=== PATIENT | male | born 1970 | race Caucasian/White ===

== ENCOUNTER → 2018-01-05 08:31 | Outpatient (POV) | payer MEDICARE, MEDICAID, SELFPAY | PROVIDERS: Visit Provider Nurse Practitioner Acute Care | DX: Z00.00 Encounter for general adult medical examination without abnormal findings (principal) ==

== ENCOUNTER → 2018-07-10 17:23 | Outpatient (CLI) | payer MEDICARE, MEDICAID, SELFPAY ==
[2018-07-10 17:46] LABS: Basophils # 0.1 K/mm3 (0-0.2); Basophils % 0.8 % (0.1-2.0); Eosinophils # 0.1 K/mm3 (0.0-0.4); Eosinophils % 1.6 % (0.1-12.0); Hematocrit 47.6 % (42.0-52.0); Hemoglobin 16.2 g/dL (14.1-18.0); Lymphocytes # 1.3 K/mm3 (0.7-4.5); Lymphocytes % 19.2 % (10-50); Mean Corpuscular Hemoglobin 32.5 pg (27.0-31.2); Mean Corpuscular Volume 95.8 fl (80-94); Mean Platelet Volume 8.1 fl (7.4-10.4); Monocytes # 0.4 K/mm3 (0.1-1.0); Monocytes % 5.1 % (1.7-9.3); Neutrophils # 4.9 K/mm3 (1.8-7.8); Neutrophils % 73.3 % (37.0-80.0); Platelet Count 224 K/mm3 (142-424); Red Blood Count 4.97 M/mm3 (4.60-6.20); Red Cell Distribution Width 12.7 % (11.5-17.5); White Blood Count 6.7 K/mm3 (4.8-10.8)
[2018-07-10 17:56] LABS: Alanine Aminotransferase 89 U/L (12-78); Albumin Level 4.7 gm/dL (3.4-5.0); Albumin/Globulin Ratio 1.2 (1.1-1.8); Alkaline Phosphatase 97 U/L (46-116); Anion Gap 12.8 mEq/L (5-15); Aspartate Amino Transferase 79 U/L (15-37); Bilirubin,Total 0.5 mg/dL (0.2-1.0); Blood Urea Nitrogen 24 mg/dL (7-18); Calcium 9.6 mg/dL (8.5-10.1); Carbon Dioxide 35 mmol/L (21.0-32.0); Chloride 95 mmol/L (98-107); Creatinine,Serum 1.38 mg/dL (0.70-1.30); Estimated Glomerular Filt Rate 55 ml/min (>60); GFR (African American) 67 ML/MIN (>60); Globulin 3.8 gm/dl (1.3-3.2); Glucose 112 mg/dL (74-106); Lipase 67 u/L (73-393); Potassium 3.8 mmoL/L (3.5-5.1); Sodium 139 mmol/L (136-145); Total Protein,Serum 8.5 gm/dL (6.4-8.2)
== END ==
PROVIDERS: Visit Provider Emergency Medicine
DX: B17.9 Acute viral hepatitis, unspecified (principal); K21.9 Gastro-esophageal reflux disease without esophagitis; M19.90 Unspecified osteoarthritis, unspecified site
CPT/HCPCS: 80053; 83690; 85025

== ENCOUNTER → 2018-07-21 08:24 | Outpatient (CLI) | payer MEDICARE, MEDICAID, SELFPAY ==
--- NOTE | 2018-07-21 08:27 | US_ITS ---
US gallbladder HISTORY: Vomiting and abdominal pain ITS.REASON: nausea ORDERING PHYSICIAN: Koffi Daniels MD PATIENT AGE: 48 years Comparison: None FINDINGS: There is moderate distention of the stomach. PANCREAS: Unremarkable. No obvious mass or abnormal fluid collection. No ductal dilatation LIVER: No focal liver lesions demonstrated. Homogeneous echogenicity. No intrahepatic biliary ductal dilatation evident RIGHT KIDNEY: Unremarkable. Normal size and echogenicity. No hydronephrosis GALLBLADDER: The gallbladder is small with mild thickening of the gallbladder wall at 3 mm. No obvious stones. There is questionable pericholecystic fluid. Common bile duct is normal at 3 mm. IMPRESSION: 1. Gastric distention 2. Contracted gallbladder with mildly thickened wall.
== END ==
PROVIDERS: PCP Emergency Medicine; Visit Provider Emergency Medicine
DX: R11.2 Nausea with vomiting, unspecified (principal)
CPT/HCPCS: 76705

== ENCOUNTER 2018-09-27 09:40 | Inpatient (IN) ==
--- NOTE | 2018-09-27 10:05 | Emergency Department Note ---
ED Disposition Clinical Impression: Jaundice, Hepatitis C, Acute hepatitis Disposition: Admitted as Observation Condition on Discharge: Fair Instructions: Hepatitis C Additional Instructions: See Dr. Evelio wiley in his office to discuss new findings related to your hepatitis c Prescriptions: Ondansetron HCl [Zofran 8mg Tab] 8 mg PO TID 3 Days #10 tab Referrals: Provider,Referral, [Referring] - Time of Disposition: 13:22 - Critical Care Critical Care Time: No Attestation: On 09/27/18, the high probability of a clinically significant, sudden or life threatening deterioration of the following system(s) required my full and direct attention, intervention and personal management. The time I documented below is in addition to time spent performing reported procedures but includes the following listed in this critical care notation. Medical Decision Making - Medical Records Medical records reviewed: Yes: I reviewed the patient's medical records. - Krishna Inquiry Pt receiving controlled substance: No Krishna was queried for this patient: No Vital Signs: 09/27/18 09:41 09/27/18 11:41 09/27/18 13:18 Temperature 97.8 F Temperature Source Oral Pulse Rate [Left Radial] 49 L 46 L 43 L Respiratory Rate 16 Blood Pressure [Right Arm] 119/67 139/72 117/67 Blood Pressure Mean [Right Arm] 84 94 83 Blood Pressure Source [Right Arm] Automatic Cuff Blood Pressure Position [Right Arm] Sitting 02 Sat by Pulse Oximetry 99 99 98 Oxygen Delivery Method Room Air - Lab Data Lab results reviewed: Yes: I reviewed the patient's lab results. Lab Results 09/27/18 10:02: WBC 8.3, RBC 4.19 L, Hgb 13.1 L, Hct 41.2 L, MCV 98.3 H, MCH 31.1, MCHC 31.7 L, RDW 16.7, Plt Count 305, MPV 7.9, Neut % (Auto) 55.6, Lymph % (Auto) 28.3, [place] % (Auto) 11.4 H, Eos % (Auto) 3.7, Baso % (Auto) 1.0, Neut # (Auto) 4.6, Lymph # (Auto) 2.4, [place] # (Auto) 1.0, Eos # (Auto) 0.3, Baso # (Auto) 0.1 09/27/18 10:02: Sodium 139, Potassium 4.7, Chloride 108 H, Carbon Dioxide 20 L, Anion Gap 15.7 H, BUN 19 H, Creatinine 1.00, Estimated Creat Clear 82, Estimated GFR 80, Est GFR ( Amer) 97, Glucose 103, Calcium 8.2 L, Total Bilirubin 15.5 H*, AST 1366 H*, ALT 2188 H*, Alkaline Phosphatase 109, Total Protein 6.8, Albumin 2.9 L, Globulin 3.9 H, Albumin/Globulin Ratio 0.7 L, Amylase 65, Lipase 247 Result diagrams: 09/27/18 10:02 09/27/18 10:02 Orders (Tests/Meds): ED MEDICATIONS Discontinued Medications Generic Name Dose Route Start Last Admin Trade Name Freq PRN Reason Stop Dose Admin Sodium Chloride 1,000 mls @ 2,000 mls/hr 09/27/18 10:00 09/27/18 10:24 Sod Chlor 0.9% 1000ml Bag IV 09/27/18 10:29 2,000 mls/hr .Q30M AUGUST Administration Ioversol 75 ml 09/27/18 12:37 09/27/18 12:38 Rad-Optiray 350 100ml Vial IV 09/27/18 12:38 75 ml ONCE ONE Administration Protocol Methylprednisolone Sodium Succinate 125 mg 09/27/18 13:21 09/27/18 13:26 Solu-Medrol 125mg/2ml Vial IV 09/27/18 13:22 125 mg ONCE ONE Administration Ondansetron HCl 4 mg 09/27/18 10:00 09/27/18 10:24 Zofran 4mg/2ml Vial IV 09/27/18 10:01 4 mg ONCE ONE Administration Sodium Chloride 10 ml 09/27/18 12:37 09/27/18 12:38 Rad-Saline Flush 10ml Syringe IV 09/27/18 12:38 10 ml ONCE ONE Administration ORDERS Category Date Time Status Hep A Ab, Total Stat Lab 09/27/18 10:02 Received - Physician Consults Physician Consulted: evelio Time: 13:38 Reason -: Admission - Reevaluation(s) Time: 13:25 Reevaluation #1: no nausea nor pain. "ready to go home". lfts and bilirubin are elevated, no obstructive changes seen on CT General Adult HPI - General Chief complaint: Nausea/Vomiting/Diarrhea Stated complaint: n/v Time Seen by Provider: 09/27/18 10:02 Mode of Arrival: EMS Source of Information: Patient Limitations: No Limitations Description of Symptoms (Recalled from ER Triage Doc. by RN): c/o nausea and vomiting last night. States he was suppose to f/u with Evelio for his gallbladder to be taken out. States he went to senior care and was unable to get this done. - History of Present Illness HPI narrative: n/v all night he states. History of hepatitis C, ? no specialist care yet. - Related Data Home Medications Medication Instructions Recorded Confirmed Atorvastatin Calcium [Atorvastatin 40 mg PO HS 12/11/17 08/18/18 40mg Tab] Escitalopram Oxalate [Lexapro] 10 mg PO DAILY 12/11/17 08/18/18 Fluticasone Propionate [Flovent 50 mcg IH DAILY 12/11/17 08/18/18 Diskus] Fluticasone/Vilanterol [Breo 1 each IH DAILY 12/11/17 08/18/18 Ellipta 100-25 Mcg INH] Phenytoin Sodium Extended 200 mg PO BID 12/11/17 08/18/18 [Phenytek] Ropinirole HCl 1 mg PO HS 12/11/17 08/18/18 buprenorphine 8 mg-naloxone 2 mg 1 tab SUBLINGUAL BID tab 07/10/18 08/18/18 sublingual tablet fluticasone furoate 200 1 inh INHALATION DAILY 08/15/18 08/18/18 mcg-vilanterol 25 mcg/dose inhalation powder Diclofenac Sodium [Voltaren 100gm 2 g TOPICAL QID 08/18/18 08/18/18 Topical Gel] Dicyclomine HCl [Bentyl 10mg 10 mg PO BID 08/18/18 08/18/18 capsule] Previous Rx's Medication Instructions Recorded Ondansetron [Zofran 4mg ODT] 4 mg PO Q8HP PRN #20 tab.rapdis 06/23/18 buspirone 30 mg tablet 30 mg PO BID #180 tab 07/21/18 esomeprazole magnesium 40 mg 40 mg PO DAILY #30 cap 08/19/18 capsule,delayed release mometasone 50 mcg/actuation nasal 2 spray INTRANASAL DAILY #17 g 08/19/18 spray quetiapine ER 50 mg 50 mg PO HS #30 tab 08/19/18 tablet,extended release 24 hr Ondansetron HCl [Zofran 8mg Tab] 8 mg PO TID 3 Days #10 tab 09/27/18 Allergies Allergy/AdvReac Type Severity Reaction Status Date / Time fluoxetine [From Prozac] Allergy Verified 08/15/18 09:11 [facility] History - Hepatitis A Screen Drug use history?: No High risk sexual behaviors?: No History of sexually transmitted infection?: No Currently employed?: No Childcare worker?: No Do you have indoor plumbing?: Yes Do you have electricity?: Yes Attestation statement:: This patient has been screened for Hepatitis A risk factors. I have reviewed the patient's past medical history: Yes 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: Reports:: Anxiety, Chronic Obstructive Pulmonary Disease (COPD), Depression, Seizures Denies:: Cancer, Diabetes Mellitus Type 1, Diabetes Mellitus Type 2, Hypertension, MRSA Other 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: Reports: Arthritis Laterality Cases: Right: Arthroscopy Knee, Bilateral: Arthroscopy Shoulder Other Surgeries: Yes: Other Amputation: No Fractures: Yes - 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 Smoking Status: Current every day smoker Tobacco Type: cigarettes # Packs/Day (cigarettes): 1 Alcohol Intake: never Substance Use Type: marijuana, former substance user, methamphetamine Occupational Status: disabled Housing: house - Psychiatric History Expresses thoughts of harming self/others: None Suicide Plan Description: No Plan Pschychiatric History:: Reports:: Anxiety, Depression Family Hx:: Cancer ROS Obtained: Yes All systems reviewed & no additional complaints - Constitutional Constitutional: Reports chills, Reports fever(s) - Cardiovascular Cardiovascular: Denies chest pain, Denies chest pain at rest, Denies diaphoresis, Denies dyspnea - Respiratory Respiratory: No chest congestion, No cough, No dyspnea on exertion - Gastrointestinal Gastrointestingal: Reports: abdominal pain, nausea, vomiting. Denies: diarrhea - Genitourinary Male Genitourinary: Denies flank pain, Denies hematuria - Musculoskeletal Musculoskeletal: Denies joint pain, Denies joint stiffness, Denies joint swelling - Integumentary/Breasts Skin/Breast: Denies rash, Denies skin pain - Neurologic Neurologic: Denies abnormal speech, Denies confusion - Hematologic/Lymphatic Henatologic/Lymphatic: Denies easy bleeding, Denies easy bruising Physical Exam - General General appearance: alert, in no apparent distress - Head Head exam: atraumatic, normocephalic, normal inspection - Eye Eye exam: Present: jaundice - ENT ENT exam: Present: normal exam, normal oropharynx, mucous membranes moist, TM's normal bilaterally, normal external ear exam - Neck Neck exam: Present: normal inspection, full ROM, trachea midline. Absent: meningismus, lymphadenopathy - Chest Chest inspection: Present: normal inspection, symmetric chest wall rise. Absent: tenderness - Respiratory Respiratory exam: Present: normal lung sounds bilaterally. Absent: respiratory distress - Cardiovascular Cardiovascular exam: Present: regular rate, normal rhythm. Absent: JVD - Abdominal Exam Abdominal exam: Present: soft, tenderness. Absent: distention, hernia Abdominal tenderness: Present: diffuse, mild - Extremities Exam Extremities exam: Present: normal inspection, full ROM, normal capillary refill. Absent: calf tenderness - Back Exam Back exam: Present: normal inspection. Absent: tenderness - Neurological Exam Neurological exam: Present: alert, oriented X3 - Psychiatric Psychiatric exam: Present: normal affect, normal mood - Skin Skin exam: Present: other (skin without lesions, sclera are icteric)
[2018-09-27 10:11] LABS: Basophils # 0.1 K/mm3 (0-0.2); Eosinophils # 0.3 K/mm3 (0.0-0.4); Eosinophils % 3.7 % (0.1-12.0); Hematocrit 41.2 % (42.0-52.0); Hemoglobin 13.1 g/dL (14.1-18.0); Lymphocytes # 2.4 K/mm3 (0.7-4.5); Lymphocytes % 28.3 % (10-50); Mean Corpuscular HGB Conc 31.7 g/dL (31.8-35.4); Mean Corpuscular Hemoglobin 31.1 pg (27.0-31.2); Mean Corpuscular Volume 98.3 fl (80-94); Mean Platelet Volume 7.9 fl (7.4-10.4); Monocytes % 11.4 % (1.7-9.3); Neutrophils # 4.6 K/mm3 (1.8-7.8); Neutrophils % 55.6 % (37.0-80.0); Platelet Count 305 K/mm3 (142-424); Red Blood Count 4.19 M/mm3 (4.60-6.20); Red Cell Distribution Width 16.7 % (11.5-17.5); White Blood Count 8.3 K/mm3 (4.8-10.8)
[2018-09-27 10:26] LABS: Albumin Level 2.9 gm/dL (3.4-5.0); Albumin/Globulin Ratio 0.7 (1.1-1.8); Anion Gap 15.7 mEq/L (5-15); Bilirubin,Total 15.5 mg/dL (0.2-1.0); Calcium 8.2 mg/dL (8.5-10.1); Globulin 3.9 gm/dl (1.3-3.2); Total Protein,Serum 6.8 gm/dL (6.4-8.2)
[2018-09-27 10:37] LABS: Potassium 4.7 mmoL/L (3.5-5.1)
--- NOTE | 2018-09-27 14:49 | Pharmacy Consult Notes ---
[facility] VTE Monitoring - Patient Demographics Admission date: 09/27/18 Report Date: 09/27/18 Time: 14:48 Allergies/Adverse Reactions: Patient Allergies fluoxetine [From Prozac] Allergy (Verified 08/15/18 09:11) Height: 1.68 m Weight: 61.774 kg Patient Problems: Current Active Problems (Updated 09/27/18 @ 13:37 by Koffi Gordillo MD) Acute hepatitis (Acute) Jaundice (Acute) Hepatitis C (Acute) - VTE Risk Labs: VTE Related Lab Results Hgb 13.1 g/dL (14.1-18.0) L 09/27/18 10:02 Hct 41.2 % (42.0-52.0) L 09/27/18 10:02 Plt Count 305 K/mm3 (142-424) 09/27/18 10:02 BUN 19 mg/dL (7-18) H 09/27/18 10:02 Creatinine 1.00 mg/dL (0.70-1.30) 09/27/18 10:02 Estimated Creat Clear 82 mL/min (50-200) 09/27/18 10:02 Was VTE Risk Assessment Performed: No VTE Score: 1 VTE Risk Level: Very Low Risk - Prophylaxis VTE Prophylaxis Ordered?: Yes Types of VTE Prophylaxis: TEDS Knee High Location of Applied Device: Bilateral Lower Extremeties
--- NOTE | 2018-09-27 20:20 | History & Physical Report ---
*Admission Date: 09/27/18 *Chief complaint: vomiting *History of present illness: this pt presented to the ed with hx of n/v with hx of hep a in past - pt also with hx of gb disease- o nausea and vomiting last night. States he was suppose to f/u with Jeremiah for his gallbladder to be taken out. States he went to snf and was unable to get this done.pt was found to have marked elevated lft and abn ct [facility] History I have reviewed the patient's past medical history: Yes 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: Reports:: Anxiety, Chronic Obstructive Pulmonary Disease (COPD), Depression, Seizures Denies:: Cancer, Diabetes Mellitus Type 1, Diabetes Mellitus Type 2, Hypertension, MRSA *Have you ever received a pneumonia vaccine?: No *Have you received a flu vaccine this season?: No Other 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: Reports: Arthritis Laterality Cases: Right: Arthroscopy Knee, Bilateral: Arthroscopy Shoulder Other Surgeries: Yes: Other Amputation: No Fractures: Yes (nose) - *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 Educational Level: Completed High School Smoking Status: Current every day smoker Tobacco Type: cigarettes # Packs/Day (cigarettes): 1 Alcohol Intake: never Substance Use Type: marijuana, former substance user, methamphetamine *Occupational Status:: disabled Housing: apartment Household Members: none *Travel in the last 8 weeks: None - Psychiatric History Expresses thoughts of harming self/others: None Suicide Plan Description: No Plan Pschychiatric History:: Reports:: Anxiety, Depression Family Hx:: Cancer Review of Systems - Review of Systems Review of systems:: pertinent systems reviewed and negative unless documented below - Constitutional Denies fever(s) - Eyes Denies change in vision - ENT Denies sore throat - *Cardiovascular Denies chest pain at rest - *Respiratory Denies cough - *Gastrointestinal Reports abdominal pain, Reports nausea, Reports vomiting - *Genitourinary Denies blood in urine - *Musculoskeletal Denies joint pain - Integumentary/Breasts Denies rash - *Neurologic Denies abnormal speech, Denies confusion Meds Home Medications Medication Instructions Recorded Confirmed Type Atorvastatin Calcium [Atorvastatin 40 mg PO HS 12/11/17 09/27/18 History 40mg Tab] Escitalopram Oxalate [Lexapro] 10 mg PO DAILY 12/11/17 09/27/18 History Fluticasone Propionate [Flovent 50 mcg IH DAILY 12/11/17 09/27/18 History Diskus] Phenytoin Sodium Extended 200 mg PO BID 12/11/17 09/27/18 History [Phenytek] Ropinirole HCl 1 mg PO HS 12/11/17 09/27/18 History Ondansetron [Zofran 4mg ODT] 4 mg PO Q8HP PRN #20 tab.rapdis 06/23/18 09/27/18 Rx buspirone 30 mg tablet 30 mg PO BID #180 tab 07/21/18 09/27/18 Rx fluticasone furoate 200 1 inh INHALATION DAILY 08/15/18 09/27/18 History mcg-vilanterol 25 mcg/dose inhalation powder Diclofenac Sodium [Voltaren 100gm 2 g TOPICAL QID 08/18/18 09/27/18 History Topical Gel] Dicyclomine HCl [Bentyl 10mg 10 mg PO BID 08/18/18 09/27/18 History capsule] esomeprazole magnesium 40 mg 40 mg PO DAILY #30 cap 08/19/18 09/27/18 Rx capsule,delayed release quetiapine ER 50 mg 50 mg PO HS #30 tab 08/19/18 09/27/18 Rx tablet,extended release 24 hr Mometasone Furoate [Nasonex] 2 spray INTRANASAL DAILY 09/27/18 09/27/18 History Allergies Allergy/AdvReac Type Severity Reaction Status Date / Time fluoxetine [From [facility]] Allergy Verified 08/15/18 09:11 Exam Vital signs and Labs for Last 24 Hours: Temp Pulse Resp BP Pulse Ox 97.9 F 41 L 18 114/56 L 97 09/27/18 19:44 09/27/18 19:44 09/27/18 19:44 09/27/18 19:44 09/27/18 19:44 Laboratory Results - last 24 hr 09/27/18 10:02: WBC 8.3, RBC 4.19 L, Hgb 13.1 L, Hct 41.2 L, MCV 98.3 H, MCH 31.1, MCHC 31.7 L, RDW 16.7, Plt Count 305, MPV 7.9, Neut % (Auto) 55.6, Lymph % (Auto) 28.3, [place] % (Auto) 11.4 H, Eos % (Auto) 3.7, Baso % (Auto) 1.0, Neut # (Auto) 4.6, Lymph # (Auto) 2.4, [place] # (Auto) 1.0, Eos # (Auto) 0.3, Baso # (Auto) 0.1 09/27/18 10:02: Sodium 139, Potassium 4.7, Chloride 108 H, Carbon Dioxide 20 L, Anion Gap 15.7 H, BUN 19 H, Creatinine 1.00, Estimated Creat Clear 82, Estimated GFR 80, Est GFR ( Amer) 97, Glucose 103, Calcium 8.2 L, Total Bilirubin 15.5 H*, AST 1366 H*, ALT 2188 H*, Alkaline Phosphatase 109, Total Protein 6.8, Albumin 2.9 L, Globulin 3.9 H, Albumin/Globulin Ratio 0.7 L, Amylase 65, Lipase 247 I & O for Last 24 hours: Intake & Output 09/25/18 09/26/18 09/27/18 09/28/18 11:59 11:59 11:59 11:59 Intake Total 1244 / 1244 Balance 1244 / 1244 Weight 138 lb 136 lb 3 oz - Constitutional no acute distress - *Routine HEENT Exam Head: Present: normocephalic Eye: Present: EOMI, PERRL, conjunctival icterus ENT: Present: mucous membranes dry - *Routine Neck Exam Absent: JVD - *Routine Respiratory Exam Present: CTA bilaterally - *Routine Cardiovascular Exam Present: RRR. Absent: murmur - *Routine Abdominal Exam Present: soft, tenderness. Absent: organomegaly - *Routine Extremities Exam Present: full ROM - *Routine Skin Exam Present: intact - *Routine Neurological Exam Present: alert, oriented X3, CN II-XII intact, moving all extremities. Absent: sensory deficit, motor deficit, asterixis - Routine Psychiatric Exam Present: normal affect Assessment and Plan (1) Acute hepatitis Current visit: Yes Status: Acute Category: Medical Code(s): B17.9 - Acute viral hepatitis, unspecified (2) Tobacco use Current visit: Yes Status: Acute Category: Medical Code(s): Z72.0 - Tobacco use
[2018-09-28 06:28] LABS: Basophils % 0.2 % (0.1-2.0); Eosinophils % 0.2 % (0.1-12.0); Hematocrit 41.5 % (42.0-52.0); Hemoglobin 12.9 g/dL (14.1-18.0); Lymphocytes # 0.8 K/mm3 (0.7-4.5); Lymphocytes % 10.4 % (10-50); Mean Corpuscular Hemoglobin 30.9 pg (27.0-31.2); Mean Corpuscular Volume 99.6 fl (80-94); Mean Platelet Volume 8.1 fl (7.4-10.4); Monocytes # 0.3 K/mm3 (0.1-1.0); Monocytes % 3.9 % (1.7-9.3); Neutrophils # 6.9 K/mm3 (1.8-7.8); Neutrophils % 85.4 % (37.0-80.0); Platelet Count 271 K/mm3 (142-424); Red Blood Count 4.17 M/mm3 (4.60-6.20)
[2018-09-28 07:06] LABS: Albumin Level 2.4 gm/dL (3.4-5.0); Bilirubin,Direct 9.6 mg/dL (0.0-0.2); Bilirubin,Indirect 2.5 mg/dL (0.0-0.9); Bilirubin,Total 12.1 mg/dL (0.2-1.0); Total Protein,Serum 6.1 gm/dL (6.4-8.2)
[2018-09-28 09:13] LABS: Anisocytosis 1+; Lymphocytes % 7 % (10-50); Macrocytosis 2+; Monocytes % 3 % (2-9); Neutrophils % 88 % (42-76); Total Cells Counted 100
--- NOTE | 2018-09-28 15:20 | Progress Note ---
Internal Medicine - PN: Subj *Date: 09/28/18 *Time: 20:35 Interval history: doing better - u/s og gb today - uncertain as to etiology - Exam Vital signs and Labs for Last 24 Hours: Temp Pulse Resp BP Pulse Ox 97.9 F 40 L 16 107/45 L 98 09/28/18 08:00 09/28/18 08:00 09/28/18 08:00 09/28/18 08:00 09/28/18 08:00 Laboratory Results - last 24 hr 09/28/18 06:00: WBC 8.0, RBC 4.17 L, Hgb 12.9 L, Hct 41.5 L, MCV 99.6 H, MCH 30.9, MCHC 31.0 L, RDW 17.0, Plt Count 271, MPV 8.1, Neut % (Auto) 85.4 H, Lymph % (Auto) 10.4, [place] % (Auto) 3.9, Eos % (Auto) 0.2, Baso % (Auto) 0.2, Neut # (Auto) 6.9, Lymph # (Auto) 0.8, [place] # (Auto) 0.3, Eos # (Auto) 0.0, Baso # (Auto) 0.0, Total Counted 100, Neutrophils % (Manual) 88 H, Band Neutrophils % 2.0, Lymphocytes % (Manual) 7 L, Monocytes % (Manual) 3, Platelet Estimate Clumped, Anisocytosis 1+, Macrocytosis 2+ 09/28/18 06:00: Sodium 141, Potassium 4.0, Chloride 111 H, Carbon Dioxide 17 L, Anion Gap 17.0 H, BUN 14 D, Creatinine 1.01, Estimated Creat Clear 82, Estimated GFR 80, Est GFR ( Amer) 96, Glucose 176 H D, Calcium 8.0 L, Total Bilirubin 12.1 H*, Direct Bilirubin 9.6 H, Indirect Bilirubin 2.5 H, AST 693 H* D, ALT 1553 H*, Alkaline Phosphatase 80, Total Protein 6.1 L, Albumin 2.4 L D I & O for Last 24 hours: Intake & Output 09/26/18 09/27/18 09/28/18 09/29/18 11:59 11:59 11:59 11:59 Intake Total 3784 / 3784 720 / 720 Output Total 500 / 500 Balance 3284 / 3284 720 / 720 Weight 138 lb 140 lb 1 oz - Constitutional no acute distress, thin - *Routine HEENT Exam Head: Present: normocephalic Eye: Present: EOMI, PERRL, conjunctival icterus ENT: Present: mucous membranes dry - *Routine Neck Exam Absent: JVD - *Routine Respiratory Exam Absent: respiratory distress - *Routine Cardiovascular Exam Present: RRR - *Routine Abdominal Exam Present: soft - *Routine Extremities Exam Present: full ROM - *Routine Skin Exam Present: intact - *Routine Neurological Exam Present: alert, oriented X3, CN II-XII intact - Routine Psychiatric Exam Present: normal affect Assessment and Plan (1) Acute hepatitis Current visit: Yes Status: Acute Category: Medical Code(s): B17.9 - Acute viral hepatitis, unspecified (2) Tobacco use Current visit: Yes Status: Acute Category: Medical Code(s): Z72.0 - Tobacco use
--- NOTE | 2018-09-28 15:41 | Procedure Note ---
[facility] Procedure Note Procedure Note:: Gastroenterology Consultation Date of Service-September 28, 2018 History of Present Illness: Mr. Clifton is a 48-year-old gentleman with the onset of jaundice over the last couple of months. He reports icteric sclera, darkened urine and acholic stools. The patient also reports more recent nausea, low-grade fever and fatigue. The patient reports no recent IV drug use. He formerly used methamphetamines. He reports no alcohol use in years. He eats at home and reports no family history of recent viral illness or hepatitis A. The patient does report some weight loss and headaches. He has lost some weight. He was admitted due to jaundice and hepatitis. His ALT level was 2188 with AST 1366. These did decline since yesterday. He does take Advil. His total bilirubin was 15.5. He reports no recent overuse of Tylenol. The patient did have some abdominal discomfort but none presently. The patient did have a CT scan of the abdomen and pelvis that showed mild periportal edema with mild fluid in the gallbladder fossa and nondistended fluid-filled loops of small bowel. Past 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: 1. Anxiety/depression 2. Seizure disorder 3. GERD 4. Hyperlipidemia 5. Tobacco abuse with early COPD Past 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: 1. Knee arthroscopy 2. Shoulder arthroscopy Medications: 1. Atorvastatin 2. Lexapro 3. Phenytoin 4. Buspirone 5. Ropinirole 6. Fluticasone 7. Diclofenac 8. Bentyl 9. Esomeprazole ALLERGIES: Fluoxetine 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: The patient lives in [place]. He is single. He reports no alcohol but smokes 1 pack of cigarettes daily Family History: Noncontributory Review of Systems: See chart Physical Exam: Physical Examination: Gen.: The patient is a well-developed well-nourished individual in no acute distress HEENT: Moderately icteric sclera, normocephalic/atraumatic extraocular movements are intact Neck: Supple no lymphadenopathy Chest: Clear to auscultation Cardiovascular: Regular rate and rhythm Abdomen: Normoactive bowel sounds soft, liver firm and palpable but not enlarged, mild right upper quadrant tenderness with no masses Extremities: No edema Labs: AST 1366, ALT 2188, total bilirubin 15.5, albumin 2.9, amylase 65, lipase 247 Radiology: See CAT scan report above Impression/Plan: 1. Acute hepatitis/acute hepatocellular injury with jaundice. I do suspect acute viral hepatitis and it will be important to check viral serologies. This is suspicious for hepatitis A. At the onset of jaundice, the patient is no longer infectious. It is important to make sure that the total bilirubin declines and is not progressed towards liver failure. There can be slow resolution of her 6 to 8 weeks and there can also be reactivation at 5 to 6 months. After this, the injury will resolve. It is important to avoid NSAIDs and only use very low-dose Tylenol. He is already avoiding alcohol. I would like to make sure that he does not over ingest Tylenol. If the hepatocellular injury fails to resolve, he will need biopsy. I will have him follow-up in the office in the next couple of weeks.
[2018-09-29 07:23] LABS: Basophils % 0.1 % (0.1-2.0); Eosinophils % 0.4 % (0.1-12.0); Hematocrit 35.8 % (42.0-52.0); Hemoglobin 11.1 g/dL (14.1-18.0); Lymphocytes # 1.9 K/mm3 (0.7-4.5); Lymphocytes % 21.4 % (10-50); Mean Corpuscular Hemoglobin 30.9 pg (27.0-31.2); Mean Corpuscular Volume 99.8 fl (80-94); Mean Platelet Volume 8.3 fl (7.4-10.4); Monocytes # 0.6 K/mm3 (0.1-1.0); Monocytes % 7.2 % (1.7-9.3); Neutrophils # 6.3 K/mm3 (1.8-7.8); Platelet Count 284 K/mm3 (142-424); Red Blood Count 3.59 M/mm3 (4.60-6.20); Red Cell Distribution Width 17.5 % (11.5-17.5); White Blood Count 8.9 K/mm3 (4.8-10.8)
[2018-09-29 08:00] LABS: Albumin Level 2.2 gm/dL (3.4-5.0); Anion Gap 12.3 mEq/L (5-15); Bilirubin,Direct 7.1 mg/dL (0.0-0.2); Bilirubin,Indirect 1.5 mg/dL (0.0-0.9); Bilirubin,Total 8.6 mg/dL (0.2-1.0); Calcium 7.3 mg/dL (8.5-10.1); Potassium 4.3 mmoL/L (3.5-5.1); Total Protein,Serum 5.4 gm/dL (6.4-8.2)
[2018-09-29 08:23] LABS: Hepatitis B Core Antibody IgM Positive (Negative)
--- NOTE | 2018-09-29 08:53 | Discharge Summary ---
General - General Admission date:: 09/27/18 Discharge date: 09/29/18 HPI HPI: this pt presented to the ed with hx of n/v with hx of hep a in past - pt also with hx of gb disease- o nausea and vomiting last night. States he was suppose to f/u with [facility] for his gallbladder to be taken out. States he went to skilled nursing and was unable to get this done.pt was found to have marked elevated lft and abn ct Hospital Course Hospital Course: Patient admitted for elevated liver enzymes. 09/27/18- 09/28/18 09/29/18 Total bili 15.5 12.1 8.6 alt- 2188 1533 1184 ast- 1366 693 374 Was seen by Gi-Impression/Plan: 1. Acute hepatitis/acute hepatocellular injury with jaundice. I do suspect acute viral hepatitis and it will be important to check viral serologies. This is suspicious for hepatitis A. At the onset of jaundice, the patient is no longer infectious. It is important to make sure that the total bilirubin declines and is not progressed towards liver failure. There can be slow resolution of her 6 to 8 weeks and there can also be reactivation at 5 to 6 months. After this, the injury will resolve. It is important to avoid NSAIDs and only use very low-dose Tylenol. He is already avoiding alcohol. I would like to make sure that he does not over ingest Tylenol. If the hepatocellular injury fails to resolve, he will need biopsy. I will have him follow-up in the office in the next couple of weeks. US gallbladder-IMPRESSION: Mild prominence of the portal vein with a mild amount of perihepatic fluid. Otherwise negative right upper quadrant ultrasound Ct abd/pelvis w contrast-IMPRESSION: 1. Mild periportal edema with a mild amount of fluid in the gallbladder fossa and right paracolic gutter and minimal amount fluid in the pelvis nonspecific. 2. Nondistended fluid-filled loops of small bowel which may be seen with enteritis. Patient received IV fluids, GI consult, monitoring of liver enzymes, hepatitis panel and rest, patient is currently being worked up for hepatitis C through the [facility] echo clinic. Patient's liver enzymes continue to decline. Patient continues to be jaundice. Discussion with patient to avoid NSAIDs and only low doses of Tylenol. Abstain from any alcohol Or any other medications that affect the liver. Patient is to follow-up in the office next week and contact with the echo clinic regarding when to start medication treatment for his hep C after current confirmation of hepatitis. Hepatitis panel was sent out. Today patient states he feels better. Will discharge home. Objective Vital signs: Temp Pulse Resp BP Pulse Ox 98.4 F 44 L 16 91/39 L 98 09/29/18 08:00 09/29/18 08:00 09/29/18 08:00 09/29/18 08:00 09/29/18 08:00 no acute distress - *Routine HEENT Exam Head: Present: normocephalic Eye: Present: conjunctival icterus ENT: Present: mucous membranes moist - *Routine Neck Exam Present: supple, full ROM - *Routine Respiratory Exam Present: CTA bilaterally - *Routine Cardiovascular Exam Present: RRR - *Routine Abdominal Exam Present: soft, normoactive bowel sounds. Absent: tenderness - *Routine Extremities Exam Present: full ROM - *Routine Skin Exam Present: intact, jaundice - *Routine Neurological Exam Present: alert, oriented X3 - Routine Psychiatric Exam Present: normal affect Results Labs on day of discharge: Labs from last 24 hours 09/29/18 09/29/18 09/28/18 07:04 07:04 06:00 WBC 8.9 RBC 3.59 L Hgb 11.1 L Hct 35.8 L MCV 99.8 H MCH 30.9 MCHC 31.0 L RDW 17.5 Plt Count 284 MPV 8.3 Neut % (Auto) 71.0 Lymph % (Auto) 21.4 [place] % (Auto) 7.2 Eos % (Auto) 0.4 Baso % (Auto) 0.1 Neut # (Auto) 6.3 Lymph # (Auto) 1.9 [place] # (Auto) 0.6 Eos # (Auto) 0.0 Baso # (Auto) 0.0 Total Counted 100 Neutrophils % (Manual) 88 H Band Neutrophils % 2.0 Lymphocytes % (Manual) 7 L Monocytes % (Manual) 3 Platelet Estimate Clumped Anisocytosis 1+ Macrocytosis 2+ Sodium 143 Potassium 4.3 Chloride 113 H Carbon Dioxide 22 D Anion Gap 12.3 BUN 15 Creatinine 1.01 Estimated Creat Clear 83 Estimated GFR 80 Est GFR ( Amer) 96 Glucose 139 H Calcium 7.3 L Total Bilirubin 8.6 H Direct Bilirubin 7.1 H Indirect Bilirubin 1.5 H AST 374 H* D ALT 1184 H* Alkaline Phosphatase 86 Total Protein 5.4 L Albumin 2.2 L - Additional Comments Rounded with Dr. Daniels all orders per Jeremiah DS: Diagnosis - Discharge Diagnosis (1) Acute hepatitis Status: Acute (2) Tobacco use Status: Chronic (3) Hepatitis C Status: Chronic (4) Jaundice Status: Acute (5) Elevated liver function tests Status: Acute Discharge Plan - Patient Discharge Instructions ACTIVITY: Continue current activity DIET: continue same diet Patient Instructions: Hepatitis A, DI for Hepatitis C, How to Quit Smoking - Follow up Plan Follow up with: Koffi Daniels MD [Primary Care Provider] - Disposition: Home, Self-Prison Medications: Home Medications Medication Instructions Recorded Confirmed Type Atorvastatin Calcium [Atorvastatin 40 mg PO HS 12/11/17 09/27/18 History 40mg Tab] Escitalopram Oxalate [Lexapro] 10 mg PO DAILY 12/11/17 09/27/18 History Fluticasone Propionate [Flovent 50 mcg IH DAILY 12/11/17 09/27/18 History Diskus] Phenytoin Sodium Extended 200 mg PO BID 12/11/17 09/27/18 History [Phenytek] Ropinirole HCl 1 mg PO HS 12/11/17 09/27/18 History Ondansetron [Zofran 4mg ODT] 4 mg PO Q8HP PRN #20 tab.rapdis 06/23/18 09/27/18 Rx buspirone 30 mg tablet 30 mg PO BID #180 tab 07/21/18 09/27/18 Rx fluticasone furoate 200 1 inh INHALATION DAILY 08/15/18 09/27/18 History mcg-vilanterol 25 mcg/dose inhalation powder Diclofenac Sodium [Voltaren 100gm 2 g TOPICAL QID 08/18/18 09/27/18 History Topical Gel] Dicyclomine HCl [Bentyl 10mg 10 mg PO BID 08/18/18 09/27/18 History capsule] esomeprazole magnesium 40 mg 40 mg PO DAILY #30 cap 08/19/18 09/27/18 Rx capsule,delayed release quetiapine ER 50 mg 50 mg PO HS #30 tab 08/19/18 09/27/18 Rx tablet,extended release 24 hr Mometasone Furoate [Nasonex] 2 spray INTRANASAL DAILY 09/27/18 09/27/18 History Prescriptions/Medication Reconciliation: Continued fluticasone furoate 200 mcg-vilanterol 25 mcg/dose inhalation powder 1 inh INHALATION DAILY quetiapine ER 50 mg tablet,extended release 24 hr 50 mg PO HS #30 tab esomeprazole magnesium 40 mg capsule,delayed release 40 mg PO DAILY #30 cap buspirone 30 mg tablet 30 mg PO BID #180 tab Phenytoin Sodium Extended [Phenytek] 200 mg PO BID Fluticasone Propionate [Flovent Diskus] 50 mcg IH DAILY Diclofenac Sodium [Voltaren 100gm Topical Gel] 2 g TOPICAL QID Ropinirole HCl 1 mg PO HS Escitalopram Oxalate [Lexapro] 10 mg PO DAILY Discontinued Atorvastatin Calcium [Atorvastatin 40mg Tab] 40 mg PO HS Ondansetron [Zofran 4mg ODT] 4 mg PO Q8HP PRN #20 tab.rapdis PRN Reason: Nausea Dicyclomine HCl [Bentyl 10mg capsule] 10 mg PO BID Mometasone Furoate [Nasonex] 2 spray INTRANASAL DAILY
[2018-09-29 09:56] LABS: INR 1.21 (0.9-1.1); Prothrombin Time 12.5 seconds (9.4-11.8)
[2018-09-30 06:25] LABS: Hepatitis B Surface Antigen Positive (Negative); Hepatitis C Antibody >11.0 s/co ratio (0.0-0.9)
== END 2018-09-29 09:45 | disposition home or self-care (01) | DRG 442 ==
LOC: ER 09:40 → 2ND 09:40 → OBSVTOIN 13:40 → 2ND 14:35
PROVIDERS: ADMIT Emergency Medicine; ATTEND Emergency Medicine
CPT/HCPCS: 36415; 74177; 76705; 80048; 80053; 80074; 80076; 80185; 82150; 83690; 85007; 85025; 85610; 86708; 94640; 96365; 96366; 96375; 99284; J2405; Q9967

== ENCOUNTER → 2018-10-07 13:43 | Outpatient (CLI) | payer MEDICARE, MEDICAID, SELFPAY ==
[2018-10-09 11:34] LABS: HIV Screen 4th Generation wRfx Non Reactive (Non Reactive)
[2018-10-09 22:07] LABS: HCV Genotype Charge YES
[2018-10-16 16:09] LABS: HBV Geno CHG YES; HBV IU/mL 3490 IU/mL (.)
[2018-10-16 17:17] LABS: log10 HBV as IU/mL 3.543 (.)
== END ==
PROVIDERS: Internal Medicine Gastroenterology; Visit Provider Emergency Medicine
DX: B18.1 Chronic viral hepatitis B without delta-agent; B19.20 Unspecified viral hepatitis C without hepatic coma; Z11.4 Encounter for screening for human immunodeficiency virus [HIV]
CPT/HCPCS: 36415; 86703; 87517; 87522; 87902; 87912; G0432

== ENCOUNTER → 2018-10-19 09:01 | Outpatient (POV) | payer MEDICARE, MEDICAID, SELFPAY ==
[2018-10-19 11:07] LABS: Basophils # 0.1 K/mm3 (0-0.2); Basophils % 0.8 % (0.1-2.0); Eosinophils # 0.4 K/mm3 (0.0-0.4); Eosinophils % 3.9 % (0.1-12.0); Hemoglobin 14.6 g/dL (14.1-18.0); Lymphocytes # 3.3 K/mm3 (0.7-4.5); Lymphocytes % 31.8 % (10-50); Mean Corpuscular HGB Conc 31.8 g/dL (31.8-35.4); Mean Corpuscular Hemoglobin 33.6 pg (27.0-31.2); Mean Corpuscular Volume 105.7 fl (80-94); Mean Platelet Volume 7.8 fl (7.4-10.4); Monocytes # 0.7 K/mm3 (0.1-1.0); Monocytes % 6.5 % (1.7-9.3); Neutrophils # 5.9 K/mm3 (1.8-7.8); Neutrophils % 57.1 % (37.0-80.0); Platelet Count 205 K/mm3 (142-424); Red Blood Count 4.35 M/mm3 (4.60-6.20); Red Cell Distribution Width 16.1 % (11.5-17.5); White Blood Count 10.3 K/mm3 (4.8-10.8)
[2018-10-19 12:14] LABS: Alanine Aminotransferase 200 U/L (12-78); Albumin Level 4.2 gm/dL (3.4-5.0); Albumin/Globulin Ratio 1.1 (1.1-1.8); Alkaline Phosphatase 115 U/L (46-116); Anion Gap 16.3 mEq/L (5-15); Aspartate Amino Transferase 73 U/L (15-37); Bilirubin,Total 2.6 mg/dL (0.2-1.0); Blood Urea Nitrogen 13 mg/dL (7-18); Calcium 9.3 mg/dL (8.5-10.1); Carbon Dioxide 26 mmol/L (21.0-32.0); Chloride 103 mmol/L (98-107); Creatinine,Serum 1.14 mg/dL (0.70-1.30); Estimated Glomerular Filt Rate 69 ml/min (>60); GFR (African American) 84 ML/MIN (>60); Globulin 3.9 gm/dl (1.3-3.2); Glucose 95 mg/dL (74-106); Potassium 4.3 mmoL/L (3.5-5.1); Sodium 141 mmol/L (136-145); Total Protein,Serum 8.1 gm/dL (6.4-8.2)
== END ==
PROVIDERS: Visit Provider Nurse Practitioner Family
DX: R76.8 Other specified abnormal immunological findings in serum (principal); B18.1 Chronic viral hepatitis B without delta-agent; Z20.5 Contact with and (suspected) exposure to viral hepatitis
CPT/HCPCS: 36415; 80053; 85025

== ENCOUNTER → 2018-10-28 07:52 | Outpatient (CLI) | payer MEDICARE, MEDICAID, SELFPAY ==
--- NOTE | 2018-10-28 08:07 | US_ITS ---
US abdomen limited History:Hepatitis C, hepatitis B Ordering Physician:Lula Hein APRN Patient Age: 48 years Comparison:None Findings: Pancreas:Unremarkable. No obvious mass or abnormal fluid collection. No ductal dilatation Liver:Unremarkable. No obvious mass or abnormal fluid collection. No ductal dilatation. There is appropriate direction of blood flow within a nondilated portal pain Right Kidney:Unremarkable. Normal size and echogenicity. No hydronephrosis Gallbladder:No gallstones, pericholecystic fluid, or biliary dilatation. There is mild thickening of the gallbladder wall at 3 to 4 mm. No pericholecystic fluid evident. Impression: 1. Unremarkable appearing liver. 2. Mild nonspecific gallbladder wall thickening
== END ==
PROVIDERS: PCP Emergency Medicine; Visit Provider Nurse Practitioner Family
DX: B18.1 Chronic viral hepatitis B without delta-agent (principal); R76.8 Other specified abnormal immunological findings in serum; Z20.5 Contact with and (suspected) exposure to viral hepatitis; R13.10 Dysphagia, unspecified
CPT/HCPCS: 76705

== ENCOUNTER → 2018-11-30 09:59 | Outpatient (POV) | payer MEDICARE, MEDICAID, SELFPAY ==
[2018-11-30 10:38] LABS: Basophils # 0.1 K/mm3 (0-0.2); Basophils % 1.4 % (0.1-2.0); Eosinophils # 0.7 K/mm3 (0.0-0.4); Eosinophils % 9.7 % (0.1-12.0); Hematocrit 49.3 % (42.0-52.0); Hemoglobin 16.2 g/dL (14.1-18.0); Lymphocytes # 2.6 K/mm3 (0.7-4.5); Lymphocytes % 34.1 % (10-50); Mean Corpuscular HGB Conc 32.8 g/dL (31.8-35.4); Mean Corpuscular Hemoglobin 33.9 pg (27.0-31.2); Mean Corpuscular Volume 103.3 fl (80-94); Monocytes # 0.5 K/mm3 (0.1-1.0); Monocytes % 6.5 % (1.7-9.3); Neutrophils # 3.6 K/mm3 (1.8-7.8); Neutrophils % 48.3 % (37.0-80.0); Platelet Count 204 K/mm3 (142-424); Red Blood Count 4.77 M/mm3 (4.60-6.20); Red Cell Distribution Width 13.4 % (11.5-17.5); White Blood Count 7.5 K/mm3 (4.8-10.8)
[2018-11-30 14:12] LABS: Alanine Aminotransferase 111 U/L (12-78); Albumin Level 3.8 gm/dL (3.4-5.0); Alkaline Phosphatase 113 U/L (46-116); Anion Gap 14.8 mEq/L (5-15); Bilirubin,Total 0.6 mg/dL (0.2-1.0); Blood Urea Nitrogen 13 mg/dL (7-18); Carbon Dioxide 25 mmol/L (21.0-32.0); Chloride 107 mmol/L (98-107); Creatinine,Serum 1.05 mg/dL (0.70-1.30); Estimated Glomerular Filt Rate 76 ml/min (>60); GFR (African American) 92 ML/MIN (>60); Globulin 3.7 gm/dl (1.3-3.2); Glucose 88 mg/dL (74-106); Sodium 141 mmol/L (136-145); Total Protein,Serum 7.5 gm/dL (6.4-8.2)
[2018-11-30 14:16] LABS: Potassium 5.8 mmoL/L (3.5-5.1)
[2018-11-30 14:17] LABS: Aspartate Amino Transferase 77 U/L (15-37)
== END ==
PROVIDERS: PCP Family Medicine; Visit Provider Nurse Practitioner Family
DX: Z20.5 Contact with and (suspected) exposure to viral hepatitis (principal); R94.5 Abnormal results of liver function studies; K64.4 Residual hemorrhoidal skin tags
CPT/HCPCS: 36415; 80053; 85025

== ENCOUNTER → 2019-02-24 12:26 | Outpatient (CLI) | payer MEDICARE, MEDICAID, SELFPAY ==
[2019-02-24 12:58] LABS: Basophils # 0.1 K/mm3 (0-0.2); Basophils % 1.3 % (0.1-2.0); Eosinophils # 0.9 K/mm3 (0.0-0.4); Eosinophils % 11.3 % (0.1-12.0); Hematocrit 48.2 % (42.0-52.0); Hemoglobin 15.3 g/dL (14.1-18.0); Lymphocytes # 3.1 K/mm3 (0.7-4.5); Lymphocytes % 39.3 % (10-50); Mean Corpuscular HGB Conc 31.7 g/dL (31.8-35.4); Mean Corpuscular Hemoglobin 32.4 pg (27.0-31.2); Mean Corpuscular Volume 102.2 fl (80-94); Mean Platelet Volume 7.6 fl (7.4-10.4); Monocytes # 0.4 K/mm3 (0.1-1.0); Monocytes % 5.7 % (1.7-9.3); Neutrophils # 3.3 K/mm3 (1.8-7.8); Neutrophils % 42.5 % (37.0-80.0); Platelet Count 269 K/mm3 (142-424); Red Blood Count 4.71 M/mm3 (4.60-6.20); Red Cell Distribution Width 14.2 % (11.5-17.5); White Blood Count 7.8 K/mm3 (4.8-10.8)
[2019-02-24 13:56] LABS: Alanine Aminotransferase 45 U/L (12-78); Albumin/Globulin Ratio 1.1 (1.1-1.8); Alkaline Phosphatase 135 U/L (46-116); Anion Gap 11.4 mEq/L (5-15); Aspartate Amino Transferase 25 U/L (15-37); Bilirubin,Total 0.2 mg/dL (0.2-1.0); Blood Urea Nitrogen 9 mg/dL (7-18); Calcium 8.6 mg/dL (8.5-10.1); Carbon Dioxide 33 mmol/L (21.0-32.0); Chloride 106 mmol/L (98-107); Chol/HDL Ratio 6.4 (1-3.5); Cholesterol 174 mg/dL (140-200); Estimated Glomerular Filt Rate 80 ml/min (>60); Free T4 (Free Thyroxine) 0.71 ng/dl (0.76-1.46); GFR (African American) 97 ML/MIN (>60); Globulin 3.6 gm/dl (1.3-3.2); HDL Cholesterol 27 mg/dL (27-67); LDL Cholesterol 69 mg/dL (0-130); Potassium 4.4 mmoL/L (3.5-5.1); Sodium 146 mmol/L (136-145); Thyroid Stimulating Hormone 3.66 uIU/ml (0.358-3.740); Total Protein,Serum 7.6 gm/dL (6.4-8.2); Triglycerides 392 mg/dL (30-200); VLDL Cholesterol 78 mg/dL (0-40)
[2019-02-24 14:49] LABS: Glucose 65 mg/dL (74-106)
[2019-02-25 08:13] LABS: Vitamin D 25 Hydroxy 33.2 ng/mL (30.0-100.0)
== END ==
PROVIDERS: Visit Provider Emergency Medicine
DX: R11.2 Nausea with vomiting, unspecified (principal); E78.5 Hyperlipidemia, unspecified; R41.3 Other amnesia
CPT/HCPCS: 36415; 80053; 80061; 82652; 84439; 84443; 85025

== ENCOUNTER → 2019-04-26 13:48 | Outpatient (POV) | payer MEDICARE, MEDICAID, SELFPAY ==
[2019-04-26 17:47] LABS: Alanine Aminotransferase 177 U/L (12-78); Albumin Level 3.9 gm/dL (3.4-5.0); Albumin/Globulin Ratio 1.2 (1.1-1.8); Alkaline Phosphatase 115 U/L (46-116); Anion Gap 13.1 mEq/L (5-15); Aspartate Amino Transferase 67 U/L (15-37); Bilirubin,Total 0.2 mg/dL (0.2-1.0); Blood Urea Nitrogen 11 mg/dL (7-18); Calcium 8.6 mg/dL (8.5-10.1); Carbon Dioxide 28 mmol/L (21.0-32.0); Chloride 104 mmol/L (98-107); Creatinine,Serum 0.97 mg/dL (0.70-1.30); Estimated Glomerular Filt Rate 83 ml/min (>60); GFR (African American) 101 ML/MIN (>60); Globulin 3.2 gm/dl (1.3-3.2); Glucose 87 mg/dL (74-106); Potassium 4.1 mmoL/L (3.5-5.1); Sodium 141 mmol/L (136-145); Total Protein,Serum 7.1 gm/dL (6.4-8.2)
[2019-04-30 05:27] LABS: ALT (SGPT) P5P 171 IU/L (0-55); Alpha 2-Macroglobulins, Qn 229 mg/dL (110-276); Apolipoprotein A-1 111 mg/dL (101-178); Bilirubin, Total 0.2 mg/dL (0.0-1.2); Fibrosis Score 0.25 (0.00-0.21); Fibrosis Stage F0-F1 (.); GGT 47 IU/L (0-65); Necroinflammat Activity Grade A3-Severe activity (.); Necroinflammat Activity Score 0.75 (0.00-0.17)
[2019-04-30 09:21] LABS: Haptoglobin 116 mg/dL (23-355)
[2019-04-30 09:46] LABS: Hep B Core Ab, Total P; Hep Be Ag N; Hepatitis B Core Antibody IgM N; Hepatitis B Surface Antigen N
[2019-04-30 09:49] LABS: Hep B Surface Ab, Qual R
[2019-04-30 09:50] LABS: HBV IU/mL 478.3; Hepatitis B Surf Ab Quant 478.3; Hepatitis Be Antibody P
== END ==
PROVIDERS: PCP Emergency Medicine; Visit Provider Nurse Practitioner Family
DX: B16.9 Acute hepatitis B without delta-agent and without hepatic coma (principal); R94.5 Abnormal results of liver function studies; R19.4 Change in bowel habit; R11.0 Nausea; K21.9 Gastro-esophageal reflux disease without esophagitis
CPT/HCPCS: 36415; 80053; 81596; 86704; 86706; 86707; 87340; 87350; 87517

== ENCOUNTER 2019-09-13 20:41 | Emergency (ER) | payer MEDICARE, MEDICAID, SELFPAY ==
[2019-09-13 20:55] VITALS: BP 142/91; PULSE 68; RESP 16; TEMP 36.5; O2SAT 96; BMI 27.3
--- NOTE | 2019-09-13 21:05 | CT_ITS ---
PROCEDURE: CT ABDOMEN PELVIS W CON CLINICAL INDICATION: abdominal pain Abdominal pain, left flank pain the COMPARISON: ABDPELW CT abdomen pelvis w con from 03/19/[address] abdomen pelvis w con from 09/27/2018 TECHNIQUE: IV Contrast: 75ML OPTIRAY 350 Oral Contrast none Axial images obtained with sagittal and coronal reformats. All CT scans at the facility use one or more dose reduction, viz: automated exposure control, ma/kV adjustment per patient size (including targeted exams where dose is matched to indication, i.e. head), or iterative reconstruction technique. FINDINGS: LOWER THORAX: No acute finding ABDOMEN & PELVIS: The liver has an unremarkable appearance. There is a 15 mm hypodensity involving the spleen anteriorly which is nonspecific and may be due to a in homogeneous perfusion defect. Ultrasound may provide further evaluation. The adrenal glands, pancreas, and kidneys have an unremarkable appearance. There are few scattered small retroperitoneal and periportal lymph nodes with a periportal node measuring up to 1.4 cm the. The gallbladder is contracted. No intestinal obstruction or free air. Unremarkable appendix. There is some mild thickening of the jejunal bowel loops. No pelvic mass or abnormal fluid collection No acute bony anomalies. IMPRESSION: 1. Possible enteritis. 2. 15 mm hypodensity of the spleen nonspecific. Ultrasound may provide further evaluation. May only represent a a heterogeneous perfusion phenomenon. 3. Nonspecific nodes in the celiac region and periportal area the the Dictated by: Mikael Godoy MD 09/14/2019 06:08 Electronically signed by Mikael Godoy MD in [place] 09/14/2019 06:08
[2019-09-13 21:16] LABS: Microscopic, Urine URINE MICROSCOPIC (MICROSCOPIC)
[2019-09-13 21:18] LABS: Appearance,Urine CLEAR (Clear); Bilirubin,Urine Negative (Negative); Blood, Urine Negative (Negative); Color,Urine YELLOW (Yellow); Glucose,Urine (UA) Negative (Negative); Ketones,Urine Negative (Negative); Leukocyte Esterase,Urine Negative (Negative); Nitrate,Urine Negative (Negative); PH,Urine 5.5 (5.0-8.5); Protein,Urine Negative (Negative); Specific Gravity, Urine 1.025 (1.005-1.030); Urobilinogen,Urine 0.2 EU/dl (0.2)
[2019-09-13 21:22] LABS: Bacteria,Urine Trace /lpf; Squamous Epithelial Cell,Urine Occasional #/hpf (0-5); WBC,Urine Occasional #/hpf (0-3)
[2019-09-13 21:28] LABS: Basophils # 0.4 K/mm3 (0-0.2); Basophils % 3.7 % (0.1-2.0); Eosinophils # 0.5 K/mm3 (0.0-0.4); Eosinophils % 4.8 % (0.1-12.0); Hematocrit 48.2 % (42.0-52.0); Lymphocytes # 3.3 K/mm3 (0.7-4.5); Mean Corpuscular HGB Conc 33.3 g/dL (31.8-35.4); Mean Corpuscular Hemoglobin 32.6 pg (27.0-31.2); Mean Corpuscular Volume 97.8 fl (80-94); Mean Platelet Volume 7.3 fl (7.4-10.4); Monocytes # 0.8 K/mm3 (0.1-1.0); Neutrophils # 5.3 K/mm3 (1.8-7.8); Neutrophils % 51.5 % (37.0-80.0); Platelet Count 230 K/mm3 (142-424); Red Blood Count 4.93 M/mm3 (4.60-6.20); Red Cell Distribution Width 13.5 % (11.5-17.5); White Blood Count 10.2 K/mm3 (4.8-10.8)
[2019-09-13 21:31] LABS: Chloride 103 mmol/L (98-107); Potassium 4.1 mmoL/L (3.5-5.1); Sodium 136 mmol/L (136-145)
[2019-09-13 21:34] LABS: Alanine Aminotransferase 53 U/L (12-78); Alkaline Phosphatase 112 U/L (38-126); Amylase 96 U/L (30-110); Anion Gap 11.1 mEq/L (5-15); Aspartate Amino Transferase 45 U/L (17-59); Bilirubin,Total 0.4 mg/dl (0.2-1.3); Blood Urea Nitrogen 26 mg/dl (9-20); Calcium 8.8 mg/dl (8.4-10.2); Carbon Dioxide 26 mmol/L (22.0-30.0); Creatinine Clearance Estimated 105 mL/min (50-200); Estimated Glomerular Filt Rate 80 ml/min (>60); GFR (African American) 97 ML/MIN (>60); Glucose 101 mg/dl (74-100); Lipase 120 U/L (23-300)
[2019-09-13 21:35] LABS: Albumin Level 4.3 g/dl (3.5-5.0); Albumin/Globulin Ratio 1.3 (1.1-1.8); Globulin 3.4 g/dL (1.3-3.2); Total Protein,Serum 7.7 g/dl (6.3-8.2)
--- NOTE | 2019-09-13 21:40 | HMH.EDNVD ---
ED Disposition Clinical Impression: Acute flank pain Disposition: Home, Self-Care Condition on Discharge: Good Instructions: DI for Acute Abdomen Additional Instructions: fluids and see pcp for follow up Referrals: Koffi Daniels MD [Primary Care Provider] - - Critical Care Critical Care Time: No Attestation: On 09/13/19, the high probability of a clinically significant, sudden or life threatening deterioration of the following system(s) required my full and direct attention, intervention and personal management. The time I documented below is in addition to time spent performing reported procedures but includes the following listed in this critical care notation. Medical Decision Making - Medical Records Medical records reviewed: Yes: I reviewed the patient's medical records. - Krishna Inquiry Pt receiving controlled substance: No Vital Signs: 09/13/19 20:55 09/13/19 21:51 09/13/19 22:28 Temperature 97.7 F Temperature Source Oral Pulse Rate [Right Brachial] 68 58 L 63 Respiratory Rate 16 16 15 Blood Pressure [Right Arm] 142/91 H 126/71 135/86 Blood Pressure Mean [Right Arm] 108 89 102 Blood Pressure Source [Right Arm] Automatic Cuff Automatic Cuff Automatic Cuff Blood Pressure Position [Right Arm] Sitting Sitting Sitting 02 Sat by Pulse Oximetry 96 97 97 Oxygen Delivery Method Room Air Room Air Room Air - Lab Data Lab results reviewed: Yes: I reviewed the patient's lab results. Lab Results 09/13/19 21:13: Urine Color Yellow, Urine Appearance Clear, Urine pH 5.5, Ur Specific [place] 1.025, Urine Protein Negative, Urine Glucose (UA) Negative, Urine Ketones Negative, Urine Blood Negative, Urine Nitrate Negative, Urine Bilirubin Negative, Urine Urobilinogen 0.2, Ur Leukocyte Esterase Negative, Urine WBC Occasional, Ur Squamous Epith Cells Occasional, Urine Bacteria Trace 09/13/19 21:13: WBC 10.2, RBC 4.93, Hgb 16.0, Hct 48.2, MCV 97.8 H, MCH 32.6 H, MCHC 33.3, RDW 13.5, Plt Count 230, MPV 7.3 L, Neut % (Auto) 51.5, Lymph % (Auto) 32.0, [place] % (Auto) 8.0, Eos % (Auto) 4.8, Baso % (Auto) 3.7 H, Neut # (Auto) 5.3, Lymph # (Auto) 3.3, [place] # (Auto) 0.8, Eos # (Auto) 0.5 H, Baso # (Auto) 0.4 H 09/13/19 21:13: Sodium 136, Potassium 4.1, Chloride 103, Carbon Dioxide 26, Anion Gap 11.1, BUN 26 H, Creatinine 1.00, Estimated Creat Clear 105, Estimated GFR 80, Est GFR ( Amer) 97, Glucose 101 H, Calcium 8.8, Total Bilirubin 0.4, AST 45, ALT 53, Alkaline Phosphatase 112, Total Protein 7.7, Albumin 4.3, Globulin 3.4 H, Albumin/Globulin Ratio 1.3, Amylase 96, Lipase 120 09/13/19 21:13: SARS-CoV-2 IgG Ab (Rapid) Negative, SARS-CoV-2 IgM Ab (Rapid) Negative Result diagrams: 09/13/19 21:13 09/13/19 21:13 Orders (Tests/Meds): ED MEDICATIONS Generic Name Dose Route Start Last Admin Trade Name Freq PRN Reason Stop Dose Admin Sodium Chloride 1,000 mls @ 999 mls/hr 09/13/19 21:15 09/13/19 21:24 Sod Chlor 0.9% 1000ml Bag IV 09/13/19 22:15 999 mls/hr .Q1H1M AUGUST Administration Discontinued Medications Generic Name Dose Route Start Last Admin Trade Name Freq PRN Reason Stop Dose Admin Ioversol 75 ml 09/13/19 21:42 09/13/19 21:43 Rad-Optiray 350 100ml Vial IV 09/13/19 21:43 75 ml ONCE ONE Administration Protocol Sodium Chloride 10 ml 09/13/19 21:42 09/13/19 21:42 Rad-Saline Flush 10ml Syringe IV 09/13/19 21:43 10 ml ONCE ONE Administration ORDERS Category Date Time Status CT abdomen pelvis w con Stat Cat Scan 09/13/19 21:05 Taken - CT Data CT Scan: Abdomen, Pelvis Time Received: 22:[address] Reviewed: Yes: I have viewed the radiologist's interpretation Preliminary Findings: Abnormal (nonspecific ) Nausea/Vomiting/Diarrhea HPI - General Chief complaint: Abdominal Pain Stated complaint: weakness pain in liver hep b Time Seen by Provider: 09/13/19 21:15 Mode of Arrival: Ambulatory Source of Information: Patient, Medical Record Limitations: No Limit
[2019-09-13 21:51] VITALS: BP 126/71; PULSE 58; RESP 16; O2SAT 97
[2019-09-13 22:28] VITALS: BP 135/86; PULSE 63; RESP 15; O2SAT 97
[2019-09-13 22:48] LABS: Coronavirus 19 IgG Antibody Negative (Negative); Coronavirus 19 IgM Antibody Negative (Negative)
[2019-09-13 22:57] VITALS: BP 136/87; PULSE 61; RESP 16; TEMP 36.7; O2SAT 97
== END 2019-09-13 23:01 | disposition home or self-care (01) ==
PROVIDERS: Emergency Provider Emergency Medicine; PCP Emergency Medicine
DX: R10.12 Left upper quadrant pain (principal); R11.0 Nausea; B18.1 Chronic viral hepatitis B without delta-agent; F41.8 Other specified anxiety disorders; F17.210 Nicotine dependence, cigarettes, uncomplicated
CPT/HCPCS: 74177; 80053; 81001; 82150; 83690; 85025; 86328; 96365; 99284; Q9967

== ENCOUNTER 2019-10-06 13:41 | Emergency (ER) | payer MEDICARE, MEDICAID, SELFPAY ==
[2019-10-06 13:42] VITALS: BP 138/77; PULSE 78; RESP 20; TEMP 36.8; O2SAT 98; BMI 24.1
--- NOTE | 2019-10-06 14:13 | HMH.EDUTC ---
[facility] [place] Clinical Impression: Left elbow pain Left shoulder pain Qualifiers: Chronicity: chronic Qualified Code(s): M25.512 - Pain in left shoulder Disposition: Home, Self-Care Condition on Discharge: Good Instructions: DI for Elbow Pain Additional Instructions: Rest the extremity, Elevate the extremity as tolerated while you are resting. Take ibuprofen for pain. I sent in a prescription to your pharmacy. Follow up with Dr. Sotomayor (orthopedics). I put in a referral but you need to call his office and schedule an appointment. Follow up with your regular doctor. GO TO THE ER FOR ANY WORSENING SYMPTOMS Referrals: Koffi Daniels MD [Primary Care Provider] - Nixon Sotomayor MD [Staff Physician] - Time of Disposition: 14:34 Medical Decision Making - Medical Records Medical records reviewed: No: I reviewed the patient's medical records. - Krishna Inquiry Pt receiving controlled substance: No Vital Signs: 10/06/19 13:42 10/06/19 14:52 Temperature 98.2 F 98.2 F Temperature Source Oral Pulse Rate 78 Pulse Rate [Right Radial] 78 Respiratory Rate 20 20 Blood Pressure 138/77 Blood Pressure [Right Arm] 138/77 Blood Pressure Mean [Right Arm] 97 Blood Pressure Source [Right Arm] Automatic Cuff Blood Pressure Position [Right Arm] Sitting 02 Sat by Pulse Oximetry 98 Oxygen Delivery Method Room Air Orders (Tests/Meds): ED MEDICATIONS Discontinued Medications Generic Name Dose Route Start Last Admin Trade Name Freq PRN Reason Stop Dose Admin Ketorolac Tromethamine 60 mg 10/06/19 14:21 10/06/19 14:30 Toradol 60mg/2ml Vial IM 10/06/19 14:22 60 mg ONCE ONE Administration Methylprednisolone Sodium Succinate 125 mg 10/06/19 14:21 10/06/19 14:30 Solu-Medrol 125mg/2ml Vial IM 10/06/19 14:22 125 mg ONCE ONE Administration [facility] [place] - General Stated complaint: no accident left arm pain Time Seen by Provider: 10/06/19 14:15 Mode of Arrival: Ambulatory Source of Information: Patient Limitations: No Limitations Description of Symptoms (Recalled from Triage Doc. by RN): PT C/O LT ARM PAIN. NO KNOWN INJURY HEENT Symptoms (Recalled from RN notes): No Resp Symptoms (Recalled from RN notes): No Skin Symptoms (Recalled from RN notes): No MS Symptoms (Recalled from RN notes): Yes (LT ARM PAIN) Functional Status (Recalled from RN notes): N/A - History of Present Illness Provider Complaint: He has a history of chronic left shoulder and left elbow pain. He has had multiple surgeries on the shoulder. He denies any recent injury. But, he states that when he woke up yesterday, he started having worse left shoulder pain and left elbow pain. He denies any chest pain or radiation of the pain or shortness of breath. - Related Data Previous Rx's Medication Instructions Recorded Triamcinolone Acetonide 1 applicatio TP TIDP PRN 7 Days #1 12/13/18 tube epinephrine 0.3 mg/0.3 mL 0.3 mg IJ ONCE #1 auto.injct 12/15/18 injection, auto-injector atorvastatin 40 mg tablet 40 mg PO DAILY #90 tab 02/23/19 buspirone 30 mg tablet 30 mg PO BID #180 tab 02/23/19 diclofenac sodium 1 % topical gel 2 g TOPICAL QID #100 g 02/23/19 esomeprazole magnesium 40 mg 40 mg PO DAILY #30 cap 02/23/19 capsule,delayed release fluticasone furoate 200 1 inh INHALATION DAILY #60 each 02/23/19 mcg-vilanterol 25 mcg/dose inhalation powder phenytoin sodium extended 200 mg 200 mg PO BID #180 cap 02/23/19 capsule quetiapine 50 mg tablet,extended 50 mg PO HS #30 tab 02/23/19 release 24 hr ropinirole 1 mg tablet 1 mg PO HS #90 tab 02/23/19 Ibuprofen [Ibuprofen 600mg 600 mg PO Q6HP PRN #30 tab 02/24/19 Tablet] mupirocin 2 % topical ointment 1 applic TOPICAL BID #22 g 03/16/19 Minocycline HCl [Minocycline HCl 100 mg PO BID #20 tab 05/30/19 100mg Tab*] escitalopram oxalate 10 mg tablet See Rx Instructions .ROUTE 08/09/19 .COMPLEX #90 tab Allergies Allergy/AdvReac Ty
[2019-10-06 14:52] VITALS: BP 138/77; PULSE 78; RESP 20; TEMP 36.8; O2SAT 98
== END 2019-10-06 14:53 | disposition home or self-care (01) ==
PROVIDERS: Emergency Provider Nurse Practitioner Family; PCP Emergency Medicine
DX: M25.522 Pain in left elbow (principal); M25.512 Pain in left shoulder; G89.29 Other chronic pain; J44.9 Chronic obstructive pulmonary disease, unspecified; F41.8 Other specified anxiety disorders; R56.9 Unspecified convulsions; F17.210 Nicotine dependence, cigarettes, uncomplicated; Z79.899 Other long term (current) drug therapy
CPT/HCPCS: 96372; 99201

== ENCOUNTER → 2019-10-18 10:59 | Outpatient (POV) | payer MEDICARE, MEDICAID, SELFPAY ==
[2019-10-18 14:36] LABS: Alanine Aminotransferase 123 U/L (12-78); Albumin Level 4.7 g/dl (3.5-5.0); Albumin/Globulin Ratio 1.5 (1.1-1.8); Alkaline Phosphatase 109 U/L (38-126); Anion Gap 13.7 mEq/L (5-15); Aspartate Amino Transferase 84 U/L (17-59); Bilirubin,Total 0.8 mg/dl (0.2-1.3); Blood Urea Nitrogen 13 mg/dl (9-20); Calcium 9.3 mg/dl (8.4-10.2); Carbon Dioxide 24 mmol/L (22.0-30.0); Chloride 103 mmol/L (98-107); Estimated Glomerular Filt Rate 72 ml/min (>60); GFR (African American) 87 ML/MIN (>60); Globulin 3.1 g/dL (1.3-3.2); Glucose 91 mg/dl (74-100); Potassium 4.7 mmoL/L (3.5-5.1); Sodium 136 mmol/L (136-145); Total Protein,Serum 7.8 g/dl (6.3-8.2)
[2019-10-19 15:52] LABS: Hep A Ab, Total Positive (Negative); Hep Be Ag Negative (Negative)
[2019-10-19 16:29] LABS: Hepatitis B Core Antibody IgM Negative (Negative); Hepatitis B Surf Ab Quant 430.5 mIU/mL (Immunity>9.9)
[2019-10-21 03:27] LABS: ALT (SGPT) P5P 130 IU/L (0-55); Alpha 2-Macroglobulins, Qn 270 mg/dL (110-276); Apolipoprotein A-1 106 mg/dL (101-178); Bilirubin, Total 0.5 mg/dL (0.0-1.2); Fibrosis Score 0.43 (0.00-0.21); Fibrosis Stage F1-F2 (.); GGT 20 IU/L (0-65); Haptoglobin 101 mg/dL (23-355); Necroinflammat Activity Grade A3-Severe activity (.); Necroinflammat Activity Score 0.71 (0.00-0.17)
[2019-10-21 11:15] LABS: Hepatitis Be Antibody Positive (Negative)
== END ==
PROVIDERS: Visit Provider Nurse Practitioner Family
DX: R94.5 Abnormal results of liver function studies (principal); B16.9 Acute hepatitis B without delta-agent and without hepatic coma; R76.8 Other specified abnormal immunological findings in serum; F19.21 Other psychoactive substance dependence, in remission
CPT/HCPCS: 36415; 80053; 81596; 86704; 86706; 86707; 86708; 87350

== ENCOUNTER 2019-10-22 10:15 | Emergency (ER) | payer MEDICARE, MEDICAID, SELFPAY ==
[2019-10-22 10:18] VITALS: BP 108/82; PULSE 54; RESP 17; TEMP 36.7; O2SAT 97; BMI 24.3
--- NOTE | 2019-10-22 11:22 | HMH.EDGENADL ---
ED Disposition Clinical Impression: URI (upper respiratory infection) Disposition: Home, Self-Care Condition on Discharge: Good Instructions: DI for Viral Pharyngitis, Isolation Precautions Additional Instructions: Call in 36-48 hours for COVID-19 results Referrals: Koffi Daniels MD [Primary Care Provider] - - Critical Care Critical Care Time: No Attestation: On 10/22/19, the high probability of a clinically significant, sudden or life threatening deterioration of the following system(s) required my full and direct attention, intervention and personal management. The time I documented below is in addition to time spent performing reported procedures but includes the following listed in this critical care notation. Medical Decision Making - Medical Records Medical records reviewed: Yes: I reviewed the patient's medical records. - Krishna Inquiry Pt receiving controlled substance: No Vital Signs: 10/22/19 10:18 Temperature 98.0 F Temperature Source Oral Pulse Rate [Right] 54 L Respiratory Rate 17 Blood Pressure [Right Arm] 108/82 L Blood Pressure Mean [Right Arm] 90 02 Sat by Pulse Oximetry 97 Orders (Tests/Meds): ED MEDICATIONS Discontinued Medications Generic Name Dose Route Start Last Admin Trade Name Freq PRN Reason Stop Dose Admin Ibuprofen 800 mg 10/22/19 11:01 10/22/19 11:19 Motrin 400mg Tablet PO 10/22/19 11:02 800 mg ONCE ONE Administration Lidocaine HCl 15 ml 10/22/19 11:01 10/22/19 11:19 Lidocaine 2% Viscous Solution 15ml Udc PO 10/22/19 11:02 15 ml ONCE ONE Administration ORDERS Category Date Time Status SARS-CoV-2, JAEL Stat Lab 10/22/19 10:40 Ordered Medical Decision Narrative: This is a 49-year-old male presenting to the emergency department with URI type symptoms. Patient remains afebrile. Physical exam is consistent with acute URI. Patient is concerned about coronavirus, however he is not displaying any of the symptoms. However given his multiple contacts, outpatient testing will be obtained. Patient needs follow-up with PCP in 48 hours. Given strict return precautions. Verbalized understanding. General Adult HPI - General Chief complaint: Recheck/Abnormal Lab/Rx Stated complaint: sore throat Time Seen by Provider: 10/22/19 10:20 Mode of Arrival: Ambulatory Limitations: No Limitations Description of Symptoms (Recalled from ER Triage Doc. by RN): Pt states he has had a sore throat x2 months and is requesting a COVID19 test, denies cough, fever, soa, body aches, chills or any exposure to COVID. - History of Present Illness HPI narrative: This is a 49-year-old male presenting to the emergency department with URI type symptoms. Patient states that he has had some nasal congestion, sore throat for the last 4 days. He is concerned he had coronavirus. He denies any known contacts, however has been around a lot of people. He states that he feels some postnasal drip. Nasal congestion has been clear in nature. No facial pain. He denies any fevers or chills. He is not having any cough or difficulty breathing. Denies any associated chest pain or ear pain. No abdominal pain, vomiting or diarrhea. - Related Data Previous Rx's Medication Instructions Recorded Triamcinolone Acetonide 1 applicatio TP TIDP PRN 7 Days #1 12/13/18 tube epinephrine 0.3 mg/0.3 mL 0.3 mg IJ ONCE #1 auto.injct 12/15/18 injection, auto-injector atorvastatin 40 mg tablet 40 mg PO DAILY #90 tab 02/23/19 buspirone 30 mg tablet 30 mg PO BID #180 tab 02/23/19 diclofenac sodium 1 % topical gel 2 g TOPICAL QID #100 g 02/23/19 esomeprazole magnesium 40 mg 40 mg PO DAILY #30 cap 02/23/19 capsule,delayed release fluticasone furoate 200 1 inh INHALATION DAILY #60 each 02/23/19 mcg-vilanterol 25 mcg/dose inhalation powder phenytoin sodium extended 200 mg 200 mg PO BID #180 cap 02/23/19 capsule quetiapine 50 mg tablet,extended 50 mg PO HS #30 tab 02/12
[2019-10-22 11:27] VITALS: BP 123/85; PULSE 80; RESP 17; TEMP 36.8; O2SAT 98
[2019-10-23 14:18] LABS: Covid-19 Nasal PCR Sendout Lex Not Detected
== END 2019-10-22 11:28 | disposition home or self-care (01) ==
PROVIDERS: Emergency Provider Emergency Medicine; PCP Emergency Medicine
DX: Z03.818 Encounter for observation for suspected exposure to other biological agents ruled out (principal); J06.9 Acute upper respiratory infection, unspecified; F41.8 Other specified anxiety disorders; J44.9 Chronic obstructive pulmonary disease, unspecified; Z79.899 Other long term (current) drug therapy; F17.210 Nicotine dependence, cigarettes, uncomplicated
CPT/HCPCS: 99282; U0004

== ENCOUNTER 2019-10-28 12:46 | Emergency (ER) | payer MEDICARE, MEDICAID, SELFPAY ==
[2019-10-28 12:48] VITALS: BP 135/91; PULSE 59; RESP 16; TEMP 36.6; O2SAT 100; BMI 24.3
--- NOTE | 2019-10-28 12:58 | XR_ITS ---
PROCEDURE: XR ELBOW RT MIN 3V CLINICAL INDICATION: INJURY Pain COMPARISON: Elbow L from 11/08/2018 FINDINGS: No fracture or dislocation. No lytic or blastic change. There is normal mineralization. Bony hypertrophic changes are present at the coracoid process distal humerus and radial neck. Other findings:None. IMPRESSION: Degenerative change, no acute finding Dictated by: Mikael Godoy MD 10/28/2019 14:05 Electronically signed by Mikael Godoy MD in [place] 10/28/2019 14:05
--- NOTE | 2019-10-28 12:58 | XR_ITS ---
PROCEDURE: XR WRIST LT MIN 3V CLINICAL INDICATION: INJURY Pain following injury COMPARISON: No exams were available for comparison FINDINGS: No fracture or dislocation. No lytic or blastic change. There is normal mineralization. There is minimal prominence of the scapholunate space. This is nonspecific and could be seen with ligamentous injury. Please correlate with clinical findings. Other findings:None. IMPRESSION: Mild prominence of the scapholunate space otherwise negative Dictated by: Mikael Godoy MD 10/28/2019 14:24 Electronically signed by Mikael Godoy MD in [place] 10/28/2019 14:24
--- NOTE | 2019-10-28 12:58 | HMH.EDGENADL ---
ED Disposition Clinical Impression: Left wrist sprain Qualifiers: Encounter type: initial encounter Qualified Code(s): S63.502A - Unspecified sprain of left wrist, initial encounter Contusion of right elbow Qualifiers: Encounter type: initial encounter Qualified Code(s): S50.01XA - Contusion of right elbow, initial encounter Disposition: Home, Self-Care Condition on Discharge: Good Instructions: How to Use a Sling, How to Apply an Elastic Wrap on Elbow, DI for Wrist Sprain, DI for Contusion, How To Perform RICE (Rest, Ice, Compress, Elevate) Additional Instructions: Tylenol or ibuprofen for pain. Ice and elevation right elbow for swelling. Jonathan wrap and sling for 3 days. Follow-up with your primary care provider if not improved in 4-5 days. Referrals: Koffi Daniels MD [Primary Care Provider] - - Critical Care Critical Care Time: No Attestation: On , the high probability of a clinically significant, sudden or life threatening deterioration of the following system(s) required my full and direct attention, intervention and personal management. The time I documented below is in addition to time spent performing reported procedures but includes the following listed in this critical care notation. Medical Decision Making - Krishna Inquiry Pt receiving controlled substance: No Vital Signs: 10/28/19 12:48 Temperature 98 F Temperature Source Temporal Artery Scan Pulse Rate [Right] 59 L Respiratory Rate 16 Blood Pressure [Right Arm] 135/91 H Blood Pressure Mean [Right Arm] 105 02 Sat by Pulse Oximetry 100 Orders (Tests/Meds): ORDERS Category Date Time Status Wrist XR left minimum 3 views [XR wrist LT min 3V] Stat Exams 10/28/19 12:58 Ordered XR elbow RT min 3V Stat Exams 10/28/19 12:58 Ordered - Radiology Data #1 Image(s): Elbow, Wrist Image Reviewed: Yes I reviewed the patient's radiology image Preliminary Findings: Normal/NAD Medical Decision Narrative: Declines brace for left wrist, says he has 1 at home. He does want a sling and Jonathan wrap for his right elbow. General Adult HPI - General Stated complaint: right elbow left wrist fell 10/27 1:00 ao Time Seen by Provider: 10/28/19 12:58 - History of Present Illness HPI narrative: States he fell last night injured his right elbow over the olecranon and his left wrist. Left wrist hurts diffusely with movement. - Related Data Previous Rx's Medication Instructions Recorded Triamcinolone Acetonide 1 applicatio TP TIDP PRN 7 Days #1 12/13/18 tube epinephrine 0.3 mg/0.3 mL 0.3 mg IJ ONCE #1 auto.injct 12/15/18 injection, auto-injector atorvastatin 40 mg tablet 40 mg PO DAILY #90 tab 02/23/19 buspirone 30 mg tablet 30 mg PO BID #180 tab 02/23/19 diclofenac sodium 1 % topical gel 2 g TOPICAL QID #100 g 02/23/19 esomeprazole magnesium 40 mg 40 mg PO DAILY #30 cap 02/23/19 capsule,delayed release fluticasone furoate 200 1 inh INHALATION DAILY #60 each 02/23/19 mcg-vilanterol 25 mcg/dose inhalation powder phenytoin sodium extended 200 mg 200 mg PO BID #180 cap 02/23/19 capsule quetiapine 50 mg tablet,extended 50 mg PO HS #30 tab 02/23/19 release 24 hr ropinirole 1 mg tablet 1 mg PO HS #90 tab 02/23/19 Ibuprofen [Ibuprofen 600mg 600 mg PO Q6HP PRN #30 tab 02/24/19 Tablet] mupirocin 2 % topical ointment 1 applic TOPICAL BID #22 g 03/16/19 Minocycline HCl [Minocycline HCl 100 mg PO BID #20 tab 05/30/19 100mg Tab*] escitalopram oxalate 10 mg tablet See Rx Instructions .ROUTE 08/09/19 .COMPLEX #90 tab Allergies Allergy/AdvReac Type Severity Reaction Status Date / Time fluoxetine [From Prozac] Allergy Verified 09/13/19 21:39 [facility] History - Hepatitis A Screen Attestation statement:: This patient has been screened for Hepatitis A risk factors. I have reviewed the patient's past medical history: Yes 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: Reports:: Anxiety, Chronic Obstructive Pulmonary Disease (COPD), Depression, He
[2019-10-28 13:40] VITALS: BP 135/91; PULSE 59; RESP 16; TEMP 36.6; O2SAT 100
== END 2019-10-28 13:41 | disposition home or self-care (01) ==
PROVIDERS: Emergency Provider Emergency Medicine; PCP Emergency Medicine
DX: S63.502A Unspecified sprain of left wrist, initial encounter (principal); S50.01XA Contusion of right elbow, initial encounter; W01.0XXA Fall on same level from slipping, tripping and stumbling without subsequent striking against object, initial encounter; Y92.019 Unspecified place in single-family (private) house as the place of occurrence of the external cause; Z79.899 Other long term (current) drug therapy; J44.9 Chronic obstructive pulmonary disease, unspecified; F41.8 Other specified anxiety disorders; F12.10 Cannabis abuse, uncomplicated; F17.210 Nicotine dependence, cigarettes, uncomplicated
CPT/HCPCS: 73080; 73110; 99282

== ENCOUNTER 2019-12-08 11:37 | Emergency (ER) | payer MEDICARE, MEDICAID, SELFPAY ==
[2019-12-08 11:38] VITALS: BP 135/56; PULSE 63; RESP 20; TEMP 36.8; O2SAT 99; BMI 25.8
--- NOTE | 2019-12-08 11:54 | XR_ITS ---
PROCEDURE: XR ELBOW RT MIN 3V CLINICAL INDICATION: fall Posterior elbow pain following injury COMPARISON: CR Elbow L from 11/08/2018 CR XR ELBOW RT MIN 3V from 10/28/2019 FINDINGS: No fracture or dislocation. No lytic or blastic change. There is normal mineralization. There are mild osteoarthritic changes of the elbow joint. No displaced fat pad. Other findings:None. IMPRESSION: No acute findings. Dictated by: Mikael Godoy MD 12/08/2019 13:17 Mikael Godoy MD in [place] 12/08/2019 13:17
--- NOTE | 2019-12-08 11:59 | CT_ITS ---
PROCEDURE: CT HEAD/BRAIN WO CON CLINICAL INDICATION: fall Head injury with headache/pain, contusion, abrasion or hematoma COMPARISON: No exams were available for comparison TECHNIQUE: Axial images obtained. All CT scans at the facility use one or more dose reduction, viz: automated exposure control, ma/kV adjustment per patient size (including targeted exams where dose is matched to indication, i.e. head), or iterative reconstruction technique. FINDINGS: No midline shift, mass effect, intracranial hemorrhage, hydrocephalus, or extra-axial fluid collection is evident. There is cerebellar atrophy. The calvarium has an unremarkable appearance. No mastoid effusion. No sinus air-fluid level. IMPRESSION: 1. No acute intracranial findings. 2. Cerebellar atrophy Dictated by: Mikael Godoy MD 12/08/2019 12:57 Mikael Godoy MD in [place] 12/08/2019 12:57
--- NOTE | 2019-12-08 11:59 | CT_ITS ---
PROCEDURE: CT FACIAL BONES WO CON CLINICAL HISTORY: fall Blunt trauma with injury and pain, contusion/abrasion or hematoma following injury to the right side of the head COMPARISON: No exams were available for comparison TECHNIQUE: Axial images obtained with sagittal and coronal reformats. All CT scans at the facility use one or more dose reduction, viz: automated exposure control, ma/kV adjustment per patient size (including targeted exams where dose is matched to indication, i.e. head), or iterative reconstruction technique. FINDINGS: There is a comminuted nasal bone fracture which is nondisplaced. This could even be old as there is no significant soft tissue swelling at this area. Please correlate as the patient's area of pain and tenderness. No sinus air-fluid level. No displaced fracture. The TMJs have an unremarkable appearance. There is minimal mucosal thickening of the inferior aspect of the left maxillary sinus. A defect is present in the medial wall the left maxillary sinus consistent with prior surgery. IMPRESSION: Comminuted nondisplaced nasal bone fracture. Possibly old. Please correlate as the patient's area of pain and tenderness. Postsurgical changes left maxillary sinus Dictated by: Mikael Godoy MD 12/08/2019 13:03 Mikael Godoy MD in [place] 12/08/2019 13:03
--- NOTE | 2019-12-08 12:17 | XR_ITS ---
PROCEDURE: XR FACIAL BONES 2V CLINICAL INDICATION: fall Posttraumatic pain COMPARISON: CT CT FACIAL BONES WO CON from 12/08/2019 FINDINGS: No fracture or dislocation. No lytic or blastic change. There is normal mineralization. The joint spaces are well-preserved. No significant degenerative/arthritic changes. No erosive changes evident. Other findings:There is a comminuted nasal bone fracture which below limits of resolution on radiograph noted on the CT scan of the same day. IMPRESSION: Nasal bone fracture is noted on the CT scan is below limits of resolution on the plain film. Otherwise negative Dictated by: Mikael Godoy MD 12/08/2019 13:19 Mikael Godoy MD in [place] 12/08/2019 13:19
--- NOTE | 2019-12-08 12:35 | HMH.EDGENADL ---
ED Disposition Clinical Impression: Nasal bone fracture Qualifiers: Encounter type: initial encounter Fracture type: closed Qualified Code(s): S02.2XXA - Fracture of nasal bones, initial encounter for closed fracture Disposition: Home, Self-Care Condition on Discharge: Good Instructions: How to Prevent Falls Referrals: Koffi Daniels MD [Primary Care Provider] - 10 days (follow up with ent) Laron Ibarra MD [Staff Physician] - 10 days (for nasal bone fracture) - Critical Care Critical Care Time: No Attestation: On 12/08/19, the high probability of a clinically significant, sudden or life threatening deterioration of the following system(s) required my full and direct attention, intervention and personal management. The time I documented below is in addition to time spent performing reported procedures but includes the following listed in this critical care notation. Medical Decision Making - Medical Records Medical records reviewed: Yes: I reviewed the patient's medical records. - Krishna Inquiry Pt receiving controlled substance: No Vital Signs: 12/08/19 11:38 12/08/19 13:44 Temperature 98.2 F 98.2 F Temperature Source Oral Pulse Rate 80 Pulse Rate [Left Radial] 63 Respiratory Rate 20 18 Blood Pressure 123/65 Blood Pressure [Right Arm] 135/56 L Blood Pressure Mean [Right Arm] 82 Blood Pressure Source [Right Arm] Automatic Cuff Blood Pressure Position [Right Arm] Sitting 02 Sat by Pulse Oximetry 99 Oxygen Delivery Method Room Air Medical Decision Narrative: Patient presents after a seizure earlier this morning. Patient has had seizures previously has a history of epilepsy on medications he does not recall. Patient has been compliant with medication. Patient presents several hours after initial injury to concern for nasal bone fracture. Patient has had prior nasal surgery at another hospital. Patient denies any photophobia, headache, eye pain, diplopia. Low concern for entrapment syndrome at this time. Given tenderness to palpation on face CT of the face and head were ordered, these returned for nasal bone fracture. Nondisplaced. Patient to follow-up with ENT surgery here for further work-up. CT head no intracranial hemorrhage. Discharged home. General Adult HPI - General Chief complaint: Fall Stated complaint: ao fell 12/07 Time Seen by Provider: 12/08/19 12:36 Mode of Arrival: Ambulatory Limitations: No Limitations Description of Symptoms (Recalled from ER Triage Doc. by RN): Pt states that he had a seizure about 1 hour ago and hit his nose which continues to bleed out the side and believes he took a chip out of his elbow when he fell. States that he has blackout seizures - History of Present Illness HPI narrative: Patient presents after fall. Patient had a seizure with loss of consciousness earlier this morning, patient has been stable since then. Patient has a history of epilepsy, on medications that he does not recall. Patient has been following up with his primary care doctor for this work-up. Patient states that he did at his face, has nasal bone pain, is concerned for the nasal bone fractures, he has previously been operated on in the past. Patient has not had any fevers, chills, otherwise feels okay, patient was initially complaining of nosebleed but this is now resolved on arrival here. - Related Data Previous Rx's Medication Instructions Recorded Triamcinolone Acetonide 1 applicatio TP TIDP PRN 7 Days #1 12/13/18 tube epinephrine 0.3 mg/0.3 mL 0.3 mg IJ ONCE #1 auto.injct 12/15/18 injection, auto-injector atorvastatin 40 mg tablet 40 mg PO DAILY #90 tab 02/23/19 buspirone 30 mg tablet 30 mg PO BID #180 tab 02/23/19 diclofenac sodium 1 % topical gel 2 g TOPICAL QID #100 g 02/23/19 esomeprazole magnesium 40 mg 40 mg PO DAILY #30 cap 02/23/19 capsule,delayed release fluticasone furoate 200 1 inh INHALATION DAILY #60 each 02/23/19 mcg-vilanterol 25 mcg/dose
[2019-12-08 13:44] VITALS: BP 123/65; PULSE 80; RESP 18; TEMP 36.8; O2SAT 100
== END 2019-12-08 13:44 | disposition home or self-care (01) ==
PROVIDERS: Emergency Provider Emergency Medicine; PCP Emergency Medicine
DX: G40.909 Epilepsy, unspecified, not intractable, without status epilepticus (principal); S02.2XXA Fracture of nasal bones, initial encounter for closed fracture; S50.01XA Contusion of right elbow, initial encounter; W18.39XA Other fall on same level, initial encounter; Y92.019 Unspecified place in single-family (private) house as the place of occurrence of the external cause; F41.8 Other specified anxiety disorders; J44.9 Chronic obstructive pulmonary disease, unspecified; E78.5 Hyperlipidemia, unspecified; F17.210 Nicotine dependence, cigarettes, uncomplicated; Z79.899 Other long term (current) drug therapy
CPT/HCPCS: 70140; 70450; 70486; 73080; 99282

== ENCOUNTER → 2019-12-22 13:57 | Outpatient (CLI) | payer MEDICARE, MEDICAID, SELFPAY ==
[2019-12-24 04:09] LABS: Hepatitis B Surface Antigen Negative (Negative)
[2019-12-24 10:08] LABS: Hep B Core Ab, Total Positive (Negative)
[2019-12-26 16:45] LABS: HBV Geno CHG YES; HBV IU/mL <10 IU/mL (.)
== END ==
PROVIDERS: PCP Emergency Medicine; Visit Provider Nurse Practitioner Family
DX: R94.5 Abnormal results of liver function studies (principal); R76.8 Other specified abnormal immunological findings in serum; R19.4 Change in bowel habit; R11.0 Nausea; B16.9 Acute hepatitis B without delta-agent and without hepatic coma; F19.21 Other psychoactive substance dependence, in remission
CPT/HCPCS: 36415; 86704; 87340; 87517; 87912

== ENCOUNTER 2019-12-28 12:45 | Emergency (ER) | payer MEDICARE, MEDICAID, SELFPAY ==
[2019-12-28 13:29] VITALS: BP 148/79; PULSE 72; RESP 20; TEMP 36.8; O2SAT 97; BMI 24.3
--- NOTE | 2019-12-28 13:39 | HMH.EDUTC ---
[facility] [place] Impression: Sinusitis Qualifiers: Sinusitis location: unspecified location Chronicity: acute Recurrence: non-recurrent Qualified Code(s): J01.90 - Acute sinusitis, unspecified Disposition: Home, Self-Care Condition on Discharge: Good Instructions: Sinusitis, DI for Sinusitis Additional Instructions: Drink plenty of fluids. Take tylenol or ibuprofen for pain or fever. Take the medications as directed. Follow up with your regular doctor. GO TO THE ER FOR ANY WORSENING SYMPTOMS FOLLOW THE DIRECTIONS ON THE COVID-19 HAND OUT THAT WE GAVE YOU REGARDING SELF-ISOLATION UNTIL YOU KNOW YOUR COVID-19 RESULTS Prescriptions: Azithromycin [Z-Cezar 250mg Tab*] 250 mg PO UD DOSE PK #6 tab Transmission Status: Received by [facility] Referrals: Koffi Daniels MD [Primary Care Provider] - Time of Disposition: 14:07 Medical Decision Making - Medical Records Medical records reviewed: No: I reviewed the patient's medical records. - Krishna Inquiry Pt receiving controlled substance: No Vital Signs: 12/28/19 13:29 12/28/19 14:13 Temperature 98.3 F 98.3 F Temperature Source Oral Pulse Rate 72 Pulse Rate [Right Brachial] 72 Respiratory Rate 20 20 Blood Pressure 148/79 H Blood Pressure [Right Arm] 148/79 H Blood Pressure Mean [Right Arm] 102 Blood Pressure Source [Right Arm] Automatic Cuff Blood Pressure Position [Right Arm] Sitting 02 Sat by Pulse Oximetry 97 Oxygen Delivery Method Room Air Orders (Tests/Meds): ORDERS Category Date Time Status Covid-19 Nasal PCR Sendout [facility] Stat Lab 12/28/19 13:48 [place] [facility] [place] - General Stated complaint: congested headache Time Seen by Provider: 12/28/19 13:40 Mode of Arrival: Ambulatory Source of Information: Patient Limitations: No Limitations Description of Symptoms (Recalled from Triage Doc. by RN): PATIENT C/O COUGH WITH CLEAR SPUTUM AND HEADACHE. REQUESTING COVID TEST HEENT Symptoms (Recalled from RN notes): Yes Resp Symptoms (Recalled from RN notes): Yes Skin Symptoms (Recalled from RN notes): No MS Symptoms (Recalled from RN notes): No Functional Status (Recalled from RN notes): WNL - History of Present Illness Provider Complaint: He c/o sinus congestion for the past 3 days. He thinks that he was exposed to COVID-19 before his symptoms began. - Related Data Previous Rx's Medication Instructions Recorded Triamcinolone Acetonide 1 applicatio TP TIDP PRN 7 Days #1 12/13/18 tube epinephrine 0.3 mg/0.3 mL 0.3 mg IJ ONCE #1 auto.injct 12/15/18 injection, auto-injector esomeprazole magnesium 40 mg 40 mg PO DAILY #30 cap 02/23/19 capsule,delayed release fluticasone furoate 200 1 inh INHALATION DAILY #60 each 02/23/19 mcg-vilanterol 25 mcg/dose inhalation powder Ibuprofen [Ibuprofen 600mg 600 mg PO Q6HP PRN #30 tab 02/24/19 Tablet] mupirocin 2 % topical ointment 1 applic TOPICAL BID #22 g 03/16/19 Minocycline HCl [Minocycline HCl 100 mg PO BID #20 tab 05/30/19 100mg Tab*] fluticasone propionate 50 2 spray INTRANASAL DAILY #9.9 ml 12/14/19 mcg/actuation nasal spray,suspension permethrin 1 % topical liquid 60 ml TOPICAL Q7D 0 Days #118 ml 12/14/19 prednisone 20 mg tablet 20 mg PO BID 5 Days #10 tab 12/14/19 atorvastatin 40 mg tablet 40 mg PO DAILY #90 tab 12/15/19 buspirone 30 mg tablet 30 mg PO BID #180 tab 12/15/19 diclofenac sodium 1 % topical gel 2 g TOPICAL QID #100 g 12/15/19 escitalopram oxalate 10 mg tablet See Rx Instructions .ROUTE 12/15/19 .COMPLEX #90 tab quetiapine 50 mg tablet,extended 50 mg PO HS #30 tab 12/15/19 release 24 hr ropinirole 1 mg tablet 1 mg PO HS #90 tab 12/15/19 phenytoin sodium extended 200 mg 200 mg PO BID #180 cap 12/23/19 capsule Azithromycin [Z-Cezar 250mg Tab*] 250 mg PO UD DOSE PK #6 tab 12/28/19 Allergies Allergy/AdvReac Type Severity Reaction Status Date / Time [facility] Allergy Verified 12/16/19 14:59
[2019-12-28 14:13] VITALS: BP 148/79; PULSE 72; RESP 20; TEMP 36.8; O2SAT 97
[2019-12-29 15:25] LABS: Covid-19 Nasal PCR Sendout Lex Not Detected
== END 2019-12-28 14:15 | disposition home or self-care (01) ==
PROVIDERS: Emergency Provider Nurse Practitioner Family; PCP Emergency Medicine
DX: J01.90 Acute sinusitis, unspecified (principal); Z20.828 Contact with and (suspected) exposure to other viral communicable diseases; F41.8 Other specified anxiety disorders; J44.9 Chronic obstructive pulmonary disease, unspecified; K21.9 Gastro-esophageal reflux disease without esophagitis; F17.210 Nicotine dependence, cigarettes, uncomplicated; Z79.899 Other long term (current) drug therapy
CPT/HCPCS: 99201; U0004

== ENCOUNTER 2020-04-17 11:34 | Emergency (ER) | payer MEDICARE, MEDICAID, SELFPAY ==
[2020-04-17 11:41] VITALS: PULSE 84; RESP 16; TEMP 36.6; O2SAT 98; BMI 28.2
[2020-04-17 12:20] VITALS: BP 142/86; PULSE 84; RESP 16; TEMP 36.9; O2SAT 98; BMI 27.3
--- NOTE | 2020-04-17 12:24 | XR_ITS ---
PROCEDURE: XR ANKLE RT MIN 3V CLINICAL INDICATION: pain COMPARISON: No exams were available for comparison FINDINGS: No fracture or dislocation. No lytic or blastic change. There is normal mineralization. The joint spaces are well-preserved. No significant degenerative/arthritic changes. No erosive changes evident. Other findings:None. IMPRESSION: No acute findings. Dictated by: Mikael Godoy MD 04/18/2020 12:32 Mikael Godoy MD in [place] 04/18/2020 12:33
--- NOTE | 2020-04-17 12:40 | HMH.EDUTC ---
[facility] [place] Dis[place] Clinical Impression: Ankle pain Qualifiers: Chronicity: chronic Laterality: right Qualified Code(s): M25.571 - Pain in right ankle and joints of right foot Disposition: Home, Self-Care Condition on Discharge: Good Instructions: How to Apply an Jonathan Wrap, DI for Ankle Pain Additional Instructions: *weight bearing as tolerated *RICE, Rest the extremity, Ice 15-20 minutes 3-4 times daily, Compress- wear the jonathan wrap as discussed as much as possible to help reduce swelling and pain, Elevate the extremity when at rest *Jonathan wrap is for support and help control swelling, use it except in the shower. Be sure that is not to tight but not to loose either *Elevate when resting *Ibuprofen very 6-8 hours as needed for pain an inflammation. If need something more can take Tylenol in between doses of Ibuprofen to help Immediately follow up with your family doctor for new or worsening of symptoms, or no noticeable improvement over the next 3-[address] Follow up [address] Dr Spann or your Family Doctor if you continue to have pain and swelling in ankle Return if needed Straight to ER if any life threatening symptoms Referrals: Brenna Perez PA [Primary Care Provider] - As needed Kayla Spann DPM [Staff Physician] - As needed Time of Disposition: 13:05 Medical Decision Making - Krishna Inquiry Pt receiving controlled substance: No Krishna was queried for this patient: No Vital Signs: 04/17/20 11:41 04/17/20 12:20 04/17/20 13:20 Temperature 98 F 98.4 F 98.4 F Temperature Source Oral Oral Pulse Rate 84 Pulse Rate [Right] 84 84 Respiratory Rate 16 16 16 Blood Pressure 142/86 H Blood Pressure [Right Arm] 142/86 H Blood Pressure Mean [Right Arm] 104 Blood Pressure Source [Right Arm] Automatic Cuff Blood Pressure Position [Right Arm] Sitting 02 Sat by Pulse Oximetry 98 98 Oxygen Delivery Method Room Air Room Air Orders (Tests/Meds): ORDERS Category Date Time Status XR ankle RT min 3V Stat Exams 04/17/20 12:24 Taken Covid-19 Nasal PCR ([facility]) Routine Lab 04/17/20 12:50 Received - Radiology Data #1 Image(s): Ankle Image Reviewed: Yes I reviewed the patient's radiology image Preliminary Findings: No Fracture Seen [facility] [place] HPI - General Stated complaint: right ankle pain Time Seen by Provider: 04/17/20 12:40 Mode of Arrival: Ambulatory Source of Information: Patient Limitations: No Limitations Description of Symptoms (Recalled from Triage Doc. by RN): PATIENT C/O RIGHT ANKLE PAIN AND SWELLING X 3 WEEKS HEENT Symptoms (Recalled from RN notes): No Resp Symptoms (Recalled from RN notes): No Skin Symptoms (Recalled from RN notes): No MS Symptoms (Recalled from RN notes): No Functional Status (Recalled from RN notes): WNL - History of Present Illness Provider Complaint: Patient states that he broke his right ankle about 3 years ago and for last couple of weeks he has been having swelling off and on along with pain in ankle area when he walks Denies new injury - Related Data Previous Rx's Medication Instructions Recorded fluticasone propionate 50 2 spray INTRANASAL DAILY #9.9 ml 12/14/19 mcg/actuation nasal spray,suspension diclofenac sodium 1 % topical gel 2 g TOPICAL QID #100 g 12/15/19 ropinirole 1 mg tablet 1 mg PO HS #90 tab 12/15/19 albuterol sulfate 90 mcg/actuation 2 puff INHALATION Q4-6H PRN 90 01/10/20 aerosol inhaler Days #3 units phenytoin sodium extended 200 mg 200 mg PO BID #180 cap 01/10/20 capsule loratadine 10 mg tablet See Rx Instructions .ROUTE 02/03/20 .COMPLEX #30 tab fluticasone furoate 200 1 inh INHALATION Q24H #90 each 02/19/20 mcg-vilanterol 25 mcg/dose inhalation powder atorvastatin 40 mg tablet 40 mg PO DAILY #90 tab 02/29/20 buspirone 30 mg tablet 30 mg PO BID #180 tab 03/20/20 esomeprazole magnesium 40 mg 40 mg PO DAILY #30 cap 03/20/20 capsule,delayed release risperidone 1 mg tablet 1 mg PO BID #60 tab 03/20/20 escitalopram oxalate 10 m
[2020-04-17 13:20] VITALS: BP 142/86; PULSE 84; RESP 16; TEMP 36.9; O2SAT 98
== END 2020-04-17 13:22 | disposition home or self-care (01) ==
PROVIDERS: Emergency Provider Emergency Medicine; PCP Physician Assistant
DX: M25.571 Pain in right ankle and joints of right foot (principal); F41.8 Other specified anxiety disorders; J44.9 Chronic obstructive pulmonary disease, unspecified; K21.9 Gastro-esophageal reflux disease without esophagitis; F17.210 Nicotine dependence, cigarettes, uncomplicated; Z20.822 Contact with and (suspected) exposure to COVID-19
CPT/HCPCS: G0463; 73610; 99202; U0003

== ENCOUNTER 2020-04-30 12:01 | Emergency (ER) | payer MEDICARE, MEDICAID, SELFPAY ==
[2020-04-30 12:02] VITALS: BP 162/108; PULSE 95; RESP 16; TEMP 37.3; O2SAT 98; BMI 27.3
--- NOTE | 2020-04-30 12:16 | HMH.EDGENADL ---
ED Disposition Clinical Impression: Hemorrhoids Qualifiers: Hemorrhoid type: first degree Qualified Code(s): K64.0 - First degree hemorrhoids Disposition: Home, Self-Care Condition on Discharge: Good Instructions: DI for Hemorrhoids Prescriptions: Hydrocortisone Acetate [Anusol HC 30mg Supp] 30 mg RC DAILY #10 supp.rect Transmission Status: Pending to [facility] #[id number] Referrals: Brenna Perez PA [Primary Care Provider] - Evgeny Mcfadden MD [Staff Physician] - - Critical Care Critical Care Time: No Attestation: On , the high probability of a clinically significant, sudden or life threatening deterioration of the following system(s) required my full and direct attention, intervention and personal management. The time I documented below is in addition to time spent performing reported procedures but includes the following listed in this critical care notation. Medical Decision Making - Medical Records Medical records reviewed: Yes: I reviewed the patient's medical records. - Krishna Inquiry Pt receiving controlled substance: No Vital Signs: 04/30/20 12:02 Temperature 99.1 F Temperature Source Oral Pulse Rate [Radial] 95 H Respiratory Rate 16 Blood Pressure [Right Arm] 162/108 H Blood Pressure Mean [Right Arm] 126 Blood Pressure Position [Right Arm] Sitting 02 Sat by Pulse Oximetry 98 Oxygen Delivery Method Room Air Medical Decision Narrative: This is a 50-year-old male presented to the emergency department with rectal bleeding. Physical examination is consistent with an internal and external hemorrhoid. There is no evidence of infection or thrombosis. Patient be discharged with Anusol cream at this time. He was instructed on how to use the medication. Abdominal exam did not show any tenderness. Patient is to follow-up with general surgery. Patient was given strict return precautions for any worsening symptoms. Verbalized understanding. General Adult HPI - General Chief complaint: GI Bleed Stated complaint: bleeding from rectum Time Seen by Provider: 04/30/20 12:10 Mode of Arrival: Ambulatory Limitations: No Limitations Description of Symptoms (Recalled from ER Triage Doc. by RN): TO ED PER [facility] CAR WITH C/O BRIGHT RED BLOOD PER RECTUM X A FEW DAYS WORSE TODAY. INCONTINENT OF STOOL TODAY. PT DENIES ABD PAIN, NAUSEA, VOMITING. - History of Present Illness HPI narrative: This is a 50-year-old male presented to the emergency department with some bleeding from his rectum. Patient states that he has had it for the last 2 days. Patient states that he noticed that his stools were covered and bright red blood. He had one episode of this last night and has persisted into today. He is not have any associated pain or discharge. The patient is having normal bowel movements and passing gas without difficulty. No abdominal pain or vomiting. Patient does complain of some itching in that area as well. Not having any fevers or chills. No chest pain or shortness of breath. No headache or change in vision. No focal weakness. Denies any trauma to the area. - Related Data Previous Rx's Medication Instructions Recorded fluticasone propionate 50 2 spray INTRANASAL DAILY #9.9 ml 12/14/19 mcg/actuation nasal spray,suspension diclofenac sodium 1 % topical gel 2 g TOPICAL QID #100 g 12/15/19 ropinirole 1 mg tablet 1 mg PO HS #90 tab 12/15/19 albuterol sulfate 90 mcg/actuation 2 puff INHALATION Q4-6H PRN 90 01/10/20 aerosol inhaler Days #3 units phenytoin sodium extended 200 mg 200 mg PO BID #180 cap 01/10/20 capsule loratadine 10 mg tablet See Rx Instructions .ROUTE 02/03/20 .COMPLEX #30 tab fluticasone furoate 200 1 inh INHALATION Q24H #90 each 02/19/20 mcg-vilanterol 25 mcg/dose inhalation powder atorvastatin 40 mg tablet 40 mg PO DAILY #90 tab 02/29/20 buspirone 30 mg tablet 30 mg PO BID #180 tab 03/20/20 esomeprazole magnesium 40 mg 40 mg PO DAILY #30 cap 03/20/20
[2020-04-30 12:28] VITALS: BP 160/98; PULSE 78; RESP 16; TEMP 36.6; O2SAT 99
== END 2020-04-30 12:31 | disposition home or self-care (01) ==
LOC: ER 12:27
PROVIDERS: Emergency Provider Emergency Medicine; PCP Physician Assistant
DX: K64.0 First degree hemorrhoids (principal); K64.8 Other hemorrhoids; K21.9 Gastro-esophageal reflux disease without esophagitis; G40.909 Epilepsy, unspecified, not intractable, without status epilepticus; F41.8 Other specified anxiety disorders; J44.9 Chronic obstructive pulmonary disease, unspecified; F17.210 Nicotine dependence, cigarettes, uncomplicated; Z79.899 Other long term (current) drug therapy
CPT/HCPCS: 99281

== ENCOUNTER 2020-05-08 12:05 | Emergency (ER) | payer MEDICARE, MEDICAID, SELFPAY ==
[2020-05-08 12:05] VITALS: BP 153/84; PULSE 70; RESP 15; TEMP 36.7; O2SAT 97; BMI 27.3
--- NOTE | 2020-05-08 12:09 | XR_ITS ---
PROCEDURE: XR CHEST PORTABLE CLINICAL HISTORY: chest pain COMPARISON: No exams were available for comparison FINDINGS: The cardiomediastinal silhouette and pulmonary vascularity are within normal limits. The lungs are clear without infiltrates, suspicious nodules, or pleural effusions. There is an old fracture of the right 2nd 3rd and 5th ribs. Degenerative changes are present in the right shoulder with some subchondral cystic changes of the right humeral head with some cortical regularity. IMPRESSION: No acute findings. Dictated by: Mikael Godoy MD 05/08/2020 13:09 Mikael Godoy MD in [facility] 05/08/2020 13:09
--- NOTE | 2020-05-08 12:09 | ECG_ITS ---
APPROVED REPORT Exam: Resting ECG HR:67 bpm ECG Measurements Heart Rate 67 AXES MD 158 P 73 QRSd 114 QRS 62 QT 388 T 45 QTc 409 Conclusion Normal sinus rhythm Septal infarct, age undetermined Abnormal ECG Electronically signed by : Augustine Garcias, 05/09/2020 07:08:28
--- NOTE | 2020-05-08 12:19 | HMH.EDCP ---
ED Disposition Clinical Impression: Chronic chest pain Disposition: Home, Self-Care Condition on Discharge: Good Instructions: DI for Atypical Chest Pain Referrals: Brenna Perez PA [Primary Care Provider] - - Critical Care Critical Care Time: No Attestation: On 05/08/20, the high probability of a clinically significant, sudden or life threatening deterioration of the following system(s) required my full and direct attention, intervention and personal management. The time I documented below is in addition to time spent performing reported procedures but includes the following listed in this critical care notation. Medical Decision Making - Medical Records Medical records reviewed: Yes: I reviewed the patient's medical records. - Krishna Inquiry Pt receiving controlled substance: Yes Krishna was queried for this patient: No Reason not queried -: Krishna login issues Risks and benefits of using a controlled substance: were discussed with pt by me Vital Signs: 05/08/20 12:05 Temperature 98.0 F Temperature Source Oral Pulse Rate [Right Brachial] 70 Respiratory Rate 15 Blood Pressure [Right Arm] 153/84 H Blood Pressure Mean [Right Arm] 107 Blood Pressure Source [Right Arm] Automatic Cuff Blood Pressure Position [Right Arm] Supine 02 Sat by Pulse Oximetry 97 Oxygen Delivery Method Room Air - Lab Data Lab Results 05/08/20 12:43: WBC 8.2, RBC 4.77, Hgb 16.5, Hct 48.5, MCV 101.7 H, MCH 34.5 H, MCHC 33.9, RDW 14.7, Plt Count 192, MPV 8.0, Neut % (Auto) 56.1, Lymph % (Auto) 30.3, Butler % (Auto) 6.9, Eos % (Auto) 5.6, Baso % (Auto) 1.0, Neut # (Auto) 4.6, Lymph # (Auto) 2.5, Butler # (Auto) 0.6, Eos # (Auto) 0.5 H, Baso # (Auto) 0.1 05/08/20 12:43: Sodium 137, Potassium 4.1, Chloride 102, Carbon Dioxide 27, Anion Gap 12.1, BUN 18, Creatinine 1.10, Estimated Creat Clear 95, Estimated GFR 71, Est GFR ( Amer) 86, Glucose 115 H, Calcium 9.1, Troponin I < 0.01 Result diagrams: 05/08/20 12:43 05/08/20 12:43 Orders (Tests/Meds): ED MEDICATIONS Discontinued Medications Generic Name Dose Route Start Last Admin Trade Name Micheline PRN Reason Stop Dose Admin Aspirin 324 mg 05/08/20 12:09 05/08/20 12:42 Aspirin 81mg Chewable Tablet PO 05/08/20 12:10 324 mg ONCE ONE Administration Morphine Sulfate 4 mg 05/08/20 12:13 05/08/20 12:42 Morphine 4mg/Ml Syringe IV 05/08/20 12:14 4 mg ONCE ONE Administration Ondansetron HCl 4 mg 05/08/20 12:13 05/08/20 12:42 Ondansetron 4mg/2ml Vial IV 05/08/20 12:14 4 mg ONCE ONE Administration ORDERS Category Date Time Status Covid-19 IgG/IgM (H) Stat Lab 05/08/20 13:12 Ordered Troponin I Q3H Lab 05/08/20 15:15 Ordered Troponin I Q3H Lab 05/08/20 18:15 Ordered ECG Request by /Bibi Stat Y 05/08/20 12:09 Ordered - ECG Data Tracing #1 Normal ventricular rate of 67 bpm, SC interval of 150 ms, normal QTC. Sinus rhythm with nonspecific changes. ECG initial impression date: 05/08/20 ECG initial impression time: 12:11 - Reevaluation(s) Time: 14:02 Reevaluation #1: On reevaluation, the patient's chest pain is improved. Negative troponin. Given the consistent subacute nature of this, I believe is low risk for acute coronary syndrome. Patient needs a follow-up with PCP. Strict return precautions. Verbalized understanding. Medical Decision Narrative: 50-year-old male presented to the emergency department with chest discomfort. Chronic in nature. Patient low risk for acute coronary syndrome based on heart score. Work-up initiated. Chest Pain HPI - General Chief Complaint: Chest Pain Stated Complaint: chest pain Time Seen by Provider: 05/08/20 12:10 Mode of Arrival: Ambulatory Limitations: No Limitations Description of Symptoms (Recalled from ER Triage Doc. by RN): Pt presents with Chest Pain for about a week. States it got worse today. Denies shortness of air, reports he has a cough with phlegm but no oth
[2020-05-08 12:35] VITALS: BP 147/76; PULSE 60; O2SAT 96
[2020-05-08 13:05] VITALS: BP 147/76; PULSE 71; O2SAT 96
[2020-05-08 13:11] LABS: Anion Gap 12.1 mEq/L (5-15); Blood Urea Nitrogen 18 mg/dl (9-20); Calcium 9.1 mg/dl (8.4-10.2); Carbon Dioxide 27 mmol/L (22.0-30.0); Chloride 102 mmol/L (98-107); Creatinine Clearance Estimated 95 mL/min (50-200); Estimated Glomerular Filt Rate 71 ml/min (>60); GFR (African American) 86 ML/MIN (>60); Glucose 115 mg/dl (74-100); Potassium 4.1 mmoL/L (3.5-5.1); Sodium 137 mmol/L (136-145)
[2020-05-08 13:14] LABS: Basophils # 0.1 K/mm3 (0-0.2); Eosinophils # 0.5 K/mm3 (0.0-0.4); Eosinophils % 5.6 % (0.1-12.0); Hematocrit 48.5 % (42.0-52.0); Hemoglobin 16.5 g/dL (14.1-18.0); Lymphocytes # 2.5 K/mm3 (0.7-4.5); Lymphocytes % 30.3 % (10-50); Mean Corpuscular HGB Conc 33.9 g/dL (31.8-35.4); Mean Corpuscular Hemoglobin 34.5 pg (27.0-31.2); Mean Corpuscular Volume 101.7 fl (80-94); Monocytes # 0.6 K/mm3 (0.1-1.0); Monocytes % 6.9 % (1.7-9.3); Neutrophils # 4.6 K/mm3 (1.8-7.8); Neutrophils % 56.1 % (37.0-80.0); Platelet Count 192 K/mm3 (142-424); Red Blood Count 4.77 M/mm3 (4.60-6.20); Red Cell Distribution Width 14.7 % (11.5-17.5); White Blood Count 8.2 K/mm3 (4.8-10.8)
[2020-05-08 13:23] LABS: Troponin I < 0.01 ng/ml (0.00-0.034)
[2020-05-08 13:35] VITALS: BP 136/82; PULSE 63; O2SAT 98
[2020-05-08 14:05] VITALS: BP 138/61; PULSE 62; O2SAT 98
[2020-05-08 14:34] VITALS: BP 131/75; PULSE 66; RESP 16; TEMP 36.8; O2SAT 95
[2020-05-08 14:51] LABS: Coronavirus 19 IgG Antibody Negative (Negative); Coronavirus 19 IgM Antibody Negative (Negative)
== END 2020-05-08 14:44 | disposition home or self-care (01) ==
PROVIDERS: Emergency Provider Emergency Medicine; PCP Physician Assistant
DX: R07.9 Chest pain, unspecified (principal); F41.8 Other specified anxiety disorders; E78.5 Hyperlipidemia, unspecified; K21.9 Gastro-esophageal reflux disease without esophagitis; F17.210 Nicotine dependence, cigarettes, uncomplicated; Z01.84 Encounter for antibody response examination
CPT/HCPCS: 71045; 80048; 84484; 85025; 86328; 93005; 96367; 96374; 99283; J2405

== ENCOUNTER → 2020-06-05 19:53 | Outpatient (CLI) | payer MEDICARE, MEDICAID, SELFPAY ==
[2020-06-05 21:11] LABS: Amphetamine/Metha Screen,Urine Negative ng/ml (<1000)
[2020-06-05 21:15] LABS: Barbiturates Screen,Urine Negative ng/ml (<200)
[2020-06-05 21:16] LABS: Benzodiazepines Screen,Urine Negative ng/ml (<200); Cannabinoid Screen,Urine Negative ng/ml (<50)
[2020-06-05 21:17] LABS: Cocaine Screen,Urine Negative ng/ml (<300); Methadone Screen,Urine Negative ng/ml (<300)
[2020-06-05 21:18] LABS: Opiate Screen,Urine Negative ng/ml (<300)
[2020-06-05 21:19] LABS: Phencyclidine Screen,Urine Negative ng/ml (<25)
[2020-06-05 21:29] LABS: Basophils # 0.1 K/mm3 (0-0.2); Basophils % 1.2 % (0.1-2.0); Eosinophils # 0.4 K/mm3 (0.0-0.4); Eosinophils % 4.9 % (0.1-12.0); Hematocrit 47.7 % (42.0-52.0); Lymphocytes # 2.9 K/mm3 (0.7-4.5); Lymphocytes % 39.9 % (10-50); Mean Corpuscular HGB Conc 33.6 g/dL (31.8-35.4); Mean Corpuscular Hemoglobin 34.4 pg (27.0-31.2); Mean Corpuscular Volume 102.6 fl (80-94); Mean Platelet Volume 9.9 fl (7.4-10.4); Monocytes # 0.6 K/mm3 (0.1-1.0); Monocytes % 7.8 % (1.7-9.3); Neutrophils # 3.4 K/mm3 (1.8-7.8); Neutrophils % 46.3 % (37.0-80.0); Platelet Count 175 K/mm3 (142-424); Red Blood Count 4.65 M/mm3 (4.60-6.20); Red Cell Distribution Width 14.1 % (11.5-17.5); White Blood Count 7.4 K/mm3 (4.8-10.8)
[2020-06-05 21:34] LABS: Chloride 110 mmol/L (98-107); Potassium 4.2 mmoL/L (3.5-5.1); Sodium 140 mmol/L (136-145)
[2020-06-05 21:36] LABS: Alanine Aminotransferase 58 U/L (12-78); Aspartate Amino Transferase 45 U/L (17-59); Blood Urea Nitrogen 18 mg/dl (9-20); Estimated Glomerular Filt Rate 80 ml/min (>60); GFR (African American) 97 ML/MIN (>60)
[2020-06-05 21:37] LABS: Albumin Level 4.3 g/dl (3.5-5.0); Albumin/Globulin Ratio 1.4 (1.1-1.8); Alkaline Phosphatase 106 U/L (38-126); Anion Gap 11.2 mEq/L (5-15); Bilirubin,Total 0.4 mg/dl (0.2-1.3); Calcium 8.8 mg/dl (8.4-10.2); Carbon Dioxide 23 mmol/L (22.0-30.0); Chol/HDL Ratio 5.8 (1-3.5); Cholesterol 202 mg/dl (140-200); Globulin 3.1 g/dL (1.3-3.2); Glucose 132 mg/dl (74-100); HDL Cholesterol 35 mg/dl (40-60); Total Protein,Serum 7.4 g/dl (6.3-8.2)
[2020-06-05 21:54] LABS: Free T4 (Free Thyroxine) 0.67 ng/dl (0.78-2.19)
[2020-06-05 22:03] LABS: Triglycerides 874 mg/dl (30-150)
[2020-06-05 22:08] LABS: Thyroid Stimulating Hormone 2.26 uIU/mL (0.465-4.68)
[2020-06-06 11:53] LABS: Hemoglobin A1C 5.4 % (4.0-6.0)
[2020-06-06 20:19] LABS: Vitamin B12 > 1000 pg/mL (239-931)
[2020-06-06 20:44] LABS: Folate > 20.00 ng/mL
== END ==
PROVIDERS: Visit Provider Physician Assistant
DX: B19.20 Unspecified viral hepatitis C without hepatic coma (principal); G40.909 Epilepsy, unspecified, not intractable, without status epilepticus; G89.29 Other chronic pain; M54.2 Cervicalgia; M54.9 Dorsalgia, unspecified; R07.9 Chest pain, unspecified; R10.9 Unspecified abdominal pain; R53.83 Other fatigue; R41.3 Other amnesia; M25.512 Pain in left shoulder; R73.09 Other abnormal glucose
CPT/HCPCS: 80053; 80061; 80305; 82607; 82746; 83036; 84439; 84443; 85025

== ENCOUNTER → 2020-06-07 13:08 | Outpatient (CLI) | payer MEDICARE, MEDICAID, SELFPAY ==
--- NOTE | 2020-06-07 13:14 | XR_ITS ---
PROCEDURE: XR MULTIPLE SPINE 6+V CLINICAL INDICATION: neck and back pain COMPARISON: No exams were available for comparison FINDINGS: C-spine: Normal alignment. Degenerative disc disease C5-C6 and C6-C7. Right-sided carotid artery calcifications incidentally noted. Mild foraminal narrowing is present on the left at C6-C7. Artifact is present from the patient's earring on the left which he refused to remove according to the technologist note. L-spine: Unremarkable. No fracture or dislocation. No lytic or blastic change or significant degenerative change IMPRESSION: Mild degenerative disc disease C5-C6 and C6-C7 with mild left-sided foraminal narrowing at C6-C7. Negative lumbar spine Dictated by: Mikael Godoy MD 06/07/2020 16:40 Mikael Godoy MD in [facility] 06/07/2020 16:40
== END ==
PROVIDERS: PCP Physician Assistant; Visit Provider Physician Assistant
DX: M54.2 Cervicalgia (principal); M54.5 Low back pain
CPT/HCPCS: 72084

== ENCOUNTER 2020-06-13 15:42 | Outpatient (RCR) | payer MEDICARE, MEDICAID, SELFPAY ==
--- NOTE | 2020-06-13 16:57 | HMH.PTOPEV ---
PT Outpatient Evaluation Rehab PT Outpatient Evaluation Start: 06/13/20 15:47 Freq: Status: Active Protocol: Document 06/13/20 15:53 YESICAMIGUEL (Rec: 06/13/20 16:57 ROOSEVELT [id number]) Electronically Signed By Rubio Valdez, [place] 06/13/20 15:53 Outpatient Therapy Subjective History Subjective History This is the initial Physical Therapy evaluation for Nuno Clifton. Pt is a 50 y/o male referred to PT for c/o neck and low back pain. Pt reports insidious onset of neck pain and low back pain. Pt reports pain in low back began first and then neck pain began to neck pain. Pt reports long history of pain but states this bout started about 2 years ago. Pt reports no c/o pain into BUE or LE. Pt reports he was told he had degenerative disc disease and scoliosis and he feels that is what is causing his pain. Chief Complaint Pain,Stiff Symptom Type Ache,Throb,Sharp Symptoms Relieved By Nothing Symptoms Aggravated By Prone,Supine,Sitting,Standing, Physical Activity,Walking, Lifting Current Functional Limitations Lifting,Sleeping,Standing, Sitting,Recreation Activity, Bending/Stooping Symptom Description Constant but Variable Level of pain today (0-10) 8 Pain scale - at its best (0-10) 1 Pain scale - at its worst (0-10) 9 Cervical Eval Palpation Cervical/Thoracic Palpation Findings Tenderness AROM Cervical Spine Extension Active Range of 30 Motion (degrees) Cervical Spine Flexion Active Range of 40 Motion (degrees) Cervical Spine Right Lateral Flexion 25 Active Range of Motion (degrees) Cervical Spine Left Lateral Flexion 25 Active Range of Motion (degrees) Cervical Spine Right Rotation Active 50 Range of Motion (degrees) Cervical Spine Left Rotation Active 70 Range of Motion (degrees) MMT Bilateral Deltoid (C5) 5 Normal Biceps Brachii Strength Grade 5 Normal Triceps Brachii Strength Grade 5 Normal Special Test C-Spine Foraminal Distraction Test Positive C-Spine Compression Test Positive Left,Positive Right Lumbopelvic Eval Posture Lumbar Spine Posture Standing Position Neutral
== END 2020-06-13 15:45 | disposition home or self-care (01) ==
LOC: PT 15:42
PROVIDERS: PCP Physician Assistant; Visit Provider Physician Assistant
DX: M54.2 Cervicalgia (principal); M54.9 Dorsalgia, unspecified
CPT/HCPCS: 97014; 97110; 97163; G0283

== ENCOUNTER → 2020-06-14 14:58 | Outpatient (CLI) | payer MEDICARE, MEDICAID, SELFPAY ==
--- NOTE | 2020-06-14 14:59 | CT_ITS ---
PROCEDURE: CT HEAD/BRAIN WO CON CLINICAL INDICATION: memory loss, head trauma COMPARISON: CT CT HEAD/BRAIN WO CON from 12/08/2019 TECHNIQUE: Axial images obtained. All CT scans at the facility use one or more dose reduction, viz: automated exposure control, ma/kV adjustment per patient size (including targeted exams where dose is matched to indication, i.e. head), or iterative reconstruction technique. FINDINGS: No midline shift, mass effect, intracranial hemorrhage, hydrocephalus, or extra-axial fluid collection is evident. There is cerebellar atrophy not significantly changed. Mild mucosal thickening involves the ethmoid sinuses. The calvarium has an unremarkable appearance. No mastoid effusion. No sinus air-fluid level. IMPRESSION: Overall no change with no acute finding. Cerebellar atrophy Dictated by: Mikael Godoy MD 06/14/2020 17:21 Mikael Godoy MD in [facility] 06/14/2020 17:21
== END ==
PROVIDERS: PCP Physician Assistant; Visit Provider Physician Assistant
DX: R41.3 Other amnesia (principal)
CPT/HCPCS: 70450

== ENCOUNTER 2020-06-29 16:31 | Emergency (ER) | payer MEDICARE, MEDICAID, SELFPAY ==
[2020-06-29] VITALS (21 sets, daily range): BP systolic 126–149; BP diastolic 65–88; PULSE 63–91; RESP 14–25; TEMP 36.6–36.8; O2SAT 92–98; BMI 27.6
--- NOTE | 2020-06-29 16:22 | ECG_ITS ---
APPROVED REPORT Exam: Resting ECG HR:67 bpm ECG Measurements Heart Rate 67 AXES NM 154 P 79 QRSd 100 QRS 77 QT 382 T 61 QTc 403 Conclusion Normal sinus rhythm Old septal changes Abnormal ECG Electronically signed by : Augustine Garcias, 06/30/2020 11:41:03
--- NOTE | 2020-06-29 16:34 | HMH.EDGENADL ---
ED Disposition Clinical Impression: Atypical chest pain Disposition: Home, Self-Care Condition on Discharge: Good Instructions: DI for Atypical Chest Pain Additional Instructions: Additional instructions for CHEST PAIN: See your physician as soon as possible for further evaluation. Return immediately if worsening chest pain, vomiting, shortness of breath, fever, coughing of blood. Referrals: Brenna Perez PA [Primary Care Provider] - - Critical Care Critical Care Time: No Attestation: On , the high probability of a clinically significant, sudden or life threatening deterioration of the following system(s) required my full and direct attention, intervention and personal management. The time I documented below is in addition to time spent performing reported procedures but includes the following listed in this critical care notation. Medical Decision Making - Medical Records Medical records reviewed: Yes: I reviewed the patient's medical records. Comment: Seen in this emergency department on 05/08/2020 for chest pain. Cardiac work-up negative. Patient states he has not followed up with anybody since then. - Krishna Inquiry Pt receiving controlled substance: No Vital Signs: 06/29/20 16:32 06/29/20 16:37 06/29/20 16:40 Temperature 98 F 98.1 F Temperature Source Oral Oral Pulse Rate 72 76 Pulse Rate [Radial] 70 Respiratory Rate 20 14 22 Blood Pressure 133/75 Blood Pressure [Right Arm] 142/75 H Blood Pressure Mean Blood Pressure Mean [Right Arm] 97 Blood Pressure Position [Right Arm] Sitting 02 Sat by Pulse Oximetry 98 97 94 L Oxygen Delivery Method Room Air Room Air 06/29/20 16:49 06/29/20 16:57 06/29/20 17:00 Temperature Temperature Source Pulse Rate 82 66 73 Pulse Rate [Radial] Respiratory Rate 24 25 H Blood Pressure 149/74 H 131/78 Blood Pressure [Right Arm] Blood Pressure Mean 87 89 Blood Pressure Mean [Right Arm] Blood Pressure Position [Right Arm] 02 Sat by Pulse Oximetry 95 94 L 94 L Oxygen Delivery Method 06/29/20 17:15 06/29/20 17:30 06/29/20 17:45 Temperature Temperature Source Pulse Rate 70 71 78 Pulse Rate [Radial] Respiratory Rate 21 18 19 Blood Pressure 133/75 Blood Pressure [Right Arm] Blood Pressure Mean 86 Blood Pressure Mean [Right Arm] Blood Pressure Position [Right Arm] 02 Sat by Pulse Oximetry 94 L 93 L 94 L Oxygen Delivery Method 06/29/20 18:04 06/29/20 18:15 06/29/20 18:30 Temperature Temperature Source Pulse Rate 91 H 68 67 Pulse Rate [Radial] Respiratory Rate 17 15 17 Blood Pressure 134/66 Blood Pressure [Right Arm] Blood Pressure Mean 96 Blood Pressure Mean [Right Arm] Blood Pressure Position [Right Arm] 02 Sat by Pulse Oximetry 94 L 93 L 93 L Oxygen Delivery Method 06/29/20 18:45 06/29/20 19:00 06/29/20 19:15 Temperature Temperature Source Pulse Rate 65 66 69 Pulse Rate [Radial] Respiratory Rate 16 19 17 Blood Pressure 126/65 Blood Pressure [Right Arm] Blood Pressure Mean 95 Blood Pressure Mean [Right Arm] Blood Pressure Position [Right Arm] 02 Sat by Pulse Oximetry 93 L 92 L 93 L Oxygen Delivery Method 06/29/20 19:30 06/29/20 19:31 06/29/20 19:45 Temperature Temperature Source Pulse Rate 67 75 Pulse Rate [Radial] Respiratory Rate 21 17 22 Blood Pressure 144/88 H Blood Pressure [Right Arm] Blood Pressure Mean 99 Blood Pressure Mean [Right Arm] Blood Pressure Position [Right Arm] 02 Sat by Pulse Oximetry 96 96 Oxygen Delivery Method - Lab Data Lab Results 06/29/20 16:30: WBC 9.7, RBC 4.74, Hgb 16.3, Hct 48.8, MCV 102.8 H, MCH 34.3 H, MCHC 33.4, RDW 14.5, Plt Count 231, MPV 7.5, Neut % (Auto) 55.9, Lymph % (Auto) 29.6, Porter % (Auto) 6.5, Eos % (Auto) 6.7, Baso % (Auto) 1.2, Neut # (Auto) 5.4, Lymph # (Auto) 2.9, Porter # (Auto) 0.6, Eos # (Auto) 0.7 H, Baso # (Auto) 0.1
--- NOTE | 2020-06-29 16:37 | XR_ITS ---
PROCEDURE: XR CHEST 2V CLINICAL HISTORY: cough COMPARISON: CR XR CHEST PORTABLE from 05/08/2020 FINDINGS: The cardiomediastinal silhouette and pulmonary vascularity are within normal limits. The lungs are clear without infiltrates, suspicious nodules, or pleural effusions. There is an old right 5th rib fracture. IMPRESSION: No acute findings. Dictated by: Mikael Godoy MD 06/29/2020 16:59 Mikael Godoy MD in [facility] 06/29/2020 16:59
[2020-06-29 16:44] LABS: Basophils # 0.1 K/mm3 (0-0.2); Basophils % 1.2 % (0.1-2.0); Eosinophils # 0.7 K/mm3 (0.0-0.4); Eosinophils % 6.7 % (0.1-12.0); Hematocrit 48.8 % (42.0-52.0); Hemoglobin 16.3 g/dL (14.1-18.0); Lymphocytes # 2.9 K/mm3 (0.7-4.5); Lymphocytes % 29.6 % (10-50); Mean Corpuscular HGB Conc 33.4 g/dL (31.8-35.4); Mean Corpuscular Hemoglobin 34.3 pg (27.0-31.2); Mean Corpuscular Volume 102.8 fl (80-94); Mean Platelet Volume 7.5 fl (7.4-10.4); Monocytes # 0.6 K/mm3 (0.1-1.0); Monocytes % 6.5 % (1.7-9.3); Neutrophils # 5.4 K/mm3 (1.8-7.8); Neutrophils % 55.9 % (37.0-80.0); Platelet Count 231 K/mm3 (142-424); Red Blood Count 4.74 M/mm3 (4.60-6.20); Red Cell Distribution Width 14.5 % (11.5-17.5); White Blood Count 9.7 K/mm3 (4.8-10.8)
[2020-06-29 16:46] LABS: Chloride 108 mmol/L (98-107); Sodium 140 mmol/L (136-145)
[2020-06-29 16:49] LABS: Blood Urea Nitrogen 15 mg/dl (9-20); Creatinine Clearance Estimated 117 mL/min (50-200); Estimated Glomerular Filt Rate 90 ml/min (>60); GFR (African American) 109 ML/MIN (>60)
[2020-06-29 16:50] LABS: Calcium 9.1 mg/dl (8.4-10.2); Carbon Dioxide 26 mmol/L (22.0-30.0); Glucose 136 mg/dl (74-100)
[2020-06-29 17:02] LABS: Troponin I < 0.01 ng/ml (0.00-0.034)
[2020-06-29 17:14] LABS: Phenytoin (Dilantin) < 3.0 ug/ml (10-20)
[2020-06-29 18:09] LABS: Microscopic, Urine URINE MICROSCOPIC (MICROSCOPIC)
[2020-06-29 18:12] LABS: Appearance,Urine CLEAR (Clear); Bilirubin,Urine Negative (Negative); Blood, Urine Negative (Negative); Color,Urine YELLOW (Yellow); Glucose,Urine (UA) Negative (Negative); Ketones,Urine Negative (Negative); Leukocyte Esterase,Urine Negative (Negative); Nitrate,Urine Negative (Negative); Protein,Urine Negative (Negative); Specific Gravity, Urine >= 1.030 (1.005-1.030); Urobilinogen,Urine 0.2 EU/dl (0.2)
[2020-06-29 20:16] LABS: Troponin I < 0.01 ng/ml (0.00-0.034)
== END 2020-06-29 20:36 | disposition home or self-care (01) ==
PROVIDERS: Emergency Provider Emergency Medicine; PCP Physician Assistant
DX: R07.89 Other chest pain (principal); F41.8 Other specified anxiety disorders; J44.9 Chronic obstructive pulmonary disease, unspecified; K21.9 Gastro-esophageal reflux disease without esophagitis; F17.210 Nicotine dependence, cigarettes, uncomplicated; Z79.899 Other long term (current) drug therapy
CPT/HCPCS: 71046; 80048; 80185; 81001; 84484; 85025; 93005; 99283

== ENCOUNTER → 2020-07-11 12:00 | Outpatient (CLI) | payer MEDICARE, MEDICAID, SELFPAY ==
[2020-07-11 12:55] LABS: Phenytoin (Dilantin) 4.7 ug/ml (10-20)
[2020-07-11 13:35] LABS: Hemoglobin A1C 5.6 % (4.0-6.0)
[2020-07-11 13:59] LABS: Vitamin B12 889 pg/mL (239-931)
== END ==
PROVIDERS: Visit Provider Specialist
DX: R94.5 Abnormal results of liver function studies (principal); E11.9 Type 2 diabetes mellitus without complications
CPT/HCPCS: 36415; 80185; 80186; 82607; 82746; 83036

== ENCOUNTER → 2020-07-28 12:03 | Outpatient (CLI) | payer MEDICARE, MEDICAID, SELFPAY ==
--- NOTE | 2020-07-28 12:03 | MR_ITS ---
PROCEDURE: MR HEAD/BRAIN WO/W CON CLINICAL INDICATION: seizures Pt has hx of seizures. Memory loss xyrs. Migraine headache and dizziness. COMPARISON: CT CT HEAD/BRAIN WO CON from 06/14/2020 TECHNIQUE: Routine multiplanar multi echo sequences are performed without gadolinium enhancement. FINDINGS: No midline shift, mass effect, intracranial hemorrhage, hydrocephalus, or acute infarction is evident. There is bilateral cerebellar in vermian atrophy. No focal cerebellar lesion is evident. Incidental note is made of a developmental venous anomaly in the left frontal area with a draining vein from the anterior horn of the left lateral ventricle to the frontal cortex.. The cerebellopontine angle, midbrain, and brainstem have an unremarkable appearance. There are few scattered small white matter hyperintensities which are nonspecific. No enhancing lesions are evident aside from the developmental venous anomaly. No evidence of intracranial hemorrhage the the pituitary, optic chiasm, corpus callosum have an unremarkable appearance. No mastoid effusion or sinus air-fluid level. There is mild mucosal thickening of the ethmoid sinus on the right. IMPRESSION: 1. No acute finding. 2. Developmental venous anomaly noted in the left frontal lobe. 3. Scant T2 white matter hyperintensities nonspecific. Microangiopathic changes or migraine headache would be a consideration. Demyelinating process not totally excluded but would be an atypical appearance. Dictated by: Mikael Godoy MD 07/31/2020 12:37 Mikael Godoy MD in [facility] 07/31/2020 12:37
== END ==
PROVIDERS: PCP Physician Assistant; Visit Provider Specialist
DX: G40.909 Epilepsy, unspecified, not intractable, without status epilepticus (principal)
CPT/HCPCS: 70553; A9576

== ENCOUNTER → 2020-08-28 15:42 | Outpatient (CLI) | payer MEDICARE, MEDICAID, SELFPAY | PROVIDERS: Visit Provider Family Medicine | DX: L29.3 Anogenital pruritus, unspecified; N48.89 Other specified disorders of penis; S30.815A Abrasion of unspecified external genital organs, male, initial encounter | CPT/HCPCS: 86695; 86696; 86790 ==

== ENCOUNTER → 2020-10-26 09:41 | Outpatient (CLI) | payer MEDICARE, MEDICAID, SELFPAY ==
[2020-10-26 11:07] LABS: Basophils # 0.1 K/mm3 (0-0.2); Basophils % 1.7 % (0.1-2.0); Eosinophils # 0.4 K/mm3 (0.0-0.4); Eosinophils % 6.1 % (0.1-12.0); Hemoglobin 17.4 g/dL (14.1-18.0); Lymphocytes # 2.2 K/mm3 (0.7-4.5); Lymphocytes % 37.2 % (10-50); Mean Corpuscular HGB Conc 34.1 g/dL (31.8-35.4); Mean Corpuscular Hemoglobin 32.8 pg (27.0-31.2); Mean Corpuscular Volume 96.2 fl (80-94); Mean Platelet Volume 8.3 fl (7.4-10.4); Monocytes # 0.4 K/mm3 (0.1-1.0); Monocytes % 6.6 % (1.7-9.3); Neutrophils # 2.9 K/mm3 (1.8-7.8); Neutrophils % 48.4 % (37.0-80.0); Platelet Count 223 K/mm3 (142-424); Red Cell Distribution Width 13.6 % (11.5-17.5)
[2020-10-26 11:27] LABS: Prothrombin Time 10.9 seconds (10.1-12.5)
[2020-10-26 11:31] LABS: INR 0.92 (0.9-1.1)
[2020-10-26 14:01] LABS: Chloride 105 mmol/L (98-107); Potassium 4.6 mmoL/L (3.5-5.1); Sodium 140 mmol/L (136-145)
[2020-10-26 14:03] LABS: Blood Urea Nitrogen 11 mg/dl (9-20); Estimated Glomerular Filt Rate 71 ml/min (>60); GFR (African American) 86 ML/MIN (>60)
[2020-10-26 14:04] LABS: Alanine Aminotransferase 39 U/L (12-78); Albumin Level 4.8 g/dl (3.5-5.0); Albumin/Globulin Ratio 1.5 (1.1-1.8); Alkaline Phosphatase 99 U/L (38-126); Anion Gap 11.6 mEq/L (5-15); Aspartate Amino Transferase 45 U/L (17-59); Bilirubin,Total 1.9 mg/dl (0.2-1.3); Calcium 9.3 mg/dl (8.4-10.2); Carbon Dioxide 28 mmol/L (22.0-30.0); Globulin 3.2 g/dL (1.3-3.2); Glucose 89 mg/dl (74-100)
[2020-10-27 07:23] LABS: HIV Screen 4th Generation wRfx Non Reactive (Non Reactive)
[2020-10-28 07:28] LABS: Hep A Ab, IgM Negative (Negative); Hep A Ab, Total Positive (Negative); Hep B Core Ab, Total Positive (Negative); Hep B Surface Ab, Qual Reactive (.); Hepatitis B Surface Antigen Negative (Negative); Hepatitis C Antibody >11.0 s/co ratio (0.0-0.9)
[2020-10-30 18:49] LABS: HCV Genotype Charge YES; Hepatitis C Genotype 1a (.)
[2020-10-31 00:08] LABS: ALT (SGPT) P5P 38 IU/L (0-55); Alpha 2-Macroglobulins, Qn 261 mg/dL (110-276); Apolipoprotein A-1 115 mg/dL (101-178); Bilirubin, Total 1.1 mg/dL (0.0-1.2); Fibrosis Score 0.46 (0.00-0.21); Fibrosis Stage F1-F2 (.); GGT 17 IU/L (0-65); Haptoglobin 152 mg/dL (23-355); Necroinflammat Activity Grade A0-A1 (.); Necroinflammat Activity Score 0.25 (0.00-0.17)
== END ==
PROVIDERS: Visit Provider Nurse Practitioner Family
DX: B18.2 Chronic viral hepatitis C (principal); B19.20 Unspecified viral hepatitis C without hepatic coma; Z11.59 Encounter for screening for other viral diseases; Z91.89 Other specified personal risk factors, not elsewhere classified; M53.86 Other specified dorsopathies, lumbar region; B17.9 Acute viral hepatitis, unspecified; Z11.4 Encounter for screening for human immunodeficiency virus [HIV]
CPT/HCPCS: 36415; 80053; 81596; 85025; 85610; 86703; 86704; 86706; 86708; 87340; 87380; 87522; 87902; G0432

== ENCOUNTER → 2020-11-14 11:40 | Outpatient (CLI) | payer MEDICARE, MEDICAID, SELFPAY ==
[2020-11-14 13:23] LABS: Chloride 105 mmol/L (98-107); Potassium 4.7 mmoL/L (3.5-5.1); Sodium 139 mmol/L (136-145)
[2020-11-14 13:26] LABS: Alanine Aminotransferase 25 U/L (12-78); Albumin Level 4.3 g/dl (3.5-5.0); Albumin/Globulin Ratio 1.4 (1.1-1.8); Alkaline Phosphatase 140 U/L (38-126); Anion Gap 14.7 mEq/L (5-15); Aspartate Amino Transferase 29 U/L (17-59); Bilirubin,Total 0.4 mg/dl (0.2-1.3); Blood Urea Nitrogen 12 mg/dl (9-20); Carbon Dioxide 24 mmol/L (22.0-30.0); Estimated Glomerular Filt Rate 80 ml/min (>60); GFR (African American) 97 ML/MIN (>60); Glucose 87 mg/dl (74-100); Total Protein,Serum 7.3 g/dl (6.3-8.2)
[2020-11-14 14:06] LABS: Phenytoin (Dilantin) 6.5 ug/ml (10-20)
== END ==
PROVIDERS: Visit Provider Specialist
DX: G40.909 Epilepsy, unspecified, not intractable, without status epilepticus (principal); Z51.81 Encounter for therapeutic drug level monitoring
CPT/HCPCS: 36415; 80053; 80185

== ENCOUNTER 2020-12-13 10:25 | Emergency (ER) | payer MEDICARE, MEDICAID, SELFPAY ==
[2020-12-13 10:27] VITALS: BP 135/89; PULSE 67; RESP 20; TEMP 36.7; O2SAT 96; BMI 26.6
--- NOTE | 2020-12-13 10:54 | XR_ITS ---
PROCEDURE: XR KUB CLINICAL INDICATION: lower abdo pain COMPARISON: CT CT ABDOMEN PELVIS W CON from 09/13/2019 FINDINGS: Nonspecific bowel gas pattern with a few gas-filled loops of small bowel which are nondistended. No definite evidence of obstruction. No abnormal calcifications or acute bony anomalies. IMPRESSION: No acute findings. Dictated by: Mikael Godoy MD 12/13/2020 11:38 Mikael Godoy MD in [facility] 12/13/2020 11:38
[2020-12-13 11:00] VITALS: BP 129/90; PULSE 63; O2SAT 93
[2020-12-13 11:50] LABS: Microscopic, Urine URINE MICROSCOPIC (MICROSCOPIC)
[2020-12-13 11:54] LABS: Appearance,Urine CLEAR (Clear); Basophils # 0.1 K/mm3 (0-0.2); Basophils % 1.5 % (0.1-2.0); Blood, Urine Negative (Negative); Chloride 108 mmol/L (98-107); Color,Urine YELLOW (Yellow); Eosinophils # 0.3 K/mm3 (0.0-0.4); Eosinophils % 4.4 % (0.1-12.0); Glucose,Urine (UA) Negative (Negative); Hematocrit 52.5 % (42.0-52.0); Hemoglobin 17.4 g/dL (14.1-18.0); Ketones,Urine TRACE (Negative); Leukocyte Esterase,Urine Negative (Negative); Lymphocytes % 31.2 % (10-50); Mean Corpuscular HGB Conc 33.2 g/dL (31.8-35.4); Mean Corpuscular Hemoglobin 32.6 pg (27.0-31.2); Mean Corpuscular Volume 98.2 fl (80-94); Mean Platelet Volume 8.2 fl (7.4-10.4); Monocytes # 0.4 K/mm3 (0.1-1.0); Monocytes % 6.7 % (1.7-9.3); Neutrophils # 3.5 K/mm3 (1.8-7.8); Neutrophils % 56.2 % (37.0-80.0); Nitrate,Urine Negative (Negative); PH,Urine 5.5 (5.0-8.5); Platelet Count 244 K/mm3 (142-424); Potassium 4.1 mmoL/L (3.5-5.1); Protein,Urine TRACE (Negative); Red Blood Count 5.35 M/mm3 (4.60-6.20); Sodium 141 mmol/L (136-145); Specific Gravity, Urine >= 1.030 (1.005-1.030); White Blood Count 6.3 K/mm3 (4.8-10.8)
[2020-12-13 11:57] LABS: Alanine Aminotransferase 34 U/L (12-78); Albumin Level 4.2 g/dl (3.5-5.0); Albumin/Globulin Ratio 1.4 (1.1-1.8); Alkaline Phosphatase 91 U/L (38-126); Anion Gap 12.1 mEq/L (5-15); Aspartate Amino Transferase 42 U/L (17-59); Bilirubin,Total 0.5 mg/dl (0.2-1.3); Blood Urea Nitrogen 6 mg/dl (9-20); Carbon Dioxide 25 mmol/L (22.0-30.0); Creatinine Clearance Estimated 101 mL/min (50-200); Estimated Glomerular Filt Rate 80 ml/min (>60); GFR (African American) 97 ML/MIN (>60); Glucose 105 mg/dl (74-100); Total Protein,Serum 7.2 g/dl (6.3-8.2)
[2020-12-13 12:13] LABS: Bilirubin,Urine Negative (Negative)
--- NOTE | 2020-12-13 12:14 | HMH.EDGENADL ---
ED Disposition Clinical Impression: Nausea Epileptic seizure Qualifiers: Epilepsy type: unspecified Intractability: not intractable Status epilepticus: without status epilepticus Qualified Code(s): G40.909 - Epilepsy, unspecified, not intractable, without status epilepticus Hepatitis C Qualifiers: Viral hepatitis chronicity: chronic Hepatic coma status: without hepatic coma Qualified Code(s): B18.2 - Chronic viral hepatitis C Disposition: Home, Self-Care Condition on Discharge: Good Instructions: DI for Seizure Disorder -- Adult, DI for Seizure (Not Epilepsy/Seizure Disorder), DI for Seizure Disorder -- Child Prescriptions: Cenobamate [Xcopri] 12.5 tab PO DAILY #12 tab Transmission Status: Received by [facility] Ondansetron [Zofran 4mg ODT] 4 mg PO BIDP PRN #10 tab PRN Reason: Nausea Transmission Status: Received by [facility] Referrals: Erik Mart MD [Primary Care Provider] - - Critical Care Critical Care Time: No Attestation: On 12/13/20, the high probability of a clinically significant, sudden or life threatening deterioration of the following system(s) required my full and direct attention, intervention and personal management. The time I documented below is in addition to time spent performing reported procedures but includes the following listed in this critical care notation. Medical Decision Making - Krishna Inquiry Pt receiving controlled substance: Yes Krishna was queried for this patient: Yes Risks and benefits of using a controlled substance: were not discussed with pt by me Comment: Seizure med is controlled, no opiates Vital Signs: 12/13/20 10:27 12/13/20 11:00 12/13/20 14:27 Temperature 98.1 F 97.8 F Temperature Source Oral Pulse Rate 63 66 Pulse Rate [Left Radial] 67 Respiratory Rate 20 20 Blood Pressure 129/90 127/86 Blood Pressure [Right Arm] 135/89 Blood Pressure Mean [Right Arm] 104 Blood Pressure Source [Right Arm] Automatic Cuff Blood Pressure Position [Right Arm] Sitting 02 Sat by Pulse Oximetry 96 93 L Oxygen Delivery Method Room Air Room Air - Lab Data Lab Results 12/13/20 11:37: Urine Color Yellow, Urine Appearance Clear, Urine pH 5.5, Ur Specific [place] >= 1.030, Urine Protein Trace, Urine Glucose (UA) Negative, Urine Ketones Trace, Urine Blood Negative, Urine Nitrate Negative, Urine Bilirubin Negative, Urine Urobilinogen 1.0, Ur Leukocyte Esterase Negative, Urine RBC None, Urine WBC 3-5, Ur Squamous Epith Cells Occasional, Urine Bacteria Trace, Urine Mucus 2+ 12/13/20 11:37: WBC 6.3, RBC 5.35, Hgb 17.4, Hct 52.5 H, MCV 98.2 H, MCH 32.6 H, MCHC 33.2, RDW 14.0, Plt Count 244, MPV 8.2, Neut % (Auto) 56.2, Lymph % (Auto) 31.2, Coffey % (Auto) 6.7, Eos % (Auto) 4.4, Baso % (Auto) 1.5, Neut # (Auto) 3.5, Lymph # (Auto) 2.0, Coffey # (Auto) 0.4, Eos # (Auto) 0.3, Baso # (Auto) 0.1 12/13/20 11:37: Sodium 141, Potassium 4.1, Chloride 108 H, Carbon Dioxide 25, Anion Gap 12.1, BUN 6 L, Creatinine 1.00, Estimated Creat Clear 101, Estimated GFR 80, Est GFR ( Amer) 97, Glucose 105 H, Calcium 9.0, Total Bilirubin 0.5, AST 42, ALT 34, Alkaline Phosphatase 91, Total Protein 7.2, Albumin 4.2, Globulin 3.0, Albumin/Globulin Ratio 1.4 Result diagrams: 12/13/20 11:37 12/13/20 11:37 Medical Decision Narrative: Patient is a 50-year-old male presents the ED today for further evaluation of having seizures daily at home. Patient has a known epileptic, but he has not been taking his seizure medications. Differential diagnosis includes medication noncompliance, breakthrough seizure, drug use, electrolyte abnormalities, hypoglycemia. Patient is well-appearing on initial evaluation in no acute distress with stable vital signs. Patient also wishes to have his liver enzymes checked, and as we are obtaining blood work will check a CMP. On further history and review patient has been noncompliant with his seizure medications in the past, but on review of doc
[2020-12-13 12:17] LABS: Bacteria,Urine Trace /lpf; Mucus,Urine 2+ /lpf; Squamous Epithelial Cell,Urine Occasional #/hpf (0-5)
--- NOTE | 2020-12-13 12:21 | PC.NURSE ---
contacted Dr. Gutierrez office per ER request, spoke with Ellis, waiting sleeping car conductor back from her at this time r/t getting pt a sooner appt with their office.
--- NOTE | 2020-12-13 12:27 | PC.NURSE ---
spoke with harshal again at this time, states unable to move pts appt up any sooner than Dec 21. States they have had issues with medication compliance with pt. Relayed this information to PEARL SUMMERS
[2020-12-13 14:27] VITALS: BP 127/86; PULSE 66; RESP 20; TEMP 36.6; O2SAT 96
== END 2020-12-13 14:27 | disposition home or self-care (01) ==
PROVIDERS: Emergency Provider Student in an Organized Health Care Education/Training Program; PCP Family Medicine
DX: R11.0 Nausea (principal); G40.909 Epilepsy, unspecified, not intractable, without status epilepticus; B18.2 Chronic viral hepatitis C; Z88.8 Allergy status to other drugs, medicaments and biological substances; J44.9 Chronic obstructive pulmonary disease, unspecified; F41.9 Anxiety disorder, unspecified; F32.9 Major depressive disorder, single episode, unspecified; K21.9 Gastro-esophageal reflux disease without esophagitis; E78.5 Hyperlipidemia, unspecified; G43.909 Migraine, unspecified, not intractable, without status migrainosus; Z72.0 Tobacco use
CPT/HCPCS: 36415; 74018; 80053; 81001; 85025; 99282

== ENCOUNTER → 2021-01-08 11:34 | Outpatient (POV) | payer MEDICARE, MEDICAID, SELFPAY ==
[2021-01-10 11:20] LABS: Hep B Core Ab, Total Positive (Negative); Hepatitis B Core Antibody IgM Negative (Negative); Hepatitis B Surface Antigen Negative (Negative)
[2021-01-11 22:42] LABS: HBV IU/mL HBV DNA not detected IU/mL (.)
== END ==
PROVIDERS: Visit Provider Nurse Practitioner Family
DX: B18.8 Other chronic viral hepatitis (principal)
CPT/HCPCS: 36415; 86704; 87340; 87517; 87522

== ENCOUNTER → 2021-01-12 13:54 | Outpatient (CLI) | payer MEDICARE, MEDICAID, SELFPAY ==
[2021-01-12 14:17] LABS: Alanine Aminotransferase 19 U/L (12-78); Albumin/Globulin Ratio 1.3 (1.1-1.8); Alkaline Phosphatase 102 U/L (38-126); Anion Gap 9.3 mEq/L (5-15); Aspartate Amino Transferase 35 U/L (17-59); Bilirubin,Total 0.6 mg/dl (0.2-1.3); Blood Urea Nitrogen 9 mg/dl (9-20); Calcium 9.2 mg/dl (8.4-10.2); Carbon Dioxide 27 mmol/L (22.0-30.0); Chloride 107 mmol/L (98-107); Estimated Glomerular Filt Rate 90 ml/min (>60); GFR (African American) 109 ML/MIN (>60); Globulin 3.2 g/dL (1.3-3.2); Glucose 86 mg/dl (74-100); Potassium 4.3 mmoL/L (3.5-5.1); Sodium 139 mmol/L (136-145); Total Protein,Serum 7.2 g/dl (6.3-8.2)
== END ==
PROVIDERS: Visit Provider Family Medicine
DX: J44.9 Chronic obstructive pulmonary disease, unspecified (principal)
CPT/HCPCS: 80053

== ENCOUNTER 2021-02-03 11:03 | Emergency (ER) | payer MEDICARE, MEDICAID, SELFPAY ==
--- NOTE | 2021-02-03 11:10 | HMH.EDGENADL ---
ED Disposition Clinical Impression: Fatigue Qualifiers: Fatigue type: unspecified Qualified Code(s): R53.83 - Other fatigue Disposition: Home, Self-Care Condition on Discharge: Good Additional Instructions: If your tiredness continues, call your primary care provider on Friday for follow-up. Referrals: Erik Mart MD [Primary Care Provider] - - Critical Care Critical Care Time: No Attestation: On , the high probability of a clinically significant, sudden or life threatening deterioration of the following system(s) required my full and direct attention, intervention and personal management. The time I documented below is in addition to time spent performing reported procedures but includes the following listed in this critical care notation. Medical Decision Making - Krishna Inquiry Pt receiving controlled substance: No Vital Signs: 02/03/21 11:13 Temperature 98.2 F Temperature Source Oral Pulse Rate [Radial] 75 Respiratory Rate 16 Blood Pressure [Right Arm] 161/91 H Blood Pressure Mean [Right Arm] 114 Blood Pressure Position [Right Arm] Sitting 02 Sat by Pulse Oximetry 98 Oxygen Delivery Method Room Air - Lab Data Lab Results 02/03/21 11:35: Troponin I < 0.01 02/03/21 11:35: Sodium 138, Potassium 4.7, Chloride 103, Carbon Dioxide 29, Anion Gap 10.7, BUN 10, Creatinine 0.90, Estimated Creat Clear 113, Estimated GFR 90, Est GFR ( Amer) 109, Glucose 90, Calcium 8.7, Total Bilirubin 0.3, AST 37, ALT 21, Alkaline Phosphatase 82, Total Protein 6.8, Albumin 3.9, Globulin 2.9, Albumin/Globulin Ratio 1.3, Phenytoin < 3.0 L 02/03/21 11:35: SARS-CoV-2 (PCR) Not detected, Influenza A Untype (PCR) Not detected, Influenza Type B (PCR) Not detected 02/03/21 11:35: WBC 7.1, RBC 4.71, Hgb 15.7, Hct 48.3, MCV 102.7 H, MCH 33.4 H, MCHC 32.6, RDW 14.3, Plt Count 220, MPV 7.9, Neut % (Auto) 46.7, Lymph % (Auto) 38.8, [place] % (Auto) 6.9, Eos % (Auto) 6.0, Baso % (Auto) 1.5, Neut # (Auto) 3.3, Lymph # (Auto) 2.8, [place] # (Auto) 0.5, Eos # (Auto) 0.4, Baso # (Auto) 0.1 02/03/21 12:23: Urine Color Yellow, Urine Appearance Clear, Urine pH 6.0, Ur Specific [place] 1.025, Urine Protein Negative, Urine Glucose (UA) Negative, Urine Ketones Negative, Urine Blood Negative, Urine Nitrate Negative, Urine Bilirubin Negative, Urine Urobilinogen 0.2, Ur Leukocyte Esterase Negative, Urine RBC None, Urine WBC None, Ur Squamous Epith Cells None, Urine Bacteria None Result diagrams: 02/03/21 11:35 02/03/21 11:35 Orders (Tests/Meds): ORDERS Category Date Time Status Troponin I Q3H Lab 02/03/21 14:30 Ordered Troponin I Q3H Lab 02/03/21 17:30 Ordered - Radiology Data #1 Image(s): Chest Image Reviewed: Yes I reviewed the patient's radiology image, Yes I have reviewed radiologist's interpretation PROCEDURE INFORMATION: Exam: XR Chest Exam date and time: 02/03/2021 11:18 AM Age: 50 years old Clinical indication: Cough; Additional info: Weak, cough- covid test pending TECHNIQUE: Imaging protocol: XR of the chest. Views: 2 views. COMPARISON: CR XR CHEST 2V 06/29/2020 4:38 PM FINDINGS: Lungs: No focal airspace disease. Pleural spaces: Unremarkable. No pleural effusion. No pneumothorax. Heart/Mediastinum: Cardiomediastinal silhouette is within normal limits. Bones/joints: Remote bilateral rib fractures. IMPRESSION: No acute cardiopulmonary abnormality. - ECG Data Tracing #1 EKG interpreted by Jaime Sherwood MD: Rhythm: sinus bradycardia Rate: 56 [place]: normal Ectopy: none Conduction: normal ST Segment Changes: none T Wave Changes: none Q Waves: none No evidence of acute ischemia or injury General Adult HPI - General Stated complaint: weak, back pain Time Seen by Provider: 02/03/21 11:13 - History of Present Illness HPI narrative: Woke up this morning feeling generally weak. Denies any other acute sym
[2021-02-03 11:13] VITALS: BP 161/91; PULSE 75; RESP 16; TEMP 36.8; O2SAT 98; BMI 26.6
--- NOTE | 2021-02-03 11:18 | XR_ITS ---
PROCEDURE INFORMATION: Exam: XR Chest Exam date and time: 02/03/2021 11:18 AM Age: 50 years old Clinical indication: Cough; Additional info: Weak, cough- covid test pending TECHNIQUE: Imaging protocol: XR of the chest. Views: 2 views. COMPARISON: CR XR CHEST 2V 06/29/2020 4:38 PM FINDINGS: Lungs: No focal airspace disease. Pleural spaces: Unremarkable. No pleural effusion. No pneumothorax. Heart/Mediastinum: Cardiomediastinal silhouette is within normal limits. Bones/joints: Remote bilateral rib fractures. IMPRESSION: No acute cardiopulmonary abnormality.
--- NOTE | 2021-02-03 11:49 | ECG_ITS ---
APPROVED REPORT Exam: Resting ECG HR:56 bpm ECG Measurements Heart Rate 56 AXES MD 162 P 60 QRSd 98 QRS 41 QT 396 T 43 QTc 382 Conclusion Sinus bradycardia Otherwise normal ECG Electronically signed by : Augustine Garcias MD 02/04/2021 08:47:11
[2021-02-03 11:51] LABS: Coronavirus 19, PCR Not Detected (NotDetected); Influenza A, PCR Not Detected (NotDetected); Influenza B, PCR Not Detected (NotDetected)
[2021-02-03 11:54] LABS: Basophils # 0.1 K/mm3 (0-0.2); Basophils % 1.5 % (0.1-2.0); Eosinophils # 0.4 K/mm3 (0.0-0.4); Hematocrit 48.3 % (42.0-52.0); Hemoglobin 15.7 g/dL (14.1-18.0); Lymphocytes # 2.8 K/mm3 (0.7-4.5); Lymphocytes % 38.8 % (10-50); Mean Corpuscular HGB Conc 32.6 g/dL (31.8-35.4); Mean Corpuscular Hemoglobin 33.4 pg (27.0-31.2); Mean Corpuscular Volume 102.7 fl (80-94); Mean Platelet Volume 7.9 fl (7.4-10.4); Monocytes # 0.5 K/mm3 (0.1-1.0); Monocytes % 6.9 % (1.7-9.3); Neutrophils # 3.3 K/mm3 (1.8-7.8); Neutrophils % 46.7 % (37.0-80.0); Platelet Count 220 K/mm3 (142-424); Red Blood Count 4.71 M/mm3 (4.60-6.20); Red Cell Distribution Width 14.3 % (11.5-17.5); White Blood Count 7.1 K/mm3 (4.8-10.8)
[2021-02-03 12:07] LABS: Alanine Aminotransferase 21 U/L (12-78); Albumin Level 3.9 g/dl (3.5-5.0); Albumin/Globulin Ratio 1.3 (1.1-1.8); Alkaline Phosphatase 82 U/L (38-126); Anion Gap 10.7 mEq/L (5-15); Aspartate Amino Transferase 37 U/L (17-59); Bilirubin,Total 0.3 mg/dl (0.2-1.3); Blood Urea Nitrogen 10 mg/dl (9-20); Calcium 8.7 mg/dl (8.4-10.2); Carbon Dioxide 29 mmol/L (22.0-30.0); Chloride 103 mmol/L (98-107); Creatinine Clearance Estimated 113 mL/min (50-200); Estimated Glomerular Filt Rate 90 ml/min (>60); GFR (African American) 109 ML/MIN (>60); Globulin 2.9 g/dL (1.3-3.2); Glucose 90 mg/dl (74-100); Potassium 4.7 mmoL/L (3.5-5.1); Sodium 138 mmol/L (136-145); Total Protein,Serum 6.8 g/dl (6.3-8.2)
[2021-02-03 12:09] LABS: Phenytoin (Dilantin) < 3.0 ug/ml (10-20)
[2021-02-03 12:18] LABS: Troponin I < 0.01 ng/ml (0.00-0.034)
[2021-02-03 12:29] LABS: Microscopic, Urine URINE MICROSCOPIC (MICROSCOPIC)
[2021-02-03 12:32] LABS: Appearance,Urine CLEAR (Clear); Bilirubin,Urine Negative (Negative); Blood, Urine Negative (Negative); Color,Urine YELLOW (Yellow); Glucose,Urine (UA) Negative (Negative); Ketones,Urine Negative (Negative); Leukocyte Esterase,Urine Negative (Negative); Nitrate,Urine Negative (Negative); Protein,Urine Negative (Negative); Specific Gravity, Urine 1.025 (1.005-1.030); Urobilinogen,Urine 0.2 EU/dl (0.2)
[2021-02-03 13:03] VITALS: BP 150/91; PULSE 57; RESP 16; TEMP 36.9; O2SAT 96
== END 2021-02-03 13:04 | disposition home or self-care (01) ==
PROVIDERS: Emergency Provider Emergency Medicine; PCP Family Medicine
DX: R53.83 Other fatigue (principal); Z20.822 Contact with and (suspected) exposure to COVID-19; B18.2 Chronic viral hepatitis C; F41.8 Other specified anxiety disorders; K21.9 Gastro-esophageal reflux disease without esophagitis; I10 Essential (primary) hypertension; E78.5 Hyperlipidemia, unspecified; F19.11 Other psychoactive substance abuse, in remission; F17.210 Nicotine dependence, cigarettes, uncomplicated
CPT/HCPCS: 71046; 80053; 80185; 81001; 84484; 85025; 93005; 99283; C9803; U0003; U0005

== ENCOUNTER 2021-03-03 16:06 | Emergency (ER) | payer MEDICARE, MEDICAID, SELFPAY ==
[2021-03-03 16:15] VITALS: BP 156/102; PULSE 81; RESP 18; TEMP 36.7; O2SAT 96; BMI 25.1
--- NOTE | 2021-03-03 16:26 | US_ITS ---
PROCEDURE INFORMATION: Exam: US Scrotum Exam date and time: 03/03/2021 4:26 PM Age: 50 years old Clinical indication: Scrotum pain; Prior surgery; Surgery date: 6+ months; Surgery type: Vasectomy; Additional info: R/O torsion pain RT testicle no known recent trauma TECHNIQUE: Imaging protocol: Real-time ultrasound of the scrotum and contents with color Doppler and image documentation. COMPARISON: CT ABDOMEN PELVIS W CON 09/13/2019 9:27 PM FINDINGS: Right testicle: Microlithiasis. No mass. No torsion. Normal vascular flow. Left testicle: Microlithiasis. No mass. No torsion. Normal vascular flow. Epididymides: Normal. Scrotum: Normal. IMPRESSION: 1. No evidence of torsion or acute disease 2. Testicular microlithiasis incidentally noted
[2021-03-03 17:54] LABS: Microscopic, Urine URINE MICROSCOPIC (MICROSCOPIC)
[2021-03-03 17:57] LABS: Appearance,Urine CLEAR (Clear); Bilirubin,Urine Negative (Negative); Blood, Urine Negative (Negative); Color,Urine YELLOW (Yellow); Glucose,Urine (UA) Negative (Negative); Ketones,Urine Negative (Negative); Leukocyte Esterase,Urine Negative (Negative); Nitrate,Urine Negative (Negative); Protein,Urine Negative (Negative); Specific Gravity, Urine >= 1.030 (1.005-1.030); Urobilinogen,Urine 0.2 EU/dl (0.2)
--- NOTE | 2021-03-03 17:58 | HMH.EDGENADL ---
ED Disposition Clinical Impression: Testicular pain, right Disposition: Home, Self-Care Condition on Discharge: Good Referrals: Erik Matr MD [Primary Care Provider] - - Critical Care Critical Care Time: No Attestation: On 03/03/21, the high probability of a clinically significant, sudden or life threatening deterioration of the following system(s) required my full and direct attention, intervention and personal management. The time I documented below is in addition to time spent performing reported procedures but includes the following listed in this critical care notation. Medical Decision Making - Medical Records Medical records reviewed: Yes: I reviewed the patient's medical records. - Krishna Inquiry Pt receiving controlled substance: Yes Krishna was queried for this patient: No Risks and benefits of using a controlled substance: were discussed with pt by me Vital Signs: 03/03/21 16:15 Temperature 98.1 F Temperature Source Oral Pulse Rate [Left Radial] 81 Respiratory Rate 18 Blood Pressure [Right Arm] 156/102 H Blood Pressure Mean [Right Arm] 120 02 Sat by Pulse Oximetry 96 Oxygen Delivery Method Room Air Orders (Tests/Meds): ORDERS Category Date Time Status UA [Urinalysis and Microscopic] Stat Lab 03/03/21 17:50 Received Medical Decision Narrative: Patient is a 50-year-old male presents the ED today for further evaluation of right testicular pain which is now resolved. Patient is well-appearing on initial evaluation in no acute distress stable vital signs. On examination patient does not have any evidence of testicular torsion, there is no pain, swelling, testicular lie is normal with intact cremasteric reflex. We will order a ultrasound to evaluate for testicular torsion and obtain a urinalysis. Ultrasound obtained with no evidence of testicular torsion with blood flow to the bilateral testicles on ultrasound examination. This is encouraging given exam findings, patient is reporting initially that he is having numbness of the testicle, however states that after the ultrasound was obtained he is not having this anymore. UA obtained as well with no evidence of urinary tract infection, patient offered STD testing and is declining at this time. and return precautions to return to the ED with any new or worsening symptoms and is verbalized understanding with this plan. General Adult HPI - General Chief complaint: PAIN Stated complaint: pain lower stomach Time Seen by Provider: 03/03/21 16:15 Mode of Arrival: Ambulatory Limitations: No Limitations Description of Symptoms (Recalled from ER Triage Doc. by RN): pt to ed per pvt car. pt states he woke up this morning feeling mild right testicular pain that raidates into his lower abd. pt states he has been lifting heavy weights and thinks he pulled something. pt also reports lower back pain. - History of Present Illness HPI narrative: Patient is a 50-year-old male who presents the ED today with right-sided testicular pain. Patient states that this pain has been present on and off for the last couple of days, states that had stopped shortly after arrival to the emergency department today. Patient is describing the feeling of numbness not over the testicular skin but on the testicle itself on the right side, states that he cannot feel it when he touches it and can feel the one on the left side. Patient states that his pain has been off and on, moderate to severe at times, states that he believes he may have slept funny on it which caused it to be worse this morning. Patient states he has been otherwise healthy recently with no fevers, no lower abdominal pain, no nausea or vomiting, states that he has had some difficulty urinating lately, but states that this has been more of a chronic problem. - Related Data Previous Rx's Medication Instructions Recorded albuterol sulfate 90 mcg/actuation 2 puff INHALATION Q4-6H PRN 90 06/02/20 aero
[2021-03-03 18:08] LABS: Bacteria,Urine Trace /lpf; Squamous Epithelial Cell,Urine Occasional #/hpf (0-5); WBC,Urine Occasional #/hpf (0-3)
[2021-03-03 18:26] VITALS: BP 132/74; PULSE 78; RESP 18; TEMP 36.8; O2SAT 98
== END 2021-03-03 18:28 | disposition home or self-care (01) ==
PROVIDERS: Emergency Provider Student in an Organized Health Care Education/Training Program; PCP Family Medicine
DX: N50.811 Right testicular pain (principal); F41.8 Other specified anxiety disorders; E78.5 Hyperlipidemia, unspecified; I10 Essential (primary) hypertension; J44.9 Chronic obstructive pulmonary disease, unspecified; K21.9 Gastro-esophageal reflux disease without esophagitis; F17.210 Nicotine dependence, cigarettes, uncomplicated
CPT/HCPCS: 76870; 81001; 99282

== ENCOUNTER → 2021-03-06 13:08 | Outpatient (POV) | payer MEDICARE, MEDICAID, SELFPAY ==
[2021-03-06 13:27] VITALS: BP 128/85; PULSE 83; RESP 20; TEMP 36.2; O2SAT 96; BMI 25.9
--- NOTE | 2021-03-06 14:43 | HMH.PMCON ---
Assessment and Plan (1) Degenerative joint disease of cervical spine Status: Chronic Category: Medical Code(s): M47.812 - Spondylosis without myelopathy or radiculopathy, cervical region (2) Mid back pain Status: Chronic Category: Medical Code(s): M54.9 - Dorsalgia, unspecified (3) Low back pain Status: Chronic Category: Medical Code(s): M54.50 - Low back pain, unspecified (4) Lumbar radiculopathy Status: Chronic Category: Medical Code(s): M54.16 - Radiculopathy, lumbar region - Assessment and plan all Dx Assessment and Plan for all problems:: Patient's x-ray was reviewed of cervical and lumbar spine. Lumbar spine is unremarkable. The patient's cervical spine does note the patient to have degenerative disc disease C5-C7. He also has foraminal narrowing noted. He and I did discuss starting physical therapy. He is in agreement. We will schedule him for physical therapy. He has been advised we are not able to offer him any oral medications today. He does report he will contact his primary care provider for oral medications. We will order an MRI of the patient cervical spine, as he has not had any further imaging outside of x-rays of cervical spine. He will start physical therapy and continue with home stretching. We will see him back after his MRI discuss further plan of care. Patient has been instructed to contact the clinic with any concerns before the next appointment. Dr. Bloom has reviewed this note and agrees with this plan of care. This note was dictated using voice recognition software and make contain errors or omissions. HPI - Data of Consult Patient: new to practice Consult date: 03/06/21 Requesting Physician: Marcela Guallpa APRN - Consult Narrative Reason for consult: Neck pain, mid back pain, low back pain History of present illness: Mr. Clifton is a 50 year old male who presents today for consultation for worsening neck, mid back, and low back pain. Patient says that he has had chronic pain for many years which is progressively worsened over the last 6 to 8 months. 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 He does not report to have had any trauma or surgery/fractures to his spine in the past. He says his pain is worse at the low back area with radiation into his coccyx and into the posterior aspect bilateral thighs. He also has severe pain in his neck with heaviness in his neck and radiation into bilateral shoulders. He reports he has tried taking anti-inflammatories in the past and has got minimal relief. Patient has an x-ray of his cervical and lumbar spine. He has not had any further imaging. He has not had physical therapy. He says [id number] anti-inflammatories have not worked. He does take oral medications in the past prescribed by Dr. Mart. Patient reports that he got [place] in the past from Dr. Mart which gave him significant relief. He rates his pain a 7 out of 10 today. He has tried ice and heat therapies with minimal relief. He denies any saddle anesthesia or changes in bowel or bladder habit. He denies any paresthesia. CC: Marcela Guallpa APRN [facility] History I have reviewed the patient's past medical history: Yes 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: Reports:: Anxiety, Asthma, Chronic Obstructive Pulmonary Disease (COPD), Depression, Gastroesophageal Reflux Disease(GERD), Hepatitis, Hyperlipidemia, Hypertension, Migraine, Seizures Denies:: Cancer, Diabetes Mellitus Type 1, Diabetes Mellitus Type 2, MRSA *Have you ever received a pneumonia vaccine?: No *Have you received a flu vaccine this season?: No Other 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: Reports: Arthritis, Liver Disease Laterality Cases: Right: Arthroscopy Knee, Bilateral: Arthroscopy Shoulder, Tonsillectomy, Other Other Surgeries: Yes: Sinus Surgery, Other (nose, oral) Amputation: No Fractures: Yes (nose, right ankle) - *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 Last grade of school completed: High school graduate Smoking Status: [place]
== END ==
PROVIDERS: Visit Provider Clinical Nurse Specialist Family Health
DX: M47.812 Spondylosis without myelopathy or radiculopathy, cervical region (principal); M54.16 Radiculopathy, lumbar region; M54.50 Low back pain, unspecified
CPT/HCPCS: 99202; G0463

== ENCOUNTER → 2021-03-13 16:31 | Outpatient (CLI) | payer MEDICARE, MEDICAID, SELFPAY ==
--- NOTE | 2021-03-13 16:37 | MR_ITS ---
PROCEDURE INFORMATION: Exam: MR Cervical Spine Without Contrast Exam date and time: 03/13/2021 4:37 PM Age: 50 years old Clinical indication: Neck pain TECHNIQUE: Imaging protocol: Multiplanar magnetic resonance images of the cervical spine without contrast. COMPARISON: CR XR MULTIPLE SPINE 6+V 06/07/2020 1:42 PM FINDINGS: Vertebrae: Unremarkable. Spinal cord: Normal signal. No cord compression. C2-C3: No significant disc disease. No significant spinal stenosis. C3-C4: No significant disc disease. No significant spinal stenosis. C4-C5: No significant disc disease. No significant spinal stenosis. C5-C6: There is degenerative disc disease including disc space narrowing and dessication. There is a moderate disc/osteophyte complex that flattens the ventral thecal sac. There is a small central disc protrusion. There is moderate bilateral uncovertebral joint arthropathy. There is mild spinal canal stenosis. C6-C7: There is disc space narrowing and desiccation. There are moderate degenerative end plate changes at this level. There is a moderate disc/osteophyte complex that flattens the ventral thecal sac. There is a small central disc protrusion. There is moderate bilateral uncovertebral joint arthropathy. There is moderate bilateral neural foraminal narrowing. There is mild spinal canal stenosis. C7-T1: No significant disc disease. No significant spinal stenosis. Soft tissues: Unremarkable. IMPRESSION: Multilevel degenerative changes causing varying degrees of spinal canal and neuroforaminal narrowing. Please see details above.
== END ==
PROVIDERS: PCP Family Medicine; Visit Provider Clinical Nurse Specialist Family Health
DX: M54.2 Cervicalgia (principal); M54.50 Low back pain, unspecified
CPT/HCPCS: 72141; 76376

== ENCOUNTER → 2021-03-20 11:02 | Outpatient (POV) | payer MEDICARE, MEDICAID, SELFPAY ==
[2021-03-20 11:13] VITALS: BP 145/80; PULSE 67; RESP 18; O2SAT 96; BMI 24.6
--- NOTE | 2021-03-20 11:23 | HMH.PAINSOAP ---
[facility] Pain Management SOAP Note Subjective:: Patient is a pleasant 50 year old male who is here today for a follow-up after an MRI. Patient is currently being seen for worsening neck, mid back, and low back pain. The last time we saw this patient, we ordered an MRI of his cervical spine which showed unremarkable results at the level of C2-C5 however he has degenerative disc changes in the C5-C6 and C6-7 levels. Patient is complaining of localized pain in this area but denies any numbness and tingling on bilateral arms. Patient denies any weakness on bilateral upper extremities. Patient states that he took his last [place] 5 mg / 325 mg last night that was prescribed by Dr. Mart. Patient says that this medication has helped his discomfort a lot and rates his pain as 2 out of 10 today. I have discussed with the patient that we typically do not prescribe opiates for our patients. Patient says that he has tried tramadol 50 mg which did not help him at all. His Krishna number is [phone] with an active morphine equivalent of 0. Review of Systems General: No recent weight changes, no fever, no sleep disturbances Respiratory: No cough, no shortness of air, no recurring pulmonary infections Cardiovascular/peripheral vascular: No chest pain, no palpitations, no edema, no shortness of breath Gastrointestinal: No new onset incontinence, normal bowel movements reported Genitourinary: No new onset incontinence Musculoskeletal: neck pain, midback pain, low back pain Psychiatric: [Normal mood/affect] Neurological: [Denies weakness in extremities], [denies balance issues] Objective:: Physical exam General: Alert and oriented x3, no acute distress, pleasant and cooperative Lungs: Respirations even and unlabored, symmetrical chest expansion Eyes: PERRL Musculoskeletal: Flexion and extension of cervical, lumbar [spine] somewhat guarded secondary to pain, [antalgic gait noted] Neurological: Speech clear, no gross sensory deficit Assessment:: Degenerative disc diseases of the cervical spine Plan:: Ordering Physician: Marcela Guallpa APRN Date of Service: 03/13/21 Procedure(s): MR cervical spine wo con Accession Number(s): [id number] cc: Gómez Ray MD; Erik Mart MD~ PROCEDURE INFORMATION: Exam: MR Cervical Spine Without Contrast Exam date and time: 03/13/2021 4:37 PM Age: 50 years old Clinical indication: Neck pain TECHNIQUE: Imaging protocol: Multiplanar magnetic resonance images of the cervical spine without contrast. COMPARISON: CR XR MULTIPLE SPINE 6+V 06/07/2020 1:42 PM FINDINGS: Vertebrae: Unremarkable. Spinal cord: Normal signal. No cord compression. C2-C3: No significant disc disease. No significant spinal stenosis. C3-C4: No significant disc disease. No significant spinal stenosis. C4-C5: No significant disc disease. No significant spinal stenosis. C5-C6: There is degenerative disc disease including disc space narrowing and dessication. There is a moderate disc/osteophyte complex that flattens the ventral thecal sac. There is a small central disc protrusion. There is moderate bilateral uncovertebral joint arthropathy. There is mild spinal canal stenosis. C6-C7: There is disc space narrowing and desiccation. There are moderate degenerative end plate changes at this level. There is a moderate disc/osteophyte complex that flattens the ventral thecal sac. There is a small central disc protrusion. There is moderate bilateral uncovertebral joint arthropathy. There is moderate bilateral neural foraminal narrowing. There is mild spinal canal stenosis. C7-T1: No significant disc disease. No significant spinal stenosis. Soft tissues: Unremarkable. IMPRESSION: Multilevel degenerative changes causing varying degrees of spinal canal and neuroforaminal narrowing. Please see details above. I talked to
== END ==
PROVIDERS: Visit Provider Clinical Nurse Specialist Family Health
DX: M50.30 Other cervical disc degeneration, unspecified cervical region (principal)
CPT/HCPCS: 99212; G0463

== ENCOUNTER 2021-03-30 13:57 | Day surgery (SDC) | payer MEDICARE, MEDICAID, SELFPAY ==
[2021-03-30 14:25] VITALS: BP 134/80; PULSE 70; RESP 18; TEMP 36.3; O2SAT 96; BMI 52.0
--- NOTE | 2021-03-30 14:34 | P.PCN_ITS ---
- Procedure Date: 03/30/21 Time: 14:34 Anesthesiologist:: Kathe Michel MD Complications:: None Pre-procedure Diagnosis:: degenerative disc disease of the cervical spine with cervical radiculopathy Post-procedure Diagnosis:: Same Indications for Procedure:: Patient is a very pleasant 50-year-old white male with chronic neck pain radiating to his arms related to the above diagnosis. He has tried and failed conservative treatment continue with pain medications and home stretching program for greater than 6 weeks. He previously has trialed [place] 5/325 mg that has been prescribed by Dr. Mart and he states that this medication has helped with his pain. The plan for today was to the patient to undergo a cervical epidural steroid injection under fluoroscopy at C7-T1 #1. Procedure Details:: Cervical epidural steroid injection under fluoroscopy Informed consent was obtained and the risks and benefits of the procedure was explained to the patient. The patient was taken to the procedure room placed prone on the procedure table. The neck was prepped using ChloraPrep. The skin and subcutaneous tissues were anesthetized using lidocaine. I placed a 18-gauge epidural needle into the C7-T1 interspace and advanced using [id number] to air and fluoroscopic guidance. After confirmation of needle placement in the epidural space with dye, I injected 3 mL's lidocaine 1.0% and Depo-Medrol 80 mg. The patient tolerated the procedure well with no complications. Plan and Disposition:: We will follow-up with this patient in 2 weeks. Will reevaluate pain symptoms at that time.
[2021-03-30 14:56] VITALS: BP 129/72; PULSE 54; RESP 18; O2SAT 96
[2021-03-30 14:57] VITALS: PULSE 52; RESP 18; O2SAT 96
[2021-03-30 15:10] VITALS: BP 140/83; PULSE 70; RESP 20; O2SAT 99
== END 2021-03-30 15:10 | disposition home or self-care (01) ==
LOC: SC.PAINP 13:58
PROVIDERS: PCP Family Medicine; Visit Provider Anesthesiology Pain Medicine
DX: M50.13 Cervical disc disorder with radiculopathy, cervicothoracic region (principal); G43.909 Migraine, unspecified, not intractable, without status migrainosus; E78.5 Hyperlipidemia, unspecified; I10 Essential (primary) hypertension; J44.9 Chronic obstructive pulmonary disease, unspecified; R56.9 Unspecified convulsions; K21.9 Gastro-esophageal reflux disease without esophagitis; M19.90 Unspecified osteoarthritis, unspecified site; F32.A Depression, unspecified; Z72.0 Tobacco use; F41.9 Anxiety disorder, unspecified; Z86.19 Personal history of other infectious and parasitic diseases; Z79.899 Other long term (current) drug therapy
CPT/HCPCS: 62321; J1040; Q9966

== ENCOUNTER → 2021-04-12 12:52 | Outpatient (POV) | payer MEDICARE, MEDICAID, SELFPAY ==
[2021-04-12 13:05] VITALS: BP 151/80; PULSE 97; RESP 18; O2SAT 96; BMI 24.3
--- NOTE | 2021-04-12 13:40 | HMH.PAINSOAP ---
[facility] Pain Management SOAP Note Subjective:: Patient is a 50-year-old white male who presents today for follow-up. The patient recently underwent a cervical epidural steroid injection for which he says he got very little relief following the injection. He does say since the injection he is now having mid to low back pain with radiation into bilateral lower extremities. He is complaining of numbness and tingling bilateral legs and feet as well as changes in bowel habit. He reports to be having bowel incontinence intermittently. This is new onset for the patient. He says that this coincides with worsening pain in the low back area. Patient has not had any recent imaging of his lumbar or thoracic spine. He says that the pain is progressively worsening limiting his ability to stand or walk for prolonged periods. Sitting does not relieve the pain. He has tried physical therapy for more than 6 weeks in the past along with home stretching. He does take oral medications per his primary care provider. Today, he does rate his pain a 6 out of 10. Review of Systems General: No recent weight changes, no fever, no sleep disturbances Respiratory: No cough, no shortness of air, no recurring pulmonary infections Cardiovascular/peripheral vascular: No chest pain, no palpitations, no edema, no shortness of breath Gastrointestinal: New onset changes in bowel habit?intermittent incontinence associated with pain low back Genitourinary: No new onset incontinence Musculoskeletal: Mid to low back pain with radiation into bilateral lower extremities Psychiatric: [Normal mood/affect] Neurological: [Denies weakness in extremities], [denies balance issues] Objective:: Physical exam General: Alert and oriented x3, no acute distress, pleasant and cooperative Lungs: Respirations even and unlabored, symmetrical chest expansion Eyes: PERRL Musculoskeletal: Flexion and extension of thoracic and lumbar [spine] somewhat guarded secondary to pain, [slightly antalgic gait noted Neurological: Speech clear, no gross sensory deficit Assessment:: Degenerative disc disease cervical spine with cervical radiculopathy symptoms, mid back pain, low back pain, lumbar radiculopathy symptoms Plan:: Patient has not had any recent imaging of mid and low back. He does report to be having changes in bowel habit with intermittent incontinence associated with low back pain. We will schedule him for a thoracic and lumbar MRI and plan to see him back afterwards for further evaluation. He is not interested in further injective therapy in the clinic. Patient has been instructed to contact the clinic with any concerns before the next appointment. Dr. Bloom has reviewed this note and agrees with this plan of care. This note was dictated using voice recognition software and make contain errors or omissions. [facility] History I have reviewed the patient's past medical history: Yes 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: Reports:: Anxiety, Asthma, Chronic Obstructive Pulmonary Disease (COPD), Depression, Gastroesophageal Reflux Disease(GERD), Hepatitis, Hyperlipidemia, Hypertension, Migraine, Seizures Denies:: Cancer, Diabetes Mellitus Type 1, Diabetes Mellitus Type 2, MRSA *Have you ever received a pneumonia vaccine?: No *Have you received a flu vaccine this season?: Yes Other 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: Reports: Arthritis, Liver Disease Laterality Cases: Right: Arthroscopy Knee, Bilateral: Arthroscopy Shoulder, Tonsillectomy, Other Other Surgeries: Yes: Sinus Surgery, Other Amputation: No Fractures: Yes (nose, right ankle) - *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 Smoking Status: Current every day smoker Tobacco Type: cigarettes # Packs/Day (cigarettes): 1 Alcohol Intake: current Alcohol Intake Frequency:: a few times a month Substance Use Type: marijuana *Occupational Status:: unemployed Housing: house Household Members: none *Travel in the last 8 weeks: None - Psychiatric History Pschychiatric History:: Reports:: Anxiety, De
--- NOTE | 2021-04-16 09:31 | PC.NURSE ---
patient contacted for insurance plan, as insurance plan has termed. patient unable to proved information. patient notified appointment will be canceled until information is provided.
== END ==
PROVIDERS: Visit Provider Clinical Nurse Specialist Family Health
DX: M50.10 Cervical disc disorder with radiculopathy, unspecified cervical region (principal); M54.6 Pain in thoracic spine; M54.50 Low back pain, unspecified; M54.16 Radiculopathy, lumbar region
CPT/HCPCS: 99212; G0463

== ENCOUNTER 2021-04-15 20:14 | Emergency (ER) | payer MEDICARE, MEDICAID, SELFPAY ==
[2021-04-15 19:59] VITALS: BP 133/81; PULSE 71; RESP 16; TEMP 36.5; O2SAT 100; BMI 24.3
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
[2021-04-15 20:30] VITALS: BP 130/85; PULSE 63; O2SAT 98
[2021-04-15 20:53] LABS: Basophils # 0.2 K/mm3 (0-0.2); Basophils % 2.2 % (0.1-2.0); Eosinophils # 0.4 K/mm3 (0.0-0.4); Eosinophils % 4.6 % (0.1-12.0); Hematocrit 48.6 % (42.0-52.0); Hemoglobin 15.8 g/dL (14.1-18.0); Lymphocytes # 2.6 K/mm3 (0.7-4.5); Mean Corpuscular HGB Conc 32.6 g/dL (31.8-35.4); Mean Corpuscular Hemoglobin 33.7 pg (27.0-31.2); Mean Corpuscular Volume 103.3 fl (80-94); Mean Platelet Volume 7.8 fl (7.4-10.4); Monocytes # 0.5 K/mm3 (0.1-1.0); Monocytes % 6.3 % (1.7-9.3); Neutrophils # 4.6 K/mm3 (1.8-7.8); Neutrophils % 55.9 % (37.0-80.0); Platelet Count 225 K/mm3 (142-424); Red Blood Count 4.71 M/mm3 (4.60-6.20); Red Cell Distribution Width 13.5 % (11.5-17.5); White Blood Count 8.2 K/mm3 (4.8-10.8)
[2021-04-15 21:00] VITALS: BP 136/80; PULSE 61; O2SAT 97
[2021-04-15 21:05] LABS: Chloride 105 mmol/L (98-107); Sodium 138 mmol/L (136-145)
[2021-04-15 21:06] LABS: Potassium 4.2 mmoL/L (3.5-5.1)
[2021-04-15 21:08] LABS: Alanine Aminotransferase 15 U/L (12-78); Albumin Level 4.2 g/dl (3.5-5.0); Albumin/Globulin Ratio 1.6 (1.1-1.8); Alkaline Phosphatase 86 U/L (38-126); Anion Gap 11.2 mEq/L (5-15); Aspartate Amino Transferase 31 U/L (17-59); Bilirubin,Total 0.3 mg/dl (0.2-1.3); Blood Urea Nitrogen 7 mg/dl (9-20); Carbon Dioxide 26 mmol/L (22.0-30.0); Creatinine Clearance Estimated 103 mL/min (50-200); Estimated Glomerular Filt Rate 90 ml/min (>60); GFR (African American) 109 ML/MIN (>60); Globulin 2.7 g/dL (1.3-3.2); Total Protein,Serum 6.9 g/dl (6.3-8.2)
[2021-04-15 21:09] LABS: Calcium 8.6 mg/dl (8.4-10.2); Glucose 97 mg/dl (74-100); Lactic Acid 0.9 mmol/L (0.7-2.1)
--- NOTE | 2021-04-15 22:01 | HMH.EDGENADL ---
ED Disposition Clinical Impression: Seizure-like activity, Chronic groin pain, Abdominal pain Disposition: Home, Self-Care Condition on Discharge: Good Instructions: DI for Seizure Disorder -- Adult, DI for Seizure (Not Epilepsy/Seizure Disorder), DI for Seizure Disorder -- Child Prescriptions: Dicyclomine HCl [Bentyl 10mg capsule] 10 mg PO BID PRN 5 Days #10 cap PRN Reason: abdominal spasms Transmission Status: Pending to [facility] Melatonin 3 mg PO DIRECTED 5 Days #5 tab Transmission Status: P[facility] to [facility] Referrals: Erik Mart MD [Primary Care Provider] - - Critical Care Critical Care Time: No Attestation: On 04/15/21, the high probability of a clinically significant, sudden or life threatening deterioration of the following system(s) required my full and direct attention, intervention and personal management. The time I documented below is in addition to time spent performing reported procedures but includes the following listed in this critical care notation. Medical Decision Making - Krishna Inquiry Pt receiving controlled substance: No Vital Signs: 04/15/21 19:59 Temperature 97.7 F Temperature Source Oral Pulse Rate [Right Brachial] 71 Respiratory Rate 16 Blood Pressure [Right Arm] 133/81 Blood Pressure Mean [Right Arm] 98 Blood Pressure Source [Right Arm] Automatic Cuff Blood Pressure Position [Right Arm] Sitting 02 Sat by Pulse Oximetry 100 Oxygen Delivery Method Room Air - Lab Data Lab Results 04/15/21 20:30: Phenytoin 10.0 04/15/21 20:41: WBC 8.2, RBC 4.71, Hgb 15.8, Hct 48.6, MCV 103.3 H, MCH 33.7 H, MCHC 32.6, RDW 13.5, Plt Count 225, MPV 7.8, Neut % (Auto) 55.9, Lymph % (Auto) 31.0, [place] % (Auto) 6.3, Eos % (Auto) 4.6, Baso % (Auto) 2.2 H, Neut # (Auto) 4.6, Lymph # (Auto) 2.6, [place] # (Auto) 0.5, Eos # (Auto) 0.4, Baso # (Auto) 0.2 04/15/21 20:41: Sodium 138, Potassium 4.2, Chloride 105, Carbon Dioxide 26, Anion Gap 11.2, BUN 7 L, Creatinine 0.90, Estimated Creat Clear 103, Estimated GFR 90, Est GFR ( Amer) 109, Glucose 97, Calcium 8.6, Total Bilirubin 0.3, AST 31, ALT 15, Alkaline Phosphatase 86, Total Protein 6.9, Albumin 4.2, Globulin 2.7, Albumin/Globulin Ratio 1.6 04/15/21 20:41: Lactate 0.9 Result diagrams: 04/15/21 20:41 04/15/21 20:41 Orders (Tests/Meds): ED MEDICATIONS Discontinued Medications Generic Name Dose Route Start Last Admin Trade Name Freq PRN Reason Stop Dose Admin Levetiracetam 1,500 mg/ Sodium 115 mls @ 230 mls/hr 04/15/21 21:17 04/15/21 21:32 Chloride IV 04/15/21 21:18 Not Given ONCE ONE ORDERS Category Date Time Status EKG Request [ECG Request by /Bibi] Stat Y 04/15/21 22:11 Ordered Medical Decision Narrative: Differential diagnosis includes but is not limited to medication noncompliance, breakthrough seizure, ICH, intracranial mass. Abd exam with generalized non peritonitic ttp without significant guarding or rebound. exam without significant evidence of infection, mass, torsion (b/l cremasteric reflex present makes it low likelihood). It is chronic pain. He is at mental status baseline with normal conversation, nonfocal exam, GCS 15. He needs to follow up with his physician who manages his seizure meds for possible dose increase or trial of other AED but these episodes today may be due to sleep deprivation provoked seizure as well. He agrees to plan to follow up with his physician regarding his chronic abd/gu pain and seizure med management. Labs here in ED not acutely actionable. ekg sinus bradycardia rate 51 without acute ischemic symptoms and patient without chest pain and stable bp, gcs 15 awake alert conversational. CTH and CT c spine without acute actionable findings. He remains HDS, well appearing. Will rx melatonin to assist with sleep and bentyl for abd spasms. Given ED return precautions. General Adult HPI - General Chief complaint: Seizure Stated complaint: acute on chronic
--- NOTE | 2021-04-15 22:15 | ECG_ITS ---
APPROVED REPORT Exam: Resting ECG HR:51 bpm ECG Measurements Heart Rate 51 AXES HI 166 P 73 QRSd 102 QRS 72 QT 402 T 64 QTc 370 Conclusion Sinus bradycardia Otherwise normal ECG Electronically signed by : Augustine Garcias MD 04/16/2021 21:38:48
[2021-04-15 23:41] VITALS: BP 127/95; PULSE 69; RESP 18; TEMP 36.7; O2SAT 97
== END 2021-04-15 23:46 | disposition home or self-care (01) ==
PROVIDERS: Emergency Provider Student in an Organized Health Care Education/Training Program; PCP Family Medicine
DX: R56.9 Unspecified convulsions (principal); J44.9 Chronic obstructive pulmonary disease, unspecified; B19.20 Unspecified viral hepatitis C without hepatic coma; F41.8 Other specified anxiety disorders; E78.5 Hyperlipidemia, unspecified; I10 Essential (primary) hypertension; F20.9 Schizophrenia, unspecified; F17.210 Nicotine dependence, cigarettes, uncomplicated
CPT/HCPCS: 36415; 70450; 72125; 80053; 80185; 83605; 85025; 93005; 99283

== ENCOUNTER → 2021-04-19 13:46 | Outpatient (CLI) | payer MEDICARE, MEDICAID, SELFPAY ==
--- NOTE | 2021-04-19 13:48 | MR_ITS ---
FINAL REPORT CLINICAL HISTORY: WORSENING PAIN WITH CHANGES IN BOWEL ICONTINENCE FINDINGS: Multiplanar imaging of the thoracic spine was obtained, without administration of intravenous contrast. On the sagittal images, mild decrease signal is identified throughout the thoracic discs. Vertebrae are of normal height. No malalignment is seen. Thoracic cord demonstrates normal signal and configuration. On the axial images, there is no evidence of significant disc bulge or protrusion. IMPRESSION: 1. No evidence of significant spinal or neural foraminal compromise. 2. No evidence of acute osseous abnormality. Authenticated by Vlad Duran MD on 04/19/2021 03:10:27 PM [facility]
--- NOTE | 2021-04-19 14:05 | MR_ITS ---
FINAL REPORT CLINICAL HISTORY: WORSENING BACK PAIN WITH BOWEL INCONTINENCE FINDINGS: On the sagittal images, abnormal decrease signal is identified within the L3-4 and L4-5 discs. Vertebrae are of normal height. No malalignment is seen. L1?to: No disc bulge or protrusion. L2-3: No disc bulge or protrusion. L3-4: Mild diffuse disc bulge is present. There is mild right and moderate left neural foraminal narrowing. L4-5: Mild diffuse disc bulge is present. There is a mild right posterolateral disc protrusion with annular tear. There is moderate right and mild left neural foraminal narrowing. L5-S1: No disc bulge or protrusion. IMPRESSION: 1. Degenerative disc signal changes most evident at L3-4 and L4-5 with neural foraminal compromise most evident on the left at L3-4 and on the right at L4-5. Please correlate with any specific radicular symptoms. Authenticated by Vlad Duran MD on 04/19/2021 03:27:31 PM [facility]
== END ==
PROVIDERS: PCP Family Medicine; Visit Provider Clinical Nurse Specialist Family Health
DX: M54.6 Pain in thoracic spine (principal); M54.50 Low back pain, unspecified
CPT/HCPCS: 72146; 72148; 76376

== ENCOUNTER → 2021-05-07 14:34 | Outpatient (POV) | payer MEDICARE, MEDICAID, SELFPAY ==
[2021-05-07 14:46] VITALS: BP 133/90; PULSE 77; RESP 18; O2SAT 97; BMI 24.3
--- NOTE | 2021-05-07 15:07 | HMH.PAINSOAP ---
[facility] Pain Management SOAP Note Subjective:: Patient is a pleasant 51-year-old male who comes in here today for follow-up. Patient is currently being treated for degenerative disease of the cervical spine with cervical radiculopathy symptoms, mid back pain, degenerative disease of the lumbar spine with lumbar radiculopathy symptoms. Patient says that he has been having this pain for several years now but has noticed it getting worse in the last few months. Patient had a cervical epidural steroid injection last month that provided temporary relief. Last time we saw this patient, patient was having intermittent incontinence. We scheduled the patient for an MRI which showed multilevel degenerative disc change in the lumbar spine, unremarkable in the thoracic spine. Today, patient is still having significant pain throughout his back but worse on his low back. Patient says his incontinence has resolved. Patient denies any recent traumas or falls. He rates his pain today as 7 out of 10. His Krishna number is [phone] with an active morphine equivalent of 0. ORT score is low risk. Review of Systems General: No recent weight changes, no fever, no sleep disturbances Respiratory: No cough, no shortness of air, no recurring pulmonary infections Cardiovascular/peripheral vascular: No chest pain, no palpitations, no edema, no shortness of breath Gastrointestinal: No new onset incontinence, normal bowel movements reported Genitourinary: No new onset incontinence Musculoskeletal: Neck pain, thoracic back pain, low back pain Psychiatric: [Normal mood/affect] Neurological: [Denies weakness in extremities], [denies balance issues] Objective:: Physical exam General: Alert and oriented x3, no acute distress, pleasant and cooperative Lungs: Respirations even and unlabored, symmetrical chest expansion Eyes: PERRL Musculoskeletal: Flexion and extension of cervical and lumbar [spine] somewhat guarded secondary to pain Neurological: Speech clear, no gross sensory deficit Assessment:: Degenerative disease of the cervical lumbar spine with cervical and lumbar radiculopathy symptoms. Plan:: Imaging Ordering Physician: Marcela Guallpa APRN Date of Service: 04/19/21 Procedure(s): MR thoracic spine wo con Accession Number(s): [id number] cc: Vlad Duran MD; Erik Mart MD~ FINAL REPORT CLINICAL HISTORY: WORSENING PAIN WITH CHANGES IN BOWEL ICONTINENCE FINDINGS: Multiplanar imaging of the thoracic spine was obtained, without administration of intravenous contrast. On the sagittal images, mild decrease signal is identified throughout the thoracic discs. Vertebrae are of normal height. No malalignment is seen. Thoracic cord demonstrates normal signal and configuration. On the axial images, there is no evidence of significant disc bulge or protrusion. IMPRESSION: 1. No evidence of significant spinal or neural foraminal compromise. 2. No evidence of acute osseous abnormality. Authenticated by Vlad Duran MD on 04/19/2021 03:10:27 PM [facility] Ordering Physician: Marcela Guallpa APRN Date of Service: 04/19/21 Procedure(s): MR lumbar spine wo con Accession Number(s): [id number] cc: Vlad Duran MD; Erik Mart MD~ FINAL REPORT CLINICAL HISTORY: WORSENING BACK PAIN WITH BOWEL INCONTINENCE FINDINGS: On the sagittal images, abnormal decrease signal is identified within the L3-4 and L4-5 discs. Vertebrae are of normal height. No malalignment is seen. L1?to: No disc bulge or protrusion. L2-3: No disc bulge or protrusion. L3-4: Mild diffuse disc bulge is present. There is mild right and moderate left neural foraminal narrowing. L4-5: Mild diffuse disc bulge is present. There is a mild right posterolateral disc protrusion with annular tear. There is moderate right and mild left neural foraminal narrowing. L5-S1: No disc bulge or protrusion. IMPRESSION: 1. Degenerative disc signal changes
== END ==
PROVIDERS: Visit Provider Clinical Nurse Specialist Family Health
DX: M50.10 Cervical disc disorder with radiculopathy, unspecified cervical region (principal); M54.16 Radiculopathy, lumbar region
CPT/HCPCS: 99212; G0463

== ENCOUNTER 2021-06-01 11:11 | Day surgery (SDC) | payer MEDICARE, MEDICAID, SELFPAY ==
[2021-06-01 11:17] VITALS: BP 132/75; PULSE 61; RESP 20; O2SAT 97
[2021-06-01 11:25] VITALS: BP 123/74; PULSE 78; RESP 20; TEMP 36.6; O2SAT 97; BMI 24.3
[2021-06-01 11:30] VITALS: BP 130/70; PULSE 65; RESP 18; O2SAT 97
--- NOTE | 2021-06-01 11:37 | HMH.PMPROC ---
- Procedure Date: 06/01/21 Time: 11:37 Anesthesiologist:: David Bloom MD Complications:: None Pre-procedure Diagnosis:: Degenerative disc disease of lumbar spine with lumbar radiculopathy symptoms Post-procedure Diagnosis:: Same Indications for Procedure:: This patient is a pleasant 51-year-old white male who we are treating for low back pain with lumbar radiculopathy symptoms. He previously had a cervical epidural steroid injection which helped somewhat however he still has some increasing pain now especially in his low back and left buttock. Will do lumbar epidural steroid injection today to see if this helps with his pain symptoms. Procedure Details:: Informed consent was obtained and the risk and benefits of the procedure was explained to the patient. The patient was taken to the procedure room. The patient was placed prone on the procedure table. The patient was prepped and draped in sterile fashion. C-arm fluoroscopy was used to view the lumbar spine. Skin and subcutaneous tissues were anesthetized using lidocaine. I placed an 18-gauge epidural needle and advanced into the L4-L5 interspace using fluoroscopic guidance and [id number] to air. After confirmation of needle placement in the epidural space with dye I injected 2 mL of lidocaine 1.5% with Depo-Medrol 80 mg. Patient tolerated the procedure well with no complications. Plan and Disposition:: We will follow-up with him in 2 weeks. Will reevaluate symptoms at that time.
[2021-06-01 11:38] VITALS: BP 136/82; PULSE 79; RESP 20; O2SAT 96
== END 2021-06-01 11:40 | disposition home or self-care (01) ==
LOC: SC.PAINP 11:14
PROVIDERS: PCP Family Medicine; Visit Provider Anesthesiology
DX: M51.16 Intervertebral disc disorders with radiculopathy, lumbar region (principal); G43.909 Migraine, unspecified, not intractable, without status migrainosus; E78.5 Hyperlipidemia, unspecified; I10 Essential (primary) hypertension; J44.9 Chronic obstructive pulmonary disease, unspecified; J45.909 Unspecified asthma, uncomplicated; K21.9 Gastro-esophageal reflux disease without esophagitis; Z88.8 Allergy status to other drugs, medicaments and biological substances
CPT/HCPCS: 62323; J1040; Q9966

== ENCOUNTER 2021-06-18 12:26 | Emergency (ER) | payer MEDICARE, MEDICAID, SELFPAY ==
--- NOTE | 2021-06-18 12:21 | ECG_ITS ---
APPROVED REPORT Exam: Resting ECG HR:75 bpm ECG Measurements Heart Rate 75 AXES OH 160 P 70 QRSd 96 QRS 75 QT 337 T 65 QTc 367 Conclusion SINUS RHYTHM INDETERMINATE AXIS INCOMPLETE RIGHT BUNDLE BRANCH BLOCK Old anteroseptal changes ABNORMAL ECG UNCONFIRMED REPORT Electronically signed by : Augustine Garcias MD 06/18/2021 19:47:12
[2021-06-18 12:27] VITALS: BP 162/93; PULSE 72; RESP 20; TEMP 36.9; O2SAT 98; BMI 25.5
[2021-06-18 12:31] VITALS: BP 138/88; PULSE 75; RESP 18; O2SAT 96
--- NOTE | 2021-06-18 12:32 | XR_ITS ---
FINAL REPORT CLINICAL HISTORY: chest pain COMPARISON: February 03, 2021 FINDINGS: A single portable view of the chest was obtained. The heart size and pulmonary vascularity are within normal limits. The mediastinum is within normal limits. No acute pulmonary abnormality is identified. There is a chronic right 5th posterior rib fracture. IMPRESSION: No active cardiopulmonary disease. Reviewed, Interpreted and Dictated by Evgeny Rosales III, MD Transcribed by Fady Mckeon Authenticated by Evgeny Rosales III, MD on 06/18/2021 01:11:20 PM [facility]
--- NOTE | 2021-06-18 12:39 | PC.NURSE ---
XRAY HERE FOR PORT CHEST
[2021-06-18 12:55] LABS: Basophils # 0.1 K/mm3 (0-0.2); Basophils % 1.8 % (0.1-2.0); Eosinophils # 0.4 K/mm3 (0.0-0.4); Eosinophils % 5.4 % (0.1-12.0); Hematocrit 52.3 % (42.0-52.0); Hemoglobin 16.8 g/dL (14.1-18.0); Lymphocytes # 2.2 K/mm3 (0.7-4.5); Lymphocytes % 32.1 % (10-50); Mean Corpuscular HGB Conc 32.2 g/dL (31.8-35.4); Mean Corpuscular Hemoglobin 33.2 pg (27.0-31.2); Mean Corpuscular Volume 103.1 fl (80-94); Mean Platelet Volume 8.1 fl (7.4-10.4); Monocytes # 0.5 K/mm3 (0.1-1.0); Monocytes % 7.5 % (1.7-9.3); Neutrophils # 3.7 K/mm3 (1.8-7.8); Neutrophils % 53.2 % (37.0-80.0); Platelet Count 224 K/mm3 (142-424); Red Blood Count 5.07 M/mm3 (4.60-6.20); Red Cell Distribution Width 13.9 % (11.5-17.5); White Blood Count 6.9 K/mm3 (4.8-10.8)
[2021-06-18 13:01] LABS: Anion Gap 13.4 mEq/L (5-15); Blood Urea Nitrogen 18 mg/dl (9-20); Calcium 8.8 mg/dl (8.4-10.2); Carbon Dioxide 23 mmol/L (22.0-30.0); Chloride 106 mmol/L (98-107); Creatinine Clearance Estimated 107 mL/min (50-200); Estimated Glomerular Filt Rate 90 ml/min (>60); GFR (African American) 109 ML/MIN (>60); Glucose 110 mg/dl (74-100); Potassium 4.4 mmoL/L (3.5-5.1); Sodium 138 mmol/L (136-145)
[2021-06-18 13:18] LABS: Troponin I < 0.01 ng/ml (0.00-0.034)
--- NOTE | 2021-06-18 13:34 | HMH.EDCP ---
ED Disposition Clinical Impression: Chest pain Disposition: Home, Self-Care Condition on Discharge: Good Instructions: DI for Atypical Chest Pain Additional Instructions: Please follow up with your primary care physician, keep your appointment on . Please also keep the referral to cardiology. Please return if your chest pain returns, difficulty breathing, heart palpitations or any other concerning symptoms. Referrals: Erik Mart MD [Primary Care Provider] - - Critical Care Critical Care Time: No Attestation: On 06/18/21, the high probability of a clinically significant, sudden or life threatening deterioration of the following system(s) required my full and direct attention, intervention and personal management. The time I documented below is in addition to time spent performing reported procedures but includes the following listed in this critical care notation. Medical Decision Making - Medical Records Medical records reviewed: Yes: I reviewed the patient's medical records. - Krishna Inquiry Pt receiving controlled substance: No Vital Signs: 06/18/21 12:27 06/18/21 12:31 06/18/21 14:15 Temperature 98.4 F 98 F Temperature Source Oral Oral Pulse Rate 75 88 Pulse Rate [Radial] 72 Respiratory Rate 20 18 16 Blood Pressure 138/88 129/78 Blood Pressure [Right Arm] 162/93 H Blood Pressure Mean 96 Blood Pressure Mean [Right Arm] 116 Blood Pressure Position Sitting Blood Pressure Position [Right Arm] Sitting 02 Sat by Pulse Oximetry 98 96 Oxygen Delivery Method Room Air Room Air - Lab Data Lab results reviewed: Yes: I reviewed the patient's lab results. Lab Results 06/18/21 12:30: WBC 6.9, RBC 5.07, Hgb 16.8, Hct 52.3 H, MCV 103.1 H, MCH 33.2 H, MCHC 32.2, RDW 13.9, Plt Count 224, MPV 8.1, Neut % (Auto) 53.2, Lymph % (Auto) 32.1, [place] % (Auto) 7.5, Eos % (Auto) 5.4, Baso % (Auto) 1.8, Neut # (Auto) 3.7, Lymph # (Auto) 2.2, [place] # (Auto) 0.5, Eos # (Auto) 0.4, Baso # (Auto) 0.1 06/18/21 12:30: Sodium 138, Potassium 4.4, Chloride 106, Carbon Dioxide 23, Anion Gap 13.4, BUN 18, Creatinine 0.90, Estimated Creat Clear 107, Estimated GFR 90, Est GFR ( Amer) 109, Glucose 110 H, Calcium 8.8, Troponin I < 0.01, Phenobarbital < 5.0 L Result diagrams: 06/18/21 12:30 06/18/21 12:30 Orders (Tests/Meds): ED MEDICATIONS Discontinued Medications Generic Name Dose Route Start Last Admin Trade Name Micheline PRN Reason Stop Dose Admin Aspirin 324 mg 06/18/21 12:36 06/18/21 12:38 Aspirin 81mg Chewable Tablet PO 06/18/21 12:37 324 mg ONCE ONE Administration Sodium Chloride 10 ml 06/18/21 12:36 Sodium Chloride 0.9% 10ml Flush Syringe IV 07/18/21 12:35 NEEDED PRN Maintain IV Site Medical Decision Narrative: Mr. Clifton is a 51 yo male presenting with chest pain in the setting of cough. Patinet is afebrile and hemodynamically stable on arrival, non toxic appearing. Physcial exam patient is breathing comfortably with no wheezing, rhales or rhonchi. No murmur, rubs or gallops. Otherwise benign exam. Differentials to consider but not limited to include: ND/CAD, pneumonia, viral mediated illness/bronchitis. Low suspicion for PE, perc negative. Basic labs, Trop are non actionable. Bedside ECG shows no acute ischemic changes. Patient is discharged in stable condition and informed to fu w/ pcp in 2-3 days for further management. Patient also has appointment with his staff respiratory therapist this week, instructed to keep that appointment. Patient is discharged in stable condition and informed to return to the ED for any concerning symptoms or reoccurence of chest pain. Chest Pain HPI - General Chief Complaint: Chest Pain Stated Complaint: chest pain Time Seen by Provider: 06/18/21 12:30 Mode of Arrival: Ambulatory Source of Information: Patient Limitations: No Limitations Description of Symptoms (Recalled from ER Triage Doc. by RN): to ed per pvt car with c/o rt side
[2021-06-18 14:15] VITALS: BP 129/78; PULSE 88; RESP 16; TEMP 36.6; O2SAT 98
== END 2021-06-18 14:16 | disposition home or self-care (01) ==
PROVIDERS: Emergency Provider Student in an Organized Health Care Education/Training Program; PCP Family Medicine
DX: R07.89 Other chest pain (principal); I10 Essential (primary) hypertension; E78.5 Hyperlipidemia, unspecified; K21.9 Gastro-esophageal reflux disease without esophagitis; G43.909 Migraine, unspecified, not intractable, without status migrainosus; K75.9 Inflammatory liver disease, unspecified; J44.9 Chronic obstructive pulmonary disease, unspecified; F32.A Depression, unspecified; F41.9 Anxiety disorder, unspecified; F17.210 Nicotine dependence, cigarettes, uncomplicated; Z79.51 Long term (current) use of inhaled steroids; Z79.899 Other long term (current) drug therapy; Z88.8 Allergy status to other drugs, medicaments and biological substances
CPT/HCPCS: 71045; 80048; 80184; 84484; 85025; 93005; 99284

== ENCOUNTER 2021-06-24 11:20 | Emergency (ER) | payer MEDICARE, MEDICAID, SELFPAY ==
[2021-06-24 11:29] VITALS: BP 141/99; PULSE 76; RESP 18; TEMP 36.7; O2SAT 97; BMI 24.3
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
[2021-06-24 11:50] VITALS: BP 136/81; PULSE 59; O2SAT 97
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
--- NOTE | 2021-06-24 11:58 | PC.NURSE ---
pt to radiology.
--- NOTE | 2021-06-24 12:03 | PC.NURSE ---
pt returned from radiology. hooked back up to vital signs.
[2021-06-24 12:09] VITALS: BP 129/86; PULSE 54; O2SAT 99
[2021-06-24 13:04] VITALS: BP 121/75; PULSE 47; RESP 18; TEMP 36.7; O2SAT 98
== END 2021-06-24 13:06 | disposition home or self-care (01) ==
PROVIDERS: Emergency Provider Student in an Organized Health Care Education/Training Program; PCP Family Medicine
DX: S20.211A Contusion of right front wall of thorax, initial encounter (principal); Y04.2XXA Assault by strike against or bumped into by another person, initial encounter; Y92.89 Other specified places as the place of occurrence of the external cause; K21.9 Gastro-esophageal reflux disease without esophagitis; E78.5 Hyperlipidemia, unspecified; I10 Essential (primary) hypertension; F41.8 Other specified anxiety disorders; J44.9 Chronic obstructive pulmonary disease, unspecified; Z79.899 Other long term (current) drug therapy; F17.210 Nicotine dependence, cigarettes, uncomplicated
CPT/HCPCS: 71101; 96372; 99283

== ENCOUNTER → 2021-06-25 16:29 | Outpatient (CLI) | payer MEDICARE, MEDICAID, SELFPAY ==
[2021-06-25 18:31] LABS: Phenytoin (Dilantin) 7.6 ug/ml (10-20)
[2021-06-25 19:18] LABS: Barbiturates Screen,Urine Negative ng/ml (<200)
[2021-06-25 19:19] LABS: Benzodiazepines Screen,Urine Negative ng/ml (<200)
[2021-06-25 19:20] LABS: Cocaine Screen,Urine Negative ng/ml (<300)
[2021-06-25 19:22] LABS: Opiate Screen,Urine Negative ng/ml (<300); Phencyclidine Screen,Urine Negative ng/ml (<25)
[2021-06-25 20:37] LABS: Amphetamine/Metha Screen,Urine Negative ng/ml (<1000)
[2021-06-25 20:38] LABS: Cannabinoid Screen,Urine Negative ng/ml (<50); Methadone Screen,Urine Negative ng/ml (<300)
== END ==
PROVIDERS: Visit Provider Family Medicine
DX: M47.812 Spondylosis without myelopathy or radiculopathy, cervical region (principal); R41.3 Other amnesia
CPT/HCPCS: 80185; 80305

== ENCOUNTER 2021-07-11 13:49 | Outpatient (RCR) | payer MEDICARE, MEDICAID, SELFPAY | END 2021-07-11 13:55 | disposition home or self-care (01) | LOC: PT 13:49 | PROVIDERS: PCP Family Medicine | DX: M47.812 Spondylosis without myelopathy or radiculopathy, cervical region (principal); M47.817 Spondylosis without myelopathy or radiculopathy, lumbosacral region | CPT/HCPCS: 97010; 97014; 97035; 97110; 97163; G0283 ==

== ENCOUNTER → 2021-07-25 13:32 | Outpatient (CLI) | payer MEDICARE, MEDICAID, SELFPAY ==
[2021-07-25 14:38] LABS: Phenytoin (Dilantin) 4.7 ug/ml (10-20)
== END ==
PROVIDERS: Visit Provider Family Medicine
DX: G40.909 Epilepsy, unspecified, not intractable, without status epilepticus (principal)
CPT/HCPCS: 36415; 80185

== ENCOUNTER 2021-07-29 13:14 | Emergency (ER) | payer MEDICARE, MEDICAID, SELFPAY ==
--- NOTE | 2021-07-29 13:33 | XR_ITS ---
PROCEDURE INFORMATION: Exam: XR Chest Exam date and time: 07/29/2021 1:50 PM Age: 51 years old Clinical indication: Smoker's cough; Patient HX: Heavy smoker, cough, HX of copd per patient. ; Additional info: Chest pain, cough x 3 days TECHNIQUE: Imaging protocol: XR of the chest. Views: 1 view. COMPARISON: CR XR RIBS RT MIN 3V W CXR1V 06/24/2021 11:50 AM FINDINGS: Airway: Airways are patent. Lungs: Lungs are clear. Pleural spaces: Pleural spaces are clear. Heart/Mediastinum: Normal cardiomediastinal silhouette. Bones/joints: No acute skeletal abnormality or aggressive osseous lesion. Old/healed fracture to the lateral segment of the right 5th rib. IMPRESSION: 1. No acute thoracic pathology. 2. No definitive evidence for COPD or significant emphysematous changes in this examination.
--- NOTE | 2021-07-29 13:35 | HMH.EDGENADL ---
ED Disposition Clinical Impression: Chest pain, Pneumonia, Acute exacerbation of chronic obstructive airways disease Disposition: Home, Self-Care Condition on Discharge: Fair Prescriptions: Amoxicillin/Potassium Clav [Augmentin 500mg tab] 1 tab PO TID 5 Days #15 tab Transmission Status: [facility] to [facility] Azithromycin [Z-Cezar 250mg Tab] 250 mg PO DIRECTED #6 tab Transmission Status: Pending to [facility] Referrals: Erik Mart MD [Primary Care Provider] - - Critical Care Critical Care Time: No Attestation: On 07/29/21, the high probability of a clinically significant, sudden or life threatening deterioration of the following system(s) required my full and direct attention, intervention and personal management. The time I documented below is in addition to time spent performing reported procedures but includes the following listed in this critical care notation. Medical Decision Making - Krishna Inquiry Pt receiving controlled substance: No Vital Signs: 07/29/21 13:53 07/29/21 14:00 07/29/21 14:30 Temperature 98.3 F Temperature Source Oral Pulse Rate 74 84 Pulse Rate [Left Radial] 93 H Respiratory Rate 17 24 24 Blood Pressure 121/80 121/79 Blood Pressure [Right Arm] 136/88 Blood Pressure Mean 93 98 Blood Pressure Mean [Right Arm] 104 02 Sat by Pulse Oximetry 97 89 L 84 L Oxygen Delivery Method Room Air Room Air - Lab Data Lab Results 07/29/21 13:19: WBC 12.1 H, RBC 5.08, Hgb 17.1, Hct 51.2, MCV 100.7 H, MCH 33.6 H, MCHC 33.4, RDW 13.6, Plt Count 202, MPV 8.4, Neut % (Auto) 73.6, Lymph % (Auto) 17.0, [place] % (Auto) 6.8, Eos % (Auto) 1.4, Baso % (Auto) 1.2, Neut # (Auto) 8.9 H, Lymph # (Auto) 2.1, [place] # (Auto) 0.8, Eos # (Auto) 0.2, Baso # (Auto) 0.2 07/29/21 13:19: D-Dimer 0.53 H 07/29/21 13:19: Sodium 140, Potassium 3.7, Chloride 110 H, Carbon Dioxide 22, Anion Gap 11.7, BUN 10, Creatinine 1.10, Estimated Creat Clear 79, Estimated GFR 71, Est GFR ( Amer) 86, Glucose 120 H, Calcium 8.6, Total Bilirubin 1.0, AST 25, ALT 21, Alkaline Phosphatase 110, Troponin I < 0.01, Total Protein 7.5, Albumin 4.3, Globulin 3.2, Albumin/Globulin Ratio 1.3 07/29/21 13:19: SARS-CoV-2 (PCR) Not detected, Influenza A Untype (PCR) Not detected, Influenza Type B (PCR) Not detected Result diagrams: 07/29/21 13:19 07/29/21 13:19 Orders (Tests/Meds): ED MEDICATIONS Generic Name Dose Route Start Last Admin Trade Name Freq PRN Reason Stop Dose Admin Albuterol Sulfate 4 puffs 07/29/21 14:00 07/29/21 14:01 Albuterol-Hfa 90mcg/Puff Inhaler 8gm IH 08/28/21 13:59 4 puffs QIDRT AUGUST Administration Discontinued Medications Generic Name Dose Route Start Last Admin Trade Name Freq PRN Reason Stop Dose Admin Acetaminophen 1,000 mg 07/29/21 13:33 07/29/21 14:09 Acetaminophen 500mg Tab PO 07/29/21 13:34 1,000 mg ONCE ONE Administration Albuterol/Ipratropium 3 ml 07/29/21 13:58 07/29/21 14:18 Ipratropium/Albuterol 3 Ml Neb IH 07/29/21 13:59 3 ml ONCE ONE Administration Dexamethasone Sodium Phosphate 10 mg 07/29/21 13:58 07/29/21 14:10 Dexamethasone 4mg/Ml 1ml Vial IV 07/29/21 13:59 10 mg ONCE ONE Administration Lactated Ringer's 1,000 mls @ 999 mls/hr 07/29/21 13:45 07/29/21 13:42 Lactated Ringer's 1000 Ml Bag IV 07/29/21 14:45 999 mls/hr .Q1H1M AUGUST Administration Iopamidol 70 ml 07/29/21 15:48 07/29/21 15:49 Iopamidol-370 (76%);100ml Bottle IV 07/29/21 15:49 70 ml ONCE ONE Administration Ketorolac Tromethamine 15 mg 07/29/21 13:33 07/29/21 13:41 Ketorolac 30mg/Ml Vial IV 07/29/21 13:34 15 mg ONCE ONE Administration Miscellaneous 1 unit 07/29/21 13:42 07/29/21 14:18 Aerochamber/Optihaler MC 07/29/21 13:43 1 unit ONCE ONE Administration Sodium Chloride 50 ml 07/29/21 15:48 07/29/21 15:49 0.9 % Sodium Chloride 50 Ml Vial IV 07/29/21 15:49 50 ml ONCE ONE Administration So
[2021-07-29 13:37] VITALS: BMI 23.1
[2021-07-29 13:53] VITALS: BP 136/88; PULSE 93; RESP 17; TEMP 36.8; O2SAT 97; BMI 23.1
[2021-07-29 13:56] LABS: Coronavirus 19, PCR Not Detected (NotDetected); Influenza A, PCR Not Detected (NotDetected); Influenza B, PCR Not Detected (NotDetected)
[2021-07-29 13:58] LABS: Alanine Aminotransferase 21 U/L (12-78); Albumin Level 4.3 g/dl (3.5-5.0); Albumin/Globulin Ratio 1.3 (1.1-1.8); Alkaline Phosphatase 110 U/L (38-126); Anion Gap 11.7 mEq/L (5-15); Aspartate Amino Transferase 25 U/L (17-59); Blood Urea Nitrogen 10 mg/dl (9-20); Calcium 8.6 mg/dl (8.4-10.2); Carbon Dioxide 22 mmol/L (22.0-30.0); Chloride 110 mmol/L (98-107); Creatinine Clearance Estimated 79 mL/min (50-200); Estimated Glomerular Filt Rate 71 ml/min (>60); GFR (African American) 86 ML/MIN (>60); Globulin 3.2 g/dL (1.3-3.2); Glucose 120 mg/dl (74-100); Potassium 3.7 mmoL/L (3.5-5.1); Sodium 140 mmol/L (136-145); Total Protein,Serum 7.5 g/dl (6.3-8.2)
[2021-07-29 14:00] VITALS: BP 121/80; PULSE 74; RESP 24; O2SAT 89
[2021-07-29 14:03] LABS: Basophils # 0.2 K/mm3 (0-0.2); Basophils % 1.2 % (0.1-2.0); Eosinophils # 0.2 K/mm3 (0.0-0.4); Eosinophils % 1.4 % (0.1-12.0); Hematocrit 51.2 % (42.0-52.0); Hemoglobin 17.1 g/dL (14.1-18.0); Lymphocytes # 2.1 K/mm3 (0.7-4.5); Mean Corpuscular HGB Conc 33.4 g/dL (31.8-35.4); Mean Corpuscular Hemoglobin 33.6 pg (27.0-31.2); Mean Corpuscular Volume 100.7 fl (80-94); Mean Platelet Volume 8.4 fl (7.4-10.4); Monocytes # 0.8 K/mm3 (0.1-1.0); Monocytes % 6.8 % (1.7-9.3); Neutrophils # 8.9 K/mm3 (1.8-7.8); Neutrophils % 73.6 % (37.0-80.0); Platelet Count 202 K/mm3 (142-424); Red Blood Count 5.08 M/mm3 (4.60-6.20); Red Cell Distribution Width 13.6 % (11.5-17.5); White Blood Count 12.1 K/mm3 (4.8-10.8)
[2021-07-29 14:04] LABS: D-Dimer 0.53 ug/mL (0.0-0.5)
[2021-07-29 14:12] LABS: Troponin I < 0.01 ng/ml (0.00-0.034)
--- NOTE | 2021-07-29 14:23 | PC.NURSE ---
RT at BS for CARL
[2021-07-29 14:30] VITALS: BP 121/79; PULSE 84; RESP 24; O2SAT 84
--- NOTE | 2021-07-29 14:43 | PC.NURSE ---
PT RESTING O2 SAT 83% O2 APPLIED AT 2 LPM
--- NOTE | 2021-07-29 14:50 | PC.NURSE ---
ED MD at for update on POC
--- NOTE | 2021-07-29 15:19 | CT_ITS ---
PROCEDURE INFORMATION: Exam: CTA Chest With Contrast Exam date and time: 07/29/2021 3:34 PM Age: 51 years old Clinical indication: Shortness of breath; Additional info: Hypoxia, elevated d dimer TECHNIQUE: Imaging protocol: Computed tomographic angiography of the chest with contrast. 3D rendering (Not supervised by radiologist): MIP and/or 3D reconstructed images were created by the technologist. Radiation optimization: All CT scans at this facility use at least one of these dose optimization techniques: automated exposure control; mA and/or kV adjustment per patient size (includes targeted exams where dose is matched to clinical indication); or iterative reconstruction. Contrast material: ISOVUE; Contrast volume: 75 ml; Contrast route: INTRAVENOUS (IV); COMPARISON: CR XR CHEST PORTABLE 07/29/2021 1:50 PM FINDINGS: Pulmonary arteries: No visualized pulmonary embolus. The subsegmental pulmonary arteries are subobtimally demonstrated, and cannot be completely cleared. Aorta: Unremarkable. No aortic aneurysm. No aortic dissection. Lungs: Moderate centrilobular emphysema. Focal consolidation right upper lobe consistent with a nonspecific pneumonia. Minimal patchy areas of consolidation elsewhere. Pleural spaces: Unremarkable. No pneumothorax. No pleural effusion. Heart: Unremarkable. No cardiomegaly. No pericardial effusion. Lymph nodes: Unremarkable. No enlarged lymph nodes. Bones/joints: Old rib fractures. Soft tissues: Unremarkable. Other findings: No dissection or aneurysm. IMPRESSION: 1. No visualized pulmonary embolus. The subsegmental pulmonary arteries are subobtimally demonstrated, and cannot be completely cleared. 2. Moderate centrilobular emphysema. 3. Focal consolidation right upper lobe consistent with a nonspecific pneumonia. Minimal patchy areas of consolidation elsewhere.
--- NOTE | 2021-07-29 15:43 | PC.NURSE ---
patient back from Radiology
[2021-07-29 17:00] VITALS: BP 119/80; PULSE 71; RESP 18; TEMP 36.8; O2SAT 94
== END 2021-07-29 17:00 | disposition home or self-care (01) ==
PROVIDERS: Emergency Provider Student in an Organized Health Care Education/Training Program; PCP Family Medicine
DX: J44.1 Chronic obstructive pulmonary disease with (acute) exacerbation (principal); J18.9 Pneumonia, unspecified organism; R07.9 Chest pain, unspecified; R51.9 Headache, unspecified; Z20.822 Contact with and (suspected) exposure to COVID-19; I10 Essential (primary) hypertension; E78.5 Hyperlipidemia, unspecified; K21.9 Gastro-esophageal reflux disease without esophagitis; K75.9 Inflammatory liver disease, unspecified; M79.10 Myalgia, unspecified site; M19.90 Unspecified osteoarthritis, unspecified site; G40.909 Epilepsy, unspecified, not intractable, without status epilepticus; F32.A Depression, unspecified; F41.9 Anxiety disorder, unspecified; F17.210 Nicotine dependence, cigarettes, uncomplicated; Z79.51 Long term (current) use of inhaled steroids; Z79.899 Other long term (current) drug therapy; Z88.8 Allergy status to other drugs, medicaments and biological substances; Z80.9 Family history of malignant neoplasm, unspecified
CPT/HCPCS: 71045; 71275; 80053; 84484; 85025; 85378; 96361; 96365; 96374; 96375; 99285; C9803; Q9967; U0003; U0005

== ENCOUNTER 2021-07-30 08:21 | Observation (INO) | payer MEDICARE, MEDICAID, SELFPAY ==
--- NOTE | 2021-07-29 13:14 | ECG_ITS ---
APPROVED REPORT Exam: Resting ECG HR:91 bpm ECG Measurements Heart Rate 91 AXES [place] 159 P 73 QRSd 101 QRS 82 QT 323 T 54 QTc 372 Conclusion SINUS RHYTHM WITH SINUS ARRHYTHMIA INDETERMINATE AXIS NORMAL ECG UNCONFIRMED REPORT Electronically signed by : Augustine Garcias MD 08/01/2021 10:15:06
[2021-07-30] VITALS (12 sets, daily range): BP systolic 119–157; BP diastolic 69–116; PULSE 58–114; RESP 16–20; TEMP 36.7–37.5; O2SAT 92–98; BMI 23.1; BMI 23.5; BMI 23.3
--- NOTE | 2021-07-30 08:30 | XR_ITS ---
FINAL REPORT CLINICAL HISTORY: Acute cough COMPARISON: July 29, 2021 FINDINGS: The heart size is normal. The mediastinum is within normal limits. There is worsening right mid lung opacity consistent with pneumonia or atelectasis. There is no pleural effusion. There is no pneumothorax. There is a chronic right 5th posterior rib fracture. IMPRESSION: Worsening right mid lung pneumonia or atelectasis. Reviewed, Interpreted and Dictated by Evgeny Rosales III, MD Transcribed by Fady Mckeon Authenticated by Evgeny Rosales III, MD on 07/30/2021 08:54:[address] [facility]
--- NOTE | 2021-07-30 08:42 | HMH.EDGENADL ---
ED Disposition Clinical Impression: Acute exacerbation of chronic obstructive airways disease, Acute and chronic respiratory failure with hypoxia Pneumonia Qualifiers: Pneumonia type: due to unspecified organism Laterality: right Lung location: upper lobe of lung Qualified Code(s): J18.9 - Pneumonia, unspecified organism Disposition: Home, Self-Care Condition on Discharge: Good Instructions: Pneumonia-Adult Referrals: Provider,Referral, [Referring] - - Critical Care Critical Care Time: No Attestation: On 07/30/21, the high probability of a clinically significant, sudden or life threatening deterioration of the following system(s) required my full and direct attention, intervention and personal management. The time I documented below is in addition to time spent performing reported procedures but includes the following listed in this critical care notation. Medical Decision Making - Medical Records Medical records reviewed: Yes: I reviewed the patient's medical records. - Krishna Inquiry Pt receiving controlled substance: No Vital Signs: 07/30/21 08:22 07/30/21 09:30 07/30/21 10:00 Temperature 99.4 F Temperature Source Oral Pulse Rate 82 96 H Pulse Rate [Left Radial] 114 H Respiratory Rate 19 Blood Pressure 139/97 H 131/79 Blood Pressure [Right Arm] 156/90 H Blood Pressure Mean 107 96 Blood Pressure Mean [Right Arm] 112 Blood Pressure Source [Right Arm] Automatic Cuff Blood Pressure Position [Right Arm] Sitting 02 Sat by Pulse Oximetry 92 L 93 L Oxygen Delivery Method Room Air - Lab Data Lab Results 07/30/21 08:20: WBC 11.5 H, RBC 4.70, Hgb 15.9, Hct 47.6, MCV 101.1 H, MCH 33.8 H, MCHC 33.4, RDW 13.8, Plt Count 198, MPV 8.6, Neut % (Auto) 72.1, Lymph % (Auto) 17.4, [place] % (Auto) 6.3, Eos % (Auto) 1.8, Baso % (Auto) 2.4 H, Neut # (Auto) 8.3 H, Lymph # (Auto) 2.0, [place] # (Auto) 0.7, Eos # (Auto) 0.2, Baso # (Auto) 0.3 H 07/30/21 08:20: Sodium 139, Potassium 3.7, Chloride 111 H, Carbon Dioxide 24, Anion Gap 7.7, BUN 12, Creatinine 0.90, Estimated Creat Clear 97, Estimated GFR 90, Est GFR ( Amer) 109 D, Glucose 108 H, Calcium 7.8 L, Total Bilirubin 0.5, AST 26, ALT 23, Alkaline Phosphatase 99, Total Protein 6.7, Albumin 3.8 D, Globulin 2.9, Albumin/Globulin Ratio 1.3 Result diagrams: 07/30/21 08:20 07/30/21 08:20 Orders (Tests/Meds): ED MEDICATIONS Generic Name Dose Route Start Last Admin Trade Name Freq PRN Reason Stop Dose Admin Doxycycline Hyclate 100 mg 07/30/21 10:15 07/30/21 10:26 Doxycycline Hycl 100 Mg Tablet PO 08/13/21 10:14 100 mg Q12H AUGUST Administration Ceftriaxone Sodium 1 gm/ 50 mls @ 100 mls/hr 07/30/21 10:15 07/30/21 10:26 Sodium Chloride IV 08/13/21 10:14 100 mls/hr Q24H AUGUST Administration Discontinued Medications Generic Name Dose Route Start Last Admin Trade Name Freq PRN Reason Stop Dose Admin Guaifenesin 10 ml 07/30/21 10:03 07/30/21 10:26 Guaifenesin/Dextromethorphan 200mg/20mg 10ml Udc PO 07/30/21 10:04 10 ml ONCE ONE Administration Lactated Ringer's 1,000 mls @ 999 mls/hr 07/30/21 08:30 07/30/21 08:37 Lactated Ringer's 1000 Ml Bag IV 07/30/21 09:30 999 mls/hr .Q1H1M AUGUST Administration Promethazine HCl 25 mg 07/30/21 08:30 07/30/21 08:37 Promethazine Hcl 25mg/Ml 1ml Vial IV 07/30/21 08:31 25 mg ONCE ONE Administration Sodium Chloride 25 ml 07/30/21 08:30 07/30/21 08:37 Sodium Chloride 0.9% 25ml Bag IV 07/30/21 08:31 25 ml ONCE ONE Administration ORDERS Category Date Time Status Rapid PCR Covid and Flu A/B Routine Lab 07/30/21 10:25 Received - Radiology Data #1 Image(s): Chest Image Reviewed: Yes I reviewed the patient's radiology results, Yes I reviewed the patient's radiology image, Yes I have reviewed radiologist's interpretation IMPRESSION: Worsening right mid lung pneumonia or atelectasis. - Reevaluation(s) Time: 11:14 Reevaluation
[2021-07-30 08:43] LABS: Chloride 111 mmol/L (98-107); Potassium 3.7 mmoL/L (3.5-5.1); Sodium 139 mmol/L (136-145)
[2021-07-30 08:46] LABS: Alanine Aminotransferase 23 U/L (12-78); Albumin Level 3.8 g/dl (3.5-5.0); Albumin/Globulin Ratio 1.3 (1.1-1.8); Alkaline Phosphatase 99 U/L (38-126); Anion Gap 7.7 mEq/L (5-15); Aspartate Amino Transferase 26 U/L (17-59); Bilirubin,Total 0.5 mg/dl (0.2-1.3); Blood Urea Nitrogen 12 mg/dl (9-20); Calcium 7.8 mg/dl (8.4-10.2); Carbon Dioxide 24 mmol/L (22.0-30.0); Creatinine Clearance Estimated 97 mL/min (50-200); Estimated Glomerular Filt Rate 90 ml/min (>60); GFR (African American) 109 ML/MIN (>60); Globulin 2.9 g/dL (1.3-3.2); Glucose 108 mg/dl (74-100); Total Protein,Serum 6.7 g/dl (6.3-8.2)
[2021-07-30 08:49] LABS: Basophils # 0.3 K/mm3 (0-0.2); Basophils % 2.4 % (0.1-2.0); Eosinophils # 0.2 K/mm3 (0.0-0.4); Eosinophils % 1.8 % (0.1-12.0); Hematocrit 47.6 % (42.0-52.0); Hemoglobin 15.9 g/dL (14.1-18.0); Lymphocytes % 17.4 % (10-50); Mean Corpuscular HGB Conc 33.4 g/dL (31.8-35.4); Mean Corpuscular Hemoglobin 33.8 pg (27.0-31.2); Mean Corpuscular Volume 101.1 fl (80-94); Mean Platelet Volume 8.6 fl (7.4-10.4); Monocytes # 0.7 K/mm3 (0.1-1.0); Monocytes % 6.3 % (1.7-9.3); Neutrophils # 8.3 K/mm3 (1.8-7.8); Neutrophils % 72.1 % (37.0-80.0); Platelet Count 198 K/mm3 (142-424); Red Cell Distribution Width 13.8 % (11.5-17.5); White Blood Count 11.5 K/mm3 (4.8-10.8)
--- NOTE | 2021-07-30 10:19 | PC.NURSE ---
Dr Barron jarrett
--- NOTE | 2021-07-30 10:38 | PC.NURSE ---
Dr Mart paged again
[2021-07-30 10:46] LABS: Coronavirus 19, PCR Not Detected (NotDetected); Influenza A, PCR Not Detected (NotDetected); Influenza B, PCR Not Detected (NotDetected)
--- NOTE | 2021-07-30 11:15 | PC.NURSE ---
Spoke with Aishwarya in Care Management and advised of admission
--- NOTE | 2021-07-30 12:01 | PC.NURSE ---
Report given to Margie Jay RN
--- NOTE | 2021-07-30 12:48 | P.CONPHA_ITS ---
[facility] Pharmacy VTE Monitoring - Patient Demographics Admission date: 07/29/21 Report Date: 07/30/21 Time: 12:48 Allergies/Adverse Reactions: Patient Allergies fluoxetine [From Prozac] Allergy (Verified 07/25/21 13:45) Height: 1.73 m Weight: 70.108 kg Patient Problems: Current Active Problems Pneumonia (Acute) Acute exacerbation of chronic obstructive airways disease (Acute) Acute and chronic respiratory failure with hypoxia (Acute) - VTE Risk Labs: VTE Related Lab Results Hgb 15.9 g/dL (14.1-18.0) 07/30/21 08:20 Hct 47.6 % (42.0-52.0) 07/30/21 08:20 Plt Count 198 K/mm3 (142-424) 07/30/21 08:20 BUN 12 mg/dl (9-20) 07/30/21 08:20 Creatinine 0.90 mg/dl (0.66-1.25) 07/30/21 08:20 Estimated Creat Clear 97 mL/min (50-200) 07/30/21 08:20 - Prophylaxis VTE Prophylaxis Ordered?: Yes Types of VTE Prophylaxis: TEDS Knee High, Pharmacological Location of Applied Device: Bilateral Lower Extremeties Pharmacologic Type: Enoxaparin
--- NOTE | 2021-07-30 13:05 | HMH.PHAINT ---
Home medication list was verified using med-rec from office visit a few days ago with one of our providers.
--- NOTE | 2021-07-30 17:38 | HMH.HP ---
*Admission Date: 07/29/21 *Chief complaint: dyspnea, pneumonia *History of present illness: 51 yo male, was seen in ER yesterday with pneumonia. Treated and released, but did not fill his abx rx. Pt experienced marked dyspnea starting at 0500. Cough w/sputum prompted his calling 911. CXR in ER suggested process right lung, pneumonia vs atelectasis, worsening. Review of film shows air-trapping/ copd to a subjectively greater degree than infiltrative process. Suspect airway constriction/inflammation is present and contributing factor to cough and secretions. [facility] History 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: Reports:: Anxiety, Asthma, Chronic Obstructive Pulmonary Disease (COPD), Depression, Gastroesophageal Reflux Disease(GERD), Hepatitis, Hyperlipidemia, Hypertension, Migraine Denies:: Cancer, Diabetes Mellitus Type 1, Diabetes Mellitus Type 2, MRSA, Seizures *Have you ever received a pneumonia vaccine?: No *Have you received a flu vaccine this season?: No Other 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: Reports: Arthritis, Liver Disease Laterality Cases: Right: Arthroscopy Knee, Bilateral: Arthroscopy Shoulder, Tonsillectomy, Other Other Surgeries: Yes: Sinus Surgery, Other Amputation: No Fractures: Yes (nose, right ankle) - *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 Last grade of school completed: High school graduate Smoking Status: Current every day smoker Tobacco Type: cigarettes # Packs/Day (cigarettes): 1 Alcohol Intake: current Alcohol Intake Frequency:: holidays/special occasions only Substance Use Type: marijuana, former substance user, methamphetamine *Occupational Status:: disabled Housing: house Household Members: other *Travel in the last 8 weeks: None - Psychiatric History Pschychiatric History:: Reports:: Anxiety, Depression Family Hx:: Cancer Review of Systems - Constitutional Reports fatigue - Eyes Denies change in vision - ENT Denies abnormal hearing - *Cardiovascular Reports shortness of breath with activity, Denies chest pain, Denies rapid, pounding, or irregular heartbeat - *Respiratory Reports change in phlegm color, Reports chest congestion, Reports cough, Reports shortness of breath, Reports shortness of breath with activity, Reports excessive phlegm production, Reports pain with cough, Reports wheezing, Denies coughing up blood - *Gastrointestinal Denies abdominal pain - *Genitourinary Denies difficulty urinating - *Musculoskeletal Reports muscle weakness, Denies abnormal walking - Integumentary/Breasts Denies yellowing of the skin - *Neurologic Denies headache(s), Denies lack of coordination - Psychiatric Reports anxiety - Endocrine Denies cold intolerance, Denies excessive sweating - Hematologic/Lymphatic Denies easy bleeding, Denies easy bruising - Allergic/Immunologic Reports wheezing, Denies hives Meds Home Medications Medication Instructions Recorded Confirmed Type Ondansetron [Zofran 4mg ODT] 4 mg PO BIDP PRN #10 tab 12/13/20 07/30/21 Rx metaxalone 800 mg tablet 800 mg PO TID PRN #45 tab 02/01/21 07/30/21 Rx Cenobamate [Xcopri] 12.5 mg PO DAILY 03/06/21 07/30/21 History Thiamine HCl [Vitamin B-1] 200 mg PO DAILY 03/06/21 07/30/21 History atorvastatin 40 mg tablet 40 mg PO DAILY #90 tab 03/15/21 07/30/21 Rx hydrocodone 5 mg-acetaminophen 325 1 tab PO DAILY PRN #15 tab 03/15/21 07/30/21 Rx mg tablet olanzapine 5 mg tablet 5 mg PO QHS #90 tab 03/15/21 07/30/21 Rx ropinirole 1 mg tablet 1 mg PO HS #90 tab 03/15/21 07/30/21 Rx Dicyclomine HCl [Bentyl 10mg 10 mg PO BID PRN 5 Days #10 cap 04/15/21 07/30/21 Rx capsule] Melatonin 3 mg PO HS 06/01/21 07/30/21 History buspirone 15 mg tablet 15 mg PO TID PRN #90 tab 06/05/21 07/30/21 Rx fluticasone propionate 50 2 spray INTRANASAL DAILY #16 g 06/05/21 07/30/21 Rx mcg/actuation nasal spray,suspension Lidocaine [Lidocaine 5% patch] 1 patch TP Q12H PRN #3 patch 06/24/21 07/30/21 Rx hydroxyzine HCl 50 mg tablet 50 mg PO BID PRN #60 tab 06/25/21 07/30/21 Rx phenytoin sodium
[2021-07-31 01:18] VITALS: PULSE 58; PULSE 59
[2021-07-31 04:32] VITALS: BP 139/79; PULSE 74; RESP 20; TEMP 36.6; O2SAT 93
--- NOTE | 2021-07-31 04:54 | PC.NURSE ---
No acute changes. Tolerating RA well with sats >90%. Pt has had an intermittent wet cough t/o night. Pt c/o CHO due to coughing so much at beginning of shift. Tylenol administered per JUN, pt states favorable results. No other complaints voiced to staff. Call light within reach.
--- NOTE | 2021-07-31 06:00 | XR_ITS ---
PROCEDURE INFORMATION: Exam: XR Chest Exam date and time: 07/31/2021 5:17 AM Age: 51 years old Clinical indication: Condition or disease; Lung condition and disease; Pneumonia; Additional info: Pna TECHNIQUE: Imaging protocol: XR of the chest. Views: 1 view. COMPARISON: CR XR CHEST PORTABLE 07/30/2021 8:33 AM FINDINGS: Lungs: Similar hazy opacity in the mid right lung. Pleural spaces: Unremarkable. No pleural effusion. No pneumothorax. Heart/Mediastinum: Unremarkable. No cardiomegaly. Bones/joints: Remote right rib fracture. IMPRESSION: Similar appearance of pneumonia in the mid right lung.
[2021-07-31 06:15] VITALS: PULSE 85
[2021-07-31 06:56] LABS: Basophils % 0.5 % (0.1-2.0); Eosinophils % 0.1 % (0.1-12.0); Hematocrit 47.3 % (42.0-52.0); Hemoglobin 15.4 g/dL (14.1-18.0); Lymphocytes % 13.6 % (10-50); Mean Corpuscular HGB Conc 32.7 g/dL (31.8-35.4); Mean Corpuscular Hemoglobin 33.4 pg (27.0-31.2); Mean Corpuscular Volume 102.2 fl (80-94); Mean Platelet Volume 7.8 fl (7.4-10.4); Monocytes # 0.2 K/mm3 (0.1-1.0); Monocytes % 2.1 % (1.7-9.3); Neutrophils # 6.3 K/mm3 (1.8-7.8); Neutrophils % 83.8 % (37.0-80.0); Platelet Count 190 K/mm3 (142-424); Red Blood Count 4.63 M/mm3 (4.60-6.20); Red Cell Distribution Width 13.7 % (11.5-17.5); White Blood Count 7.5 K/mm3 (4.8-10.8)
[2021-07-31 06:59] LABS: Chloride 108 mmol/L (98-107)
[2021-07-31 07:00] LABS: Potassium 3.8 mmoL/L (3.5-5.1); Sodium 137 mmol/L (136-145)
[2021-07-31 07:03] LABS: Anion Gap 9.8 mEq/L (5-15); Blood Urea Nitrogen 11 mg/dl (9-20); Carbon Dioxide 23 mmol/L (22.0-30.0); Creatinine Clearance Estimated 110 mL/min (50-200); Estimated Glomerular Filt Rate 103 ml/min (>60); GFR (African American) 124 ML/MIN (>60); Glucose 139 mg/dl (74-100)
[2021-07-31 08:00] VITALS: BP 142/74; PULSE 72; RESP 19; TEMP 36.7; O2SAT 96
[2021-07-31 09:20] VITALS: PULSE 84
--- NOTE | 2021-07-31 09:25 | HMH.DCSUM ---
General - General Admission date:: 07/30/21 Discharge date: 07/31/21 HPI HPI: 51 yo male, was seen in ER yesterday with pneumonia. Treated and released, but did not fill his abx rx. Pt experienced marked dyspnea starting at 0500. Cough w/sputum prompted his calling 911. CXR in ER suggested process right lung, pneumonia vs atelectasis, worsening. Review of film shows air-trapping/ copd to a subjectively greater degree than infiltrative process. Suspect airway constriction/inflammation is present and contributing factor to cough and secretions. Hospital Course Hospital Course: 51-year-old male presented to the [facility] emergency department with reports of worsening productive cough, dyspnea, and fatigue. He was seen in the emergency department 1 day prior, diagnosed with pneumonia and prescribed antibiotics. He reports not picking up his antibiotics due to cost and incorrectly assumed he would get better. Chest x-ray today shows similar appearance of right mid lung pneumonia. He has received ceftriaxone IV and doxycycline p.o. He has been afebrile and current oxygenation is 96% on room air (1) Acute exacerbation of chronic obstructive airways disease Received methylprednisone IV and duo nebs. Reports having Breo inhaler at home and will stop by office if he needs replacement (2) Pneumonia Received methylprednisone, ceftriaxone, doxycycline IV, and duo nebs while inpatient Will be discharged on cefdinir and azithromycin (3) Nausea & vomiting Received Zofran IV for reports of nausea and vomiting Denies any nausea or vomiting this morning, has Zofran at house and will call if needs more (5) Degenerative joint disease of cervical spine Is following in clinic with chronic pain (7) Tobacco use Does not desire to discuss tobacco cessation today but will address at next clinic appointment Discussed importance of taking all medications per instruction and medications will be delivered to room. He verbalizes understanding and reports he will take all medications and will follow-up with PCP next week he denies any further questions/comments/complaints and is calling his friend to pick him up after lunch. Smoking cessation discussed and will be discussed again at follow-up appointment. PLAN: 1. We will discharge home today 2. Cefdinir and azithromycin prescriptions brought to room 3. Follow-up with PCP in 1 week Objective Vital signs: Temp Pulse Resp BP Pulse Ox 98.1 F 84 19 142/74 H 96 07/31/21 08:00 07/31/21 09:20 07/31/21 08:00 07/31/21 08:00 07/31/21 08:00 no acute distress - *Routine HEENT Exam Head: Present: normocephalic Eye: Present: EOMI ENT: Present: mucous membranes moist - *Routine Neck Exam Present: trachea midline. Absent: tracheal deviation - *Routine Respiratory Exam Present: decreased breath sounds, wheezes. Absent: accessory muscle use - *Routine Cardiovascular Exam Present: RRR - *Routine Abdominal Exam Present: soft, normoactive bowel sounds. Absent: tenderness, firm - *Routine Extremities Exam Present: full ROM, pulses intact. Absent: cyanosis, clubbing, edema - *Routine Skin Exam Present: intact, dry. Absent: cyanosis, erythema - *Routine Neurological Exam Present: alert, oriented X3. Absent: motor deficit - Routine Psychiatric Exam Present: normal affect, normal thought process. Absent: auditory hallucinations Results Labs on day of discharge: Labs from last 24 hours 07/31/21 07/31/21 07/30/21 06:21 06:21 10:25 WBC 7.5 D RBC 4.63 Hgb 15.4 Hct 47.3 MCV 102.2 H MCH 33.4 H MCHC 32.7 RDW 13.7 Plt Count 190 MPV 7.8 Neut % (Auto) 83.8 H Lymph % (Auto) 13.6 [place] % (Auto) 2.1 Eos % (Auto) 0.1 Baso % (Auto) 0.5 Neut # (Auto) 6.3 Lymph # (Auto) 1.0 [place] # (Auto) 0.2 Eos # (Auto) 0.0 Baso # (Auto) 0.0 Sodium 137 [place]
--- NOTE | 2021-08-01 15:17 | CARE MANAGER ---
Spoke with patient for post discharge follow-up and patient states that he is fine and doing well. He has his follow-up appointment and his medication.
== END 2021-07-31 12:30 | disposition home or self-care (01) ==
LOC: ER 11:15 → 2ND 11:28
PROVIDERS: Admitting Provider Family Medicine; Emergency Provider Emergency Medicine; PCP Family Medicine; Visit Provider Family Medicine
DX: J18.9 Pneumonia, unspecified organism; J44.1 Chronic obstructive pulmonary disease with (acute) exacerbation; Z20.822 Contact with and (suspected) exposure to COVID-19; Z79.899 Other long term (current) drug therapy; K21.9 Gastro-esophageal reflux disease without esophagitis; F17.210 Nicotine dependence, cigarettes, uncomplicated; I10 Essential (primary) hypertension; M54.50 Low back pain, unspecified; G43.909 Migraine, unspecified, not intractable, without status migrainosus; G89.29 Other chronic pain; M47.812 Spondylosis without myelopathy or radiculopathy, cervical region
CPT/HCPCS: G0378; 36415; 71045; 80048; 80053; 85025; 87070; 87205; 93005; 94640; 96365; 96375; 99285; C9803; J0696; U0003; U0005

== ENCOUNTER → 2021-09-19 06:26 | Outpatient (CLI) | payer MEDICARE, MEDICAID, SELFPAY ==
[2021-09-18 18:44] LABS: Basophils # 0.1 K/mm3 (0-0.2); Basophils % 2.1 % (0.1-2.0); Eosinophils # 0.5 K/mm3 (0.0-0.4); Eosinophils % 7.5 % (0.1-12.0); Hematocrit 47.4 % (42.0-52.0); Hemoglobin 15.8 g/dL (14.1-18.0); Lymphocytes # 2.8 K/mm3 (0.7-4.5); Lymphocytes % 41.2 % (10-50); Mean Corpuscular HGB Conc 33.3 g/dL (31.8-35.4); Mean Corpuscular Hemoglobin 33.5 pg (27.0-31.2); Mean Corpuscular Volume 100.4 fl (80-94); Mean Platelet Volume 9.1 fl (7.4-10.4); Monocytes # 0.5 K/mm3 (0.1-1.0); Monocytes % 7.3 % (1.7-9.3); Neutrophils # 2.8 K/mm3 (1.8-7.8); Neutrophils % 41.9 % (37.0-80.0); Platelet Count 248 K/mm3 (142-424); Red Blood Count 4.72 M/mm3 (4.60-6.20); Red Cell Distribution Width 13.3 % (11.5-17.5); White Blood Count 6.7 K/mm3 (4.8-10.8)
[2021-09-18 19:20] LABS: Alanine Aminotransferase 18 U/L (12-78); Albumin Level 4.1 g/dl (3.5-5.0); Albumin/Globulin Ratio 1.4 (1.1-1.8); Alkaline Phosphatase 91 U/L (38-126); Anion Gap 14.1 mEq/L (5-15); Aspartate Amino Transferase 30 U/L (17-59); Blood Urea Nitrogen 12 mg/dl (9-20); Calcium 8.9 mg/dl (8.4-10.2); Carbon Dioxide 23 mmol/L (22.0-30.0); Chloride 106 mmol/L (98-107); Estimated Glomerular Filt Rate 90 ml/min (>60); GFR (African American) 109 ML/MIN (>60); Globulin 2.9 g/dL (1.3-3.2); Glucose 90 mg/dl (74-100); Potassium 4.1 mmoL/L (3.5-5.1); Sodium 139 mmol/L (136-145)
[2021-09-18 19:25] LABS: Bilirubin,Total < 0.1 mg/dl (0.2-1.3); Phenytoin (Dilantin) < 3.0 ug/ml (10-20)
[2021-09-20 08:22] LABS: Hepatitis C Antibody >11.0 s/co ratio (0.0-0.9)
== END ==
PROVIDERS: PCP Family Medicine; Visit Provider Family Medicine
DX: B19.20 Unspecified viral hepatitis C without hepatic coma (principal); R53.83 Other fatigue
CPT/HCPCS: 80053; 80185; 85025; 87380; 87522

== ENCOUNTER 2021-09-28 09:10 | Emergency (ER) | payer MEDICARE, MEDICAID, SELFPAY ==
[2021-09-28 09:15] VITALS: BP 128/81; PULSE 88; RESP 18; TEMP 36.7; O2SAT 95; BMI 24.6
--- NOTE | 2021-09-28 09:22 | PC.NURSE ---
Staff heard a noise from pts room. Multiple staff members respond to pts room, pt laying on the floor in room on his back. Pt awake, alert and responsive to staff. Pt gets himself up on floor minimal assistance from staff. Pt reports he doesn't know what happened. Pt reports hx of black out seizures . Pt reports take dilantin for seizures. Pt has an abrasion noted on his head, in pts hairline. Small amount of bleeding noted. Unsure of what pt hit his head on. Pt able to move all extremities. Pt denies any pain. Notified ER MD.
--- NOTE | 2021-09-28 09:26 | HMH.EDGENADL ---
ED Disposition Clinical Impression: Seizure disorder, Subtherapeutic serum dilantin level Sinusitis Qualifiers: Sinusitis location: unspecified location Chronicity: acute Recurrence: not specified as recurrent Qualified Code(s): J01.90 - Acute sinusitis, unspecified Scalp abrasion Qualifiers: Encounter type: initial encounter Qualified Code(s): S00.01XA - Abrasion of scalp, initial encounter Vomiting Qualifiers: Vomiting type: unspecified Nausea presence: with nausea Qualified Code(s): R11.2 - Nausea with vomiting, unspecified Disposition: Home, Self-Care Condition on Discharge: Good Instructions: DI for Sinusitis, DI for Seizure Disorder -- Adult Additional Instructions: Take Dilantin 4 pills tonight. Resume your usual Dilantin dosage, 2 in the morning and 3 at night, starting tomorrow. Z-Cezar as prescribed. Zofran as needed for nausea and vomiting. Follow-up with your primary care provider next week. Prescriptions: Azithromycin [Zithromax 250mg tab] 250 mg PO DIRECTED #6 tab Transmission Status: Pending to [facility] Ondansetron [Zofran 4mg ODT] 4 mg PO TIDP PRN #10 tab PRN Reason: Nausea And Vomiting Transmission Status: P[facility] to [facility] Referrals: Erik Mart MD [Primary Care Provider] - - Critical Care Critical Care Time: No Attestation: On 09/28/21, the high probability of a clinically significant, sudden or life threatening deterioration of the following system(s) required my full and direct attention, intervention and personal management. The time I documented below is in addition to time spent performing reported procedures but includes the following listed in this critical care notation. Medical Decision Making - Krishna Inquiry Pt receiving controlled substance: No Vital Signs: 09/28/21 09:15 09/28/21 10:00 Temperature 98.0 F Temperature Source Oral Pulse Rate 62 Pulse Rate [Brachial] 88 Respiratory Rate 18 20 Blood Pressure 113/94 H Blood Pressure [Right Arm] 128/81 Blood Pressure Mean 99 Blood Pressure Mean [Right Arm] 96 Blood Pressure Source [Right Arm] Automatic Cuff Blood Pressure Position [Right Arm] Sitting 02 Sat by Pulse Oximetry 95 94 L Oxygen Delivery Method Room Air - Lab Data Lab Results 09/28/21 09:17: SARS-CoV-2 (PCR) Not detected, Influenza A Untype (PCR) Not detected, Influenza Type B (PCR) Not detected 09/28/21 09:40: WBC 10.2, RBC 4.91, Hgb 16.9, Hct 48.6, MCV 98.9 H, MCH 34.5 H, MCHC 34.8, RDW 13.4, Plt Count 260, MPV 8.0, Neut % (Auto) 64.4, Lymph % (Auto) 19.9, [place] % (Auto) 7.2, Eos % (Auto) 5.4, Baso % (Auto) 3.1 H, Neut # (Auto) 6.6, Lymph # (Auto) 2.0, [place] # (Auto) 0.7, Eos # (Auto) 0.6 H, Baso # (Auto) 0.3 H 09/28/21 09:40: Sodium 139, Potassium 4.0, Chloride 107, Carbon Dioxide 25, Anion Gap 11.0, BUN 16, Creatinine 1.10, Estimated Creat Clear 84, Estimated GFR 71, Est GFR ( Amer) 86, Glucose 107 H, Calcium 8.8, Total Bilirubin 0.6, AST 30, ALT 21, Alkaline Phosphatase 106, Total Protein 7.0, Albumin 4.2, Globulin 2.8, Albumin/Globulin Ratio 1.5, Phenytoin < 3.0 L 09/28/21 09:48: Group A Strep Rapid Negative Result diagrams: 09/28/21 09:40 09/28/21 09:40 Orders (Tests/Meds): ED MEDICATIONS Discontinued Medications Generic Name Dose Route Start Last Admin Trade Name Micheline PRN Reason Stop Dose Admin Ondansetron HCl 4 mg 09/28/21 09:33 09/28/21 09:39 Ondansetron 4mg/2ml Vial IV 09/28/21 09:34 4 mg ONCE ONE Administration Phenytoin Sodium 400 mg 09/28/21 10:16 09/28/21 10:24 Phenytoin 100mg Capsule PO 09/28/21 10:17 400 mg ONCE ONE Administration Sodium Chloride 1,000 ml 09/28/21 09:33 09/28/21 09:39 Sodium Chloride 0.9% 1000ml Bag IV 09/28/21 09:34 1,000 ml BOLUS ONE Administration ORDERS Category Date Time Status Strep Screen Confirmation Stat Micro 09/28/21 09:48 Received - Radiology Data #1 Image(s): Chest Image Revie
--- NOTE | 2021-09-28 09:30 | PC.NURSE ---
PEARL SUMMERS at
--- NOTE | 2021-09-28 09:33 | XR_ITS ---
FINAL REPORT CLINICAL HISTORY: cough, smoker, asthma, COPD. Pt states that he came to the ER because of his congestion and cough over the last few weeks and states that he is epileptic and experienced a seizure this morning. COMPARISON: July 31, 2021 FINDINGS: Two views of the chest were obtained. The heart size and pulmonary vascularity are within normal limits. The mediastinum is normal. No acute pulmonary abnormality is identified. There is no pneumothorax. There is a chronic right 5th posterior rib fracture. IMPRESSION: No active cardiopulmonary disease. Reviewed, Interpreted and Dictated by Evgeny Rosales III, MD Transcribed by Fady Mckeon Authenticated and [facility]
[2021-09-28 09:41] LABS: Coronavirus 19, PCR Not Detected (NotDetected); Influenza A, PCR Not Detected (NotDetected)
[2021-09-28 09:42] LABS: Influenza B, PCR Not Detected (NotDetected)
--- NOTE | 2021-09-28 09:50 | PC.NURSE ---
PT TO RADIOLOGY AT THIS TIME
[2021-09-28 09:57] LABS: Basophils # 0.3 K/mm3 (0-0.2); Basophils % 3.1 % (0.1-2.0); Eosinophils # 0.6 K/mm3 (0.0-0.4); Eosinophils % 5.4 % (0.1-12.0); Hematocrit 48.6 % (42.0-52.0); Hemoglobin 16.9 g/dL (14.1-18.0); Lymphocytes % 19.9 % (10-50); Mean Corpuscular HGB Conc 34.8 g/dL (31.8-35.4); Mean Corpuscular Hemoglobin 34.5 pg (27.0-31.2); Mean Corpuscular Volume 98.9 fl (80-94); Monocytes # 0.7 K/mm3 (0.1-1.0); Monocytes % 7.2 % (1.7-9.3); Neutrophils # 6.6 K/mm3 (1.8-7.8); Neutrophils % 64.4 % (37.0-80.0); Platelet Count 260 K/mm3 (142-424); Red Blood Count 4.91 M/mm3 (4.60-6.20); Red Cell Distribution Width 13.4 % (11.5-17.5); White Blood Count 10.2 K/mm3 (4.8-10.8)
[2021-09-28 10:00] VITALS: BP 113/94; PULSE 62; RESP 20; O2SAT 94
[2021-09-28 10:02] LABS: Strep Scrn Group A (Rapid) Negative (Negative)
[2021-09-28 10:09] LABS: Alanine Aminotransferase 21 U/L (12-78); Albumin Level 4.2 g/dl (3.5-5.0); Albumin/Globulin Ratio 1.5 (1.1-1.8); Alkaline Phosphatase 106 U/L (38-126); Aspartate Amino Transferase 30 U/L (17-59); Bilirubin,Total 0.6 mg/dl (0.2-1.3); Blood Urea Nitrogen 16 mg/dl (9-20); Calcium 8.8 mg/dl (8.4-10.2); Carbon Dioxide 25 mmol/L (22.0-30.0); Chloride 107 mmol/L (98-107); Creatinine Clearance Estimated 84 mL/min (50-200); Estimated Glomerular Filt Rate 71 ml/min (>60); GFR (African American) 86 ML/MIN (>60); Globulin 2.8 g/dL (1.3-3.2); Glucose 107 mg/dl (74-100); Phenytoin (Dilantin) < 3.0 ug/ml (10-20); Sodium 139 mmol/L (136-145)
[2021-09-28 10:30] VITALS: BP 110/56; PULSE 61; RESP 20; O2SAT 96
[2021-09-28 11:15] VITALS: BP 118/64; PULSE 67; RESP 18; TEMP 36.7; O2SAT 99
== END 2021-09-28 11:15 | disposition home or self-care (01) ==
PROVIDERS: Emergency Provider Emergency Medicine; PCP Family Medicine
DX: J01.90 Acute sinusitis, unspecified (principal); J02.9 Acute pharyngitis, unspecified; S00.01XA Abrasion of scalp, initial encounter; R11.2 Nausea with vomiting, unspecified; Z20.822 Contact with and (suspected) exposure to COVID-19; K21.9 Gastro-esophageal reflux disease without esophagitis; E78.5 Hyperlipidemia, unspecified; M19.90 Unspecified osteoarthritis, unspecified site; K75.9 Inflammatory liver disease, unspecified; K76.9 Liver disease, unspecified; G43.909 Migraine, unspecified, not intractable, without status migrainosus; G40.909 Epilepsy, unspecified, not intractable, without status epilepticus; J44.9 Chronic obstructive pulmonary disease, unspecified; F20.9 Schizophrenia, unspecified; F32.A Depression, unspecified; F41.9 Anxiety disorder, unspecified; F17.210 Nicotine dependence, cigarettes, uncomplicated; Z79.51 Long term (current) use of inhaled steroids; Z79.52 Long term (current) use of systemic steroids; Z79.899 Other long term (current) drug therapy; Z88.8 Allergy status to other drugs, medicaments and biological substances; Z80.9 Family history of malignant neoplasm, unspecified
CPT/HCPCS: 71046; 80053; 80185; 85025; 87430; 99285; C9803; J2405; U0003; U0005

== ENCOUNTER 2021-09-29 19:52 | Emergency (ER) | payer MEDICARE, MEDICAID, SELFPAY ==
[2021-09-29 19:53] VITALS: BP 137/82; PULSE 68; RESP 16; TEMP 37.5; O2SAT 97; BMI 24.6
[2021-09-29 20:12] LABS: Coronavirus 19, PCR Not Detected (NotDetected); Influenza A, PCR Not Detected (NotDetected); Influenza B, PCR Not Detected (NotDetected)
[2021-09-29 20:23] LABS: Strep Scrn Group A (Rapid) Negative (Negative)
[2021-09-29 20:57] LABS: Basophils # 0.2 K/mm3 (0-0.2); Basophils % 2.9 % (0.1-2.0); Eosinophils # 0.6 K/mm3 (0.0-0.4); Eosinophils % 7.4 % (0.1-12.0); Hematocrit 45.6 % (42.0-52.0); Hemoglobin 15.3 g/dL (14.1-18.0); Lymphocytes # 2.3 K/mm3 (0.7-4.5); Lymphocytes % 29.3 % (10-50); Mean Corpuscular HGB Conc 33.5 g/dL (31.8-35.4); Mean Corpuscular Hemoglobin 33.3 pg (27.0-31.2); Mean Corpuscular Volume 99.4 fl (80-94); Mean Platelet Volume 7.8 fl (7.4-10.4); Monocytes # 0.6 K/mm3 (0.1-1.0); Monocytes % 7.3 % (1.7-9.3); Neutrophils # 4.2 K/mm3 (1.8-7.8); Neutrophils % 53.2 % (37.0-80.0); Platelet Count 218 K/mm3 (142-424); Red Blood Count 4.59 M/mm3 (4.60-6.20); Red Cell Distribution Width 13.4 % (11.5-17.5)
[2021-09-29 21:04] LABS: Alanine Aminotransferase 19 U/L (12-78); Albumin Level 3.9 g/dl (3.5-5.0); Albumin/Globulin Ratio 1.4 (1.1-1.8); Alkaline Phosphatase 98 U/L (38-126); Anion Gap 10.1 mEq/L (5-15); Aspartate Amino Transferase 28 U/L (17-59); Blood Urea Nitrogen 11 mg/dl (9-20); Calcium 8.6 mg/dl (8.4-10.2); Carbon Dioxide 27 mmol/L (22.0-30.0); Chloride 107 mmol/L (98-107); Creatinine Clearance Estimated 93 mL/min (50-200); Estimated Glomerular Filt Rate 79 ml/min (>60); GFR (African American) 96 ML/MIN (>60); Globulin 2.7 g/dL (1.3-3.2); Glucose 113 mg/dl (74-100); Potassium 4.1 mmoL/L (3.5-5.1); Sodium 140 mmol/L (136-145); Total Protein,Serum 6.6 g/dl (6.3-8.2)
[2021-09-29 21:05] LABS: Bilirubin,Total < 0.1 mg/dl (0.2-1.3)
[2021-09-29 21:39] LABS: Adenovirus F 40/41, stool Not Detected (NotDetected); Astrovirus Not Detected (NotDetected); Clostridium Difficile A/B, PCR Not Detected (NotDetected); Cryptosporidium Not Detected (NotDetected); Cyclospora Cayetanesis Not Detected (NotDetected); Entamoeba histolytica Not Detected (NotDetected); Enteroaggregative E coli Not Detected (NotDetected); Enterotoxigenic E coli Not Detected (NotDetected); Giardia lamblia Not Detected (NotDetected); Norovirus Not Detected (NotDetected); Plesimonas Shigalloides, PCR Not Detected (NotDetected); Rotavirus A Not Detected (NotDetected); Salmonella, PCR Not Detected (NotDetected); Sapovirus Not Detected (NotDetected); Shiga-like toxin E coli Not Detected (NotDetected); Shigella Enterovasive E coli Not Detected (NotDetected); Vibrio Cholerae Not Detected (NotDetected); Vibrio, PCR Not Detected (NotDetected); Yersinia Entercolitica, PCR Not Detected (NotDetected)
--- NOTE | 2021-09-29 21:57 | HMH.EDURI ---
ED Disposition Clinical Impression: Pharyngitis Qualifiers: Pharyngitis/tonsillitis etiology: unspecified etiology Qualified Code(s): J02.9 - Acute pharyngitis, unspecified Disposition: Home, Self-Care Condition on Discharge: Good Instructions: DI for Pharyngitis/Tonsillopharyngitis -- Adult Additional Instructions: see pcp and finish meds Prescriptions: predniSONE [Prednisone 20mg Tab] 20 mg PO BID #10 tab Transmission Status: Pending to [id number] Referrals: Erik Mart MD [Primary Care Provider] - - Critical Care Critical Care Time: No Attestation: On 09/29/21, the high probability of a clinically significant, sudden or life threatening deterioration of the following system(s) required my full and direct attention, intervention and personal management. The time I documented below is in addition to time spent performing reported procedures but includes the following listed in this critical care notation. Medical Decision Making - Medical Records Medical records reviewed: Yes: I reviewed the patient's medical records. - Krishna Inquiry Pt receiving controlled substance: No Vital Signs: 09/29/21 19:53 Temperature 99.5 F Temperature Source Oral Pulse Rate [Left Radial] 68 Respiratory Rate 16 Blood Pressure [Right Arm] 137/82 Blood Pressure Mean [Right Arm] 100 Blood Pressure Source [Right Arm] Automatic Cuff Blood Pressure Position [Right Arm] Sitting 02 Sat by Pulse Oximetry 97 Oxygen Delivery Method Room Air - Lab Data Lab results reviewed: Yes: I reviewed the patient's lab results. Lab Results 09/29/21 20:05: Group A Strep Rapid Negative 09/29/21 20:05: SARS-CoV-2 (PCR) Not detected, Influenza A Untype (PCR) Not detected, Influenza Type B (PCR) Not detected 09/29/21 20:50: WBC 8.0, RBC 4.59 L, Hgb 15.3, Hct 45.6, MCV 99.4 H, MCH 33.3 H, MCHC 33.5, RDW 13.4, Plt Count 218, MPV 7.8, Neut % (Auto) 53.2, Lymph % (Auto) 29.3, [place] % (Auto) 7.3, Eos % (Auto) 7.4, Baso % (Auto) 2.9 H, Neut # (Auto) 4.2, Lymph # (Auto) 2.3, [place] # (Auto) 0.6, Eos # (Auto) 0.6 H, Baso # (Auto) 0.2 09/29/21 20:50: Sodium 140, Potassium 4.1, Chloride 107, Carbon Dioxide 27, Anion Gap 10.1, BUN 11 D, Creatinine 1.00, Estimated Creat Clear 93, Estimated GFR 79, Est GFR ( Amer) 96, Glucose 113 H, Calcium 8.6, Total Bilirubin < 0.1 L, AST 28, ALT 19, Alkaline Phosphatase 98, Total Protein 6.6, Albumin 3.9, Globulin 2.7, Albumin/Globulin Ratio 1.4 Result diagrams: 09/29/21 20:50 09/29/21 20:50 Orders (Tests/Meds): ED MEDICATIONS Generic Name Dose Route Start Last Admin Trade Name Freq PRN Reason Stop Dose Admin Sodium Chloride 1,000 mls @ 999 mls/hr 09/29/21 20:45 09/29/21 20:44 Sod Chlor 0.9% 1000ml Bag IV 09/29/21 21:45 999 mls/hr .Q1H1M AUGUST Administration ORDERS Category Date Time Status Diarrhea 23 Panel, PCR Stat Lab 09/29/21 21:30 Received Strep Screen Confirmation Stat Micro 09/29/21 20:05 Received Medical Decision Narrative: stable exam and labs URI/Sore Throat HPI - General Chief Complaint: Upper Respiratory Infection Stated Complaint: sore throat,Diarrhea Time Seen by Provider: 09/29/21 21:58 Mode of Arrival: Ambulatory Source of Information: Patient, Medical Record Limitations: No Limitations Description of Symptoms (Recalled from ER Triage Doc. by RN): PT SEEN IN UTC AND DX WITH SORE THROAT AND GIVEN ABX. PT REPORTS HE NOW HAS A SORE TOUNGUE. PT HAS BEEN TAKING MEDICATION X 2 DAYS - TODAY HE HAD 3 EPISODES OF DIARRHEA TODAY AND DENIES ALL ABDOMINAL PAIN AT THIS TIME. PT AWARE THAT WE WILL NEED STOOL SAMPLE. - History of Present Illness HPI Narrative: pt with sore throat and painful swallowing - was seen in the ed yesterday and started on abx MD Complaint: sore throat Onset (ago): day(s) Severity: moderate Exacerbating factors: swallowing Able to tolerate fluids by mouth: Yes Associated symptoms: denies other symptoms Treatments prior
[2021-09-29 22:30] VITALS: BP 136/74; PULSE 89; RESP 16; TEMP 36.6; O2SAT 97
[2021-09-29 23:32] LABS: Campylobacter Detected (NotDetected); Enteropathogenic E coli Detected (NotDetected)
== END 2021-09-29 22:31 | disposition home or self-care (01) ==
PROVIDERS: Emergency Provider Emergency Medicine; PCP Family Medicine
DX: J02.9 Acute pharyngitis, unspecified (principal); J06.9 Acute upper respiratory infection, unspecified; R10.9 Unspecified abdominal pain; R19.7 Diarrhea, unspecified; Z20.822 Contact with and (suspected) exposure to COVID-19; I10 Essential (primary) hypertension; K21.9 Gastro-esophageal reflux disease without esophagitis; E78.5 Hyperlipidemia, unspecified; M19.90 Unspecified osteoarthritis, unspecified site; J98.4 Other disorders of lung; J45.909 Unspecified asthma, uncomplicated; G40.909 Epilepsy, unspecified, not intractable, without status epilepticus; G43.909 Migraine, unspecified, not intractable, without status migrainosus; F32.A Depression, unspecified; F17.210 Nicotine dependence, cigarettes, uncomplicated; Z79.51 Long term (current) use of inhaled steroids; Z79.52 Long term (current) use of systemic steroids; Z88.8 Allergy status to other drugs, medicaments and biological substances; Z86.19 Personal history of other infectious and parasitic diseases; Z80.9 Family history of malignant neoplasm, unspecified
CPT/HCPCS: 80053; 85025; 87430; 87507; 96374; 99284; C9803; U0003; U0005

== ENCOUNTER 2021-12-21 09:18 | Emergency (ER) | payer MEDICARE, MEDICAID, SELFPAY ==
[2021-12-21 09:25] VITALS: BP 156/67; PULSE 79; RESP 18; O2SAT 97; BMI 24.3
--- NOTE | 2021-12-21 09:35 | XR_ITS ---
FINAL REPORT CLINICAL HISTORY: injury FINDINGS: Three views of the left elbow were obtained. There is no acute fracture or dislocation. There is a chronic calcification adjacent to the medial malleolus. Mild degenerative changes are noted. There is not soft tissue abnormality. IMPRESSION: No acute bony abnormality. Reviewed, Interpreted and Dictated by Evgeny Rosales III, MD Transcribed by Enid Mccord Authenticated and [facility]
[2021-12-21 09:55] VITALS: BP 156/67; PULSE 79; RESP 18; TEMP 36.8; O2SAT 97; BMI 24.4
--- NOTE | 2021-12-21 10:11 | EXP.UTC ---
Discharge Plan Disposition Patient Disposition: Home, Self-Care Condition: Good Prescriptions Prescriptions: New methylprednisolone [Medrol (Cezar)] 4 mg tablets,dose pack 4 mg PO DIRECTED Qty: 21 0RF No Action esomeprazole magnesium 40 mg capsule,delayed release(DR/EC) See Rx Instructions .ROUTE .COMPLEX Qty: 90 0RF Dose Instruction: TAKE ONE CAPSULE BY MOUTH EVERY DAY FOR gerd Rx Instructions: TAKE ONE CAPSULE BY MOUTH EVERY DAY FOR gerd albuterol sulfate 90 mcg/actuation HFA aerosol inhaler 2 inh IH Q4-6H PRN (Reason: Shortness Of Breath Or Wheezing) Qty: 8.5 10RF fluticasone furoate-vilanterol 200-25 mcg/dose blister with device 1 inh INHALATION DAILY Qty: 28 10RF phenytoin sodium extended 100 mg capsule See Rx Instructions .ROUTE .COMPLEX Qty: 150 10RF Rx Instructions: two pills in the morning, three pills in the evening ropinirole 1 mg tablet 1 mg PO HS Qty: 90 3RF Rx Instructions: TAKE ONE TABLET BY MOUTH EVERY DAY AT BEDTIME hydrocodone-acetaminophen 5-325 mg tablet 1 tab PO DAILY PRN (Reason: pain) Qty: 15 0RF olanzapine [Zyprexa] 5 mg tablet 5 mg PO QHS Qty: 90 3RF hydroxyzine HCl 50 mg tablet 50 mg PO BID PRN (Reason: anxiety) Qty: 60 3RF fluticasone propionate 50 mcg/actuation spray,suspension 2 spray INTRANASAL DAILY Qty: 16 2RF Rx Instructions: administer into each nostril escitalopram oxalate [Lexapro] 20 mg tablet 20 mg PO DAILY Qty: 90 3RF ipratropium-albuterol 0.5 mg-3 mg(2.5 mg base)/3 mL solution for nebulization 3 ml IH Q8H PRN (Reason: shortness of breath or wheezing) Qty: 180 10RF buspirone 15 mg tablet 15 mg PO TID PRN (Reason: anxiety) Qty: 90 2RF nicotine 21 mg/24 hr patch 24 hour 1 patch TD DAILY Qty: 28 5RF atorvastatin 40 mg tablet 40 mg PO DAILY Qty: 90 3RF Rx Instructions: TAKE ONE TABLET BY MOUTH EVERY DAY thiamine HCl (vitamin B1) 100 MG tablet 200 mg PO DAILY cenobamate 1 EACH tablet 12.5 mg PO DAILY melatonin 3 MG tablet 3 mg PO HS Rx Instructions: Take 1 tab at bedtime as needed for sleep. lidocaine 0.05 MG/MG adhesive patch,medicated 1 patch TP Q12H PRN (Reason: pain) Qty: 3 0RF Rx Instructions: Apply to right chest wall along rib cage at location of maximal pain. Apply only one patch at a time. dicyclomine 10 MG capsule 10 mg PO BID PRN (Reason: abdominal spasms) 5 Days Qty: 10 0RF ondansetron 4 MG tablet,disintegrating 4 mg PO TIDP PRN (Reason: Nausea And Vomiting) Qty: 10 0RF Referrals Follow up/Referrals: Erik Mart MD [Primary Care Provider] - See instructions Activity Restrictions/Add. Instructions Additional Instructions/Restrictions: Sling to left arm Take meds as directed Alternate ice/heat You have been tested for COVID19. Those results should be available later today. Clinical Impressions Clinical Impression: Bursitis of left elbow, Upper respiratory infection Instructions Patient Instructions: DI for Elbow Bursitis Discharge ED Provider: Brenna Perez [facility] HPI General Stated complaint: [id number] left elbow pain Mode of Arrival: Ambulatory Source of Information: Patient Limitations: No Limitations Time Seen by Provider: 12/21/21 10:11 Description of Symptoms (Recalled from Triage Doc. by RN): pt comes in with c/o left elbow pain. pt was working on his car and he fell onto his elbow on the concrete. incident occured yesterday. pt also here for covid test. symptoms include runny nose, cough, sore throat. pt has felt sick for 3-4 days HEENT Symptoms (Recalled from RN notes): Yes Resp Symptoms (Recalled from RN notes): No Skin Symptoms (Recalled from RN notes): No MS Symptoms (Recalled from RN notes): Yes Functional Status (Recalled from RN notes): n/a History of Present Illness Provider Complaint: Patient was working on car last night. Clif slipped, he struck his lef
[2021-12-21 11:20] VITALS: BP 156/67; PULSE 79; RESP 18; TEMP 36.8
== END 2021-12-21 11:25 | disposition home or self-care (01) ==
PROVIDERS: Emergency Provider Physician Assistant; PCP Family Medicine
DX: M70.32 Other bursitis of elbow, left elbow (principal); J06.9 Acute upper respiratory infection, unspecified; J02.9 Acute pharyngitis, unspecified; R11.2 Nausea with vomiting, unspecified; R25.2 Cramp and spasm; Z20.822 Contact with and (suspected) exposure to COVID-19; G40.909 Epilepsy, unspecified, not intractable, without status epilepticus; B19.10 Unspecified viral hepatitis B without hepatic coma; J44.9 Chronic obstructive pulmonary disease, unspecified; F20.9 Schizophrenia, unspecified; F41.9 Anxiety disorder, unspecified; F17.210 Nicotine dependence, cigarettes, uncomplicated; Z79.51 Long term (current) use of inhaled steroids; Z79.899 Other long term (current) drug therapy; Z88.0 Allergy status to penicillin
CPT/HCPCS: 73080; 99213; C9803; G0463; U0003; U0005

== ENCOUNTER 2022-02-25 18:11 | Emergency (ER) | payer MEDICARE, MEDICAID, SELFPAY ==
[2022-02-25 19:49] VITALS: BP 141/78; PULSE 88; RESP 18; TEMP 36.6; O2SAT 97; BMI 24.3
--- NOTE | 2022-02-25 21:32 | HMH.EDWNDL ---
Discharge Plan Disposition Patient Disposition: Home, Self-Care Prescriptions Prescriptions: New cephalexin [cephalexin] 500 mg capsule 500 mg PO TID Qty: 30 0RF No Action esomeprazole magnesium 40 mg capsule,delayed release(DR/EC) See Rx Instructions .ROUTE .COMPLEX Qty: 90 0RF Dose Instruction: TAKE ONE CAPSULE BY MOUTH EVERY DAY FOR gerd Rx Instructions: TAKE ONE CAPSULE BY MOUTH EVERY DAY FOR gerd albuterol sulfate 90 mcg/actuation HFA aerosol inhaler 2 inh IH Q4-6H PRN (Reason: Shortness Of Breath Or Wheezing) Qty: 8.5 10RF fluticasone furoate-vilanterol 200-25 mcg/dose blister with device 1 inh INHALATION DAILY Qty: 28 10RF phenytoin sodium extended 100 mg capsule See Rx Instructions .ROUTE .COMPLEX Qty: 150 10RF Rx Instructions: two pills in the morning, three pills in the evening ropinirole 1 mg tablet 1 mg PO HS Qty: 90 3RF Rx Instructions: TAKE ONE TABLET BY MOUTH EVERY DAY AT BEDTIME fluticasone propionate [Flonase Allergy Relief] 50 mcg/actuation spray,suspension 1 spray intranasal Q12H Qty: 16 10RF Rx Instructions: administer into each nostril methylprednisolone [Medrol (Cezar)] 4 mg tablets,dose pack See Rx Instructions PO PER PKG DIR Qty: 21 0RF Rx Instructions: PO PER PKG DIR cefdinir 300 mg capsule 300 mg PO BID 10 Days Qty: 20 0RF lorazepam 0.5 mg tablet 0.5 mg PO DAILY PRN (Reason: anxiety) Qty: 10 1RF fluticasone propionate 50 mcg/actuation spray,suspension 2 spray INTRANASAL DAILY Qty: 16 2RF Rx Instructions: administer into each nostril escitalopram oxalate [Lexapro] 20 mg tablet 20 mg PO DAILY Qty: 90 3RF hydroxyzine HCl 50 mg tablet 50 mg PO BID PRN (Reason: anxiety) Qty: 60 12RF ipratropium-albuterol 0.5 mg-3 mg(2.5 mg base)/3 mL solution for nebulization 3 ml IH Q8H PRN (Reason: shortness of breath or wheezing) Qty: 180 10RF buspirone 15 mg tablet 15 mg PO TID PRN (Reason: anxiety) Qty: 90 2RF nicotine 21 mg/24 hr patch 24 hour 1 patch TD DAILY Qty: 28 5RF atorvastatin 40 mg tablet 40 mg PO DAILY Qty: 90 3RF Rx Instructions: TAKE ONE TABLET BY MOUTH EVERY DAY cenobamate 1 EACH tablet 12.5 mg PO DAILY melatonin 3 MG tablet 3 mg PO HS Rx Instructions: Take 1 tab at bedtime as needed for sleep. Referrals Follow up/Referrals: Erik Mart MD [Primary Care Provider] - See instructions Clinical Impressions Clinical Impression: Laceration of ear lobe Instructions Patient Instructions: DI for Laceration Repair Discharge ED Provider: Koffi Daniels Wound/Laceration HPI General Chief Complaint: Wound/Laceration Stated Complaint: ao 02/25, left ear lobe laceration Time Seen by Provider: 02/25/22 21:32 Mode of Arrival: Ambulatory Source of Information: Patient and Medical Record Limitations: No Limitations Description of Symptoms (Recalled from ER Triage Doc. by RN): Pt states an hour prior to arrival he was playing with a friends dog when his earring got caught on the collar and ripped the earring out. Pt has laceration to left ear lobe. Bleeding is controlled. History of Present Illness HPI narrative: lt ear lobe lac as ear ring was pulled out Onset (ago): hour(s) Location: other (ear ) Place: home Patient tetanus UTD: No Context: accidental Associated symptoms: none Related Data Home Medications Medication Instructions Recorded Confirmed cenobamate 250 mg/day (200 mg x 1 12.5 mg PO DAILY Seizures 03/06/21 02/07/22 and 50 mg x 1) tablets melatonin 3 mg tablet 3 mg PO HS sleep aid 06/01/21 02/07/22 Previous Rx's Medication Instructions Recorded fluticasone propionate 50 2 spray intranasal DAILY allergies 09/18/21 mcg/actuation nasal #16 grams spray,suspension albuterol sulfate 90 mcg/actuation 2 inh inhalation Q4-6H PRN 10/01/21 aerosol inhaler Shortness Of Breath Or Wheezing #8.5 grams esomep
--- NOTE | 2022-02-25 21:34 | PC.NURSE ---
keflex 500 PO and tetanus ordered by dr fraser verbal, verified
[2022-02-25 21:44] VITALS: BP 138/68; PULSE 78; RESP 18; TEMP 36.6; O2SAT 99
== END 2022-02-25 21:55 | disposition home or self-care (01) ==
PROVIDERS: Emergency Provider Emergency Medicine; PCP Family Medicine
DX: S01.312A Laceration without foreign body of left ear, initial encounter (principal); R06.02 Shortness of breath; I10 Essential (primary) hypertension; K21.9 Gastro-esophageal reflux disease without esophagitis; E78.5 Hyperlipidemia, unspecified; B19.10 Unspecified viral hepatitis B without hepatic coma; G40.909 Epilepsy, unspecified, not intractable, without status epilepticus; G43.909 Migraine, unspecified, not intractable, without status migrainosus; J44.9 Chronic obstructive pulmonary disease, unspecified; F20.9 Schizophrenia, unspecified; F32.A Depression, unspecified; F41.9 Anxiety disorder, unspecified; F17.210 Nicotine dependence, cigarettes, uncomplicated; Z79.51 Long term (current) use of inhaled steroids; Z79.52 Long term (current) use of systemic steroids; Z79.899 Other long term (current) drug therapy; Z88.8 Allergy status to other drugs, medicaments and biological substances; W23.1XXA Caught, crushed, jammed, or pinched between stationary objects, initial encounter
CPT/HCPCS: 12011; G0168; 90471; 90714; 99284

== ENCOUNTER → 2022-03-12 15:00 | Outpatient (CLI) | payer MEDICARE, MEDICAID, SELFPAY ==
[2022-03-12 18:47] LABS: Alanine Aminotransferase 23 U/L (12-78); Albumin Level 4.7 g/dl (3.5-5.0); Albumin/Globulin Ratio 1.7 (1.1-1.8); Alkaline Phosphatase 98 U/L (38-126); Anion Gap 21.3 mEq/L (5-15); Aspartate Amino Transferase 33 U/L (17-59); Bilirubin,Total 0.4 mg/dl (0.2-1.3); Blood Urea Nitrogen 16 mg/dl (9-20); Calcium 9.8 mg/dl (8.4-10.2); Carbon Dioxide 23 mmol/L (22.0-30.0); Chloride 100 mmol/L (98-107); Chol/HDL Ratio 3.7 (1-3.5); Cholesterol 146 mg/dl (140-200); Estimated Glomerular Filt Rate 71 ml/min (>60); GFR (African American) 86 ML/MIN (>60); Globulin 2.8 g/dL (1.3-3.2); Glucose 110 mg/dl (74-100); HDL Cholesterol 39 mg/dl (40-60); Potassium 4.3 mmoL/L (3.5-5.1); Sodium 140 mmol/L (136-145); Total Protein,Serum 7.5 g/dl (6.3-8.2); Triglycerides 280 mg/dl (30-150); VLDL Cholesterol 56 mg/dL (0-40)
[2022-03-12 18:49] LABS: Basophils # 0.2 K/mm3 (0-0.2); Basophils % 1.9 % (0.1-2.0); Eosinophils # 0.6 K/mm3 (0.0-0.4); Eosinophils % 7.3 % (0.1-12.0); Hematocrit 53.9 % (42.0-52.0); Hemoglobin 17.3 g/dL (14.1-18.0); Lymphocytes # 2.6 K/mm3 (0.7-4.5); Lymphocytes % 33.5 % (10-50); Mean Corpuscular HGB Conc 32.2 g/dL (31.8-35.4); Mean Corpuscular Volume 102.7 fl (80-94); Mean Platelet Volume 9.6 fl (7.4-10.4); Monocytes # 0.5 K/mm3 (0.1-1.0); Monocytes % 6.7 % (1.7-9.3); Neutrophils % 50.6 % (37.0-80.0); Platelet Count 247 K/mm3 (142-424); Red Blood Count 5.25 M/mm3 (4.60-6.20); Red Cell Distribution Width 13.2 % (11.5-17.5); White Blood Count 7.8 K/mm3 (4.8-10.8)
[2022-03-12 18:58] LABS: Direct LDL Cholesterol 64.29 mg/dL (100-129)
[2022-03-12 19:03] LABS: Free T4 (Free Thyroxine) 0.86 ng/dl (0.78-2.19)
[2022-03-12 19:04] LABS: 25-OH Vitamin D, Total 52.5 ng/mL (30-100)
[2022-03-12 19:18] LABS: Thyroid Stimulating Hormone 1.68 uIU/mL (0.465-4.68)
== END ==
PROVIDERS: PCP Emergency Medicine; Visit Provider Emergency Medicine
DX: R11.10 Vomiting, unspecified (principal); R45.0 Nervousness; G89.29 Other chronic pain; R07.9 Chest pain, unspecified; E55.9 Vitamin D deficiency, unspecified
CPT/HCPCS: 80053; 80061; 82306; 84439; 84443; 85025

== ENCOUNTER 2022-03-28 08:39 | Emergency (ER) | payer MEDICARE, MEDICAID, SELFPAY ==
[2022-03-28 08:45] VITALS: BP 156/86; PULSE 94; RESP 18; TEMP 37; O2SAT 96; BMI 24.3
[2022-03-28 08:49] VITALS: BMI 24.3
--- NOTE | 2022-03-28 08:55 | PC.NURSE ---
Swab sent to lab.
[2022-03-28 09:01] VITALS: BP 160/101; PULSE 68; RESP 20; O2SAT 95
--- NOTE | 2022-03-28 09:11 | HMH.EDGENADL ---
Discharge Plan Disposition Patient Disposition: Home, Self-Care Condition: Good Prescriptions Prescriptions: New oseltamivir [Tamiflu] 75 mg capsule 75 mg PO BID Qty: 10 0RF No Action albuterol sulfate 90 mcg/actuation HFA aerosol inhaler 2 inh IH Q4-6H PRN (Reason: Shortness Of Breath Or Wheezing) Qty: 8.5 10RF fluticasone furoate-vilanterol 200-25 mcg/dose blister with device 1 inh INHALATION DAILY Qty: 28 10RF phenytoin sodium extended 100 mg capsule See Rx Instructions .ROUTE .COMPLEX Qty: 150 10RF Rx Instructions: two pills in the morning, three pills in the evening fluticasone propionate [Flonase Allergy Relief] 50 mcg/actuation spray,suspension 1 spray intranasal Q12H Qty: 16 10RF Rx Instructions: administer into each nostril fluticasone propionate 50 mcg/actuation spray,suspension 2 spray INTRANASAL DAILY Qty: 16 2RF Rx Instructions: administer into each nostril ipratropium-albuterol 0.5 mg-3 mg(2.5 mg base)/3 mL solution for nebulization 3 ml IH Q8H PRN (Reason: shortness of breath or wheezing) Qty: 180 10RF atorvastatin 40 mg tablet 40 mg PO DAILY Qty: 90 3RF Rx Instructions: TAKE ONE TABLET BY MOUTH EVERY DAY esomeprazole magnesium 40 mg capsule,delayed release(DR/EC) See Rx Instructions .ROUTE .COMPLEX Qty: 90 4RF Dose Instruction: TAKE ONE CAPSULE BY MOUTH EVERY DAY FOR gerd Rx Instructions: TAKE ONE CAPSULE BY MOUTH EVERY DAY FOR gerd buspirone 15 mg tablet 15 mg PO QID PRN (Reason: anxiety) Qty: 120 2RF melatonin 3 MG tablet 3 mg PO HS Rx Instructions: Take 1 tab at bedtime as needed for sleep. cephalexin [cephalexin] 500 mg capsule 500 mg PO TID Qty: 30 0RF Referrals Follow up/Referrals: Erik Mart MD [Primary Care Provider] - See instructions Activity Restrictions/Add. Instructions Additional Instructions/Restrictions: Tamiflu as prescribed. ADDITIONAL INSTRUCTIONS FOR INFLUENZA (FLU): Rest, drink plenty of fluids. Tylenol or Ibuprofen for fever and/or aches and pains. Monitor your symptoms. IF YOU HAVE AN EMERGENCY WARNING SIGN (INCLUDING TROUBLE BREATHING), SEEK EMERGENCY MEDICAL CARE IMMEDIATELY. Influenza Isolation: People with influenza should isolate for 5 days starting at the onset of symptoms. Then if they are asymptomatic (no symptoms) or their symptoms are resolving (without fever for 24 hours), you may end isolation. What to do: Stay in a separate room from other household members, if possible. Use a separate bathroom, if possible. Avoid contact with other members of the household and pets. Don?t share personal household items, like cups, towels, and utensils. Wear a mask when around other people if able. Clinical Impressions Clinical Impression: Influenza A Instructions Patient Instructions: DI for Influenza -- Adult Discharge ED Provider: Jaime Sherwood General Adult HPI General Chief complaint: Upper Respiratory Infection Stated complaint: weakness Time Seen by Provider: 03/28/22 09:01 Mode of Arrival: EMS Source of Information: Patient Limitations: No Limitations Description of Symptoms (Recalled from ER Triage Doc. by RN): Patient brought in by EMS with complaints of weakness, body aches, cough x3 days. History of Present Illness HPI narrative: Patient is brought in by ambulance. He states he has been sick for 3 days. He has a cough producing clear to white sputum. Generalized weakness and fatigue. Hurts all over his whole body. Rhinorrhea. Sore throat. Feels feverish, but has not taken his temperature. No vomiting or diarrhea. No definite known exposures. Related Data Home Medications Medication Instructions Recorded Confirmed melatonin 3 mg tablet 3 mg PO HS sleep aid 06/01/21 03/12/22 Previous Rx's Medication Instructions Recorded fluticasone propionate 50 2 spray intranasal DAILY allergies 09/18/21 mcg/actuati
[2022-03-28 09:12] LABS: Coronavirus 19, PCR Not Detected (NotDetected); Influenza B, PCR Not Detected (NotDetected)
[2022-03-28 09:30] VITALS: BP 134/86; PULSE 86; RESP 18; O2SAT 96
[2022-03-28 10:18] LABS: Influenza A, PCR Detected (NotDetected)
[2022-03-28 10:38] VITALS: BP 134/86; PULSE 80; RESP 18; TEMP 37; O2SAT 96
== END 2022-03-28 10:42 | disposition home or self-care (01) ==
PROVIDERS: Emergency Provider Emergency Medicine; PCP Family Medicine
DX: J10.1 Influenza due to other identified influenza virus with other respiratory manifestations (principal)
CPT/HCPCS: 99283; C9803; U0003; U0005

== ENCOUNTER 2022-06-13 12:01 | Emergency (ER) | payer MEDICARE, MEDICAID, SELFPAY ==
[2022-06-13] VITALS (8 sets, daily range): BP systolic 116–131; BP diastolic 69–93; PULSE 63–91; RESP 17–18; TEMP 36.7–36.9; O2SAT 97–99; BMI 25.0
--- NOTE | 2022-06-13 12:26 | PC.NURSE ---
PEARL SUMMERS at
--- NOTE | 2022-06-13 12:28 | XR_ITS ---
FINAL REPORT CLINICAL HISTORY: pain FINDINGS: Two views were obtained. The epiglottis is normal. The precervical soft tissues are normal. No foreign body is identified. There is right carotid calcification. There is multilevel degenerative disease of the spine. IMPRESSION: No acute findings. Reviewed, Interpreted and Dictated by Yumiko Galloway MD Transcribed by Mishel Lutz Authenticated and [facility]
--- NOTE | 2022-06-13 12:29 | HMH.EDGENADL ---
Discharge Plan Disposition Patient Disposition: Home, Self-Care Condition: Good Chief Complaint: Neck Pain/Injury Prescriptions Prescriptions: No Action albuterol sulfate 90 mcg/actuation HFA aerosol inhaler 2 inh IH Q4-6H PRN (Reason: Shortness Of Breath Or Wheezing) Qty: 8.5 10RF fluticasone furoate-vilanterol 200-25 mcg/dose blister with device 1 inh INHALATION DAILY Qty: 28 10RF phenytoin sodium extended 100 mg capsule See Rx Instructions .ROUTE .COMPLEX Qty: 150 10RF Rx Instructions: two pills in the morning, three pills in the evening fluticasone propionate [Flonase Allergy Relief] 50 mcg/actuation spray,suspension 1 spray intranasal Q12H Qty: 16 10RF Rx Instructions: administer into each nostril fluticasone propionate 50 mcg/actuation spray,suspension 2 spray INTRANASAL DAILY Qty: 16 2RF Rx Instructions: administer into each nostril ipratropium-albuterol 0.5 mg-3 mg(2.5 mg base)/3 mL solution for nebulization 3 ml IH Q8H PRN (Reason: shortness of breath or wheezing) Qty: 180 10RF atorvastatin 40 mg tablet 40 mg PO DAILY Qty: 90 3RF Rx Instructions: TAKE ONE TABLET BY MOUTH EVERY DAY esomeprazole magnesium 40 mg capsule,delayed release(DR/EC) See Rx Instructions .ROUTE .COMPLEX Qty: 90 4RF Dose Instruction: TAKE ONE CAPSULE BY MOUTH EVERY DAY FOR gerd Rx Instructions: TAKE ONE CAPSULE BY MOUTH EVERY DAY FOR gerd buspirone 15 mg tablet 15 mg PO QID PRN (Reason: anxiety) Qty: 120 2RF benzonatate 200 mg capsule 200 mg PO BID PRN (Reason: cough) Qty: 30 0RF melatonin 3 MG tablet 3 mg PO HS Rx Instructions: Take 1 tab at bedtime as needed for sleep. Referrals Follow up/Referrals: Erik Mart MD [Primary Care Provider] - See instructions Activity Restrictions/Add. Instructions Additional Instructions/Restrictions: You have been evaluated for neck pain, sore throat. Please continue taking antibiotics as prescribed by your primary care doctor. You received a dose of steroids today, they should be effective for 24 to 48 hours. Monitor your symptoms closely. You may need to see an electronics research engineer, if you do not feel better in 2 to 3 days return to the emergency department at once for any new or worsening symptoms, difficulty swallowing or other concerns. Clinical Impressions Clinical Impression: Pharyngitis Instructions Patient Instructions: DI for Pharyngitis/Tonsillopharyngitis -- Adult Discharge ED Provider: Delphine Cole Adult HPI General Chief complaint: Neck Pain/Injury Stated complaint: Neck soreness Time Seen by Provider: 06/13/22 12:24 Mode of Arrival: Ambulatory Source of Information: Patient Limitations: No Limitations Description of Symptoms (Recalled from ER Triage Doc. by RN): 52 M presents after waking up this morning with bilateral, L/R neck pain. He reports his veins are hurting in his neck. Denies injury, chest pain, or SOA. History of Present Illness HPI narrative: 52-year-old male presenting to the emergency department with sore throat, neck pain. Symptoms started this morning. When he woke up, had a sore feeling on the front of his neck, throat, right side. Described as aching. He has pain with swallowing. Located on both sides of the throat. He was treated for conjunctivitis yesterday by his eye doctor. Started on eyedrops and oral antibiotics. No other medications prior to arrival. No numbness, weakness, tingling in his arms or legs. He does not have teeth. Denies any lesions or abnormality inside of his mouth. No pain in the back of his neck. Related Data Home Medications Medication Instructions Recorded Confirmed melatonin 3 mg tablet 3 mg PO HS sleep aid 06/01/21 05/07/22 Previous Rx's Medication Instructions Recorded fluticasone propionate 50 2 spray intranasal DAILY allergies 09/18/21 mcg/actuation nasal #16 grams spray,suspension
--- NOTE | 2022-06-13 12:55 | PC.NURSE ---
SWABS SENT TO LAB
[2022-06-13 12:58] LABS: Basophils # 0.1 K/mm3 (0-0.2); Basophils % 1.5 % (0.1-2.0); Eosinophils # 0.6 K/mm3 (0.0-0.4); Eosinophils % 9.6 % (0.1-12.0); Hematocrit 46.3 % (42.0-52.0); Hemoglobin 15.8 g/dL (14.1-18.0); Lymphocytes # 1.9 K/mm3 (0.7-4.5); Lymphocytes % 31.8 % (10-50); Mean Corpuscular Hemoglobin 33.3 pg (27.0-31.2); Mean Corpuscular Volume 97.7 fl (80-94); Mean Platelet Volume 8.1 fl (7.4-10.4); Monocytes # 0.4 K/mm3 (0.1-1.0); Monocytes % 6.4 % (1.7-9.3); Neutrophils # 3.1 K/mm3 (1.8-7.8); Neutrophils % 50.7 % (37.0-80.0); Platelet Count 223 K/mm3 (142-424); Red Blood Count 4.74 M/mm3 (4.60-6.20); Red Cell Distribution Width 13.1 % (11.5-17.5); White Blood Count 6.1 K/mm3 (4.8-10.8)
[2022-06-13 13:17] LABS: Strep Scrn Group A (Rapid) Negative (Negative)
[2022-06-13 13:20] LABS: Chloride 107 mmol/L (98-107); Potassium 3.8 mmoL/L (3.5-5.1); Sodium 138 mmol/L (136-145)
[2022-06-13 13:23] LABS: Alanine Aminotransferase 23 U/L (12-78); Albumin Level 4.3 g/dl (3.5-5.0); Albumin/Globulin Ratio 1.5 (1.1-1.8); Alkaline Phosphatase 70 U/L (38-126); Anion Gap 10.8 mEq/L (5-15); Aspartate Amino Transferase 30 U/L (17-59); Bilirubin,Total 0.5 mg/dl (0.2-1.3); Blood Urea Nitrogen 18 mg/dl (9-20); Carbon Dioxide 24 mmol/L (22.0-30.0); Creatinine Clearance Estimated 94 mL/min (50-200); Estimated Glomerular Filt Rate 79 ml/min (>60); GFR (African American) 96 ML/MIN (>60); Globulin 2.8 g/dL (1.3-3.2); Total Protein,Serum 7.1 g/dl (6.3-8.2)
[2022-06-13 13:24] LABS: Calcium 8.4 mg/dl (8.4-10.2); Glucose 142 mg/dl (74-100)
--- NOTE | 2022-06-13 14:06 | PC.NURSE ---
rounded on pt he just asked if i had any ideal how much longer he might be so i told NATI jhaveri his question and she said she will start working on trying to get him out of here as soon as xray results come back. dr feliciano is at bedside updating pt about we are waiting on his xray results then we can go from there
--- NOTE | 2022-06-13 14:57 | PC.NURSE ---
contacted [facility] to check on status of pt xray results, sylvia states staff is checking into it and will call us back
--- NOTE | 2022-06-13 15:32 | PC.NURSE ---
contacted rad to check on status of xray results, spoke with denice who states scan is in a locked status
--- NOTE | 2022-06-13 15:34 | PC.NURSE ---
keely naik stated she checked with [facility] and they state they are reading pt xray now updated pt and ER pt states no needs at this time
== END 2022-06-13 16:01 | disposition home or self-care (01) ==
PROVIDERS: Emergency Provider Emergency Medicine; PCP Family Medicine
DX: J02.9 Acute pharyngitis, unspecified (principal); M54.2 Cervicalgia; F41.8 Other specified anxiety disorders; J45.909 Unspecified asthma, uncomplicated; J44.9 Chronic obstructive pulmonary disease, unspecified; K21.9 Gastro-esophageal reflux disease without esophagitis; E78.5 Hyperlipidemia, unspecified; I10 Essential (primary) hypertension; B18.1 Chronic viral hepatitis B without delta-agent; G43.909 Migraine, unspecified, not intractable, without status migrainosus; G40.909 Epilepsy, unspecified, not intractable, without status epilepticus; J33.0 Polyp of nasal cavity; F20.9 Schizophrenia, unspecified; F17.210 Nicotine dependence, cigarettes, uncomplicated; Z98.52 Vasectomy status; Z90.49 Acquired absence of other specified parts of digestive tract; Z80.9 Family history of malignant neoplasm, unspecified; Z20.822 Contact with and (suspected) exposure to COVID-19
CPT/HCPCS: 70360; 80053; 85025; 87430; 99285; C9803; U0003; U0005

== ENCOUNTER → 2022-06-17 09:24 | Outpatient (POV) | payer MEDICARE, MEDICAID, SELFPAY | PROVIDERS: Visit Provider Specialist/Technologist | DX: Z00.00 Encounter for general adult medical examination without abnormal findings (principal) ==

== ENCOUNTER → 2022-07-19 10:43 | Outpatient (CLI) | payer MEDICARE, MEDICAID, SELFPAY ==
[2022-07-19 18:46] LABS: Basophils # 0.1 K/mm3 (0-0.2); Basophils % 1.1 % (0.1-2.0); Eosinophils # 0.7 K/mm3 (0.0-0.4); Eosinophils % 9.4 % (0.1-12.0); Hematocrit 48.4 % (42.0-52.0); Hemoglobin 16.1 g/dL (14.1-18.0); Lymphocytes # 3.1 K/mm3 (0.7-4.5); Lymphocytes % 44.1 % (10-50); Mean Corpuscular HGB Conc 33.2 g/dL (31.8-35.4); Mean Corpuscular Volume 99.5 fl (80-94); Monocytes # 0.6 K/mm3 (0.1-1.0); Monocytes % 8.2 % (1.7-9.3); Neutrophils # 2.6 K/mm3 (1.8-7.8); Neutrophils % 37.2 % (37.0-80.0); Platelet Count 229 K/mm3 (142-424); Red Blood Count 4.87 M/mm3 (4.60-6.20); Red Cell Distribution Width 13.4 % (11.5-17.5)
[2022-07-19 19:03] LABS: Alanine Aminotransferase 19 U/L (12-78); Albumin Level 4.4 g/dl (3.5-5.0); Albumin/Globulin Ratio 1.8 (1.1-1.8); Alkaline Phosphatase 70 U/L (38-126); Anion Gap 9.8 mEq/L (5-15); Aspartate Amino Transferase 26 U/L (17-59); Bilirubin,Total 0.6 mg/dl (0.2-1.3); Blood Urea Nitrogen 10 mg/dl (9-20); Calcium 8.7 mg/dl (8.4-10.2); Carbon Dioxide 24 mmol/L (22.0-30.0); Chloride 104 mmol/L (98-107); Chol/HDL Ratio 2.4 (1-3.5); Cholesterol 94 mg/dl (140-200); Estimated Glomerular Filt Rate 79 ml/min (>60); GFR (African American) 96 ML/MIN (>60); Globulin 2.4 g/dL (1.3-3.2); Glucose 87 mg/dl (74-100); HDL Cholesterol 39 mg/dl (40-60); Potassium 3.8 mmoL/L (3.5-5.1); Sodium 134 mmol/L (136-145); Total Protein,Serum 6.8 g/dl (6.3-8.2); Triglycerides 165 mg/dl (30-150); VLDL Cholesterol 33 mg/dL (0-40)
[2022-07-19 19:11] LABS: Direct LDL Cholesterol 37.96 mg/dL (100-129)
[2022-07-19 19:30] LABS: Prostate Specific Ag Screen 0.8 ng/ml (0.0-4.0)
[2022-07-19 20:28] LABS: Phenytoin (Dilantin) < 3.0 ug/ml (10-20)
== END ==
PROVIDERS: PCP Family Medicine; Visit Provider Family Medicine
DX: E78.5 Hyperlipidemia, unspecified (principal); G89.29 Other chronic pain; R07.9 Chest pain, unspecified; K21.9 Gastro-esophageal reflux disease without esophagitis; Z12.5 Encounter for screening for malignant neoplasm of prostate
CPT/HCPCS: 80053; 80061; 80185; 85025; G0103

== ENCOUNTER → 2022-07-31 13:02 | Outpatient (POV) | payer MEDICARE, MEDICAID, SELFPAY | PROVIDERS: Visit Provider Specialist/Technologist | DX: Z00.00 Encounter for general adult medical examination without abnormal findings (principal) ==

== ENCOUNTER 2022-08-07 15:42 | Emergency (ER) | payer MEDICARE, MEDICAID, SELFPAY ==
[2022-08-07] VITALS (8 sets, daily range): BP systolic 115–152; BP diastolic 59–99; PULSE 45–89; RESP 17–20; TEMP 36.9–37; O2SAT 97–98; BMI 25.2
--- NOTE | 2022-08-07 16:14 | XR_ITS ---
PROCEDURE INFORMATION: Exam: XR Right Knee Exam date and time: 08/07/2022 5:12 PM Age: 52 years old Clinical indication: Pain; Patient HX: Bumped his right knee on a bed rail 3 days ago. Ambulatory with no difficulty. ; Additional info: Trauma TECHNIQUE: Imaging protocol: Radiologic exam of the right knee. Views: 1 or 2 views. COMPARISON: CR XR ANKLE RT MIN 3V 04/17/2020 12:49 PM FINDINGS: Bones/joints: Limited exam shows no definite fracture or dislocation. Lateral view is slightly rotated. Mild chronic appearing cortical-periosteal thickening of the proximal-lateral tibial diametaphysis is probably chronic stress reaction along the interosseous ligament, or could be old healed trauma.There are no lytic skeletal lesions seen. Knee joint space is well preserved. No significant arthritic deformities. No significant knee joint effusion, as visualized. Soft tissues: No radiopaque foreign bodies. No pathologic soft tissue calcification. IMPRESSION: No acute fracture or dislocation.
--- NOTE | 2022-08-07 16:14 | CT_ITS ---
PROCEDURE INFORMATION: Exam: CT Abdomen And Pelvis Without Contrast Exam date and time: 08/07/2022 4:46 PM Age: 52 years old Clinical indication: Abdominal pain; Localized; Right lower quadrant (rlq); Additional info: Right lower quadrant pain TECHNIQUE: Imaging protocol: Computed tomography of the abdomen and pelvis without contrast. Radiation optimization: All CT scans at this facility use at least one of these dose optimization techniques: automated exposure control; mA and/or kV adjustment per patient size (includes targeted exams where dose is matched to clinical indication); or iterative reconstruction. REPORTING DATA: Count of CT and Cardiac NM exams in prior 12 months: This patient has received 0 known CTs and 0 known cardiac nuclear medicine studies in the 12 months prior to the current study. COMPARISON: CT ABDOMEN PELVIS W CON 09/13/2019 9:27 PM FINDINGS: Lungs: No acute findings in the visualized lower lungs. No consolidation. Heart: The heart is not enlarged. Liver: The liver is normal. Gallbladder and bile ducts: Partially contracted gallbladder. No acute findings. No calcified stones. No biliary dilatation. Pancreas: The pancreas is normal. Spleen: No splenomegaly. Multiple calcified granulomas. Adrenal glands: The adrenal glands are normal. Kidneys and ureters: Possible 8 mm right posterolateral renal cortical cystic lesion of HU density 11, too small to accurately characterize coronal series 1001, image 45 and axial series 3, image 52. Slightly hyperdense renal papillae more prominent on the left, e.g. see left upper pole coronal series 1001, image 45, but no discrete calcified stones are seen. No hydronephrosis, hydroureter, or obstructing calcified ureteral stones. Stomach and bowel: The stomach is mildly distended with fluid and food. No acute gastric findings.There is no evidence of intestinal perforation or obstruction. No dilated loops or mucosal thickening. Appendix: There is dense material in the appendix (and seen in the distal colon), but no well-defined, discrete appendicolith. No findings of appendicitis. Intraperitoneal space: There is no free intraperitoneal air. There is no significant free intraperitoneal fluid. Vasculature: There is no aortic aneurysm. Minimal scattered calcified atherosclerotic plaques in the abdomen and pelvis. Lymph nodes: No significantly enlarged intra-abdominal or intra-pelvic lymph nodes by short axis criteria. A few mildly prominent bilateral inguinal nodes are a common finding, with benign-appearing fatty shabnam, likely reactive. No necrotic or suppurative appearing inguinal adenopathy. Urinary bladder: The bladder is normal. Reproductive: The prostate and seminal vesicles are normal. Vasectomy clips noted bilaterally. Bones/joints: There are spinal degenerative changes, with multilevel disc narrrowing and spondylosis. There is no evidence of acute fracture. Soft tissues: There are no soft tissue masses or fluid collections. IMPRESSION: 1. No acute findings. 2. No findings of appendicitis. 3. Partially contracted gallbladder; no calcified stones. 4. No hydronephrosis, hydroureter, or obstructing calcified ureteral stones. 5. Additional nonemergency and chronic findings as above. COMMENTS: Consistent with the [employer]'s Incidental Findings Committee white paper (J Am Vickie Radiol 2018): Any incidental renal lesion less than 1 cm or classified as too small to characterize, or any incidental cystic renal lesion characterized as simple-appearing, is likely benign. No follow-up imaging is recommended for these lesions per consensus recommendations
--- NOTE | 2022-08-07 16:15 | HMH.EDGENADL ---
Discharge Plan Disposition Patient Disposition: Home, Self-Care Chief Complaint: Extremity Injury, Lower Prescriptions Prescriptions: No Action albuterol sulfate 90 mcg/actuation HFA aerosol inhaler 2 inh IH Q4-6H PRN (Reason: Shortness Of Breath Or Wheezing) Qty: 8.5 10RF fluticasone furoate-vilanterol 200-25 mcg/dose blister with device 1 inh INHALATION DAILY Qty: 28 10RF phenytoin sodium extended 100 mg capsule See Rx Instructions .ROUTE .COMPLEX Qty: 150 10RF Rx Instructions: two pills in the morning, three pills in the evening fluticasone propionate [Flonase Allergy Relief] 50 mcg/actuation spray,suspension 1 spray intranasal Q12H Qty: 16 10RF Rx Instructions: administer into each nostril oxycodone-acetaminophen 10-325 mg tablet 1 tab PO TID ciprofloxacin HCl [Cipro] 500 mg tablet 500 mg PO BID Qty: 14 0RF naproxen [Naprosyn] 500 mg tablet 500 mg PO BID Qty: 30 2RF fluticasone propionate 50 mcg/actuation spray,suspension 2 spray INTRANASAL DAILY Qty: 16 2RF Rx Instructions: administer into each nostril hydroxyzine HCl 50 mg tablet 50 mg PO BID PRN (Reason: anxiety) Qty: 60 5RF Rx Instructions: okay to take along with buspar if necessary buspirone 15 mg tablet 15 mg PO QID PRN (Reason: anxiety) Qty: 120 5RF ipratropium-albuterol 0.5 mg-3 mg(2.5 mg base)/3 mL solution for nebulization 3 ml IH Q8H PRN (Reason: shortness of breath or wheezing) Qty: 180 10RF atorvastatin 40 mg tablet 40 mg PO DAILY Qty: 90 3RF Rx Instructions: TAKE ONE TABLET BY MOUTH EVERY DAY esomeprazole magnesium 40 mg capsule,delayed release(DR/EC) See Rx Instructions .ROUTE .COMPLEX Qty: 90 4RF Dose Instruction: TAKE ONE CAPSULE BY MOUTH EVERY DAY FOR gerd Rx Instructions: TAKE ONE CAPSULE BY MOUTH EVERY DAY FOR gerd melatonin 3 MG tablet 3 mg PO HS Rx Instructions: Take 1 tab at bedtime as needed for sleep. Referrals Follow up/Referrals: Erik Mart MD [Primary Care Provider] - See instructions Clinical Impressions Clinical Impression: Abdominal pain Discharge ED Provider: Robbie Hathaway General Adult HPI General Chief complaint: Extremity Injury, Lower Stated complaint: Weakness, body aches Time Seen by Provider: 08/07/22 16:06 Mode of Arrival: Ambulatory Source of Information: Patient Limitations: No Limitations Description of Symptoms (Recalled from ER Triage Doc. by RN): pt to ED with multiple complaints today. pt originally reports pain to his right knee after hitting it on a box spring. pt then reports he was at the laundry mat and felt suddenly drowsy and weaker. pt reports being prescribed two new nerve pills this week that he took today before leaving the house. pt denies any dizziness or SOB History of Present Illness HPI narrative: 52-year-old white male presents with basically 2 complaints #1 he hit his knee on a bed rail and thinks he is chipped his patella. #2 he has had right lower quadrant pain for about 4 days and this morning is developed some nausea and vomiting cannot keep anything down he Complains of weakness and dizziness and drowsiness he lists Xanax and Prozac as medical allergies Related Data Home Medications Medication Instructions Recorded Confirmed melatonin 3 mg tablet 3 mg PO HS sleep aid 06/01/21 08/01/22 oxycodone-acetaminophen 10 mg-325 1 tab PO TID 08/01/22 08/01/22 mg tablet Previous Rx's Medication Instructions Recorded fluticasone propionate 50 2 spray intranasal DAILY allergies 09/18/21 mcg/actuation nasal #16 grams spray,suspension albuterol sulfate 90 mcg/actuation 2 inh inhalation Q4-6H PRN 10/01/21 aerosol inhaler Shortness Of Breath Or Wheezing #8.5 grams fluticasone furoate 200 1 inh inhalation DAILY Asthma #28 10/01/21 mcg-vilanterol 25 mcg/dose ea inhalation powder phenytoin sodium extended 100 mg See Rx Instructions .Route 10/01/21
[2022-08-07 17:13] LABS: MANUAL DIFFERENTIAL MANUAL DIFFERENTIAL (MANUAL DIFF)
[2022-08-07 17:32] LABS: Chloride 103 mmol/L (98-107); Sodium 139 mmol/L (136-145)
[2022-08-07 17:35] LABS: Alanine Aminotransferase 21 U/L (12-78); Albumin Level 4.2 g/dl (3.5-5.0); Albumin/Globulin Ratio 1.6 (1.1-1.8); Alkaline Phosphatase 65 U/L (38-126); Aspartate Amino Transferase 27 U/L (17-59); Bilirubin,Total 0.3 mg/dl (0.2-1.3); Blood Urea Nitrogen 13 mg/dl (9-20); Calcium 8.7 mg/dl (8.4-10.2); Carbon Dioxide 30 mmol/L (22.0-30.0); Creatinine Clearance Estimated 86 mL/min (50-200); Estimated Glomerular Filt Rate 71 ml/min (>60); GFR (African American) 86 ML/MIN (>60); Globulin 2.6 g/dL (1.3-3.2); Glucose 84 mg/dl (74-100); Total Protein,Serum 6.8 g/dl (6.3-8.2)
[2022-08-07 18:31] LABS: Basophils # 0.1 K/mm3 (0-0.2); Basophils % 1.6 % (0.1-2.0); Eosinophils # 0.7 K/mm3 (0.0-0.4); Eosinophils % 10.5 % (0.1-12.0); Hematocrit 49.9 % (42.0-52.0); Hemoglobin 16.2 g/dL (14.1-18.0); Lymphocytes # 2.4 K/mm3 (0.7-4.5); Lymphocytes % 34.6 % (10-50); Mean Corpuscular HGB Conc 32.5 g/dL (31.8-35.4); Mean Corpuscular Hemoglobin 32.5 pg (27.0-31.2); Mean Corpuscular Volume 99.9 fl (80-94); Mean Platelet Volume 7.8 fl (7.4-10.4); Monocytes # 0.5 K/mm3 (0.1-1.0); Monocytes % 7.6 % (1.7-9.3); Neutrophils # 3.2 K/mm3 (1.8-7.8); Neutrophils % 45.7 % (37.0-80.0); Platelet Count 195 K/mm3 (142-424); Red Cell Distribution Width 13.5 % (11.5-17.5)
[2022-08-07 18:46] LABS: Anisocytosis 1+; Lymphocytes % 22 % (10-50); Microcytosis 1+; Monocytes % 12 % (2-9); Neutrophils % 66 % (42-76); Platelet Estimate Normal; Total Cells Counted 100
== END 2022-08-07 18:57 | disposition home or self-care (01) ==
PROVIDERS: Emergency Provider Emergency Medicine; PCP Family Medicine
DX: R53.1 Weakness (principal); R10.31 Right lower quadrant pain; M25.561 Pain in right knee; W22.09XA Striking against other stationary object, initial encounter
CPT/HCPCS: 73560; 74176; 80053; 85007; 85014; 85018; 85048; 85049; 99284; 99285

== ENCOUNTER → 2022-08-14 11:52 | Outpatient (POV) | payer MEDICARE, MEDICAID, SELFPAY | PROVIDERS: Visit Provider Specialist/Technologist | DX: Z00.00 Encounter for general adult medical examination without abnormal findings (principal) ==

== ENCOUNTER 2022-09-06 16:02 | Emergency (ER) | payer MEDICARE, MEDICAID, SELFPAY ==
[2022-09-06 16:06] VITALS: BP 156/94; PULSE 90; RESP 18; TEMP 36.6; O2SAT 98; BMI 25.2
--- NOTE | 2022-09-06 16:26 | HMH.EDGENADL ---
Discharge Plan Disposition Patient Disposition: Home, Self-Care Prescriptions Prescriptions: New prednisone 20 mg tablet 60 mg PO DAILY 7 Days Qty: 21 0RF amoxicillin-pot clavulanate 875-125 mg tablet 1 tab PO BID 10 Days Qty: 20 0RF pseudoephedrine HCl 120 mg tablet extended release 120 mg PO BID PRN (Reason: nasal congestion) 14 Days Qty: 28 0RF No Action albuterol sulfate 90 mcg/actuation HFA aerosol inhaler 2 inh IH Q4-6H PRN (Reason: Shortness Of Breath Or Wheezing) Qty: 8.5 10RF fluticasone furoate-vilanterol 200-25 mcg/dose blister with device 1 inh INHALATION DAILY Qty: 28 10RF phenytoin sodium extended 100 mg capsule See Rx Instructions .ROUTE .COMPLEX Qty: 150 10RF Rx Instructions: two pills in the morning, three pills in the evening fluticasone propionate [Flonase Allergy Relief] 50 mcg/actuation spray,suspension 1 spray intranasal Q12H Qty: 16 10RF Rx Instructions: administer into each nostril oxycodone-acetaminophen 10-325 mg tablet 1 tab PO TID ciprofloxacin HCl [Cipro] 500 mg tablet 500 mg PO BID Qty: 14 0RF naproxen [Naprosyn] 500 mg tablet 500 mg PO BID Qty: 30 2RF fluticasone propionate 50 mcg/actuation spray,suspension 2 spray INTRANASAL DAILY Qty: 16 2RF Rx Instructions: administer into each nostril hydroxyzine HCl 50 mg tablet 50 mg PO BID PRN (Reason: anxiety) Qty: 60 5RF Rx Instructions: okay to take along with buspar if necessary buspirone 15 mg tablet 15 mg PO QID PRN (Reason: anxiety) Qty: 120 5RF ipratropium-albuterol 0.5 mg-3 mg(2.5 mg base)/3 mL solution for nebulization 3 ml IH Q8H PRN (Reason: shortness of breath or wheezing) Qty: 180 10RF atorvastatin 40 mg tablet 40 mg PO DAILY Qty: 90 3RF Rx Instructions: TAKE ONE TABLET BY MOUTH EVERY DAY esomeprazole magnesium 40 mg capsule,delayed release(DR/EC) See Rx Instructions .ROUTE .COMPLEX Qty: 90 4RF Dose Instruction: TAKE ONE CAPSULE BY MOUTH EVERY DAY FOR gerd Rx Instructions: TAKE ONE CAPSULE BY MOUTH EVERY DAY FOR gerd melatonin 3 MG tablet 3 mg PO HS Rx Instructions: Take 1 tab at bedtime as needed for sleep. Referrals Follow up/Referrals: Jeremy Louis MD [Physician] - See instructions Erik Mart MD [Primary Care Provider] - See instructions Activity Restrictions/Add. Instructions Additional Instructions/Restrictions: Please follow-up with the ENT doctor as needed in 1 to 2 weeks. Clinical Impressions Clinical Impression: Acute bacterial sinusitis Discharge ED Provider: Kyalin Chen General Adult HPI General Chief complaint: Upper Respiratory Infection Stated complaint: cAN'T BREATH ON R SIDE OF NOSE,CHO Time Seen by Provider: 09/06/22 16:26 Mode of Arrival: Ambulatory Source of Information: Patient Limitations: No Limitations Description of Symptoms (Recalled from ER Triage Doc. by RN): Presents to ED with complaints of right sided nasal congestion and frontal head pressure. Hx of nasal surgery approx. 5-6 years ago. Nasal congestion started 3 months ago. OTC Tylenol w/o relief History of Present Illness HPI narrative: Patient is a 52-year-old male presenting with several months of increased and worsening nasal discharge and congestion mainly on the right side of his nose also with some frontal sinus pressure as well as right maxillary pressure. No fevers or chills no severe headaches no neurologic symptoms associated with this has not taken any medicine [id number] for this. States that he did have nasal reconstructive surgery in the past because of a nasal fracture that he had and he would like to be followed up by an ENT doctor after today's visit. Related Data Home Medications Medication Instructions Recorded Confirmed melatonin 3 mg tablet 3 mg PO HS sleep aid 06/01/21 08/01/22 oxycodone-acetaminophen 10 mg-325 1 tab PO TID 08/01/22 08/01/22 mg tablet
--- NOTE | 2022-09-06 16:29 | PC.NURSE ---
ER AT BEDSIDE
[2022-09-06 16:52] VITALS: BP 156/94; PULSE 90; RESP 18; TEMP 36.6; O2SAT 98
== END 2022-09-06 16:44 | disposition home or self-care (01) ==
LOC: ER 16:55
PROVIDERS: Emergency Provider Student in an Organized Health Care Education/Training Program; PCP Family Medicine
DX: J06.9 Acute upper respiratory infection, unspecified (principal); J01.90 Acute sinusitis, unspecified; J44.9 Chronic obstructive pulmonary disease, unspecified; F17.210 Nicotine dependence, cigarettes, uncomplicated
CPT/HCPCS: 99283; 99284

== ENCOUNTER → 2022-09-27 11:59 | Outpatient (CLI) | payer MEDICARE, MEDICAID, SELFPAY ==
[2022-09-27 13:09] LABS: Basophils # 0.1 K/mm3 (0-0.2); Basophils % 1.5 % (0.1-2.0); Eosinophils # 0.4 K/mm3 (0.0-0.4); Eosinophils % 6.2 % (0.1-12.0); Hematocrit 54.2 % (42.0-52.0); Hemoglobin 17.3 g/dL (14.1-18.0); Lymphocytes # 2.6 K/mm3 (0.7-4.5); Lymphocytes % 39.2 % (10-50); Mean Corpuscular Hemoglobin 32.4 pg (27.0-31.2); Mean Platelet Volume 7.9 fl (7.4-10.4); Monocytes # 0.6 K/mm3 (0.1-1.0); Monocytes % 9.3 % (1.7-9.3); Neutrophils # 2.9 K/mm3 (1.8-7.8); Neutrophils % 43.8 % (37.0-80.0); Platelet Count 201 K/mm3 (142-424); Red Blood Count 5.36 M/mm3 (4.60-6.20); Red Cell Distribution Width 13.8 % (11.5-17.5); White Blood Count 6.6 K/mm3 (4.8-10.8)
[2022-09-27 13:30] LABS: Chloride 100 mmol/L (98-107); Sodium 138 mmol/L (136-145)
[2022-09-27 13:31] LABS: Potassium 4.6 mmoL/L (3.5-5.1)
[2022-09-27 13:33] LABS: Alanine Aminotransferase 31 U/L (12-78); Alkaline Phosphatase 74 U/L (38-126); Anion Gap 14.6 mEq/L (5-15); Aspartate Amino Transferase 33 U/L (17-59); Bilirubin,Total 0.5 mg/dl (0.2-1.3); Blood Urea Nitrogen 18 mg/dl (9-20); Carbon Dioxide 28 mmol/L (22.0-30.0); Cholesterol 139 mg/dl (140-200); Estimated Glomerular Filt Rate 71 ml/min (>60); GFR (African American) 86 ML/MIN (>60); Triglycerides 392 mg/dl (30-150); VLDL Cholesterol 78 mg/dL (0-40)
[2022-09-27 13:34] LABS: Albumin Level 4.4 g/dl (3.5-5.0); Albumin/Globulin Ratio 1.6 (1.1-1.8); Calcium 8.9 mg/dl (8.4-10.2); Chol/HDL Ratio 3.3 (1-3.5); Globulin 2.7 g/dL (1.3-3.2); Glucose 126 mg/dl (74-100); HDL Cholesterol 42 mg/dl (40-60); Total Protein,Serum 7.1 g/dl (6.3-8.2)
[2022-09-27 13:45] LABS: Direct LDL Cholesterol 48.23 mg/dL (100-129)
[2022-09-27 13:51] LABS: Free T4 (Free Thyroxine) 0.74 ng/dl (0.78-2.19)
[2022-09-27 14:05] LABS: Thyroid Stimulating Hormone 0.82 uIU/mL (0.465-4.68)
== END ==
PROVIDERS: PCP Family Medicine; Visit Provider Family Medicine
DX: R53.83 Other fatigue (principal); K59.00 Constipation, unspecified; E03.9 Hypothyroidism, unspecified; E55.9 Vitamin D deficiency, unspecified
CPT/HCPCS: 36415; 80053; 80061; 84439; 84443; 85025

== ENCOUNTER → 2022-10-11 09:08 | Outpatient (CLI) | payer MEDICARE, MEDICAID, SELFPAY ==
[2022-10-11 20:28] LABS: Vitamin B12 940 pg/mL (239-931)
[2022-10-18 14:28] LABS: Free Testosterone (Direct) 4.5 pg/mL (7.2-24.0); Testosterone, Total, LC/MS 349.7 ng/dL (264.0-916.0)
== END ==
PROVIDERS: PCP Family Medicine; Visit Provider Family Medicine
DX: R10.9 Unspecified abdominal pain (principal); R53.83 Other fatigue
CPT/HCPCS: 82607; 87086

== ENCOUNTER → 2022-11-20 13:19 | Outpatient (CLI) | payer MEDICARE, MEDICAID, SELFPAY ==
--- NOTE | 2022-11-20 13:22 | XR_ITS ---
FINAL REPORT CLINICAL HISTORY: CERVICAL SPONDYLOSIS FINDINGS: CERVICAL SPINE Six views demonstrate no acute fracture. There are mild and moderate degenerative changes. There are disc osteophyte complexes at C5-6 and C6-7. Mild bilateral neural foraminal narrowing is seen at C6-7. There is no abnormal movement with flexion and extension maneuvers. IMPRESSION: Degenerative changes as detailed above. Reviewed, Interpreted and Dictated by Evgeny Rosales III, MD Transcribed by Mishel Lutz Authenticated and [facility]
== END ==
PROVIDERS: PCP Family Medicine; Visit Provider Physical Medicine & Rehabilitation
DX: M47.812 Spondylosis without myelopathy or radiculopathy, cervical region (principal)
CPT/HCPCS: 72052

== ENCOUNTER → 2022-12-04 14:35 | Outpatient (CLI) | payer MEDICARE, MEDICAID, SELFPAY ==
--- NOTE | 2022-12-04 14:38 | XR_ITS ---
FINAL REPORT CLINICAL HISTORY: 1st knuckle pain FINDINGS: Right hand Three views were obtained. There is no acute fracture or dislocation. There is mild narrowing of the 1st metacarpophalangeal joint consistent with mild osteoarthritis. There is an ossific fragment at the lateral margin of the 5th metacarpophalangeal joint measuring 4 mm, probably due to sequela of old trauma. No soft tissue abnormality is identified. IMPRESSION: Degenerative and chronic appearing findings. Reviewed, Interpreted and Dictated by Vlad Duran MD Transcribed by Mishel Lutz Authenticated and . [facility]
--- NOTE | 2022-12-04 14:38 | XR_ITS ---
FINAL REPORT CLINICAL HISTORY: r knee popping COMPARISON: 08/07/2022 FINDINGS: Right knee Three views were obtained. There is no acute fracture or dislocation. The joint spaces appear normal. No soft tissue abnormality is identified. IMPRESSION: No acute process. Reviewed, Interpreted and Dictated by Vlad Duran MD Transcribed by Mishel Lutz Authenticated and [facility]
[2022-12-04 19:20] LABS: Uric Acid 4.7 mg/dl (3.5-8.5)
[2022-12-04 19:22] LABS: Erythrocyte Sedimentation Rate 1 mm/hr (0-15)
[2022-12-04 19:26] LABS: C-Reactive Protein 1.8 mg/L (0-4)
== END ==
PROVIDERS: PCP Nurse Practitioner Family; Visit Provider Nurse Practitioner Family
DX: R29.898 Other symptoms and signs involving the musculoskeletal system (principal); M79.641 Pain in right hand; M25.561 Pain in right knee; B00.9 Herpesviral infection, unspecified
CPT/HCPCS: 73130; 73564; 84550; 85651; 86140; 86695; 86790

== ENCOUNTER → 2022-12-04 23:41 | Outpatient (CLI) | payer MEDICARE, MEDICAID, SELFPAY | PROVIDERS: PCP Nurse Practitioner Family; Visit Provider Nurse Practitioner Family | DX: M25.562 Pain in left knee (principal) ==

== ENCOUNTER → 2023-02-10 11:34 | Outpatient (CLI) | payer MEDICARE, MEDICAID, SELFPAY ==
[2023-02-10 13:13] LABS: Phenytoin (Dilantin) 3.2 ug/ml (10-20)
== END ==
PROVIDERS: PCP Internal Medicine; Visit Provider Internal Medicine
DX: R56.9 Unspecified convulsions (principal)
CPT/HCPCS: 36415; 80185

== ENCOUNTER 2023-02-24 14:31 | Emergency (ER) | payer MEDICARE, MEDICAID, SELFPAY ==
[2023-02-24 14:32] VITALS: BP 139/94; PULSE 73; RESP 18; TEMP 36.7; O2SAT 96; BMI 27.3
[2023-02-24 15:00] VITALS: BP 141/78; PULSE 74; RESP 18; O2SAT 96
[2023-02-24 15:01] LABS: Basophils # 0.1 K/mm3 (0-0.2); Basophils % 1.4 % (0.1-2.0); Eosinophils # 0.9 K/mm3 (0.0-0.4); Eosinophils % 12.9 % (0.1-12.0); Hemoglobin 15.1 g/dL (14.1-18.0); Lymphocytes # 2.4 K/mm3 (0.7-4.5); Lymphocytes % 36.2 % (10-50); Mean Corpuscular Hemoglobin 34.6 pg (27.0-31.2); Mean Corpuscular Volume 98.8 fl (80-94); Mean Platelet Volume 7.5 fl (7.4-10.4); Monocytes # 0.4 K/mm3 (0.1-1.0); Monocytes % 6.4 % (1.7-9.3); Neutrophils # 2.9 K/mm3 (1.8-7.8); Neutrophils % 43.1 % (37.0-80.0); Platelet Count 172 K/mm3 (142-424); Red Blood Count 4.35 M/mm3 (4.60-6.20); Red Cell Distribution Width 13.5 % (11.5-17.5); White Blood Count 6.7 K/mm3 (4.8-10.8)
[2023-02-24 15:02] LABS: Chloride 109 mmol/L (98-107); Sodium 138 mmol/L (136-145)
[2023-02-24 15:03] LABS: Potassium 3.6 mmoL/L (3.5-5.1)
[2023-02-24 15:05] LABS: Alanine Aminotransferase 30 U/L (12-78); Albumin Level 4.2 g/dl (3.5-5.0); Albumin/Globulin Ratio 1.6 (1.1-1.8); Alkaline Phosphatase 88 U/L (38-126); Anion Gap 7.6 mEq/L (5-15); Aspartate Amino Transferase 37 U/L (17-59); Bilirubin,Total 0.1 mg/dl (0.2-1.3); Blood Urea Nitrogen 12 mg/dl (9-20); Calcium 8.4 mg/dl (8.4-10.2); Carbon Dioxide 25 mmol/L (22.0-30.0); Creatinine Clearance Estimated 102 mL/min (50-200); Estimated Glomerular Filt Rate 79 ml/min (>60); GFR (African American) 96 ML/MIN (>60); Globulin 2.6 g/dL (1.3-3.2); Glucose 140 mg/dl (74-100); Total Protein,Serum 6.8 g/dl (6.3-8.2)
--- NOTE | 2023-02-24 15:07 | HMH.EDGENADL ---
Discharge Plan Disposition Patient Disposition: Home, Self-Care Chief Complaint: Seizure Prescriptions Prescriptions: No Action albuterol sulfate 90 mcg/actuation HFA aerosol inhaler 2 inh IH Q4-6H PRN (Reason: Shortness Of Breath Or Wheezing) Qty: 8.5 10RF fluticasone furoate-vilanterol 200-25 mcg/dose blister with device 1 inh INHALATION DAILY Qty: 28 10RF hydroxyzine HCl 50 mg tablet 50 mg PO BID PRN (Reason: anxiety) Qty: 60 5RF Rx Instructions: okay to take along with buspar if necessary buspirone 15 mg tablet 15 mg PO QID fluticasone propionate 50 mcg/actuation spray,suspension 2 spray INTRANASAL DAILY Qty: 16 2RF Rx Instructions: administer into each nostril duloxetine [Cymbalta] 60 mg capsule,delayed release(DR/EC) 60 mg PO DAILY Qty: 90 3RF esomeprazole magnesium 40 mg capsule,delayed release(DR/EC) See Rx Instructions .ROUTE .COMPLEX Qty: 90 4RF Dose Instruction: TAKE ONE CAPSULE BY MOUTH EVERY DAY FOR gerd Rx Instructions: TAKE ONE CAPSULE BY MOUTH EVERY DAY FOR gerd phenytoin sodium extended 100 mg capsule See Rx Instructions .ROUTE .COMPLEX Qty: 150 10RF Dose Instruction: TAKE TWO CAPSULES BY MOUTH IN THE MORNING AND TAKE THREE CAPSULES IN THE EVENING Rx Instructions: TAKE TWO CAPSULES BY MOUTH IN THE MORNING AND TAKE THREE CAPSULES IN THE EVENING escitalopram oxalate [Lexapro] 20 mg tablet 20 mg PO DAILY Qty: 90 3RF celecoxib 200 mg capsule See Rx Instructions .ROUTE .COMPLEX Qty: 30 1RF Dose Instruction: TAKE ONE CAPSULE BY MOUTH EVERY DAY --TAKE WITH FOOD-- Rx Instructions: TAKE ONE CAPSULE BY MOUTH EVERY DAY --TAKE WITH FOOD-- naproxen 500 mg tablet See Rx Instructions .ROUTE .COMPLEX Qty: 30 2RF Dose Instruction: TAKE ONE TABLET BY MOUTH TWICE DAILY --TAKE WITH FOOD-- Rx Instructions: TAKE ONE TABLET BY MOUTH TWICE DAILY --TAKE WITH FOOD-- ipratropium-albuterol 0.5 mg-3 mg(2.5 mg base)/3 mL solution for nebulization See Rx Instructions .ROUTE .COMPLEX Qty: 180 10RF Dose Instruction: INHALE THE CONTENTS OF 1 VIAL VIA NEBULIZER EVERY 8 HOURS NEEDED FOR SHORTNESS OF BREATH OR wheezing Rx Instructions: INHALE THE CONTENTS OF 1 VIAL VIA NEBULIZER EVERY 8 HOURS NEEDED FOR SHORTNESS OF BREATH OR wheezing atorvastatin 40 mg tablet See Rx Instructions .ROUTE .COMPLEX Qty: 90 3RF Dose Instruction: TAKE ONE TABLET BY MOUTH EVERY DAY Rx Instructions: TAKE ONE TABLET BY MOUTH EVERY DAY cariprazine 1.5 mg capsule 1.5 mg PO DAILY Qty: 30 2RF melatonin 3 MG tablet 3 mg PO HS Rx Instructions: Take 1 tab at bedtime as needed for sleep. Activity Restrictions/Add. Instructions Additional Instructions/Restrictions: Take phenytoin 200 mg in the morning, 600 mg at night. Follow-up with Dr. Gutierrez. Call your family doctor to establish care for this visit to the emergency department and schedule follow-up within 48 hours to ensure improvement. If you have any worsening of your condition or any other concerning signs or symptoms, return to the emergency department or your primary care doctor for further evaluation. Clinical Impressions Clinical Impression: Encounter for medical assessment Instructions Patient Instructions: DI for Seizure Disorder -- Adult, DI for Seizure (Not Epilepsy/Seizure Disorder), DI for Seizure Disorder -- Child Discharge ED Provider: Les Cintron General Adult [facility] General Chief complaint: Seizure Stated complaint: feels like hes gonna have a seizure Time Seen by Provider: 02/24/23 14:43 Mode of Arrival: Ambulatory Source of Information: Patient and EMS Limitations: No Limitations Description of Symptoms (Recalled from ER Triage Doc. by RN): pt states that he was going to have a seizure, soa, he is breathing through his mouth instead of his nose and that is not normal for him, States that his head started spinni
[2023-02-24 15:32] VITALS: BP 141/93; PULSE 77; O2SAT 97
[2023-02-24 16:04] VITALS: BP 141/78; PULSE 67; RESP 20; TEMP 36.7; O2SAT 97
== END 2023-02-24 16:05 | disposition home or self-care (01) ==
PROVIDERS: Emergency Provider Emergency Medicine
DX: G40.909 Epilepsy, unspecified, not intractable, without status epilepticus (principal); F17.210 Nicotine dependence, cigarettes, uncomplicated; J44.9 Chronic obstructive pulmonary disease, unspecified; K21.9 Gastro-esophageal reflux disease without esophagitis; I10 Essential (primary) hypertension; E78.5 Hyperlipidemia, unspecified
CPT/HCPCS: 80053; 85025; 96365; 99284; J1953

== ENCOUNTER → 2023-02-27 16:23 | Outpatient (CLI) | payer MEDICARE, MEDICAID, SELFPAY ==
[2023-02-27 18:00] LABS: Phenytoin (Dilantin) 5.8 ug/ml (10-20)
== END ==
PROVIDERS: PCP Internal Medicine; Visit Provider Internal Medicine
DX: G40.909 Epilepsy, unspecified, not intractable, without status epilepticus (principal)
CPT/HCPCS: 80185

== ENCOUNTER 2023-03-20 09:04 | Day surgery (SDC) | payer MEDICARE, MEDICAID, SELFPAY ==
[2023-03-10 15:05] VITALS: BMI 28.1
[2023-03-20 09:50] VITALS: BP 130/84; PULSE 73; RESP 20; TEMP 36.5; O2SAT 98
[2023-03-20 09:58] LABS: POC Glucose,Bedside 96 (70-110)
--- NOTE | 2023-03-20 10:16 | P.PNANES_ITS ---
[facility] Disclaimer: The information contained in this section may have been updated after the patient was seen, as this information can be updated by other users. 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 Acute bacterial sinusitis Anxiety Asthma Chronic obstructive pulmonary disease Depression GERD (gastroesophageal reflux disease) Hepatitis B HLD (hyperlipidemia) HTN (hypertension), benign Influenza A Migraine Nasal polyp Pharyngitis Pneumonia Schizophrenia Seizure disorder Nuno is complaining of memory problems. I am wondering if this is not related to his seizures. He states his seizures are blackout and this seems to suggest absence seizure's or something similar. He has seen Dr. Deng in the past we will send him to her as a referral. Additionally we will get a phenytoin level today. Upper respiratory infection 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 H/O arthroscopy of right knee H/O vasectomy History of arthroscopy of left shoulder History of arthroscopy of right shoulder Hx of tonsillectomy Family History Other Cancer 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 Smoking Status: Current every day smoker tobacco type: cigarettes packs per day: 1 second hand exposure: No alcohol intake: never substance use type: former substance user, marijuana and methamphetamine current occupational status: other Travel in the last 8 weeks: None household members: other housing: house number of children: 2 current occupational exposures/hazards: No caffeine: Yes [facility] Anesthesia Checklist Patient Identification Patient Identification: Verbal (Name & ) Structural Data Admitted From: Home Planned Operative Procedure/s: egd,colonoscopy Consent for Planned Operative Procedure(s) Verified: Yes NPO Status Verified Time NPO: 00:00 Additional verifications Anesthesia Reactions: No Airway Assessment Mallampati Score:: Class III C-Spine Mobility Assessed: Yes TMJ Mobility Assessed: Yes Dentition: Edentulous Neurological Assessment Level of Consciousness: Awake, Alert and Appropriate Anesthesia Plan Anesthesia Risk discussed: Yes Anesthesia Plan: Verified ASA Class: III Anesthesia Type: MAC
--- NOTE | 2023-03-20 10:40 | HMH.SCOPE ---
Procedure: Date: 03/20/23 Patient Date of :: 1970 Procedure Performed:: EGD and dilation Indications:: Dysphagia Performing Provider:: Vince Manrique MD Referring Provider:: Carissa Manrique APRN Sedation:: Propofol Procedure:: The gastroscope was gently passed through the incisoral orifice into the oral cavity and under direct visualization the esophagus was intubated. The endoscope was passed down the esophagus, through the stomach, and into the duodenum. Color, texture, mucosa, and anatomy of the esophagus, stomach, and duodenum were carefully examined with the scope. Findings:: Oropharynx: normal Esophagus: normal, empiric treatment performed with 58F bougie dilator EG Junction: intact at 40 cm Cardia: normal Fundus: normal Body: normal Antrum: normal Duodenal bulb: normal Duodenum (second and third portion): normal Impression: Symptomatic dysphagia treated with bougie dilation Recommendations:: Repeat dilation in about Three years or so as clinically indicated. Complications:: None Estimated blood obtained (mL): 0 Colonoscopy Component Colonoscopy Component Was a colonoscopy performed during today's procedure?: No
--- NOTE | 2023-03-20 10:43 | HMH.SCOPE ---
Procedure: Date: 03/20/23 Patient Date of :: 1970 Procedure Performed:: Screening colonoscopy Indications:: Colon cancer screening Performing Provider:: Vince Manrique MD Referring Provider:: Carissa Manrique APRN Sedation:: Propofol Procedure:: After placing the patient in the left lateral decubitus position, the colonoscopy was gently inserted into the rectum and under direct visualization advanced to the cecum which was identified by transillumination in the right lower quadrant, identification of the ileocecal valve, appendiceal orifice, and cecal strap. Color, texture, mucosa, and anatomy of the colon were carefully examined with the scope. Findings:: Anal canal: normal Rectum: normal Sigmoid colon: normal without polyps or inflammatory changes Descending colon: normal without polyps or inflammatory changes Splenic flexure: normal Transverse colon: normal without polyps or inflammatory changes Hepatic flexure: normal Ascending colon: residual stools noted, normal without polyps or inflammatory changes Cecum: normal Terminal ileum: not visualized Impression: Normal colonoscopy Recommendations:: Follow up examination in about TEN years or so, sooner if clinically indicated. Complications:: None Estimated blood obtained (mL): 0 Colonoscopy Component Colonoscopy Component Was a colonoscopy performed during today's procedure?: Yes Recommended follow up colonoscopy of at least 10 years?: Yes
[2023-03-20 10:45] VITALS: BP 129/93; PULSE 17; RESP 17; O2SAT 94
[2023-03-20 10:55] VITALS: BP 144/88; PULSE 92; RESP 18; O2SAT 94
[2023-03-20 11:05] VITALS: BP 119/67; PULSE 91; RESP 17; O2SAT 95
[2023-03-20 11:15] VITALS: BP 118/89; PULSE 93; RESP 18; O2SAT 95
[2023-03-20 12:05] VITALS: BP 132/84; PULSE 90; RESP 17; O2SAT 97
== END 2023-03-20 11:45 | disposition home or self-care (01) ==
PROVIDERS: PCP Internal Medicine; Visit Provider Internal Medicine Gastroenterology
PROC: 0DJ08ZZ Inspection of Upper Intestinal Tract, Via Natural or Artificial Opening Endoscopic (ICD-10-PCS; CPT 43235; principal; 2023-03-20 09:30)
DX: R13.10 Dysphagia, unspecified (principal); Z12.11 Encounter for screening for malignant neoplasm of colon
CPT/HCPCS: 43248; G0121; 82962

== ENCOUNTER 2023-04-13 15:18 | Emergency (ER) | payer MEDICARE, MEDICAID, SELFPAY ==
[2023-04-13 15:19] VITALS: BP 123/86; PULSE 79; RESP 18; TEMP 36.6; O2SAT 98; BMI 27.3
--- NOTE | 2023-04-13 15:30 | XR_ITS ---
PROCEDURE INFORMATION: Exam: XR Chest Exam date and time: 04/13/2023 4:26 PM Age: 52 years old Clinical indication: Cough; Additional info: Cough, copd TECHNIQUE: Imaging protocol: Radiologic exam of the chest. Views: 2 views. COMPARISON: CR XR CHEST 2V 09/28/2021 9:45 AM FINDINGS: Lungs: Normal. Pleural spaces: Normal No pleural effusion. No pneumothorax. Heart/Mediastinum: Normal. No cardiomegaly. Bones/joints: Old right posterior 5th rib fracture. IMPRESSION: No acute findings.
--- NOTE | 2023-04-13 15:32 | ECG_ITS ---
APPROVED REPORT Exam: Resting ECG HR:67 bpm ECG Measurements Heart Rate 67 AXES MN 168 P 73 QRSd 116 QRS 86 QT 364 T 35 QTc 380 Conclusion SINUS RHYTHM MODERATE INTRAVENTRICULAR CONDUCTION DELAY [110+ ms QRS DURATION] BORDERLINE ECG UNCONFIRMED REPORT Electronically signed by : Augustine Garcias MD 04/14/2023 08:24:35
--- NOTE | 2023-04-13 15:32 | ED_ITS ---
Discharge Plan Disposition Patient Disposition: Home, Self-Care Prescriptions Prescriptions: New prednisone 50 mg tablet 50 mg PO DAILY 4 Days Qty: 4 0RF azithromycin 250 mg tablet 250 mg PO DAILY 4 Days Qty: 4 0RF Rx Instructions: start on day 2 of therapy No Action ropinirole 1 mg tablet 1 mg PO HS Rx Instructions: administer 1-3 hours before bedtime duloxetine 60 mg capsule,delayed release(DR/EC) 60 mg PO DAILY beclomethasone dipropionate 40 mcg/actuation HFA aerosol breath activated 1 inh inhalation BID Qty: 10.6 2RF cariprazine 1.5 mg capsule 3 mg PO DAILY 30 Days Qty: 60 2RF esomeprazole magnesium 40 mg capsule,delayed release(DR/EC) See Rx Instructions .ROUTE .COMPLEX Qty: 90 4RF Dose Instruction: TAKE ONE CAPSULE BY MOUTH EVERY DAY FOR gerd Rx Instructions: TAKE ONE CAPSULE BY MOUTH EVERY DAY FOR gerd phenytoin sodium extended 100 mg capsule See Rx Instructions .ROUTE .COMPLEX Qty: 150 10RF Dose Instruction: TAKE TWO CAPSULES BY MOUTH IN THE MORNING AND TAKE THREE CAPSULES IN THE EVENING Rx Instructions: TAKE TWO CAPSULES BY MOUTH IN THE MORNING AND TAKE THREE CAPSULES IN THE EVENING ipratropium-albuterol 0.5 mg-3 mg(2.5 mg base)/3 mL solution for nebulization See Rx Instructions .ROUTE .COMPLEX Qty: 180 10RF Dose Instruction: INHALE THE CONTENTS OF 1 VIAL VIA NEBULIZER EVERY 8 HOURS NEEDED FOR SHORTNESS OF BREATH OR wheezing Rx Instructions: INHALE THE CONTENTS OF 1 VIAL VIA NEBULIZER EVERY 8 HOURS NEEDED FOR SHORTNESS OF BREATH OR wheezing atorvastatin 40 mg tablet See Rx Instructions .ROUTE .COMPLEX Qty: 90 3RF Dose Instruction: TAKE ONE TABLET BY MOUTH EVERY DAY Rx Instructions: TAKE ONE TABLET BY MOUTH EVERY DAY semaglutide 3 mg tablet 3 mg PO DAILY 30 Days Qty: 30 0RF Referrals Follow up/Referrals: Robbie Peterson DO [Primary Care Provider] - See instructions Activity Restrictions/Add. Instructions Additional Instructions/Restrictions: At this time it was felt you are safe to be discharged home. If new or worsening symptoms please do not hesitate to return the emergency department. If symptoms persist please follow-up with your family doctor as you are able. Please take your medications as prescribed. Clinical Impressions Clinical Impression: COPD exacerbation Discharge ED Provider: Fairchild,Tomer G HPI General Chief Complaint: Shortness of Breath/Dyspnea Stated Complaint: SOA Time Seen by Provider: 04/13/23 15:25 History of Present Illness HPI narrative: Patient is a 52-year-old past medical history of COPD not on home oxygen who presents emergency department for evaluation of cough and shortness of breath. Onset was acute, approximately 9 to 10 days ago, intermittent productive cough. Patient had substernal chest pain many days ago that did not radiate that has resolved spontaneously without intervention. Due to persistent symptoms he presents here for continued evaluation. Related Data Home Medications Medication Instructions Recorded Confirmed duloxetine 60 mg capsule,delayed 60 mg PO DAILY 03/24/23 03/28/23 release ropinirole 1 mg tablet 1 mg PO HS 03/24/23 03/28/23 Previous Rx's Medication Instructions Recorded esomeprazole magnesium 40 mg See Rx Instructions .Route 03/13/22 capsule,delayed release .COMPLEX #90 caps phenytoin sodium extended 100 mg See Rx Instructions .Route 11/04/22 capsule .COMPLEX #150 caps ipratropium 0.5 mg-albuterol 3 mg See Rx Instructions .Route 01/29/23 (2.5 mg base)/3 mL nebulization .COMPLEX #180 mL soln atorvastatin 40 mg tablet See Rx Instructions .Route 02/03/23 .COMPLEX #90 tabs beclomethasone dipropionate 40 1 inh inhalation BID #10.6 grams 03/24/23 mcg/actuation HFA breath activated aerosol cariprazine 1.5 mg capsule 3 mg PO DAILY 30 days #60 caps 03/28/23 semaglutide 3 mg tablet 3 mg PO DAILY 30 days #30 tabs 03/31/23 azithromycin 250 mg tablet 250 mg PO DAILY 4 days #4 tabs 04/13/23 prednisone 50 mg tablet 50 mg PO DAILY 4 days #4 tabs 04/13/23 Allergies Allergy/AdvReac Type Severity Reaction Status Date / Time alprazolam [From Xanax] Allergy Verified 03/28/23 09:00 fluoxetine [From Prozac] Allergy Verified 03/28/23 09:00 [facility] Disclaimer: The information contained in this section may have been updated after the patient was seen, as this information can be updated by other users. 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 Acute bacterial sinusitis Anxiety Asthma Chronic obstructive pulmonary disease We will follow this for now. He does have albuterol MDIs. Depression GERD (gastroesophageal reflux disease) Hepatitis B We will re-check this and send him to Dr. Casas. HLD (hyperlipidemia) HTN (hypertension), benign Influenza A Migraine Nasal polyp Pharyngitis Pneumonia Schizophrenia Seizure disorder As mentioned we will refer to Dr. Deng as soon as possible. Aramis is doing much better on his phenytoin at 2 tablets in the morning 3 tablets in the evening. He was only taking 2 tablets a day. His phenytoin levels were extremely low. We will repeat those today but he states he is back on the twice daily dosing as originally prescribed. Upper respiratory infection 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 H/O arthroscopy of right knee H/O vasectomy History of arthroscopy of left shoulder History of arthroscopy of right shoulder Hx of tonsillectomy Family History Other Cancer 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 Smoking Status: Current every day smoker tobacco type: cigarettes packs per day: 1 second hand exposure: No alcohol intake: never substance use type: former substance user, marijuana and methamphetamine current occupational status: other Travel in the last 8 weeks: None household members: other housing: house number of children: 2 current occupational exposures/hazards: No caffeine: Yes ROS Obtained: Yes Systems reviewed as appropriate & no additional complaints except as documented Physical Exam General General appearance: alert and in no apparent distress Head Head exam: atraumatic and normocephalic Eye Eye exam: Present PERRL and EOMI ENT ENT exam: Present mucous membranes moist Neck Neck exam: Present normal inspection Chest Chest inspection: Present normal inspection and symmetric chest wall rise Respiratory Respiratory exam: Absent normal lung sounds bilaterally (Expiratory phase wheezing, decreased air movement in all lung nobles.) or respiratory distress Cardiovascular Cardiovascular exam: Present regular rate and normal rhythm Abdominal Exam Abdominal exam: Present soft Extremities Exam Extremities exam: Present normal inspection Neurological Exam Neurological exam: Present alert Psychiatric Psychiatric exam: Present normal affect Skin Skin exam: Present warm and dry HEART Score HEART Score HEART Score assessment performed?: Yes History (anamnesis): Slightly suspicious ECG: Normal Age: 45-65 years Risk factors: 1-2 risk factors Troponin: </= normal limit HEART Score: 2 Critical Care Critical Care Time Critical Care Time: No Medical Decision Making Krishna Inquiry Pt receiving controlled substance: No Vital Signs Vital Signs: 04/13/23 15:19 04/13/23 16:00 04/13/23 16:31 Temperature 97.9 F Temperature Source Oral Pulse Rate 76 83 Pulse Rate [Radial] 79 Respiratory Rate 18 Blood Pressure 128/81 108/78 L Blood Pressure [Right Arm] 123/86 Blood Pressure Mean 92 84 Blood Pressure Mean [Right Arm] 98 Blood Pressure Source [Right Arm] Automatic Cuff Blood Pressure Position [Right Arm] Sitting 02 Sat by Pulse Oximetry 98 98 100 Oxygen Delivery Method Room Air Room Air Room Air Lab Data Labs: Lab Results 04/13/23 15:36: SARS-CoV-2 (PCR) Not detected, Influenza A Untype (PCR) Not detected, Influenza Type B (PCR) Not detected 04/13/23 15:41: WBC 6.0, RBC 4.94, Hgb 16.8, Hct 48.3, MCV 97.9 H, MCH 34.1 H, MCHC 34.8, RDW 13.7, Plt Count 220, MPV 7.8, Neut % (Auto) 44.0, Lymph % (Auto) 38.0, [place] % (Auto) 7.6, Eos % (Auto) 8.8, Baso % (Auto) 1.6, Neut # (Auto) 2.6, Lymph # (Auto) 2.3, [place] # (Auto) 0.5, Eos # (Auto) 0.5 H, Baso # (Auto) 0.1, Sodium 140, Potassium 4.1, Chloride 106, Carbon Dioxide 25, Anion Gap 13.1, BUN 17, Creatinine 1.10, Estimated Creat Clear 93, Estimated GFR 71, Est GFR ( Amer) 86, Glucose 99, Calcium 8.6, Total Bilirubin 0.4, AST 39, ALT 24, Alkaline Phosphatase 96, Troponin I < 0.01, Total Protein 7.2, Albumin 4.2, Globulin 3.0, Albumin/Globulin Ratio 1.4 04/13/23 15:41 04/13/23 15:41 Response Orders (Tests/Meds): ED MEDICATIONS Discontinued Medications Generic Name Dose Route Start Last Admin Trade Name Freq PRN Reason Stop Dose Admin Albuterol/Ipratropium 3 ml 04/13/23 15:30 04/13/23 15:44 Ipratropium/Albuterol 3 Ml [facility] 04/13/23 15:31 3 ml ONCE ONE Administration Albuterol/Ipratropium 6 ml 04/13/23 16:05 04/13/23 16:11 Ipratropium/Albuterol 3 Ml [facility] hospital 04/13/23 16:06 6 ml ONCE ONE Administration Azithromycin 500 mg/ Sodium 250 mls @ 250 mls/hr 04/13/23 15:31 04/13/23 15:43 Chloride IV 04/13/23 15:32 250 mls/hr ONCE ONE Administration Methylprednisolone Sodium Succinate 125 mg 04/13/23 15:30 04/13/23 15:43 Methylprednisolone Sod Succ 125mg Vial IV 04/13/23 15:31 125 mg ONCE ONE Administration ORDERS Category Date Time Status CXR 2 view (NOT portable) [XR chest 2V] Stat Exams 04/13/23 15:30 Taken CBC w/Auto Diff [Complete Blood Count Auto Diff] Stat Lab 04/13/23 15:41 Completed CMP [Comprehensive Metabolic Panel] Stat Lab 04/13/23 15:41 Completed Rapid PCR Covid and Flu A/B Stat Lab 04/13/23 15:36 Completed Trop I [Troponin I] Stat Lab 04/13/23 15:41 Completed Troponin I Q3H Lab 04/13/23 18:30 Ordered Troponin I Q3H Lab 04/13/23 21:30 Ordered ECG Data Tracing #1: ECG Narrative: Independently interpreted by me, rate is 67, rhythm is regular, no ST elevation in anatomical contiguous leads, QTc 380. [facility] Narrative Medical Decision Narrative: In summary patient is a 52-year-old male with past medical history described above who presents emergency department for evaluation of shortness of breath and cough in the setting of COPD. Patient is hemodynamically stable nontoxic- appearing upon arrival, afebrile. Differential includes COPD exacerbation secondary to virus, pneumonia, influenza, among others. Patient had previous chest pain for which he is currently asymptomatic, single troponin will be obtained. Workup will be conducted with hematologic labs, chest x-ray, EKG. Initial inventions include DuoNeb's x 3, methylprednisolone, azithromycin. Workup reviewed by me, hematologic labs are nonactionable. Chest x-ray informally interpreted by me, no acute lobar opacities or large pneumothorax. Initial troponin blood test: Patient does not have chest pain on my evaluation therefore second troponin was considered but is not necessary and will be deferred at this time. COVID and influenza negative. Upon repeat evaluation patient had significant improvement in air movement in all lung nobles, no respiratory distress saturating well on room air. Given this patient is appropriate for discharge at this time will be discharged with a course of azithromycin and steroids and was given return precautions.
--- NOTE | 2023-04-13 15:36 | PC.NURSE ---
swab sent to lab
[2023-04-13 15:42] LABS: Coronavirus 19, PCR Not Detected (NotDetected); Influenza A, PCR Not Detected (NotDetected); Influenza B, PCR Not Detected (NotDetected)
[2023-04-13] MEDS: METHYLPREDNISOLONE SOD SUCC 125MG VIAL 125 MG IV (15:43)
[2023-04-13] MEDS: AZITHROMYCIN 500 MG in 0.9 % SODIUM CHLORIDE 250 ML 250 MG IV (15:43)
[2023-04-13] MEDS: IPRATROPIUM/ALBUTEROL 3 ML NEB IH (15:44)
[2023-04-13 15:49] LABS: Basophils # 0.1 K/mm3 (0-0.2); Basophils % 1.6 % (0.1-2.0); Eosinophils # 0.5 K/mm3 (0.0-0.4); Eosinophils % 8.8 % (0.1-12.0); Hematocrit 48.3 % (42.0-52.0); Hemoglobin 16.8 g/dL (14.1-18.0); Lymphocytes # 2.3 K/mm3 (0.7-4.5); Mean Corpuscular HGB Conc 34.8 g/dL (31.8-35.4); Mean Corpuscular Hemoglobin 34.1 pg (27.0-31.2); Mean Corpuscular Volume 97.9 fl (80-94); Mean Platelet Volume 7.8 fl (7.4-10.4); Monocytes # 0.5 K/mm3 (0.1-1.0); Monocytes % 7.6 % (1.7-9.3); Neutrophils # 2.6 K/mm3 (1.8-7.8); Platelet Count 220 K/mm3 (142-424); Red Blood Count 4.94 M/mm3 (4.60-6.20); Red Cell Distribution Width 13.7 % (11.5-17.5)
[2023-04-13 15:59] LABS: Chloride 106 mmol/L (98-107)
[2023-04-13 16:00] VITALS: BP 128/81; PULSE 76; O2SAT 98
[2023-04-13 16:00] LABS: Potassium 4.1 mmoL/L (3.5-5.1); Sodium 140 mmol/L (136-145)
[2023-04-13 16:02] LABS: Alanine Aminotransferase 24 U/L (12-78); Alkaline Phosphatase 96 U/L (38-126); Aspartate Amino Transferase 39 U/L (17-59); Bilirubin,Total 0.4 mg/dl (0.2-1.3); Blood Urea Nitrogen 17 mg/dl (9-20); Creatinine Clearance Estimated 93 mL/min (50-200); Estimated Glomerular Filt Rate 71 ml/min (>60); GFR (African American) 86 ML/MIN (>60)
[2023-04-13 16:03] LABS: Albumin Level 4.2 g/dl (3.5-5.0); Albumin/Globulin Ratio 1.4 (1.1-1.8); Anion Gap 13.1 mEq/L (5-15); Calcium 8.6 mg/dl (8.4-10.2); Carbon Dioxide 25 mmol/L (22.0-30.0); Glucose 99 mg/dl (74-100); Total Protein,Serum 7.2 g/dl (6.3-8.2)
[2023-04-13] MEDS: IPRATROPIUM/ALBUTEROL 3 ML NEB 6 ML IH (16:11)
[2023-04-13 16:16] LABS: Troponin I < 0.01 ng/ml (0.00-0.034)
[2023-04-13 16:31] VITALS: BP 108/78; PULSE 83; O2SAT 100
[2023-04-13 17:13] VITALS: BP 108/78; PULSE 83; RESP 18; TEMP 36.6; O2SAT 100
== END 2023-04-13 17:14 | disposition home or self-care (01) ==
PROVIDERS: Emergency Provider Emergency Medicine; PCP Internal Medicine
DX: J44.1 Chronic obstructive pulmonary disease with (acute) exacerbation (principal); R05.9 Cough, unspecified; I10 Essential (primary) hypertension; E78.5 Hyperlipidemia, unspecified; G40.909 Epilepsy, unspecified, not intractable, without status epilepticus; F20.9 Schizophrenia, unspecified; F17.210 Nicotine dependence, cigarettes, uncomplicated; R06.02 Shortness of breath
CPT/HCPCS: 71046; 80053; 84484; 85025; 87636; 93005; 96374; 96375; 99285; J0456

== ENCOUNTER → 2023-05-12 14:47 | Outpatient (POV) | payer MEDICARE, SELFPAY ==
--- NOTE | 2023-05-12 15:05 | A.OFFVIS_ITS ---
HPI Data of Consult Patient: new to practice Consult date: 05/12/23 Requesting Physician: Wendy Owens APRN Primary Care Provider: Robbie Peterson DO Consult Narrative History of present illness: Mr. Clifton is a 53 year old male who presents today as a new patient. He is a referral from Dr. Thomas's office. Today he rates his pain an 8 out of 10. Patient states his pain is all at his neck that does produce headaches and low back. Patient describes this as a aching, throbbing sensation that is worse with increased activity or range of motion. Patient states that the low back pain does bother him more than his neck issues. He states this is fairly constant and does interfere with his ability perform activities of daily living such as cooking and cleaning. He states that certain movements such as bending, twisting or lifting do seem to aggravate his symptoms. Patient states that he has had injections in the past that did provide some improvement however only temporary. Patient has tried Tylenol and ibuprofen along with heat and ice and topicals with minimal relief. Patient was previously at a pain doctor in [facility] until he retired. Patient was prescribed oxycodone 10 mg 4 times a day from Dr. Gill's office. His Krishna has been reviewed. CC: Wendy Owens APRN [facility] Disclaimer: The information contained in this section may have been updated after the patient was seen, as this information can be updated by other users. 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 Acute bacterial sinusitis Anxiety Asthma Chronic obstructive pulmonary disease We will follow this for now. He does have albuterol MDIs. Depression GERD (gastroesophageal reflux disease) Hepatitis B We will re-check this and send him to Dr. Casas. HLD (hyperlipidemia) HTN (hypertension), benign Influenza A Migraine Nasal polyp Pharyngitis Pneumonia Schizophrenia Seizure disorder As mentioned we will refer to Dr. Deng as soon as possible. Aramis is doing much better on his phenytoin at 2 tablets in the morning 3 tablets in the evening. He was only taking 2 tablets a day. His phenytoin levels were extremely low. We will repeat those today but he states he is back on the twice daily dosing as originally prescribed. Upper respiratory infection 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 H/O arthroscopy of right knee H/O vasectomy History of arthroscopy of left shoulder History of arthroscopy of right shoulder Hx of tonsillectomy Family History Other Cancer 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 Smoking Status: Current every day smoker tobacco type: cigarettes packs per day: 1 second hand exposure: No alcohol intake: never substance use type: former substance user, marijuana and methamphetamine current occupational status: unemployed Travel in the last 8 weeks: None household members: other housing: house number of children: 2 current occupational exposures/hazards: No caffeine: Yes Review of Systems Review of Systems Review of systems:: pertinent systems reviewed and negative unless documented below Review of systems (narrative): Review of Systems: General: No recent weight changes, no fever, no sleep disturbances Respiratory: No cough, no shortness of air, no recurring pulmonary infections Cardiovascular/peripheral vascular: No chest pain, no palpitations, no edema, no shortness of breath Gastrointestinal: No new onset incontinence, normal bowel movements reported Genitourinary: No new onset incontinence Musculoskeletal: Low back pain, neck pain Psychiatric: [Normal mood/affect] Neurological: [Denies weakness in extremities], [denies balance issues] Meds Home Medications and Allergies Home Medications Medication Instructions Recorded Confirmed Type phenytoin sodium extended 100 mg See Rx Instructions .Route 11/04/22 05/12/23 Rx capsule .COMPLEX #150 caps ipratropium 0.5 mg-albuterol 3 mg See Rx Instructions .Route 01/29/23 05/12/23 Rx (2.5 mg base)/3 mL nebulization .COMPLEX #180 mL soln atorvastatin 40 mg tablet See Rx Instructions .Route 02/03/23 05/12/23 Rx .COMPLEX #90 tabs beclomethasone dipropionate 40 1 inh inhalation BID #10.6 grams 03/24/23 05/12/23 Rx mcg/actuation HFA breath activated aerosol duloxetine 60 mg capsule,delayed 60 mg PO DAILY 03/24/23 05/12/23 History release ropinirole 1 mg tablet 1 mg PO HS 03/24/23 05/12/23 History cariprazine 1.5 mg capsule 3 mg PO DAILY 30 days #60 caps 03/28/23 05/12/23 Rx semaglutide 3 mg tablet 3 mg PO DAILY 30 days #30 tabs 03/31/23 05/12/23 Rx esomeprazole magnesium 40 mg See Rx Instructions .Route 05/05/23 05/12/23 Rx capsule,delayed release .COMPLEX #90 caps New Prescriptions to Start Prescriptions: Allergies Allergy/AdvReac Type Severity Reaction Status Date / Time alprazolam [From Xanax] Allergy Verified 04/23/23 13:19 fluoxetine [From Prozac] Allergy Verified 04/23/23 13:19 Objective Narrative: Physical Exam: General: Alert and oriented x3, no acute distress, pleasant and cooperative Lungs: Respirations even and unlabored, symmetrical chest expansion Eyes: PERRL Musculoskeletal: Flexion and extension of lumbar [spine] somewhat guarded secondary to pain, [antalgic gait noted] positive Kemps test Neurological: Speech clear, no gross sensory deficit Additional findings Additional findings: FINDINGS: On the sagittal images, abnormal decrease signal is identified within the L3-4 and L4-5 discs. Vertebrae are of normal height. No malalignment is seen. L1?to: No disc bulge or protrusion. L2-3: No disc bulge or protrusion. L3-4: Mild diffuse disc bulge is present. There is mild right and moderate left neural foraminal narrowing. L4-5: Mild diffuse disc bulge is present. There is a mild right posterolateral disc protrusion with annular tear. There is moderate right and mild left neural foraminal narrowing. L5-S1: No disc bulge or protrusion. IMPRESSION: 1. Degenerative disc signal changes most evident at L3-4 and L4-5 with neural foraminal compromise most evident on the left at L3-4 and on the right at L4-5. Please correlate with any specific radicular symptoms. Authenticated by Vlad Duran MD on 04/19/2021 03:27:31 PM [facility] FINDINGS: Multiplanar imaging of the thoracic spine was obtained, without administration of intravenous contrast. On the sagittal images, mild decrease signal is identified throughout the thoracic discs. Vertebrae are of normal height. No malalignment is seen. Thoracic cord demonstrates normal signal and configuration. On the axial images, there is no evidence of significant disc bulge or protrusion. IMPRESSION: 1. No evidence of significant spinal or neural foraminal compromise. 2. No evidence of acute osseous abnormality. Authenticated by Vlad Duran MD on 04/19/2021 03:10:27 PM [place] Assessment and Plan *Assessment and plan (1) Neck pain: Status: Acute Category: Medical Code(s): M54.2 - Cervicalgia (2) Low back pain: Problem Comment: His MRI from 05/05 revealed DDD changes at L3-4, L4-5, most sever neural foraminal compromise on the left. Not sure we need a repeat of this imaging. Nuno also has MSK pain triggers as well. We had meant to send this patient to Dr. Bloom and somehow that did not get done. Will make sure to refer him. Status: Chronic Qualifiers: Chronicity: chronic Back pain laterality: midline Sciatica presence: with sciatica Sciatica laterality: sciatica laterality unspecified Qualified Code(s): M54.40 - Lumbago with sciatica, unspecified side; G89.29 - Other chronic pain Category: Medical Code(s): M54.50 - Low back pain, unspecified (3) Lumbar facet arthropathy: Status: Acute Category: Medical Code(s): M47.816 - Spondylosis without myelopathy or radiculopathy, lumbar region Plan Patient is experiencing significant pain in his low back with limited range of motion and a positive Kemps test during today's exam. Patient has been counseled that he may benefit from a lumbar medial branch block. Risk and benefits were discussed with the patient and he would like to proceed forward with this plan of care. Patient has not had any recent imaging and I have discussed with the patient that we may proceed forward with this following his injections. I have counseled the patient if he does have a successful block we will plan on repeating it to be followed by a lumbar RFA if he does have significant relief and improved function. Patient is not on any blood thinners. Patient will be scheduled for a lumbar medial branch block L3-L4 and L4-L5 under fluoroscopy patient has been instructed to contact the clinic with any concerns before the next appointment. Dr. Bloom has reviewed this note and agrees with this plan of care. This note was dictated using voice recognition software and make contain errors or omissions.
[2023-05-12 15:18] VITALS: BP 126/81; PULSE 87; RESP 18; O2SAT 94; BMI 30.4
== END ==
LOC: SC.PAIN 14:48
PROVIDERS: PCP Internal Medicine; Visit Provider Nurse Practitioner Family
DX: M54.2 Cervicalgia (principal); M54.40 Lumbago with sciatica, unspecified side; G89.29 Other chronic pain; M47.816 Spondylosis without myelopathy or radiculopathy, lumbar region
CPT/HCPCS: 99202; G0463

== ENCOUNTER 2023-05-27 17:35 | Emergency (ER) | payer MEDICARE, SELFPAY ==
[2023-05-27 17:35] VITALS: BP 137/89; PULSE 111; RESP 18; TEMP 36.6; O2SAT 94; BMI 27.3
--- NOTE | 2023-05-27 17:36 | ECG_ITS ---
APPROVED REPORT Exam: Resting ECG HR:99 bpm ECG Measurements Heart Rate 99 AXES MD 165 P 67 QRSd 98 QRS 72 QT 324 T 61 QTc 380 Conclusion SINUS RHYTHM NORMAL ECG UNCONFIRMED REPORT Electronically signed by : Augustine Garcias MD 05/27/2023 21:53:00
[2023-05-27 18:00] VITALS: BP 126/89; PULSE 90; O2SAT 96
--- NOTE | 2023-05-27 18:25 | PC.NURSE ---
PT RESTING IN BED GIVEN A WATER,CALL LIGHT AT BS
--- NOTE | 2023-05-27 18:51 | XR_ITS ---
PROCEDURE INFORMATION: Exam: XR Chest Exam date and time: 05/27/2023 6:57 PM Age: 53 years old Clinical indication: Dyspnea TECHNIQUE: Imaging protocol: Radiologic exam of the chest. Views: 1 view. COMPARISON: CR XR CHEST 2V 04/13/2023 4:26 PM FINDINGS: Lungs: Unremarkable. No consolidation. Pleural spaces: Unremarkable. No pleural effusion. No pneumothorax. Heart/Mediastinum: Unremarkable. No cardiomegaly. Bones/joints: Unremarkable. Old right-sided rib fractures. No acute fracture identified. IMPRESSION: No acute findings.
--- NOTE | 2023-05-27 18:53 | [facility].EDCP ---
Discharge Plan Disposition Patient Disposition: Home, Self-Care Prescriptions Prescriptions: New benzonatate 100 mg capsule 100 mg PO TID PRN (Reason: cough) 5 Days Qty: 20 0RF albuterol sulfate 90 mcg/actuation HFA aerosol inhaler 4 inh inhalation Q4H PRN (Reason: shortness of breath or wheezing) Qty: 8.5 0RF Rx Instructions: 4 puffs every 4 hours for 48 hours then as needed for shortness of breath or wheezing following amoxicillin-pot clavulanate 875-125 mg tablet 1 tab PO BID 5 Days Qty: 10 0RF No Action ropinirole 1 mg tablet 1 mg PO HS Rx Instructions: administer 1-3 hours before bedtime duloxetine 60 mg capsule,delayed release(DR/EC) 60 mg PO DAILY beclomethasone dipropionate 40 mcg/actuation HFA aerosol breath activated 1 inh inhalation BID Qty: 10.6 2RF cariprazine 1.5 mg capsule 3 mg PO DAILY 30 Days Qty: 60 2RF phenytoin sodium extended 100 mg capsule See Rx Instructions .ROUTE .COMPLEX Qty: 150 10RF Dose Instruction: TAKE TWO CAPSULES BY MOUTH IN THE MORNING AND TAKE THREE CAPSULES IN THE EVENING Rx Instructions: TAKE TWO CAPSULES BY MOUTH IN THE MORNING AND TAKE THREE CAPSULES IN THE EVENING ipratropium-albuterol 0.5 mg-3 mg(2.5 mg base)/3 mL solution for nebulization See Rx Instructions .ROUTE .COMPLEX Qty: 180 10RF Dose Instruction: INHALE THE CONTENTS OF 1 VIAL VIA NEBULIZER EVERY 8 HOURS NEEDED FOR SHORTNESS OF BREATH OR wheezing Rx Instructions: INHALE THE CONTENTS OF 1 VIAL VIA NEBULIZER EVERY 8 HOURS NEEDED FOR SHORTNESS OF BREATH OR wheezing atorvastatin 40 mg tablet See Rx Instructions .ROUTE .COMPLEX Qty: 90 3RF Dose Instruction: TAKE ONE TABLET BY MOUTH EVERY DAY Rx Instructions: TAKE ONE TABLET BY MOUTH EVERY DAY semaglutide 3 mg tablet 3 mg PO DAILY 30 Days Qty: 30 0RF esomeprazole magnesium 40 mg capsule,delayed release(DR/EC) See Rx Instructions .ROUTE .COMPLEX Qty: 90 2RF Dose Instruction: TAKE ONE CAPSULE BY MOUTH EVERY DAY FOR gerd Rx Instructions: TAKE ONE CAPSULE BY MOUTH EVERY DAY FOR gerd olanzapine 5 mg tablet 5 mg PO HS Qty: 30 0RF Referrals Follow up/Referrals: Provider,Referral, MD [Primary Care Provider] - See instructions Clinical Impressions Clinical Impression: Chest pain, Acute exacerbation of chronic obstructive pulmonary disease Discharge ED Provider: Kaylin Chen General Chief Complaint: Chest Pain Stated Complaint: chest pain Time Seen by Provider: 05/27/23 18:47 Mode of Arrival: Ambulatory Source of Information: Patient Limitations: No Limitations Description of Symptoms (Recalled from ER Triage Doc. by RN): Patient states he began having sharp pain under his left breast. History of Present Illness HPI narrative: Patient is a 53-year-old male with a history of COPD presents today with pain under his left breast. States it started suddenly about 3 to 4 hours ago. Has had an increased cough wheezing sputum production of last several days. States that this is worse with inspiration and cough. No fevers or chills. Denies any exertional component to this denies any radiation denies any diaphoresis. No history of coronary disease that he is aware of. Related Data Home Medications Medication Instructions Recorded Confirmed duloxetine 60 mg capsule,delayed 60 mg PO DAILY 03/24/23 05/12/23 release ropinirole 1 mg tablet 1 mg PO HS 03/24/23 05/12/23 Previous Rx's Medication Instructions Recorded phenytoin sodium extended 100 mg See Rx Instructions .Route 11/04/22 capsule .COMPLEX #150 caps ipratropium 0.5 mg-albuterol 3 mg See Rx Instructions .Route 01/29/23 (2.5 mg base)/3 mL nebulization .COMPLEX #180 mL soln atorvastatin 40 mg tablet See Rx Instructions .Route 02/03/23 .COMPLEX #90 tabs beclomethasone dipropionate 40 1 inh inhalation BID #10.6 grams 03/24/23 mcg/actuation HFA breath activated aerosol cariprazine 1.5 mg capsule 3 mg PO DAILY 30 days #60 caps 03/28/23 semaglutide 3 mg tablet 3 mg PO DAILY 30 days #30 tabs 03/31/23 esomeprazole magnesium 40 mg See Rx Instructions .Route 05/05/23 capsule,delayed release .COMPLEX #90 caps olanzapine 5 mg tablet 5 mg PO HS #30 tabs 05/19/23 albuterol sulfate 90 mcg/actuation 4 inh inhalation Q4H PRN shortness 05/27/23 aerosol inhaler of breath or wheezing #8.5 grams amoxicillin 875 mg-potassium 1 tab PO BID 5 days #10 tabs 05/27/23 clavulanate 125 mg tablet benzonatate 100 mg capsule 100 mg PO TID PRN cough 5 days #20 05/27/23 caps Allergies Allergy/AdvReac Type Severity Reaction Status Date / Time alprazolam [From Xanax] Allergy Verified 05/26/23 09:59 fluoxetine [From Prozac] Allergy Verified 05/26/23 09:59 [facility] Disclaimer: The information contained in this section may have been updated after the patient was seen, as this information can be updated by other users. 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 Acute bacterial sinusitis Anxiety Asthma Chronic obstructive pulmonary disease We will follow this for now. He does have albuterol MDIs. Depression GERD (gastroesophageal reflux disease) Hepatitis B We will re-check this and send him to Dr. Casas. As mentioned above patient was supposed sees Dr. Casas for his hepatitis B. Will send him. HLD (hyperlipidemia) HTN (hypertension), benign Influenza A Migraine Nasal polyp Pharyngitis Pneumonia Schizophrenia Seizure disorder As mentioned we will refer to Dr. Deng as soon as possible. Aramis is doing much better on his phenytoin at 2 tablets in the morning 3 tablets in the evening. He was only taking 2 tablets a day. His phenytoin levels were extremely low. We will repeat those today but he states he is back on the twice daily dosing as originally prescribed. Upper respiratory infection 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 H/O arthroscopy of right knee H/O vasectomy History of arthroscopy of left shoulder History of arthroscopy of right shoulder Hx of tonsillectomy Family History Other Cancer 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 Smoking Status: Current every day smoker tobacco type: cigarettes packs per day: 1 second hand exposure: No alcohol intake: never substance use type: former substance user, marijuana and methamphetamine current occupational status: unemployed Travel in the last 8 weeks: None household members: other housing: house number of children: 2 current occupational exposures/hazards: No caffeine: Yes ROS Obtained: Yes All systems reviewed & no additional complaints except as documented Physical Exam General General appearance: alert Chest Chest inspection: Present normal inspection and symmetric chest wall rise Respiratory Respiratory exam: Present normal lung sounds bilaterally and respiratory distress Cardiovascular Cardiovascular exam: Present regular rate and normal rhythm Neurological Exam Neurological exam: Present alert HEART Score HEART Score HEART Score assessment performed?: Yes History (anamnesis): Slightly suspicious ECG: Normal Age: 45-65 years Risk factors: 1-2 risk factors Troponin: </= normal limit HEART Score: 2 Critical Care Critical Care Time Critical Care Time: No Medical Decision Making Krishna Inquiry Pt receiving controlled substance: No Vital Signs Vital Signs: 05/27/23 17:35 05/27/23 18:00 Temperature 97.9 F Temperature Source Oral Pulse Rate 90 Pulse Rate [Radial] 111 H Respiratory Rate 18 Blood Pressure 126/89 Blood Pressure [Right Arm] 137/89 Blood Pressure Mean [Right Arm] 105 Blood Pressure Source [Right Arm] Automatic Cuff Blood Pressure Position [Right Arm] Sitting 02 Sat by Pulse Oximetry 94 L 96 Oxygen Delivery Method Room Air Room Air Lab Data Lab results reviewed: Yes I reviewed the patient's lab results. Labs: Lab Results 05/27/23 17:40: WBC 6.8, RBC 4.58 L, Hgb 15.9, Hct 45.1, MCV 98.5 H, MCH 34.7 H, MCHC 35.3, RDW 14.1, Plt Count 174, MPV 9.3, Neut % (Auto) 41.3, Lymph % (Auto) 41.9, Wheeler % (Auto) 8.2, Eos % (Auto) 7.3, Baso % (Auto) 1.3, Neut # (Auto) 2.8, Lymph # (Auto) 2.9, Wheeler # (Auto) 0.6, Eos # (Auto) 0.5 H, Baso # (Auto) 0.1, D-Dimer 0.40, Sodium 143, Potassium 3.9, Chloride 106, Carbon Dioxide 30, Anion Gap 10.9, BUN 14, Creatinine 1.30 H, Estimated Creat Clear 78, Estimated GFR 58 L, Est GFR ( Amer) 70, Glucose 111 H, Calcium 8.9, Total Bilirubin 0.3, AST 37, ALT 36, Alkaline Phosphatase 86, Troponin I < 0.01, Total Protein 6.9, Albumin 4.1, Globulin 2.8, Albumin/Globulin Ratio 1.5 05/27/23 17:40 05/27/23 17:40 Response Orders (Tests/Meds): ED MEDICATIONS Generic Name Dose Route Start Last Admin Trade Name Freq PRN Reason Stop Dose Admin Sodium Chloride 10 ml 05/27/23 17:43 Sodium Chloride 0.9% 10ml Flush Syringe IV 06/26/23 17:42 NEEDED PRN Maintain IV Site Discontinued Medications Generic Name Dose Route Start Last Admin Trade Name Freq PRN Reason Stop Dose Admin Albuterol/Ipratropium 3 ml 05/27/23 18:51 05/27/23 19:24 Ipratropium/Albuterol 3 Ml Neb IH 05/27/23 18:52 3 ml ONCE ONE Administration Dexamethasone Sodium Phosphate 10 mg 05/27/23 18:51 05/27/23 19:24 Dexamethasone 4mg/Ml 1ml Vial IV 05/27/23 18:52 10 mg ONCE ONE Administration Ketorolac Tromethamine 15 mg 05/27/23 18:51 05/27/23 19:24 Ketorolac 30mg/Ml Vial IV 05/27/23 18:52 15 mg ONCE ONE Administration ORDERS Category Date Time Status CXR --portable [XR chest portable] Stat Exams 05/27/23 18:51 Completed CBC w/Auto Diff [Complete Blood Count Auto Diff] Stat Lab 05/27/23 17:40 Completed CMP [Comprehensive Metabolic Panel] Stat Lab 05/27/23 17:40 Completed D-Dimer Stat Lab 05/27/23 17:40 Completed Rapid PCR Covid and Flu A/B Stat Lab 05/27/23 19:42 Received Trop I [Troponin I] Stat Lab 05/27/23 17:40 Completed Troponin I Q3H Lab 05/27/23 22:00 Ordered Troponin I Q3H Lab 05/28/23 01:00 Ordered ECG Data Tracing #1: Attestation: I reviewed this ECG and interpreted as documented below: ECG Narrative: Sinus rhythm of 99 no acute ischemic changes noted no significant conduction abnormalities there is normal axis MDM Narrative Medical Decision Narrative: Is a well-appearing 53-year-old male presenting today with chest pain but also with cough wheezing sputum production consistent with a COPD exacerbation. Pain is most likely musculoskeletal in nature EKG is nonischemic we will get a single troponin treat him for COPD exacerbation with steroids and nebs will obtain an x-ray to rule out any type of consolidation or pneumonia. Additionally given Toradol for what appears to be musculoskeletal chest pain likely associated with coughing. I will reassess after this initial workup is complete. Chest x-ray performed which I first interpreted shows no acute cardiopulmonary emergency. Abs unremarkable including troponin and D-dimer. Reassessment at 8:10 PM patient feeling much better specifically after the breathing treatment. At this point I suspect this is a COPD exacerbation with musculoskeletal chest wall pain. He has been prescribed an inhaler as well as benzonatate and Augmentin to further treat his symptoms and has been advised about the primary care doctor return with any worsening symptoms.
[2023-05-27 19:04] LABS: Basophils # 0.1 K/mm3 (0-0.2); Basophils % 1.3 % (0.1-2.0); Eosinophils # 0.5 K/mm3 (0.0-0.4); Eosinophils % 7.3 % (0.1-12.0); Hematocrit 45.1 % (42.0-52.0); Hemoglobin 15.9 g/dL (14.1-18.0); Lymphocytes # 2.9 K/mm3 (0.7-4.5); Lymphocytes % 41.9 % (10-50); Mean Corpuscular HGB Conc 35.3 g/dL (31.8-35.4); Mean Corpuscular Hemoglobin 34.7 pg (27.0-31.2); Mean Corpuscular Volume 98.5 fl (80-94); Mean Platelet Volume 9.3 fl (7.4-10.4); Monocytes # 0.6 K/mm3 (0.1-1.0); Monocytes % 8.2 % (1.7-9.3); Neutrophils # 2.8 K/mm3 (1.8-7.8); Neutrophils % 41.3 % (37.0-80.0); Platelet Count 174 K/mm3 (142-424); Red Blood Count 4.58 M/mm3 (4.60-6.20); Red Cell Distribution Width 14.1 % (11.5-17.5); White Blood Count 6.8 K/mm3 (4.8-10.8)
[2023-05-27 19:10] LABS: Alanine Aminotransferase 36 U/L (12-78); Albumin Level 4.1 g/dl (3.5-5.0); Albumin/Globulin Ratio 1.5 (1.1-1.8); Alkaline Phosphatase 86 U/L (38-126); Anion Gap 10.9 mEq/L (5-15); Aspartate Amino Transferase 37 U/L (17-59); Bilirubin,Total 0.3 mg/dl (0.2-1.3); Blood Urea Nitrogen 14 mg/dl (9-20); Calcium 8.9 mg/dl (8.4-10.2); Carbon Dioxide 30 mmol/L (22.0-30.0); Chloride 106 mmol/L (98-107); Creatinine Clearance Estimated 78 mL/min (50-200); Estimated Glomerular Filt Rate 58 ml/min (>60); GFR (African American) 70 ML/MIN (>60); Globulin 2.8 g/dL (1.3-3.2); Glucose 111 mg/dl (74-100); Potassium 3.9 mmoL/L (3.5-5.1); Sodium 143 mmol/L (136-145); Total Protein,Serum 6.9 g/dl (6.3-8.2)
--- NOTE | 2023-05-27 19:12 | PC.NURSE ---
Rounded on patient, patient provided with a bottle of water at this time.
[2023-05-27 19:23] LABS: Troponin I < 0.01 ng/ml (0.00-0.034)
[2023-05-27] MEDS: DEXAMETHASONE 4MG/ML 1ML VIAL 10 MG IV (19:24)
[2023-05-27] MEDS: KETOROLAC 30MG/ML VIAL 15 MG IV (19:24)
[2023-05-27] MEDS: IPRATROPIUM/ALBUTEROL 3 ML NEB IH (19:24)
[2023-05-27 20:04] LABS: Coronavirus 19, PCR Not Detected (NotDetected); Influenza A, PCR Not Detected (NotDetected); Influenza B, PCR Not Detected (NotDetected)
[2023-05-27 20:18] VITALS: BP 145/99; PULSE 86; RESP 20; TEMP 36.7; O2SAT 94
== END 2023-05-27 20:19 | disposition home or self-care (01) ==
PROVIDERS: Emergency Provider Student in an Organized Health Care Education/Training Program
DX: R07.9 Chest pain, unspecified (principal); J44.1 Chronic obstructive pulmonary disease with (acute) exacerbation; R05.9 Cough, unspecified; R06.2 Wheezing; K21.9 Gastro-esophageal reflux disease without esophagitis; E78.5 Hyperlipidemia, unspecified; I10 Essential (primary) hypertension; G40.909 Epilepsy, unspecified, not intractable, without status epilepticus; F20.9 Schizophrenia, unspecified; F17.210 Nicotine dependence, cigarettes, uncomplicated
CPT/HCPCS: 71045; 80053; 84484; 85025; 85378; 87636; 93005; 96374; 96375; 99285

== ENCOUNTER 2023-06-01 15:20 | Emergency (ER) | payer MEDICARE, SELFPAY ==
[2023-06-01 15:21] VITALS: BP 131/94; PULSE 90; RESP 15; TEMP 36.8; O2SAT 98; BMI 27.3
--- NOTE | 2023-06-01 15:27 | ECG_ITS ---
APPROVED REPORT Exam: Resting ECG HR:86 bpm ECG Measurements Heart Rate 86 AXES MO 160 P 72 QRSd 102 QRS 72 QT 332 T 50 QTc 375 Conclusion SINUS RHYTHM NORMAL ECG UNCONFIRMED REPORT Electronically signed by : Augustine Garcias MD 06/03/2023 20:14:31
--- NOTE | 2023-06-01 15:33 | ED_ITS ---
I was consulted by the AGUILAR, and we discussed the complexity of the problems being addressed. I approved the treatment and management plan for this patient's care in the emergency department, thus performing a substantive portion of the medical decision making. Kaylin Chen MD, [place], [facility] Discharge Plan Disposition Patient Disposition: Home, Self-Care Condition: Good Chief Complaint: Chest Pain Prescriptions Prescriptions: No Action ropinirole 1 mg tablet 1 mg PO HS Rx Instructions: administer 1-3 hours before bedtime duloxetine 60 mg capsule,delayed release(DR/EC) 60 mg PO DAILY beclomethasone dipropionate 40 mcg/actuation HFA aerosol breath activated 1 inh inhalation BID Qty: 10.6 2RF cariprazine 1.5 mg capsule 3 mg PO DAILY 30 Days Qty: 60 2RF phenytoin sodium extended 100 mg capsule See Rx Instructions .ROUTE .COMPLEX Qty: 150 10RF Dose Instruction: TAKE TWO CAPSULES BY MOUTH IN THE MORNING AND TAKE THREE CAPSULES IN THE EVENING Rx Instructions: TAKE TWO CAPSULES BY MOUTH IN THE MORNING AND TAKE THREE CAPSULES IN THE EVENING ipratropium-albuterol 0.5 mg-3 mg(2.5 mg base)/3 mL solution for nebulization See Rx Instructions .ROUTE .COMPLEX Qty: 180 10RF Dose Instruction: INHALE THE CONTENTS OF 1 VIAL VIA NEBULIZER EVERY 8 HOURS NEEDED FOR SHORTNESS OF BREATH OR wheezing Rx Instructions: INHALE THE CONTENTS OF 1 VIAL VIA NEBULIZER EVERY 8 HOURS NEEDED FOR SHORTNESS OF BREATH OR wheezing atorvastatin 40 mg tablet See Rx Instructions .ROUTE .COMPLEX Qty: 90 3RF Dose Instruction: TAKE ONE TABLET BY MOUTH EVERY DAY Rx Instructions: TAKE ONE TABLET BY MOUTH EVERY DAY semaglutide 3 mg tablet 3 mg PO DAILY 30 Days Qty: 30 0RF esomeprazole magnesium 40 mg capsule,delayed release(DR/EC) See Rx Instructions .ROUTE .COMPLEX Qty: 90 2RF Dose Instruction: TAKE ONE CAPSULE BY MOUTH EVERY DAY FOR gerd Rx Instructions: TAKE ONE CAPSULE BY MOUTH EVERY DAY FOR gerd olanzapine 5 mg tablet 5 mg PO HS Qty: 30 0RF benzonatate 100 mg capsule 100 mg PO TID PRN (Reason: cough) 5 Days Qty: 20 0RF albuterol sulfate 90 mcg/actuation HFA aerosol inhaler 4 inh inhalation Q4H PRN (Reason: shortness of breath or wheezing) Qty: 8.5 0RF Rx Instructions: 4 puffs every 4 hours for 48 hours then as needed for shortness of breath or wheezing following amoxicillin-pot clavulanate 875-125 mg tablet 1 tab PO BID 5 Days Qty: 10 0RF Referrals Follow up/Referrals: Provider,Referral, [Primary Care Provider] - See instructions Activity Restrictions/Add. Instructions Additional Instructions/Restrictions: Please utilize your nebulizers especially your DuoNeb as prescribed. Please call tomorrow and make an appointment with your PCP for follow-up this week. If you are having difficulty understanding how to utilize your DuoNeb and and nebulizer machine please take them with you to your appointment to discuss with your primary care doctor Clinical Impressions Clinical Impression: Acute exacerbation of chronic obstructive pulmonary disease Chest pain Qualifiers: Chest pain type: chest pain on breathing Qualified Code(s): R07.1 - Chest pain on breathing Discharge ED Provider: Kaylin Chen HPI <NANETTE Arnold - Last Filed: 06/01/23 18:08> General Chief Complaint: Chest Pain Stated Complaint: PAIN Time Seen by Provider: 06/01/23 15:33 Mode of Arrival: EMS Source of Information: Patient Limitations: No Limitations Description of Symptoms (Recalled from ER Triage Doc. by RN): pt presents to ED with c/o chest pain. pt reports ongoing pain located under the left breast for 1 month. History of Present Illness HPI narrative: Patient is a 53-year-old male presents the emergency department for evaluation of chest pain. Patient states that he has had chest pain intermittently but never completely absent for approximately 1 month. Patient was seen here on 05/27/2023 for similar complaints and was diagnosed with a COPD exacerbation and discharged with antibiotics and Tessalon Perles. Patient states today that he was sitting on the porch with a friend when he started having worsening of chest pain that is located under the left breast. Pain does not radiate. Patient has no diaphoresis nausea vomiting headache visual changes shortness of breath fever chills hemoptysis hematochezia melena hematemesis. Related Data Home Medications Medication Instructions Recorded Confirmed duloxetine 60 mg capsule,delayed 60 mg PO DAILY 03/24/23 05/12/23 release ropinirole 1 mg tablet 1 mg PO HS 03/24/23 05/12/23 Previous Rx's Medication Instructions Recorded phenytoin sodium extended 100 mg See Rx Instructions .Route 07/24/23 capsule .COMPLEX #150 caps ipratropium 0.5 mg-albuterol 3 mg See Rx Instructions .Route 01/29/23 (2.5 mg base)/3 mL nebulization .COMPLEX #180 mL soln atorvastatin 40 mg tablet See Rx Instructions .Route 02/03/23 .COMPLEX #90 tabs beclomethasone dipropionate 40 1 inh inhalation BID #10.6 grams 03/24/23 mcg/actuation HFA breath activated aerosol cariprazine 1.5 mg capsule 3 mg PO DAILY 30 days #60 caps 03/28/23 semaglutide 3 mg tablet 3 mg PO DAILY 30 days #30 tabs 03/31/23 esomeprazole magnesium 40 mg See Rx Instructions .Route 05/05/23 capsule,delayed release .COMPLEX #90 caps olanzapine 5 mg tablet 5 mg PO HS #30 tabs 05/19/23 albuterol sulfate 90 mcg/actuation 4 inh inhalation Q4H PRN shortness 05/27/23 aerosol inhaler of breath or wheezing #8.5 grams amoxicillin 875 mg-potassium 1 tab PO BID 5 days #10 tabs 05/27/23 clavulanate 125 mg tablet benzonatate 100 mg capsule 100 mg PO TID PRN cough 5 days #20 05/27/23 caps Allergies Allergy/AdvReac Type Severity Reaction Status Date / Time alprazolam [From Xanax] Allergy Verified 05/26/23 09:59 fluoxetine [From Prozac] Allergy Verified 05/26/23 09:59 [facility] <NANETTE Arnold - Last Filed: 06/01/23 18:08> [facility] Disclaimer: The information contained in this section may have been updated after the patient was seen, as this information can be updated by other users. 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 Acute bacterial sinusitis Anxiety Asthma Chronic obstructive pulmonary disease We will follow this for now. He does have albuterol MDIs. Depression GERD (gastroesophageal reflux disease) Hepatitis B We will re-check this and send him to Dr. Casas. As mentioned above patient was supposed sees Dr. Casas for his hepatitis B. Will send him. HLD (hyperlipidemia) HTN (hypertension), benign Influenza A Migraine Nasal polyp Pharyngitis Pneumonia Schizophrenia Seizure disorder As mentioned we will refer to Dr. Deng as soon as possible. Aramis is doing much better on his phenytoin at 2 tablets in the morning 3 tablets in the evening. He was only taking 2 tablets a day. His phenytoin levels were extremely low. We will repeat those today but he states he is back on the twice daily dosing as originally prescribed. Upper respiratory infection 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 H/O arthroscopy of right knee H/O vasectomy History of arthroscopy of left shoulder History of arthroscopy of right shoulder Hx of tonsillectomy Family History Other Cancer 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 Smoking Status: Current every day smoker tobacco type: cigarettes packs per day: 1 second hand exposure: No alcohol intake: never substance use type: former substance user, marijuana and methamphetamine current occupational status: unemployed Travel in the last 8 weeks: None household members: other housing: house number of children: 2 current occupational exposures/hazards: No caffeine: Yes <NANETTE Arnold - Last Filed: 06/01/23 18:08> ROS Obtained: Yes Systems reviewed as appropriate & no additional complaints except as documented Physical Exam <NANETTE Arnold - Last Filed: 06/01/23 18:08> Narrative Physical exam: Patient is a well-nourished well-developed 53-year-old gentleman who is currently in no acute distress General General appearance: alert and in no apparent distress Head Head exam: atraumatic and normal inspection Eye Eye exam: Present normal appearance, PERRL and EOMI ENT ENT exam: Present normal exam, normal oropharynx and mucous membranes moist Neck Neck exam: Present normal inspection, full ROM and trachea midline; Absent lymphadenopathy Chest Chest inspection: Present normal inspection, symmetric chest wall rise and tenderness (To palpation in the left anterior chest and anterior axillary line at the nipple level) Respiratory Respiratory exam: Present normal lung sounds bilaterally; Absent accessory muscle use Cardiovascular Cardiovascular exam: Present regular rate, normal rhythm, normal heart sounds, +S1 and +S2 Abdominal Exam Abdominal exam: Present soft and normal bowel sounds; Absent tenderness, guarding or rebound Extremities Exam Extremities exam: Present normal inspection and full ROM Neurological Exam Neurological exam: Present alert, oriented X3 and CN II-XII intact Psychiatric Psychiatric exam: Present normal affect and normal mood Skin Skin exam: Present warm, dry and normal color Lymphatic Lymphatic Findings: no adenopathy HEART Score <NANETTE Arnold - Last Filed: 06/01/23 18:08> HEART Score HEART Score assessment performed?: Yes History (anamnesis): Slightly suspicious ECG: Normal Age: 45-65 years Risk factors: 1-2 risk factors Troponin: </= normal limit HEART Score: 2 Critical Care <NANETTE Arnold - Last Filed: 06/01/23 18:08> Critical Care Time Critical Care Time: No Medical Decision Making <NANETTE Arnold - Last Filed: 06/01/23 18:08> Medical Records Medical records reviewed: Yes I reviewed the patient's medical records. Krishna Inquiry Pt receiving controlled substance: No Vital Signs Vital Signs: 06/01/23 15:21 06/01/23 16:00 Temperature 98.2 F Temperature Source Oral Pulse Rate 86 Pulse Rate [Left Radial] 90 Respiratory Rate 15 Blood Pressure 129/82 Blood Pressure [Right Arm] 131/94 H Blood Pressure Mean [Right Arm] 106 02 Sat by Pulse Oximetry 98 93 L Oxygen Delivery Method Room Air Room Air Lab Data Lab results reviewed: Yes I reviewed the patient's lab results. Labs: Lab Results 06/01/23 15:25: WBC 10.0, RBC 4.77, Hgb 16.3, Hct 47.5, MCV 99.4 H, MCH 34.2 H, MCHC 34.4, RDW 14.0, Plt Count 192, MPV 8.7, Neut % (Auto) 40.2, Lymph % (Auto) 41.1, Winston % (Auto) 8.8, Eos % (Auto) 8.7, Baso % (Auto) 1.3, Neut # (Auto) 4.0, Lymph # (Auto) 4.1, Winston # (Auto) 0.9, Eos # (Auto) 0.9 H, Baso # (Auto) 0.1, D- Dimer 0.34, Sodium 135 L, Potassium 4.3, Chloride 104, Carbon Dioxide 28, Anion Gap 7.3, BUN 18, Creatinine 1.10, Estimated Creat Clear 92, Estimated GFR 71, Est GFR ( Amer) 85, Glucose 99, Calcium 8.7, Troponin I < 0.01 06/01/23 15:25 06/01/23 15:25 Response Orders (Tests/Meds): ED MEDICATIONS Discontinued Medications Generic Name Dose Route Start Last Admin Trade Name Sixtoq PRN Reason Stop Dose Admin Albuterol/Ipratropium 3 ml 06/01/23 16:51 Ipratropium/Albuterol 3 Ml Neb IH 06/01/23 16:52 ONCE ONE ORDERS Category Date Time Status BMP [Basic Metabolic Panel] Stat Lab 06/01/23 15:25 Completed CBC w/Auto Diff [Complete Blood Count Auto Diff] Stat Lab 06/01/23 15:25 Completed D-Dimer Stat Lab 06/01/23 15:25 Completed Trop I [Troponin I] Stat Lab 06/01/23 15:25 Completed Troponin I Q3H Lab 06/01/23 19:45 Ordered Troponin I Q3H Lab 06/01/23 22:45 Ordered MDM Narrative Medical Decision Narrative: In summary patient is a 53-year-old male who presents to the emergency department for evaluation of chest pain. Patient is hemodynamically stable upon arrival, and afebrile. Physical exam shows chest pain in the left anterior chest that has some reproducible component to palpation. Patient also reports cough and states that chest discomfort is more pronounced with cough. Breath sounds are clear to auscultation bilaterally with no adventitious sounds.. Differential diagnosis includes ACS versus atypical chest pain versus noncardiac chest pain versus possible COPD versus possible. Initial workup will be conducted with hematologic labs twelve-lead EKG, chest x-ray. Initial interventions include DuoNeb. Initial workup reviewed by me showed a undetectable troponin and the remainder of his laboratory investigations were nonactionable. Upon repeat evaluation at improvement of not only his cough but chest pain with cough. Given this appropriate for discharge at this time instructions to utilize his inhalers and DuoNeb as prescribed. Patient to follow-up with PCP this week or return to ER for worsening symptoms <Kaylin Chen MD - Last Filed: 06/01/23 15:38> Vital Signs Vital Signs: 06/01/23 15:21 06/01/23 16:00 Temperature 98.2 F Temperature Source Oral Pulse Rate 86 Pulse Rate [Left Radial] 90 Respiratory Rate 15 Blood Pressure 129/82 Blood Pressure [Right Arm] 131/94 H Blood Pressure Mean [Right Arm] 106 02 Sat by Pulse Oximetry 98 93 L Oxygen Delivery Method Room Air Room Air Lab Data Labs: Lab Results 06/01/23 15:25: WBC 10.0, RBC 4.77, Hgb 16.3, Hct 47.5, MCV 99.4 H, MCH 34.2 H, MCHC 34.4, RDW 14.0, Plt Count 192, MPV 8.7, Neut % (Auto) 40.2, Lymph % (Auto) 41.1, Winston % (Auto) 8.8, Eos % (Auto) 8.7, Baso % (Auto) 1.3, Neut # (Auto) 4.0, Lymph # (Auto) 4.1, Winston # (Auto) 0.9, Eos # (Auto) 0.9 H, Baso # (Auto) 0.1, D-Dimer 0.34, Sodium 135 L, Potassium 4.3, Chloride 104, Carbon Dioxide 28, Anion Gap 7.3, BUN 18, Creatinine 1.10, Estimated Creat Clear 92, Estimated GFR 71, Est GFR ( Amer) 85, Glucose 99, Calcium 8.7, Troponin I < 0.01 Response Orders (Tests/Meds): ED MEDICATIONS Discontinued Medications Generic Name Dose Route Start Last Admin Trade Name Freq PRN Reason Stop Dose Admin Albuterol/Ipratropium 3 ml 06/01/23 16:51 Ipratropium/Albuterol 3 Ml Neb 06/01/23 16:52 ONCE ONE ORDERS Category Date Time Status BMP [Basic Metabolic Panel] Stat Lab 06/01/23 15:25 Completed CBC w/Auto Diff [Complete Blood Count Auto Diff] Stat Lab 06/01/23 15:25 Completed D-Dimer Stat Lab 06/01/23 15:25 Completed Trop I [Troponin I] Stat Lab 06/01/23 15:25 Completed Troponin I Q3H Lab 06/01/23 19:45 Ordered Troponin I Q3H Lab 06/01/23 22:45 Ordered ECG Data Tracing #1: Attestation: I reviewed this ECG and interpreted as documented below: ECG Narrative: Personally interpreted this showed a ventricular rate of 86 normal axis no acute ischemic changes noted no significant conduction abnormalities
[2023-06-01 16:00] VITALS: BP 129/82; PULSE 86; O2SAT 93
[2023-06-01 16:03] LABS: D-Dimer 0.34 ug/mL (0.0-0.5)
[2023-06-01 16:54] LABS: Chloride 104 mmol/L (98-107)
[2023-06-01 16:55] LABS: Potassium 4.3 mmoL/L (3.5-5.1); Sodium 135 mmol/L (136-145)
[2023-06-01 16:58] LABS: Anion Gap 7.3 mEq/L (5-15); Basophils # 0.1 K/mm3 (0-0.2); Basophils % 1.3 % (0.1-2.0); Blood Urea Nitrogen 18 mg/dl (9-20); Calcium 8.7 mg/dl (8.4-10.2); Carbon Dioxide 28 mmol/L (22.0-30.0); Creatinine Clearance Estimated 92 mL/min (50-200); Eosinophils # 0.9 K/mm3 (0.0-0.4); Eosinophils % 8.7 % (0.1-12.0); Estimated Glomerular Filt Rate 71 ml/min (>60); GFR (African American) 85 ML/MIN (>60); Glucose 99 mg/dl (74-100); Hematocrit 47.5 % (42.0-52.0); Hemoglobin 16.3 g/dL (14.1-18.0); Lymphocytes # 4.1 K/mm3 (0.7-4.5); Lymphocytes % 41.1 % (10-50); Mean Corpuscular HGB Conc 34.4 g/dL (31.8-35.4); Mean Corpuscular Hemoglobin 34.2 pg (27.0-31.2); Mean Corpuscular Volume 99.4 fl (80-94); Mean Platelet Volume 8.7 fl (7.4-10.4); Monocytes # 0.9 K/mm3 (0.1-1.0); Monocytes % 8.8 % (1.7-9.3); Neutrophils % 40.2 % (37.0-80.0); Platelet Count 192 K/mm3 (142-424); Red Blood Count 4.77 M/mm3 (4.60-6.20)
[2023-06-01] MEDS: IPRATROPIUM/ALBUTEROL 3 ML NEB IH (17:00)
[2023-06-01 17:10] LABS: Troponin I < 0.01 ng/ml (0.00-0.034)
[2023-06-01 18:20] VITALS: BP 133/79; PULSE 81; PULSE 84; RESP 16; TEMP 36.7
== END 2023-06-01 18:21 | disposition home or self-care (01) ==
PROVIDERS: Physician Assistant; Emergency Provider Student in an Organized Health Care Education/Training Program
DX: J44.1 Chronic obstructive pulmonary disease with (acute) exacerbation (principal); R07.9 Chest pain, unspecified; K21.9 Gastro-esophageal reflux disease without esophagitis; B16.9 Acute hepatitis B without delta-agent and without hepatic coma; E78.5 Hyperlipidemia, unspecified; I10 Essential (primary) hypertension; G40.909 Epilepsy, unspecified, not intractable, without status epilepticus; F20.9 Schizophrenia, unspecified; F17.210 Nicotine dependence, cigarettes, uncomplicated
CPT/HCPCS: 80048; 84484; 85025; 85378; 93005; 99285

== ENCOUNTER 2023-06-24 13:04 | Day surgery (SDC) | payer MEDICARE, BC, SELFPAY ==
[2023-06-24 13:15] VITALS: BP 145/79; PULSE 66; RESP 18; O2SAT 98; BMI 28.1
[2023-06-24 13:27] VITALS: BP 137/85; PULSE 58; PULSE 65; RESP 18; O2SAT 97
[2023-06-24] MEDS: BUPIVACAINE 0.25% 10ML INJ 25 MG IJ (13:28)
[2023-06-24] MEDS: LIDOCAINE 1% 5ML PF VIAL 5 ML (13:28)
[2023-06-24] MEDS: methylPREDNISolone ACETATE 80MG/ML VIAL 80 MG (13:28)
[2023-06-24 13:35] VITALS: BP 158/98; PULSE 76; RESP 18; O2SAT 98
--- NOTE | 2023-06-24 13:42 | XR_ITS ---
FINAL REPORT CLINICAL HISTORY: left knee pain FINDINGS: Left knee Three views were obtained. There is no acute fracture or dislocation. The joint spaces appear normal. There is a loose body posteriorly. Mild vascular calcification is identified. IMPRESSION: Posterior loose body. Reviewed, Interpreted and Dictated by Evgeny Rosales III, MD Transcribed by Mishel Lutz Authenticated and [facility]
--- NOTE | 2023-06-24 13:58 | P.PCN_ITS ---
Procedure Date: 06/24/23 Time: 13:00 Anesthesiologist:: Rasta Joseph CRNA Complications:: None Pre-procedure Diagnosis:: Degenerative disc lumbar spine multilevels. Lumbar radiculopathy. Lumbar spondylosis. Multilevel lumbar facet arthropathy. Post-procedure Diagnosis:: Same. Indications for Procedure:: Patient is a pleasant 53-year-old male comes our clinic today for bilateral lumbar medial branch block/facet injection L3-4, L4-5. Patient reports difficulty sitting or standing for any length of time. Patient has difficulty with lumbar flexion extension, right and left rotation. He rates his pain 7/10. Procedure Details:: Informed consent was obtained and the risk and benefits of the procedure was explained to the patient. Patient was taken to the procedure room where noninvasive monitors were placed, including noninvasive blood pressure cuff as well as pulse oximeter. The area over the lumbar spine was cleansed using chlorhexidine as a cleansing solution. I anesthetized the skin and subcutaneous tissues with 1% Lidocaine. I placed 22-gauge spinal needles into the facet joint/ medial branches of [L3-L4, L4-L5 bilaterally. Needle placement was confirmed with fluoroscopy. After confirmation of needle placement, each site was injected with 1 mL of 1% lidocaine and 0.25 % Marcaine and 10 mg of Depo- Medrol. A total of 80 mg of depo medrol was used for bilateral medial branch blocks of [L3-L4, L4-L5 bilaterally. Patient tolerated the procedure without difficulty. There were no complications. Plan and Disposition:: Patient was discharged without incident.
== END 2023-06-24 13:35 | disposition home or self-care (01) ==
LOC: SC.PAINP 13:05
PROVIDERS: PCP Internal Medicine; Visit Provider Nurse Anesthetist, Certified Registered
DX: M47.816 Spondylosis without myelopathy or radiculopathy, lumbar region (principal)
CPT/HCPCS: 64493; 64494; 73562; J1010

== ENCOUNTER 2023-07-03 18:55 | Outpatient (CLI) | payer MEDICARE, SELFPAY ==
[2023-07-03 20:09] LABS: Prostate Specific Ag, Diagnost 0.752 ng/ml (0.0-4.0)
== END 2023-07-03 23:59 ==
LOC: LAB.DROPOF 18:55
PROVIDERS: Visit Provider Family Medicine
DX: N40.0 Benign prostatic hyperplasia without lower urinary tract symptoms (principal); Z12.5 Encounter for screening for malignant neoplasm of prostate
CPT/HCPCS: 84153

== ENCOUNTER 2023-07-09 14:23 | Outpatient (POV) | payer MEDICARE, SELFPAY ==
[2023-07-09 14:30] VITALS: BP 175/97; PULSE 97; RESP 18; O2SAT 95; BMI 28.1
--- NOTE | 2023-07-09 14:55 | EXP.PAIN.SOA ---
[facility] Pain Management SOAP Note Subjective:: Patient is a pleasant 53-year-old male who presents today for follow-up of lumbar medial branch block bilaterally L3-L4 and L4-L5 on 06/24/2023. Today he rates his pain a 0 out of 10. He does state that he would say certain times his pain does go to 2 or 3 out of 10. Patient denies any new trauma or injury. He does state that he had 100% relief following this injection for a good 24 hours. He does state that it is going back towards his baseline. Patient states that some days are worse than others. He states that the pain is not constant and the severity may or may not have decreased overall since this injection. He does state that he has a MRI coming up on the fifth of his left knee. His Krishna has been reviewed and is appropriate. Review of Systems: General: No recent weight changes, no fever, no sleep disturbances Respiratory: No cough, no shortness of air, no recurring pulmonary infections Cardiovascular/peripheral vascular: No chest pain, no palpitations, no edema, no shortness of breath Gastrointestinal: No new onset incontinence, normal bowel movements reported Genitourinary: No new onset incontinence Musculoskeletal: Low back pain Psychiatric: [Normal mood/affect] Neurological: [Denies weakness in extremities], [denies balance issues] Objective:: Physical Exam: General: Alert and oriented x3, no acute distress, pleasant and cooperative Lungs: Respirations even and unlabored, symmetrical chest expansion Eyes: PERRL Musculoskeletal: Flexion and extension of lumbar [spine] somewhat guarded secondary to pain, [antalgic gait noted] Neurological: Speech clear, no gross sensory deficit Assessment:: 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 Patient will return to clinic in 1 month for reevaluation of symptoms and plan of care. Patient has been instructed to contact the clinic with any concerns before the next appointment. Dr. Bloom has reviewed this note and agrees with this plan of care. This note was dictated using voice recognition software and make contain errors or omissions. [facility] Disclaimer: The information contained in this section may have been updated after the patient was seen, as this information can be updated by other users. 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 Acute bacterial sinusitis Pharyngitis Nasal polyp Influenza A Migraine HTN (hypertension), benign HLD (hyperlipidemia) Depression Asthma Anxiety Upper respiratory infection Pneumonia Schizophrenia Hepatitis B We will re-check this and send him to Dr. Casas. As mentioned above patient was supposed sees Dr. Casas for his hepatitis B. Will send him. Seizure disorder As mentioned we will refer to Dr. Deng as soon as possible. Aramis is doing much better on his phenytoin at 2 tablets in the morning 3 tablets in the evening. He was only taking 2 tablets a day. His phenytoin levels were extremely low. We will repeat those today but he states he is back on the twice daily dosing as originally prescribed. Chronic obstructive pulmonary disease We will follow this for now. He does have albuterol MDIs. GERD (gastroesophageal reflux disease) 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 H/O vasectomy Hx of tonsillectomy History of arthroscopy of right shoulder History of arthroscopy of left shoulder H/O arthroscopy of right knee Family History Other Cancer 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 Smoking Status: Current every day smoker tobacco type: cigarettes packs per day: 1 second hand exposure: No alcohol intake: never substance use type: former substance user, marijuana and methamphetamine current occupational status: unemployed Travel in the last 8 weeks: None household members: other housing: house number of children: 2 current occupational exposures/hazards: No caffeine: Yes
== END 2023-07-09 23:59 ==
LOC: SC.PAIN 14:23
PROVIDERS: PCP Internal Medicine; Visit Provider Nurse Practitioner Family
DX: M47.896 Other spondylosis, lumbar region (principal); M51.36 Other intervertebral disc degeneration, lumbar region
CPT/HCPCS: 99212; G0463

== ENCOUNTER 2023-07-10 13:39 | Outpatient (CLI) | payer MEDICARE, SELFPAY ==
--- NOTE | 2023-07-10 13:39 | US_ITS ---
FINAL REPORT TECHNIQUE: Ultrasound images of the testicles were obtained bilaterally. Color Doppler images were obtained. CLINICAL HISTORY: .rt test swelling FINDINGS: The testicles are normal in size and echotexture bilaterally. The right testicle measures 4.3 x 2 x 2.7 cm in size, the left testicle measures 4.2 x 2 x 2.9 cm in size. The epididymidi are unremarkable bilaterally. Numerous microcalcifications are noted in the testicles bilaterally. Arterial flow is identified bilaterally. No intratesticular masses are identified. IMPRESSION: No evidence of testicular mass or torsion. Numerous microcalcifications are present in the testicles bilaterally. Reviewed, Interpreted and Dictated by Vlad Duran MD Transcribed by Carline Madison Authenticated and [facility]
== END 2023-07-10 23:59 ==
LOC: RAD 13:39
PROVIDERS: PCP Internal Medicine; Visit Provider Family Medicine
DX: N50.819 Testicular pain, unspecified (principal)
CPT/HCPCS: 76870

== ENCOUNTER 2023-07-18 16:26 | Outpatient (CLI) | payer MEDICARE, BC, SELFPAY ==
--- NOTE | 2023-07-18 16:27 | MR_ITS ---
PROCEDURE INFORMATION: Exam: MR Left Lower Extremity Joint Without and With Contrast, Knee Exam date and time: 07/18/2023 4:28 PM Age: 53 years old Clinical indication: Patient HX: Pain in left knee , prior xrays; Additional info: 'loose body in left knee' TECHNIQUE: Imaging protocol: Magnetic resonance imaging of the left lower extremity joint without and with contrast. Exam focused on the knee. Contrast material: ISOVUE; Contrast volume: 18 ml; Contrast route: IV; COMPARISON: CR XR KNEE LT 3V 06/24/2023 1:50 PM FINDINGS: Bones/joints: A small patellofemoral joint effusion is visualized. No visualized acute marrow edema. No dislocation of the knee. No enhancing mass is identified involving the knee. Bursae: No significant Vieira cyst is visualized. Medial meniscus: A focus of increased T1 and T2 signal intensity is identified in the region of the posterior root of the medial meniscus measuring 1.0 x 0.5 x 0.4 cm. When correlated with prior radiographs, this is suggestive of meniscal calcification or meniscal ossicle. An intra-articular loose body is considered less likely. Mild myxoid degeneration of the medial meniscus. There is a tiny focus of increased PD signal intensity adjacent to the increased T1 signal intensity within the posterior root of the medial meniscus, and meniscal tear is suggested. Lateral meniscus: Minimal myxoid degeneration is identified of the lateral meniscus. A small tear is identified involving the anterior root of the lateral meniscus extending to the inferior articulating surface. Anterior cruciate ligament: Minimal increased PD signal intensity is identified between the proximal ACL and lateral femoral condyle, and partial tear cannot be excluded. Posterior cruciate ligament: No visualized tear. Medial capsule and supporting structures: Unremarkable. No tear. Lateral capsule and supporting structures: Unremarkable. No tear. Extensor mechanism of knee: Unremarkable. No tear. Soft tissues: Minimal soft tissue edema is seen anteriorly. Minimal edema is seen within Hoffa's fat. IMPRESSION: 1. A small patellofemoral joint effusion is visualized. 2. A focus of abnormal signal intensity is identified in the region of the posterior root of the medial meniscus. When correlated with prior radiographs, this is suggestive of meniscal calcification or meniscal ossicle. An intra-articular loose body is considered less likely. 3. Meniscal tear(s) visualized. 4. Additional findings described above.
[2023-07-18] MEDS: GADOTERIDOL INJ 17ML SYRINGE 18 ML IV (17:47)
[2023-07-18] MEDS: SODIUM CHLORIDE 0.9% 10ML SYR (RAD ONLY) 10 ML IV (17:47)
== END 2023-07-18 23:59 | disposition home or self-care (01) ==
LOC: RAD 16:27
PROVIDERS: PCP Internal Medicine; Visit Provider Internal Medicine
DX: R93.6 Abnormal findings on diagnostic imaging of limbs (principal)
CPT/HCPCS: 73723; A9576

== ENCOUNTER 2023-07-31 09:34 | Emergency (ER) | payer MEDICARE, SELFPAY ==
[2023-07-31 09:35] VITALS: BP 145/92; PULSE 68; RESP 13; TEMP 36.6; O2SAT 95; BMI 28.1
--- NOTE | 2023-07-31 09:35 | XR_ITS ---
FINAL REPORT TECHNIQUE: Chest PA & Lateral CLINICAL HISTORY: cough, SOA COMPARISON: 05/27/2023 FINDINGS: 2 views of the chest were performed. The heart size is normal. The mediastinum is within normal limits. There is no acute cardiopulmonary process. There are no pleural effusions. There is no pneumothorax. There is a remote right fifth rib fracture identified. This was present on the prior exam. IMPRESSION: No acute cardiopulmonary process. Reviewed, Interpreted and Dictated by Vlad Duran MD Transcribed by Carline Madison Authenticated and [facility]
--- NOTE | 2023-07-31 09:37 | ED_ITS ---
Discharge Plan Disposition Patient Disposition: Home, Self-Care Condition: Good Prescriptions Prescriptions: New doxycycline hyclate 100 mg tablet 100 mg PO BID 7 Days Qty: 14 0RF prednisone 50 mg tablet 50 mg PO DAILY 5 Days Qty: 5 0RF No Action ropinirole 1 mg tablet 1 mg PO HS Rx Instructions: administer 1-3 hours before bedtime duloxetine 60 mg capsule,delayed release(DR/EC) 60 mg PO DAILY beclomethasone dipropionate 40 mcg/actuation HFA aerosol breath activated 1 inh inhalation BID Qty: 10.6 2RF escitalopram oxalate 20 mg tablet 20 mg PO DIRECTED Patient Comments: TAKE ONE TABLET BY MOUTH EVERY DAY Vraylar 3 mg capsule 3 mg PO DAILY Qty: 90 2RF esomeprazole magnesium 40 mg capsule,delayed release(DR/EC) See Rx Instructions .ROUTE .COMPLEX Qty: 90 2RF Dose Instruction: TAKE ONE CAPSULE BY MOUTH EVERY DAY FOR gerd Rx Instructions: TAKE ONE CAPSULE BY MOUTH EVERY DAY FOR gerd olanzapine 5 mg tablet 5 mg PO HS Qty: 30 4RF semaglutide 3 mg tablet 3 mg PO DAILY 30 Days Qty: 30 4RF ciprofloxacin HCl 500 mg tablet 500 mg PO BID 10 Days Qty: 20 0RF phenytoin sodium extended 100 mg capsule See Rx Instructions .ROUTE .COMPLEX Qty: 150 10RF Dose Instruction: TAKE TWO CAPSULES BY MOUTH IN THE MORNING AND TAKE THREE CAPSULES IN THE EVENING Rx Instructions: TAKE TWO CAPSULES BY MOUTH IN THE MORNING AND TAKE THREE CAPSULES IN THE EVENING ipratropium-albuterol 0.5 mg-3 mg(2.5 mg base)/3 mL solution for nebulization See Rx Instructions .ROUTE .COMPLEX Qty: 180 10RF Dose Instruction: INHALE THE CONTENTS OF 1 VIAL VIA NEBULIZER EVERY 8 HOURS NEEDED FOR SHORTNESS OF BREATH OR wheezing Rx Instructions: INHALE THE CONTENTS OF 1 VIAL VIA NEBULIZER EVERY 8 HOURS NEEDED FOR SHORTNESS OF BREATH OR wheezing atorvastatin 40 mg tablet See Rx Instructions .ROUTE .COMPLEX Qty: 90 3RF Dose Instruction: TAKE ONE TABLET BY MOUTH EVERY DAY Rx Instructions: TAKE ONE TABLET BY MOUTH EVERY DAY fluticasone propionate [Flonase Allergy Relief] 50 mcg/actuation spray,suspension 1 spray intranasal Q12H Qty: 16 2RF Rx Instructions: 1 spray in each nostril albuterol sulfate 90 mcg/actuation HFA aerosol inhaler 4 inh inhalation Q4H PRN (Reason: shortness of breath or wheezing) Qty: 8.5 0RF Rx Instructions: 4 puffs every 4 hours for 48 hours then as needed for shortness of breath or wheezing following Referrals Follow up/Referrals: Provider,Referral, MD [Referring] - See instructions Activity Restrictions/Add. Instructions Additional Instructions/Restrictions: You were evaluated in the emergency department today. Please picker tender your prescriptions. Follow-up with your primary care provider over the next 3 days. Clinical Impressions Clinical Impression: Acute exacerbation of chronic obstructive pulmonary disease, General weakness Instructions Patient Instructions: DI for Chronic Obstructive Pulmonary Disease Discharge ED Provider: Wendy Egan General Adult HPI General Chief complaint: Shortness of Breath/Dyspnea Stated complaint: SOA Time Seen by Provider: 07/31/23 09:35 History of Present Illness HPI narrative: This patient is a 53-year-old male with history of asthma, COPD, seizure disorder, hepatitis B, hepatitis C, and tobacco use disorder presenting to the emergency department for evaluation with concern for general weakness, sinus pain/pressure, congestion, and cough. Patient reports that he thinks he either has a sinus infection, asthma, or whooping cough. He notes that he has been feeling unwell for about a week now. He states that has gotten progressively worse to the point where he slept all day yesterday and did not get out of bed. He notes he has not been eating or drinking very much because he does not have much of an appetite. He does note that he has been coughing up a lot of phlegm and has been wheezing. He states he is hurting all over, especially in his belly and back. No significant chest pain. He denies any fevers, chills, vomiting, changes in bowel movements, urinary symptoms, rashes, or swelling. He arrives by EMS who noted that he was hemodynamically stable en route. No interventions given prior to arrival. Related Data Home Medications Medication Instructions Recorded Confirmed duloxetine 60 mg capsule,delayed 60 mg PO DAILY 03/24/23 07/31/23 release ropinirole 1 mg tablet 1 mg PO HS 03/24/23 07/31/23 escitalopram oxalate 20 mg tablet 20 mg PO DIRECTED MOOD 06/20/23 07/31/23 Previous Rx's Medication Instructions Recorded phenytoin sodium extended 100 mg See Rx Instructions .Route 11/04/22 capsule .COMPLEX #150 caps ipratropium 0.5 mg-albuterol 3 mg See Rx Instructions .Route 01/29/23 (2.5 mg base)/3 mL nebulization .COMPLEX #180 mL soln atorvastatin 40 mg tablet See Rx Instructions .Route 02/03/23 .COMPLEX #90 tabs beclomethasone dipropionate 40 1 inh inhalation BID #10.6 grams 03/24/23 mcg/actuation HFA breath activated aerosol albuterol sulfate 90 mcg/actuation 4 inh inhalation Q4H PRN shortness 05/27/23 aerosol inhaler of breath or wheezing #8.5 grams cariprazine 3 mg capsule (Vraylar) 3 mg PO DAILY #90 caps 06/20/23 esomeprazole magnesium 40 mg See Rx Instructions .Route 06/20/23 capsule,delayed release .COMPLEX #90 caps olanzapine 5 mg tablet 5 mg PO HS #30 tabs 06/20/23 semaglutide 3 mg tablet 3 mg PO DAILY 30 days #30 tabs 06/20/23 ciprofloxacin HCl 500 mg tablet 500 mg PO BID 10 days #20 tabs 07/03/23 fluticasone propionate 50 1 spray intranasal Q12H #16 grams 07/23/23 mcg/actuation nasal spray,suspension (Flonase Allergy Relief) doxycycline hyclate 100 mg tablet 100 mg PO BID 7 days #14 tabs 07/31/23 prednisone 50 mg tablet 50 mg PO DAILY 5 days #5 tabs 07/31/23 Allergies Allergy/AdvReac Type Severity Reaction Status Date / Time alprazolam [From Xanax] Allergy Verified 07/03/23 13:44 fluoxetine [From Prozac] Allergy Verified 07/03/23 13:44 [facility] Disclaimer: The information contained in this section may have been updated after the patient was seen, as this information can be updated by other users. 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 Acute bacterial sinusitis Pharyngitis Nasal polyp Influenza A Migraine HTN (hypertension), benign HLD (hyperlipidemia) Depression Asthma Anxiety Upper respiratory infection Pneumonia Schizophrenia Hepatitis B Seizure disorder Chronic obstructive pulmonary disease GERD (gastroesophageal reflux disease) 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 H/O vasectomy Hx of tonsillectomy History of arthroscopy of right shoulder History of arthroscopy of left shoulder H/O arthroscopy of right knee Family History Other Cancer 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 Smoking Status: Former smoker tobacco type: cigarettes packs per day: 1 second hand exposure: No alcohol intake: never substance use type: former substance user, marijuana and methamphetamine current occupational status: unemployed Travel in the last 8 weeks: None household members: other housing: house number of children: 2 current occupational exposures/hazards: No caffeine: Yes ROS Obtained: Yes All systems reviewed & no additional complaints except as documented Physical Exam General General appearance: alert and in no apparent distress Head Head exam: atraumatic and normocephalic Eye Eye exam: Present normal appearance, PERRL and EOMI ENT ENT exam: Present normal exam, normal oropharynx, mucous membranes moist and normal external ear exam Neck Neck exam: Present normal inspection, full ROM and trachea midline; Absent tenderness Chest Chest inspection: Present normal inspection and symmetric chest wall rise; Absent tenderness Respiratory Respiratory exam: Present wheezes (Bilateral coarse wheezing); Absent respiratory distress, stridor, accessory muscle use or prolonged expiratory phase Cardiovascular Cardiovascular exam: Present regular rate and normal rhythm Abdominal Exam Abdominal exam: Present soft; Absent distention, tenderness or guarding Extremities Exam Extremities exam: Present normal inspection, full ROM and normal capillary refill; Absent tenderness or edema Back Exam Back exam: Present normal inspection and full ROM; Absent tenderness Neurological Exam Neurological exam: Present alert, oriented X3, CN II-XII intact and normal gait; Absent motor sensory deficit Psychiatric Psychiatric exam: Present normal affect and normal mood Skin Skin exam: Present warm and dry Medical Decision Making Medical Records Medical records reviewed: Yes I reviewed the patient's medical records. Krishna Inquiry Pt receiving controlled substance: No Vital Signs: 07/31/23 09:35 07/31/23 10:00 07/31/23 11:05 Temperature 97.9 F Temperature Source Oral Pulse Rate 65 91 H Pulse Rate [Left Radial] 68 Respiratory Rate 13 Blood Pressure 137/89 123/81 Blood Pressure [Right Arm] 145/92 H Blood Pressure Mean 111 Blood Pressure Mean [Right Arm] 109 02 Sat by Pulse Oximetry 95 97 93 L Oxygen Delivery Method Room Air Room Air Room Air 07/31/23 11:55 Temperature 97.9 F Temperature Source Pulse Rate 71 Pulse Rate [Left Radial] Respiratory Rate 14 Blood Pressure 125/77 Blood Pressure [Right Arm] Blood Pressure Mean Blood Pressure Mean [Right Arm] 02 Sat by Pulse Oximetry Oxygen Delivery Method Room Air Lab Data Lab results reviewed: Yes I reviewed the patient's lab results. Lab Results 07/31/23 09:36: WBC 5.3, RBC 5.16, Hgb 17.5, Hct 53.8 H, MCV 104.2 H, MCH 33.8 H , MCHC 32.5, RDW 14.3, Plt Count 220, MPV 8.5, Neut % (Auto) 34.1 L, Lymph % (Auto) 42.8, [place] % (Auto) 8.3, Eos % (Auto) 11.1, Baso % (Auto) 3.6 H, Neut # (Auto) 1.8, Lymph # (Auto) 2.3, [place] # (Auto) 0.5, Eos # (Auto) 0.6 H, Baso # (Auto) 0.2, Sodium 142, Potassium 4.1, Chloride 106, Carbon Dioxide 29, Anion Gap 11.1, BUN 17, Creatinine 1.10, Estimated Creat Clear 94, Estimated GFR 71, Est GFR ( Amer) 85, Glucose 149 H, Calcium 8.9, Total Bilirubin 0.7, AST 37, ALT 27, Alkaline Phosphatase 103, Total Protein 7.4, Albumin 4.3, Globulin 3.1, Albumin/Globulin Ratio 1.4 07/31/23 09:49: SARS-CoV-2 (PCR) Not detected, Influenza A Untype (PCR) Not detected, Influenza Type B (PCR) Not detected 07/31/23 09:36 07/31/23 09:36 Orders (Tests/Meds): ED MEDICATIONS Discontinued Medications Generic Name Dose Route Start Last Admin Trade Name Freq PRN Reason Stop Dose Admin Albuterol/Ipratropium 9 ml 07/31/23 09:35 07/31/23 09:40 Ipratropium/Albuterol 3 Ml Neb IH 07/31/23 09:36 9 ml ONCE ONE Administration Lactated Ringer's 1,000 mls @ 999 mls/hr 07/31/23 09:35 07/31/23 09:39 Lactated Ringer's 1000 Ml Bag IV 07/31/23 10:35 999 mls/hr .Q1H1M ONE Administration Methylprednisolone Sodium Succinate 125 mg 07/31/23 09:35 07/31/23 09:40 Methylprednisolone Sod Succ 125mg Vial IV 07/31/23 09:36 125 mg ONCE ONE Administration ORDERS Category Date Time Status XR chest 2V Stat Exams 07/31/23 09:35 Completed Complete Blood Count Auto Diff Stat Lab 07/31/23 09:36 Completed Comprehensive Metabolic Panel Stat Lab 07/31/23 09:36 Completed Rapid PCR Covid and Flu A/B Stat Lab 07/31/23 09:49 Completed ECG Data Tracing #1: I reviewed this ECG and interpreted as documented below: Normal sinus rhythm with sinus arrhythmia with a ventricular rate of [address] changes concerning for ischemia. Normal intervals. ECG initial impression date: 07/31/23 ECG initial impression time: 09:39 Medical Decision Narrative: In summary, this patient is a 53-year-old male presenting to the Emergency Department for evaluation of general weakness, cough, wheezing, and bodyaches for the last week. Differential diagnoses considered include but are not limited to viral syndrome, pneumonia, sinusitis, COPD exacerbation, respiratory failure. Ruling out the most morbid conditions drove assessment. On exam, the patient is nontoxic-appearing. He is able to ambulate from stretcher to bed. He has reassuring vital signs on cardiac telemetry with no significantly increased work of breathing, though he does have coarse bilateral wheezing. Workup included CBC, CMP, chest x-ray, EKG, and viral swab. He was given DuoNebs x 3 as well as IV methylprednisolone. I independently interpreted x-ray prior to the radiologist read and noted no acute focal consolidation concerning for pneumonia and no pulmonary edema. Please see their read for final interpretation. Labs were obtained that demonstrated no significantly concerning abnormalities at this time. On reassessment, patient had great improvement after administration of as above. He is feeling much better. He has improved aeration with normal lung sounds on cardiopulmonary exam. I feel symptoms are likely related to COPD exacerbation, likely triggered by a viral upper respiratory infection. At this time, he is resting comfortably on room air with no increased work of breathing, so I feel that he is appropriate for discharge home with prescriptions for prednisone and doxycycline to treat. He was given instructions for close patient follow-up, strict return precautions, and he was discharged after all questions were answered. Critical Care Critical Care Time Critical Care Time: No
--- NOTE | 2023-07-31 09:38 | ECG_ITS ---
APPROVED REPORT Exam: Resting ECG HR:61 bpm ECG Measurements Heart Rate 61 AXES CO 162 P 77 QRSd 109 QRS 74 QT 409 T 68 QTc 412 Conclusion SINUS RHYTHM WITH SINUS ARRHYTHMIA INDETERMINATE AXIS NORMAL ECG Electronically signed by : TINA TRENT, 07/31/2023 13:47:15
[2023-07-31] MEDS: LACTATED RINGERS 1000ML 1,000 ML 999 ML IV (09:39)
[2023-07-31] MEDS: IPRATROPIUM/ALBUTEROL 3 ML NEB 9 ML IH (09:40)
[2023-07-31] MEDS: METHYLPREDNISOLONE SOD SUCC 125MG VIAL 125 MG IV (09:40)
[2023-07-31 09:44] LABS: Basophils # 0.2 K/mm3 (0-0.2); Basophils % 3.6 % (0.1-2.0); Eosinophils # 0.6 K/mm3 (0.0-0.4); Eosinophils % 11.1 % (0.1-12.0); Hematocrit 53.8 % (42.0-52.0); Hemoglobin 17.5 g/dL (14.1-18.0); Lymphocytes # 2.3 K/mm3 (0.7-4.5); Lymphocytes % 42.8 % (10-50); Mean Corpuscular HGB Conc 32.5 g/dL (31.8-35.4); Mean Corpuscular Hemoglobin 33.8 pg (27.0-31.2); Mean Corpuscular Volume 104.2 fl (80-94); Mean Platelet Volume 8.5 fl (7.4-10.4); Monocytes # 0.5 K/mm3 (0.1-1.0); Monocytes % 8.3 % (1.7-9.3); Neutrophils # 1.8 K/mm3 (1.8-7.8); Neutrophils % 34.1 % (37.0-80.0); Platelet Count 220 K/mm3 (142-424); Red Blood Count 5.16 M/mm3 (4.60-6.20); Red Cell Distribution Width 14.3 % (11.5-17.5); White Blood Count 5.3 K/mm3 (4.8-10.8)
[2023-07-31 09:49] LABS: Chloride 106 mmol/L (98-107); Potassium 4.1 mmoL/L (3.5-5.1); Sodium 142 mmol/L (136-145)
[2023-07-31 09:52] LABS: Alanine Aminotransferase 27 U/L (12-78); Albumin Level 4.3 g/dl (3.5-5.0); Albumin/Globulin Ratio 1.4 (1.1-1.8); Alkaline Phosphatase 103 U/L (38-126); Anion Gap 11.1 mEq/L (5-15); Aspartate Amino Transferase 37 U/L (17-59); Bilirubin,Total 0.7 mg/dl (0.2-1.3); Blood Urea Nitrogen 17 mg/dl (9-20); Calcium 8.9 mg/dl (8.4-10.2); Carbon Dioxide 29 mmol/L (22.0-30.0); Creatinine Clearance Estimated 94 mL/min (50-200); Estimated Glomerular Filt Rate 71 ml/min (>60); GFR (African American) 85 ML/MIN (>60); Globulin 3.1 g/dL (1.3-3.2); Glucose 149 mg/dl (74-100); Total Protein,Serum 7.4 g/dl (6.3-8.2)
[2023-07-31 09:54] LABS: Coronavirus 19, PCR Not Detected (NotDetected); Influenza A, PCR Not Detected (NotDetected); Influenza B, PCR Not Detected (NotDetected)
[2023-07-31 10:00] VITALS: BP 137/89; PULSE 65; O2SAT 97
[2023-07-31 11:05] VITALS: BP 123/81; PULSE 91; O2SAT 93
[2023-07-31 11:55] VITALS: BP 125/77; PULSE 71; RESP 14; TEMP 36.6; O2SAT 97
== END 2023-07-31 11:56 | disposition home or self-care (01) ==
PROVIDERS: Emergency Provider Emergency Medicine; PCP Internal Medicine
DX: J44.1 Chronic obstructive pulmonary disease with (acute) exacerbation (principal); R06.02 Shortness of breath; I49.9 Cardiac arrhythmia, unspecified; R53.1 Weakness; R05.9 Cough, unspecified; R09.81 Nasal congestion; M79.18 Myalgia, other site; I10 Essential (primary) hypertension; E78.5 Hyperlipidemia, unspecified; K21.9 Gastro-esophageal reflux disease without esophagitis; G40.909 Epilepsy, unspecified, not intractable, without status epilepticus; Z87.891 Personal history of nicotine dependence
CPT/HCPCS: 71046; 80053; 85025; 87636; 93005; 96361; 96374; 99284

== ENCOUNTER 2023-08-06 14:29 | Outpatient (POV) | payer MEDICARE, SELFPAY ==
[2023-08-06 14:36] VITALS: BP 154/85; PULSE 100; RESP 18; O2SAT 95; BMI 28.1
--- NOTE | 2023-08-06 15:00 | A.OFFVIS_ITS ---
[facility] Pain Management SOAP Note Subjective:: Patient is a pleasant 53-year-old male who presents today for 1 month follow-up. He does state his pain is about a 1-2 out of 10. He denies any new trauma or injury. He does state that he has been mowing more and that he has started to have a little bit increased pain. Patient also states that he has been experiencing some muscle spasms. Patient did previously have a lumbar medial branch block bilaterally L3-L4 and L4-L5 back in the middle of June that did provide 100% relief. Patient does state that some days are better than others. His Krishna has been reviewed and is appropriate. Review of Systems: General: No recent weight changes, no fever, no sleep disturbances Respiratory: No cough, no shortness of air, no recurring pulmonary infections Cardiovascular/peripheral vascular: No chest pain, no palpitations, no edema, no shortness of breath Gastrointestinal: No new onset incontinence, normal bowel movements reported Genitourinary: No new onset incontinence Musculoskeletal: Low back pain Psychiatric: [Normal mood/affect] Neurological: [Denies weakness in extremities], [denies balance issues] Objective:: Physical Exam: General: Alert and oriented x3, no acute distress, pleasant and cooperative Lungs: Respirations even and unlabored, symmetrical chest expansion Eyes: PERRL Musculoskeletal: Flexion and extension of lumbar [spine] somewhat guarded secondary to pain, [antalgic gait noted] Neurological: Speech clear, no gross sensory deficit Assessment:: 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 I will send in a 2-week supply of baclofen 10 mg twice daily. Patient will return to clinic in 1 month for reevaluation of symptoms and plan of care. Currently the pain is still manageable and I have discussed with the patient in future he may benefit from a repeat lumbar medial branch block and we will follow-up with this at future visits. Patient has been instructed to contact the clinic with any concerns before the next appointment. Dr. Bloom has reviewed this note and agrees with this plan of care. This note was dictated using voice recognition software and make contain errors or omissions. [facility] Disclaimer: The information contained in this section may have been updated after the patient was seen, as this information can be updated by other users. 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 Acute bacterial sinusitis Pharyngitis Nasal polyp Influenza A Migraine HTN (hypertension), benign HLD (hyperlipidemia) Depression Asthma Anxiety Upper respiratory infection Pneumonia Schizophrenia Hepatitis B Seizure disorder Chronic obstructive pulmonary disease GERD (gastroesophageal reflux disease) 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 H/O vasectomy Hx of tonsillectomy History of arthroscopy of right shoulder History of arthroscopy of left shoulder H/O arthroscopy of right knee Family History Other Cancer 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 Smoking Status: Former smoker tobacco type: cigarettes packs per day: 1 second hand exposure: No alcohol intake: never substance use type: former substance user, marijuana and methamphetamine current occupational status: unemployed Travel in the last 8 weeks: None household members: other housing: house number of children: 2 current occupational exposures/hazards: No caffeine: Yes
== END 2023-08-06 23:59 | disposition home or self-care (01) ==
PROVIDERS: PCP Internal Medicine; Visit Provider Nurse Practitioner Family
DX: M51.36 Other intervertebral disc degeneration, lumbar region (principal); M47.816 Spondylosis without myelopathy or radiculopathy, lumbar region
CPT/HCPCS: 99212; G0463

== ENCOUNTER 2023-09-08 10:57 | Emergency (ER) | payer MEDICARE, SELFPAY ==
[2023-09-08] VITALS (9 sets, daily range): BP systolic 118–136; BP diastolic 71–88; PULSE 65–86; RESP 16–25; TEMP 36.6–36.7; O2SAT 93–98; BMI 30.4
--- NOTE | 2023-09-08 11:10 | ECG_ITS ---
APPROVED REPORT Exam: Resting ECG HR:68 bpm ECG Measurements Heart Rate 68 AXES DE 165 P 58 QRSd 116 QRS 66 QT 376 T 14 QTc 394 Conclusion SINUS RHYTHM MODERATE INTRAVENTRICULAR CONDUCTION DELAY [110+ ms QRS DURATION] BORDERLINE ECG UNCONFIRMED REPORT Electronically signed by : Wang Chen, 09/08/2023 23:14:12
--- NOTE | 2023-09-08 11:22 | PC.NURSE ---
ED MD AT BEDSIDE
--- NOTE | 2023-09-08 11:26 | XR_ITS ---
PROCEDURE INFORMATION: Exam: XR Chest Exam date and time: 09/08/2023 11:37 AM Age: 53 years old Clinical indication: Pain; Chest pressure; Additional info: Cp, SOA TECHNIQUE: Imaging protocol: Radiologic exam of the chest. Views: 1 view. COMPARISON: CR XR CHEST 2V 07/31/2023 9:33 AM FINDINGS: Lungs: Unremarkable. No consolidation. Pleural spaces: Unremarkable. No pleural effusion. No pneumothorax. Heart/Mediastinum: Unremarkable. No cardiomegaly. Bones/joints: Unremarkable. IMPRESSION: No acute findings.
--- NOTE | 2023-09-08 11:29 | HMH.EDGENADL ---
Discharge Plan Disposition Patient Disposition: Home, Self-Care Condition: Good Prescriptions Prescriptions: No Action ropinirole 1 mg tablet 1 mg PO HS Rx Instructions: administer 1-3 hours before bedtime beclomethasone dipropionate 40 mcg/actuation HFA aerosol breath activated 1 inh inhalation BID Qty: 10.6 2RF Vraylar 3 mg capsule 3 mg PO DAILY Qty: 90 2RF esomeprazole magnesium 40 mg capsule,delayed release(DR/EC) See Rx Instructions .ROUTE .COMPLEX Qty: 90 2RF Dose Instruction: TAKE ONE CAPSULE BY MOUTH EVERY DAY FOR gerd Rx Instructions: TAKE ONE CAPSULE BY MOUTH EVERY DAY FOR gerd olanzapine 5 mg tablet 5 mg PO HS Qty: 30 4RF phenytoin sodium extended 100 mg capsule See Rx Instructions .ROUTE .COMPLEX Qty: 150 10RF Dose Instruction: TAKE TWO CAPSULES BY MOUTH IN THE MORNING AND TAKE THREE CAPSULES IN THE EVENING Rx Instructions: TAKE TWO CAPSULES BY MOUTH IN THE MORNING AND TAKE THREE CAPSULES IN THE EVENING ipratropium-albuterol 0.5 mg-3 mg(2.5 mg base)/3 mL solution for nebulization See Rx Instructions .ROUTE .COMPLEX Qty: 180 10RF Dose Instruction: INHALE THE CONTENTS OF 1 VIAL VIA NEBULIZER EVERY 8 HOURS NEEDED FOR SHORTNESS OF BREATH OR wheezing Rx Instructions: INHALE THE CONTENTS OF 1 VIAL VIA NEBULIZER EVERY 8 HOURS NEEDED FOR SHORTNESS OF BREATH OR wheezing atorvastatin 40 mg tablet See Rx Instructions .ROUTE .COMPLEX Qty: 90 3RF Dose Instruction: TAKE ONE TABLET BY MOUTH EVERY DAY Rx Instructions: TAKE ONE TABLET BY MOUTH EVERY DAY fluticasone propionate [Flonase Allergy Relief] 50 mcg/actuation spray,suspension 1 spray intranasal Q12H Qty: 16 2RF Rx Instructions: 1 spray in each nostril baclofen 10 mg tablet 10 mg PO BID Qty: 28 0RF doxycycline hyclate 100 mg tablet 100 mg PO BID 7 Days Qty: 14 0RF albuterol sulfate 90 mcg/actuation HFA aerosol inhaler 4 inh inhalation Q4H PRN (Reason: shortness of breath or wheezing) Qty: 8.5 0RF Rx Instructions: 4 puffs every 4 hours for 48 hours then as needed for shortness of breath or wheezing following Referrals Follow up/Referrals: Robbie Peterson, [Primary Care Provider] - See instructions Activity Restrictions/Add. Instructions Additional Instructions/Restrictions: You were seen in the ED today due to shortness of breath. Labs, x-ray, EKG were reassuring. Please follow-up with your primary care provider as scheduled. Return to the ED if symptoms worsen or if new concerning symptoms arise. Thank you. Clinical Impressions Clinical Impression: Shortness of breath Instructions Patient Instructions: DI for Chronic Obstructive Pulmonary Disease, DI for Shortness of Breath Discharge ED Provider: Obie Oliveira General Adult HPI General Chief complaint: Shortness of Breath/Dyspnea Stated complaint: pain while breathing, cough, hist asthma, copd, Time Seen by Provider: 09/08/23 11:33 Mode of Arrival: Ambulatory Source of Information: Patient Limitations: No Limitations Description of Symptoms (Recalled from ER Triage Doc. by RN): Patient reports shortness of breath, cough, and chest tightness for one month. Patient states he feels like he might have pneumonia. History of Present Illness HPI narrative: Patient is a 53-year-old male with history of HTN, HLD, COPD, GERD, seizure disorder who presents due to shortness of breath. Patient states his symptoms have been ongoing for the past 6 months. States he has been experiencing shortness of breath, difficulty breathing, cough productive of phlegm. States he has also had intermittent chest pain. Symptoms are worse with exertion. States he has been using his home inhalers/nebulizer with little benefit. Reports he does have an appointment to be seen on 09/09 however this morning he was feeling particularly short of breath. Denies any fevers. States he has experienced posttussive emesis but denies any vomiting otherwise. Denies any blood thinner use. Related Data Home Medications Medication Instructions Recorded Confirmed ropinirole 1 mg tablet 1 mg PO HS 03/24/23 08/11/23 Previous Rx's Medication Instructions Recorded phenytoin sodium extended 100 mg See Rx Instructions .Route 11/04/22 capsule .COMPLEX #150 caps ipratropium 0.5 mg-albuterol 3 mg See Rx Instructions .Route 01/29/23 (2.5 mg base)/3 mL nebulization .COMPLEX #180 mL soln atorvastatin 40 mg tablet See Rx Instructions .Route 02/03/23 .COMPLEX #90 tabs beclomethasone dipropionate 40 1 inh inhalation BID #10.6 grams 03/24/23 mcg/actuation HFA breath activated aerosol albuterol sulfate 90 mcg/actuation 4 inh inhalation Q4H PRN shortness 05/27/23 aerosol inhaler of breath or wheezing #8.5 grams cariprazine 3 mg capsule (Vraylar) 3 mg PO DAILY #90 caps 06/20/23 esomeprazole magnesium 40 mg See Rx Instructions .Route 06/20/23 capsule,delayed release .COMPLEX #90 caps olanzapine 5 mg tablet 5 mg PO HS #30 tabs 06/20/23 fluticasone propionate 50 1 spray intranasal Q12H #16 grams 07/23/23 mcg/actuation nasal spray,suspension (Flonase Allergy Relief) doxycycline hyclate 100 mg tablet 100 mg PO BID 7 days #14 tabs 07/31/23 baclofen 10 mg tablet 10 mg PO BID #28 tabs 08/06/23 Allergies Allergy/AdvReac Type Severity Reaction Status Date / Time alprazolam [From Xanax] Allergy Verified 08/11/23 10:22 fluoxetine [From Prozac] Allergy Verified 08/11/23 10:22 [facility] Disclaimer: The information contained in this section may have been updated after the patient was seen, as this information can be updated by other users. 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 Acute bacterial sinusitis Pharyngitis Nasal polyp Influenza A Migraine HTN (hypertension), benign HLD (hyperlipidemia) Depression Asthma Anxiety Upper respiratory infection Pneumonia Schizophrenia Hepatitis B We will re-check this and send him to Dr. Casas. As mentioned above patient was supposed sees Dr. Casas for his hepatitis B. Will send him. Seizure disorder As mentioned we will refer to Dr. Deng as soon as possible. Aramis is doing much better on his phenytoin at 2 tablets in the morning 3 tablets in the evening. He was only taking 2 tablets a day. His phenytoin levels were extremely low. We will repeat those today but he states he is back on the twice daily dosing as originally prescribed. Chronic obstructive pulmonary disease We will follow this for now. He does have albuterol MDIs. GERD (gastroesophageal reflux disease) 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 H/O vasectomy Hx of tonsillectomy History of arthroscopy of right shoulder History of arthroscopy of left shoulder H/O arthroscopy of right knee Family History Other Cancer 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 Smoking Status: Current every day smoker tobacco type: cigarettes packs per day: 1 second hand exposure: No alcohol intake: never substance use type: former substance user, marijuana and methamphetamine current occupational status: unemployed Travel in the last 8 weeks: None household members: other housing: house number of children: 2 current occupational exposures/hazards: No caffeine: Yes ROS Obtained: Yes All systems reviewed & no additional complaints except as documented Physical Exam General General appearance: alert and in no apparent distress Head Head exam: atraumatic, normocephalic and normal inspection Eye Eye exam: Present normal appearance, PERRL and EOMI ENT ENT exam: Present normal exam, normal oropharynx, mucous membranes moist, TM's normal bilaterally and normal external ear exam Neck Neck exam: Present normal inspection, full ROM and trachea midline; Absent meningismus or lymphadenopathy Chest Chest inspection: Present normal inspection and symmetric chest wall rise; Absent tenderness Respiratory Respiratory exam: Present normal lung sounds bilaterally and wheezes (Bilateral expiratory wheezes diffusely.); Absent respiratory distress Cardiovascular Cardiovascular exam: Present regular rate and normal rhythm; Absent JVD Abdominal Exam Abdominal exam: Present soft and normal bowel sounds; Absent distention, tenderness or guarding Extremities Exam Extremities exam: Present normal inspection, full ROM and normal capillary refill; Absent calf tenderness Back Exam Back exam: Present normal inspection; Absent tenderness Neurological Exam Neurological exam: Present alert and oriented X3 Psychiatric Psychiatric exam: Present normal affect and normal mood Skin Skin exam: Present warm, dry, intact and normal color Lymphatic Lymphatic Findings: no adenopathy Medical Decision Making Medical Records Medical records reviewed: Yes I reviewed the patient's medical records. Krishna Inquiry Pt receiving controlled substance: No Vital Signs: 09/08/23 10:58 09/08/23 11:02 09/08/23 11:30 Temperature 98.1 F Temperature Source Oral Pulse Rate 82 70 Pulse Rate [Radial] 81 Respiratory Rate 18 19 19 Blood Pressure 135/88 120/71 Blood Pressure [Right Arm] 135/88 Blood Pressure Mean Blood Pressure Mean [Right Arm] 103 Blood Pressure Source Blood Pressure Source [Right Arm] Automatic Cuff Blood Pressure Position Blood Pressure Position [Right Arm] Sitting 02 Sat by Pulse Oximetry 95 96 94 L Oxygen Delivery Method Room Air Room Air 09/08/23 12:00 09/08/23 13:00 09/08/23 13:30 Temperature Temperature Source Pulse Rate 74 78 75 Pulse Rate [Radial] Respiratory Rate 19 20 20 Blood Pressure 118/74 136/77 135/74 Blood Pressure [Right Arm] Blood Pressure Mean Blood Pressure Mean [Right Arm] Blood Pressure Source Blood Pressure Source [Right Arm] Blood Pressure Position Blood Pressure Position [Right Arm] 02 Sat by Pulse Oximetry 95 93 L 96 Oxygen Delivery Method Room Air Room Air Room Air 09/08/23 13:37 09/08/23 14:00 09/08/23 14:38 Temperature 97.9 F Temperature Source Oral Pulse Rate 69 65 86 Pulse Rate [Radial] Respiratory Rate 20 25 H 16 Blood Pressure 135/74 136/88 Blood Pressure [Right Arm] Blood Pressure Mean 106 Blood Pressure Mean [Right Arm] Blood Pressure Source Automatic Cuff Blood Pressure Source [Right Arm] Blood Pressure Position Sitting Blood Pressure Position [Right Arm] 02 Sat by Pulse Oximetry 93 L 98 Oxygen Delivery Method Room Air Lab Data Lab Results 09/08/23 11:15: WBC 5.7, RBC 4.62, Hgb 15.9, Hct 47.4, MCV 102.5 H, MCH 34.5 H, MCHC 33.7, RDW 14.0, Plt Count 204, MPV 8.0, Neut % (Auto) 45.8, Lymph % (Auto) 39.9, Atlantic % (Auto) 8.1, Eos % (Auto) 4.3, Baso % (Auto) 1.9, Neut # (Auto) 2.6, Lymph # (Auto) 2.3, [place] # (Auto) 0.5, Eos # (Auto) 0.2, Baso # (Auto) 0.1, D-Dimer 0.34, Sodium 137, Potassium 4.2, Chloride 105, Carbon Dioxide 23, Anion Gap 13.2, BUN 19, Creatinine 1.20, Estimated Creat Clear 93, Estimated GFR 64, Est GFR ( Amer) 77, Glucose 93, Calcium 8.9, Magnesium 1.7, Total Bilirubin 0.4, AST 38, ALT 30, Alkaline Phosphatase 85, Troponin I < 0.01, NT-Pro-B Natriuret Pep < 20.0, Total Protein 6.9, Albumin 4.2, Globulin 2.7, Albumin/Globulin Ratio 1.6 09/08/23 11:26: VBG pH 7.35, VBG pCO2 40.2, VBG pO2 62.8 H, VBG HCO3 21.8 L, VBG Total CO2 23.0, VBG O2 Saturation 91.2 H, VBG Base Excess -3.8 L, VBG Lactic Acid 2.5 H 09/08/23 11:15 09/08/23 11:15 Orders (Tests/Meds): ED MEDICATIONS Discontinued Medications Generic Name Dose Route Start Last Admin Trade Name Freq PRN Reason Stop Dose Admin Albuterol/Ipratropium 9 ml 09/08/23 11:26 09/08/23 11:34 Ipratropium/Albuterol 3 Ml Neb IH 09/08/23 11:27 9 ml ONCE ONE Administration Lactated Ringer's 500 mls @ 999 mls/hr 09/08/23 12:10 09/08/23 12:24 Lactated Ringer's 500ml IV 09/08/23 12:40 999 mls/hr .Q31M ONE Administration ORDERS Category Date Time Status Chest XR -- portable [XR chest portable] Stat Exams 09/08/23 11:26 Completed BNP [NT Pro Brain Natriuretic Pep.] Stat Lab 09/08/23 11:15 Completed CBC w/Auto Diff [Complete Blood Count Auto Diff] Stat Lab 09/08/23 11:15 Completed CMP [Comprehensive Metabolic Panel] Stat Lab 09/08/23 11:15 Completed D-Dimer Stat Lab 09/08/23 11:15 Completed Magnesium Stat Lab 09/08/23 11:15 Completed Troponin I Stat Lab 09/08/23 11:15 Completed VBG [Venous Blood Gas] Stat RT 09/08/23 11:26 Completed ECG Data Tracing #1: EKG obtained and interpreted by me demonstrating sinus rhythm with intraventricular conduction delay, no signs of acute ischemia. Medical Decision Narrative: In summary, patient is 53-year-old male with history of COPD, evaluated in the emergency department today due to shortness of breath for the past 6 months. On arrival, patient is hemodynamically stable with normal vital signs. On examination, patient has bilateral expiratory wheezes. Differential diagnosis includes but is not limited to COPD exacerbation, pneumonia, viral infection, ACS, PE, heart failure. Patient given DuoNeb treatment x3. Workup initiated including CBC, CMP, troponin, D-dimer, VBG, magnesium, chest x-ray. Labs independently interpreted by me and significant for lactate 2.5, otherwise unremarkable. Patient given 500 mL LR bolus. Imaging independently interpreted by me and significant for CXR interpreted by me demonstrating no acute pneumonia, otherwise no acute findings. On reevaluation, patient reports improvement in symptoms. Wheezing has improved. Given reassuring workup, patient is appropriate for discharge with outpatient follow-up. States he has follow-up in 2 days. Patient counseled on home care, given strict return precautions and agreeable to plan. Critical Care Critical Care Time Critical Care Time: No
[2023-09-08] MEDS: IPRATROPIUM/ALBUTEROL 3 ML NEB 9 ML IH (11:34)
--- NOTE | 2023-09-08 11:35 | PC.NURSE ---
Notified RT of VBG in lab
[2023-09-08 11:40] LABS: VBG Base Excess -3.8 mmol/L (-2.4-2.3); VBG HCO3 21.8 mmol/L (23-30); VBG Oxygen Saturation 91.2 % (50-70); VBG PCO2 40.2 mmol/L (35-51); VBG PH 7.35 mmol/L (7.31-7.41); VBG PO2 62.8 mmol/L (28-40)
[2023-09-08 11:42] LABS: Lactate Venous 2.5 mmol/L (0.4-2.0)
--- NOTE | 2023-09-08 11:42 | PC.NURSE ---
XR AT BEDSIDE
[2023-09-08 11:43] LABS: Alanine Aminotransferase 30 U/L (12-78); Albumin Level 4.2 g/dl (3.5-5.0); Albumin/Globulin Ratio 1.6 (1.1-1.8); Alkaline Phosphatase 85 U/L (38-126); Anion Gap 13.2 mEq/L (5-15); Aspartate Amino Transferase 38 U/L (17-59); Bilirubin,Total 0.4 mg/dl (0.2-1.3); Blood Urea Nitrogen 19 mg/dl (9-20); Calcium 8.9 mg/dl (8.4-10.2); Carbon Dioxide 23 mmol/L (22.0-30.0); Chloride 105 mmol/L (98-107); Creatinine Clearance Estimated 93 mL/min (50-200); Estimated Glomerular Filt Rate 64 ml/min (>60); GFR (African American) 77 ML/MIN (>60); Globulin 2.7 g/dL (1.3-3.2); Glucose 93 mg/dl (74-100); Magnesium 1.7 mg/dl (1.6-2.3); Potassium 4.2 mmoL/L (3.5-5.1); Sodium 137 mmol/L (136-145); Total Protein,Serum 6.9 g/dl (6.3-8.2)
[2023-09-08 11:48] LABS: D-Dimer 0.34 ug/mL (0.0-0.5)
[2023-09-08 11:54] LABS: NT Pro Brain Natriuretic Pep. < 20.0 pg/mL (0-125)
[2023-09-08 11:57] LABS: Basophils # 0.1 K/mm3 (0-0.2); Basophils % 1.9 % (0.1-2.0); Eosinophils # 0.2 K/mm3 (0.0-0.4); Eosinophils % 4.3 % (0.1-12.0); Hematocrit 47.4 % (42.0-52.0); Hemoglobin 15.9 g/dL (14.1-18.0); Lymphocytes # 2.3 K/mm3 (0.7-4.5); Lymphocytes % 39.9 % (10-50); Mean Corpuscular HGB Conc 33.7 g/dL (31.8-35.4); Mean Corpuscular Hemoglobin 34.5 pg (27.0-31.2); Mean Corpuscular Volume 102.5 fl (80-94); Monocytes # 0.5 K/mm3 (0.1-1.0); Monocytes % 8.1 % (1.7-9.3); Neutrophils # 2.6 K/mm3 (1.8-7.8); Neutrophils % 45.8 % (37.0-80.0); Platelet Count 204 K/mm3 (142-424); Red Blood Count 4.62 M/mm3 (4.60-6.20); White Blood Count 5.7 K/mm3 (4.8-10.8)
[2023-09-08 11:59] LABS: Troponin I < 0.01 ng/ml (0.00-0.034)
[2023-09-08] MEDS: RINGERS SOLUTION,LACTATED 500 ML 999 ML IV (12:24)
--- NOTE | 2023-09-08 14:12 | PC.NURSE ---
rounded on pt. pt asked about dc and follow up w
== END 2023-09-08 14:38 | disposition home or self-care (01) ==
PROVIDERS: Emergency Provider Student in an Organized Health Care Education/Training Program; PCP Internal Medicine
DX: R06.02 Shortness of breath (principal); R07.1 Chest pain on breathing; R05.9 Cough, unspecified; R06.2 Wheezing; J44.9 Chronic obstructive pulmonary disease, unspecified; K21.9 Gastro-esophageal reflux disease without esophagitis; I10 Essential (primary) hypertension; E78.5 Hyperlipidemia, unspecified; F17.210 Nicotine dependence, cigarettes, uncomplicated
CPT/HCPCS: 71045; 80053; 82803; 83735; 83880; 84484; 85025; 85378; 93005; 99284

== ENCOUNTER 2023-09-11 18:02 | Emergency (ER) | payer MEDICARE, SELFPAY ==
[2023-09-11 18:03] VITALS: BP 127/85; PULSE 91; RESP 18; TEMP 36.6; O2SAT 98; BMI 30.4
--- NOTE | 2023-09-11 18:23 | HMH.EDGENADL ---
Discharge Plan Disposition Patient Disposition: Home, Self-Care Chief Complaint: Skin/Abscess/Foreign Body Prescriptions Prescriptions: No Action ropinirole 1 mg tablet 1 mg PO HS Rx Instructions: administer 1-3 hours before bedtime beclomethasone dipropionate 40 mcg/actuation HFA aerosol breath activated 1 inh inhalation BID Qty: 10.6 2RF Vraylar 3 mg capsule 3 mg PO DAILY Qty: 90 2RF esomeprazole magnesium 40 mg capsule,delayed release(DR/EC) See Rx Instructions .ROUTE .COMPLEX Qty: 90 2RF Dose Instruction: TAKE ONE CAPSULE BY MOUTH EVERY DAY FOR gerd Rx Instructions: TAKE ONE CAPSULE BY MOUTH EVERY DAY FOR gerd olanzapine 5 mg tablet 5 mg PO HS Qty: 30 4RF phenytoin sodium extended 100 mg capsule See Rx Instructions .ROUTE .COMPLEX Qty: 150 10RF Dose Instruction: TAKE TWO CAPSULES BY MOUTH IN THE MORNING AND TAKE THREE CAPSULES IN THE EVENING Rx Instructions: TAKE TWO CAPSULES BY MOUTH IN THE MORNING AND TAKE THREE CAPSULES IN THE EVENING ipratropium-albuterol 0.5 mg-3 mg(2.5 mg base)/3 mL solution for nebulization See Rx Instructions .ROUTE .COMPLEX Qty: 180 10RF Dose Instruction: INHALE THE CONTENTS OF 1 VIAL VIA NEBULIZER EVERY 8 HOURS NEEDED FOR SHORTNESS OF BREATH OR wheezing Rx Instructions: INHALE THE CONTENTS OF 1 VIAL VIA NEBULIZER EVERY 8 HOURS NEEDED FOR SHORTNESS OF BREATH OR wheezing atorvastatin 40 mg tablet See Rx Instructions .ROUTE .COMPLEX Qty: 90 3RF Dose Instruction: TAKE ONE TABLET BY MOUTH EVERY DAY Rx Instructions: TAKE ONE TABLET BY MOUTH EVERY DAY fluticasone propionate [Flonase Allergy Relief] 50 mcg/actuation spray,suspension 1 spray intranasal Q12H Qty: 16 2RF Rx Instructions: 1 spray in each nostril baclofen 10 mg tablet 10 mg PO BID Qty: 28 0RF doxycycline hyclate 100 mg tablet 100 mg PO BID 7 Days Qty: 14 0RF albuterol sulfate 90 mcg/actuation HFA aerosol inhaler 4 inh inhalation Q4H PRN (Reason: shortness of breath or wheezing) Qty: 8.5 0RF Rx Instructions: 4 puffs every 4 hours for 48 hours then as needed for shortness of breath or wheezing following Referrals Follow up/Referrals: Robbie Peterson DO [Primary Care Provider] - See instructions Activity Restrictions/Add. Instructions Additional Instructions/Restrictions: Talk to family doctor about this visit to the emergency department. Ask him to follow the size of the taste buds and residual lingual tonsils. You have no signs or symptoms of cancer today or on physical exam. Call your family doctor to establish care for this visit to the emergency department and schedule follow-up within 48 hours to ensure improvement. If you have any worsening of your condition or any other concerning signs or symptoms, return to the emergency department or your primary care doctor for further evaluation. Clinical Impressions Clinical Impression: Encounter for medical assessment Instructions Patient Instructions: DI for Skin Abscess Discharge ED Provider: Les Cintron General Adult HPI General Chief complaint: Skin/Abscess/Foreign Body Stated complaint: bumps on tongue Time Seen by Provider: 09/11/23 18:07 Mode of Arrival: Ambulatory Source of Information: Patient Limitations: No Limitations Description of Symptoms (Recalled from ER Triage Doc. by RN): bumps on tongue have been there for 2 months History of Present Illness HPI narrative: Please note that above description of symptoms, in this electronic medical record under categorization of recalled from ER triage doctor by RN are reflective of an initial nursing assessment, however, is not reflective of my full history and physical exam that was personally taken and clarified. Consequentially, this preceding description of symptoms, which may include the patient's categorized chief complaint in the EMR, do not reflect my personal clinical impression, and the ultimate description of history of present illness and patient stated complaints should be deferred to this section of the note. Unless stated otherwise or congruent with this section of the note, additional signs, symptoms, or incongruence should be interpreted as inaccurate with my clinical impression. Related Data Home Medications Medication Instructions Recorded Confirmed ropinirole 1 mg tablet 1 mg PO HS 03/24/23 08/11/23 Previous Rx's Medication Instructions Recorded phenytoin sodium extended 100 mg See Rx Instructions .Route 11/04/22 capsule .COMPLEX #150 caps ipratropium 0.5 mg-albuterol 3 mg See Rx Instructions .Route 01/29/23 (2.5 mg base)/3 mL nebulization .COMPLEX #180 mL soln atorvastatin 40 mg tablet See Rx Instructions .Route 02/03/23 .COMPLEX #90 tabs beclomethasone dipropionate 40 1 inh inhalation BID #10.6 grams 03/24/23 mcg/actuation HFA breath activated aerosol albuterol sulfate 90 mcg/actuation 4 inh inhalation Q4H PRN shortness 05/27/23 aerosol inhaler of breath or wheezing #8.5 grams cariprazine 3 mg capsule (Vraylar) 3 mg PO DAILY #90 caps 06/20/23 esomeprazole magnesium 40 mg See Rx Instructions .Route 06/20/23 capsule,delayed release .COMPLEX #90 caps olanzapine 5 mg tablet 5 mg PO HS #30 tabs 06/20/23 fluticasone propionate 50 1 spray intranasal Q12H #16 grams 07/23/23 mcg/actuation nasal spray,suspension (Flonase Allergy Relief) doxycycline hyclate 100 mg tablet 100 mg PO BID 7 days #14 tabs 07/31/23 baclofen 10 mg tablet 10 mg PO BID #28 tabs 08/06/23 Allergies Allergy/AdvReac Type Severity Reaction Status Date / Time alprazolam [From Xanax] Allergy Verified 08/11/23 10:22 fluoxetine [From Prozac] Allergy Verified 08/11/23 10:22 [facility] Disclaimer: The information contained in this section may have been updated after the patient was seen, as this information can be updated by other users. 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 Acute bacterial sinusitis Pharyngitis Nasal polyp Influenza A Migraine HTN (hypertension), benign HLD (hyperlipidemia) Depression Asthma Anxiety Upper respiratory infection Pneumonia Schizophrenia Hepatitis B We will re-check this and send him to Dr. Casas. As mentioned above patient was supposed sees Dr. Casas for his hepatitis B. Will send him. Seizure disorder As mentioned we will refer to Dr. Deng as soon as possible. Aramis is doing much better on his phenytoin at 2 tablets in the morning 3 tablets in the evening. He was only taking 2 tablets a day. His phenytoin levels were extremely low. We will repeat those today but he states he is back on the twice daily dosing as originally prescribed. Chronic obstructive pulmonary disease We will follow this for now. He does have albuterol MDIs. GERD (gastroesophageal reflux disease) 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 H/O vasectomy Hx of tonsillectomy History of arthroscopy of right shoulder History of arthroscopy of left shoulder H/O arthroscopy of right knee Family History Other Cancer 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 Smoking Status: Current every day smoker tobacco type: cigarettes packs per day: 1 second hand exposure: No alcohol intake: never substance use type: former substance user, marijuana and methamphetamine current occupational status: unemployed Travel in the last 8 weeks: None household members: other housing: house number of children: 2 current occupational exposures/hazards: No caffeine: Yes ROS Obtained: Yes All systems reviewed & no additional complaints except as documented Physical Exam General General appearance: alert and in no apparent distress Head Head exam: atraumatic and normocephalic Eye Eye exam: Present normal appearance, PERRL and EOMI ENT ENT exam: Present mucous membranes moist and other (Lingual tonsils, nontender) Neck Neck exam: Present normal inspection, full ROM and trachea midline; Absent lymphadenopathy Respiratory Respiratory exam: Absent respiratory distress, wheezes, stridor, accessory muscle use or prolonged expiratory phase Cardiovascular Cardiovascular exam: Present normal rhythm Abdominal Exam Abdominal exam: Present soft; Absent distention, tenderness, guarding, rebound or rigidity Extremities Exam Extremities exam: Absent edema Neurological Exam Neurological exam: Present alert, oriented X3, CN II-XII intact and normal gait; Absent motor sensory deficit Skin Skin exam: Present warm and dry; Absent diaphoresis or erythema Medical Decision Making Medical Records Medical records reviewed: Yes I reviewed the patient's medical records. Krishna Inquiry Pt receiving controlled substance: No Krishna was queried for this patient: No Vital Signs: 09/11/23 18:03 Temperature 97.9 F Temperature Source Oral Pulse Rate [Left] 91 H Respiratory Rate 18 Blood Pressure [Left Arm] 127/85 Blood Pressure Mean [Left Arm] 99 02 Sat by Pulse Oximetry 98 Oxygen Delivery Method Room Air Medical Decision Narrative: Is a 53-year-old male with smoking history, hypertension, hyperlipidemia, seizure disorder, COPD presenting with concern for tongue nodules. States he has never had a tonsillectomy and his tonsils are still present. Patient states that he just noticed them about 2 weeks prior. They are nontender, do not bother him, do not interfere with swallowing, do not cause difficulty breathing, entirely asymptomatic. No fevers chills or night sweats. History obtained with patient. On physical exam patient appears to have remnant lingual tonsils versus enlarged taste buds at the base of his tongue. No lymphadenopathy, no abnormal head or neck findings otherwise. Taste buds are symmetric, pink, nontender, not associated with ulcerations, masses, friability or bleeding, or any other abnormalities. Given this, no further workup deemed necessary at this time. Patient was instructed to follow-up with his family doctor for any further concerns. Because patient at baseline without signs or symptoms of clinical decompensation, deemed appropriate for discharge. Results were relayed to patient who voiced understanding and were agreeable to outpatient management and follow up. I discussed my clinical impression with patient and answered all questions. At this time, the evidence for any other entities in the differential is insufficient to warrant any further testing or ED observation. This was explained as well. Advisory was given that persistent or worsening symptoms require further evaluation. I confirmed the understanding of this discussion. [employer] Worker disclaimer Much of this encounter note is an electronic network operations technician spoken language to printed text. Electronic network operations technician of the spoken language may permit errors. Although I have reviewed the note, some errors may still exist. Critical Care Critical Care Time Critical Care Time: No
[2023-09-11 18:50] VITALS: BP 121/74; PULSE 88; RESP 20; TEMP 36.6; O2SAT 99
== END 2023-09-11 18:54 | disposition home or self-care (01) ==
PROVIDERS: Emergency Provider Emergency Medicine; PCP Internal Medicine
DX: L98.9 Disorder of the skin and subcutaneous tissue, unspecified (principal)
CPT/HCPCS: 99282

== ENCOUNTER 2023-10-01 13:24 | Outpatient (POV) | payer MEDICARE, SELFPAY ==
[2023-10-01 13:37] VITALS: BP 124/86; PULSE 86; RESP 18; O2SAT 95; BMI 30.4
--- NOTE | 2023-10-01 14:24 | A.OFFVIS_ITS ---
[facility] Pain Management SOAP Note Subjective:: Patient is a pleasant 53-year-old male who presents today for follow-up. Today he rates his pain a 9 out of 10. Patient states that overall he still has some back pain but it is still manageable following his lumbar medial branch blocks that was done in June. Patient did have 100% relief at that point and is still getting some improvement. Today he however he states he is experiencing more pain in his right knee with popping and cracking. He states the pain does interfere with his ability to perform activities of daily living such as cooking and cleaning. Patient denies any prior imaging of his right knee. Patient states that nothing right off and comes to mind of a specific injury or trauma. He states that he has hide mild things in the past where he has hit his knee with a hammer by accident. He does state that this pain has been going on for approximately 12 years. Patient is interested in possible options for his knee pain. His Krishna has been reviewed and is appropriate. Review of Systems: General: No recent weight changes, no fever, no sleep disturbances Respiratory: No cough, no shortness of air, no recurring pulmonary infections Cardiovascular/peripheral vascular: No chest pain, no palpitations, no edema, no shortness of breath Gastrointestinal: No new onset incontinence, normal bowel movements reported Genitourinary: No new onset incontinence Musculoskeletal: Right knee pain Psychiatric: [Normal mood/affect] Neurological: [Denies weakness in extremities], [denies balance issues] Objective:: physical Exam: General: Alert and oriented x3, no acute distress, pleasant and cooperative Lungs: Respirations even and unlabored, symmetrical chest expansion Eyes: PERRL Musculoskeletal: Flexion and extension of right knee somewhat guarded secondary to pain, [antalgic gait noted] Neurological: Speech clear, no gross sensory deficit Assessment:: degenerative disc diseaseOf lumbar spine with lumbar facet arthropathy, bilateral knee pain Plan:: Patient is experiencing worsening pain in his right knee with limited range of motion. I will order x-ray imaging and MRI without contrast of his right knee. I have discussed with patient in future he may benefit from right knee intra- articular injection. We will follow-up with this at future visits. Patient will return to clinic in 1 month following his imaging for reevaluation of symptoms and plan of care. Patient has been instructed to contact the clinic with any concerns before the next appointment. Dr. Bloom has reviewed this note and agrees with this plan of care. This note was dictated using voice recognition software and make contain errors or omissions. [facility] Disclaimer: The information contained in this section may have been updated after the patient was seen, as this information can be updated by other users. 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 Acute bacterial sinusitis Pharyngitis Nasal polyp Influenza A Migraine HTN (hypertension), benign HLD (hyperlipidemia) Depression Asthma Anxiety Upper respiratory infection Pneumonia Schizophrenia Hepatitis B We will re-check this and send him to Dr. Casas. As mentioned above patient was supposed sees Dr. Casas for his hepatitis B. Will send him. Seizure disorder As mentioned we will refer to Dr. Deng as soon as possible. Aramis is doing much better on his phenytoin at 2 tablets in the morning 3 tablets in the evening. He was only taking 2 tablets a day. His phenytoin levels were extremely low. We will repeat those today but he states he is back on the twice daily dosing as originally prescribed. Chronic obstructive pulmonary disease We will follow this for now. He does have albuterol MDIs. GERD (gastroesophageal reflux disease) 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 H/O vasectomy Hx of tonsillectomy History of arthroscopy of right shoulder History of arthroscopy of left shoulder H/O arthroscopy of right knee Family History Other Cancer 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 Smoking Status: Current every day smoker tobacco type: cigarettes packs per day: 1 second hand exposure: No alcohol intake: never substance use type: former substance user, marijuana and methamphetamine current occupational status: unemployed Travel in the last 8 weeks: None household members: other housing: house number of children: 2 current occupational exposures/hazards: No caffeine: Yes
== END 2023-10-01 23:59 | disposition home or self-care (01) ==
LOC: SC.PAIN 13:26
PROVIDERS: PCP Internal Medicine; Visit Provider Nurse Practitioner Family
DX: M54.50 Low back pain, unspecified (principal); M51.36 Other intervertebral disc degeneration, lumbar region; M47.816 Spondylosis without myelopathy or radiculopathy, lumbar region; M25.561 Pain in right knee; M25.562 Pain in left knee
CPT/HCPCS: 99212; G0463

== ENCOUNTER 2023-10-01 13:59 | Outpatient (CLI) | payer MEDICARE, SELFPAY ==
--- NOTE | 2023-10-01 14:05 | XR_ITS ---
FINAL REPORT CLINICAL HISTORY: RT KNEE PAIN; states popping in right knee COMPARISON: None FINDINGS: RIGHT KNEE: There is no acute fracture or dislocation. The joint spaces are intact. There is no soft tissue abnormality. IMPRESSION: No acute fracture Reviewed, Interpreted and Dictated by Jose Farley MD Transcribed by Carline Madison Authenticated and [facility]
== END 2023-10-01 23:59 | disposition home or self-care (01) ==
LOC: RAD 14:00
PROVIDERS: PCP Internal Medicine; Visit Provider Anesthesiology
DX: M51.36 Other intervertebral disc degeneration, lumbar region (principal); M47.816 Spondylosis without myelopathy or radiculopathy, lumbar region; M25.561 Pain in right knee; M25.562 Pain in left knee
CPT/HCPCS: 73562; 99212; G0463

== ENCOUNTER 2023-10-13 15:31 | Outpatient (CLI) | payer MEDICARE, SELFPAY ==
--- NOTE | 2023-10-13 15:34 | XR_ITS ---
FINAL REPORT CLINICAL HISTORY: Left wrist pain COMPARISON: None FINDINGS: LEFT WRIST Three views demonstrate no acute fracture or dislocation. The visualized joint spaces are normally aligned. The soft tissues are unremarkable. IMPRESSION: No acute bony abnormality. Reviewed, Interpreted and Dictated by Evgeny Rosales III, MD Transcribed by Kathy Goncalves Authenticated and [facility]
== END 2023-10-13 23:59 | disposition home or self-care (01) ==
LOC: RAD 15:32
PROVIDERS: PCP Internal Medicine; Visit Provider Family Medicine
DX: M25.532 Pain in left wrist (principal)
CPT/HCPCS: 73110

== ENCOUNTER 2023-11-12 20:58 | Outpatient (CLI) | payer MEDICARE, BC, SELFPAY ==
[2023-11-12 23:00] LABS: Chol/HDL Ratio 5.3 (1-3.5); Cholesterol 197 mg/dl (140-200); HDL Cholesterol 37 mg/dl (40-60)
[2023-11-12 23:09] LABS: Triglycerides 511 mg/dl (30-150)
[2023-11-12 23:11] LABS: Direct LDL Cholesterol 53.11 mg/dL (100-129)
[2023-11-12 23:32] LABS: Thyroid Stimulating Hormone 3.26 uIU/mL (0.465-4.68)
[2023-11-14 08:30] LABS: Testosterone,Total 310 ng/dL (264-916)
[2023-11-16 14:47] LABS: Testosterone,Free 4.2 pg/mL (7.2-24.0)
== END 2023-11-12 23:59 | disposition home or self-care (01) ==
LOC: LAB.DROPOF 21:00
PROVIDERS: PCP Internal Medicine; Visit Provider Internal Medicine
DX: R53.1 Weakness (principal); E66.3 Overweight; Z68.27 Body mass index [BMI] 27.0-27.9, adult; Z79.899 Other long term (current) drug therapy
CPT/HCPCS: 80061; 84402; 84403; 84443

== ENCOUNTER 2023-12-19 14:17 | Outpatient (CLI) | payer MEDICARE, BC, SELFPAY ==
--- NOTE | 2023-12-19 14:31 | XR_ITS ---
FINAL REPORT CLINICAL HISTORY: wrist pain FINDINGS: LEFT WRIST Three views demonstrate no acute fracture or dislocation. The visualized joint spaces are normally aligned. The soft tissues are unremarkable. IMPRESSION: No acute bony abnormality. Reviewed, Interpreted and Dictated by Evgeny Rosales III, MD Transcribed by Enid Mccord Authenticated and [facility]
--- NOTE | 2023-12-19 14:31 | XR_ITS ---
FINAL REPORT CLINICAL HISTORY: pain FINDINGS: RIGHT ANKLE 3 views of the right ankle were obtained. There is no acute fracture or dislocation. The mortise is intact. Visualized joint spaces are normally aligned. Soft tissues are unremarkable. IMPRESSION: No acute bony abnormality. Reviewed, Interpreted and Dictated by Evgeny Rosales III, MD Transcribed by Enid Mccord Authenticated and . [facility]
== END 2023-12-19 23:59 | disposition home or self-care (01) ==
PROVIDERS: PCP Family Medicine; Visit Provider Family Medicine
DX: M25.571 Pain in right ankle and joints of right foot (principal); G89.29 Other chronic pain; M25.532 Pain in left wrist
CPT/HCPCS: 73110; 73610

== ENCOUNTER 2023-12-28 11:28 | Emergency (ER) | payer MEDICARE, BC, SELFPAY ==
[2023-12-28 11:50] VITALS: BP 130/74; PULSE 81; RESP 21; TEMP 36.8; O2SAT 95; BMI 26.1
[2023-12-28 12:05] LABS: POC Glucose,Bedside 117 (70-110)
--- NOTE | 2023-12-28 12:17 | EXP.UTC ---
Discharge Plan Disposition Patient Disposition: Home, Self-Care Condition: Good Prescriptions Prescriptions: New amoxicillin 500 mg capsule 500 mg PO TID 7 Days Qty: 21 0RF meclizine 25 mg tablet 25 mg PO TID PRN (Reason: dizziness) Qty: 12 0RF No Action esomeprazole magnesium 40 mg capsule,delayed release(DR/EC) See Rx Instructions .ROUTE .COMPLEX Qty: 90 2RF Dose Instruction: TAKE ONE CAPSULE BY MOUTH EVERY DAY FOR gerd Rx Instructions: TAKE ONE CAPSULE BY MOUTH EVERY DAY FOR gerd varenicline [Chantix Starting Month Box] 0.5 mg (11)- 1 mg (42) tablets,dose pack See Rx Instructions PO PER PKG DIR Qty: 53 0RF Rx Instructions: PO PER PKG DIR fluticasone propionate [Allergy Relief (fluticasone)] 50 mcg/actuation spray,suspension 1 spray intranasal DAILY Qty: 16 8RF Rx Instructions: administer into each nostril Vraylar 4.5 mg capsule 4.5 mg PO DAILY Patient Comments: TAKE ONE CAPSULE BY MOUTH AT BEDTIME DIRECTED azelastine 137 mcg (0.1 %) aerosol,spray 137 mcg intranasal BID Qty: 30 2RF Rx Instructions: administer into each nostril cetirizine [All Day Allergy (cetirizine)] 10 mg tablet 10 mg PO DAILY Qty: 30 2RF buspirone 7.5 mg tablet 7.5 mg PO Patient Comments: TAKE ONE TABLET BY MOUTH TWICE DAILY DIRECTED meloxicam 15 mg tablet 15 mg PO DAILY Qty: 30 2RF Trelegy Ellipta 100-62.5-25 mcg blister with device 1 inh inhalation DAILY Qty: 60 2RF ipratropium-albuterol 0.5 mg-3 mg(2.5 mg base)/3 mL solution for nebulization See Rx Instructions .ROUTE .COMPLEX Qty: 180 10RF Dose Instruction: INHALE THE CONTENTS OF 1 VIAL VIA NEBULIZER EVERY 8 HOURS NEEDED FOR SHORTNESS OF BREATH OR wheezing Rx Instructions: INHALE THE CONTENTS OF 1 VIAL VIA NEBULIZER EVERY 8 HOURS NEEDED FOR SHORTNESS OF BREATH OR wheezing albuterol sulfate 90 mcg/actuation HFA aerosol inhaler 4 inh inhalation Q4H PRN (Reason: shortness of breath or wheezing) Qty: 8.5 2RF Rx Instructions: 4 puffs every 4 hours for 48 hours then as needed for shortness of breath or wheezing following phenytoin sodium extended 100 mg capsule See Rx Instructions .ROUTE .COMPLEX Qty: 150 10RF Dose Instruction: TAKE TWO CAPSULES BY MOUTH IN THE MORNING AND TAKE THREE CAPSULES IN THE EVENING Rx Instructions: TAKE TWO CAPSULES BY MOUTH IN THE MORNING AND TAKE THREE CAPSULES IN THE EVENING olanzapine 5 mg tablet See Rx Instructions .ROUTE .COMPLEX Qty: 30 4RF Dose Instruction: TAKE ONE TABLET BY MOUTH EVERY DAY AT BEDTIME NIGHTLY Rx Instructions: TAKE ONE TABLET BY MOUTH EVERY DAY AT BEDTIME NIGHTLY ropinirole 1 mg tablet See Rx Instructions .ROUTE .COMPLEX Qty: 90 3RF Dose Instruction: TAKE ONE TABLET BY MOUTH EVERY DAY AT BEDTIME Rx Instructions: TAKE ONE TABLET BY MOUTH EVERY DAY AT BEDTIME Breztri Aerosphere 160-9-4.8 mcg/actuation HFA aerosol inhaler 2 inh inhalation BID Qty: 10.7 2RF fenofibrate 50 mg capsule 50 mg PO DAILY Qty: 30 2RF atorvastatin 40 mg tablet See Rx Instructions .ROUTE .COMPLEX Qty: 90 3RF Dose Instruction: TAKE ONE TABLET BY MOUTH EVERY DAY Rx Instructions: TAKE ONE TABLET BY MOUTH EVERY DAY baclofen 10 mg tablet 10 mg PO BID Qty: 28 0RF Referrals Follow up/Referrals: Robbie Peterson DO [Primary Care Provider] - See instructions Activity Restrictions/Add. Instructions Additional Instructions/Restrictions: Take medication as prescribed Follow up with your Family Doctor if no improvement or any worsening of symptoms Return if needed Straight to ER if any life threatening symptoms Clinical Impressions Clinical Impression: Otitis media Instructions Patient Instructions: Middle Ear Infection, Meclizine, DI for Vertigo Print Language Print Language: Israeli Discharge ED Provider: Radha Wilder [facility] General Stated complaint: dizzy Mode of Arrival: Ambulatory Source of Information: Patient Limitations: No Limitations Time Seen by Provider: 12/28/23 12:17 Description of Symptoms (Recalled from Triage Doc. by RN): PATIENT C/O INTERMITTEN DIZZINESS X 1 WEEK THAT SEEMS TO COINCIDE WITH HYPO/HYPERGLYCEMIA. PATIENT REPORTS HE IS A NEWLY DIAGNOSED DIABETIC AND STATES HE DOESN'T KNOW MUCH ABOUT THE DISEASE. HE STATES IS NOT CURRENTLY ON MEDCATION FOR DIABETES. PATIENT STATES HE HAS A FOLLOW UP WITH HIS PCP IN JANUARY HEENT Symptoms (Recalled from RN notes): Yes Resp Symptoms (Recalled from RN notes): No Skin Symptoms (Recalled from RN notes): No MS Symptoms (Recalled from RN notes): No Functional Status (Recalled from RN notes): WNL History of Present Illness Provider Complaint: Patient states that he has been having dizzy spells on and off for about a week and feels like the room is spinning around him when it happens He was recently dx with diabetes but he doesnt know much about the disease States he wasnt given any medication or anything for it and is suppose to Follow up next month but he has still been having dizzy spells and worried he may have an inner ear infection or something Related Data Home Medications ?Medication ?Instructions ?Recorded ?Confirmed cariprazine 4.5 mg capsule 4.5 mg PO DAILY 10/13/23 12/19/23 (Vraylar) buspirone 7.5 mg tablet 7.5 mg PO 12/19/23 12/19/23 Previous Rx's ?Medication ?Instructions ?Recorded ipratropium 0.5 mg-albuterol 3 mg See Rx Instructions .Route 01/29/23 (2.5 mg base)/3 mL nebulization .COMPLEX #180 mL soln esomeprazole magnesium 40 mg See Rx Instructions .Route 06/20/23 capsule,delayed release .COMPLEX #90 caps baclofen 10 mg tablet 10 mg PO BID #28 tabs 08/06/23 azelastine 137 mcg (0.1 %) nasal 137 mcg (0.137 mL) intranasal BID 10/13/23 spray #30 mL cetirizine 10 mg tablet (All Day 10 mg PO DAILY #30 tabs 10/13/23 Allergy (cetirizine)) albuterol sulfate 90 mcg/actuation 4 inh inhalation Q4H PRN shortness 11/04/23 aerosol inhaler of breath or wheezing #8.5 grams olanzapine 5 mg tablet See Rx Instructions .Route 11/06/23 .COMPLEX #30 tabs phenytoin sodium extended 100 mg See Rx Instructions .Route 11/06/23 capsule .COMPLEX #150 caps ropinirole 1 mg tablet See Rx Instructions .Route 11/08/23 .COMPLEX #90 tabs budesonide 160 mcg-glycopyr 9 2 inh inhalation BID #10.7 grams 11/12/23 mcg-formot 4.8 mcg/actuation HFA inhaler ([employer] Aerosphere) fluticasone propionate 50 1 spray intranasal DAILY #16 grams 11/12/23 mcg/actuation nasal spray,suspension (Allergy Relief (fluticasone)) varenicline 0.5 mg (11)-1 mg (42) See Rx Instructions PO PER PKG DIR 11/12/23 tablets in a dose pack (Chantix #53 tabs Starting Month Box) fenofibrate 50 mg capsule 50 mg PO DAILY #30 caps 11/17/23 atorvastatin 40 mg tablet See Rx Instructions .Route 11/19/23 .COMPLEX #90 tabs fluticasone fur. 100 mcg-umeclid 1 inh inhalation DAILY COPD #60 ea 12/19/23 62.5 mcg-vilant 25 mcg inhalat.powder (Trelegy Ellipta) meloxicam 15 mg tablet 15 mg PO DAILY #30 tabs 12/19/23 amoxicillin 500 mg capsule 500 mg PO TID 7 days #21 caps 12/28/23 meclizine 25 mg tablet 25 mg PO TID PRN dizziness #12 tabs 12/28/23 Allergies Allergy/AdvReac Type Severity Reaction Status Date / Time alprazolam [From Xanax] Allergy Verified 12/19/23 13:26 fluoxetine [From Prozac] Allergy Verified 12/19/23 13:26 Worker's Comp Is this a Worker's Comp case?: No [facility] Disclaimer: The information contained in this section may have been updated after the patient was seen, as this information can be updated by other users. 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 Shortness of breath Encounter for medical assessment Acute bacterial sinusitis Pharyngitis Nasal polyp Influenza A Migraine HTN (hypertension), benign HLD (hyperlipidemia) Depression Asthma Anxiety Upper respiratory infection Pneumonia Schizophrenia Hepatitis B We will re-check this and send him to Dr. Casas. As mentioned above patient was supposed sees Dr. Casas for his hepatitis B. Will send him. Seizure disorder As mentioned we will refer to Dr. Deng as soon as possible. Aramis is doing much better on his phenytoin at 2 tablets in the morning 3 tablets in the evening. He was only taking 2 tablets a day. His phenytoin levels were extremely low. We will repeat those today but he states he is back on the twice daily dosing as originally prescribed. Chronic obstructive pulmonary disease We will follow this for now. He does have albuterol MDIs. GERD (gastroesophageal reflux disease) 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 H/O vasectomy Hx of tonsillectomy History of arthroscopy of right shoulder History of arthroscopy of left shoulder H/O arthroscopy of right knee Family History Other Cancer 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 Smoking Status: Current every day smoker tobacco type: cigarettes packs per day: 1 second hand exposure: No alcohol intake: never substance use type: former substance user, marijuana and methamphetamine current occupational status: unemployed Travel in the last 8 weeks: None household members: other housing: house number of children: 2 current occupational exposures/hazards: No caffeine: Yes ROS Obtained: Yes All systems reviewed & no additional complaints except as documented and Yes Systems reviewed as appropriate & no additional complaints except as documented Constitutional Constitutional: Reports system reviewed and no additional complaints, except as documented and Reports as per HPI ENT Ears, Nose, Mouth, and Throat: Reports system reviewed and no additional complaints, except as documented, Reports as per HPI, Reports dizziness and Reports otalgia (fullness) Cardiovascular Cardiovascular: Reports system reviewed and no additional complaints, except as documented and Reports as per HPI Respiratory Respiratory: Reports system reviewed and no additional complaints, except as documented and Reports as per HPI Neurologic Neurologic: Reports dizziness Physical Exam General General appearance: alert and in no apparent distress ENT ENT exam: Present mucous membranes moist Expanded ENT Exam TM/Canal exam: Left TM: erythema and bulging Nose exam: Absent sinus tenderness Throat exam: Present normal inspection Respiratory Respiratory exam: Present normal lung sounds bilaterally; Absent respiratory distress or wheezes Cardiovascular Cardiovascular exam: Present regular rate, normal rhythm and normal heart sounds Abdominal Exam Abdominal exam: Present soft and normal bowel sounds; Absent distention or tenderness Neurological Exam Neurological exam: Present alert, oriented X3 and normal gait Medical Decision Making Krishna Inquiry Pt receiving controlled substance: No Krishna was queried for this patient: No Vital Signs: 12/28/23 11:50 Temperature 98.2 F Temperature Source Oral Pulse Rate [Left Brachial] 81 Respiratory Rate 21 Blood Pressure [Left Arm] 130/74 Blood Pressure Mean [Left Arm] 92 Blood Pressure Source [Left Arm] Automatic Cuff Blood Pressure Position [Left Arm] Sitting 02 Sat by Pulse Oximetry 95 Oxygen Delivery Method Room Air Lab Data Lab results reviewed: Yes I reviewed the patient's lab results. Lab Results 12/28/23 11:57: POC Glucose 117 H Orders (Tests/Meds): ORDERS Category Date Time Status POC Glucose,Bedside Routine Lab 12/28/23 11:57 Completed
[2023-12-28 12:31] VITALS: BP 130/74; PULSE 81; RESP 21; TEMP 36.8; O2SAT 95
== END 2023-12-28 12:36 | disposition home or self-care (01) ==
PROVIDERS: Emergency Provider Nurse Practitioner; PCP Internal Medicine
DX: H66.92 Otitis media, unspecified, left ear (principal); R42 Dizziness and giddiness; E11.9 Type 2 diabetes mellitus without complications
CPT/HCPCS: 82962; 99212; 99214; G0463

== ENCOUNTER 2023-12-29 14:21 | Outpatient (CLI) | payer MEDICARE, BC, SELFPAY ==
[2023-12-29 15:35] VITALS: PULSE 67; PULSE 69
[2023-12-29] MEDS: ALBUTEROL 0.083% 2.5 MG/3 ML NEB IH (15:35)
== END 2023-12-29 23:59 | disposition home or self-care (01) ==
LOC: RT 14:24
PROVIDERS: PCP Internal Medicine; Visit Provider Family Medicine
DX: J44.1 Chronic obstructive pulmonary disease with (acute) exacerbation (principal)
CPT/HCPCS: 94060; 94618; 94640; 94726; 94729; J7613

== ENCOUNTER 2024-02-19 13:57 | Outpatient (CLI) | payer MEDICARE, BC, SELFPAY ==
[2024-02-19 20:42] LABS: HIV (1&2) Antibody Rapid NONREACTIVE (NONREACTIVE)
[2024-02-23 14:10] LABS: HCV Ab Reactive (Non Reactive)
== END 2024-02-19 23:59 | disposition home or self-care (01) ==
LOC: LAB.DROPOF 02-20 08:51
PROVIDERS: PCP Family Medicine; Visit Provider Family Medicine
DX: G40.919 Epilepsy, unspecified, intractable, without status epilepticus (principal); Z11.59 Encounter for screening for other viral diseases
CPT/HCPCS: 80185; 86803; 87389

== ENCOUNTER 2024-03-08 12:30 | Outpatient (CLI) | payer MEDICARE, BC, SELFPAY ==
--- NOTE | 2024-03-08 | ECG_ITS ---
APPROVED REPORT Exam: Resting ECG HR:56 bpm ECG Measurements Heart Rate 56 AXES MD 167 P 76 QRSd 117 QRS 67 QT 383 T 55 QTc 375 Conclusion SINUS BRADYCARDIA MODERATE INTRAVENTRICULAR CONDUCTION DELAY [110+ ms QRS DURATION] BORDERLINE ECG UNCONFIRMED REPORT Electronically signed by : Augustine Garcias MD 03/09/2024 20:56:51
[2024-03-09 12:13] LABS: Hepatitis B Core Antibody, IgM Negative (Negative); Hepatitis Be Antibody Reactive (Negative)
[2024-03-10 21:08] LABS: HBV IU/mL HBV DNA not detected IU/mL (.)
[2024-03-11 05:10] LABS: ALT (SGPT) P5P 23 IU/L (0-55); Alpha 2-Macroglobulins, Qn 296 mg/dL (110-276); Apolipoprotein A-1 129 mg/dL (101-178); Bilirubin, Total <0.1 mg/dL (0.0-1.2); Fibrosis Score 0.24 (0.00-0.21); Fibrosis Stage F0-F1 (.); GGT 64 IU/L (0-65); Haptoglobin 133 mg/dL (29-370); Necroinflammat Activity Grade A0-No activity (.); Necroinflammat Activity Score 0.09 (0.00-0.17)
[2024-03-15 13:30] LABS: Hepatitis C Quant. HCV Not Detected IU/mL (.)
[2024-03-17 08:23] LABS: Hepatitis B Surface Antigen NEGATIVE
== END 2024-03-08 23:59 | disposition home or self-care (01) ==
PROVIDERS: PCP Internal Medicine; Visit Provider Nurse Practitioner Family
DX: B18.2 Chronic viral hepatitis C (principal); B18.1 Chronic viral hepatitis B without delta-agent; R76.8 Other specified abnormal immunological findings in serum
CPT/HCPCS: 36415; 81517; 86705; 86706; 86707; 87340; 87517; 87522; 93005

== ENCOUNTER 2024-03-25 11:03 | Emergency (ER) | payer MEDICARE, BC, SELFPAY ==
--- NOTE | 2024-03-25 11:04 | XR_ITS ---
FINAL REPORT CLINICAL HISTORY: PAIN x 1 month, no known trauma FINDINGS: Left wrist Three views were obtained. There is no fracture or dislocation. The joint spaces appear normal. No soft tissue abnormality is identified. IMPRESSION: No acute process. Reviewed, Interpreted and Dictated by Evgeny Rosales III, MD Transcribed by Mishel Lutz Authenticated and [facility]
[2024-03-25 11:40] VITALS: BP 127/85; PULSE 90; RESP 20; TEMP 36.8; O2SAT 95; BMI 26.9
--- NOTE | 2024-03-25 11:42 | EXP.UTC ---
Discharge Plan Disposition Patient Disposition: Home, Self-Care Condition: Good Prescriptions Prescriptions: No Action atorvastatin 40 mg tablet 40 mg PO DAILY Patient Comments: TAKE ONE TABLET BY MOUTH EVERY DAY cetirizine 10 mg tablet 10 mg PO DAILY Patient Comments: TAKE ONE TABLET BY MOUTH EVERY DAY meloxicam 15 mg tablet 15 mg PO DAILY Patient Comments: TAKE ONE TABLET BY MOUTH EVERY DAY --TAKE WITH FOOD-- olanzapine 5 mg tablet 5 mg PO BID Patient Comments: TAKE ONE TABLET BY MOUTH TWICE DAILY phenytoin sodium extended 100 mg capsule 100 mg PO DAILY Patient Comments: TAKE TWO CAPSULES BY MOUTH EVERY MORNING AND ONE CAPSULE EVERY EVENING esomeprazole magnesium 40 mg capsule,delayed release(DR/EC) 40 mg PO DAILY Patient Comments: TAKE ONE CAPSULE BY MOUTH EVERY DAY FOR GERD buspirone 10 mg tablet 10 mg PO TID Patient Comments: TAKE ONE TABLET BY MOUTH THREE TIMES DAILY FOR ANXIETY azelastine 137 mcg (0.1 %) spray,non-aerosol 1 spray INTRANASAL BID Patient Comments: USE 1 SPRAY in each nostril twice daily as directed albuterol sulfate 90 mcg/actuation HFA aerosol inhaler 4 puff INHALATION Q4HP PRN (Reason: SOA) Patient Comments: inhale 4 puffs by MOUTH EVERY 4 HOURS NEEDED FOR SHORTNESS OF BREATH OR wheezing FOR 48 hours THEN inhale NEEDED FOR SHORTNESS OF BREATH OR wheezing fluticasone propionate 50 mcg/actuation spray,suspension 1 spray INTRANASAL DAILY Patient Comments: instill 1 SPRAY IN EACH NOSTRIL EVERY DAY duloxetine 60 mg capsule,delayed release(DR/EC) 60 mg PO DAILY Patient Comments: TAKE ONE CAPSULE BY MOUTH EVERY DAY FOR DEPRESSION Trelegy Ellipta 100-62.5-25 mcg blister with device 1 ea INHALATION DAILY Patient Comments: INHALE 1 PUFF BY MOUTH EVERY DAY FOR copd Referrals Follow up/Referrals: Robbie Peterson, [Primary Care Provider] - See instructions Activity Restrictions/Add. Instructions Additional Instructions/Restrictions: *RICE, Rest the extremity, Ice 15-20 minutes 3-4 times daily, Compress- wear the elena wrap as discussed as much as possible to help reduce swelling and pain, Elevate the extremity when at rest *Velcro wrist splint is for support and help control swelling, use it except in the shower. Be sure that is not to tight but not to loose either *Elevate when resting? *Ibuprofen 600-800mg every 6-8 hours as needed for pain an inflammation. If need something more can take Tylenol in between doses of Ibuprofen to help Immediately follow up with your family doctor for new or worsening of symptoms, or no noticeable improvement over the next 3-5 days Call back to [facility] later this evening for the official reading of your xray Clinical Impressions Clinical Impression: Pain, wrist Qualifiers: Laterality: left Qualified Code(s): M25.532 - Pain in left wrist Instructions Patient Instructions: DI for Wrist Pain, Ibuprofen Print Language Print Language: Romanian Discharge ED Provider: Radha Wilder [facility] [place] HPI General Stated complaint: left wrist pain Time Seen by Provider: 03/25/24 11:43 History of Present Illness Provider Complaint: Patient states that he has been having pain in his left wrist on and off for about a year Denies known injury States that he can move it up and down but hurts at times States today it was aggravating him so he came in to get it checked Denies swelling denies new injury Related Data Home Medications ?Medication ?Instructions ?Recorded ?Confirmed albuterol sulfate 90 mcg/actuation 4 puff inhalation Q4HP PRN SOA 03/25/24 03/25/24 aerosol inhaler atorvastatin 40 mg tablet 40 mg PO DAILY 03/25/24 03/25/24 azelastine 137 mcg (0.1 %) nasal 1 spray intranasal BID 03/25/24 03/25/24 spray buspirone 10 mg tablet 10 mg PO TID 03/25/24 03/25/24 cetirizine 10 mg tablet 10 mg PO DAILY 03/25/24 03/25/24 duloxetine 60 mg capsule,delayed 60 mg PO DAILY 03/25/24 03/25/24 release esomeprazole magnesium 40 mg 40 mg PO DAILY 03/25/24 03/25/24 capsule,delayed release fluticasone fur. 100 mcg-umeclid 1 ea inhalation DAILY 03/25/24 03/25/24 62.5 mcg-vilant 25 mcg inhalat.powder (Trelegy Ellipta) fluticasone propionate 50 1 spray intranasal DAILY 03/25/24 03/25/24 mcg/actuation nasal spray,suspension meloxicam 15 mg tablet 15 mg PO DAILY 03/25/24 03/25/24 olanzapine 5 mg tablet 5 mg PO BID 03/25/24 03/25/24 phenytoin sodium extended 100 mg 100 mg PO DAILY 03/25/24 03/25/24 capsule Allergies Allergy/AdvReac Type Severity Reaction Status Date / Time alprazolam (From Xanax) Allergy Verified 03/08/24 11:07 fluoxetine (From Prozac) Allergy Verified 03/08/24 11:07 [facility] Disclaimer: The information contained in this section may have been updated after the patient was seen, as this information can be updated by other users. 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 Tear of lateral meniscus of left knee Pes anserinus bursitis of left knee Chest pain Pain in wrist Epididymitis Acute exacerbation of chronic obstructive pulmonary disease Acute exacerbation of chronic obstructive pulmonary disease General weakness Abnormal x-ray of knee Left knee pain COPD exacerbation Encounter for medical assessment Trigger finger of right hand Popping of right knee joint Family history of cancer Encounter for screening colonoscopy Lesion of penis Right hand pain Orchalgia Laceration of ear lobe Elevated liver function tests Medial epicondylitis of left elbow Finger fracture, right UTI (urinary tract infection) Nausea & vomiting Throat pain in adult Trichomonas contact Abdominal pain Nausea Contusion of right elbow Nasal bone fracture Sinusitis Jaundice Bilateral shoulder pain Shoulder pain, left Hand fracture, right Hand pain, right Contusion Elbow contusion Sting, insect Chronic chest pain Superficial skin lesion Hemorrhoids Left wrist sprain Acute flank pain URI (upper respiratory infection) Left elbow pain Ankle pain Atypical chest pain Bursitis of left elbow Vomiting Rib pain on right side Seizure-like activity Acute exacerbation of chronic obstructive airways disease Acute and chronic respiratory failure with hypoxia Scalp abrasion Subtherapeutic serum dilantin level Pharyngitis Testicular pain, right Mid back pain I would follow this for now. Chest pain Chronic groin pain Otitis media Shortness of breath Encounter for medical assessment Acute bacterial sinusitis Pharyngitis Nasal polyp Influenza A Migraine HTN (hypertension), benign HLD (hyperlipidemia) Depression Asthma Anxiety Upper respiratory infection Pneumonia Schizophrenia Hepatitis B We will re-check this and send him to Dr. Casas. As mentioned above patient was supposed sees Dr. Casas for his hepatitis B. Will send him. Seizure disorder Chronic obstructive pulmonary disease We will follow this for now. He does have albuterol MDIs. GERD (gastroesophageal reflux disease) 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 H/O vasectomy Hx of tonsillectomy History of arthroscopy of right shoulder History of arthroscopy of left shoulder H/O arthroscopy of right knee Family History Other Cancer 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 (Updated 03/08/24 @ 16:38 by Lula Hein APRN) Smoking Status: Current every day smoker tobacco type: cigarettes packs per day: 1 second hand exposure: No alcohol intake: never substance use type: former substance user, marijuana and methamphetamine current occupational status: unemployed Travel in the last 8 weeks: None household members: other housing: house number of children: 2 current occupational exposures/hazards: No caffeine: Yes ROS Obtained: Yes All systems reviewed & no additional complaints except as documented and Yes Systems reviewed as appropriate & no additional complaints except as documented Constitutional Constitutional: Reports system reviewed and no additional complaints, except as documented and Reports as per HPI Eyes Eyes: Reports system reviewed and no additional complaints, except as documented and Reports as per HPI ENT Ears, Nose, Mouth, and Throat: Reports system reviewed and no additional complaints, except as documented and Reports as per HPI Cardiovascular Cardiovascular: Reports system reviewed and no additional complaints, except as documented and Reports as per HPI Respiratory Respiratory: Reports system reviewed and no additional complaints, except as documented and Reports as per HPI Musculoskeletal Musculoskeletal: Reports system reviewed and no additional complaints, except as documented and Reports as per HPI Comments: Pain in left wrist for 1 yr denies known injury Physical Exam General General appearance: alert and in no apparent distress ENT ENT exam: Present mucous membranes moist Respiratory Respiratory exam: Present normal lung sounds bilaterally; Absent respiratory distress or wheezes Cardiovascular Cardiovascular exam: Present regular rate, normal rhythm and normal heart sounds Abdominal Exam Abdominal exam: Present soft and normal bowel sounds; Absent distention or tenderness Expanded Upper Extremity Exam Left: Forearm/Wrist exam: Present tenderness; Absent swelling, abrasion, laceration, ecchymosis, deformity or erythema Hand exam: Present normal inspection and full ROM Neurological Exam Neurological exam: Present alert, oriented X3 and normal gait Medical Decision Making Medical Records Screening: Per USPSTF and CDC recommendations, given the prevalence of disease in our region, it is our hospital?s policy to screen for HIV and viral Hepatitis for all patients aged 18 and over and those with ongoing risk factors. Krishna Inquiry Pt receiving controlled substance: No Krishna was queried for this patient: No Orders (Tests/Meds): ORDERS Category Date Time Status XR wrist LT min 3V Stat Exams 03/25/24 11:04 Taken Radiology Data #1: Image(s): Wrist Image Reviewed: Yes I reviewed the patient's radiology image No acute finding Procedures Orthopedic Splinting/Casting Injury #1: Side: left Upper Extremity Injury Location: wrist Upper Extremity Immobilizer: wrist splint and applied by nurse/dr sanchez Post Cast/Splinting Neuro Status: intact and no change Post Cast/Splinting Vasc Status: intact and no change
[2024-03-25 11:58] VITALS: BP 127/85; PULSE 90; RESP 20; TEMP 36.8; O2SAT 95
== END 2024-03-25 12:07 | disposition home or self-care (01) ==
PROVIDERS: Emergency Provider Nurse Practitioner; PCP Internal Medicine
DX: M25.532 Pain in left wrist (principal)
CPT/HCPCS: 73110; 99212; G0381

== ENCOUNTER 2024-04-22 11:20 | Outpatient (CLI) | payer MEDICARE, SELFPAY ==
--- NOTE | 2024-04-22 11:26 | CT_ITS ---
FINAL REPORT TECHNIQUE: Axial images were obtained from the lung apex to the mid abdomen by computed tomography. This study was performed with techniques to keep radiation doses as low as reasonably achievable (ALARA). Individualized dose reduction techniques using automated exposure control or adjustment of mA and/or kV according to the patient's size were employed. CLINICAL HISTORY: lung cancer screening CURRENT SMOKER 1 PPD, 30 YEARS COPD, ASTHMA FINDINGS: CHEST CT LOW DOSE CTDI vol (mGy): 2.90 DLP (mGy-cm): 111.25 There is no axillary adenopathy. There is no hilar or mediastinal adenopathy. The heart is normal in size. There is no pericardial or pleural effusion. Lung window images demonstrate no suspicious infiltrate or nodule. There are moderate changes of centrilobular emphysema. Limited images of the upper abdomen are unremarkable. IMPRESSION: Lung RADS category 1. Recommend 12 month follow-up low-dose chest CT. Reviewed, Interpreted and Dictated by Vlad Duran MD Transcribed by Mishel Lutz Authenticated and [facility]
== END 2024-04-22 23:59 | disposition home or self-care (01) ==
PROVIDERS: PCP Internal Medicine; Visit Provider Internal Medicine
DX: F17.210 Nicotine dependence, cigarettes, uncomplicated (principal)
CPT/HCPCS: 71271

== ENCOUNTER 2024-05-04 12:41 | Outpatient (CLI) | payer MEDICARE, SELFPAY ==
[2024-05-18 16:25] LABS: Alpha-1-Antitrypsin 136 mg/dL (101-187)
== END 2024-05-04 23:59 | disposition home or self-care (01) ==
LOC: LAB 12:42
PROVIDERS: PCP Internal Medicine; Visit Provider Internal Medicine Pulmonary Disease
DX: J43.9 Emphysema, unspecified (principal)
CPT/HCPCS: 36415; 82103; 82104

== ENCOUNTER 2024-05-21 21:48 | Outpatient (CLI) | payer MEDICARE, SELFPAY ==
[2024-05-21 22:13] LABS: Hemoglobin A1C 5.5 % (4.0-6.0)
[2024-05-21 22:29] LABS: Phenytoin (Dilantin) 5.7 ug/ml (10-20)
== END 2024-05-21 23:59 | disposition home or self-care (01) ==
LOC: LAB 21:49
PROVIDERS: PCP Family Medicine; Visit Provider Family Medicine
DX: G40.919 Epilepsy, unspecified, intractable, without status epilepticus (principal); Z87.898 Personal history of other specified conditions; F41.9 Anxiety disorder, unspecified; J43.9 Emphysema, unspecified; Z71.6 Tobacco abuse counseling; F17.210 Nicotine dependence, cigarettes, uncomplicated; J44.9 Chronic obstructive pulmonary disease, unspecified; R93.2 Abnormal findings on diagnostic imaging of liver and biliary tract; F33.2 Major depressive disorder, recurrent severe without psychotic features; F07.81 Postconcussional syndrome; Z79.899 Other long term (current) drug therapy; G40.319 Generalized idiopathic epilepsy and epileptic syndromes, intractable, without status epilepticus; B18.1 Chronic viral hepatitis B without delta-agent; B18.2 Chronic viral hepatitis C
CPT/HCPCS: 80185; 83036

== ENCOUNTER 2024-06-20 15:01 | Emergency (ER) | payer MEDICARE, MEDICAID, SELFPAY ==
[2024-06-20 15:06] VITALS: BP 204/114; PULSE 115; RESP 18; TEMP 36.1; O2SAT 96
--- NOTE | 2024-06-20 15:51 | XR_ITS ---
PROCEDURE INFORMATION: Exam: XR Right Hand Exam date and time: 06/20/2024 3:59 PM Age: 54 years old Clinical indication: Mass or lump; Fingers; Right; Additional info: 4th digit dip bony growth. Was broken 2 yrs ago TECHNIQUE: Imaging protocol: Radiologic exam of the right hand. Views: 3 or more views. COMPARISON: CR XR HAND RT MIN 3V 12/04/2022 2:40 PM FINDINGS: Bones/joints: Degenerative changes in the thumb metacarpal phalangeal joint. There is no evidence of acute fracture.There is no evidence of malalignment or dislocation. Soft tissues: Stable Osteophyte formation of the dorsal lip of the distal phalanx of the ring finger within the D IP joint.. IMPRESSION: 1. Stable Osteophyte formation of the dorsal lip of the distal phalanx of the ring finger within the D IP joint.. 2. There is no evidence of acute fracture.There is no evidence of malalignment or dislocation.
--- NOTE | 2024-06-20 15:51 | HMH.EDGENADL ---
Discharge Plan Disposition Patient Disposition: Home, Self-Care Condition: Good Prescriptions Prescriptions: No Action Trelegy Ellipta 100-62.5-25 mcg blister with device 1 inh inhalation DAILY 90 Days Qty: 60 2RF albuterol sulfate 90 mcg/actuation HFA aerosol inhaler 2 inh inhalation QID PRN (Reason: shortness of breath or wheezing) Qty: 8.5 2RF duloxetine 60 mg capsule,delayed release(DR/EC) 60 mg PO DAILY Qty: 90 3RF meloxicam 15 mg tablet See Rx Instructions .ROUTE .COMPLEX Qty: 30 2RF Dose Instruction: TAKE ONE TABLET BY MOUTH EVERY DAY --TAKE WITH FOOD-- Rx Instructions: TAKE ONE TABLET BY MOUTH EVERY DAY --TAKE WITH FOOD-- esomeprazole magnesium 40 mg capsule,delayed release(DR/EC) See Rx Instructions .ROUTE .COMPLEX Qty: 90 2RF Dose Instruction: TAKE ONE CAPSULE BY MOUTH EVERY DAY FOR GERD Rx Instructions: TAKE ONE CAPSULE BY MOUTH EVERY DAY FOR GERD cetirizine 10 mg tablet 10 mg PO DAILY Qty: 90 0RF phenytoin sodium extended 100 mg capsule 100 mg PO DAILY Qty: 120 3RF buspirone 10 mg tablet See Rx Instructions .ROUTE .COMPLEX Qty: 90 0RF Dose Instruction: TAKE ONE TABLET BY MOUTH THREE TIMES DAILY FOR ANXIETY Rx Instructions: TAKE ONE TABLET BY MOUTH THREE TIMES DAILY FOR ANXIETY atorvastatin 40 mg tablet 40 mg PO DAILY Patient Comments: TAKE ONE TABLET BY MOUTH EVERY DAY olanzapine 5 mg tablet 5 mg PO BID Patient Comments: TAKE ONE TABLET BY MOUTH TWICE DAILY azelastine 137 mcg (0.1 %) spray,non-aerosol 1 spray INTRANASAL BID Patient Comments: USE 1 SPRAY in each nostril twice daily as directed albuterol sulfate 90 mcg/actuation HFA aerosol inhaler 4 puff INHALATION Q4HP PRN (Reason: SOA) Patient Comments: inhale 4 puffs by MOUTH EVERY 4 HOURS NEEDED FOR SHORTNESS OF BREATH OR wheezing FOR 48 hours THEN inhale NEEDED FOR SHORTNESS OF BREATH OR wheezing fluticasone propionate 50 mcg/actuation spray,suspension 1 spray INTRANASAL DAILY Patient Comments: instill 1 SPRAY IN EACH NOSTRIL EVERY DAY Trelegy Ellipta 100-62.5-25 mcg blister with device 1 ea INHALATION DAILY Patient Comments: INHALE 1 PUFF BY MOUTH EVERY DAY FOR copd Referrals Follow up/Referrals: Kiel Owens DO [Staff Physician] - See instructions Robbie Peterson DO [Primary Care Provider] - See instructions Activity Restrictions/Add. Instructions Additional Instructions/Restrictions: You were seen for finger pain and have an osteophyte on Xray. Please follow up with orthopedics. Clinical Impressions Clinical Impression: Osteophyte Instructions Patient Instructions: DI for Hand Pain Print Language Print Language: [place] Discharge ED Provider: Naif Oleary General Adult HPI <NANETTE Mclean - Last Filed: 06/20/24 22:27> General Chief complaint: Extremity Injury, Upper Stated complaint: right hand pain on ring finger Time Seen by Provider: 06/20/24 15:39 Mode of Arrival: Ambulatory Source of Information: Patient Description of Symptoms (Recalled from ER Triage Doc. by RN): Patient presents ambulatory to triage. Patient appears anxious and restless. States his ring finger on his right hand is hurting. States he broke that hand 2 years ago. Points to his first knuckle and states, There's a knot right here. I think that's a piece of the bone about to come through the skin. Denies any medication prior to arrival. History of Present Illness HPI narrative: Patient presents with right 4th digit pain. He had a fracture 2 years ago and noted pain today. He denies recent injury. He has FROM. No F/C/N/V. complaint: finger pain Onset (ago): day(s) (1) Location: right and upper extremity Radiation: non-radiation Severity: mild Quality: other (tender) Consistency: constant Relieving factors: none Exacerbating factors: none Associated symptoms: denies other symptoms Related Data Home Medications ?Medication ?Instructions ?Recorded ?Confirmed albuterol sulfate 90 mcg/actuation 4 puff inhalation Q4HP PRN SOA 03/25/24 06/20/24 aerosol inhaler atorvastatin 40 mg tablet 40 mg PO DAILY 03/25/24 06/20/24 azelastine 137 mcg (0.1 %) nasal 1 spray intranasal BID 03/25/24 06/20/24 spray fluticasone fur. 100 mcg-umeclid 1 ea inhalation DAILY 03/25/24 06/20/24 62.5 mcg-vilant 25 mcg inhalat.powder (Trelegy Ellipta) fluticasone propionate 50 1 spray intranasal DAILY 03/25/24 06/20/24 mcg/actuation nasal spray,suspension olanzapine 5 mg tablet 5 mg PO BID 03/25/24 06/20/24 Previous Rx's ?Medication ?Instructions ?Recorded duloxetine 60 mg capsule,delayed 60 mg PO DAILY #90 caps 04/20/24 release meloxicam 15 mg tablet See Rx Instructions .Route 04/21/24 .COMPLEX #30 tabs albuterol sulfate 90 mcg/actuation 2 inh inhalation QID PRN shortness 05/04/24 aerosol inhaler of breath or wheezing #8.5 grams fluticasone fur. 100 mcg-umeclid 1 inh inhalation DAILY COPD 90 05/04/24 62.5 mcg-vilant 25 mcg days #60 ea inhalat.powder (Trelegy Ellipta) esomeprazole magnesium 40 mg See Rx Instructions .Route 05/20/24 capsule,delayed release .COMPLEX #90 caps cetirizine 10 mg tablet 10 mg PO DAILY #90 tabs 05/21/24 phenytoin sodium extended 100 mg 100 mg PO DAILY #120 caps 05/24/24 capsule buspirone 10 mg tablet See Rx Instructions .Route 06/19/24 .COMPLEX #90 tabs Allergies Allergy/AdvReac Type Severity Reaction Status Date / Time alprazolam (From Xanax) Allergy Unknown Verified 06/20/24 15:12 allergy reaction fluoxetine (From Prozac) Allergy Unknown Verified 06/20/24 15:12 allergy reaction PFS <NANETTE Mclean - Last Filed: 06/20/24 22:27> [facility] Disclaimer: The information contained in this section may have been updated after the patient was seen, as this information can be updated by other users. 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 Pulmonary emphysema Tobacco abuse counseling Tobacco abuse Smoking greater than 30 pack years COPD mixed type Tear of lateral meniscus of left knee Pes anserinus bursitis of left knee Chest pain Pain in wrist Epididymitis Acute exacerbation of chronic obstructive pulmonary disease Acute exacerbation of chronic obstructive pulmonary disease General weakness Abnormal x-ray of knee Left knee pain COPD exacerbation Encounter for medical assessment Trigger finger of right hand Popping of right knee joint Family history of cancer Encounter for screening colonoscopy Lesion of penis Right hand pain Orchalgia Laceration of ear lobe Elevated liver function tests Medial epicondylitis of left elbow Finger fracture, right UTI (urinary tract infection) Nausea & vomiting Throat pain in adult Trichomonas contact Abdominal pain Nausea Contusion of right elbow Nasal bone fracture Sinusitis Jaundice Bilateral shoulder pain Shoulder pain, left Hand fracture, right Hand pain, right Contusion Elbow contusion Sting, insect Chronic chest pain Superficial skin lesion Hemorrhoids Left wrist sprain Acute flank pain URI (upper respiratory infection) Left elbow pain Ankle pain Atypical chest pain Bursitis of left elbow Vomiting Rib pain on right side Seizure-like activity Acute exacerbation of chronic obstructive airways disease Acute and chronic respiratory failure with hypoxia Scalp abrasion Subtherapeutic serum dilantin level Pharyngitis Testicular pain, right Mid back pain I would follow this for now. Chest pain Chronic groin pain Otitis media Shortness of breath Encounter for medical assessment Acute bacterial sinusitis Pharyngitis Nasal polyp Influenza A Migraine HTN (hypertension), benign HLD (hyperlipidemia) Depression Asthma Anxiety Upper respiratory infection Pneumonia Schizophrenia Hepatitis B Seizure disorder Chronic obstructive pulmonary disease We will follow this for now. He does have albuterol MDIs. GERD (gastroesophageal reflux disease) 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 H/O vasectomy Hx of tonsillectomy History of arthroscopy of right shoulder History of arthroscopy of left shoulder H/O arthroscopy of right knee Family History Other Cancer 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 Smoking Status: Current every day smoker tobacco type: cigarettes packs per day: 1 second hand exposure: No alcohol intake: never substance use type: former substance user, marijuana and methamphetamine current occupational status: unemployed Travel in the last 8 weeks: None household members: other housing: house number of children: 2 current occupational exposures/hazards: No caffeine: Yes Have you lived/traveled outside [place] in past 30 days?: No Contact w/someone who lives/traveled outside [place] past 30 days?: No Exposure to someone with infectious disease in past 14 days?: No Do you have a fever (greater than 100.4 F or 38 C)?: No Have you tested positive for COVID-19: No Exposed to someone with COVID-19 in past 14 days?: No Do you have a sore throat?: No Do you have a cough?: No Do you have any weakness?: No Do you have any diarrhea?: No Are you experiencing any unusual bleeding?: No Do you have any muscle aches/pain?: No Do you have any abdominal pain?: No Are you experiencing loss of taste or smell?: No Other 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 Have you received the Flu Vaccine for this season: No Have you received the Pneumonia Vaccine: Yes <NANETTE Mclean - Last Filed: 06/20/24 22:27> ROS Obtained: Yes Systems reviewed as appropriate & no additional complaints except as documented Physical Exam <NANETTE Mclean - Last Filed: 06/20/24 22:27> General General appearance: alert and in no apparent distress Head Head exam: atraumatic and normocephalic Eye Eye exam: Present normal appearance and EOMI Chest Chest inspection: Present symmetric chest wall rise Respiratory Respiratory exam: Present normal lung sounds bilaterally; Absent wheezes or stridor Cardiovascular Cardiovascular exam: Present regular rate and normal rhythm; Absent systolic murmur Extremities Exam Extremities exam: Present full ROM Expanded Upper Extremity Exam Right: Hand exam: Present full ROM, tenderness and other (Right 4th digit slight bony prominence of the DIP, N/V intact, FROM ); Absent swelling Neurological Exam Neurological exam: Present alert and oriented X3 Psychiatric Psychiatric exam: Present normal affect and normal mood Skin Skin exam: Present warm, dry and intact Medical Decision Making <NANETTE Mclean - Last Filed: 06/20/24 22:27> Medical Records Screening: Per USPSTF and CDC recommendations, given the prevalence of disease in our region, it is our hospital?s policy to screen for HIV and viral Hepatitis for all patients aged 18 and over and those with ongoing risk factors. Krishna Inquiry Pt receiving controlled substance: No Vital Signs: 06/20/24 15:06 06/20/24 17:29 Temperature 97.0 F L 98.9 F Temperature Source Temporal Artery Scan Pulse Rate 101 H Pulse Rate [Radial] 115 H Respiratory Rate 18 20 Blood Pressure 148/94 H Blood Pressure [R Arm] 204/114 H Blood Pressure Mean [R Arm] 144 Blood Pressure Source [R Arm] Automatic Cuff 02 Sat by Pulse Oximetry 96 Oxygen Delivery Method Room Air Orders (Tests/Meds): ORDERS Category Date Time Status Hand XR right minimum 3 views [XR hand RT min 3V] Stat Exams 06/20/24 15:51 Completed Medical Decision Narrative: In summary patient is a 54-year-old male who presents the emergency department for evaluation of finger. Patient is hypertensive, tachycardic upon arrival, afebrile. Mild tenderness and bony prominence of the right fourth finger. Differential diagnosis includes arthritis, fracture, gouty tophi, bony growth. Initial workup will be conducted with x-ray. Initial workup reviewed by me reveals osteophyte in DIP joint fourth digit. U Given this patient is appropriate for discharge home with follow-up with orthopedics. . <Naif Oleary MD - Last Filed: 06/20/24 23:10> Vital Signs: 06/20/24 15:06 06/20/24 17:29 Temperature 97.0 F L 98.9 F Temperature Source Temporal Artery Scan Pulse Rate 101 H Pulse Rate [Radial] 115 H Respiratory Rate 18 20 Blood Pressure 148/94 H Blood Pressure [R Arm] 204/114 H Blood Pressure Mean [R Arm] 144 Blood Pressure Source [R Arm] Automatic Cuff 02 Sat by Pulse Oximetry 96 Oxygen Delivery Method Room Air Orders (Tests/Meds): ORDERS Category Date Time Status Hand XR right minimum 3 views [XR hand RT min 3V] Stat Exams 06/20/24 15:51 Completed Medical Decision Narrative: In summary patient is a 54-year-old male who presents the emergency department for evaluation of finger. Patient is hypertensive, tachycardic upon arrival, afebrile. Mild tenderness and bony prominence of the right fourth finger. Differential diagnosis includes arthritis, fracture, gouty tophi, bony growth. Initial workup will be conducted with x-ray. Initial workup reviewed by me reveals osteophyte in DIP joint fourth digit. U Given this patient is appropriate for discharge home with follow-up with orthopedics. I was consulted by the AGUILAR, and we discussed the complexity of the problems being addressed.I approved the treatment and management plan for this patient?s care in the Emergency Department, thus performing a substantive portion of the medical decision making.Signed, Naif Oleary MD [place] . Critical Care <NANETTE Mclean - Last Filed: 06/20/24 22:27> Critical Care Time Critical Care Time: No
[2024-06-20 17:29] VITALS: BP 148/94; PULSE 101; RESP 20; TEMP 37.2; O2SAT 97
== END 2024-06-20 17:30 | disposition home or self-care (01) ==
PROVIDERS: Emergency Provider Emergency Medicine; PCP Internal Medicine
DX: M25.70 Osteophyte, unspecified joint (principal); M79.644 Pain in right finger(s); F17.210 Nicotine dependence, cigarettes, uncomplicated
CPT/HCPCS: 73130; 99283

== ENCOUNTER 2024-06-21 13:15 | Outpatient (CLI) | payer MEDICARE, MEDICAID, SELFPAY ==
[2024-06-21 20:46] LABS: Phenytoin (Dilantin) 7.7 ug/ml (10-20)
== END 2024-06-21 23:59 | disposition home or self-care (01) ==
LOC: LAB.DROPOF 06-22 11:54
PROVIDERS: PCP Family Medicine; Visit Provider Family Medicine
DX: Z51.81 Encounter for therapeutic drug level monitoring (principal); M25.70 Osteophyte, unspecified joint
CPT/HCPCS: 80185

== ENCOUNTER 2024-07-03 10:12 | Emergency (ER) | payer MEDICARE, MEDICAID, SELFPAY ==
[2024-07-03 10:13] VITALS: BP 133/103; PULSE 97; RESP 22; TEMP 36.8; O2SAT 97; BMI 28.5
[2024-07-03 10:14] VITALS: BMI 28.5
--- NOTE | 2024-07-03 10:15 | PC.NURSE ---
rt aware of vbg
[2024-07-03 10:19] LABS: Coronavirus 19, PCR Not Detected (NotDetected); Influenza A, PCR Not Detected (NotDetected); Influenza B, PCR Not Detected (NotDetected)
[2024-07-03 10:21] LABS: Basophils # 0.1 K/mm3 (0-0.2); Basophils % 1.4 % (0.1-2.0); Eosinophils # 0.9 K/mm3 (0.0-0.4); Hematocrit 46.1 % (42.0-52.0); Lymphocytes # 2.3 K/mm3 (0.7-4.5); Mean Corpuscular HGB Conc 34.7 g/dL (31.8-35.4); Mean Corpuscular Hemoglobin 33.8 pg (27.0-31.2); Mean Corpuscular Volume 97.5 fl (80-94); Mean Platelet Volume 10.3 fl (7.4-10.4); Monocytes # 1.5 K/mm3 (0.1-1.0); Monocytes % 18.4 % (1.7-9.3); Neutrophils # 3.2 K/mm3 (1.8-7.8); Platelet Count 189 K/mm3 (142-424); Red Blood Count 4.73 M/mm3 (4.60-6.20); Red Cell Distribution Width 12.8 % (11.5-17.5)
--- NOTE | 2024-07-03 10:21 | ECG_ITS ---
APPROVED REPORT Exam: Resting ECG HR:82 bpm ECG Measurements Heart Rate 82 AXES MD 163 P 54 QRSd 108 QRS 9 QT 359 T 36 QTc 397 Conclusion SINUS RHYTHM WITH OCCASIONAL VENTRICULAR PREMATURE COMPLEXES BORDERLINE ECG UNCONFIRMED REPORT Electronically signed by : Wang Chen, 07/03/2024 13:44:40
[2024-07-03 10:24] LABS: Lactate Venous 1.4 mmol/L (0.4-2.0); VBG Base Excess -3.3 mmol/L (-2.4-2.3); VBG HCO3 21.9 mmol/L (23-30); VBG Oxygen Saturation 99.2 % (50-70); VBG PCO2 37.9 mmol/L (35-51); VBG PH 7.38 mmol/L (7.31-7.41); VBG PO2 173.1 mmol/L (28-40)
[2024-07-03 10:30] VITALS: BP 127/82; PULSE 92; RESP 18; O2SAT 94
[2024-07-03 10:35] LABS: Sodium 138 mmol/L (136-145)
[2024-07-03 10:36] LABS: Alanine Aminotransferase 34 U/L (12-78); Albumin Level 4.9 g/dl (3.5-5.0); Albumin/Globulin Ratio 1.8 (1.1-1.8); Alkaline Phosphatase 65 U/L (38-126); Anion Gap 11.3 mEq/L (5-15); Aspartate Amino Transferase 41 U/L (17-59); Bilirubin,Total 0.7 mg/dl (0.2-1.3); Blood Urea Nitrogen 14 mg/dl (9-20); Calcium 8.9 mg/dl (8.4-10.2); Carbon Dioxide 25 mmol/L (22.0-30.0); Chloride 106 mmol/L (98-107); Creatinine Clearance Estimated 95 mL/min (50-200); Estimated Glomerular Filt Rate 70 ml/min (>60); GFR (African American) 85 ML/MIN (>60); Globulin 2.7 g/dL (1.3-3.2); Glucose 95 mg/dl (74-100); Potassium 4.3 mmoL/L (3.5-5.1); Total Protein,Serum 7.6 g/dl (6.3-8.2)
--- NOTE | 2024-07-03 10:44 | XR_ITS ---
PROCEDURE INFORMATION: Exam: XR Chest Exam date and time: 07/03/2024 10:40 AM Age: 54 years old Clinical indication: Shortness of breath; Additional info: SOA TECHNIQUE: Imaging protocol: Radiologic exam of the chest. Views: 2 views. COMPARISON: CT LUNG SCREENING 04/22/2024 11:27 AM FINDINGS: Lungs: No evidence of pneumonia or interstitial edema. Pleural spaces: Unremarkable. No pleural effusion. No pneumothorax. Heart/Mediastinum: Unremarkable. No cardiomegaly. Bones/joints: Unremarkable. IMPRESSION: No evidence of pneumonia or interstitial edema.
--- NOTE | 2024-07-03 10:46 | HMH.EDGENADL ---
Discharge Plan Disposition Patient Disposition: Home, Self-Care Prescriptions Prescriptions: New albuterol sulfate 90 mcg/actuation HFA aerosol inhaler 4 inh inhalation Q4H PRN (Reason: shortness of breath or wheezing) Qty: 8.5 0RF Rx Instructions: 4 puffs every 4 hours for 48 hours then as needed for shortness of breath or wheezing following aopeibltacnwfnd-lqwucaleb-DD 2-30-10 mg/5 mL syrup 5 ml PO Q6H PRN (Reason: cold symptoms) 7 Days Qty: 118 0RF amoxicillin-pot clavulanate 875-125 mg tablet 1 tab PO BID 5 Days Qty: 10 0RF No Action Trelegy Ellipta 100-62.5-25 mcg blister with device 1 inh inhalation DAILY 90 Days Qty: 60 2RF albuterol sulfate 90 mcg/actuation HFA aerosol inhaler 2 inh inhalation QID PRN (Reason: shortness of breath or wheezing) Qty: 8.5 2RF duloxetine 60 mg capsule,delayed release(DR/EC) 60 mg PO DAILY Qty: 90 3RF meloxicam 15 mg tablet See Rx Instructions .ROUTE .COMPLEX Qty: 30 2RF Dose Instruction: TAKE ONE TABLET BY MOUTH EVERY DAY --TAKE WITH FOOD-- Rx Instructions: TAKE ONE TABLET BY MOUTH EVERY DAY --TAKE WITH FOOD-- esomeprazole magnesium 40 mg capsule,delayed release(DR/EC) See Rx Instructions .ROUTE .COMPLEX Qty: 90 2RF Dose Instruction: TAKE ONE CAPSULE BY MOUTH EVERY DAY FOR GERD Rx Instructions: TAKE ONE CAPSULE BY MOUTH EVERY DAY FOR GERD cetirizine 10 mg tablet 10 mg PO DAILY Qty: 90 0RF buspirone 10 mg tablet See Rx Instructions .ROUTE .COMPLEX Qty: 90 0RF Dose Instruction: TAKE ONE TABLET BY MOUTH THREE TIMES DAILY FOR ANXIETY Rx Instructions: TAKE ONE TABLET BY MOUTH THREE TIMES DAILY FOR ANXIETY phenytoin sodium extended 200 mg capsule 200 mg PO BID Qty: 60 2RF phenytoin sodium extended 100 mg capsule 100 mg PO ONCE Qty: 30 3RF Rx Instructions: 1 tab at lunchtime atorvastatin 40 mg tablet 40 mg PO DAILY Patient Comments: TAKE ONE TABLET BY MOUTH EVERY DAY olanzapine 5 mg tablet 5 mg PO BID Patient Comments: TAKE ONE TABLET BY MOUTH TWICE DAILY azelastine 137 mcg (0.1 %) spray,non-aerosol 1 spray INTRANASAL BID Patient Comments: USE 1 SPRAY in each nostril twice daily as directed albuterol sulfate 90 mcg/actuation HFA aerosol inhaler 4 puff INHALATION Q4HP PRN (Reason: SOA) Patient Comments: inhale 4 puffs by MOUTH EVERY 4 HOURS NEEDED FOR SHORTNESS OF BREATH OR wheezing FOR 48 hours THEN inhale NEEDED FOR SHORTNESS OF BREATH OR wheezing fluticasone propionate 50 mcg/actuation spray,suspension 1 spray INTRANASAL DAILY Patient Comments: instill 1 SPRAY IN EACH NOSTRIL EVERY DAY Momo Ellipta 100-62.5-25 mcg blister with device 1 ea INHALATION DAILY Patient Comments: INHALE 1 PUFF BY MOUTH EVERY DAY FOR copd Referrals Follow up/Referrals: Robbie Peterson DO [Primary Care Provider] - See instructions Activity Restrictions/Add. Instructions Additional Instructions/Restrictions: Your symptoms are consistent with an acute COPD exacerbation. Please take your breathing treatments and antibiotics as prescribed. You are given long-acting steroids therefore not prescribed more. Cough medicine was prescribed for symptomatic control. Return to the emergency department with any significant worsening of your symptoms. Clinical Impressions Clinical Impression: Acute exacerbation of chronic obstructive pulmonary disease, Encounter for smoking cessation counseling Print Language Print Language: Bengali Discharge ED Provider: Kaylin Chen General Adult HPI General Chief complaint: Shortness of Breath/Dyspnea Stated complaint: SOA Time Seen by Provider: 07/03/24 10:41 Mode of Arrival: EMS Source of Information: Patient and EMS Description of Symptoms (Recalled from ER Triage Doc. by RN): pt reports increasing shortness of breath. has been doing his home treatments but feels it is not working. got worse last night. History of Present Illness HPI narrative: 54-year-old male with a known history of COPD presents today with 3 days of increased cough shortness of breath and wheezing production. Nebulizing machine has been working at home up until yesterday. No fevers or chills. No chest pain does have some exertional dyspnea does not carry a diagnosis of coronary disease or heart failure. Related Data Home Medications ?Medication ?Instructions ?Recorded ?Confirmed albuterol sulfate 90 mcg/actuation 4 puff inhalation Q4HP PRN SOA 03/25/24 06/21/24 aerosol inhaler atorvastatin 40 mg tablet 40 mg PO DAILY 03/25/24 06/21/24 azelastine 137 mcg (0.1 %) nasal 1 spray intranasal BID 03/25/24 06/21/24 spray fluticasone fur. 100 mcg-umeclid 1 ea inhalation DAILY 03/25/24 06/21/24 62.5 mcg-vilant 25 mcg inhalat.powder (Trelegy Ellipta) fluticasone propionate 50 1 spray intranasal DAILY 03/25/24 06/21/24 mcg/actuation nasal spray,suspension olanzapine 5 mg tablet 5 mg PO BID 03/25/24 06/21/24 Previous Rx's ?Medication ?Instructions ?Recorded duloxetine 60 mg capsule,delayed 60 mg PO DAILY #90 caps 04/20/24 release meloxicam 15 mg tablet See Rx Instructions .Route 04/21/24 .COMPLEX #30 tabs albuterol sulfate 90 mcg/actuation 2 inh inhalation QID PRN shortness 05/04/24 aerosol inhaler of breath or wheezing #8.5 grams fluticasone fur. 100 mcg-umeclid 1 inh inhalation DAILY COPD 90 05/04/24 62.5 mcg-vilant 25 mcg days #60 ea inhalat.powder (Trelegy Ellipta) esomeprazole magnesium 40 mg See Rx Instructions .Route 05/20/24 capsule,delayed release .COMPLEX #90 caps cetirizine 10 mg tablet 10 mg PO DAILY #90 tabs 05/21/24 buspirone 10 mg tablet See Rx Instructions .Route 06/19/24 .COMPLEX #90 tabs phenytoin sodium extended 100 mg 100 mg PO ONCE #30 caps 06/28/24 capsule phenytoin sodium extended 200 mg 200 mg PO BID #60 caps 06/28/24 capsule albuterol sulfate 90 mcg/actuation 4 inh inhalation Q4H PRN shortness 07/03/24 aerosol inhaler of breath or wheezing #8.5 grams amoxicillin 875 mg-potassium 1 tab PO BID 5 days #10 tabs 07/03/24 clavulanate 125 mg tablet wngpwxakoquywqa-cfxiwctyahqvbsh-UD 5 ml PO Q6H PRN cold symptoms 7 07/03/24 2 mg-30 mg-10 mg/5 mL oral syrup days #118 mL Allergies Allergy/AdvReac Type Severity Reaction Status Date / Time alprazolam (From Xanax) Allergy Unknown Verified 06/21/24 13:09 allergy reaction fluoxetine (From Prozac) Allergy Unknown Verified 06/21/24 13:09 allergy reaction PFSH [facility] Disclaimer: The information contained in this section may have been updated after the patient was seen, as this information can be updated by other users. 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 Pulmonary emphysema Tobacco abuse counseling Tobacco abuse Smoking greater than 30 pack years COPD mixed type Tear of lateral meniscus of left knee Pes anserinus bursitis of left knee Chest pain Pain in wrist Epididymitis Acute exacerbation of chronic obstructive pulmonary disease Acute exacerbation of chronic obstructive pulmonary disease General weakness Abnormal x-ray of knee Left knee pain COPD exacerbation Encounter for medical assessment Trigger finger of right hand Popping of right knee joint Family history of cancer Encounter for screening colonoscopy Lesion of penis Right hand pain Orchalgia Laceration of ear lobe Elevated liver function tests Medial epicondylitis of left elbow Finger fracture, right UTI (urinary tract infection) Nausea & vomiting Throat pain in adult Trichomonas contact Abdominal pain Nausea Contusion of right elbow Nasal bone fracture Sinusitis Jaundice Bilateral shoulder pain Shoulder pain, left Hand fracture, right Hand pain, right Contusion Elbow contusion Sting, insect Chronic chest pain Superficial skin lesion Hemorrhoids Left wrist sprain Acute flank pain URI (upper respiratory infection) Left elbow pain Ankle pain Atypical chest pain Bursitis of left elbow Vomiting Rib pain on right side Seizure-like activity Acute exacerbation of chronic obstructive airways disease Acute and chronic respiratory failure with hypoxia Scalp abrasion Subtherapeutic serum dilantin level Pharyngitis Testicular pain, right Mid back pain I would follow this for now. Chest pain Chronic groin pain Otitis media Shortness of breath Encounter for medical assessment Acute bacterial sinusitis Pharyngitis Nasal polyp Influenza A Migraine HTN (hypertension), benign HLD (hyperlipidemia) Depression Asthma Anxiety Upper respiratory infection Pneumonia Schizophrenia Hepatitis B Seizure disorder Chronic obstructive pulmonary disease We will follow this for now. He does have albuterol MDIs. GERD (gastroesophageal reflux disease) 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 H/O vasectomy Hx of tonsillectomy History of arthroscopy of right shoulder History of arthroscopy of left shoulder H/O arthroscopy of right knee Family History Other Cancer 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 Smoking Status: Current every day smoker tobacco type: cigarettes packs per day: 1 second hand exposure: No alcohol intake: never substance use type: former substance user, marijuana and methamphetamine current occupational status: unemployed Travel in the last 8 weeks: None household members: other housing: house number of children: 2 current occupational exposures/hazards: No caffeine: Yes Have you lived/traveled outside [place] in past 30 days?: No Contact w/someone who lives/traveled outside [place] past 30 days?: No Exposure to someone with infectious disease in past 14 days?: No Do you have a fever (greater than 100.4 F or 38 C)?: No Have you tested positive for COVID-19: No Exposed to someone with COVID-19 in past 14 days?: No Do you have a sore throat?: No Do you have a cough?: No Do you have any weakness?: No Do you have any diarrhea?: No Are you experiencing any unusual bleeding?: No Do you have any muscle aches/pain?: No Do you have any abdominal pain?: No Are you experiencing loss of taste or smell?: No Other 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 Have you received the Flu Vaccine for this season: No Have you received the Pneumonia Vaccine: Yes ROS Obtained: Yes All systems reviewed & no additional complaints except as documented Physical Exam General General appearance: alert and in no apparent distress Respiratory Respiratory exam: Present other (Patient is diffusely tight and wheezing nonfocal no respiratory distress oxygen saturation is normal patient speaking to me in full sentences) Cardiovascular Cardiovascular exam: Present regular rate; Absent normal rhythm Neurological Exam Neurological exam: Present alert and oriented X3 Medical Decision Making Medical Records Screening: Per USPSTF and CDC recommendations, given the prevalence of disease in our region, it is our hospital?s policy to screen for HIV and viral Hepatitis for all patients aged 18 and over and those with ongoing risk factors. Krishna Inquiry Pt receiving controlled substance: No Vital Signs: 07/03/24 10:13 07/03/24 10:30 07/03/24 11:00 Temperature 98.3 F Temperature Source Oral Pulse Rate 92 H 73 Pulse Rate [Left] 97 H Respiratory Rate 22 18 Blood Pressure 127/82 130/82 Blood Pressure [Left Arm] 133/103 H Blood Pressure Mean 97 Blood Pressure Mean [Left Arm] 113 02 Sat by Pulse Oximetry 97 94 L 95 Oxygen Delivery Method Room Air Room Air Lab Data Lab results reviewed: Yes I reviewed the patient's lab results. Lab Results 07/03/24 10:12: WBC 8.0, RBC 4.73, Hgb 16.0, Hct 46.1, MCV 97.5 H, MCH 33.8 H, MCHC 34.7, RDW 12.8, Plt Count 189, MPV 10.3, Neut % (Auto) 40.0, Lymph % (Auto) 29.0, [place] % (Auto) 18.4 H, Eos % (Auto) 11.0, Baso % (Auto) 1.4, Neut # (Auto) 3.2, Lymph # (Auto) 2.3, [place] # (Auto) 1.5 H, Eos # (Auto) 0.9 H, Baso # (Auto) 0.1, Sodium 138, Potassium 4.3, Chloride 106, Carbon Dioxide 25, Anion Gap 11.3, BUN 14, Creatinine 1.10, Estimated Creat Clear 95, Estimated GFR 70, Est GFR ( Amer) 85, Glucose 95, Calcium 8.9, Total Bilirubin 0.7, AST 41, ALT 34, Alkaline Phosphatase 65, Troponin I 0.02, NT-Pro-B Natriuret Pep < 20.0, Total Protein 7.6, Albumin 4.9, Globulin 2.7, Albumin/Globulin Ratio 1.8, SARS-CoV-2 (PCR) Not detected, Influenza A Untype (PCR) Not detected, Influenza Type B (PCR) Not detected 07/03/24 10:14: VBG pH 7.38, VBG pCO2 37.9, VBG pO2 173.1 H, VBG HCO3 21.9 L, VBG Total CO2 23.0, VBG O2 Saturation 99.2 H, VBG Base Excess -3.3 L, VBG Lactic Acid 1.4 07/03/24 10:12 07/03/24 10:12 Orders (Tests/Meds): ED MEDICATIONS Discontinued Medications Generic Name Dose Route Start Last Admin Trade Name Freq PRN Reason Stop Dose Admin Albuterol/Ipratropium 3 ml 07/03/24 10:44 07/03/24 11:14 Ipratropium/Albuterol 3 Ml Neb IH 07/03/24 10:45 3 ml ONCE ONE Administration Dexamethasone Sodium Phosphate 10 mg 07/03/24 10:44 07/03/24 11:13 Dexamethasone 4mg/Ml 1ml Vial IV 07/03/24 10:45 10 mg ONCE ONE Administration Lactated Ringer's 1,000 mls @ 999 mls/hr 07/03/24 10:45 07/03/24 11:14 Lactated Ringer's 1000 Ml Bag IV 07/03/24 11:45 999 mls/hr .Q1H1M AUGUST Administration Magnesium Sulfate 2 gm in 50 mls @ 50 mls/hr 07/03/24 10:44 07/03/24 11:14 Magnesium Sulfate 2gm/50ml Premix IV 07/03/24 11:43 50 mls/hr ONCE ONE Administration ORDERS Category Date Time Status Chest XR 2 view (NOT portable) [XR chest 2V] Stat Exams 07/03/24 10:44 Completed BNP [NT Pro Brain Natriuretic Pep.] Stat Lab 07/03/24 10:12 Completed Complete Blood Count Auto Diff Stat Lab 07/03/24 10:12 Completed Comprehensive Metabolic Panel Stat Lab 07/03/24 10:12 Completed Rapid PCR Covid and Flu A/B Stat Lab 07/03/24 10:12 Completed Troponin I Q3H Lab 07/03/24 13:15 Ordered Troponin I Q3H Lab 07/03/24 16:15 Ordered Troponin I Stat Lab 07/03/24 10:12 Completed Venous Blood Gas Stat RT 07/03/24 10:14 Completed Medical Decision Narrative: 54-year-old clinically with evidence of a COPD exacerbation with increased cough sputum production wheezing and shortness of breath. Will give him a DuoNeb steroids and magnesium. I will anticipate discharging the patient on antibiotics given the severity of his symptoms. I also anticipate that I will be able to get him feeling good enough to go home. Labs and x-ray and COVID and flu testing are pending. I do not suspect that this is cardiac in nature but is a possibility. Will reassess after this initial workup and evaluation intervention have been completed Chest x-ray performed which I personally interpreted which shows no evidence of an acute cardiopulmonary abnormality Reassessment 12:06 PM patient feeling much better serial respiratory exams are improved patient does still have some coughing. With an extensive discussion regarding smoking cessation. Additionally patient was given a prescription of albuterol Bromfed and Augmentin to treat a COPD exacerbation. Return precautions emphasized patient was discharged in stable and improved condition. Critical Care Critical Care Time Critical Care Time: Yes Attestation: On 07/03/24, the high probability of a clinically significant, sudden or life threatening deterioration of the following system(s) required my full and direct attention, intervention and personal management. The time I documented below is in addition to time spent performing reported procedures but includes the following listed in this critical care notation. Total Time Total Critical Care Time: 35
[2024-07-03 10:47] LABS: Troponin I 0.02 ng/ml (0.00-0.034)
[2024-07-03 11:00] VITALS: BP 130/82; PULSE 73; O2SAT 95
[2024-07-03] MEDS: DEXAMETHASONE 4MG/ML 1ML VIAL 10 MG IV (11:13)
[2024-07-03] MEDS: MAGNESIUM SULFATE IN WATER 2 GM/50 ML PIGGYBACK IV (11:14)
[2024-07-03] MEDS: LACTATED RINGERS 1000ML 1,000 ML 999 ML IV (11:14)
[2024-07-03] MEDS: IPRATROPIUM/ALBUTEROL 3 ML NEB IH (11:14)
[2024-07-03 11:17] LABS: NT Pro Brain Natriuretic Pep. < 20.0 pg/mL (0-125)
[2024-07-03 12:14] VITALS: BP 133/84; PULSE 74; RESP 18; TEMP 36.9; O2SAT 96
== END 2024-07-03 12:15 | disposition home or self-care (01) ==
PROVIDERS: Emergency Provider Student in an Organized Health Care Education/Training Program; PCP Internal Medicine
DX: J44.1 Chronic obstructive pulmonary disease with (acute) exacerbation (principal); R06.02 Shortness of breath; R05.9 Cough, unspecified; R06.2 Wheezing; Z72.0 Tobacco use; Z71.6 Tobacco abuse counseling
CPT/HCPCS: 71046; 80053; 82803; 83880; 84484; 85025; 87636; 93005; 96365; 96367; 96374; 99291; J1100; J3475; J7120; J7620

== ENCOUNTER 2024-07-06 07:53 | Emergency (ER) | payer MEDICARE, MEDICAID, SELFPAY ==
[2024-07-06] VITALS (7 sets, daily range): BP systolic 118–158; BP diastolic 72–94; PULSE 71–124; RESP 19–38; TEMP 36.7–36.9; O2SAT 89–98; BMI 28.5
--- NOTE | 2024-07-06 07:45 | XR_ITS ---
FINAL REPORT TECHNIQUE: Single view chest CLINICAL HISTORY: soa COMPARISON: 07/03/2024 FINDINGS: A single view of the chest was obtained. The heart and mediastinum are within normal limits. The lungs are clear. There is no pneumothorax. IMPRESSION: No acute cardiopulmonary process. Reviewed, Interpreted and Dictated by Yumiko Galloway MD Transcribed by Enid Mccord Authenticated and [facility]
--- NOTE | 2024-07-06 07:45 | ECG_ITS ---
APPROVED REPORT Exam: Resting ECG HR:111 bpm ECG Measurements Heart Rate 111 AXES SD 148 P 68 QRSd 113 QRS -23 QT 327 T 48 QTc 392 Conclusion Sinus tachycardia Indeterminate axis Electronically signed by : GRAEME DOMINIQUE, 07/07/2024 07:24:46
--- NOTE | 2024-07-06 07:56 | PC.NURSE ---
respiratory aware of vbg
[2024-07-06 07:59] LABS: Lactate Venous 1.4 mmol/L (0.4-2.0); VBG Base Excess -4.7 mmol/L (-2.4-2.3); VBG HCO3 19.9 mmol/L (23-30); VBG Oxygen Saturation 97.9 % (50-70); VBG PCO2 32.2 mmol/L (35-51); VBG PH 7.41 mmol/L (7.31-7.41); VBG PO2 97.6 mmol/L (28-40); VBG Total CO2 20.9 mmol/L (23-27)
[2024-07-06 07:59] LABS: Basophils # 0.1 K/mm3 (0-0.2); Basophils % 0.8 % (0.1-2.0); Eosinophils # 0.2 K/mm3 (0.0-0.4); Eosinophils % 2.7 % (0.1-12.0); Hematocrit 45.5 % (42.0-52.0); Hemoglobin 15.7 g/dL (14.1-18.0); Lymphocytes # 2.8 K/mm3 (0.7-4.5); Lymphocytes % 37.6 % (10-50); Mean Corpuscular HGB Conc 34.5 g/dL (31.8-35.4); Mean Corpuscular Hemoglobin 34.1 pg (27.0-31.2); Mean Corpuscular Volume 98.7 fl (80-94); Monocytes # 1.1 K/mm3 (0.1-1.0); Monocytes % 15.4 % (1.7-9.3); Neutrophils # 3.2 K/mm3 (1.8-7.8); Neutrophils % 43.4 % (37.0-80.0); Platelet Count 160 K/mm3 (142-424); Red Blood Count 4.61 M/mm3 (4.60-6.20); Red Cell Distribution Width 13.4 % (11.5-17.5); White Blood Count 7.4 K/mm3 (4.8-10.8)
--- NOTE | 2024-07-06 08:04 | [facility].EDCP ---
Discharge Plan Disposition Patient Disposition: Home, Self-Care Prescriptions Prescriptions: New doxycycline hyclate 100 mg capsule 100 mg PO BID 5 Days Qty: 10 0RF prednisone 20 mg tablet 40 mg PO DAILY 5 Days Qty: 10 0RF No Action Trelegy Ellipta 100-62.5-25 mcg blister with device 1 inh inhalation DAILY 90 Days Qty: 60 2RF albuterol sulfate 90 mcg/actuation HFA aerosol inhaler 2 inh inhalation QID PRN (Reason: shortness of breath or wheezing) Qty: 8.5 2RF duloxetine 60 mg capsule,delayed release(DR/EC) 60 mg PO DAILY Qty: 90 3RF meloxicam 15 mg tablet See Rx Instructions .ROUTE .COMPLEX Qty: 30 2RF Dose Instruction: TAKE ONE TABLET BY MOUTH EVERY DAY --TAKE WITH FOOD-- Rx Instructions: TAKE ONE TABLET BY MOUTH EVERY DAY --TAKE WITH FOOD-- esomeprazole magnesium 40 mg capsule,delayed release(DR/EC) See Rx Instructions .ROUTE .COMPLEX Qty: 90 2RF Dose Instruction: TAKE ONE CAPSULE BY MOUTH EVERY DAY FOR GERD Rx Instructions: TAKE ONE CAPSULE BY MOUTH EVERY DAY FOR GERD cetirizine 10 mg tablet 10 mg PO DAILY Qty: 90 0RF buspirone 10 mg tablet See Rx Instructions .ROUTE .COMPLEX Qty: 90 0RF Dose Instruction: TAKE ONE TABLET BY MOUTH THREE TIMES DAILY FOR ANXIETY Rx Instructions: TAKE ONE TABLET BY MOUTH THREE TIMES DAILY FOR ANXIETY phenytoin sodium extended 200 mg capsule 200 mg PO BID Qty: 60 2RF atorvastatin 40 mg tablet 40 mg PO DAILY Patient Comments: TAKE ONE TABLET BY MOUTH EVERY DAY olanzapine 5 mg tablet 5 mg PO BID Patient Comments: TAKE ONE TABLET BY MOUTH TWICE DAILY azelastine 137 mcg (0.1 %) spray,non-aerosol 1 spray INTRANASAL BID Patient Comments: USE 1 SPRAY in each nostril twice daily as directed albuterol sulfate 90 mcg/actuation HFA aerosol inhaler 4 puff INHALATION Q4HP PRN (Reason: SOA) Patient Comments: inhale 4 puffs by MOUTH EVERY 4 HOURS NEEDED FOR SHORTNESS OF BREATH OR wheezing FOR 48 hours THEN inhale NEEDED FOR SHORTNESS OF BREATH OR wheezing fluticasone propionate 50 mcg/actuation spray,suspension 1 spray INTRANASAL DAILY Patient Comments: instill 1 SPRAY IN EACH NOSTRIL EVERY DAY Trelegy Ellipta 100-62.5-25 mcg blister with device 1 ea INHALATION DAILY Patient Comments: INHALE 1 PUFF BY MOUTH EVERY DAY FOR copd albuterol sulfate 90 mcg/actuation HFA aerosol inhaler 4 inh inhalation Q4H PRN (Reason: shortness of breath or wheezing) Qty: 8.5 0RF Rx Instructions: 4 puffs every 4 hours for 48 hours then as needed for shortness of breath or wheezing following [id number] 2-30-10 mg/5 mL syrup 5 ml PO Q6H PRN (Reason: cold symptoms) 7 Days Qty: 118 0RF amoxicillin-pot clavulanate 875-125 mg tablet 1 tab PO BID 5 Days Qty: 10 0RF Referrals Follow up/Referrals: Robbie Peterson DO [Primary Care Provider] - See instructions Activity Restrictions/Add. Instructions Additional Instructions/Restrictions: Stop taking Augmentin. Doxycycline twice daily for the next 5 days. Prednisone each morning for 5 days after waking up with plenty of food and water to prevent GI upset. Call your family doctor to establish care for this visit to the emergency department and schedule follow-up within 48 hours to ensure improvement. If you have any worsening of your condition or any other concerning signs or symptoms, return to the emergency department or your primary care doctor for further evaluation. Clinical Impressions Clinical Impression: Acute exacerbation of chronic obstructive pulmonary disease Print Language Print Language: Greenlandic Discharge ED Provider: Les Cintron HPI General Chief Complaint: Shortness of Breath/Dyspnea Stated Complaint: soa Time Seen by Provider: 07/06/24 08:01 Mode of Arrival: EMS Source of Information: Patient and EMS Description of Symptoms (Recalled from ER Triage Doc. by RN): pt presents to ED with c/o shortness of air. pt was recently discharged from hospital for same symptoms. pt reports symptoms began yesterday and got worse this morning. History of Present Illness HPI narrative: Please note that above description of symptoms, in this electronic medical record under categorization of recalled from ER triage doctor by RN are reflective of an initial nursing assessment, however, is not reflective of my full history and physical exam that was personally taken and clarified. Consequentially, this preceding description of symptoms, which may include the patient's categorized chief complaint in the EMR, do not reflect my personal clinical impression, and the ultimate description of history of present illness and patient stated complaints should be deferred to this section of the note. Unless stated otherwise or congruent with this section of the note, additional signs, symptoms, or incongruence should be interpreted as inaccurate with my clinical impression. Related Data Home Medications ?Medication ?Instructions ?Recorded ?Confirmed albuterol sulfate 90 mcg/actuation 4 puff inhalation Q4HP PRN SOA 03/25/24 06/21/24 aerosol inhaler atorvastatin 40 mg tablet 40 mg PO DAILY 03/25/24 06/21/24 azelastine 137 mcg (0.1 %) nasal 1 spray intranasal BID 03/25/24 06/21/24 spray fluticasone fur. 100 mcg-umeclid 1 ea inhalation DAILY 03/25/24 06/21/24 62.5 mcg-vilant 25 mcg inhalat.powder (Trelegy Ellipta) fluticasone propionate 50 1 spray intranasal DAILY 03/25/24 06/21/24 mcg/actuation nasal spray,suspension olanzapine 5 mg tablet 5 mg PO BID 03/25/24 06/21/24 Previous Rx's ?Medication ?Instructions ?Recorded duloxetine 60 mg capsule,delayed 60 mg PO DAILY #90 caps 04/20/24 release meloxicam 15 mg tablet See Rx Instructions .Route 04/21/24 .COMPLEX #30 tabs albuterol sulfate 90 mcg/actuation 2 inh inhalation QID PRN shortness 05/04/24 aerosol inhaler of breath or wheezing #8.5 grams fluticasone fur. 100 mcg-umeclid 1 inh inhalation DAILY COPD 90 05/04/24 62.5 mcg-vilant 25 mcg days #60 ea inhalat.powder (Trelegy Ellipta) esomeprazole magnesium 40 mg See Rx Instructions .Route 05/20/24 capsule,delayed release .COMPLEX #90 caps cetirizine 10 mg tablet 10 mg PO DAILY #90 tabs 05/21/24 buspirone 10 mg tablet See Rx Instructions .Route 06/19/24 .COMPLEX #90 tabs phenytoin sodium extended 200 mg 200 mg PO BID #60 caps 06/28/24 capsule albuterol sulfate 90 mcg/actuation 4 inh inhalation Q4H PRN shortness 07/03/24 aerosol inhaler of breath or wheezing #8.5 grams amoxicillin 875 mg-potassium 1 tab PO BID 5 days #10 tabs 07/03/24 clavulanate 125 mg tablet lprtfldgaqfusoi-ueqtgsknhodoutu-HN 5 ml PO Q6H PRN cold symptoms 7 07/03/24 2 mg-30 mg-10 mg/5 mL oral syrup days #118 mL doxycycline hyclate 100 mg capsule 100 mg PO BID 5 days #10 caps 07/06/24 prednisone 20 mg tablet 40 mg (2 x 20 mg) PO DAILY 5 days 07/06/24 #10 tabs Allergies Allergy/AdvReac Type Severity Reaction Status Date / Time alprazolam (From Xanax) Allergy Unknown Verified 06/21/24 13:09 allergy reaction fluoxetine (From Prozac) Allergy Unknown Verified 06/21/24 13:09 allergy reaction PFSH PFS Disclaimer: The information contained in this section may have been updated after the patient was seen, as this information can be updated by other users. 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 Pulmonary emphysema Tobacco abuse counseling Tobacco abuse Smoking greater than 30 pack years COPD mixed type Tear of lateral meniscus of left knee Pes anserinus bursitis of left knee Chest pain Pain in wrist Epididymitis Acute exacerbation of chronic obstructive pulmonary disease Acute exacerbation of chronic obstructive pulmonary disease General weakness Abnormal x-ray of knee Left knee pain COPD exacerbation Encounter for medical assessment Trigger finger of right hand Popping of right knee joint Family history of cancer Encounter for screening colonoscopy Lesion of penis Right hand pain Orchalgia Laceration of ear lobe Elevated liver function tests Medial epicondylitis of left elbow Finger fracture, right UTI (urinary tract infection) Nausea & vomiting Throat pain in adult Trichomonas contact Abdominal pain Nausea Contusion of right elbow Nasal bone fracture Sinusitis Jaundice Bilateral shoulder pain Shoulder pain, left Hand fracture, right Hand pain, right Contusion Elbow contusion Sting, insect Chronic chest pain Superficial skin lesion Hemorrhoids Left wrist sprain Acute flank pain URI (upper respiratory infection) Left elbow pain Ankle pain Atypical chest pain Bursitis of left elbow Vomiting Rib pain on right side Seizure-like activity Acute exacerbation of chronic obstructive airways disease Acute and chronic respiratory failure with hypoxia Scalp abrasion Subtherapeutic serum dilantin level Pharyngitis Testicular pain, right Mid back pain I would follow this for now. Chest pain Chronic groin pain Otitis media Shortness of breath Encounter for medical assessment Acute bacterial sinusitis Pharyngitis Nasal polyp Influenza A Migraine HTN (hypertension), benign HLD (hyperlipidemia) Depression Asthma Anxiety Upper respiratory infection Pneumonia Schizophrenia Hepatitis B Seizure disorder Chronic obstructive pulmonary disease We will follow this for now. He does have albuterol MDIs. GERD (gastroesophageal reflux disease) 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 H/O vasectomy Hx of tonsillectomy History of arthroscopy of right shoulder History of arthroscopy of left shoulder H/O arthroscopy of right knee Family History Other Cancer 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 Smoking Status: Former smoker tobacco type: cigarettes packs per day: 1 second hand exposure: No alcohol intake: never substance use type: former substance user, marijuana and methamphetamine current occupational status: unemployed Travel in the last 8 weeks: None household members: other housing: house number of children: 2 current occupational exposures/hazards: No caffeine: Yes Have you lived/traveled outside [place] in past 30 days?: No Contact w/someone who lives/traveled outside US past 30 days?: No Exposure to someone with infectious disease in past 14 days?: No Do you have a fever (greater than 100.4 F or 38 C)?: No Have you tested positive for COVID-19: No Exposed to someone with COVID-19 in past 14 days?: No Do you have a sore throat?: No Do you have a cough?: No Do you have any weakness?: No Do you have any diarrhea?: No Are you experiencing any unusual bleeding?: No Do you have any muscle aches/pain?: No Do you have any abdominal pain?: No Are you experiencing loss of taste or smell?: No Other 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 Have you received the Flu Vaccine for this season: No Have you received the Pneumonia Vaccine: Yes ROS Obtained: Yes All systems reviewed & no additional complaints except as documented Physical Exam General General appearance: alert and in no apparent distress Neck Neck exam: Present trachea midline Chest Chest inspection: Present normal inspection and symmetric chest wall rise Respiratory Respiratory exam: Present wheezes (Minimal end expiratory wheezes, quiet lung sounds throughout), prolonged expiratory phase and other (Speaking in full sentences); Absent respiratory distress, stridor or accessory muscle use Cardiovascular Cardiovascular exam: Present normal rhythm, tachycardia and other (Pulses equal and symmetric in upper and lower extremities) Extremities Exam Extremities exam: Absent edema Neurological Exam Neurological exam: Present alert, oriented X3 and CN II-XII intact Skin Skin exam: Present warm and dry; Absent cyanosis, diaphoresis or pallor HEART Score HEART Score HEART Score assessment performed?: Yes History (anamnesis): Slightly suspicious ECG: Normal Age: 45-65 years Risk factors: 1-2 risk factors Troponin: </= normal limit HEART Score: 2 Critical Care Critical Care Time Critical Care Time: No Medical Decision Making Medical Records Medical records reviewed: Yes I reviewed the patient's medical records. Krishna Inquiry Pt receiving controlled substance: No Krishna was queried for this patient: No Vital Signs Vital Signs: 07/06/24 07:56 07/06/24 08:01 07/06/24 08:30 Temperature 98.4 F Temperature Source Oral Pulse Rate 124 H 108 H Pulse Rate [Left Radial] 109 H Respiratory Rate 28 H 38 H 26 H Blood Pressure 128/90 143/94 H Blood Pressure [Right Arm] 158/87 H Blood Pressure Mean [Right Arm] 110 02 Sat by Pulse Oximetry 98 97 95 Oxygen Delivery Method Room Air Aerosol Mask 07/06/24 09:00 07/06/24 09:31 07/06/24 10:00 Temperature Temperature Source Pulse Rate 99 H 90 71 Pulse Rate [Left Radial] Respiratory Rate 30 H 19 21 Blood Pressure 144/87 H 118/72 137/87 Blood Pressure [Right Arm] Blood Pressure Mean [Right Arm] 02 Sat by Pulse Oximetry 90 L 90 L 89 L Oxygen Delivery Method Lab Data Labs: Lab Results 07/06/24 07:40: VBG pH 7.41, VBG pCO2 32.2 L, VBG pO2 97.6 H, VBG HCO3 19.9 L, VBG Total CO2 20.9 L, VBG O2 Saturation 97.9 H, VBG Base Excess -4.7 L, VBG Lactic Acid 1.4 07/06/24 07:49: WBC 7.4, RBC 4.61, Hgb 15.7, Hct 45.5, MCV 98.7 H, MCH 34.1 H, MCHC 34.5, RDW 13.4, Plt Count 160, MPV 10.0, Neut % (Auto) 43.4, Lymph % (Auto) 37.6, [place] % (Auto) 15.4 H, Eos % (Auto) 2.7, Baso % (Auto) 0.8, Neut # (Auto) 3.2, Lymph # (Auto) 2.8, [place] # (Auto) 1.1 H, Eos # (Auto) 0.2, Baso # (Auto) 0.1, PT 10.6, INR 0.94, APTT 27.9, D-Dimer 0.50, Sodium 139, Potassium 3.7, Chloride 109 H, Carbon Dioxide 21 L, Anion Gap 12.7, BUN 11, Creatinine 1.20, Estimated Creat Clear 87, Estimated GFR 64, Est GFR ( Amer) 77, Glucose 104 H, Calcium 9.3, Total Bilirubin 0.6, AST 46, ALT 31, Alkaline Phosphatase 70, Troponin I < 0.01, NT-Pro-B Natriuret Pep < 20.0, Total Protein 7.6, Albumin 4.8, Globulin 2.8, Albumin/Globulin Ratio 1.7 07/06/24 07:49 07/06/24 07:49 Response Orders (Tests/Meds): ED MEDICATIONS Discontinued Medications Generic Name Dose Route Start Last Admin Trade Name Freq PRN Reason Stop Dose Admin Albuterol/Ipratropium 6 ml 07/06/24 08:07 07/06/24 08:08 Ipratropium/Albuterol 3 Ml Neb IH 07/06/24 08:08 6 ml ONCE ONE Administration Dexamethasone Sodium Phosphate 10 mg 07/06/24 08:09 07/06/24 08:27 Dexamethasone 4mg/Ml 1ml Vial IV 07/06/24 08:10 10 mg ONCE ONE Administration Doxycycline Hyclate 100 mg 07/06/24 08:33 07/06/24 08:54 Doxycycline Hycl 100 Mg Tablet PO 07/06/24 08:34 100 mg ONCE ONE Administration ORDERS Category Date Time Status XR chest portable Stat Exams 07/06/24 07:45 Completed Complete Blood Count Auto Diff Stat Lab 07/06/24 07:49 Completed Comprehensive Metabolic Panel Stat Lab 07/06/24 07:49 Completed D-Dimer Stat Lab 07/06/24 07:49 Completed NT Pro Brain Natriuretic Pep. Stat Lab 07/06/24 07:49 Completed PT INR [Prothrombin Time INR] Stat Lab 07/06/24 07:49 Completed PTT [Activated Partial Thrombo Time] Stat Lab 07/06/24 07:49 Completed Troponin I Q3H Lab 07/06/24 11:00 Ordered Troponin I Q3H Lab 07/06/24 14:00 Ordered Troponin I Stat Lab 07/06/24 07:49 Completed Venous Blood Gas Stat RT 07/06/24 07:40 Completed MDM Narrative Medical Decision Narrative: 54-year-old male COPD still smoking 1 pack/day, hypertension, hyperlipidemia, hepatitis C presenting with shortness of breath and cough. Patient states that he was seen a couple days prior to this in the emergency department. Sent home with antibiotics, states that he thinks he has been taking them. Unsure. Cough is productive of yellow/white sputum which is normal for him and has not changed since a couple days prior to this. States that he feels like he cannot breathe. Shortness of breath is not exertional, nonpositional. No objective fevers were measured, states that he has felt hot once over the past couple of days. No vomiting, chest pain, diarrhea, syncope, or any other associated symptoms. History was obtained via conversation with patient and EMS. On arrival, patient hemodynamically stable, alert, oriented x4, appropriate, GCS 15, moving all extremities spontaneously, pupils equal and reactive to light. Full physical exam performed and significant for very clinically well-appearing male no acute distress. Mildly tachycardic, but just received DuoNebs with EMS. Speaking in full sentences, mildly tachypneic with prolonged expiratory phase. Lungs are quiet diffusely, decreased breath sounds throughout, but end expiratory wheezes. Cardiac exam normal otherwise. Differential includes COPD exacerbation, bronchitis, pneumonia, medication noncompliance, PE, pneumothorax, among others. Patient was given DuoNebs, Decadron, for symptomatic management and correction of underlying abnormalities. Patient placed on continuous cardiac monitoring and continuous pulse ox with initial blood pressure 158/87, heart rate 109, saturation 97% on room air breathing about 25 times per minute. Independent interpretation of EKG shows sinus tachycardia with rightward axis. MO interval 148 QRS 113, QTc 392. Ventricular rate 111. No acute ischemic changes.. Workup independently interpreted and significant for nonactionable hematologic labs. VBG with mild compensated metabolic acidosis with normal pH, bicarb low at 21, CO2 low at 32.2 with normal lactate. Troponin and BNP negative. Chest x-ray without acute focal pulmonary disease. Heart score 2 On reevaluation, patient resting comfortably. Working less hard to breathe, nontachypneic and nontachycardic. Given patient presentation, workup, history, this most likely represents COPD exacerbation. Sent home with doxycycline to replace Augmentin. Because patient at baseline without signs or symptoms of clinical decompensation, deemed appropriate for discharge. Results were relayed to patient who voiced understanding and were agreeable to outpatient management and follow up. I discussed my clinical impression with patient and answered all questions. At this time, the evidence for any other entities in the differential is insufficient to warrant any further testing or ED observation. This was explained as well. Advisory was given that persistent or worsening symptoms require further evaluation. I confirmed the understanding of this discussion. Molding Process Technician disclaimer Much of this encounter note is an electronic coordinator of online programs spoken language to printed text. Electronic coordinator of online programs of the spoken language may permit errors. Although I have reviewed the note, some errors may still exist.
[2024-07-06] MEDS: IPRATROPIUM/ALBUTEROL 3 ML NEB 6 ML IH (08:08)
--- NOTE | 2024-07-06 08:08 | PC.NURSE ---
rad at bedside
[2024-07-06 08:09] LABS: INR 0.94 (0.9-1.1); Prothrombin Time 10.6 seconds (10.1-12.5)
[2024-07-06 08:14] LABS: Activated Partial Thrombo Time 27.9 seconds (22.8-30.6); Alanine Aminotransferase 31 U/L (12-78); Albumin Level 4.8 g/dl (3.5-5.0); Albumin/Globulin Ratio 1.7 (1.1-1.8); Alkaline Phosphatase 70 U/L (38-126); Anion Gap 12.7 mEq/L (5-15); Aspartate Amino Transferase 46 U/L (17-59); Bilirubin,Total 0.6 mg/dl (0.2-1.3); Blood Urea Nitrogen 11 mg/dl (9-20); Calcium 9.3 mg/dl (8.4-10.2); Carbon Dioxide 21 mmol/L (22.0-30.0); Chloride 109 mmol/L (98-107); Creatinine Clearance Estimated 87 mL/min (50-200); Estimated Glomerular Filt Rate 64 ml/min (>60); GFR (African American) 77 ML/MIN (>60); Globulin 2.8 g/dL (1.3-3.2); Glucose 104 mg/dl (74-100); Potassium 3.7 mmoL/L (3.5-5.1); Sodium 139 mmol/L (136-145); Total Protein,Serum 7.6 g/dl (6.3-8.2)
[2024-07-06 08:23] LABS: NT Pro Brain Natriuretic Pep. < 20.0 pg/mL (0-125)
[2024-07-06] MEDS: DEXAMETHASONE 4MG/ML 1ML VIAL 10 MG IV (08:27)
[2024-07-06 08:28] LABS: Troponin I < 0.01 ng/ml (0.00-0.034)
[2024-07-06] MEDS: DOXYCYCLINE HYCL 100 MG TABLET PO (08:54)
== END 2024-07-06 10:32 | disposition home or self-care (01) ==
PROVIDERS: Emergency Provider Emergency Medicine; PCP Internal Medicine
DX: J44.1 Chronic obstructive pulmonary disease with (acute) exacerbation (principal)
CPT/HCPCS: 71045; 80053; 82803; 83880; 84484; 85025; 85378; 85610; 85730; 93005; 99284; J1100; J7620

== ENCOUNTER 2024-07-15 13:37 | Outpatient (CLI) | payer MEDICARE, MEDICAID, SELFPAY ==
[2024-07-15 18:17] LABS: Phenytoin (Dilantin) 7.3 ug/ml (10-20)
[2024-07-15 18:41] LABS: Prostate Specific Ag Screen 0.7 ng/ml (0.0-4.0)
--- OUTSIDE RECORDS SUMMARY | 2024-07-22 19:37 | XMS_ITS | Data Portability ---
Author Organization [facility] ILA Arnold [place] [facility] Address [address] [place] [address] Assessment No assessment recorded. Plan of Treatment Reminders Order Date Submit Date Provider Last Modified By Organization Details Last Modified Time Details Appointments None record ed. Lab None record ed. Referral None record ed. Procedures None record ed. Surgeries None record ed. Imaging None record ed. Medication Orders None record ed. Patient TargetsNo targets recorded. Patient InstructionsNo instructions recorded. Reason for Referral None Reported. Results Created Date Observation Date Name Description Value Unit Range Abnormal Flag Note LastModifiedBy Organization Detail LastModifiedTime 12/21/19 22 12/20/2021 audio gram No observ ation record ed. BARCODE Not Available 2021 10:50:56 Result Notes None recorded. Procedures 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 Date Name Laterality Status Provider Name and Address Organization Details Recorded Time 2 Tympanogram completed ALEJANDRA FELTON [address] [place], [address], [facility] 12/20/2021 10:44:05 2 Audiogram completed ALEJANDRA FELTON [address] [place], [address], [facility] 12/20/2021 10:44:03 Imaging Results Imaging Date Name Status LastModified by Organiz ation Details LastModified Time 12/20/2021 audiogram completed BARCODE Information no t available 12/20/2021 10:50:56 Procedure Notes None recorded. Medical Equipment None Reported. Vitals None Recorded 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 None recorded. Functional Status None recorded. Mental Status None recorded. Family History Nothing Reported. 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 No medical history recorded. Past Encounters Encounter ID Performer Location Encounter Start Date Encounter Closed Date Diagnosis/Indication Diagnosis SNOMED-CT Code Diagnosis ICD10 Code Diagnosis Note [id number] ALEJANDRA F[facility]TON [facility] [address] [place] [address] 12/20/2021 10:08:29 12/20/2021 10:45:18 Sensorineural hearing loss of bilateral ears 610576153 H90.3 L>[facility] Health Concerns Section Related Observation LastModified by Organization Detai ls LastModified Time None Recorded Concern Status LastModified by Organization Details LastModified Time None Recorded Advance Directives Directive None Recorded Payers Encounter Date Sequence Insurance Name Policy Number Policy Singleton Covered Member ID Singleton Member ID Guarantor Name 12/20/2021 1 [place]MEDICARE [facility]) [id number] Nuno Clifton [id number] Nuno Clifton 12/20/2021 2 [employer] [place] Zac Clifton [id number] Nuno Clifton
== END 2024-07-15 23:59 | disposition home or self-care (01) ==
LOC: LAB.DROPOF 07-16 13:00
PROVIDERS: PCP Family Medicine; Visit Provider Family Medicine
DX: G40.919 Epilepsy, unspecified, intractable, without status epilepticus (principal); Z12.5 Encounter for screening for malignant neoplasm of prostate
CPT/HCPCS: 80185; G0103

== ENCOUNTER 2024-07-16 10:28 | Outpatient (CLI) | payer MEDICARE, MEDICAID, SELFPAY | END 2024-07-16 23:59 | disposition home or self-care (01) | LOC: PREOP 10:29 | PROVIDERS: PCP Family Medicine; Visit Provider Surgery | DX: R69 Illness, unspecified (principal) ==

== ENCOUNTER 2024-07-22 07:37 | Day surgery (SDC) | payer MEDICARE, MEDICAID, SELFPAY ==
[2024-07-19 08:13] VITALS: BMI 27.6
[2024-07-22] VITALS (10 sets, daily range): BP systolic 117–162; BP diastolic 84–99; PULSE 59–73; RESP 16–18; TEMP 36.1–43; O2SAT 94–97
--- NOTE | 2024-07-22 08:02 | P.PNANES_ITS ---
[facility] Disclaimer: The information contained in this section may have been updated after the patient was seen, as this information can be updated by other users. 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 Pulmonary emphysema Tobacco abuse counseling Tobacco abuse Smoking greater than 30 pack years COPD mixed type Tear of lateral meniscus of left knee Pes anserinus bursitis of left knee Chest pain Pain in wrist Epididymitis Acute exacerbation of chronic obstructive pulmonary disease Acute exacerbation of chronic obstructive pulmonary disease General weakness Abnormal x-ray of knee Left knee pain COPD exacerbation Encounter for medical assessment Trigger finger of right hand Popping of right knee joint Family history of cancer Encounter for screening colonoscopy Lesion of penis Right hand pain Orchalgia Laceration of ear lobe Elevated liver function tests Medial epicondylitis of left elbow Finger fracture, right UTI (urinary tract infection) Nausea & vomiting Throat pain in adult Trichomonas contact Abdominal pain Nausea Contusion of right elbow Nasal bone fracture Sinusitis Jaundice Bilateral shoulder pain Shoulder pain, left Hand fracture, right Hand pain, right Contusion Elbow contusion Sting, insect Chronic chest pain Superficial skin lesion Hemorrhoids Left wrist sprain Acute flank pain URI (upper respiratory infection) Left elbow pain Ankle pain Atypical chest pain Bursitis of left elbow Vomiting Rib pain on right side Seizure-like activity Acute exacerbation of chronic obstructive airways disease Acute and chronic respiratory failure with hypoxia Scalp abrasion Subtherapeutic serum dilantin level Pharyngitis Testicular pain, right Mid back pain Chest pain Chronic groin pain Otitis media Shortness of breath Encounter for medical assessment Acute bacterial sinusitis Pharyngitis Nasal polyp Influenza A Migraine HTN (hypertension), benign HLD (hyperlipidemia) Depression Asthma Anxiety Upper respiratory infection Pneumonia Schizophrenia Hepatitis B Seizure disorder Chronic obstructive pulmonary disease GERD (gastroesophageal reflux disease) 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 (Updated 07/16/24 @ 10:40 by Robbie Luciano RN) History of nasal surgery H/O vasectomy History of arthroscopy of right shoulder History of arthroscopy of left shoulder H/O arthroscopy of right knee Family History (Updated 07/16/24 @ 10:40 by Robbie Luciano RN) Other Cancer Family history of seizures 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 (Updated 07/16/24 @ 10:41 by Robbie Luciano RN) Smoking Status: Current every day smoker tobacco type: cigarettes packs per day: 1 second hand exposure: No alcohol intake: never substance use type: former substance user, marijuana and methamphetamine current occupational status: disabled Travel in the last 8 weeks: None household members: other housing: house number of children: 2 current occupational exposures/hazards: No caffeine: Yes Have you lived/traveled outside [place] in past 30 days?: No Contact w/someone who lives/traveled outside [place] past 30 days?: No Exposure to someone with infectious disease in past 14 days?: No Do you have a fever (greater than 100.4 F or 38 C)?: No Have you tested positive for COVID-19: No Exposed to someone with COVID-19 in past 14 days?: No Do you have a sore throat?: No Do you have a cough?: No Do you have any weakness?: No Do you have any diarrhea?: No Are you experiencing any unusual bleeding?: No Do you have any muscle aches/pain?: No Do you have any abdominal pain?: No Are you experiencing loss of taste or smell?: No [facility] Anesthesia Checklist Patient Identification Patient Identification: Arm Band Structural Data Admitted From: Long-term Nursing Facility Planned Operative Procedure/s: Laparoscopic Cholecystectomy Consent for Planned Operative Procedure(s) Verified: Yes Verified Documents: Surgical Consent and History and Physical NPO Status Verified Time NPO: 00:00 Additional verifications Anesthesia Reactions: No Airway Assessment Mallampati Score:: Class II C-Spine Mobility Assessed: Yes TMJ Mobility Assessed: Yes Dentition: Edentulous Neurological Assessment Level of Consciousness: Awake, Alert and Appropriate Anesthesia Plan Anesthesia Risk discussed: Yes Anesthesia Plan: Verified ASA Class: III Anesthesia Type: General
[2024-07-22] MEDS: CEFAZOLIN SODIUM 2 GM in 0.9 % SODIUM CHLORIDE 100 ML IV (09:15)
[2024-07-22] MEDS: LIDOCAINE 1% 20ML MDV 20 ML (09:36)
--- NOTE | 2024-07-22 10:03 | EXP.OP.NOTE ---
Date of procedure: 07/22/24 Pre-op Diagnosis:: Right upper quadrant pain Contracted gallbladder ultrasound Post-op Diagnosis:: Chronic cholecystitis Procedure performed:: Laparoscopic cholecystectomy Surgeon:: Los Wallis MD SURFACER OPERATOR:: Arron Lechuga Anesthesia: GETA Estimated blood loss (mL): 15 Operative findings:: Fairly severe pericholecystic fat stranding Significant infundibular thickening Operative note:: After informed consent was obtained, the patient was taken to the operating room and placed in the supine position. General anesthesia was induced and the abdomen was prepped and draped in a sterile fashion. After infiltration with local anesthetic an infraumbilical incision was made. A Veress needle was placed in position. The abdomen was insufflated. A 5 mm optical trocar was placed in position. Under direct visualization, a 12 mm trocar was placed in the subxiphoid position and 2 additional 5 mm trocars were placed in the right upper quadrant. The gallbladder was elevated up and over the liver margin. The tissue around the cystic duct was carefully dissected. 3 clips were placed proximally and the duct was transected with harmonic gwen. Harmonic gwen were then utilized to dissect the gallbladder away from the liver margin with careful attention to the control of the cystic artery. The gallbladder was placed in a retrieval bag and removed through the subxiphoid trocar site. The right upper quadrant was thoroughly irrigated. No active bleeding or bile leak was noted. Fascia at the subxiphoid trocar site was reapproximated utilizing the NeoClose device. The remaining trocars were removed. All wounds were irrigated and skin was closed with 4-0 Monocryl in a subcuticular fashion. Steri-Strips were applied. The patient's anesthetic agents were reversed and extubation was completed prior to transfer to recovery in stable condition. Condition: stable Disposition: PACU Specimens:: Gallbladder and contents Complications:: No immediate
--- NOTE | 2024-07-22 10:11 | EXP.ANES.I ---
[facility] Anesthesia Record Part I Anesthesia Record I Intake, IV Amount: 1,200 Hydration: Adequate Estimated blood loss (mL): 10 Urine output (mL): 0 Blood Products used (#): none Blood Pressure: 151/93 SaO2: 95 Pulse Rate: 73 Airway Patency: Patent Respiratory Rate: 16 Temperature: 97.9 F Patient is:: Drowsy and Stable Stable to PACU at:: 10:05
[2024-07-23 08:04] VITALS: BP 140/91; PULSE 61; RESP 16; TEMP 36.6; O2SAT 96
--- NOTE | 2024-07-23 08:04 | EXP.ANES.II ---
[facility] Anesthesia Record Part II Anesthesia Record Part II Discharge Time: 10:35 Destination: Surgical Day Care (OP Surgery) PACU nurse assessment reviewed?: Yes Patient Condition:: Good Anesthesia Complications:: None Swallowing reflex intact?: Yes Airway Patency: Patent Cyanosis?: No Blood Pressure: 140/91 SaO2: 96 Respiratory Rate: 16 Pulse Rate: 61 Temperature: 97.9 F Mental Status: Alert & Oriented Pain level:: 0 Nausea and/or vomitting:: None Intake, IV Amount: 0 Hydration: Adequate
== END 2024-07-22 11:17 | disposition home or self-care (01) ==
PROVIDERS: PCP Family Medicine; Visit Provider Surgery
PROC: 0FT44ZZ Resection of Gallbladder, Percutaneous Endoscopic Approach (ICD-10-PCS; CPT 47562; principal; 2024-07-22 09:30)
DX: K81.1 Chronic cholecystitis (principal); R10.11 Right upper quadrant pain
CPT/HCPCS: 47562; 96374; J3490; J0690; J1100; J1885; J2405; J3010

== ENCOUNTER 2024-08-12 09:41 | Outpatient (CLI) | payer MEDICARE, MEDICAID, SELFPAY ==
--- NOTE | 2024-08-12 09:43 | XR_ITS ---
FINAL REPORT CLINICAL HISTORY: Right hand pain COMPARISON: 06/20/2024 FINDINGS: RIGHT HAND Three views demonstrate no acute fracture or dislocation. The visualized joint spaces are normally aligned. There is a well-corticated ossific density at the lateral base of the fifth proximal phalange measuring 5 mm, which is stable. An intra-articular loose body is identified. IMPRESSION: Stable exam with no significant change. Reviewed, Interpreted and Dictated by Vlad Duran MD Transcribed by Devora Townsend Authenticated and [facility]
--- OUTSIDE RECORDS SUMMARY | 2024-08-12 09:43 | XMS_ITS | Data Portability ---
Author Organization [facility] ILA Arnold [place] [facility] Address [address] [place] [address] Assessment No assessment recorded. Plan of Treatment [...] Time 2 Tympanogram completed ALEJANDRA FELTON [address] [place], [address], [facility] 12/20/2021 10:44:05 2 Audiogram completed ALEJANDRA FELTON [address] [place], [address], [facility] 12/20/2021 10:44:03 Imaging Results Imaging [...] SNOMED-CT Code Diagnosis ICD10 Code Diagnosis Note [id number] A[facility]JANDRA [facility] [place] [facility] [address] [place] [address] 12/20/2021 10:08:29 12/20/2021 10:45:18 Sensorineural hearing loss of bilateral ears 895935949 H90.3 L>R Health Concerns Section Related Observation LastModified by Organization Detai ls LastModified Time None Recorded Concern Status LastModified by Organization Details LastModified Time None Recorded Advance Directives Directive None Recorded Payers Encounter Date Sequence Insurance Name Policy Number Policy Singleton Covered Member ID Singleton Member ID Guarantor Name 12/20/2021 1 [place]MEDICARE [facility]) [id number] Nuno Clifton [id number] Nuno Clifton 12/20/2021 2 [employer] [place] ([place] Zac Clifton [id number] Nuno Clifton
== END 2024-08-12 23:59 | disposition home or self-care (01) ==
LOC: RAD 09:41
PROVIDERS: PCP Family Medicine; Visit Provider Physician Assistant
DX: M79.641 Pain in right hand (principal)
CPT/HCPCS: 73130

== ENCOUNTER 2024-08-18 12:25 | Emergency (ER) | payer MEDICARE, MEDICAID, SELFPAY ==
[2024-08-18 12:34] VITALS: BP 141/96; PULSE 98; RESP 15; TEMP 36.9; O2SAT 98; BMI 27.7
--- OUTSIDE RECORDS SUMMARY | 2024-08-18 12:37 | XMS_ITS | Data Portability ---
Author Organization [facility] ILA Arnold [place] [facility] Address [address] [place] [address] Assessment No assessment recorded. Plan of Treatment [...] Time 2 Tympanogram completed ALEJANDRA FELTON [address] [place], [address], [facility] 12/20/2021 10:44:05 2 Audiogram completed ALEJANDRA FELTON [address] [place], [address], [facility] 12/20/2021 10:44:03 Imaging Results Imaging Date Name [...] SNOMED-CT Code Diagnosis ICD10 Code Diagnosis Note [id number] ALEJANDRA F[facility] [address] [place] [address] 12/20/2021 10:08:29 12/20/2021 10:45:18 Sensorineural hearing loss of bilateral ears 912780470 H90.3 L>R Health Concerns Section Related Observation LastModified by Organization Detai ls LastModified Time None Recorded Concern Status LastModified by Organization Details LastModified Time None Recorded Advance Directives Directive None Recorded Payers Insurance Date Sequence Insurance Name Policy Number Policy Singleton Covered Member ID Singleton Member ID Guarantor Name 03/12/2022 2 [employer] [place] Zac Clifton [id number] Nuno Clifton 03/12/2022 1 [place]MEDICARE [facility] P[facility]) [id number] Nuno Clifton [id number] Nuno Clifton
[2024-08-18 12:46] LABS: Microscopic, Urine URINE MICROSCOPIC (MICROSCOPIC)
[2024-08-18 12:55] LABS: Appearance,Urine CLEAR (Clear); Bilirubin,Urine Negative (Negative); Blood, Urine Negative (Negative); Color,Urine YELLOW (Yellow); Glucose,Urine (UA) Negative (Negative); Ketones,Urine Negative (Negative); Leukocyte Esterase,Urine Negative (Negative); Nitrate,Urine Negative (Negative); Protein,Urine Negative (Negative); Specific Gravity, Urine >= 1.030 (1.005-1.030); Urobilinogen,Urine 0.2 EU/dl (0.2)
--- NOTE | 2024-08-18 12:59 | CT_ITS ---
FINAL REPORT TECHNIQUE: Thin section axial images were obtained through the abdomen after intravenous contrast. Reconstruction images were obtained from the axial data. Exam was performed using dose reduction techniques. CLINICAL HISTORY: R inguinal pain/bulge COMPARISON: 08/07/2022 FINDINGS: The lung bases are clear. The liver is homogeneous. The gallbladder is absent. The spleen, adrenal glands, and pancreas are unremarkable. There is a small hypodense lesion in the right kidney which may be a cyst.. Abdominal GI tract is without acute abnormality. There is no abdominal lymphadenopathy or ascites. The abdominal wall is intact. No visualized hernia is identified. The pelvic solid organs are unremarkable. The pelvic portions of the GI tract, including the appendix, are without acute abnormality. There is no pelvic lymphadenopathy or ascites. No acute osseous abnormalities identified. IMPRESSION: No CT evidence of acute intra-abdominal or intrapelvic abnormality. No findings to suggest etiology for right inguinal pain. Reviewed, Interpreted and Dictated by Yumiko Galloway MD Transcribed by Mishel Lutz Authenticated and [facility]
--- NOTE | 2024-08-18 13:03 | HMH.EDGENADL ---
Discharge Plan Disposition Patient Disposition: Home, Self-Care Condition: Good Prescriptions Prescriptions: No Action diclofenac sodium [Voltaren Arthritis Pain] 1 % gel 2 g topical QID Qty: 100 2RF Rx Instructions: apply to single elbow, wrist or hand; for hand includes palm/fingers/back of hand duloxetine 60 mg capsule,delayed release(DR/EC) 60 mg PO DAILY Qty: 90 3RF esomeprazole magnesium 40 mg capsule,delayed release(DR/EC) See Rx Instructions .ROUTE .COMPLEX Qty: 90 2RF Dose Instruction: TAKE ONE CAPSULE BY MOUTH EVERY DAY FOR GERD Rx Instructions: TAKE ONE CAPSULE BY MOUTH EVERY DAY FOR GERD phenytoin sodium extended 200 mg capsule 200 mg PO BID Qty: 60 2RF meloxicam 15 mg tablet See Rx Instructions .ROUTE .COMPLEX Qty: 90 2RF Dose Instruction: TAKE ONE TABLET BY MOUTH EVERY DAY --TAKE WITH FOOD-- Rx Instructions: TAKE ONE TABLET BY MOUTH EVERY DAY --TAKE WITH FOOD-- buspirone 10 mg tablet See Rx Instructions .ROUTE .COMPLEX Qty: 90 2RF Dose Instruction: TAKE ONE TABLET BY MOUTH THREE TIMES DAILY FOR ANXIETY Rx Instructions: TAKE ONE TABLET BY MOUTH THREE TIMES DAILY FOR ANXIETY albuterol sulfate 90 mcg/actuation HFA aerosol inhaler See Rx Instructions .ROUTE .COMPLEX Qty: 8.5 6RF Dose Instruction: INHALE 4 puffs BY MOUTH EVERY 4 HOURS FOR 48 hours NEEDED SHORTNESS OF BREATH OR wheezing, THEN USE NEEDED Rx Instructions: INHALE 4 puffs BY MOUTH EVERY 4 HOURS FOR 48 hours NEEDED SHORTNESS OF BREATH OR wheezing, THEN USE NEEDED omega-3 fatty acids 1,000 mg capsule 2,000 mg PO DAILY Qty: 60 6RF Trelegy Ellipta 100-62.5-25 mcg blister with device See Rx Instructions .ROUTE .COMPLEX Qty: 60 2RF Dose Instruction: INHALE 1 PUFF BY MOUTH EVERY DAY FOR copd Rx Instructions: INHALE 1 PUFF BY MOUTH EVERY DAY FOR copd cetirizine 10 mg tablet See Rx Instructions .ROUTE .COMPLEX Qty: 90 2RF Dose Instruction: TAKE ONE TABLET BY MOUTH EVERY DAY Rx Instructions: TAKE ONE TABLET BY MOUTH EVERY DAY azelastine 137 mcg (0.1 %) spray,non-aerosol See Rx Instructions .ROUTE .COMPLEX Qty: 30 5RF Dose Instruction: USE 1 SPRAY in each nostril twice daily as directed Rx Instructions: USE 1 SPRAY in each nostril twice daily as directed atorvastatin 40 mg tablet 40 mg PO DAILY Patient Comments: TAKE ONE TABLET BY MOUTH EVERY DAY olanzapine 5 mg tablet 5 mg PO BID Patient Comments: TAKE ONE TABLET BY MOUTH TWICE DAILY fluticasone propionate 50 mcg/actuation spray,suspension 1 spray INTRANASAL DAILY Patient Comments: instill 1 SPRAY IN EACH NOSTRIL EVERY DAY Referrals Follow up/Referrals: Christine Gonzalez APRN [Primary Care Provider] - See instructions Los Wallis MD [Staff Physician] - See instructions Activity Restrictions/Add. Instructions Additional Instructions/Restrictions: You were evaluated in the emergency department today. CT scan is reassuring at this time. Your labs are also reassuring. We feel that you likely have an inguinal hernia that is causing your symptoms. Please follow-up closely with general surgery. Call Dr. Wallis to schedule an appointment. Return to the emergency department for new or worsening symptoms, such as inability to tolerate oral intake, significant worsening of pain, inability to pass gas or have a bowel movement, or significant worsening of testicular pain. Take Tylenol and ibuprofen as needed for pain. Clinical Impressions Clinical Impression: Right inguinal pain Stand Alone Forms Stand Alone Forms: Work/School Release Instructions Patient Instructions: DI for Groin Hernia Print Language Print Language: Croatian Discharge ED Provider: Wendy Egan General Adult HPI General Chief complaint: Urogenital-Male Stated complaint: Abd pain post op 1mnth Time Seen by Provider: 08/18/24 12:27 Mode of Arrival: Ambulatory Source of Information: Patient Description of Symptoms (Recalled from ER Triage Doc. by RN): patient states he noticed a knot in his groin area this am. painful to touch History of Present Illness HPI narrative: This patient is a 54-year-old male with a history of pulmonary emphysema, tobacco abuse, hypertension, hyperlipidemia, recent cholecystectomy presenting to the emergency department for evaluation concern for a bulge in his right groin area. He states that he first noticed it this morning, and it comes and goes. It is painful to the touch and he states he is having some lower abdominal pain as well. No fevers, nausea, vomiting. He is still having normal bowel movements and passing gas as usual. No urinary symptoms noted. Related Data Home Medications ?Medication ?Instructions ?Recorded ?Confirmed atorvastatin 40 mg tablet 40 mg PO DAILY 03/25/24 08/12/24 fluticasone propionate 50 1 spray intranasal DAILY 03/25/24 08/12/24 mcg/actuation nasal spray,suspension olanzapine 5 mg tablet 5 mg PO BID 03/25/24 08/12/24 Previous Rx's ?Medication ?Instructions ?Recorded duloxetine 60 mg capsule,delayed 60 mg PO DAILY #90 caps 04/20/24 release esomeprazole magnesium 40 mg See Rx Instructions .Route 05/20/24 capsule,delayed release .COMPLEX #90 caps phenytoin sodium extended 200 mg 200 mg PO BID #60 caps 06/28/24 capsule albuterol sulfate 90 mcg/actuation See Rx Instructions .Route 07/14/24 aerosol inhaler .COMPLEX #8.5 grams buspirone 10 mg tablet See Rx Instructions .Route 07/14/24 .COMPLEX #90 tabs meloxicam 15 mg tablet See Rx Instructions .Route 07/14/24 .COMPLEX #90 tabs omega-3 fatty acids 1,000 mg 2,000 mg (2 x 1,000 mg) PO DAILY 07/21/24 capsule #60 caps fluticasone fur. 100 mcg-umeclid See Rx Instructions .Route 08/10/24 62.5 mcg-vilant 25 mcg .COMPLEX #60 blisters inhalat.powder (Trelegy Ellipta) diclofenac sodium 1 % topical gel 2 g topical QID #100 grams 08/12/24 (Voltaren Arthritis Pain) azelastine 137 mcg (0.1 %) nasal See Rx Instructions .Route 08/16/24 spray .COMPLEX #30 mL cetirizine 10 mg tablet See Rx Instructions .Route 08/16/24 .COMPLEX #90 tabs Allergies Allergy/AdvReac Type Severity Reaction Status Date / Time alprazolam (From Xanax) Allergy Unknown Verified 08/12/24 10:14 allergy reaction fluoxetine (From Prozac) Allergy Unknown Verified 08/12/24 10:14 allergy reaction PFSH [facility] Disclaimer: The information contained in this section may have been updated after the patient was seen, as this information can be updated by other users. 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 Pulmonary emphysema Tobacco abuse counseling Tobacco abuse Smoking greater than 30 pack years COPD mixed type Tear of lateral meniscus of left knee Pes anserinus bursitis of left knee Chest pain Pain in wrist Epididymitis Acute exacerbation of chronic obstructive pulmonary disease Acute exacerbation of chronic obstructive pulmonary disease General weakness Abnormal x-ray of knee Left knee pain COPD exacerbation Encounter for medical assessment Trigger finger of right hand Popping of right knee joint Family history of cancer Encounter for screening colonoscopy Lesion of penis Right hand pain Orchalgia Laceration of ear lobe Elevated liver function tests Medial epicondylitis of left elbow Finger fracture, right UTI (urinary tract infection) Nausea & vomiting Throat pain in adult Trichomonas contact Abdominal pain Nausea Contusion of right elbow Nasal bone fracture Sinusitis Jaundice Bilateral shoulder pain Shoulder pain, left Hand fracture, right Hand pain, right Contusion Elbow contusion Sting, insect Chronic chest pain Superficial skin lesion Hemorrhoids Left wrist sprain Acute flank pain URI (upper respiratory infection) Left elbow pain Ankle pain Atypical chest pain Bursitis of left elbow Vomiting Rib pain on right side Seizure-like activity Acute exacerbation of chronic obstructive airways disease Acute and chronic respiratory failure with hypoxia Scalp abrasion Subtherapeutic serum dilantin level Pharyngitis Testicular pain, right Mid back pain Chest pain Chronic groin pain Otitis media Shortness of breath Encounter for medical assessment Acute bacterial sinusitis Pharyngitis Nasal polyp Influenza A Migraine HTN (hypertension), benign HLD (hyperlipidemia) Depression Asthma Anxiety Upper respiratory infection Pneumonia Schizophrenia Hepatitis B Seizure disorder Chronic obstructive pulmonary disease GERD (gastroesophageal reflux disease) 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 History of laparoscopic cholecystectomy History of nasal surgery H/O vasectomy History of arthroscopy of right shoulder History of arthroscopy of left shoulder H/O arthroscopy of right knee Family History Other Cancer Family history of seizures 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 Smoking Status: Current every day smoker tobacco type: cigarettes packs per day: 1 second hand exposure: No alcohol intake: never substance use type: former substance user, marijuana and methamphetamine current occupational status: disabled Travel in the last 8 weeks?: None household members: other housing: house number of children: 2 current occupational exposures/hazards: No caffeine: Yes Have you lived/traveled outside [place] in past 30 days?: No Contact w/someone who lives/traveled outside [place] past 30 days?: No Exposure to someone with infectious disease in past 14 days?: No Do you have a fever (greater than 100.4 F or 38 C)?: No Have you tested positive for COVID-19?: No Exposed to someone with COVID-19 in past 14 days?: No Do you have a sore throat?: No Do you have a cough?: No Do you have any weakness?: No Do you have any diarrhea?: No Are you experiencing any unusual bleeding?: No Do you have any muscle aches/pain?: No Do you have any abdominal pain?: Yes Are you experiencing loss of taste or smell?: No Other 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 Have you received the Flu Vaccine for this season: No Have you received the Pneumonia Vaccine: No ROS Obtained: Yes All systems reviewed & no additional complaints except as documented Physical Exam General General appearance: alert and in no apparent distress Head Head exam: atraumatic and normocephalic Eye Eye exam: Present normal appearance, PERRL and EOMI ENT ENT exam: Present normal exam, normal oropharynx, mucous membranes moist and normal external ear exam Neck Neck exam: Present normal inspection, full ROM and trachea midline; Absent tenderness Chest Chest inspection: Present normal inspection and symmetric chest wall rise; Absent tenderness Respiratory Respiratory exam: Present normal lung sounds bilaterally; Absent respiratory distress, wheezes, stridor or accessory muscle use Cardiovascular Cardiovascular exam: Present regular rate and normal rhythm Abdominal Exam Abdominal exam: Present soft and tenderness (Lower abdomen); Absent distention, guarding, rebound or rigidity Comment: Right inguinal hernia that is reducible, soft, no skin color changes Extremities Exam Extremities exam: Present normal inspection, full ROM and normal capillary refill; Absent tenderness or edema Back Exam Back exam: Present normal inspection and full ROM; Absent tenderness Neurological Exam Neurological exam: Present alert, oriented X3, CN II-XII intact and normal gait; Absent motor sensory deficit Psychiatric Psychiatric exam: Present normal affect and normal mood Skin Skin exam: Present warm and dry Medical Decision Making Medical Records Medical records reviewed: Yes I reviewed the patient's medical records. Screening: Per USPSTF and CDC recommendations, given the prevalence of disease in our region, it is our hospital?s policy to screen for HIV and viral Hepatitis for all patients aged 18 and over and those with ongoing risk factors. Krishna Inquiry Pt receiving controlled substance: No Vital Signs: 08/18/24 12:34 08/18/24 13:16 08/18/24 13:30 Temperature 98.4 F Temperature Source Oral Pulse Rate 78 62 Pulse Rate [Right Radial] 98 H Respiratory Rate 15 Blood Pressure 133/81 125/82 Blood Pressure [Right Arm] 141/96 H Blood Pressure Mean Blood Pressure Mean [Right Arm] 111 Blood Pressure Source [Right Arm] Automatic Cuff Blood Pressure Position [Right Arm] Sitting 02 Sat by Pulse Oximetry 98 96 95 Oxygen Delivery Method Room Air Room Air Room Air 08/18/24 14:00 08/18/24 14:30 Temperature Temperature Source Pulse Rate 70 63 Pulse Rate [Right Radial] Respiratory Rate Blood Pressure 122/81 129/80 Blood Pressure [Right Arm] Blood Pressure Mean 92 Blood Pressure Mean [Right Arm] Blood Pressure Source [Right Arm] Blood Pressure Position [Right Arm] 02 Sat by Pulse Oximetry 95 94 L Oxygen Delivery Method Room Air Lab Data Lab results reviewed: Yes I reviewed the patient's lab results. Lab Results 08/18/24 12:38: Urine Color Yellow, Urine Appearance Clear, Urine pH 6.0, Ur Specific [place] >= 1.030, Urine Protein Negative, Urine Glucose (UA) Negative, Urine Ketones Negative, Urine Blood Negative, Urine Nitrate Negative, Urine Bilirubin Negative, Urine Urobilinogen 0.2, Ur Leukocyte Esterase Negative, Urine RBC None, Urine WBC 3-5, Ur Squamous Epith Cells Occasional, Urine Bacteria Trace 08/18/24 13:16: WBC 6.5, RBC 4.41 L, Hgb 15.2, Hct 42.8, MCV 97.1 H, MCH 34.5 H, MCHC 35.5 H, RDW 13.1, Plt Count 202, MPV 10.0, Neut % (Auto) 39.5, Lymph % (Auto) 36.2, [place] % (Auto) 8.6, Eos % (Auto) 14.3 H, Baso % (Auto) 1.2, Neut # (Auto) 2.6, Lymph # (Auto) 2.4, [place] # (Auto) 0.6, Eos # (Auto) 0.9 H, Baso # (Auto) 0.1, Sodium 138, Potassium 4.3, Chloride 109 H, Carbon Dioxide 25, Anion Gap 8.3, BUN 16, Creatinine 1.20, Estimated Creat Clear 87, Estimated GFR 64, Est GFR ( Amer) 77, Glucose 115 H, Calcium 8.4, Total Bilirubin 0.3, AST 29, ALT 22, Alkaline Phosphatase 89, Total Protein 6.8, Albumin 4.2, Globulin 2.6, Albumin/Globulin Ratio 1.6 08/18/24 13:16 08/18/24 13:16 Orders (Tests/Meds): ED MEDICATIONS Generic Name Dose Route Start Last Admin Trade Name Freq PRN Reason Stop Dose Admin Sodium Chloride 10 ml 08/18/24 13:46 08/18/24 13:48 Sodium Chloride 0.9% 10ml Syr (Rad Only) IV 09/17/24 13:45 10 ml NEEDED PRN Administration Maintain IV Site Discontinued Medications Generic Name Dose Route Start Last Admin Trade Name Freq PRN Reason Stop Dose Admin Iopamidol 75 ml 08/18/24 13:46 08/18/24 13:48 Iopamidol-370 (76%);100ml Bottle IV 08/18/24 13:47 75 ml ONCE ONE Administration ORDERS Category Date Time Status CT abdomen pelvis w con Stat Cat Scan 08/18/24 12:59 Taken CBC w/Auto Diff [Complete Blood Count Auto Diff] Stat Lab 08/18/24 13:16 Completed CMP [Comprehensive Metabolic Panel] Stat Lab 08/18/24 13:16 Completed UA [Urinalysis and Microscopic] Stat Lab 08/18/24 12:38 Completed UA [Urinalysis and Microscopic] Stat Lab 08/18/24 13:53 Ordered Medical Decision Narrative: In summary, this patient is a 54-year-old presenting to the Emergency Department for evaluation of a bulge in his right groin and lower abdominal discomfort that started this morning. Differential diagnoses considered include but are not limited to inguinal hernia, strangulated hernia, incarcerated hernia, appendicitis, bowel obstruction, testicular lesion, testicular torsion. Ruling out the most morbid conditions drove assessment. It should be noted patient's history includes tobacco dependence, hypertension, hyperlipidemia, hepatitis C which may or may not be at goal therapy. This complicates all aspects of care by increasing patient's risk for morbidity. I reviewed patient's past medical records and noted recent cholecystectomy/. On exam, the patient is upright in no acute distress. He has a right inguinal hernia that is soft, reducible. This is what is tender. He has no testicular swelling, tenderness, or abnormal lie. He has some lower abdominal tenderness but he is having normal bowel function with no nausea or vomiting, no rebound or guarding. He denies sexual activity or concern for sexually transmitted infection. Workup included CBC, CMP, urinalysis, CT abdomen pelvis with IV contrast. I independently interpreted CT scan prior to the radiologist read and noted no obstructive process, no obvious large hernia. Please see their read for final interpretation. Labs were obtained that demonstrated reassuring CBC with no significant leukocytosis, reassuring chemistry with normal kidney function and liver enzymes. On reassessment, patient is resting comfortably and is asymptomatic at this time. He states that the pain comes and goes whenever the bulging area feels like it is protruding, but is not currently protruding and is reduced. I feel he likely has a reducible inguinal hernia as a cause of his symptoms based on presentation and initial exam. No evidence of obstruction, strangulation, incarceration. Testicular exam remains normal. Given this, I feel that he is appropriate for discharge home with close follow-up with general surgery and primary care provider. Strict return precautions were given Critical Care Critical Care Time Critical Care Time: No
[2024-08-18 13:16] VITALS: BP 133/81; PULSE 78; O2SAT 96
[2024-08-18 13:22] LABS: Basophils # 0.1 K/mm3 (0-0.2); Basophils % 1.2 % (0.1-2.0); Eosinophils # 0.9 Kmm3 (0.0-0.4); Eosinophils % 14.3 % (0.1-12.0); Hematocrit 42.8 % (42.0-52.0); Hemoglobin 15.2 g/dL (14.1-18.0); Immature Granulocytes # 0.01 10^3uL; Immature Granulocytes % 0.2 %; Lymphocytes # 2.4 K/mm3 (0.7-4.5); Lymphocytes % 36.2 % (10-50); Mean Corpuscular HGB Conc 35.5 g/dL (31.8-35.4); Mean Corpuscular Hemoglobin 34.5 pg (27.0-31.2); Mean Corpuscular Volume 97.1 fl (80-94); Monocytes # 0.6 K/mm3 (0.1-1.0); Monocytes % 8.6 % (1.7-9.3); Neutrophils # 2.6 K/mm3 (1.8-7.8); Neutrophils % 39.5 % (37.0-80.0); Nucleated Red Blood Cells # 0 10^3/uL; Nucleated Red Blood Cells % 0 %; Platelet Count 202 K/mm3 (142-424); Red Blood Count 4.41 M/mm3 (4.60-6.20); Red Cell Distribution Width 13.1 % (11.5-17.5); Red Cell Distribution Width-SD 46.7 fL; White Blood Count 6.5 K/mm3 (4.8-10.8)
[2024-08-18 13:30] VITALS: BP 125/82; PULSE 62; O2SAT 95
[2024-08-18 13:33] LABS: Albumin Level 4.2 g/dl (3.5-5.0); Chloride 109 mmol/L (98-107); Potassium 4.3 mmoL/L (3.5-5.1); Sodium 138 mmol/L (136-145)
[2024-08-18 13:35] LABS: Blood Urea Nitrogen 16 mg/dl (9-20); Creatinine Clearance Estimated 87 mL/min (50-200); Estimated Glomerular Filt Rate 64 ml/min (>60); GFR (African American) 77 ML/MIN (>60)
[2024-08-18 13:36] LABS: Alanine Aminotransferase 22 U/L (12-78); Albumin/Globulin Ratio 1.6 (1.1-1.8); Alkaline Phosphatase 89 U/L (38-126); Anion Gap 8.3 mEq/L (5-15); Aspartate Amino Transferase 29 U/L (17-59); Bilirubin,Total 0.3 mg/dl (0.2-1.3); Calcium 8.4 mg/dl (8.4-10.2); Carbon Dioxide 25 mmol/L (22.0-30.0); Globulin 2.6 g/dL (1.3-3.2); Glucose 115 mg/dl (74-100); Total Protein,Serum 6.8 g/dl (6.3-8.2)
[2024-08-18 13:40] LABS: Bacteria,Urine Trace /lpf; Squamous Epithelial Cell,Urine Occasional #/hpf (0-5)
[2024-08-18] MEDS: IOPAMIDOL-370 (76%);100ML BOTTLE 75 ML IV (13:48)
[2024-08-18] MEDS: SODIUM CHLORIDE 0.9% 10ML SYR (RAD ONLY) 10 ML IV (13:48)
[2024-08-18 14:00] VITALS: BP 122/81; PULSE 70; O2SAT 95
[2024-08-18 14:30] VITALS: BP 129/80; PULSE 63; O2SAT 94
[2024-08-18 15:01] VITALS: BP 122/90; PULSE 68; RESP 18; TEMP 36.8; O2SAT 98
== END 2024-08-18 15:06 | disposition home or self-care (01) ==
PROVIDERS: Emergency Provider Emergency Medicine; PCP Family Medicine
DX: R10.31 Right lower quadrant pain (principal); K40.90 Unilateral inguinal hernia, without obstruction or gangrene, not specified as recurrent
CPT/HCPCS: 74177; 80053; 81001; 85025; 99284; Q9967

== ENCOUNTER 2024-09-20 13:44 | Outpatient (CLI) | payer MEDICARE, MEDICAID, SELFPAY ==
[2024-09-20 21:54] LABS: Phenytoin (Dilantin) 5.4 ug/ml (10-20)
--- OUTSIDE RECORDS SUMMARY | 2024-09-21 14:18 | XMS_ITS | Continuity of Care Document ---
Author Organization [facility] Address [address] [place] [address] Phone Care Team Providers Care Security Operations Engineer Name Role Phone Robbie Putnam MD Primary Care Provider [phone] Encounters Date Type Department Care Team Description 07/21/2018 Refill [facility] [address] [place] [address] Germán Bradley MD Medication Refill 06/30/2018 Telephone [facility] [address] [place] [address] Dustin Mcintyre MD Other 06/02/2018 Orders Only [facility] [address] [place] [address] Radha Urbina CCMA Hepatitis A antibody positive (Primary Dx) 06/02/2018 Orders Only [facility] [address] [place] [address] Oralia Cruz RMA Elevated liver function tests (Primary Dx) 06/01/2018 9:30 AM EST Office Visit [facility] [address] [place] [address] Dustin Mcintyre MD Left inguinal pain (Primary Dx); COPD, mild (HCC); Recurrent major depressive disorder, in full remission; Other epilepsy without status epilepticus, not intractable (HCC); Cigarette nicotine dependence without complication; Gastroesophageal reflux disease without esophagitis; Medicare annual wellness visit, subsequent; Hyperlipidemia with target LDL less than 100; Contusion of neck, subsequent encounter; Impulse control disorder; JB (generalized anxiety disorder); Chronic seasonal allergic rhinitis due to pollen; COPD, mild (HCC); Restless leg syndrome; Nonintractable headache, unspecified chronicity pattern, unspecified headache type; Other epilepsy without status epilepticus, not intractable (HCC); Concentration deficit; Malaise and fatigue; Balance disorder; Elevated liver function tests 04/13/2018 Refill [facility] [address] [place] [address] Germán Bradley MD Medication Refill 12/22/2017 Telephone [facility] [address] [place] [address] Dustin Mcintyre MD Other 12/05/2017 8:00 AM EDT Office Visit [facility] [address] [facility] [place] [address] Germán Bradley MD Other epilepsy without status epilepticus, not intractable (HCC) (Primary Dx); Impulse control disorder; JB (generalized anxiety disorder); COPD, mild (HCC); Recurrent major depressive disorder, in full remission; Gastroesophageal reflux disease without esophagitis; Esophageal dysphagia; Restless leg syndrome; Chronic seasonal allergic rhinitis due to pollen; Generalized osteoarthritis of multiple sites; Hyperlipidemia with target LDL less than 100 07/22/2017 1:00 PM EDT Office Visit [facility] [address] [facility] [place] [address] Germán Bradley MD Other epilepsy without status epilepticus, not intractable (HCC) (Primary Dx); Impulse control disorder; COPD, mild (HCC); Recurrent major depressive disorder, in full remission; Chest wall pain; Rotator cuff syndrome of left shoulder; JB (generalized anxiety disorder); Closed nondisplaced fracture of distal phalanx of finger, unspecified finger, initial encounter 07/08/2017 Patient Outreach [facility] [address] [place] [address] Jennifer Mccain LPN Care Transition; Care Management - Chart Review; ED Follow-Up Call 07/07/2017 9:44 PM EDT - 07/07/2017 10:25 PM EDT Emergency [facility] [address] [place] [address] Robbie Queen MD Rotator cuff strain, left, initial encounter (Primary Dx) Discharge Disposition: Home or Self Care 05/26/2017 9:28 PM EST - 05/26/2017 10:28 PM EST Emergency [facility] [address] [place] [address] Radha Lopez MD Closed nondisplaced fracture of distal phalanx of right ring finger, initial encounter (Primary Dx); Multiple abrasions Discharge Disposition: Group Home 05/06/2017 2:00 PM EST Office Visit [facility] [address] [place] [address] Dustin Mcintyre MD Well adult exam (Primary Dx); Other epilepsy without status epilepticus, not intractable (HCC); COPD, mild (HCC); Gastroesophageal reflux disease without esophagitis; Restless leg syndrome; Hyperlipidemia with target LDL less than 100; Cigarette nicotine dependence without complication; Impulse control disorder; Recurrent major depressive disorder, in full remission; Generalized anxiety disorder 04/08/2017 Refill [facility] [address] [place] [address] Dustin Mcintyre MD Medication Refill 04/08/2017 Refill [facility] [address] [place] [address] Germán Bradley MD Medication Refill 04/08/2017 Telephone [facility] [address] [place] [address] Dustin Mcintyre MD Other 02/27/2017 3:00 PM EST Office Visit [facility] [address] [place] [address] Germán Bradley MD Epidermal inclusion cyst (Primary Dx); Acute bacterial sinusitis; Chronic seasonal allergic rhinitis due to pollen; Lumbar sprain, initial encounter; Generalized osteoarthritis of multiple sites 01/16/2017 Telephone [facility] [address] [place] [address] Norma Greenfield MA Advice Only 01/07/2017 3:21 PM EDT - 01/07/2017 11:59 PM EDT Hospital Encounter [facility] PROC[facility] [place] [address] Other epilepsy without status epilepticus, not intractable (HCC); Hyperlipidemia with target LDL less than 100 Discharge Disposition: Home or Self Care 01/07/2017 Telephone [facility] [address] [facility] [place] [address] Nelda Fritz, ACCOUNTS PAYABLE PROCESSOR Orders 01/07/2017 9:00 AM EDT Office Visit [facility] [address] [place] [address] Dustin Mcintyre MD Gastroesophageal reflux disease without esophagitis (Primary Dx); COPD, mild (HCC); Hyperlipidemia with target LDL less than 100; Generalized anxiety disorder; Acute pain of right knee; Right knee injury, initial encounter; Other epilepsy without status epilepticus, not intractable (HCC); Major depressive disorder, recurrent episode, mild; Chronic seasonal allergic rhinitis due to pollen 11/10/2016 Refill [facility] [address] [place] [address] Germán Bradley MD Medication Refill 10/21/2016 Refill [facility] [address] [place] [address] Nelda Fritz, ACCOUNTS PAYABLE PROCESSOR Medication Refill 10/05/2016 Refill [facility] [address] [place] [address] Germán Bradley MD Medication Refill 08/18/2016 Refill [facility] [address] [place] [address] Germán Bradley MD Medication Refill 08/07/2016 1:30 PM EDT - 08/07/2016 11:59 PM EDT Hospital Encounter [facility] [address] [place] [address] Acute pain of right knee; Right knee injury, initial encounter Discharge Disposition: Home or Self Care 08/07/2016 1:15 PM EDT Office Visit [facility] [address] [place] [address] Dustin Mcintyre MD Acute pain of right knee (Primary Dx); Right knee injury, initial encounter 07/24/2016 Telephone [facility] [address] [place] [address] Dustin Mcintyre MD Other 06/21/2016 Telephone [facility] [address] [place] [address] Nelda Fritz CMA Prior Authorization (nexium needs a PA) 06/12/2016 Telephone [facility] [address] [place] [address] Dustin Mcintyre MD Other 06/11/2016 7:45 AM EST - 06/11/2016 8:00 AM EST Surgery [facility] [address] [place] [address] Wang Vieira MD CARPAL TUNNEL RELEASE BILATERAL 06/11/2016 6:41 AM EST - 06/11/2016 8:24 AM EST Hospital Encounter [facility] [address] [place] [address] Wang Vieira MD Discharge Disposition: Home or Self Care 05/16/2016 1:15 PM EST Office Visit [facility] [address] [place] [address] Germán Bradley MD COPD, mild (HCC) (Primary Dx); Generalized anxiety disorder; Cigarette nicotine dependence without complication; Bilateral carpal tunnel syndrome 05/09/2016 Patient Outreach [facility] [address] [place] [address] Margie Mo LPN Care Management - Chart Review (Chart Review) 05/08/2016 1:42 PM EST - 05/08/2016 11:59 PM EST Hospital Encounter [facility] [address] [place] [address] Emg, Kiko Edg Bilateral carpal tunnel syndrome (Primary Dx) Discharge Disposition: Home or Self Care 05/06/2016 10:05 AM EST - 05/06/2016 11:59 PM EST Hospital Encounter [facility] [address] [place] [address] COPD, mild (HCC) Discharge Disposition: Home or Self Care 04/29/2016 2:30 PM EST Office Visit [facility] [address] [place] [address] Germán Bradley MD Well adult exam (Primary Dx); COPD, mild (HCC); Need for pneumococcal vaccination 04/01/2016 7:27 PM EST - 04/01/2016 11:59 PM EST Hospital Encounter [facility] PROCESSING [facility] [place] [address] Memory loss; Hyperlipidemia with target LDL less than 100 Discharge Disposition: Home or Self Care 04/01/2016 Orders Only [facility] [address] [place] [address] Kinjal Bustillo RMA Gastroesophageal reflux disease without esophagitis (Primary Dx) 04/01/2016 2:30 PM EST Office Visit [facility] [address] [place] [address] Germán Bradley MD Need for influenza vaccination (Primary Dx); Generalized anxiety disorder; Hyperlipidemia with target LDL less than 100; Seasonal allergic rhinitis, unspecified allergic rhinitis trigger; Other epilepsy without status epilepticus, not intractable ([facility]); Restless leg syndrome; Major depressive disorder, recurrent episode, mild; Gastroesophageal reflux disease without esophagitis; COPD, mild ([facility]); Memory loss 02/20/2016 Refill [facility] [address] [facility] [place] [address] Germán Bradley MD Medication Refill 12/28/2015 Refill [facility] [address] [facility] [place] [address] Nelda Fritz CMA Medication Refill 11/30/2015 Patient Outreach [address] [address] Елена Alvares RMA ED Follow-up 11/28/2015 Patient Outreach [address] [address] Margie Mo LPN Care Management - Chart Review (Chart Review-Patient discharged from ED 11/27/2015) 11/27/2015 5:23 PM EDT - 11/27/2015 6:28 PM EDT [facility] [address] [place] [address] Michelle Shirley MD Right-sided low back pain without sciatica (Primary Dx) Discharge Disposition: Home or Self Care 11/21/2015 Patient Outreach [address] [address] Margie Mo LPN Care Management - Chart Review (Chart Review-Patient discharged from ED 11/20/2015) 11/20/2015 Refill [facility] [address] [address] Germán Bradley MD Medication Refill 11/20/2015 3:28 PM EDT - 11/20/2015 4:01 PM EDT Emergency [facility] [address] [place] [address] Devora Lindsey MD Fall, initial encounter (Primary Dx); Cervical strain, initial encounter; Abrasions of multiple sites; Right shoulder strain, initial encounter Discharge Disposition: Home or Self Care 11/16/2015 8:07 PM EDT - 11/16/2015 11:59 PM EDT Hospital Encounter [facility] PROCESSING [facility] [place] [address] Other epilepsy without status epilepticus, not intractable (HCC); Hyperlipidemia with target LDL less than 100 Discharge Disposition: Home or Self Care 11/16/2015 Telephone [facility] [address] [place] [address] Nelda Fritz CMA Prior Authorization ([email or web address] needs a PA) 11/16/2015 3:00 PM EDT Office Visit [address] [place] [address] Germán Bradley MD Chronic obstructive pulmonary disease with acute exacerbation (HCC) (Primary Dx); Hyperlipidemia with target LDL less than 100; Generalized anxiety disorder; Restless leg syndrome; Major depressive disorder, recurrent episode, mild; Other epilepsy without status epilepticus, not intractable (HCC); Gastroesophageal reflux disease without esophagitis; Seasonal allergies; Acute bacterial sinusitis 10/21/2015 Refill [facility] [address] [place] [address] Germán Bradley MD Medication Refill 10/21/2015 Refill [facility] [address] [facility] [place] [address] Dustin Mcintyre MD Medication Refill 09/21/2015 Refill [facility] [address] [place] [address] Dustin Mcintyre MD Medication Refill 09/15/2015 Telephone [facility] [address] [place] [address] Germán Bradley MD Other 09/04/2015 Telephone [facility] [address] [place] [address] Nelda Fritz CMA Referral 08/23/2015 Refill [facility] [address] [place] [address] Germán Bradley MD Medication Refill 08/22/2015 Telephone [facility] [address] [place] [address] Germán Bradley MD Other 08/17/2015 Telephone [facility] [address] [place] [address] Germán Bradley MD Letter for School/Work 08/08/[address] [place] [address] Nelda Fritz [facility] Prior Authorization (atarax needs a PA) 08/07/2015 Refill [facility] [address] [place] [address] Germán Bradley MD Medication Refill 07/20/2015 Refill [facility] [address] [place] [address] Germán Bradley MD Medication Refill 07/05/2015 Refill [facility] [address] [place] [address] Dustin Mcintyre MD Medication Refill 06/26/2015 Refill [facility] [address] [place] [address] Gemrán Bradley MD Medication Refill 06/26/2015 Patient Outreach [facility] [address] [place] [address] Елена Alvares RMA ED Follow-up 06/26/2015 Patient Outreach [facility] [address] [place] [address] Margie Mo LPN Care Management - Chart Review (Discharged from ED 06/23/2015 Chart Reviewed) 06/23/2015 4:34 PM EST - 06/23/2015 6:22 PM EST Emergency [facility] [address] [place] [address] Elina Hall MD Pain of left lower extremity (Primary Dx) Discharge Disposition: Home or Self Care 06/20/2015 8:30 AM EST - 06/20/2015 9:30 AM EST Surgery [facility] [place] [address] Crow Love MD SHOULDER ARTHROSCOPY SUBACROMIAL DECOMPRESSION /FULL MILLY 06/20/2015 7:52 AM EST Anesthesia Event [facility] [place] [address] Jerson Can DO Mucenski, Cathleen M, MD 06/20/2015 6:32 AM EST - 06/20/2015 10:47 AM EST Hospital Encounter [facility] [place] [address] Crow Love MD Discharge Disposition: Home or Self Care 05/10/2015 Refill [facility] [address] [place] [address] Dustin Mcintyre MD Medication Refill 2015 10:00 AM EST Office Visit [facility] [address] [place] [address] Germán Bradley MD Well adult (Primary Dx); Cigarette nicotine dependence without complication 04/20/2015 3:26 PM EST - 04/20/2015 11:59 PM EST Hospital Encounter [facility] PROCESSING [facility] [place] [address] Other epilepsy without status epilepticus, not intractable (HCC); Hyperlipidemia with target LDL less than 100 Discharge Disposition: Home or Self Care 04/20/2015 Telephone [facility] [address] [place] [address] MaynorarturoЕлена MARYANNESabine Anxiety 04/20/2015 9:30 AM EST Office Visit [facility] [address] [place] [address] Germán Bradley MD Chronic obstructive pulmonary disease with acute exacerbation (HCC) (Primary Dx); Generalized anxiety disorder; Gastroesophageal reflux disease without esophagitis; Restless leg syndrome; Hyperlipidemia with target LDL less than 100; Major depressive disorder, recurrent episode, mild; Other epilepsy without status epilepticus, not intractable (HCC); Impingement syndrome, shoulder, right 04/12/2015 Refill [facility] [address] [place] [address] Dustin Mcintyre MD Medication Refill 04/11/2015 Refill [facility] [address] [place] [address] Dustin Mcintyre MD Medication Refill 04/11/2015 Refill [facility] [address] [place] [address] Dustin Mcintyre MD Medication Refill 03/30/2015 11:00 AM EST Office Visit [facility] [address] [place] [address] Germán Bradley MD Shoulder tendonitis, right (Primary Dx); Primary osteoarthritis of right shoulder 03/23/2015 Orders Only [facility] Neu[facility] [address] [place] [address] Tu Rivera MD Seizure disorder (HCC) (Primary Dx) 03/22/2015 11:10 AM EST - 03/22/2015 11:59 PM [facility] Hospital Encounter [facility] [address] [place] [address] Dustin Mcintyre MD Right shoulder pain Discharge Disposition: Home or Self Care 03/21/2015 Orders Only [facility] [address] [place] [address] Елена Alvares RMA Chronic obstructive pulmonary disease with acute exacerbation (HCC) (Primary Dx); Generalized anxiety disorder 03/20/2015 Refill [facility] [address] [place] [address] Dustin Mcintyre MD Medication Refill 03/17/2015 10:15 AM EST Office Visit [facility] [address] [place] [address] Dustin Mcintyre MD Right shoulder pain (Primary Dx) 02/24/2015 11:00 AM EST Office Visit [facility] [address] [place] [address] Dustin Mcintyre MD Generalized anxiety disorder (Primary Dx); Trapezius strain, unspecified laterality, initial encounter; Medial epicondylitis of elbow, right 01/24/2015 Refill [facility] [address] [place] [address] Dustin Mcintyre MD Medication Refill 01/24/2015 Refill [facility] [address] [place] [address] Nelda Fritz, ACCOUNTS PAYABLE PROCESSOR Medication Refill 01/23/2015 Refill [facility] [address] [place] [address] Nelda Fritz Veronica, ACCOUNTS PAYABLE PROCESSOR Medication Refill 12/21/2014 Refill [facility] [address] [place] [address] Dustin Mcintyre MD Medication Refill 11/04/2014 3:00 PM EDT - 11/04/2014 11:59 PM EDT Hospital Encounter [facility] LAB [facility] PROCESSING [facility] [place] [address] Other epilepsy without status epilepticus, not intractable ([facility]); Hyperlipidemia LDL goal < 100 Discharge Disposition: Home or Self Care 11/04/2014 9:15 AM EDT Office Visit [address] [place] [address] Dustin Mcintyre MD Generalized anxiety disorder (Primary Dx); Asthma, unspecified asthma severity, uncomplicated; COPD (chronic obstructive pulmonary disease) ([facility]); Restless leg syndrome; Gastroesophageal reflux disease without esophagitis; Other epilepsy without status epilepticus, not intractable ([facility]); Hyperlipidemia LDL goal < 100 11/01/[address] [place] [address] Dustin Mcintyre MD Medication Refill 11/01/[address] [place] [address] Dustin Mcintyre MD Medication Refill 10/31/[address] [place] [address] Dustin Mcintyre MD Medication Refill 10/14/2014 Refill [facility] [address] [place] [address] Dustin Mcintyre MD Medication Refill 08/29/[address] [place] [address] Nelda Fritz CMA Medication Management (atrarax needs a pa) 08/10/[address] [place] [address] Nelda Fritz CMA Medication Management (hyrdoxyzine needs a PA) 07/13/[address] [place] [address] Nelda Fritz CMA Medication Problem 07/08/2014 9:28 AM EDT - 07/08/2014 11:59 PM EDT Hospital Encounter [facility] Physical Therapy [address] [place] [address] Shanice Ybarra, PT Discharge Disposition: Home or Self Care 07/01/2014 10:04 AM EDT - 07/01/2014 11:59 PM EDT Hospital Encounter [facility] Physical Therapy [address] [place] [address] Shanice Ybarra, PT Discharge Disposition: Home or Self Care 06/28/2014 9:27 AM EDT - 06/28/2014 11:59 PM EDT Hospital Encounter [facility] Physical Therapy [address] [place] [address] Margarita Doran, PT Discharge Disposition: Home or Self Care 06/21/2014 8:15 AM EDT - 06/21/2014 8:45 AM EDT Surgery [facility] [place] [address] [address] Crow Love MD KNEE ARTHROSCOPY MENISCECTOMY/REPAIR (ALSO COVERS ARTHROSCOPIC INCISION AND DRAINAGE/DEBRIDEMENT) 06/21/2014 7:50 AM EDT Anesthesia Event [facility] [place] [address] [address] Artem Naqvi MD Brannon, Daniel Todd, DO 06/21/2014 6:35 AM EDT - 06/21/2014 10:32 AM EDT Hospital Encounter [facility] [place] [address] [address] Crow Love MD Discharge Disposition: Home or Self Care 06/08/2014 10:30 AM EST Office Visit [facility] [address] [place] [address] Dustin Mcintyre MD Pre-op exam (Primary Dx); Arthritis of knee; Folliculitis; Epilepsy (HCC); Restless leg syndrome; JB (generalized anxiety disorder); Hearing loss in left ear; GERD (gastroesophageal reflux disease) 05/25/2014 Telephone [facility] [address] [place] [address] Dustin Mcintyre MD Results 05/21/2014 Refill [facility] [address] [place] [address] Dustin Mcintyre MD Medication Refill 05/20/2014 7:41 PM EST - 05/20/2014 11:59 PM EST Hospital Encounter [facility] PROCESSING [facility] [place] [address] Hypernatremia; Pre-op testing Discharge Disposition: Home or Self Care 05/20/2014 Orders Only [facility] [address] [place] [address] Lay Minor MD Hypernatremia (Primary Dx); Pre-op testing 05/20/2014 11:00 AM EST Office Visit [facility] [address] [facility] [place] [address] Dustin Mcintyre MD Bronchitis (Primary Dx); COPD exacerbation (HCC); Asthma exacerbation, moderate persistent; Chest wall pain; Vomiting; Hypernatremia 05/19/2014 Patient Outreach [facility] [address] [facility] [place] [address] Nasrin Perry, airplane mechanic (ED f/u call ) 05/18/2014 11:12 AM EST - 05/18/2014 12:37 PM EST Emergency [facility] [address] [facility] [place] [address] Mariaelena Rossi MD Acute bronchitis (Primary Dx); Acute sinusitis; COPD (chronic obstructive pulmonary disease) (HCC) Discharge Disposition: Home or Self Care 2014 7:57 PM EST - 2014 11:59 PM EST Hospital Encounter [facility]ELV[facility] PROCESSING [facility] [place] [address] Healthcare maintenance; Epilepsy (HCC) Discharge Disposition: Home or Self Care 2014 10:00 AM EST Office Visit [facility] [address] [facility] [place] [address] Dustin Mcintyre MD Epilepsy ([facility]) (Primary Dx); Generalized anxiety disorder; Hyperlipidemia LDL goal < 100; Restless leg syndrome; GERD (gastroesophageal reflux disease); Healthcare maintenance; COPD (chronic obstructive pulmonary disease) ([facility]) 04/01/2014 Telephone [facility] [address] [place] [address] Dustin Mcintyre MD Results 03/23/2014 11:00 AM EST Office Visit [facility] [address] [place] [address] Wheezing; SOB (shortness of breath) Discharge Disposition: Home or Self Care 03/18/2014 10:45 AM EST Office Visit [facility] [address] [place] [address] Dustin Mcintyre MD Wheezing (Primary Dx); SOB (shortness of breath) 03/17/2014 Telephone [facility] [address] [place] [address] Nelda Fritz CMA Medication Management (protonix bid needs a PA) 03/14/2014 Telephone [facility] [address] [place] [address] Dustin Mcintyre MD Medication Refill 03/08/2014 Telephone [facility] [address] [place] [address] Dustin Mcintyre MD Other 03/08/2014 11:20 AM EST - 03/08/2014 11:59 PM EST Hospital Encounter [facility] [address] [place] [address] Allergic rhinitis, cause unspecified (Primary Dx); Epilepsy ([facility]); Hearing loss in left ear; GERD (gastroesophageal reflux disease); JB (generalized anxiety disorder); FHx: prostate cancer; FHx: lung cancer; Nicotine dependence; Restless leg syndrome Discharge Disposition: Home or Self Care 03/08/2014 10:45 AM EST Office Visit [facility] [address] [place] [address] Dustin Mcintyre MD Hyperlipidemia LDL goal < 100 (Primary Dx); GERD (gastroesophageal reflux disease); Asthma, unspecified asthma severity, uncomplicated; Epilepsy (HCC); Generalized anxiety disorder; Restless leg syndrome 02/12/2014 Refill [facility] [address] [place] [address] Dustin Mcintyre MD Medication Refill 02/04/2014 8:00 AM EDT - 02/04/2014 9:52 AM EDT Surgery [facility] [address] [place] [address] Los Gordon MD FUNCTIONAL ENDOSCOPIC SINUS SURGERY/SINOSCOPY 02/04/2014 6:27 AM EDT - 02/04/2014 11:53 AM EDT Hospital Encounter [facility] SAME DAY SURGERY [address] [place] [address] Los Gordon MD Discharge Disposition: Home or Self Care 02/02/2014 11:00 AM EDT - 02/02/2014 11:59 PM EDT Hospital Encounter [facility] PRE-ADMIT TESTING [address] [place] [address] Pat, Clarice Discharge Disposition: Home or Self Care 01/24/2014 11:29 AM EDT - 01/24/2014 11:59 PM EDT Hospital Encounter [facility] [address] [place] [address] Esophageal reflux (Primary Dx); Dyspepsia and other specified disorders of function of stomach; Dysphagia, unspecified(787.20) Discharge Disposition: Home or Self Care 11/19/2013 10:30 AM EDT Office Visit [facility] [address] [place] [address] Dustin Mcintyre MD Laceration of wrist, left, subsequent encounter (Primary Dx) 11/13/2013 Refill [facility] [address] [place] [address] Marcela Ding MD Medication Refill 11/12/2013 6:42 PM EDT - 11/12/2013 7:45 PM EDT Emergency [facility] [address] [facility] [place] [address] Jerson Go MD Wrist laceration, left, initial encounter (Primary Dx) Discharge Disposition: Home or Self Care 11/03/[address] [place] [address] Chyna Mcgraw MA Referral (ORTHO) 11/01/2013 Orders Only [address] [place] [address] Marcela Ding MD Knee pain, right (Primary Dx) 11/01/2013 8:55 AM EDT - 11/01/2013 11:59 PM EDT Hospital Encounter [facility] [address] [place] [address] Dustin Mcintyre MD Right knee pain; Recurrent right knee instability Discharge Disposition: Home or Self Care 10/29/[address] [place] [address] Dustin Mcintyre MD Other 10/28/[address] [address] Dustin Mcintyre MD Referral 10/25/2013 4:43 PM EDT - 10/25/2013 11:59 PM EDT Hospital Encounter [facility] [place] [address] Hyperlipidemia LDL goal < 100 (Primary Dx); Epilepsy (HCC); Screening PSA (prostate specific antigen); Family history of prostate cancer; FHx: prostate cancer; Other nonspecific abnormal serum enzyme levels Discharge Disposition: Home or Self Care 10/25/[address] [place] [address] Nelda Fritz CMA Medication Management (Nexium bid dosing needs a PA) 10/25/2013 10:30 AM EDT Office Visit [facility] [address] [place] [address] Dustin Mcintyre MD Epilepsy ([facility]) (Primary Dx); Asthma, unspecified asthma severity, uncomplicated; Generalized anxiety disorder; JB (generalized anxiety disorder); GERD (gastroesophageal reflux disease); Family history of prostate cancer; Hyperlipidemia LDL goal < 100; FHx: prostate cancer; Hearing loss in left ear; Restless leg syndrome; Right knee pain; Recurrent right knee instability; Screening PSA (prostate specific antigen) 10/18/2013 Refill [facility] [address] [place] [address] Germán Bradley MD Medication Refill 10/13/2013 10:00 AM EDT Office Visit [facility] Neurology [facility] [address] [place] [address] Tu Rivera MD Epilepsy ([facility]) (Primary Dx); Hearing loss in left ear; Nicotine dependence; Restless leg syndrome 09/10/2013 Refill [facility] [address] [place] [address] Germán Bradley MD Medication Refill 08/30/2013 Refill [facility] [address] [place] [address] Nelda Fritz, ACCOUNTS PAYABLE PROCESSOR Medication Refill 08/26/2013 Telephone [facility] [address] [place] [address] Nelda Fritz, ACCOUNTS PAYABLE PROCESSOR Referral 08/26/2013 Refill [facility] [address] [place] [address] Germán Bradley MD Medication Refill 08/26/2013 11:20 AM EDT - 08/26/2013 11:59 PM EDT Hospital Encounter [facility] Physical [facility] [address] [place] [address] Yvrose Palma, PT Discharge Disposition: Home or Self Care 08/17/2013 1:17 PM EDT - 08/17/2013 11:59 PM EDT Hospital Encounter [facility] Physical [facility] [address] [place] [address] Yvrose Palma, PT Discharge Disposition: Home or Self Care 08/16/2013 Refill [facility] [address] [place] [address] Germán Bradley MD Medication Refill 08/16/2013 Refill [facility] [address] [place] [address] Dustin Mcintyre MD Medication Refill 08/12/2013 Refill [facility] [address] [place] [address] Marcela Ding MD Medication Refill 08/12/2013 Refill [facility] [address] [place] [address] Germán Bradley MD Medication Refill 08/12/2013 Refill [facility] [address] [place] [address] Dsutin Mcintyre MD Medication Refill 07/27/2013 Telephone [facility] [address] [place] [address] Nelda Fritz CMA Medication Refill 07/23/2013 8:30 AM EDT - 07/23/2013 11:59 PM EDT Hospital Encounter [facility] [address] [place] [address] Los Gordon MD Sensorineural hearing loss, asymmetrical; Abnormal auditory perception, unspecified Discharge Disposition: Home or Self Care 07/07/2013 Refill [facility] [address] [place] [address] Nelda Fritz CMA Medication Refill 06/29/2013 2:00 PM EDT - 06/29/2013 11:59 PM EDT Hospital Encounter [facility] [address] [place] [address] Mag Becerra CCC-REHABILITATION SERVICES DIRECTOR Discharge Disposition: Home or Self Care 06/25/2013 Refill [facility] [address] [place] [address] Dustin Mcintyre MD Medication Refill 06/01/2013 Telephone [facility] [address] [place] [address] Germán Bradley MD Labs Only 05/31/2013 4:54 PM EST - 05/31/2013 11:59 PM EST Hospital Encounter [facility] [place] [address] Well adult exam; Epilepsy (HCC) Discharge Disposition: Home or Self Care 05/31/2013 10:00 AM EST - 05/31/2013 4:53 PM EST Hospital Encounter [facility] [address] [place] [address] COPD (chronic obstructive pulmonary disease) (HCC); FHx: lung cancer; Cough Discharge Disposition: Home or Self Care 05/31/2013 9:15 AM EST Office Visit [facility] [address] [place] [address] Germán Bradley MD Well adult exam (Primary Dx); COPD (chronic obstructive pulmonary disease) (HCC); Epilepsy (HCC); GERD (gastroesophageal reflux disease); JB (generalized anxiety disorder); Atypical moles; FHx: prostate cancer; FHx: lung cancer; Cough; Tobacco abuse 05/26/2013 Telephone [facility] [address] [place] [address] Dustin Mcintyre MD Epistaxis 05/24/2013 Refill [facility] [address] [place] [address] Germán Bradley MD Medication Refill 05/21/2013 Refill [facility] [address] [place] [address] Dustin Mcintyre MD Medication Refill 05/21/2013 Refill [facility] [address] [place] [address] Germán Bradley MD Medication Refill 05/03/[address] [place] [address] Catrina Nelda Veronica [facility] Medication Refill 04/29/2013 10:15 AM EST Office Visit [facility] [address] [place] [address] Germán Bradley MD JB (generalized anxiety disorder) (Primary Dx); Back strain 04/15/[address] [place] [address] Marcela Ding MD Medication Refill 04/15/[address] [place] [address] Germán Bradley MD Medication Refill 03/24/[address] [place] [address] Veronica Freed MA Anxiety 03/16/[address] [place] [address] Chyna Mcgraw MA Referral (ORTHO) 03/15/2013 1:00 PM EST Office Visit [facility] [address] [place] [address] Dustin Mcintyre MD Arthralgia of shoulder region, right (Primary Dx); Arthritis of elbow, right; GERD (gastroesophageal reflux disease); RLS (restless legs syndrome); Epilepsy (HCC); Bipolar affective disorder (HCC); Generalized anxiety disorder; Asthma 03/14/2013 Refill [facility] [address] [place] [address] Germán Bradley MD Medication Refill 03/05/2013 Telephone [facility] [address] [place] [address] Dustin Mcintyre MD Medication Change 03/02/2013 2:15 PM EST Office Visit [facility] [address] [place] [address] Dustin Mcintyre MD Shoulder pain (Primary Dx) 03/02/2013 1:27 PM EST - 03/02/2013 11:59 PM [facility] Hospital Encounter [facility] [address] [place] [address] Kathy Wasserman, PT Discharge Disposition: Home or Self Care 03/01/2013 Refill [facility] [place] [address] [place] [address] Germán Bradley MD Medication Refill 03/01/2013 Refill [facility] [place] [address] [place] [address] Dustin Mcintyre MD Medication Refill 03/01/2013 Refill [facility] [place] [address] [place] [address] Marcela Ding MD Medication Refill 02/27/2013 Telephone [facility] [address] [place] [address] Germán Bradley MD Other 02/26/2013 10:07 AM EST - 02/26/2013 11:59 PM EST Hospital Encounter [facility] [address] [place] [address] Kathy Wasserman, PT Discharge Disposition: Home or Self Care 02/18/2013 12:51 PM EST - 02/18/2013 11:59 PM EST Hospital Encounter [facility] [address] [place] [address] Kathy Wasserman, PT Discharge Disposition: Home or Self Care 02/12/2013 Refill [facility] [place] [facility] [address] [place] [address] Dustin Mcintyre MD Medication Refill 02/10/2013 9:06 AM EDT - 02/10/2013 11:59 PM EDT Hospital Encounter [address] [place] [address] Kathy Wasserman, PT Discharge Disposition: Home or Self Care 02/05/2013 12:26 PM EDT - 02/05/2013 11:59 PM EDT Hospital Encounter [address] [place] [address] Kathy Wasserman, PT Discharge Disposition: Home or Self Care 02/01/2013 Refill [facility] [address] [place] [address] Marcela Ding MD Medication Refill 01/29/2013 Telephone [facility] [address] [place] [address] Germán Bradley MD Medication Refill 01/18/2013 8:30 AM EDT - 01/18/2013 9:30 AM EDT Surgery [facility] [address] [place] [address] Crow Love MD SHOULDER ARTHROSCOPY LABRAL/BANKART/ BICEP TENODESIS (COVERS SUPERIOR LABRAL ANTERIOR POSTERIOR REPAIR/SLAP) 01/18/2013 5:21 AM EDT - 01/18/2013 12:50 PM EDT Hospital Encounter [facility] SAME DAY SURGERY [address] [place] [address] Crow Love MD Discharge Disposition: Home or Self Care 01/14/2013 Telephone [facility] [address] [address] Germán Bradley MD Medication Reaction 01/08/2013 2:00 PM EDT Office Visit [facility] [address] [place] [address] Germán Bradley MD Infected inclusion cyst (Primary Dx); RLS (restless legs syndrome) 12/25/2012 12:38 PM EDT - 12/25/2012 11:59 PM EDT Hospital Encounter [facility] [address] [place] [address] Germán Bradley MD Rotator cuff syndrome of left shoulder Discharge Disposition: Home or Self Care 12/20/2012 9:52 AM EDT - 12/20/2012 11:16 AM EDT Emergency [facility] [place] [address] Pino Maxwell MD Foot sprain (Primary Dx) Discharge Disposition: Home or Self Care 12/16/2012 1:45 PM EDT Office Visit [facility] [address] [place] [address] Germán Bradley MD Rotator cuff syndrome of left shoulder (Primary Dx); Need for influenza vaccination 12/15/2012 Telephone [facility] [address] [place] [address] Germán Bradley MD Referral 12/11/[address] [place] [address] Marcela Ding MD Medication Refill 12/11/2012 Refill [facility] [address] [place] [address] Germán Bradely MD Medication Refill 12/02/2012 11:17 AM EDT - 12/02/2012 11:59 PM EDT Hospital Encounter [facility] Physical Therapy [facility] [address] [place] [address] Chyna Mathis, [place] Discharge Disposition: Home or Self Care 12/02/2012 10:00 AM EDT Office Visit [facility] [address] [place] [address] Germán Bradley MD Seborrhea (Primary Dx); Cervical lymphadenitis 11/19/2012 Refill [facility] [address] [place] [address] Germán Bradley MD Medication Refill 11/18/2012 10:41 AM EDT - 11/18/2012 11:59 PM EDT Hospital Encounter [facility] Physical Therapy [facility] [address] [place] [id number] Shanice Ybarra PT Rotator cuff syndrome (Primary Dx) Discharge Disposition: Home or Self Care 11/09/2012 12:11 PM EDT - 11/09/2012 11:59 PM EDT Hospital Encounter [facility] [address] [place] [address] Scoliosis; Back pain Discharge Disposition: Home or Self Care 11/09/2012 11:30 AM EDT Office Visit [facility] [address] [place] [address] Germán Bradley MD Rotator cuff syndrome Bilateral (Primary Dx) 11/05/2012 [address]phone [address] [place] [address] Germán Bradley MD Back Pain 11/03/2012 Telephone [address] [place] [address] Nelda Fritz CMA Back Pain 11/02/2012 5:12 PM EDT - 11/02/2012 11:59 PM EDT Hospital Encounter [facility] [place] [address] Epilepsy (HCC) Discharge Disposition: Home or Self Care 11/02/2012 9:00 AM EDT Office Visit [facility] [address] [place] [address] Germán Bradley MD LBP (low back pain) (Primary Dx); Neck pain; Shoulder pain; JB (generalized anxiety disorder); Epilepsy (HCC) 10/31/2012 Refill [facility] [address] [place] [address] Nelda Fritz CMA Medication Refill 10/26/2012 Refill [facility] [place] [address] [place] [address] Germán Bradley MD Medication Refill 10/20/2012 Telephone [facility] [address] [place] [address] Dustin Mcintyre MD Other 10/14/2012 Telephone [facility] [place] [address] [place] [address] Dustin Mcintyre MD Medication Refill; Medication Change 10/09/2012 5:34 PM EDT - 10/09/2012 11:59 PM EDT Hospital Encounter [facility] [address] Epilepsy ([facility]); Generalized anxiety disorder Discharge Disposition: Home or Self Care 10/09/2012 Telephone [place] [address] [place] [address] Norma Greenfield MA Medication Change 10/09/2012 8:30 AM EDT Office Visit [place] [address] [place] [address] Dustin Mcintyre MD Epilepsy (HCC) (Primary Dx); GERD (gastroesophageal reflux disease); Asthma; Bipolar affective disorder (HCC); Generalized anxiety disorder; ED (erectile dysfunction) 06/20/2012 Refill [facility] [place] [address] [place] [address] Marcela Ding MD Medication Refill 05/01/2012 1:57 PM EST - 05/01/2012 11:59 PM EST Hospital Encounter [facility] Physical Therapy [facility] [address] [place] [phone] Kathy Wasserman, PT Discharge Disposition: Home or Self Care 04/24/2012 1:47 PM EST - 04/24/2012 11:59 PM EST Hospital Encounter [facility] [address] [place] [address] Kathy Wasserman, PT Discharge Disposition: Home or Self Care 04/17/2012 1:01 PM EST - 04/17/2012 11:59 PM EST Hospital Encounter [facility] [address] [place] [address] Kathy Wasserman, PT Discharge Disposition: Home or Self Care 04/16/2012 Refill [facility] [address] [place] [address] Marcela Ding MD Medication Refill 04/05/2012 5:08 PM EST - 04/05/2012 6:19 PM EST Emergency [facility] [address] [place] [address] Roshan Sanchez MD Chronic knee pain (Primary Dx) Discharge Disposition: Home or Self Care 03/09/2012 Refill [facility] [address] [place] [address] Marcela Ding MD Medication Refill 03/03/2012 Refill [facility] [address] [address] Marcela Ding MD Medication Refill 02/28/2012 8:15 PM EST - 02/28/2012 11:59 PM EST Hospital Encounter [facility] [place] [address] Epilepsy (HCC); Bipolar affective disorder (HCC); Abdominal pain Discharge Disposition: Home or Self Care 02/28/2012 10:20 AM EST Office Visit [facility] [address] [place] [address] Germán Bradley MD Epilepsy (HCC); Abdominal pain; Bipolar affective disorder (HCC); Asthma; Knee pain, left 01/17/2012 Telephone [facility] [address] [place] [address] Marcela Ding MD Medication Refill 12/21/2011 Refill [facility] [address] [place] [address] Germán Bradley MD Medication Refill 12/02/2011 7:06 PM EDT - 12/02/2011 11:59 PM EDT Hospital Encounter [facility] [place] [address] Bipolar affective disorder (HCC); Encounter for long-term (current) use of medications Discharge Disposition: Home or Self Care 12/02/2011 10:20 AM EDT Office Visit [facility] [address] [place] [address] Dustin Mcintyre MD Knee pain, left (Primary Dx); Epilepsy (HCC); Bipolar affective disorder (HCC); Asthma; COPD (chronic obstructive pulmonary disease) (HCC); Anxiety; Encounter for long-term (current) use of medications 10/31/2011 Refill [place] [address] [place] [address] Germán Bradley MD Medication Refill 10/17/2011 [address] [place] [address] Marcela Ding MD Other 10/01/2011 3:24 PM EDT - 10/01/2011 4:31 PM EDT Emergency [facility] [address] [place] [address] Mariaelena Rossi MD Contusion of third finger, right; Left elbow contusion; Fall Discharge Disposition: Home or Self Care 09/14/2011 Refill [facility] [address] [place] [address] Germán Bradley MD Medication Refill 08/23/2011 9:20 AM EDT Office Visit [facility] [address] [place] [address] Germán Bradley MD Osteoarthritis (Primary Dx); Asthma; Epilepsy (HCC); Arthritis shoulder and knee; GERD (gastroesophageal reflux disease); Bipolar affective disorder (HCC); CTS (carpal tunnel syndrome) 08/07/2011 12:58 PM EDT - 08/07/2011 2:03 PM EDT Emergency [facility] [address] [place] [address] Alfei Perez MD Carpal tunnel syndrome of right wrist; Rotator cuff injury Discharge Disposition: Home or Self Care 07/10/2011 Telephone [facility] [address] [facility] [place] [address] Germán Bradley MD Other 07/02/2011 Telephone [address] [place] [address] Nelda Fritz, NIESHA Other (PA for celexa) 06/28/2011 9:51 AM EDT - 06/28/2011 11:59 PM EDT Hospital Encounter [facility] [address] [place] [address] Germán Bradley MD TMJ (dislocation of temporomandibular joint); Jaw pain; Dental decay Discharge Disposition: Home or Self Care 06/28/2011 9:20 AM EDT Office Visit [address] [place] [address] Germán Bradley MD Bipolar affective disorder (HCC); Anxiety; TMJ (dislocation of temporomandibular joint); Jaw pain; Dental decay 06/11/2011 Telephone [facility] [address] [facility] [place] [address] Marcela Ding MD Medication Refill 06/03/2011 8:09 PM EST - 06/03/2011 11:59 PM EST Hospital Encounter [facility] [place] [address] Bipolar affective disorder (HCC); Epilepsy (HCC) Discharge Disposition: Home or Self Care 06/03/2011 1:00 PM EST Office Visit [facility] [address] [place] [address] Germán Bradley MD Bipolar affective disorder (HCC); Asthma; Epilepsy (HCC) 05/18/2011 Refill [facility] [address] [place] [address] Germán Bradley MD Medication Refill 05/03/2011 Telephone [facility] [address] [place] [address] Nelda Fritz CMA Other 05/03/2011 10:50 AM EST Office Visit [place] [address] [place] [address] Germán Bradley MD Asthma (Primary Dx); Side pain; Abdominal wall pain; Bipolar affective disorder (HCC); Epilepsy (HCC) 04/17/2011 Refill [facility] [address] [place] [address] Germán Bradley MD Medication Refill 03/18/2011 Telephone [facility] [address] [place] [address] Cleopatra Duran 02/18/2011 2:20 PM EST - 02/18/2011 11:59 PM EST Hospital Encounter [facility] Physical [address] [place] [place] [address] Chyna Mathis, PT Discharge Disposition: Home or Self Care 02/11/2011 2:30 PM EDT - 02/11/2011 11:59 PM EDT Hospital Encounter [facility] Physical [address] [place] [place] [address] Chyna Mathis, PT Discharge Disposition: Home or Self Care 02/04/2011 2:24 PM EDT - 02/04/2011 11:59 PM EDT Hospital Encounter [facility] Physical Therapy [facility] [address] [place] [address] Chyna Mathis, [place] Discharge Disposition: Home or Self Care 01/11/2011 Telephone [facility] [place] [address] [place] [address] Marcela Ding MD Other 12/28/2010 Telephone [facility] [place] [address] [place] [address] Ipregan Lucy K Rectal Bleeding 12/19/2010 2:51 PM EDT - 12/19/2010 11:59 PM EDT Hospital Encounter [facility] PROCESSING [facility] [place] [address] Elevated glucose Discharge Disposition: Home or Self Care 12/19/2010 10:30 AM EDT Office Visit [place] [address] [place] [address] Germán Bradley MD Bipolar affective disorder (HCC); Epilepsy (HCC); Asthma; AR (allergic rhinitis); GERD (gastroesophageal reflux disease); Arthritis shoulder and knee; Elevated glucose 12/14/2010 Telephone [place] [address] [place] [address] Ipregan Lucy K Medication Refill 12/14/2010 Refill [place] [address] [place] [address] Germán Bradley MD Medication Refill 12/12/2010 1:22 PM EDT - 12/12/2010 2:55 PM EDT Emergency [facility] [address] [place] [address] Ty Griffiths DO Fibula fracture Discharge Disposition: Home or Self Care 12/08/2010 Telephone [place] [address] [place] [address] Inge Quinn, RMA Results 11/21/2010 8:29 PM EDT - 11/21/2010 11:59 PM EDT Hospital Encounter EDG LAB KELVIN PROCESSING [facility] [place] [address] Lipid screening; Epilepsy (HCC); Encounter for long-term (current) use of medications Discharge Disposition: Home or Self Care 11/21/2010 10:30 AM EDT Clinical Support [facility] [place] [address] [address] Oralia Cruz Sabine Bipolar affective disorder (HCC); Epilepsy (HCC); Lipid screening; Encounter for long-term (current) use of medications 11/09/2010 [address] [place] [address] Germán Bradley MD Medication Refill 07/31/2010 2:00 PM EDT Office Visit [facility] [place] [address] Germán Bradley MD Asthma; Bronchitis; Rotator cuff syndrome 07/30/2010 Telephone [facility] [address] [place] [address] Lucy Redman 05/02/2010 11:30 AM EST Office Visit [facility] [place] [address] Germán Bradley MD Epilepsy (HCC); Bipolar affective disorder (HCC); Asthma; COPD (chronic obstructive pulmonary disease) (HCC); GERD (gastroesophageal reflux disease); Osteoarthritis 04/30/2010 10:08 AM EST - 04/30/2010 11:59 PM EST Hospital Encounter EDG LAB KELVIN PROCESSING [facility] [place] [address] Marcela Ding MD Encounter for long-term (current) use of other medications; Epilep NOS w/o intr epil; Bipolar disorder NOS Discharge Disposition: Home or Self Care 04/30/2010 9:50 AM EST Clinical Support [facility] [place] [address] FrancoiseArabellaNellymarlon Reardon, RMA Epilepsy ([facility]); Bipolar affective disorder ([facility]) 2010 Telephone [facility] [address] [place] [address] Oralia Cruz Sabine, RMA Letter for School/Work ([place] [employer] form) 04/13/2010 Refill [facility] [address] [place] [address] Germán Bradley MD Medication Refill 03/17/2010 Refill [facility] [address] [place] [address] Germán Bradley MD Medication Refill 02/12/2010 Refill [facility] [address] [place] [address] Germán Bradley MD Medication Refill 01/16/2010 11:10 AM EDT Office Visit [facility] [address] [place] [address] Germán Bradley MD COPD (chronic obstructive pulmonary disease) ([facility]); Osteoarthritis of knee 12/21/2009 Refill [facility] [address] [place] [address] Marcela Ding MD Medication Refill 12/07/2009 Refill [facility] [address] [place] [address] Dustin Mcintyre MD Medication Refill 11/07/2009 7:59 PM EDT - 11/07/2009 11:59 PM EDT Hospital Encounter HST SUWT EDG Germán Bradley MD 11/07/2009 3:20 PM EDT Office Visit [facility] [address] [place] [address] Germán Bradley MD PUD (peptic ulcer disease) (Primary Dx); Bipolar affective disorder (HCC); Asthma; AR (allergic rhinitis) 11/04/2009 10:43 PM EDT - 11/05/2009 12:41 AM EDT Emergency HST GES MICHELLET Ty Griffiths, DO 10/12/2009 12:01 AM EDT - 10/26/2009 1:28 PM EDT Hospital Encounter HST PT Germán Odom MD 10/25/2009 9:30 AM EDT Office Visit [facility] [address] [place] [address] Germán Bradley MD AR (allergic rhinitis); GERD (gastroesophageal reflux disease); Rotator cuff syndrome; Bipolar affective disorder (HCC); Asthma; Epilepsy (HCC) 09/12/2009 12:01 AM EDT - 10/11/2009 11:59 PM EDT Hospital Encounter HST PT Marcela Villanueva MD Burke, Brennan C, MD 09/28/2009 Telephone [facility] [address] [place] [address] Francoise, Nelly Reardon, RMA Medication Problem 09/27/2009 Telephone [facility] [address] [facility] [place] [address] Veronica Freed MA Other 09/27/2009 1:20 PM EDT Office Visit [facility] [address] [place] [address] Germán Bradley MD Rotator cuff syndrome; AR (allergic rhinitis); GERD (gastroesophageal reflux disease) 09/14/2009 2:06 AM EDT - 09/14/2009 11:59 PM EDT Emergency HST GES GRTy Rodriguez, DO 08/24/2009 2:55 PM EDT - 09/11/2009 11:59 PM EDT Hospital Encounter HST PT Marcela Villanueva MD 09/05/2009 Telephone [facility] [address] [place] [address] Germán Bradley MD Results 09/05/2009 Telephone [facility] [address] [place] [address] Dustin Mcintyre MD Results 09/01/2009 12:01 AM EDT - 09/01/2009 11:59 PM EDT Hospital Encounter HST RADIOLOGY GRT Marcela Ding MD 08/26/2009 Telephone [facility] [address] [place] [address] Germán Bradley MD Results 08/24/2009 3:04 PM EDT - 08/24/2009 11:59 PM EDT Hospital Encounter HST RADIOLOGY GRT Marcela Ding MD 08/24/2009 2:30 PM EDT Office Visit [facility] [address] [place] [address] Marcela Ding MD Shoulder pain (Primary Dx) 08/15/2009 Refill [facility] [address] [place] [address] Nelda Fritz ACCOUNTS PAYABLE PROCESSOR Medication Refill 07/25/2009 5:37 PM EDT - 07/25/2009 11:59 PM EDT Hospital Encounter HST SUWT EDG Dustin Mcintyre MD 07/25/2009 3:00 PM EDT Office Visit [facility] [address] [place] [address] Germán Bradley MD Rotator cuff syndrome; Epilepsy (HCC); Encounter for long-term (current) use of other medications 06/26/2009 8:46 AM EDT - 06/26/2009 11:59 PM EDT Hospital Encounter HST RADIOLOGY GRT Wang Ospina 06/15/2009 Telephone [facility] [address] [place] [address] Germán Bradley MD Other 06/15/2009 2:00 PM EST Office Visit [facility] [address] [place] [address] Germán Bradley MD Shoulder pain; Bipolar affective disorder (HCC) 06/06/2009 Telephone [facility] [address] [place] [address] Nelda Fritz, ACCOUNTS PAYABLE PROCESSOR Seizures 05/30/2009 5:31 PM EST - 05/30/2009 11:59 PM EST Hospital Encounter HST EPIC CON UNK EDG Dustin Mcintyre MD 04/20/2009 Abstract [facility] [address] [facility] [place] [address] Amb, Test Milk Inspector Epilepsy ([facility]); Bipolar affective disorder ([facility]); Depression, major ([facility]); Asthma; COPD (chronic obstructive pulmonary disease) ([facility]); Hearing loss in left ear; GERD (gastroesophageal reflux disease) 02/14/2009 4:29 PM EST - 02/14/2009 11:59 PM EST Hospital Encounter HST EPIC CON UNK EDG Dustin Mcintyre MD 01/24/2009 7:06 PM EDT - 01/24/2009 7:58 PM EDT Emergency HST EPIC CON UNK GRT Roni Shaffer MD 11/11/2008 12:41 PM EDT - 11/11/2008 11:59 PM EDT Hospital Encounter HST LAB EDG Germán Bradley MD 09/19/2008 12:01 AM EDT - 09/19/2008 11:59 PM EDT Hospital Encounter HST RADIOLOGY GRT Germán Bradley MD 09/09/2008 1:51 PM EDT - 09/09/2008 11:59 PM EDT Hospital Encounter HST RADIOLOGY GRT Germán Bradley MD 08/08/2008 9:02 PM EDT - 08/08/2008 10:59 PM EDT Emergency HST EPIC CON UNK GRT Radha Lopez MD 08/04/2008 7:36 PM EDT - 08/04/2008 9:44 PM EDT Emergency HST EPIC CON UNK GRT Roni Shaffer MD 06/14/2008 4:29 PM EST - 06/14/2008 11:59 PM EST Hospital Encounter HST LAB EDG Dustin Mcintyre MD 02/27/2008 1:18 AM EST - 02/27/2008 1:35 AM EST Emergency HST EPIC CON UNK GRT Ty Griffiths, DO 02/22/2008 9:36 PM EST - 02/22/2008 10:16 PM EST Emergency HST EPIC CON UNK GRT Kalyn Trinh III, MD 02/11/2008 1:19 PM EDT - 02/11/2008 3:23 PM EDT Emergency HST EPIC CON UNK GRT Ty Griffiths, DO 01/26/2008 7:15 PM EDT - 01/26/2008 11:59 PM EDT Hospital Encounter HST LAB EDG Dustin Mcintyre MD 11/20/2007 8:14 AM EDT - 01/06/2008 11:59 PM EDT Hospital Encounter HST EPIC CON UNK GRT Finesse Moore MD 01/01/2008 9:17 PM EDT - 01/01/2008 11:59 PM EDT Hospital Encounter HST LAB EDG Dustin Mcintyre MD 11/16/2007 1:54 PM EDT - 11/16/2007 3:31 PM EDT Emergency HST EPIC CON UNK GRT Karmen Ivy MD 11/09/2007 3:34 PM EDT - 11/11/2007 3:00 PM EDT Hospital Encounter HST [facility] Generic, Historical Provider 11/08/2007 4:05 AM EDT - 11/09/2007 3:30 PM EDT Hospital Encounter HST [facility] Generic, Historical Provider 10/05/2007 8:31 PM EDT - 10/05/2007 11:59 PM EDT Hospital Encounter HST LAB WONGG Germán Bradley MD 08/19/2007 8:11 PM EDT - 08/19/2007 11:59 PM EDT Hospital Encounter HST LAB EDG Dustin Mcintyre MD 07/26/2007 8:20 PM EDT - 07/26/2007 8:42 PM EDT Emergency HST EPIC CON UNK GRT Pino Maxwell MD 07/20/2007 4:27 PM EDT - 07/20/2007 11:59 PM EDT Hospital Encounter HST LAB EDG Dustin Mcintyre MD 04/20/2007 7:09 PM EST - 04/20/2007 11:59 PM EST Hospital Encounter HST LAB EDG Dustin Mcintyre MD 04/02/2007 3:09 PM EST - 04/02/2007 4:32 PM EST Emergency HST EPIC CON UNK GRT David Palma MD 03/14/2007 3:03 PM EST - 03/14/2007 3:27 PM EST Emergency HST EPIC CON UNK GRT Roshan Sanchez MD 01/03/2007 9:04 PM EDT - 01/03/2007 9:40 PM EDT Emergency HST EPIC CON UNK GRT Roshan Sanchez MD 12/01/2006 7:55 PM EDT - 12/01/2006 11:59 PM EDT Hospital Encounter HST LAB EDG Dustin Mcintyre MD 06/23/2006 7:42 PM EDT - 06/23/2006 11:59 PM EDT Hospital Encounter HST LAB EDG Dustin Mcintyre MD 12/31/2005 6:31 PM EDT - 12/31/2005 8:58 PM EDT Emergency HST EPIC CON UNK GRT Robbie Eldridge MD 11/08/2005 6:44 PM EDT - 11/08/2005 7:46 PM EDT Emergency HST EPIC CON UNK GRT Elina Hall MD 01/11/2005 3:18 PM EDT - 01/11/2005 11:59 PM EDT Hospital Encounter HST LAB GRT Generic, Historical Provider 08/09/2004 4:18 PM EDT - 08/09/2004 11:59 PM EDT Hospital Encounter HST LAB EDG Mehrdad Paiz DO 07/03/2004 12:57 AM EST - 07/10/2004 1:00 PM EST Hospital Encounter [facility]ST [facility] Generic, Historical Provider 06/13/2004 9:46 PM EST - 06/13/2004 10:40 PM EST Emergency HST EPIC CON UNK GRT Jerson Go MD 05/02/2004 1:51 PM EST - 05/02/2004 11:59 PM EST Hospital Encounter HST RADIOLOGY GRT Dustin Mcintyre MD 02/14/2004 3:12 PM EST - 02/14/2004 11:59 PM EST Hospital Encounter HST LAB EDG Dustin Mcintyre MD 09/26/2003 11:53 AM EDT - 09/26/2003 11:59 PM EDT Hospital Encounter HST LAB GRT Dustin Mcintyre MD 09/17/2003 3:15 PM EDT - 09/17/2003 4:00 PM EDT Emergency HST EPIC CON UNK GRT Oswald Licea MD 09/16/2003 4:04 PM EDT - 09/16/2003 11:59 PM EDT Hospital Encounter HST LAB GRT Tomy Alfie, DO 09/13/2003 12:04 PM EDT - 09/13/2003 11:59 PM EDT Hospital Encounter HST LAB GRT TomyAlfie, DO 06/10/2003 11:51 PM EST - 06/11/2003 12:05 AM EST Emergency HST EPIC CON UNK GRT Rasta Oneal MD 06/10/2003 2:59 PM EST - 06/10/2003 3:55 PM EST Emergency HST EPIC CON UNK GRT Augustine Baldwin MD 04/23/2003 12:43 PM EST - 04/23/2003 2:00 PM EST Emergency HST EPIC CON UNK GRT Donavan Ramirez MD 04/21/2003 1:56 PM EST - 04/21/2003 2:45 PM EST Emergency HST EPIC CON UNK GRT Charlie Knapp MD 02/25/2003 4:51 PM EST - 02/25/2003 11:59 PM EST Hospital Encounter HST RADIOLOGY GRT Dustin Mcintyre MD 01/24/2003 4:04 PM EDT - 01/24/2003 11:59 PM EDT Hospital Encounter HST LAB EDG Dustin Mcintyre MD 01/13/2003 10:32 AM EDT - 01/13/2003 11:59 PM EDT Hospital Encounter HST RADIOLOGY GRT Dustin Mcintyre MD 10/14/2002 3:23 PM EDT - 10/14/2002 4:58 PM EDT Emergency HST EPIC CON UNK GRT Oswald Licea MD 10/11/2002 3:55 PM EDT - 10/11/2002 5:25 PM EDT Emergency HST EPIC CON UNK GRT Wang Jerome MD 09/19/2002 9:32 PM EDT - 09/19/2002 9:45 PM EDT Emergency HST MAJOR ER GRT Rasta Oneal MD 08/17/2002 6:26 PM EDT - 08/17/2002 7:20 PM EDT Emergency HST EPIC CON UNK GRT Rasta Oneal MD 07/03/2002 2:03 PM EST - 07/03/2002 2:15 PM EST Emergency HST EPIC CON UNK GRT Donavan Miller MD 06/03/2002 1:31 PM EST - 06/03/2002 11:59 PM EST Hospital Encounter HST LAB EDG Dustin Mcintyre MD 06/01/2002 7:46 PM EST - 06/01/2002 8:00 PM EST Emergency HST EPIC CON UNK GRT Oswald Licea MD 05/14/2002 9:17 AM EST - 05/14/2002 11:59 PM EST Hospital Encounter HST RADIOLOGY GRT Koffi Cunningham 05/11/2002 8:08 PM EST - 05/11/2002 9:45 PM EST Emergency HST EPIC CON UNK GRT David Palma MD 05/10/2002 1:48 PM EST - 05/10/2002 11:59 PM EST Hospital Encounter HST RADIOLOGY GRT Koffi Cunningham 05/08/2002 8:23 PM EST - 05/08/2002 9:55 PM EST Emergency HST EPIC CON UNK GRT Ty Griffiths DO 05/07/2002 7:12 PM EST - 05/07/2002 11:59 PM EST Hospital Encounter HST LAB EDG Dustin Mcintyre MD 04/12/2002 9:48 PM EST - 04/12/2002 10:10 PM EST Emergency HST EPIC CON UNK GRT Charlie Knapp MD 03/25/2002 2:04 PM EST - 03/25/2002 2:50 PM EST Emergency HST EPIC CON UNK GRT Donavan Miller MD 03/22/2002 4:46 PM EST - 03/22/2002 5:15 PM EST Emergency HST EPIC CON UNK GRT Oswald Licea MD 03/15/2002 5:03 PM EST - 03/15/2002 11:59 PM EST Hospital Encounter HST LAB EDG VarinderAnjuyDO 02/07/2002 1:28 PM EST - 02/07/2002 2:12 PM EST Emergency HST EPIC CON UNK GRT Jerson Go MD 01/27/2002 6:03 PM EDT - 01/27/2002 7:10 PM EDT Emergency HST EPIC CON UNK GRT Wang Jerome MD 01/08/2002 1:11 PM EDT - 01/08/2002 1:12 PM EDT Emergency HST EPIC CON UNK GRT Wang Jerome MD 12/09/2001 11:25 AM EDT - 12/09/2001 12:25 PM EDT Emergency HST EPIC CON UNK GRT Wang Jerome MD 11/27/2001 3:49 PM EDT - 11/27/2001 11:59 PM EDT Hospital Encounter HST LAB EDG Koffi Cunningham 10/27/2001 5:23 PM EDT - 10/27/2001 11:59 PM EDT Hospital Encounter HST LAB EDG Dustin Mcintyre MD 09/24/2001 7:43 PM EDT - 09/24/2001 8:10 PM EDT Emergency HST EPIC CON UNK GRT Jerson Go MD 08/25/2001 9:05 AM EDT - 08/25/2001 11:59 PM EDT Hospital Encounter HST LAB EDG Dustin Mcintyre MD 07/20/2001 3:19 PM EDT - 07/20/2001 11:59 PM EDT Hospital Encounter HST LAB EDG Dustin Mcintyre MD 07/20/2001 2:33 PM EDT - 07/20/2001 11:59 PM EDT Hospital Encounter HST RADIOLOGY GRT Dustin Mcintyre MD 03/17/2001 3:34 PM EST - 03/17/2001 11:59 PM EST Hospital Encounter HST LAB EDG Dustin Mcintyre MD 02/04/2001 12:11 AM EDT - 02/09/2001 11:28 AM EST Hospital Encounter HST BH2 Washington Mathews MD 01/14/2001 8:55 PM EDT - 01/14/2001 10:10 PM EDT Emergency HST EPIC CON UNK GRT Ty Blake, 01/05/2001 4:27 PM EDT - 01/05/2001 11:59 PM EDT Hospital Encounter HST LAB EDG Dustin Mcintyre MD 12/26/2000 3:25 PM EDT - 12/26/2000 4:10 PM EDT Emergency HST EPIC CON UNK GRT David Palma MD 12/17/2000 4:52 PM EDT - 12/17/2000 11:59 PM EDT Hospital Encounter HST LAB EDG Dustin Mcintyre MD 11/25/2000 6:18 PM EDT - 11/25/2000 8:00 PM EDT Emergency HST EPIC CON UNK GRT Oswald Licea MD 11/11/2000 4:35 PM EDT - 11/11/2000 11:59 PM EDT Hospital Encounter HST LAB EDG Dustin Mcintyre MD 10/08/2000 8:47 PM EDT - 10/08/2000 9:50 PM EDT Emergency HST EPIC CON UNK GRT Karmen Ivy MD 09/26/2000 8:31 AM EDT - 09/26/2000 11:59 PM EDT Hospital Encounter HST RADIOLOGY GRT Kasi Lam MD 09/17/2000 9:23 PM EDT - 09/17/2000 9:52 PM EDT Emergency HST EPIC CON UNK GRT Ty Blake, 08/22/2000 10:36 PM EDT - 08/22/2000 11:30 PM EDT Emergency HST EPIC CON UNK GRT Ty Blake DO 08/07/2000 11:39 AM EDT - 08/07/2000 11:59 PM EDT Hospital Encounter HST LAB EDG Dustin Mcintyre MD 08/04/2000 7:32 PM EDT - 08/04/2000 8:15 PM EDT Emergency HST EPIC CON UNK GRT Kasi Plummer MD 07/01/2000 10:16 AM EST - 07/01/2000 11:59 PM EST Hospital Encounter HST LAB EDG Dustin Mcintyre MD 06/16/2000 1:40 PM EST - 06/16/2000 11:59 PM EST Hospital Encounter HST LAB EDG Koffi Cunningham 04/20/2000 6:14 PM EST - 04/20/2000 7:00 PM EST Emergency HST EPIC CON UNK GRT Ty Griffiths DO 03/24/2000 3:08 PM EST - 03/24/2000 4:15 PM EST Emergency HST EPIC CON UNK GRT David Palma MD 12/01/1999 4:22 PM EDT - 12/01/1999 5:40 PM EDT Emergency HST EPIC CON UNK GRT Oswald Licea MD 02/02/1999 8:09 AM EDT - 02/02/1999 11:59 PM EDT Hospital Encounter HST RADIOLOGY GRT Kasi Lam MD 01/31/1999 10:54 AM EDT - 01/31/1999 11:59 PM EDT [facility] 01/25/1999 5:20 PM EDT - 01/25/1999 11:59 PM EDT Hospital Encounter HST LAB EDG Dustin Mcintyre MD 12/26/1998 3:57 PM EDT - 12/26/1998 11:59 PM EDT Hospital Encounter HST LAB EDG Koffi Cunningham 11/20/1998 8:41 AM EDT - 11/20/1998 11:59 PM EDT Hospital Encounter HST GC SPEC [facility] Hi Andrade MD 05/12/1998 2:11 PM EST - 05/12/1998 3:45 PM EST Emergency HST MAJOR ER EDG Adam Hernandez 02/15/1998 6:47 PM EST - 02/15/1998 7:50 PM EST Emergency HST EPIC CON UNK GRT Augustine Baldwin MD 01/18/1998 5:57 PM EDT - 01/18/1998 11:59 PM EDT Hospital Encounter HST LAB EDG Koffi Cunningham 11/02/1997 10:51 AM EDT - 11/02/1997 11:59 PM EDT Hospital Encounter HST EPIC CON UNK EDG [facility] 05/26/1997 6:49 PM EST - 05/26/1997 11:59 PM EST Emergency HST MAJOR ER EDG Ty Griffiths DO 12/26/1996 7:54 PM EDT - 12/26/1996 11:59 PM EDT Hospital En[facility] 10/18/1996 5:34 PM EDT - 10/18/1996 11:59 PM EDT Emergency HST EPIC CON UNK EDG Augustine Baldwin MD 10/11/1996 10:10 AM EDT - 10/11/1996 12:10 PM EDT Hospital Encounter HST Jaime Perez MD 03/13/1996 6:17 PM EST - 03/13/1996 11:59 PM EST Hospital Encounter [facility] 01/21/1996 7:05 PM EDT - 01/21/1996 11:59 PM EDT Hospital Encounter HST EPIC CON UNK COV [facility] 01/01/1996 8:11 PM EDT - 01/06/1996 2:05 PM EDT Hospital Encounter HST BH2 Rosa Clark MD 12/26/1995 8:21 AM EDT - 12/26/1995 11:59 PM EDT Hospital Encounter [facility]ST [facility]K [facility] 10/26/1995 9:59 PM EDT - 10/30/1995 1:44 PM EDT Hospital Encounter HST BH2 Wang Rosales MD [place], [place] 10/12/1995 7:54 PM EDT - 10/12/1995 11:59 PM EDT Hospital Encounter HST EPIC CON UNK [facility] 10/04/1995 9:50 PM EDT - 10/07/1995 12:05 PM EDT Hospital Encounter HST BH2 Wang Rosales MD [place], [place] L 07/07/1995 7:14 PM EST - 07/07/1995 11:59 PM EST Hospital Encounter HST EPIC CON UNK [facility] Allergies Active Allergy Reactions Criticality Noted Date Comments Fluoxetine Other (See Comments) 04/20/2009 I do stuff I don't want to do Hymenoptera Allergenic Extract Swelling High 04/05/2012 Thorazine Other (See Comments) 04/05/2012 I do stuff I don't want to do Sulfamethoxazole-Trimet hoprim 01/15/2013 felt like I was in outer space Ammonium Lactate Rash 06/17/2014 Medications meloxicam (MOBIC) 15 mg Oral TabletIndications: Generalized osteoarthritis of multiple sites Take 1 Tab by mouth daily as needed (arthritis pain). 90 Tab 1 8 Active atorvastatin (LIPITOR) 40 mg Oral TabletIndications: Hyperlipidemia with target LDL less than 100 Take 1 Tab by mouth daily. For cholesterol, heart 90 Tab 1 9 Active escitalopram oxalate (LEXAPRO) 10 mg Oral TabletIndications: Impulse control disorder,JB (generalized anxiety disorder) TAKE 1 TABLET BY MOUTH ONCE DAILY FOR MOODS 30 Tab 5 9 Active esomeprazole (NEXIUM) 20 mg Oral Capsule, Delayed Release(E.C.)Indic ations:Gastroesoph ageal reflux disease without esophagitis Take 1 Cap by mouth daily. For acid reflux 90 Cap 1 9 Active fluticasone (FLONASE) 50 mcg/actuation Nasl Lott, SuspensionIndicati ons:Chronic seasonal allergic rhinitis due to pollen 2 Sprays by Nasal route daily. For allergies 3 Bottle 1 9 Active fluticasone-vilant armando (BREO ELLIPTA) 100-25 mcg/dose Inhl Disk with DeviceIndications: COPD, mild (HCC) Inhale 1 Puff into the lungs daily. For breathing 180 Each 1 9 Active QUEtiapine (SEROQUEL) 50 mg Oral TabletIndications: Impulse control disorder,JB (generalized anxiety disorder) TAKE 1 TABLET BY MOUTH NIGHTLY FOR SLEEP AND MOODS 30 Tab 5 9 Active rOPINIRole (REQUIP) 1 mg Oral TabletIndications: Restless leg syndrome TAKE 1 TABLET BY MOUTH ONCE DAILY IN THE EVENING FOR RESTLESS LEGS 30 Tab 5 9 Active ibuprofen (ADVIL;MOTRIN) 800 mg Oral TabletIndications: Nonintractable headache, unspecified chronicity pattern, unspecified headache type Take 1 Tab by mouth 3 times daily. 30 Tab 1 9 Active phenytoin (DILANTIN) 200 mg Oral CapsuleIndications :Other epilepsy without status epilepticus, not intractable (HCC) Take 1 Cap by mouth 2 times daily for 60 days. 180 Cap 1 9 Active busPIRone (BUSPAR) 30 mg Oral TabletIndications: Impulse control disorder,JB (generalized anxiety disorder) TAKE 1 TABLET BY MOUTH TWICE DAILY NEEDED FOR ANXIETY 180 Tab 9 Active Active Problems Patient Care Coordination No te Formatting of this note migh t be different from the original. Pt needs Ming per [facility] Problem Noted Date Diagnosed Date Recurrent major depressive disorder, in full rem ission 05/06/2017 Assessment & Plan (06/01/2018 10:01 AM EST): Doing well. Generalized osteoarthritis of multiple sites Bilateral carpal tunnel syndrome 05/16/2016 COPD, mild 04/01/2016 Assessment & Plan (06/01/2018 7:41 AM EST): Doing well. By hx without significant sx. Assessment & Plan (05/06/2017 2:49 PM EST): Stable doing well Epilepsy without status epilepticus 11/16/2015 Assessment & Plan (06/01/2018 10:00 AM EST): Stable and doing well with no additional sz No sz for the past 4 years by hx. Assessment & Plan (05/06/2017 2:49 PM EST): Stable and doing well with no sz for 3 year Chronic seasonal allergic rhinitis due to pollen 11/16/2015 Cigarette nicotine dependence without complicati on 2015 Assessment & Plan (06/01/2018 7:40 AM EST): Counseled on the need to be smoke free Generalized anxiety disorder 04/20/2015 Hyperlipidemia with target LDL less than 100 10/2015 Assessment & Plan (06/01/2018 10:00 AM EST): Doing well on diet +/- Taking Lipitor. Impingement syndrome, shoulder 04/20/2015 Restless leg syndrome 10/25/2013 Assessment & Plan (05/06/2017 2:49 PM EST): Not on any meds but did well with requip in the past. FHx: prostate cancer 05/31/2013 FHx: lung cancer 05/31/2013 GERD (gastroesophageal reflux disease) Assessment & Plan (06/01/2018 7:43 AM EST): Doing well on meds. Assessment & Plan (05/06/2017 2:49 PM EST): Controlled on meds Impulse control disorder Resolved Problems Problem Noted Date Diagnosed Date Resolved Date Nicotine dependence 10/13/2013 04/29/19 17 JB (generalized anxiety disorder) 11/02/2012 04/20/2015 Anxiety 06/28/2011 10/09/2012 Depression, major 04/20/2009 11/07/2009 Asthma 05/31/2013 COPD (chronic obstructive pulmonary disease) 04/29/2013 Hearing loss in left ear Immunizations Immunization Administration Dates Next Due Influenza Intradermal 12/16/2012 Influenza Vaccine Quadrivalent 01/07/2017,2015,02/24/2015 Influenza Vaccine, Unspecified Formulation 01/12 Pneumococcal Polysaccharide 23 Valent 04/29/2016 Td (adult), preservative free 05/26/2017 Family History 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 Relation Name Comments Hearing Loss Brother Prostate Cancer Father Seizures Father Cancer Mother lung, liver, br ain Anesth Problems Neg Hx Relation Name Status Comments Brother Father Alive Mother 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 Smoking Status as of 09/21/2024 Tobacco Use Types Packs/Day Years Used Date Smoking Tobacco: Never Assessed PHQ-2 Answer Date Recorded PHQ-2 Score 0 09/04/2018 Sex and Gender Information Value Date Recorded Sex Assigned at Not on file Legal Sex Male 2:28 AM EDT Gender Identity Not on file Sexual Orientation Not on file Last Filed Vital Signs Vital Sign Reading Time Taken Comments Blood Pressure 130/76 06/01/2018 9:27 AM EST Pulse 75 06/01/2018 9:27 AM EST Temperature 35.8 C (96.5 F) 06/01/2018 9:27 AM EST Respiratory Rate 16 07/07/2017 8:59 PM EDT Oxygen Saturation 96% 06/01/2018 9:27 AM EST Inhaled Oxygen Concentration - - Weight 69.1 kg (152 lb 6.4 oz) 06/01/2018 9:27 A M EST Height 167.6 cm (5' 6 ) 06/01/2018 9:27 AM EST Body Mass Index 24.6 06/01/2018 9:27 AM EST Plan of Treatment Not on file Medical Devices Implanted Type Area Recreation Therapy Aide Device Identifier Shelf Expiration Date Model / Serial / Lot Roberts Lupine Br W/Dual Suture Orthocord - [id number] Implanted:Qty : 1 on 01/18/2013 by Crow Love MD at [facility] Left: Shoulder J&J:ETHICON:MITE K PRDT [id number] 06/12/2015 [id number] / / [id number] Roberts Lupine Br W/Dual Suture Orthocord - [id number] Implanted:Qty : 1 on 01/18/2013 by Crow Love MD at [facility] Left: Shoulder J&J:ETHICON:MITE K PRDT [id number] 06/11/2014 [id number] / / [id number] Roberts Advance Healix 5.5 Br - [id number] Implanted:Qty : 1 on 06/20/2015 by [facility] at [facility] Right: Shoulder J&J:ETHICON:MITE K PRDT 05/14/2017 [id number] / / [id number] Procedures Procedure Name Priority Date/Time Associated Diagnosis Comments ACUTE HEPATITIS PANEL Routine 06/01/2018 10:14 AM EST Elevated liver function tests VITAMIN B12/ FOLIC ACID Routine 06/01/2018 10:14 AM EST Concentration deficit TSH REFLEX TO FT4 Routine 06/01/2018 10:14 AM EST Concentration deficit Malaise and fatigue CBC WITH DIFF Routine 06/01/2018 10:14 AM EST Concentration deficit COMPREHENSIVE METABOLIC PANEL Routine 06/01/2018 10:14 AM EST Concentration deficit PHENYTOIN LEVEL TOTAL Routine 06/01/2018 10:14 AM EST Other epilepsy without status epilepticus, not intractable (HCC) POCT URINALYSIS DIPSTICK Routine 06/01/2018 9:40 AM EST Left inguinal pain SCANNED LABS 03/30/2018 3:05 PM EST SCANNED RADIOLOGY REPORT 03/27/2018 3:12 PM EST SCANNED LABS 03/27/2018 3:11 PM EST SCANNED LABS 03/27/2018 3:06 PM EST LIPID PANEL REFLEX Routine 12/05/2017 9:03 AM EDT Hyperlipidemia with target LDL less than 100 COMPREHENSIVE METABOLIC PANEL Routine 12/05/2017 9:03 AM EDT Restless leg syndrome Chronic seasonal allergic rhinitis due to pollen Hyperlipidemia with target LDL less than 100 CBC WITH DIFF Routine 12/05/2017 9:03 AM EDT Restless leg syndrome Chronic seasonal allergic rhinitis due to pollen Hyperlipidemia with target LDL less than 100 PHENYTOIN LEVEL TOTAL Routine 12/05/2017 9:03 AM EDT Other epilepsy without status epilepticus, not intractable (HCC) IP CONSULT TO SOCIAL WORK Routine 07/01/2017 6:20 AM EDT DRUGS OF ABUSE, SCREEN ONLY, URINE STAT 06/30/2017 10:59 PM EDT SALICYLATE LEVEL Add-On 06/30/2017 10:18 PM EDT ACETAMINOPHEN LEVEL Add-On 06/30/2017 10:18 PM EDT BASIC METABOLIC PANEL Add-On 06/30/2017 10:18 PM EDT CBC WITH DIFF Add-On 06/30/2017 10:18 PM EDT EXTRA GOLD SST Routine 06/30/2017 10:18 PM EDT EXTRA LAVENDER Routine 06/30/2017 10:18 PM EDT EXTRA LIGHT BLUE Routine 06/30/2017 10:18 PM EDT EXTRA TUBES PANEL Routine 06/30/2017 10:18 PM EDT ALCOHOL MEDICAL STAT 06/30/2017 10:18 PM EDT XR WRIST RIGHT PA LATERAL AND OBLIQUE MELINDA 05/26/2017 9:46 PM EST XR HAND RIGHT PA LATERAL AND OBLIQUE MELINDA 05/26/2017 9:45 PM EST PHENYTOIN LEVEL TOTAL Routine 05/06/2017 2:57 PM EST Other epilepsy without status epilepticus, not intractable (HCC) LIPID PANEL REFLEX Routine 05/06/2017 2:57 PM EST Well adult exam COMPREHENSIVE METABOLIC PANEL Routine 05/06/2017 2:57 PM EST Well adult exam CBC WITH DIFF Routine 05/06/2017 2:57 PM EST Well adult exam EXTRA LIGHT BLUE Routine 04/16/2017 1:27 AM EST EXTRA TUBES PANEL Routine 04/16/2017 1:27 AM EST ALCOHOL MEDICAL STAT 04/16/2017 1:27 AM EST SALICYLATE LEVEL STAT 04/16/2017 1:27 AM EST ACETAMINOPHEN LEVEL STAT 04/16/2017 1:27 AM EST COMPREHENSIVE METABOLIC PANEL STAT 04/16/2017 1:27 AM EST CBC WITH DIFF STAT 04/16/2017 1:27 AM EST DRUGS OF ABUSE, SCREEN ONLY, URINE Routine 04/16/2017 1:05 AM EST URINALYSIS STAT 04/16/2017 1:05 AM EST EXTRA DORADO URINE CX STAT 04/16/2017 1:05 AM EST LDL, CALCULATED Routine 01/07/2017 10:30 AM EDT DIFFERENTIAL Routine 01/07/2017 10:30 AM EDT PHENYTOIN LEVEL TOTAL Routine 01/07/2017 10:30 AM EDT Other epilepsy without status epilepticus, not intractable (HCC) LIPID PANEL REFLEX Routine 01/07/2017 10:30 AM EDT Hyperlipidemia with target LDL less than 100 COMPREHENSIVE METABOLIC PANEL Routine 01/07/2017 10:30 AM EDT Hyperlipidemia with target LDL less than 100 CBC WITH DIFF Routine 01/07/2017 10:30 AM EDT Other epilepsy without status epilepticus, not intractable (HCC) XR KNEE RIGHT AP LAT INT EXT OBLIQUES AND SUNRISE Routine 08/07/2016 1:54 PM EDT Acute pain of right knee Right knee injury, initial encounter CARPAL TUNNEL RELEASE BILATERAL 06/11/2016 7:43 AM EST Left carpal tunnel syndrome Right carpal tunnel syndrome Special Needs FAX [id number]; CHG SITE FROM LEFT PER SEPIDEH 06/10 PULMONARY FUNCTION TEST Routine 05/06/2016 8:51 AM EST COPD, mild (HCC) POCT URINALYSIS DIPSTICK Routine 04/29/2016 3:09 PM EST Well adult exam POCT EKG Routine 04/29/2016 2:23 PM EST Well adult exam LDL, CALCULATED Routine 04/01/2016 4:37 PM EST PHENYTOIN LEVEL TOTAL Routine 04/01/2016 4:37 PM EST Memory loss LIPID PANEL REFLEX Routine 04/01/2016 4:37 PM EST Hyperlipidemia with target LDL less than 100 COMPREHENSIVE METABOLIC PANEL Routine 04/01/2016 4:37 PM EST Hyperlipidemia with target LDL less than 100 SYPHILIS SCREEN WITH REFLEX RPR QUANT Routine 04/01/2016 4:37 PM EST Memory loss VITAMIN B12/ FOLIC ACID Routine 04/01/2016 4:37 PM EST Memory loss URINALYSIS STAT 11/27/2015 5:55 PM EDT XR LUMBAR SPINE AP AND LATERAL MELINDA 11/27/2015 5:54 PM EDT URINALYSIS STAT 11/20/2015 1:58 PM EDT LDL, CALCULATED Routine 11/16/2015 3:29 PM EDT DIFFERENTIAL Routine 11/16/2015 3:29 PM EDT LIPID PANEL REFLEX Routine 11/16/2015 3:29 PM EDT Hyperlipidemia with target LDL less than 100 COMPREHENSIVE METABOLIC PANEL Routine 11/16/2015 3:29 PM EDT Hyperlipidemia with target LDL less than 100 CBC WITH DIFF Routine 11/16/2015 3:29 PM EDT Hyperlipidemia with target LDL less than 100 PHENYTOIN LEVEL TOTAL Routine 11/16/2015 3:29 PM EDT Other epilepsy without status epilepticus, not intractable (HCC) VA US LOWER EXTREMITY VENOUS LEFT STAT 06/23/2015 6:16 PM EST SCANNED RHYTHM STRIPS 06/22/2015 11:55 PM EST SHOULDER ARTHROSCOPY SUBACROMIAL DECOMPRESSION /FULL MILLY 06/20/2015 7:56 AM EST Impingement syndrome of right shoulder Special Needs FAX PERIPHERAL BLOCK Routine 06/20/2015 7:47 AM EST POCT EKG Routine 2015 10:09 AM EST Well adult LDL DIRECT Routine 04/20/2015 9:44 AM EST DIFFERENTIAL Routine 04/20/2015 9:44 AM EST CBC WITH DIFF Routine 04/20/2015 9:44 AM EST Hyperlipidemia with target LDL less than 100 LIPID PANEL REFLEX Routine 04/20/2015 9:44 AM EST Hyperlipidemia with target LDL less than 100 COMPREHENSIVE METABOLIC PANEL Routine 04/20/2015 9:44 AM EST Hyperlipidemia with target LDL less than 100 PHENYTOIN LEVEL TOTAL Routine 04/20/2015 9:44 AM EST Other epilepsy without status epilepticus, not intractable (HCC) MRI SHOULDER RIGHT WO CONTRAST Routine 03/22/2015 11:56 AM EST Right shoulder pain LDL DIRECT Routine 11/04/2014 10:36 AM EDT CBC Routine 11/04/2014 10:36 AM EDT Other epilepsy without status epilepticus, not intractable (HCC) PHENYTOIN LEVEL TOTAL Routine 11/04/2014 10:36 AM EDT Other epilepsy without status epilepticus, not intractable (HCC) LIPID PANEL REFLEX Routine 11/04/2014 10:36 AM EDT Hyperlipidemia LDL goal < 100 COMPREHENSIVE METABOLIC PANEL Routine 11/04/2014 10:36 AM EDT Other epilepsy without status epilepticus, not intractable (HCC) SCANNED PATHOLOGY REPORT 09/20/2014 5:07 PM EDT SCANNED PATHOLOGY REPORT 06/24/2014 9:32 AM EDT SCANNED RHYTHM STRIPS 06/23/2014 2:56 PM EDT KNEE ARTHROSCOPY MENISCECTOMY/REPAIR (ALSO COVERS ARTHROSCOPIC INCISION AND DRAINAGE/DEBRIDEMENT) 06/21/2014 7:53 AM EDT Tear of medial cartilage or meniscus of knee, current Special Needs FAX CPT;42545 [id number] POCT EKG Routine 06/08/2014 10:16 AM EST Pre-op exam BASIC METABOLIC PANEL Routine 05/20/2014 11:44 AM EST Hypernatremia Pre-op testing XR CHEST PA AND LATERAL MELINDA 05/18/2014 11:55 AM EST LDL DIRECT Routine 2014 11:40 AM EST PHENYTOIN LEVEL TOTAL Routine 2014 11:40 AM EST Epilepsy (HCC) LIPID PANEL REFLEX Routine 2014 11:40 AM EST Healthcare maintenance COMPREHENSIVE METABOLIC PANEL Routine 2014 11:40 AM EST Healthcare maintenance CBC Routine 2014 11:40 AM EST Healthcare maintenance POCT OCCULT BLOOD STOOL Routine 2014 11:02 AM EST Healthcare maintenance SCANNED LABS 03/16/2014 3:38 PM EST MISCELLANEOUS LAB Callback 03/08/2014 11:28 AM EST Allergic rhinitis, cause unspecified Epilepsy (HCC) Hearing loss in left ear GERD (gastroesophageal reflux disease) JB (generalized anxiety disorder) FHx: prostate cancer FHx: lung cancer Nicotine dependence Restless leg syndrome SCANNED PRE/POST PROCEDURES 02/08/2014 1:26 AM EDT SCANNED ANESTHESIA FORMS 02/08/2014 1:26 AM EDT SCANNED RHYTHM STRIPS 02/08/2014 1:26 AM EDT PATHOLOGY TISSUE REPORT Routine 02/04/2014 8:20 AM EDT ANAEROBIC CULTURE (NO STAIN) Routine 02/04/2014 8:00 AM EDT FUNGUS CULTURE-OTHER Routine 02/04/2014 8:00 AM EDT WOUND CULTURE (STAIN INCLUDED) Routine 02/04/2014 8:00 AM EDT FUNCTIONAL ENDOSCOPIC SINUS SURGERY/SINOSCOPY 02/04/2014 7:48 AM EDT Chronic maxillary sinusitis Special Needs NICOL CPT; 17625/39132 HEPATIC FUNCTION PANEL Routine 4 11:31 AM EDT Esophageal reflux Dyspepsia and other specified disorders of function of stomach Dysphagia, unspecified(787.20) XR WRIST LEFT PA LATERAL AND OBLIQUE MELINDA 11/12/2013 7:02 PM EDT MRI KNEE RIGHT WO CONTRAST Routine 11/01/2013 10:33 AM EDT Right knee pain Recurrent right knee instability ACUTE HEPATITIS PANEL Routine 10/25/2013 10:12 AM EDT Hyperlipidemia LDL goal < 100 Epilepsy (HCC) Screening PSA (prostate specific antigen) Family history of prostate cancer FHx: prostate cancer LDL DIRECT Routine 10/25/2013 10:12 AM EDT PROSTATE SPECIFIC ANTIGEN (SCREENING) Routine 10/25/2013 10:12 AM EDT Screening PSA (prostate specific antigen) Family history of prostate cancer FHx: prostate cancer PHENYTOIN LEVEL TOTAL Routine 10/25/2013 10:12 AM EDT Epilepsy (HCC) LIPID PANEL REFLEX Routine 10/25/2013 10:12 AM EDT Hyperlipidemia LDL goal < 100 COMPREHENSIVE METABOLIC PANEL Routine 10/25/2013 10:12 AM EDT Hyperlipidemia LDL goal < 100 MRI BRAIN W WO CONTRAST Routine 07/23/2013 9:50 AM EDT Sensorineural hearing loss, asymmetrical Abnormal auditory perception, unspecified XR CHEST PA AND LATERAL Routine 05/31/2013 10:07 AM EST COPD (chronic obstructive pulmonary disease) (HCC) FHx: lung cancer Cough LDL DIRECT Routine 05/31/2013 9:38 AM EST DIFFERENTIAL Routine 05/31/2013 9:38 AM EST PHENYTOIN LEVEL TOTAL Routine 05/31/2013 9:38 AM EST Well adult exam Epilepsy (HCC) LIPID PANEL REFLEX Routine 05/31/2013 9:38 AM EST Well adult exam COMPREHENSIVE METABOLIC PANEL Routine 05/31/2013 9:38 AM EST Well adult exam CBC WITH DIFF Routine 05/31/2013 9:38 AM EST Well adult exam POCT EKG Routine 05/31/2013 9:26 AM EST Well adult exam SCANNED PRE/POST PROCEDURES 01/20/2013 12:49 AM EDT SCANNED ANESTHESIA FORMS 01/20/2013 12:48 AM EDT SHOULDER ARTHROSCOPY LABRAL/BANKART/ BICEP TENODESIS (COVERS SUPERIOR LABRAL ANTERIOR POSTERIOR REPAIR/SLAP) 01/18/2013 8:53 AM EDT Rotator cuff (capsule) sprain Special Needs CPT;92261 [id number] MRI SHOULDER LEFT WO CONTRAST Routine 12/25/2012 1:27 PM EDT Rotator cuff syndrome of left shoulder XR FOOT RIGHT AP LATERAL AND OBLIQUE MELINDA 12/20/2012 10:41 AM EDT XR SPINE SCOLIOSIS STANDING Routine 11/09/2012 12:22 PM EDT Scoliosis Back pain PHENYTOIN LEVEL TOTAL Routine 11/02/2012 10:44 AM EDT Epilepsy (HCC) DIFFERENTIAL Routine 10/09/2012 9:24 AM EDT PHENYTOIN LEVEL TOTAL Routine 10/09/2012 9:24 AM EDT Epilepsy (HCC) Generalized anxiety disorder COMPREHENSIVE METABOLIC PANEL Routine 10/09/2012 9:24 AM EDT Epilepsy (HCC) CBC WITH DIFF Routine 10/09/2012 9:24 AM EDT Epilepsy (HCC) XR KNEE RIGHT AP LAT INT EXT OBLIQUES AND SUNRISE MELINDA 04/05/2012 5:50 PM EST DIFFERENTIAL Routine 02/28/2012 11:35 AM EST PHENYTOIN LEVEL TOTAL Routine 02/28/2012 11:35 AM EST Epilepsy (HCC) Abdominal pain Bipolar affective disorder (HCC) COMPREHENSIVE METABOLIC PANEL Routine 02/28/2012 11:35 AM EST Epilepsy (HCC) Bipolar affective disorder (HCC) CBC WITH DIFF Routine 02/28/2012 11:35 AM EST Epilepsy (HCC) Bipolar affective disorder (HCC) POCT URINALYSIS DIPSTICK Routine 02/28/2012 10:36 AM EST Abdominal pain PHENYTOIN LEVEL TOTAL Routine 12/02/2011 11:25 AM EDT Bipolar affective disorder (HCC) Encounter for long-term (current) use of medications COMPREHENSIVE METABOLIC PANEL Routine 12/02/2011 11:25 AM EDT Bipolar affective disorder (HCC) Encounter for long-term (current) use of medications CBC Routine 12/02/2011 11:25 AM EDT Bipolar affective disorder (HCC) Encounter for long-term (current) use of medications XR ELBOW LEFT AP LATERAL AND OBLIQUES MELINDA 10/01/2011 4:10 PM EDT XR TEMPOROMANDIBULAR JOINTS BILATERAL Routine 06/28/2011 12:38 PM EDT TMJ (dislocation of temporomandibular joint) Jaw pain Dental decay DIFFERENTIAL Routine 06/03/2011 1:29 PM EST PHENYTOIN LEVEL TOTAL Routine 06/03/2011 1:29 PM EST Bipolar affective disorder (HCC) Epilepsy (HCC) COMPREHENSIVE METABOLIC PANEL Routine 06/03/2011 1:29 PM EST Bipolar affective disorder (HCC) Epilepsy (HCC) CBC WITH DIFF Routine 06/03/2011 1:29 PM EST Bipolar affective disorder (HCC) Epilepsy (HCC) POCT URINALYSIS DIPSTICK Routine 05/03/2011 10:52 AM EST Side pain HEMOGLOBIN A1C Routine 12/19/2010 11:00 AM EDT Elevated glucose XR ANKLE RIGHT AP LATERAL AND OBLIQUE MELINDA 12/12/2010 1:54 PM EDT LDL, CALCULATED Routine 11/21/2010 11:14 AM EDT PHENYTOIN LEVEL TOTAL Routine 11/21/2010 11:14 AM EDT Epilepsy (HCC) CBC Routine 11/21/2010 11:14 AM EDT Epilepsy (HCC) COMPREHENSIVE METABOLIC PANEL Routine 11/21/2010 11:14 AM EDT Epilepsy (HCC) Encounter for long-term (current) use of medications LIPID PANEL REFLEX Routine 11/21/2010 11:14 AM EDT Lipid screening DIFFERENTIAL Routine 04/30/2010 10:08 AM EST PHENYTOIN LEVEL TOTAL Routine 04/30/2010 10:08 AM EST Encounter for long-term (current) use of other medications Epilep NOS w/o intr epil Bipolar disorder NOS CBC WITH DIFF Routine 04/30/2010 10:08 AM EST Encounter for long-term (current) use of other medications Epilep NOS w/o intr epil Bipolar disorder NOS COMPREHENSIVE METABOLIC PANEL Routine 04/30/2010 10:08 AM EST Encounter for long-term (current) use of other medications Epilep NOS w/o intr epil Bipolar disorder NOS SCANNED LABS 02/13/2010 12:00 AM EDT SCANNED RADIOLOGY REPORT 02/05/2010 12:00 AM EDT SCANNED RADIOLOGY REPORT 02/04/2010 12:00 AM EDT SCANNED LABS 02/01/2010 12:00 AM EDT SCANNED LABS 11/09/2009 12:00 AM EDT HELICOBACTER PYLORI ANTIBODY IGG Routine 11/07/2009 4:13 PM EDT SCANNED EKG 11/06/2009 12:00 AM EDT SCANNED LABS 11/06/2009 12:00 AM EDT SCANNED RADIOLOGY REPORT 11/06/2009 12:00 AM EDT TROPONIN-I STAT 11/05/2009 12:01 AM EDT SCANNED LABS 11/05/2009 12:00 AM EDT SCANNED RADIOLOGY REPORT 11/05/2009 12:00 AM EDT GC XX CHEST PORTABLE Routine 11/04/2009 11:28 PM EDT PHENOBARBITAL LEVEL STAT 11/04/2009 11:27 PM EDT BASIC METABOLIC PANEL STAT 11/04/2009 11:27 PM EDT DIFFERENTIAL STAT 11/04/2009 11:27 PM EDT CBC WITH DIFF STAT 11/04/2009 11:27 PM EDT GC EK EKG REG Routine 11/04/2009 11:02 PM EDT BASIC METABOLIC PANEL STAT 09/14/2009 2:43 AM EDT DIFFERENTIAL STAT 09/14/2009 2:43 AM EDT CBC WITH DIFF STAT 09/14/2009 2:43 AM EDT GC MR UP EXT ANY JNT W/O CONT Routine 09/01/2009 8:50 AM EDT GC XX BILAT SHOULDER Routine 08/24/2009 3:09 PM EDT SCANNED ECG 08/03/2009 12:00 AM EDT SCANNED ECG 08/03/2009 12:00 AM EDT PHENYTOIN LEVEL TOTAL Routine 07/25/2009 3:42 PM EDT GC MR ORBIT,FACE & NECK W & W/O Routine 06/26/2009 8:52 AM EDT PHENYTOIN LEVEL TOTAL Routine 05/30/2009 8:28 PM EST BASIC METABOLIC PANEL Routine 05/30/2009 8:28 PM EST HEPATIC FUNCTION PANEL Routine 0 8:28 PM EST DIFFERENTIAL Routine 05/30/2009 8:28 PM EST CBC WITH DIFF Routine 05/30/2009 8:28 PM EST GC MR LOW EXT ANY JNT W/O CONT Routine 09/19/2008 1:40 PM EDT GC XX KNEE Routine 09/09/2008 1:55 PM EDT GC XX LOWER LEG TIBIA/FIBULA Routine 09/09/2008 1:55 PM EDT GC HM HOLTER MONITOR PANEL Routine 11/20/2007 9:00 AM EDT GC EK EKG REG Routine 11/20/2007 8:32 AM EDT GC XX CHEST PORTABLE Routine 11/16/2007 2:18 PM EDT GC EK EKG REG Routine 11/16/2007 1:52 PM EDT XX KNEE Routine 04/02/2007 4:00 PM EST XX FOOT & TOES Routine 12/31/2005 6:45 PM EDT XX ANKLE Routine 12/31/2005 6:45 PM EDT XX SCAPULA Routine 05/02/2004 2:06 PM EST XX NOSE Routine 05/02/2004 2:06 PM EST Results * (ABNORMAL) VITAMIN B12/ FOLIC ACID (06/01/2018 10:14 AM EST) Only the most recent of2 resultswithin the time period is included. Vitamin B12 >1,600(H) 211 - 946 pg/mL 06/01/2018 4:11 PM EST [facility] Folate >16.00(H) 4.50 - 16.00 ng/mL 06/01/2018 4:11 PM EST [facility] Blood VENOUS BLOOD / Unknown Venipuncture / Unknown 06/01/2018 10:14 AM EST 06/01/2018 10:14 AM EST Narrative PREFERRED [facility] - 06/01/2018 4:11 PM EST Ingestion of roxanna doses of biotin (>5 mg/day) taken within 8 hours of drawing blood sample can interfere with this immunoassay test. us Dustin Mcintyre MD CHEMISTRY ORDERABLES F inal Result [facility]REFERRED [facility] [address] [facility] , [place] [address] * TSH REFLEX (06/01/2018 10:14 AM EST) TSH Reflex 1.640 0.270 - 4.200 mcIU/mL 06/01/2018 3:53 PM EST PREFERRED [facility], [facility] Blood VENOUS BLOOD / Unknown Venipuncture / Unknown 06/01/2018 10:14 AM EST 06/01/2018 10:14 AM EST Narrative [facility]REFERRED [facility], [facility] - 06/01/2018 3:53 PM EST Ingestion of roxanna doses of biotin (>5 mg/day) taken within 8 hours of drawing blood sample can interfere with this immunoassay test. Dustin Mcintyre MD CHEMISTRY ORDERABLES F inal Result Performing Organization Address City/[facility]/ZIP Co de Phone Number [facility] [address] , [place] [address] * (ABNORMAL) ACUTE HEPATITIS PANEL (06/01/2018 10:14 AM EST) Only the most recent of2 resultswithin the time period is included. Pathologist [facility] Hep Bs Ag Non-Reacti ve Non-Reacti ve 06/02/2018 11:57 AM EST PREFERRED LAB [facility], [facility] Hep B Core IgM Non-Reacti ve Non-Reacti ve 06/02/2018 11:57 AM EST [facility], [facility] Hep A IgM Non-Reacti ve Non-Reacti ve 06/02/2018 11:57 AM EST [facility], [facility] Hep C Ab Reactive(A ) Non-Reacti ve 06/02/2018 11:57 AM EST [facility], [facility] Comment:Reactive. Antibodies to HCV detected. >97% of specimens with high signal cutoff confirm as reactive. HCV QUANT W/RFLX TO GENOTYPE -REF LAB Blood VENOUS BLOOD / Unknown Venipuncture / Unknown 06/01/2018 10:14 AM EST 06/01/2018 10:14 AM EST Dustin Mcintyre MD CHEMISTRY ORDERABLES F inal Result Performing Organization Address City/[facility]/ZIP Co de Phone Number [facility], [address] , [place] [address] * (ABNORMAL) CBC WITH DIFF (06/01/2018 10:14 AM EST) Only the most recent of16 resultswithin the time period is included. WBC 6.6 3.7 - 10.3 x10(3)/mcL 06/01/2018 3:19 PM EST [facility] RBC 5.01 4.60 - 6.10 x10(6)/mcL 06/01/2018 3:19 PM EST [facility] Hgb 16.3 13.7 - 17.5 g/dL 06/01/2018 3:19 PM EST [facility] Hct 49.6 40.0 - 51.0 % 06/01/2018 3:19 PM EST [facility] MCV 99.0(H) 79.0 - 98.0 fL 06/01/2018 3:19 PM EST [facility] MCH 32.5(H) 26.0 - 32.0 pg 06/01/2018 3:19 PM EST [facility] MCHC 32.9 30.7 - 35.5 g/dL 06/01/2018 3:19 PM EST [facility] RDW 13.5 <=14.9 % 06/01/2018 3:19 PM EST [facility] Platelet 218 155 - 369 x10(3)/mcL 06/01/2018 3:19 PM EST [facility] MPV 10.6 8.8 - 12.5 fL 06/01/2018 3:19 PM EST [facility] Neut Percent 52.2 % 06/01/2018 3:19 PM EST [facility] Comment:Neutrophils equals s egs plus bands Imm Gran% 0.2 % 06/01/2018 3:19 PM EST [facility] Comment:Automated count of m etamyelocytes, myelocytes and promyelocytes. Lymph Percent 31.8 % 06/01/2018 3:19 PM EST [facility] [place] Percent 11.4 % 06/01/2018 3:19 PM EST [facility] Eos Percent 3.8 % 06/01/2018 3:19 PM EST [facility] Baso Percent 0.6 % 06/01/2018 3:19 PM EST [facility] Neut # 3.4 1.6 - 6.1 x10(3)/mcL 06/01/2018 3:19 PM EST [facility]REFERRED [facility], [facility] Comment:Neutrophils equals s egs plus bands IMMGRAN# 0.0 0.0 - 0.1 x10(3)/[facility] 06/01/2018 3:19 PM EST [facility], [facility] Comment:Automated count of m etamyelocytes, myelocytes and promyelocytes. An absolute IG <0.1 is reported as 0.0. Lymph # 2.1 1.2 - 3.9 x10(3)/[facility] 06/01/2018 3:19 PM EST [facility]REFERRED [facility], [facility] [place] # 0.8 0.3 - 0.9 x10(3)/[facility] 06/01/2018 3:19 PM EST [facility] Eos# 0.3 0.0 - 0.5 x10(3)/[facility] 06/01/2018 3:19 PM EST [facility]REF[facility]ED [facility], [facility] Baso # 0.0 0.0 - 0.1 x10(3)/[facility] 06/01/2018 3:19 PM EST [facility], [facility] Blood VENOUS BLOOD / Unknown Venipuncture / Unknown 06/01/2018 10:14 AM EST 06/01/2018 10:14 AM EST Dustin Mcintyre MD HEMATOLOGY ORDERABLES Final Result Performing Organization Address [facility] Co de Phone Number [facility] [address] , [place] [address] * (ABNORMAL) PHENYTOIN LEVEL TOTAL (06/01/2018 10:14 AM EST) Only the most recent of20 resultswithin the time period is included. Dilantin 9.0(L) 10.0 - 20.0 mcg/mL 06/01/2018 3:51 PM EST [facility], [facility] Blood VENOUS BLOOD / Unknown Venipuncture / Unknown 06/01/2018 10:14 AM EST 06/01/2018 10:14 AM EST Dustin Mcintyre MD CHEMISTRY ORDERABLES F inal Result Performing Organization Address [facility] Co de Phone Number [facility] [address] [facility] , [place] [address] * (ABNORMAL) COMPREHENSIVE METABOLIC PANEL (06/01/2018 10:14 AM EST) Only the most recent of18 resultswithin the time period is included. Sodium 138 136 - 145 mmol/L 06/01/2018 3:53 PM EST [facility] Potassium 4.1 3.5 - 5.0 mmol/L 06/01/2018 3:53 PM EST [facility] Chloride 100 98 - 107 mmol/L 06/01/2018 3:53 PM EST [facility] Total CO2 26 22 - 29 mmol/L 06/01/2018 3:53 PM EST [facility] Anion Gap 12 7 - 16 mmol/L 06/01/2018 3:53 PM EST [facility] Calcium 9.2 8.6 - 10.2 mg/dL 06/01/2018 3:53 PM EST [facility] Glucose Lvl 97 74 - 100 mg/dL 06/01/2018 3:53 PM EST [facility] BUN 8 6 - 20 mg/dL 06/01/2018 3:53 PM EST [facility] Creatinine 0.95 0.67 - 1.30 mg/dL 06/01/2018 3:53 PM EST [facility] Albumin 4.4 3.5 - 5.2 gm/dL 06/01/2018 3:53 PM EST [facility] Total Protein 7.7 6.4 - 8.3 gm/dL 06/01/2018 3:53 PM EST [facility] Bili Total 0.8 0.1 - 1.4 mg/dL 06/01/2018 3:53 PM EST [facility] ALT 412(H) <=41 IU/L 06/01/2018 3:53 PM EST [facility] AST 260(H) <=40 IU/L 06/01/2018 3:53 PM EST [facility] Alk Phos 145(H) 40 - 129 IU/L 06/01/2018 3:53 PM EST [facility] GFR Afr Am 111 >=60 mL/min/1.7 3 m2 06/01/2018 3:53 PM EST [facility] GFR Non Afr Am 96 >=60 mL/min/1.7 3 m2 06/01/2018 3:53 PM EST [facility] Comment: This estimated GFR was calculated using CKD-EPI equation which is modified based on ethnicity for Non Americans and Americans. Both results are reported since it is not always possible to determine the patient's ethnicity. This equation should only be used for individuals 18 and older. It has not been validated for use with the elderly (>70 years), women, or in some racial or ethnic subgroups, such as Hispanics. The equation will be less accurate in people with differences in nutritional status or muscle mass. Blood VENOUS BLOOD / Unknown Venipuncture / Unknown 06/01/2018 10:14 AM EST 06/01/2018 10:14 AM EST us Dustin Mcintyre MD CHEMISTRY ORDERABLES F inal Result [facility] [address] [facility] [place] [place] [address] [facility] [address] [place] [address] * POCT URINALYSIS DIPSTICK (06/01/2018 9:40 AM EST) Only the most recent of4 resultswithin the time period is included. 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 03/30/2018 3:05 PM EST us Unknown Unknown HEMATOLOGY ORDERABLES Final Resu lt * SCANNED RADIOLOGY REPORT (03/27/2018 3:12 PM EST) Only the most recent of5 resultswithin the time period is included. Anatomical Region Laterality Modality Other 03/27/2018 3:12 PM EST us Unknown Unknown IMG DIAGNOSTIC IMAGING ORDERABLE S Final Result * (ABNORMAL) LIPID PANEL REFLEX (12/05/2017 9:03 AM EDT) Only the most recent of11 resultswithin the time period is included. Cholesterol 207(H) <=200 mg/dL 12/05/2017 3:59 PM EDT [facility] Comment: < 200 Desirable 200 - 239 Borderline High >= 240 High Triglyceride 316(H) <=150 mg/dL 12/05/2017 3:59 PM EDT [facility] Comment: < 150 Normal 150 - 199 Borderline High 200 - 499 High >= 500 Very High HDL 33(L) >=40 mg/dL 12/05/2017 3:59 PM EDT [facility] Comment: > 60 Optimal 40 - 60 Acceptable < 40 Low LDL Calculated 111(H) <=100 mg/dL 12/05/2017 3:59 PM EDT [facility] Non-HDL-C Calculated 174(H) <=129 mg/dL 12/05/2017 3:59 PM EDT [facility] Comment: <130 Desirable 130-159 Above Desirable 160-189 Borderline High 190-219 High >= 220 Very High Blood VENOUS BLOOD / Unknown Venipuncture / Unknown 12/05/2017 9:03 AM EDT 12/05/2017 9:03 AM EDT us Germán Bradley MD CHEMISTRY ORDERABLES Final Re sult [facility] [address] [facility] , [address] [place] [address] * DRUGS OF ABUSE, SCREEN ONLY, URINE (06/30/2017 10:59 PM EDT) Only the most recent of2 resultswithin the time period is included. 6 AM (Heroin) Absent Absent 06/30/2017 11:29 PM EDT [facility] Amphetamines Absent Absent 06/30/2017 11:29 PM EDT [facility] Barbiturates Absent Absent 06/30/2017 11:29 PM EDT [facility] Benzodiazepines Absent Absent 8 11:29 PM EDT [facility] Buprenorphine Absent Absent 06/30/2017 11:29 PM EDT [facility] Cannabinoid Metabolite Absent Absent 06/30/2017 11:29 PM EDT [facility] Cocaine Metabolite Absent Absent 2017 11:29 PM EDT [facility] Methadone and Metabolite Absent Absent 06/30/2017 11:29 PM EDT [facility] Opiate Absent Absent 06/30/2017 11:29 PM EDT [facility] Oxycodone Lvl Absent Absent 06/30/2017 11:29 PM EDT [facility] Phencyclidine Absent Absent 06/30/2017 11:29 PM EDT [facility] Creatinine Ur >25.0 mg/dL 06/30/2017 11:29 PM EDT [facility] Comment: Greater than 20: Consistent with valid sample Greater than 2 but less than 20: Possible dilution Less than 2: Questionable valid sample Urine STRUCTURE OF URINARY TRACT PROPER / Unknown 06/30/2017 10:59 PM EDT 06/30/2017 11:03 PM EDT Narrative [facility] - 06/30/2017 11:29 PM EDT These drug classes have been qualitatively screened by immunoassay and are for medical purposes only. Results reported as presumptive positive have not been confirmed. If results don t reflect the clinical picture, the prescribed medication, or the discussion with the patient, confirmation testing is recommended on the ORIGINAL urine. All urine specimens for drug testing are held for 7 days. If confirmation testing is desired, call the Lab [facility]. Due to possible factors, such as, dilute/adulterated urine, concentration of drug/metabolite being below the cut-off, or antibody specificity of test reagent, a negative result does not rule out drug use. These results are only valid for urine specimens. Any contamination with vaginal pool/amniotic fluid could cause erroneous results. us Holly Brannon APRN URINE ORDERABLES Final Resul t Performing Organization Address [facility] de Phone Number [facility] [address] [place] [address] * EXTRA GOLD SST (06/30/2017 10:18 PM EDT) Blood VENOUS BLOOD / Unknown Venipuncture / Unknown 06/30/2017 10:18 PM EDT 06/30/2017 10:27 PM EDT us Robbie Queen MD CHEMISTRY ORDERABLES Final Resul t Performing Organization Address [facility] de Phone Number [facility] [address] [place] [address] * EXTRA LAVENDER (06/30/2017 10:18 PM EDT) Blood VENOUS BLOOD / Unknown Venipuncture / Unknown 06/30/2017 10:18 PM EDT 06/30/2017 10:27 PM EDT us Robbie Queen MD HEMATOLOGY ORDERABLES Final Resu lt Performing Organization Address [facility] de Phone Number [facility] [address] [place] [address] * EXTRA LIGHT BLUE (06/30/2017 10:18 PM EDT) Only the most recent of2 resultswithin the time period is included. Blood VENOUS BLOOD / Unknown Venipuncture / Unknown 06/30/2017 10:18 PM EDT 06/30/2017 10:27 PM EDT us Robbie Queen MD HEMATOLOGY ORDERABLES Final Resu lt Performing Organization Address [facility] Co de Phone Number [facility] [address] [place] [address] * (ABNORMAL) ALCOHOL MEDICAL (06/30/2017 10:18 PM EDT) Only the most recent of2 resultswithin the time period is included. Alcohol Medical 36(H) <=10 mg/dL 06/30/2017 10:39 PM EDT [facility] Blood VENOUS BLOOD / Unknown Venipuncture / Unknown 06/30/2017 10:18 PM EDT 06/30/2017 10:26 PM EDT us Robbie Queen MD CHEMISTRY ORDERABLES Final Resul t Performing Organization Address [facility] de Phone Number [facility] [address] [place] [address] * ACETAMINOPHEN LEVEL (06/30/2017 10:18 PM EDT) Only the most recent of2 resultswithin the time period is included. Acetaminophen Lvl <15.0 mcg/mL 018 11:16 PM EDT [facility] Blood VENOUS BLOOD / Unknown Venipuncture / Unknown 06/30/2017 10:18 PM EDT 06/30/2017 10:27 PM EDT Narrative [facility] - 06/30/2017 11:16 PM EDT Therapeutic: 10-30 mcg/ml Supratherapeutic: > 35 mcg/ml Toxic: > 150 mcg/ml (4h post ingestion) > 75 mcg/ml (8h post ingestion) > 40 mcg/ml (12h post ingestion) us Holly Brannon APRN CHEMISTRY ORDERABLES Final R esult Performing Organization Address [facility] Co de Phone Number [facility] [address] [place] [address] * SALICYLATE LEVEL (06/30/2017 10:18 PM EDT) Only the most recent of2 resultswithin the time period is included. Salicylate <0.3 <=0.3 mg/dL 06/30/2017 11:16 PM EDT [facility] Blood VENOUS BLOOD / Unknown Venipuncture / Unknown 06/30/2017 10:18 PM EDT 06/30/2017 10:27 PM EDT us Holly Brannon [employer] CHEMISTRY ORDERABLES Final R esult [facility] [address] [place] [address] * (ABNORMAL) BASIC METABOLIC PANEL (06/30/2017 10:18 PM EDT) Only the most recent of5 resultswithin the time period is included. Pathologist [facility] Sodium 142 136 - 145 mmol/L 06/30/2017 11:16 PM EDT [facility] Potassium 4.1 3.5 - 5.0 mmol/L 06/30/2017 11:16 PM EDT [facility] Chloride 101 98 - 107 mmol/L 06/30/2017 11:16 PM EDT [facility] Total CO2 26 22 - 29 mmol/L 06/30/2017 11:16 PM EDT [facility] Anion Gap 15 7 - 16 mmol/L 06/30/2017 11:16 PM EDT [facility] Calcium 9.4 8.6 - 10.2 mg/dL 06/30/2017 11:16 PM EDT [facility] Glucose Lvl 115(H) 74 - 100 mg/dL 06/30/2017 11:16 PM EDT [facility] BUN 12 6 - 20 mg/dL 06/30/2017 11:16 PM EDT [facility] Creatinine 0.96 0.67 - 1.30 mg/dL 06/30/2017 11:16 PM EDT [facility] GFR Afr Am 110 mL/min/1.7 3 m2 06/30/2017 11:16 PM EDT [facility] GFR Non Afr Am 95 mL/min/1.7 3 m2 06/30/2017 11:16 PM EDT [facility] Comment: GFR Afr Am and GFR Non Afr Am calculated using CKD-EPI equation. GFR Category GFR(mL/min/1.73 m ) Kidney Function G1 >=90 Normal or high G2 60-89 Mildly decreased G3a 45-59 Mildly to moderately decreased G3b 30-44 Moderately to severely decreased G4 15-29 Severely decreased G5 <15 Kidney Failure Blood VENOUS BLOOD / Unknown Venipuncture / Unknown 06/30/2017 10:18 PM EDT 06/30/2017 10:26 PM EDT us Holly Brannon [employer] CHEMISTRY ORDERABLES Final R esult [facility] [address] [place] [id number] * XR WRIST RIGHT PA LATERAL AND OBLIQUE (05/26/2017 9:46 PM EST) Anatomical Region Laterality Modality Wrist Radiographic Thao ging 05/26/2017 9:46 PM EST Impressions 05/26/2017 10:07 PM EST Negative exam. Narrative 05/26/2017 10:07 PM EST XR WRIST RIGHT PA LATERAL AND OBLIQUE, 05/26/2017 9:46 PM CLINICAL HISTORY: -MEDICAL CLEARANCE FOR DETENTION COMPARISON: None. PROCEDURE COMMENTS: 4 routine views of the right wrist. FINDINGS: No fracture, dislocation or radio-opaque foreign body. Navicular fractures can be occult on initial radiographs. If there is snuff-box tenderness consider follow-up radiographs in 10 to 14 days. Procedure Note Mauro Rosas MD - 05/26/2017 XR WRIST RIGHT PA LATERAL AND OBLIQUE, 05/26/2017 9:46 PM CLINICAL HISTORY: -MEDICAL CLEARANCE FOR DETENTION COMPARISON: None. PROCEDURE COMMENTS: 4 routine views of the right wrist. FINDINGS: No fracture, dislocation or radio-opaque foreign body.Navicular fractures can be occult on initial radiographs. If there is snuff-boxtenderness consider follow-up radiographs in 10 to 14 days. IMPRESSION: Negative exam. Gómez Reis APRN IMG DIAGNOSTIC IMAGING OR DERABLES Final Result * XR HAND RIGHT PA LATERAL AND OBLIQUE (05/26/2017 9:45 PM EST) Anatomical Region Laterality Modality Hand Radiographic Thao ging 05/26/2017 9:45 PM EST Impressions 05/26/2017 10:06 PM EST Tiny fracture fragment adjacent to the dorsal base of the distal phalanx of fourth finger as described. Narrative 05/26/2017 10:06 PM EST XR HAND RIGHT PA LATERAL AND OBLIQUE, 05/26/2017 9:45 PM CLINICAL HISTORY: -MEDICAL CLEARANCE FOR DETENTION COMPARISON: None. PROCEDURE COMMENTS: 3 routine radiographs of the right hand. FINDINGS: There is a tiny fracture fragment adjacent to the dorsal base of the distal phalanx of the fourth finger with overlying soft tissue swelling. This may be acute tiny chip or avulsion fracture. Clinical correlation suggested. No other evidence of fracture. No dislocation. No radiopaque foreign body. Procedure Note Mauro Rosas MD - 05/26/2017 XR HAND RIGHT PA LATERAL AND OBLIQUE, 05/26/2017 9:45 PM CLINICAL HISTORY: -MEDICAL CLEARANCE FOR DETENTION COMPARISON: None. PROCEDURE COMMENTS: 3 routine radiographs of the right hand. FINDINGS: There is a tiny fracture fragment adjacent to the dorsal base ofthe distal phalanx of the fourth finger with overlying soft tissue swelling.This may be acute tiny chip or avulsion fracture. Clinical correlationsuggested. No other evidence of fracture. No dislocation. No radiopaque foreign body. IMPRESSION: Tiny fracture fragment adjacent to the dorsal base of the distal phalanx of fourth finger as described. Gómez Reis APRN IMG DIAGNOSTIC IMAGING OR DERABLES Final Result * EXTRA DORADO URINE CX (04/16/2017 1:05 AM EST) Urine URINE SPECIMEN COLLECTION, CLEAN CATCH / Unknown 04/16/2017 1:05 AM EST 04/16/2017 1:17 AM EST Jose Carlos Rasheed MD MICROBIOLOGY - GENERAL ORDERAB LES Final Result Performing Organization Address [facility] Co de Phone Number [facility] [address] [place] [address] * URINALYSIS (04/16/2017 1:05 AM EST) Only the most recent of3 resultswithin the time period is included. UA Color Yellow 04/16/2017 1:20 AM EST [facility] UA Appear Clear Clear 04/16/2017 1:20 AM EST [facility] UA Glucose Negative Negative mg/dL 04/16/2017 1:20 AM EST [facility] UA Ketones Negative Negative mg/dL 04/16/2017 1:20 AM EST [facility] UA Blood Negative Negative 04/16/2017 1:20 AM EST [facility] UA pH 6.0 5.0 - 8.0 pH 04/16/2017 1:20 AM EST [facility] UA Protein Negative Negative mg/dL 04/16/2017 1:20 AM EST [facility] UA Urobilinogen 0.2 <=1 E.U./dL 04/16/19 18 1:20 AM EST [facility] UA Nitrite Negative Negative 04/16/2017 1:20 AM EST [facility] UA Leuk Est Negative Negative 04/16/2017 1:20 AM EST [facility] UA Spec Grav 1.025 1.001 - 1.035 no units 04/16/2017 1:20 AM EST [facility] Comment: Reference range valid for random specimens only. Urine URINE SPECIMEN COLLECTION, CLEAN CATCH / Unknown 04/16/2017 1:05 AM EST 04/16/2017 1:17 AM EST us Jose Carlos Rasheed MD URINE ORDERABLES Final Result Performing Organization Address [facility] Co de Phone Number [facility] [address] [place] [address] * LDL, CALCULATED (01/07/2017 10:30 AM EDT) Only the most recent of4 resultswithin the time period is included. LDL Calculated 51 <=100 mg/dL [facility] Comment: < 100 Optimal 100 - 129 Near or above optimal 130 - 159 Borderline High 160 - 189 High >= 190 Very High Blood specimen (specimen) 01/07/2017 10:30 AM EDT 01/07/2017 3:48 PM EDT Dustin Mcintyre MD CHEMISTRY ORDERABLES F inal Result Performing Organization Address [facility] de Phone Number [address] [address] * (ABNORMAL) DIFFERENTIAL (01/07/2017 10:30 AM EDT) Only the most recent of11 resultswithin the time period is included. Neut Percent 48.5 % [facility] Lymph Percent 34.1 % [facility] [place] Percent 9.2 % [facility] Eos Percent 6.9 % [facility] Baso Percent 1.3 % [facility] Neut# 3.9 1.8 - 7.7 x10(3)/mcL [facility] Lymph# 2.7 0.6 - 4.8 x10(3)/[facility] [place]# 0.7 0.0 - 1.3 x10(3)/[facility] Eos# 0.6(H) 0.0 - 0.5 x10(3)/[facility] Baso# 0.1 0.0 - 0.2 x10(3)/[facility] Blood specimen (specimen) 01/07/2017 10:30 AM EDT 01/07/2017 3:48 PM EDT us Dustin Mcintyre MD HEMATOLOGY ORDERABLES Final Result Performing Organization Address [facility] Co de Phone Number [address] [address] * XR KNEE RIGHT AP LAT INT EXT OBLIQUES AND SUNRISE (08/07/2016 1:54 PM EDT) Only the most recent of2 resultswithin the time period is included. Anatomical Region Laterality Modality Knee Radiographic Thao ging 08/07/2016 1:54 PM EDT Impressions 08/07/2016 2:01 PM EDT Impression: Negative right knee films. Narrative 08/07/2016 2:01 PM EDT Procedure: 5 view right knee, 08/07/2016. Indication: Pain. Findings: 5 view right knee. Comparison 04/05/2012. No fracture or malalignment. No worrisome bony lesion or radiopaque foreign body. No effusion. Procedure Note Uriel Amanda MD - 08/07/2016 Procedure: 5 view right knee, 08/07/2016. Indication: Pain. Findings: 5 view right knee. Comparison 04/05/2012. No fracture ormalalignment. No worrisome bony lesion or radiopaque foreign body. No effusion. IMPRESSION: Impression: Negative right knee films. us Dustin Mcintyre MD IMG DIAGNOSTIC IMAGING ORDERABLES Final Result * PULMONARY FUNCTION TEST (05/06/2016 8:51 AM EST) 05/06/2016 8:51 AM EST Impressions [facility] - 05/06/2016 8:51 AM EST Good patient effort and understanding. Acceptable results and reproducibility. Bronchodilator used = Albuterol 180mcg Normal FVC. MODERATE OBSTRUCTIVE VENTILATORY DEFECT. The elevated RV reflects AIR TRAPPING. The increased TLC indicates an OVER DISTENDED LUNG. DIFFUSING CAPACITY IS NORMAL, corrected for hemoglobin. THIS PATTERN SUGGEST ASTHMA or CHRONIC BRONCHITIS. AFTER INHALED BRONCHODILATOR, FEV1 is decreased indicating the possibility of suboptimal patient effort or an adverse reaction to the drug. Note: Expiratory limb is Flat and may suggest Intrathoracic Airway Obstruction, clincial correlation advised Clinical Correlation is Required. This data was interpreted based upon the 2005 ATS/ERS Task Force Position Statement: Interpretative Strategies for Lung Function Tests. This section is an excerpt of the full report. us Germán Bradley MD PFT ORDERABLES Final Result [facility] [address] [place] [address] * POCT EKG (04/29/2016 2:23 PM EST) Only the most recent of4 resultswithin the time period is included. 04/29/2016 2:23 PM EST Impressions [facility] - 04/29/2016 2:23 PM EST nsr No ischemia Normal ekg Germán Bradley MD POINT OF CARE CARDIOLOGY Zayra l Result Performing Organization Address City/[facility]/ZIP Co de Phone Number SEP OFFICE * SYPHILIS SCREEN WITH REFLEX RPR QUANT (04/01/2016 4:37 PM EST) TREP(SYPHILIS) AB INDEX <0.10 <=1.09 Index Value [facility] Comment: <0.90 - Negative 0.90 to 1.00 - Equivocal Patients with equivocal results should be retested in 7-14 days. >=1.10 - Positive NOTE: All equivocal and positive results will be reflexed to Quantitative Non-Treponemal(RPR)test. Blood specimen (specimen) UPPER LIMB STRUCTURE / Unknown 04/01/2016 4:37 PM EST 04/01/2016 8:41 PM EST Germán Bradley MD CHEMISTRY ORDERABLES Final Re sult Performing Organization Address [facility] [place] [address] * XR LUMBAR SPINE AP AND LATERAL (11/27/2015 5:54 PM EDT) Anatomical Region Laterality Modality L-spine Radiographic Thao ging 11/27/2015 5:54 PM EDT Impressions 11/27/2015 6:04 PM EDT Impression: No acute osseous abnormality identified in the lumbar spine. Narrative 11/27/2015 6:04 PM EDT Lumbar spine 3 views dated 11/27/2015 Comparison: None available History: Back pain Findings: There are 5 lumbar vertebral bodies. There is a defect in the L3 left transverse process which has smooth margins and is likely chronic, possibly related to a nonunited remote fracture or anatomic variation. Lumbar vertebral bodies are normal in height and alignment. Small hypertrophic endplate spurs are noted at several levels, greatest anteriorly at L4-5. Procedure Note Alexsander Rubio MD - 11/27/2015 Lumbar spine 3 views dated 11/27/2015 Comparison: None available History: Back pain Findings: There are 5 lumbar vertebral bodies. There is a defect in the L3 lefttransverse process which has smooth margins and is likely chronic, possibly relatedto a nonunited remote fracture or anatomic variation. Lumbar vertebral bodiesare normal in height and alignment. Small hypertrophic endplate spurs arenoted at several levels, greatest anteriorly at L4-5. IMPRESSION Impression: No acute osseous abnormality identified in the lumbar spine. Michelle Shirley MD IMG DIAGNOSTIC IMAGING ORDERABLE S Final Result * DC US LOWER EXTREMITY VENOUS LEFT (06/23/2015 6:16 PM EST) Anatomical Region Laterality Modality Vascular, Thigh, Leg Electrocard iography 06/23/2015 5:44 PM EST Impressions 06/24/2015 8:15 AM EST CONCLUSIONS No evidence of deep vein thrombosis identified in the left lower extremity. No evidence of superficial vein thrombosis identified in the left lower extremity. No evidence of thrombosis is noted in the contralateral right common femoral vein. Wang Harmon MD Narrative Procedure Note Wang Harmon Jr., MD - 06/24/2015 IMPRESSION CONCLUSIONS No evidence of deep vein thrombosis identified in the left lowerextremity. No evidence of superficial vein thrombosis identified in the left lowerextremity. No evidence of thrombosis is noted in the contralateral right commonfemoral vein. Wang Harmon MD Elina Hall MD IMG VASCULAR ORDERABLES Fin al Result * SCANNED RHYTHM STRIPS (06/22/2015 11:55 PM EST) Only the most recent of3 resultswithin the time period is included. Anatomical Region Laterality Modality Other 06/22/2015 11:5 5 PM EST Unknown Unknown IMG ECG ORDERABLES Final Result * PERIPHERAL BLOCK (06/20/2015 7:47 AM EST) Narrative [facility] - 06/20/2015 7:47 AM EST Jerson Can DO 06/20/2015 7:47 AM Peripheral Block by Anesthesia Patient location during procedure: pre-op Procedure Date/Time: 06/20/2015 7:46 AM Reason for block: at surgeon's request Staffing Anesthesiologist: JERSON CAN Other anesthesia staff: RAFFI FLORENTINO Performed by: anesthesiologist Preanesthetic Checklist Completed: patient identified, site marked, surgical consent, pre-op evaluation, timeout performed, IV checked, risks and benefits discussed, monitors and equipment checked and at surgeon's request Peripheral Block Immediate pre anesthetic assessment completed: Yes Patient position: supine Prep: ChloraPrep Patient monitoring: continuous pulse ox Block type: interscalene Laterality: right Injection technique: single-shot Medication: bupivacaine 0.5% w/epinephrine Dose: 30 Needle Needle type: Stimuplex Needle gauge: 22 G Needle length: 2 in Needle localization: anatomical landmarks, nerve stimulator and ultrasound guidance Assessment Injection assessment: no paresthesia on injection, negative aspiration for heme and incremental injection Paresthesia pain: none Heart rate change: no us Jerson Can DO ANESTHESIA ORDERABLES Valerio bill Result - Final Performing Organization Address [facility] de Phone Number [facility] [address] [place] [address] * LDL DIRECT (04/20/2015 9:44 AM EST) Only the most recent of5 resultswithin the time period is included. LDL Direct 65 <=100 mg/dL [facility] Comment: < 100 Optimal 100 - 129 Near or above optimal 130 - 159 Borderline High 160 - 189 High >= 190 Very High Blood specimen (specimen) 04/20/2015 9:44 AM EST 04/20/2015 3:48 PM EST us Germán Bradley MD CHEMISTRY ORDERABLES Final Re sult Performing Organization Address [facility] Co de Phone Number [facility] [address] [place] [address] * MRI SHOULDER RIGHT WO CONTRAST (03/22/2015 11:56 AM EST) Anatomical Region Laterality Modality Shoulder Magnetic Resonan ce 03/22/2015 11:5 6 AM EST Impressions 03/22/2015 12:56 PM EST IMPRESSION: 1. Negative for full-thickness or high-grade partial thickness rotator cuff tendon tear. There is moderate to severe rotator cuff tendinosis most severely involving the supraspinatus tendon. 2. Moderate to advanced glenohumeral degenerative joint changes with osteophyte formation, articular cartilage irregularity, and degenerative labral tearing. 3. Intra-articular biceps tendinosis. 4. Moderate to advanced acromioclavicular degenerative joint changes without undersurface spur. Narrative 03/22/2015 12:56 PM EST EXAMINATION: MRI SHOULDER RIGHT WO CONTRAST DATE: 03/22/2015 11:56 AM HISTORY: Chronic right shoulder pain. There is a reported baseball injury years ago per the questionnaire. COMPARISON: None. TECHNIQUE: Multiplanar, multisequence MR images of the right shoulder were obtained without the use of intra-articular or intravenous contrast. FINDINGS: Rotator cuff and associated structures: The rotator cuff tendons are diffusely enlarged and increased in signal consistent with moderate to severe tendinosis. There is likely intrasubstance tearing within the anterior supraspinatus tendon. The subscapularis tendon is intact with increased signal also suggesting tendinosis. The teres minor muscle and tendon are intact. The long head of the biceps tendon is intact and located within the bicipital groove. The intra-articular portion is enlarged and increased in signal. Osseous structures and articulations: There is no glenohumeral fracture or dislocation. There are moderate to advanced glenohumeral degenerative joint changes with formation of osteophytes. There is irregularity of the humeral and glenoid articular cartilage surfaces with fibrillation and fissuring. There are fluid intensity foci within the humeral head remaining somewhat intermediate on T1 sequences suggesting degenerative subchondral cystic change. There is no adjacent bone marrow edema. There is degenerative superior labral tearing involving the biceps anchor. There is a 5 mm low signal focus in the subcoracoid or subscapularis bursa suggesting intra-articular body. There are moderate to advanced acromioclavicular degenerative joint changes with fibrous and capsular hypertrophy. There is no significant undersurface spur formation. No os acromiale is identified. There is no significant fluid in the subacromial and subdeltoid bursa. Procedure Note Dar Plaza MD - 03/22/2015 EXAMINATION: MRI SHOULDER RIGHT WO CONTRAST DATE: 03/22/2015 11:56 AM HISTORY: Chronic right shoulder pain. There is a reported baseball injuryyears ago per the questionnaire. COMPARISON: None. TECHNIQUE: Multiplanar, multisequence MR images of the right shoulderwere obtained without the use of intra-articular or intravenous contrast. FINDINGS: Rotator cuff and associated structures: The rotator cuff tendons arediffusely enlarged and increased in signal consistent with moderate to severetendinosis. There is likely intrasubstance tearing within the anterior supraspinatustendon. The subscapularis tendon is intact with increased signal also suggesting tendinosis. The teres minor muscle and tendon are intact. The long head of the biceps tendon is intact and located within thebicipital groove. The intra-articular portion is enlarged and increased in signal. Osseous structures and articulations: There is no glenohumeral fractureor dislocation. There are moderate to advanced glenohumeral degenerativejoint changes with formation of osteophytes. There is irregularity of thehumeral and glenoid articular cartilage surfaces with fibrillation and fissuring.There are fluid intensity foci within the humeral head remaining somewhatintermediate on T1 sequences suggesting degenerative subchondral cystic change. There isno adjacent bone marrow edema. There is degenerative superior labraltearing involving the biceps anchor. There is a 5 mm low signal focus in thesubcoracoid or subscapularis bursa suggesting intra-articular body. There are moderate to advanced acromioclavicular degenerative jointchanges with fibrous and capsular hypertrophy. There is no significant undersurfacespur formation. No os acromiale is identified. There is no significant fluid in the subacromial and subdeltoid bursa. IMPRESSION: 1. Negative for full-thickness or high-grade partial thickness rotatorcuff tendon tear. There is moderate to severe rotator cuff tendinosis mostseverely involving the supraspinatus tendon. 2. Moderate to advanced glenohumeral degenerative joint changes withosteophyte formation, articular cartilage irregularity, and degenerative labraltearing. 3. Intra-articular biceps tendinosis. 4. Moderate to advanced acromioclavicular degenerative joint changeswithout undersurface spur. Dustin Mcintyre MD IMG MRI ORDERABLES Fin al Result * CBC (11/04/2014 10:36 AM EDT) Only the most recent of4 resultswithin the time period is included. WBC 7.2 4.0 - 11.0 x10(3)/mcL [facility] RBC 4.86 4.30 - 5.81 x10(6)/mcL [facility] Hgb 16.1 13.5 - 17.1 gm/dL [facility] Hct 47.6 38.9 - 51.6 % [facility] MCV 97.9 82.5 - 99.8 fL [facility] MCH 33.1 27.0 - 34.3 pg [facility] MCHC 33.8 32.1 - 35.3 gm/dL [facility] RDW 13.6 11.5 - 15.0 % [facility] Platelet 211 144 - 423 x10(3)/mcL [facility] MPV 9.2 6.8 - 10.8 fL [facility] Blood specimen (specimen) UPPER LIMB STRUCTURE / Unknown 11/04/2014 10:36 AM EDT 11/04/2014 4:05 PM EDT Dustin Mcintyre MD HEMATOLOGY ORDERABLES Final Result Performing Organization Address City/State/[facility] Co de Phone Number [facility] [address] [place] [address] * SCANNED PATHOLOGY REPORT (09/20/2014 5:07 PM EDT) Only the most recent of2 resultswithin the time period is included. 09/20/2014 5:07 PM EDT Unknown Unknown PATHOLOGY ORDERABLES Final Resul t * XR CHEST PA AND LATERAL (05/18/2014 11:55 AM EST) Only the most recent of2 resultswithin the time period is included. Anatomical Region Laterality Modality Chest Radiographic Thao ging 05/18/2014 11:3 8 AM EST Impressions 05/18/2014 12:02 PM EST IMPRESSION: No acute findings on this PA and lateral chest. Narrative 05/18/2014 12:02 PM EST PROCEDURE: PA and lateral chest or 05/18/2014. INDICATION: Cough. Short of breath for 3 days. FINDINGS: PA and lateral chest. Comparison examination 05/31/2013. Heart size and pulmonary vascularity are normal. Lungs are clear. No pneumothorax or effusion. Procedure Note Uriel Amanda MD - 05/18/2014 PROCEDURE: PA and lateral chest or 05/18/2014. INDICATION: Cough. Short of breath for 3 days. FINDINGS: PA and lateral chest. Comparison examination 05/31/2013. Heartsize and pulmonary vascularity are normal. Lungs are clear. No pneumothorax or effusion. IMPRESSION: No acute findings on this PA and lateral chest. us Mariaelena Rossi MD IMG DIAGNOSTIC IMAGING ORDER MK Final Result * POCT OCCULT BLOOD STOOL (2014 11:02 AM EST) Fec Heme neg Pos/Neg SEP OFFICE 2014 11:0 2 AM EST us Dustin Mcintyre MD POINT OF CARE TEST ORD ERABLES Final Result SEP OFFICE * MISCELLANEOUS LAB (03/08/2014 11:28 AM EST) Blood specimen (specimen) 03/08/2014 11:28 AM EST 03/08/2014 3:39 PM EST Narrative [facility] - 03/16/2014 8:03 AM EST [employer]-See attached Fax to [phone] us Los Gordon MD HEMATOLOGY ORDERABLES Edited Result - Final [facility] [address] [place] [address] * SCANNED PRE/POST PROCEDURES (02/08/2014 1:26 AM EDT) Narrative Procedure Note Unknown, Unknown - 02/08/2014 1:26 AM EDT us Unknown Unknown PROCEDURE/MINOR SURGICAL ORDERAB LES Final Result * SCANNED ANESTHESIA FORMS (02/08/2014 1:26 AM EDT) Narrative Procedure Note Unknown, Unknown - 02/08/2014 1:26 AM EDT us Unknown Unknown PROCEDURE/MINOR SURGICAL ORDERAB LES Final Result * PATHOLOGY TISSUE REPORT (02/04/2014 8:20 AM EDT) Surgical Pathology Report PATIENT NAME:NUNO DAO Surgical Pathology Report Accession Number Collected Date/Time Received Date/Time SP-02/04/14 08:20 EDT 02/04/14 12:54 EDT Diagnosis 1) Right maxillary ethmoid sinus contents: - Acute and chronic sinusitis. - Negative for malignancy. 2) Left maxillary sinus biopsy: - Acute and chronic sinusitis. - Negative for malignancy. Lisset Saldana (Electronicall y signed by) Verified: 02/07/2014 [facility] Clinical Information Chronic maxillary sinusitis. Gross Description Part 1) Received in formalin labeled with the patient's name and right maxillary ethmoid sinus contents is a 2.0 x 2.0 x 0.3 cm aggregate of [place]- [place] soft tissue fragments and rare bone. The soft tissue is entirely submitted in one cassette. /BC Part 2) Received in formalin labeled with the patient's name and left maxillary sinus biopsy is a 1.5 x 1.0 x 0.3 cm aggregate of [place] soft tissue fragments and rare bone. The soft tissue is entirely submitted in one cassette. /BC MR /BR Microscopic Description Microscopic examination is performed and the findings corroborate the diagnosis. [facility] 02/04/2014 8:20 AM EDT us Los Gordon MD PATHOLOGY ORDERABLES Final R esult [facility] [address] [place] [address] * FUNGUS CULTURE-OTHER (02/04/2014 8:00 AM EDT) Final No growth of fungus at 4 weeks [facility] Specimen from nose (specimen) NASAL STRUCTURE / Unknown 02/04/2014 8:00 AM EDT 02/04/2014 10:08 AM EDT Comment:LEFT MAX SINUS SWAB Narrative [facility] - 03/04/2014 4:01 PM EST Aerobic, anaerobic, fungus culture from left maxillary sinus Los Gordon MD MICROBIOLOGY - GENERAL ORDER MK Final Result [facility] [address] [place] [address] * WOUND CULTURE (02/04/2014 8:00 AM EDT) GS No slide sent/smear made after culture inoculated Rare WBC's Rare RBC's Rare Gram positive cocci [facility] Final Moderate growth of Staphylococcus aureus Sparse growth of Coagulase negative staphylococci No further workup Moderate growth of beta hemolytic Streptococci suspect Streptococcus anginosus group No further workup [facility] Organism Staphylococcus aureus [facility] Specimen from nose (specimen) NASAL STRUCTURE / Unknown 02/04/2014 8:00 AM EDT 02/04/2014 10:08 AM EDT Comment:LEFT MAX SINUS SWAB Narrative [facility] - 02/07/2014 9:08 AM EDT Aerobic, anaerobic, fungus culture from left maxillary sinus Organism Antibiotic Method Susceptibility Staphylococcus aureus Benzylpenicillin V UDAY >=0.5: Resistant Staphylococcus aureus Ciprofloxacin V UDAY <=0.5: Susceptible Staphylococcus aureus Clindamycin V UDAY <=0.25: Resistant Comment: This organism is presumed to be clindamycin resistant based on the detection of inducible resistance to this drug. Staphylococcus aureus Erythromycin V UDAY 1.0: Resistant Staphylococcus aureus Gentamicin V UDAY <=0.5: Susceptible Comment: Rifampin and Gentamicin should not be used alone for antimicrobial therapy. For methicillin resistant staphylococci, ciprofloxacin should also not be used alone. Staphylococcus aureus Levofloxacin V UDAY 0.25: Susceptible Staphylococcus aureus Moxifloxacin V UDAY <=0.25: Susceptible Staphylococcus aureus Oxacillin V UDAY 0.5: Susceptible Staphylococcus aureus Tetracycline V UDAY <=1: Susceptible Staphylococcus aureus Trimethoprim/Sulfamethoxazole V UDAY <=10: Susceptible Staphylococcus aureus Vancomycin V UDAY 1.0: Susceptible Los Gordon MD MICROBIOLOGY - GENERAL ORDER MK Final Result Performing Organization Address [facility] de Phone Number [facility] [address] [place] [address] * ANAEROBIC CULTURE (02/04/2014 8:00 AM EDT) Final No anaerobic growth at 5 days [facility] Specimen from nose (specimen) NASAL STRUCTURE / Unknown 02/04/2014 8:00 AM EDT 02/04/2014 10:08 AM EDT Comment:LEFT MAX SINUS SWAB Narrative [facility] - 02/10/2014 5:01 PM EDT Aerobic, anaerobic, fungus culture from left maxillary sinus Los Gordon MD MICROBIOLOGY - GENERAL ORDER MK Final Result Performing Organization Address [facility] de Phone Number [facility] [address] [place] [address] * HEPATIC FUNCTION PANEL (01/24/2014 11:31 AM EDT) Only the most recent of2 resultswithin the time period is included. Total Protein 6.8 6.4 - 8.3 gm/dL [facility] Albumin 4.2 3.5 - 5.2 gm/dL [facility] Bili Direct <0.2 0.0 - 0.3 mg/dL [facility] Bili Total 0.1 0.1 - 1.4 mg/dL [facility] AST 40 <=40 IU/L [facility] ALT 38 <=41 IU/L [facility] Alk Phos 106 40 - 129 IU/L [facility] Blood specimen (specimen) UPPER LIMB STRUCTURE / Unknown 01/24/2014 11:31 AM EDT 01/24/2014 2:38 PM EDT Koffi Jay MD CHEMISTRY ORDERABLES Edited R esult - Final Performing Organization Address [facility] Co de Phone Number [facility] [address] [place] [address] * XR WRIST LEFT PA LATERAL AND OBLIQUE (11/12/2013 7:02 PM EDT) Anatomical Region Laterality Modality Wrist Radiographic Thao ging 11/12/2013 6:49 PM EDT Impressions 11/12/2013 7:13 PM EDT IMPRESSION: No fracture. No dislocation. Narrative 11/12/2013 7:13 PM EDT Left wrist 4 views INDICATION: Laceration. Procedure Note Waqar Wilson MD - 11/12/2013 Left wrist 4 views INDICATION: Laceration. IMPRESSION: No fracture. No dislocation. Jerson Go MD IMG DIAGNOSTIC IMAGING ORDER MK Final Result * MRI KNEE RIGHT WO CONTRAST (11/01/2013 10:33 AM EDT) Anatomical Region Laterality Modality Knee Magnetic Resonan ce 11/01/2013 8:55 AM EDT Impressions 11/01/2013 1:29 PM EDT IMPRESSION: 1. 7 x 11 mm area of chondral damage of the medial femoral condyle. 2. Intact menisci. Narrative 11/01/2013 1:29 PM EDT MRI KNEE RIGHT WO CONTRAST Nov 01, 2013 10:33:04 AM HISTORY: Knee pain, medial more than lateral. MRI of the right knee shows chondral damage of the medial femoral condyle in the central weight-bearing area with near full-thickness damage measuring 7 mm x 11 mm. The medial meniscus remains intact. The lateral meniscus is normal. The lateral femorotibial compartment is intact. ACL and PCL are normal. MCL and lateral collateral stabilizers are normal. Patellofemoral compartment shows mild chondromalacia of the medial face. The retinacula and extensor tendons are normal. Procedure Note Albert Craig MD - 11/01/2013 MRI KNEE RIGHT WO CONTRAST Nov 01, 2013 10:33:04 AM HISTORY: Knee pain, medial more than lateral. MRI of the right knee shows chondral damage of the medial femoral condylein the central weight-bearing area with near full-thickness damage measuring 7 mm x 11mm. The medial meniscus remains intact. The lateral meniscus is normal. Thelateral femorotibial compartment is intact. ACL and PCL are normal. MCL and lateral collateral stabilizers arenormal. Patellofemoral compartment shows mild chondromalacia of the medial face.The retinacula and extensor tendons are normal. IMPRESSION: 1. 7 x 11 mm area of chondral damage of the medial femoral condyle. 2. Intact menisci. Dustin Mcintyre MD IMG MRI ORDERABLES Fin al Result * PROSTATE SPECIFIC ANTIGEN (SCREENING) (10/25/2013 10:12 AM EDT) Total PSA 0.66 ng/mL [facility] Comment: 2008 AUA Best Practice Statement Guidelines-Age Adjusted Reference Intervals: Age Range Whites Americans Americans 40-49 years 0-2.5 ng/mL 0-2.0 ng/mL 0-2.0 ng/mL 50-59 years 0-3.5 ng/mL 0-4.0 ng/mL 0-3.0 ng/mL 60-69 years 0-4.5 ng/mL 0-4.5 ng/mL 0-4.0 ng/mL 70-79 years 0-6.5 ng/mL 0-5.5 ng/mL 0-5.0 ng/mL [facility] uses the [employer] Total PSA assay, which is approved as an aid in detecting prostate cancer when used in conjunction with digital rectal exam in men 50 years or older and also as an adjunctive test to aid in the management of prostate cancer patients. Prostatic biopsy is required for the diagnosis of cancer. Values obtained with different assay methods should not be used interchangeably. Consider the above as guidelines only. The risk of prostate cancer is a continuum across a range of PSA levels, with increasing risk as the PSA increases. Blood specimen (specimen) UPPER LIMB STRUCTURE / Unknown 10/25/2013 10:12 AM EDT 10/25/2013 4:53 PM EDT Dustin Mcintyre MD CHEMISTRY ORDERABLES F inal Result [facility] [address] [place] [address] * MRI BRAIN W WO CONTRAST (07/23/2013 9:50 AM EDT) Anatomical Region Laterality Modality Head Magnetic Resonan ce 07/23/2013 8:37 AM EDT Impressions 07/23/2013 11:44 AM EDT IMPRESSION: No evidence of acoustic neuroma or cerebellopontine angle mass. Cerebellar atrophy for age. Left maxillary sinus disease. Narrative 07/23/2013 11:44 AM EDT MRI of the brain with and without contrast with attention to the IACs and posterior fossa 07/23/2013 CLINICAL HISTORY: asymmetric central neural hearing loss. Forgetfulness. FINDINGS: The study is performed with 7 mL MultiHance There is diffuse cerebellar atrophy for age. The ventricles are midline in position. There are no extra-axial collections. There are no focal areas of abnormal signal intensity VII/VIII complexes appear normal. There is no cerebellopontine angle mass The mastoid air cells and middle ear cavities are well-aerated. There is moderate opacification of the left maxillary sinus Procedure Note Wang Rodrigez MD - 07/23/2013 MRI of the brain with and without contrast with attention to the IACs andposterior fossa 07/23/2013 CLINICAL HISTORY: asymmetric central neural hearing loss. Forgetfulness. FINDINGS: The study is performed with 7 mL MultiHance There is diffuse cerebellar atrophy for age. The ventricles are midline inposition. There are no extra-axial collections. There are no focal areas of abnormal signalintensity VII/VIII complexes appear normal. There is no cerebellopontine anglemass The mastoid air cells and middle ear cavities are well-aerated. There ismoderate opacification of the left maxillary sinus IMPRESSION: No evidence of acoustic neuroma or cerebellopontine angle mass. Cerebellar atrophy for age. Left maxillary sinus disease. us Los Gordon MD IMG MRI ORDERABLES Final Res ult * SCANNED PRE/POST PROCEDURES (01/20/2013 12:49 AM EDT) 01/20/2013 12:4 9 AM EDT Narrative Procedure Note Unknown, Unknown - 01/20/2013 12:48 AM EDT us Unknown Unknown PROCEDURE/MINOR SURGICAL ORDERAB LES Final Result * SCANNED ANESTHESIA FORMS (01/20/2013 12:48 AM EDT) 01/20/2013 12:4 8 AM EDT Narrative Procedure Note Unknown, Unknown - 01/20/2013 12:48 AM EDT us Unknown Unknown PROCEDURE/MINOR SURGICAL ORDERAB LES Final Result * MRI SHOULDER LEFT WO CONTRAST (12/25/2012 1:27 PM EDT) Anatomical Region Laterality Modality Shoulder Magnetic Resonan ce 12/25/2012 Impressions 12/25/2012 3:06 PM EDT IMPRESSION: 1. Undersurface tear of the leading edge of the subscapularis. 2. Chronic labral tearing posteroinferiorly from at least 4 o'clock to 5 o'clock. 3. Degenerative changes of the AC joint including active inflammation. 4. Tendinopathy of the supraspinous tendon, but no evidence of discrete tear. Narrative 12/25/2012 3:06 PM EDT MRI OF THE LEFT SHOULDER: INDICATIONS: Pain and concern for bursal abnormality. TECHNIQUE: Long and short imaging parameters were obtained in the sagittal, coronal and axial orientation. FINDINGS: The examination demonstrates diffuse thickening and abnormal signal of the supraspinous tendon, consistent with global tendinopathy. There is no evidence of a discrete, full-thickness tear, however, of the supraspinatus. The infraspinatus and teres minor are intact. There is an undersurface tear of the subscapularis. Indeed, axial images demonstrate subluxation of the long head of the biceps about its mid and proximal course through the bicipital groove. The long head of the biceps, per se, is intact, as is its insertional footprint on the superior labral anchor. The short head is intact. There is para labral cyst formation centered posteroinferiorly about the 4 o'clock to 5 o'clock position; findings are indicative of chronic labral tearing. There is degenerative disease of the AC joint. Joint space narrowing, osteophyte formation and sclerosis are noted. There is also active inflammation. Does this patient perform repetitive motion at work or recreationally? Procedure Note Memo Tong MD - 12/25/2012 MRI OF THE LEFT SHOULDER: INDICATIONS: Pain and concern for bursal abnormality. TECHNIQUE: Long and short imaging parameters were obtained in thesagittal, coronal and axial orientation. FINDINGS: The examination demonstrates diffuse thickening and abnormalsignal of the supraspinous tendon, consistent with global tendinopathy. There is noevidence of a discrete, full-thickness tear, however, of the supraspinatus. The infraspinatus andteres minor are intact. There is an undersurface tear of the subscapularis. Indeed, axialimages demonstrate subluxation of the long head of the biceps about its mid and proximalcourse through the bicipital groove. The long head of the biceps, per se, is intact, as isits insertional footprint on the superior labral anchor. The short head is intact. Thereis para labral cyst formation centered posteroinferiorly about the 4 o'clock to 5 o'clockposition; findings are indicative of chronic labral tearing. There is degenerative disease of theAC joint. Joint space narrowing, osteophyte formation and sclerosis are noted. There isalso active inflammation. Does this patient perform repetitive motion at work orrecreationally? IMPRESSION: 1. Undersurface tear of the leading edge of the subscapularis. 2. Chronic labral tearing posteroinferiorly from at least 4 o'clock to 5o'clock. 3. Degenerative changes of the AC joint including active inflammation. 4. Tendinopathy of the supraspinous tendon, but no evidence of discretetear. us Germán Bradley MD IMG MRI ORDERABLES Final Resu lt * XR FOOT RIGHT AP LATERAL AND OBLIQUE (12/20/2012 10:41 AM EDT) Anatomical Region Laterality Modality Foot Radiographic Thao ging 12/20/2012 10:1 4 AM EDT Impressions 12/20/2012 12:59 PM EDT IMPRESSION: No evidence of fracture. Narrative 12/20/2012 12:59 PM EDT 12/20/2012 THREE-VIEW RIGHT FOOT: CLINICAL HISTORY: Recurrent lateral pain. Comparison with 12/31/2005 exam. No focal displaced or healing fracture identified. No significant soft tissue injury or degenerative change. If the patient has progressive pain, followup MR imaging advised. Procedure Note Augustine Nguyen DO - 12/20/2012 12/20/2012 THREE-VIEW RIGHT FOOT: CLINICAL HISTORY: Recurrent lateral pain. Comparison with 12/31/2005exam. No focal displaced or healing fracture identified. No significant softtissue injury or degenerative change. If the patient has progressive pain, followup MRimaging advised. IMPRESSION: No evidence of fracture. us Pino Maxwell MD IMG DIAGNOSTIC IMAGING ORDER MK Final Result * XR SPINE SCOLIOSIS STANDING (11/09/2012 12:22 PM EDT) Anatomical Region Laterality Modality Spine Radiographic Thao ging 11/09/2012 Narrative 11/09/2012 1:27 PM EDT Scoliosis series, 4 views, 12:16 p.m., October 24 Assess scoliosis, no priors There are 12 thoracic and 5 lumbar vertebrae. In the lateral view these are normal in shape and alignment. There is no anomaly. There is no pelvic tilt or cervical shift. There is a curvature the spine apex right. This measures 10 degrees apex right between T3 and T7. Impression, No vertebral body anomaly. There is a mild thoracic scoliosis, apex right, in the midthoracic spine. The patient asked that these results be called to his cell phone at [phone]. This call was not made by radiology. Maurice Procedure Note Sotero Richards MD - 11/09/2012 Scoliosis series, 4 views, 12:16 p.m., October 24 Assess scoliosis, no priors There are 12 thoracic and 5 lumbar vertebrae. In the lateral view theseare normal in shape and alignment. There is no anomaly. There is no pelvic tilt or cervicalshift. There is a curvature the spine apex right. This measures 10 degrees apex rightbetween T3 and T7. Impression, No vertebral body anomaly. There is a mild thoracic scoliosis, apex right, in the midthoracicspine. The patient asked that these results be called to his cell phone [phone]. This call was not made by radiology. Richards us Germán Bradley MD [facility] [place] DIAGNOSTIC IMAGING ORDERA BLES Final Result * XR ELBOW LEFT AP LATERAL AND OBLIQUES (10/01/2011 4:10 PM EDT) Anatomical Region Laterality Modality Elbow Radiographic Thao ging 10/01/2011 3:59 PM EDT Impressions 10/01/2011 4:33 PM EDT IMPRESSION: Negative exam. Narrative 10/01/2011 4:33 PM EDT XR ELBOW LEFT AP LATERAL AND OBLIQUES 10/01/2011 HISTORY: Pain No significant osseous, soft tissue, or joint space abnormality is seen. Small well-corticated density seen adjacent to the medial condyle of the humerus, likely related to previous trauma. Procedure Note Tacho Holley MD - 10/01/2011 XR ELBOW LEFT AP LATERAL AND OBLIQUES 10/01/2011 HISTORY: Pain No significant osseous, soft tissue, or joint space abnormality is seen.Small well-corticated density seen adjacent to the medial condyle of the humerus, likely relatedto previous trauma. IMPRESSION: Negative exam. Mariaelena Rossi MD [facility] Final Result * XR TEMPOROMANDIBULAR JOINTS BILATERAL (06/28/2011 12:38 PM EDT) Anatomical Region Laterality Modality Head Radiographic Thao ging 06/28/2011 Impressions 06/28/2011 1:15 PM EDT IMPRESSION: No fractures. No dislocations. No significant degenerative change. If further workup is desired, dynamic MRI may be helpful to evaluate or TMJ disc problems. Narrative 06/28/2011 1:15 PM EDT TMJ 9 views HISTORY: Pain. Procedure Note Waqar Wilson MD - 06/28/2011 TMJ 9 views HISTORY: Pain. IMPRESSION: No fractures. No dislocations. No significant degenerative change. If further workup is desired, dynamic MRI may be helpful to evaluate orTMJ disc problems. Germán Bradley MD IMG DIAGNOSTIC IMAGING ORDERA BLES Final Result * HEMOGLOBIN A1C (12/19/2010 11:00 AM EDT) Hgb A1c 5.3 <=7.0 % [facility] Comment: Initial Diagnostic Criteria < 5.7 % Normal 5.7 - 6.4 % At risk for diabetes mellitus >= 6.5 % Consistent with diabetes mellitus Diabetes monitoring Target Value (ADA recommended): < 7 % Blood specimen (specimen) UPPER LIMB STRUCTURE / Unknown 12/19/2010 11:00 AM EDT 12/19/2010 4:04 PM EDT Germán Bradley MD CHEMISTRY ORDERABLES Final Re sult [facility] [address] [place] [address] * XR ANKLE RIGHT AP LATERAL AND OBLIQUE (12/12/2010 1:54 PM EDT) Anatomical Region Laterality Modality Ankle Radiographic Thao ging 12/12/2010 1:42 PM EDT Impressions 12/12/2010 2:00 PM EDT IMPRESSION: Oblique mildly displaced distal fibula fracture. Narrative 12/12/2010 2:00 PM EDT Right ankle 3 views dated 12/12/2010 COMPARISON: 12/31/2005 HISTORY: Twisting injury FINDINGS: There is an oblique fracture of the distal fibula metaphysis, which extends to the level of the tibiotalar joint, compatible with a Cai type B fracture. This demonstrates mild lateral and posterior displacement of the distal fracture fragment measuring approximately one cortical width. No additional fractures are seen. Ankle mortise is anatomic in alignment. There is lateral soft tissue swelling and a suspected ankle joint effusion. Procedure Note Alexsander Rubio MD - 12/12/2010 Right ankle 3 views dated 12/12/2010 COMPARISON: 12/31/2005 HISTORY: Twisting injury FINDINGS: There is an oblique fracture of the distal fibula metaphysis, whichextends to the level of the tibiotalar joint, compatible with a Cai type B fracture. Thisdemonstrates mild lateral and posterior displacement of the distal fracture fragment measuringapproximately one cortical width. No additional fractures are seen. Ankle mortise is anatomic inalignment. There is lateral soft tissue swelling and a suspected ankle joint effusion. IMPRESSION: Oblique mildly displaced distal fibula fracture. Ty Griffiths DO IMG DIAGNOSTIC IMAGING ORDERA BLES Final Result * HELICOBACTER PYLORI ANTIBODY IGG (11/07/2009 4:13 PM EDT) Pathologist [facility] H pylori IgG 0.44 Index Value [facility] Comment: I.V. = Index Value I.V. < 0.90 No detectable IgG antibodies to H. Pylori I.V. 0.90 - 1.09 Equivocal for IgG antibodies to H. Pylori. Re-testing a new specimen is recommended. I.V. >= 1.10 H. Pylori IgG antibody detected. Blood specimen (specimen) 11/07/2009 4:13 PM EDT 11/07/2009 8:55 PM EDT us Germán Braldey MD IMMUNOLOGY ORDERABLES Final R esult [facility] [address] [place] [address] * SCANNED EKG (11/06/2009 12:00 AM EDT) Anatomical Region Laterality Modality Other Narrative 11/06/2009 9:16 AM EDT Ordered by an unspecified provider. Transcriptions Unknown, Unknown - 11/06/2009 5:12 AM EDT us Unknown Unknown IMG ECG ORDERABLES Final Result * TROPONIN-I (11/05/2009 12:01 AM EDT) Troponin-I 0.01 ng/mL [facility] Comment: Note: New reference ranges for high sensitivity Troponin I. Troponin Level Significance < 0.01 ng/mL Negative 0.01 - 0.06 ng/mL Detectable troponin of unknown significance >= 0.07 Possible myocardial injury Note: A variety of mechanisms may cause myocardial injury. The diagnosis of myocardial infarction depends both on elevated levels of troponin and on clinical data that support ischemia as a cause. It is not possible to reliably discriminate ischemic from nonischemic causes by a single cutoff level. However, a rising or falling pattern of troponin values is helpful in discriminating acute injury from chronic causes. Blood specimen (specimen) 11/05/2009 12:01 AM EDT 11/05/2009 12:01 AM EDT us Ty Griffiths DO CHEMISTRY ORDERABLES Final Re sult [facility] [address] [place] [address] * XR CHEST PORTABLE GC (11/04/2009 11:28 PM EDT) Only the most recent of2 resultswithin the time period is included. Anatomical Region Laterality Modality Other 11/04/2009 11:2 8 PM EDT Narrative 11/04/2009 11:51 PM EDT Single view of the chest- 11/04/2009, 2335 History- Chest pain. Comparison- 11-16-07. FINDINGS- The heart is normal in size. The lungs are clear of infiltrate. The costophrenic angles are within normal limits. There is no pleural effusion. No pneumothorax. The cardiac silhouette is within normal limits. IMPRESSION- Normal portable chest . College Hire- ALBERT CRAIG MD Reading Physician- ALBERT CRAIG MD Released Date Time- 11/04/09 2352 Procedure Note Albert Craig - 11/04/2009 Single view of the chest- 11/04/2009, 2335 History- Chest pain. Comparison- 11-16-07. FINDINGS- The heart is normal in size. The lungs are clear of infiltrate. The costophrenic angles are within normal limits. There is no pleural effusion. No pneumothorax. The cardiac silhouette is within normal limits. IMPRESSION- Normal portable chest . College Hire- ALBERT CRAIG MD Reading Physician- ALBERT CRAIG MD Released Date Time- 11/04/09 2352 us Ty Griffiths DO IMG [facility] RAD HISTORICAL F inal Result * (ABNORMAL) PHENOBARBITAL LEVEL (11/04/2009 11:27 PM EDT) Phenobarbital Lvl <3.0(L) 15.0 - 40.0 mcg/mL [facility] Blood specimen (specimen) 11/04/2009 11:27 PM EDT 11/05/2009 6:47 PM EDT Ty Griffiths DO CHEMISTRY ORDERABLES Final Re sult [facility] [address] [place] [address] * EK EKG REG GC (11/04/2009 11:02 PM EDT) Only the most recent of3 resultswithin the time period is included. Anatomical Region Laterality Modality Other 11/04/2009 11:0 2 PM EDT Narrative 11/06/2009 2:48 PM EDT Sinus bradycardia Normal ECG except for rate College Hire- TY Healy PhysicianJenni FOY Released Date Time- 11/06/09 1448 Procedure Note Ty Foy S - 11/06/2009 Sinus bradycardia Normal ECG except for rate College Hire- TY Healy Physician- TY FOY Released Date Time- 11/06/09 1448 Ty Griffiths DO [facility] STAR CARD HISTORICAL Final Result * MR UP EXT ANY JNT W/O CONT GC (09/01/2009 8:50 AM EDT) Anatomical Region Laterality Modality Other 09/01/2009 8:50 AM EDT Narrative 09/01/2009 11:23 AM EDT MRI of the right shoulder- Indications/History- Right shoulder pain. Technique- Long and short imaging parameters were obtained in the sagittal, coronal and axial orientation. Examination is limited by patient motion. Grossly there appears to be global tendinopathy of the supraspinatus tendon but no evidence of discrete, full-thickness tear. The tendon is thickened with abnormal signal. The remainder of the rotator cuff is grossly intact. Axial images demonstrate the biceps tendon to be in its normal groove and covered by the transverse ligament. The attachment sites on the coracoid process and superior labrum are visualized and are intact. The labrum is grossly within normal limits on this nonarthrographic exam. There are early degenerative changes of the AC joint. Joint space narrowing and osteophyte formation are noted. There is fluid in the subacromial- subdeltoid bursa. This is more than expected physiologically and consistent with a joan bursitis. Impression- 1. Tendinopathy of the supraspinatous tendon but no evidence of discrete tear. 2. Subacromial-subdeltoid bursitis. 3. Degenerative changes of the AC joint. College Hire- LISSETTE Healy Physician- MEMO TONG M.D. Released Date Time- 09/01/09 1124 Procedure Note Memo Tong MD - 09/01/2009 MRI of the right shoulder- Indications/History- Right shoulder pain. Technique- Long and short imaging parameters were obtained in the sagittal, coronal and axial orientation. Examination is limited by patient motion. Grossly there appears to be global tendinopathy of the supraspinatus tendon but no evidence of discrete, full-thickness tear. The tendon is thickened with abnormal signal. The remainder of the rotator cuff is grossly intact. Axial images demonstrate the biceps tendon to be in its normal groove and covered by the transverse ligament. The attachment sites on the coracoid process and superior labrum are visualized and are intact. The labrum is grossly within normal limits on this nonarthrographic exam. There are early degenerative changes of the AC joint. Joint space narrowing and osteophyte formation are noted. There is fluid in the subacromial- subdeltoid bursa. This is more than expected physiologically and consistent with a joan bursitis. Impression- 1. Tendinopathy of the supraspinatous tendon but no evidence of discrete tear. 2. Subacromial-subdeltoid bursitis. 3. Degenerative changes of the AC joint. College Hire- LISSETTE Healy Physician- MEMO TONG M.D. Released Date Time- 09/01/09 1124 Marcela Ding MD [facility] GARRICK Thomas Final Result * XR BILAT SHOULDER GC (08/24/2009 3:09 PM EDT) Anatomical Region Laterality Modality Other 08/24/2009 3:09 PM EDT Narrative 08/24/2009 7:13 PM EDT Shoulders. Indication- Bilateral shoulder pain. History- Same. Three views of both shoulders are presented for evaluation. On the right there is glenohumeral disease. Osteophyte formation and sclerosis are noted. There is also hypertrophy on the right about the insertion site of the supraspinatus concerning for rotator cuff disease. This can be further evaluated if clinically indicated with MRI. By contrast, the left shoulder has less prominent sclerosis at the supraspinatus insertion site. Impression- 1. Glenohumeral disease on the right. 2. Findings consistent with supraspinatus disease, more prominent radiographically on the right than the left. College Hiredamaso Healy Physician- MEMO TONG M.D. Released Date Time- 08/24/091914 Procedure Note Memo Tong MD - 08/24/2009 Shoulders. Indication- Bilateral shoulder pain. History- Same. Three views of both shoulders are presented for evaluation. On the right there is glenohumeral disease. Osteophyte formation and sclerosis are noted. There is also hypertrophy on the right about the insertion site of the supraspinatus concerning for rotator cuff disease. This can be further evaluated if clinically indicated with MRI. By contrast, the left shoulder has less prominent sclerosis at the supraspinatus insertion site. Impression- 1. Glenohumeral disease on the right. 2. Findings consistent with supraspinatus disease, more prominent radiographically on the right than the left. Uli Gandara- MEMO TONG M.D. Released Date Time- 08/24/091914 Marcela Ding MD IMG [facility] GARRICK RAD CHARANICA L Final Result * SCANNED ECG (08/03/2009 12:00 AM EDT) Only the most recent of2 resultswithin the time period is included. Anatomical Region Laterality Modality Other Narrative 08/03/2009 6:51 PM EDT Ordered by an unspecified provider. Transcriptions Unknown, Unknown - 08/03/2009 2:51 PM EDT us Unknown Unknown [facility] Final Result * MR ORBIT,FACE & NECK W & W/O GC (06/26/2009 8:52 AM EDT) Anatomical Region Laterality Modality Other 06/26/2009 8:52 AM EDT Narrative 06/26/2009 12:48 PM EDT MRI of the temporal bones with contrast. History- Unilateral hearing loss. Technical factors- 15 mL of OptiMARK was administered. Imaging was performed through the brain with special attention to the internal auditory canals including high-resolution images. Findings- The 7th and 8th cranial nerves are normal in appearance. Specifically, there are no masses. There are no areas of abnormal enhancement after contrast administration suspect for acoustic neuroma. There is some diffuse atrophy of the cerebellum which is nonspecific. Impression- No evidence of acoustic neuroma. Diffuse cerebellar hemisphere atrophy of uncertain etiology. College Hire- RADHA Healy Physician- CEASAR MARROQUIN MD Released Date Time- 06/26/09 1604 Procedure Note Ceasar Marroquin III - 07/04/2009 MRI of the temporal bones with contrast. History- Unilateral hearing loss. Technical factors- 15 mL of OptiMARK was administered. Imaging was performed through the brain with special attention to the internal auditory canals including high-resolution images. Findings- The 7th and 8th cranial nerves are normal in appearance. Specifically, there are no masses. There are no areas of abnormal enhancement after contrast administration suspect for acoustic neuroma. There is some diffuse atrophy of the cerebellum which is nonspecific. Impression- No evidence of acoustic neuroma. Diffuse cerebellar hemisphere atrophy of uncertain etiology. College Hire- RADHA CEE Reading Physician- CEASAR MARROQUIN MD Released Date Time- 06/26/09 1604 Wang Ospina [facility] RAD HISTORICAL Fin al Result * MR LOW EXT ANY JNT W/O CONT GC (09/19/2008 1:40 PM EDT) Anatomical Region Laterality Modality Other 09/19/2008 1:40 PM EDT Narrative 09/19/2008 7:42 PM EDT MRI left knee. History- Pain. Routine imaging was done. No evidence of meniscal tear. In the lateral aspect of the posterior horn of the medial meniscus, there is a triangular area that tracks marrow fat on all pulse sequences and represents a meniscal ossicle. These can be developmental or acquired. They may or may not be symptomatic. The cartilage of the medial and lateral compartments is maintained. Minimal blistering and ulceration in the patellar articular cartilage is present. There is a physiologic amount of joint fluid. The cruciate and collateral ligament complexes are normal. Marrow signal is normal. Patellar and quadriceps tendons are intact. Impression- Negative study except for minimal chondromalacia patella and incidentally noted ossicle in the lateral aspect of the posterior horn of the medial meniscus, also apparent on plain films. College Hire- PETTY LEVIN Reading Physician- LEONARDO PUCKETT MD Released Date Time- 09/19/082050 Procedure Note Leonardo Puckett - 06/22/2009 MRI left knee. History- Pain. Routine imaging was done. No evidence of meniscal tear. In the lateral aspect of the posterior horn of the medial meniscus, there is a triangular area that tracks marrow fat on all pulse sequences and represents a meniscal ossicle. These can be developmental or acquired. They may or may not be symptomatic. The cartilage of the medial and lateral compartments is maintained. Minimal blistering and ulceration in the patellar articular cartilage is present. There is a physiologic amount of joint fluid. The cruciate and collateral ligament complexes are normal. Marrow signal is normal. Patellar and quadriceps tendons are intact. Impression- Negative study except for minimal chondromalacia patella and incidentally noted ossicle in the lateral aspect of the posterior horn of the medial meniscus, also apparent on plain films. College Hire- PETTY Healy Physician- LEONARDO PUCKETT MD Released Date Time- 09/19/082050 Germán Bradley MD [facility] RAD HISTORICAL F inal Result * XR LOWER LEG TIBIA/FIBULA GC (09/09/2008 1:55 PM EDT) Anatomical Region Laterality Modality Other 09/09/2008 1:55 PM EDT Narrative 09/09/2008 6:39 PM EDT Examinations of the left tibia and fibula Indications- Pain. History- Pain. Two views of the left tibia and fibula demonstrate no fractures. There are no malalignments. The cortical margins are intact. Impression- No fractures. College Hire- PETTY LIVINGSTON Reading Physician- MEMO TONG M.D. Released Date Time- 09/09/081949 Procedure Note Memo Tong - 06/22/2009 Examinations of the left tibia and fibula Indications- Pain. History- Pain. Two views of the left tibia and fibula demonstrate no fractures. There are no malalignments. The cortical margins are intact. Impression- No fractures. Uli Gandara- MEMO TONG M.D. Released Date Time- 09/09/081949 Germán Bradley MD [facility] RAD HISTORICAL F inal Result * XR KNEE GC (09/09/2008 1:55 PM EDT) Anatomical Region Laterality Modality Other 09/09/2008 1:55 PM EDT Narrative 09/09/2008 6:40 PM EDT Examinations of the left knee Indications- Left knee pain. History- Left knee pain. Four views of the left knee demonstrate no fractures. There are no malalignments. The joint spaces are grossly intact. Impression- No fractures visualized. Note is made of an effusion. Is there concern for internal derangement? If so, MRI evaluation may be warranted. Uli TONG M.D. Released Date Time- 09/09/081949 Procedure Note Memo Tong - 06/22/2009 Examinations of the left knee Indications- Left knee pain. History- Left knee pain. Four views of the left knee demonstrate no fractures. There are no malalignments. The joint spaces are grossly intact. Impression- No fractures visualized. Note is made of an effusion. Is there concern for internal derangement? If so, MRI evaluation may be warranted. College Hire- PETTY Haely Physician- MEMO TONG M.D. Released Date Time- 09/09/081949 Germán Bradley MD [facility] HISTORICAL F inal Result * HOLTER MONITOR PANEL (11/20/2007 9:00 AM EDT) Anatomical Region Laterality Modality Other 11/20/2007 9:00 AM EDT Narrative 12/04/2007 9:06 AM EDT INDICATIONS- bradycardia LENGTH OF TAPE 23 HRS 44 MINS MEDICATION- SLOWEST RATE 38 FASTEST RATE 110 AVERAGE RATE 59 TOTAL PVC'S 3 TOTAL PAC'S 4 VENTRICULAR TACHYCARDIA SUPRAVENTRICULAR TACHYCARDIA Number of episodes 0 Number of episodes 0 Longest run beats Longest run beats Fastest rate Fastest rate OTHER ARRHYTHMIAS- See below. ST T WAVE CHANGES- See below. SYMPTOMS- See below. IMPRESSION- The underlying rhythm is sinus at an average of 59 beats per minute ranging from 38 to 110 beats per minute. There were 4 isolated PAC's there were 3 isolated PVC's. The diary was blank. Carolina Campbell [id number] College Hire- RICK Healy Physician- ISAC BALLARD MD Released Date Time- 12/04/07 1013 Procedure Note Isac Ballard - 06/22/2009 INDICATIONS- bradycardia LENGTH OF TAPE 23 HRS 44 MINS MEDICATION- SLOWEST RATE 38 FASTEST RATE 110 AVERAGE RATE 59 TOTAL PVC'S 3 TOTAL PAC'S 4 VENTRICULAR TACHYCARDIA SUPRAVENTRICULAR TACHYCARDIA Number of episodes 0 Number of episodes 0 Longest run beats Longest run beats Fastest rate Fastest rate OTHER ARRHYTHMIAS- See below. ST T WAVE CHANGES- See below. SYMPTOMS- See below. IMPRESSION- The underlying rhythm is sinus at an average of 59 beats per minute ranging from 38 to 110 beats per minute. There were 4 isolated PAC's there were 3 isolated PVC's. The diary was blank. Carolina Campbell. 12-04-07 College Hire- RICK Healy Physician- ISAC BALLARD MD Released Date Time- 12/04/07 1013 Finesse Moore MD [facility] STAR CARD HISTORIC AL Final Result * XR KNEE (04/02/2007 4:00 PM EST) Anatomical Region Laterality Modality Other 04/02/2007 4:00 PM EST Narrative 04/02/2007 4:26 PM EST PER /JESÚS RM7 Left knee 4 views, 04/02/2007 History- Pain following a twisting injury. Findings- There is no acute fracture or subluxation. Joint spaces and articular margins are intact. No definite joint effusion. Impression- Normal. College Hire- JANA SARKAR Reading Radiologist- PINO ALBARADO Released Date Time- 04/02/07 1633 Procedure Note Pino Albarado - 06/21/2009 PER /JESÚS RM7 Left knee 4 views, 04/02/2007 History- Pain following a twisting injury. Findings- There is no acute fracture or subluxation. Joint spaces and articular margins are intact. No definite joint effusion. Impression- Normal. College Hire- JANA Healy Radiologist- PINO ALBARADO Released Date Time- 04/02/07 1633 David Palma MD [facility] RAD HISTORICAL F inal Result * XR ANKLE (12/31/2005 6:45 PM EDT) Anatomical Region Laterality Modality Other 12/31/2005 6:45 PM EDT Narrative 01/01/2006 1:38 AM EDT Three-view right ankle- 12/31/2005 Indication- 35-year-old male with unspecified right ankle injury and pain. Findings- There is mild soft tissue thickness over both medial and lateral malleoli. No cortical disruptions or fracture planes seen. Mortise joint is intact. Impression- No fracture or dislocation, ankle joint. College Hire- DALE VELÁSQUEZ Reading Radiologist- RADHA PORTER MD. Released Date Time- 01/01/06 0914 Procedure Note Rashaun Radha Khan - 06/21/2009 Three-view right ankle- 12/31/2005 Indication- 35-year-old male with unspecified right ankle injury and pain. Findings- There is mild soft tissue thickness over both medial and lateral malleoli. No cortical disruptions or fracture planes seen. Mortise joint is intact. Impression- No fracture or dislocation, ankle joint. College Hire- DALE Healy Radiologist- RADHA PORTER MD. Released Date Time- 01/01/06913 Robbie Eldridge MD [facility] HISTORICAL Fi nal Result * XR FOOT & TOES (12/31/2005 6:45 PM EDT) Anatomical Region Laterality Modality Other 12/31/2005 6:45 PM EDT Narrative 01/01/2006 1:37 AM EDT Three view right foot, 12/31/2005. Comparison- Report from 11/25/2000 reviewed. Original films are off site at the time of dictation and not available. Indication- 35-year-old male with unspecified ankle injury. Findings- No discrete cortical or osseous abnormality present. Medial first metatarsal sesamoid bone is bipartite. Articular joint spaces and alignment are normal. No localized soft tissue swelling. Impression- 1. Negative exam. College Hire- ANGELA SMITH Reading Radiologist- RADHA PORTER MD. Released Date Time- 01/01/06913 Procedure Note Radha Porter - 06/21/2009 Three view right foot, 12/31/2005. Comparison- Report from 11/25/2000 reviewed. Original films are off site at the time of dictation and not available. Indication- 35-year-old male with unspecified ankle injury. Findings- No discrete cortical or osseous abnormality present. Medial first metatarsal sesamoid bone is bipartite. Articular joint spaces and alignment are normal. No localized soft tissue swelling. Impression- 1. Negative exam. College Hire- ANGELA SMITH Reading Radiologist- RADHA PORTER MD. Released Date Time- 01/01/06913 Robbie Eldridge MD [facility] [employer] HISTORICAL Fi nal Result * XR SCAPULA (05/02/2004 2:06 PM EST) Anatomical Region Laterality Modality Other 05/02/2004 2:06 PM EST Narrative 05/04/2004 8:44 AM EST Right scapula, 05/02/04 History- Injury. Two views obtained of the scapula are unremarkable. No definite fracture is identified. Procedure Note Tacho Holley - 06/20/2009 Right scapula, 05/02/04 History- Injury. Two views obtained of the scapula are unremarkable. No definite fracture is identified. Dustin Mcintyre MD [facility] [employer] HISTO RICAL Final Result * XR NOSE (05/02/2004 2:06 PM EST) Anatomical Region Laterality Modality Other 05/02/2004 2:06 PM EST Narrative 05/04/2004 8:45 AM EST Nasal bones, 05/02/04 History- Injury. No definite nasal bone fracture is seen. The septum is midline. Procedure Note Tacho Holley - 06/20/2009 Nasal bones, 05/02/04 History- Injury. No definite nasal bone fracture is seen. The septum is midline. Dustin Mcintyre MD [facility] Final Result Visit Diagnoses Diagnosis Start Date Epilepsy (HCC) Unspecified epilepsy without mention of intractable epilepsy 04/20/2009 Bipolar affective disorder (HCC) Bipolar disorder, unspecified 04/20/2009 Depression, major Major depressive disorder, single episode, unspecified 04/20/2009 Asthma Unspecified asthma 04/20/2009 COPD (chronic obstructive pulmonary disease) (HCC) Chronic airway obstruction, not elsewhere classified 04/20/2009 Hearing loss in left ear Unspecified hearing loss 04/20/2009 GERD (gastroesophageal reflux disease) Esophageal reflux 04/20/2009 Shoulder pain Pain in joint, shoulder region 06/15/2009 Bipolar affective disorder (HCC) Bipolar disorder, unspecified 06/15/2009 Rotator cuff syndrome Disorders of bursae and tendons in shoulder region, unspecified 07/25/2009 Epilepsy (HCC) Unspecified epilepsy without mention of intractable epilepsy 07/25/2009 Encounter for long-term (current) use of other medications 07/25/2009 Shoulder pain Pain in joint, shoulder region 08/24/2009 Rotator cuff syndrome Disorders of bursae and tendons in shoulder region, unspecified 09/27/2009 AR (allergic rhinitis) Allergic rhinitis, cause unspecified 09/27/2009 GERD (gastroesophageal reflux disease) Esophageal reflux 09/27/2009 AR (allergic rhinitis) Allergic rhinitis, cause unspecified 10/25/2009 GERD (gastroesophageal reflux disease) Esophageal reflux 10/25/2009 Rotator cuff syndrome Disorders of bursae and tendons in shoulder region, unspecified 10/25/2009 Bipolar affective disorder (HCC) Bipolar disorder, unspecified 10/25/2009 Asthma Unspecified asthma 10/25/2009 Epilepsy (HCC) Unspecified epilepsy without mention of intractable epilepsy 10/25/2009 PUD (peptic ulcer disease) Peptic ulcer, unspecified site, unspecified as acute or chronic, without mention of hemorrhage, perforation, or obstruction 11/07/2009 Bipolar affective disorder (HCC) Bipolar disorder, unspecified 11/07/2009 Asthma Unspecified asthma 11/07/2009 AR (allergic rhinitis) Allergic rhinitis, cause unspecified 11/07/2009 Rotator cuff syndrome Disorders of bursae and tendons in shoulder region, unspecified 12/07/2009 Asthma Unspecified asthma 12/21/2009 COPD (chronic obstructive pulmonary disease) (HCC) Chronic airway obstruction, not elsewhere classified 01/16/2010 Osteoarthritis of knee Osteoarthrosis, unspecified whether generalized or localized, lower leg 01/16/2010 Encounter for long-term (current) use of other medications 04/30/2010 Epilep NOS w/o intr epil Unspecified epilepsy without mention of intractable epilepsy 04/30/2010 Bipolar disorder NOS Bipolar disorder, unspecified 04/30/2010 Epilepsy (HCC) Unspecified epilepsy without mention of intractable epilepsy 04/30/2010 Bipolar affective disorder (HCC) Bipolar disorder, unspecified 04/30/2010 Epilepsy (HCC) Unspecified epilepsy without mention of intractable epilepsy 05/02/2010 Bipolar affective disorder (HCC) Bipolar disorder, unspecified 05/02/2010 Asthma Unspecified asthma 05/02/2010 COPD (chronic obstructive pulmonary disease) (HCC) Chronic airway obstruction, not elsewhere classified 05/02/2010 GERD (gastroesophageal reflux disease) Esophageal reflux 05/02/2010 Osteoarthritis Osteoarthrosis, unspecified whether generalized or localized, unspecified site 05/02/2010 Asthma Unspecified asthma 07/31/2010 Bronchitis Bronchitis, not specified as acute or chronic 07/31/2010 Rotator cuff syndrome Disorders of bursae and tendons in shoulder region, unspecified 07/31/2010 Lipid screening Screening for lipoid disorders 11/21/2010 Epilepsy (HCC) Unspecified epilepsy without mention of intractable epilepsy 11/21/2010 Encounter for long-term (current) use of medications Encounter for long-term (current) use of other medications 11/21/2010 Bipolar affective disorder (HCC) Bipolar disorder, unspecified 11/21/2010 Epilepsy (HCC) Unspecified epilepsy without mention of intractable epilepsy 11/21/2010 Lipid screening Screening for lipoid disorders 11/21/2010 Encounter for long-term (current) use of medications Encounter for long-term (current) use of other medications 11/21/2010 Fibula fracture Closed fracture of unspecified part of fibula 12/12/2010 Bipolar affective disorder (HCC) Bipolar disorder, unspecified 12/14/2010 Epilepsy (HCC) Unspecified epilepsy without mention of intractable epilepsy 12/14/2010 Elevated glucose Other abnormal glucose 12/19/2010 Bipolar affective disorder (HCC) Bipolar disorder, unspecified 12/19/2010 Epilepsy (HCC) Unspecified epilepsy without mention of intractable epilepsy 12/19/2010 Asthma Unspecified asthma 12/19/2010 AR (allergic rhinitis) Allergic rhinitis, cause unspecified 12/19/2010 GERD (gastroesophageal reflux disease) Esophageal reflux 12/19/2010 Arthritis shoulder and knee Arthropathy, unspecified, site unspecified 12/19/2010 Elevated glucose Other abnormal glucose 12/19/2010 AR (allergic rhinitis) Allergic rhinitis, cause unspecified 01/11/2011 AR (allergic rhinitis) Allergic rhinitis, cause unspecified 03/18/2011 Bipolar affective disorder (HCC) Bipolar disorder, unspecified 03/18/2011 Epilepsy (HCC) Unspecified epilepsy without mention of intractable epilepsy 03/18/2011 Arthritis shoulder and knee Arthropathy, unspecified, site unspecified 03/18/2011 GERD (gastroesophageal reflux disease) Esophageal reflux 03/18/2011 Asthma Unspecified asthma 03/18/2011 Osteoarthritis Osteoarthrosis, unspecified whether generalized or localized, unspecified site 04/17/2011 Asthma Unspecified asthma 05/03/2011 Side pain Abdominal pain, unspecified site 05/03/2011 Abdominal wall pain Abdominal pain, unspecified site 05/03/2011 Bipolar affective disorder (HCC) Bipolar disorder, unspecified 05/03/2011 Epilepsy (HCC) Unspecified epilepsy without mention of intractable epilepsy 05/03/2011 Bipolar affective disorder (HCC) Bipolar disorder, unspecified 06/03/2011 Epilepsy (HCC) Unspecified epilepsy without mention of intractable epilepsy 06/03/2011 Bipolar affective disorder (HCC) Bipolar disorder, unspecified 06/03/2011 Asthma Unspecified asthma 06/03/2011 Epilepsy (HCC) Unspecified epilepsy without mention of intractable epilepsy 06/03/2011 Osteoarthritis Osteoarthrosis, unspecified whether generalized or localized, unspecified site 06/11/2011 Asthma Unspecified asthma 06/11/2011 AR (allergic rhinitis) Allergic rhinitis, cause unspecified 06/11/2011 Epilepsy (HCC) Unspecified epilepsy without mention of intractable epilepsy 06/11/2011 Arthritis shoulder and knee Arthropathy, unspecified, site unspecified 06/11/2011 GERD (gastroesophageal reflux disease) Esophageal reflux 06/11/2011 TMJ (dislocation of temporomandibular joint) Closed dislocation of jaw 06/28/2011 Jaw pain Unspecified disease of the jaws 06/28/2011 Dental decay Unspecified dental caries 06/28/2011 Bipolar affective disorder (HCC) Bipolar disorder, unspecified 06/28/2011 Anxiety Anxiety state, unspecified 06/28/2011 TMJ (dislocation of temporomandibular joint) Closed dislocation of jaw 06/28/2011 Jaw pain Unspecified disease of the jaws 06/28/2011 Dental decay Unspecified dental caries 06/28/2011 Carpal tunnel syndrome of right wrist Carpal tunnel syndrome 08/07/2011 Rotator cuff injury Injury, other and unspecified, shoulder and upper arm 08/07/2011 Osteoarthritis Osteoarthrosis, unspecified whether generalized or localized, unspecified site 08/23/2011 Asthma Unspecified asthma 08/23/2011 Epilepsy (HCC) Unspecified epilepsy without mention of intractable epilepsy 08/23/2011 Arthritis shoulder and knee Arthropathy, unspecified, site unspecified 08/23/2011 GERD (gastroesophageal reflux disease) Esophageal reflux 08/23/2011 Bipolar affective disorder (HCC) Bipolar disorder, unspecified 08/23/2011 CTS (carpal tunnel syndrome) Carpal tunnel syndrome 08/23/2011 Contusion of third finger, right Contusion of finger 10/01/2011 Left elbow contusion Contusion of elbow 10/01/2011 Fall Unspecified fall 10/01/2011 GERD (gastroesophageal reflux disease) Esophageal reflux 10/17/2011 Bipolar affective disorder (HCC) Bipolar disorder, unspecified 12/02/2011 Encounter for long-term (current) use of medications Encounter for long-term (current) use of other medications 12/02/2011 Knee pain, left Pain in joint, lower leg 12/02/2011 Epilepsy (HCC) Unspecified epilepsy without mention of intractable epilepsy 12/02/2011 Bipolar affective disorder (HCC) Bipolar disorder, unspecified 12/02/2011 Asthma Unspecified asthma 12/02/2011 COPD (chronic obstructive pulmonary disease) (HCC) Chronic airway obstruction, not elsewhere classified 12/02/2011 Anxiety Anxiety state, unspecified 12/02/2011 Encounter for long-term (current) use of medications Encounter for long-term (current) use of other medications 12/02/2011 Epilepsy (HCC) Unspecified epilepsy without mention of intractable epilepsy 01/17/2012 Arthritis shoulder and knee Arthropathy, unspecified, site unspecified 01/17/2012 Epilepsy (HCC) Unspecified epilepsy without mention of intractable epilepsy 02/28/2012 Bipolar affective disorder (HCC) Bipolar disorder, unspecified 02/28/2012 Abdominal pain Abdominal pain, unspecified site 02/28/2012 Epilepsy (HCC) Unspecified epilepsy without mention of intractable epilepsy 02/28/2012 Abdominal pain Abdominal pain, unspecified site 02/28/2012 Bipolar affective disorder (HCC) Bipolar disorder, unspecified 02/28/2012 Asthma Unspecified asthma 02/28/2012 Knee pain, left Pain in joint, lower leg 02/28/2012 Chronic knee pain Pain in joint, lower leg 04/05/2012 Epilepsy (HCC) Unspecified epilepsy without mention of intractable epilepsy 10/09/2012 Generalized anxiety disorder 10/09/2012 Epilepsy (HCC) Unspecified epilepsy without mention of intractable epilepsy 10/09/2012 GERD (gastroesophageal reflux disease) Esophageal reflux 10/09/2012 Asthma Unspecified asthma 10/09/2012 Bipolar affective disorder (HCC) Bipolar disorder, unspecified 10/09/2012 Generalized anxiety disorder 10/09/2012 ED (erectile dysfunction) Impotence of organic origin 10/09/2012 GERD (gastroesophageal reflux disease) Esophageal reflux 10/26/2012 Knee pain, left Pain in joint, lower leg 10/31/2012 Epilepsy (HCC) Unspecified epilepsy without mention of intractable epilepsy 11/02/2012 LBP (low back pain) Lumbago 11/02/2012 Neck pain Cervicalgia 11/02/2012 Shoulder pain Pain in joint, shoulder region 11/02/2012 JB (generalized anxiety disorder) Generalized anxiety disorder 11/02/2012 Epilepsy (HCC) Unspecified epilepsy without mention of intractable epilepsy 11/02/2012 Scoliosis Scoliosis (and kyphoscoliosis), idiopathic 11/05/2012 Back pain Backache, unspecified 11/05/2012 Scoliosis Scoliosis (and kyphoscoliosis), idiopathic 11/09/2012 Back pain Backache, unspecified 11/09/2012 Rotator cuff syndrome Bilateral Disorders of bursae and tendons in shoulder region, unspecified 11/09/2012 Rotator cuff syndrome Disorders of bursae and tendons in shoulder region, unspecified 11/18/2012 Seborrhea 12/02/2012 Cervical lymphadenitis Lymphadenitis, unspecified, except mesenteric 12/02/2012 Rotator cuff syndrome of left shoulder Disorders of bursae and tendons in shoulder region, unspecified 12/16/2012 Need for influenza vaccination Need for prophylactic vaccination and inoculation against influenza 12/16/2012 Foot sprain Sprain of foot, unspecified site 12/20/2012 Sprain of foot, unspecified site 12/20/2012 Rotator cuff syndrome of left shoulder Disorders of bursae and tendons in shoulder region, unspecified 12/25/2012 Infected inclusion cyst 01/08/2013 RLS (restless legs syndrome) Restless legs syndrome (RLS) 01/08/2013 Rotator cuff (capsule) sprain 01/18/2013 GERD (gastroesophageal reflux disease) Esophageal reflux 02/27/2013 Shoulder pain Pain in joint, shoulder region 03/02/2013 Bipolar affective disorder (HCC) Bipolar disorder, unspecified 03/05/2013 GERD (gastroesophageal reflux disease) Esophageal reflux 03/05/2013 JB (generalized anxiety disorder) Generalized anxiety disorder 03/05/2013 Arthralgia of shoulder region, right Pain in joint, shoulder region 03/15/2013 Arthritis of elbow, right Unspecified arthropathy, upper arm 03/15/2013 GERD (gastroesophageal reflux disease) Esophageal reflux 03/15/2013 RLS (restless legs syndrome) Restless legs syndrome (RLS) 03/15/2013 Epilepsy (HCC) Unspecified epilepsy without mention of intractable epilepsy 03/15/2013 Bipolar affective disorder (HCC) Bipolar disorder, unspecified 03/15/2013 Generalized anxiety disorder 03/15/2013 Asthma Unspecified asthma 03/15/2013 JB (generalized anxiety disorder) Generalized anxiety disorder 04/29/2013 Back strain Sprain of unspecified site of back 04/29/2013 Well adult exam Routine general medical examination at a health care facility 05/31/2013 Epilepsy (HCC) Unspecified epilepsy without mention of intractable epilepsy 05/31/2013 COPD (chronic obstructive pulmonary disease) (HCC) Chronic airway obstruction, not elsewhere classified 05/31/2013 FHx: lung cancer Family history of malignant neoplasm of trachea, bronchus, and lung 05/31/2013 Cough 05/31/2013 Well adult exam Routine general medical examination at a health care facility 05/31/2013 COPD (chronic obstructive pulmonary disease) (HCC) Chronic airway obstruction, not elsewhere classified 05/31/2013 Epilepsy (HCC) Unspecified epilepsy without mention of intractable epilepsy 05/31/2013 GERD (gastroesophageal reflux disease) Esophageal reflux 05/31/2013 JB (generalized anxiety disorder) Generalized anxiety disorder 05/31/2013 Atypical moles Benign neoplasm of skin, site unspecified 05/31/2013 FHx: prostate cancer Family history of malignant neoplasm of prostate 05/31/2013 FHx: lung cancer Family history of malignant neoplasm of trachea, bronchus, and lung 05/31/2013 Cough 05/31/2013 Tobacco abuse Tobacco use disorder 05/31/2013 Asthma Unspecified asthma 07/07/2013 Generalized anxiety disorder 07/07/2013 Sensorineural hearing loss, asymmetrical 07/23/2013 Abnormal auditory perception, unspecified 07/23/2013 Back pain Backache, unspecified 08/26/2013 Generalized anxiety disorder 08/30/2013 Epilepsy (HCC) Unspecified epilepsy without mention of intractable epilepsy 10/13/2013 Hearing loss in left ear Unspecified hearing loss 10/13/2013 Nicotine dependence Tobacco use disorder 10/13/2013 Restless leg syndrome Restless legs syndrome (RLS) 10/13/2013 Hyperlipidemia LDL goal < 100 Other and unspecified hyperlipidemia 10/25/2013 Epilepsy (HCC) Unspecified epilepsy without mention of intractable epilepsy 10/25/2013 Screening PSA (prostate specific antigen) Special screening for malignant neoplasm of prostate 10/25/2013 Family history of prostate cancer Family history of malignant neoplasm of prostate 10/25/2013 FHx: prostate cancer Family history of malignant neoplasm of prostate 10/25/2013 Other nonspecific abnormal serum enzyme levels 10/25/2013 Epilepsy (HCC) Unspecified epilepsy without mention of intractable epilepsy 10/25/2013 Asthma, unspecified asthma severity, uncomplicated 10/25/2013 Generalized anxiety disorder 10/25/2013 JB (generalized anxiety disorder) Generalized anxiety disorder 10/25/2013 GERD (gastroesophageal reflux disease) Esophageal reflux 10/25/2013 Family history of prostate cancer Family history of malignant neoplasm of prostate 10/25/2013 Hyperlipidemia LDL goal < 100 Other and unspecified hyperlipidemia 10/25/2013 FHx: prostate cancer Family history of malignant neoplasm of prostate 10/25/2013 Hearing loss in left ear Unspecified hearing loss 10/25/2013 Restless leg syndrome Restless legs syndrome (RLS) 10/25/2013 Right knee pain Pain in joint, lower leg 10/25/2013 Recurrent right knee instability Other joint derangement, not elsewhere classified, lower leg 10/25/2013 Screening PSA (prostate specific antigen) Special screening for malignant neoplasm of prostate 10/25/2013 GERD (gastroesophageal reflux disease) Esophageal reflux 10/29/2013 Knee pain, right Pain in joint, lower leg 11/01/2013 Right knee pain Pain in joint, lower leg 11/01/2013 Recurrent right knee instability Other joint derangement, not elsewhere classified, lower leg 11/01/2013 Wrist laceration, left, initial encounter 11/12/2013 Open wound of wrist, without mention of complication 11/12/2013 Laceration of wrist, left, subsequent encounter 11/19/2013 Esophageal reflux 01/24/2014 Dyspepsia and other specified disorders of function of stomach 01/24/2014 Dysphagia, unspecified(787.20) Dysphagia, unspecified 01/24/2014 Chronic maxillary sinusitis 02/04/2014 Allergic rhinitis, cause unspecified 03/08/2014 Epilepsy (HCC) Unspecified epilepsy without mention of intractable epilepsy 03/08/2014 Hearing loss in left ear Unspecified hearing loss 03/08/2014 GERD (gastroesophageal reflux disease) Esophageal reflux 03/08/2014 JB (generalized anxiety disorder) Generalized anxiety disorder 03/08/2014 FHx: prostate cancer Family history of malignant neoplasm of prostate 03/08/2014 FHx: lung cancer Family history of malignant neoplasm of trachea, bronchus, and lung 03/08/2014 Nicotine dependence Tobacco use disorder 03/08/2014 Restless leg syndrome Restless legs syndrome (RLS) 03/08/2014 Hyperlipidemia LDL goal < 100 Other and unspecified hyperlipidemia 03/08/2014 GERD (gastroesophageal reflux disease) Esophageal reflux 03/08/2014 Asthma, unspecified asthma severity, uncomplicated 03/08/2014 Epilepsy (HCC) Unspecified epilepsy without mention of intractable epilepsy 03/08/2014 Generalized anxiety disorder 03/08/2014 Restless leg syndrome Restless legs syndrome (RLS) 03/08/2014 Wheezing 03/18/2014 SOB (shortness of breath) Shortness of breath 03/18/2014 Wheezing 03/23/2014 SOB (shortness of breath) Shortness of breath 03/23/2014 Healthcare maintenance Routine general medical examination at a health care facility 2014 Epilepsy (HCC) Unspecified epilepsy without mention of intractable epilepsy 2014 Epilepsy (HCC) Unspecified epilepsy without mention of intractable epilepsy 2014 Generalized anxiety disorder 2014 Hyperlipidemia LDL goal < 100 Other and unspecified hyperlipidemia 2014 Restless leg syndrome Restless legs syndrome (RLS) 2014 GERD (gastroesophageal reflux disease) Esophageal reflux 2014 Healthcare maintenance Routine general medical examination at a health care facility 2014 COPD (chronic obstructive pulmonary disease) ([facility]) Chronic airway obstruction, not elsewhere classified 2014 Acute bronchitis 05/18/2014 Acute sinusitis Acute sinusitis, unspecified 05/18/2014 COPD (chronic obstructive pulmonary disease) ([facility]) Chronic airway obstruction, not elsewhere classified 05/18/2014 Hypernatremia Hyperosmolality and/or hypernatremia 05/20/2014 Pre-op testing Preoperative examination, unspecified 05/20/2014 Hypernatremia Hyperosmolality and/or hypernatremia 05/20/2014 Pre-op testing Preoperative examination, unspecified 05/20/2014 Bronchitis Bronchitis, not specified as acute or chronic 05/20/2014 COPD exacerbation ([facility]) Obstructive chronic bronchitis with exacerbation 05/20/2014 Asthma exacerbation, moderate persistent 05/20/2014 Chest wall pain Painful respiration 05/20/2014 Vomiting Vomiting alone 05/20/2014 Hypernatremia Hyperosmolality and/or hypernatremia 05/20/2014 Asthma, unspecified asthma severity, uncomplicated 05/21/2014 COPD (chronic obstructive pulmonary disease) ([facility]) Chronic airway obstruction, not elsewhere classified 05/21/2014 Pre-op exam Preoperative examination, unspecified 06/08/2014 Arthritis of knee Unspecified arthropathy, lower leg 06/08/2014 Folliculitis Other specified disease of hair and hair follicles 06/08/2014 Epilepsy ([facility]) Unspecified epilepsy without mention of intractable epilepsy 06/08/2014 Restless leg syndrome Restless legs syndrome (RLS) 06/08/2014 JB (generalized anxiety disorder) Generalized anxiety disorder 06/08/2014 Hearing loss in left ear Unspecified hearing loss 06/08/2014 GERD (gastroesophageal reflux disease) Esophageal reflux 06/08/2014 Tear of medial cartilage or meniscus of knee, current 06/21/2014 Generalized anxiety disorder 07/13/2014 Other epilepsy without status epilepticus, not intractable (HCC) 11/04/2014 Hyperlipidemia LDL goal < 100 Other and unspecified hyperlipidemia 11/04/2014 Generalized anxiety disorder 11/04/2014 Asthma, unspecified asthma severity, uncomplicated 11/04/2014 COPD (chronic obstructive pulmonary disease) ([facility]) Chronic airway obstruction, not elsewhere classified 11/04/2014 Restless leg syndrome Restless legs syndrome (RLS) 11/04/2014 Gastroesophageal reflux disease without esophagitis Esophageal reflux 11/04/2014 Other epilepsy without status epilepticus, not intractable (HCC) 11/04/2014 Hyperlipidemia LDL goal < 100 Other and unspecified hyperlipidemia 11/04/2014 Generalized anxiety disorder 02/24/2015 Trapezius strain, unspecified laterality, initial encounter 02/24/2015 Medial epicondylitis of elbow, right 02/24/2015 Right shoulder pain Pain in joint, shoulder region 03/17/2015 Generalized anxiety disorder 03/20/2015 Chronic obstructive pulmonary disease with acute exacerbation (HCC) Obstructive chronic bronchitis with exacerbation 03/20/2015 Restless leg syndrome Restless legs syndrome (RLS) 03/20/2015 Gastroesophageal reflux disease without esophagitis Esophageal reflux 03/20/2015 Chronic obstructive pulmonary disease with acute exacerbation (HCC) Obstructive chronic bronchitis with exacerbation 03/21/2015 Generalized anxiety disorder 03/21/2015 Right shoulder pain Pain in joint, shoulder region 03/22/2015 Seizure disorder (HCC) Unspecified epilepsy without mention of intractable epilepsy 03/23/2015 Shoulder tendonitis, right 03/30/2015 Primary osteoarthritis of right shoulder Primary localized osteoarthrosis, shoulder region 03/30/2015 Other epilepsy without status epilepticus, not intractable (HCC) 04/20/2015 Hyperlipidemia with target LDL less than 100 Other and unspecified hyperlipidemia 04/20/2015 Chronic obstructive pulmonary disease with acute exacerbation (HCC) Obstructive chronic bronchitis with exacerbation 04/20/2015 Generalized anxiety disorder 04/20/2015 Gastroesophageal reflux disease without esophagitis Esophageal reflux 04/20/2015 Restless leg syndrome Restless legs syndrome (RLS) 04/20/2015 Hyperlipidemia with target LDL less than 100 Other and unspecified hyperlipidemia 04/20/2015 Major depressive disorder, recurrent episode, mild 04/20/2015 Other epilepsy without status epilepticus, not intractable (HCC) 04/20/2015 Impingement syndrome, shoulder, right 04/20/2015 Well adult 2015 Cigarette nicotine dependence without complication Tobacco use disorder 2015 Impingement syndrome of right shoulder Other affections of shoulder region, not elsewhere classified 06/20/2015 Pain of left lower extremity 06/23/2015 Other epilepsy without status epilepticus, not intractable (HCC) 11/16/2015 Hyperlipidemia with target LDL less than 100 Other and unspecified hyperlipidemia 11/16/2015 Chronic obstructive pulmonary disease with acute exacerbation (HCC) Obstructive chronic bronchitis with exacerbation 11/16/2015 Hyperlipidemia with target LDL less than 100 Other and unspecified hyperlipidemia 11/16/2015 Generalized anxiety disorder 11/16/2015 Restless leg syndrome Restless legs syndrome (RLS) 11/16/2015 Major depressive disorder, recurrent episode, mild 11/16/2015 Other epilepsy without status epilepticus, not intractable (HCC) 11/16/2015 Gastroesophageal reflux disease without esophagitis Esophageal reflux 11/16/2015 Seasonal allergies Allergic rhinitis, cause unspecified 11/16/2015 Acute bacterial sinusitis Acute sinusitis, unspecified 11/16/2015 Fall, initial encounter 11/20/2015 Cervical strain, initial encounter 11/20/2015 Abrasions of multiple sites Abrasion or friction burn of other, multiple, and unspecified sites, without mention of infection 11/20/2015 Right shoulder strain, initial encounter 11/20/2015 Right-sided low back pain without sciatica 11/27/2015 Memory loss 04/01/2016 Hyperlipidemia with target LDL less than 100 Other and unspecified hyperlipidemia 04/01/2016 Gastroesophageal reflux disease without esophagitis Esophageal reflux 04/01/2016 Generalized anxiety disorder 04/01/2016 Hyperlipidemia with target LDL less than 100 Other and unspecified hyperlipidemia 04/01/2016 Seasonal allergic rhinitis, unspecified allergic rhinitis trigger 04/01/2016 Other epilepsy without status epilepticus, not intractable (HCC) 04/01/2016 Restless leg syndrome Restless legs syndrome (RLS) 04/01/2016 Major depressive disorder, recurrent episode, mild 04/01/2016 Need for influenza vaccination Need for prophylactic vaccination and inoculation against influenza 04/01/2016 Gastroesophageal reflux disease without esophagitis Esophageal reflux 04/01/2016 COPD, mild (HCC) Chronic airway obstruction, not elsewhere classified 04/01/2016 Memory loss 04/01/2016 Well adult exam Routine general medical examination at a health care facility 04/29/2016 COPD, mild (HCC) Chronic airway obstruction, not elsewhere classified 04/29/2016 Need for pneumococcal vaccination Need for prophylactic vaccination against streptococcus pneumoniae (pneumococcus) 04/29/2016 COPD, mild (HCC) Chronic airway obstruction, not elsewhere classified 05/06/2016 Bilateral carpal tunnel syndrome Carpal tunnel syndrome 05/08/2016 Generalized anxiety disorder 05/16/2016 COPD, mild (HCC) Chronic airway obstruction, not elsewhere classified 05/16/2016 Cigarette nicotine dependence without complication Tobacco use disorder 05/16/2016 Bilateral carpal tunnel syndrome Carpal tunnel syndrome 05/16/2016 Left carpal tunnel syndrome Carpal tunnel syndrome 06/11/2016 Right carpal tunnel syndrome Carpal tunnel syndrome 06/11/2016 Generalized anxiety disorder 06/12/2016 Acute pain of right knee 08/07/2016 Right knee injury, initial encounter 08/07/2016 Acute pain of right knee 08/07/2016 Right knee injury, initial encounter 08/07/2016 Generalized anxiety disorder 08/18/2016 Generalized anxiety disorder 10/05/2016 Generalized anxiety disorder 10/21/2016 Generalized anxiety disorder 11/10/2016 Major depressive disorder, recurrent episode, mild 11/10/2016 Other epilepsy without status epilepticus, not intractable (HCC) 11/10/2016 Restless leg syndrome Restless legs syndrome (RLS) 11/10/2016 Hyperlipidemia with target LDL less than 100 Other and unspecified hyperlipidemia 11/10/2016 Other epilepsy without status epilepticus, not intractable (HCC) 01/07/2017 Hyperlipidemia with target LDL less than 100 Other and unspecified hyperlipidemia 01/07/2017 Bee sting allergy Toxic effect of venom 01/07/2017 COPD, mild (HCC) Chronic airway obstruction, not elsewhere classified 01/07/2017 Hyperlipidemia with target LDL less than 100 Other and unspecified hyperlipidemia 01/07/2017 Generalized anxiety disorder 01/07/2017 Acute pain of right knee 01/07/2017 Right knee injury, initial encounter 01/07/2017 Other epilepsy without status epilepticus, not intractable (HCC) 01/07/2017 Major depressive disorder, recurrent episode, mild 01/07/2017 Gastroesophageal reflux disease without esophagitis Esophageal reflux 01/07/2017 Chronic seasonal allergic rhinitis due to pollen 01/07/2017 Epidermal inclusion cyst Sebaceous cyst 02/27/2017 Acute bacterial sinusitis Acute sinusitis, unspecified 02/27/2017 Chronic seasonal allergic rhinitis due to pollen 02/27/2017 Lumbar sprain, initial encounter 02/27/2017 Generalized osteoarthritis of multiple sites Generalized osteoarthrosis, involving multiple sites 02/27/2017 Other epilepsy without status epilepticus, not intractable (HCC) 04/08/2017 Seasonal allergic rhinitis Allergic rhinitis, cause unspecified 04/08/2017 Generalized anxiety disorder 04/08/2017 Restless leg syndrome Restless legs syndrome (RLS) 04/08/2017 Well adult exam Routine general medical examination at a health care facility 05/06/2017 Other epilepsy without status epilepticus, not intractable (HCC) 05/06/2017 COPD, mild (HCC) Chronic airway obstruction, not elsewhere classified 05/06/2017 Gastroesophageal reflux disease without esophagitis Esophageal reflux 05/06/2017 Restless leg syndrome Restless legs syndrome (RLS) 05/06/2017 Hyperlipidemia with target LDL less than 100 Other and unspecified hyperlipidemia 05/06/2017 Cigarette nicotine dependence without complication Tobacco use disorder 05/06/2017 Impulse control disorder Impulse control disorder, unspecified 05/06/2017 Recurrent major depressive disorder, in full remission 05/06/2017 Generalized anxiety disorder 05/06/2017 Closed nondisplaced fracture of distal phalanx of right ring finger, initial encounter 05/26/2017 Multiple abrasions Abrasion or friction burn of other, multiple, and unspecified sites, without mention of infection 05/26/2017 Rotator cuff strain, left, initial encounter 07/07/2017 Other epilepsy without status epilepticus, not intractable (HCC) 07/22/2017 Impulse control disorder Impulse control disorder, unspecified 07/22/2017 COPD, mild (HCC) Chronic airway obstruction, not elsewhere classified 07/22/2017 Recurrent major depressive disorder, in full remission 07/22/2017 Chest wall pain Painful respiration 07/22/2017 Rotator cuff syndrome of left shoulder Disorders of bursae and tendons in shoulder region, unspecified 07/22/2017 JB (generalized anxiety disorder) Generalized anxiety disorder 07/22/2017 Closed nondisplaced fracture of distal phalanx of finger, unspecified finger, initial encounter 07/22/2017 Impulse control disorder Impulse control disorder, unspecified 12/05/2017 JB (generalized anxiety disorder) Generalized anxiety disorder 12/05/2017 Other epilepsy without status epilepticus, not intractable (HCC) 12/05/2017 COPD, mild (HCC) Chronic airway obstruction, not elsewhere classified 12/05/2017 Recurrent major depressive disorder, in full remission 12/05/2017 Gastroesophageal reflux disease without esophagitis Esophageal reflux 12/05/2017 Esophageal dysphagia Dysphagia, pharyngoesophageal phase 12/05/2017 Restless leg syndrome Restless legs syndrome (RLS) 12/05/2017 Chronic seasonal allergic rhinitis due to pollen 12/05/2017 Generalized osteoarthritis of multiple sites Generalized osteoarthrosis, involving multiple sites 12/05/2017 Hyperlipidemia with target LDL less than 100 Other and unspecified hyperlipidemia 12/05/2017 Nonintractable headache, unspecified chronicity pattern, unspecified headache type 12/22/2017 Impulse control disorder Impulse control disorder, unspecified 04/13/2018 JB (generalized anxiety disorder) Generalized anxiety disorder 04/13/2018 Restless leg syndrome Restless legs syndrome (RLS) 04/13/2018 COPD, mild (HCC) Chronic airway obstruction, not elsewhere classified 06/01/2018 Recurrent major depressive disorder, in full remission 06/01/2018 Other epilepsy without status epilepticus, not intractable (HCC) 06/01/2018 Cigarette nicotine dependence without complication Tobacco use disorder 06/01/2018 Gastroesophageal reflux disease without esophagitis Esophageal reflux 06/01/2018 Left inguinal pain Abdominal pain, left lower quadrant 06/01/2018 Medicare annual wellness visit, subsequent Routine general medical examination at a health care facility 06/01/2018 Hyperlipidemia with target LDL less than 100 Other and unspecified hyperlipidemia 06/01/2018 Contusion of neck, subsequent encounter 06/01/2018 Impulse control disorder Impulse control disorder, unspecified 06/01/2018 JB (generalized anxiety disorder) Generalized anxiety disorder 06/01/2018 Chronic seasonal allergic rhinitis due to pollen 06/01/2018 Restless leg syndrome Restless legs syndrome (RLS) 06/01/2018 Nonintractable headache, unspecified chronicity pattern, unspecified headache type 06/01/2018 Concentration deficit Attention or concentration deficit 06/01/2018 Malaise and fatigue Other malaise and fatigue 06/01/2018 Balance disorder Other symptoms involving nervous and musculoskeletal systems 06/01/2018 Elevated liver function tests Other abnormal blood chemistry 06/01/2018 Hepatitis A antibody positive Other and unspecified nonspecific immunological findings 06/02/2018 Elevated liver function tests Other abnormal blood chemistry 06/02/2018 Impulse control disorder Impulse control disorder, unspecified 07/21/2018 JB (generalized anxiety disorder) Generalized anxiety disorder 07/21/2018 Goals Goal Patient Goal Type Associated Problems Recent Progress Patient-Stated? 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
--- OUTSIDE RECORDS SUMMARY | 2024-09-21 14:19 | XMS_ITS | Data Portability ---
Author Organization [facility] ILA [facility] [place] CLOSED Address [address] [place] [address] Assessment No assessment recorded. Plan of Treatment [...] Time 2 Tympanogram completed ALEJANDRA FELTON [address] [place], [address], [facility] 12/20/2021 10:44:05 2 Audiogram completed ALEJANDRA FELTON [address] [place], [address], [facility] 12/20/2021 10:44:03 Imaging Results None recorded. Procedure Notes None recorded. Medical Equipment None Reported. Vitals None Recorded 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 None recorded. Functional Status None recorded. Mental Status None recorded. Family History Nothing Reported. 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 No medical history recorded. Past Encounters Encounter ID Performer Location Encounter Start Date Encounter Closed Date Diagnosis/Indication Diagnosis SNOMED-CT Code Diagnosis ICD10 Code Diagnosis Note [id number] ALEJANDRA FELTON [facility] [address] [place] [address] 12/20/2021 10:08:29 12/20/2021 10:45:18 Sensorineural hearing loss of bilateral ears 218697383 H90.3 L>[facility] Health Concerns Section Related Observation LastModified by Organization Detai ls LastModified Time None Recorded Concern Status LastModified by Organization Details LastModified Time None Recorded Advance Directives Directive None Recorded Payers Insurance Date Sequence Insurance Name Policy Number Policy Singleton Covered Member ID Singleton Member ID Guarantor Name 03/12/2022 2 [employer] [place] (MEDICAID HMO[place] Zac Clifton [id number] Nuno Clifton 03/12/2022 1 [place] (MEDICARE [facility]) [id number] Nuno Clifton [id number] Nuno Clifton
== END 2024-09-20 23:59 ==
LOC: LAB.DROPOF 09-21 14:15
PROVIDERS: PCP Family Medicine; Visit Provider Family Medicine
DX: F41.9 Anxiety disorder, unspecified (principal)
CPT/HCPCS: 80185

== ENCOUNTER 2024-11-03 11:19 | Emergency (ER) | payer MEDICARE, MEDICAID, SELFPAY ==
--- NOTE | 2024-11-03 11:21 | ED_ITS ---
<Statement entered by Dustin Grant MD - 11/03/24 16:48> I physical exam in this person and they have what is consistent with a less than 1 cm abscess versus hidradenitis. Will treat with oral antibiotics, outpatient follow-up. Strict precautions are discussed I was consulted by the AGUILAR, and we discussed the complexity of problems being addressed. I approved the treatment and management plan for this patient's care in the emergency department, thus performing a substantial portion of the medical decision making. Dustin Grant MD Discharge Plan Disposition Patient Disposition: Home, Self-Care Condition: Good Prescriptions Prescriptions: New sulfamethoxazole-trimethoprim [Bactrim DS] 800-160 mg tablet 1 tab PO Q12H Qty: 20 0RF No Action diclofenac sodium [Voltaren Arthritis Pain] 1 % gel 2 g topical QID Qty: 100 2RF Rx Instructions: apply to single elbow, wrist or hand; for hand includes palm/fingers/back of hand duloxetine 60 mg capsule,delayed release(DR/EC) 60 mg PO DAILY Qty: 90 3RF esomeprazole magnesium 40 mg capsule,delayed release(DR/EC) See Rx Instructions .ROUTE .COMPLEX Qty: 90 2RF Dose Instruction: TAKE ONE CAPSULE BY MOUTH EVERY DAY FOR GERD Rx Instructions: TAKE ONE CAPSULE BY MOUTH EVERY DAY FOR GERD phenytoin sodium extended 200 mg capsule 200 mg PO BID Qty: 60 2RF meloxicam 15 mg tablet See Rx Instructions .ROUTE .COMPLEX Qty: 90 2RF Dose Instruction: TAKE ONE TABLET BY MOUTH EVERY DAY --TAKE WITH FOOD-- Rx Instructions: TAKE ONE TABLET BY MOUTH EVERY DAY --TAKE WITH FOOD-- buspirone 10 mg tablet See Rx Instructions .ROUTE .COMPLEX Qty: 90 2RF Dose Instruction: TAKE ONE TABLET BY MOUTH THREE TIMES DAILY FOR ANXIETY Rx Instructions: TAKE ONE TABLET BY MOUTH THREE TIMES DAILY FOR ANXIETY albuterol sulfate 90 mcg/actuation HFA aerosol inhaler See Rx Instructions .ROUTE .COMPLEX Qty: 8.5 6RF Dose Instruction: INHALE 4 puffs BY MOUTH EVERY 4 HOURS FOR 48 hours NEEDED SHORTNESS OF BREATH OR wheezing, THEN USE NEEDED Rx Instructions: INHALE 4 puffs BY MOUTH EVERY 4 HOURS FOR 48 hours NEEDED SHORTNESS OF BREATH OR wheezing, THEN USE NEEDED omega-3 fatty acids 1,000 mg capsule 2,000 mg PO DAILY Qty: 60 6RF cetirizine 10 mg tablet See Rx Instructions .ROUTE .COMPLEX Qty: 90 2RF Dose Instruction: TAKE ONE TABLET BY MOUTH EVERY DAY Rx Instructions: TAKE ONE TABLET BY MOUTH EVERY DAY azelastine 137 mcg (0.1 %) spray,non-aerosol See Rx Instructions .ROUTE .COMPLEX Qty: 30 5RF Dose Instruction: USE 1 SPRAY in each nostril twice daily as directed Rx Instructions: USE 1 SPRAY in each nostril twice daily as directed nicotine (polacrilex) 4 mg gum 4 mg buccal Q8H PRN (Reason: smoking cessation) Qty: 40 4RF Trelegy Ellipta 100-62.5-25 mcg blister with device See Rx Instructions .ROUTE .COMPLEX Qty: 60 2RF Dose Instruction: INHALE 1 PUFF BY MOUTH EVERY DAY FOR copd Rx Instructions: INHALE 1 PUFF BY MOUTH EVERY DAY FOR copd atorvastatin 40 mg tablet 40 mg PO DAILY Patient Comments: TAKE ONE TABLET BY MOUTH EVERY DAY olanzapine 5 mg tablet 5 mg PO BID Patient Comments: TAKE ONE TABLET BY MOUTH TWICE DAILY fluticasone propionate 50 mcg/actuation spray,suspension 1 spray INTRANASAL DAILY Patient Comments: instill 1 SPRAY IN EACH NOSTRIL EVERY DAY Referrals Follow up/Referrals: Christine Gonzalez APRN [Primary Care Provider, Family Practice] - See instructions Activity Restrictions/Add. Instructions Additional Instructions/Restrictions: Antibiotics as ordered If symptoms worsen or do not improve return Follow-up with PCP Clinical Impressions Clinical Impression: Abscess Instructions Patient Instructions: DI for Skin Abscess Print Language Print Language: Panamanian Discharge ED Provider: Dustin Grant General Adult HPI <Dustin Grant MD - Last Filed: 11/03/24 11:31> General Chief complaint: Skin/Abscess/Foreign Body Stated complaint: infection/abscess in R underarm Time Seen by Provider: 11/03/24 11:21 Related Data Home Medications ?Medication ?Instructions ?Recorded ?Confirmed atorvastatin 40 mg tablet 40 mg PO DAILY 03/25/2401/06 fluticasone propionate 50 1 spray intranasal DAILY 04/0609/20/24 mcg/actuation nasal spray,suspension olanzapine 5 mg tablet 5 mg PO BID 03/25/24 5 Previous Rx's ?Medication ?Instructions ?Recorded duloxetine 60 mg capsule,delayed 60 mg PO DAILY #90 ca ps 01/07/25 release esomeprazole magnesium 40 mg See Rx Instructions .Rout e 05/20/24 capsule,delayed release .COMPLEX #90 caps phenytoin sodium extended 200 mg 200 mg PO BID #60 cap s 06/28/24 capsule albuterol sulfate 90 mcg/actuation See Rx Instructions .Route 07/14/24 aerosol inhaler .COMPLEX #8.5 grams buspirone 10 mg tablet See Rx Instructions .Route 0 07/14/24 .COMPLEX #90 tabs meloxicam 15 mg tablet See Rx Instructions .Route 0 07/14/24 .COMPLEX #90 tabs omega-3 fatty acids 1,000 mg 2,000 mg (2 x 1,000 mg) P O DAILY 07/21/24 capsule #60 caps diclofenac sodium 1 % topical gel 2 g topical QID #100 grams 08/12/24 (Voltaren Arthritis Pain) azelastine 137 mcg (0.1 %) nasal See Rx Instructions . Route 08/16/24 spray .COMPLEX #30 mL cetirizine 10 mg tablet See Rx Instructions .Route 0 08/16/24 .COMPLEX #90 tabs nicotine (polacrilex) 4 mg gum 4 mg buccal Q8H PRN smo laila 08/26/24 cessation #40 ea fluticasone fur. 100 mcg-umeclid See Rx Instructions . Route 09/20/24 62.5 mcg-vilant 25 mcg .COMPLEX #60 blisters inhalat.powder (Trelegy Ellipta) sulfamethoxazole 800 1 tab PO Q12H #20 tabs 11/03 mg-trimethoprim 160 mg tablet (Bactrim DS) Allergies Allergy/AdvReac Type Severity Reaction Status Date / Time nickel Allergy Mild Rash Verified 09/20/24 13:14 alprazolam (From Xanax) Allergy Unknown Verified 09/20/24 13:13 allergy reaction fluoxetine (From Prozac) Allergy Unknown Verified 09/20/24 13:13 allergy reaction <Maryanne Gutiérrez ([facility] [employer] KEEPER [employer] - Last Filed: 11/03/24 11:42> General Mode of Arrival: Ambulatory Source of Information: Patient Limitations: No Limitations History of Present Illness HPI narrative: 54-year-old male presents for a red area in right axillary. Patient states he did not know when it started he just noticed it today after shaving his armpits PFSH <Dustin Grant MD - Last Filed: 11/03/24 11:31> [facility] Disclaimer: The information contained in this section may have been updated after the patient was seen, as this information can be updated by other users. 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 (Reviewed 11/03/24 @ 11:35 by Maryanne Gutiérrez ([facility]), [employer]PER [employer]) Trigger point Suicidal ideation Preoperative evaluation to rule out surgical contraindication Pain, wrist Acute exacerbation of chronic obstructive pulmonary disease Pulmonary emphysema Tobacco abuse counseling Tobacco abuse Smoking greater than 30 pack years COPD mixed type Tear of lateral meniscus of left knee Pes anserinus bursitis of left knee Chest pain Pain in wrist Epididymitis Acute exacerbation of chronic obstructive pulmonary disease Acute exacerbation of chronic obstructive pulmonary disease General weakness Abnormal x-ray of knee Left knee pain COPD exacerbation Encounter for medical assessment Trigger finger of right hand Popping of right knee joint Family history of cancer Encounter for screening colonoscopy Lesion of penis Right hand pain Orchalgia Laceration of ear lobe Elevated liver function tests Medial epicondylitis of left elbow Finger fracture, right UTI (urinary tract infection) Nausea & vomiting Throat pain in adult Trichomonas contact Abdominal pain Nausea Contusion of right elbow Nasal bone fracture Sinusitis Jaundice Bilateral shoulder pain Shoulder pain, left Hand fracture, right Hand pain, right Contusion Elbow contusion Sting, insect Chronic chest pain Superficial skin lesion Hemorrhoids Left wrist sprain Acute flank pain URI (upper respiratory infection) Left elbow pain Ankle pain Atypical chest pain Bursitis of left elbow Vomiting Rib pain on right side Seizure-like activity Acute exacerbation of chronic obstructive airways disease Acute and chronic respiratory failure with hypoxia Scalp abrasion Subtherapeutic serum dilantin level Pharyngitis Testicular pain, right Mid back pain Chest pain Chronic groin pain Otitis media Shortness of breath Encounter for medical assessment Acute bacterial sinusitis Pharyngitis Nasal polyp Influenza A Migraine HTN (hypertension), benign HLD (hyperlipidemia) Depression Asthma Anxiety Upper respiratory infection Pneumonia Schizophrenia Hepatitis B Seizure disorder Chronic obstructive pulmonary disease GERD (gastroesophageal reflux disease) 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 (Reviewed 11/03/24 @ 11:35 by Maryanne Gutiérrez ([facility]), ANIM[employer] K[employer]) History of laparoscopic cholecystectomy History of nasal surgery H/O vasectomy History of arthroscopy of right shoulder History of arthroscopy of left shoulder H/O arthroscopy of right knee Family History (Reviewed 11/03/24 @ 11:35 by Maryanne Gutiérrez ([facility]), ANIMAL KEEPER HEAD) Family history of seizures Cancer 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 (Reviewed 11/03/24 @ 11:35 by [facility]anne Vivas[facility] YANELIS) Smoking Status: Current every day smoker tobacco type: cigarettes packs per day: 1 second hand exposure: No alcohol intake: never substance use type: former substance user, marijuana and methamphetamine current occupational status: disabled Travel in the last 8 weeks?: None household members: other housing: house number of children: 2 current occupational exposures/hazards: No caffeine: Yes Other 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 Have you received the Flu Vaccine for this season: No Have you received the Pneumonia Vaccine: No <Maryanne Gutiérrez ([facility]), [employer] - Last Filed: 11/03/24 11:42> ROS Obtained: Yes All systems reviewed & no additional complaints except as documented Constitutional Constitutional: Reports system reviewed and no additional complaints, except as documented, Reports as per HPI, Denies fatigue and Denies fever(s) Integumentary/Breasts Skin/Breast: Reports system reviewed and no additional complaints, except as documented, Reports as per HPI and Reports other (Pea-sized red raised area) Endocrine Endocrine: Reports system reviewed and no additional complaints, except as documented and Denies fatigue Physical Exam <Dustin Grant MD - Last Filed: 11/03/24 11:31> Expanded Skin Exam Body image: 2 1. pea size red raised area- no drainage <[facility] [employer] - Last Filed: 11/03/24 11:42> General General appearance: alert and in no apparent distress ENT ENT exam: Present normal exam Respiratory Respiratory exam: Present normal lung sounds bilaterally Cardiovascular Cardiovascular exam: Present regular rate and normal rhythm Neurological Exam Neurological exam: Present alert and oriented X3 Skin Skin exam: Present warm Expanded Skin Exam Body image: 2 1. pea size red raised area- no drainage Medical Decision Making <Dustin Grant MD - Last Filed: 11/03/24 11:31> Medical Records Screening: Per USPSTF and CDC recommendations, given the prevalence of disease in our region, it is our hospital?s policy to screen for HIV and viral Hepatitis for all patients aged 18 and over and those with ongoing risk factors. <[facility] [employer] - Last Filed: 11/03/24 11:42> Medical Records Medical records reviewed: Yes I reviewed the patient's medical records. Krishna Inquiry Pt receiving controlled substance: No Medical Decision Narrative: In summary patient is a 54-year-old male who presents to the emergency department for evaluation of abscess to right axillary. Patient is hemodynamically stable upon arrival, afebrile. Small pea-sized red raised area is tender to palpate to right axillary. Differential diagnosis includes abscess, folliculitis. Upon repeat evaluation patient sitting in the chair comfortably. Given this patient will be discharged home with a prescription for Bactrim Critical Care <Maryanne Gutiérrez ([facility]), [employer] - Last Filed: 11/03/24 11:42> Critical Care Time Critical Care Time: No
[2024-11-03 11:28] VITALS: BP 129/79; PULSE 78; RESP 16; TEMP 36.6; O2SAT 97; BMI 27.7
--- OUTSIDE RECORDS SUMMARY | 2024-11-03 11:44 | XMS_ITS | Data Portability ---
Author Organization [facility] ILA [facility] [place] [facility] Address [address] [place] [address] Assessment No assessment recorded. Plan of Treatment [...] Time 2 Tympanogram completed ALEJANDRA FELTON [address] [place], [address], [facility] 12/20/2021 10:44:05 2 Audiogram completed ALEJANDRA FELTON [address] [place], [address], [facility] 12/20/2021 10:44:03 Imaging Results None recorded. Procedure Notes None recorded. Medical Equipment None Reported. Vitals None Recorded 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 None recorded. Functional Status None recorded. Mental Status None recorded. Family History Nothing Reported. 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 No medical history recorded. Past Encounters Encounter ID Performer Location Encounter Start Date Encounter Closed Date Diagnosis/Indication Diagnosis SNOMED-CT Code Diagnosis ICD10 Code Diagnosis Note [id number] [facility]ANDRA [facility] [address] [place] [address] 12/20/2021 10:08:29 12/20/2021 10:45:18 Sensorineural hearing loss of bilateral ears 733632520 H90.3 L>R Health Concerns Section Related Observation LastModified by Organization Detai ls LastModified Time None Recorded Concern Status LastModified by Organization Details LastModified Time None Recorded Advance Directives Directive None Recorded Payers Insurance Date Sequence Insurance Name Policy Number Policy Singleton Covered Member ID Singleton Member ID Guarantor Name 03/12/2022 2 [employer] [place] (MED[place] Zac Clifton [id number] Nuno Clifton 03/12/2022 1 [place] [facility]) [id number] Nuno Clifton [id number] Nuno Clifton
--- OUTSIDE RECORDS SUMMARY | 2024-11-03 11:45 | XMS_ITS | Continuity of Care Document ---
Author Organization 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 [address] Germán Bradley MD Medication Refill 06/30/2018 Telephone [facility] [address] [place] [address] Dustin Mcintyre MD Other 06/02/2018 Orders Only [facility] [address] [place] [address] Radha Urbina CCMA Hepatitis A antibody positive (Primary Dx) 06/02/2018 Orders Only [facility] [address] [place] [address] Oralia Cruz RMA Elevated liver function tests (Primary Dx) 06/01/2018 9:30 AM EST Office Visit [facility] [address] [place] [address] Dustin Mcintyre MD Left inguinal [...] Elevated liver function tests 04/13/2018 Refill [facility] [address] [place] [address] Germán Bradley MD Medication Refill 12/22/2017 Telephone [facility] [address] [place] [address] Dustin Mcintyre MD Other 12/05/2017 8:00 AM EDT Office Visit [facility] [address] [facility] [place] [address] Germán Bradley MD Other epilepsy [...] 100 07/22/2017 1:00 PM EDT Office Visit [facility] [address] [facility] [place] [address] Germán Bradley MD Other epilepsy without status epilepticus, not intractable (HCC) (Primary Dx); Impulse control disorder; COPD, mild (HCC); Recurrent major depressive disorder, in full remission; Chest wall pain; Rotator cuff syndrome of left shoulder; JB (generalized anxiety disorder); Closed nondisplaced fracture of distal phalanx of finger, unspecified finger, initial encounter 07/08/2017 Patient Outreach [facility] [address] [place] [address] Jennifer Mccain LPN Care Transition; Care Management - Chart Review; ED Follow-Up Call 07/07/2017 9:44 PM EDT - 07/07/2017 10:25 PM EDT Emergency [facility] [address] [place] [address] Robbie Queen MD Rotator cuff strain, left, initial encounter (Primary Dx) Discharge Disposition: Home or Self Care 05/26/2017 9:28 PM EST - 05/26/2017 10:28 PM EST Emergency [facility] [address] [place] [address] Radha Lopez MD Closed nondisplaced fracture of distal phalanx of right ring finger, initial encounter (Primary Dx); Multiple abrasions Discharge Disposition: [facility] 05/06/2017 2:00 PM EST Office Visit [facility] [address] [place] [address] Dustin Mcintyre MD Well adult exam (Primary Dx); Other epilepsy without status epilepticus, not intractable (HCC); COPD, mild (HCC); Gastroesophageal reflux disease without esophagitis; Restless leg syndrome; Hyperlipidemia with target LDL less than 100; Cigarette nicotine dependence without complication; Impulse control disorder; Recurrent major depressive disorder, in full remission; Generalized anxiety disorder 04/08/2017 Refill [facility] [address] [place] [address] Dustin Mcintyre MD Medication Refill 04/08/2017 Refill [facility] [address] [place] [address] Germán Bradley MD Medication Refill 04/08/2017 Telephone [facility] [address] [place] [address] Dustin Mcintyre MD Other 02/27/2017 3:00 PM EST Office Visit [facility] [address] [place] [address] Germán Bradley MD Epidermal inclusion cyst (Primary Dx); Acute bacterial sinusitis; Chronic seasonal allergic rhinitis due to pollen; Lumbar sprain, initial encounter; Generalized osteoarthritis of multiple sites 01/16/2017 Telephone [facility] [address] [place] [address] Norma Greenfield MA Advice Only 01/07/2017 3:21 PM EDT - 01/07/2017 11:59 PM EDT Hospital Encounter [facility] [place] [address] Other epilepsy without status epilepticus, not intractable (HCC); Hyperlipidemia with target LDL less than 100 Discharge Disposition: Home or Self Care 01/07/2017 Telephone [facility] [address] [facility] [place] [address] Nelda Fritz, AGRICULTURAL ENGINEER Orders 01/07/2017 9:00 AM EDT Office Visit [facility] [address] [place] [address] Dustin Mcintyre MD Gastroesophageal reflux disease without esophagitis (Primary Dx); COPD, mild (HCC); Hyperlipidemia with target LDL less than 100; Generalized anxiety disorder; Acute pain of right knee; Right knee injury, initial encounter; Other epilepsy without status epilepticus, not intractable (HCC); Major depressive disorder, recurrent episode, mild; Chronic seasonal allergic rhinitis due to pollen 11/10/2016 Refill [facility] [address] [place] [address] Germán Bradley MD Medication Refill 10/21/2016 Refill [facility] [address] [place] [address] Nelda Fritz, AGRICULTURAL ENGINEER Medication Refill 10/05/2016 Refill [facility] [address] [place] [address] Germán Bradley MD Medication Refill 08/18/2016 Refill [facility] [address] [place] [address] Germán Bradley MD Medication Refill 08/07/2016 1:30 PM EDT - 08/07/2016 11:59 PM EDT Hospital Encounter [facility] [address] [place] [address] Acute pain of right knee; Right knee injury, initial encounter Discharge Disposition: Home or Self Care 08/07/2016 1:15 PM EDT Office Visit [facility] [address] [place] [address] Dustin Mcintyre MD Acute pain of right knee (Primary Dx); Right knee injury, initial encounter 07/24/2016 Telephone [facility] [address] [place] [address] Dustin Mcintyre MD Other 06/21/2016 Telephone [facility] [address] [place] [address] Nelda Fritz CMA Prior Authorization (nexium needs a PA) 06/12/2016 Telephone [facility] [address] [place] [address] Dustin Mcintyre MD Other 06/11/2016 7:45 AM EST - 06/11/2016 8:00 AM EST Surgery [facility] [address] [place] [address] aWng Vieira MD CARPAL TUNNEL RELEASE BILATERAL 06/11/2016 6:41 AM EST - 06/11/2016 8:24 AM EST Hospital Encounter [facility] [address] [place] [address] Wang Vieira MD Discharge Disposition: Home or Self Care 05/16/2016 1:15 PM EST Office Visit [facility] [address] [place] [address] Germán Bradley MD COPD, mild (HCC) (Primary Dx); Generalized anxiety disorder; Cigarette nicotine dependence without complication; Bilateral carpal tunnel syndrome 05/09/2016 Patient Outreach [facility] [address] [place] [address] Margie Mo LPN Care Management - Chart Review (Chart Review) 05/08/2016 1:42 PM EST - 05/08/2016 11:59 PM EST Hospital Encounter [facility] [address] [place] [address] Emg, Kiko Edg Bilateral carpal tunnel syndrome (Primary Dx) Discharge Disposition: Home or Self Care 05/06/2016 10:05 AM EST - 05/06/2016 11:59 PM EST Hospital Encounter [facility] [address] [place] [address] COPD, mild (HCC) Discharge Disposition: Home or Self Care 04/29/2016 2:30 PM EST Office Visit [facility] [address] [place] [address] Germán Bradley MD Well adult exam (Primary Dx); COPD, mild (HCC); Need for pneumococcal vaccination 04/01/2016 7:27 PM EST - 04/01/2016 11:59 PM EST Hospital Encounter [facility] [place] [address] Memory loss; Hyperlipidemia with target LDL less than 100 Discharge Disposition: Home or Self Care 04/01/2016 Orders Only [facility] [address] [place] [address] Kinjal Bustillo RMA Gastroesophageal reflux disease without esophagitis (Primary Dx) 04/01/2016 2:30 PM EST Office Visit [facility] [address] [place] [address] Germán Bradley MD Need for influenza vaccination (Primary Dx); Generalized anxiety disorder; Hyperlipidemia with target LDL less than 100; Seasonal allergic rhinitis, unspecified allergic rhinitis trigger; Other epilepsy without status epilepticus, not intractable ([facility]); Restless leg syndrome; Major depressive disorder, recurrent episode, mild; Gastroesophageal reflux disease without esophagitis; COPD, mild ([facility]); Memory loss 02/20/2016 Refill [facility] [address] [facility] [place] [address] Germán Bradley MD Medication Refill 12/28/2015 Refill [facility] [address] [facility] [place] [address] Nelda Fritz CMA Medication Refill 11/30/2015 Patient Outreach [address] [address] Елена Alvares RMA ED Follow-up 11/28/2015 Patient Outreach [address] [address] Margie Mo LPN Care Management - Chart Review (Chart Review-Patient discharged from ED 11/27/2015) 11/27/2015 5:23 PM EDT - 11/27/2015 6:28 PM EDT [facility] [address] [place] [address] Michelle Shirley MD Right-sided low back pain without sciatica (Primary Dx) Discharge Disposition: Home or Self Care 11/21/2015 Patient Outreach [address] [address] Margie Mo LPN Care Management - Chart Review (Chart Review-Patient discharged from ED 11/20/2015) 11/20/2015 Refill [facility]P [address] [address] Germán Bradley MD Medication Refill 11/20/2015 3:28 PM EDT - 11/20/2015 4:01 PM EDT Emergency [facility] [address] [place] [address] Devora Lindsey MD Fall, initial encounter (Primary Dx); Cervical strain, initial encounter; Abrasions of multiple sites; Right shoulder strain, initial encounter Discharge Disposition: Home or Self Care 11/16/2015 8:07 PM EDT - 11/16/2015 11:59 PM EDT Hospital Encounter [facility] [place] [address] Other epilepsy without status epilepticus, not intractable (HCC); Hyperlipidemia with target LDL less than 100 Discharge Disposition: Home or Self Care 11/16/2015 Telephone [facility] [address] [place] [address] Nelda Fritz CMA Prior Authorization ([email or web address] needs a PA) 11/16/2015 3:00 PM EDT Office Visit [address] [place] [place] [address] Germán Bradley MD Chronic obstructive pulmonary disease with acute exacerbation (HCC) (Primary Dx); Hyperlipidemia with target LDL less than 100; Generalized anxiety disorder; Restless leg syndrome; Major depressive disorder, recurrent episode, mild; Other epilepsy without status epilepticus, not intractable (HCC); Gastroesophageal reflux disease without esophagitis; Seasonal allergies; Acute bacterial sinusitis 10/21/2015 Refill [facility] [address] [place] [address] Germán Bradley MD Medication Refill 10/21/2015 Refill [facility] [address] [facility] [place] [address] Dustin Mcintyre MD Medication Refill 09/21/2015 Refill [facility] [address] [place] [address] Dustin Mcintyre MD Medication Refill 09/15/2015 Telephone [facility] [address] [place] [address] Germán Bradley MD Other 09/04/2015 Telephone [facility] [address] [place] [address] Nelda Fritz CMA Referral 08/23/2015 Refill [facility] [address] [place] [address] Germán Bradley MD Medication Refill 08/22/2015 Telephone [facility] [address] [place] [address] Germán Bradley MD Other 08/17/2015 Telephone [facility] [address] [place] [address] Germán rBadley MD Letter for School/Work 08/08/[address] [place] [address] Nelda Fritz [facility] Prior Authorization (atarax needs a PA) 08/07/2015 Refill [facility] [address] [place] [address] Germán Bradley MD Medication Refill 07/20/2015 Refill [facility] [address] [place] [address] Germán Bradley MD Medication Refill 07/05/2015 Refill [facility] [address] [place] [address] Dustin Mcintyre MD Medication Refill 06/26/2015 Refill [facility] [address] [place] [address] Germán Bradley MD Medication Refill 06/26/2015 Patient Outreach [facility] [address] [place] [address] Елена Alvares RMA ED Follow-up 06/26/2015 Patient Outreach [facility] [address] [place] [address] Margie Mo LPN Care Management - Chart Review (Discharged from ED 06/23/2015 Chart Reviewed) 06/23/2015 4:34 PM EST - 06/23/2015 6:22 PM EST Emergency [facility] [address] [place] [address] Elina Hall MD Pain of left lower extremity (Primary Dx) Discharge Disposition: Home or Self Care 06/20/2015 8:30 AM EST - 06/20/2015 9:30 AM EST Surgery [facility] [address] [place] [address] Crow Love MD SHOULDER ARTHROSCOPY SUBACROMIAL DECOMPRESSION /FULL MILLY 06/20/2015 7:52 AM EST Anesthesia Event [facility] [address] [place] [address] Jerson Can DO Mucenski, Cathleen M, MD 06/20/2015 6:32 AM EST - 06/20/2015 10:47 AM EST Hospital Encounter [facility] [address] [place] [address] Crow Love MD Discharge Disposition: Home or Self Care 05/10/2015 Refill [facility] [address] [place] [address] Dustin Mcintyre MD Medication Refill 2015 10:00 AM EST Office Visit [facility] [address] [place] [address] Germán Bradley MD Well adult (Primary Dx); Cigarette nicotine dependence without complication 04/20/2015 3:26 PM EST - 04/20/2015 11:59 PM EST Hospital Encounter [facility] [address] Other epilepsy without status epilepticus, not intractable (HCC); Hyperlipidemia with target LDL less than 100 Discharge Disposition: Home or Self Care 04/20/2015 Telephone [facility] [address] [place] [address] MaynorarturoЕлена MARYANNESabine Anxiety 04/20/2015 9:30 AM EST Office Visit [facility] [address] [place] [address] Germán Bradley MD Chronic obstructive pulmonary disease with acute exacerbation (HCC) (Primary Dx); Generalized anxiety disorder; Gastroesophageal reflux disease without esophagitis; Restless leg syndrome; Hyperlipidemia with target LDL less than 100; Major depressive disorder, recurrent episode, mild; Other epilepsy without status epilepticus, not intractable (HCC); Impingement syndrome, shoulder, right 04/12/2015 Refill [facility] [address] [place] [address] Dustin Mcintyre MD Medication Refill 04/11/2015 Refill [facility] [address] [place] [address] Dustin Mcintyre MD Medication Refill 04/11/2015 Refill [facility] [address] [place] [address] Dustin Mcintyre MD Medication Refill 03/30/2015 11:00 AM EST Office Visit [facility] [address] [place] [address] Germán Bradley MD Shoulder tendonitis, right (Primary Dx); Primary osteoarthritis of right shoulder 03/23/2015 Orders Only [facility] Neurology [facility] [address] [place] [address] Tu Rivera MD Seizure disorder (HCC) (Primary Dx) 03/22/2015 11:10 AM EST - 03/22/2015 11:59 PM [facility] Hospital Encounter [facility] [address] [place] [address] Dustin Mcintyre MD Right shoulder pain Discharge Disposition: Home or Self Care 03/21/2015 Orders Only [facility] [address] [place] [address] Елена Alvares RMA Chronic obstructive pulmonary disease with acute exacerbation (HCC) (Primary Dx); Generalized anxiety disorder 03/20/2015 Refill [facility] [address] [place] [address] Dustin Mcintyre MD Medication Refill 03/17/2015 10:15 AM EST Office Visit [facility] [address] [place] [address] Dustin Mcintyre MD Right shoulder pain (Primary Dx) 02/24/2015 11:00 AM EST Office Visit [facility] [address] [place] [address] Dustin Mcintyre MD Generalized anxiety disorder (Primary Dx); Trapezius strain, unspecified laterality, initial encounter; Medial epicondylitis of elbow, right 01/24/2015 Refill [facility] [address] [place] [address] Dustin Mcintyre MD Medication Refill 01/24/2015 Refill [facility] [address] [place] [address] Nelda Fritz, AGRICULTURAL ENGINEER Medication Refill 01/23/2015 Refill [facility] [address] [place] [address] Nelda Fritz Veronica, AGRICULTURAL ENGINEER Medication Refill 12/21/2014 Refill [facility] [address] [place] [address] Dustin Mcintyre MD Medication Refill 11/04/2014 3:00 PM EDT - 11/04/2014 11:59 PM EDT Hospital Encounter [facility] [place] [address] Other epilepsy without status epilepticus, not intractable ([facility]); Hyperlipidemia LDL goal < 100 Discharge Disposition: Home or Self Care 11/04/2014 9:15 AM EDT Office Visit [address] [place] [address] Dustin Mcintyre MD Generalized anxiety disorder (Primary Dx); Asthma, unspecified asthma severity, uncomplicated; COPD (chronic obstructive pulmonary disease) ([facility]); Restless leg syndrome; Gastroesophageal reflux disease without esophagitis; Other epilepsy without status epilepticus, not intractable ([facility]); Hyperlipidemia LDL goal < 100 11/01/[address] [place] [address] Dustin Mcintyre MD Medication Refill 11/01/[address] [place] [address] Dustin Mcintyre MD Medication Refill 10/31/[address] [place] [address] Dustin Mcintyre MD Medication Refill 10/14/2014 Refill [facility] [address] [place] [address] Dustin Mcintyre MD Medication Refill 08/29/[address] [place] [address] Nelda Fritz CMA Medication Management (atrarax needs a pa) 08/10/[address] [place] [address] Nelda Fritz CMA Medication Management (hyrdoxyzine needs a PA) 07/13/[address] [place] [address] Nelda Fritz CMA Medication Problem 07/08/2014 9:28 AM EDT - 07/08/2014 11:59 PM EDT Hospital Encounter [facility] Physical Therapy [address] [place] [address] Shanice Ybarra, PT Discharge Disposition: Home or Self Care 07/01/2014 10:04 AM EDT - 07/01/2014 11:59 PM EDT Hospital Encounter [facility] Physical Therapy [address] [place] [address] Shanice Ybarra, PT Discharge Disposition: Home or Self Care 06/28/2014 9:27 AM EDT - 06/28/2014 11:59 PM EDT Hospital Encounter [facility] Physical Therapy [address] [place] [address] Margarita Doran, PT Discharge Disposition: Home or Self Care 06/21/2014 8:15 AM EDT - 06/21/2014 8:45 AM EDT Surgery [facility] [address] [place] [address] Crow Love MD KNEE ARTHROSCOPY MENISCECTOMY/REPAIR (ALSO COVERS ARTHROSCOPIC INCISION AND DRAINAGE/DEBRIDEMENT) 06/21/2014 7:50 AM EDT Anesthesia Event [facility] [address] [place] [address] Artem Naqvi MD Brannon, Daniel Todd, DO 06/21/2014 6:35 AM EDT - 06/21/2014 10:32 AM EDT Hospital Encounter [facility] [address] [place] [address] Crow Love MD Discharge Disposition: Home or Self Care 06/08/2014 10:30 AM EST Office Visit [facility] [address] [place] [address] Dustin Mcintyre MD Pre-op exam (Primary Dx); Arthritis of knee; Folliculitis; Epilepsy (HCC); Restless leg syndrome; JB (generalized anxiety disorder); Hearing loss in left ear; GERD (gastroesophageal reflux disease) 05/25/2014 Telephone [facility] [address] [place] [address] Dustin Mcintyre MD Results 05/21/2014 Refill [facility] [address] [place] [address] Dustin Mcintyre MD Medication Refill 05/20/2014 7:41 PM EST - 05/20/2014 11:59 PM EST Hospital Encounter [facility] PROCESSING [facility] [place] [address] [address] Hypernatremia; Pre-op testing Discharge Disposition: Home or Self Care 05/20/2014 Orders Only [facility] [address] [place] [address] Lay Minor MD Hypernatremia (Primary Dx); Pre-op testing 05/20/2014 11:00 AM EST Office Visit [facility] [address] [facility] [place] [address] Dustin Mcintyre MD Bronchitis (Primary Dx); COPD exacerbation (HCC); Asthma exacerbation, moderate persistent; Chest wall pain; Vomiting; Hypernatremia 05/19/2014 Patient Outreach [facility] [address] [facility] [place] [address] Nasrin Perry, automotive service professional (ED f/u call ) 05/18/2014 11:12 AM EST - 05/18/2014 12:37 PM EST Emergency [facility] [address] [facility] [place] [address] Mariaelena Rossi MD Acute bronchitis (Primary Dx); Acute sinusitis; COPD (chronic obstructive pulmonary disease) (HCC) Discharge Disposition: Home or Self Care 2014 7:57 PM EST - 2014 11:59 PM EST Hospital Encounter [facility] PROCESSING [facility] [place] [address] Healthcare maintenance; Epilepsy (HCC) Discharge Disposition: Home or Self Care 2014 10:00 AM EST Office Visit [facility] [address] [facility] [place] [address] Dustin Mcintyre MD Epilepsy ([facility]) (Primary Dx); Generalized anxiety disorder; Hyperlipidemia LDL goal < 100; Restless leg syndrome; GERD (gastroesophageal reflux disease); Healthcare maintenance; COPD (chronic obstructive pulmonary disease) ([facility]) 04/01/2014 Telephone [facility] [address] [place] [address] Dustin Mcintyre MD Results 03/23/2014 11:00 AM EST Office Visit [facility] [address] [place] [address] Wheezing; SOB (shortness of breath) Discharge Disposition: Home or Self Care 03/18/2014 10:45 AM EST Office Visit [facility] [address] [place] [address] Dustin Mcintyre MD Wheezing (Primary Dx); SOB (shortness of breath) 03/17/2014 Telephone [facility] [address] [place] [address] Nelda Fritz CMA Medication Management (protonix bid needs a PA) 03/14/2014 Telephone [facility] [address] [place] [address] Dustin Mcintyre MD Medication Refill 03/08/2014 Telephone [facility] [address] [place] [address] Dustin Mcintyre MD Other 03/08/2014 11:20 AM EST - 03/08/2014 11:59 PM EST Hospital Encounter [facility] [address] [place] [address] Allergic rhinitis, cause unspecified (Primary Dx); Epilepsy ([facility]); Hearing loss in left ear; GERD (gastroesophageal reflux disease); JB (generalized anxiety disorder); FHx: prostate cancer; FHx: lung cancer; Nicotine dependence; Restless leg syndrome Discharge Disposition: Home or Self Care 03/08/2014 10:45 AM EST Office Visit [facility] [address] [place] [address] Dustin Mcintyre MD Hyperlipidemia LDL goal < 100 (Primary Dx); GERD (gastroesophageal reflux disease); Asthma, unspecified asthma severity, uncomplicated; Epilepsy (HCC); Generalized anxiety disorder; Restless leg syndrome 02/12/2014 Refill [facility] [address] [place] [address] Dustin Mcintyre MD Medication Refill 02/04/2014 8:00 AM EDT - 02/04/2014 9:52 AM EDT Surgery [facility] [address] [place] [address] Los Gordon MD FUNCTIONAL ENDOSCOPIC SINUS SURGERY/SINOSCOPY 02/04/2014 6:27 AM EDT - 02/04/2014 11:53 AM EDT Hospital Encounter [facility] SAME DAY SURGERY [address] [place] [address] Los Gordon MD Discharge Disposition: Home or Self Care 02/02/2014 11:00 AM EDT - 02/02/2014 11:59 PM EDT Hospital Encounter [facility] PRE-ADMIT TESTING [address] [place] [address] Pat, Clarice Discharge Disposition: Home or Self Care 01/24/2014 11:29 AM EDT - 01/24/2014 11:59 PM EDT Hospital Encounter [facility] [address] [place] [address] Esophageal reflux (Primary Dx); Dyspepsia and other specified disorders of function of stomach; Dysphagia, unspecified(787.20) Discharge Disposition: Home or Self Care 11/19/2013 10:30 AM EDT Office Visit [facility] [address] [place] [address] Dustin Mcintyre MD Laceration of wrist, left, subsequent encounter (Primary Dx) 11/13/2013 Refill [facility] [address] [place] [address] Marcela Ding MD Medication Refill 11/12/2013 6:42 PM EDT - 11/12/2013 7:45 PM EDT Emergency [facility] [address] [facility] [place] [address] Jerson Go MD Wrist laceration, left, initial encounter (Primary Dx) Discharge Disposition: Home or Self Care 11/03/[address] [place] [address] Chyna Mcgraw MA Referral (ORTHO) 11/01/2013 Orders Only [address] [place] [address] Marcela Ding MD Knee pain, right (Primary Dx) 11/01/2013 8:55 AM EDT - 11/01/2013 11:59 PM EDT Hospital Encounter [facility] [address] [place] [address] Dustin Mcintyre MD Right knee pain; Recurrent right knee instability Discharge Disposition: Home or Self Care 10/29/[address] [place] [address] Dustin Mcintyre MD Other 10/28/[address] [address] Dustin Mcintyre MD Referral 10/25/2013 4:43 PM EDT - 10/25/2013 11:59 PM EDT Hospital Encounter [facility] [place] [address] Hyperlipidemia LDL goal < 100 (Primary Dx); Epilepsy (HCC); Screening PSA (prostate specific antigen); Family history of prostate cancer; FHx: prostate cancer; Other nonspecific abnormal serum enzyme levels Discharge Disposition: Home or Self Care 10/25/[address] [place] [address] Nelda Fritz CMA Medication Management (Nexium bid dosing needs a PA) 10/25/2013 10:30 AM EDT Office Visit [facility] [address] [place] [address] Dustin Mcintyre MD Epilepsy ([facility]) (Primary Dx); Asthma, unspecified asthma severity, uncomplicated; Generalized anxiety disorder; JB (generalized anxiety disorder); GERD (gastroesophageal reflux disease); Family history of prostate cancer; Hyperlipidemia LDL goal < 100; FHx: prostate cancer; Hearing loss in left ear; Restless leg syndrome; Right knee pain; Recurrent right knee instability; Screening PSA (prostate specific antigen) 10/18/2013 Refill [facility] [address] [place] [address] Germán Bradley MD Medication Refill 10/13/2013 10:00 AM EDT Office Visit [facility] [address] [place] [address] Tu Rivera MD Epilepsy ([facility]) (Primary Dx); Hearing loss in left ear; Nicotine dependence; Restless leg syndrome 09/10/2013 Refill [facility] [address] [place] [address] Germán Bradley MD Medication Refill 08/30/2013 Refill [facility] [address] [place] [address] Nelda Fritz, AGRICULTURAL ENGINEER Medication Refill 08/26/2013 Telephone [facility] [address] [place] [address] Nelda Fritz, AGRICULTURAL ENGINEER Referral 08/26/2013 Refill [facility] [address] [place] [address] Germán Bradley MD Medication Refill 08/26/2013 11:20 AM EDT - 08/26/2013 11:59 PM EDT Hospital Encounter [facility] Physical [facility] [address] [place] [address] Yvrose Palma, PT Discharge Disposition: Home or Self Care 08/17/2013 1:17 PM EDT - 08/17/2013 11:59 PM EDT Hospital Encounter [facility] Physical [facility] [address] [place] [address] Yvrose Palma, PT Discharge Disposition: Home or Self Care 08/16/2013 Refill [facility] [address] [place] [address] Germán Bradley MD Medication Refill 08/16/2013 Refill [facility] [address] [place] [address] Dustin Mcintyre MD Medication Refill 08/12/2013 Refill [facility] [address] [place] [address] Marcela Ding MD Medication Refill 08/12/2013 Refill [facility] [address] [place] [address] Germán Bradley MD Medication Refill 08/12/2013 Refill [facility] [address] [place] [address] Dustin Mcintyre MD Medication Refill 07/27/2013 Telephone [facility] [address] [place] [address] Nelda Fritz CMA Medication Refill 07/23/2013 8:30 AM EDT - 07/23/2013 11:59 PM EDT Hospital Encounter [facility] [address] [place] [address] Los Gordon MD Sensorineural hearing loss, asymmetrical; Abnormal auditory perception, unspecified Discharge Disposition: Home or Self Care 07/07/2013 Refill [facility] [address] [place] [address] Nelda Fritz CMA Medication Refill 06/29/2013 2:00 PM EDT - 06/29/2013 11:59 PM EDT Hospital Encounter [facility] [address] [place] [address] Mag Becerra CCC-BUSINESS WRITER Discharge Disposition: Home or Self Care 06/25/2013 Refill [facility] [address] [place] [address] Dustin Mcintyre MD Medication Refill 06/01/2013 Telephone [facility] [address] [place] [address] Germán Bradley MD Labs Only 05/31/2013 4:54 PM EST - 05/31/2013 11:59 PM EST Hospital Encounter [facility] [place] [address] Well adult exam; Epilepsy (HCC) Discharge Disposition: Home or Self Care 05/31/2013 10:00 AM EST - 05/31/2013 4:53 PM EST Hospital Encounter [facility] [address] [place] [address] COPD (chronic obstructive pulmonary disease) (HCC); FHx: lung cancer; Cough Discharge Disposition: Home or Self Care 05/31/2013 9:15 AM EST Office Visit [facility] [address] [place] [address] Germán Bradley MD Well adult exam (Primary Dx); COPD (chronic obstructive pulmonary disease) (HCC); Epilepsy (HCC); GERD (gastroesophageal reflux disease); JB (generalized anxiety disorder); Atypical moles; FHx: prostate cancer; FHx: lung cancer; Cough; Tobacco abuse 05/26/2013 Telephone [facility] [address] [place] [address] Dustin Mcintyre MD Epistaxis 05/24/2013 Refill [facility] [address] [place] [address] Germán Bradley MD Medication Refill 05/21/2013 Refill [facility] [address] [place] [address] Dustin Mcintyre MD Medication Refill 05/21/2013 Refill [facility] [address] [place] [address] Germán Bradley MD Medication Refill 05/03/[address] [place] [address] Catrina Nelda Veronica [facility] Medication Refill 04/29/2013 10:15 AM EST Office Visit [facility] [address] [place] [address] Germán Bradley MD JB (generalized anxiety disorder) (Primary Dx); Back strain 04/15/[address] [place] [address] Marcela Ding MD Medication Refill 04/15/[address] [place] [address] Germán Bradley MD Medication Refill 03/24/[address] [place] [address] Veronica Freed MA Anxiety 03/16/[address] [place] [address] Chyna Mcgraw MA Referral (ORTHO) 03/15/2013 1:00 PM EST Office Visit [facility] [address] [place] [address] Dustin Mcintyre MD Arthralgia of shoulder region, right (Primary Dx); Arthritis of elbow, right; GERD (gastroesophageal reflux disease); RLS (restless legs syndrome); Epilepsy (HCC); Bipolar affective disorder (HCC); Generalized anxiety disorder; Asthma 03/14/2013 Refill [facility] [place] [address] [place] [address] Germán Bradley MD Medication Refill 03/05/2013 Telephone [place] [address] [place] [address] Dustin Mcintyre MD Medication Change 03/02/2013 2:15 PM EST Office Visit [place] [address] [place] [address] Dustin Mcintyre MD Shoulder pain (Primary Dx) 03/02/2013 1:27 PM EST - 03/02/2013 11:59 PM [facility] Hospital Encounter [place] [address] [place] [address] Kathy Wasserman, PT Discharge Disposition: Home or Self Care 03/01/2013 Refill [facility] [place] [address] [place] [address] Germán Bradley MD Medication Refill 03/01/2013 Refill [facility] [place] [address] [place] [address] Dustin Mcintyre MD Medication Refill 03/01/2013 Refill [facility] [place] [address] [place] [address] Marcela Ding MD Medication Refill 02/27/2013 Telephone [place] [address] [place] [address] Germán Bradley MD Other 02/26/2013 10:07 AM EST - 02/26/2013 11:59 PM EST Hospital Encounter [place] [address] [place] [address] Kathy Wasserman, PT Discharge Disposition: Home or Self Care 02/18/2013 12:51 PM EST - 02/18/2013 11:59 PM EST Hospital Encounter [place] [address] [place] [address] Kathy Wasserman, PT Discharge Disposition: Home or Self Care 02/12/2013 Refill [facility] [place] [address] [place] [address] Dustin Mcintyre MD Medication Refill 02/10/2013 9:06 AM EDT - 02/10/2013 11:59 PM EDT Hospital Encounter [address] [place] [address] Kathy Wasserman, PT Discharge Disposition: Home or Self Care 02/05/2013 12:26 PM EDT - 02/05/2013 11:59 PM EDT Hospital Encounter [address] [place] [address] Kathy Wasserman, PT Discharge Disposition: Home or Self Care 02/01/2013 Refill [facility] [address] [place] [address] Marcela Ding MD Medication Refill 01/29/2013 Telephone [facility] [address] [place] [address] Germán Bradley MD Medication Refill 01/18/2013 8:30 AM EDT - 01/18/2013 9:30 AM EDT Surgery [facility] [address] [place] [address] Crow Love MD SHOULDER ARTHROSCOPY LABRAL/BANKART/ BICEP TENODESIS (COVERS SUPERIOR LABRAL ANTERIOR POSTERIOR REPAIR/SLAP) 01/18/2013 5:21 AM EDT - 01/18/2013 12:50 PM EDT Hospital Encounter [facility] SAME DAY SURGERY [address] [place] [address] Crow Love MD Discharge Disposition: Home or Self Care 01/14/2013 Telephone SEP [address] [address] Germán Bradley MD Medication Reaction 01/08/2013 2:00 PM EDT Office Visit [facility] [address] [place] [address] Germán Bradley MD Infected inclusion cyst (Primary Dx); RLS (restless legs syndrome) 12/25/2012 12:38 PM EDT - 12/25/2012 11:59 PM EDT Hospital Encounter [facility] [address] [place] [address] Germán Bradley MD Rotator cuff syndrome of left shoulder Discharge Disposition: Home or Self Care 12/20/2012 9:52 AM EDT - 12/20/2012 11:16 AM EDT Emergency [facility] [place] [address] Pino Maxwell MD Foot sprain (Primary Dx) Discharge Disposition: Home or Self Care 12/16/2012 1:45 PM EDT Office Visit [facility] [address] [place] [address] Germán Bradley MD Rotator cuff syndrome of left shoulder (Primary Dx); Need for influenza vaccination 12/15/2012 Telephone [facility] [address] [place] [address] Germán Bradley MD Referral 12/11/[address] [place] [address] Marcela Ding MD Medication Refill 12/11/2012 Refill [facility] [address] [place] [address] Germán Bradley MD Medication Refill 12/02/2012 11:17 AM EDT - 12/02/2012 11:59 PM EDT Hospital Encounter [facility] Physical Therapy [facility] [address] [place] [address] Chyna Mathis, [place] Discharge Disposition: Home or Self Care 12/02/2012 10:00 AM EDT Office Visit [facility] [address] [place] [address] Germán Bradley MD Seborrhea (Primary Dx); Cervical lymphadenitis 11/19/2012 Refill [facility] [address] [place] [address] Germán Bradley MD Medication Refill 11/18/2012 10:41 AM EDT - 11/18/2012 11:59 PM EDT Hospital Encounter [facility] Physical Therapy [facility] [address] [place] [id number] Shanice Ybarra PT Rotator cuff syndrome (Primary Dx) Discharge Disposition: Home or Self Care 11/09/2012 12:11 PM EDT - 11/09/2012 11:59 PM EDT Hospital Encounter [facility] [address] [place] [address] Scoliosis; Back pain Discharge Disposition: Home or Self Care 11/09/2012 11:30 AM EDT Office Visit [facility] [address] [place] [address] Germán Bradley MD Rotator cuff syndrome Bilateral (Primary Dx) 11/05/2012 [address] [place] [place] [address] Germán Bradley MD Back Pain 11/03/2012 Telephone [address] [place] [address] Nelda Fritz CMA Back Pain 11/02/2012 5:12 PM EDT - 11/02/2012 11:59 PM EDT Hospital Encounter [facility] [address] Epilepsy (HCC) Discharge Disposition: Home or Self Care 11/02/2012 9:00 AM EDT Office Visit [facility] [address] [place] [address] Germán Bradley MD LBP (low back pain) (Primary Dx); Neck pain; Shoulder pain; JB (generalized anxiety disorder); Epilepsy (HCC) 10/31/2012 Refill [facility] [address] [place] [address] Nelda Fritz CMA Medication Refill 10/26/2012 Refill [facility] [place] [address] [place] [address] Germán Bradley MD Medication Refill 10/20/2012 Telephone [facility] [address] [place] [address] Dustin Mcintyre MD Other 10/14/2012 Telephone [facility] [place] [address] [place] [address] Dustin Mcintyre MD Medication Refill; Medication Change 10/09/2012 5:34 PM EDT - 10/09/2012 11:59 PM EDT Hospital Encounter [facility] LAB [facility] [place] [address] Epilepsy ([facility]); Generalized anxiety disorder Discharge Disposition: Home or Self Care 10/09/2012 Telephone [place] [address] [place] [address] Norma Greenfield MA Medication Change 10/09/2012 8:30 AM EDT Office Visit [place] [address] [place] [address] Dustin Mcintyre MD Epilepsy (HCC) (Primary Dx); GERD (gastroesophageal reflux disease); Asthma; Bipolar affective disorder (HCC); Generalized anxiety disorder; ED (erectile dysfunction) 06/20/2012 Refill [facility] [place] [address] [place] [address] Marcela Ding MD Medication Refill 05/01/2012 1:57 PM EST - 05/01/2012 11:59 PM EST Hospital Encounter [facility] Physical Therapy [facility] [address] [place] [phone] Kathy Wasserman, PT Discharge Disposition: Home or Self Care 04/24/2012 1:47 PM EST - 04/24/2012 11:59 PM EST Hospital Encounter [facility] [address] [place] [address] Kathy Wasserman, PT Discharge Disposition: Home or Self Care 04/17/2012 1:01 PM EST - 04/17/2012 11:59 PM EST Hospital Encounter [facility] [address] [place] [address] Kathy Wasserman, PT Discharge Disposition: Home or Self Care 04/16/2012 Refill [facility] [address] [place] [address] Marcela Ding MD Medication Refill 04/05/2012 5:08 PM EST - 04/05/2012 6:19 PM EST Emergency [facility] [address] [place] [address] Roshan Sanchez MD Chronic knee pain (Primary Dx) Discharge Disposition: Home or Self Care 03/09/2012 Refill [facility] [address] [place] [address] Marcela Ding MD Medication Refill 03/03/2012 Refill [facility] [address] [address] Marcela Ding MD Medication Refill 02/28/2012 8:15 PM EST - 02/28/2012 11:59 PM EST Hospital Encounter [facility] [place] [address] Epilepsy (HCC); Bipolar affective disorder (HCC); Abdominal pain Discharge Disposition: Home or Self Care 02/28/2012 10:20 AM EST Office Visit [facility] [address] [place] [address] Germán Bradley MD Epilepsy (HCC); Abdominal pain; Bipolar affective disorder (HCC); Asthma; Knee pain, left 01/17/2012 Telephone [facility] [address] [place] [address] Marcela Ding MD Medication Refill 12/21/2011 Refill [facility] [address] [place] [address] Germán Bradley MD Medication Refill 12/02/2011 7:06 PM EDT - 12/02/2011 11:59 PM EDT Hospital Encounter [facility] [address] Bipolar affective disorder (HCC); Encounter for long-term (current) use of medications Discharge Disposition: Home or Self Care 12/02/2011 10:20 AM EDT Office Visit [facility] [address] [place] [address] Dustin Mcintyre MD Knee pain, left (Primary Dx); Epilepsy (HCC); Bipolar affective disorder (HCC); Asthma; COPD (chronic obstructive pulmonary disease) (HCC); Anxiety; Encounter for long-term (current) use of medications 10/31/2011 Refill [place] [address] [place] [address] Germán Bradley MD Medication Refill 10/17/2011 [address] [place] [place] [address] Marcela Ding MD Other 10/01/2011 3:24 PM EDT - 10/01/2011 4:31 PM EDT Emergency [facility] [address] [place] [address] Mariaelena Rossi MD Contusion of third finger, right; Left elbow contusion; Fall Discharge Disposition: Home or Self Care 09/14/2011 Refill [facility] [address] [place] [address] Germán Bradley MD Medication Refill 08/23/2011 9:20 AM EDT Office Visit [facility] [address] [place] [address] Germán Bradley MD Osteoarthritis (Primary Dx); Asthma; Epilepsy (HCC); Arthritis shoulder and knee; GERD (gastroesophageal reflux disease); Bipolar affective disorder (HCC); CTS (carpal tunnel syndrome) 08/07/2011 12:58 PM EDT - 08/07/2011 2:03 PM EDT Emergency [facility] [address] [place] [address] Alfie Perez MD Carpal tunnel syndrome of right wrist; Rotator cuff injury Discharge Disposition: Home or Self Care 07/10/2011 Telephone [facility] [address] [facility] [place] [address] Germán Bradley MD Other 07/02/2011 [address]phone [address] [place] [address] Nelda Fritz, NIESHA Other (PA for celexa) 06/28/2011 9:51 AM EDT - 06/28/2011 11:59 PM EDT Hospital Encounter [facility] [address] [place] [address] Germán Bradley MD TMJ (dislocation of temporomandibular joint); Jaw pain; Dental decay Discharge Disposition: Home or Self Care 06/28/2011 9:20 AM EDT Office Visit [address] [place] [address] Germán Bradley MD Bipolar affective disorder (HCC); Anxiety; TMJ (dislocation of temporomandibular joint); Jaw pain; Dental decay 06/11/2011 Telephone [facility] [address] [facility] [place] [address] Marcela Ding MD Medication Refill 06/03/2011 8:09 PM EST - 06/03/2011 11:59 PM EST Hospital Encounter [facility] [place] [address] Bipolar affective disorder (HCC); Epilepsy (HCC) Discharge Disposition: Home or Self Care 06/03/2011 1:00 PM EST Office Visit [facility] [address] [place] [address] Germán Bradley MD Bipolar affective disorder (HCC); Asthma; Epilepsy (HCC) 05/18/2011 Refill [facility] [address] [place] [address] Germán Bradley MD Medication Refill 05/03/2011 Telephone [facility] [address] [place] [address] Nelda Fritz CMA Other 05/03/2011 10:50 AM EST Office Visit [place] [address] [place] [address] Germán Bradley MD Asthma (Primary Dx); Side pain; Abdominal wall pain; Bipolar affective disorder (HCC); Epilepsy (HCC) 04/17/2011 Refill [facility] [address] [place] [address] Germán Bradley MD Medication Refill 03/18/2011 Telephone [facility] [address] [place] [address] Cleopatra Duran 02/18/2011 2:20 PM EST - 02/18/2011 11:59 PM EST Hospital Encounter [facility] Physical [address] [place] [address] Chyna Mathis, PT Discharge Disposition: Home or Self Care 02/11/2011 2:30 PM EDT - 02/11/2011 11:59 PM EDT Hospital Encounter [facility] Physical [address] [place] [address] Chyna Mathis, PT Discharge Disposition: Home or Self Care 02/04/2011 2:24 PM EDT - 02/04/2011 11:59 PM EDT Hospital Encounter [facility] Physical Therapy [facility] [address] [place] [address] Chyna Mathis, [place] Discharge Disposition: Home or Self Care 01/11/2011 Telephone [facility] [place] [address] [place] [address] Marcela Ding MD Other 12/28/2010 Telephone [facility] [place] [address] [place] [address] Ipregan Lucy K Rectal Bleeding 12/19/2010 2:51 PM EDT - 12/19/2010 11:59 PM EDT Hospital Encounter [facility] [place] [address] Elevated glucose Discharge Disposition: Home or Self Care 12/19/2010 10:30 AM EDT Office Visit [place] [address] [place] [address] Gemrán Bradley MD Bipolar affective disorder (HCC); Epilepsy (HCC); Asthma; AR (allergic rhinitis); GERD (gastroesophageal reflux disease); Arthritis shoulder and knee; Elevated glucose 12/14/2010 Telephone [place] [address] [place] [address] Ipregan Lucy K Medication Refill 12/14/2010 Refill [place] [address] [place] [address] Germán Bradley MD Medication Refill 12/12/2010 1:22 PM EDT - 12/12/2010 2:55 PM EDT Emergency [facility] [address] [place] [address] Ty Griffiths DO Fibula fracture Discharge Disposition: Home or Self Care 12/08/2010 Telephone [place] [address] [place] [address] Inge Quinn, RMA Results 11/21/2010 8:29 PM EDT - 11/21/2010 11:59 PM EDT Hospital Encounter [facility] [place] [address] Lipid screening; Epilepsy (HCC); Encounter for long-term (current) use of medications Discharge Disposition: Home or Self Care 11/21/2010 10:30 AM EDT [facility] [facility] [place] [address] [address] Oralia Cruz Sabine Bipolar affective disorder (HCC); Epilepsy (HCC); Lipid screening; Encounter for long-term (current) use of medications 11/09/2010 [address] [place] [address] Germán Bradley MD Medication Refill 07/31/2010 2:00 PM EDT Office Visit [facility] [place] [address] [place] [address] Germán Bradley MD Asthma; Bronchitis; Rotator cuff syndrome 07/30/2010 Telephone [facility] [address] [place] [address] Lucy Redman 05/02/2010 11:30 AM EST Office Visit [facility] [place] [address] [address] Germán Bradley MD Epilepsy (HCC); Bipolar affective disorder (HCC); Asthma; COPD (chronic obstructive pulmonary disease) (HCC); GERD (gastroesophageal reflux disease); Osteoarthritis 04/30/2010 10:08 AM EST - 04/30/2010 11:59 PM EST Hospital Encounter EDG LAB KELVIN PROC[place] [address] Marcela Ding MD Encounter for long-term (current) use of other medications; Epilep NOS w/o intr epil; Bipolar disorder NOS Discharge Disposition: Home or Self Care 04/30/2010 9:50 AM EST Clinical Support [facility] [place] [address] [address] FrancoiseArabellaNellymarlon Reardon, RMA Epilepsy ([facility]); Bipolar affective disorder ([facility]) 2010 Telephone [facility] [address] [place] [address] Oralia Cruz Sabine, RMA Letter for School/Work ([place] [employer] form) 04/13/2010 Refill [facility] [address] [place] [address] Germán Bradley MD Medication Refill 03/17/2010 Refill SEP [address] [place] [address] Germán Bradley MD Medication Refill 02/12/2010 Refill SEP [address] [place] [address] Germán Bradley MD Medication Refill 01/16/2010 11:10 AM EDT Office Visit [facility] [address] [place] [address] Germán Bradley MD COPD (chronic obstructive pulmonary disease) ([facility]); Osteoarthritis of knee 12/21/2009 Refill SEP [address] [place] [address] Marcela Ding MD Medication Refill 12/07/2009 Refill SEP [address] [place] [address] Dustin Mcintyre MD Medication Refill 11/07/2009 7:59 PM EDT - 11/07/2009 11:59 PM EDT Hospital Encounter HST SUWT EDG Germán Bradley MD 11/07/2009 3:20 PM EDT Office Visit [facility] [address] [place] [address] Germán Bradley MD PUD (peptic ulcer disease) (Primary Dx); Bipolar affective disorder (HCC); Asthma; AR (allergic rhinitis) 11/04/2009 10:43 PM EDT - 11/05/2009 12:41 AM EDT Emergency HST GES MICHELLET Ty Griffiths, DO 10/12/2009 12:01 AM EDT - 10/26/2009 1:28 PM EDT Hospital Encounter HST PT Germán Odom MD 10/25/2009 9:30 AM EDT Office Visit [facility] [address] [place] [address] Germán Bradley MD AR (allergic rhinitis); GERD (gastroesophageal reflux disease); Rotator cuff syndrome; Bipolar affective disorder (HCC); Asthma; Epilepsy (HCC) 09/12/2009 12:01 AM EDT - 10/11/2009 11:59 PM EDT Hospital Encounter HST PT Marcela Villanueva MD Burke, Brennan C, MD 09/28/2009 Telephone [facility] [address] [place] [address] Francoise, Nelly Reardon, RMA Medication Problem 09/27/2009 Telephone SEP [facility] [address] [facility] [place] [address] Veronica Freed MA Other 09/27/2009 1:20 PM EDT Office Visit [facility] [address] [place] [address] Germán Bradley MD Rotator cuff syndrome; AR (allergic rhinitis); GERD (gastroesophageal reflux disease) 09/14/2009 2:06 AM EDT - 09/14/2009 11:59 PM EDT Emergency HST GES GRTy Rodriguez, DO 08/24/2009 2:55 PM EDT - 09/11/2009 11:59 PM EDT Hospital Encounter HST PT Marcela Villanueva MD 09/05/2009 Telephone [facility] [address] [place] [address] Germán Bradley MD Results 09/05/2009 Telephone SEP [facility] [address] [place] [address] Dustin Mcintyre MD Results 09/01/2009 12:01 AM EDT - 09/01/2009 11:59 PM EDT Hospital Encounter HST RADIOLOGY GRT Marcela Ding MD 08/26/2009 Telephone SEP [facility] [address] [place] [address] Germán Bradley MD Results 08/24/2009 3:04 PM EDT - 08/24/2009 11:59 PM EDT Hospital Encounter HST RADIOLOGY GRT Marcela Ding MD 08/24/2009 2:30 PM EDT Office Visit [facility] [address] [place] [address] Marcela Ding MD Shoulder pain (Primary Dx) 08/15/2009 Refill SEP [facility] [address] [place] [address] Nelda Fritz AGRICULTURAL ENGINEER Medication Refill 07/25/2009 5:37 PM EDT - 07/25/2009 11:59 PM EDT Hospital Encounter HST SUWT EDG Dustin Mcintyre MD 07/25/2009 3:00 PM EDT Office Visit [facility] [address] [place] [address] Germán Bradley MD Rotator cuff syndrome; Epilepsy (HCC); Encounter for long-term (current) use of other medications 06/26/2009 8:46 AM EDT - 06/26/2009 11:59 PM EDT Hospital Encounter HST RADIOLOGY GRT Wang Ospina 06/15/2009 Telephone SEP [facility] [address] [place] [address] Germán Bradley MD Other 06/15/2009 2:00 PM EST Office Visit [facility] [address] [place] [address] Germán Bradley MD Shoulder pain; Bipolar affective disorder (HCC) 06/06/2009 Telephone SEP [facility] [address] [place] [address] Nelda Fritz, AGRICULTURAL ENGINEER Seizures 05/30/2009 5:31 PM EST - 05/30/2009 11:59 PM EST Hospital Encounter HST EPIC CON UNK EDG Dustin Mcintyre MD 04/20/2009 Abstract SEP [facility] [address] [facility] [place] [address] Amb, Test Office Clerk Assistant Epilepsy ([facility]); Bipolar affective disorder ([facility]); Depression, major ([facility]); Asthma; COPD (chronic obstructive pulmonary disease) ([facility]); Hearing loss in left ear; GERD (gastroesophageal [...] PM EDT Hospital Encounter HST LAB EDG Dustni Mcintyre MD 07/20/2001 3:19 PM EDT - [...] Emergency HST EPIC CON UNK GRT David Plama MD 12/17/2000 4:52 PM EDT - 12/17/2000 [...] PM EDT Hospital [facility] 01/25/1999 5:20 PM EDT - 01/25/1999 11:59 PM EDT Hospital Encounter HST LAB EDG Dustin Mcintyre MD 12/26/1998 3:57 PM EDT - 12/26/1998 11:59 PM EDT Hospital Encounter HST LAB EDG Koffi Cunningham 11/20/1998 8:41 AM EDT - 11/20/1998 11:59 PM EDT Hospital Encounter HST GC SPEC SV MICHELLET iH Andrade MD 05/12/1998 2:11 PM EST - [...] Hospital Encounter HST EPIC CON UNK EDG [facility] 05/26/1997 6:49 PM EST - 05/26/1997 11:59 PM EST Emergency HST MAJOR ER EDG Ty Griffiths DO 12/26/1996 7:54 PM EDT - 12/26/1996 11:59 PM EDT Hospital Encounter [facility] 10/18/1996 5:34 PM EDT - 10/18/1996 11:59 PM EDT Emergency HST EPIC CON UNK EDG Augustine Baldwin MD 10/11/1996 10:10 AM EDT - 10/11/1996 12:10 PM EDT Hospital Encounter HST Jaime Perez MD 03/13/1996 6:17 PM EST - 03/13/1996 11:59 PM EST Hospital Encounter HST EPIC CON UNK [facility]OV [facility] 01/21/1996 7:05 PM EDT - 01/21/1996 11:59 PM EDT Hospital Encounter HST EPIC CON UNK COV [facility] 01/01/1996 8:11 PM EDT - 01/06/1996 2:05 PM EDT Hospital Encounter HST BH2 Rosa Clark MD 12/26/1995 8:21 AM EDT - 12/26/1995 11:59 PM EDT Hospital Encounter HST EPIC CON UNK [facility]OV [facility] 10/26/1995 9:59 PM EDT - 10/30/1995 1:44 PM EDT Hospital Encounter HST BH2 Wang Rosales MD Cohen, Raymond L 10/12/1995 7:54 PM EDT - 10/12/1995 11:59 PM EDT Hospital Encounter HST EPIC CON UNK [facility]OV [facility] 10/04/1995 9:50 PM EDT - 10/07/1995 12:05 [...] 9 Active fluticasone (FLONASE) 50 mcg/actuation Nasl Aptos, SuspensionIndicati ons:Chronic seasonal allergic rhinitis due to [...] Mother 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 Smoking Status as of 11/03/2024 Tobacco Use Types Packs/Day Years Used Date [...] on file Medical Devices Implanted Type Area Television News Reporter Device Identifier Shelf Expiration Date Model / Serial / Lot Makanda Lupine Br W/Dual Suture Orthocord - [id number] Implanted:Qty : 1 on 01/18/2013 by Crow Love MD at [facility] Left: Shoulder J&J:ETHICON:MITE K PRDT [id number] 06/12/2015 [id number] / / [id number] Makanda Lupine Br W/Dual Suture Orthocord - [id number] Implanted:Qty : 1 on 01/18/2013 by Crow Love MD at [facility] Left: Shoulder J&J:ETHICON:MITE K PRDT [id number] 06/11/2014 [id number] / / [id number] Makanda Advance Healix 5.5 Br - [id number] Implanted:Qty : 1 on 06/20/2015 by Crow Love MD at [facility] Right: Shoulder J&J:ETHICON:MITE K PRDT 05/14/2017 [id number] / / [id number] Procedures Procedure Name Priority Date/Time Associated Diagnosis [...] meniscus of knee, current Special Needs FAX CPT;86060 [id number] POCT EKG Routine 06/08/2014 10:16 AM EST [...] Chronic maxillary sinusitis Special Needs NICOL CPT; 19955/26323 HEPATIC FUNCTION PANEL Routine 4 11:31 AM [...] EDT Rotator cuff (capsule) sprain Special Needs CPT;15739 44514 [id number] MRI SHOULDER LEFT WO CONTRAST Routine 12/25/2012 [...] - 946 pg/mL 06/01/2018 4:11 PM EST [employer] Folate >16.00(H) 4.50 - 16.00 ng/mL 06/01/2018 4:11 PM EST [employer] Blood VENOUS BLOOD / Unknown Venipuncture / Unknown 06/01/2018 10:14 AM EST 06/01/2018 10:14 AM EST Narrative PREFERRED [facility] - 06/01/2018 4:11 PM EST Ingestion of roxanna doses of biotin (>5 mg/day) taken within 8 hours of drawing blood sample can interfere with this immunoassay test. us Dustin Mcintyre MD CHEMISTRY ORDERABLES F inal Result PREFERRED [facility] [address] [facility] , [place] [address] * TSH REFLEX (06/01/2018 10:14 AM EST) TSH Reflex 1.640 0.270 - 4.200 mcIU/mL 06/01/2018 3:53 PM EST PREFERRED [facility], [facility] Blood VENOUS BLOOD / Unknown Venipuncture / Unknown 06/01/2018 10:14 AM EST 06/01/2018 10:14 AM EST Narrative [facility] - 06/01/2018 3:53 PM EST Ingestion of roxanna doses of biotin (>5 mg/day) taken within 8 hours of drawing blood sample can interfere with this immunoassay test. Dustin Mcintyre MD CHEMISTRY ORDERABLES F inal Result Performing Organization Address City/[facility]/ZIP Co de Phone Number [facility] [email or web address] [address] , [place] [address] * (ABNORMAL) ACUTE HEPATITIS PANEL (06/01/2018 10:14 AM EST) Only the most recent of2 resultswithin the time period is included. Pathologist [facility] Hep Bs Ag Non-Reacti ve Non-Reacti ve 06/02/2018 11:57 AM EST [facility] Hep B Core IgM Non-Reacti ve Non-Reacti ve 06/02/2018 11:57 AM EST [facility], [facility] Hep A IgM Non-Reacti ve Non-Reacti ve 06/02/2018 11:57 AM EST [facility] Hep C Ab Reactive(A ) Non-Reacti ve 06/02/2018 11:57 AM EST [facility] Comment:Reactive. Antibodies to HCV detected. >97% of specimens with high signal cutoff confirm as reactive. HCV QUANT W/RFLX TO GENOTYPE -REF LAB Blood VENOUS BLOOD / Unknown Venipuncture / Unknown 06/01/2018 10:14 AM EST 06/01/2018 10:14 AM EST Dustin Mcintyre MD CHEMISTRY ORDERABLES F inal Result Performing Organization Address City/[facility]/ZIP Co de Phone Number [facility], [address] , [place] [address] * (ABNORMAL) CBC WITH DIFF [...] 3:19 PM EST [facility] [place] Percent 11.4 % 06/01/2018 3:19 PM EST [facility] Eos Percent 3.8 % 06/01/2018 3:19 PM EST [facility] Baso Percent 0.6 % 06/01/2018 3:19 PM EST [facility] Neut # 3.4 1.6 - 6.1 x10(3)/mcL 06/01/2018 3:19 PM EST [facility] Comment:Neutrophils equals s egs plus bands IMMGRAN# 0.0 0.0 - 0.1 x10(3)/[facility] 06/01/2018 3:19 PM EST [facility], [facility] Comment:Automated count of m etamyelocytes, myelocytes and promyelocytes. An absolute IG <0.1 is reported as 0.0. Lymph # 2.1 1.2 - 3.9 x10(3)/[facility] 06/01/2018 3:19 PM EST [facility] [place] # 0.8 0.3 - 0.9 x10(3)/[facility] 06/01/2018 3:19 PM EST [facility] Eos# 0.3 0.0 - 0.5 x10(3)/[facility] 06/01/2018 3:19 PM EST [facility] Baso # 0.0 0.0 - 0.1 x10(3)/[facility] 06/01/2018 3:19 PM EST [facility], [facility] Blood VENOUS BLOOD / Unknown Venipuncture / Unknown 06/01/2018 10:14 AM EST 06/01/2018 10:14 AM EST Dustin Mcintyre MD HEMATOLOGY ORDERABLES Final Result Performing Organization Address [facility] Co de Phone Number [facility] [email or web address] [address] , [place] [address] * (ABNORMAL) PHENYTOIN LEVEL TOTAL (06/01/2018 10:14 AM EST) Only the most recent of20 resultswithin the time period is included. Dilantin 9.0(L) 10.0 - 20.0 mcg/mL 06/01/2018 3:51 PM EST [facility] Blood VENOUS BLOOD / Unknown Venipuncture / Unknown 06/01/2018 10:14 AM EST 06/01/2018 10:14 AM EST Dustin Mcintyre MD CHEMISTRY ORDERABLES F inal Result Performing Organization Address [facility] Co de Phone Number [facility] [address] [facility] , [place] [address] * (ABNORMAL) COMPREHENSIVE METABOLIC PANEL (06/01/2018 10:14 [...] mL/min/1.7 3 m2 06/01/2018 3:53 PM EST [facility] GFR Non Afr Am 96 >=60 mL/min/1.7 3 m2 06/01/2018 3:53 PM EST [facility] Comment: This estimated GFR was [...] ORDERABLES F inal Result [facility], [facility] [address] [facility], [place] [address] [facility] [address] [place] [address] * POCT URINALYSIS DIPSTICK (06/01/2018 9:40 AM EST) Only the most recent of4 resultswithin the time period is included. 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 SEP area operations manager Grav, UA 1.025 1.001 - 1.035 G/DL SEP OFFICE Blood, UA neg POS/NEG SEP OFFICE pH, UA 6.0 5.0 - 8 SEP OFFICE Protein, UA neg POS/NEG SEP OFFICE Urobilinogen, UA 1+ 0.2 - 1.0 MG/DL SEP OFFICE Leukocytes, UA neg POS/NEG SEP OFFICE Nitrite, UA neg POS/NEG SEP OFFICE UA Appear POC SEP OFFICE Lot Number [id number] SEP OFFICE Expiration Date 12/22/2019 SEP OFFICE [...] 207(H) <=200 mg/dL 12/05/2017 3:59 PM EDT [facility] Comment: < 200 Desirable 200 - 239 Borderline High >= 240 High Triglyceride 316(H) <=150 mg/dL 12/05/2017 3:59 PM EDT [email or web address] Comment: < 150 Normal 150 - 199 Borderline High 200 - 499 High >= 500 Very High HDL 33(L) >=40 mg/dL 12/05/2017 3:59 PM EDT [email or web address] Comment: > 60 Optimal 40 - 60 Acceptable < 40 Low LDL Calculated 111(H) <=100 mg/dL 12/05/2017 3:59 PM EDT [email or web address] Non-HDL-C Calculated 174(H) <=129 mg/dL 12/05/2017 3:59 PM EDT [email or web address] Comment: <130 Desirable 130-159 Above Desirable 160-189 Borderline High 190-219 High >= 220 Very High Blood VENOUS BLOOD / Unknown Venipuncture / Unknown 12/05/2017 9:03 AM EDT 12/05/2017 9:03 AM EDT us Germán rBadley MD CHEMISTRY ORDERABLES Final Re sult [facility] [address] [facility] [facility] , [place] [address] * DRUGS OF ABUSE, SCREEN ONLY, URINE (06/30/2017 10:59 PM EDT) Only the most recent of2 resultswithin the time period is included. 6 AM (Heroin) Absent Absent 06/30/2017 11:29 PM EDT [facility] Amphetamines Absent Absent 06/30/2017 11:29 PM EDT [facility] Barbiturates Absent Absent 06/30/2017 11:29 PM EDT [facility] Benzodiazepines Absent Absent 8 11:29 PM EDT [facility] Buprenorphine Absent Absent 06/30/2017 11:29 PM EDT [facility] Cannabinoid Metabolite Absent Absent 06/30/2017 11:29 PM EDT [facility] Cocaine Metabolite Absent Absent 2017 11:29 PM EDT [facility] Methadone and Metabolite Absent Absent 06/30/2017 11:29 PM EDT [facility] Opiate Absent Absent 06/30/2017 11:29 PM EDT [facility] Oxycodone Lvl Absent Absent 06/30/2017 11:29 PM EDT [facility] Phencyclidine Absent Absent 06/30/2017 11:29 PM EDT [facility] Creatinine Ur >25.0 mg/dL 06/30/2017 11:29 PM EDT [facility] Comment: Greater than 20: Consistent with valid sample Greater than 2 but less than 20: Possible dilution Less than 2: Questionable valid sample Urine STRUCTURE OF URINARY TRACT PROPER / Unknown 06/30/2017 10:59 PM EDT 06/30/2017 11:03 PM EDT Narrative [facility] - 06/30/2017 11:29 PM EDT These [...] ORDERABLES Final Resul t Performing Organization Address [facility] de Phone Number [facility] [address] [place] [address] * EXTRA GOLD SST (06/30/2017 10:18 PM EDT) Blood VENOUS BLOOD / Unknown Venipuncture / Unknown 06/30/2017 10:18 PM EDT 06/30/2017 10:27 PM EDT us Robbie Queen MD CHEMISTRY ORDERABLES Final Resul t Performing Organization Address [facility] de Phone Number [facility] [address] [place] [address] * EXTRA LAVENDER (06/30/2017 10:18 PM EDT) Blood VENOUS BLOOD / Unknown Venipuncture / Unknown 06/30/2017 10:18 PM EDT 06/30/2017 10:27 PM EDT us Robbie Queen MD HEMATOLOGY ORDERABLES Final Resu lt Performing Organization Address [facility] de Phone Number [facility] [address] [place] [address] * EXTRA LIGHT BLUE (06/30/2017 10:18 PM EDT) Only the most recent of2 resultswithin the time period is included. Blood VENOUS BLOOD / Unknown Venipuncture / Unknown 06/30/2017 10:18 PM EDT 06/30/2017 10:27 PM EDT us Robbie Queen MD HEMATOLOGY ORDERABLES Final Resu lt Performing Organization Address [facility] Co de Phone Number [facility] [address] [place] [address] * (ABNORMAL) ALCOHOL MEDICAL (06/30/2017 10:18 PM EDT) Only the most recent of2 resultswithin the time period is included. Alcohol Medical 36(H) <=10 mg/dL 06/30/2017 10:39 PM EDT [facility] Blood VENOUS BLOOD / Unknown Venipuncture / Unknown 06/30/2017 10:18 PM EDT 06/30/2017 10:26 PM EDT us Robbie Queen MD CHEMISTRY ORDERABLES Final Resul t Performing Organization Address [facility] de Phone Number [facility] [address] [place] [address] * ACETAMINOPHEN LEVEL (06/30/2017 10:18 PM EDT) Only the most recent of2 resultswithin the time period is included. Acetaminophen Lvl <15.0 mcg/mL 018 11:16 PM EDT [facility] Blood VENOUS BLOOD / Unknown Venipuncture / Unknown 06/30/2017 10:18 PM EDT 06/30/2017 10:27 PM EDT Narrative [facility] - 06/30/2017 11:16 PM EDT Therapeutic: 10-30 mcg/ml Supratherapeutic: > 35 mcg/ml Toxic: > 150 mcg/ml (4h post ingestion) > 75 mcg/ml (8h post ingestion) > 40 mcg/ml (12h post ingestion) us Holly Brannon APRN CHEMISTRY ORDERABLES Final R esult Performing Organization Address [facility] Co de Phone Number [facility] [address] [place] [address] * SALICYLATE LEVEL (06/30/2017 10:18 PM EDT) Only the most recent of2 resultswithin the time period is included. Salicylate <0.3 <=0.3 mg/dL 06/30/2017 11:16 PM EDT [facility] Blood VENOUS BLOOD / Unknown Venipuncture / Unknown 06/30/2017 10:18 PM EDT 06/30/2017 10:27 PM EDT us Holly Brannon HOT MILL WORKER CHEMISTRY ORDERABLES Final R esult [facility] [address] [place] [address] * (ABNORMAL) BASIC METABOLIC PANEL (06/30/2017 10:18 PM EDT) Only the most recent of5 resultswithin the time period is included. Pathologist [facility] Sodium 142 136 - 145 mmol/L 06/30/2017 11:16 PM EDT [facility] Potassium 4.1 3.5 - 5.0 mmol/L 06/30/2017 11:16 PM EDT [facility] Chloride 101 98 - 107 mmol/L 06/30/2017 11:16 PM EDT [facility] Total CO2 26 22 - 29 mmol/L 06/30/2017 11:16 PM EDT [facility] Anion Gap 15 7 - 16 mmol/L 06/30/2017 11:16 PM EDT [facility] Calcium 9.4 8.6 - 10.2 mg/dL 06/30/2017 11:16 PM EDT [facility] Glucose Lvl 115(H) 74 - 100 mg/dL 06/30/2017 11:16 PM EDT [facility] BUN 12 6 - 20 mg/dL 06/30/2017 11:16 PM EDT [facility] Creatinine 0.96 0.67 - 1.30 mg/dL 06/30/2017 11:16 PM EDT [facility] GFR Afr Am 110 mL/min/1.7 3 m2 06/30/2017 11:16 PM EDT [facility] GFR Non Afr Am 95 mL/min/1.7 3 m2 06/30/2017 11:16 PM EDT [facility] Comment: GFR Afr Am and GFR [...] 06/30/2017 10:26 PM EDT us Holly Brannon HOT MILL WORKER CHEMISTRY ORDERABLES Final R esult [facility] [address] [place] [id number] * XR WRIST RIGHT PA LATERAL AND OBLIQUE (05/26/2017 9:46 PM EST) Anatomical Region Laterality Modality Wrist Radiographic Thao ging 05/26/2017 9:46 PM EST Impressions 05/26/2017 10:07 PM EST Negative exam. Narrative 05/26/2017 10:07 PM EST XR WRIST RIGHT PA LATERAL AND OBLIQUE, 05/26/2017 9:46 PM CLINICAL HISTORY: -MEDICAL CLEARANCE FOR CUSTODIAL COMPARISON: None. PROCEDURE COMMENTS: 4 routine views of the right wrist. FINDINGS: No fracture, dislocation or radio-opaque foreign body. Navicular fractures can be occult on initial radiographs. If there is snuff-box tenderness consider follow-up radiographs in 10 to 14 days. Procedure Note Mauro Rosas MD - 05/26/2017 XR WRIST RIGHT PA LATERAL AND OBLIQUE, 05/26/2017 9:46 PM CLINICAL HISTORY: -MEDICAL CLEARANCE FOR CUSTODIAL COMPARISON: None. PROCEDURE COMMENTS: 4 routine views [...] 9:45 PM CLINICAL HISTORY: -MEDICAL CLEARANCE FOR CUSTODIAL COMPARISON: None. PROCEDURE COMMENTS: 3 routine radiographs [...] 9:45 PM CLINICAL HISTORY: -MEDICAL CLEARANCE FOR CUSTODIAL COMPARISON: None. PROCEDURE COMMENTS: 3 routine radiographs [...] ORDERAB LES Final Result Performing Organization Address City/[facility] Co de Phone Number [facility] [address] [place] [address] * URINALYSIS (04/16/2017 1:05 AM EST) Only the most recent of3 resultswithin the time period is included. UA Color Yellow 04/16/2017 1:[address] [facility] UA Appear Clear Clear 04/16/2017 1:[address] [facility] UA Glucose Negative Negative mg/dL 04/16/2017 1:[address] [facility] UA Ketones Negative Negative mg/dL 04/16/2017 1:[address] [facility] UA Blood Negative Negative 04/16/2017 1:[address] [facility] UA pH 6.0 5.0 - 8.0 pH 04/16/2017 1:[address] [facility] UA Protein Negative Negative mg/dL 04/16/2017 1:[address] [facility] UA Urobilinogen 0.2 <=1 E.U./dL 04/16/19 18 1:[address] [facility] UA Nitrite Negative Negative 04/16/2017 1:[address] [facility] UA Leuk Est Negative Negative 04/16/2017 1:[address] [facility] UA Spec Grav 1.025 1.001 - 1.035 no units 04/16/2017 1:[address] [facility] Comment: Reference range valid for random specimens only. Urine URINE SPECIMEN COLLECTION, CLEAN CATCH / Unknown 04/16/2017 1:05 AM EST 04/16/2017 1:17 AM EST us Jose Carlos Rasheed MD URINE ORDERABLES Final Result Performing Organization Address City/[facility] Co de Phone Number [facility] [address] [place] [address] * LDL, CALCULATED (01/07/2017 10:30 AM EDT) [...] ORDERABLES F inal Result Performing Organization Address [facility] de Phone Number [address] [address] * (ABNORMAL) DIFFERENTIAL (01/07/2017 10:30 AM EDT) Only the most recent of11 resultswithin the time period is included. Neut Percent 48.5 % [facility] Lymph Percent 34.1 % [facility] [place]co Percent 9.2 % [facility] Eos Percent 6.9 % [facility] Baso Percent 1.3 % [facility] Neut# 3.9 1.8 - 7.7 x10(3)/mcL [facility] Lymph# 2.7 0.6 - 4.8 x10(3)/[facility] Wasco# 0.7 0.0 - 1.3 x10(3)/[facility] Eos# 0.6(H) 0.0 - 0.5 x10(3)/[facility] Baso# 0.1 0.0 - 0.2 x10(3)/[facility] Blood specimen (specimen) 01/07/2017 10:30 AM EDT 01/07/2017 3:48 PM EDT us Dustin Mcintyre MD HEMATOLOGY ORDERABLES Final Result Performing Organization Address [facility] Co de Phone Number [address] [address] * XR KNEE RIGHT AP LAT INT [...] EST) 05/06/2016 8:51 AM EST Impressions [facility] - 05/06/2016 8:51 AM EST Good [...] Bradley MD PFT ORDERABLES Final Result [facility] [address] [place] [address] * POCT EKG (04/29/2016 2:23 PM EST) Only the most recent of4 resultswithin the time period is included. 04/29/2016 2:23 PM EST Impressions SEP OFFICE - 04/29/2016 2:23 PM EST nsr No ischemia Normal ekg Germán Bradley MD POINT OF CARE CARDIOLOGY Zayra l Result Performing Organization Address City/[facility]/ZIP Co de Phone Number SEP OFFICE * SYPHILIS SCREEN WITH REFLEX RPR QUANT (04/01/2016 4:37 PM EST) TREP(SYPHILIS) AB INDEX <0.10 <=1.09 Index Value [facility] Comment: <0.90 - Negative 0.90 to 1.00 - Equivocal Patients with equivocal results should be retested in 7-14 days. >=1.10 - Positive NOTE: All equivocal and positive results will be reflexed to Quantitative Non-Treponemal(RPR)test. Blood specimen (specimen) UPPER LIMB STRUCTURE / Unknown 04/01/2016 4:37 PM EST 04/01/2016 8:41 PM EST Germán Bradley MD CHEMISTRY ORDERABLES Final Re sult Performing Organization Address [facility] [place] [address] * XR LUMBAR SPINE AP AND LATERAL [...] DIAGNOSTIC IMAGING ORDERABLE S Final Result * UT US LOWER EXTREMITY VENOUS LEFT (06/23/2015 6:16 [...] BLOCK (06/20/2015 7:47 AM EST) Narrative [facility] - 06/20/2015 7:47 AM EST Jerson [...] bill Result - Final Performing Organization Address [facility] de Phone Number [facility] [address] [place] [address] * LDL DIRECT (04/20/2015 9:44 AM EST) Only the most recent of5 resultswithin the time period is included. LDL Direct 65 <=100 mg/dL [facility] Comment: < 100 Optimal 100 - 129 Near or above optimal 130 - 159 Borderline High 160 - 189 High >= 190 Very High Blood specimen (specimen) 04/20/2015 9:44 AM EST 04/20/2015 3:48 PM EST us Germán Bradley MD CHEMISTRY ORDERABLES Final Re sult Performing Organization Address [facility] Co de Phone Number [facility] [address] [place] [address] * MRI SHOULDER RIGHT WO CONTRAST (03/22/2015 [...] WBC 7.2 4.0 - 11.0 x10(3)/mcL [facility] RBC 4.86 4.30 - 5.81 x10(6)/mcL [facility] Hgb 16.1 13.5 - 17.1 gm/dL [facility] Hct 47.6 38.9 - 51.6 % [facility] MCV 97.9 82.5 - 99.8 fL [facility] MCH 33.1 27.0 - 34.3 pg [facility] MCHC 33.8 32.1 - 35.3 gm/dL [facility] RDW 13.6 11.5 - 15.0 % [facility] Platelet 211 144 - 423 x10(3)/mcL [facility] MPV 9.2 6.8 - 10.8 fL [facility] Blood specimen (specimen) UPPER LIMB STRUCTURE / Unknown 11/04/2014 10:36 AM EDT 11/04/2014 4:05 PM EDT Dustin Mcintyre MD HEMATOLOGY ORDERABLES Final Result Performing Organization Address City/State/[facility] Co de Phone Number [facility] [address] [place] [address] * SCANNED PATHOLOGY REPORT (09/20/2014 5:07 PM [...] EST 03/08/2014 3:39 PM EST Narrative [facility] - 03/16/2014 8:03 AM EST [employer]-See attached Fax to [phone] us Los Gordon MD HEMATOLOGY ORDERABLES Edited Result - Final [facility] [address] [place] [address] * SCANNED PRE/POST PROCEDURES (02/08/2014 1:26 AM [...] Saldana (Electronicall y signed by) Verified: 02/07/2014 [facility] Clinical Information Chronic maxillary sinusitis. Gross [...] and the findings corroborate the diagnosis. [facility] 02/04/2014 8:20 AM EDT us Los Gordon MD PATHOLOGY ORDERABLES Final R esult [facility] [address] [place] [address] * FUNGUS CULTURE-OTHER (02/04/2014 8:00 AM EDT) Final No growth of fungus at 4 weeks [facility] Specimen from nose (specimen) NASAL STRUCTURE / Unknown 02/04/2014 8:00 AM EDT 02/04/2014 10:08 AM EDT Comment:LEFT MAX SINUS SWAB Narrative [facility] - 03/04/2014 4:01 PM EST Aerobic, anaerobic, fungus culture from left maxillary sinus Los Gordon MD MICROBIOLOGY - GENERAL ORDER MK Final Result [facility] [address] [place] [address] * WOUND CULTURE (02/04/2014 8:00 AM EDT) GS No slide sent/smear made after culture inoculated Rare WBC's Rare RBC's Rare Gram positive cocci [facility] Final Moderate growth of Staphylococcus aureus Sparse growth of Coagulase negative staphylococci No further workup Moderate growth of beta hemolytic Streptococci suspect Streptococcus anginosus group No further workup [facility] Organism Staphylococcus aureus [facility] Specimen from nose (specimen) NASAL STRUCTURE / Unknown 02/04/2014 8:00 AM EDT 02/04/2014 10:08 AM EDT Comment:LEFT MAX SINUS SWAB Narrative [facility] - 02/07/2014 9:08 AM EDT Aerobic, [...] ORDER MK Final Result Performing Organization Address [facility] de Phone Number [facility] [address] [place] [address] * ANAEROBIC CULTURE (02/04/2014 8:00 AM EDT) Final No anaerobic growth at 5 days [facility] Specimen from nose (specimen) NASAL STRUCTURE / Unknown 02/04/2014 8:00 AM EDT 02/04/2014 10:08 AM EDT Comment:LEFT MAX SINUS SWAB Narrative [facility] - 02/10/2014 5:01 PM EDT Aerobic, anaerobic, fungus culture from left maxillary sinus Los Gordon MD MICROBIOLOGY - GENERAL ORDER MK Final Result Performing Organization Address [facility] de Phone Number [facility] [address] [place] [address] * HEPATIC FUNCTION PANEL (01/24/2014 11:31 AM EDT) Only the most recent of2 resultswithin the time period is included. Total Protein 6.8 6.4 - 8.3 gm/dL [facility] Albumin 4.2 3.5 - 5.2 gm/dL [facility] Bili Direct <0.2 0.0 - 0.3 mg/dL [facility] Bili Total 0.1 0.1 - 1.4 mg/dL [facility] AST 40 <=40 IU/L [facility] ALT 38 <=41 IU/L [facility] Alk Phos 106 40 - 129 IU/L [facility] Blood specimen (specimen) UPPER LIMB STRUCTURE / Unknown 01/24/2014 11:31 AM EDT 01/24/2014 2:38 PM EDT Koffi Jay MD CHEMISTRY ORDERABLES Edited R esult - Final Performing Organization Address [facility] Co de Phone Number [facility] [address] [place] [address] * XR WRIST LEFT PA LATERAL AND [...] AM EDT) Total PSA 0.66 ng/mL [facility] Comment: 2008 AUA Best Practice Statement Guidelines-Age Adjusted Reference Intervals: Age Range Whites Americans Americans 40-49 years 0-2.5 ng/mL 0-2.0 ng/mL 0-2.0 ng/mL 50-59 years 0-3.5 ng/mL 0-4.0 ng/mL 0-3.0 ng/mL 60-69 years 0-4.5 ng/mL 0-4.5 ng/mL 0-4.0 ng/mL 70-79 years 0-6.5 ng/mL 0-5.5 ng/mL 0-5.0 ng/mL [facility] uses the [employer] Total PSA assay, which is approved as [...] MD CHEMISTRY ORDERABLES F inal Result [facility] [address] [place] [address] * MRI BRAIN W WO CONTRAST (07/23/2013 [...] be called to his cell phone at [phone]. This call was not made by radiology. [...] results be called to his cell phone [phone]. This call was not made by radiology. Richards us Germán Bradley MD [facility] DIAGNOSTIC IMAGING ORDERA BLES Final Result * [...] trauma. IMPRESSION: Negative exam. Mariaelena Rossi MD [facility] DIAGNOSTIC IMAGING ORDER MK Final Result * [...] EDT) Hgb A1c 5.3 <=7.0 % [facility] Comment: Initial Diagnostic Criteria < 5.7 % Normal 5.7 - 6.4 % At risk for diabetes mellitus >= 6.5 % Consistent with diabetes mellitus Diabetes monitoring Target Value (ADA recommended): < 7 % Blood specimen (specimen) UPPER LIMB STRUCTURE / Unknown 12/19/2010 11:00 AM EDT 12/19/2010 4:04 PM EDT Germán Bradley MD CHEMISTRY ORDERABLES Final Re sult [facility] [address] [place] [address] * XR ANKLE RIGHT AP LATERAL AND [...] H pylori IgG 0.44 Index Value [facility] Comment: I.V. = Index Value I.V. < 0.90 No detectable IgG antibodies to H. Pylori I.V. 0.90 - 1.09 Equivocal for IgG antibodies to H. Pylori. Re-testing a new specimen is recommended. I.V. >= 1.10 H. Pylori IgG antibody detected. Blood specimen (specimen) 11/07/2009 4:13 PM EDT 11/07/2009 8:55 PM EDT us Germán Bradley MD IMMUNOLOGY ORDERABLES Final R esult [facility] [address] [place] [address] * SCANNED EKG (11/06/2009 12:00 AM EDT) Anatomical Region Laterality Modality Other Narrative 11/06/2009 9:16 AM EDT Ordered by an unspecified provider. Transcriptions Unknown, Unknown - 11/06/2009 5:12 AM EDT us Unknown Unknown IMG ECG ORDERABLES Final Result * TROPONIN-I (11/05/2009 12:01 AM EDT) Troponin-I 0.01 ng/mL [facility] Comment: Note: New reference ranges for [...] DO CHEMISTRY ORDERABLES Final Re sult [facility] [address] [place] [address] * XR CHEST PORTABLE GC (11/04/2009 11:28 [...] normal limits. IMPRESSION- Normal portable chest . Agricultural Equipment Design Engineer- ALBERT CRAIG MD Reading Physician- ALBERT CRAIG [...] normal limits. IMPRESSION- Normal portable chest . Agricultural Equipment Design Engineer- ALBERT CRAIG MD Reading Physician- ALBERT CRAIG MD Released Date Time- 11/04/09 2352 us Ty Griffiths DO [facility] HISTORICAL F inal Result * (ABNORMAL) PHENOBARBITAL LEVEL (11/04/2009 11:27 PM EDT) Phenobarbital Lvl <3.0(L) 15.0 - 40.0 mcg/mL [facility] Blood specimen (specimen) 11/04/2009 11:27 PM EDT 11/05/2009 6:47 PM EDT Ty Griffiths DO CHEMISTRY ORDERABLES Final Re sult [facility] [address] [place] [address] * EK EKG REG GC (11/04/2009 11:02 PM EDT) Only the most recent of3 resultswithin the time period is included. Anatomical Region Laterality Modality Other 11/04/2009 11:0 2 PM EDT Narrative 11/06/2009 2:48 PM EDT Sinus bradycardia Normal ECG except for rate Agricultural Equipment Design Engineer- TY Healy PhysicianJenni FOY Released Date Time- 11/06/09 1448 Procedure Note Ty Foy S - 11/06/2009 Sinus bradycardia Normal ECG except for rate Agricultural Equipment Design Engineer- TY Healy Physician- TY FOY Released Date Time- 11/06/09 1448 Ty Griffiths DO [facility] STAR CARD HISTORICAL Final Result * [...] 3. Degenerative changes of the AC joint. Agricultural Equipment Design Engineer- LISSETTE Healy Physician- MEMO TONG M.D. Released [...] 3. Degenerative changes of the AC joint. Agricultural Equipment Design Engineer- LISSETTE Healy Physician- MEMO TONG M.D. Released Date Time- 09/01/09 1124 Marcela Ding MD [facility] GARRICK Thomas Final Result * XR [...] radiographically on the right than the left. Agricultural Equipment Design Engineerdamaso Healy Physician- MEMO TONG M.D. Released Date [...] Time- 08/24/091914 Marcela Ding MD IMG [facility] GARRICK RAD CHARANICA L Final Result * SCANNED ECG (08/03/2009 12:00 AM EDT) Only the most recent of2 resultswithin the time period is included. Anatomical Region Laterality Modality Other Narrative 08/03/2009 6:51 PM EDT Ordered by an unspecified provider. Transcriptions Unknown, Unknown - 08/03/2009 2:51 PM EDT us Unknown Unknown [facility] ECG ORDERABLES Final Result * MR ORBIT,FACE [...] Diffuse cerebellar hemisphere atrophy of uncertain etiology. 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 Agricultural Equipment Design Engineer- RADHA CEE Reading Physician- CEASAR MARROQUIN MD Released Date Time- 06/26/09 1604 Wang Ospina [facility] RAD HISTORICAL Fin al Result * MR [...] medial meniscus, also apparent on plain films. Agricultural Equipment Design Engineer- PETTY LEVIN Reading Physician- LEONARDO PUCKETT MD [...] medial meniscus, also apparent on plain films. Agricultural Equipment Design Engineer- PETTY Healy Physician- LEONARDO PUCKETT MD Released Date Time- 09/19/082050 Germán Bradley MD [facility] RAD HISTORICAL F inal Result * XR LOWER LEG TIBIA/FIBULA GC (09/09/2008 1:55 PM EDT) Anatomical Region Laterality Modality Other 09/09/2008 1:55 PM EDT Narrative 09/09/2008 6:39 PM EDT Examinations of the left tibia and fibula Indications- Pain. History- Pain. Two views of the left tibia and fibula demonstrate no fractures. There are no malalignments. The cortical margins are intact. Impression- No fractures. Agricultural Equipment Design Engineer- PETTY LIVINGSTON Reading Physician- MEMO TONG M.D. Released Date Time- 09/09/081949 Procedure Note Memo Tong - 06/22/2009 Examinations of the left tibia and fibula Indications- Pain. History- Pain. Two views of the left tibia and fibula demonstrate no fractures. There are no malalignments. The cortical margins are intact. Impression- No fractures. Uli Gandara- MEMO TONG M.D. Released Date Time- 09/09/081949 Germán Bradley MD [facility] RAD HISTORICAL F inal Result * XR [...] If so, MRI evaluation may be warranted. Agricultural Equipment Design Engineer- PETTY Healy Physician- MEMO TONG M.D. Released Date Time- 09/09/081949 Germán Bradley MD [facility] HISTORICAL F inal Result * [...] The diary was blank. Carolina Campbell bm12-04-07 Agricultural Equipment Design Engineer- RICK Healy Physician- ISAC BALLARD MD Released [...] The diary was blank. Carolina Campbell. 12-04-07 Agricultural Equipment Design Engineer- RICK Healy Physician- ISAC BALLARD MD Released Date Time- 12/04/07 1013 Finesse Moore MD [facility] STAR CARD HISTORIC AL Final Result * XR KNEE (04/02/2007 4:00 PM EST) Anatomical Region Laterality Modality Other 04/02/2007 4:00 PM EST Narrative 04/02/2007 4:26 PM EST PER /JESÚS RM7 Left knee 4 views, 04/02/2007 History- Pain following a twisting injury. Findings- There is no acute fracture or subluxation. Joint spaces and articular margins are intact. No definite joint effusion. Impression- Normal. Agricultural Equipment Design Engineer- JANA SARKAR Reading Radiologist- PINO ALBARADO Released Date Time- 04/02/07 1633 Procedure Note Pino Albarado - 06/21/2009 PER /JESÚS RM7 Left knee 4 views, 04/02/2007 History- Pain following a twisting injury. Findings- There is no acute fracture or subluxation. Joint spaces and articular margins are intact. No definite joint effusion. Impression- Normal. Agricultural Equipment Design Engineer- JANA Healy Radiologist- PINO ALBARADO Released Date Time- 04/02/07 1633 David Palma MD [facility] HISTORICAL F inal Result * XR [...] Impression- No fracture or dislocation, ankle joint. Agricultural Equipment Design Engineer- DALE VELÁSQUEZ Reading Radiologist- RADHA PORTER MD. [...] Impression- No fracture or dislocation, ankle joint. Agricultural Equipment Design Engineer- DALE Healy Radiologist- RADHA PORTER MD. Released Date Time- 01/01/06913 Robbie Eldridge MD [facility] HISTORICAL Fi nal Result * [...] soft tissue swelling. Impression- 1. Negative exam. Agricultural Equipment Design Engineer- ANGELA SMITH Reading Radiologist- RADHA PORTER MD. [...] soft tissue swelling. Impression- 1. Negative exam. Agricultural Equipment Design Engineer- ANGELA SMITH Reading Radiologist- RADHA PORTER MD. Released Date Time- 01/01/06913 Robbie Eldridge MD [facility] [employer] HISTORICAL Fi nal Result * XR SCAPULA [...] definite fracture is identified. Dustin Mcintyre MD [facility] [employer] HISTO RICAL Final Result * XR NOSE [...] The septum is midline. Dustin Mcintyre MD [facility] STAR RAD HISTO RICAL Final Result [...] facility 2014 COPD (chronic obstructive pulmonary disease) ([facility]) Chronic airway obstruction, not elsewhere classified 2014 Acute bronchitis 05/18/2014 Acute sinusitis Acute sinusitis, unspecified 05/18/2014 COPD (chronic obstructive pulmonary disease) ([facility]) Chronic airway obstruction, not elsewhere classified 05/18/2014 Hypernatremia Hyperosmolality and/or hypernatremia 05/20/2014 Pre-op testing Preoperative examination, unspecified 05/20/2014 Hypernatremia Hyperosmolality and/or hypernatremia 05/20/2014 Pre-op testing Preoperative examination, unspecified 05/20/2014 Bronchitis Bronchitis, not specified as acute or chronic 05/20/2014 COPD exacerbation ([facility]) Obstructive chronic bronchitis with exacerbation 05/20/2014 Asthma exacerbation, moderate persistent 05/20/2014 Chest wall pain Painful respiration 05/20/2014 Vomiting Vomiting alone 05/20/2014 Hypernatremia Hyperosmolality and/or hypernatremia 05/20/2014 Asthma, unspecified asthma severity, uncomplicated 05/21/2014 COPD (chronic obstructive pulmonary disease) ([facility]) Chronic airway obstruction, not elsewhere classified 05/21/2014 Pre-op exam Preoperative examination, unspecified 06/08/2014 Arthritis of knee Unspecified arthropathy, lower leg 06/08/2014 Folliculitis Other specified disease of hair and hair follicles 06/08/2014 Epilepsy ([facility]) Unspecified epilepsy without mention of intractable epilepsy [...] uncomplicated 11/04/2014 COPD (chronic obstructive pulmonary disease) ([facility]) Chronic airway obstruction, not elsewhere classified 11/04/2014 [...] Lifestyle No Radha Urbina CCMA Care Teams 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
[2024-11-03 11:54] VITALS: BP 123/71; PULSE 75; RESP 18; TEMP 36.8; O2SAT 98
== END 2024-11-03 11:54 | disposition home or self-care (01) ==
LOC: ER 11:41
PROVIDERS: Emergency Provider Emergency Medicine; PCP Family Medicine
DX: L02.411 Cutaneous abscess of right axilla (principal); F17.210 Nicotine dependence, cigarettes, uncomplicated
CPT/HCPCS: 99283

== ENCOUNTER 2024-11-08 12:42 | Emergency (ER) | payer MEDICARE, MEDICAID, SELFPAY ==
--- OUTSIDE RECORDS SUMMARY | 2013-09-20 06:00 | XMS_ITS | Continuity of Care Document ---
Author Organization [facility] Address [address] [place] [address] Phone Care Team Providers Care Job Coaching Name Role Phone Rahat Dave MD Unavailable Unavailable Allergies, Adverse Reactions, Alerts Substance Reaction Status Criticality trimethoprim Active No Information sulfamethoxazole Active No Informat ion CHLORPROMAZINE HCL Active No Inform ation FLUOXETINE HCL Active No Informatio n venom-honey bee Active No Informati on Medications Medication Instructions Dosage Effective Dates (start - stop) Status Comments Vitamin C With Yuridia Hips 500 mg tablet - Active Nexium 40 mg capsule,delayed release - Active Refresh Tears 0.5 % eye drops - Active FISH OIL (unknown strength) Not Available - Active STOOL SOFTENER (unknown strength) Not Available - Active ropinirole 0.5 mg tablet - Active Symbicort 160 mcg-4.5 mcg/actuation HFA aerosol inhaler - Active albuterol sulfate HFA 90 mcg/actuation aerosol inhaler - Active Nasonex 50 mcg/actuation [place] - Active Vistaril 25 mg capsule - Active buspirone 5 mg tablet - Active Dilantin Extended 100 mg capsule - Active ibuprofen 800 mg tablet - Active sertraline 50 mg tablet - Active Procedures Procedure Date OFFICE/OUTPATIENT VISIT, EST OFFICE/OUTPATIENT VISIT, NEW Advance Directives Directive Yes / No Effective Date File Name No Information Encounters Encounter Description Practice Location Reason(s) For Visit Diagnoses Date Provider Providers Copied on Encounter OFFICE/OUTPATI ENT VISIT, EST [facility] , [address] [place], [address], tel:[phone] [facility] [address] ANOMAL SKULL/FACE BONESPTOSIS OF EYELID NOSSCAR & FIBROSIS OF SKIN Jolie Giang. [address] [place], [place], [id number], . tel:[phone] Referring Provider: Ramiro Wade, [address] [place], [address]. tel:[phone] OFFICE/OUTPATI ENT VISIT, NEW [facility] , [address] [place], [address], [place] tel:[phone] [facility] [address] ANOMAL SKULL/FACE BONESSCAR & FIBROSIS OF SKINPTOSIS OF EYELID NOS Jolie Giang. [address] [place], [place], [id number], [place]. tel:[phone] Referring Provider: Marcella Ortega, [address] [place], [address]. tel:[phone] Family History Family Member Type Diagnosis Age At Onset Problem (finding) No Family history of Di abetes mellitus Problem (finding) No Family history of Re tinal Disorders Problem (finding) No Family history of Ca taracts Problem (finding) No Family history of HB P Problem (finding) No Family history of Gl aucoma Multiple Problem (finding) Cancer Payers Payer name Insurance type Covered green party ID Authoriza zachery(s) [facility] [place] Medicaid MC [id number] 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 Type Description Quantity Date Captured Comments Sex Male Smoking Status No Information Chief Complaint And Reason For Visit No Information Reason For Referral Reason For Referral No Information History Of Present Illness Encounter Date Complaint History Of Prese nt Illness No Information Functional Status Date Functional Assessmen t No Information Instructions Date Instruction Additional Infor mation - ANOMAL SKULL/FACE BONES- PTOSIS OF EYELID NOS- SCAR & FIBROSIS OF SKINNon-specific intermittent brow pain with old scars and no acute trauma by history. MRI report significant only for L maxillary sinus disease - Would like Neurologist to evaluate. Has appt with Neurologist Dr. Rivera Related to See impression: general plan - Follow up PRN Related to See i mpression: general plan - Abnormality of the skull and/or face bones- Scar: L brow-PTOSIS: OS>OD.Longstanding history of traumas to head and face. Had MRI recently. Lesion L frontal bone for at least 3-4 months - Return to review MRI, may need CT. Will call patient with next step. Related to See impression: general plan - Return in 6 week(s) Related to See impression: general plan Assessments Type Assessment Date No Information Patient Care Teams Name Effective Dates (start - stop) Status Members No Information
[2024-11-08 13:45] VITALS: BP 110/81; PULSE 88; RESP 16; TEMP 36.7; O2SAT 99; BMI 27.7
--- OUTSIDE RECORDS SUMMARY | 2024-11-08 13:49 | XMS_ITS | Data Portability ---
Author Organization [facility] ILA Arnold [place] CLOSED Address [address] [place] [address] Assessment No assessment recorded. Plan of Treatment [...] Time 2 Tympanogram completed ALEJANDRA FELTON [address] [place], [address], [facility] 12/20/2021 10:44:05 2 Audiogram completed ALEJANDRA FELTON [address] [place], [address], [facility] 12/20/2021 10:44:03 Imaging Results None recorded. Procedure Notes None recorded. Medical Equipment None Reported. Vitals None Recorded 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 None recorded. Functional Status None recorded. Mental Status None recorded. Family History Nothing Reported. 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 No medical history recorded. Past Encounters Encounter ID Performer Location Encounter Start Date Encounter Closed Date Diagnosis/Indication Diagnosis SNOMED-CT Code Diagnosis ICD10 Code Diagnosis Note [id number] ALEJANDRA FELTON [facility] CL[facility] [address] [place] [address] 12/20/2021 10:08:29 12/20/2021 10:45:18 Sensorineural hearing loss of bilateral ears 311963529 H90.3 L>R Health Concerns Section Related Observation LastModified by Organization Detai ls LastModified Time None Recorded Concern Status LastModified by Organization Details LastModified Time None Recorded Advance Directives Directive None Recorded Payers Insurance Date Sequence Insurance Name Policy Number Policy Singleton Covered Member ID Singleton Member ID Guarantor Name 03/12/2022 2 [employer] [place] (MEDICA[place] HMO) Zac Clifton [id number] Nuno Clifton 03/12/2022 1 [place]MEDICARE [facility]) [id number] Nuno Clifton [id number] Nuno Clifton
--- OUTSIDE RECORDS SUMMARY | 2024-11-08 13:50 | XMS_ITS | Continuity of Care Document ---
Author Organization 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 [address] Germán Bradley MD Medication Refill 06/30/2018 Telephone [facility] [address] [place] [address] Dustin Mcintyre MD Other 06/02/2018 Orders Only [facility] [address] [place] [address] Radha Urbina CCMA Hepatitis A antibody positive (Primary Dx) 06/02/2018 Orders Only [facility] [address] [place] [address] Oralia Cruz RMA Elevated liver function tests (Primary Dx) 06/01/2018 9:30 AM EST Office Visit [facility] [address] [place] [address] Dustin Mcintyre MD Left inguinal [...] Elevated liver function tests 04/13/2018 Refill [facility] [address] [place] [address] Germán Bradley MD Medication Refill 12/22/2017 Telephone [facility] [address] [place] [address] Dustin Mcintyre MD Other 12/05/2017 8:00 AM EDT Office Visit [facility] [address] [facility] [place] [address] Germán Bradley MD Other epilepsy [...] 100 07/22/2017 1:00 PM EDT Office Visit [facility] [address] [facility] [place] [address] Germán Bradley MD Other epilepsy without status epilepticus, not intractable (HCC) (Primary Dx); Impulse control disorder; COPD, mild (HCC); Recurrent major depressive disorder, in full remission; Chest wall pain; Rotator cuff syndrome of left shoulder; JB (generalized anxiety disorder); Closed nondisplaced fracture of distal phalanx of finger, unspecified finger, initial encounter 07/08/2017 Patient Outreach [facility] [address] [place] [address] Jennifer Mccain LPN Care Transition; Care Management - Chart Review; ED Follow-Up Call 07/07/2017 9:44 PM EDT - 07/07/2017 10:25 PM EDT Emergency [facility] [address] [place] [address] Robbie Queen MD Rotator cuff strain, left, initial encounter (Primary Dx) Discharge Disposition: Home or Self Care 05/26/2017 9:28 PM EST - 05/26/2017 10:28 PM EST Emergency [facility] [address] [place] [address] Radha Lopez MD Closed nondisplaced fracture of distal phalanx of right ring finger, initial encounter (Primary Dx); Multiple abrasions Discharge Disposition: Mcfp 05/06/2017 2:00 PM EST Office Visit [facility] [address] [place] [address] Dustin Mcintyre MD Well adult exam (Primary Dx); Other epilepsy without status epilepticus, not intractable (HCC); COPD, mild (HCC); Gastroesophageal reflux disease without esophagitis; Restless leg syndrome; Hyperlipidemia with target LDL less than 100; Cigarette nicotine dependence without complication; Impulse control disorder; Recurrent major depressive disorder, in full remission; Generalized anxiety disorder 04/08/2017 Refill [facility] [address] [place] [address] Dustin Mcintyre MD Medication Refill 04/08/2017 Refill [facility] [address] [place] [address] Germán Bradley MD Medication Refill 04/08/2017 Telephone [facility] [address] [place] [address] Dustin Mcintyre MD Other 02/27/2017 3:00 PM EST Office Visit [facility] [address] [place] [address] Germán Bradley MD Epidermal inclusion cyst (Primary Dx); Acute bacterial sinusitis; Chronic seasonal allergic rhinitis due to pollen; Lumbar sprain, initial encounter; Generalized osteoarthritis of multiple sites 01/16/2017 Telephone [facility] [address] [place] [address] Norma Greenfield MA Advice Only 01/07/2017 3:21 PM EDT - 01/07/2017 11:59 PM EDT Hospital Encounter [facility] PROCESSING [place] [place] [address] Other epilepsy without status epilepticus, not intractable (HCC); Hyperlipidemia with target LDL less than 100 Discharge Disposition: Home or Self Care 01/07/2017 Telephone [facility] [address] [facility] [place] [address] Nelda Fritz, COPYMAN Orders 01/07/2017 9:00 AM EDT Office Visit [facility] [address] [place] [address] Dustin Mcintyre MD Gastroesophageal reflux disease without esophagitis (Primary Dx); COPD, mild (HCC); Hyperlipidemia with target LDL less than 100; Generalized anxiety disorder; Acute pain of right knee; Right knee injury, initial encounter; Other epilepsy without status epilepticus, not intractable (HCC); Major depressive disorder, recurrent episode, mild; Chronic seasonal allergic rhinitis due to pollen 11/10/2016 Refill [facility] [address] [place] [address] Germán Bradley MD Medication Refill 10/21/2016 Refill [facility] [address] [place] [address] Nelda Fritz, COPYMAN Medication Refill 10/05/2016 Refill [facility] [address] [place] [address] Germán Bradley MD Medication Refill 08/18/2016 Refill [facility] [address] [place] [address] Germán Bradley MD Medication Refill 08/07/2016 1:30 PM EDT - 08/07/2016 11:59 PM EDT Hospital Encounter [facility] [address] [place] [address] Acute pain of right knee; Right knee injury, initial encounter Discharge Disposition: Home or Self Care 08/07/2016 1:15 PM EDT Office Visit [facility] [address] [place] [address] Dustin Mcintyre MD Acute pain of right knee (Primary Dx); Right knee injury, initial encounter 07/24/2016 Telephone [facility] [address] [place] [address] Dustin Mcintyre MD Other 06/21/2016 Telephone [facility] [address] [place] [address] Nelda Fritz CMA Prior Authorization (nexium needs a PA) 06/12/2016 Telephone [facility] [address] [place] [address] Dustin Mcintyre MD Other 06/11/2016 7:45 AM EST - 06/11/2016 8:00 AM EST Surgery [facility] [address] [place] [address] Wang Vieira MD CARPAL TUNNEL RELEASE BILATERAL 06/11/2016 6:41 AM EST - 06/11/2016 8:24 AM EST Hospital Encounter [facility] [address] [place] [address] Wang Vieira MD Discharge Disposition: Home or Self Care 05/16/2016 1:15 PM EST Office Visit [facility] [address] [place] [address] Germán Bradley MD COPD, mild (HCC) (Primary Dx); Generalized anxiety disorder; Cigarette nicotine dependence without complication; Bilateral carpal tunnel syndrome 05/09/2016 Patient Outreach [facility] [address] [place] [address] Margie Mo LPN Care Management - Chart Review (Chart Review) 05/08/2016 1:42 PM EST - 05/08/2016 11:59 PM EST Hospital Encounter [facility] [address] [place] [address] Emg, Kiko Edg Bilateral carpal tunnel syndrome (Primary Dx) Discharge Disposition: Home or Self Care 05/06/2016 10:05 AM EST - 05/06/2016 11:59 PM EST Hospital Encounter [facility] [address] [place] [address] COPD, mild (HCC) Discharge Disposition: Home or Self Care 04/29/2016 2:30 PM EST Office Visit [facility] [address] [place] [address] Germán Bradley MD Well adult exam (Primary Dx); COPD, mild (HCC); Need for pneumococcal vaccination 04/01/2016 7:27 PM EST - 04/01/2016 11:59 PM EST Hospital Encounter [facility] LAB [facility]ELVIN PROCESSING [facility] [place] [address] Memory loss; Hyperlipidemia with target LDL less than 100 Discharge Disposition: Home or Self Care 04/01/2016 Orders Only [facility] [address] [place] [address] Kinjal Bustillo RMA Gastroesophageal reflux disease without esophagitis (Primary Dx) 04/01/2016 2:30 PM EST Office Visit [facility] [address] [place] [address] Germán Bradley MD Need for influenza vaccination (Primary Dx); Generalized anxiety disorder; Hyperlipidemia with target LDL less than 100; Seasonal allergic rhinitis, unspecified allergic rhinitis trigger; Other epilepsy without status epilepticus, not intractable ([facility]); Restless leg syndrome; Major depressive disorder, recurrent episode, mild; Gastroesophageal reflux disease without esophagitis; COPD, mild ([facility]); Memory loss 02/20/2016 Refill [facility] [address] [facility] [place] [address] Germán Bradley MD Medication Refill 12/28/2015 Refill [facility] [address] [facility] [place] [address] Nelda Fritz CMA Medication Refill 11/30/2015 Patient Outreach [address] [address] Елена Alvares RMA ED Follow-up 11/28/2015 Patient Outreach [address] [address] Margie Mo LPN Care Management - Chart Review (Chart Review-Patient discharged from ED 11/27/2015) 11/27/2015 5:23 PM EDT - 11/27/2015 6:28 PM EDT [facility] [address] [place] [address] Michelle Shirley MD Right-sided low back pain without sciatica (Primary Dx) Discharge Disposition: Home or Self Care 11/21/2015 Patient Outreach [address] [address] Margie Mo LPN Care Management - Chart Review (Chart Review-Patient discharged from ED 11/20/2015) 11/20/2015 Refill [facility] [address] [address] Germán Bradley MD Medication Refill 11/20/2015 3:28 PM EDT - 11/20/2015 4:01 PM EDT Emergency [facility] [address] [place] [address] Devora Lindsey MD Fall, initial encounter (Primary Dx); Cervical strain, initial encounter; Abrasions of multiple sites; Right shoulder strain, initial encounter Discharge Disposition: Home or Self Care 11/16/2015 8:07 PM EDT - 11/16/2015 11:59 PM EDT Hospital Encounter [facility] KELVIN PROCESSING [place] [place] [address] Other epilepsy without status epilepticus, not intractable (HCC); Hyperlipidemia with target LDL less than 100 Discharge Disposition: Home or Self Care 11/16/2015 Telephone [facility] [address] [place] [address] Nelda Fritz CMA Prior Authorization (andrewstariabraham needs a PA) 11/16/2015 3:00 PM EDT Office Visit [address] [place] [address] Germán Bradley MD Chronic obstructive pulmonary disease with acute exacerbation (HCC) (Primary Dx); Hyperlipidemia with target LDL less than 100; Generalized anxiety disorder; Restless leg syndrome; Major depressive disorder, recurrent episode, mild; Other epilepsy without status epilepticus, not intractable (HCC); Gastroesophageal reflux disease without esophagitis; Seasonal allergies; Acute bacterial sinusitis 10/21/2015 Refill [facility] [address] [place] [address] Germán Bradley MD Medication Refill 10/21/2015 Refill [facility] [address] [facility] [place] [address] Dustin Mcintyre MD Medication Refill 09/21/2015 Refill [facility] [address] [place] [address] Dustin Mcintyre MD Medication Refill 09/15/2015 Telephone [facility] [address] [place] [address] Germán Bradley MD Other 09/04/2015 Telephone [facility] [address] [place] [address] Nelda Fritz CMA Referral 08/23/2015 Refill [facility] [address] [place] [address] Germán Bradley MD Medication Refill 08/22/2015 Telephone [facility] [address] [place] [address] Germán Bradley MD Other 08/17/2015 Telephone [facility] [address] [place] [address] Germán Bradley MD Letter for School/Work 08/08/[address] [place] [address] Nelda Fritz [facility] Prior Authorization (atarax needs a PA) 08/07/2015 Refill [facility] [address] [place] [address] Germán Bradley MD Medication Refill 07/20/2015 Refill [facility] [address] [place] [address] Germán Bradley MD Medication Refill 07/05/2015 Refill [facility] [address] [place] [address] Dustin Mcintyre MD Medication Refill 06/26/2015 Refill [facility] [address] [place] [address] Germán Bradley MD Medication Refill 06/26/2015 Patient Outreach [facility] [address] [place] [address] Елена Alvares RMA ED Follow-up 06/26/2015 Patient Outreach [facility] [address] [place] [address] Margie Mo LPN Care Management - Chart Review (Discharged from ED 06/23/2015 Chart Reviewed) 06/23/2015 4:34 PM EST - 06/23/2015 6:22 PM EST Emergency [facility] [address] [place] [address] Elina Hall MD Pain of left lower extremity (Primary Dx) Discharge Disposition: Home or Self Care 06/20/2015 8:30 AM EST - 06/20/2015 9:30 AM EST Surgery [facility] [address] [place] [address] Crow Love MD SHOULDER ARTHROSCOPY SUBACROMIAL DECOMPRESSION /FULL MILLY 06/20/2015 7:52 AM EST Anesthesia Event [facility] [address] [place] [address] Jerson Can DO Mucenski, Cathleen M, MD 06/20/2015 6:32 AM EST - 06/20/2015 10:47 AM EST Hospital Encounter [facility] [place] [address] Crow Love MD Discharge Disposition: Home or Self Care 05/10/2015 Refill [facility] [address] [place] [address] Dustin Mcintyre MD Medication Refill 2015 10:00 AM EST Office Visit [facility] [address] [place] [address] Germán Bradley MD Well adult (Primary Dx); Cigarette nicotine dependence without complication 04/20/2015 3:26 PM EST - 04/20/2015 11:59 PM EST Hospital Encounter [facility]ELVIN PROCESSING [facility] [place] [address] Other epilepsy without status epilepticus, not intractable (HCC); Hyperlipidemia with target LDL less than 100 Discharge Disposition: Home or Self Care 04/20/2015 Telephone [facility] [address] [place] [address] MaynorarturoЕлена MARYANNESabine Anxiety 04/20/2015 9:30 AM EST Office Visit [facility] [address] [place] [address] Germán Bradley MD Chronic obstructive pulmonary disease with acute exacerbation (HCC) (Primary Dx); Generalized anxiety disorder; Gastroesophageal reflux disease without esophagitis; Restless leg syndrome; Hyperlipidemia with target LDL less than 100; Major depressive disorder, recurrent episode, mild; Other epilepsy without status epilepticus, not intractable (HCC); Impingement syndrome, shoulder, right 04/12/2015 Refill [facility] [address] [place] [address] Dustin Mcintyre MD Medication Refill 04/11/2015 Refill [facility] [address] [place] [address] Dustin Mcintyre MD Medication Refill 04/11/2015 Refill [facility] [address] [place] [address] Dustin Mcintyre MD Medication Refill 03/30/2015 11:00 AM EST Office Visit [facility] [address] [place] [address] Germán Bradley MD Shoulder tendonitis, right (Primary Dx); Primary osteoarthritis of right shoulder 03/23/2015 Orders Only [facility] [address] [place] [address] Tu Rivera MD Seizure disorder (HCC) (Primary Dx) 03/22/2015 11:10 AM EST - 03/22/2015 11:59 PM [facility] Hospital Encounter [facility] [address] [place] [address] Dustin Mcintyre MD Right shoulder pain Discharge Disposition: Home or Self Care 03/21/2015 Orders Only [facility] [address] [place] [address] Елена Alvares RMA Chronic obstructive pulmonary disease with acute exacerbation (HCC) (Primary Dx); Generalized anxiety disorder 03/20/2015 Refill [facility] [address] [place] [address] Dustin Mcintyre MD Medication Refill 03/17/2015 10:15 AM EST Office Visit [facility] [address] [place] [address] Dustin Mcintyre MD Right shoulder pain (Primary Dx) 02/24/2015 11:00 AM EST Office Visit [facility] [address] [place] [address] Dustin Mcintyre MD Generalized anxiety disorder (Primary Dx); Trapezius strain, unspecified laterality, initial encounter; Medial epicondylitis of elbow, right 01/24/2015 Refill [facility] [address] [place] [address] Dustin Mcintyre MD Medication Refill 01/24/2015 Refill [facility] [address] [place] [address] Nelda Fritz, COPYMAN Medication Refill 01/23/2015 Refill [facility] [address] [place] [address] Nelda Fritz Veronica, COPYMAN Medication Refill 12/21/2014 Refill [facility] [address] [place] [address] Dustin Mcintyre MD Medication Refill 11/04/2014 3:00 PM EDT - 11/04/2014 11:59 PM EDT Hospital Encounter [facility] LAB KELVIN PROCESSING [place] [place] [address] [address] Other epilepsy without status epilepticus, not intractable ([facility]); Hyperlipidemia LDL goal < 100 Discharge Disposition: Home or Self Care 11/04/2014 9:15 AM EDT Office Visit [address] [place] [address] Dustin Mcintyre MD Generalized anxiety disorder (Primary Dx); Asthma, unspecified asthma severity, uncomplicated; COPD (chronic obstructive pulmonary disease) ([facility]); Restless leg syndrome; Gastroesophageal reflux disease without esophagitis; Other epilepsy without status epilepticus, not intractable ([facility]); Hyperlipidemia LDL goal < 100 11/01/[address] [place] [address] Dustin Mcintyre MD Medication Refill 11/01/[address] [place] [address] Dustin Mcintyre MD Medication Refill 10/31/[address] [place] [address] Dustin Mcintyre MD Medication Refill 10/14/2014 Refill [facility] [address] [place] [address] Dustin Mcintyre MD Medication Refill 08/29/[address] [place] [address] Nelda Fritz CMA Medication Management (atrarax needs a pa) 08/10/[address] [place] [address] Nelda Fritz CMA Medication Management (hyrdoxyzine needs a PA) 07/13/[address] [place] [address] Nelda Fritz CMA Medication Problem 07/08/2014 9:28 AM EDT - 07/08/2014 11:59 PM EDT Hospital Encounter [facility] Physical Therapy [address] [place] [address] Shanice Ybarra, PT Discharge Disposition: Home or Self Care 07/01/2014 10:04 AM EDT - 07/01/2014 11:59 PM EDT Hospital Encounter [facility] Physical Therapy [address] [place] [address] Shanice Ybarra, PT Discharge Disposition: Home or Self Care 06/28/2014 9:27 AM EDT - 06/28/2014 11:59 PM EDT Hospital Encounter [facility] Physical Therapy [address] [place] [address] Margarita Doran, PT Discharge Disposition: Home or Self Care 06/21/2014 8:15 AM EDT - 06/21/2014 8:45 AM EDT Surgery [facility] [address] [place] [address] Crow Love MD KNEE ARTHROSCOPY MENISCECTOMY/REPAIR (ALSO COVERS ARTHROSCOPIC INCISION AND DRAINAGE/DEBRIDEMENT) 06/21/2014 7:50 AM EDT Anesthesia Event [facility] [place] [address] [place] [address] Artem Naqvi MD Brannon, Daniel Todd, DO 06/21/2014 6:35 AM EDT - 06/21/2014 10:32 AM EDT Hospital Encounter [facility] [place] [address] [address] Crow Love MD Discharge Disposition: Home or Self Care 06/08/2014 10:30 AM EST Office Visit [facility] [place] [address] [place] [address] Dustin Mcintyre MD Pre-op exam (Primary Dx); Arthritis of knee; Folliculitis; Epilepsy (HCC); Restless leg syndrome; JB (generalized anxiety disorder); Hearing loss in left ear; GERD (gastroesophageal reflux disease) 05/25/2014 Telephone [facility] [place] [address] [place] [address] Dustin Mcintyre MD Results 05/21/2014 Refill [facility] [address] [place] [place] [address] Dustin Mcintyre MD Medication Refill 05/20/2014 7:41 PM EST - 05/20/2014 11:59 PM EST Hospital Encounter [facility] KELVIN PROCESSING [facility] [place] [address] [address] Hypernatremia; Pre-op testing Discharge Disposition: Home or Self Care 05/20/2014 Orders Only [facility] [address] [place] [address] Lay Minor MD Hypernatremia (Primary Dx); Pre-op testing 05/20/2014 11:00 AM EST Office Visit [facility] [address] [facility] [place] [address] Dustin Mcintyre MD Bronchitis (Primary Dx); COPD exacerbation (HCC); Asthma exacerbation, moderate persistent; Chest wall pain; Vomiting; Hypernatremia 05/19/2014 Patient Outreach [facility] [address] [facility] [place] [address] Nasrin Perry, legend maker (ED f/u call ) 05/18/2014 11:12 AM EST - 05/18/2014 12:37 PM EST Emergency [facility] [address] [facility] [place] [address] Mariaelena Rossi MD Acute bronchitis (Primary Dx); Acute sinusitis; COPD (chronic obstructive pulmonary disease) (HCC) Discharge Disposition: Home or Self Care 2014 7:57 PM EST - 2014 11:59 PM EST Hospital Encounter [facility] KELVIN PROCESSING [facility] [place] [address] Healthcare maintenance; Epilepsy (HCC) Discharge Disposition: Home or Self Care 2014 10:00 AM EST Office Visit [facility] [address] [facility] [place] [address] Dustin Mcintyre MD Epilepsy ([facility]) (Primary Dx); Generalized anxiety disorder; Hyperlipidemia LDL goal < 100; Restless leg syndrome; GERD (gastroesophageal reflux disease); Healthcare maintenance; COPD (chronic obstructive pulmonary disease) ([facility]) 04/01/2014 Telephone [facility] [address] [place] [address] Dustin Mcintyre MD Results 03/23/2014 11:00 AM EST Office Visit [facility] [address] [place] [address] Wheezing; SOB (shortness of breath) Discharge Disposition: Home or Self Care 03/18/2014 10:45 AM EST Office Visit [facility] [address] [place] [address] Dustin Mcintyre MD Wheezing (Primary Dx); SOB (shortness of breath) 03/17/2014 Telephone [facility] [address] [place] [address] Nelda Fritz CMA Medication Management (protonix bid needs a PA) 03/14/2014 Telephone [facility] [address] [place] [address] Dustin Mcintyre MD Medication Refill 03/08/2014 Telephone [facility] [address] [place] [address] Dustin Mcintyre MD Other 03/08/2014 11:20 AM EST - 03/08/2014 11:59 PM EST Hospital Encounter [facility] [address] [place] [address] Allergic rhinitis, cause unspecified (Primary Dx); Epilepsy ([facility]); Hearing loss in left ear; GERD (gastroesophageal reflux disease); JB (generalized anxiety disorder); FHx: prostate cancer; FHx: lung cancer; Nicotine dependence; Restless leg syndrome Discharge Disposition: Home or Self Care 03/08/2014 10:45 AM EST Office Visit [facility] [address] [place] [address] Dustin Mcintyre MD Hyperlipidemia LDL goal < 100 (Primary Dx); GERD (gastroesophageal reflux disease); Asthma, unspecified asthma severity, uncomplicated; Epilepsy (HCC); Generalized anxiety disorder; Restless leg syndrome 02/12/2014 Refill [facility] [address] [place] [address] Dustin Mcintyre MD Medication Refill 02/04/2014 8:00 AM EDT - 02/04/2014 9:52 AM EDT Surgery [facility] [address] [place] [address] Los Gordon MD FUNCTIONAL ENDOSCOPIC SINUS SURGERY/SINOSCOPY 02/04/2014 6:27 AM EDT - 02/04/2014 11:53 AM EDT Hospital Encounter [facility] [address] [place] [address] Los Gordon MD Discharge Disposition: Home or Self Care 02/02/2014 11:00 AM EDT - 02/02/2014 11:59 PM EDT Hospital Encounter [facility] PRE-ADMIT TEST[facility] [address] [place] [address] Pat, Clarice Discharge Disposition: Home or Self Care 01/24/2014 11:29 AM EDT - 01/24/2014 11:59 PM EDT Hospital Encounter [facility] [address] [place] [address] Esophageal reflux (Primary Dx); Dyspepsia and other specified disorders of function of stomach; Dysphagia, unspecified(787.20) Discharge Disposition: Home or Self Care 11/19/2013 10:30 AM EDT Office Visit [facility] [address] [place] [address] Dustin Mcintyre MD Laceration of wrist, left, subsequent encounter (Primary Dx) 11/13/2013 Refill [facility] [address] [place] [address] Marcela Ding MD Medication Refill 11/12/2013 6:42 PM EDT - 11/12/2013 7:45 PM EDT Emergency [facility] [address] [facility] [place] [address] Jerson Go MD Wrist laceration, left, initial encounter (Primary Dx) Discharge Disposition: Home or Self Care 11/03/[address] [place] [address] Chyna Mcgraw MA Referral (ORTHO) 11/01/2013 Orders Only [address] [place] [address] Marcela Ding MD Knee pain, right (Primary Dx) 11/01/2013 8:55 AM EDT - 11/01/2013 11:59 PM EDT Hospital Encounter [facility] [address] [place] [address] Dustin Mcintyre MD Right knee pain; Recurrent right knee instability Discharge Disposition: Home or Self Care 10/29/[address] [place] [address] Dustin Mcintyre MD Other 10/28/[address] [address] Dustin Mcintyre MD Referral 10/25/2013 4:43 PM EDT - 10/25/2013 11:59 PM EDT Hospital Encounter [facility] [place] [address] Hyperlipidemia LDL goal < 100 (Primary Dx); Epilepsy (HCC); Screening PSA (prostate specific antigen); Family history of prostate cancer; FHx: prostate cancer; Other nonspecific abnormal serum enzyme levels Discharge Disposition: Home or Self Care 10/25/[address] [place] [address] Nelda Fritz CMA Medication Management (Nexium bid dosing needs a PA) 10/25/2013 10:30 AM EDT Office Visit [facility] [address] [place] [address] uDstin Mcintyre MD Epilepsy ([facility]) (Primary Dx); Asthma, unspecified asthma severity, uncomplicated; Generalized anxiety disorder; JB (generalized anxiety disorder); GERD (gastroesophageal reflux disease); Family history of prostate cancer; Hyperlipidemia LDL goal < 100; FHx: prostate cancer; Hearing loss in left ear; Restless leg syndrome; Right knee pain; Recurrent right knee instability; Screening PSA (prostate specific antigen) 10/18/2013 Refill [facility] [address] [place] [address] Germán Bradley MD Medication Refill 10/13/2013 10:00 AM EDT Office [place] [facility] [address] [place] [address] Tu Rivera MD Epilepsy ([facility]) (Primary Dx); Hearing loss in left ear; Nicotine dependence; Restless leg syndrome 09/10/2013 Refill [facility] [address] [place] [address] Germán Bradley MD Medication Refill 08/30/2013 Refill [facility] [address] [place] [address] Nelda Fritz, COPYMAN Medication Refill 08/26/2013 Telephone [facility] [address] [place] [address] Nelda Fritz, COPYMAN Referral 08/26/2013 Refill [facility] [address] [place] [address] Germán Bradley MD Medication Refill 08/26/2013 11:20 AM EDT - 08/26/2013 11:59 PM EDT Hospital Encounter [facility] Physical [facility] [address] [place] [address] Yvrose Palma, PT Discharge Disposition: Home or Self Care 08/17/2013 1:17 PM EDT - 08/17/2013 11:59 PM EDT Hospital Encounter [facility] Physical [facility] [address] [place] [address] Yvrose Palma, PT Discharge Disposition: Home or Self Care 08/16/2013 Refill [facility] [address] [place] [address] Germán Bradley MD Medication Refill 08/16/2013 Refill [facility] [address] [place] [address] Dustin Mcintyre MD Medication Refill 08/12/2013 Refill [facility] [address] [place] [address] Marcela Ding MD Medication Refill 08/12/2013 Refill [facility] [address] [place] [address] Germán Bradley MD Medication Refill 08/12/2013 Refill [facility] [address] [place] [address] Dustin Mcintyre MD Medication Refill 07/27/2013 Telephone [facility] [address] [place] [address] Nelda Fritz CMA Medication Refill 07/23/2013 8:30 AM EDT - 07/23/2013 11:59 PM EDT Hospital Encounter [facility] [address] [place] [address] Los Gordon MD Sensorineural hearing loss, asymmetrical; Abnormal auditory perception, unspecified Discharge Disposition: Home or Self Care 07/07/2013 Refill [facility] [address] [place] [address] Nedla Fritz CMA Medication Refill 06/29/2013 2:00 PM EDT - 06/29/2013 11:59 PM EDT Hospital Encounter [facility] [address] [place] [address] Mag Becerra CCC-[employer] Discharge Disposition: Home or Self Care 06/25/2013 Refill [facility] [address] [place] [address] Dustin Mcintyre MD Medication Refill 06/01/2013 Telephone [facility] [address] [place] [address] Germán Bradley MD Labs Only 05/31/2013 4:54 PM EST - 05/31/2013 11:59 PM EST Hospital Encounter [facility] [place] [address] Well adult exam; Epilepsy (HCC) Discharge Disposition: Home or Self Care 05/31/2013 10:00 AM EST - 05/31/2013 4:53 PM EST Hospital Encounter [facility] [address] [place] [address] COPD (chronic obstructive pulmonary disease) (HCC); FHx: lung cancer; Cough Discharge Disposition: Home or Self Care 05/31/2013 9:15 AM EST Office Visit [facility] [address] [place] [address] Germán Bradley MD Well adult exam (Primary Dx); COPD (chronic obstructive pulmonary disease) (HCC); Epilepsy (HCC); GERD (gastroesophageal reflux disease); JB (generalized anxiety disorder); Atypical moles; FHx: prostate cancer; FHx: lung cancer; Cough; Tobacco abuse 05/26/2013 Telephone [facility] [address] [place] [address] Dustin Mcintyre MD Epistaxis 05/24/2013 Refill [facility] [address] [place] [address] Germán Bradley MD Medication Refill 05/21/2013 Refill [facility] [address] [place] [address] Dustin Mcintyre MD Medication Refill 05/21/2013 Refill [facility] [address] [place] [address] Germán Bradley MD Medication Refill 05/03/[address] [place] [address] Catrina Nelda Veronica [facility] Medication Refill 04/29/2013 10:15 AM EST Office Visit [facility] [address] [place] [address] Germán Bradley MD JB (generalized anxiety disorder) (Primary Dx); Back strain 04/15/[address] [place] [address] Marcela Ding MD Medication Refill 04/15/[address] [place] [address] Germán Bradley MD Medication Refill 03/24/[address] [place] [address] Veronica Freed MA Anxiety 03/16/[address] [place] [address] Chyna Mcgraw MA Referral (ORTHO) 03/15/2013 1:00 PM EST Office Visit [facility] [address] [place] [address] Dustin Mcintyre MD Arthralgia of shoulder region, right (Primary Dx); Arthritis of elbow, right; GERD (gastroesophageal reflux disease); RLS (restless legs syndrome); Epilepsy (HCC); Bipolar affective disorder (HCC); Generalized anxiety disorder; Asthma 03/14/2013 Refill [facility] [address] [place] [address] Germán Bradley MD Medication Refill 03/05/2013 Telephone [facility] [address] [place] [address] Dustin Mcintyre MD Medication Change 03/02/2013 2:15 PM EST Office Visit [place] [facility] [address] [place] [address] Dustin Mcintyre MD Shoulder pain (Primary Dx) 03/02/2013 1:27 PM EST - 03/02/2013 11:59 PM [facility] Hospital Encounter [place] [address] [place] [address] Kathy Wasserman, PT Discharge Disposition: Home or Self Care 03/01/2013 Refill [facility] [place] [address] [place] [address] Germán Bradley MD Medication Refill 03/01/2013 Refill [facility] [place] [address] [place] [address] Dustin Mcintyre MD Medication Refill 03/01/2013 Refill [facility] [place] [address] [place] [address] Marcela Ding MD Medication Refill 02/27/2013 Telephone [place] [address] [place] [address] Germán Bradley MD Other 02/26/2013 10:07 AM EST - 02/26/2013 11:59 PM EST Hospital Encounter [place] [address] [place] [address] Kathy Wasserman, PT Discharge Disposition: Home or Self Care 02/18/2013 12:51 PM EST - 02/18/2013 11:59 PM EST Hospital Encounter [place] [address] [place] [address] Kathy Wasserman, PT Discharge Disposition: Home or Self Care 02/12/2013 Refill [facility] [place] [address] [place] [address] Dustin Mcintyre MD Medication Refill 02/10/2013 9:06 AM EDT - 02/10/2013 11:59 PM EDT Hospital Encounter [address] [place] [address] Kathy Wasserman, PT Discharge Disposition: Home or Self Care 02/05/2013 12:26 PM EDT - 02/05/2013 11:59 PM EDT Hospital Encounter [address] [place] [address] Kathy Wasserman, PT Discharge Disposition: Home or Self Care 02/01/2013 Refill [facility] [address] [place] [address] Marcela Ding MD Medication Refill 01/29/2013 Telephone [facility] [address] [place] [address] Germán Bradley MD Medication Refill 01/18/2013 8:30 AM EDT - 01/18/2013 9:30 AM EDT Surgery [facility] [address] [place] [address] Crow Love MD SHOULDER ARTHROSCOPY LABRAL/BANKART/ BICEP TENODESIS (COVERS SUPERIOR LABRAL ANTERIOR POSTERIOR REPAIR/SLAP) 01/18/2013 5:21 AM EDT - 01/18/2013 12:50 PM EDT Hospital Encounter [facility] SAME DAY SURGERY [address] [place] [address] Crow Love MD Discharge Disposition: Home or Self Care 01/14/2013 Telephone [facility] [address] [address] Germán Bradley MD Medication Reaction 01/08/2013 2:00 PM EDT Office Visit [facility] [address] [place] [address] Germán Bradley MD Infected inclusion cyst (Primary Dx); RLS (restless legs syndrome) 12/25/2012 12:38 PM EDT - 12/25/2012 11:59 PM EDT Hospital Encounter [facility] [address] [place] [address] Germán Bradley MD Rotator cuff syndrome of left shoulder Discharge Disposition: Home or Self Care 12/20/2012 9:52 AM EDT - 12/20/2012 11:16 AM EDT Emergency [facility] [place] [address] Pino Maxwell MD Foot sprain (Primary Dx) Discharge Disposition: Home or Self Care 12/16/2012 1:45 PM EDT Office Visit [facility] [address] [place] [address] Germán Bradley MD Rotator cuff syndrome of left shoulder (Primary Dx); Need for influenza vaccination 12/15/2012 Telephone [facility] [address] [place] [address] Germán Bradley MD Referral 12/11/[address] [place] [address] Marcela Ding MD Medication Refill 12/11/2012 Refill [facility] [address] [place] [address] Germán Bradley MD Medication Refill 12/02/2012 11:17 AM EDT - 12/02/2012 11:59 PM EDT Hospital Encounter [facility] Physical Therapy [facility] [address] [place] [address] Chyna Mathis, [place] Discharge Disposition: Home or Self Care 12/02/2012 10:00 AM EDT Office Visit [facility] [address] [place] [address] Germán Bradley MD Seborrhea (Primary Dx); Cervical lymphadenitis 11/19/2012 Refill [facility] [address] [place] [address] Germán Bradley MD Medication Refill 11/18/2012 10:41 AM EDT - 11/18/2012 11:59 PM EDT Hospital Encounter [facility] Physical Therapy [facility] [address] [place] [phone] Shanice Ybarra PT Rotator cuff syndrome (Primary Dx) Discharge Disposition: Home or Self Care 11/09/2012 12:11 PM EDT - 11/09/2012 11:59 PM EDT Hospital Encounter [facility] [address] [place] [address] Scoliosis; Back pain Discharge Disposition: Home or Self Care 11/09/2012 11:30 AM EDT Office Visit [facility] [address] [place] [address] Germán Bradley MD Rotator cuff syndrome Bilateral (Primary Dx) 11/05/[address] [place] [address] Germán Bradley MD Back Pain 11/03/2012 [address]phone [address] [place] [address] Nelda Fritz CMA Back Pain 11/02/2012 5:12 PM EDT - 11/02/2012 11:59 PM EDT Hospital Encounter [facility] [place] [address] Epilepsy (HCC) Discharge Disposition: Home or Self Care 11/02/2012 9:00 AM EDT Office Visit [facility] [address] [place] [address] Germán Bradley MD LBP (low back pain) (Primary Dx); Neck pain; Shoulder pain; JB (generalized anxiety disorder); Epilepsy (HCC) 10/31/2012 Refill [facility] [address] [place] [address] Nelda Fritz CMA Medication Refill 10/26/2012 Refill [facility] [place] [address] [place] [address] Germán Bradley MD Medication Refill 10/20/2012 Telephone [facility] [address] [place] [address] Dustin Mcintyre MD Other 10/14/2012 Telephone [facility] [place] [address] [place] [address] Dustin Mcintyre MD Medication Refill; Medication Change 10/09/2012 5:34 PM EDT - 10/09/2012 11:59 PM EDT Hospital Encounter [facility]G LAB [facility] [place] [address] Epilepsy ([facility]); Generalized anxiety disorder Discharge Disposition: Home or Self Care 10/09/2012 Telephone [place] [address] [place] [address] Norma Greenfield MA Medication Change 10/09/2012 8:30 AM EDT Office Visit [place] [address] [place] [address] Dustin Mcintyre MD Epilepsy (HCC) (Primary Dx); GERD (gastroesophageal reflux disease); Asthma; Bipolar affective disorder (HCC); Generalized anxiety disorder; ED (erectile dysfunction) 06/20/2012 Refill [facility] [place] [address] [place] [address] Marcela Ding MD Medication Refill 05/01/2012 1:57 PM EST - 05/01/2012 11:59 PM EST Hospital Encounter [facility] Physical Therapy [facility] [address] [place] [phone] Kathy Wasserman, PT Discharge Disposition: Home or Self Care 04/24/2012 1:47 PM EST - 04/24/2012 11:59 PM EST Hospital Encounter [facility] [address] [place] [address] Kathy Wasserman, PT Discharge Disposition: Home or Self Care 04/17/2012 1:01 PM EST - 04/17/2012 11:59 PM EST Hospital Encounter [facility] [address] [place] [address] Kathy Wasserman, PT Discharge Disposition: Home or Self Care 04/16/2012 Refill [facility] [address] [place] [address] Marcela Ding MD Medication Refill 04/05/2012 5:08 PM EST - 04/05/2012 6:19 PM EST Emergency [facility] [address] [place] [address] Roshan Sanchez MD Chronic knee pain (Primary Dx) Discharge Disposition: Home or Self Care 03/09/2012 Refill [facility] [address] [place] [address] Marcela Ding MD Medication Refill 03/03/2012 Refill [facility] [address] [address] Marcela Ding MD Medication Refill 02/28/2012 8:15 PM EST - 02/28/2012 11:59 PM EST Hospital Encounter [facility] PROCESSING [facility] [place] [address] Epilepsy (HCC); Bipolar affective disorder (HCC); Abdominal pain Discharge Disposition: Home or Self Care 02/28/2012 10:20 AM EST Office Visit [facility] [address] [place] [address] Germán Bradley MD Epilepsy (HCC); Abdominal pain; Bipolar affective disorder (HCC); Asthma; Knee pain, left 01/17/2012 Telephone [facility] [address] [place] [address] Marcela Ding MD Medication Refill 12/21/2011 Refill [facility] [address] [place] [address] Germán Bradley MD Medication Refill 12/02/2011 7:06 PM EDT - 12/02/2011 11:59 PM EDT Hospital Encounter [facility] PROCESSING [facility] [place] [address] Bipolar affective disorder (HCC); Encounter for long-term (current) use of medications Discharge Disposition: Home or Self Care 12/02/2011 10:20 AM EDT Office Visit [facility] [address] [place] [address] Dustin Mcintyre MD Knee pain, left (Primary Dx); Epilepsy (HCC); Bipolar affective disorder (HCC); Asthma; COPD (chronic obstructive pulmonary disease) (HCC); Anxiety; Encounter for long-term (current) use of medications 10/31/2011 Refill [place] [address] [place] [address] Germán Bradley MD Medication Refill 10/17/2011 [address] [place] [address] Marcela Ding MD Other 10/01/2011 3:24 PM EDT - 10/01/2011 4:31 PM EDT Emergency [facility] [address] [place] [address] Mariaelena Rossi MD Contusion of third finger, right; Left elbow contusion; Fall Discharge Disposition: Home or Self Care 09/14/2011 Refill [facility] [address] [place] [address] Germán Bradley MD Medication Refill 08/23/2011 9:20 AM EDT Office Visit [facility] [address] [place] [address] Germán Bradley MD Osteoarthritis (Primary Dx); Asthma; Epilepsy (HCC); Arthritis shoulder and knee; GERD (gastroesophageal reflux disease); Bipolar affective disorder (HCC); CTS (carpal tunnel syndrome) 08/07/2011 12:58 PM EDT - 08/07/2011 2:03 PM EDT Emergency [facility] [address] [place] [address] Alfie Perez MD Carpal tunnel syndrome of right wrist; Rotator cuff injury Discharge Disposition: Home or Self Care 07/10/2011 Telephone [facility] [address] [facility] [place] [address] Germán Bradley MD Other 07/02/2011 Telephone [address] [place] [address] Nelda Fritz, NIESHA Other (PA for celexa) 06/28/2011 9:51 AM EDT - 06/28/2011 11:59 PM EDT Hospital Encounter [facility] [address] [place] [address] Germán Bradley MD TMJ (dislocation of temporomandibular joint); Jaw pain; Dental decay Discharge Disposition: Home or Self Care 06/28/2011 9:20 AM EDT Office Visit [address] [place] [address] Germán Bradley MD Bipolar affective disorder (HCC); Anxiety; TMJ (dislocation of temporomandibular joint); Jaw pain; Dental decay 06/11/2011 Telephone [facility] [address] [facility] [place] [address] Marcela Ding MD Medication Refill 06/03/2011 8:09 PM EST - 06/03/2011 11:59 PM EST Hospital Encounter [facility] PROC[facility] [address] Bipolar affective disorder (HCC); Epilepsy (HCC) Discharge Disposition: Home or Self Care 06/03/2011 1:00 PM EST Office Visit [facility] [address] [place] [address] Germán Bradley MD Bipolar affective disorder (HCC); Asthma; Epilepsy (HCC) 05/18/2011 Refill [facility] [address] [place] [address] Germán Bradley MD Medication Refill 05/03/2011 Telephone [facility] [address] [place] [address] Nelda Fritz CMA Other 05/03/2011 10:50 AM EST Office Visit [place] [address] [place] [address] Germán Bradley MD Asthma (Primary Dx); Side pain; Abdominal wall pain; Bipolar affective disorder (HCC); Epilepsy (HCC) 04/17/2011 Refill [facility] [address] [place] [address] Germán Bradley MD Medication Refill 03/18/2011 Telephone [facility] [address] [place] [address] Cleopatra Duran 02/18/2011 2:20 PM EST - 02/18/2011 11:59 PM EST Hospital Encounter [facility] Physical [address] [place] [address] Chyna Mathis, PT Discharge Disposition: Home or Self Care 02/11/2011 2:30 PM EDT - 02/11/2011 11:59 PM EDT Hospital Encounter [facility] Physical [address] [place] [address] Chyna Mathis, PT Discharge Disposition: Home or Self Care 02/04/2011 2:24 PM EDT - 02/04/2011 11:59 PM EDT Hospital Encounter [facility] Physical Therapy [facility] [address] [place] [address] Chyna Mathis, [place] Discharge Disposition: Home or Self Care 01/11/2011 Telephone [facility] [place] [address] [place] [address] Marcela Ding MD Other 12/28/2010 Telephone [facility] [place] [address] [place] [address] Ipregan Lucy K Rectal Bleeding 12/19/2010 2:51 PM EDT - 12/19/2010 11:59 PM EDT Hospital Encounter [facility] PROCESSING [facility] [place] [address] Elevated glucose Discharge Disposition: Home or Self Care 12/19/2010 10:30 AM EDT Office Visit [place] [address] [place] [address] Germán Bradley MD Bipolar affective disorder (HCC); Epilepsy (HCC); Asthma; AR (allergic rhinitis); GERD (gastroesophageal reflux disease); Arthritis shoulder and knee; Elevated glucose 12/14/2010 Telephone [place] [address] [place] [address] Ipregan Lucy K Medication Refill 12/14/2010 Refill [place] [address] [place] [address] Germán Bradley MD Medication Refill 12/12/2010 1:22 PM EDT - 12/12/2010 2:55 PM EDT Emergency [facility] [address] [place] [address] Ty Griffiths DO Fibula fracture Discharge Disposition: Home or Self Care 12/08/2010 Telephone [place] [address] [place] [address] Inge Quinn, RMA Results 11/21/2010 8:29 PM EDT - 11/21/2010 11:59 PM EDT Hospital Encounter [facility] PROCESSING [facility] [place] [address] Lipid screening; Epilepsy (HCC); Encounter for long-term (current) use of medications Discharge Disposition: Home or Self Care 11/21/2010 10:30 AM EDT Clinical Support [facility] [place] [address] Oralia Cruz Sabine Bipolar affective disorder (HCC); Epilepsy (HCC); Lipid screening; Encounter for long-term (current) use of medications 11/09/2010 [address] [place] [address] Germán Bradley MD Medication Refill 07/31/2010 2:00 PM EDT Office Visit [facility] [place] [address] Germán Bradley MD Asthma; Bronchitis; Rotator cuff syndrome 07/30/2010 Telephone [facility] [address] [place] [address] Lucy Redman 05/02/2010 11:30 AM EST Office Visit [facility] [place] [address] Germán Bradley MD Epilepsy (HCC); Bipolar affective disorder (HCC); Asthma; COPD (chronic obstructive pulmonary disease) (HCC); GERD (gastroesophageal reflux disease); Osteoarthritis 04/30/2010 10:08 AM EST - 04/30/2010 11:59 PM EST Hospital Encounter [facility] PROCESSING [facility] [place] [address] Marcela Ding MD Encounter for long-term (current) use of other medications; Epilep NOS w/o intr epil; Bipolar disorder NOS Discharge Disposition: Home or Self Care 04/30/2010 9:50 AM EST Clinical Support [facility] [place] [address] FrancoiseArabellaNellymarlon Reardon, RMA Epilepsy ([facility]); Bipolar affective disorder ([facility]) 2010 Telephone [facility] [facility] [address] [place] [address] Oralia Cruz Sabine, RMA Letter for School/Work ([place] [employer] form) 04/13/2010 Refill SEP [facility] [address] [place] [address] Germán Bradley MD Medication Refill 03/17/2010 Refill SEP [address] [place] [address] Germán Bradley MD Medication Refill 02/12/2010 Refill SEP [address] [place] [address] Germán Bradley MD Medication Refill 01/16/2010 11:10 AM EDT Office Visit [facility] [address] [place] [address] Germán Bradley MD COPD (chronic obstructive pulmonary disease) ([facility]); Osteoarthritis of knee 12/21/2009 Refill SEP [address] [place] [address] Marcela Ding MD Medication Refill 12/07/2009 Refill SEP [address] [place] [address] Dustin Mcintyre MD Medication Refill 11/07/2009 7:59 PM EDT - 11/07/2009 11:59 PM EDT Hospital Encounter HST SUWT EDG Germán Bradley MD 11/07/2009 3:20 PM EDT Office Visit [facility] [address] [place] [address] Germán Bradley MD PUD (peptic ulcer disease) (Primary Dx); Bipolar affective disorder (HCC); Asthma; AR (allergic rhinitis) 11/04/2009 10:43 PM EDT - 11/05/2009 12:41 AM EDT Emergency HST GES MICHELLET Ty Griffiths, DO 10/12/2009 12:01 AM EDT - 10/26/2009 1:28 PM EDT Hospital Encounter HST PT Germán Odom MD 10/25/2009 9:30 AM EDT Office Visit SEP [facility] [address] [place] [address] Germán Bradley MD AR (allergic rhinitis); GERD (gastroesophageal reflux disease); Rotator cuff syndrome; Bipolar affective disorder (HCC); Asthma; Epilepsy (HCC) 09/12/2009 12:01 AM EDT - 10/11/2009 11:59 PM EDT Hospital Encounter HST PT Marcela Villanueva MD Burke, Brennan C, MD 09/28/2009 Telephone SEP [facility] [address] [place] [address] Francoise, Nelly Reardon, RMA Medication Problem 09/27/2009 Telephone SEP [facility] [address] [facility] [place] [address] Veronica Freed MA Other 09/27/2009 1:20 PM EDT Office Visit [facility] [address] [place] [address] Germán Bradley MD Rotator cuff syndrome; AR (allergic rhinitis); GERD (gastroesophageal reflux disease) 09/14/2009 2:06 AM EDT - 09/14/2009 11:59 PM EDT Emergency HST GES GRTy Rodriguez, DO 08/24/2009 2:55 PM EDT - 09/11/2009 11:59 PM EDT Hospital Encounter HST PT Marcela Villanueva MD 09/05/2009 Telephone SEP [facility] [address] [place] [address] Germán Bradley MD Results 09/05/2009 Telephone SEP [facility] [address] [place] [address] Dustin Mcintyre MD Results 09/01/2009 12:01 AM EDT - 09/01/2009 11:59 PM EDT Hospital Encounter HST RADIOLOGY GRT aMrcela Ding MD 08/26/2009 Telephone SEP [facility] [address] [place] [address] Germán Bradley MD Results 08/24/2009 3:04 PM EDT - 08/24/2009 11:59 PM EDT Hospital Encounter HST RADIOLOGY GRT Marcela Ding MD 08/24/2009 2:30 PM EDT Office Visit [facility] [address] [place] [address] Marcela Ding MD Shoulder pain (Primary Dx) 08/15/2009 Refill SEP [facility] [address] [place] [address] Nelda Fritz COPYMAN Medication Refill 07/25/2009 5:37 PM EDT - 07/25/2009 11:59 PM EDT Hospital Encounter HST SUWT EDG Dustin Mcintyre MD 07/25/2009 3:00 PM EDT Office Visit [facility] [address] [place] [address] Germán Bradley MD Rotator cuff syndrome; Epilepsy (HCC); Encounter for long-term (current) use of other medications 06/26/2009 8:46 AM EDT - 06/26/2009 11:59 PM EDT Hospital Encounter HST RADIOLOGY GRT Wang Ospina 06/15/2009 Telephone SEP [facility] [address] [place] [address] Germán Bradley MD Other 06/15/2009 2:00 PM EST Office Visit [facility] [address] [place] [address] Germán Bradley MD Shoulder pain; Bipolar affective disorder (HCC) 06/06/2009 Telephone SEP [facility] [address] [place] [address] Nelda Fritz, COPYMAN Seizures 05/30/2009 5:31 PM EST - 05/30/2009 11:59 PM EST Hospital Encounter HST EPIC CON UNK EDG Dustin Mcintyre MD 04/20/2009 Abstract SEP [facility] [address] [facility] 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); Bipolar affective disorder ([facility]); Depression, major ([facility]); Asthma; COPD (chronic obstructive pulmonary disease) ([facility]); Hearing loss in left ear; GERD [...] EDT Hospital Encounter HST LAB WONGG Germán Bradely MD 08/19/2007 8:11 PM EDT - 08/19/2007 [...] EDT Emergency HST EPIC CON UNK GRT Karemn Ivy MD 09/26/2000 8:31 AM EDT - [...] PM EDT Hospital Encounter [facility]ST [facility] 01/25/1999 5:20 PM EDT - [...] Hospital Encounter HST EPIC CON UNK EDG [facility] 05/26/1997 6:49 PM EST - 05/26/1997 11:59 PM EST Emergency HST MAJOR ER EDG Ty Griffiths DO 12/26/1996 7:54 PM EDT - 12/26/1996 11:59 PM EDT Hospital Encounter [facility] 10/18/1996 5:34 PM EDT - 10/18/1996 11:59 PM EDT Emergency HST EPIC CON UNK EDG Augustine Baldwin MD 10/11/1996 10:10 AM EDT - 10/11/1996 12:10 PM EDT Hospital Encounter HST Jaime Perez MD 03/13/1996 6:17 PM EST - 03/13/1996 11:59 PM EST Hospital Encounter [facility] 01/21/1996 7:05 PM EDT - 01/21/1996 11:59 PM EDT Hospital Encounter HST EPIC CON UNK COV [facility] 01/01/1996 8:11 PM EDT - 01/06/1996 2:05 PM EDT Hospital Encounter HST BH2 Rosa Clark MD 12/26/1995 8:21 AM EDT - 12/26/1995 11:59 PM EDT Hospital Encounter [facility]ST [facility] 10/26/1995 9:59 PM EDT - 10/30/1995 1:44 PM EDT Hospital Encounter HST BH2 Wang Rosales MD Cohen, Raymond L 10/12/1995 7:54 PM EDT - 10/12/1995 11:59 PM EDT Hospital Encounter HST [facility]IC [facility] 10/04/1995 9:50 PM EDT - 10/07/1995 12:05 [...] 9 Active fluticasone (FLONASE) 50 mcg/actuation Nasl Morning Sun, SuspensionIndicati ons:Chronic seasonal allergic rhinitis due to [...] Mother 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 Smoking Status as of 11/08/2024 Tobacco Use Types Packs/Day Years Used Date [...] on file Medical Devices Implanted Type Area Remote Sensing Surveyor Device Identifier Shelf Expiration Date Model / Serial / Lot Watkins Lupine Br W/Dual Suture Orthocord - [id number] Implanted:Qty : 1 on 01/18/2013 by Crow Love MD at [facility] Left: Shoulder J&J:ETHICON:MITE K PRDT [id number] 06/12/2015 [id number] / / [id number] Watkins Lupine Br W/Dual Suture Orthocord - [id number] Implanted:Qty : 1 on 01/18/2013 by Crow Love MD at [facility] Left: Shoulder J&J:ETHICON:MITE K PRDT [id number] 06/11/2014 [id number] / / [id number] Watkins Advance Healix 5.5 Br - [id number] Implanted:Qty : 1 on 06/20/2015 by Crow Love MD at [facility] Right: Shoulder J&J:ETHICON:MITE K PRDT 05/14/2017 [id number] / / [id number] Procedures Procedure Name Priority Date/Time Associated Diagnosis [...] meniscus of knee, current Special Needs FAX CPT;63343 [id number] POCT EKG Routine 06/08/2014 10:16 AM EST [...] Chronic maxillary sinusitis Special Needs NICOL CPT; 28868/79896 HEPATIC FUNCTION PANEL Routine 4 11:31 AM [...] EDT Rotator cuff (capsule) sprain Special Needs CPT;28863 [id number] MRI SHOULDER LEFT WO CONTRAST Routine 12/25/2012 [...] - 946 pg/mL 06/01/2018 4:11 PM EST [employer] Folate >16.00(H) 4.50 - 16.00 ng/mL 06/01/2018 4:11 PM EST [employer] Blood VENOUS BLOOD / Unknown Venipuncture / Unknown 06/01/2018 10:14 AM EST 06/01/2018 10:14 AM EST Narrative [facility] [employer] - 06/01/2018 4:11 PM EST Ingestion of roxanna doses of biotin (>5 mg/day) taken within 8 hours of drawing blood sample can interfere with this immunoassay test. us Dustin Mcintyre MD CHEMISTRY ORDERABLES F inal Result [facility] [employer] [address] [facility] , [place] [address] * TSH REFLEX (06/01/2018 10:14 AM EST) TSH Reflex 1.640 0.270 - 4.200 mcIU/mL 06/01/2018 3:53 PM EST [facility] [employer], [facility] Blood VENOUS BLOOD / Unknown Venipuncture / Unknown 06/01/2018 10:14 AM EST 06/01/2018 10:14 AM EST Narrative [facility] [employer], [facility] - 06/01/2018 3:53 PM EST Ingestion of roxanna doses of biotin (>5 mg/day) taken within 8 hours of drawing blood sample can interfere with this immunoassay test. Dustin Mcintyre MD CHEMISTRY ORDERABLES F inal Result Performing Organization Address City/[facility]/ZIP Co de Phone Number [facility] [place] [address] , [place] [address] * (ABNORMAL) ACUTE HEPATITIS PANEL (06/01/2018 10:14 AM EST) Only the most recent of2 resultswithin the time period is included. Pathologist [facility] Hep Bs Ag Non-Reacti ve Non-Reacti ve 06/02/2018 11:57 AM EST [facility]REFERRED [facility] [employer], [facility] Hep B Core IgM Non-Reacti ve Non-Reacti ve 06/02/2018 11:57 AM EST [facility] [employer], [facility] Hep A IgM Non-Reacti ve Non-Reacti ve 06/02/2018 11:57 AM EST [facility] [employer], [facility] Hep C Ab Reactive(A ) Non-Reacti ve 06/02/2018 11:57 AM EST [facility] [employer], [facility] Comment:Reactive. Antibodies to HCV detected. >97% of specimens with high signal cutoff confirm as reactive. HCV QUANT W/RFLX TO GENOTYPE -REF LAB Blood VENOUS BLOOD / Unknown Venipuncture / Unknown 06/01/2018 10:14 AM EST 06/01/2018 10:14 AM EST Dustin Mcintyre MD CHEMISTRY ORDERABLES F inal Result Performing Organization Address City/[facility]/ZIP Co de Phone Number [facility] [employer], [address] , [place] [address] * (ABNORMAL) CBC WITH DIFF [...] 3:19 PM EST [facility] [place] Percent 11.4 % 06/01/2018 3:19 PM EST [facility] Eos Percent 3.8 % 06/01/2018 3:19 PM EST [facility] Baso Percent 0.6 % 06/01/2018 3:19 PM EST [facility] Neut # 3.4 1.6 - 6.1 x10(3)/mcL 06/01/2018 3:19 PM EST [facility] [employer], [facility] Comment:Neutrophils equals s egs plus bands IMMGRAN# 0.0 0.0 - 0.1 x10(3)/[facility] 06/01/2018 3:19 PM EST [facility] LAB [employer], [facility] Comment:Automated count of m etamyelocytes, myelocytes and promyelocytes. An absolute IG <0.1 is reported as 0.0. Lymph # 2.1 1.2 - 3.9 x10(3)/[facility] 06/01/2018 3:19 PM EST [facility] [employer], [facility] [place] # 0.8 0.3 - 0.9 x10(3)/[facility] 06/01/2018 3:19 PM EST [facility], [facility] Eos# 0.3 0.0 - 0.5 x10(3)/[facility] 06/01/2018 3:19 PM EST [facility] [employer], [facility] Baso # 0.0 0.0 - 0.1 x10(3)/[facility] 06/01/2018 3:19 PM EST [facility] [employer], [facility] Blood VENOUS BLOOD / Unknown Venipuncture / Unknown 06/01/2018 10:14 AM EST 06/01/2018 10:14 AM EST Dustin Mcintyre MD HEMATOLOGY ORDERABLES Final Result Performing Organization Address [facility] Co de Phone Number [facility] Mar[place] [address] , [place] [address] * (ABNORMAL) PHENYTOIN LEVEL TOTAL (06/01/2018 10:14 AM EST) Only the most recent of20 resultswithin the time period is included. Dilantin 9.0(L) 10.0 - 20.0 mcg/mL 06/01/2018 3:51 PM EST [facility] [employer], [facility] Blood VENOUS BLOOD / Unknown Venipuncture / Unknown 06/01/2018 10:14 AM EST 06/01/2018 10:14 AM EST Dustin Mcintyre MD CHEMISTRY ORDERABLES F inal Result Performing Organization Address [facility] Co de Phone Number [facility] [address] [facility] , [place] [address] * (ABNORMAL) COMPREHENSIVE METABOLIC PANEL (06/01/2018 10:14 [...] mL/min/1.7 3 m2 06/01/2018 3:53 PM EST [facility] GFR Non Afr Am 96 >=60 mL/min/1.7 3 m2 06/01/2018 3:53 PM EST [facility] Comment: This estimated GFR was [...] ORDERABLES F inal Result [facility], [facility] [address] [facility], [place] [address] [facility] [address] [place] [address] * POCT URINALYSIS DIPSTICK (06/01/2018 9:40 AM EST) Only the most recent of4 resultswithin the time period is included. 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, UA 1.025 1.001 - 1.035 G/DL SEP OFFICE Blood, UA neg POS/NEG SEP OFFICE pH, UA 6.0 5.0 - 8 SEP OFFICE Protein, UA neg POS/NEG SEP OFFICE Urobilinogen, UA 1+ 0.2 - 1.0 MG/DL SEP OFFICE Leukocytes, UA neg POS/NEG SEP OFFICE Nitrite, UA neg POS/NEG SEP OFFICE UA Appear POC SEP OFFICE Lot Number [id number] SEP OFFICE Expiration Date 12/22/2019 SEP OFFICE [...] 207(H) <=200 mg/dL 12/05/2017 3:59 PM EDT [facility] [employer], [employer] Comment: < 200 Desirable 200 - 239 Borderline High >= 240 High Triglyceride 316(H) <=150 mg/dL 12/05/2017 3:59 PM EDT [employer] [employer] Comment: < 150 Normal 150 - 199 Borderline High 200 - 499 High >= 500 Very High HDL 33(L) >=40 mg/dL 12/05/2017 3:59 PM EDT [employer] [employer] Comment: > 60 Optimal 40 - 60 Acceptable < 40 Low LDL Calculated 111(H) <=100 mg/dL 12/05/2017 3:59 PM EDT [employer] [employer] Non-HDL-C Calculated 174(H) <=129 mg/dL 12/05/2017 3:59 PM EDT [employer] [employer] Comment: <130 Desirable 130-159 Above Desirable 160-189 Borderline High 190-219 High >= 220 Very High Blood VENOUS BLOOD / Unknown Venipuncture / Unknown 12/05/2017 9:03 AM EDT 12/05/2017 9:03 AM EDT us Germán Bradley MD CHEMISTRY ORDERABLES Final Re sult [facility] [employer] [employer] [address] [facility] , [place] [address] * DRUGS OF ABUSE, SCREEN ONLY, URINE (06/30/2017 10:59 PM EDT) Only the most recent of2 resultswithin the time period is included. 6 AM (Heroin) Absent Absent 06/30/2017 11:29 PM EDT [facility] Amphetamines Absent Absent 06/30/2017 11:29 PM EDT [facility] Barbiturates Absent Absent 06/30/2017 11:29 PM EDT [facility] Benzodiazepines Absent Absent 8 11:29 PM EDT [facility] Buprenorphine Absent Absent 06/30/2017 11:29 PM EDT [facility] Cannabinoid Metabolite Absent Absent 06/30/2017 11:29 PM EDT [facility] Cocaine Metabolite Absent Absent 2017 11:29 PM EDT [facility] Methadone and Metabolite Absent Absent 06/30/2017 11:29 PM EDT [facility] Opiate Absent Absent 06/30/2017 11:29 PM EDT [facility] Oxycodone Lvl Absent Absent 06/30/2017 11:29 PM EDT [facility] Phencyclidine Absent Absent 06/30/2017 11:29 PM EDT [facility] Creatinine Ur >25.0 mg/dL 06/30/2017 11:29 PM EDT [facility] Comment: Greater than 20: Consistent with valid sample Greater than 2 but less than 20: Possible dilution Less than 2: Questionable valid sample Urine STRUCTURE OF URINARY TRACT PROPER / Unknown 06/30/2017 10:59 PM EDT 06/30/2017 11:03 PM EDT Narrative [facility] - 06/30/2017 11:29 PM EDT These [...] ORDERABLES Final Resul t Performing Organization Address [facility] de Phone Number [facility] [address] [place] [address] * EXTRA GOLD SST (06/30/2017 10:18 PM EDT) Blood VENOUS BLOOD / Unknown Venipuncture / Unknown 06/30/2017 10:18 PM EDT 06/30/2017 10:27 PM EDT us Robbie Queen MD CHEMISTRY ORDERABLES Final Resul t Performing Organization Address [facility] de Phone Number [facility] [address] [place] [address] * EXTRA LAVENDER (06/30/2017 10:18 PM EDT) Blood VENOUS BLOOD / Unknown Venipuncture / Unknown 06/30/2017 10:18 PM EDT 06/30/2017 10:27 PM EDT us Robbie Queen MD HEMATOLOGY ORDERABLES Final Resu lt Performing Organization Address [facility] de Phone Number [facility] [address] [place] [address] * EXTRA LIGHT BLUE (06/30/2017 10:18 PM EDT) Only the most recent of2 resultswithin the time period is included. Blood VENOUS BLOOD / Unknown Venipuncture / Unknown 06/30/2017 10:18 PM EDT 06/30/2017 10:27 PM EDT us Robbie Queen MD HEMATOLOGY ORDERABLES Final Resu lt Performing Organization Address [facility] Co de Phone Number [facility] [address] [place] [address] * (ABNORMAL) ALCOHOL MEDICAL (06/30/2017 10:18 PM EDT) Only the most recent of2 resultswithin the time period is included. Alcohol Medical 36(H) <=10 mg/dL 06/30/2017 10:39 PM EDT [facility] Blood VENOUS BLOOD / Unknown Venipuncture / Unknown 06/30/2017 10:18 PM EDT 06/30/2017 10:26 PM EDT us Robbie Queen MD CHEMISTRY ORDERABLES Final Resul t Performing Organization Address [facility] de Phone Number [facility] [address] [place] [address] * ACETAMINOPHEN LEVEL (06/30/2017 10:18 PM EDT) Only the most recent of2 resultswithin the time period is included. Acetaminophen Lvl <15.0 mcg/mL 018 11:16 PM EDT [facility] Blood VENOUS BLOOD / Unknown Venipuncture / Unknown 06/30/2017 10:18 PM EDT 06/30/2017 10:27 PM EDT Narrative [facility] - 06/30/2017 11:16 PM EDT Therapeutic: 10-30 mcg/ml Supratherapeutic: > 35 mcg/ml Toxic: > 150 mcg/ml (4h post ingestion) > 75 mcg/ml (8h post ingestion) > 40 mcg/ml (12h post ingestion) us Holly Brannon APRN CHEMISTRY ORDERABLES Final R esult Performing Organization Address [facility] Co de Phone Number [facility] [address] [place] [address] * SALICYLATE LEVEL (06/30/2017 10:18 PM EDT) Only the most recent of2 resultswithin the time period is included. Salicylate <0.3 <=0.3 mg/dL 06/30/2017 11:16 PM EDT [facility] Blood VENOUS BLOOD / Unknown Venipuncture / Unknown 06/30/2017 10:18 PM EDT 06/30/2017 10:27 PM EDT us Holly Brannon ELEMENT SETTER CHEMISTRY ORDERABLES Final R esult [facility] [address] [place] [address] * (ABNORMAL) BASIC METABOLIC PANEL (06/30/2017 10:18 PM EDT) Only the most recent of5 resultswithin the time period is included. Pathologist [facility] Sodium 142 136 - 145 mmol/L 06/30/2017 11:16 PM EDT [facility] Potassium 4.1 3.5 - 5.0 mmol/L 06/30/2017 11:16 PM EDT [facility] Chloride 101 98 - 107 mmol/L 06/30/2017 11:16 PM EDT [facility] Total CO2 26 22 - 29 mmol/L 06/30/2017 11:16 PM EDT [facility] Anion Gap 15 7 - 16 mmol/L 06/30/2017 11:16 PM EDT [facility] Calcium 9.4 8.6 - 10.2 mg/dL 06/30/2017 11:16 PM EDT [facility] Glucose Lvl 115(H) 74 - 100 mg/dL 06/30/2017 11:16 PM EDT [facility] BUN 12 6 - 20 mg/dL 06/30/2017 11:16 PM EDT [facility] Creatinine 0.96 0.67 - 1.30 mg/dL 06/30/2017 11:16 PM EDT [facility] GFR Afr Am 110 mL/min/1.7 3 m2 06/30/2017 11:16 PM EDT [facility] GFR Non Afr Am 95 mL/min/1.7 3 m2 06/30/2017 11:16 PM EDT [facility] Comment: GFR Afr Am and GFR [...] 06/30/2017 10:26 PM EDT us Holly Brannon ELEMENT SETTER CHEMISTRY ORDERABLES Final R esult [facility] [address] [place] [id number] * XR WRIST RIGHT PA LATERAL AND [...] ORDERAB LES Final Result Performing Organization Address City/[facility] Co de Phone Number [facility] [address] [place] [address] * URINALYSIS (04/16/2017 1:05 AM EST) Only the most recent of3 resultswithin the time period is included. UA Color Yellow 04/16/2017 1:20 AM EST [facility] UA Appear Clear Clear 04/16/2017 1:20 AM EST [facility] UA Glucose Negative Negative mg/dL 04/16/2017 1:20 AM EST [facility] UA Ketones Negative Negative mg/dL 04/16/2017 1:20 AM EST [facility] UA Blood Negative Negative 04/16/2017 1:20 AM EST [facility] UA pH 6.0 5.0 - 8.0 pH 04/16/2017 1:20 AM EST [facility] UA Protein Negative Negative mg/dL 04/16/2017 1:20 AM EST [facility] UA Urobilinogen 0.2 <=1 E.U./dL 04/16/19 18 1:20 AM EST [facility] UA Nitrite Negative Negative 04/16/2017 1:20 AM EST [facility] UA Leuk Est Negative Negative 04/16/2017 1:20 AM EST [facility] UA Spec Grav 1.025 1.001 - 1.035 no units 04/16/2017 1:20 AM EST [facility] Comment: Reference range valid for random specimens only. Urine URINE SPECIMEN COLLECTION, CLEAN CATCH / Unknown 04/16/2017 1:05 AM EST 04/16/2017 1:17 AM EST us Jose Carlos Rasheed MD URINE ORDERABLES Final Result Performing Organization Address City/[facility] Co de Phone Number [facility] [address] [place] [address] * LDL, CALCULATED (01/07/2017 10:30 AM EDT) [...] ORDERABLES F inal Result Performing Organization Address [facility] de Phone Number [address] [address] * (ABNORMAL) DIFFERENTIAL (01/07/2017 10:30 AM EDT) Only the most recent of11 resultswithin the time period is included. Neut Percent 48.5 % [facility] Lymph Percent 34.1 % [facility] [place] Percent 9.2 % [facility] Eos Percent 6.9 % [facility] Baso Percent 1.3 % [facility] Neut# 3.9 1.8 - 7.7 x10(3)/mcL [facility] Lymph# 2.7 0.6 - 4.8 x10(3)/[facility] [place]# 0.7 0.0 - 1.3 x10(3)/[facility] Eos# 0.6(H) 0.0 - 0.5 x10(3)/[facility] Baso# 0.1 0.0 - 0.2 x10(3)/[facility] Blood specimen (specimen) 01/07/2017 10:30 AM EDT 01/07/2017 3:48 PM EDT us Dustin Mcintyre MD HEMATOLOGY ORDERABLES Final Result Performing Organization Address [facility] Co de Phone Number [address] [address] * XR KNEE RIGHT AP LAT INT [...] AM EST) 05/06/2016 8:51 AM EST Impressions [facility] - 05/06/2016 8:51 AM EST Good [...] Germán Bradley MD PFT ORDERABLES Final Result [facility] [address] [place] [address] * POCT EKG (04/29/2016 2:23 PM EST) Only the most recent of4 resultswithin the time period is included. 04/29/2016 2:23 PM EST Impressions SEP OFFICE - 04/29/2016 2:23 PM EST nsr No ischemia Normal ekg Germán Bradley MD POINT OF CARE CARDIOLOGY Zayra l Result Performing Organization Address City/[facility]/ZIP Co de Phone Number SEP OFFICE * SYPHILIS SCREEN WITH REFLEX RPR QUANT (04/01/2016 4:37 PM EST) TREP(SYPHILIS) AB INDEX <0.10 <=1.09 Index Value [facility] Comment: <0.90 - Negative 0.90 to 1.00 - Equivocal Patients with equivocal results should be retested in 7-14 days. >=1.10 - Positive NOTE: All equivocal and positive results will be reflexed to Quantitative Non-Treponemal(RPR)test. Blood specimen (specimen) UPPER LIMB STRUCTURE / Unknown 04/01/2016 4:37 PM EST 04/01/2016 8:41 PM EST Germán Bradley MD CHEMISTRY ORDERABLES Final Re sult Performing Organization Address [facility] [place] [address] * XR LUMBAR SPINE AP AND LATERAL [...] DIAGNOSTIC IMAGING ORDERABLE S Final Result * [place] LOWER EXTREMITY VENOUS LEFT (06/23/2015 6:16 [...] PERIPHERAL BLOCK (06/20/2015 7:47 AM EST) Narrative [facility] - 06/20/2015 7:47 AM EST Jerson [...] bill Result - Final Performing Organization Address [facility] de Phone Number [facility] [address] [place] [address] * LDL DIRECT (04/20/2015 9:44 AM EST) Only the most recent of5 resultswithin the time period is included. LDL Direct 65 <=100 mg/dL [facility] Comment: < 100 Optimal 100 - 129 Near or above optimal 130 - 159 Borderline High 160 - 189 High >= 190 Very High Blood specimen (specimen) 04/20/2015 9:44 AM EST 04/20/2015 3:48 PM EST us Germán Bradley MD CHEMISTRY ORDERABLES Final Re sult Performing Organization Address [facility] Co de Phone Number [facility] [address] [place] [id number] * MRI SHOULDER RIGHT WO CONTRAST (03/22/2015 [...] included. WBC 7.2 4.0 - 11.0 x10(3)/mcL [facility] RBC 4.86 4.30 - 5.81 x10(6)/mcL [facility] Hgb 16.1 13.5 - 17.1 gm/dL [facility] Hct 47.6 38.9 - 51.6 % [facility] MCV 97.9 82.5 - 99.8 fL [facility] MCH 33.1 27.0 - 34.3 pg [facility] MCHC 33.8 32.1 - 35.3 gm/dL [facility] RDW 13.6 11.5 - 15.0 % [facility] Platelet 211 144 - 423 x10(3)/mcL [facility] MPV 9.2 6.8 - 10.8 fL [facility] Blood specimen (specimen) UPPER LIMB STRUCTURE / Unknown 11/04/2014 10:36 AM EDT 11/04/2014 4:05 PM EDT Dustin Mcintyre MD HEMATOLOGY ORDERABLES Final Result Performing Organization Address City/State/[facility] Co de Phone Number [facility] [address] [place] [address] * SCANNED PATHOLOGY REPORT (09/20/2014 5:07 PM [...] AM EST 03/08/2014 3:39 PM EST Narrative [facility] - 03/16/2014 8:03 AM EST [employer]-See attached Fax to [phone] us Los Gordon MD HEMATOLOGY ORDERABLES Edited Result - Final [facility] [address] [place] [address] * SCANNED PRE/POST PROCEDURES (02/08/2014 1:26 AM [...] Saldana (Electronicall y signed by) Verified: 02/07/2014 [facility] Clinical Information Chronic maxillary sinusitis. Gross Description Part 1) Received in formalin labeled with the patient's name and right maxillary ethmoid sinus contents is a 2.0 x 2.0 x 0.3 cm aggregate of red- houstno soft tissue fragments and rare bone. The [...] performed and the findings corroborate the diagnosis. [facility] 02/04/2014 8:20 AM EDT us Los Gordon MD PATHOLOGY ORDERABLES Final R esult [facility] [address] [place] [address] * FUNGUS CULTURE-OTHER (02/04/2014 8:00 AM EDT) Final No growth of fungus at 4 weeks [facility] Specimen from nose (specimen) NASAL STRUCTURE / Unknown 02/04/2014 8:00 AM EDT 02/04/2014 10:08 AM EDT Comment:LEFT MAX SINUS SWAB Narrative [facility] - 03/04/2014 4:01 PM EST Aerobic, anaerobic, fungus culture from left maxillary sinus Los Gordon MD MICROBIOLOGY - GENERAL ORDER MK Final Result [facility] [address] [place] [address] * WOUND CULTURE (02/04/2014 8:00 AM EDT) GS No slide sent/smear made after culture inoculated Rare WBC's Rare RBC's Rare Gram positive cocci [facility] Final Moderate growth of Staphylococcus aureus Sparse growth of Coagulase negative staphylococci No further workup Moderate growth of beta hemolytic Streptococci suspect Streptococcus anginosus group No further workup [facility] Organism Staphylococcus aureus [facility] Specimen from nose (specimen) NASAL STRUCTURE / Unknown 02/04/2014 8:00 AM EDT 02/04/2014 10:08 AM EDT Comment:LEFT MAX SINUS SWAB Narrative [facility] - 02/07/2014 9:08 AM EDT Aerobic, [...] ORDER MK Final Result Performing Organization Address [facility] de Phone Number [facility] [address] [place] [address] * ANAEROBIC CULTURE (02/04/2014 8:00 AM EDT) Final No anaerobic growth at 5 days [facility] Specimen from nose (specimen) NASAL STRUCTURE / Unknown 02/04/2014 8:00 AM EDT 02/04/2014 10:08 AM EDT Comment:LEFT MAX SINUS SWAB Narrative [facility] - 02/10/2014 5:01 PM EDT Aerobic, anaerobic, fungus culture from left maxillary sinus Los Gordon MD MICROBIOLOGY - GENERAL ORDER MK Final Result Performing Organization Address [facility] de Phone Number [facility] [address] [place] [address] * HEPATIC FUNCTION PANEL (01/24/2014 11:31 AM EDT) Only the most recent of2 resultswithin the time period is included. Total Protein 6.8 6.4 - 8.3 gm/dL [facility] Albumin 4.2 3.5 - 5.2 gm/dL [facility] Bili Direct <0.2 0.0 - 0.3 mg/dL [facility] Bili Total 0.1 0.1 - 1.4 mg/dL [facility] AST 40 <=40 IU/L [facility] ALT 38 <=41 IU/L [facility] Alk Phos 106 40 - 129 IU/L [facility] Blood specimen (specimen) UPPER LIMB STRUCTURE / Unknown 01/24/2014 11:31 AM EDT 01/24/2014 2:38 PM EDT Koffi Jay MD CHEMISTRY ORDERABLES Edited R esult - Final Performing Organization Address [facility] Co de Phone Number [facility] [address] [place] [address] * XR WRIST LEFT PA LATERAL AND [...] 10:12 AM EDT) Total PSA 0.66 ng/mL [facility] Comment: 2008 AUA Best Practice Statement Guidelines-Age Adjusted Reference Intervals: Age Range Whites Americans Americans 40-49 years 0-2.5 ng/mL 0-2.0 ng/mL 0-2.0 ng/mL 50-59 years 0-3.5 ng/mL 0-4.0 ng/mL 0-3.0 ng/mL 60-69 years 0-4.5 ng/mL 0-4.5 ng/mL 0-4.0 ng/mL 70-79 years 0-6.5 ng/mL 0-5.5 ng/mL 0-5.0 ng/mL [facility] uses the [employer] Total PSA assay, which is approved as [...] Mcintyre MD CHEMISTRY ORDERABLES F inal Result [facility] [address] [place] [address] * MRI BRAIN W WO CONTRAST (07/23/2013 [...] be called to his cell phone at [phone]. This call was not made by radiology. [...] results be called to his cell phone [phone]. This call was not made by radiology. Richards us Germán Bradley MD [facility] DIAGNOSTIC IMAGING ORDERA BLES Final Result * [...] trauma. IMPRESSION: Negative exam. Mariaelena Rossi MD [facility] DIAGNOSTIC IMAGING ORDER MK Final Result * [...] AM EDT) Hgb A1c 5.3 <=7.0 % [facility] Comment: Initial Diagnostic Criteria < 5.7 % Normal 5.7 - 6.4 % At risk for diabetes mellitus >= 6.5 % Consistent with diabetes mellitus Diabetes monitoring Target Value (ADA recommended): < 7 % Blood specimen (specimen) UPPER LIMB STRUCTURE / Unknown 12/19/2010 11:00 AM EDT 12/19/2010 4:04 PM EDT Germán Bradley MD CHEMISTRY ORDERABLES Final Re sult [facility] [address] [place] [address] * XR ANKLE RIGHT AP LATERAL AND [...] ANTIBODY IGG (11/07/2009 4:13 PM EDT) Pathologist [facility] H pylori IgG 0.44 Index Value [facility] Comment: I.V. = Index Value I.V. < 0.90 No detectable IgG antibodies to H. Pylori I.V. 0.90 - 1.09 Equivocal for IgG antibodies to H. Pylori. Re-testing a new specimen is recommended. I.V. >= 1.10 H. Pylori IgG antibody detected. Blood specimen (specimen) 11/07/2009 4:13 PM EDT 11/07/2009 8:55 PM EDT us Germán Bradley MD IMMUNOLOGY ORDERABLES Final R esult [facility] [address] [place] [address] * SCANNED EKG (11/06/2009 12:00 AM EDT) Anatomical Region Laterality Modality Other Narrative 11/06/2009 9:16 AM EDT Ordered by an unspecified provider. Transcriptions Unknown, Unknown - 11/06/2009 5:12 AM EDT us Unknown Unknown IMG ECG ORDERABLES Final Result * TROPONIN-I (11/05/2009 12:01 AM EDT) Troponin-I 0.01 ng/mL [facility] Comment: Note: New reference ranges for [...] Griffiths DO CHEMISTRY ORDERABLES Final Re sult [facility] [address] [place] [address] * XR CHEST PORTABLE GC (11/04/2009 11:28 [...] normal limits. IMPRESSION- Normal portable chest . Location Man- ALBERT CRAIG MD Reading Physician- ALBERT CRAIG [...] normal limits. IMPRESSION- Normal portable chest . Location Man- ALBERT CRAIG MD Reading Physician- ALBERT CRAIG MD Released Date Time- 11/04/09 2352 us Ty Griffitsh DO IMG [facility] HISTORICAL F inal Result * (ABNORMAL) PHENOBARBITAL LEVEL (11/04/2009 11:27 PM EDT) Phenobarbital Lvl <3.0(L) 15.0 - 40.0 mcg/mL [facility] Blood specimen (specimen) 11/04/2009 11:27 PM EDT 11/05/2009 6:47 PM EDT Ty Griffiths DO CHEMISTRY ORDERABLES Final Re sult [facility] [address] [place] [address] * EK EKG REG GC (11/04/2009 11:02 PM EDT) Only the most recent of3 resultswithin the time period is included. Anatomical Region Laterality Modality Other 11/04/2009 11:0 2 PM EDT Narrative 11/06/2009 2:48 PM EDT Sinus bradycardia Normal ECG except for rate Location Man- TY Healy PhysicianJenni FOY Released Date Time- 11/06/09 1448 Procedure Note Ty Foy S - 11/06/2009 Sinus bradycardia Normal ECG except for rate Location Man- TY Healy Physician- TY FOY Released Date Time- 11/06/09 1448 Ty Griffiths DO [facility] STAR CARD HISTORICAL Final Result * MR [...] 3. Degenerative changes of the AC joint. Location Man- LISSETTE Healy Physician- MEMO TONG M.D. Released [...] 3. Degenerative changes of the AC joint. Location Man- LISSETTE Healy Physician- MEMO TONG M.D. Released Date Time- 09/01/09 1124 Marcela Ding MD [facility] GARRICK Thomas Final Result * XR BILAT [...] radiographically on the right than the left. Location Mand[place]o Healy Physician- MEMO TONG M.D. Released Date [...] Date Time- 08/24/091914 Marcela Ding MD IMG [facility] GARRICK RAD CHARANICA L Final Result * SCANNED ECG (08/03/2009 12:00 AM EDT) Only the most recent of2 resultswithin the time period is included. Anatomical Region Laterality Modality Other Narrative 08/03/2009 6:51 PM EDT Ordered by an unspecified provider. Transcriptions Unknown, Unknown - 08/03/2009 2:51 PM EDT us Unknown Unknown [facility] ECG ORDERABLES Final Result * MR ORBIT,FACE [...] Diffuse cerebellar hemisphere atrophy of uncertain etiology. Location Man- RADHA Healy Physician- CEASAR MARROQUIN MD Released [...] Diffuse cerebellar hemisphere atrophy of uncertain etiology. Location Man- RADHA CEE Reading Physician- CEASAR MARROQUIN MD Released Date Time- 06/26/09 1604 Wang Ospina [facility] RAD HISTORICAL Fin al Result * MR [...] medial meniscus, also apparent on plain films. Location Man- PETTY LEVIN Reading Physician- LEONARDO PUCKETT MD [...] medial meniscus, also apparent on plain films. Location Man- PETTY Healy Physician- LEONARDO PUCKETT MD Released Date Time- 09/19/082050 Germán Bradley MD [facility] RAD HISTORICAL F inal Result * XR LOWER LEG TIBIA/FIBULA GC (09/09/2008 1:55 PM EDT) Anatomical Region Laterality Modality Other 09/09/2008 1:55 PM EDT Narrative 09/09/2008 6:39 PM EDT Examinations of the left tibia and fibula Indications- Pain. History- Pain. Two views of the left tibia and fibula demonstrate no fractures. There are no malalignments. The cortical margins are intact. Impression- No fractures. Location Man- PETTY LIVINGSTON Reading Physician- MEMO TONG M.D. Released Date Time- 09/09/081949 Procedure Note Memo Tong - 06/22/2009 Examinations of the left tibia and fibula Indications- Pain. History- Pain. Two views of the left tibia and fibula demonstrate no fractures. There are no malalignments. The cortical margins are intact. Impression- No fractures. Uli Gandara- MEMO TONG M.D. Released Date Time- 09/09/081949 Germán Bradley MD [facility] RAD HISTORICAL F inal Result * XR [...] If so, MRI evaluation may be warranted. Location Man- PETTY Healy Physician- MEMO TONG M.D. Released Date Time- 09/09/081949 Germán Bradley MD [facility] HISTORICAL F inal Result * HOLTER MONITOR [...] The diary was blank. Carolina Campbell bm12-04-07 Location Man- RICK Healy Physician- ISAC BALLARD MD Released [...] The diary was blank. Carolina Campbell. 12-04-07 Location Man- RICK Healy Physician- ISAC BALLARD MD Released Date Time- 12/04/07 1013 Finesse Moore MD [facility] STAR CARD HISTORIC AL Final Result * XR KNEE (04/02/2007 4:00 PM EST) Anatomical Region Laterality Modality Other 04/02/2007 4:00 PM EST Narrative 04/02/2007 4:26 PM EST PER /JESÚS RM7 Left knee 4 views, 04/02/2007 History- Pain following a twisting injury. Findings- There is no acute fracture or subluxation. Joint spaces and articular margins are intact. No definite joint effusion. Impression- Normal. Location Man- JANA SARKAR Reading Radiologist- PINO ALBARADO Released Date Time- 04/02/07 1633 Procedure Note Pino Albarado - 06/21/2009 PER /JESÚS RM7 Left knee 4 views, 04/02/2007 History- Pain following a twisting injury. Findings- There is no acute fracture or subluxation. Joint spaces and articular margins are intact. No definite joint effusion. Impression- Normal. Location Man- JANA Healy Radiologist- PINO ALBARADO Released Date Time- 04/02/07 1633 David Palma MD [facility] RAD HISTORICAL F inal Result * XR [...] Impression- No fracture or dislocation, ankle joint. Location Man- DALE VELÁSQUEZ Reading Radiologist- RADHA PORTER MD. [...] Impression- No fracture or dislocation, ankle joint. Location Man- DALE Healy Radiologist- RADHA PORTER MD. Released Date Time- 01/01/06913 Robbie Eldridge MD [facility] HISTORICAL Fi nal Result * XR FOOT [...] soft tissue swelling. Impression- 1. Negative exam. Location Man- ANGELA SMITH Reading Radiologist- RADHA PORTER MD. [...] soft tissue swelling. Impression- 1. Negative exam. Location Man- ANGELA SMITH Reading Radiologist- RADHA PORTER MD. Released Date Time- 01/01/06913 Robbie Eldridge MD [facility] [employer] HISTORICAL Fi nal Result * XR SCAPULA [...] definite fracture is identified. Dustin Mcintyre MD [facility] [employer] HISTO RICAL Final Result * XR NOSE [...] The septum is midline. Dustin Mcintyre MD [facility] STAR RAD HISTO RICAL Final Result Visit [...] facility 2014 COPD (chronic obstructive pulmonary disease) ([facility]) Chronic airway obstruction, not elsewhere classified 2014 Acute bronchitis 05/18/2014 Acute sinusitis Acute sinusitis, unspecified 05/18/2014 COPD (chronic obstructive pulmonary disease) ([facility]) Chronic airway obstruction, not elsewhere classified 05/18/2014 Hypernatremia Hyperosmolality and/or hypernatremia 05/20/2014 Pre-op testing Preoperative examination, unspecified 05/20/2014 Hypernatremia Hyperosmolality and/or hypernatremia 05/20/2014 Pre-op testing Preoperative examination, unspecified 05/20/2014 Bronchitis Bronchitis, not specified as acute or chronic 05/20/2014 COPD exacerbation ([facility]) Obstructive chronic bronchitis with exacerbation 05/20/2014 Asthma exacerbation, moderate persistent 05/20/2014 Chest wall pain Painful respiration 05/20/2014 Vomiting Vomiting alone 05/20/2014 Hypernatremia Hyperosmolality and/or hypernatremia 05/20/2014 Asthma, unspecified asthma severity, uncomplicated 05/21/2014 COPD (chronic obstructive pulmonary disease) ([facility]) Chronic airway obstruction, not elsewhere classified 05/21/2014 Pre-op exam Preoperative examination, unspecified 06/08/2014 Arthritis of knee Unspecified arthropathy, lower leg 06/08/2014 Folliculitis Other specified disease of hair and hair follicles 06/08/2014 Epilepsy ([facility]) Unspecified epilepsy without mention of intractable [...] uncomplicated 11/04/2014 COPD (chronic obstructive pulmonary disease) (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
--- NOTE | 2024-11-08 13:54 | ED_ITS ---
<Statement entered by Wendy Egan DO - 11/08/24 14:19> I was consulted by the AGUILAR, and we discussed the complexity of the problems being addressed. I approved the treatment and management plan for this patient's care in the emergency department, thus performing a substantive portion of the medical decision making. Wendy Egan DO Discharge Plan Disposition Patient Disposition: Home, Self-Care Condition: Good Prescriptions Prescriptions: New sulfamethoxazole-trimethoprim [Bactrim DS] 800-160 mg tablet 1 tab PO BID 5 Days Qty: 10 0RF No Action diclofenac sodium [Voltaren Arthritis Pain] 1 % gel 2 g topical QID Qty: 100 2RF Rx Instructions: apply to single elbow, wrist or hand; for hand includes palm/fingers/back of hand duloxetine 60 mg capsule,delayed release(DR/EC) 60 mg PO DAILY Qty: 90 3RF esomeprazole magnesium 40 mg capsule,delayed release(DR/EC) See Rx Instructions .ROUTE .COMPLEX Qty: 90 2RF Dose Instruction: TAKE ONE CAPSULE BY MOUTH EVERY DAY FOR GERD Rx Instructions: TAKE ONE CAPSULE BY MOUTH EVERY DAY FOR GERD phenytoin sodium extended 200 mg capsule 200 mg PO BID Qty: 60 2RF meloxicam 15 mg tablet See Rx Instructions .ROUTE .COMPLEX Qty: 90 2RF Dose Instruction: TAKE ONE TABLET BY MOUTH EVERY DAY --TAKE WITH FOOD-- Rx Instructions: TAKE ONE TABLET BY MOUTH EVERY DAY --TAKE WITH FOOD-- buspirone 10 mg tablet See Rx Instructions .ROUTE .COMPLEX Qty: 90 2RF Dose Instruction: TAKE ONE TABLET BY MOUTH THREE TIMES DAILY FOR ANXIETY Rx Instructions: TAKE ONE TABLET BY MOUTH THREE TIMES DAILY FOR ANXIETY albuterol sulfate 90 mcg/actuation HFA aerosol inhaler See Rx Instructions .ROUTE .COMPLEX Qty: 8.5 6RF Dose Instruction: INHALE 4 puffs BY MOUTH EVERY 4 HOURS FOR 48 hours NEEDED SHORTNESS OF BREATH OR wheezing, THEN USE NEEDED Rx Instructions: INHALE 4 puffs BY MOUTH EVERY 4 HOURS FOR 48 hours NEEDED SHORTNESS OF BREATH OR wheezing, THEN USE NEEDED omega-3 fatty acids 1,000 mg capsule 2,000 mg PO DAILY Qty: 60 6RF cetirizine 10 mg tablet See Rx Instructions .ROUTE .COMPLEX Qty: 90 2RF Dose Instruction: TAKE ONE TABLET BY MOUTH EVERY DAY Rx Instructions: TAKE ONE TABLET BY MOUTH EVERY DAY azelastine 137 mcg (0.1 %) spray,non-aerosol See Rx Instructions .ROUTE .COMPLEX Qty: 30 5RF Dose Instruction: USE 1 SPRAY in each nostril twice daily as directed Rx Instructions: USE 1 SPRAY in each nostril twice daily as directed nicotine (polacrilex) 4 mg gum 4 mg buccal Q8H PRN (Reason: smoking cessation) Qty: 40 4RF Trelegy Ellipta 100-62.5-25 mcg blister with device See Rx Instructions .ROUTE .COMPLEX Qty: 60 2RF Dose Instruction: INHALE 1 PUFF BY MOUTH EVERY DAY FOR copd Rx Instructions: INHALE 1 PUFF BY MOUTH EVERY DAY FOR copd atorvastatin 40 mg tablet 40 mg PO DAILY Patient Comments: TAKE ONE TABLET BY MOUTH EVERY DAY olanzapine 5 mg tablet 5 mg PO BID Patient Comments: TAKE ONE TABLET BY MOUTH TWICE DAILY fluticasone propionate 50 mcg/actuation spray,suspension 1 spray INTRANASAL DAILY Patient Comments: instill 1 SPRAY IN EACH NOSTRIL EVERY DAY sulfamethoxazole-trimethoprim [Bactrim DS] 800-160 mg tablet 1 tab PO Q12H Qty: 20 0RF Referrals Follow up/Referrals: Christine Gonzalez APRN [Primary Care Provider, Family Practice] - See instructions Activity Restrictions/Add. Instructions Additional Instructions/Restrictions: Please follow-up with your PCP in the upcoming days, I recommend warm compresses to the area 2-3 times daily, to help with drainage of the area, take your antibiotic as prescribed with food for 5 days twice daily. Please return to the emergency department with any worsening pain swelling or growth of the area. Clinical Impressions Clinical Impression: Furuncle of axilla Instructions Patient Instructions: DI for Skin Abscess Print Language Print Language: Sami Discharge ED Provider: Wendy Egan General Adult HPI General Chief complaint: Skin/Abscess/Foreign Body Stated complaint: bump under right armpit, painful Time Seen by Provider: 11/08/24 13:42 Mode of Arrival: Ambulatory Source of Information: Patient Description of Symptoms (Recalled from ER Triage Doc. by RN): pt presents with a cyst to his R axilla. pt reports it has been there since last . No drainage noted. pt denies pain. pt states he wants someone to dionne it. History of Present Illness HPI narrative: 54-year-old male presents emergency department with a swollen right axilla for the last 4 days, states it is painful to put on deodorant , he denies shaving his axilla area chronically, but did state that he shaved , because of the pain, patient has not fever chills, denies any drainage, denies any redness or swelling around the area, chest pain shortness of breath, denies any real swelling to the area, denies any abdominal pain, no urinary type symptomatology, patient is currently a smoker, case utilized alcohol on the weekends , denies any lumps, masses, or any other lesions on his skin or breast area, patient states he has had similar lesion before. Denies any drug use, other past medical history consistent with hepatitis C, JB, MDD, BPH, COPD, RLS, GERD, seizure disorder on antico convulsant therapy. Initial triage vitals unremarkable. Please note that above description of symptoms, in this electronic medical record under categorization of recalled from ER triage doctor by RN are reflective of an initial nursing assessment, however, is not reflective of my f ull history and physical exam that was personally taken and clarified. Consequentially, this preceding description of symptoms, which may include the patient's categorized chief complaint in the EMR, do not reflect my personal clinical impression, and the ultimate description of history of present illness and patient stated complaints should be deferred to this section of the note. Unless stated otherwise or congruent with this section of the note, additional signs, symptoms, or incongruence should be interpreted as inaccurate with my clinical impression. Onset (ago): day(s) Related Data Home Medications ?Medication ?Instructions ?Recorded ?Confirmed atorvastatin 40 mg tablet 40 mg PO DAILY 03/25/2401/06 fluticasone propionate 50 1 spray intranasal DAILY 04/0609/20/24 mcg/actuation nasal spray,suspension olanzapine 5 mg tablet 5 mg PO BID 03/25/24 5 Previous Rx's ?Medication ?Instructions ?Recorded duloxetine 60 mg capsule,delayed 60 mg PO DAILY #90 ca ps 04/20/24 release esomeprazole magnesium 40 mg See Rx Instructions .Rout e 05/20/24 capsule,delayed release .COMPLEX #90 caps phenytoin sodium extended 200 mg 200 mg PO BID #60 cap s 06/28/24 capsule albuterol sulfate 90 mcg/actuation See Rx Instructions .Route 07/14/24 aerosol inhaler .COMPLEX #8.5 grams buspirone 10 mg tablet See Rx Instructions .Route 0 07/14/24 .COMPLEX #90 tabs meloxicam 15 mg tablet See Rx Instructions .Route 0 07/14/24 .COMPLEX #90 tabs omega-3 fatty acids 1,000 mg 2,000 mg (2 x 1,000 mg) P O DAILY 07/21/24 capsule #60 caps diclofenac sodium 1 % topical gel 2 g topical QID #100 grams 08/12/24 (Voltaren Arthritis Pain) azelastine 137 mcg (0.1 %) nasal See Rx Instructions . Route 08/16/24 spray .COMPLEX #30 mL cetirizine 10 mg tablet See Rx Instructions .Route 0 08/16/24 .COMPLEX #90 tabs nicotine (polacrilex) 4 mg gum 4 mg buccal Q8H PRN smo laila 08/26/24 cessation #40 ea fluticasone fur. 100 mcg-umeclid See Rx Instructions . Route 09/20/24 62.5 mcg-vilant 25 mcg .COMPLEX #60 blisters inhalat.powder (Trelegy Ellipta) sulfamethoxazole 800 1 tab PO Q12H #20 tabs 11/03 mg-trimethoprim 160 mg tablet (Bactrim DS) sulfamethoxazole 800 1 tab PO BID 5 days #10 tabs 11/08/24 mg-trimethoprim 160 mg tablet (Bactrim DS) Allergies Allergy/AdvReac Type Severity Reaction Status Date / Time nickel Allergy Mild Rash Verified 11/08/24 13:51 alprazolam (From Xanax) Allergy Agitated Verified 11/08/24 13:51 diazepam (From Valium) Allergy Agitated Verified 11/08/24 13:51 fluoxetine (From Prozac) Allergy Unknown Verified 11/08/24 13:51 allergy reaction [facility] Disclaimer: The information contained in this section may have been updated after the patient was seen, as this information can be updated by other users. 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) Trigger point Suicidal ideation Preoperative evaluation to rule out surgical contraindication Pain, wrist Acute exacerbation of chronic obstructive pulmonary disease Pulmonary emphysema Tobacco abuse counseling Tobacco abuse Smoking greater than 30 pack years COPD mixed type Tear of lateral meniscus of left knee Pes anserinus bursitis of left knee Chest pain Pain in wrist Epididymitis Acute exacerbation of chronic obstructive pulmonary disease Acute exacerbation of chronic obstructive pulmonary disease General weakness Abnormal x-ray of knee Left knee pain COPD exacerbation Encounter for medical assessment Trigger finger of right hand Popping of right knee joint Family history of cancer Encounter for screening colonoscopy Lesion of penis Right hand pain Orchalgia Laceration of ear lobe Elevated liver function tests Medial epicondylitis of left elbow Finger fracture, right UTI (urinary tract infection) Nausea & vomiting Throat pain in adult Trichomonas contact Abdominal pain Nausea Contusion of right elbow Nasal bone fracture Sinusitis Jaundice Bilateral shoulder pain Shoulder pain, left Hand fracture, right Hand pain, right Contusion Elbow contusion Sting, insect Chronic chest pain Superficial skin lesion Hemorrhoids Left wrist sprain Acute flank pain URI (upper respiratory infection) Left elbow pain Ankle pain Atypical chest pain Bursitis of left elbow Vomiting Rib pain on right side Seizure-like activity Acute exacerbation of chronic obstructive airways disease Acute and chronic respiratory failure with hypoxia Scalp abrasion Subtherapeutic serum dilantin level Pharyngitis Testicular pain, right Mid back pain Chest pain Chronic groin pain Otitis media Shortness of breath Encounter for medical assessment Acute bacterial sinusitis Pharyngitis Nasal polyp Influenza A Migraine HTN (hypertension), benign HLD (hyperlipidemia) Depression Asthma Anxiety Upper respiratory infection Pneumonia Schizophrenia Hepatitis B Seizure disorder Chronic obstructive pulmonary disease GERD (gastroesophageal reflux disease) 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 , 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) History of laparoscopic cholecystectomy History of nasal surgery H/O vasectomy History of arthroscopy of right shoulder History of arthroscopy of left shoulder H/O arthroscopy of right knee Family History , 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) Family history of seizures Cancer 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 , 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) Smoking Status: Current every day smoker tobacco type: cigarettes packs per day: 1 second hand exposure: No alcohol intake: never substance use type: former substance user, marijuana and methamphetamine current occupational status: disabled Travel in the last 8 weeks?: None household members: other housing: house number of children: 2 current occupational exposures/hazards: No caffeine: Yes Have you lived/traveled outside [place] in past 30 days?: No Contact w/someone who lives/traveled outside [place] past 30 days?: No Exposure to someone with infectious disease in past 14 days?: No Do you have a fever (greater than 100.4 F or 38 C)?: No Have you tested positive for COVID-19?: No Exposed to someone with COVID-19 in past 14 days?: No Do you have a sore throat?: No Do you have a cough?: No Do you have any weakness?: No Do you have any diarrhea?: No Are you experiencing any unusual bleeding?: No Do you have any muscle aches/pain?: No Do you have any abdominal pain?: No Are you experiencing loss of taste or smell?: No Other 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 Have you received the Flu Vaccine for this season: No Have you received the Pneumonia Vaccine: No ROS Obtained: Yes All systems reviewed & no additional complaints except as documented Physical Exam General General appearance: alert and in no apparent distress Head Head exam: atraumatic and normocephalic Eye Eye exam: Present PERRL and EOMI ENT ENT exam: Present mucous membranes moist Neck Neck exam: Present normal inspection Chest Chest inspection: Present normal inspection and symmetric chest wall rise Respiratory Respiratory exam: Present normal lung sounds bilaterally; Absent respiratory distress Cardiovascular Cardiovascular exam: Present regular rate and normal rhythm Abdominal Exam Abdominal exam: Present soft; Absent tenderness Extremities Exam Extremities exam: Present normal inspection Neurological Exam Neurological exam: Present alert and oriented X3 Psychiatric Psychiatric exam: Present normal affect Skin Skin exam: Present warm, dry and other (Erythematous area that is well- circumscribed, nonindurated, that appears to be a furuncle/active folliculitis to the patient's right axilla area, no evidence of any wound dehiscence, no active drainage,) Lymphatic Lymphatic Findings: R axilla node tender and other (I do believe that this right axilla node that is tender is a local lymphadenopathy from furuncle/foll iculitis) Medical Decision Making Medical Records Medical records reviewed: Yes I reviewed the patient's medical records. Screening: Per USPSTF and CDC recommendations, given the prevalence of disease in our region, it is our hospital?s policy to screen for HIV and viral Hepatitis for al l patients aged 18 and over and those with ongoing risk factors. Krishna Inquiry Pt receiving controlled substance: No Krishna was queried for this patient: No Vital Signs: 11/08/24 13:45 Temperature 98.1 F Temperature Source Oral Pulse Rate [Left] 88 Respiratory Rate 16 Blood Pressure [Right Arm] 110/81 Blood Pressure Mean [Right Arm] 90 Blood Pressure Source [Right Arm] Automatic Cuff Blood Pressure Position [Right Arm] Sitting 02 Sat by Pulse Oximetry 99 Oxygen Delivery Method Room Air Medical Decision Narrative: 54-year-old male presents to the emergency department with a swollen right axilla area for the last 4 days, differential diagnosis to include but not limited to, cellulitis, folliculitis, abscess, furuncle, carbuncle, epidermal inclusion cyst, lipoma among others. I discussed this patient's case with the attending physician Dr. Egan Patient's area is only 1 cm in size, does not have any active drainage, I do not think this area due to size and location would be amicable to incision and drainage at this time, patient appears to have some degree of folliculitis versus furuncle, no extending erythema, no true lymphadenopathy that is not localized to the area, no other lesions on the skin or body, patient has no systemic signs or symptoms, will prescribe the patient Bactrim DS twice daily for 5 days, patient to follow-up with PCP, recommend warm compresses, and watching for any extension of the lesion/redness. Patient voiced understanding and agreement with current treatment plan/discharge plan. Strict ED return precautions given. Critical Care Critical Care Time Critical Care Time: No
[2024-11-08 14:21] VITALS: BP 118/70; PULSE 84; RESP 20; TEMP 36.4; O2SAT 97
== END 2024-11-08 14:25 | disposition home or self-care (01) ==
PROVIDERS: Emergency Provider Emergency Medicine; PCP Family Medicine
DX: L02.429 Furuncle of limb, unspecified (principal)
CPT/HCPCS: 99283

== ENCOUNTER 2024-12-20 12:44 | Outpatient (CLI) | payer MEDICARE, MEDICAID, SELFPAY ==
[2024-12-20 17:08] LABS: Phenytoin (Dilantin) 8.2 ug/ml (10-20)
== END 2024-12-20 23:59 ==
LOC: LAB.DROPOF 12-21 09:42
PROVIDERS: PCP Family Medicine; Visit Provider Family Medicine
DX: Z51.81 Encounter for therapeutic drug level monitoring (principal)
CPT/HCPCS: 80185

== ENCOUNTER 2024-12-22 10:18 | Emergency (ER) | payer MEDICARE, MEDICAID, SELFPAY ==
[2024-12-22 10:25] VITALS: BP 125/88; PULSE 94; RESP 19; TEMP 36.6; O2SAT 98; BMI 27.7
--- NOTE | 2024-12-22 10:33 | ED_ITS ---
<Statement entered by Jacob Wu MD - 12/22/24 19:09> I was consulted by the AGUILAR, and we discussed the complexity of the problems being addressed. I approve the treatment and management plan for this patient's care in the emergency department, thus performing a substantive portion of the medical decision making. Jacob Wu MD Discharge Plan Disposition Patient Disposition: Home, Self-Care Condition: Good Prescriptions Prescriptions: No Action Wegovy 0.25 mg/0.5 mL pen injector 0.25 mg SQ Q7D Qty: 2 0RF duloxetine 60 mg capsule,delayed release(DR/EC) 60 mg PO DAILY Qty: 90 3RF esomeprazole magnesium 40 mg capsule,delayed release(DR/EC) See Rx Instructions .ROUTE .COMPLEX Qty: 90 2RF Dose Instruction: TAKE ONE CAPSULE BY MOUTH EVERY DAY FOR GERD Rx Instructions: TAKE ONE CAPSULE BY MOUTH EVERY DAY FOR GERD meloxicam 15 mg tablet See Rx Instructions .ROUTE .COMPLEX Qty: 90 2RF Dose Instruction: TAKE ONE TABLET BY MOUTH EVERY DAY --TAKE WITH FOOD-- Rx Instructions: TAKE ONE TABLET BY MOUTH EVERY DAY --TAKE WITH FOOD-- albuterol sulfate 90 mcg/actuation HFA aerosol inhaler See Rx Instructions .ROUTE .COMPLEX Qty: 8.5 6RF Dose Instruction: INHALE 4 puffs BY MOUTH EVERY 4 HOURS FOR 48 hours NEEDED SHORTNESS OF BREATH OR wheezing, THEN USE NEEDED Rx Instructions: INHALE 4 puffs BY MOUTH EVERY 4 HOURS FOR 48 hours NEEDED SHORTNESS OF BREATH OR wheezing, THEN USE NEEDED omega-3 fatty acids 1,000 mg capsule 2,000 mg PO DAILY Qty: 60 6RF cetirizine 10 mg tablet See Rx Instructions .ROUTE .COMPLEX Qty: 90 2RF Dose Instruction: TAKE ONE TABLET BY MOUTH EVERY DAY Rx Instructions: TAKE ONE TABLET BY MOUTH EVERY DAY azelastine 137 mcg (0.1 %) spray,non-aerosol See Rx Instructions .ROUTE .COMPLEX Qty: 30 5RF Dose Instruction: USE 1 SPRAY in each nostril twice daily as directed Rx Instructions: USE 1 SPRAY in each nostril twice daily as directed Trelegy Ellipta 100-62.5-25 mcg blister with device See Rx Instructions .ROUTE .COMPLEX Qty: 60 2RF Dose Instruction: INHALE 1 PUFF BY MOUTH EVERY DAY FOR copd Rx Instructions: INHALE 1 PUFF BY MOUTH EVERY DAY FOR copd phenytoin sodium extended 200 mg capsule 200 mg PO BID Qty: 60 2RF buspirone 10 mg tablet See Rx Instructions .ROUTE .COMPLEX Qty: 90 2RF Dose Instruction: TAKE ONE TABLET BY MOUTH THREE TIMES DAILY FOR ANXIETY Rx Instructions: TAKE ONE TABLET BY MOUTH THREE TIMES DAILY FOR ANXIETY fluticasone propionate 50 mcg/actuation spray,suspension See Rx Instructions .ROUTE .COMPLEX Qty: 48 3RF Dose Instruction: INSTILL ONE SPRAY IN EACH NOSTRIL EVERY DAY Rx Instructions: INSTILL ONE SPRAY IN EACH NOSTRIL EVERY DAY atorvastatin 40 mg tablet 40 mg PO HS Qty: 90 3RF olanzapine 5 mg tablet 5 mg PO BID Patient Comments: TAKE ONE TABLET BY MOUTH TWICE DAILY Referrals Follow up/Referrals: Christine Gonzalez APRN [Primary Care Provider, Family Practice] - See instructions Activity Restrictions/Add. Instructions Additional Instructions/Restrictions: Please return to the emergency department with any worsening signs or symptoms, I recommend [id number] cold and flu medications for symptomatic relief. Please follow-up with your PCP in the upcoming days, we will call you with results of your swabs if actionable. No news is good news. Clinical Impressions Clinical Impression: Sore throat (viral) Instructions Patient Instructions: DI for Viral Pharyngitis Print Language Print Language: Uzbek Discharge ED Provider: Jacob Wu Adult HPI General Chief complaint: Sore Throat Stated complaint: sore throat Time Seen by Provider: 12/22/24 10:33 Mode of Arrival: Ambulatory Source of Information: Patient Description of Symptoms (Recalled from ER Triage Doc. by RN): Patient presents to ED with c/o right sided sore throat that started this AM. Denies any additional symptoms. History of Present Illness HPI narrative: 54-year-old male presents to the emergency department with sore throat that is localized right sided, just darted this morning, he admits to cough that is productive and nonproductive at times, patient states is somewhat chronic for him, denies any fever chills, chest pain shortness of breath, no recent sick contacts, admits to some congestion/postnasal drip, denies any abdominal pain nausea vomiting constipation diarrhea no urinary type symptomatology, no hematuria melena hematochezia hematemesis, no true dysphagia, he is able to tolerate solids and liquids, does have some odynophagia with swallowing at times, patient denies any illicit drug use, does admit to current tobacco use and occasional alcohol use, other past medical history is consistent with COPD, GERD, schizophrenia, hyperlipidemia, 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 Please note that above description of symptoms, in this electronic medical record under categorization of recalled from ER triage doctor by RN are reflective of an initial nursing assessment, however, is not reflective of my full history and physical exam that was personally taken and clarified. Consequentially, this preceding description of symptoms, which may include the patient's categorized chief complaint in the EMR, do not reflect my personal clinical impression, and the ultimate description of history of present illness and patient stated complaints should be deferred to this section of the note. U nless stated otherwise or congruent with this section of the note, additional signs, symptoms, or incongruence should be interpreted as inaccurate with my clinical impression. Onset (ago): hour(s) Related Data Home Medications ?Medication ?Instructions ?Recorded ?Confirmed olanzapine 5 mg tablet 5 mg PO BID 03/25/24 5 Previous Rx's ?Medication ?Instructions ?Recorded duloxetine 60 mg capsule,delayed 60 mg PO DAILY #90 ca ps 04/20/24 release esomeprazole magnesium 40 mg See Rx Instructions .Rout e 05/20/24 capsule,delayed release .COMPLEX #90 caps albuterol sulfate 90 mcg/actuation See Rx Instructions .Route 07/14/24 aerosol inhaler .COMPLEX #8.5 grams meloxicam 15 mg tablet See Rx Instructions .Route 0 07/14/24 .COMPLEX #90 tabs omega-3 fatty acids 1,000 mg 2,000 mg (2 x 1,000 mg) P O DAILY 07/21/24 capsule #60 caps azelastine 137 mcg (0.1 %) nasal See Rx Instructions . Route 08/16/24 spray .COMPLEX #30 mL cetirizine 10 mg tablet See Rx Instructions .Route 0 08/16/24 .COMPLEX #90 tabs fluticasone fur. 100 mcg-umeclid See Rx Instructions . Route 09/20/24 62.5 mcg-vilant 25 mcg .COMPLEX #60 blisters inhalat.powder (Trelegy Ellipta) phenytoin sodium extended 200 mg 200 mg PO BID #60 cap s 11/15/24 capsule atorvastatin 40 mg tablet 40 mg PO HS #90 tabs 5 buspirone 10 mg tablet See Rx Instructions .Route 0 12/16/24 .COMPLEX #90 tabs fluticasone propionate 50 See Rx Instructions .Route 0 12/16/24 mcg/actuation nasal .COMPLEX #48 mL spray,suspension semaglutide (weight loss) 0.25 0.25 mg (0.5 mL) SQ Q7D #2 mL 12/20/24 mg/0.5 mL subcutaneous pen injector (Triductor) Allergies Allergy/AdvReac Type Severity Reaction Status Date / Time nickel Allergy Mild Rash Verified 12/20/24 11:48 alprazolam (From Xanax) Allergy Agitated Verified 12/20/24 11:48 diazepam (From Valium) Allergy Agitated Verified 12/20/24 11:48 fluoxetine (From Prozac) Allergy Unknown Verified 12/20/24 11:48 allergy reaction [facility] Disclaimer: The information contained in this section may have been updated after the patient was seen, as this information can be updated by other users. 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 Trigger point 2 discrete trigger points were noted in the paraspinal musculature at S1-S2. Th these did reproduce quite a bit of this patient's low back pain. Procedure note: Trigger point injection The area was cleansed using alcohol. Using semisterile technique a 5 cc syringe was filled with 0.5% preservative-free bupivacaine. Using a 27-gauge needle the needle was advanced into the trigger points. Upon beginning injection I asked the patient if this was the pain he was experiencing and he agreed. Both trigger points were injected left and right sides. The area was cleansed, good hemostasis was obtained, Band-Aids were placed and the patient was discharged to home. Suicidal ideation Preoperative evaluation to rule out surgical contraindication Pain, wrist Acute exacerbation of chronic obstructive pulmonary disease Pulmonary emphysema Tobacco abuse counseling Tobacco abuse Smoking greater than 30 pack years COPD mixed type Tear of lateral meniscus of left knee Pes anserinus bursitis of left knee Chest pain Pain in wrist Epididymitis Acute exacerbation of chronic obstructive pulmonary disease Acute exacerbation of chronic obstructive pulmonary disease General weakness Abnormal x-ray of knee Left knee pain COPD exacerbation Encounter for medical assessment Trigger finger of right hand Popping of right knee joint Family history of cancer Encounter for screening colonoscopy Lesion of penis Right hand pain Orchalgia Laceration of ear lobe Elevated liver function tests Medial epicondylitis of left elbow Finger fracture, right UTI (urinary tract infection) Nausea & vomiting Throat pain in adult Trichomonas contact Abdominal pain Nausea Contusion of right elbow Nasal bone fracture Sinusitis Jaundice Bilateral shoulder pain Shoulder pain, left Hand fracture, right Hand pain, right Contusion Elbow contusion Sting, insect Chronic chest pain Superficial skin lesion Hemorrhoids Left wrist sprain Acute flank pain URI (upper respiratory infection) Left elbow pain Ankle pain Atypical chest pain Bursitis of left elbow Vomiting Rib pain on right side Seizure-like activity Acute exacerbation of chronic obstructive airways disease Acute and chronic respiratory failure with hypoxia Scalp abrasion Subtherapeutic serum dilantin level Pharyngitis Testicular pain, right Mid back pain I would follow this for now. Chest pain Chronic groin pain Otitis media Shortness of breath Encounter for medical assessment Acute bacterial sinusitis Pharyngitis Nasal polyp Influenza A Migraine HTN (hypertension), benign HLD (hyperlipidemia) Depression Asthma Anxiety Upper respiratory infection Pneumonia Schizophrenia Hepatitis B Seizure disorder Chronic obstructive pulmonary disease We will follow this for now. He does have albuterol MDIs. GERD (gastroesophageal reflux disease) 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 History of laparoscopic cholecystectomy History of nasal surgery H/O vasectomy History of arthroscopy of right shoulder History of arthroscopy of left shoulder H/O arthroscopy of right knee Family History Other Cancer Family history of seizures 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 Smoking Status: Current every day smoker tobacco type: cigarettes packs per day: 1 second hand exposure: No alcohol intake: never substance use type: former substance user, marijuana and methamphetamine current occupational status: disabled Travel in the last 8 weeks?: None household members: other housing: house number of children: 2 current occupational exposures/hazards: No caffeine: Yes Have you lived/traveled outside [place] in past 30 days?: No Contact w/someone who lives/traveled outside [place] past 30 days?: No Exposure to someone with infectious disease in past 14 days?: No Do you have a fever (greater than 100.4 F or 38 C)?: No Have you tested positive for COVID-19?: No Exposed to someone with COVID-19 in past 14 days?: No Do you have a sore throat?: No Do you have a cough?: No Do you have any weakness?: No Do you have any diarrhea?: No Are you experiencing any unusual bleeding?: No Do you have any muscle aches/pain?: No Do you have any abdominal pain?: No Are you experiencing loss of taste or smell?: No Other 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 Have you received the Flu Vaccine for this season: No Have you received the Pneumonia Vaccine: No ROS Obtained: Yes All systems reviewed & no additional complaints except as documented Physical Exam General General appearance: alert and in no apparent distress Head Head exam: atraumatic and normocephalic Eye Eye exam: Present PERRL and EOMI ENT ENT exam: Present normal oropharynx, mucous membranes moist and other (There are some minimal posterior oropharyngeal erythema, no tonsillar exudates, uvula midline, no peritonsillar abscess formation, patient has 0 dentition) Neck Neck exam: Present normal inspection Chest Chest inspection: Present normal inspection and symmetric chest wall rise Respiratory Respiratory exam: Present normal lung sounds bilaterally; Absent respiratory distress Cardiovascular Cardiovascular exam: Present regular rate and normal rhythm Abdominal Exam Abdominal exam: Present soft; Absent tenderness Extremities Exam Extremities exam: Present normal inspection Neurological Exam Neurological exam: Present alert and oriented X3 Psychiatric Psychiatric exam: Present normal affect Skin Skin exam: Present warm and dry Lymphatic Lymphatic Findings: no adenopathy Medical Decision Making Medical Records Medical records reviewed: Yes I reviewed the patient's medical records. Screening: Per USPSTF and CDC recommendations, given the prevalence of disease in our region, it is our hospital?s policy to screen for HIV and viral Hepatitis for all patients aged 18 and over and those with ongoing risk factors. Krishna Inquiry Pt receiving controlled substance: No Krishna was queried for this patient: No Vital Signs: 12/22/24 10:25 12/22/24 11:09 Temperature 98 F Temperature Source Oral Pulse Rate 94 H Pulse Rate [Right] 94 H Respiratory Rate 19 Blood Pressure 127/85 Blood Pressure [Left Arm] 125/88 Blood Pressure Mean [Left Arm] 100 Blood Pressure Source Automatic Cuff Blood Pressure Source [Left Arm] Automatic Cuff Blood Pressure Position Sitting Blood Pressure Position [Left Arm] Sitting 02 Sat by Pulse Oximetry 98 99 Oxygen Delivery Method Room Air Room Air Lab Data Lab Results 12/22/24 11:00: Group A Strep Rapid Negative Orders (Tests/Meds): ORDERS Category Date Time Status Rapid PCR Covid and Flu A/B Stat Lab 12/22/24 11:00 Received Strep Scrn Group A (Rapid) Stat Lab 12/22/24 11:00 Completed Strep Screen Confirmation Stat Micro 12/22/24 11:00 Received Medical Decision Narrative: 54-year-old male presents the emergency department with a sore throat for less than 24 hours, differential diagnose include but not limited to, viral pharyngitis, acute sinusitis, streptococcal pharyngitis, URI, among others. I discussed this patient's case with attending physician Will obtain rapid PCR COVID and influenza, as well as streptococcal rapid antigen swab Group A rapid strep negative I discussed that result with the patient at the bedside, patient would not like to wait for his other rapid engine swabs, shared decision-making was utilized, I think this is appropriate, as would not change management lead if viral illness is present. Recommend [id number] cold and flu medications, patient had no anterior posterior cervical lymphadenopathy, no difficulty swallowing, no obvious neck mass, fever no chills, thought to be more viral illness, patient was given strict ED return precautions, will call patient with results if rapid engine swabs are actionable. Patient voiced understanding and agreement with the current treatment plan/discharge plan. Critical Care Critical Care Time Critical Care Time: No
--- OUTSIDE RECORDS SUMMARY | 2024-12-22 10:53 | XMS_ITS | Continuity of Care Document ---
Author Organization 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 [address] Germán Bradley MD Medication Refill 06/30/2018 Telephone [facility] [address] [place] [address] Dustin Mcintyre MD Other 06/02/2018 Orders Only [facility] [address] [place] [address] Radha Urbina CCMA Hepatitis A antibody positive (Primary Dx) 06/02/2018 Orders Only SEP [facility] [address] [place] [address] Oralia Cruz RMA Elevated liver function tests (Primary Dx) 06/01/2018 9:30 AM EST Office Visit [facility] [address] [place] [address] Dustin Mcintyre MD Left inguinal [...] Elevated liver function tests 04/13/2018 Refill [facility] [address] [place] [address] Germán Bradley MD Medication Refill 12/22/2017 Telephone [facility] [address] [place] [address] Dustin Mcintyre MD Other 12/05/2017 8:00 AM EDT Office Visit [facility] [address] [facility] [place] [address] Germán Bradley MD Other epilepsy [...] 100 07/22/2017 1:00 PM EDT Office Visit [facility] [address] [facility] [place] [address] Germán Bradley MD Other epilepsy without status epilepticus, not intractable (HCC) (Primary Dx); Impulse control disorder; COPD, mild (HCC); Recurrent major depressive disorder, in full remission; Chest wall pain; Rotator cuff syndrome of left shoulder; JB (generalized anxiety disorder); Closed nondisplaced fracture of distal phalanx of finger, unspecified finger, initial encounter 07/08/2017 Patient Outreach [facility] [address] [place] [address] Jennifer Mccain LPN Care Transition; Care Management - Chart Review; ED Follow-Up Call 07/07/2017 9:44 PM EDT - 07/07/2017 10:25 PM EDT Emergency [facility] [address] [place] [address] Robbie Queen MD Rotator cuff strain, left, initial encounter (Primary Dx) Discharge Disposition: Home or Self Care 05/26/2017 9:28 PM EST - 05/26/2017 10:28 PM EST Emergency [facility] [address] [place] [address] Radha Lopez MD Closed nondisplaced fracture of distal phalanx of right ring finger, initial encounter (Primary Dx); Multiple abrasions Discharge Disposition: Mcc 05/06/2017 2:00 PM EST Office Visit [facility] [address] [place] [address] Dustin Mcintyre MD Well adult exam (Primary Dx); Other epilepsy without status epilepticus, not intractable (HCC); COPD, mild (HCC); Gastroesophageal reflux disease without esophagitis; Restless leg syndrome; Hyperlipidemia with target LDL less than 100; Cigarette nicotine dependence without complication; Impulse control disorder; Recurrent major depressive disorder, in full remission; Generalized anxiety disorder 04/08/2017 Refill [facility] [address] [place] [address] Dustin Mcintyre MD Medication Refill 04/08/2017 Refill [facility] [address] [place] [address] Germán Bradley MD Medication Refill 04/08/2017 Telephone [facility] [address] [place] [address] Dustin Mcintyre MD Other 02/27/2017 3:00 PM EST Office Visit [facility] [address] [place] [address] Germán Bradley MD Epidermal inclusion cyst (Primary Dx); Acute bacterial sinusitis; Chronic seasonal allergic rhinitis due to pollen; Lumbar sprain, initial encounter; Generalized osteoarthritis of multiple sites 01/16/2017 Telephone [facility] [address] [place] [address] Norma Greenfield MA Advice Only 01/07/2017 3:21 PM EDT - 01/07/2017 11:59 PM EDT Hospital Encounter [facility] [place] [address] Other epilepsy without status epilepticus, not intractable (HCC); Hyperlipidemia with target LDL less than 100 Discharge Disposition: Home or Self Care 01/07/2017 Telephone [facility] [address] [facility] [place] [address] Nelda Fritz, INTEL RECRUITER Orders 01/07/2017 9:00 AM EDT Office Visit [facility] [address] [place] [address] Dustin Mcintyre MD Gastroesophageal reflux disease without esophagitis (Primary Dx); COPD, mild (HCC); Hyperlipidemia with target LDL less than 100; Generalized anxiety disorder; Acute pain of right knee; Right knee injury, initial encounter; Other epilepsy without status epilepticus, not intractable (HCC); Major depressive disorder, recurrent episode, mild; Chronic seasonal allergic rhinitis due to pollen 11/10/2016 Refill [facility] [address] [place] [address] Germán Bradley MD Medication Refill 10/21/2016 Refill [facility] [address] [place] [address] Nelda Fritz, INTEL RECRUITER Medication Refill 10/05/2016 Refill [facility] [address] [place] [address] Germán Bradley MD Medication Refill 08/18/2016 Refill [facility] [address] [place] [address] Germán Bradley MD Medication Refill 08/07/2016 1:30 PM EDT - 08/07/2016 11:59 PM EDT Hospital Encounter [facility] [address] [place] [address] Acute pain of right knee; Right knee injury, initial encounter Discharge Disposition: Home or Self Care 08/07/2016 1:15 PM EDT Office Visit [facility] [address] [place] [address] Dustin Mcintyre MD Acute pain of right knee (Primary Dx); Right knee injury, initial encounter 07/24/2016 Telephone [facility] [address] [place] [address] Dustin Mcintyre MD Other 06/21/2016 Telephone [facility] [address] [place] [address] Nelda Fritz CMA Prior Authorization (nexium needs a PA) 06/12/2016 Telephone [facility] [address] [place] [address] Dustin Mcintyre MD Other 06/11/2016 7:45 AM EST - 06/11/2016 8:00 AM EST Surgery [facility] [address] [place] [address] Wang Vieira MD CARPAL TUNNEL RELEASE BILATERAL 06/11/2016 6:41 AM EST - 06/11/2016 8:24 AM EST Hospital Encounter [facility] [address] [place] [address] Wang Vieira MD Discharge Disposition: Home or Self Care 05/16/2016 1:15 PM EST Office Visit [facility] [address] [address] Germán Bradley MD COPD, mild (HCC) (Primary Dx); Generalized anxiety disorder; Cigarette nicotine dependence without complication; Bilateral carpal tunnel syndrome 05/09/2016 Patient Outreach [facility] [address] [address] Margie Mo LPN Care Management - Chart Review (Chart Review) 05/08/2016 1:42 PM EST - 05/08/2016 11:59 PM EST Hospital Encounter [facility] [address] [place] [address] Emg, Kiko Edg Bilateral carpal tunnel syndrome (Primary Dx) Discharge Disposition: Home or Self Care 05/06/2016 10:05 AM EST - 05/06/2016 11:59 PM EST Hospital Encounter [facility] [address] [place] [address] COPD, mild (HCC) Discharge Disposition: Home or Self Care 04/29/2016 2:30 PM EST Office Visit [facility] [address] [place] [address] Germán Bradley MD Well adult exam (Primary Dx); COPD, mild (HCC); Need for pneumococcal vaccination 04/01/2016 7:27 PM EST - 04/01/2016 11:59 PM EST Hospital Encounter [facility] LAB [facility]ELV[facility] PROCESSING [facility] [place] [address] Memory loss; Hyperlipidemia with target LDL less than 100 Discharge Disposition: Home or Self Care 04/01/2016 Orders Only [facility] [address] [place] [address] Kinjal Bustillo RMA Gastroesophageal reflux disease without esophagitis (Primary Dx) 04/01/2016 2:30 PM EST Office Visit [facility] [address] [place] [address] Germán Bradley MD Need for influenza vaccination (Primary Dx); Generalized anxiety disorder; Hyperlipidemia with target LDL less than 100; Seasonal allergic rhinitis, unspecified allergic rhinitis trigger; Other epilepsy without status epilepticus, not intractable ([facility]); Restless leg syndrome; Major depressive disorder, recurrent episode, mild; Gastroesophageal reflux disease without esophagitis; COPD, mild ([facility]); Memory loss 02/20/2016 Refill [facility] [address] [facility] [place] [address] Germán Bradley MD Medication Refill 12/28/2015 Refill [facility] [address] [facility] [place] [address] Nelda Fritz CMA Medication Refill 11/30/2015 Patient Outreach [address] [address] Елена Alvares RMA ED Follow-up 11/28/2015 Patient Outreach [address] [address] Margie Mo LPN Care Management - Chart Review (Chart Review-Patient discharged from ED 11/27/2015) 11/27/2015 5:23 PM EDT - 11/27/2015 6:28 PM EDT [facility] [address] [place] [address] Michelle Shirley MD Right-sided low back pain without sciatica (Primary Dx) Discharge Disposition: Home or Self Care 11/21/2015 Patient Outreach [address] [address] Margie Mo LPN Care Management - Chart Review (Chart Review-Patient discharged from ED 11/20/2015) 11/20/2015 Refill SEP [address] [address] Germán Bradley MD Medication Refill 11/20/2015 3:28 PM EDT - 11/20/2015 4:01 PM EDT [facility] [address] [place] [address] Devora Lindsey MD Fall, initial encounter (Primary Dx); Cervical strain, initial encounter; Abrasions of multiple sites; Right shoulder strain, initial encounter Discharge Disposition: Home or Self Care 11/16/2015 8:07 PM EDT - 11/16/2015 11:59 PM EDT Hospital Encounter [facility] LAB [facility]ELVIN PROCESSING [facility] [place] [address] Other epilepsy without status epilepticus, not intractable (HCC); Hyperlipidemia with target LDL less than 100 Discharge Disposition: Home or Self Care 11/16/2015 Telephone [facility] [address] [place] [address] Nelda Fritz CMA Prior Authorization ([email or web address] needs a PA) 11/16/2015 3:00 PM EDT Office Visit [address] [place] [address] Germán Bradley MD Chronic obstructive pulmonary disease with acute exacerbation (HCC) (Primary Dx); Hyperlipidemia with target LDL less than 100; Generalized anxiety disorder; Restless leg syndrome; Major depressive disorder, recurrent episode, mild; Other epilepsy without status epilepticus, not intractable (HCC); Gastroesophageal reflux disease without esophagitis; Seasonal allergies; Acute bacterial sinusitis 10/21/2015 Refill [facility] [address] [place] [address] Germán Bradley MD Medication Refill 10/21/2015 Refill [facility] [address] [facility] [place] [address] Dustin Mcintyre MD Medication Refill 09/21/2015 Refill [facility] [address] [place] [address] Dustin Mcintyre MD Medication Refill 09/15/2015 Telephone [facility] [address] [place] [address] Germán Bradley MD Other 09/04/2015 Telephone [facility] [address] [place] [address] Nelda Fritz CMA Referral 08/23/2015 Refill [facility] [address] [place] [address] Germán Bradley MD Medication Refill 08/22/2015 Telephone [facility] [address] [place] [address] Germán Bradley MD Other 08/17/2015 Telephone [facility] [address] [place] [address] Germán Bradley MD Letter for School/Work 08/08/[address] [place] [address] Nelda Fritz [facility] Prior Authorization (atarax needs a PA) 08/07/2015 Refill [facility] [address] [place] [address] Germán Bradley MD Medication Refill 07/20/2015 Refill [facility] [address] [place] [address] Germán Bradley MD Medication Refill 07/05/2015 Refill [facility] [address] [place] [address] Dustin Mcintyre MD Medication Refill 06/26/2015 Refill [facility] [address] [place] [address] Germán Bradley MD Medication Refill 06/26/2015 Patient Outreach [facility] [address] [place] [address] Елена Alvares RMA ED Follow-up 06/26/2015 Patient Outreach [facility] [address] [place] [address] Margie Mo LPN Care Management - Chart Review (Discharged from ED 06/23/2015 Chart Reviewed) 06/23/2015 4:34 PM EST - 06/23/2015 6:22 PM EST Emergency [facility] [address] [place] [address] Elina Hall MD Pain of left lower extremity (Primary Dx) Discharge Disposition: Home or Self Care 06/20/2015 8:30 AM EST - 06/20/2015 9:30 AM EST Surgery [facility] [place] [place] [address] Crow Love MD SHOULDER ARTHROSCOPY SUBACROMIAL DECOMPRESSION /FULL MILLY 06/20/2015 7:52 AM EST Anesthesia Event [facility] [place] [place] [address] Jerson Can DO Mucenski, Cathleen M, MD 06/20/2015 6:32 AM EST - 06/20/2015 10:47 AM EST Hospital Encounter [facility] [place] [place] [address] Crow Love MD Discharge Disposition: Home or Self Care 05/10/2015 Refill [facility] [address] [place] [address] Dustin Mcintyre MD Medication Refill 2015 10:00 AM EST Office Visit [facility] [address] [place] [address] Germán Bradley MD Well adult (Primary Dx); Cigarette nicotine dependence without complication 04/20/2015 3:26 PM EST - 04/20/2015 11:59 PM EST Hospital Encounter [facility]ELVIN PROCESSING [facility] [place] [address] Other epilepsy without status epilepticus, not intractable (HCC); Hyperlipidemia with target LDL less than 100 Discharge Disposition: Home or Self Care 04/20/2015 Telephone [facility] [address] [place] [address] MaynorarturoЕлена MARYANNESabine Anxiety 04/20/2015 9:30 AM EST Office Visit [facility] [address] [place] [address] Germán Bradley MD Chronic obstructive pulmonary disease with acute exacerbation (HCC) (Primary Dx); Generalized anxiety disorder; Gastroesophageal reflux disease without esophagitis; Restless leg syndrome; Hyperlipidemia with target LDL less than 100; Major depressive disorder, recurrent episode, mild; Other epilepsy without status epilepticus, not intractable (HCC); Impingement syndrome, shoulder, right 04/12/2015 Refill [facility] [address] [place] [address] Dustin Mcintyre MD Medication Refill 04/11/2015 Refill [facility] [address] [place] [address] Dustin Mcintyre MD Medication Refill 04/11/2015 Refill [facility] [address] [place] [address] Dustin Mcintyre MD Medication Refill 03/30/2015 11:00 AM EST Office Visit [facility] [address] [place] [address] Germán Bradley MD Shoulder tendonitis, right (Primary Dx); Primary osteoarthritis of right shoulder 03/23/2015 Orders Only [facility] Neu[facility] [address] [place] [place] [address] Tu Rivera MD Seizure disorder (HCC) (Primary Dx) 03/22/2015 11:10 AM EST - 03/22/2015 11:59 PM [facility] Hospital Encounter [facility] [address] [place] [address] Dustin Mcintyre MD Right shoulder pain Discharge Disposition: Home or Self Care 03/21/2015 Orders Only [facility] [address] [place] [address] Елена Alvares RMA Chronic obstructive pulmonary disease with acute exacerbation (HCC) (Primary Dx); Generalized anxiety disorder 03/20/2015 Refill [facility] [address] [place] [address] Dustin Mcintyre MD Medication Refill 03/17/2015 10:15 AM EST Office Visit [facility] [address] [place] [address] Dustin Mcintyre MD Right shoulder pain (Primary Dx) 02/24/2015 11:00 AM EST Office Visit [facility] [address] [place] [address] Dustin Mcintyre MD Generalized anxiety disorder (Primary Dx); Trapezius strain, unspecified laterality, initial encounter; Medial epicondylitis of elbow, right 01/24/2015 Refill [facility] [address] [place] [address] Dustin Mcintyre MD Medication Refill 01/24/2015 Refill [facility] [address] [place] [address] Nelda Fritz, INTEL RECRUITER Medication Refill 01/23/2015 Refill [facility] [address] [place] [address] Nelda Fritz Veronica, INTEL RECRUITER Medication Refill 12/21/2014 Refill [facility] [address] [place] [address] Dustin Mcintyre MD Medication Refill 11/04/2014 3:00 PM EDT - 11/04/2014 11:59 PM EDT Hospital Encounter [facility] LAB KELVIN PROCESSING [facility] [place] [address] Other epilepsy without status epilepticus, not intractable ([facility]); Hyperlipidemia LDL goal < 100 Discharge Disposition: Home or Self Care 11/04/2014 9:15 AM EDT Office Visit [address] [place] [address] Dustin Mcintyre MD Generalized anxiety disorder (Primary Dx); Asthma, unspecified asthma severity, uncomplicated; COPD (chronic obstructive pulmonary disease) ([facility]); Restless leg syndrome; Gastroesophageal reflux disease without esophagitis; Other epilepsy without status epilepticus, not intractable ([facility]); Hyperlipidemia LDL goal < 100 11/01/[address] [place] [address] Dustin Mcintyre MD Medication Refill 11/01/[address] [place] [address] Dustin Mcintyre MD Medication Refill 10/31/[address] [place] [address] Dustin Mcintyre MD Medication Refill 10/14/2014 Refill [facility] [address] [place] [address] Dustin Mcintyre MD Medication Refill 08/29/[address] [place] [address] Nelda Fritz CMA Medication Management (atrarax needs a pa) 08/10/[address] [place] [address] Nelda Fritz CMA Medication Management (hyrdoxyzine needs a PA) 07/13/[address] [place] [address] Nelda Fritz CMA Medication Problem 07/08/2014 9:28 AM EDT - 07/08/2014 11:59 PM EDT Hospital Encounter [facility] Physical Therapy [address] [place] [address] Shanice Ybarra, PT Discharge Disposition: Home or Self Care 07/01/2014 10:04 AM EDT - 07/01/2014 11:59 PM EDT Hospital Encounter [facility] Physical Therapy [address] [place] [address] Shanice Ybarra, PT Discharge Disposition: Home or Self Care 06/28/2014 9:27 AM EDT - 06/28/2014 11:59 PM EDT Hospital Encounter [facility] Physical Therapy [address] [place] [address] Margarita Doran, PT Discharge Disposition: Home or Self Care 06/21/2014 8:15 AM EDT - 06/21/2014 8:45 AM EDT Surgery [facility] [place] [address] Crow Love MD KNEE ARTHROSCOPY MENISCECTOMY/REPAIR (ALSO COVERS ARTHROSCOPIC INCISION AND DRAINAGE/DEBRIDEMENT) 06/21/2014 7:50 AM EDT Anesthesia Event [facility] [place] [address] Artem Naqvi MD Brannon, Daniel Todd, DO 06/21/2014 6:35 AM EDT - 06/21/2014 10:32 AM EDT Hospital Encounter [facility] [place] [address] [address] [place] [address] Crow Love MD Discharge Disposition: Home or Self Care 06/08/2014 10:30 AM EST Office Visit [facility] [address] [place] [address] Dustin Mcintyre MD Pre-op exam (Primary Dx); Arthritis of knee; Folliculitis; Epilepsy (HCC); Restless leg syndrome; BJ (generalized anxiety disorder); Hearing loss in left ear; GERD (gastroesophageal reflux disease) 05/25/2014 Telephone [facility] [address] [place] [address] Dustin Mcintyre MD Results 05/21/2014 Refill [facility] [address] [place] [place] [address] Dustin Mcintyre MD Medication Refill 05/20/2014 7:41 PM EST - 05/20/2014 11:59 PM EST Hospital Encounter [facility] PROCESSING [facility] [place] [address] Hypernatremia; Pre-op testing Discharge Disposition: Home or Self Care 05/20/2014 Orders Only [facility] [address] [place] [address] Lay Minor MD Hypernatremia (Primary Dx); Pre-op testing 05/20/2014 11:00 AM EST Office Visit [facility] [address] [facility] [address] [place] [address] Dustin Mcintyre MD Bronchitis (Primary Dx); COPD exacerbation (HCC); Asthma exacerbation, moderate persistent; Chest wall pain; Vomiting; Hypernatremia 05/19/2014 Patient Outreach [facility] [address] [facility] [address] [facility] [place] [address] Nasrin Perry, cuff cutter (ED f/u call ) 05/18/2014 11:12 AM EST - 05/18/2014 12:37 PM EST [facility] [address] [facility] [place] [address] Mariaelena Rossi MD Acute bronchitis (Primary Dx); Acute sinusitis; COPD (chronic obstructive pulmonary disease) (HCC) Discharge Disposition: Home or Self Care 2014 7:57 PM EST - 2014 11:59 PM EST Hospital Encounter [facility] KELVIN PROCESSING [facility] [place] [address] Healthcare maintenance; Epilepsy (HCC) Discharge Disposition: Home or Self Care 2014 10:00 AM EST Office Visit [facility] [address] [address] [facility] [place] [address] Dustin Mcintyre MD Epilepsy ([facility]) (Primary Dx); Generalized anxiety disorder; Hyperlipidemia LDL goal < 100; Restless leg syndrome; GERD (gastroesophageal reflux disease); Healthcare maintenance; COPD (chronic obstructive pulmonary disease) ([facility]) 04/01/2014 Telephone [facility] [address] [place] [address] Dustin Mcintyre MD Results 03/23/2014 11:00 AM EST Office Visit [facility] [address] [place] [address] Wheezing; SOB (shortness of breath) Discharge Disposition: Home or Self Care 03/18/2014 10:45 AM EST Office Visit [facility] [address] [place] [address] Dustin Mcintyre MD Wheezing (Primary Dx); SOB (shortness of breath) 03/17/2014 Telephone [facility] [address] [place] [address] Nelda Fritz CMA Medication Management (protonix bid needs a PA) 03/14/2014 Telephone [facility] [address] [place] [address] Dustin Mcintyre MD Medication Refill 03/08/2014 Telephone [facility] [address] [place] [address] Dustin Mcintyre MD Other 03/08/2014 11:20 AM EST - 03/08/2014 11:59 PM EST Hospital Encounter [facility] [address] [place] [address] Allergic rhinitis, cause unspecified (Primary Dx); Epilepsy ([facility]); Hearing loss in left ear; GERD (gastroesophageal reflux disease); JB (generalized anxiety disorder); FHx: prostate cancer; FHx: lung cancer; Nicotine dependence; Restless leg syndrome Discharge Disposition: Home or Self Care 03/08/2014 10:45 AM EST Office Visit [facility] [address] [place] [address] Dustin Mcintyre MD Hyperlipidemia LDL goal < 100 (Primary Dx); GERD (gastroesophageal reflux disease); Asthma, unspecified asthma severity, uncomplicated; Epilepsy (HCC); Generalized anxiety disorder; Restless leg syndrome 02/12/2014 Refill [facility] [address] [place] [address] Dustin Mcintyre MD Medication Refill 02/04/2014 8:00 AM EDT - 02/04/2014 9:52 AM EDT Surgery [facility] [address] [place] [address] Los Gordon MD FUNCTIONAL ENDOSCOPIC SINUS SURGERY/SINOSCOPY 02/04/2014 6:27 AM EDT - 02/04/2014 11:53 AM EDT Hospital Encounter [facility] SAME DAY SURGERY [address] [place] [address] Los Gordon MD Discharge Disposition: Home or Self Care 02/02/2014 11:00 AM EDT - 02/02/2014 11:59 PM EDT Hospital Encounter [facility] PRE-ADMIT TESTING [address] [place] [address] Pat, Clarice Discharge Disposition: Home or Self Care 01/24/2014 11:29 AM EDT - 01/24/2014 11:59 PM EDT Hospital Encounter [facility] [address] [place] [address] Esophageal reflux (Primary Dx); Dyspepsia and other specified disorders of function of stomach; Dysphagia, unspecified(787.20) Discharge Disposition: Home or Self Care 11/19/2013 10:30 AM EDT Office Visit [facility] [address] [place] [address] Dustin Mcintyre MD Laceration of wrist, left, subsequent encounter (Primary Dx) 11/13/2013 Refill SEP [facility] [address] [place] [address] Marcela Ding MD Medication Refill 11/12/2013 6:42 PM EDT - 11/12/2013 7:45 PM EDT Emergency [facility] [address] [facility] [place] [address] Jerson Go MD Wrist laceration, left, initial encounter (Primary Dx) Discharge Disposition: Home or Self Care 11/03/[address] [place] [address] Chyna Mcgraw MA Referral (ORTHO) 11/01/2013 Orders Only [address] [place] [address] Marcela Ding MD Knee pain, right (Primary Dx) 11/01/2013 8:55 AM EDT - 11/01/2013 11:59 PM EDT Hospital Encounter [facility] [address] [place] [address] Dustin Mcintyre MD Right knee pain; Recurrent right knee instability Discharge Disposition: Home or Self Care 10/29/[address] [place] [address] Dustin Mcintyre MD Other 10/28/[address] [address] Dustin Mcintyre MD Referral 10/25/2013 4:43 PM EDT - 10/25/2013 11:59 PM EDT Hospital Encounter [facility] [place] [address] Hyperlipidemia LDL goal < 100 (Primary Dx); Epilepsy (HCC); Screening PSA (prostate specific antigen); Family history of prostate cancer; FHx: prostate cancer; Other nonspecific abnormal serum enzyme levels Discharge Disposition: Home or Self Care 10/25/[address] [place] [address] Nelda Fritz CMA Medication Management (Nexium bid dosing needs a PA) 10/25/2013 10:30 AM EDT Office Visit [facility] [address] [place] [address] Dustin Mcintyre MD Epilepsy ([facility]) (Primary Dx); Asthma, unspecified asthma severity, uncomplicated; Generalized anxiety disorder; JB (generalized anxiety disorder); GERD (gastroesophageal reflux disease); Family history of prostate cancer; Hyperlipidemia LDL goal < 100; FHx: prostate cancer; Hearing loss in left ear; Restless leg syndrome; Right knee pain; Recurrent right knee instability; Screening PSA (prostate specific antigen) 10/18/2013 Refill [facility] [address] [place] [address] Germán Bradley MD Medication Refill 10/13/2013 10:00 AM EDT Office Visit [facility] Neurology [facility] [address] [place] [place] [address] Tu Rivera MD Epilepsy ([facility]) (Primary Dx); Hearing loss in left ear; Nicotine dependence; Restless leg syndrome 09/10/2013 Refill [facility] [address] [place] [address] Germán Bradley MD Medication Refill 08/30/2013 Refill [facility] [address] [place] [address] Nelda Fritz, INTEL RECRUITER Medication Refill 08/26/2013 Telephone [facility] [address] [place] [address] Nelda Fritz, INTEL RECRUITER Referral 08/26/2013 Refill [facility] [address] [place] [address] Germán Bradley MD Medication Refill 08/26/2013 11:20 AM EDT - 08/26/2013 11:59 PM EDT Hospital Encounter [facility] Physical [facility] [address] [place] [address] Yvrose Palma, PT Discharge Disposition: Home or Self Care 08/17/2013 1:17 PM EDT - 08/17/2013 11:59 PM EDT Hospital Encounter [facility] Physical [facility] [address] [place] [address] Yvrose Palma, PT Discharge Disposition: Home or Self Care 08/16/2013 Refill [facility] [address] [place] [address] Germán Bradley MD Medication Refill 08/16/2013 Refill [facility] [address] [place] [address] Dustin Mcintyre MD Medication Refill 08/12/2013 Refill [facility] [address] [place] [address] Marcela Ding MD Medication Refill 08/12/2013 Refill [facility] [address] [place] [address] Germán Bradley MD Medication Refill 08/12/2013 Refill [facility] [address] [place] [address] Dustin Mcintyre MD Medication Refill 07/27/2013 Telephone [facility] [address] [place] [address] Nelda Fritz CMA Medication Refill 07/23/2013 8:30 AM EDT - 07/23/2013 11:59 PM EDT Hospital Encounter [facility] [address] [place] [address] Los Gordon MD Sensorineural hearing loss, asymmetrical; Abnormal auditory perception, unspecified Discharge Disposition: Home or Self Care 07/07/2013 Refill [facility] [address] [place] [address] Nelda Fritz CMA Medication Refill 06/29/2013 2:00 PM EDT - 06/29/2013 11:59 PM EDT Hospital Encounter [facility] [address] [place] [address] Mag Becerra [employer]-HOUSE FELLOW Discharge Disposition: Home or Self Care 06/25/2013 Refill [facility] [address] [place] [address] Dustin Mcintyre MD Medication Refill 06/01/2013 Telephone [facility] [address] [place] [address] Germán Bradley MD Labs Only 05/31/2013 4:54 PM EST - 05/31/2013 11:59 PM EST Hospital Encounter [facility] [place] [address] Well adult exam; Epilepsy (HCC) Discharge Disposition: Home or Self Care 05/31/2013 10:00 AM EST - 05/31/2013 4:53 PM EST Hospital Encounter [facility] [address] [place] [address] COPD (chronic obstructive pulmonary disease) (HCC); FHx: lung cancer; Cough Discharge Disposition: Home or Self Care 05/31/2013 9:15 AM EST Office Visit [facility] [address] [place] [address] Germán Bradley MD Well adult exam (Primary Dx); COPD (chronic obstructive pulmonary disease) (HCC); Epilepsy (HCC); GERD (gastroesophageal reflux disease); JB (generalized anxiety disorder); Atypical moles; FHx: prostate cancer; FHx: lung cancer; Cough; Tobacco abuse 05/26/2013 Telephone [facility] [address] [place] [address] Dustin Mcintyre MD Epistaxis 05/24/2013 Refill [facility] [address] [place] [address] Germán Bradley MD Medication Refill 05/21/2013 Refill [facility] [address] [place] [address] Dustin Mcintyre MD Medication Refill 05/21/2013 Refill [facility] [address] [place] [address] Germán Bradley MD Medication Refill 05/03/[address] [place] [address] Catrina Nelda Veronica [facility] Medication Refill 04/29/2013 10:15 AM EST Office Visit [facility] [address] [place] [address] Germán Bradley MD JB (generalized anxiety disorder) (Primary Dx); Back strain 04/15/[address] [place] [address] Marcela Ding MD Medication Refill 04/15/[address] [place] [address] Germán Bradley MD Medication Refill 03/24/[address] [place] [address] Veronica Freed MA Anxiety 03/16/[address] [place] [address] Chyna Mcgraw MA Referral (ORTHO) 03/15/2013 1:00 PM EST Office Visit [facility] [address] [place] [address] Dustin Mcintyre MD Arthralgia of shoulder region, right (Primary Dx); Arthritis of elbow, right; GERD (gastroesophageal reflux disease); RLS (restless legs syndrome); Epilepsy (HCC); Bipolar affective disorder (HCC); Generalized anxiety disorder; Asthma 03/14/2013 Refill [facility] [place] [address] [place] [address] Germán Bradley MD Medication Refill 03/05/2013 Telephone [place] [address] [place] [address] Dustin Mcintyre MD Medication Change 03/02/2013 2:15 PM EST Office Visit [place] [address] [place] [address] Dustin Mcintyre MD Shoulder pain (Primary Dx) 03/02/2013 1:27 PM EST - 03/02/2013 11:59 PM [facility] Hospital Encounter [place] [address] [place] [address] Kathy Wasserman, PT Discharge Disposition: Home or Self Care 03/01/2013 Refill [facility] [place] [address] [place] [address] Germán Bradley MD Medication Refill 03/01/2013 Refill [facility] [place] [address] [place] [address] Dustin Mcintyre MD Medication Refill 03/01/2013 Refill [facility] [place] [address] [place] [address] Marcela Ding MD Medication Refill 02/27/2013 Telephone [place] [address] [place] [address] Germán Bradley MD Other 02/26/2013 10:07 AM EST - 02/26/2013 11:59 PM EST Hospital Encounter [place] [address] [place] [address] Kathy Wasserman, PT Discharge Disposition: Home or Self Care 02/18/2013 12:51 PM EST - 02/18/2013 11:59 PM EST Hospital Encounter [place] [address] [place] [address] Kathy Wasserman, PT Discharge Disposition: Home or Self Care 02/12/2013 Refill [facility] [place] [address] [place] [address] Dustin Mcintyre MD Medication Refill 02/10/2013 9:06 AM EDT - 02/10/2013 11:59 PM EDT Hospital Encounter [address] [place] [address] Kathy Wasserman, PT Discharge Disposition: Home or Self Care 02/05/2013 12:26 PM EDT - 02/05/2013 11:59 PM EDT Hospital Encounter [address] [place] [address] Kathy Wasserman, PT Discharge Disposition: Home or Self Care 02/01/2013 Refill [facility] [address] [place] [address] Marcela Ding MD Medication Refill 01/29/2013 Telephone [facility] [address] [place] [address] Germán Bradley MD Medication Refill 01/18/2013 8:30 AM EDT - 01/18/2013 9:30 AM EDT Surgery [facility] [address] [place] [address] Crow Love MD SHOULDER ARTHROSCOPY LABRAL/BANKART/ BICEP TENODESIS (COVERS SUPERIOR LABRAL ANTERIOR POSTERIOR REPAIR/SLAP) 01/18/2013 5:21 AM EDT - 01/18/2013 12:50 PM EDT Hospital Encounter [facility] SAME DAY SURGERY [address] [place] [address] Crow Love MD Discharge Disposition: Home or Self Care 01/14/2013 Telephone [facility]P [address] [address] Germán Bradley MD Medication Reaction 01/08/2013 2:00 PM EDT Office Visit [facility] [address] [place] [address] Germán Bradley MD Infected inclusion cyst (Primary Dx); RLS (restless legs syndrome) 12/25/2012 12:38 PM EDT - 12/25/2012 11:59 PM EDT Hospital Encounter [facility] [address] [place] [address] Germán Bradley MD Rotator cuff syndrome of left shoulder Discharge Disposition: Home or Self Care 12/20/2012 9:52 AM EDT - 12/20/2012 11:16 AM EDT Emergency [facility] [place] [address] Pnio Maxwell MD Foot sprain (Primary Dx) Discharge Disposition: Home or Self Care 12/16/2012 1:45 PM EDT Office Visit [facility] [address] [place] [address] Germán Bradley MD Rotator cuff syndrome of left shoulder (Primary Dx); Need for influenza vaccination 12/15/2012 Telephone [facility] [address] [place] [address] Germán Bradley MD Referral 12/11/[address] [place] [address] Marcela Ding MD Medication Refill 12/11/2012 Refill [facility] [address] [place] [address] Germán Bradley MD Medication Refill 12/02/2012 11:17 AM EDT - 12/02/2012 11:59 PM EDT Hospital Encounter [facility] Physical Therapy [facility] [address] [place] [address] Chyna Mathis, [place] Discharge Disposition: Home or Self Care 12/02/2012 10:00 AM EDT Office Visit [facility] [address] [place] [address] Germán Bradley MD Seborrhea (Primary Dx); Cervical lymphadenitis 11/19/2012 Refill [facility] [address] [place] [address] Germán Bradley MD Medication Refill 11/18/2012 10:41 AM EDT - 11/18/2012 11:59 PM EDT Hospital Encounter [facility] Physical Therapy [facility] [address] [place] [id number] Shaince Ybarra PT Rotator cuff syndrome (Primary Dx) Discharge Disposition: Home or Self Care 11/09/2012 12:11 PM EDT - 11/09/2012 11:59 PM EDT Hospital Encounter [facility] [address] [place] [address] Scoliosis; Back pain Discharge Disposition: Home or Self Care 11/09/2012 11:30 AM EDT Office Visit [facility] [address] [place] [address] Germán Bradley MD Rotator cuff syndrome Bilateral (Primary Dx) 11/05/2012 [address] [place] [address] Germán Bradley MD Back Pain 11/03/2012 Telephone [address] [place] [address] Nelda Fritz CMA Back Pain 11/02/2012 5:12 PM EDT - 11/02/2012 11:59 PM EDT Hospital Encounter [facility] [place] [address] Epilepsy (HCC) Discharge Disposition: Home or Self Care 11/02/2012 9:00 AM EDT Office Visit [facility] [address] [place] [address] Germán Bradley MD LBP (low back pain) (Primary Dx); Neck pain; Shoulder pain; JB (generalized anxiety disorder); Epilepsy (HCC) 10/31/2012 Refill [facility] [address] [place] [address] Nelda Fritz CMA Medication Refill 10/26/2012 Refill [facility] [place] [address] [place] [address] Germán Bradley MD Medication Refill 10/20/2012 Telephone [facility] [address] [place] [address] Dustin Mcintyre MD Other 10/14/2012 Telephone [facility] [place] [address] [place] [address] Dustin Mcintyre MD Medication Refill; Medication Change 10/09/2012 5:34 PM EDT - 10/09/2012 11:59 PM EDT Hospital Encounter [facility] [address] Epilepsy ([facility]); Generalized anxiety disorder Discharge Disposition: Home or Self Care 10/09/2012 Telephone [place] [address] [address] Norma Greenfield MA Medication Change 10/09/2012 8:30 AM EDT Office Visit [place] [address] [place] [address] Dustin Mcintyre MD Epilepsy (HCC) (Primary Dx); GERD (gastroesophageal reflux disease); Asthma; Bipolar affective disorder (HCC); Generalized anxiety disorder; ED (erectile dysfunction) 06/20/2012 Refill [facility] [place] [address] [place] [address] Marcela Ding MD Medication Refill 05/01/2012 1:57 PM EST - 05/01/2012 11:59 PM EST Hospital Encounter [facility] Physical Therapy [facility] [address] [address] Kathy Wasserman, PT Discharge Disposition: Home or Self Care 04/24/2012 1:47 PM EST - 04/24/2012 11:59 PM EST Hospital Encounter [facility] [address] [place] [address] Kathy Wasserman, PT Discharge Disposition: Home or Self Care 04/17/2012 1:01 PM EST - 04/17/2012 11:59 PM EST Hospital Encounter [facility] [address] [place] [address] Kathy Wasserman, PT Discharge Disposition: Home or Self Care 04/16/2012 Refill [facility] [address] [place] [address] Marcela Ding MD Medication Refill 04/05/2012 5:08 PM EST - 04/05/2012 6:19 PM EST Emergency [facility] [address] [place] [address] Roshan Sanchez MD Chronic knee pain (Primary Dx) Discharge Disposition: Home or Self Care 03/09/2012 Refill [facility] [address] [place] [address] Marcela Ding MD Medication Refill 03/03/2012 Refill SEP [address] [address] Marcela Ding MD Medication Refill 02/28/2012 8:15 PM EST - 02/28/2012 11:59 PM EST Hospital Encounter [facility] [place] [address] Epilepsy (HCC); Bipolar affective disorder (HCC); Abdominal pain Discharge Disposition: Home or Self Care 02/28/2012 10:20 AM EST Office Visit [facility] [address] [place] [address] Germán Bradley MD Epilepsy (HCC); Abdominal pain; Bipolar affective disorder (HCC); Asthma; Knee pain, left 01/17/2012 Telephone [facility] [address] [place] [address] Marcela Ding MD Medication Refill 12/21/2011 Refill [facility] [address] [place] [address] Germán Bradley MD Medication Refill 12/02/2011 7:06 PM EDT - 12/02/2011 11:59 PM EDT Hospital Encounter [facility] [place] [address] Bipolar affective disorder (HCC); Encounter for long-term (current) use of medications Discharge Disposition: Home or Self Care 12/02/2011 10:20 AM EDT Office Visit [facility] [address] [place] [address] Dustin Mcintyre MD Knee pain, left (Primary Dx); Epilepsy (HCC); Bipolar affective disorder (HCC); Asthma; COPD (chronic obstructive pulmonary disease) (HCC); Anxiety; Encounter for long-term (current) use of medications 10/31/2011 Refill [place] [address] [place] [address] Germán Bradley MD Medication Refill 10/17/2011 [address] [place] [address] Marcela Ding MD Other 10/01/2011 3:24 PM EDT - 10/01/2011 4:31 PM EDT Emergency [facility] [address] [place] [address] Mariaelena Rossi MD Contusion of third finger, right; Left elbow contusion; Fall Discharge Disposition: Home or Self Care 09/14/2011 Refill [facility] [address] [place] [address] Germán Bradley MD Medication Refill 08/23/2011 9:20 AM EDT Office Visit [facility] [address] [place] [address] Germán Bradley MD Osteoarthritis (Primary Dx); Asthma; Epilepsy (HCC); Arthritis shoulder and knee; GERD (gastroesophageal reflux disease); Bipolar affective disorder (HCC); CTS (carpal tunnel syndrome) 08/07/2011 12:58 PM EDT - 08/07/2011 2:03 PM EDT Emergency [facility] [address] [place] [address] Alfie Perez MD Carpal tunnel syndrome of right wrist; Rotator cuff injury Discharge Disposition: Home or Self Care 07/10/2011 Telephone [facility] [address] [facility] [place] [address] Germán Bradley MD Other 07/02/2011 [address] [place] [address] Nelda Fritz, NIESHA Other (PA for celexa) 06/28/2011 9:51 AM EDT - 06/28/2011 11:59 PM EDT Hospital Encounter [facility] [address] [place] [address] Germán Bradley MD TMJ (dislocation of temporomandibular joint); Jaw pain; Dental decay Discharge Disposition: Home or Self Care 06/28/2011 9:20 AM EDT Office Visit [address] [place] [address] Germán Bradley MD Bipolar affective disorder (HCC); Anxiety; TMJ (dislocation of temporomandibular joint); Jaw pain; Dental decay 06/11/2011 Telephone [facility] [address] [facility] [address] [place] [address] Marcela Ding MD Medication Refill 06/03/2011 8:09 PM EST - 06/03/2011 11:59 PM EST Hospital Encounter [facility] [address] Bipolar affective disorder (HCC); Epilepsy (HCC) Discharge Disposition: Home or Self Care 06/03/2011 1:00 PM EST Office Visit [facility] [address] [place] [address] Germán Bradley MD Bipolar affective disorder (HCC); Asthma; Epilepsy (HCC) 05/18/2011 Refill [facility] [address] [place] [address] Germán Bradley MD Medication Refill 05/03/2011 Telephone [facility] [address] [place] [address] Nelda Fritz CMA Other 05/03/2011 10:50 AM EST Office Visit [place] [address] [place] [address] Germán Bradley MD Asthma (Primary Dx); Side pain; Abdominal wall pain; Bipolar affective disorder (HCC); Epilepsy (HCC) 04/17/2011 Refill [facility] [address] [place] [address] Germán Bradley MD Medication Refill 03/18/2011 Telephone [facility] [address] [place] [address] Cleopatra Duran 02/18/2011 2:20 PM EST - 02/18/2011 11:59 PM EST Hospital Encounter [facility] Physical [address] [place] [address] Chyna Mathis, PT Discharge Disposition: Home or Self Care 02/11/2011 2:30 PM EDT - 02/11/2011 11:59 PM EDT Hospital Encounter [facility] Physical [address] [place] [address] Chyna Mathis, PT Discharge Disposition: Home or Self Care 02/04/2011 2:24 PM EDT - 02/04/2011 11:59 PM EDT Hospital Encounter [facility] Physical Therapy [facility] [address] [place] [address] Chyna Mathis, [place] Discharge Disposition: Home or Self Care 01/11/2011 Telephone [facility] [place] [address] [place] [address] Marcela Ding MD Other 12/28/2010 Telephone [facility] [place] [address] [place] [address] Ipregan Lucy K Rectal Bleeding 12/19/2010 2:51 PM EDT - 12/19/2010 11:59 PM EDT Hospital Encounter [facility] PROC[facility]ING [facility] [place] [address] Elevated glucose Discharge Disposition: Home or Self Care 12/19/2010 10:30 AM EDT Office Visit [place] [address] [place] [address] Germán Bradley MD Bipolar affective disorder (HCC); Epilepsy (HCC); Asthma; AR (allergic rhinitis); GERD (gastroesophageal reflux disease); Arthritis shoulder and knee; Elevated glucose 12/14/2010 Telephone [address] [place] [address] Ipregan Lucy K Medication Refill 12/14/2010 Refill [address] [place] [address] Germán Bradley MD Medication Refill 12/12/2010 1:22 PM EDT - 12/12/2010 2:55 PM EDT Emergency [facility] [address] [place] [address] Ty Griffiths DO Fibula fracture Discharge Disposition: Home or Self Care 12/08/2010 Telephone [address] [place] [address] Inge Quinn, RMA Results 11/21/2010 8:29 PM EDT - 11/21/2010 11:59 PM EDT Hospital Encounter EDG LAB KELVIN PROCESSING [facility] [place] [address] Lipid screening; Epilepsy (HCC); Encounter for long-term (current) use of medications Discharge Disposition: Home or Self Care 11/21/2010 10:30 AM EDT Clinical Support [facility] [place] [address] Oralia Cruz Sabine Bipolar affective disorder (HCC); Epilepsy (HCC); Lipid screening; Encounter for long-term (current) use of medications 11/09/2010 [address] [place] [address] Germán Bradley MD Medication Refill 07/31/2010 2:00 PM EDT Office Visit [facility] [place] [address] Germán Bradley MD Asthma; Bronchitis; Rotator cuff syndrome 07/30/2010 Telephone [facility] [address] [place] [address] Lucy Redman 05/02/2010 11:30 AM EST Office Visit [facility] [place] [address] Germán Bradley MD Epilepsy (HCC); Bipolar affective disorder (HCC); Asthma; COPD (chronic obstructive pulmonary disease) (HCC); GERD (gastroesophageal reflux disease); Osteoarthritis 04/30/2010 10:08 AM EST - 04/30/2010 11:59 PM EST Hospital Encounter EDG LAB KELVIN PROCESSING [facility] [place] [address] Marcela Ding MD Encounter for long-term (current) use of other medications; Epilep NOS w/o intr epil; Bipolar disorder NOS Discharge Disposition: Home or Self Care 04/30/2010 9:50 AM EST Clinical Support [facility] [place] [address] FrancoiseArabellaNellymarlon Reardon, RMA Epilepsy ([facility]); Bipolar affective disorder ([facility]) 2010 Telephone SEP [facility] [address] [place] [address] Oralia Cruz Sabine, RMA Letter for School/Work ([place] [employer] form) 04/13/2010 Refill SEP [facility] [address] [place] [address] Germán Bradley MD Medication Refill 03/17/2010 Refill [facility] [address] [place] [address] Germán Bradley MD Medication Refill 02/12/2010 Refill [facility] [address] [place] [address] Germán Bradley MD Medication Refill 01/16/2010 11:10 AM EDT Office Visit [facility] [address] [place] [address] Germán Bradley MD COPD (chronic obstructive pulmonary disease) ([facility]); Osteoarthritis of knee 12/21/2009 Refill [facility] [address] [place] [address] Marcela Ding MD Medication Refill 12/07/2009 Refill [facility] [address] [place] [address] Dustin Mcintyre MD Medication Refill 11/07/2009 7:59 PM EDT - 11/07/2009 11:59 PM EDT Hospital Encounter HST SUWT EDG Germán Bradley MD 11/07/2009 3:20 PM EDT Office Visit [facility] [address] [place] [address] Germán Bradley MD PUD (peptic ulcer disease) (Primary Dx); Bipolar affective disorder (HCC); Asthma; AR (allergic rhinitis) 11/04/2009 10:43 PM EDT - 11/05/2009 12:41 AM EDT Emergency [facility] G[facility] MICHELLET Ty Griffiths, DO 10/12/2009 12:01 AM EDT - 10/26/2009 1:28 PM EDT Hospital Encounter HST PT Germán Odom MD 10/25/2009 9:30 AM EDT Office Visit SEP [facility] [address] [place] [address] Germán Bradley MD AR (allergic rhinitis); GERD (gastroesophageal reflux disease); Rotator cuff syndrome; Bipolar affective disorder (HCC); Asthma; Epilepsy (HCC) 09/12/2009 12:01 AM EDT - 10/11/2009 11:59 PM EDT Hospital Encounter HST PT Marcela Villanueva MD Burke, Brennan C, MD 09/28/2009 Telephone SEP [facility] [address] [place] [address] Francoise, Nelly Reardon, RMA Medication Problem 09/27/2009 Telephone SEP [facility] [address] [facility] [place] [address] Veronica Freed MA Other 09/27/2009 1:20 PM EDT Office Visit [facility] [address] [place] [address] Gemrán Bradley MD Rotator cuff syndrome; AR (allergic rhinitis); GERD (gastroesophageal reflux disease) 09/14/2009 2:06 AM EDT - 09/14/2009 11:59 PM EDT Emergency HST GES GRTy Rodriguez, DO 08/24/2009 2:55 PM EDT - 09/11/2009 11:59 PM EDT Hospital Encounter HST PT Marcela Villanueva MD 09/05/2009 Telephone SEP [facility] [address] [place] [address] Germán Bradley MD Results 09/05/2009 Telephone SEP [facility] [address] [place] [address] Dustin Mcintyre MD Results 09/01/2009 12:01 AM EDT - 09/01/2009 11:59 PM EDT Hospital Encounter HST RADIOLOGY GRT Marcela Ding MD 08/26/2009 Telephone SEP [facility] [address] [place] [address] Germán Bradley MD Results 08/24/2009 3:04 PM EDT - 08/24/2009 11:59 PM EDT Hospital Encounter HST RADIOLOGY GRT Marcela Ding MD 08/24/2009 2:30 PM EDT Office Visit [facility] [address] [place] [address] Marcela Ding MD Shoulder pain (Primary Dx) 08/15/2009 Refill SEP [facility] [address] [place] [address] Nelda Fritz INTEL RECRUITER Medication Refill 07/25/2009 5:37 PM EDT - 07/25/2009 11:59 PM EDT Hospital Encounter HST SUWT EDG Dustin Mcintyre MD 07/25/2009 3:00 PM EDT Office Visit [facility] [address] [place] [address] Germán Bradley MD Rotator cuff syndrome; Epilepsy (HCC); Encounter for long-term (current) use of other medications 06/26/2009 8:46 AM EDT - 06/26/2009 11:59 PM EDT Hospital Encounter HST RADIOLOGY GRT Wang Ospina 06/15/2009 Telephone SEP [facility] [address] [place] [address] Germán Bradley MD Other 06/15/2009 2:00 PM EST Office Visit [facility] [address] [place] [address] Germán Bradley MD Shoulder pain; Bipolar affective disorder (HCC) 06/06/2009 Telephone SEP [facility] [address] [place] [address] Nelda Fritz, INTEL RECRUITER Seizures 05/30/2009 5:31 PM EST - 05/30/2009 11:59 PM EST Hospital Encounter HST EPIC CON UNK EDG Dustin Mcintyre MD 04/20/2009 Abstract SEP [facility] [address] [facility] 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 Epilepsy ([facility]); Bipolar affective disorder ([facility]); Depression, major ([facility]); Asthma; COPD (chronic obstructive pulmonary disease) ([facility]); Hearing loss in left ear; GERD (gastroesophageal [...] PM EDT [facility] 01/25/1999 5:20 PM EDT [...] Hospital Encounter HST EPIC CON UNK EDG [facility] 05/26/1997 6:49 PM EST - 05/26/1997 11:59 PM EST Emergency HST MAJOR ER EDG Ty Griffiths DO 12/26/1996 7:54 PM EDT - 12/26/1996 11:59 PM EDT Hospital Encounter HST EPIC CON UNK COV [facility] 10/18/1996 5:34 PM EDT - 10/18/1996 11:59 PM EDT Emergency HST EPIC CON UNK EDG Augustine Baldwin MD 10/11/1996 10:10 AM EDT - 10/11/1996 12:10 PM EDT Hospital Encounter HST Jaime Perez MD 03/13/1996 6:17 PM EST - 03/13/1996 11:59 PM EST Hospital Encounter HST EPIC CON UNK COV [facility] 01/21/1996 7:05 PM EDT - 01/21/1996 11:59 PM EDT Hospital Encounter HST EPIC CON UNK COV [facility] 01/01/1996 8:11 PM EDT - 01/06/1996 2:05 PM EDT Hospital Encounter HST BH2 Rosa Clark MD 12/26/1995 8:21 AM EDT - 12/26/1995 11:59 PM EDT Hospital Encounter HST EPIC CON UNK COV [facility] 10/26/1995 9:59 PM EDT - 10/30/1995 1:44 PM EDT Hospital Encounter HST BH2 Wang Rosales MD Cohen, Raymond L 10/12/1995 7:54 PM EDT - 10/12/1995 11:59 PM EDT Hospital Encounter HST EPIC CON UNK COV [facility] 10/04/1995 9:50 PM EDT - 10/07/1995 [...] 9 Active fluticasone (FLONASE) 50 mcg/actuation Nasl Farley, SuspensionIndicati ons:Chronic seasonal allergic rhinitis due to [...] Mother 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 Smoking Status as of 12/22/2024 Tobacco Use Types Packs/Day Years Used Date [...] on file Medical Devices Implanted Type Area Drag Down Device Identifier Shelf Expiration Date Model / Serial / Lot [employer] Lupine Br W/Dual Suture Orthocord - [id number] Implanted:Qty : 1 on 01/18/2013 by Crow Love MD at [facility] Left: Shoulder J&J:ETHICON:MITE K PRDT [id number] 06/12/2015 [id number] / / [id number] [employer] Lupine Br W/Dual Suture Orthocord - [id number] Implanted:Qty : 1 on 01/18/2013 by Crow Love MD at [facility] Left: Shoulder J&J:ETHICON:MITE K PRDT [id number] 06/11/2014 [id number] / / [id number] [employer] Advance Healix 5.5 Br - [id number] Implanted:Qty : 1 on 06/20/2015 by Crow Love MD at [facility] Right: Shoulder J&J:ETHICON:MITE K PRDT 05/14/2017 [id number] / / [id number] Procedures Procedure Name Priority Date/Time Associated Diagnosis [...] meniscus of knee, current Special Needs FAX CPT;70448 30351 POCT EKG Routine 06/08/2014 10:16 AM EST [...] Chronic maxillary sinusitis Special Needs NICOL CPT; 96765/54738 HEPATIC FUNCTION PANEL Routine 4 11:31 AM [...] EDT Rotator cuff (capsule) sprain Special Needs CPT;13362 65843 [id number] MRI SHOULDER LEFT WO CONTRAST Routine 12/25/2012 [...] - 946 pg/mL 06/01/2018 4:11 PM EST [employer] Folate >16.00(H) 4.50 - 16.00 ng/mL 06/01/2018 4:11 PM EST [employer] Blood VENOUS BLOOD / Unknown Venipuncture / Unknown 06/01/2018 10:14 AM EST 06/01/2018 10:14 AM EST Narrative [facility]REFERRED [facility] [employer] - 06/01/2018 4:11 PM EST Ingestion of roxanna doses of biotin (>5 mg/day) taken within 8 hours of drawing blood sample can interfere with this immunoassay test. us Dustin Mcintyre MD CHEMISTRY ORDERABLES F inal Result [facility]REFERR[facility] [address] , [place] [address] * TSH REFLEX (06/01/2018 10:14 AM EST) TSH Reflex 1.640 0.270 - 4.200 mcIU/mL 06/01/2018 3:53 PM EST PREFERRED [facility], [facility] Blood VENOUS BLOOD / Unknown Venipuncture / Unknown 06/01/2018 10:14 AM EST 06/01/2018 10:14 AM EST Narrative [facility], [facility] - 06/01/2018 3:53 PM EST Ingestion of roxanna doses of biotin (>5 mg/day) taken within 8 hours of drawing blood sample can interfere with this immunoassay test. Dustin Mcintyre MD CHEMISTRY ORDERABLES F inal Result Performing Organization Address City/[facility]/ZIP Co de Phone Number [facility] [employer] [address] , [place] [address] * (ABNORMAL) ACUTE HEPATITIS PANEL (06/01/2018 10:14 AM EST) Only the most recent of2 resultswithin the time period is included. Pathologist [facility] Hep Bs Ag Non-Reacti ve Non-Reacti ve 06/02/2018 11:57 AM EST PREFERRED LAB [facility] Hep B Core IgM Non-Reacti ve Non-Reacti ve 06/02/2018 11:57 AM EST [facility], [facility] Hep A IgM Non-Reacti ve Non-Reacti ve 06/02/2018 11:57 AM EST [facility], [facility] Hep C Ab Reactive(A ) Non-Reacti ve 06/02/2018 11:57 AM EST [facility] Comment:Reactive. Antibodies to HCV detected. >97% of specimens with high signal cutoff confirm as reactive. HCV QUANT W/RFLX TO GENOTYPE -REF LAB Blood VENOUS BLOOD / Unknown Venipuncture / Unknown 06/01/2018 10:14 AM EST 06/01/2018 10:14 AM EST Dustin Mcintyre MD CHEMISTRY ORDERABLES F inal Result Performing Organization Address City/[facility]/ZIP Co de Phone Number [facility], [address] , [place] [address] * (ABNORMAL) CBC WITH DIFF [...] 3:19 PM EST [facility] Clarke Percent 11.4 % 06/01/2018 3:19 PM EST [facility] Eos Percent 3.8 % 06/01/2018 3:19 PM EST [facility] Baso Percent 0.6 % 06/01/2018 3:19 PM EST [facility] Neut # 3.4 1.6 - 6.1 x10(3)/mcL 06/01/2018 3:19 PM EST [facility] Comment:Neutrophils equals s egs plus bands IMMGRAN# 0.0 0.0 - 0.1 x10(3)/[facility] 06/01/2018 3:19 PM EST [facility] Comment:Automated count of m etamyelocytes, myelocytes and promyelocytes. An absolute IG <0.1 is reported as 0.0. Lymph # 2.1 1.2 - 3.9 x10(3)/[facility] 06/01/2018 3:19 PM EST [facility]REFERRED [facility] Clarke # 0.8 0.3 - 0.9 x10(3)/[facility] 06/01/2018 3:19 PM EST [facility] Eos# 0.3 0.0 - 0.5 x10(3)/[facility] 06/01/2018 3:19 PM EST [facility] Baso # 0.0 0.0 - 0.1 x10(3)/[facility] 06/01/2018 3:19 PM EST [facility], [facility] Blood VENOUS BLOOD / Unknown Venipuncture / Unknown 06/01/2018 10:14 AM EST 06/01/2018 10:14 AM EST Dustin Mcintyre MD HEMATOLOGY ORDERABLES Final Result Performing Organization Address [facility] Co de Phone Number [facility] [employer] [address] , [place] [address] * (ABNORMAL) PHENYTOIN LEVEL TOTAL (06/01/2018 10:14 AM EST) Only the most recent of20 resultswithin the time period is included. Dilantin 9.0(L) 10.0 - 20.0 mcg/mL 06/01/2018 3:51 PM EST [facility], [facility] Blood VENOUS BLOOD / Unknown Venipuncture / Unknown 06/01/2018 10:14 AM EST 06/01/2018 10:14 AM EST Dustin Mcintyre MD CHEMISTRY ORDERABLES F inal Result Performing Organization Address [facility] Co de Phone Number [facility] [address] , [place] [address] * (ABNORMAL) COMPREHENSIVE METABOLIC PANEL (06/01/2018 10:14 [...] mL/min/1.7 3 m2 06/01/2018 3:53 PM EST [facility] GFR Non Afr Am 96 >=60 mL/min/1.7 3 m2 06/01/2018 3:53 PM EST [facility] Comment: This estimated GFR was calculated [...] ORDERABLES F inal Result [facility] [address] [facility], [place] [address] [facility] [address] [place] [address] * POCT URINALYSIS DIPSTICK (06/01/2018 9:40 AM EST) Only the most recent of4 resultswithin the time period is included. 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 SEP health science instructor Grav, UA 1.025 1.001 - 1.035 G/DL SEP OFFICE Blood, UA neg POS/NEG SEP OFFICE pH, UA 6.0 5.0 - 8 SEP OFFICE Protein, UA neg POS/NEG SEP OFFICE Urobilinogen, UA 1+ 0.2 - 1.0 MG/DL SEP OFFICE Leukocytes, UA neg POS/NEG SEP OFFICE Nitrite, UA neg POS/NEG SEP OFFICE UA Appear POC SEP OFFICE Lot Number [id number] SEP OFFICE Expiration Date 12/22/2019 SEP OFFICE [...] 207(H) <=200 mg/dL 12/05/2017 3:59 PM EDT [facility] [employer] Comment: < 200 Desirable 200 - 239 Borderline High >= 240 High Triglyceride 316(H) <=150 mg/dL 12/05/2017 3:59 PM EDT [employer] [employer] Comment: < 150 Normal 150 - 199 Borderline High 200 - 499 High >= 500 Very High HDL 33(L) >=40 mg/dL 12/05/2017 3:59 PM EDT [facility] [employer] [employer] Comment: > 60 Optimal 40 - 60 Acceptable < 40 Low LDL Calculated 111(H) <=100 mg/dL 12/05/2017 3:59 PM EDT [facility] [employer] [employer] Non-HDL-C Calculated 174(H) <=129 mg/dL 12/05/2017 3:59 PM EDT [facility] [employer] Comment: <130 Desirable 130-159 Above Desirable 160-189 Borderline High 190-219 High >= 220 Very High Blood VENOUS BLOOD / Unknown Venipuncture / Unknown 12/05/2017 9:03 AM EDT 12/05/2017 9:03 AM EDT us Germán Bradley MD CHEMISTRY ORDERABLES Final Re sult [facility] [address] [facility] , [place] [address] * DRUGS OF ABUSE, SCREEN ONLY, URINE (06/30/2017 10:59 PM EDT) Only the most recent of2 resultswithin the time period is included. 6 AM (Heroin) Absent Absent 06/30/2017 11:29 PM EDT [facility] Amphetamines Absent Absent 06/30/2017 11:29 PM EDT [facility] Barbiturates Absent Absent 06/30/2017 11:29 PM EDT [facility] Benzodiazepines Absent Absent 8 11:29 PM EDT [facility] Buprenorphine Absent Absent 06/30/2017 11:29 PM EDT [facility] Cannabinoid Metabolite Absent Absent 06/30/2017 11:29 PM EDT [facility] Cocaine Metabolite Absent Absent 2017 11:29 PM EDT [facility] Methadone and Metabolite Absent Absent 06/30/2017 11:29 PM EDT [facility] Opiate Absent Absent 06/30/2017 11:29 PM EDT [facility] Oxycodone Lvl Absent Absent 06/30/2017 11:29 PM EDT [facility] Phencyclidine Absent Absent 06/30/2017 11:29 PM EDT [facility] Creatinine Ur >25.0 mg/dL 06/30/2017 11:29 PM EDT [facility] Comment: Greater than 20: Consistent with valid sample Greater than 2 but less than 20: Possible dilution Less than 2: Questionable valid sample Urine STRUCTURE OF URINARY TRACT PROPER / Unknown 06/30/2017 10:59 PM EDT 06/30/2017 11:03 PM EDT Narrative [facility] - 06/30/2017 11:29 PM EDT These [...] ORDERABLES Final Resul t Performing Organization Address [facility] de Phone Number [facility] [address] [place] [address] * EXTRA GOLD SST (06/30/2017 10:18 PM EDT) Blood VENOUS BLOOD / Unknown Venipuncture / Unknown 06/30/2017 10:18 PM EDT 06/30/2017 10:27 PM EDT us Robbie Queen MD CHEMISTRY ORDERABLES Final Resul t Performing Organization Address [facility] de Phone Number [facility] [address] [place] [address] * EXTRA LAVENDER (06/30/2017 10:18 PM EDT) Blood VENOUS BLOOD / Unknown Venipuncture / Unknown 06/30/2017 10:18 PM EDT 06/30/2017 10:27 PM EDT us Robbie Queen MD HEMATOLOGY ORDERABLES Final Resu lt Performing Organization Address [facility] de Phone Number [facility] [address] [place] [address] * EXTRA LIGHT BLUE (06/30/2017 10:18 PM EDT) Only the most recent of2 resultswithin the time period is included. Blood VENOUS BLOOD / Unknown Venipuncture / Unknown 06/30/2017 10:18 PM EDT 06/30/2017 10:27 PM EDT us Robbie Queen MD HEMATOLOGY ORDERABLES Final Resu lt Performing Organization Address [facility] Co de Phone Number [facility] [address] [place] [address] * (ABNORMAL) ALCOHOL MEDICAL (06/30/2017 10:18 PM EDT) Only the most recent of2 resultswithin the time period is included. Alcohol Medical 36(H) <=10 mg/dL 06/30/2017 10:39 PM EDT [facility] Blood VENOUS BLOOD / Unknown Venipuncture / Unknown 06/30/2017 10:18 PM EDT 06/30/2017 10:26 PM EDT us Robbie Queen MD CHEMISTRY ORDERABLES Final Resul t Performing Organization Address [facility] de Phone Number [facility] [address] [place] [address] * ACETAMINOPHEN LEVEL (06/30/2017 10:18 PM EDT) Only the most recent of2 resultswithin the time period is included. Acetaminophen Lvl <15.0 mcg/mL 018 11:16 PM EDT [facility] Blood VENOUS BLOOD / Unknown Venipuncture / Unknown 06/30/2017 10:18 PM EDT 06/30/2017 10:27 PM EDT Narrative [facility] - 06/30/2017 11:16 PM EDT Therapeutic: 10-30 mcg/ml Supratherapeutic: > 35 mcg/ml Toxic: > 150 mcg/ml (4h post ingestion) > 75 mcg/ml (8h post ingestion) > 40 mcg/ml (12h post ingestion) us Holly Brannon APRN CHEMISTRY ORDERABLES Final R esult Performing Organization Address [facility] Co de Phone Number [facility] [address] [place] [address] * SALICYLATE LEVEL (06/30/2017 10:18 PM EDT) Only the most recent of2 resultswithin the time period is included. Salicylate <0.3 <=0.3 mg/dL 06/30/2017 11:16 PM EDT [facility] Blood VENOUS BLOOD / Unknown Venipuncture / Unknown 06/30/2017 10:18 PM EDT 06/30/2017 10:27 PM EDT us Holly Brannon TAXONOMIST CHEMISTRY ORDERABLES Final R esult [facility] [address] [place] [address] * (ABNORMAL) BASIC METABOLIC PANEL (06/30/2017 10:18 PM EDT) Only the most recent of5 resultswithin the time period is included. Pathologist [facility] Sodium 142 136 - 145 mmol/L 06/30/2017 11:16 PM EDT [facility] Potassium 4.1 3.5 - 5.0 mmol/L 06/30/2017 11:16 PM EDT [facility] Chloride 101 98 - 107 mmol/L 06/30/2017 11:16 PM EDT [facility] Total CO2 26 22 - 29 mmol/L 06/30/2017 11:16 PM EDT [facility] Anion Gap 15 7 - 16 mmol/L 06/30/2017 11:16 PM EDT [facility] Calcium 9.4 8.6 - 10.2 mg/dL 06/30/2017 11:16 PM EDT [facility] Glucose Lvl 115(H) 74 - 100 mg/dL 06/30/2017 11:16 PM EDT [facility] BUN 12 6 - 20 mg/dL 06/30/2017 11:16 PM EDT [facility] Creatinine 0.96 0.67 - 1.30 mg/dL 06/30/2017 11:16 PM EDT [facility] GFR Afr Am 110 mL/min/1.7 3 m2 06/30/2017 11:16 PM EDT [facility] GFR Non Afr Am 95 mL/min/1.7 3 m2 06/30/2017 11:16 PM EDT [facility] Comment: GFR Afr Am and GFR [...] 06/30/2017 10:26 PM EDT us Holly Brannon TAXONOMIST CHEMISTRY ORDERABLES Final R esult [facility] [address] [id number] * XR WRIST RIGHT PA LATERAL AND OBLIQUE (05/26/2017 9:46 PM EST) Anatomical Region Laterality Modality Wrist Radiographic Thao ging 05/26/2017 9:46 PM EST Impressions 05/26/2017 10:07 PM EST Negative exam. Narrative 05/26/2017 10:07 PM EST XR WRIST RIGHT PA LATERAL AND OBLIQUE, 05/26/2017 9:46 PM CLINICAL HISTORY: -MEDICAL CLEARANCE FOR [facility] COMPARISON: None. PROCEDURE COMMENTS: 4 routine views of the right wrist. FINDINGS: No fracture, dislocation or radio-opaque foreign body. Navicular fractures can be occult on initial radiographs. If there is snuff-box tenderness consider follow-up radiographs in 10 to 14 days. Procedure Note Mauro Rosas MD - 05/26/2017 XR WRIST RIGHT PA LATERAL AND OBLIQUE, 05/26/2017 9:46 PM CLINICAL HISTORY: -MEDICAL CLEARANCE FOR [facility] COMPARISON: None. PROCEDURE COMMENTS: 4 routine views [...] 9:45 PM CLINICAL HISTORY: -MEDICAL CLEARANCE FOR [facility] COMPARISON: None. PROCEDURE COMMENTS: 3 routine radiographs [...] 9:45 PM CLINICAL HISTORY: -MEDICAL CLEARANCE FOR [facility] COMPARISON: None. PROCEDURE COMMENTS: 3 routine radiographs [...] ORDERAB LES Final Result Performing Organization Address City/[facility] Co de Phone Number [facility] [address] [place] [address] * URINALYSIS (04/16/2017 1:05 AM EST) Only the most recent of3 resultswithin the time period is included. UA Color Yellow 04/16/2017 1:20 AM EST [facility] UA Appear Clear Clear 04/16/2017 1:20 AM EST [facility] UA Glucose Negative Negative mg/dL 04/16/2017 1:20 AM EST [facility] UA Ketones Negative Negative mg/dL 04/16/2017 1:20 AM EST [facility] UA Blood Negative Negative 04/16/2017 1:20 AM EST [facility] UA pH 6.0 5.0 - 8.0 pH 04/16/2017 1:20 AM EST [facility] UA Protein Negative Negative mg/dL 04/16/2017 1:20 AM EST [facility] UA Urobilinogen 0.2 <=1 E.U./dL 04/16/19 18 1:20 AM EST [facility] UA Nitrite Negative Negative 04/16/2017 1:20 AM EST [facility] UA Leuk Est Negative Negative 04/16/2017 1:20 AM EST [facility] UA Spec Grav 1.025 1.001 - 1.035 no units 04/16/2017 1:20 AM EST [facility] Comment: Reference range valid for random specimens only. Urine URINE SPECIMEN COLLECTION, CLEAN CATCH / Unknown 04/16/2017 1:05 AM EST 04/16/2017 1:17 AM EST us Jose Carlos Rasheed MD URINE ORDERABLES Final Result Performing Organization Address City/[facility] Co de Phone Number [facility] [address] [place] [address] * LDL, CALCULATED (01/07/2017 10:30 AM EDT) [...] ORDERABLES F inal Result Performing Organization Address [facility] de Phone Number [address] [address] * (ABNORMAL) DIFFERENTIAL (01/07/2017 10:30 AM EDT) Only the most recent of11 resultswithin the time period is included. Neut Percent 48.5 % [facility] Lymph Percent 34.1 % [facility] Clarke Percent 9.2 % [facility] Eos Percent 6.9 % [facility] Baso Percent 1.3 % [facility] Neut# 3.9 1.8 - 7.7 x10(3)/mcL [facility] Lymph# 2.7 0.6 - 4.8 x10(3)/[facility] Clarke# 0.7 0.0 - 1.3 x10(3)/[facility] Eos# 0.6(H) 0.0 - 0.5 x10(3)/[facility] Baso# 0.1 0.0 - 0.2 x10(3)/[facility] Blood specimen (specimen) 01/07/2017 10:30 AM EDT 01/07/2017 3:48 PM EDT us Dustin Mcintyre MD HEMATOLOGY ORDERABLES Final Result Performing Organization Address [facility] Co de Phone Number [address] [address] * XR KNEE RIGHT AP LAT INT [...] AM EST) 05/06/2016 8:51 AM EST Impressions [facility] - 05/06/2016 8:51 AM EST [...] Germán Bradley MD PFT ORDERABLES Final Result [facility] [address] [place] [address] * POCT EKG (04/29/2016 2:23 PM EST) Only the most recent of4 resultswithin the time period is included. 04/29/2016 2:23 PM EST Impressions SEP OFFICE - 04/29/2016 2:23 PM EST nsr No ischemia Normal ekg Germán Bradley MD POINT OF CARE CARDIOLOGY Zayra l Result Performing Organization Address City/[facility]/ZIP Co de Phone Number SEP OFFICE * SYPHILIS SCREEN WITH REFLEX RPR QUANT (04/01/2016 4:37 PM EST) TREP(SYPHILIS) AB INDEX <0.10 <=1.09 Index Value [facility] Comment: <0.90 - Negative 0.90 to 1.00 - Equivocal Patients with equivocal results should be retested in 7-14 days. >=1.10 - Positive NOTE: All equivocal and positive results will be reflexed to Quantitative Non-Treponemal(RPR)test. Blood specimen (specimen) UPPER LIMB STRUCTURE / Unknown 04/01/2016 4:37 PM EST 04/01/2016 8:41 PM EST Germán Bradley MD CHEMISTRY ORDERABLES Final Re sult Performing Organization Address [facility] [place] [address] * XR LUMBAR SPINE AP AND LATERAL [...] PERIPHERAL BLOCK (06/20/2015 7:47 AM EST) Narrative [facility] - 06/20/2015 7:47 AM EST [...] bill Result - Final Performing Organization Address [facility] de Phone Number [facility] [address] [place] [address] * LDL DIRECT (04/20/2015 9:44 AM EST) Only the most recent of5 resultswithin the time period is included. LDL Direct 65 <=100 mg/dL [facility] Comment: < 100 Optimal 100 - 129 Near or above optimal 130 - 159 Borderline High 160 - 189 High >= 190 Very High Blood specimen (specimen) 04/20/2015 9:44 AM EST 04/20/2015 3:48 PM EST us Germán Bradley MD CHEMISTRY ORDERABLES Final Re sult Performing Organization Address [facility] Co de Phone Number [facility] [address] [place] [phone] * MRI SHOULDER RIGHT WO CONTRAST (03/22/2015 [...] included. WBC 7.2 4.0 - 11.0 x10(3)/mcL [facility] RBC 4.86 4.30 - 5.81 x10(6)/mcL [facility] Hgb 16.1 13.5 - 17.1 gm/dL [facility] Hct 47.6 38.9 - 51.6 % [facility] MCV 97.9 82.5 - 99.8 fL [facility] MCH 33.1 27.0 - 34.3 pg [facility] MCHC 33.8 32.1 - 35.3 gm/dL [facility] RDW 13.6 11.5 - 15.0 % [facility] Platelet 211 144 - 423 x10(3)/mcL [facility] MPV 9.2 6.8 - 10.8 fL [facility] Blood specimen (specimen) UPPER LIMB STRUCTURE / Unknown 11/04/2014 10:36 AM EDT 11/04/2014 4:05 PM EDT Dustin Mcintyre MD HEMATOLOGY ORDERABLES Final Result Performing Organization Address City/State/[facility] Co de Phone Number [facility] [address] [place] [address] * SCANNED PATHOLOGY REPORT (09/20/2014 5:07 PM [...] Mariaelena Rossi MD IMG DIAGNOSTIC IMAGING ORDER KM Final Result * POCT OCCULT BLOOD STOOL (2014 11:02 AM EST) Fec Heme neg Pos/Neg SEP OFFICE 2014 11:0 2 AM EST us Dustin Mcintyre MD POINT OF CARE TEST ORD ERABLES Final Result SEP OFFICE * MISCELLANEOUS LAB (03/08/2014 11:28 AM EST) Blood specimen (specimen) 03/08/2014 11:28 AM EST 03/08/2014 3:39 PM EST Narrative [facility] - 03/16/2014 8:03 AM EST [employer]-See attached Fax to [phone] us Los Gordon MD HEMATOLOGY ORDERABLES Edited Result - Final [facility] [address] [place] [address] * SCANNED PRE/POST PROCEDURES (02/08/2014 1:26 AM [...] Saldana (Electronicall y signed by) Verified: 02/07/2014 [facility] Clinical Information Chronic maxillary [...] performed and the findings corroborate the diagnosis. [facility] 02/04/2014 8:20 AM EDT us Los Gordon MD PATHOLOGY ORDERABLES Final R esult [facility] [address] [place] [address] * FUNGUS CULTURE-OTHER (02/04/2014 8:00 AM EDT) Final No growth of fungus at 4 weeks [facility] Specimen from nose (specimen) NASAL STRUCTURE / Unknown 02/04/2014 8:00 AM EDT 02/04/2014 10:08 AM EDT Comment:LEFT MAX SINUS SWAB Narrative [facility] - 03/04/2014 4:01 PM EST Aerobic, anaerobic, fungus culture from left maxillary sinus Los Gordon MD MICROBIOLOGY - GENERAL ORDER MK Final Result [facility] [address] [place] [address] * WOUND CULTURE (02/04/2014 8:00 AM EDT) GS No slide sent/smear made after culture inoculated Rare WBC's Rare RBC's Rare Gram positive cocci [facility] Final Moderate growth of Staphylococcus aureus Sparse growth of Coagulase negative staphylococci No further workup Moderate growth of beta hemolytic Streptococci suspect Streptococcus anginosus group No further workup [facility] Organism Staphylococcus aureus [facility] Specimen from nose (specimen) NASAL STRUCTURE / Unknown 02/04/2014 8:00 AM EDT 02/04/2014 10:08 AM EDT Comment:LEFT MAX SINUS SWAB Narrative [facility] - 02/07/2014 9:08 AM EDT [...] ORDER MK Final Result Performing Organization Address [facility] de Phone Number [facility] [address] [place] [address] * ANAEROBIC CULTURE (02/04/2014 8:00 AM EDT) Final No anaerobic growth at 5 days [facility] Specimen from nose (specimen) NASAL STRUCTURE / Unknown 02/04/2014 8:00 AM EDT 02/04/2014 10:08 AM EDT Comment:LEFT MAX SINUS SWAB Narrative [facility] - 02/10/2014 5:01 PM EDT Aerobic, anaerobic, fungus culture from left maxillary sinus Los Gordon MD MICROBIOLOGY - GENERAL ORDER MK Final Result Performing Organization Address [facility] de Phone Number [facility] [address] [place] [address] * HEPATIC FUNCTION PANEL (01/24/2014 11:31 AM EDT) Only the most recent of2 resultswithin the time period is included. Total Protein 6.8 6.4 - 8.3 gm/dL [facility] Albumin 4.2 3.5 - 5.2 gm/dL [facility] Bili Direct <0.2 0.0 - 0.3 mg/dL [facility] Bili Total 0.1 0.1 - 1.4 mg/dL [facility] AST 40 <=40 IU/L [facility] ALT 38 <=41 IU/L [facility] Alk Phos 106 40 - 129 IU/L [facility] Blood specimen (specimen) UPPER LIMB STRUCTURE / Unknown 01/24/2014 11:31 AM EDT 01/24/2014 2:38 PM EDT Koffi Jay MD CHEMISTRY ORDERABLES Edited R esult - Final Performing Organization Address [facility] Co de Phone Number [facility] [address] [place] [address] * XR WRIST LEFT PA LATERAL AND [...] 10:12 AM EDT) Total PSA 0.66 ng/mL [facility] Comment: 2008 AUA Best Practice Statement Guidelines-Age Adjusted Reference Intervals: Age Range Whites Americans Americans 40-49 years 0-2.5 ng/mL 0-2.0 ng/mL 0-2.0 ng/mL 50-59 years 0-3.5 ng/mL 0-4.0 ng/mL 0-3.0 ng/mL 60-69 years 0-4.5 ng/mL 0-4.5 ng/mL 0-4.0 ng/mL 70-79 years 0-6.5 ng/mL 0-5.5 ng/mL 0-5.0 ng/mL [facility] uses the [employer] Tugboat Pilot Total PSA assay, which is approved as [...] Mcintyre MD CHEMISTRY ORDERABLES F inal Result [facility] [address] [place] [address] * MRI BRAIN W WO CONTRAST (07/23/2013 [...] be called to his cell phone at [phone]. This call was not made by radiology. [...] results be called to his cell phone [phone]. This call was not made by radiology. Richards us Germán Bradley MD [facility] DIAGNOSTIC IMAGING ORDERA BLES Final Result * [...] trauma. IMPRESSION: Negative exam. Mariaelena Rossi MD [facility] DIAGNOSTIC IMAGING ORDER MK Final Result * [...] AM EDT) Hgb A1c 5.3 <=7.0 % [facility] Comment: Initial Diagnostic Criteria < 5.7 % Normal 5.7 - 6.4 % At risk for diabetes mellitus >= 6.5 % Consistent with diabetes mellitus Diabetes monitoring Target Value (ADA recommended): < 7 % Blood specimen (specimen) UPPER LIMB STRUCTURE / Unknown 12/19/2010 11:00 AM EDT 12/19/2010 4:04 PM EDT Germán Bradley MD CHEMISTRY ORDERABLES Final Re sult [facility] [address] [place] [address] * XR ANKLE RIGHT AP LATERAL AND [...] ANTIBODY IGG (11/07/2009 4:13 PM EDT) Pathologist [facility] H pylori IgG 0.44 Index Value [facility] Comment: I.V. = Index Value I.V. < 0.90 No detectable IgG antibodies to H. Pylori I.V. 0.90 - 1.09 Equivocal for IgG antibodies to H. Pylori. Re-testing a new specimen is recommended. I.V. >= 1.10 H. Pylori IgG antibody detected. Blood specimen (specimen) 11/07/2009 4:13 PM EDT 11/07/2009 8:55 PM EDT us Germán Bradley MD IMMUNOLOGY ORDERABLES Final R esult [facility] [address] [place] [address] * SCANNED EKG (11/06/2009 12:00 AM EDT) Anatomical Region Laterality Modality Other Narrative 11/06/2009 9:16 AM EDT Ordered by an unspecified provider. Transcriptions Unknown, Unknown - 11/06/2009 5:12 AM EDT us Unknown Unknown IMG ECG ORDERABLES Final Result * TROPONIN-I (11/05/2009 12:01 AM EDT) Troponin-I 0.01 ng/mL [facility] Comment: Note: New reference ranges [...] Griffiths DO CHEMISTRY ORDERABLES Final Re sult [facility] [address] [place] [address] * XR CHEST PORTABLE GC (11/04/2009 11:28 [...] normal limits. IMPRESSION- Normal portable chest . Hand Ii Thermal Cutter- ALBERT CRAIG MD Reading Physician- ALBERT CRAIG [...] normal limits. IMPRESSION- Normal portable chest . Hand Ii Thermal Cutter- ALBERT CRAIG MD Reading Physician- ALBERT CRAIG MD Released Date Time- 11/04/09 2352 us Ty Griffiths DO [facility] HISTORICAL F inal Result * (ABNORMAL) PHENOBARBITAL LEVEL (11/04/2009 11:27 PM EDT) Phenobarbital Lvl <3.0(L) 15.0 - 40.0 mcg/mL [facility] Blood specimen (specimen) 11/04/2009 11:27 PM EDT 11/05/2009 6:47 PM EDT Ty Griffiths DO CHEMISTRY ORDERABLES Final Re sult [facility] [address] [place] [address] * EK EKG REG GC (11/04/2009 11:02 PM EDT) Only the most recent of3 resultswithin the time period is included. Anatomical Region Laterality Modality Other 11/04/2009 11:0 2 PM EDT Narrative 11/06/2009 2:48 PM EDT Sinus bradycardia Normal ECG except for rate Hand Ii Thermal Cutter- TY Healy PhysicianJenni FOY Released Date Time- 11/06/09 1448 Procedure Note Ty Foy S - 11/06/2009 Sinus bradycardia Normal ECG except for rate Hand Ii Thermal Cutter- TY Healy Physician- TY FOY Released Date Time- 11/06/09 1448 Ty Griffiths DO [facility] HISTOR[facility] Final Result * MR [...] 3. Degenerative changes of the AC joint. Hand Ii Thermal Cutter- LISSETTE Healy Physician- MEMO TONG M.D. Released [...] 3. Degenerative changes of the AC joint. Hand Ii Thermal Cutter- LISSETTE Healy Physician- MEMO TONG M.D. Released Date Time- 09/01/09 1124 Marcela Ding MD [facility] Thomas Final Result * XR BILAT [...] radiographically on the right than the left. Hand Ii Thermal Cutterdamaso Healy Physician- MEMO TONG M.D. Released Date [...] Date Time- 08/24/091914 Marcela Ding MD IMG [facility] RAD CHARANICA L Final Result * SCANNED ECG (08/03/2009 12:00 AM EDT) Only the most recent of2 resultswithin the time period is included. Anatomical Region Laterality Modality Other Narrative 08/03/2009 6:51 PM EDT Ordered by an unspecified provider. Transcriptions Unknown, Unknown - 08/03/2009 2:51 PM EDT us Unknown Unknown [facility] ECG ORDERABLES Final Result * MR ORBIT,FACE [...] Diffuse cerebellar hemisphere atrophy of uncertain etiology. Hand Ii Thermal Cutter- RADHA Healy Physician- CEASAR MARROQUIN MD Released [...] Diffuse cerebellar hemisphere atrophy of uncertain etiology. Hand Ii Thermal Cutter- RADHA CEE Reading Physician- CEASAR MARROQUIN MD Released Date Time- 06/26/09 1604 Wang Ospina [facility] RAD HISTORICAL Fin al Result [...] medial meniscus, also apparent on plain films. Hand Ii Thermal Cutter- PETTY LEVIN Reading Physician- LEONARDO PUCKETT MD [...] medial meniscus, also apparent on plain films. Hand Ii Thermal Cutter- PETTY Healy Physician- LEONARDO PUCKETT MD Released Date Time- 09/19/082050 Germán Bradley MD [facility]ISTOR[facility] F inal Result [...] cortical margins are intact. Impression- No fractures. Hand Ii Thermal Cutter- PETTY LIVINGSTON Reading Physician- MEMO TONG M.D. Released Date Time- 09/09/081949 Procedure Note Memo Tong - 06/22/2009 Examinations of the left tibia and fibula Indications- Pain. History- Pain. Two views of the left tibia and fibula demonstrate no fractures. There are no malalignments. The cortical margins are intact. Impression- No fractures. Uli Gandara- MEMO TONG M.D. Released Date Time- 09/09/081949 Germán Bradley MD [facility] HISTORICAL F inal Result [...] If so, MRI evaluation may be warranted. Hand Ii Thermal Cutter- PETTY Healy Physician- MEMO TONG M.D. Released Date Time- 09/09/081949 Germán Bradley MD [facility] HISTORICAL F inal Result * [...] The diary was blank. Carolina Campbell [id number] Hand Ii Thermal Cutter- RICK Healy Physician- ISAC BALLARD MD Released [...] The diary was blank. Carolina Campbell. 12-04-07 Hand Ii Thermal Cutter- RICK Healy Physician- IASC BALLARD MD Released Date Time- 12/04/07 1013 Finesse Moore MD [facility] AL Final Result * XR KNEE (04/02/2007 4:00 PM EST) Anatomical Region Laterality Modality Other 04/02/2007 4:00 PM EST Narrative 04/02/2007 4:26 PM EST PER /JESÚS RM7 Left knee 4 views, 04/02/2007 History- Pain following a twisting injury. Findings- There is no acute fracture or subluxation. Joint spaces and articular margins are intact. No definite joint effusion. Impression- Normal. Hand Ii Thermal Cutter- JANA SARKAR Reading Radiologist- PINO ALBARADO Released Date Time- 04/02/07 1633 Procedure Note Pino Albarado - 06/21/2009 PER /JESÚS RM7 Left knee 4 views, 04/02/2007 History- Pain following a twisting injury. Findings- There is no acute fracture or subluxation. Joint spaces and articular margins are intact. No definite joint effusion. Impression- Normal. Hand Ii Thermal Cutter- JANA Healy Radiologist- PINO ALBARADO Released Date Time- 04/02/07 1633 David Palma MD [facility] HISTORICAL F inal Result [...] Impression- No fracture or dislocation, ankle joint. Hand Ii Thermal Cutter- DALE VELÁSQUEZ Reading Radiologist- RADHA PORTER MD. [...] Impression- No fracture or dislocation, ankle joint. Hand Ii Thermal Cutter- DALE Healy Radiologist- RADHA PORTER MD. Released Date Time- 01/01/06913 Robbie Eldridge MD [facility] HISTORICAL Fi nal Result * [...] soft tissue swelling. Impression- 1. Negative exam. Hand Ii Thermal Cutter- ANGELA SMITH Reading Radiologist- RADHA PORTER MD. [...] soft tissue swelling. Impression- 1. Negative exam. Hand Ii Thermal Cutter- ANGELA SMITH Reading Radiologist- RADHA PORTER MD. Released Date Time- 01/01/06913 Robbie Eldridge MD [facility] [employer] HISTORICAL Fi nal Result * XR SCAPULA [...] definite fracture is identified. Dustin Mcintyre MD [facility] [employer] HISTO RICAL Final Result * XR NOSE [...] The septum is midline. Dustin Mcintyre MD [facility] HISTO RICAL Final Result Visit [...] facility 2014 COPD (chronic obstructive pulmonary disease) ([facility]) Chronic airway obstruction, not elsewhere classified 2014 Acute bronchitis 05/18/2014 Acute sinusitis Acute sinusitis, unspecified 05/18/2014 COPD (chronic obstructive pulmonary disease) ([facility]) Chronic airway obstruction, not elsewhere classified 05/18/2014 Hypernatremia Hyperosmolality and/or hypernatremia 05/20/2014 Pre-op testing Preoperative examination, unspecified 05/20/2014 Hypernatremia Hyperosmolality and/or hypernatremia 05/20/2014 Pre-op testing Preoperative examination, unspecified 05/20/2014 Bronchitis Bronchitis, not specified as acute or chronic 05/20/2014 COPD exacerbation ([facility]) Obstructive chronic bronchitis with exacerbation 05/20/2014 Asthma exacerbation, moderate persistent 05/20/2014 Chest wall pain Painful respiration 05/20/2014 Vomiting Vomiting alone 05/20/2014 Hypernatremia Hyperosmolality and/or hypernatremia 05/20/2014 Asthma, unspecified asthma severity, uncomplicated 05/21/2014 COPD (chronic obstructive pulmonary disease) ([facility]) Chronic airway obstruction, not elsewhere classified 05/21/2014 Pre-op exam Preoperative examination, unspecified 06/08/2014 Arthritis of knee Unspecified arthropathy, lower leg 06/08/2014 Folliculitis Other specified disease of hair and hair follicles 06/08/2014 Epilepsy ([facility]) Unspecified epilepsy without mention of intractable epilepsy [...] uncomplicated 11/04/2014 COPD (chronic obstructive pulmonary disease) ([facility]) Chronic airway obstruction, not elsewhere classified 11/04/2014 [...] Lifestyle No Radha Urbina CCMA Care Teams 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
[2024-12-22 11:04] LABS: Coronavirus 19, PCR Not Detected (NotDetected); Influenza A, PCR Not Detected (NotDetected); Influenza B, PCR Not Detected (NotDetected)
[2024-12-22 11:09] VITALS: BP 127/85; PULSE 94; O2SAT 99
[2024-12-22 11:32] LABS: Strep Scrn Group A (Rapid) Negative (Negative)
[2024-12-22 12:12] VITALS: BP 128/79; PULSE 79; RESP 17; TEMP 37.1; O2SAT 98
== END 2024-12-22 12:13 | disposition home or self-care (01) ==
PROVIDERS: Physician Assistant; Emergency Provider Student in an Organized Health Care Education/Training Program; PCP Family Medicine
DX: R07.0 Pain in throat (principal); F17.210 Nicotine dependence, cigarettes, uncomplicated
CPT/HCPCS: 87430; 87636; 99283

== ENCOUNTER 2024-12-31 13:16 | Emergency (ER) | payer MEDICARE, MEDICAID, SELFPAY ==
--- OUTSIDE RECORDS SUMMARY | 2024-12-31 13:27 | XMS_ITS | Continuity of Care Document ---
Author Organization [facility] Address [address] [place] [address] Phone Care Team Providers Care House Painter Helper Name Role Phone Robbie Putnam MD Primary Care Provider [phone] Encounters Date Type Department Care Team Description 07/21/2018 Refill [facility] [address] [place] [address] Germán Bradley MD Medication Refill 06/30/2018 Telephone [facility] [address] [place] [address] Dustin Mcintyre MD Other 06/02/2018 Orders Only [facility] [address] [place] [address] Radha Urbina CCMA Hepatitis A antibody positive (Primary Dx) 06/02/2018 Orders Only [facility] [address] [place] [address] Oralia Cruz RMA Elevated liver function tests (Primary Dx) 06/01/2018 9:30 AM EST Office Visit [facility] [address] [place] [address] Dustin Mcintyre MD Left inguinal [...] Elevated liver function tests 04/13/2018 Refill [facility] [address] [place] [address] Germán Bradley MD Medication Refill 12/22/2017 Telephone [facility] [address] [place] [address] Dustin Mcintyre MD Other 12/05/2017 8:00 AM EDT Office Visit [facility] [address] [facility] [place] [address] Germán Bradley MD Other epilepsy [...] 100 07/22/2017 1:00 PM EDT Office Visit [facility] [address] [facility] [place] [address] Germán Bradley MD Other epilepsy without status epilepticus, not intractable (HCC) (Primary Dx); Impulse control disorder; COPD, mild (HCC); Recurrent major depressive disorder, in full remission; Chest wall pain; Rotator cuff syndrome of left shoulder; JB (generalized anxiety disorder); Closed nondisplaced fracture of distal phalanx of finger, unspecified finger, initial encounter 07/08/2017 Patient Outreach [facility] [address] [place] [address] Jennifer Mccain LPN Care Transition; Care Management - Chart Review; ED Follow-Up Call 07/07/2017 9:44 PM EDT - 07/07/2017 10:25 PM EDT Emergency [facility] [address] [place] [address] Robbie Queen MD Rotator cuff strain, left, initial encounter (Primary Dx) Discharge Disposition: Home or Self Care 05/26/2017 9:28 PM EST - 05/26/2017 10:28 PM EST Emergency [facility] [address] [place] [address] Radha Lopez MD Closed nondisplaced fracture of distal phalanx of right ring finger, initial encounter (Primary Dx); Multiple abrasions Discharge Disposition: Retirement 05/06/2017 2:00 PM EST Office Visit [facility] [address] [place] [address] Dustin Mcintyre MD Well adult exam (Primary Dx); Other epilepsy without status epilepticus, not intractable (HCC); COPD, mild (HCC); Gastroesophageal reflux disease without esophagitis; Restless leg syndrome; Hyperlipidemia with target LDL less than 100; Cigarette nicotine dependence without complication; Impulse control disorder; Recurrent major depressive disorder, in full remission; Generalized anxiety disorder 04/08/2017 Refill [facility] [address] [place] [address] Dustin Mcintyre MD Medication Refill 04/08/2017 Refill [facility] [address] [place] [address] Germán Bradley MD Medication Refill 04/08/2017 Telephone [facility] [address] [place] [address] Dustin Mcintyre MD Other 02/27/2017 3:00 PM EST Office Visit [facility] [address] [place] [address] Germán Bradley MD Epidermal inclusion cyst (Primary Dx); Acute bacterial sinusitis; Chronic seasonal allergic rhinitis due to pollen; Lumbar sprain, initial encounter; Generalized osteoarthritis of multiple sites 01/16/2017 Telephone [facility] [address] [place] [address] Norma Greenfield MA Advice Only 01/07/2017 3:21 PM EDT - 01/07/2017 11:59 PM EDT Hospital Encounter [facility] PROCESSING [facility] [place] [address] Other epilepsy without status epilepticus, not intractable (HCC); Hyperlipidemia with target LDL less than 100 Discharge Disposition: Home or Self Care 01/07/2017 Telephone [facility] [address] [facility] [place] [address] Nelda Fritz, PROTECTIVE SERVICES CASE WORKER Orders 01/07/2017 9:00 AM EDT Office Visit [facility] [address] [place] [address] Dustin Mcintyre MD Gastroesophageal reflux disease without esophagitis (Primary Dx); COPD, mild (HCC); Hyperlipidemia with target LDL less than 100; Generalized anxiety disorder; Acute pain of right knee; Right knee injury, initial encounter; Other epilepsy without status epilepticus, not intractable (HCC); Major depressive disorder, recurrent episode, mild; Chronic seasonal allergic rhinitis due to pollen 11/10/2016 Refill [facility] [address] [place] [address] Germán Bradley MD Medication Refill 10/21/2016 Refill [facility] [address] [place] [address] Nelda Fritz, PROTECTIVE SERVICES CASE WORKER Medication Refill 10/05/2016 Refill [facility] [address] [place] [address] Germán Bradley MD Medication Refill 08/18/2016 Refill [facility] [address] [place] [address] Germán Bradley MD Medication Refill 08/07/2016 1:30 PM EDT - 08/07/2016 11:59 PM EDT Hospital Encounter [facility] [address] [place] [address] Acute pain of right knee; Right knee injury, initial encounter Discharge Disposition: Home or Self Care 08/07/2016 1:15 PM EDT Office Visit [facility] [address] [place] [address] Dustin Mcintyre MD Acute pain of right knee (Primary Dx); Right knee injury, initial encounter 07/24/2016 Telephone [facility] [address] [place] [address] Dustin Mcintyre MD Other 06/21/2016 Telephone [facility] [address] [place] [address] Nelda Fritz CMA Prior Authorization (nexium needs a PA) 06/12/2016 Telephone [facility] [address] [place] [address] Dustin Mcintyre MD Other 06/11/2016 7:45 AM EST - 06/11/2016 8:00 AM EST Surgery [facility] [address] [place] [address] Wang Vieira MD CARPAL TUNNEL RELEASE BILATERAL 06/11/2016 6:41 AM EST - 06/11/2016 8:24 AM EST Hospital Encounter [facility] [address] [place] [address] Wang Vieira MD Discharge Disposition: Home or Self Care 05/16/2016 1:15 PM EST Office Visit [facility] [address] [place] [address] Germán Bradley MD COPD, mild (HCC) (Primary Dx); Generalized anxiety disorder; Cigarette nicotine dependence without complication; Bilateral carpal tunnel syndrome 05/09/2016 Patient Outreach [facility] [address] [place] [address] Margie Mo LPN Care Management - Chart Review (Chart Review) 05/08/2016 1:42 PM EST - 05/08/2016 11:59 PM EST Hospital Encounter [facility] [address] [place] [address] Emg, Kiko Edg Bilateral carpal tunnel syndrome (Primary Dx) Discharge Disposition: Home or Self Care 05/06/2016 10:05 AM EST - 05/06/2016 11:59 PM EST Hospital Encounter [facility] [address] [place] [address] COPD, mild (HCC) Discharge Disposition: Home or Self Care 04/29/2016 2:30 PM EST Office Visit [facility] [address] [place] [address] Germán Bradley MD Well adult exam (Primary Dx); COPD, mild (HCC); Need for pneumococcal vaccination 04/01/2016 7:27 PM EST - 04/01/2016 11:59 PM EST Hospital Encounter [facility] LAB [facility] PROCESSING [facility] [place] [address] Memory loss; Hyperlipidemia with target LDL less than 100 Discharge Disposition: Home or Self Care 04/01/2016 Orders Only [facility] [address] [place] [address] Kinjal Bustillo RMA Gastroesophageal reflux disease without esophagitis (Primary Dx) 04/01/2016 2:30 PM EST Office Visit [facility] [address] [place] [address] Germán Bradley MD Need for influenza vaccination (Primary Dx); Generalized anxiety disorder; Hyperlipidemia with target LDL less than 100; Seasonal allergic rhinitis, unspecified allergic rhinitis trigger; Other epilepsy without status epilepticus, not intractable ([facility]); Restless leg syndrome; Major depressive disorder, recurrent episode, mild; Gastroesophageal reflux disease without esophagitis; COPD, mild ([facility]); Memory loss 02/20/2016 Refill [facility] [address] [facility] [place] [address] Germán Bradley MD Medication Refill 12/28/2015 Refill [facility] [address] [facility] [place] [address] Nelda Fritz CMA Medication Refill 11/30/2015 Patient Outreach [address] [address] Елена Alvares RMA ED Follow-up 11/28/2015 Patient Outreach [address] [address] Margie Mo LPN Care Management - Chart Review (Chart Review-Patient discharged from ED 11/27/2015) 11/27/2015 5:23 PM EDT - 11/27/2015 6:28 PM EDT [facility] [address] [place] [address] Michelle Shirley MD Right-sided low back pain without sciatica (Primary Dx) Discharge Disposition: Home or Self Care 11/21/2015 Patient Outreach [address] [address] Margie Mo LPN Care Management - Chart Review (Chart Review-Patient discharged from ED 11/20/2015) 11/20/2015 Refill [facility] [address] [address] Germán Bradley MD Medication Refill 11/20/2015 3:28 PM EDT - 11/20/2015 4:01 PM EDT Emergency [facility] [address] [place] [address] Devora Lindsey MD Fall, initial encounter (Primary Dx); Cervical strain, initial encounter; Abrasions of multiple sites; Right shoulder strain, initial encounter Discharge Disposition: Home or Self Care 11/16/2015 8:07 PM EDT - 11/16/2015 11:59 PM EDT Hospital Encounter [facility] LAB [facility] PROCESSING [facility] [place] [address] Other epilepsy without status epilepticus, not intractable (HCC); Hyperlipidemia with target LDL less than 100 Discharge Disposition: Home or Self Care 11/16/2015 Telephone [facility] [address] [place] [address] Nelda Fritz CMA Prior Authorization ([email or web address] needs a PA) 11/16/2015 3:00 PM EDT Office Visit [address] [place] [address] Germán Bradley MD Chronic obstructive pulmonary disease with acute exacerbation (HCC) (Primary Dx); Hyperlipidemia with target LDL less than 100; Generalized anxiety disorder; Restless leg syndrome; Major depressive disorder, recurrent episode, mild; Other epilepsy without status epilepticus, not intractable (HCC); Gastroesophageal reflux disease without esophagitis; Seasonal allergies; Acute bacterial sinusitis 10/21/2015 Refill [facility] [address] [place] [address] Germán Bradley MD Medication Refill 10/21/2015 Refill [facility] [address] [facility] [place] [address] Dustin Mcintyre MD Medication Refill 09/21/2015 Refill [facility] [address] [place] [address] Dustin Mcintyre MD Medication Refill 09/15/2015 Telephone [facility] [address] [place] [address] Germán Bradlye MD Other 09/04/2015 Telephone [facility] [address] [place] [address] Nelda Fritz CMA Referral 08/23/2015 Refill [facility] [address] [place] [address] Germán Bradley MD Medication Refill 08/22/2015 Telephone [facility] [address] [place] [address] Germán Bradley MD Other 08/17/2015 Telephone [facility] [address] [place] [address] Germán Bradley MD Letter for School/Work 08/08/[address] [place] [address] Nelda Fritz [facility] Prior Authorization (atarax needs a PA) 08/07/2015 Refill [facility] [address] [place] [address] Germán Bradley MD Medication Refill 07/20/2015 Refill [facility] [address] [place] [address] Germán Bradley MD Medication Refill 07/05/2015 Refill [facility] [address] [place] [address] Dustin Mcintyre MD Medication Refill 06/26/2015 Refill [facility] [address] [place] [address] Germán Bradley MD Medication Refill 06/26/2015 Patient Outreach [facility] [address] [place] [address] Елена Alvares RMA ED Follow-up 06/26/2015 Patient Outreach [facility] [address] [place] [address] Margie Mo LPN Care Management - Chart Review (Discharged from ED 06/23/2015 Chart Reviewed) 06/23/2015 4:34 PM EST - 06/23/2015 6:22 PM EST Emergency [facility] [address] [place] [address] Elina Hall MD Pain of left lower extremity (Primary Dx) Discharge Disposition: Home or Self Care 06/20/2015 8:30 AM EST - 06/20/2015 9:30 AM EST Surgery [facility] [address] Crow Love MD SHOULDER ARTHROSCOPY SUBACROMIAL DECOMPRESSION /FULL MILLY 06/20/2015 7:52 AM EST Anesthesia Event ED[facility] [place] [address] Jerson Can DO Mucenski, Cathleen M, MD 06/20/2015 6:32 AM EST - 06/20/2015 10:47 AM EST Hospital Encounter EDG [facility] [place] [address] Crow Love MD Discharge Disposition: Home or Self Care 05/10/2015 Refill [facility] [address] [place] [address] Dustin Mcintyre MD Medication Refill 2015 10:00 AM EST Office Visit [facility] [address] [place] [address] Germán Bradley MD Well adult (Primary Dx); Cigarette nicotine dependence without complication 04/20/2015 3:26 PM EST - 04/20/2015 11:59 PM EST Hospital Encounter [facility] LAB [facility] PROCESSING [facility] [place] [address] Other epilepsy without status epilepticus, not intractable (HCC); Hyperlipidemia with target LDL less than 100 Discharge Disposition: Home or Self Care 04/20/2015 Telephone [facility] [address] [place] [address] MaynorarturoЕлена MARYANNESabine Anxiety 04/20/2015 9:30 AM EST Office Visit [facility] [address] [place] [address] Germán Bradley MD Chronic obstructive pulmonary disease with acute exacerbation (HCC) (Primary Dx); Generalized anxiety disorder; Gastroesophageal reflux disease without esophagitis; Restless leg syndrome; Hyperlipidemia with target LDL less than 100; Major depressive disorder, recurrent episode, mild; Other epilepsy without status epilepticus, not intractable (HCC); Impingement syndrome, shoulder, right 04/12/2015 Refill [facility] [address] [place] [address] Dustin Mcintyre MD Medication Refill 04/11/2015 Refill [facility] [address] [place] [address] Dustin Mcintyre MD Medication Refill 04/11/2015 Refill [facility] [address] [place] [address] Dustin Mcintyre MD Medication Refill 03/30/2015 11:00 AM EST Office Visit [facility] [address] [place] [address] Germán Bradley MD Shoulder tendonitis, right (Primary Dx); Primary osteoarthritis of right shoulder 03/23/2015 Orders Only [facility] [address] [place] [address] Tu Rivera MD Seizure disorder (HCC) (Primary Dx) 03/22/2015 11:10 AM EST - 03/22/2015 11:59 PM [facility] Hospital Encounter [facility] [address] [place] [address] Dustin Mcintyre MD Right shoulder pain Discharge Disposition: Home or Self Care 03/21/2015 Orders Only [facility] [address] [place] [address] Елена Alvares RMA Chronic obstructive pulmonary disease with acute exacerbation (HCC) (Primary Dx); Generalized anxiety disorder 03/20/2015 Refill [facility] [address] [place] [address] Dustin Mcintyre MD Medication Refill 03/17/2015 10:15 AM EST Office Visit [facility] [address] [place] [address] Dustin Mcintyre MD Right shoulder pain (Primary Dx) 02/24/2015 11:00 AM EST Office Visit [facility] [address] [place] [address] Dustin Mcintyre MD Generalized anxiety disorder (Primary Dx); Trapezius strain, unspecified laterality, initial encounter; Medial epicondylitis of elbow, right 01/24/2015 Refill [facility] [address] [place] [address] Dustin Mcintyre MD Medication Refill 01/24/2015 Refill [facility] [address] [place] [address] Nelda Fritz, PROTECTIVE SERVICES CASE WORKER Medication Refill 01/23/2015 Refill [facility] [address] [place] [address] Nelda Fritz Veronica, PROTECTIVE SERVICES CASE WORKER Medication Refill 12/21/2014 Refill [facility] [address] [place] [address] Dustin Mcintyre MD Medication Refill 11/04/2014 3:00 PM EDT - 11/04/2014 11:59 PM EDT Hospital Encounter [facility] LAB [facility] PROCESSING [facility] [place] [address] [address] Other epilepsy without status epilepticus, not intractable ([facility]); Hyperlipidemia LDL goal < 100 Discharge Disposition: Home or Self Care 11/04/2014 9:15 AM EDT Office Visit [address] [place] [address] Dustin Mcintyre MD Generalized anxiety disorder (Primary Dx); Asthma, unspecified asthma severity, uncomplicated; COPD (chronic obstructive pulmonary disease) ([facility]); Restless leg syndrome; Gastroesophageal reflux disease without esophagitis; Other epilepsy without status epilepticus, not intractable ([facility]); Hyperlipidemia LDL goal < 100 11/01/[address] [place] [address] Dustin Mcintyre MD Medication Refill 11/01/[address] [place] [address] Dustin Mcintyre MD Medication Refill 10/31/[address] [place] [address] Dustin Mcintyre MD Medication Refill 10/14/2014 Refill [facility] [address] [place] [address] Dustin Mcintyre MD Medication Refill 08/29/[address] [place] [address] Nelda Fritz CMA Medication Management (atrarax needs a pa) 08/10/[address] [place] [address] Nelda Fritz CMA Medication Management (hyrdoxyzine needs a PA) 07/13/[address] [place] [address] Nelda Fritz CMA Medication Problem 07/08/2014 9:28 AM EDT - 07/08/2014 11:59 PM EDT Hospital Encounter [facility] Physical Therapy [address] [place] [address] Shanice Ybarra, PT Discharge Disposition: Home or Self Care 07/01/2014 10:04 AM EDT - 07/01/2014 11:59 PM EDT Hospital Encounter [facility] Physical Therapy [address] [place] [address] Shanice Ybarra, PT Discharge Disposition: Home or Self Care 06/28/2014 9:27 AM EDT - 06/28/2014 11:59 PM EDT Hospital Encounter [facility] Physical Therapy [address] [place] [address] Margarita Doran, PT Discharge Disposition: Home or Self Care 06/21/2014 8:15 AM EDT - 06/21/2014 8:45 AM EDT Surgery [place] [place] [address] [address] Crow Love MD KNEE ARTHROSCOPY MENISCECTOMY/REPAIR (ALSO COVERS ARTHROSCOPIC INCISION AND DRAINAGE/DEBRIDEMENT) 06/21/2014 7:50 AM EDT Anesthesia Event [place] [place] [address] [address] Artem Naqvi MD Brannon, Daniel Todd, DO 06/21/2014 6:35 AM EDT - 06/21/2014 10:32 AM EDT Hospital Encounter [facility] [place] [address] [address] Crow Love MD Discharge Disposition: Home or Self Care 06/08/2014 10:30 AM EST Office Visit [facility] [address] [place] [address] Dustin Mcintyre MD Pre-op exam (Primary Dx); Arthritis of knee; Folliculitis; Epilepsy (HCC); Restless leg syndrome; JB (generalized anxiety disorder); Hearing loss in left ear; GERD (gastroesophageal reflux disease) 05/25/2014 Telephone [facility] [address] [place] [address] Dustin Mcintyre MD Results 05/21/2014 Refill [facility] [address] [place] [address] Dustin Mcintyre MD Medication Refill 05/20/2014 7:41 PM EST - 05/20/2014 11:59 PM EST Hospital Encounter [facility] LAB [facility]ELV[facility] PROCESSING [facility] [place] [address] Hypernatremia; Pre-op testing Discharge Disposition: Home or Self Care 05/20/2014 Orders Only [facility] [address] [place] [address] Lay Minor MD Hypernatremia (Primary Dx); Pre-op testing 05/20/2014 11:00 AM EST Office Visit [facility] [address] [facility] [place] [address] Dustin Mcintyre MD Bronchitis (Primary Dx); COPD exacerbation (HCC); Asthma exacerbation, moderate persistent; Chest wall pain; Vomiting; Hypernatremia 05/19/2014 Patient Outreach [facility] [address] [facility] [place] [address] Nasrin Perry, movie editor (ED f/u call ) 05/18/2014 11:12 AM EST - 05/18/2014 12:37 PM EST Emergency [facility] [address] [facility] [place] [address] Mariaelena Rossi MD Acute bronchitis (Primary Dx); Acute sinusitis; COPD (chronic obstructive pulmonary disease) (HCC) Discharge Disposition: Home or Self Care 2014 7:57 PM EST - 2014 11:59 PM EST Hospital Encounter [facility] KELVIN PROCESSING [facility] [place] [address] [address] Healthcare maintenance; Epilepsy (HCC) Discharge Disposition: Home or Self Care 2014 10:00 AM EST Office Visit [facility] [address] [facility] [place] [address] Dustin Mcintyre MD Epilepsy ([facility]) (Primary Dx); Generalized anxiety disorder; Hyperlipidemia LDL goal < 100; Restless leg syndrome; GERD (gastroesophageal reflux disease); Healthcare maintenance; COPD (chronic obstructive pulmonary disease) ([facility]) 04/01/2014 Telephone [facility] [address] [place] [address] Dustin Mcintyre MD Results 03/23/2014 11:00 AM EST Office Visit [facility] [address] [place] [address] Wheezing; SOB (shortness of breath) Discharge Disposition: Home or Self Care 03/18/2014 10:45 AM EST Office Visit [facility] [address] [place] [address] Dustin Mcintyre MD Wheezing (Primary Dx); SOB (shortness of breath) 03/17/2014 Telephone [facility] [address] [place] [address] Nelda Fritz CMA Medication Management (protonix bid needs a PA) 03/14/2014 Telephone [facility] [address] [place] [address] Dustin Mcintyre MD Medication Refill 03/08/2014 Telephone [facility] [address] [place] [address] Dustin Mcintyre MD Other 03/08/2014 11:20 AM EST - 03/08/2014 11:59 PM EST Hospital Encounter [facility] [address] [place] [address] Allergic rhinitis, cause unspecified (Primary Dx); Epilepsy ([facility]); Hearing loss in left ear; GERD (gastroesophageal reflux disease); JB (generalized anxiety disorder); FHx: prostate cancer; FHx: lung cancer; Nicotine dependence; Restless leg syndrome Discharge Disposition: Home or Self Care 03/08/2014 10:45 AM EST Office Visit [facility] [address] [place] [address] Dustin Mcintyre MD Hyperlipidemia LDL goal < 100 (Primary Dx); GERD (gastroesophageal reflux disease); Asthma, unspecified asthma severity, uncomplicated; Epilepsy (HCC); Generalized anxiety disorder; Restless leg syndrome 02/12/2014 Refill [facility] [address] [place] [address] Dustin Mcintyre MD Medication Refill 02/04/2014 8:00 AM EDT - 02/04/2014 9:52 AM EDT Surgery [facility] [address] [place] [address] Los Gordon MD FUNCTIONAL ENDOSCOPIC SINUS SURGERY/SINOSCOPY 02/04/2014 6:27 AM EDT - 02/04/2014 11:53 AM EDT Hospital Encounter [facility] SAME DAY SURGERY [address] [place] [address] Los Gordon MD Discharge Disposition: Home or Self Care 02/02/2014 11:00 AM EDT - 02/02/2014 11:59 PM EDT Hospital Encounter [facility] PRE-ADMIT TESTING [address] [place] [address] Pat, Clarice Discharge Disposition: Home or Self Care 01/24/2014 11:29 AM EDT - 01/24/2014 11:59 PM EDT Hospital Encounter [facility] [address] [place] [address] Esophageal reflux (Primary Dx); Dyspepsia and other specified disorders of function of stomach; Dysphagia, unspecified(787.20) Discharge Disposition: Home or Self Care 11/19/2013 10:30 AM EDT Office Visit [facility] [address] [place] [address] Dustin Mcintyre MD Laceration of wrist, left, subsequent encounter (Primary Dx) 11/13/2013 Refill [facility] [address] [place] [address] Marcela Ding MD Medication Refill 11/12/2013 6:42 PM EDT - 11/12/2013 7:45 PM EDT Emergency [facility] [address] [facility] [place] [address] Jerson Go MD Wrist laceration, left, initial encounter (Primary Dx) Discharge Disposition: Home or Self Care 11/03/[address] [place] [address] Chyna Mcgraw MA Referral (ORTHO) 11/01/2013 Orders Only [address] [place] [address] Marcela Ding MD Knee pain, right (Primary Dx) 11/01/2013 8:55 AM EDT - 11/01/2013 11:59 PM EDT Hospital Encounter [facility] [address] [place] [address] Dustin Mcintyre MD Right knee pain; Recurrent right knee instability Discharge Disposition: Home or Self Care 10/29/[address] [place] [address] Dustin Mcintyre MD Other 10/28/[address] [address] Dustin Mcintyre MD Referral 10/25/2013 4:43 PM EDT - 10/25/2013 11:59 PM EDT Hospital Encounter [facility] LAB [facility] [place] [address] Hyperlipidemia LDL goal < 100 (Primary Dx); Epilepsy (HCC); Screening PSA (prostate specific antigen); Family history of prostate cancer; FHx: prostate cancer; Other nonspecific abnormal serum enzyme levels Discharge Disposition: Home or Self Care 10/25/[address] [place] [address] Nelda Fritz CMA Medication Management (Nexium bid dosing needs a PA) 10/25/2013 10:30 AM EDT Office Visit [facility] [address] [place] [address] Dustin Mcintyre MD Epilepsy ([facility]) (Primary Dx); Asthma, unspecified asthma severity, uncomplicated; Generalized anxiety disorder; JB (generalized anxiety disorder); GERD (gastroesophageal reflux disease); Family history of prostate cancer; Hyperlipidemia LDL goal < 100; FHx: prostate cancer; Hearing loss in left ear; Restless leg syndrome; Right knee pain; Recurrent right knee instability; Screening PSA (prostate specific antigen) 10/18/2013 Refill [facility] [address] [place] [address] Germán Bradley MD Medication Refill 10/13/2013 10:00 AM EDT Office Visit [facility] [address] [place] [address] Tu Rivera MD Epilepsy ([facility]) (Primary Dx); Hearing loss in left ear; Nicotine dependence; Restless leg syndrome 09/10/2013 Refill [facility] [address] [place] [address] Germán Bradley MD Medication Refill 08/30/2013 Refill [facility] [address] [place] [address] Nelda Fritz, PROTECTIVE SERVICES CASE WORKER Medication Refill 08/26/2013 Telephone [facility] [address] [place] [address] Nelda Fritz, PROTECTIVE SERVICES CASE WORKER Referral 08/26/2013 Refill [facility] [address] [place] [address] Germán Bradley MD Medication Refill 08/26/2013 11:20 AM EDT - 08/26/2013 11:59 PM EDT Hospital Encounter [facility] [address] [place] [address] Yvrose Palma, PT Discharge Disposition: Home or Self Care 08/17/2013 1:17 PM EDT - 08/17/2013 11:59 PM EDT Hospital Encounter [facility] [address] [place] [address] Yvrose Palma, PT Discharge Disposition: Home or Self Care 08/16/2013 Refill [facility] [address] [place] [address] Germán Bradley MD Medication Refill 08/16/2013 Refill [facility] [address] [place] [address] Dustin Mcintyre MD Medication Refill 08/12/2013 Refill [facility] [address] [place] [address] Marcela Ding MD Medication Refill 08/12/2013 Refill [facility] [address] [place] [address] Germán Bradley MD Medication Refill 08/12/2013 Refill [facility] [address] [place] [address] Dustin Mcintyre MD Medication Refill 07/27/2013 Telephone [facility] [address] [place] [address] Nelda Fritz CMA Medication Refill 07/23/2013 8:30 AM EDT - 07/23/2013 11:59 PM EDT Hospital Encounter [facility] [address] [place] [address] Los Gordon MD Sensorineural hearing loss, asymmetrical; Abnormal auditory perception, unspecified Discharge Disposition: Home or Self Care 07/07/2013 Refill [facility] [address] [place] [address] Nelda Fritz CMA Medication Refill 06/29/2013 2:00 PM EDT - 06/29/2013 11:59 PM EDT Hospital Encounter [facility] [address] [place] [address] Mag Becerra [employer] ADMIN[employer]ATOR Discharge Disposition: Home or Self Care 06/25/2013 Refill [facility] [address] [place] [address] Dustin Mcitnyre MD Medication Refill 06/01/2013 Telephone [facility] [address] [place] [address] Germán Bradley MD Labs Only 05/31/2013 4:54 PM EST - 05/31/2013 11:59 PM EST Hospital Encounter [facility] [place] [address] Well adult exam; Epilepsy (HCC) Discharge Disposition: Home or Self Care 05/31/2013 10:00 AM EST - 05/31/2013 4:53 PM EST Hospital Encounter [facility] [address] [place] [address] COPD (chronic obstructive pulmonary disease) (HCC); FHx: lung cancer; Cough Discharge Disposition: Home or Self Care 05/31/2013 9:15 AM EST Office Visit [facility] [address] [place] [address] Germán Bradley MD Well adult exam (Primary Dx); COPD (chronic obstructive pulmonary disease) (HCC); Epilepsy (HCC); GERD (gastroesophageal reflux disease); JB (generalized anxiety disorder); Atypical moles; FHx: prostate cancer; FHx: lung cancer; Cough; Tobacco abuse 05/26/2013 Telephone [facility] [address] [place] [address] Dustin Mcintyre MD Epistaxis 05/24/2013 Refill [facility] [address] [place] [address] Germán Bradley MD Medication Refill 05/21/2013 Refill [facility] [address] [place] [address] Dustin Mcintyre MD Medication Refill 05/21/2013 Refill [facility] [address] [place] [address] Germán Bradley MD Medication Refill 05/03/[address] [place] [address] Catrina Nelda Veronica [facility] Medication Refill 04/29/2013 10:15 AM EST Office Visit [facility] [address] [place] [address] Germán Bradley MD JB (generalized anxiety disorder) (Primary Dx); Back strain 04/15/[address] [place] [address] Marcela Ding MD Medication Refill 04/15/[address] [place] [address] Germán Bradley MD Medication Refill 03/24/[address] [place] [address] Veronica Freed MA Anxiety 03/16/[address] [place] [address] Chyna Mcgraw MA Referral (ORTHO) 03/15/2013 1:00 PM EST Office Visit [facility] [address] [place] [address] Dustin Mcintyre MD Arthralgia of shoulder region, right (Primary Dx); Arthritis of elbow, right; GERD (gastroesophageal reflux disease); RLS (restless legs syndrome); Epilepsy (HCC); Bipolar affective disorder (HCC); Generalized anxiety disorder; Asthma 03/14/2013 Refill [facility] [address] [place] [address] Germán Bradley MD Medication Refill 03/05/2013 Telephone [facility] [address] [place] [address] Dustin Mcintyre MD Medication Change 03/02/2013 2:15 PM EST Office Visit [facility] [address] [place] [address] Dustin Mcintyre MD Shoulder pain (Primary Dx) 03/02/2013 1:27 PM EST - 03/02/2013 11:59 PM [facility] Hospital Encounter [facility] [address] [place] [address] Kathy Wasserman, PT Discharge Disposition: Home or Self Care 03/01/2013 Refill [facility] [address] [place] [address] Germán Bradley MD Medication Refill 03/01/2013 Refill [facility] [address] [place] [address] Dustin Mcintyre MD Medication Refill 03/01/2013 Refill [facility] [address] [place] [address] Marcela Ding MD Medication Refill 02/27/2013 Telephone [facility] [address] [place] [address] Germán Bradley MD Other 02/26/2013 10:07 AM EST - 02/26/2013 11:59 PM EST Hospital Encounter [facility] [address] [place] [address] Kathy Wasserman, PT Discharge Disposition: Home or Self Care 02/18/2013 12:51 PM EST - 02/18/2013 11:59 PM EST Hospital Encounter [facility] [address] [place] [address] Kathy Wasserman, PT Discharge Disposition: Home or Self Care 02/12/2013 Refill [facility] [address] [place] [address] Dustin Mcintyre MD Medication Refill 02/10/2013 9:06 AM EDT - 02/10/2013 11:59 PM EDT Hospital Encounter [address] [place] [address] Kathy Wasserman, PT Discharge Disposition: Home or Self Care 02/05/2013 12:26 PM EDT - 02/05/2013 11:59 PM EDT Hospital Encounter [address] [place] [address] Kathy Wasserman, PT Discharge Disposition: Home or Self Care 02/01/2013 Refill [facility] [address] [place] [address] Marcela Ding MD Medication Refill 01/29/2013 Telephone [facility] [address] [place] [address] Germán Bradley MD Medication Refill 01/18/2013 8:30 AM EDT - 01/18/2013 9:30 AM EDT Surgery [facility] [address] [place] [address] Crow Love MD SHOULDER ARTHROSCOPY LABRAL/BANKART/ BICEP TENODESIS (COVERS SUPERIOR LABRAL ANTERIOR POSTERIOR REPAIR/SLAP) 01/18/2013 5:21 AM EDT - 01/18/2013 12:50 PM EDT Hospital Encounter [facility] SAME DAY SURGERY [address] [place] [address] Crow Love MD Discharge Disposition: Home or Self Care 01/14/2013 Telephone [facility] [address] [address] Germán Bradley MD Medication Reaction 01/08/2013 2:00 PM EDT Office Visit [facility] [address] [place] [address] Germán Bradley MD Infected inclusion cyst (Primary Dx); RLS (restless legs syndrome) 12/25/2012 12:38 PM EDT - 12/25/2012 11:59 PM EDT Hospital Encounter [facility] [address] [place] [address] Germán Bradley MD Rotator cuff syndrome of left shoulder Discharge Disposition: Home or Self Care 12/20/2012 9:52 AM EDT - 12/20/2012 11:16 AM EDT Emergency [facility] [place] [address] Pino Maxwell MD Foot sprain (Primary Dx) Discharge Disposition: Home or Self Care 12/16/2012 1:45 PM EDT Office Visit [facility] [address] [place] [address] Germán Bradley MD Rotator cuff syndrome of left shoulder (Primary Dx); Need for influenza vaccination 12/15/2012 Telephone [facility] [address] [place] [address] Germán Bradley MD Referral 12/11/[address] [place] [address] Marcela Ding MD Medication Refill 12/11/2012 Refill [facility] [address] [place] [address] Germán Bradley MD Medication Refill 12/02/2012 11:17 AM EDT - 12/02/2012 11:59 PM EDT Hospital Encounter [facility] Physical Therapy [facility] [address] [place] [address] Chyna Mathis, [place] Discharge Disposition: Home or Self Care 12/02/2012 10:00 AM EDT Office Visit [facility] [address] [place] [address] Germán Bradley MD Seborrhea (Primary Dx); Cervical lymphadenitis 11/19/2012 Refill [facility] [address] [place] [address] Germán Bradley MD Medication Refill 11/18/2012 10:41 AM EDT - 11/18/2012 11:59 PM EDT Hospital Encounter [facility] Physical Therapy [facility] [address] [place] [id number] Shanice Ybarra PT Rotator cuff syndrome (Primary Dx) Discharge Disposition: Home or Self Care 11/09/2012 12:11 PM EDT - 11/09/2012 11:59 PM EDT Hospital Encounter [facility] [address] [place] [address] Scoliosis; Back pain Discharge Disposition: Home or Self Care 11/09/2012 11:30 AM EDT Office Visit [facility] [address] [place] [address] Germán Bradley MD Rotator cuff syndrome Bilateral (Primary Dx) 11/05/2012 [address] [place] [address] Germán Bradley MD Back Pain 11/03/2012 [address] [place] [address] Nelda Fritz CMA Back Pain 11/02/2012 5:12 PM EDT - 11/02/2012 11:59 PM EDT Hospital Encounter [facility] [place] [address] Epilepsy (HCC) Discharge Disposition: Home or Self Care 11/02/2012 9:00 AM EDT Office Visit [facility] [address] [place] [address] Germán Bradley MD LBP (low back pain) (Primary Dx); Neck pain; Shoulder pain; JB (generalized anxiety disorder); Epilepsy (HCC) 10/31/2012 Refill [facility] [address] [place] [address] Nelda Fritz CMA Medication Refill 10/26/2012 Refill [facility] [place] [address] [place] [address] Germán Bradley MD Medication Refill 10/20/2012 Telephone [facility] [address] [place] [address] Dustin Mcintyre MD Other 10/14/2012 Telephone [facility] [place] [address] [place] [address] Dustin Mcintyre MD Medication Refill; Medication Change 10/09/2012 5:34 PM EDT - 10/09/2012 11:59 PM EDT Hospital Encounter [facility] LAB [facility] [place] [address] Epilepsy ([facility]); Generalized anxiety disorder Discharge Disposition: Home or Self Care 10/09/2012 Telephone [facility] [place] [address] [place] [address] Norma Greenfield MA Medication Change 10/09/2012 8:30 AM EDT Office Visit [facility] [address] [place] [address] Dustin Mcintyre MD Epilepsy (HCC) (Primary Dx); GERD (gastroesophageal reflux disease); Asthma; Bipolar affective disorder (HCC); Generalized anxiety disorder; ED (erectile dysfunction) 06/20/2012 Refill [facility] [place] [address] [place] [address] Marcela Ding MD Medication Refill 05/01/2012 1:57 PM EST - 05/01/2012 11:59 PM EST Hospital Encounter [facility] Physical Therapy [facility] [address] [place] [phone] Kathy Wasserman, PT Discharge Disposition: Home or Self Care 04/24/2012 1:47 PM EST - 04/24/2012 11:59 PM EST Hospital Encounter [facility] [address] [place] [address] Kathy Wasserman, PT Discharge Disposition: Home or Self Care 04/17/2012 1:01 PM EST - 04/17/2012 11:59 PM EST Hospital Encounter [facility] [address] [place] [address] Kathy Wasserman, PT Discharge Disposition: Home or Self Care 04/16/2012 Refill [facility] [address] [place] [address] Marcela Ding MD Medication Refill 04/05/2012 5:08 PM EST - 04/05/2012 6:19 PM EST Emergency [facility] [address] [place] [address] Roshan Sanchez MD Chronic knee pain (Primary Dx) Discharge Disposition: Home or Self Care 03/09/2012 Refill [facility] [address] [place] [address] Marcela Ding MD Medication Refill 03/03/2012 Refill [facility] [address] [address] Marcela Ding MD Medication Refill 02/28/2012 8:15 PM EST - 02/28/2012 11:59 PM EST Hospital Encounter [facility] PROC[facility]ING [facility] [place] [address] Epilepsy (HCC); Bipolar affective disorder (HCC); Abdominal pain Discharge Disposition: Home or Self Care 02/28/2012 10:20 AM EST Office Visit [facility] [address] [place] [address] Germán Bradley MD Epilepsy (HCC); Abdominal pain; Bipolar affective disorder (HCC); Asthma; Knee pain, left 01/17/2012 Telephone [facility] [address] [place] [address] Marcela Ding MD Medication Refill 12/21/2011 Refill [facility] [address] [place] [address] Germán Bradley MD Medication Refill 12/02/2011 7:06 PM EDT - 12/02/2011 11:59 PM EDT Hospital Encounter [facility] PROCESSING [facility] [place] [address] Bipolar affective disorder (HCC); Encounter for long-term (current) use of medications Discharge Disposition: Home or Self Care 12/02/2011 10:20 AM EDT Office Visit [facility] [address] [place] [address] Dustin Mcintyre MD Knee pain, left (Primary Dx); Epilepsy (HCC); Bipolar affective disorder (HCC); Asthma; COPD (chronic obstructive pulmonary disease) (HCC); Anxiety; Encounter for long-term (current) use of medications 10/31/2011 Refill [facility] [address] [place] [address] Germán Bradley MD Medication Refill 10/17/2011 [address] [place] [address] Marcela Ding MD Other 10/01/2011 3:24 PM EDT - 10/01/2011 4:31 PM EDT Emergency [facility] [address] [place] [address] Mariaelena Rossi MD Contusion of third finger, right; Left elbow contusion; Fall Discharge Disposition: Home or Self Care 09/14/2011 Refill [facility] [address] [place] [address] Germán Bradley MD Medication Refill 08/23/2011 9:20 AM EDT Office Visit [facility] [address] [place] [address] Germán Bradley MD Osteoarthritis (Primary Dx); Asthma; Epilepsy (HCC); Arthritis shoulder and knee; GERD (gastroesophageal reflux disease); Bipolar affective disorder (HCC); CTS (carpal tunnel syndrome) 08/07/2011 12:58 PM EDT - 08/07/2011 2:03 PM EDT Emergency [facility] [address] [place] [address] Alfie Perez MD Carpal tunnel syndrome of right wrist; Rotator cuff injury Discharge Disposition: Home or Self Care 07/10/2011 Telephone [facility] [address] [facility] [place] [address] Germán Bradley MD Other 07/02/2011 [address]phone [address] [place] [address] Nelda Fritz, NIESHA Other (PA for celexa) 06/28/2011 9:51 AM EDT - 06/28/2011 11:59 PM EDT Hospital Encounter [facility] [address] [place] [address] Germán Bradley MD TMJ (dislocation of temporomandibular joint); Jaw pain; Dental decay Discharge Disposition: Home or Self Care 06/28/2011 9:20 AM EDT Office Visit [address] [place] [address] Germán Bradley MD Bipolar affective disorder (HCC); Anxiety; TMJ (dislocation of temporomandibular joint); Jaw pain; Dental decay 06/11/2011 Telephone [facility] [address] [facility] [place] [address] Marcela Ding MD Medication Refill 06/03/2011 8:09 PM EST - 06/03/2011 11:59 PM EST Hospital Encounter [facility] [place] [address] Bipolar affective disorder (HCC); Epilepsy (HCC) Discharge Disposition: Home or Self Care 06/03/2011 1:00 PM EST Office Visit [facility] [address] [place] [address] Germán Bradley MD Bipolar affective disorder (HCC); Asthma; Epilepsy (HCC) 05/18/2011 Refill [facility] [address] [place] [address] Germán Bradley MD Medication Refill 05/03/2011 Telephone [facility] [address] [place] [address] Nelda Fritz CMA Other 05/03/2011 10:50 AM EST Office Visit [facility] [address] [place] [address] Germán Bradley MD Asthma (Primary Dx); Side pain; Abdominal wall pain; Bipolar affective disorder (HCC); Epilepsy (HCC) 04/17/2011 Refill [facility] [address] [place] [address] Germán Bradley MD Medication Refill 03/18/2011 Telephone [facility] [address] [place] [address] Cleopatra Duran 02/18/2011 2:20 PM EST - 02/18/2011 11:59 PM EST Hospital Encounter [facility] Physical [address] [place] [address] Chyna Mathis, PT Discharge Disposition: Home or Self Care 02/11/2011 2:30 PM EDT - 02/11/2011 11:59 PM EDT Hospital Encounter [facility] Physical [address] [place] [address] Chyna Mathis, PT Discharge Disposition: Home or Self Care 02/04/2011 2:24 PM EDT - 02/04/2011 11:59 PM EDT Hospital Encounter [facility] Physical Therapy [facility] [address] [place] [address] Chyna Mathis, [place] Discharge Disposition: Home or Self Care 01/11/2011 Telephone [facility] [place] [address] [place] [address] Marcela Ding MD Other 12/28/2010 Telephone [facility] [place] [address] [place] [address] Ipregan Lucy K Rectal Bleeding 12/19/2010 2:51 PM EDT - 12/19/2010 11:59 PM EDT Hospital Encounter [facility] PROCESSING [facility] [place] [address] Elevated glucose Discharge Disposition: Home or Self Care 12/19/2010 10:30 AM EDT Office Visit [facility] [place] [address] [place] [address] Germán Bradley MD Bipolar affective disorder (HCC); Epilepsy (HCC); Asthma; AR (allergic rhinitis); GERD (gastroesophageal reflux disease); Arthritis shoulder and knee; Elevated glucose 12/14/2010 Telephone [facility] [address] [place] [address] Ipregan Lucy K Medication Refill 12/14/2010 Refill [place] [address] [place] [address] Germán Bradley MD Medication Refill 12/12/2010 1:22 PM EDT - 12/12/2010 2:55 PM EDT Emergency [facility] [address] [place] [address] Ty Griffiths DO Fibula fracture Discharge Disposition: Home or Self Care 12/08/2010 Telephone [facility] [address] [place] [address] Inge Quinn, RMA Results 11/21/2010 8:29 PM EDT - 11/21/2010 11:59 PM EDT Hospital Encounter EDG LAB KELVIN PROCESSING [facility] [place] [id number] Lipid screening; Epilepsy (HCC); Encounter for long-term (current) use of medications Discharge Disposition: Home or Self Care 11/21/2010 10:30 AM EDT Clinical Support [facility] [place] [address] Oralia Cruz Sabine Bipolar affective disorder (HCC); Epilepsy (HCC); Lipid screening; Encounter for long-term (current) use of medications 11/09/2010 [address] [place] [address] Germán Bradley MD Medication Refill 07/31/2010 2:00 PM EDT Office Visit [facility] [place] [address] Germán Bradley MD Asthma; Bronchitis; Rotator cuff syndrome 07/30/2010 Telephone [facility] [address] [place] [address] Lucy Redman 05/02/2010 11:30 AM EST Office Visit [facility] [place] [address] Germán Bradley MD Epilepsy (HCC); Bipolar affective disorder (HCC); Asthma; COPD (chronic obstructive pulmonary disease) (HCC); GERD (gastroesophageal reflux disease); Osteoarthritis 04/30/2010 10:08 AM EST - 04/30/2010 11:59 PM EST Hospital Encounter EDG LAB KELVIN PROCESSING [facility] [place] [id number] Marcela Ding MD Encounter for long-term (current) use of other medications; Epilep NOS w/o intr epil; Bipolar disorder NOS Discharge Disposition: Home or Self Care 04/30/2010 9:50 AM EST Clinical Support [facility] [place] [address] FrancoiseArabellaNellymarlon Reardon, RMA Epilepsy ([facility]); Bipolar affective disorder ([facility]) 2010 Telephone [facility] [address] [place] [address] Oralia Cruz Sabine, RMA Letter for School/Work ([place] [employer] form) 04/13/2010 Refill SEP [facility] [address] [place] [address] Germán Bradley MD Medication Refill 03/17/2010 Refill SEP [address] [place] [address] Germán Bradley MD Medication Refill 02/12/2010 Refill SEP [address] [place] [address] Germán Bradley MD Medication Refill 01/16/2010 11:10 AM EDT Office Visit [facility] [address] [place] [address] Germán Bradley MD COPD (chronic obstructive pulmonary disease) ([facility]); Osteoarthritis of knee 12/21/2009 Refill [facility] [address] [place] [address] Marcela Ding MD Medication Refill 12/07/2009 Refill [facility] [address] [place] [address] Dustin Mcintyre MD Medication Refill 11/07/2009 7:59 PM EDT - 11/07/2009 11:59 PM EDT Hospital Encounter HST SUWT EDG Germán Bradley MD 11/07/2009 3:20 PM EDT Office Visit [facility] [address] [place] [address] Germán Bradley MD PUD (peptic ulcer disease) (Primary Dx); Bipolar affective disorder (HCC); Asthma; AR (allergic rhinitis) 11/04/2009 10:43 PM EDT - 11/05/2009 12:41 AM EDT Emergency HST GES MICHELLET Ty Griffiths, DO 10/12/2009 12:01 AM EDT - 10/26/2009 1:28 PM EDT Hospital Encounter HST PT Germán Odom MD 10/25/2009 9:30 AM EDT Office Visit SEP [facility] [address] [place] [address] Germán Bradley MD AR (allergic rhinitis); GERD (gastroesophageal reflux disease); Rotator cuff syndrome; Bipolar affective disorder (HCC); Asthma; Epilepsy (HCC) 09/12/2009 12:01 AM EDT - 10/11/2009 11:59 PM EDT Hospital Encounter HST PT Marcela Villanueva MD Burke, Brennan C, MD 09/28/2009 Telephone SEP [facility] [address] [place] [address] Francoise, Nelly Reardon, RMA Medication Problem 09/27/2009 Telephone SEP [facility] [address] [facility] [place] [address] Veronica Freed MA Other 09/27/2009 1:20 PM EDT Office Visit [facility] [address] [place] [address] Germán Bradley MD Rotator cuff syndrome; AR (allergic rhinitis); GERD (gastroesophageal reflux disease) 09/14/2009 2:06 AM EDT - 09/14/2009 11:59 PM EDT Emergency HST GES GRTy Rodriguez, DO 08/24/2009 2:55 PM EDT - 09/11/2009 11:59 PM EDT Hospital Encounter HST PT Marcela Villanueva MD 09/05/2009 Telephone SEP [facility] [address] [place] [address] Germán Bradley MD Results 09/05/2009 Telephone SEP [facility] [address] [place] [address] Dustin Mcintyre MD Results 09/01/2009 12:01 AM EDT - 09/01/2009 11:59 PM EDT Hospital Encounter HST RADIOLOGY GRT Marcela Ding MD 08/26/2009 Telephone SEP [facility] [address] [place] [address] Germán Bradley MD Results 08/24/2009 3:04 PM EDT - 08/24/2009 11:59 PM EDT Hospital Encounter HST RADIOLOGY GRT Marcela Ding MD 08/24/2009 2:30 PM EDT Office Visit [facility] [address] [place] [address] Marcela Ding MD Shoulder pain (Primary Dx) 08/15/2009 Refill SEP [facility] [address] [place] [address] Nelda Fritz PROTECTIVE SERVICES CASE WORKER Medication Refill 07/25/2009 5:37 PM EDT - 07/25/2009 11:59 PM EDT Hospital Encounter HST SUWT EDG Dustin Mcintyre MD 07/25/2009 3:00 PM EDT Office Visit [facility] [address] [place] [address] Germán Bradley MD Rotator cuff syndrome; Epilepsy (HCC); Encounter for long-term (current) use of other medications 06/26/2009 8:46 AM EDT - 06/26/2009 11:59 PM EDT Hospital Encounter HST RADIOLOGY GRT Wang Ospina 06/15/2009 Telephone SEP [facility] [address] [place] [address] Germán Bradley MD Other 06/15/2009 2:00 PM EST Office Visit [facility] [address] [place] [address] Germán Bradley MD Shoulder pain; Bipolar affective disorder (HCC) 06/06/2009 Telephone SEP [facility] [address] [place] [address] Nelda Fritz, PROTECTIVE SERVICES CASE WORKER Seizures 05/30/2009 5:31 PM EST - 05/30/2009 11:59 PM EST Hospital Encounter HST EPIC CON UNK EDG Dustin Mcintyre MD 04/20/2009 Abstract SEP [facility] [address] [facility] 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 Epilepsy ([facility]); Bipolar affective disorder ([facility]); Depression, major ([facility]); Asthma; COPD (chronic obstructive pulmonary disease) ([facility]); Hearing loss in left ear; GERD (gastroesophageal [...] PM EDT Hospital Encounter HST LAB EDG Dusitn Mcintyre MD 11/20/2007 8:14 AM EDT - [...] PM EDT [facility] 01/25/1999 5:20 PM [...] EDT Hospital Encounter HST LAB EDG Koffi Cuninngham 11/02/1997 10:51 AM EDT - 11/02/1997 11:59 PM EDT Hospital Encounter HST EPIC CON UNK EDG [facility] 05/26/1997 6:49 PM EST - 05/26/1997 11:59 PM EST Emergency HST MAJOR ER EDG Ty Griffiths DO 12/26/1996 7:54 PM EDT - 12/26/1996 11:59 PM EDT Hospital Encounter HST EPIC CON UNK [facility]OV [facility] 10/18/1996 5:34 PM EDT - 10/18/1996 11:59 PM EDT Emergency HST EPIC CON UNK EDG Augustine Baldwin MD 10/11/1996 10:10 AM EDT - 10/11/1996 12:10 PM EDT Hospital Encounter HST Jaime Perez MD 03/13/1996 6:17 PM EST - 03/13/1996 11:59 PM EST Hospital Encounter HST EPIC CON UNK COV [facility] 01/21/1996 7:05 PM EDT - 01/21/1996 11:59 PM EDT Hospital Encounter HST EPIC CON UNK COV [facility] 01/01/1996 8:11 PM EDT - 01/06/1996 2:05 PM EDT Hospital Encounter HST BH2 Rosa Clark MD 12/26/1995 8:21 AM EDT - 12/26/1995 11:59 PM EDT Hospital Encounter HST EPIC CON UNK COV [facility] 10/26/1995 9:59 PM EDT - 10/30/1995 1:44 PM EDT Hospital Encounter HST BH2 Wang Rosales MD Cohen, Raymond L 10/12/1995 7:54 PM EDT - 10/12/1995 11:59 PM EDT Hospital Encounter HST EPIC CON UNK COV [facility] 10/04/1995 9:50 PM EDT - [...] 9 Active fluticasone (FLONASE) 50 mcg/actuation Nasl [place], SuspensionIndicati ons:Chronic seasonal allergic rhinitis due to [...] Mother 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 Smoking Status as of 12/31/2024 Tobacco Use Types Packs/Day Years Used Date [...] on file Medical Devices Implanted Type Area Junior Automation Engineer Device Identifier Shelf Expiration Date Model / Serial / Lot [place] Lupine Br W/Dual Suture Orthocord - [id number] Implanted:Qty : 1 on 01/18/2013 by Crow Love MD at [facility] Left: Shoulder J&J:ETHICON:MITE K PRDT [id number] 06/12/2015 [id number] / / [id number] [place] Lupine Br W/Dual Suture Orthocord - [id number] Implanted:Qty : 1 on 01/18/2013 by Crow Love MD at [facility] Left: Shoulder J&J:ETHICON:MITE K PRDT [id number] 06/11/2014 [id number] / / [id number] [place] Advance Healix 5.5 Br - [id number] Implanted:Qty : 1 on 06/20/2015 by Crow Love MD at [facility] Right: Shoulder J&J:ETHICON:MITE K PRDT 05/14/2017 [id number] / / [id number] Procedures Procedure Name Priority Date/Time Associated Diagnosis [...] meniscus of knee, current Special Needs FAX CPT;24679 [id number] POCT EKG Routine 06/08/2014 10:16 AM EST [...] Chronic maxillary sinusitis Special Needs NICOL CPT; 95154/51436 HEPATIC FUNCTION PANEL Routine 4 11:31 AM [...] EDT Rotator cuff (capsule) sprain Special Needs CPT;89602 [id number] MRI SHOULDER LEFT WO CONTRAST Routine 12/25/2012 [...] - 946 pg/mL 06/01/2018 4:11 PM EST [facility] Folate >16.00(H) 4.50 - 16.00 ng/mL 06/01/2018 4:11 PM EST [facility] Blood VENOUS BLOOD / Unknown Venipuncture / Unknown 06/01/2018 10:14 AM EST 06/01/2018 10:14 AM EST Narrative PREFERRED [facility] - 06/01/2018 4:11 PM EST Ingestion of roxanna doses of biotin (>5 mg/day) taken within 8 hours of drawing blood sample can interfere with this immunoassay test. us Dustin Mcintyre MD CHEMISTRY ORDERABLES F inal Result [facility]REFERRED [facility] 1 [facility] , [place] [address] * TSH REFLEX (06/01/2018 10:14 AM EST) TSH Reflex 1.640 0.270 - 4.200 mcIU/mL 06/01/2018 3:53 PM EST PREFERRED [facility], [facility] Blood VENOUS BLOOD / Unknown Venipuncture / Unknown 06/01/2018 10:14 AM EST 06/01/2018 10:14 AM EST Narrative [facility]REF[facility], [facility] - 06/01/2018 3:53 PM EST Ingestion of roxanna doses of biotin (>5 mg/day) taken within 8 hours of drawing blood sample can interfere with this immunoassay test. Dustin Mcintyre MD CHEMISTRY ORDERABLES F inal Result Performing Organization Address City/[facility]/ZIP Co de Phone Number [facility] [email or web address] [address] , [place] [address] * (ABNORMAL) ACUTE HEPATITIS PANEL (06/01/2018 10:14 AM EST) Only the most recent of2 resultswithin the time period is included. Pathologist [facility] Hep Bs Ag Non-Reacti ve Non-Reacti ve 06/02/2018 11:57 AM EST [facility], [facility] Hep B Core IgM Non-Reacti ve Non-Reacti ve 06/02/2018 11:57 AM EST [facility], [facility] Hep A IgM Non-Reacti ve Non-Reacti ve 06/02/2018 11:57 AM EST [facility], [facility] Hep C Ab Reactive(A ) Non-Reacti ve 06/02/2018 11:57 AM EST [facility], [facility] Comment:Reactive. Antibodies to HCV detected. >97% of specimens with high signal cutoff confirm as reactive. HCV QUANT W/RFLX TO GENOTYPE -REF LAB Blood VENOUS BLOOD / Unknown Venipuncture / Unknown 06/01/2018 10:14 AM EST 06/01/2018 10:14 AM EST Dustin Mcintyre MD CHEMISTRY ORDERABLES F inal Result Performing Organization Address City/[facility]/ZIP Co de Phone Number [facility], [address] , [place] [address] * (ABNORMAL) CBC WITH DIFF [...] 3:19 PM EST [facility] Finney Percent 11.4 % 06/01/2018 3:19 PM EST [facility] Eos Percent 3.8 % 06/01/2018 3:19 PM EST [facility] Baso Percent 0.6 % 06/01/2018 3:19 PM EST [facility] Neut # 3.4 1.6 - 6.1 x10(3)/mcL 06/01/2018 3:19 PM EST [facility] Comment:Neutrophils equals s egs plus bands IMMGRAN# 0.0 0.0 - 0.1 x10(3)/[facility] 06/01/2018 3:19 PM EST [facility] Comment:Automated count of m etamyelocytes, myelocytes and promyelocytes. An absolute IG <0.1 is reported as 0.0. Lymph # 2.1 1.2 - 3.9 x10(3)/[facility] 06/01/2018 3:19 PM EST [facility] Finney # 0.8 0.3 - 0.9 x10(3)/[facility] 06/01/2018 3:19 PM EST [facility] Eos# 0.3 0.0 - 0.5 x10(3)/[facility] 06/01/2018 3:19 PM EST [facility] Baso # 0.0 0.0 - 0.1 x10(3)/[facility] 06/01/2018 3:19 PM EST [facility], [facility] Blood VENOUS BLOOD / Unknown Venipuncture / Unknown 06/01/2018 10:14 AM EST 06/01/2018 10:14 AM EST Dustin Mcintyre MD HEMATOLOGY ORDERABLES Final Result Performing Organization Address [facility] Co de Phone Number [facility] [email or web address] [address] , [place] [address] * (ABNORMAL) PHENYTOIN LEVEL TOTAL (06/01/2018 10:14 AM EST) Only the most recent of20 resultswithin the time period is included. Dilantin 9.0(L) 10.0 - 20.0 mcg/mL 06/01/2018 3:51 PM EST [facility], [facility] Blood VENOUS BLOOD / Unknown Venipuncture / Unknown 06/01/2018 10:14 AM EST 06/01/2018 10:14 AM EST Dustin Mcintyre MD CHEMISTRY ORDERABLES F inal Result Performing Organization Address [facility] Co de Phone Number [facility] [address] [facility] , [place] [address] * (ABNORMAL) COMPREHENSIVE METABOLIC PANEL (06/01/2018 10:14 [...] mL/min/1.7 3 m2 06/01/2018 3:53 PM EST [facility] GFR Non Afr Am 96 >=60 mL/min/1.7 3 m2 06/01/2018 3:53 PM EST [facility] Comment: This estimated GFR [...] ORDERABLES F inal Result [facility] [address] [facility], [place] [address] [facility] [address] [place] [address] * POCT URINALYSIS DIPSTICK (06/01/2018 9:40 AM EST) Only the most recent of4 resultswithin the time period is included. 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 SEP catering coordinator Grav, UA 1.025 1.001 - 1.035 G/DL SEP OFFICE Blood, UA neg POS/NEG SEP OFFICE pH, UA 6.0 5.0 - 8 SEP OFFICE Protein, UA neg POS/NEG SEP OFFICE Urobilinogen, UA 1+ 0.2 - 1.0 MG/DL SEP OFFICE Leukocytes, UA neg POS/NEG SEP OFFICE Nitrite, UA neg POS/NEG SEP OFFICE UA Appear POC SEP OFFICE Lot Number [id number] SEP OFFICE Expiration Date 12/22/2019 SEP OFFICE [...] 207(H) <=200 mg/dL 12/05/2017 3:59 PM EDT [facility] Comment: < 200 Desirable 200 - 239 Borderline High >= 240 High Triglyceride 316(H) <=150 mg/dL 12/05/2017 3:59 PM EDT [facility] Comment: < 150 Normal 150 - 199 Borderline High 200 - 499 High >= 500 Very High HDL 33(L) >=40 mg/dL 12/05/2017 3:59 PM EDT [facility] Comment: > 60 Optimal 40 - 60 Acceptable < 40 Low LDL Calculated 111(H) <=100 mg/dL 12/05/2017 3:59 PM EDT [facility] Non-HDL-C Calculated 174(H) <=129 mg/dL 12/05/2017 3:59 PM EDT [facility] Comment: <130 Desirable 130-159 Above Desirable 160-189 Borderline High 190-219 High >= 220 Very High Blood VENOUS BLOOD / Unknown Venipuncture / Unknown 12/05/2017 9:03 AM EDT 12/05/2017 9:03 AM EDT us Germán Bradley MD CHEMISTRY ORDERABLES Final Re sult [facility] [address] [facility] , [place] [address] * DRUGS OF ABUSE, SCREEN ONLY, URINE (06/30/2017 10:59 PM EDT) Only the most recent of2 resultswithin the time period is included. 6 AM (Heroin) Absent Absent 06/30/2017 11:29 PM EDT [facility] Amphetamines Absent Absent 06/30/2017 11:29 PM EDT [facility] Barbiturates Absent Absent 06/30/2017 11:29 PM EDT [facility] Benzodiazepines Absent Absent 8 11:29 PM EDT [facility] Buprenorphine Absent Absent 06/30/2017 11:29 PM EDT [facility] Cannabinoid Metabolite Absent Absent 06/30/2017 11:29 PM EDT [facility] Cocaine Metabolite Absent Absent 2017 11:29 PM EDT [facility] Methadone and Metabolite Absent Absent 06/30/2017 11:29 PM EDT [facility] Opiate Absent Absent 06/30/2017 11:29 PM EDT [facility] Oxycodone Lvl Absent Absent 06/30/2017 11:29 PM EDT [facility] Phencyclidine Absent Absent 06/30/2017 11:29 PM EDT [facility] Creatinine Ur >25.0 mg/dL 06/30/2017 11:29 PM EDT [facility] Comment: Greater than 20: Consistent with valid sample Greater than 2 but less than 20: Possible dilution Less than 2: Questionable valid sample Urine STRUCTURE OF URINARY TRACT PROPER / Unknown 06/30/2017 10:59 PM EDT 06/30/2017 11:03 PM EDT Narrative [facility] - 06/30/2017 11:29 PM [...] ORDERABLES Final Resul t Performing Organization Address [facility] de Phone Number [facility] [address] [place] [address] * EXTRA GOLD SST (06/30/2017 10:18 PM EDT) Blood VENOUS BLOOD / Unknown Venipuncture / Unknown 06/30/2017 10:18 PM EDT 06/30/2017 10:27 PM EDT us Robbie Queen MD CHEMISTRY ORDERABLES Final Resul t Performing Organization Address [facility] de Phone Number [facility] [address] [place] [address] * EXTRA LAVENDER (06/30/2017 10:18 PM EDT) Blood VENOUS BLOOD / Unknown Venipuncture / Unknown 06/30/2017 10:18 PM EDT 06/30/2017 10:27 PM EDT us Robbie Queen MD HEMATOLOGY ORDERABLES Final Resu lt Performing Organization Address [facility] de Phone Number [facility] [address] [place] [address] * EXTRA LIGHT BLUE (06/30/2017 10:18 PM EDT) Only the most recent of2 resultswithin the time period is included. Blood VENOUS BLOOD / Unknown Venipuncture / Unknown 06/30/2017 10:18 PM EDT 06/30/2017 10:27 PM EDT us Robbie Queen MD HEMATOLOGY ORDERABLES Final Resu lt Performing Organization Address [facility] Co de Phone Number [facility] [address] [place] [address] * (ABNORMAL) ALCOHOL MEDICAL (06/30/2017 10:18 PM EDT) Only the most recent of2 resultswithin the time period is included. Alcohol Medical 36(H) <=10 mg/dL 06/30/2017 10:39 PM EDT [facility] Blood VENOUS BLOOD / Unknown Venipuncture / Unknown 06/30/2017 10:18 PM EDT 06/30/2017 10:26 PM EDT us Robbie Queen MD CHEMISTRY ORDERABLES Final Resul t Performing Organization Address [facility] de Phone Number [facility] [address] [place] [address] * ACETAMINOPHEN LEVEL (06/30/2017 10:18 PM EDT) Only the most recent of2 resultswithin the time period is included. Acetaminophen Lvl <15.0 mcg/mL 018 11:16 PM EDT [facility] Blood VENOUS BLOOD / Unknown Venipuncture / Unknown 06/30/2017 10:18 PM EDT 06/30/2017 10:27 PM EDT Narrative [facility] - 06/30/2017 11:16 PM EDT Therapeutic: 10-30 mcg/ml Supratherapeutic: > 35 mcg/ml Toxic: > 150 mcg/ml (4h post ingestion) > 75 mcg/ml (8h post ingestion) > 40 mcg/ml (12h post ingestion) us Holly Brannon APRN CHEMISTRY ORDERABLES Final R esult Performing Organization Address [facility] Co de Phone Number [facility] [address] [place] [address] * SALICYLATE LEVEL (06/30/2017 10:18 PM EDT) Only the most recent of2 resultswithin the time period is included. Salicylate <0.3 <=0.3 mg/dL 06/30/2017 11:16 PM EDT [facility] Blood VENOUS BLOOD / Unknown Venipuncture / Unknown 06/30/2017 10:18 PM EDT 06/30/2017 10:27 PM EDT us Holly Brannon SIDE SHOW ENTERTAINER CHEMISTRY ORDERABLES Final R esult [facility] [address] [place] [address] * (ABNORMAL) BASIC METABOLIC PANEL (06/30/2017 10:18 PM EDT) Only the most recent of5 resultswithin the time period is included. Pathologist [facility] Sodium 142 136 - 145 mmol/L 06/30/2017 11:16 PM EDT [facility] Potassium 4.1 3.5 - 5.0 mmol/L 06/30/2017 11:16 PM EDT [facility] Chloride 101 98 - 107 mmol/L 06/30/2017 11:16 PM EDT [facility] Total CO2 26 22 - 29 mmol/L 06/30/2017 11:16 PM EDT [facility] Anion Gap 15 7 - 16 mmol/L 06/30/2017 11:16 PM EDT [facility] Calcium 9.4 8.6 - 10.2 mg/dL 06/30/2017 11:16 PM EDT [facility] Glucose Lvl 115(H) 74 - 100 mg/dL 06/30/2017 11:16 PM EDT [facility] BUN 12 6 - 20 mg/dL 06/30/2017 11:16 PM EDT [facility] Creatinine 0.96 0.67 - 1.30 mg/dL 06/30/2017 11:16 PM EDT [facility] GFR Afr Am 110 mL/min/1.7 3 m2 06/30/2017 11:16 PM EDT [facility] GFR Non Afr Am 95 mL/min/1.7 3 m2 06/30/2017 11:16 PM EDT [facility] Comment: GFR Afr Am [...] 06/30/2017 10:26 PM EDT us Holly Brannon SIDE SHOW ENTERTAINER CHEMISTRY ORDERABLES Final R esult [facility] [address] [place] [id number] * XR WRIST RIGHT PA LATERAL AND OBLIQUE (05/26/2017 9:46 PM EST) Anatomical Region Laterality Modality Wrist Radiographic Thao ging 05/26/2017 9:46 PM EST Impressions 05/26/2017 10:07 PM EST Negative exam. Narrative 05/26/2017 10:07 PM EST XR WRIST RIGHT PA LATERAL AND OBLIQUE, 05/26/2017 9:46 PM CLINICAL HISTORY: -MEDICAL CLEARANCE FOR ALF COMPARISON: None. PROCEDURE COMMENTS: 4 routine views of the right wrist. FINDINGS: No fracture, dislocation or radio-opaque foreign body. Navicular fractures can be occult on initial radiographs. If there is snuff-box tenderness consider follow-up radiographs in 10 to 14 days. Procedure Note Mauro Rosas MD - 05/26/2017 XR WRIST RIGHT PA LATERAL AND OBLIQUE, 05/26/2017 9:46 PM CLINICAL HISTORY: -MEDICAL CLEARANCE FOR ALF COMPARISON: None. PROCEDURE COMMENTS: 4 routine views [...] 9:45 PM CLINICAL HISTORY: -MEDICAL CLEARANCE FOR ALF COMPARISON: None. PROCEDURE COMMENTS: 3 routine radiographs [...] 9:45 PM CLINICAL HISTORY: -MEDICAL CLEARANCE FOR ALF COMPARISON: None. PROCEDURE COMMENTS: 3 routine radiographs [...] ORDERAB LES Final Result Performing Organization Address City/[facility] Co de Phone Number [facility] LABORATORY [address] [place] [address] * URINALYSIS (04/16/2017 1:05 AM EST) Only the most recent of3 resultswithin the time period is included. UA Color Yellow 04/16/2017 1:20 AM EST [facility] UA Appear Clear Clear 04/16/2017 1:20 AM EST [facility] UA Glucose Negative Negative mg/dL 04/16/2017 1:20 AM EST [facility] UA Ketones Negative Negative mg/dL 04/16/2017 1:20 AM EST [facility] UA Blood Negative Negative 04/16/2017 1:20 AM EST [facility] UA pH 6.0 5.0 - 8.0 pH 04/16/2017 1:20 AM EST [facility] UA Protein Negative Negative mg/dL 04/16/2017 1:20 AM EST [facility] UA Urobilinogen 0.2 <=1 E.U./dL 04/16/19 18 1:20 AM EST [facility] UA Nitrite Negative Negative 04/16/2017 1:20 AM EST [facility] UA Leuk Est Negative Negative 04/16/2017 1:20 AM EST [facility] UA Spec Grav 1.025 1.001 - 1.035 no units 04/16/2017 1:20 AM EST [facility] Comment: Reference range valid for random specimens only. Urine URINE SPECIMEN COLLECTION, CLEAN CATCH / Unknown 04/16/2017 1:05 AM EST 04/16/2017 1:17 AM EST us Jose Carlos Rasheed MD URINE ORDERABLES Final Result Performing Organization Address City/[facility] Co de Phone Number [facility] [address] [place] [address] * LDL, CALCULATED (01/07/2017 10:30 AM EDT) [...] ORDERABLES F inal Result Performing Organization Address [facility] de Phone Number [address] [address] * (ABNORMAL) DIFFERENTIAL (01/07/2017 10:30 AM EDT) Only the most recent of11 resultswithin the time period is included. Neut Percent 48.5 % [facility] Lymph Percent 34.1 % [facility] Finney Percent 9.2 % [facility] Eos Percent 6.9 % [facility] Baso Percent 1.3 % [facility] Neut# 3.9 1.8 - 7.7 x10(3)/mcL [facility] Lymph# 2.7 0.6 - 4.8 x10(3)/[facility] LABORATORY Finney# 0.7 0.0 - 1.3 x10(3)/[facility] LABORATORY Eos# 0.6(H) 0.0 - 0.5 x10(3)/[facility] LABORATORY Baso# 0.1 0.0 - 0.2 x10(3)/[facility] LABORATORY Blood specimen (specimen) 01/07/2017 10:30 AM EDT 01/07/2017 3:48 PM EDT us Dustin Mcintyre MD HEMATOLOGY ORDERABLES Final Result Performing Organization Address [facility] Co de Phone Number [address] [address] * XR KNEE RIGHT AP LAT INT [...] AM EST) 05/06/2016 8:51 AM EST Impressions [facility] - 05/06/2016 8:51 AM EST Good [...] Germán Bradley MD PFT ORDERABLES Final Result [facility] [address] [place] [address] * POCT EKG (04/29/2016 2:23 PM EST) Only the most recent of4 resultswithin the time period is included. 04/29/2016 2:23 PM EST Impressions SEP OFFICE - 04/29/2016 2:23 PM EST nsr No ischemia Normal ekg Germán Bradley MD POINT OF CARE CARDIOLOGY Zayra l Result Performing Organization Address City/[facility]/ZIP Co de Phone Number SEP OFFICE * SYPHILIS SCREEN WITH REFLEX RPR QUANT (04/01/2016 4:37 PM EST) TREP(SYPHILIS) AB INDEX <0.10 <=1.09 Index Value [facility] Comment: <0.90 - Negative 0.90 to 1.00 - Equivocal Patients with equivocal results should be retested in 7-14 days. >=1.10 - Positive NOTE: All equivocal and positive results will be reflexed to Quantitative Non-Treponemal(RPR)test. Blood specimen (specimen) UPPER LIMB STRUCTURE / Unknown 04/01/2016 4:37 PM EST 04/01/2016 8:41 PM EST Germán Bradley MD CHEMISTRY ORDERABLES Final Re sult Performing Organization Address [facility] [place] [address] * XR LUMBAR SPINE AP AND LATERAL [...] DIAGNOSTIC IMAGING ORDERABLE S Final Result * GA US LOWER EXTREMITY VENOUS LEFT (06/23/2015 6:16 [...] PERIPHERAL BLOCK (06/20/2015 7:47 AM EST) Narrative [facility] - 06/20/2015 7:47 AM EST Jerson [...] bill Result - Final Performing Organization Address [facility] de Phone Number [facility] [address] [place] [address] * LDL DIRECT (04/20/2015 9:44 AM EST) Only the most recent of5 resultswithin the time period is included. LDL Direct 65 <=100 mg/dL [facility] Comment: < 100 Optimal 100 - 129 Near or above optimal 130 - 159 Borderline High 160 - 189 High >= 190 Very High Blood specimen (specimen) 04/20/2015 9:44 AM EST 04/20/2015 3:48 PM EST us Germán Bradley MD CHEMISTRY ORDERABLES Final Re sult Performing Organization Address [facility] Co de Phone Number [facility] [address] [place] [phone] * MRI SHOULDER RIGHT WO CONTRAST (03/22/2015 [...] included. WBC 7.2 4.0 - 11.0 x10(3)/mcL [facility] RBC 4.86 4.30 - 5.81 x10(6)/mcL [facility] Hgb 16.1 13.5 - 17.1 gm/dL [facility] Hct 47.6 38.9 - 51.6 % [facility] MCV 97.9 82.5 - 99.8 fL [facility] MCH 33.1 27.0 - 34.3 pg [facility] MCHC 33.8 32.1 - 35.3 gm/dL [facility] RDW 13.6 11.5 - 15.0 % [facility] Platelet 211 144 - 423 x10(3)/mcL [facility] MPV 9.2 6.8 - 10.8 fL [facility] Blood specimen (specimen) UPPER LIMB STRUCTURE / Unknown 11/04/2014 10:36 AM EDT 11/04/2014 4:05 PM EDT Dustin Mcintyre MD HEMATOLOGY ORDERABLES Final Result Performing Organization Address City/State/[facility] Co de Phone Number [facility] [address] [place] [address] * SCANNED PATHOLOGY REPORT (09/20/2014 5:07 PM [...] AM EST 03/08/2014 3:39 PM EST Narrative [facility] - 03/16/2014 8:03 AM EST [employer]-See attached Fax to [phone] us Los Gordon MD HEMATOLOGY ORDERABLES Edited Result - Final [facility] [address] [place] [address] * SCANNED PRE/POST PROCEDURES (02/08/2014 1:26 AM [...] Saldana (Electronicall y signed by) Verified: 02/07/2014 [facility] Laboratory Clinical Information Chronic maxillary sinusitis. [...] performed and the findings corroborate the diagnosis. [facility] 02/04/2014 8:20 AM EDT us Los Gordon MD PATHOLOGY ORDERABLES Final R esult [facility] [address] [place] [address] * FUNGUS CULTURE-OTHER (02/04/2014 8:00 AM EDT) Final No growth of fungus at 4 weeks [facility] Specimen from nose (specimen) NASAL STRUCTURE / Unknown 02/04/2014 8:00 AM EDT 02/04/2014 10:08 AM EDT Comment:LEFT MAX SINUS SWAB Narrative [facility] - 03/04/2014 4:01 PM EST Aerobic, anaerobic, fungus culture from left maxillary sinus Los Gordon MD MICROBIOLOGY - GENERAL ORDER MK Final Result [facility] [address] [place] [address] * WOUND CULTURE (02/04/2014 8:00 AM EDT) GS No slide sent/smear made after culture inoculated Rare WBC's Rare RBC's Rare Gram positive cocci [facility] Final Moderate growth of Staphylococcus aureus Sparse growth of Coagulase negative staphylococci No further workup Moderate growth of beta hemolytic Streptococci suspect Streptococcus anginosus group No further workup [facility] Organism Staphylococcus aureus [facility] Specimen from nose (specimen) NASAL STRUCTURE / Unknown 02/04/2014 8:00 AM EDT 02/04/2014 10:08 AM EDT Comment:LEFT MAX SINUS SWAB Narrative [facility] - 02/07/2014 9:08 AM EDT Aerobic, [...] ORDER MK Final Result Performing Organization Address [facility] de Phone Number [facility] [address] [place] [address] * ANAEROBIC CULTURE (02/04/2014 8:00 AM EDT) Final No anaerobic growth at 5 days [facility] Specimen from nose (specimen) NASAL STRUCTURE / Unknown 02/04/2014 8:00 AM EDT 02/04/2014 10:08 AM EDT Comment:LEFT MAX SINUS SWAB Narrative [facility] - 02/10/2014 5:01 PM EDT Aerobic, anaerobic, fungus culture from left maxillary sinus Los Gordon MD MICROBIOLOGY - GENERAL ORDER MK Final Result Performing Organization Address [facility] de Phone Number [facility] [address] [place] [address] * HEPATIC FUNCTION PANEL (01/24/2014 11:31 AM EDT) Only the most recent of2 resultswithin the time period is included. Total Protein 6.8 6.4 - 8.3 gm/dL [facility] Albumin 4.2 3.5 - 5.2 gm/dL [facility] Bili Direct <0.2 0.0 - 0.3 mg/dL [facility] Bili Total 0.1 0.1 - 1.4 mg/dL [facility] AST 40 <=40 IU/L [facility] ALT 38 <=41 IU/L [facility] Alk Phos 106 40 - 129 IU/L [facility] Blood specimen (specimen) UPPER LIMB STRUCTURE / Unknown 01/24/2014 11:31 AM EDT 01/24/2014 2:38 PM EDT Koffi Jay MD CHEMISTRY ORDERABLES Edited R esult - Final Performing Organization Address [facility] Co de Phone Number [facility] [address] [place] [address] * XR WRIST LEFT PA LATERAL AND [...] 10:12 AM EDT) Total PSA 0.66 ng/mL [facility] Comment: 2008 A[employer] Best Practice Statement Guidelines-Age Adjusted Reference Intervals: Age Range Whites Americans Americans 40-49 years 0-2.5 ng/mL 0-2.0 ng/mL 0-2.0 ng/mL 50-59 years 0-3.5 ng/mL 0-4.0 ng/mL 0-3.0 ng/mL 60-69 years 0-4.5 ng/mL 0-4.5 ng/mL 0-4.0 ng/mL 70-79 years 0-6.5 ng/mL 0-5.5 ng/mL 0-5.0 ng/mL [facility] uses the [employer] Total PSA assay, which is approved as [...] Mcintyre MD CHEMISTRY ORDERABLES F inal Result [facility] [address] [place] [address] * MRI BRAIN W WO CONTRAST (07/23/2013 [...] be called to his cell phone at [phone]. This call was not made by radiology. [...] results be called to his cell phone [phone]. This call was not made by radiology. Richards us Germán Bradley MD [facility] [place] DIAGNOSTIC IMAGING ORDERA BLES Final Result * [...] trauma. IMPRESSION: Negative exam. Mariaelena Rossi MD [facility] [place] DIAGNOSTIC IMAGING ORDER MK Final Result * [...] AM EDT) Hgb A1c 5.3 <=7.0 % [facility] Comment: Initial Diagnostic Criteria < 5.7 % Normal 5.7 - 6.4 % At risk for diabetes mellitus >= 6.5 % Consistent with diabetes mellitus Diabetes monitoring Target Value (ADA recommended): < 7 % Blood specimen (specimen) UPPER LIMB STRUCTURE / Unknown 12/19/2010 11:00 AM EDT 12/19/2010 4:04 PM EDT Germán Bradley MD CHEMISTRY ORDERABLES Final Re sult [facility] [address] [place] [address] * XR ANKLE RIGHT AP LATERAL AND [...] ANTIBODY IGG (11/07/2009 4:13 PM EDT) Pathologist [facility] H pylori IgG 0.44 Index Value [facility] Comment: I.V. = Index Value I.V. < 0.90 No detectable IgG antibodies to H. Pylori I.V. 0.90 - 1.09 Equivocal for IgG antibodies to H. Pylori. Re-testing a new specimen is recommended. I.V. >= 1.10 H. Pylori IgG antibody detected. Blood specimen (specimen) 11/07/2009 4:13 PM EDT 11/07/2009 8:55 PM EDT us Germán Bradley MD IMMUNOLOGY ORDERABLES Final R esult [facility] [address] [place] [address] * SCANNED EKG (11/06/2009 12:00 AM EDT) Anatomical Region Laterality Modality Other Narrative 11/06/2009 9:16 AM EDT Ordered by an unspecified provider. Transcriptions Unknown, Unknown - 11/06/2009 5:12 AM EDT us Unknown Unknown IMG ECG ORDERABLES Final Result * TROPONIN-I (11/05/2009 12:01 AM EDT) Troponin-I 0.01 ng/mL [facility] Comment: Note: New reference ranges for [...] Griffiths DO CHEMISTRY ORDERABLES Final Re sult [facility] [address] [place] [address] * XR CHEST PORTABLE GC (11/04/2009 11:28 [...] normal limits. IMPRESSION- Normal portable chest . Shipboard Intelligence Analyst- ALBERT CRAIG MD Reading Physician- ALBERT CRAIG [...] normal limits. IMPRESSION- Normal portable chest . Shipboard Intelligence Analyst- ALBERT CRAIG MD Reading Physician- ALBERT CRAIG MD Released Date Time- 11/04/09 2352 us Ty Griffiths DO [facility] HISTORICAL F inal Result * (ABNORMAL) PHENOBARBITAL LEVEL (11/04/2009 11:27 PM EDT) Phenobarbital Lvl <3.0(L) 15.0 - 40.0 mcg/mL [facility] Blood specimen (specimen) 11/04/2009 11:27 PM EDT 11/05/2009 6:47 PM EDT Ty Griffiths DO CHEMISTRY ORDERABLES Final Re sult [facility] [address] [place] [address] * EK EKG REG GC (11/04/2009 11:02 PM EDT) Only the most recent of3 resultswithin the time period is included. Anatomical Region Laterality Modality Other 11/04/2009 11:0 2 PM EDT Narrative 11/06/2009 2:48 PM EDT Sinus bradycardia Normal ECG except for rate Shipboard Intelligence Analyst- TY Healy PhysicianJenni FOY Released Date Time- 11/06/09 1448 Procedure Note Ty Foy S - 11/06/2009 Sinus bradycardia Normal ECG except for rate Shipboard Intelligence Analyst- TY Healy Physician- TY FOY Released Date Time- 11/06/09 1448 Ty Griffiths DO [facility] STAR CARD HISTORICAL Final Result * MR [...] 3. Degenerative changes of the AC joint. Shipboard Intelligence Analyst- LISSETTE Healy Physician- MEMO TONG M.D. Released [...] 3. Degenerative changes of the AC joint. Shipboard Intelligence Analyst- LISSETTE Healy Physician- MEMO TONG M.D. Released Date Time- 09/01/09 1124 Marcela Ding MD [facility] GARRICK Thomas Final Result * XR BILAT [...] radiographically on the right than the left. Shipboard Intelligence Analystdamaso Healy Physician- MEMO TONG M.D. Released Date [...] Date Time- 08/24/091914 Marcela Ding MD IMG [facility] GARRICK RAD CHARANICA L Final Result * SCANNED ECG (08/03/2009 12:00 AM EDT) Only the most recent of2 resultswithin the time period is included. Anatomical Region Laterality Modality Other Narrative 08/03/2009 6:51 PM EDT Ordered by an unspecified provider. Transcriptions Unknown, Unknown - 08/03/2009 2:51 PM EDT us Unknown Unknown [facility] [place] ECG ORDERABLES Final Result * MR ORBIT,FACE [...] Diffuse cerebellar hemisphere atrophy of uncertain etiology. Shipboard Intelligence Analyst- RADHA Healy Physician- CEASAR MARROQUIN MD Released [...] Diffuse cerebellar hemisphere atrophy of uncertain etiology. Shipboard Intelligence Analyst- RADHA CEE Reading Physician- CEASAR MARROQUIN MD Released Date Time- 06/26/09 1604 Wang Ospina [facility] RAD HISTORICAL Fin al Result * MR [...] medial meniscus, also apparent on plain films. Shipboard Intelligence Analyst- PETTY LEVIN Reading Physician- LEONARDO PUCKETT MD [...] medial meniscus, also apparent on plain films. Shipboard Intelligence Analyst- PETTY Healy Physician- LEONARDO PUCKETT MD Released Date Time- 09/19/082050 Germán Bradley MD [facility] RAD HISTORICAL F inal Result * XR LOWER LEG TIBIA/FIBULA GC (09/09/2008 1:55 PM EDT) Anatomical Region Laterality Modality Other 09/09/2008 1:55 PM EDT Narrative 09/09/2008 6:39 PM EDT Examinations of the left tibia and fibula Indications- Pain. History- Pain. Two views of the left tibia and fibula demonstrate no fractures. There are no malalignments. The cortical margins are intact. Impression- No fractures. Shipboard Intelligence Analyst- PETTY LIVINGSTON Reading Physician- MEMO TONG M.D. Released Date Time- 09/09/081949 Procedure Note Memo Tong - 06/22/2009 Examinations of the left tibia and fibula Indications- Pain. History- Pain. Two views of the left tibia and fibula demonstrate no fractures. There are no malalignments. The cortical margins are intact. Impression- No fractures. Uli Gandara- MEMO TONG M.D. Released Date Time- 09/09/081949 Germán Bradley MD [facility] RAD HISTORICAL F inal Result * XR [...] If so, MRI evaluation may be warranted. Shipboard Intelligence Analyst- PETTY Healy Physician- MEMO TONG M.D. Released Date Time- 09/09/081949 Germán Bradley MD [facility] HISTORICAL F inal Result * HOLTER MONITOR [...] The diary was blank. Carolina Campbell [id number] Shipboard Intelligence Analyst- RICK Healy Physician- ISAC BALLARD MD Released [...] The diary was blank. Carolina Campbell. 12-04-07 Shipboard Intelligence Analyst- RICK Healy Physician- ISAC BALLARD MD Released Date Time- 12/04/07 1013 Finesse Moore MD [facility] STAR CARD HISTORIC AL Final Result * XR KNEE (04/02/2007 4:00 PM EST) Anatomical Region Laterality Modality Other 04/02/2007 4:00 PM EST Narrative 04/02/2007 4:26 PM EST PER /JESÚS RM7 Left knee 4 views, 04/02/2007 History- Pain following a twisting injury. Findings- There is no acute fracture or subluxation. Joint spaces and articular margins are intact. No definite joint effusion. Impression- Normal. Shipboard Intelligence Analyst- JANA SARKAR Reading Radiologist- PINO ALBARADO Released Date Time- 04/02/07 1633 Procedure Note Pino Albarado - 06/21/2009 PER /JESÚS RM7 Left knee 4 views, 04/02/2007 History- Pain following a twisting injury. Findings- There is no acute fracture or subluxation. Joint spaces and articular margins are intact. No definite joint effusion. Impression- Normal. Shipboard Intelligence Analyst- JANA Healy Radiologist- PINO ALBARADO Released Date Time- 04/02/07 1633 David Palma MD [facility] RAD HISTORICAL F inal Result * XR [...] Impression- No fracture or dislocation, ankle joint. Shipboard Intelligence Analyst- DALE VELÁSQUEZ Reading Radiologist- RADHA PORTER MD. [...] Impression- No fracture or dislocation, ankle joint. Shipboard Intelligence Analyst- DALE Healy Radiologist- RADHA PORTER MD. Released Date Time- 01/01/06913 Robbie Eldridge MD [facility] HISTORICAL Fi nal Result * XR FOOT [...] soft tissue swelling. Impression- 1. Negative exam. Shipboard Intelligence Analyst- ANGELA SMITH Reading Radiologist- RADHA PORTER MD. [...] soft tissue swelling. Impression- 1. Negative exam. Shipboard Intelligence Analyst- ANGELA SMITH Reading Radiologist- RADHA PORTER MD. Released Date Time- 01/01/06913 Robbie Eldridge MD [facility] [place] [employer] HISTORICAL Fi nal Result * XR SCAPULA [...] definite fracture is identified. Dustin Mcintyre MD [facility] [place] [employer] HISTO RICAL Final Result * XR NOSE [...] The septum is midline. Dustin Mcintyre MD [facility] STAR RAD HISTO RICAL Final Result Visit [...] facility 2014 COPD (chronic obstructive pulmonary disease) ([facility]) Chronic airway obstruction, not elsewhere classified 2014 Acute bronchitis 05/18/2014 Acute sinusitis Acute sinusitis, unspecified 05/18/2014 COPD (chronic obstructive pulmonary disease) ([facility]) Chronic airway obstruction, not elsewhere classified 05/18/2014 Hypernatremia Hyperosmolality and/or hypernatremia 05/20/2014 Pre-op testing Preoperative examination, unspecified 05/20/2014 Hypernatremia Hyperosmolality and/or hypernatremia 05/20/2014 Pre-op testing Preoperative examination, unspecified 05/20/2014 Bronchitis Bronchitis, not specified as acute or chronic 05/20/2014 COPD exacerbation ([facility]) Obstructive chronic bronchitis with exacerbation 05/20/2014 Asthma exacerbation, moderate persistent 05/20/2014 Chest wall pain Painful respiration 05/20/2014 Vomiting Vomiting alone 05/20/2014 Hypernatremia Hyperosmolality and/or hypernatremia 05/20/2014 Asthma, unspecified asthma severity, uncomplicated 05/21/2014 COPD (chronic obstructive pulmonary disease) ([facility]) Chronic airway obstruction, not elsewhere classified 05/21/2014 Pre-op exam Preoperative examination, unspecified 06/08/2014 Arthritis of knee Unspecified arthropathy, lower leg 06/08/2014 Folliculitis Other specified disease of hair and hair follicles 06/08/2014 Epilepsy ([facility]) Unspecified epilepsy without mention of intractable epilepsy [...] uncomplicated 11/04/2014 COPD (chronic obstructive pulmonary disease) ([facility]) Chronic airway obstruction, not elsewhere classified 11/04/2014 [...] Lifestyle No Radha Urbina CCMA Care 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
[2024-12-31 13:31] VITALS: BP 149/92; PULSE 91; RESP 20; TEMP 36.7; O2SAT 98; BMI 27.7
--- NOTE | 2024-12-31 13:36 | PC.NURSE ---
external rectal exam performed by Gustavo SUMMERS. This RN present during that external exam.
--- NOTE | 2024-12-31 13:39 | HMH.EDGENADL ---
Discharge Plan Disposition Patient Disposition: Home, Self-Care Prescriptions Prescriptions: No Action Wegovy 0.25 mg/0.5 mL pen injector 0.25 mg SQ Q7D Qty: 2 0RF duloxetine 60 mg capsule,delayed release(DR/EC) 60 mg PO DAILY Qty: 90 3RF esomeprazole magnesium 40 mg capsule,delayed release(DR/EC) See Rx Instructions .ROUTE .COMPLEX Qty: 90 2RF Dose Instruction: TAKE ONE CAPSULE BY MOUTH EVERY DAY FOR GERD Rx Instructions: TAKE ONE CAPSULE BY MOUTH EVERY DAY FOR GERD meloxicam 15 mg tablet See Rx Instructions .ROUTE .COMPLEX Qty: 90 2RF Dose Instruction: TAKE ONE TABLET BY MOUTH EVERY DAY --TAKE WITH FOOD-- Rx Instructions: TAKE ONE TABLET BY MOUTH EVERY DAY --TAKE WITH FOOD-- albuterol sulfate 90 mcg/actuation HFA aerosol inhaler See Rx Instructions .ROUTE .COMPLEX Qty: 8.5 6RF Dose Instruction: INHALE 4 puffs BY MOUTH EVERY 4 HOURS FOR 48 hours NEEDED SHORTNESS OF BREATH OR wheezing, THEN USE NEEDED Rx Instructions: INHALE 4 puffs BY MOUTH EVERY 4 HOURS FOR 48 hours NEEDED SHORTNESS OF BREATH OR wheezing, THEN USE NEEDED omega-3 fatty acids 1,000 mg capsule 2,000 mg PO DAILY Qty: 60 6RF cetirizine 10 mg tablet See Rx Instructions .ROUTE .COMPLEX Qty: 90 2RF Dose Instruction: TAKE ONE TABLET BY MOUTH EVERY DAY Rx Instructions: TAKE ONE TABLET BY MOUTH EVERY DAY azelastine 137 mcg (0.1 %) spray,non-aerosol See Rx Instructions .ROUTE .COMPLEX Qty: 30 5RF Dose Instruction: USE 1 SPRAY in each nostril twice daily as directed Rx Instructions: USE 1 SPRAY in each nostril twice daily as directed Trelegy Ellipta 100-62.5-25 mcg blister with device See Rx Instructions .ROUTE .COMPLEX Qty: 60 2RF Dose Instruction: INHALE 1 PUFF BY MOUTH EVERY DAY FOR copd Rx Instructions: INHALE 1 PUFF BY MOUTH EVERY DAY FOR copd phenytoin sodium extended 200 mg capsule 200 mg PO BID Qty: 60 2RF buspirone 10 mg tablet See Rx Instructions .ROUTE .COMPLEX Qty: 90 2RF Dose Instruction: TAKE ONE TABLET BY MOUTH THREE TIMES DAILY FOR ANXIETY Rx Instructions: TAKE ONE TABLET BY MOUTH THREE TIMES DAILY FOR ANXIETY fluticasone propionate 50 mcg/actuation spray,suspension See Rx Instructions .ROUTE .COMPLEX Qty: 48 3RF Dose Instruction: INSTILL ONE SPRAY IN EACH NOSTRIL EVERY DAY Rx Instructions: INSTILL ONE SPRAY IN EACH NOSTRIL EVERY DAY atorvastatin 40 mg tablet 40 mg PO HS Qty: 90 3RF olanzapine 5 mg tablet 5 mg PO BID Patient Comments: TAKE ONE TABLET BY MOUTH TWICE DAILY Referrals Follow up/Referrals: Christine Gonzalez APRN [Primary Care Provider, Family Practice] - See instructions Rey Addison II, MD [Staff Physician, Gastroenterology] - See instructions Activity Restrictions/Add. Instructions Additional Instructions/Restrictions: Please follow-up with Dr. Addison as soon as possible to schedule an outpatient colonoscopy for further evaluation and management of your bright red blood per rectum as well as for further management of your hepatitis C. Our hepatitis C linkage to out of school hours care worker was also contacted and will follow-up with you as well. Clinical Impressions Clinical Impression: Hematochezia, Chronic hepatitis C Instructions Patient Instructions: DI for Gastrointestinal Bleeding Print Language Print Language: Urdu Discharge ED Provider: Kaylin Chen General Adult HPI General Chief complaint: GI Bleed Stated complaint: bleeding from rectum Time Seen by Provider: 12/31/24 13:31 History of Present Illness HPI narrative: Patient is a 54-year-old male presenting today with bright red blood per rectum. States this is not been going on very long and has been shortly after having normal bowel movements that are brown states that after that he has blood that is coming out of his rectum. No melena from historical standpoint. States that in the remote past he did have a history of an ulcer that was diagnosed in disc optically but states has not had any black stools or any significant abdominal pain. Patient denies being on any anticoagulation or antiplatelets. He denies any other significant past medical history aside from prediabetes and hyperlipidemia. Related Data Home Medications ?Medication ?Instructions ?Recorded ?Confirmed olanzapine 5 mg tablet 5 mg PO BID 03/25/24 12/20/24 Previous Rx's ?Medication ?Instructions ?Recorded duloxetine 60 mg capsule,delayed 60 mg PO DAILY #90 caps 04/20/24 release esomeprazole magnesium 40 mg See Rx Instructions .Route 05/20/24 capsule,delayed release .COMPLEX #90 caps albuterol sulfate 90 mcg/actuation See Rx Instructions .Route 07/14/24 aerosol inhaler .COMPLEX #8.5 grams meloxicam 15 mg tablet See Rx Instructions .Route 07/14/24 .COMPLEX #90 tabs omega-3 fatty acids 1,000 mg 2,000 mg (2 x 1,000 mg) PO DAILY 07/21/24 capsule #60 caps azelastine 137 mcg (0.1 %) nasal See Rx Instructions .Route 08/16/24 spray .COMPLEX #30 mL cetirizine 10 mg tablet See Rx Instructions .Route 08/16/24 .COMPLEX #90 tabs fluticasone fur. 100 mcg-umeclid See Rx Instructions .Route 09/20/24 62.5 mcg-vilant 25 mcg .COMPLEX #60 blisters inhalat.powder (Trelegy Ellipta) phenytoin sodium extended 200 mg 200 mg PO BID #60 caps 11/15/24 capsule atorvastatin 40 mg tablet 40 mg PO HS #90 tabs 12/16/24 buspirone 10 mg tablet See Rx Instructions .Route 12/16/24 .COMPLEX #90 tabs fluticasone propionate 50 See Rx Instructions .Route 12/16/24 mcg/actuation nasal .COMPLEX #48 mL spray,suspension semaglutide (weight loss) 0.25 0.25 mg (0.5 mL) SQ Q7D #2 mL 12/20/24 mg/0.5 mL subcutaneous pen injector (Mj) Allergies Allergy/AdvReac Type Severity Reaction Status Date / Time nickel Allergy Mild Rash Verified 12/20/24 11:48 alprazolam (From Xanax) Allergy Agitated Verified 12/20/24 11:48 diazepam (From Valium) Allergy Agitated Verified 12/20/24 11:48 fluoxetine (From Prozac) Allergy Unknown Verified 12/20/24 11:48 allergy reaction [facility] Disclaimer: The information contained in this section may have been updated after the patient was seen, as this information can be updated by other users. 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 Trigger point 2 discrete trigger points were noted in the paraspinal musculature at S1-S2. Th these did reproduce quite a bit of this patient's low back pain. Procedure note: Trigger point injection The area was cleansed using alcohol. Using semisterile technique a 5 cc syringe was filled with 0.5% preservative-free bupivacaine. Using a 27-gauge needle the needle was advanced into the trigger points. Upon beginning injection I asked the patient if this was the pain he was experiencing and he agreed. Both trigger points were injected left and right sides. The area was cleansed, good hemostasis was obtained, Band-Aids were placed and the patient was discharged to home. Suicidal ideation Preoperative evaluation to rule out surgical contraindication Pain, wrist Acute exacerbation of chronic obstructive pulmonary disease Pulmonary emphysema Tobacco abuse counseling Tobacco abuse Smoking greater than 30 pack years COPD mixed type Tear of lateral meniscus of left knee Pes anserinus bursitis of left knee Chest pain Pain in wrist Epididymitis Acute exacerbation of chronic obstructive pulmonary disease Acute exacerbation of chronic obstructive pulmonary disease General weakness Abnormal x-ray of knee Left knee pain COPD exacerbation Encounter for medical assessment Trigger finger of right hand Popping of right knee joint Family history of cancer Encounter for screening colonoscopy Lesion of penis Right hand pain Orchalgia Laceration of ear lobe Elevated liver function tests Medial epicondylitis of left elbow Finger fracture, right UTI (urinary tract infection) Nausea & vomiting Throat pain in adult Trichomonas contact Abdominal pain Nausea Contusion of right elbow Nasal bone fracture Sinusitis Jaundice Bilateral shoulder pain Shoulder pain, left Hand fracture, right Hand pain, right Contusion Elbow contusion Sting, insect Chronic chest pain Superficial skin lesion Hemorrhoids Left wrist sprain Acute flank pain URI (upper respiratory infection) Left elbow pain Ankle pain Atypical chest pain Bursitis of left elbow Vomiting Rib pain on right side Seizure-like activity Acute exacerbation of chronic obstructive airways disease Acute and chronic respiratory failure with hypoxia Scalp abrasion Subtherapeutic serum dilantin level Pharyngitis Testicular pain, right Mid back pain I would follow this for now. Chest pain Chronic groin pain Otitis media Shortness of breath Encounter for medical assessment Acute bacterial sinusitis Pharyngitis Nasal polyp Influenza A Migraine HTN (hypertension), benign HLD (hyperlipidemia) Depression Asthma Anxiety Upper respiratory infection Pneumonia Schizophrenia Hepatitis B Seizure disorder Chronic obstructive pulmonary disease We will follow this for now. He does have albuterol MDIs. GERD (gastroesophageal reflux disease) 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 History of laparoscopic cholecystectomy History of nasal surgery H/O vasectomy History of arthroscopy of right shoulder History of arthroscopy of left shoulder H/O arthroscopy of right knee Family History Other Cancer Family history of seizures 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 Smoking Status: Current every day smoker tobacco type: cigarettes packs per day: 1 second hand exposure: No alcohol intake: never substance use type: former substance user, marijuana and methamphetamine current occupational status: disabled Travel in the last 8 weeks?: None household members: other housing: house number of children: 2 current occupational exposures/hazards: No caffeine: Yes Have you lived/traveled outside [place] in past 30 days?: No Contact w/someone who lives/traveled outside [place] past 30 days?: No Exposure to someone with infectious disease in past 14 days?: No Do you have a fever (greater than 100.4 F or 38 C)?: No Have you tested positive for COVID-19?: No Exposed to someone with COVID-19 in past 14 days?: No Do you have a sore throat?: No Do you have a cough?: No Do you have any weakness?: No Do you have any diarrhea?: No Are you experiencing any unusual bleeding?: Yes Do you have any muscle aches/pain?: No Do you have any abdominal pain?: No Are you experiencing loss of taste or smell?: No Other 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 Have you received the Flu Vaccine for this season: No Have you received the Pneumonia Vaccine: No ROS Obtained: Yes All systems reviewed & no additional complaints except as documented Physical Exam General General appearance: alert and in no apparent distress Respiratory Respiratory exam: Present normal lung sounds bilaterally Cardiovascular Cardiovascular exam: Present regular rate Neurological Exam Neurological exam: Present alert and oriented X3 Medical Decision Making Medical Records Screening: Per USPSTF and CDC recommendations, given the prevalence of disease in our region, it is our hospital?s policy to screen for HIV and viral Hepatitis for all patients aged 18 and over and those with ongoing risk factors. Krishna Inquiry Pt receiving controlled substance: No Vital Signs: 12/31/24 13:31 12/31/24 13:42 Temperature 98.1 F Temperature Source Oral Pulse Rate [Left Radial] 91 H Respiratory Rate 20 Blood Pressure [Right Arm] 149/92 H Blood Pressure Mean [Right Arm] 111 02 Sat by Pulse Oximetry 98 98 Oxygen Delivery Method Room Air Room Air Lab Data Lab results reviewed: Yes I reviewed the patient's lab results. Lab Results 12/31/24 13:32: WBC 7.5, RBC 4.45 L, Hgb 14.8, Hct 42.9, MCV 96.4 H, MCH 33.3 H, MCHC 34.5, RDW 13.2, Plt Count 190, MPV 9.8, Neut % (Auto) 48.4, Lymph % (Auto) 34.0, [place] % (Auto) 9.3, Eos % (Auto) 6.9, Baso % (Auto) 1.1, Neut # (Auto) 3.6, Lymph # (Auto) 2.6, [place] # (Auto) 0.7, Eos # (Auto) 0.5 H, Baso # (Auto) 0.1, PT 11.0, INR 0.99, APTT 25.8, Sodium 138, Potassium 3.8, Chloride 105, Carbon Dioxide 21 L, Anion Gap 15.8 H, BUN 16, Creatinine 1.10, Estimated Creat Clear 95, Estimated GFR 70, Est GFR ( Amer) 85, Glucose 91, Calcium 8.9, Total Bilirubin 0.5, AST 34, ALT 22, Alkaline Phosphatase 79, Total Protein 7.7, Albumin 4.6, Globulin 3.1, Albumin/Globulin Ratio 1.5 12/31/24 13:32 12/31/24 13:32 Orders (Tests/Meds): ORDERS Category Date Time Status CBC w/Auto Diff [Complete Blood Count Auto Diff] Stat Lab 12/31/24 13:32 Completed CMP [Comprehensive Metabolic Panel] Stat Lab 12/31/24 13:32 Completed PT/PTT Stat Lab 12/31/24 13:32 Completed Medical Decision Narrative: 54-year-old with above history and physical. After reviewing the patient's chart patient actually has a history of acute hepatitis B and his serologies showed resolution also has a history of hepatitis C and had a positive viral load a year ago was not quantitatively high but was objectively positive but this was never followed up upon. Patient seems to be cognitively slowed and reviewing previous charts it seems as if he is a [place] state and states that he has an aide that is here with him at the moment. He states that he has a hard time remembering his appointments and has short-term memory loss. I have contacted the hepatitis C linked to out of school hours care worker about this case as well just to make sure they follow the patient. He will need to be followed up on but with Dr. Addison with regards to his bright red blood per rectum. I did not notice any obvious external abnormalities on his exam. He has a benign abdominal exam no indication for CT imaging. This can be worked up outpatient. Reassessment 236 patient remains very stable labs unremarkable. I did contact our linkage to out of school hours care worker with the hepatitis C team who will follow-up with this patient also the patient was given a referral to Dr. Addison for an outpatient colonoscopy. Both his chronic hepatitis C and bright red blood per rectum need to be managed. I do not suspect that the patient has cirrhosis clinically or based on his labs so his bleeding is likely unrelated. Nonetheless patient will follow-up outpatient with gastroenterology and no further emergency evaluation or treatment is necessary Critical Care Critical Care Time Critical Care Time: No
[2024-12-31 13:42] VITALS: O2SAT 98
[2024-12-31 13:47] LABS: Hematocrit 42.9 % (42.0-52.0); Hemoglobin 14.8 g/dL (14.1-18.0); Immature Granulocytes % 0.3 %; Mean Corpuscular HGB Conc 34.5 g/dL (31.8-35.4); Mean Corpuscular Hemoglobin 33.3 pg (27.0-31.2); Mean Corpuscular Volume 96.4 fl (80-94); Nucleated Red Blood Cells % 0 %; Platelet Count 190 K/mm3 (142-424); Red Blood Count 4.45 M/mm3 (4.60-6.20); Red Cell Distribution Width-SD 46.8 fL; White Blood Count 7.5 K/mm3 (4.8-10.8)
[2024-12-31 13:51] LABS: Albumin Level 4.6 g/dl (3.5-5.0); Chloride 105 mmol/L (98-107); Potassium 3.8 mmoL/L (3.5-5.1); Sodium 138 mmol/L (136-145)
[2024-12-31 13:54] LABS: Alanine Aminotransferase 22 U/L (12-78); Albumin/Globulin Ratio 1.5 (1.1-1.8); Alkaline Phosphatase 79 U/L (38-126); Anion Gap 15.8 mEq/L (5-15); Aspartate Amino Transferase 34 U/L (17-59); Bilirubin,Total 0.5 mg/dl (0.2-1.3); Blood Urea Nitrogen 16 mg/dl (9-20); Calcium 8.9 mg/dl (8.4-10.2); Carbon Dioxide 21 mmol/L (22.0-30.0); Creatinine Clearance Estimated 95 mL/min (50-200); Creatinine,Serum 1.10 mg/dl (0.66-1.25); Estimated Glomerular Filt Rate 70 ml/min (>60); GFR (African American) 85 ML/MIN (>60); Globulin 3.1 g/dL (1.3-3.2); Glucose 91 mg/dl (74-100); Total Protein,Serum 7.7 g/dl (6.3-8.2)
[2024-12-31 14:35] VITALS: BP 149/92; PULSE 84; RESP 20; TEMP 36.7; O2SAT 94
[2024-12-31 14:35] LABS: Activated Partial Thrombo Time 25.8 seconds (22.8-30.6); INR 0.99 (0.9-1.1); Prothrombin Time 11.0 seconds (10.1-12.5)
== END 2024-12-31 14:38 | disposition home or self-care (01) ==
PROVIDERS: Emergency Provider Student in an Organized Health Care Education/Training Program; PCP Family Medicine
DX: K92.1 Melena (principal); B18.2 Chronic viral hepatitis C; F17.210 Nicotine dependence, cigarettes, uncomplicated; J44.9 Chronic obstructive pulmonary disease, unspecified
CPT/HCPCS: 80053; 85025; 85610; 85730; 99283; 99284

== ENCOUNTER 2025-01-04 12:14 | Outpatient (CLI) | payer MEDICARE, MEDICAID, SELFPAY ==
[2025-01-04 16:52] LABS: Hepatitis C Ab Qual. W/ RFX REACTIVE (Negative)
[2025-01-05 08:27] LABS: Hep A Ab, Total Positive (Negative); Hep B Core Ab, Total Positive (Negative); Hep B Surface Ab, Qual Reactive (.); Hepatitis B Surface Antigen Negative (Negative)
== END 2025-01-04 23:59 ==
LOC: LAB.DROPOF 01-05 09:49
PROVIDERS: PCP Student in an Organized Health Care Education/Training Program; Visit Provider Student in an Organized Health Care Education/Training Program
DX: B18.2 Chronic viral hepatitis C (principal); B18.1 Chronic viral hepatitis B without delta-agent; Z11.59 Encounter for screening for other viral diseases; K59.00 Constipation, unspecified
CPT/HCPCS: 86706; 86803; 87522; 87902

== ENCOUNTER 2025-01-21 09:50 | Outpatient (CLI) | payer MEDICARE, MEDICAID, SELFPAY ==
[2025-01-21 15:23] LABS: Phenytoin (Dilantin) 11.9 ug/ml (10-20)
--- OUTSIDE RECORDS SUMMARY | 2025-01-24 09:58 | XMS_ITS | Continuity of Care Document ---
Author Organization [facility] Address [address] [place] [address] Phone Care Team Providers Care Sales Attendant Name Role Phone Robbie Putnam MD Primary Care Provider [phone] Encounters Date Type Department Care Team Description 07/21/2018 Refill [facility] [address] [place] [address] Germán Bradley MD Medication Refill 06/30/2018 Telephone [facility] [address] [place] [address] Dustin Mcintyre MD Other 06/02/2018 Orders Only [facility] [address] [place] [address] Radha Urbina CCMA Hepatitis A antibody positive (Primary Dx) 06/02/2018 Orders Only [facility] [address] [place] [address] Oralia Cruz RMA Elevated liver function tests (Primary Dx) 06/01/2018 9:30 AM EST Office Visit [facility] [address] [place] [address] Dustin Mcintyre MD Left inguinal [...] Elevated liver function tests 04/13/2018 Refill [facility] [address] [place] [address] Germán Bradley MD Medication Refill 12/22/2017 Telephone [facility] [address] [place] [address] Dustin Mcintyre MD Other 12/05/2017 8:00 AM EDT Office Visit [facility] [address] [facility] [place] [address] Germán Bradley MD Other epilepsy [...] 100 07/22/2017 1:00 PM EDT Office Visit [facility] [address] [facility] [place] [address] Germán Bradley MD Other epilepsy without status epilepticus, not intractable (HCC) (Primary Dx); Impulse control disorder; COPD, mild (HCC); Recurrent major depressive disorder, in full remission; Chest wall pain; Rotator cuff syndrome of left shoulder; JB (generalized anxiety disorder); Closed nondisplaced fracture of distal phalanx of finger, unspecified finger, initial encounter 07/08/2017 Patient Outreach [facility] [address] [place] [address] Jennifer Mccain LPN Care Transition; Care Management - Chart Review; ED Follow-Up Call 07/07/2017 9:44 PM EDT - 07/07/2017 10:25 PM EDT Emergency [facility] [address] [place] [address] Robbie Queen MD Rotator cuff strain, left, initial encounter (Primary Dx) Discharge Disposition: Home or Self Care 05/26/2017 9:28 PM EST - 05/26/2017 10:28 PM EST Emergency [facility] [address] [place] [address] Radha Lopez MD Closed nondisplaced fracture of distal phalanx of right ring finger, initial encounter (Primary Dx); Multiple abrasions Discharge Disposition: Longterm 05/06/2017 2:00 PM EST Office Visit [facility] [address] [place] [address] Dustin Mcintyre MD Well adult exam (Primary Dx); Other epilepsy without status epilepticus, not intractable (HCC); COPD, mild (HCC); Gastroesophageal reflux disease without esophagitis; Restless leg syndrome; Hyperlipidemia with target LDL less than 100; Cigarette nicotine dependence without complication; Impulse control disorder; Recurrent major depressive disorder, in full remission; Generalized anxiety disorder 04/08/2017 Refill [facility] [address] [place] [address] Dustin Mcintyre MD Medication Refill 04/08/2017 Refill [facility] [address] [place] [address] Germán Bradley MD Medication Refill 04/08/2017 Telephone [facility] [address] [place] [address] Dustin Mcintyre MD Other 02/27/2017 3:00 PM EST Office Visit [facility] [address] [place] [address] Germán Bradley MD Epidermal inclusion cyst (Primary Dx); Acute bacterial sinusitis; Chronic seasonal allergic rhinitis due to pollen; Lumbar sprain, initial encounter; Generalized osteoarthritis of multiple sites 01/16/2017 Telephone [facility] [address] [place] [address] Norma Greenfield MA Advice Only 01/07/2017 3:21 PM EDT - 01/07/2017 11:59 PM EDT Hospital Encounter [facility] [place] [address] Other epilepsy without status epilepticus, not intractable (HCC); Hyperlipidemia with target LDL less than 100 Discharge Disposition: Home or Self Care 01/07/2017 Telephone [facility] [address] [place] [address] Nelda Torres CMA Orders 01/07/2017 9:00 AM EDT Office Visit [facility] [address] [place] [address] Dustin Mcintyre MD Gastroesophageal reflux disease without esophagitis (Primary Dx); COPD, mild (HCC); Hyperlipidemia with target LDL less than 100; Generalized anxiety disorder; Acute pain of right knee; Right knee injury, initial encounter; Other epilepsy without status epilepticus, not intractable (HCC); Major depressive disorder, recurrent episode, mild; Chronic seasonal allergic rhinitis due to pollen 11/10/2016 Refill [facility] [address] [place] [address] Germán Bradley MD Medication Refill 10/21/2016 Refill [facility] [address] [place] [address] Nelda Torres, SIGN SHOP SUPERVISOR Medication Refill 10/05/2016 Refill [facility] [address] [place] [address] Germán Bradley MD Medication Refill 08/18/2016 Refill [facility] [address] [place] [address] Germán Bradley MD Medication Refill 08/07/2016 1:30 PM EDT - 08/07/2016 11:59 PM EDT Hospital Encounter [facility] [address] [place] [address] Acute pain of right knee; Right knee injury, initial encounter Discharge Disposition: Home or Self Care 08/07/2016 1:15 PM EDT Office Visit [facility] [address] [place] [address] Dustin Mcintyre MD Acute pain of right knee (Primary Dx); Right knee injury, initial encounter 07/24/2016 Telephone [facility] [address] [place] [address] Dustin Mcintyre MD Other 06/21/2016 Telephone [facility] [address] [place] [address] Nelda Torres CMA Prior Authorization (nexium needs a PA) 06/12/2016 Telephone [facility] [address] [place] [address] Dustin Mcintyre MD Other 06/11/2016 7:45 AM EST - 06/11/2016 8:00 AM EST Surgery [facility] [address] [place] [address] Wang Vieira MD CARPAL TUNNEL RELEASE BILATERAL 06/11/2016 6:41 AM EST - 06/11/2016 8:24 AM EST Hospital Encounter [facility] [address] [place] [address] Wang Vieira MD Discharge Disposition: Home or Self Care 05/16/2016 1:15 PM EST Office Visit [facility] [address] [place] [address] Germán Bradley MD COPD, mild (HCC) (Primary Dx); Generalized anxiety disorder; Cigarette nicotine dependence without complication; Bilateral carpal tunnel syndrome 05/09/2016 Patient Outreach [facility] [address] [place] [address] Margie Mo LPN Care Management - Chart Review (Chart Review) 05/08/2016 1:42 PM EST - 05/08/2016 11:59 PM EST Hospital Encounter [facility] [address] [place] [address] Emg, Kiko Edg Bilateral carpal tunnel syndrome (Primary Dx) Discharge Disposition: Home or Self Care 05/06/2016 10:05 AM EST - 05/06/2016 11:59 PM EST Hospital Encounter [facility] [address] [place] [address] COPD, mild (HCC) Discharge Disposition: Home or Self Care 04/29/2016 2:30 PM EST [address] [place] [address] Germán Bradley MD Well adult exam (Primary Dx); COPD, mild (HCC); Need for pneumococcal vaccination 04/01/2016 7:27 PM EST - 04/01/2016 11:59 PM EST Hospital Encounter [facility] [place] [address] Memory loss; Hyperlipidemia with target LDL less than 100 Discharge Disposition: Home or Self Care 04/01/2016 Orders Only [facility] [address] [place] [address] Kinjal Bustillo RMA Gastroesophageal reflux disease without esophagitis (Primary Dx) 04/01/2016 2:30 PM EST Office Visit [facility] [address] [place] [address] Germán Bradley MD Need for influenza vaccination (Primary Dx); Generalized anxiety disorder; Hyperlipidemia with target LDL less than 100; Seasonal allergic rhinitis, unspecified allergic rhinitis trigger; Other epilepsy without status epilepticus, not intractable ([facility]); Restless leg syndrome; Major depressive disorder, recurrent episode, mild; Gastroesophageal reflux disease without esophagitis; COPD, mild ([facility]); Memory loss 02/20/2016 Refill [facility] [address] [place] [address] Germán Bradley MD Medication Refill 12/28/2015 Refill [facility] [address] [facility] [place] [address] Nelda Torres CMA Medication Refill 11/30/2015 Patient Outreach [facility] [address] [place] [address] Елена Alvares RMA ED Follow-up 11/28/2015 Patient Outreach [address] [place] [address] Margie Mo LPN Care Management - Chart Review (Chart Review-Patient discharged from ED 11/27/2015) 11/27/2015 5:23 PM EDT - 11/27/2015 6:28 PM EDT [facility] [address] [place] [address] Michelle Shirley MD Right-sided low back pain without sciatica (Primary Dx) Discharge Disposition: Home or Self Care 11/21/2015 Patient Outreach [address] [place] [address] Margie Mo LPN Care Management - Chart Review (Chart Review-Patient discharged from ED 11/20/2015) 11/20/2015 Refill [facility] [address] [place] [address] Germán Bradley MD Medication Refill 11/20/2015 3:28 PM EDT - 11/20/2015 4:01 PM EDT [facility] [address] [facility] [place] [address] Devora Lindsey MD Fall, initial encounter (Primary Dx); Cervical strain, initial encounter; Abrasions of multiple sites; Right shoulder strain, initial encounter Discharge Disposition: Home or Self Care 11/16/2015 8:07 PM EDT - 11/16/2015 11:59 PM EDT Hospital Encounter [facility] PROCESSING [facility] [place] [address] Other epilepsy without status epilepticus, not intractable (HCC); Hyperlipidemia with target LDL less than 100 Discharge Disposition: Home or Self Care 11/16/2015 Telephone [facility] [address] [place] [address] Nelda Torres CMA Prior Authorization (michelle frank a PA) 11/16/2015 3:00 PM EDT Office Visit [address] [place] [address] Germán Bradley MD Chronic obstructive pulmonary disease with acute exacerbation (HCC) (Primary Dx); Hyperlipidemia with target LDL less than 100; Generalized anxiety disorder; Restless leg syndrome; Major depressive disorder, recurrent episode, mild; Other epilepsy without status epilepticus, not intractable (HCC); Gastroesophageal reflux disease without esophagitis; Seasonal allergies; Acute bacterial sinusitis 10/21/2015 Refill [facility] [address] [facility] [place] [address] Germán Bradley MD Medication Refill 10/21/2015 Refill [facility] [address] [facility] [place] [address] Dustin Mcintyre MD Medication Refill 09/21/2015 Refill [facility] [address] [facility] [place] [address] Dustin Mcintyre MD Medication Refill 09/15/2015 Telephone [facility] [address] [facility] [place] [address] Germán Bradley MD Other 09/04/2015 Telephone [facility] [address] [place] [address] Nelda Torres CMA Referral 08/23/2015 Refill [facility] [address] [place] [address] Germán Bradley MD Medication Refill 08/22/2015 Telephone [facility] [address] [place] [address] Germán Bradley MD Other 08/17/2015 Telephone [facility] [address] [place] [address] Germán Bradley MD Letter for School/Work 08/08/2015 Telephone [facility] [address] [place] [address] Nelda Torres [facility] Prior Authorization (atarax needs a PA) 08/07/2015 Refill [facility] [address] [place] [address] Germán Bradley MD Medication Refill 07/20/2015 Refill [facility] [address] [place] [address] Germán Bradley MD Medication Refill 07/05/2015 Refill [facility] [address] [place] [address] Dustin Mcintyre MD Medication Refill 06/26/2015 Refill [facility] [address] [place] [address] Germán Bradley MD Medication Refill 06/26/2015 Patient Outreach [facility] [address] [place] [address] Елена Alvares RMA ED Follow-up 06/26/2015 Patient Outreach [facility] [address] [place] [address] Margie Mo LPN Care Management - Chart Review (Discharged from ED 06/23/2015 Chart Reviewed) 06/23/2015 4:34 PM EST - 06/23/2015 6:22 PM EST Emergency [facility] [address] [place] [address] Elina Hall MD Pain of left lower extremity (Primary Dx) Discharge Disposition: Home or Self Care 06/20/2015 8:30 AM EST - 06/20/2015 9:30 AM EST Surgery [facility] [address] [place] [address] Crow Love MD SHOULDER ARTHROSCOPY SUBACROMIAL DECOMPRESSION /FULL MILLY 06/20/2015 7:52 AM EST Anesthesia Event [facility] [place] [place] [address] Jerson Can DO Mucenski, Cathleen M, MD 06/20/2015 6:32 AM EST - 06/20/2015 10:47 AM EST Hospital Encounter [facility] [place] [address] Crow Love MD Discharge Disposition: Home or Self Care 05/10/2015 Refill [facility] [address] [place] [address] Dustin Mcintyre MD Medication Refill 2015 10:00 AM EST Office Visit [facility] [address] [place] [address] Germán Bradley MD Well adult (Primary Dx); Cigarette nicotine dependence without complication 04/20/2015 3:26 PM EST - 04/20/2015 11:59 PM EST Hospital Encounter [facility] PROCESSING [facility] [place] [address] Other epilepsy without status epilepticus, not intractable (HCC); Hyperlipidemia with target LDL less than 100 Discharge Disposition: Home or Self Care 04/20/2015 Telephone [facility] [address] [place] [address] MaynorarturoЕлена, RMA Anxiety 04/20/2015 9:30 AM EST Office Visit [facility] [address] [place] [address] Germán Bradley MD Chronic obstructive pulmonary disease with acute exacerbation (HCC) (Primary Dx); Generalized anxiety disorder; Gastroesophageal reflux disease without esophagitis; Restless leg syndrome; Hyperlipidemia with target LDL less than 100; Major depressive disorder, recurrent episode, mild; Other epilepsy without status epilepticus, not intractable (HCC); Impingement syndrome, shoulder, right 04/12/2015 Refill [facility] [address] [place] [address] Dustin Mcintyre MD Medication Refill 04/11/2015 Refill [facility] [address] [place] [address] Dustin Mcintyre MD Medication Refill 04/11/2015 Refill [facility] [address] [place] [address] Dustin Mcintyre MD Medication Refill 03/30/2015 11:00 AM EST Office Visit [facility] [address] [place] [address] Germán Bradley MD Shoulder tendonitis, right (Primary Dx); Primary osteoarthritis of right shoulder 03/23/2015 Orders Only [facility] [address] [place] [address] Tu Rivera MD Seizure disorder (HCC) (Primary Dx) 03/22/2015 11:10 AM EST - 03/22/2015 11:59 PM [facility] Hospital Encounter [facility] [address] [place] [address] [phone] Dustin Mcintyre MD Right shoulder pain Discharge Disposition: Home or Self Care 03/21/2015 Orders Only [facility] [address] [place] [address] Елена Alvares, RMSabine Chronic obstructive pulmonary disease with acute exacerbation (HCC) (Primary Dx); Generalized anxiety disorder 03/20/2015 Refill [facility] [address] [place] [address] Dustin Mcintyre MD Medication Refill 03/17/2015 10:15 AM EST Office Visit [facility] [address] [place] [address] Dustin Mcintyre MD Right shoulder pain (Primary Dx) 02/24/2015 11:00 AM EST Office Visit [facility] [address] [place] [address] Dustin Mcintyre MD Generalized anxiety disorder (Primary Dx); Trapezius strain, unspecified laterality, initial encounter; Medial epicondylitis of elbow, right 01/24/2015 Refill [facility] [address] [place] [address] Dustin Mcintyre MD Medication Refill 01/24/2015 Refill [facility] [address] [place] [address] Nelda Torres, SIGN SHOP SUPERVISOR Medication Refill 01/23/2015 Refill [facility] [address] [place] [address] Nelda Torres, SIGN SHOP SUPERVISOR Medication Refill 12/21/2014 Refill [facility] [address] [place] [address] Dsutin Mcintyre MD Medication Refill 11/04/2014 3:00 PM EDT - 11/04/2014 11:59 PM EDT Hospital Encounter [facility] PROCESSING [facility] [place] [address] Other epilepsy without status epilepticus, not intractable (HCC); Hyperlipidemia LDL goal < 100 Discharge Disposition: Home or Self Care 11/04/2014 9:15 AM EDT Office Visit [facility] [address] [place] [address] Dustin Mcintyre MD Generalized anxiety disorder (Primary Dx); Asthma, unspecified asthma severity, uncomplicated; COPD (chronic obstructive pulmonary disease) ([facility]); Restless leg syndrome; Gastroesophageal reflux disease without esophagitis; Other epilepsy without status epilepticus, not intractable ([facility]); Hyperlipidemia LDL goal < 100 11/01/2014 Refill [facility] [address] [place] [address] Dustin Mcintyre MD Medication Refill 11/01/2014 Refill [facility] [address] [place] [address] Dustin Mcintyre MD Medication Refill 10/31/2014 Refill [facility] [address] [place] [address] Dustin Mcintyre MD Medication Refill 10/14/2014 Refill [facility] [address] [place] [address] Dustin Mcintyre MD Medication Refill 08/29/[address] [place] [address] Nelda Torres CMA Medication Management (atrarax needs a pa) 08/10/2014 Telephone [facility] [address] [place] [address] Nelda Torres CMA Medication Management (hyrdoxyzine needs a PA) 07/13/2014 Telephone [facility] [address] [place] [address] Nelda Torres CMA Medication Problem 07/08/2014 9:28 AM EDT - 07/08/2014 11:59 PM EDT Hospital Encounter [facility] Physical Therapy [place] [address] [place] [address] Shanice Ybarra, PT Discharge Disposition: Home or Self Care 07/01/2014 10:04 AM EDT - 07/01/2014 11:59 PM EDT Hospital Encounter [facility] Physical Therapy [place] [address] [place] [address] Shanice Ybarra, PT Discharge Disposition: Home or Self Care 06/28/2014 9:27 AM EDT - 06/28/2014 11:59 PM EDT Hospital Encounter [facility] Physical Therapy [place] [address] [place] [address] Margarita Doran, PT Discharge Disposition: Home or Self Care 06/21/2014 8:15 AM EDT - 06/21/2014 8:45 AM EDT Surgery [facility] [place] [address] Crow Love MD KNEE ARTHROSCOPY MENISCECTOMY/REPAIR (ALSO COVERS ARTHROSCOPIC INCISION AND DRAINAGE/DEBRIDEMENT) 06/21/2014 7:50 AM EDT Anesthesia Event [facility] [place] [address] Artem Naqvi MD Brannon, Daniel Todd, DO 06/21/2014 6:35 AM EDT - 06/21/2014 10:32 AM EDT Hospital Encounter [facility] [place] [address] Crow Love MD Discharge Disposition: Home or Self Care 06/08/2014 10:30 AM EST Office Visit [facility] [address] [place] [address] Dustin Mcintyre MD Pre-op exam (Primary Dx); Arthritis of knee; Folliculitis; Epilepsy (HCC); Restless leg syndrome; JB (generalized anxiety disorder); Hearing loss in left ear; GERD (gastroesophageal reflux disease) 05/25/2014 Telephone [facility] [address] [place] [address] Dustin Mcintyre MD Results 05/21/2014 Refill [facility] [address] [facility] [place] [address] Dustin Mcintyre MD Medication Refill 05/20/2014 7:41 PM EST - 05/20/2014 11:59 PM EST Hospital Encounter [facility] PROC[facility] [place] [address] Hypernatremia; Pre-op testing Discharge Disposition: Home or Self Care 05/20/2014 Orders Only [facility] [address] [place] [address] Lay Minor MD Hypernatremia (Primary Dx); Pre-op testing 05/20/2014 11:00 AM EST Office Visit [facility] [address] [facility] [place] [address] Dustin Mcintyre MD Bronchitis (Primary Dx); COPD exacerbation (HCC); Asthma exacerbation, moderate persistent; Chest wall pain; Vomiting; Hypernatremia 05/19/2014 Patient Outreach [address] [address] Nasrin Perry, mink rancher (ED f/u call ) 05/18/2014 11:12 AM EST - 05/18/2014 12:37 PM EST Emergency [facility] [address] [place] [address] Mariaelena Rossi MD Acute bronchitis (Primary Dx); Acute sinusitis; COPD (chronic obstructive pulmonary disease) (HCC) Discharge Disposition: Home or Self Care 2014 7:57 PM EST - 2014 11:59 PM EST Hospital Encounter [facility] PROCESSING [facility] [place] [address] Healthcare maintenance; Epilepsy (HCC) Discharge Disposition: Home or Self Care 2014 10:00 AM EST Office Visit [address] [place] [address] Dustin Mcintyre MD Epilepsy (HCC) (Primary Dx); Generalized anxiety disorder; Hyperlipidemia LDL goal < 100; Restless leg syndrome; GERD (gastroesophageal reflux disease); Healthcare maintenance; COPD (chronic obstructive pulmonary disease) ([facility]) 04/01/2014 Telephone [facility] [address] [place] [address] Dustin Mcintyre MD Results 03/23/2014 11:00 AM EST Office Visit [facility] [address] [place] [address] Wheezing; SOB (shortness of breath) Discharge Disposition: Home or Self Care 03/18/2014 10:45 AM EST Office Visit [facility] [address] [place] [address] Dustin Mcintyre MD Wheezing (Primary Dx); SOB (shortness of breath) 03/17/2014 Telephone [facility] [address] [place] [address] Nelda Torres CMA Medication Management (protonix bid needs a PA) 03/14/2014 Telephone [facility] [address] [place] [address] Dustin Mcintyre MD Medication Refill 03/08/2014 Telephone [facility] [address] [place] [address] Dustin Mcintyre MD Other 03/08/2014 11:20 AM EST - 03/08/2014 11:59 PM EST Hospital Encounter [facility] [address] [place] [address] Allergic rhinitis, cause unspecified (Primary Dx); Epilepsy ([facility]); Hearing loss in left ear; GERD (gastroesophageal reflux disease); JB (generalized anxiety disorder); FHx: prostate cancer; FHx: lung cancer; Nicotine dependence; Restless leg syndrome Discharge Disposition: Home or Self Care 03/08/2014 10:45 AM EST Office Visit [facility] [address] [place] [address] Dustin Mcintyre MD Hyperlipidemia LDL goal < 100 (Primary Dx); GERD (gastroesophageal reflux disease); Asthma, unspecified asthma severity, uncomplicated; Epilepsy (HCC); Generalized anxiety disorder; Restless leg syndrome 02/12/2014 Refill [facility] [address] [facility] [place] [address] Dustin Mcintyre MD Medication Refill 02/04/2014 8:00 AM EDT - 02/04/2014 9:52 AM EDT Surgery [facility] [address] [place] [address] Los Gordon MD FUNCTIONAL ENDOSCOPIC SINUS SURGERY/SINOSCOPY 02/04/2014 6:27 AM EDT - 02/04/2014 11:53 AM EDT Hospital Encounter [facility] SAME DAY SURGERY [address] [place] [address] Los Gordon MD Discharge Disposition: Home or Self Care 02/02/2014 11:00 AM EDT - 02/02/2014 11:59 PM EDT Hospital Encounter [facility] PRE-ADMIT TESTING [address] [place] [address] Pat, Clarice Discharge Disposition: Home or Self Care 01/24/2014 11:29 AM EDT - 01/24/2014 11:59 PM EDT Hospital Encounter [facility] [address] [place] [address] Esophageal reflux (Primary Dx); Dyspepsia and other specified disorders of function of stomach; Dysphagia, unspecified(787.20) Discharge Disposition: Home or Self Care 11/19/2013 10:30 AM EDT Office Visit [facility] [address] [facility] [place] [address] Dustin Mcintyre MD Laceration of wrist, left, subsequent encounter (Primary Dx) 11/13/2013 Refill [facility] [address] [facility] [place] [address] Marcela Ding MD Medication Refill 11/12/2013 6:42 PM EDT - 11/12/2013 7:45 PM EDT [facility] [address] [facility] [place] [address] Jerson Go MD Wrist laceration, left, initial encounter (Primary Dx) Discharge Disposition: Home or Self Care 11/03/[address] [place] [address] Chyna Mcgraw MA Referral (ORTHO) 11/01/2013 Orders Only [address] [place] [address] Marcela Ding MD Knee pain, right (Primary Dx) 11/01/2013 8:55 AM EDT - 11/01/2013 11:59 PM EDT Hospital Encounter [facility] [address] [place] [address] Dustin Mcintyre MD Right knee pain; Recurrent right knee instability Discharge Disposition: Home or Self Care 10/29/[address] [place] [address] Dustin Mcintyre MD Other 10/28/2013 Telephone [address] [address] Dustin Mcintyre MD Referral 10/25/2013 4:43 PM EDT - 10/25/2013 11:59 PM EDT Hospital Encounter [facility] [address] [place] [id number] Hyperlipidemia LDL goal < 100 (Primary Dx); Epilepsy (HCC); Screening PSA (prostate specific antigen); Family history of prostate cancer; FHx: prostate cancer; Other nonspecific abnormal serum enzyme levels Discharge Disposition: Home or Self Care 10/25/2013 Telephone [address] [place] [address] Nelda Torres CMA Medication Management (Nexium bid dosing needs a PA) 10/25/2013 10:30 AM EDT Office Visit [address] [place] [address] Dustin Mcintyre MD Epilepsy ([facility]) (Primary Dx); Asthma, unspecified asthma severity, uncomplicated; Generalized anxiety disorder; JB (generalized anxiety disorder); GERD (gastroesophageal reflux disease); Family history of prostate cancer; Hyperlipidemia LDL goal < 100; FHx: prostate cancer; Hearing loss in left ear; Restless leg syndrome; Right knee pain; Recurrent right knee instability; Screening PSA (prostate specific antigen) 10/18/2013 Refill [facility] [address] [place] [address] Germán Bradley MD Medication Refill 10/13/2013 10:00 AM EDT Office Visit [facility] Neurology [facility] [address] [place] [address] Tu Rivera MD Epilepsy ([facility]) (Primary Dx); Hearing loss in left ear; Nicotine dependence; Restless leg syndrome 09/10/2013 Refill [facility] [address] [place] [address] Germán Bradley MD Medication Refill 08/30/2013 Refill [facility] [address] [place] [address] Nelda Torres [facility] Medication Refill 08/26/2013 Telephone [facility] [address] [place] [address] Nelda Torres [facility] Referral 08/26/2013 Refill [facility] [address] [place] [address] Germán Bradley MD Medication Refill 08/26/2013 11:20 AM EDT - 08/26/2013 11:59 PM EDT Hospital Encounter [facility] Physical Therapy [facility] [address] [place] [address] Yvrose Palma, PT Discharge Disposition: Home or Self Care 08/17/2013 1:17 PM EDT - 08/17/2013 11:59 PM EDT Hospital Encounter [facility] Physical Therapy [facility] [address] [place] [address] Yvrose Palma, PT Discharge Disposition: Home or Self Care 08/16/2013 Refill [facility] [address] [place] [address] Germán Bradley MD Medication Refill 08/16/2013 Refill [facility] [address] [place] [address] Dustin Mcintyre MD Medication Refill 08/12/2013 Refill [facility] [address] [place] [address] Marcela Ding MD Medication Refill 08/12/2013 Refill [facility] [address] [place] [address] Germán Bradley MD Medication Refill 08/12/2013 Refill [facility] [address] [place] [address] Dustin Mcintyre MD Medication Refill 07/27/2013 Telephone [facility] [address] [place] [address] Nelda Torres, NIESHA Medication Refill 07/23/2013 8:30 AM EDT - 07/23/2013 11:59 PM EDT Hospital Encounter [place] [id number] [facility] [place] [address] Los Gordon MD Sensorineural hearing loss, asymmetrical; Abnormal auditory perception, unspecified Discharge Disposition: Home or Self Care 07/07/2013 Refill [facility] [address] [place] [address] Nelda Torres, SIGN SHOP SUPERVISOR Medication Refill 06/29/2013 2:00 PM EDT - 06/29/2013 11:59 PM EDT Hospital Encounter [facility] [address] [facility] [place] [address] Mag Becerra [facility] Discharge Disposition: Home or Self Care 06/25/2013 Refill [facility] [address] [place] [address] Dustin Mcintyre MD Medication Refill 06/01/2013 Telephone [facility] [address] [place] [address] Germán Bradley MD Labs Only 05/31/2013 4:54 PM EST - 05/31/2013 11:59 PM EST Hospital Encounter [facility] [place] [address] Well adult exam; Epilepsy (HCC) Discharge Disposition: Home or Self Care 05/31/2013 10:00 AM EST - 05/31/2013 4:53 PM EST Hospital Encounter [facility] [address] [place] [address] COPD (chronic obstructive pulmonary disease) (HCC); FHx: lung cancer; Cough Discharge Disposition: Home or Self Care 05/31/2013 9:15 AM EST Office Visit [facility] [place] [place] [address] Germán Bradley MD Well adult exam (Primary Dx); COPD (chronic obstructive pulmonary disease) (HCC); Epilepsy (HCC); GERD (gastroesophageal reflux disease); JB (generalized anxiety disorder); Atypical moles; FHx: prostate cancer; FHx: lung cancer; Cough; Tobacco abuse 05/26/2013 Telephone [facility] [address] [place] [address] Dustin Mcintyre MD Epistaxis 05/24/2013 Refill [facility] [address] [place] [address] Germán Bradley MD Medication Refill 05/21/2013 Refill [facility] [address] [place] [address] Dustin Mcintyre MD Medication Refill 05/21/2013 Refill [facility] [address] [place] [address] Germán Bradley MD Medication Refill 05/03/2013 Telephone [facility] [address] [place] [address] TorresNelda jackson [facility] Medication Refill 04/29/2013 10:15 AM EST Office Visit [facility] [address] [place] [address] Germán Bradley MD JB (generalized anxiety disorder) (Primary Dx); Back strain 04/15/2013 Refill [facility] [address] [place] [address] Marcela Ding MD Medication Refill 04/15/2013 Refill [facility] [address] [place] [address] Germán Bradley MD Medication Refill 03/24/[address] [place] [address] Veronica Freed MA Anxiety 03/16/[address] [place] [address] Chyna Mcgraw MA Referral (ORTHO) 03/15/2013 1:00 PM EST Office Visit [facility] [address] [place] [address] Dustin Mcintyre MD Arthralgia of shoulder region, right (Primary Dx); Arthritis of elbow, right; GERD (gastroesophageal reflux disease); RLS (restless legs syndrome); Epilepsy (HCC); Bipolar affective disorder (HCC); Generalized anxiety disorder; Asthma 03/14/2013 Refill [facility] [address] [place] [address] Germán Bradley MD Medication Refill 03/05/2013 Telephone [facility] [place] [address] [place] [address] Dustin Mcintyre MD Medication Change 03/02/2013 2:15 PM EST Office Visit [facility] [place] [address] [place] [address] Dustin Mcintyre MD Shoulder pain (Primary Dx) 03/02/2013 1:27 PM EST - 03/02/2013 11:59 PM EST Hospital Encounter [place] [address] [place] [address] Kathy Wasserman, PT Discharge Disposition: Home or Self Care 03/01/2013 Refill [facility] [address] [place] [address] Germán Bradley MD Medication Refill 03/01/2013 Refill [facility] [address] [place] [address] Dustin Mcintyre MD Medication Refill 03/01/2013 Refill [facility] [address] [place] [address] Marcela Ding MD Medication Refill 02/27/2013 Telephone [facility] [address] [place] [address] Germán Bradley MD Other 02/26/2013 10:07 AM EST - 02/26/2013 11:59 PM EST Hospital Encounter [address] [place] [address] Kathy Wasserman, PT Discharge Disposition: Home or Self Care 02/18/2013 12:51 PM EST - 02/18/2013 11:59 PM EST Hospital Encounter [address] [place] [address] Kathy Wasserman, PT Discharge Disposition: Home or Self Care 02/12/2013 Refill [facility] [address] [place] [address] Dustin Mcintyre MD Medication Refill 02/10/2013 9:06 AM EDT - 02/10/2013 11:59 PM EDT Hospital Encounter [facility] Physical [address] [place] [address] Kathy Wasserman, PT Discharge Disposition: Home or Self Care 02/05/2013 12:26 PM EDT - 02/05/2013 11:59 PM EDT Hospital Encounter [address] [place] [address] Kathy Wasserman, PT Discharge Disposition: Home or Self Care 02/01/2013 Refill [facility] [address] [address] Marcela Ding MD Medication Refill 01/29/2013 Telephone [facility] [address] [place] [address] Germán Bradley MD Medication Refill 01/18/2013 8:30 AM EDT - 01/18/2013 9:30 AM EDT Surgery [facility] [address] [place] [address] Crow Love MD SHOULDER ARTHROSCOPY LABRAL/BANKART/ BICEP TENODESIS (COVERS SUPERIOR LABRAL ANTERIOR POSTERIOR REPAIR/SLAP) 01/18/2013 5:21 AM EDT - 01/18/2013 12:50 PM EDT Hospital Encounter [facility] SAME DAY SURGERY [address] [place] [address] Crow Love MD Discharge Disposition: Home or Self Care 01/14/2013 Telephone [facility] [address] [place] [address] Germán Bradley MD Medication Reaction 01/08/2013 2:00 PM EDT Office Visit [facility] [address] [place] [address] Germán Bradley MD Infected inclusion cyst (Primary Dx); RLS (restless legs syndrome) 12/25/2012 12:38 PM EDT - 12/25/2012 11:59 PM EDT Hospital Encounter [facility] MRI [address] [place] [address] Germán Bradley MD Rotator cuff syndrome of left shoulder Discharge Disposition: Home or Self Care 12/20/2012 9:52 AM EDT - 12/20/2012 11:16 AM EDT Emergency [facility] [place] [address] Pino Maxwell MD Foot sprain (Primary Dx) Discharge Disposition: Home or Self Care 12/16/2012 1:45 PM EDT Office Visit [facility] [address] [facility] [place] [address] Germán Bradley MD Rotator cuff syndrome of left shoulder (Primary Dx); Need for influenza vaccination 12/15/2012 Telephone [facility] [address] [facility] [place] [address] Germán Bradley MD Referral 12/11/2012 Refill [facility] [address] [place] [address] Marcela Ding MD Medication Refill 12/11/2012 Refill [facility] [address] [facility] [place] [address] Germán Bradley MD Medication Refill 12/02/2012 11:17 AM EDT - 12/02/2012 11:59 PM EDT Hospital Encounter [facility] Physical Therapy [facility] [address] [place] [address] Chyna Mathis, PT Discharge Disposition: Home or Self Care 12/02/2012 10:00 AM EDT Office Visit [facility] [address] [place] [address] Germán Bradley MD Seborrhea (Primary Dx); Cervical lymphadenitis 11/19/2012 Refill [facility] [address] [place] [address] Germán Bradley MD Medication Refill 11/18/2012 10:41 AM EDT - 11/18/2012 11:59 PM EDT Hospital Encounter [facility] Physical Therapy [facility] [address] [place] [address] Shanice Ybarra PT Rotator cuff syndrome (Primary Dx) Discharge Disposition: Home or Self Care 11/09/2012 12:11 PM EDT - 11/09/2012 11:59 PM EDT Hospital Encounter [facility] [address] [place] [address] Scoliosis; Back pain Discharge Disposition: Home or Self Care 11/09/2012 11:30 AM EDT Office Visit [facility] [address] [place] [address] Germán Bradley MD Rotator cuff syndrome Bilateral (Primary Dx) 11/05/2012 Telephone [facility] [address] [place] [address] Germán Bradley MD Back Pain 11/03/2012 Telephone [facility] [address] [place] [address] Nelda Torres CMA Back Pain 11/02/2012 5:12 PM EDT - 11/02/2012 11:59 PM EDT Hospital Encounter [facility] PROCESSING [facility] [place] [address] Epilepsy (HCC) Discharge Disposition: Home or Self Care 11/02/2012 9:00 AM EDT Office Visit [facility] [address] [place] [address] Germán Bradley MD LBP (low back pain) (Primary Dx); Neck pain; Shoulder pain; JB (generalized anxiety disorder); Epilepsy (HCC) 10/31/2012 Refill [facility] [address] [place] [address] Nelda Torres CMA Medication Refill 10/26/2012 Refill [facility] [address] [place] [address] Germán Bradley MD Medication Refill 10/20/2012 Telephone [facility] [address] [place] [address] Dustin Mcintyre MD Other 10/14/2012 Telephone [facility] [address] [place] [address] Dustin Mcintyre MD Medication Refill; Medication Change 10/09/2012 5:34 PM EDT - 10/09/2012 11:59 PM EDT Hospital Encounter [facility] LAB [facility] [place] [address] Epilepsy (HCC); Generalized anxiety disorder Discharge Disposition: Home or Self Care 10/09/2012 Telephone [facility] [address] [place] [address] Norma Greenfield MA Medication Change 10/09/2012 8:30 AM EDT Office Visit [facility] [address] [place] [address] Dustin Mcintyre MD Epilepsy (HCC) (Primary Dx); GERD (gastroesophageal reflux disease); Asthma; Bipolar affective disorder (HCC); Generalized anxiety disorder; ED (erectile dysfunction) 06/20/2012 Refill [facility] [address] [place] [address] Marcela Ding MD Medication Refill 05/01/2012 1:57 PM EST - 05/01/2012 11:59 PM EST Hospital Encounter [facility] Physical [facility] [address] [place] [address] Kathy Wasserman, PT Discharge Disposition: Home or Self Care 04/24/2012 1:47 PM EST - 04/24/2012 11:59 PM EST Hospital Encounter [facility] [address] [place] [address] Kathy Wasserman, PT Discharge Disposition: Home or Self Care 04/17/2012 1:01 PM EST - 04/17/2012 11:59 PM EST Hospital Encounter [facility] [address] [place] [address] Kathy Wasserman, PT Discharge Disposition: Home or Self Care 04/16/2012 Refill [facility] [address] [place] [address] Marcela Ding MD Medication Refill 04/05/2012 5:08 PM EST - 04/05/2012 6:19 PM [facility] Emergency [facility] [address] [place] [address] Roshan Sanchez MD Chronic knee pain (Primary Dx) Discharge Disposition: Home or Self Care 03/09/2012 Refill [facility] [address] [place] [address] Marcela Ding MD Medication Refill 03/03/2012 Refill [facility] [address] [place] [address] Marcela Ding MD Medication Refill 02/28/2012 8:15 PM EST - 02/28/2012 11:59 PM EST Hospital Encounter [facility] [place] [address] Epilepsy (HCC); Bipolar affective disorder (HCC); Abdominal pain Discharge Disposition: Home or Self Care 02/28/2012 10:20 AM EST Office Visit [facility] [address] [place] [address] Germán Bradley MD Epilepsy (HCC); Abdominal pain; Bipolar affective disorder (HCC); Asthma; Knee pain, left 01/17/2012 Telephone [facility] [address] [place] [address] Marcela Ding MD Medication Refill 12/21/2011 Refill [facility] [address] [place] [address] Germán Bradley MD Medication Refill 12/02/2011 7:06 PM EDT - 12/02/2011 11:59 PM EDT Hospital Encounter [facility] [place] [address] Bipolar affective disorder (HCC); Encounter for long-term (current) use of medications Discharge Disposition: Home or Self Care 12/02/2011 10:20 AM EDT Office Visit [place] [address] [place] [address] Dustin Mcintyre MD Knee pain, left (Primary Dx); Epilepsy (HCC); Bipolar affective disorder (HCC); Asthma; COPD (chronic obstructive pulmonary disease) (HCC); Anxiety; Encounter for long-term (current) use of medications 10/31/2011 [address]ill [address] [place] [address] Germán Bradley MD Medication Refill 10/17/2011 Telephone [facility] [address] [place] [address] Marcela Ding MD Other 10/01/2011 3:24 PM EDT - 10/01/2011 4:31 PM EDT Emergency [facility] [address] [place] [address] Mariaelena Rossi MD Contusion of third finger, right; Left elbow contusion; Fall Discharge Disposition: Home or Self Care 09/14/2011 Refill [facility] [place] [address] [place] [address] Germán Bradley MD Medication Refill 08/23/2011 9:20 AM EDT Office Visit [place] [address] [place] [address] Germán Bradley MD Osteoarthritis (Primary Dx); Asthma; Epilepsy (HCC); Arthritis shoulder and knee; GERD (gastroesophageal reflux disease); Bipolar affective disorder (HCC); CTS (carpal tunnel syndrome) 08/07/2011 12:58 PM EDT - 08/07/2011 2:03 PM EDT [facility] [address] [place] [address] Alfie Perez MD Carpal tunnel syndrome of right wrist; Rotator cuff injury Discharge Disposition: Home or Self Care 07/10/2011 Telephone [facility] [address] [place] [address] Germán Bradley MD Other 07/02/2011 Telephone [facility] [address] [place] [address] Nelda Torres CMA Other (PA for celexa) 06/28/2011 9:51 AM EDT - 06/28/2011 11:59 PM EDT Hospital Encounter [facility] [address] [place] [address] Germán Bradley MD TMJ (dislocation of temporomandibular joint); Jaw pain; Dental decay Discharge Disposition: Home or Self Care 06/28/2011 9:20 AM EDT Office Visit [facility] [address] [place] [address] Germán Bradley MD Bipolar affective disorder (HCC); Anxiety; TMJ (dislocation of temporomandibular joint); Jaw pain; Dental decay 06/11/2011 Telephone [facility] [address] [place] [address] Marcela Ding MD Medication Refill 06/03/2011 8:09 PM EST - 06/03/2011 11:59 PM EST Hospital Encounter [facility] PROCESSING [facility] [place] [address] Bipolar affective disorder (HCC); Epilepsy (HCC) Discharge Disposition: Home or Self Care 06/03/2011 1:00 PM EST Office Visit [facility] [address] [place] [address] Germán Bradley MD Bipolar affective disorder (HCC); Asthma; Epilepsy (HCC) 05/18/2011 Refill [facility] [address] [place] [address] Germán Bradley MD Medication Refill 05/03/2011 Telephone [facility] [place] [address] [place] [address] Nelda Torres, NIESHA Other 05/03/2011 10:50 AM EST Office Visit [facility] [address] [place] [address] Germán Bradley MD Asthma (Primary Dx); Side pain; Abdominal wall pain; Bipolar affective disorder (HCC); Epilepsy (HCC) 04/17/2011 Refill [facility] [place] [address] [place] [address] Germán Bradley MD Medication Refill 03/18/2011 Telephone [place] [address] [place] [address] Cleopatra Duran Other 02/18/2011 2:20 PM EST - 02/18/2011 11:59 PM EST Hospital Encounter [facility] Physical [place] [address] [place] [address] Chyna Mathis, PT Discharge Disposition: Home or Self Care 02/11/2011 2:30 PM EDT - 02/11/2011 11:59 PM EDT Hospital Encounter [facility] Physical [place] [address] [place] [address] Chyna Mathis, PT Discharge Disposition: Home or Self Care 02/04/2011 2:24 PM EDT - 02/04/2011 11:59 PM EDT Hospital Encounter [facility] Physical Therapy [place] [address] [place] [address] Chyna Mathis, [place] Discharge Disposition: Home or Self Care 01/11/2011 Telephone [facility] [address] [address] Marcela Ding MD Other 12/28/[address] [address] Lucy Redman Rectal Bleeding 12/19/2010 2:51 PM EDT - 12/19/2010 11:59 PM EDT Hospital Encounter [facility] PROC[facility] [place] [address] Elevated glucose Discharge Disposition: Home or Self Care 12/19/2010 10:30 AM EDT Office Visit [address] [address] Germán Bradley MD Bipolar affective disorder (HCC); Epilepsy (HCC); Asthma; AR (allergic rhinitis); GERD (gastroesophageal reflux disease); Arthritis shoulder and knee; Elevated glucose 12/14/[address] [address] Lucy Redman Medication Refill 12/14/[address] [address] Germán Bradley MD Medication Refill 12/12/2010 1:22 PM EDT - 12/12/2010 2:55 PM EDT Emergency [facility] [address] [place] [address] Ty Griffiths, Fibula fracture Discharge Disposition: Home or Self Care 12/08/[address] [address] Inge Quinn, ARMOND Results 11/21/2010 8:29 PM EDT - 11/21/2010 11:59 PM EDT Hospital Encounter [facility] PROC[facility] [place] [address] Lipid screening; Epilepsy (HCC); Encounter for long-term (current) use of medications Discharge Disposition: Home or Self Care 11/21/2010 10:30 AM EDT Clinical Support [address] [place] [address] Oralia Cruz Sabine Bipolar affective disorder (HCC); Epilepsy (HCC); Lipid screening; Encounter for long-term (current) use of medications 11/09/[address] [place] [address] Germán Bradley MD Medication Refill 07/31/2010 2:00 PM EDT Office Visit [address] [place] [address] Germán Bradley MD Asthma; Bronchitis; Rotator cuff syndrome 07/30/[address] [place] [address] Lucy Redman Marquis Other 05/02/2010 11:30 AM EST Office Visit [address] [place] [address] Germán Bradley MD Epilepsy (HCC); Bipolar affective disorder (HCC); Asthma; COPD (chronic obstructive pulmonary disease) ([facility]); GERD (gastroesophageal reflux disease); Osteoarthritis 04/30/2010 10:08 AM EST - 04/30/2010 11:59 PM EST Hospital Encounter EDG LAB KELVIN PROCESSING [facility] [place] [address] Marcela Ding MD Encounter for long-term (current) use of other medications; Epilep NOS w/o intr epil; Bipolar disorder NOS Discharge Disposition: Home or Self Care 04/30/2010 9:50 AM EST Clinical Support [address] [place] [address] Nelly Owusu RMA Epilepsy (HCC); Bipolar affective disorder ([facility]) [address] [place] [address] AnthonyOralia A Letter for School/Work ([employer] form) 04/13/2010 Refill SEP [address] [place] [address] Germán Bradley MD Medication Refill 03/17/2010 Refill SEP [address] [place] [address] Germán Bradley MD Medication Refill 02/12/2010 Refill SEP [address] [place] [address] Germán Bradley MD Medication Refill 01/16/2010 11:10 AM EDT Office Visit [address] [place] [address] Germán Bradley MD COPD (chronic obstructive pulmonary disease) ([facility]); Osteoarthritis of knee 12/21/2009 Refill SEP [address] [place] [address] Marcela Ding MD Medication Refill 12/07/[address] [place] [address] Dustin Mcintyre MD Medication Refill 11/07/2009 7:59 PM EDT - 11/07/2009 11:59 PM EDT Hospital Encounter HST SUWT EDG Germán Bradley MD 11/07/2009 3:20 PM EDT Office Visit [address] [place] [address] Germán Bradley MD PUD (peptic ulcer disease) (Primary Dx); Bipolar affective disorder ([facility]); Asthma; AR (allergic rhinitis) 11/04/2009 10:43 PM EDT - 11/05/2009 12:41 AM EDT Emergency HST GES GRT Ty Griffiths, DO 10/12/2009 12:01 AM EDT - 10/26/2009 1:28 PM EDT Hospital Encounter HST PT Germán Odom MD 10/25/2009 9:30 AM EDT Office Visit SEP [facility] [address] [place] [address] Germán Bradley MD AR (allergic rhinitis); GERD (gastroesophageal reflux disease); Rotator cuff syndrome; Bipolar affective disorder (HCC); Asthma; Epilepsy (HCC) 09/12/2009 12:01 AM EDT - 10/11/2009 11:59 PM EDT Hospital Encounter HST PT Marcela Villanueva MD Burke, Brennan C, MD 09/28/2009 Telephone SEP [facility] [address] [place] [address] Nelly Owusu RMA Medication Problem 09/27/2009 Telephone SEP [facility] [address] [place] [address] Veronica Freed MA Other 09/27/2009 1:20 PM EDT Office Visit [facility] [address] [place] [address] Germán Bradley MD Rotator cuff syndrome; AR (allergic rhinitis); GERD (gastroesophageal reflux disease) 09/14/2009 2:06 AM EDT - 09/14/2009 11:59 PM EDT Emergency HST GES GRT Ty Blake, DO 08/24/2009 2:55 PM EDT - 09/11/2009 11:59 PM EDT Hospital Encounter HST PT Marcela Villanueva MD 09/05/2009 Telephone SEP [facility] [address] [place] [address] Germán Bradley MD Results 09/05/2009 Telephone SEP [facility] [address] [place] [address] Dustin Mcintyre MD Results 09/01/2009 12:01 AM EDT - 09/01/2009 11:59 PM EDT Hospital Encounter HST RADIOLOGY GRT Marcela Ding MD 08/26/2009 Telephone SEP [facility] [address] [place] [address] Germán Bradley MD Results 08/24/2009 3:04 PM EDT - 08/24/2009 11:59 PM EDT Hospital Encounter HST RADIOLOGY GRT Marcela Ding MD 08/24/2009 2:30 PM EDT Office Visit [facility] [address] [place] [address] Marcela Ding MD Shoulder pain (Primary Dx) 08/15/2009 Refill SEP [facility] [address] [place] [address] TorresNelda [facility] Medication Refill 07/25/2009 5:37 PM EDT - 07/25/2009 11:59 PM EDT Hospital Encounter HST SUWT EDG Dustin Mcintyre MD 07/25/2009 3:00 PM EDT Office Visit [facility] [address] [place] [address] Germán Bradley MD Rotator cuff syndrome; Epilepsy (HCC); Encounter for long-term (current) use of other medications 06/26/2009 8:46 AM EDT - 06/26/2009 11:59 PM EDT Hospital Encounter HST RADIOLOGY GRT Wang Ospina 06/15/2009 Telephone SEP [facility] [address] [place] [address] Germán Bradley MD Other 06/15/2009 2:00 PM EST Office Visit [facility] [address] [place] [address] Germán Bradley MD Shoulder pain; Bipolar affective disorder (HCC) 06/06/2009 Telephone SEP [facility] [address] [place] [address] Nelda Torres, SIGN SHOP SUPERVISOR Seizures 05/30/2009 5:31 PM EST - 05/30/2009 11:59 PM EST Hospital Encounter HST EPIC CON UNK EDG Dustin Mcintyre MD 04/20/2009 Abstract SEP [facility] [address] [place] [address] [facility], Test Manufacturer'S Service Representative Epilepsy (HCC); Bipolar affective disorder (HCC); Depression, major (HCC); Asthma; COPD (chronic obstructive pulmonary disease) ([facility]); Hearing loss in left ear; GERD (gastroesophageal reflux disease) 02/14/2009 4:29 PM EST - 02/14/2009 11:59 PM EST Hospital Encounter HST EPIC CON UNK EDuDstin Mauro MD 01/24/2009 7:06 PM EDT - 01/24/2009 7:58 PM EDT Emergency HST EPIC CON UNK GRT Roni Shaffer MD 11/11/2008 12:41 PM EDT - 11/11/2008 11:59 PM EDT Hospital Encounter HST LAB EDG Germán Bradley MD 09/19/2008 12:01 AM EDT - 09/19/2008 11:59 PM EDT Hospital Encounter HST RADIOLOGY MICHELLET Germán Bradley MD 09/09/2008 1:51 PM EDT - 09/09/2008 11:59 PM EDT Hospital Encounter HST RADIOLOGY MICHELLET Germán Bradley MD 08/08/2008 9:02 PM EDT [...] EDT Emergency HST EPIC CON UNK GRT Rohsan Sanchez MD 12/01/2006 7:55 PM EDT - [...] 1:00 PM EST Hospital Encounter HST [facility] Generic, Historical Provider 06/13/2004 9:46 PM EST - 06/13/2004 10:40 PM EST Emergency HST EPIC CON UNK GRT Jerson Go MD 05/02/2004 1:51 PM EST - 05/02/2004 11:59 PM EST Hospital Encounter HST RADIOLOGY GRT Threlkeld, Dustin Riley, MD 02/14/2004 3:12 PM EST - 02/14/2004 11:59 PM EST Hospital Encounter HST LAB EDG Dustin Mcintyre MD 09/26/2003 11:53 AM EDT - 09/26/2003 11:59 PM EDT Hospital Encounter HST LAB GRT Dustin Mcintyre MD 09/17/2003 3:15 PM EDT - 09/17/2003 4:00 PM EDT Emergency HST EPIC CON UNK GRT Oswald Lciea MD 09/16/2003 4:04 PM EDT - 09/16/2003 11:59 PM EDT Hospital Encounter HST LAB GRT Tomy Alfie, DO 09/13/2003 12:04 PM EDT - 09/13/2003 11:59 PM EDT Hospital Encounter HST LAB GRT Tomy Alfie, DO 06/10/2003 11:51 PM EST - 06/11/2003 12:05 AM EST Emergency HST EPIC CON UNK GRT Rasta Oneal MD 06/10/2003 2:59 PM EST - 06/10/2003 3:55 PM EST Emergency HST EPIC CON UNK GRT Augustine Baldwin MD 04/23/2003 12:43 PM EST - 04/23/2003 2:00 PM EST Emergency HST EPIC CON UNK GRT Kelsey Ramirez MD 04/21/2003 1:56 PM EST - [...] EST Emergency HST EPIC CON UNK GRT Kelsey Miller MD 06/03/2002 1:31 PM EST - 06/03/2002 11:59 PM EST Hospital Encounter HST LAB EDG Dustin Mcintyre MD 06/01/2002 7:46 PM EST - 06/01/2002 8:00 PM EST Emergency HST EPIC CON UNK GRT Oswald Licea MD 05/14/2002 9:17 AM EST - 05/14/2002 11:59 PM EST Hospital Encounter HST RADIOLOGY MICHELLET Koffi Cunningham 05/11/2002 8:08 PM EST - 05/11/2002 9:45 PM EST Emergency HST EPIC CON UNK GRT David Palma MD 05/10/2002 1:48 PM EST - 05/10/2002 11:59 PM EST Hospital Encounter HST RADIOLOGY MICHELLET Koffi Cunningham 05/08/2002 8:23 PM EST - [...] EST Emergency HST EPIC CON UNK GRT Kelsey Miller MD 03/22/2002 4:46 PM EST - 03/22/2002 5:15 PM EST Emergency HST EPIC CON UNK GRT Oswald Licea MD 03/15/2002 5:03 PM EST - 03/15/2002 11:59 PM EST Hospital Encounter HST LAB EDG Mehrdad Paiz DO 02/07/2002 1:28 PM EST - 02/07/2002 2:12 [...] EDT Hospital Encounter HST LAB EDG Koffi 10/27/2001 5:23 PM EDT - 10/27/2001 11:59 [...] HST EPIC CON UNK GRT Ty Blake, 08/07/2000 11:39 AM EDT - 08/07/2000 11:59 [...] PM EDT Hospital Encounter HST GC SPEC SVC GRKasi Marte MD 01/25/1999 5:20 PM EDT - 01/25/1999 11:59 PM EDT Hospital Encounter HST LAB EDG Dustin Mcintyre MD 12/26/1998 3:57 PM EDT - 12/26/1998 11:59 PM EDT Hospital Encounter HST LAB EDG Koffi Cunningham 11/20/1998 8:41 AM EDT - 11/20/1998 11:59 PM EDT Hospital Encounter HST GC SPEC SVC GRT Hi Andrade MD 05/12/1998 2:11 PM EST [...] Hospital Encounter HST EPIC CON UNK EDG [facility] 05/26/1997 6:49 PM EST - 05/26/1997 11:59 PM EST Emergency HST MAJOR ER EDG Tunde Ty Monroy, 12/26/1996 7:54 PM EDT - 12/26/1996 11:59 PM EDT Hospital Encounter HST EPIC CON UNK COV [facility] 10/18/1996 5:34 PM EDT - 10/18/1996 11:59 PM EDT Emergency HST EPIC CON UNK EDG Augustine Baldwin MD 10/11/1996 10:10 AM EDT - 10/11/1996 12:10 PM EDT Hospital Encounter HST SAS Jaime Grover MD 03/13/1996 6:17 PM EST - 03/13/1996 11:59 PM EST Hospital Encounter HST EPIC CON UNK COV [facility] 01/21/1996 7:05 PM EDT - 01/21/1996 11:59 PM EDT Hospital Encounter HST EPIC CON UNK COV [facility] 01/01/1996 8:11 PM EDT - 01/06/1996 2:05 PM EDT Hospital Encounter HST BH2 Rosa Clark MD 12/26/1995 8:21 AM EDT - 12/26/1995 11:59 PM EDT Hospital Encounter HST EPIC CON UNK COV [facility] 10/26/1995 9:59 PM EDT - 10/30/1995 1:44 PM EDT Hospital Encounter HST BH2 Wang Rosales MD Cohen, Raymond L 10/12/1995 7:54 PM EDT - 10/12/1995 11:59 PM EDT Hospital Encounter HST EPIC CON UNK COV [facility] 10/04/1995 9:50 PM EDT - 10/07/1995 12:05 [...] 9 Active fluticasone (FLONASE) 50 mcg/actuation Nasl Roscoe, SuspensionIndicati ons:Chronic seasonal allergic rhinitis due to [...] Mother 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 Smoking Status as of 01/24/2025 Tobacco Use Types Packs/Day Years Used Date [...] on file Medical Devices Implanted Type Area Oracle Sql Developer Device Identifier Shelf Expiration Date Model / Serial / Lot [place] Lupine Br W/Dual Suture Orthocord - [id number] Implanted:Qty : 1 on 01/18/2013 by Crow Love MD at [facility] Left: Shoulder J&J:ETHICON:MITE K PRDT [id number] 06/12/2015 [id number] / / [id number] [place] Lupine Br W/Dual Suture Orthocord - [id number] Implanted:Qty : 1 on 01/18/2013 by Crow Love MD at [facility] Left: Shoulder J&J:ETHICON:MITE K PRDT [id number] 06/11/2014 [id number] / / [id number] [place] Advance Healix 5.5 Br - [id number] Implanted:Qty : 1 on 06/20/2015 by Crow Love MD at [facility] Right: Shoulder J&J:ETHICON:MITE K PRDT 05/14/2017 [id number] / / [id number] Procedures Procedure Name Priority Date/Time Associated Diagnosis [...] 15REV; CHG SITE FROM LEFT PER SEPIDEH FAUSTIN 06/10 PULMONARY FUNCTION TEST Routine 05/06/2016 8:51 [...] meniscus of knee, current Special Needs FAX CPT;29018 [id number] POCT EKG Routine 06/08/2014 10:16 AM EST [...] AM EDT Chronic maxillary sinusitis Special Needs [place] CPT; 95611/49887 HEPATIC FUNCTION PANEL Routine 4 11:31 AM [...] EDT Rotator cuff (capsule) sprain Special Needs CPT;23517 [id number] MRI SHOULDER LEFT WO CONTRAST Routine 12/25/2012 [...] - 946 pg/mL 06/01/2018 4:11 PM EST [facility] Folate >16.00(H) 4.50 - 16.00 ng/mL 06/01/2018 4:11 PM EST [facility] Blood VENOUS BLOOD / Unknown Venipuncture / Unknown 06/01/2018 10:14 AM EST 06/01/2018 10:14 AM EST Narrative [facility] - 06/01/2018 4:11 PM EST Ingestion of roxanna doses of biotin (>5 mg/day) taken within 8 hours of drawing blood sample can interfere with this immunoassay test. us Dustin Mcintyre MD CHEMISTRY ORDERABLES F inal Result [facility] [address] [facility] , [place] [address] * TSH REFLEX (06/01/2018 10:14 AM EST) TSH Reflex 1.640 0.270 - 4.200 mcIU/mL 06/01/2018 3:53 PM EST [facility] Blood VENOUS BLOOD / Unknown Venipuncture / Unknown 06/01/2018 10:14 AM EST 06/01/2018 10:14 AM EST Narrative [facility] - 06/01/2018 3:53 PM EST Ingestion of roxanna doses of biotin (>5 mg/day) taken within 8 hours of drawing blood sample can interfere with this immunoassay test. Dustin Mcintyre MD CHEMISTRY ORDERABLES F inal Result Performing Organization Address [facility] Co de Phone Number [facility] [address] [place] [address] , [place] [address] * (ABNORMAL) ACUTE HEPATITIS PANEL (06/01/2018 10:14 AM EST) Only the most recent of2 resultswithin the time period is included. Pathologist [facility] [place] Hep Bs Ag Non-Reacti ve Non-Reacti ve 06/02/2018 11:57 AM EST [facility] Hep B Core IgM Non-Reacti ve Non-Reacti ve 06/02/2018 11:57 AM EST [facility] Hep A IgM Non-Reacti ve Non-Reacti ve 06/02/2018 11:57 AM EST [facility] Hep C Ab Reactive(A ) Non-Reacti ve 06/02/2018 11:57 AM EST [facility] Comment:Reactive. Antibodies to HCV detected. >97% of specimens with high signal cutoff confirm as reactive. HCV QUANT W/RFLX TO GENOTYPE -REF LAB Blood VENOUS BLOOD / Unknown Venipuncture / Unknown 06/01/2018 10:14 AM EST 06/01/2018 10:14 AM EST Dustin Mcintyre MD CHEMISTRY ORDERABLES F inal Result Performing Organization Address [facility] Co de Phone Number [facility] [address] , [place] [address] * (ABNORMAL) CBC WITH DIFF (06/01/2018 10:14 AM EST) Only the most recent of16 resultswithin the time period is included. Pathologist [facility] [place] WBC 6.6 3.7 - 10.3 x10(3)/mcL 06/01/2018 [...] 3:19 PM EST [facility] [place] Percent 11.4 % 06/01/2018 3:19 PM EST [facility] Eos Percent 3.8 % 06/01/2018 3:19 PM EST [facility] Baso Percent 0.6 % 06/01/2018 3:19 PM EST [facility] Neut # 3.4 1.6 - 6.1 x10(3)/mcL 06/01/2018 3:19 PM EST [facility] Comment:Neutrophils equals s egs plus bands IMMGRAN# 0.0 0.0 - 0.1 x10(3)/mcL 06/01/2018 3:19 PM EST [facility] Comment:Automated count of m etamyelocytes, myelocytes and promyelocytes. An absolute IG <0.1 is reported as 0.0. Lymph # 2.1 1.2 - 3.9 x10(3)/mcL 06/01/2018 3:19 PM EST [facility] [place] # 0.8 0.3 - 0.9 x10(3)/[facility] [place] 06/01/2018 3:19 PM EST [facility] Eos# 0.3 0.0 - 0.5 x10(3)/[facility] 06/01/2018 3:19 PM EST [facility] Baso # 0.0 0.0 - 0.1 x10(3)/[facility] 06/01/2018 3:19 PM EST [facility] Blood VENOUS BLOOD / Unknown Venipuncture / Unknown 06/01/2018 10:14 AM EST 06/01/2018 10:14 AM EST Dustin Mcintyre MD HEMATOLOGY ORDERABLES Final Result Performing Organization Address [facility] Co de Phone Number [facility] [address] , [place] [address] * (ABNORMAL) PHENYTOIN LEVEL TOTAL (06/01/2018 10:14 AM EST) Only the most recent of20 resultswithin the time period is included. Dilantin 9.0(L) 10.0 - 20.0 mcg/mL 06/01/2018 3:51 PM EST [facility] Blood VENOUS BLOOD / Unknown Venipuncture / Unknown 06/01/2018 10:14 AM EST 06/01/2018 10:14 AM EST Dustin Mcintyre MD CHEMISTRY ORDERABLES F inal Result Performing Organization Address [facility] Co de Phone Number [facility], [address] , [place] [address] * (ABNORMAL) COMPREHENSIVE METABOLIC PANEL (06/01/2018 10:14 [...] mL/min/1.7 3 m2 06/01/2018 3:53 PM EST [facility] GFR Non Afr Am 96 >=60 mL/min/1.7 3 m2 06/01/2018 3:53 PM EST [facility] Comment: This estimated GFR was [...] CHEMISTRY ORDERABLES F inal Result [facility] [address] [facility], [place] [address] [facility] [address] [place] [address] * POCT URINALYSIS DIPSTICK (06/01/2018 9:40 AM EST) Only the most recent of4 resultswithin the time period is included. 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 Grav, UA 1.025 1.001 - 1.035 G/DL SEP OFFICE Blood, UA neg POS/NEG SEP OFFICE pH, UA 6.0 5.0 - 8 SEP OFFICE Protein, UA neg POS/NEG SEP OFFICE Urobilinogen, UA 1+ 0.2 - 1.0 MG/DL SEP OFFICE Leukocytes, UA neg POS/NEG SEP OFFICE Nitrite, UA neg POS/NEG SEP OFFICE UA Appear POC SEP OFFICE Lot Number [id number] SEP OFFICE Expiration Date 12/22/2019 SEP OFFICE SeriAl # SEP OFFICE Urine 06/01/2018 9:40 AM EST Dustin Mcintyre MD POINT OF CARE TEST [...] 207(H) <=200 mg/dL 12/05/2017 3:59 PM EDT [facility] Comment: < 200 Desirable 200 - 239 Borderline High >= 240 High Triglyceride 316(H) <=150 mg/dL 12/05/2017 3:59 PM EDT [facility] Comment: < 150 Normal 150 - 199 Borderline High 200 - 499 High >= 500 Very High HDL 33(L) >=40 mg/dL 12/05/2017 3:59 PM EDT [facility] Comment: > 60 Optimal 40 - 60 Acceptable < 40 Low LDL Calculated 111(H) <=100 mg/dL 12/05/2017 3:59 PM EDT [facility] Non-HDL-C Calculated 174(H) <=129 mg/dL 12/05/2017 3:59 PM EDT [facility] Comment: <130 Desirable 130-159 Above Desirable 160-189 Borderline High 190-219 High >= 220 Very High Blood VENOUS BLOOD / Unknown Venipuncture / Unknown 12/05/2017 9:03 AM EDT 12/05/2017 9:03 AM EDT us Germán Bradley MD CHEMISTRY ORDERABLES Final Re sult [facility] [address] [facility] , [address] [place] [id number] * DRUGS OF ABUSE, SCREEN ONLY, URINE (06/30/2017 10:59 PM EDT) Only the most recent of2 resultswithin the time period is included. 6 AM (Heroin) Absent Absent 06/30/2017 11:29 PM EDT [facility] Amphetamines Absent Absent 06/30/2017 11:29 PM EDT [facility] Barbiturates Absent Absent 06/30/2017 11:29 PM EDT [facility] Benzodiazepines Absent Absent 8 11:29 PM EDT [facility] Buprenorphine Absent Absent 06/30/2017 11:29 PM EDT [facility] Cannabinoid Metabolite Absent Absent 06/30/2017 11:29 PM EDT [facility] Cocaine Metabolite Absent Absent 2017 11:29 PM EDT [facility] Methadone and Metabolite Absent Absent 06/30/2017 11:29 PM EDT [facility] Opiate Absent Absent 06/30/2017 11:29 PM EDT [facility] Oxycodone Lvl Absent Absent 06/30/2017 11:29 PM EDT [facility] Phencyclidine Absent Absent 06/30/2017 11:29 PM EDT [facility] Creatinine Ur >25.0 mg/dL 06/30/2017 11:29 PM EDT [facility] Comment: Greater than 20: Consistent with valid sample Greater than 2 but less than 20: Possible dilution Less than 2: Questionable valid sample Urine STRUCTURE OF URINARY TRACT PROPER / Unknown 06/30/2017 10:59 PM EDT 06/30/2017 11:03 PM EDT Narrative [facility] - 06/30/2017 11:29 PM EDT [...] ORDERABLES Final Resul t Performing Organization Address [facility] de Phone Number [facility] [address] [place] [address] * EXTRA GOLD SST (06/30/2017 10:18 PM EDT) Blood VENOUS BLOOD / Unknown Venipuncture / Unknown 06/30/2017 10:18 PM EDT 06/30/2017 10:27 PM EDT Robbie Queen MD CHEMISTRY ORDERABLES Final Resul t Performing Organization Address [facility] Phone Number [facility] [address] [place] [address] * EXTRA LAVENDER (06/30/2017 10:18 PM EDT) Blood VENOUS BLOOD / Unknown Venipuncture / Unknown 06/30/2017 10:18 PM EDT 06/30/2017 10:27 PM EDT Robbie Queen MD HEMATOLOGY ORDERABLES Final Resu lt Performing Organization Address [facility] de Phone Number [facility] [address] [place] [address] * EXTRA LIGHT BLUE (06/30/2017 10:18 PM EDT) Only the most recent of2 resultswithin the time period is included. Blood VENOUS BLOOD / Unknown Venipuncture / Unknown 06/30/2017 10:18 PM EDT 06/30/2017 10:27 PM EDT Robbie Queen MD HEMATOLOGY ORDERABLES Final Resu lt Performing Organization Address [facility] Phone Number [facility] [address] [place] [address] * (ABNORMAL) ALCOHOL MEDICAL (06/30/2017 10:18 PM EDT) Only the most recent of2 resultswithin the time period is included. Alcohol Medical 36(H) <=10 mg/dL 06/30/2017 10:39 PM EDT [facility] Blood VENOUS BLOOD / Unknown Venipuncture / Unknown 06/30/2017 10:18 PM EDT 06/30/2017 10:26 PM EDT us Robbie Queen MD CHEMISTRY ORDERABLES Final Resul t Performing Organization Address [facility] de Phone Number [facility] [address] [place] [address] * ACETAMINOPHEN LEVEL (06/30/2017 10:18 PM EDT) Only the most recent of2 resultswithin the time period is included. Acetaminophen Lvl <15.0 mcg/mL 018 11:16 PM EDT [facility] Blood VENOUS BLOOD / Unknown Venipuncture / Unknown 06/30/2017 10:18 PM EDT 06/30/2017 10:27 PM EDT Narrative [facility] - 06/30/2017 11:16 PM EDT Therapeutic: 10-30 mcg/ml Supratherapeutic: > 35 mcg/ml Toxic: > 150 mcg/ml (4h post ingestion) > 75 mcg/ml (8h post ingestion) > 40 mcg/ml (12h post ingestion) us Holly Brannon APRN CHEMISTRY ORDERABLES Final R esult Performing Organization Address [facility] de Phone Number [facility] [address] [place] [address] * SALICYLATE LEVEL (06/30/2017 10:18 PM EDT) Only the most recent of2 resultswithin the time period is included. Salicylate <0.3 <=0.3 mg/dL 06/30/2017 11:16 PM EDT [facility] Blood VENOUS BLOOD / Unknown Venipuncture / Unknown 06/30/2017 10:18 PM EDT 06/30/2017 10:27 PM EDT us Holly Brannon CLOUD ADMINISTRATOR CHEMISTRY ORDERABLES Final R esult [facility] [address] [place] [address] * (ABNORMAL) BASIC METABOLIC PANEL (06/30/2017 10:18 PM EDT) Only the most recent of5 resultswithin the time period is included. Sodium 142 136 - 145 mmol/L 06/30/2017 11:16 PM EDT [facility] Potassium 4.1 3.5 - 5.0 mmol/L 06/30/2017 11:16 PM EDT [facility] Chloride 101 98 - 107 mmol/L 06/30/2017 11:16 PM EDT [facility] Total CO2 26 22 - 29 mmol/L 06/30/2017 11:16 PM EDT [facility] Anion Gap 15 7 - 16 mmol/L 06/30/2017 11:16 PM EDT [facility] Calcium 9.4 8.6 - 10.2 mg/dL 06/30/2017 11:16 PM EDT [facility] Glucose Lvl 115(H) 74 - 100 mg/dL 06/30/2017 11:16 PM EDT [facility] BUN 12 6 - 20 mg/dL 06/30/2017 11:16 PM EDT [facility] Creatinine 0.96 0.67 - 1.30 mg/dL 06/30/2017 11:16 PM EDT [facility] GFR Afr Am 110 mL/min/1.7 3 m2 06/30/2017 11:16 PM EDT [facility] GFR Non Afr Am 95 mL/min/1.7 3 m2 06/30/2017 11:16 PM EDT [facility] Comment: GFR Afr Am and [...] 06/30/2017 10:26 PM EDT us Holly Brannon APRN CHEMISTRY ORDERABLES Final R esult [facility] [address] [id number] * XR WRIST RIGHT PA LATERAL AND OBLIQUE (05/26/2017 9:46 PM EST) Anatomical Region Laterality Modality Wrist Radiographic Thao ging 05/26/2017 9:46 PM EST Impressions 05/26/2017 10:07 PM EST Negative exam. Narrative 05/26/2017 10:07 PM EST XR WRIST RIGHT PA LATERAL AND OBLIQUE, 05/26/2017 9:46 PM CLINICAL HISTORY: -MEDICAL CLEARANCE FOR ASSISTED COMPARISON: None. PROCEDURE COMMENTS: 4 routine views of the right wrist. FINDINGS: No fracture, dislocation or radio-opaque foreign body. Navicular fractures can be occult on initial radiographs. If there is snuff-box tenderness consider follow-up radiographs in 10 to 14 days. Procedure Note Mauro Rosas MD - 05/26/2017 XR WRIST RIGHT PA LATERAL AND OBLIQUE, 05/26/2017 9:46 PM CLINICAL HISTORY: -MEDICAL CLEARANCE FOR ASSISTED COMPARISON: None. PROCEDURE COMMENTS: 4 routine views of the right wrist. FINDINGS: No fracture, dislocation or radio-opaque foreign body.Navicular fractures can be occult on initial radiographs. If there is snuff-boxtenderness consider follow-up radiographs in 10 to 14 days. IMPRESSION: Negative exam. us Gómez D Fountain CLOUD ADMINISTRATOR IMG DIAGNOSTIC IMAGING OR DERABLES Final Result [...] 9:45 PM CLINICAL HISTORY: -MEDICAL CLEARANCE FOR ASSISTED COMPARISON: None. PROCEDURE COMMENTS: 3 routine radiographs [...] 9:45 PM CLINICAL HISTORY: -MEDICAL CLEARANCE FOR ASSISTED COMPARISON: None. PROCEDURE COMMENTS: 3 routine radiographs [...] of fourth finger as described. Gómez Reis CLOUD ADMINISTRATOR IMG DIAGNOSTIC IMAGING OR DERABLES Final Result * EXTRA DORADO URINE CX (04/16/2017 1:05 AM EST) Urine URINE SPECIMEN COLLECTION, CLEAN CATCH / Unknown 04/16/2017 1:05 AM EST 04/16/2017 1:17 AM EST Jose Carlos Rasheed MD MICROBIOLOGY - GENERAL ORDERAB LES Final Result [facility] [address] [place] [address] * URINALYSIS (04/16/2017 1:05 AM EST) Only the most recent of3 resultswithin the time period is included. UA Color Yellow 04/16/2017 1:20 AM [facility] UA Appear Clear Clear 04/16/2017 1:20 AM EST [facility] UA Glucose Negative Negative mg/dL 04/16/2017 1:20 AM EST [facility] UA Ketones Negative Negative mg/dL 04/16/2017 1:20 AM EST [facility] UA Blood Negative Negative 04/16/2017 1:20 AM [facility] UA pH 6.0 5.0 - 8.0 pH 04/16/2017 1:20 AM [facility] UA Protein Negative Negative mg/dL 04/16/2017 1:20 AM [facility] UA Urobilinogen 0.2 <=1 E.U./dL 04/16/19 18 1:20 AM [facility] UA Nitrite Negative Negative 04/16/2017 1:20 AM [facility] UA Leuk Est Negative Negative 04/16/2017 1:20 AM [facility] UA Spec Grav 1.025 1.001 - 1.035 no units 04/16/2017 1:20 AM [facility] Comment: Reference range valid for random specimens only. Urine URINE SPECIMEN COLLECTION, CLEAN CATCH / Unknown 04/16/2017 1:05 AM EST 04/16/2017 1:17 AM EST Jose Carlos Rasheed MD URINE ORDERABLES Final Result [facility] [address] [place] [address] * LDL, CALCULATED (01/07/2017 10:30 AM EDT) Only the most recent of4 resultswithin the time period is included. Pathologist [facility] [place] LDL Calculated 51 <=100 mg/dL [facility] Comment: < 100 Optimal 100 - 129 Near or above optimal 130 - 159 Borderline High 160 - 189 High >= 190 Very High Blood specimen (specimen) 01/07/2017 10:30 AM EDT 01/07/2017 3:48 PM EDT Dustin Mcintyre MD CHEMISTRY ORDERABLES F inal Result Performing Organization Address [facility] Co de Phone Number [facility] [address] [place] [address] * (ABNORMAL) DIFFERENTIAL (01/07/2017 10:30 AM EDT) Only the most recent of11 resultswithin the time period is included. Neut Percent 48.5 % [facility] Lymph Percent 34.1 % [facility] [place] Percent 9.2 % [facility] Eos Percent 6.9 % [facility] Baso Percent 1.3 % [facility] Neut# 3.9 1.8 - 7.7 x10(3)/mcL [facility] Lymph# 2.7 0.6 - 4.8 x10(3)/mcL [facility] [place]# 0.7 0.0 - 1.3 x10(3)/[facility] Eos# 0.6(H) 0.0 - 0.5 x10(3)/[facility] Baso# 0.1 0.0 - 0.2 x10(3)/[facility] Blood specimen (specimen) 01/07/2017 10:30 AM EDT 01/07/2017 3:48 PM EDT Dustin Mcintyre MD HEMATOLOGY ORDERABLES Final Result Performing Organization Address [facility]/ZIP Co de Phone Number [facility] [address] [place] [address] * XR KNEE RIGHT AP LAT INT [...] AM EST) 05/06/2016 8:51 AM EST Impressions [facility] - 05/06/2016 8:51 AM EST [...] Germán Bradley MD PFT ORDERABLES Final Result [facility] [address] [place] [address] * POCT EKG (04/29/2016 2:23 PM EST) Only the most recent of4 resultswithin the time period is included. 04/29/2016 2:23 PM EST Impressions SEP OFFICE - 04/29/2016 2:23 PM EST nsr No ischemia Normal ekg Germán Bradley MD POINT OF CARE CARDIOLOGY Zayra l Result Performing Organization Address [facility]/ZIP Co de Phone Number SEP OFFICE * SYPHILIS SCREEN WITH REFLEX RPR QUANT (04/01/2016 4:37 PM EST) TREP(SYPHILIS) AB INDEX <0.10 <=1.09 Index Value [facility] Comment: <0.90 - Negative 0.90 to 1.00 - Equivocal Patients with equivocal results should be retested in 7-14 days. >=1.10 - Positive NOTE: All equivocal and positive results will be reflexed to Quantitative Non-Treponemal(RPR)test. Blood specimen (specimen) UPPER LIMB STRUCTURE / Unknown 04/01/2016 4:37 PM EST 04/01/2016 8:41 PM EST Germán Bradley MD CHEMISTRY ORDERABLES Final Re sult Performing Organization Address [facility]/[place] [address] * XR LUMBAR SPINE AP AND LATERAL [...] osseous abnormality identified in the lumbar spine. Result [facility] Michelle Shirley MD [facility] DIAGNOSTIC IMAGING ORDERABLE S Final Result * [facility] LOWER EXTREMITY VENOUS LEFT (06/23/2015 6:16 PM [...] contralateral right commonfemoral vein. Wang Harmon MD Result [facility] Elina Hall MD G VASCULAR ORDERABLES Fin al Result * SCANNED RHYTHM STRIPS (06/22/2015 11:55 PM EST) Only the most recent of3 resultswithin the time period is included. Anatomical Region Laterality Modality Other 06/22/2015 11:5 5 PM EST Result [facility] Unknown Unknown IM ECG ORDERABLES Final Result * PERIPHERAL BLOCK (06/20/2015 7:47 AM EST) Narrative [facility] - 06/20/2015 7:47 AM EST [...] bill Result - Final Performing Organization Address [facility] [place] [address] * LDL DIRECT (04/20/2015 9:44 AM EST) Only the most recent of5 resultswithin the time period is included. LDL Direct 65 <=100 mg/dL [facility] Comment: < 100 Optimal 100 - 129 Near or above optimal 130 - 159 Borderline High 160 - 189 High >= 190 Very High Blood specimen (specimen) 04/20/2015 9:44 AM EST 04/20/2015 3:48 PM EST us Germán Bradley MD CHEMISTRY ORDERABLES Final Re sult Performing Organization Address [facility] Co de Phone Number [facility] [address] [place] [address] * MRI SHOULDER RIGHT WO CONTRAST (03/22/2015 [...] joint changeswithout undersurface spur. Dustin Mcintyre MD [facility] MRI ORDERABLES Fin al Result * CBC (11/04/2014 10:36 AM EDT) Only the most recent of4 resultswithin the time period is included. WBC 7.2 4.0 - 11.0 x10(3)/mcL [facility] RBC 4.86 4.30 - 5.81 x10(6)/mcL [facility] Hgb 16.1 13.5 - 17.1 gm/dL [facility] Hct 47.6 38.9 - 51.6 % [facility] MCV 97.9 82.5 - 99.8 fL [facility] MCH 33.1 27.0 - 34.3 pg [facility] MCHC 33.8 32.1 - 35.3 gm/dL [facility] RDW 13.6 11.5 - 15.0 % [facility] Platelet 211 144 - 423 x10(3)/mcL [facility] MPV 9.2 6.8 - 10.8 fL [facility] Blood specimen (specimen) UPPER LIMB STRUCTURE / Unknown 11/04/2014 10:36 AM EDT 11/04/2014 4:05 PM EDT us Dustin Mcintyre MD HEMATOLOGY ORDERABLES Final Result Performing Organization Address City/State/[facility] Co de Phone Number [facility] [address] [place] [address] * SCANNED PATHOLOGY REPORT (09/20/2014 5:07 PM EDT) Only the most recent of2 resultswithin the time period is included. 09/20/2014 5:07 PM EDT us Unknown Unknown PATHOLOGY ORDERABLES Final Resul t [...] AM EST 03/08/2014 3:39 PM EST Narrative [facility] - 03/16/2014 8:03 AM EST [employer]-See attached Fax to [phone] us Los Gordon MD HEMATOLOGY ORDERABLES Edited Result - Final [facility] [address] [place] [address] * SCANNED PRE/POST PROCEDURES (02/08/2014 1:26 AM [...] Report Accession Number Collected Date/Time Received Date/Time [id number] 02/04/14 08:20 EDT 02/04/14 12:54 EDT Diagnosis 1) Right maxillary ethmoid sinus contents: - Acute and chronic sinusitis. - Negative for malignancy. 2) Left maxillary sinus biopsy: - Acute and chronic sinusitis. - Negative for malignancy. Lisset Saldana (Electronicall y signed by) Verified: 02/07/2014 [facility] Laboratory Clinical Information Chronic maxillary [...] performed and the findings corroborate the diagnosis. [facility] 02/04/2014 8:20 AM EDT us Los Gordon MD PATHOLOGY ORDERABLES Final R esult [facility] [address] [place] [address] * FUNGUS CULTURE-OTHER (02/04/2014 8:00 AM EDT) Final No growth of fungus at 4 weeks [facility] Specimen from nose (specimen) NASAL STRUCTURE / Unknown 02/04/2014 8:00 AM EDT 02/04/2014 10:08 AM EDT Comment:LEFT MAX SINUS SWAB Narrative [facility] - 03/04/2014 4:01 PM EST Aerobic, anaerobic, fungus culture from left maxillary sinus Los Gordon MD MICROBIOLOGY - GENERAL ORDER MK Final Result Performing Organization Address City/[facility]/ZIP Co de Phone Number [facility] [address] [place] [address] * WOUND CULTURE (02/04/2014 8:00 AM EDT) GS No slide sent/smear made after culture inoculated Rare WBC's Rare RBC's Rare Gram positive cocci [facility] Final Moderate growth of Staphylococcus aureus Sparse growth of Coagulase negative staphylococci No further workup Moderate growth of beta hemolytic Streptococci suspect Streptococcus anginosus group No further workup [facility] Organism Staphylococcus aureus [facility] Specimen from nose (specimen) NASAL STRUCTURE / Unknown 02/04/2014 8:00 AM EDT 02/04/2014 10:08 AM EDT Comment:LEFT MAX SINUS SWAB Narrative [facility] - 02/07/2014 9:08 AM EDT [...] MICROBIOLOGY - GENERAL ORDER MK Final Result [facility] [address] [place] [address] * ANAEROBIC CULTURE (02/04/2014 8:00 AM EDT) Final No anaerobic growth at 5 days [facility] Specimen from nose (specimen) NASAL STRUCTURE / Unknown 02/04/2014 8:00 AM EDT 02/04/2014 10:08 AM EDT Comment:LEFT MAX SINUS SWAB Narrative [facility] - 02/10/2014 5:01 PM EDT Aerobic, anaerobic, fungus culture from left maxillary sinus Los Gordon MD MICROBIOLOGY - GENERAL ORDER MK Final Result Performing Organization Address [facility] Co de Phone Number [facility] [address] [place] [address] * HEPATIC FUNCTION PANEL (01/24/2014 11:31 AM EDT) Only the most recent of2 resultswithin the time period is included. Total Protein 6.8 6.4 - 8.3 gm/dL [facility] Albumin 4.2 3.5 - 5.2 gm/dL [facility] Bili Direct <0.2 0.0 - 0.3 mg/dL [facility] Bili Total 0.1 0.1 - 1.4 mg/dL [facility] AST 40 <=40 IU/L [facility] ALT 38 <=41 IU/L [facility] Alk Phos 106 40 - 129 IU/L [facility] Blood specimen (specimen) UPPER LIMB STRUCTURE / Unknown 01/24/2014 11:31 AM EDT 01/24/2014 2:38 PM EDT us Koffi Jay MD CHEMISTRY ORDERABLES Edited R esult - Final Performing Organization Address City/[facility] Co de Phone Number [facility] [address] [place] [address] * XR WRIST LEFT PA LATERAL AND [...] 10:12 AM EDT) Total PSA 0.66 ng/mL [facility] Comment: 2008 [facility] Best Practice Statement Guidelines-Age Adjusted Reference Intervals: Age Range Whites Americans Americans 40-49 years 0-2.5 ng/mL 0-2.0 ng/mL 0-2.0 ng/mL 50-59 years 0-3.5 ng/mL 0-4.0 ng/mL 0-3.0 ng/mL 60-69 years 0-4.5 ng/mL 0-4.5 ng/mL 0-4.0 ng/mL 70-79 years 0-6.5 ng/mL 0-5.5 ng/mL 0-5.0 ng/mL [facility] uses the [employer] Total PSA assay, which is approved as [...] Mcintyre MD CHEMISTRY ORDERABLES F inal Result [facility] [address] [place] [address] * MRI BRAIN W WO CONTRAST (07/23/2013 [...] be called to his cell phone at [phone]. This call was not made by radiology. Richards Procedure Note Sotero Richards MD - 11/09/2012 [...] results be called to his cell phone [phone]. This call was not made by radiology. Richards Germán Bradley MD [facility] [...] evaluate orTMJ disc problems. Germán Bradley MD [facility] DIAGNO[facility]IC IMAGING ORDERA BLES Final Result * HEMOGLOBIN A1C (12/19/2010 11:00 AM EDT) Hgb A1c 5.3 <=7.0 % [facility] Comment: Initial Diagnostic Criteria < 5.7 % Normal 5.7 - 6.4 % At risk for diabetes mellitus >= 6.5 % Consistent with diabetes mellitus Diabetes monitoring Target Value (ADA recommended): < 7 % Blood specimen (specimen) UPPER LIMB STRUCTURE / Unknown 12/19/2010 11:00 AM EDT 12/19/2010 4:04 PM EDT us Germán Bradley MD CHEMISTRY ORDERABLES Final Re sult [facility] [address] [place] [address] * XR ANKLE RIGHT AP LATERAL AND [...] IMPRESSION: Oblique mildly displaced distal fibula fracture. us Ty Griffiths DO IMG DIAGNOSTIC IMAGING ORDERA BLES Final Result * HELICOBACTER PYLORI ANTIBODY IGG (11/07/2009 4:13 PM EDT) H pylori IgG 0.44 Index Value [facility] Comment: I.V. = Index Value I.V. < 0.90 No detectable IgG antibodies to H. Pylori I.V. 0.90 - 1.09 Equivocal for IgG antibodies to H. Pylori. Re-testing a new specimen is recommended. I.V. >= 1.10 H. Pylori IgG antibody detected. Blood specimen (specimen) 11/07/2009 4:13 PM EDT 11/07/2009 8:55 PM EDT Germán Bradley MD IMMUNOLOGY ORDERABLES Final R esult Performing Organization Address City/State/[facility] Co de Phone Number [facility] [address] [place] [address] * SCANNED EKG (11/06/2009 12:00 AM EDT) Anatomical Region Laterality Modality Other Narrative 11/06/2009 9:16 AM EDT Ordered by an unspecified provider. Transcriptions Unknown, Unknown - 11/06/2009 5:12 AM EDT Unknown Unknown IMG ECG ORDERABLES Final Result * TROPONIN-I (11/05/2009 12:01 AM EDT) Troponin-I 0.01 ng/mL [facility] Comment: Note: New reference ranges [...] Griffiths DO CHEMISTRY ORDERABLES Final Re sult [facility] [address] [place] [address] * XR CHEST PORTABLE GC (11/04/2009 11:28 [...] normal limits. IMPRESSION- Normal portable chest . Surface Supervisor- ALBERT CRAIG MD Reading Physician- ALBERT CRAIG [...] normal limits. IMPRESSION- Normal portable chest . Surface Supervisor- ALBERT CRAIG MD Reading Physician- ALBERT CRAIG MD Released Date Time- 11/04/09 2352 Ty Griffiths DO IMG [facility] RAD HISTORICAL F inal Result * (ABNORMAL) PHENOBARBITAL LEVEL (11/04/2009 11:27 PM EDT) Phenobarbital Lvl <3.0(L) 15.0 - 40.0 mcg/mL [facility] Blood specimen (specimen) 11/04/2009 11:27 PM EDT 11/05/2009 6:47 PM EDT Ty Griffiths DO CHEMISTRY ORDERABLES Final Re sult [facility] [address] [place] [address] * EK EKG REG GC (11/04/2009 11:02 PM EDT) Only the most recent of3 resultswithin the time period is included. Anatomical Region Laterality Modality Other 11/04/2009 11:0 2 PM EDT Narrative 11/06/2009 2:48 PM EDT Sinus bradycardia Normal ECG except for rate Uli FOY Released Date Time- 11/06/09 1448 Procedure Note Ty Foy - 11/06/2009 Sinus bradycardia Normal ECG except for rate Surface Supervisordamaso Healy Physician- TY FOY Released Date Time- 11/06/09 1448 Ty Griffiths DO [facility] ST[facility] CARD HISTORICAL Final Result * [...] 3. Degenerative changes of the AC joint. Laura- LISSETTE Gandara- MEMO TONG M.D. Released Date Time- 09/01/09 [...] 3. Degenerative changes of the AC joint. Surface Supervisor- LISSETTE Healy Physician- MEMO TONG M.D. Released Date Time- 09/01/09 1124 Marcela Ding MD [facility] GARRICK Thomas Final Result * XR [...] radiographically on the right than the left. Surface Supervisor- KELSEY Healy Physician- MEMO TONG M.D. Released Date [...] radiographically on the right than the left. Surface Supervisordamaso Healy Physician- MEMO TONG M.D. Released Date Time- 08/24/091914 us Marcela Ding MD IMG [facility] ST[facility] RAD CHARANICA L Final Result * SCANNED ECG (08/03/2009 12:00 AM EDT) Only the most recent of2 resultswithin the time period is included. Anatomical Region Laterality Modality Other Narrative 08/03/2009 6:51 PM EDT Ordered by an unspecified provider. Transcriptions Unknown, Unknown - 08/03/2009 2:51 PM EDT us Unknown Unknown IMG ECG ORDERABLES Final Result * MR ORBIT,FACE [...] Diffuse cerebellar hemisphere atrophy of uncertain etiology. Surface Supervisor- RADHA Healy Physician- CEASAR MARROQUIN MD Released [...] Diffuse cerebellar hemisphere atrophy of uncertain etiology. Surface Supervisor- RADHA CEE Reading Physician- CEASAR MARROQUIN MD Released Date Time- 06/26/09 1604 Wang Ospina [facility] HISTORICAL Fin al Result * MR [...] medial meniscus, also apparent on plain films. Surface Supervisor- PETTY LEVIN Reading Physician- LEONARDO PUCKETT MD [...] medial meniscus, also apparent on plain films. Surface Supervisor- PETTY LEVIN Reading Physician- LEONARDO PUCKETT MD Released Date Time- 09/19/082050 Germán Bradley MD [facility] HISTORICAL F inal Result * XR LOWER LEG TIBIA/FIBULA GC (09/09/2008 1:55 PM EDT) Anatomical Region Laterality Modality Other 09/09/2008 1:55 PM EDT Narrative 09/09/2008 6:39 PM EDT Examinations of the left tibia and fibula Indications- Pain. History- Pain. Two views of the left tibia and fibula demonstrate no fractures. There are no malalignments. The cortical margins are intact. Impression- No fractures. Surface Supervisor- PETTY LIVINGSTON Reading Physician- MEMO TONG M.D. Released Date Time- 09/09/081949 Procedure Note Memo Tong - 06/22/2009 Examinations of the left tibia and fibula Indications- Pain. History- Pain. Two views of the left tibia and fibula demonstrate no fractures. There are no malalignments. The cortical margins are intact. Impression- No fractures. Surface Supervisor- PETTY Healy Physician- MEMO TONG M.D. Released Date Time- 09/09/081949 us Germán Bradley MD [facility] HISTORICAL F inal Result * XR KNEE [...] If so, MRI evaluation may be warranted. Surface Supervisordamaso Gandara- MEMO TONG M.D. Released Date Time- 09/09/081949 Procedure Note Alycia Memo Mehreen - 06/22/2009 Examinations of the left knee Indications- Left knee pain. History- Left knee pain. Four views of the left knee demonstrate no fractures. There are no malalignments. The joint spaces are grossly intact. Impression- No fractures visualized. Note is made of an effusion. Is there concern for internal derangement? If so, MRI evaluation may be warranted. Surface Supervisor- PETTY Healy Physician- MEMO TONG M.D. Released Date Time- 09/09/08 1950 Germán Bradley MD [facility] ST[facility] RAD HISTORICAL F inal Result * HOLTER MONITOR [...] 3 isolated PVC's. The diary was blank. Craolina Campbell 12-04-07 Surface Supervisor- RICK Healy Physician- ISAC BALLARD MD Released [...] PVC's. The diary was blank. Carolina Campbell 12-04-07 Surface Supervisor- RICK Healy Physician- ISAC BALLARD MD Released Date Time- 12/04/07 1013 Finesse Moore MD [facility] CARD HISTORIC AL Final Result * XR KNEE (04/02/2007 4:00 PM EST) Anatomical Region Laterality Modality Other 04/02/2007 4:00 PM EST Narrative 04/02/2007 4:26 PM EST PER /JESÚS RM7 Left knee 4 views, 04/02/2007 History- Pain following a twisting injury. Findings- There is no acute fracture or subluxation. Joint spaces and articular margins are intact. No definite joint effusion. Impression- Normal. Surface Supervisor- JANA SARKAR Reading Radiologist- PINO ALBARADO Released Date Time- 04/02/07 0983 Procedure Note Pino Albarado - 06/21/2009 PER /JESÚS RM7 Left knee 4 views, 04/02/2007 History- Pain following a twisting injury. Findings- There is no acute fracture or subluxation. Joint spaces and articular margins are intact. No definite joint effusion. Impression- Normal. Surface Supervisor- JANA SARKAR Reading Radiologist- PINO ALBARADO Released Date Time- 04/02/07 163 us David Palma MD [facility] HISTORICAL F inal Result * XR ANKLE [...] Impression- No fracture or dislocation, ankle joint. Surface Supervisor- DALE VELÁSQUEZ Reading Radiologist- RADHA PORTER MD. Released Date Time- 01/01/06 0914 Procedure Note Radha Porter - 06/21/2009 Three-view right ankle- 12/31/2005 Indication- 35-year-old male with unspecified right ankle injury and pain. Findings- There is mild soft tissue thickness over both medial and lateral malleoli. No cortical disruptions or fracture planes seen. Mortise joint is intact. Impression- No fracture or dislocation, ankle joint. Surface Supervisor- DALE VELÁSQUEZ Reading Radiologist- RADHA PORTER MD. Released Date Time- 01/01/06913 Robbie Eldridge MD [facility] HISTORICAL Fi nal Result * XR [...] soft tissue swelling. Impression- 1. Negative exam. Surface Supervisor- ANGELA SMITH Reading Radiologist- RADHA PORTER MD. [...] soft tissue swelling. Impression- 1. Negative exam. Surface Supervisor- ANGELA SMITH Reading Radiologist- RADHA PORTER MD. Released Date Time- 01/01/06913 Robbie Eldridge MD [facility] HISTORICAL Fi nal Result * XR SCAPULA [...] Mcintyre MD [facility] HISTO RICAL Final Result * XR NOSE [...] The septum is midline. Dustin Mcintyre MD [facility] STAR RAD HISTO RICAL Final Result [...] facility 2014 COPD (chronic obstructive pulmonary disease) (HCC) Chronic airway obstruction, not elsewhere classified 2014 Acute bronchitis 05/18/2014 Acute sinusitis Acute sinusitis, unspecified 05/18/2014 COPD (chronic obstructive pulmonary disease) (HCC) Chronic airway obstruction, not elsewhere classified 05/18/2014 Hypernatremia Hyperosmolality and/or hypernatremia 05/20/2014 Pre-op testing Preoperative examination, unspecified 05/20/2014 Hypernatremia Hyperosmolality and/or hypernatremia 05/20/2014 Pre-op testing Preoperative examination, unspecified 05/20/2014 Bronchitis Bronchitis, not specified as acute or chronic 05/20/2014 COPD exacerbation (HCC) Obstructive chronic bronchitis with exacerbation 05/20/2014 Asthma exacerbation, moderate persistent 05/20/2014 Chest wall pain Painful respiration 05/20/2014 Vomiting Vomiting alone 05/20/2014 Hypernatremia Hyperosmolality and/or hypernatremia 05/20/2014 Asthma, unspecified asthma severity, uncomplicated 05/21/2014 COPD (chronic obstructive pulmonary disease) (HCC) Chronic airway obstruction, not elsewhere classified 05/21/2014 Pre-op exam Preoperative examination, unspecified 06/08/2014 Arthritis of knee Unspecified arthropathy, lower leg 06/08/2014 Folliculitis Other specified disease of hair and hair follicles 06/08/2014 Epilepsy (HCC) Unspecified epilepsy without mention of [...] uncomplicated 11/04/2014 COPD (chronic obstructive pulmonary disease) (HCC) Chronic airway obstruction, not elsewhere classified 11/04/2014 [...] Lifestyle No Radha Urbina CCMA Care Teams Sales Attendant Relationship Specialty Start Date End Date Robbie Putnam MD [address] [facility] [address] [place] [id number] PCP - General Family Medicine 02/07/20
== END 2025-01-21 23:59 ==
LOC: LAB.DROPOF 01-24 09:51
PROVIDERS: PCP Family Medicine; Visit Provider Family Medicine
DX: R20.0 Anesthesia of skin (principal); R20.2 Paresthesia of skin
CPT/HCPCS: 80185

== ENCOUNTER 2025-01-24 11:55 | Emergency (ER) | payer MEDICARE, MEDICAID, SELFPAY ==
[2025-01-24 12:04] VITALS: BP 139/83; PULSE 79; RESP 18; TEMP 36.6; O2SAT 97; BMI 27.3
--- NOTE | 2025-01-24 12:12 | HMH.EDGENADL ---
Discharge Plan Disposition Patient Disposition: Home, Self-Care Condition: Good Prescriptions Prescriptions: New acetaminophen 500 mg capsule 500 mg PO Q6H PRN (Reason: pain) Qty: 30 0RF ibuprofen 800 mg tablet 800 mg PO Q8H Qty: 30 0RF methocarbamol 750 mg tablet 750 mg PO Q8H Qty: 30 0RF No Action polyethylene glycol 3350 [Miralax] 17 gram powder in packet 17 g PO DAILY Qty: 30 0RF pregabalin [Lyrica] 50 mg capsule 50 mg PO DAILY Qty: 30 0RF duloxetine 60 mg capsule,delayed release(DR/EC) 60 mg PO DAILY Qty: 90 3RF esomeprazole magnesium 40 mg capsule,delayed release(DR/EC) See Rx Instructions .ROUTE .COMPLEX Qty: 90 2RF Dose Instruction: TAKE ONE CAPSULE BY MOUTH EVERY DAY FOR GERD Rx Instructions: TAKE ONE CAPSULE BY MOUTH EVERY DAY FOR GERD meloxicam 15 mg tablet See Rx Instructions .ROUTE .COMPLEX Qty: 90 2RF Dose Instruction: TAKE ONE TABLET BY MOUTH EVERY DAY --TAKE WITH FOOD-- Rx Instructions: TAKE ONE TABLET BY MOUTH EVERY DAY --TAKE WITH FOOD-- albuterol sulfate 90 mcg/actuation HFA aerosol inhaler See Rx Instructions .ROUTE .COMPLEX Qty: 8.5 6RF Dose Instruction: INHALE 4 puffs BY MOUTH EVERY 4 HOURS FOR 48 hours NEEDED SHORTNESS OF BREATH OR wheezing, THEN USE NEEDED Rx Instructions: INHALE 4 puffs BY MOUTH EVERY 4 HOURS FOR 48 hours NEEDED SHORTNESS OF BREATH OR wheezing, THEN USE NEEDED omega-3 fatty acids 1,000 mg capsule 2,000 mg PO DAILY Qty: 60 6RF cetirizine 10 mg tablet See Rx Instructions .ROUTE .COMPLEX Qty: 90 2RF Dose Instruction: TAKE ONE TABLET BY MOUTH EVERY DAY Rx Instructions: TAKE ONE TABLET BY MOUTH EVERY DAY azelastine 137 mcg (0.1 %) spray,non-aerosol See Rx Instructions .ROUTE .COMPLEX Qty: 30 5RF Dose Instruction: USE 1 SPRAY in each nostril twice daily as directed Rx Instructions: USE 1 SPRAY in each nostril twice daily as directed Trelegy Ellipta 100-62.5-25 mcg blister with device See Rx Instructions .ROUTE .COMPLEX Qty: 60 2RF Dose Instruction: INHALE 1 PUFF BY MOUTH EVERY DAY FOR copd Rx Instructions: INHALE 1 PUFF BY MOUTH EVERY DAY FOR copd buspirone 10 mg tablet See Rx Instructions .ROUTE .COMPLEX Qty: 90 2RF Dose Instruction: TAKE ONE TABLET BY MOUTH THREE TIMES DAILY FOR ANXIETY Rx Instructions: TAKE ONE TABLET BY MOUTH THREE TIMES DAILY FOR ANXIETY fluticasone propionate 50 mcg/actuation spray,suspension See Rx Instructions .ROUTE .COMPLEX Qty: 48 3RF Dose Instruction: INSTILL ONE SPRAY IN EACH NOSTRIL EVERY DAY Rx Instructions: INSTILL ONE SPRAY IN EACH NOSTRIL EVERY DAY atorvastatin 40 mg tablet 40 mg PO HS Qty: 90 3RF phenytoin sodium extended 100 mg capsule See Rx Instructions .ROUTE .COMPLEX Qty: 150 0RF Dose Instruction: TAKE TWO CAPSULES BY MOUTH TWICE DAILY AND TAKE ONE CAPSULE BY MOUTH AT LUNCHTIME Rx Instructions: TAKE TWO CAPSULES BY MOUTH TWICE DAILY AND TAKE ONE CAPSULE BY MOUTH AT LUNCHTIME olanzapine 5 mg tablet 5 mg PO BID Patient Comments: TAKE ONE TABLET BY MOUTH TWICE DAILY Referrals Follow up/Referrals: Christine Gonzalez APRN [Primary Care Provider, Family Practice] - See instructions Activity Restrictions/Add. Instructions Additional Instructions/Restrictions: Do not take both ibuprofen and meloxicam. Only take 1 or the other. Return to the emergency department if you develop fevers, numbness, weakness, tingling, or worsening pain despite medication and medications at home. Clinical Impressions Clinical Impression: Acute exacerbation of chronic low back pain Instructions Patient Instructions: DI for Low Back Pain Print Language Print Language: Setswana Discharge ED Provider: Dustin Grant Adult HPI General Chief complaint: Back Pain/Injury Stated complaint: lower back pain Time Seen by Provider: 01/24/25 12:12 Mode of Arrival: Ambulatory Source of Information: Patient Description of Symptoms (Recalled from ER Triage Doc. by RN): Pt states he has had on and off back pain for a while . Pt does not remember any trauma or falls to cause the pain. History of Present Illness HPI narrative: Patient is a 54-year-old male with history of anxiety, bipolar, depression, seizure disorder. Patient presents today for back pain. He reports he has had back pain for several months, but it has been getting worse steadily. It is lower in nature and radiating down to his tailbone. He also reports some numbness in his bilateral feet. He denies any urinary incontinence or saddle anesthesia. Denies any trauma to the area. Denies any history of spinal manipulation, IV drug use, back surgeries, or otherwise. He denies any fevers. He reports he is walking around fine. He has not tried any medicines at home for the pain. Denies any urinary changes. His primary doctor has scheduled him for an MRI next month. Related Data Home Medications ?Medication ?Instructions ?Recorded ?Confirmed olanzapine 5 mg tablet 5 mg PO BID 03/25/24 01/21/25 Previous Rx's ?Medication ?Instructions ?Recorded duloxetine 60 mg capsule,delayed 60 mg PO DAILY #90 caps 04/20/24 release esomeprazole magnesium 40 mg See Rx Instructions .Route 05/20/24 capsule,delayed release .COMPLEX #90 caps albuterol sulfate 90 mcg/actuation See Rx Instructions .Route 07/14/24 aerosol inhaler .COMPLEX #8.5 grams meloxicam 15 mg tablet See Rx Instructions .Route 07/14/24 .COMPLEX #90 tabs omega-3 fatty acids 1,000 mg 2,000 mg (2 x 1,000 mg) PO DAILY 07/21/24 capsule #60 caps azelastine 137 mcg (0.1 %) nasal See Rx Instructions .Route 08/16/24 spray .COMPLEX #30 mL cetirizine 10 mg tablet See Rx Instructions .Route 08/16/24 .COMPLEX #90 tabs fluticasone fur. 100 mcg-umeclid See Rx Instructions .Route 09/20/24 62.5 mcg-vilant 25 mcg .COMPLEX #60 blisters inhalat.powder (Trelegy Ellipta) atorvastatin 40 mg tablet 40 mg PO HS #90 tabs 12/16/24 buspirone 10 mg tablet See Rx Instructions .Route 12/16/24 .COMPLEX #90 tabs fluticasone propionate 50 See Rx Instructions .Route 12/16/24 mcg/actuation nasal .COMPLEX #48 mL spray,suspension polyethylene glycol 3350 17 gram 17 g PO DAILY #30 ea 01/04/25 oral powder packet (Miralax) phenytoin sodium extended 100 mg See Rx Instructions .Route 01/17/25 capsule .COMPLEX #150 caps pregabalin 50 mg capsule (Lyrica) 50 mg PO DAILY #30 caps 01/21/25 acetaminophen 500 mg capsule 500 mg PO Q6H PRN pain #30 caps 01/24/25 ibuprofen 800 mg tablet 800 mg PO Q8H #30 tabs 01/24/25 methocarbamol 750 mg tablet 750 mg PO Q8H #30 tabs 01/24/25 Allergies Allergy/AdvReac Type Severity Reaction Status Date / Time nickel Allergy Mild Rash Verified 01/21/25 09:51 alprazolam (From Xanax) Allergy Agitated Verified 01/21/25 09:51 diazepam (From Valium) Allergy Agitated Verified 01/21/25 09:51 fluoxetine (From Prozac) Allergy Unknown Verified 01/21/25 09:51 allergy reaction PFSH [facility] Disclaimer: The information contained in this section may have been updated after the patient was seen, as this information can be updated by other users. 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 (Updated 01/24/25 @ 12:34 by Dustin Grant MD) Injury of right ring finger Trigger point Suicidal ideation Preoperative evaluation to rule out surgical contraindication Pain, wrist Acute exacerbation of chronic obstructive pulmonary disease Pulmonary emphysema Tobacco abuse counseling Tobacco abuse Smoking greater than 30 pack years COPD mixed type Tear of lateral meniscus of left knee Pes anserinus bursitis of left knee Chest pain Pain in wrist Epididymitis Acute exacerbation of chronic obstructive pulmonary disease Acute exacerbation of chronic obstructive pulmonary disease General weakness Abnormal x-ray of knee Left knee pain COPD exacerbation Encounter for medical assessment Trigger finger of right hand Popping of right knee joint Family history of cancer Encounter for screening colonoscopy Lesion of penis Right hand pain Orchalgia Laceration of ear lobe Elevated liver function tests Medial epicondylitis of left elbow Finger fracture, right UTI (urinary tract infection) Nausea & vomiting Throat pain in adult Trichomonas contact Abdominal pain Nausea Contusion of right elbow Nasal bone fracture Sinusitis Jaundice Bilateral shoulder pain Shoulder pain, left Hand fracture, right Hand pain, right Contusion Elbow contusion Sting, insect Chronic chest pain Superficial skin lesion Hemorrhoids Left wrist sprain Acute flank pain URI (upper respiratory infection) Left elbow pain Ankle pain Atypical chest pain Bursitis of left elbow Vomiting Rib pain on right side Seizure-like activity Acute exacerbation of chronic obstructive airways disease Acute and chronic respiratory failure with hypoxia Scalp abrasion Subtherapeutic serum dilantin level Pharyngitis Testicular pain, right Mid back pain Chest pain Chronic groin pain Otitis media Shortness of breath Encounter for medical assessment Acute bacterial sinusitis Pharyngitis Nasal polyp Influenza A Migraine HTN (hypertension), benign HLD (hyperlipidemia) Depression Asthma Anxiety Upper respiratory infection Pneumonia Schizophrenia Hepatitis B Seizure disorder Chronic obstructive pulmonary disease GERD (gastroesophageal reflux disease) 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 History of laparoscopic cholecystectomy History of nasal surgery H/O vasectomy History of arthroscopy of right shoulder History of arthroscopy of left shoulder H/O arthroscopy of right knee Family History Other Cancer Family history of seizures 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 Smoking Status: Current every day smoker tobacco type: cigarettes packs per day: 1 second hand exposure: No alcohol intake: never substance use type: former substance user, marijuana and methamphetamine current occupational status: disabled Travel in the last 8 weeks?: None household members: other housing: house number of children: 2 current occupational exposures/hazards: No caffeine: Yes Other 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 Have you received the Flu Vaccine for this season: No Have you received the Pneumonia Vaccine: No ROS Obtained: Yes All systems reviewed & no additional complaints except as documented Physical Exam General General appearance: alert and in no apparent distress Head Head exam: atraumatic and normocephalic Eye Eye exam: Present PERRL and EOMI ENT ENT exam: Present normal oropharynx Neck Neck exam: Present full ROM and trachea midline Chest Chest inspection: Present symmetric chest wall rise Respiratory Respiratory exam: Present normal lung sounds bilaterally; Absent stridor Cardiovascular Cardiovascular exam: Present regular rate and normal rhythm Abdominal Exam Abdominal exam: Present soft; Absent distention or tenderness Extremities Exam Extremities exam: Present full ROM Back Exam Back exam: Present tenderness (Midline and paraspinal lumbar) Neurological Exam Neurological exam: Present alert, oriented X3, CN II-XII intact, normal gait and reflexes normal; Absent motor sensory deficit Psychiatric Psychiatric exam: Present normal mood Skin Skin exam: Present warm and dry Medical Decision Making Medical Records Screening: Per USPSTF and CDC recommendations, given the prevalence of disease in our region, it is our hospital?s policy to screen for HIV and viral Hepatitis for all patients aged 18 and over and those with ongoing risk factors. Krishna Inquiry Pt receiving controlled substance: No Vital Signs: 01/24/25 12:04 Temperature 97.8 F Temperature Source Oral Pulse Rate [Right] 79 Respiratory Rate 18 Blood Pressure [Right Arm] 139/83 Blood Pressure Mean [Right Arm] 101 Blood Pressure Source [Right Arm] Automatic Cuff Blood Pressure Position [Right Arm] Sitting 02 Sat by Pulse Oximetry 97 Oxygen Delivery Method Room Air Medical Decision Narrative: Patient is a 54-year-old male with back pain. Reports has been going on for months. He does work bending and lifting frequently. He denies any trauma to the area. On arrival, patient is afebrile hemodynamically stable no acute distress but on exam is warm well-perfused full pulses and brisk Apley refill. Full pulses and the DP and PT in the bilateral lower extremities. Normal reflexes, no sensation changes on my objective physical exam and good motor. Steady gait. No red flag symptoms for cauda equina or spinal epidural abscess given absence of risk factors. Suspect an acute exacerbation of chronic back pain. No recent trauma, so deferred CT, but was considered. No concern for aortic dissection given no hypertension and equal pulse exam and reproducible spinal tenderness. Will treat patient with Toradol and Tylenol. Will send with multimodal pain control outpatient. He already has an outpatient MRI scheduled which is reassuring. We discussed red flag symptoms and strict return precautions. All questions answered, amenable to plan and discharge. Critical Care Critical Care Time Critical Care Time: No
--- OUTSIDE RECORDS SUMMARY | 2025-01-24 12:31 | XMS_ITS ---
Laboratory report Created on: January 11, 2025 KRISSY DAO : 1970 Sex: Male Author Organization Unknown PROBLEMS Problems List Code Description RESULTS Laboratory Orders Date Order Code Test 2025-01-04 356359 HCV RT-PCR, PILY T (NON-GRAPH) 2025-01-04 [id number] HAV, HBV IMMUNIT Y 2025-01-04 [id number] HBSAG SCREEN Laboratory Results Date LOINC Test Value Unit Reference Range Interpre tation 2025-01-04 87184-8 HEPATITIS C QUANTITATION HCVTND IU/ML 2025-01-04 [id number] HEP A AB, TOTAL P NEGATIVE A 2025-01-04 [id number] HEP A AB, IGM N NEGATIVE 2025-01-04 52541-2 HEP B CORE AB, TOT P NEGATIVE A 2025-01-04 70725-3 HEP B SURFACE AB, QUAL REACT 2025-01-04 [id number] HBSAG SCREEN N NEGATIVE
[2025-01-24] MEDS: ACETAMINOPHEN 500MG TAB 1000 MG PO (12:32)
--- OUTSIDE RECORDS SUMMARY | 2025-01-24 12:32 | XMS_ITS | Continuity of Care Document ---
Author Organization [facility] Address [address] [place] [address] Phone Care Team Providers Care Machine Puller Over Name Role Phone Robbie Putnam MD Primary Care Provider [phone] Encounters Date Type Department Care Team Description 07/21/2018 Refill [facility] [address] [place] [address] Germán Bradley MD Medication Refill 06/30/2018 Telephone [facility] [address] [place] [address] Dustin Mcintyre MD Other 06/02/2018 Orders Only [facility] [address] [place] [address] Radha Urbina CCMA Hepatitis A antibody positive (Primary Dx) 06/02/2018 Orders Only [facility] [address] [place] [address] Oralia Cruz RMA Elevated liver function tests (Primary Dx) 06/01/2018 9:30 AM EST Office Visit [facility] [address] [place] [address] Dustin Mcintyre MD Left inguinal [...] Elevated liver function tests 04/13/2018 Refill [facility] [address] [place] [address] Germán Bradley MD Medication Refill 12/22/2017 Telephone [facility] [address] [place] [address] Dustin Mcintyre MD Other 12/05/2017 8:00 AM EDT Office Visit [facility] [address] [place] [address] Germán Bradley MD Other epilepsy [...] 100 07/22/2017 1:00 PM EDT Office Visit [facility] [address] [place] [address] Germán Bradley MD Other epilepsy without status epilepticus, not intractable (HCC) (Primary Dx); Impulse control disorder; COPD, mild (HCC); Recurrent major depressive disorder, in full remission; Chest wall pain; Rotator cuff syndrome of left shoulder; JB (generalized anxiety disorder); Closed nondisplaced fracture of distal phalanx of finger, unspecified finger, initial encounter 07/08/2017 Patient Outreach [facility] [address] [place] [address] Jennifer Mccain LPN Care Transition; Care Management - Chart Review; ED Follow-Up Call 07/07/2017 9:44 PM EDT - 07/07/2017 10:25 PM EDT [facility] [address] [place] [address] Robbie Queen MD Rotator cuff strain, left, initial encounter (Primary Dx) Discharge Disposition: Home or Self Care 05/26/2017 9:28 PM EST - 05/26/2017 10:28 PM EST [facility] [address] [place] [address] Radha Lopez MD Closed nondisplaced fracture of distal phalanx of right ring finger, initial encounter (Primary Dx); Multiple abrasions Discharge Disposition: Fpc 05/06/2017 2:00 PM EST Office Visit [facility] [address] [place] [address] Dustin Mcintyre MD Well adult exam (Primary Dx); Other epilepsy without status epilepticus, not intractable (HCC); COPD, mild (HCC); Gastroesophageal reflux disease without esophagitis; Restless leg syndrome; Hyperlipidemia with target LDL less than 100; Cigarette nicotine dependence without complication; Impulse control disorder; Recurrent major depressive disorder, in full remission; Generalized anxiety disorder 04/08/2017 Refill [facility] [address] [place] [address] Dustin Mcintyre MD Medication Refill 04/08/2017 Refill [facility] [address] [place] [address] Germán Bradley MD Medication Refill 04/08/2017 Telephone [facility] [address] [place] [address] Dustin Mcintyre MD Other 02/27/2017 3:00 PM EST Office Visit [facility] [address] [place] [address] Germán Bradley MD Epidermal inclusion cyst (Primary Dx); Acute bacterial sinusitis; Chronic seasonal allergic rhinitis due to pollen; Lumbar sprain, initial encounter; Generalized osteoarthritis of multiple sites 01/16/2017 Telephone [facility] [address] [place] [address] Norma Greenfield MA Advice Only 01/07/2017 3:21 PM EDT - 01/07/2017 11:59 PM EDT Hospital Encounter [facility] [place] [address] Other epilepsy without status epilepticus, not intractable (HCC); Hyperlipidemia with target LDL less than 100 Discharge Disposition: Home or Self Care 01/07/2017 Telephone [facility] [address] [place] [address] Nelda Torres CMA Orders 01/07/2017 9:00 AM EDT Office Visit [facility] [address] [place] [address] Dustin Mcintyre MD Gastroesophageal reflux disease without esophagitis (Primary Dx); COPD, mild (HCC); Hyperlipidemia with target LDL less than 100; Generalized anxiety disorder; Acute pain of right knee; Right knee injury, initial encounter; Other epilepsy without status epilepticus, not intractable (HCC); Major depressive disorder, recurrent episode, mild; Chronic seasonal allergic rhinitis due to pollen 11/10/2016 Refill [facility] [address] [place] [address] Germán Bradley MD Medication Refill 10/21/2016 Refill [facility] [address] [place] [address] Nelda Torres, MANUFACTURING ASSEMBLER Medication Refill 10/05/2016 Refill [facility] [address] [place] [address] Germán Bradley MD Medication Refill 08/18/2016 Refill [facility] [address] [place] [address] Germán Bradley MD Medication Refill 08/07/2016 1:30 PM EDT - 08/07/2016 11:59 PM EDT Hospital Encounter [facility] [address] [place] [address] Acute pain of right knee; Right knee injury, initial encounter Discharge Disposition: Home or Self Care 08/07/2016 1:15 PM EDT Office Visit [facility] [address] [place] [address] Dustin Mcintyre MD Acute pain of right knee (Primary Dx); Right knee injury, initial encounter 07/24/2016 Telephone [facility] [address] [place] [address] Dustin Mcintyre MD Other 06/21/2016 Telephone [facility] [address] [place] [address] Nelda Torres CMA Prior Authorization (nexium needs a PA) 06/12/2016 Telephone [facility] [address] [place] [address] Dustin Mcintyre MD Other 06/11/2016 7:45 AM EST - 06/11/2016 8:00 AM EST Surgery [facility] [address] [place] [address] Wang Vieira MD CARPAL TUNNEL RELEASE BILATERAL 06/11/2016 6:41 AM EST - 06/11/2016 8:24 AM EST Hospital Encounter [facility] [address] [place] [address] Wang Vieira MD Discharge Disposition: Home or Self Care 05/16/2016 1:15 PM EST Office Visit [facility] [address] [place] [address] Germán Bradley MD COPD, mild (HCC) (Primary Dx); Generalized anxiety disorder; Cigarette nicotine dependence without complication; Bilateral carpal tunnel syndrome 05/09/2016 Patient Outreach [facility] [address] [place] [address] Margie Mo LPN Care Management - Chart Review (Chart Review) 05/08/2016 1:42 PM EST - 05/08/2016 11:59 PM EST Hospital Encounter [facility] [address] [place] [address] Emg, Kiko Edg Bilateral carpal tunnel syndrome (Primary Dx) Discharge Disposition: Home or Self Care 05/06/2016 10:05 AM EST - 05/06/2016 11:59 PM EST Hospital Encounter [facility] [address] [place] [address] COPD, mild (HCC) Discharge Disposition: Home or Self Care 04/29/2016 2:30 PM EST Office [address] [place] [address] Germán Bradley MD Well adult exam (Primary Dx); COPD, mild (HCC); Need for pneumococcal vaccination 04/01/2016 7:27 PM EST - 04/01/2016 11:59 PM EST Hospital Encounter [facility] [place] [address] Memory loss; Hyperlipidemia with target LDL less than 100 Discharge Disposition: Home or Self Care 04/01/2016 Orders Only [facility] [address] [place] [address] Kinjal Bustillo RMA Gastroesophageal reflux disease without esophagitis (Primary Dx) 04/01/2016 2:30 PM EST Office Visit [facility] [address] [place] [address] Germán Bradley MD Need for influenza vaccination (Primary Dx); Generalized anxiety disorder; Hyperlipidemia with target LDL less than 100; Seasonal allergic rhinitis, unspecified allergic rhinitis trigger; Other epilepsy without status epilepticus, not intractable ([facility]); Restless leg syndrome; Major depressive disorder, recurrent episode, mild; Gastroesophageal reflux disease without esophagitis; COPD, mild ([facility]); Memory loss 02/20/2016 Refill [facility] [address] [place] [address] Germán Bradley MD Medication Refill 12/28/2015 Refill [facility] [address] [place] [address] Nelda Torres CMA Medication Refill 11/30/2015 Patient Outreach [facility] [address] [place] [address] Елена Alvares RMA ED Follow-up 11/28/2015 Patient Outreach [address] [place] [address] Margie Mo LPN Care Management - Chart Review (Chart Review-Patient discharged from ED 11/27/2015) 11/27/2015 5:23 PM EDT - 11/27/2015 6:28 PM EDT [facility] [address] [place] [address] Michelle Shirley MD Right-sided low back pain without sciatica (Primary Dx) Discharge Disposition: Home or Self Care 11/21/2015 Patient Outreach [address] [place] [address] Margie Mo LPN Care Management - Chart Review (Chart Review-Patient discharged from ED 11/20/2015) 11/20/2015 Refill [facility] [address] [place] [address] Germán Bradley MD Medication Refill 11/20/2015 3:28 PM EDT - 11/20/2015 4:01 PM EDT [facility] [address] [place] [address] Devora Lindsey MD Fall, initial encounter (Primary Dx); Cervical strain, initial encounter; Abrasions of multiple sites; Right shoulder strain, initial encounter Discharge Disposition: Home or Self Care 11/16/2015 8:07 PM EDT - 11/16/2015 11:59 PM EDT Hospital Encounter [facility] [place] [address] Other epilepsy without status epilepticus, not intractable (HCC); Hyperlipidemia with target LDL less than 100 Discharge Disposition: Home or Self Care 11/16/2015 Telephone [facility] [address] [place] [address] Nelda Torres CMA Prior Authorization (michelle frank a PA) 11/16/2015 3:00 PM EDT Office Visit [address] [place] [address] Germán Bradley MD Chronic obstructive pulmonary disease with acute exacerbation (HCC) (Primary Dx); Hyperlipidemia with target LDL less than 100; Generalized anxiety disorder; Restless leg syndrome; Major depressive disorder, recurrent episode, mild; Other epilepsy without status epilepticus, not intractable (HCC); Gastroesophageal reflux disease without esophagitis; Seasonal allergies; Acute bacterial sinusitis 10/21/2015 Refill [facility] [address] [place] [address] Germán Bradley MD Medication Refill 10/21/2015 Refill [facility] [address] [place] [address] Dustin Mcintyre MD Medication Refill 09/21/2015 Refill [facility] [address] [place] [address] Dustin Mcintyre MD Medication Refill 09/15/2015 Telephone [facility] [address] [place] [address] Germán Bradley MD Other 09/04/2015 Telephone [facility] [address] [place] [address] Nelda Torres CMA Referral 08/23/2015 Refill [facility] [address] [place] [address] Germán Bradley MD Medication Refill 08/22/2015 Telephone [facility] [address] [place] [address] Germán Bradley MD Other 08/17/2015 Telephone [facility] [address] [place] [address] Germán Bradley MD Letter for School/Work 08/08/2015 Telephone [facility] [address] [place] [address] Nelda Torres [facility] Prior Authorization (atarax needs a PA) 08/07/2015 Refill [facility] [address] [place] [address] Germán Bradley MD Medication Refill 07/20/2015 Refill [facility] [address] [place] [address] Germán Bradley MD Medication Refill 07/05/2015 Refill [facility] [address] [place] [address] Dustin Mcintyre MD Medication Refill 06/26/2015 Refill [facility] [address] [place] [address] Germán Bradley MD Medication Refill 06/26/2015 Patient Outreach [facility] [address] [place] [address] Елена Alvares RMA ED Follow-up 06/26/2015 Patient Outreach [facility] [address] [place] [address] Margie Mo LPN Care Management - Chart Review (Discharged from ED 06/23/2015 Chart Reviewed) 06/23/2015 4:34 PM EST - 06/23/2015 6:22 PM EST [facility] [address] [place] [address] Elina Hall MD Pain of left lower extremity (Primary Dx) Discharge Disposition: Home or Self Care 06/20/2015 8:30 AM EST - 06/20/2015 9:30 AM EST Surgery [facility] [place] [address] Crow Love MD SHOULDER ARTHROSCOPY SUBACROMIAL DECOMPRESSION /FULL MILLY 06/20/2015 7:52 AM EST Anesthesia Event [facility] [place] [address] Jerson Can DO Mucenski, Cathleen M, MD 06/20/2015 6:32 AM EST - 06/20/2015 10:47 AM EST Hospital Encounter [facility] [place] [address] Crow Love MD Discharge Disposition: Home or Self Care 05/10/2015 Refill [facility] [address] [place] [address] Dustin Mcintyre MD Medication Refill 2015 10:00 AM EST Office Visit [facility] [address] [place] [address] Germán Bradley MD Well adult (Primary Dx); Cigarette nicotine dependence without complication 04/20/2015 3:26 PM EST - 04/20/2015 11:59 PM EST Hospital Encounter [facility] [place] [address] Other epilepsy without status epilepticus, not intractable (HCC); Hyperlipidemia with target LDL less than 100 Discharge Disposition: Home or Self Care 04/20/2015 Telephone [facility] [address] [place] [address] MaynorarturoЕлена, RMA Anxiety 04/20/2015 9:30 AM EST Office Visit [facility] [address] [place] [address] Germán Bradley MD Chronic obstructive pulmonary disease with acute exacerbation (HCC) (Primary Dx); Generalized anxiety disorder; Gastroesophageal reflux disease without esophagitis; Restless leg syndrome; Hyperlipidemia with target LDL less than 100; Major depressive disorder, recurrent episode, mild; Other epilepsy without status epilepticus, not intractable (HCC); Impingement syndrome, shoulder, right 04/12/2015 Refill [facility] [address] [place] [address] Dustin Mcintyre MD Medication Refill 04/11/2015 Refill [facility] [address] [place] [address] Dustin Mcintyre MD Medication Refill 04/11/2015 Refill [facility] [address] [place] [address] Dustin Mcintyre MD Medication Refill 03/30/2015 11:00 AM EST Office Visit [facility] [address] [place] [address] Germán Bradley MD Shoulder tendonitis, right (Primary Dx); Primary osteoarthritis of right shoulder 03/23/2015 Orders Only [facility] [address] [place] [address] Tu Rivera MD Seizure disorder (HCC) (Primary Dx) 03/22/2015 11:10 AM EST - 03/22/2015 11:59 PM [facility] Hospital Encounter [facility] [address] [place] [address] [phone] Dustin Mcintyre MD Right shoulder pain Discharge Disposition: Home or Self Care 03/21/2015 Orders Only [facility] [address] [place] [address] Елена Alvares, RMSabine Chronic obstructive pulmonary disease with acute exacerbation (HCC) (Primary Dx); Generalized anxiety disorder 03/20/2015 Refill [facility] [address] [place] [address] Dustin Mcintyre MD Medication Refill 03/17/2015 10:15 AM EST Office Visit [facility] [address] [place] [address] Dustin Mcintyre MD Right shoulder pain (Primary Dx) 02/24/2015 11:00 AM EST Office Visit [facility] [address] [place] [address] Dustin Mcintyre MD Generalized anxiety disorder (Primary Dx); Trapezius strain, unspecified laterality, initial encounter; Medial epicondylitis of elbow, right 01/24/2015 Refill [facility] [address] [place] [address] Dustin Mcintyre MD Medication Refill 01/24/2015 Refill [facility] [address] [place] [address] Nelda Torres, MANUFACTURING ASSEMBLER Medication Refill 01/23/2015 Refill [facility] [address] [place] [address] Nelda Torres, MANUFACTURING ASSEMBLER Medication Refill 12/21/2014 Refill [facility] [address] [place] [address] Dustin Mcintyre MD Medication Refill 11/04/2014 3:00 PM EDT - 11/04/2014 11:59 PM EDT Hospital Encounter [facility] [place] [address] Other epilepsy without status epilepticus, not intractable (HCC); Hyperlipidemia LDL goal < 100 Discharge Disposition: Home or Self Care 11/04/2014 9:15 AM EDT Office Visit [facility] [address] [place] [address] Dustin Mcintyre MD Generalized anxiety disorder (Primary Dx); Asthma, unspecified asthma severity, uncomplicated; COPD (chronic obstructive pulmonary disease) ([facility]); Restless leg syndrome; Gastroesophageal reflux disease without esophagitis; Other epilepsy without status epilepticus, not intractable ([facility]); Hyperlipidemia LDL goal < 100 11/01/2014 Refill [facility] [address] [place] [address] Dustin Mcintyre MD Medication Refill 11/01/2014 Refill [facility] [address] [place] [address] Dustin Mcintyre MD Medication Refill 10/31/2014 Refill [facility] [address] [place] [address] Dustin Mcintyre MD Medication Refill 10/14/2014 Refill [facility] [address] [place] [address] Dustin Mcintyre MD Medication Refill 08/29/[address] [place] [address] Nelda Torres CMA Medication Management (atrarax needs a pa) 08/10/2014 Telephone [facility] [address] [place] [address] Nelda Torres CMA Medication Management (hyrdoxyzine needs a PA) 07/13/2014 Telephone [facility] [address] [place] [address] Nelda Torres CMA Medication Problem 07/08/2014 9:28 AM EDT - 07/08/2014 11:59 PM EDT Hospital Encounter [facility] Physical Therapy [address] [place] [address] Shanice Ybarra, PT Discharge Disposition: Home or Self Care 07/01/2014 10:04 AM EDT - 07/01/2014 11:59 PM EDT Hospital Encounter [facility] Physical Therapy [place] [address] [place] [address] Shanice Ybarra, PT Discharge Disposition: Home or Self Care 06/28/2014 9:27 AM EDT - 06/28/2014 11:59 PM EDT Hospital Encounter [facility] Physical Therapy [place] [address] [place] [address] Margarita Doran, PT Discharge Disposition: Home or Self Care 06/21/2014 8:15 AM EDT - 06/21/2014 8:45 AM EDT Surgery [facility] [place] [address] Crow Love MD KNEE ARTHROSCOPY MENISCECTOMY/REPAIR (ALSO COVERS ARTHROSCOPIC INCISION AND DRAINAGE/DEBRIDEMENT) 06/21/2014 7:50 AM EDT Anesthesia Event [facility] [place] [address] Artem Naqvi MD Brannon, Daniel Todd, DO 06/21/2014 6:35 AM EDT - 06/21/2014 10:32 AM EDT Hospital Encounter [facility] [place] [address] Crow Love MD Discharge Disposition: Home or Self Care 06/08/2014 10:30 AM EST Office Visit [facility] [address] [place] [address] Dustin Mcintyre MD Pre-op exam (Primary Dx); Arthritis of knee; Folliculitis; Epilepsy (HCC); Restless leg syndrome; JB (generalized anxiety disorder); Hearing loss in left ear; GERD (gastroesophageal reflux disease) 05/25/2014 Telephone [facility] [address] [place] [address] Dustin Mcintyre MD Results 05/21/2014 Refill [facility] [address] [place] [address] Dustin Mcintyre MD Medication Refill 05/20/2014 7:41 PM EST - 05/20/2014 11:59 PM EST Hospital Encounter [facility] [place] [address] Hypernatremia; Pre-op testing Discharge Disposition: Home or Self Care 05/20/2014 Orders Only [facility] [address] [place] [address] Lay Minor MD Hypernatremia (Primary Dx); Pre-op testing 05/20/2014 11:00 AM EST Office Visit [facility] [address] [place] [address] Dustin Mcintyre MD Bronchitis (Primary Dx); COPD exacerbation (HCC); Asthma exacerbation, moderate persistent; Chest wall pain; Vomiting; Hypernatremia 05/19/2014 Patient Outreach [address] [address] Nasrin Perry, ict trainer (ED f/u call ) 05/18/2014 11:12 AM EST - 05/18/2014 12:37 PM EST Emergency [facility] [address] [place] [address] Mariaelena Rossi MD Acute bronchitis (Primary Dx); Acute sinusitis; COPD (chronic obstructive pulmonary disease) (HCC) Discharge Disposition: Home or Self Care 2014 7:57 PM EST - 2014 11:59 PM EST Hospital Encounter [facility] [place] [address] Healthcare maintenance; Epilepsy (HCC) Discharge Disposition: Home or Self Care 2014 10:00 AM EST Office Visit [address] [place] [address] Dustin Mcintyre MD Epilepsy (HCC) (Primary Dx); Generalized anxiety disorder; Hyperlipidemia LDL goal < 100; Restless leg syndrome; GERD (gastroesophageal reflux disease); Healthcare maintenance; COPD (chronic obstructive pulmonary disease) ([facility]) 04/01/2014 Telephone [facility] [address] [place] [address] Dustin Mcintyre MD Results 03/23/2014 11:00 AM EST Office Visit [facility] [address] [place] [address] Wheezing; SOB (shortness of breath) Discharge Disposition: Home or Self Care 03/18/2014 10:45 AM EST Office Visit [facility] [address] [place] [address] Dustin Mcintyre MD Wheezing (Primary Dx); SOB (shortness of breath) 03/17/2014 Telephone [facility] [address] [place] [address] Nelda Torres CMA Medication Management (protonix bid needs a PA) 03/14/2014 Telephone [facility] [address] [place] [address] Dustin Mcintyre MD Medication Refill 03/08/2014 Telephone [facility] [address] [place] [address] Dustin Mcintyre MD Other 03/08/2014 11:20 AM EST - 03/08/2014 11:59 PM EST Hospital Encounter [facility] [address] [place] [address] Allergic rhinitis, cause unspecified (Primary Dx); Epilepsy ([facility]); Hearing loss in left ear; GERD (gastroesophageal reflux disease); JB (generalized anxiety disorder); FHx: prostate cancer; FHx: lung cancer; Nicotine dependence; Restless leg syndrome Discharge Disposition: Home or Self Care 03/08/2014 10:45 AM EST Office Visit [facility] [address] [place] [address] Dustin Mcintyre MD Hyperlipidemia LDL goal < 100 (Primary Dx); GERD (gastroesophageal reflux disease); Asthma, unspecified asthma severity, uncomplicated; Epilepsy (HCC); Generalized anxiety disorder; Restless leg syndrome 02/12/2014 Refill [facility] [address] [place] [address] Dustin Mcintyre MD Medication Refill 02/04/2014 8:00 AM EDT - 02/04/2014 9:52 AM EDT Surgery [facility] [address] [place] [address] Los Gordon MD FUNCTIONAL ENDOSCOPIC SINUS SURGERY/SINOSCOPY 02/04/2014 6:27 AM EDT - 02/04/2014 11:53 AM EDT Hospital Encounter [facility] SAME DAY SURGERY [address] [place] [address] Los Gordon MD Discharge Disposition: Home or Self Care 02/02/2014 11:00 AM EDT - 02/02/2014 11:59 PM EDT Hospital Encounter [facility] PRE-ADMIT TESTING [address] [place] [address] Pat, Clarice Discharge Disposition: Home or Self Care 01/24/2014 11:29 AM EDT - 01/24/2014 11:59 PM EDT Hospital Encounter [facility] [address] [place] [address] Esophageal reflux (Primary Dx); Dyspepsia and other specified disorders of function of stomach; Dysphagia, unspecified(787.20) Discharge Disposition: Home or Self Care 11/19/2013 10:30 AM EDT Office Visit [facility] [address] [place] [address] Dustin Mcintyre MD Laceration of wrist, left, subsequent encounter (Primary Dx) 11/13/2013 Refill [facility] [address] [place] [address] Marcela Ding MD Medication Refill 11/12/2013 6:42 PM EDT - 11/12/2013 7:45 PM EDT Emergency [facility] [address] [place] [address] Jerson Go MD Wrist laceration, left, initial encounter (Primary Dx) Discharge Disposition: Home or Self Care 11/03/[address] [place] [address] Chyna Mcgraw MA Referral (ORTHO) 11/01/2013 Orders Only [address] [place] [address] Marcela Ding MD Knee pain, right (Primary Dx) 11/01/2013 8:55 AM EDT - 11/01/2013 11:59 PM EDT Hospital Encounter [facility] [address] [place] [address] Dustin Mcintyre MD Right knee pain; Recurrent right knee instability Discharge Disposition: Home or Self Care 10/29/[address] [place] [address] Dustin Mcintyre MD Other 10/28/2013 Telephone [address] [place] [address] Dustin Mcintyre MD Referral 10/25/2013 4:43 PM EDT - 10/25/2013 11:59 PM EDT Hospital Encounter [facility] [address] [place] [id number] Hyperlipidemia LDL goal < 100 (Primary Dx); Epilepsy (HCC); Screening PSA (prostate specific antigen); Family history of prostate cancer; FHx: prostate cancer; Other nonspecific abnormal serum enzyme levels Discharge Disposition: Home or Self Care 10/25/2013 Telephone [address] [place] [address] Nelda Torres CMA Medication Management (Nexium bid dosing needs a PA) 10/25/2013 10:30 AM EDT Office Visit [address] [place] [address] Dustin Mcintyre MD Epilepsy ([facility]) (Primary Dx); Asthma, unspecified asthma severity, uncomplicated; Generalized anxiety disorder; JB (generalized anxiety disorder); GERD (gastroesophageal reflux disease); Family history of prostate cancer; Hyperlipidemia LDL goal < 100; FHx: prostate cancer; Hearing loss in left ear; Restless leg syndrome; Right knee pain; Recurrent right knee instability; Screening PSA (prostate specific antigen) 10/18/2013 Refill [facility] [address] [place] [address] Germán Bradley MD Medication Refill 10/13/2013 10:00 AM EDT Office Visit [facility] [address] [place] [address] Tu Rivera MD Epilepsy ([facility]) (Primary Dx); Hearing loss in left ear; Nicotine dependence; Restless leg syndrome 09/10/2013 Refill [facility] [address] [place] [address] Germán Bradley MD Medication Refill 08/30/2013 Refill [facility] [address] [place] [address] Nelda Torres [facility] Medication Refill 08/26/2013 Telephone [facility] [address] [place] [address] Nelda Torres [facility] Referral 08/26/2013 Refill [facility] [address] [place] [address] Germán Bradley MD Medication Refill 08/26/2013 11:20 AM EDT - 08/26/2013 11:59 PM EDT Hospital Encounter [facility] Physical Therapy [facility] [address] [place] [address] Yvrose Palma, PT Discharge Disposition: Home or Self Care 08/17/2013 1:17 PM EDT - 08/17/2013 11:59 PM EDT Hospital Encounter [facility] Physical Therapy [facility] [address] [place] [address] Yvrose Palma, PT Discharge Disposition: Home or Self Care 08/16/2013 Refill [facility] [address] [place] [address] Germán Bradley MD Medication Refill 08/16/2013 Refill [facility] [address] [place] [address] Dustin Mcintyre MD Medication Refill 08/12/2013 Refill [facility] [address] [place] [address] Marcela Ding MD Medication Refill 08/12/2013 Refill [facility] [address] [place] [address] Germán Bradley MD Medication Refill 08/12/2013 Refill [facility] [address] [place] [address] Dustin Mcintyre MD Medication Refill 07/27/2013 Telephone SE[facility] [address] [place] [address] Nelda Torres, NIESHA Medication Refill 07/23/2013 8:30 AM EDT - 07/23/2013 11:59 PM EDT Hospital Encounter [place] [id number] [place] [address] Los Gordon MD Sensorineural hearing loss, asymmetrical; Abnormal auditory perception, unspecified Discharge Disposition: Home or Self Care 07/07/2013 Refill [facility] [address] [place] [address] Nelda Torres, [employer]URING [employer]SEMBLER Medication Refill 06/29/2013 2:00 PM EDT - 06/29/2013 11:59 PM EDT Hospital Encounter [facility] [address] [place] [address] Mag Becerra [facility] Discharge Disposition: Home or Self Care 06/25/2013 Refill [facility] [address] [place] [address] Dustin Mcintyre MD Medication Refill 06/01/2013 Telephone [facility] [address] [place] [address] Germán Bradley MD Labs Only 05/31/2013 4:54 PM EST - 05/31/2013 11:59 PM EST Hospital Encounter [facility] [place] [address] Well adult exam; Epilepsy (HCC) Discharge Disposition: Home or Self Care 05/31/2013 10:00 AM EST - 05/31/2013 4:53 PM EST Hospital Encounter [facility] [address] [place] [address] COPD (chronic obstructive pulmonary disease) (HCC); FHx: lung cancer; Cough Discharge Disposition: Home or Self Care 05/31/2013 9:15 AM EST Office Visit [facility] [place] [address] Germán Bradley MD Well adult exam (Primary Dx); COPD (chronic obstructive pulmonary disease) (HCC); Epilepsy (HCC); GERD (gastroesophageal reflux disease); JB (generalized anxiety disorder); Atypical moles; FHx: prostate cancer; FHx: lung cancer; Cough; Tobacco abuse 05/26/2013 Telephone [facility] [address] [place] [address] Dustin Mcintyre MD Epistaxis 05/24/2013 Refill [facility] [address] [place] [address] Germán Bradley MD Medication Refill 05/21/2013 Refill [facility] [address] [place] [address] Dustin Mcintyre MD Medication Refill 05/21/2013 Refill [facility] [address] [place] [address] Germán Bradley MD Medication Refill 05/03/2013 Telephone [facility] [address] [place] [address] TorresNelda jackson [facility] Medication Refill 04/29/2013 10:15 AM EST Office Visit [facility] [address] [place] [address] Germán Bradley MD JB (generalized anxiety disorder) (Primary Dx); Back strain 04/15/2013 Refill [facility] [address] [place] [address] Marcela Ding MD Medication Refill 04/15/2013 Refill [facility] [address] [place] [address] Germán Bradley MD Medication Refill 03/24/[address] [place] [address] Veronica Freed MA Anxiety 03/16/[address] [place] [address] Chyna Mcgraw MA Referral (ORTHO) 03/15/2013 1:00 PM EST Office Visit [facility] [address] [place] [address] Dustin Mcintyre MD Arthralgia of shoulder region, right (Primary Dx); Arthritis of elbow, right; GERD (gastroesophageal reflux disease); RLS (restless legs syndrome); Epilepsy (HCC); Bipolar affective disorder (HCC); Generalized anxiety disorder; Asthma 03/14/2013 Refill [facility] [address] [place] [address] Germán Bradley MD Medication Refill 03/05/2013 Telephone [facility] [place] [address] [place] [address] Dustin Mcintyre MD Medication Change 03/02/2013 2:15 PM EST Office Visit [facility] [place] [address] [place] [address] Dustin Mcintyre MD Shoulder pain (Primary Dx) 03/02/2013 1:27 PM EST - 03/02/2013 11:59 PM EST Hospital Encounter [place] [address] [place] [address] Kathy Wasserman, PT Discharge Disposition: Home or Self Care 03/01/2013 Refill [facility] [address] [place] [address] Germán Bradley MD Medication Refill 03/01/2013 Refill [facility] [address] [place] [address] Dustin Mcintyre MD Medication Refill 03/01/2013 Refill [facility] [address] [place] [address] Marcela Ding MD Medication Refill 02/27/2013 Telephone [facility] [address] [place] [address] Germán Bradley MD Other 02/26/2013 10:07 AM EST - 02/26/2013 11:59 PM EST Hospital Encounter [address] [place] [address] Kathy Wasserman, PT Discharge Disposition: Home or Self Care 02/18/2013 12:51 PM EST - 02/18/2013 11:59 PM EST Hospital Encounter [address] [place] [address] Kathy Wasserman, PT Discharge Disposition: Home or Self Care 02/12/2013 Refill [facility] [address] [place] [address] Dustin Mcintyre MD Medication Refill 02/10/2013 9:06 AM EDT - 02/10/2013 11:59 PM EDT Hospital Encounter [facility] Physical [address] [place] [address] Kathy Wasserman, PT Discharge Disposition: Home or Self Care 02/05/2013 12:26 PM EDT - 02/05/2013 11:59 PM EDT Hospital Encounter [address] [place] [address] Kathy Wasserman, PT Discharge Disposition: Home or Self Care 02/01/2013 Refill [facility] [address] [address] Marcela Ding MD Medication Refill 01/29/2013 Telephone [facility] [address] [place] [address] Germán Bradley MD Medication Refill 01/18/2013 8:30 AM EDT - 01/18/2013 9:30 AM EDT Surgery [facility] [address] [place] [address] Crow Love MD SHOULDER ARTHROSCOPY LABRAL/BANKART/ BICEP TENODESIS (COVERS SUPERIOR LABRAL ANTERIOR POSTERIOR REPAIR/SLAP) 01/18/2013 5:21 AM EDT - 01/18/2013 12:50 PM EDT Hospital Encounter [facility] SAME DAY SURGERY [address] [place] [address] Crow Love MD Discharge Disposition: Home or Self Care 01/14/2013 Telephone [facility] [address] [place] [address] Germán Bradley MD Medication Reaction 01/08/2013 2:00 PM EDT Office Visit [facility] [address] [place] [address] Germán Bradley MD Infected inclusion cyst (Primary Dx); RLS (restless legs syndrome) 12/25/2012 12:38 PM EDT - 12/25/2012 11:59 PM EDT Hospital Encounter [facility] MRI [address] [place] [address] Germán Bradley MD Rotator cuff syndrome of left shoulder Discharge Disposition: Home or Self Care 12/20/2012 9:52 AM EDT - 12/20/2012 11:16 AM EDT Emergency [facility] [place] [address] Pino Maxwell MD Foot sprain (Primary Dx) Discharge Disposition: Home or Self Care 12/16/2012 1:45 PM EDT Office Visit [facility] [address] [place] [address] Germán Brdaley MD Rotator cuff syndrome of left shoulder (Primary Dx); Need for influenza vaccination 12/15/2012 Telephone [facility] [address] [place] [address] Germán Bradley MD Referral 12/11/2012 Refill [facility] [address] [place] [address] Marcela Ding MD Medication Refill 12/11/2012 Refill [facility] [address] [place] [address] Germán Bradley MD Medication Refill 12/02/2012 11:17 AM EDT - 12/02/2012 11:59 PM EDT Hospital Encounter [facility] Physical Therapy [facility] [address] [place] [address] Chyna Mathis, PT Discharge Disposition: Home or Self Care 12/02/2012 10:00 AM EDT Office Visit [facility] [address] [place] [address] Germán Bradley MD Seborrhea (Primary Dx); Cervical lymphadenitis 11/19/2012 Refill [facility] [address] [place] [address] Germán Bradley MD Medication Refill 11/18/2012 10:41 AM EDT - 11/18/2012 11:59 PM EDT Hospital Encounter [facility] Physical Therapy [facility] [address] [place] [address] Shanice Ybarra PT Rotator cuff syndrome (Primary Dx) Discharge Disposition: Home or Self Care 11/09/2012 12:11 PM EDT - 11/09/2012 11:59 PM EDT Hospital Encounter [facility] [address] [place] [address] Scoliosis; Back pain Discharge Disposition: Home or Self Care 11/09/2012 11:30 AM EDT Office Visit [facility] [address] [place] [address] Germán Bradley MD Rotator cuff syndrome Bilateral (Primary Dx) 11/05/2012 Telephone [facility] [address] [place] [address] Germán Bradley MD Back Pain 11/03/2012 Telephone [facility] [address] [place] [address] Nelda Torres CMA Back Pain 11/02/2012 5:12 PM EDT - 11/02/2012 11:59 PM EDT Hospital Encounter [facility] [place] [address] Epilepsy (HCC) Discharge Disposition: Home or Self Care 11/02/2012 9:00 AM EDT Office Visit [facility] [address] [place] [address] Germán Bradley MD LBP (low back pain) (Primary Dx); Neck pain; Shoulder pain; JB (generalized anxiety disorder); Epilepsy (HCC) 10/31/2012 Refill [facility] [address] [place] [address] Nelda Torres CMA Medication Refill 10/26/2012 Refill [facility] [address] [place] [address] Germán Bradley MD Medication Refill 10/20/2012 Telephone [facility] [address] [place] [address] Dustin Mcintyre MD Other 10/14/2012 Telephone [facility] [address] [place] [address] Dustin Mcintyre MD Medication Refill; Medication Change 10/09/2012 5:34 PM EDT - 10/09/2012 11:59 PM EDT Hospital Encounter [facility] [place] [address] Epilepsy (HCC); Generalized anxiety disorder Discharge Disposition: Home or Self Care 10/09/2012 Telephone [facility] [address] [place] [address] Norma Greenfield MA Medication Change 10/09/2012 8:30 AM EDT Office Visit [facility] [address] [place] [address] Dustin Mcintyre MD Epilepsy (HCC) (Primary Dx); GERD (gastroesophageal reflux disease); Asthma; Bipolar affective disorder (HCC); Generalized anxiety disorder; ED (erectile dysfunction) 06/20/2012 Refill [facility] [address] [place] [address] Marcela Ding MD Medication Refill 05/01/2012 1:57 PM EST - 05/01/2012 11:59 PM EST Hospital Encounter [facility] Physical [facility] [address] [place] [address] Kathy Wasserman, PT Discharge Disposition: Home or Self Care 04/24/2012 1:47 PM EST - 04/24/2012 11:59 PM EST Hospital Encounter [facility] [address] [place] [address] Kathy Wasserman, PT Discharge Disposition: Home or Self Care 04/17/2012 1:01 PM EST - 04/17/2012 11:59 PM EST Hospital Encounter [facility] [address] [place] [address] Kathy Wasserman, PT Discharge Disposition: Home or Self Care 04/16/2012 Refill [facility] [address] [place] [address] Marcela Ding MD Medication Refill 04/05/2012 5:08 PM EST - 04/05/2012 6:19 PM [facility] [address] [place] [address] Roshan Sanchez MD Chronic knee pain (Primary Dx) Discharge Disposition: Home or Self Care 03/09/2012 Refill [facility] [address] [place] [address] Marcela Ding MD Medication Refill 03/03/2012 Refill [facility] [address] [place] [address] Marcela Ding MD Medication Refill 02/28/2012 8:15 PM EST - 02/28/2012 11:59 PM EST Hospital Encounter [facility] [place] [address] Epilepsy (HCC); Bipolar affective disorder (HCC); Abdominal pain Discharge Disposition: Home or Self Care 02/28/2012 10:20 AM EST Office Visit [facility] [address] [place] [address] Germán Bradley MD Epilepsy (HCC); Abdominal pain; Bipolar affective disorder (HCC); Asthma; Knee pain, left 01/17/2012 Telephone [facility] [address] [place] [address] Marcela Ding MD Medication Refill 12/21/2011 Refill [facility] [address] [place] [address] Germán Bradley MD Medication Refill 12/02/2011 7:06 PM EDT - 12/02/2011 11:59 PM EDT Hospital Encounter [facility] [place] [address] Bipolar affective disorder (HCC); Encounter for long-term (current) use of medications Discharge Disposition: Home or Self Care 12/02/2011 10:20 AM EDT Office Visit [place] [address] [place] [address] Dustin Mcintyre MD Knee pain, left (Primary Dx); Epilepsy (HCC); Bipolar affective disorder (HCC); Asthma; COPD (chronic obstructive pulmonary disease) (HCC); Anxiety; Encounter for long-term (current) use of medications 10/31/2011 [address]ill [address] [place] [address] Germán Bradley MD Medication Refill 10/17/2011 Telephone [facility] [address] [place] [address] Marcela Ding MD Other 10/01/2011 3:24 PM EDT - 10/01/2011 4:31 PM EDT Emergency [facility] [address] [place] [address] Mariaelena Rossi MD Contusion of third finger, right; Left elbow contusion; Fall Discharge Disposition: Home or Self Care 09/14/2011 Refill [facility] [place] [address] [place] [address] Germán Bradley MD Medication Refill 08/23/2011 9:20 AM EDT Office Visit [place] [address] [place] [address] Germán Bradley MD Osteoarthritis (Primary Dx); Asthma; Epilepsy (HCC); Arthritis shoulder and knee; GERD (gastroesophageal reflux disease); Bipolar affective disorder (HCC); CTS (carpal tunnel syndrome) 08/07/2011 12:58 PM EDT - 08/07/2011 2:03 PM EDT Emergency [facility] [address] [place] [address] Alfie Perez MD Carpal tunnel syndrome of right wrist; Rotator cuff injury Discharge Disposition: Home or Self Care 07/10/2011 Telephone [facility] [address] [place] [address] Germán Bradley MD Other 07/02/2011 Telephone [facility] [address] [place] [address] Nelda Torres CMA Other (PA for celexa) 06/28/2011 9:51 AM EDT - 06/28/2011 11:59 PM EDT Hospital Encounter [facility] [address] [place] [address] Germán Bradley MD TMJ (dislocation of temporomandibular joint); Jaw pain; Dental decay Discharge Disposition: Home or Self Care 06/28/2011 9:20 AM EDT Office Visit [facility] [address] [place] [address] Germán Bradley MD Bipolar affective disorder (HCC); Anxiety; TMJ (dislocation of temporomandibular joint); Jaw pain; Dental decay 06/11/2011 Telephone [facility] [address] [place] [address] Marcela Ding MD Medication Refill 06/03/2011 8:09 PM EST - 06/03/2011 11:59 PM EST Hospital Encounter [facility] [place] [address] Bipolar affective disorder (HCC); Epilepsy (HCC) Discharge Disposition: Home or Self Care 06/03/2011 1:00 PM EST Office Visit [facility] [address] [place] [address] Germán Bradley MD Bipolar affective disorder (HCC); Asthma; Epilepsy (HCC) 05/18/2011 Refill [facility] [address] [place] [address] Germán Bradley MD Medication Refill 05/03/2011 Telephone [facility] [place] [address] [place] [address] Nelda Torres, NIESHA Other 05/03/2011 10:50 AM EST Office Visit [facility] [address] [place] [address] Germán Bradley MD Asthma (Primary Dx); Side pain; Abdominal wall pain; Bipolar affective disorder (HCC); Epilepsy (HCC) 04/17/2011 Refill [facility] [place] [address] [place] [address] Germán Bradley MD Medication Refill 03/18/2011 Telephone [place] [address] [place] [address] Cleopatra Duran Other 02/18/2011 2:20 PM EST - 02/18/2011 11:59 PM EST Hospital Encounter [facility] Physical [place] [address] [place] [address] Chyna Mathis, PT Discharge Disposition: Home or Self Care 02/11/2011 2:30 PM EDT - 02/11/2011 11:59 PM EDT Hospital Encounter [facility] Physical [place] [address] [place] [address] Chyna Mathis, PT Discharge Disposition: Home or Self Care 02/04/2011 2:24 PM EDT - 02/04/2011 11:59 PM EDT Hospital Encounter [facility] Physical Therapy [place] [address] [place] [address] Chyna Mathis, [place] Discharge Disposition: Home or Self Care 01/11/2011 Telephone [facility] [address] [address] Marcela Ding MD Other 12/28/[address] [address] Lucy Redman Rectal Bleeding 12/19/2010 2:51 PM EDT - 12/19/2010 11:59 PM EDT Hospital Encounter [facility] [place] [address] Elevated glucose Discharge Disposition: Home or Self Care 12/19/2010 10:30 AM EDT Office Visit [address] [address] Germán Bradley MD Bipolar affective disorder (HCC); Epilepsy (HCC); Asthma; AR (allergic rhinitis); GERD (gastroesophageal reflux disease); Arthritis shoulder and knee; Elevated glucose 12/14/[address] [address] Lucy Redman Medication Refill 12/14/[address] [address] Germán Bradley MD Medication Refill 12/12/2010 1:22 PM EDT - 12/12/2010 2:55 PM EDT Emergency [facility] [address] [place] [address] Ty Griffiths, Fibula fracture Discharge Disposition: Home or Self Care 12/08/[address] [address] Inge Quinn, ARMOND Results 11/21/2010 8:29 PM EDT - 11/21/2010 11:59 PM EDT Hospital Encounter [facility] [place] [address] Lipid screening; Epilepsy (HCC); Encounter for long-term (current) use of medications Discharge Disposition: Home or Self Care 11/21/2010 10:30 AM EDT Clinical Support [address] [place] [address] Oralia Cruz Sabine Bipolar affective disorder (HCC); Epilepsy (HCC); Lipid screening; Encounter for long-term (current) use of medications 11/09/[address] [place] [address] Germán Bradley MD Medication Refill 07/31/2010 2:00 PM EDT Office Visit [address] [place] [address] Germán Bradley MD Asthma; Bronchitis; Rotator cuff syndrome 07/30/[address] [place] [address] Lucy Redman Marquis Other 05/02/2010 11:30 AM EST Office Visit [address] [place] [address] Germán Bradley MD Epilepsy (HCC); Bipolar affective disorder (HCC); Asthma; COPD (chronic obstructive pulmonary disease) ([facility]); GERD (gastroesophageal reflux disease); Osteoarthritis 04/30/2010 10:08 AM EST - 04/30/2010 11:59 PM EST Hospital Encounter EDG LAB KELVIN PROCESSING [facility] [place] [address] Marcela Ding MD Encounter for long-term (current) use of other medications; Epilep NOS w/o intr epil; Bipolar disorder NOS Discharge Disposition: Home or Self Care 04/30/2010 9:50 AM EST Clinical Support [address] [place] [address] Nelly Owusu RMA Epilepsy (HCC); Bipolar affective disorder ([facility]) [address] [place] [address] AnthonyOralia A Letter for School/Work ([employer] [employer] form) 04/13/2010 Refill SEP [address] [place] [address] Germán Bradley MD Medication Refill 03/17/2010 Refill SEP [address] [place] [address] Germán Bradley MD Medication Refill 02/12/2010 Refill SEP [address] [place] [address] Germán Bradley MD Medication Refill 01/16/2010 11:10 AM EDT Office Visit [address] [place] [address] Germán Bradley MD COPD (chronic obstructive pulmonary disease) ([facility]); Osteoarthritis of knee 12/21/2009 Refill SEP [address] [place] [address] Marcela Ding MD Medication Refill 12/07/[address] [place] [address] Dustin Mcintyre MD Medication Refill 11/07/2009 7:59 PM EDT - 11/07/2009 11:59 PM EDT Hospital Encounter HST SUWT EDG Germán Bradley MD 11/07/2009 3:20 PM EDT Office Visit [address] [place] [address] Germán Bradley MD PUD (peptic ulcer disease) (Primary Dx); Bipolar affective disorder ([facility]); Asthma; AR (allergic rhinitis) 11/04/2009 10:43 PM EDT - 11/05/2009 12:41 AM EDT Emergency HST GES GRT Ty Griffiths, DO 10/12/2009 12:01 AM EDT - 10/26/2009 1:28 PM EDT Hospital Encounter HST PT Germán Odom MD 10/25/2009 9:30 AM EDT Office Visit SEP [facility] [address] [place] [address] Germán Bradley MD AR (allergic rhinitis); GERD (gastroesophageal reflux disease); Rotator cuff syndrome; Bipolar affective disorder (HCC); Asthma; Epilepsy (HCC) 09/12/2009 12:01 AM EDT - 10/11/2009 11:59 PM EDT Hospital Encounter HST PT Marcela Villanueva MD Burke, Brennan C, MD 09/28/2009 Telephone SEP [facility] [address] [place] [address] Nelly Owusu RMA Medication Problem 09/27/2009 Telephone SEP [facility] [address] [place] [address] Veronica Freed MA Other 09/27/2009 1:20 PM EDT Office Visit [facility] [address] [place] [address] Germán Bradley MD Rotator cuff syndrome; AR (allergic rhinitis); GERD (gastroesophageal reflux disease) 09/14/2009 2:06 AM EDT - 09/14/2009 11:59 PM EDT Emergency HST GES GRT Ty Blake, DO 08/24/2009 2:55 PM EDT - 09/11/2009 11:59 PM EDT Hospital Encounter HST PT Marcela Villanueva MD 09/05/2009 Telephone SEP [facility] [address] [place] [address] Germán Bradley MD Results 09/05/2009 Telephone SEP [facility] [address] [place] [address] Dustin Mcintyre MD Results 09/01/2009 12:01 AM EDT - 09/01/2009 11:59 PM EDT Hospital Encounter HST RADIOLOGY GRT Marcela Ding MD 08/26/2009 Telephone SEP [facility] [address] [place] [address] Germán Bradley MD Results 08/24/2009 3:04 PM EDT - 08/24/2009 11:59 PM EDT Hospital Encounter HST RADIOLOGY GRT Marcela Ding MD 08/24/2009 2:30 PM EDT Office Visit [facility] [address] [place] [address] Marcela Ding MD Shoulder pain (Primary Dx) 08/15/2009 Refill SEP [facility] [address] [place] [address] TorresNelda [facility] Medication Refill 07/25/2009 5:37 PM EDT - 07/25/2009 11:59 PM EDT Hospital Encounter HST SUWT EDG Dustin Mcintyre MD 07/25/2009 3:00 PM EDT Office Visit [facility] [address] [place] [address] Germán Bradley MD Rotator cuff syndrome; Epilepsy (HCC); Encounter for long-term (current) use of other medications 06/26/2009 8:46 AM EDT - 06/26/2009 11:59 PM EDT Hospital Encounter HST RADIOLOGY GRT Wang Ospina 06/15/2009 Telephone SEP [facility] [address] [place] [address] Germán Bradley MD Other 06/15/2009 2:00 PM EST Office Visit [facility] [address] [place] [address] Germán Bradley MD Shoulder pain; Bipolar affective disorder (HCC) 06/06/2009 Telephone SEP [facility] [address] [place] [address] Nelda Torres, MANUFACTURING ASSEMBLER Seizures 05/30/2009 5:31 PM EST - 05/30/2009 11:59 PM EST Hospital Encounter HST EPIC CON UNK EDG Dustin Mcintyre MD 04/20/2009 Abstract SEP [facility] [address] 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 Epilepsy (HCC); Bipolar affective disorder (HCC); Depression, major (HCC); Asthma; COPD (chronic obstructive pulmonary disease) ([facility]); Hearing loss in left ear; GERD (gastroesophageal reflux disease) 02/14/2009 4:29 PM EST - 02/14/2009 11:59 PM EST Hospital Encounter HST EPIC CON UNK EDDustin Mauro MD 01/24/2009 7:06 PM EDT - 01/24/2009 7:58 PM EDT Emergency HST EPIC CON UNK GRT Roni Shaffer MD 11/11/2008 12:41 PM EDT - 11/11/2008 11:59 PM EDT Hospital Encounter HST LAB EDG Germán Bardley MD 09/19/2008 12:01 AM EDT - 09/19/2008 [...] Emergency HST EPIC CON UNK GRT Kelsey Milelr MD 03/22/2002 4:46 PM EST - 03/22/2002 [...] Hospital Encounter HST EPIC CON UNK EDG [facility] 05/26/1997 6:49 PM EST - 05/26/1997 11:59 PM EST Emergency HST MAJOR ER EDG Tunde Ty Monroy, 12/26/1996 7:54 PM EDT - 12/26/1996 11:59 PM EDT Hospital Encounter HST EPIC CON UNK COV [facility] 10/18/1996 5:34 PM EDT - 10/18/1996 11:59 PM EDT Emergency HST EPIC CON UNK EDG Augustine Baldwin MD 10/11/1996 10:10 AM EDT - 10/11/1996 12:10 PM EDT Hospital Encounter HST SAS Jaime Grover MD 03/13/1996 6:17 PM EST - 03/13/1996 11:59 PM EST Hospital Encounter HST EPIC CON UNK COV [facility] 01/21/1996 7:05 PM EDT - 01/21/1996 11:59 PM EDT Hospital Encounter HST EPIC CON UNK COV [facility] 01/01/1996 8:11 PM EDT - 01/06/1996 2:05 PM EDT Hospital Encounter HST BH2 Rosa Clark MD 12/26/1995 8:21 AM EDT - 12/26/1995 11:59 PM EDT Hospital Encounter HST EPIC CON UNK COV [facility] 10/26/1995 9:59 PM EDT - 10/30/1995 1:44 PM EDT Hospital Encounter HST BH2 Wang Rosales MD Cohen, Raymond L 10/12/1995 7:54 PM EDT - 10/12/1995 11:59 PM EDT Hospital Encounter HST EPIC CON UNK COV [facility] 10/04/1995 9:50 PM EDT - 10/07/1995 12:05 PM EDT Hospital Encounter HST BH2 Wang Rosalse MD Cohen, Raymond L 07/07/1995 7:14 PM [...] 9 Active fluticasone (FLONASE) 50 mcg/actuation Nasl Otis, SuspensionIndicati ons:Chronic seasonal allergic rhinitis due to [...] on file Medical Devices Implanted Type Area Egg Gatherer Device Identifier Shelf Expiration Date Model / Serial / Lot [place] Lupine Br W/Dual Suture Orthocord - [id number] Implanted:Qty : 1 on 01/18/2013 by Crow Love MD at [facility] Left: Shoulder J&J:ETHICON:MITE K PRDT [id number] 06/12/2015 [id number] / / [id number] [employer] Lupine Br W/Dual Suture Orthocord - [id number] Implanted:Qty : 1 on 01/18/2013 by Crow Love MD at [facility] Left: Shoulder J&J:ETHICON:MITE K PRDT [id number] 06/11/2014 [id number] / / [id number] [employer] Advance Healix 5.5 Br - [id number] Implanted:Qty : 1 on 06/20/2015 by Crow Love MD at [facility] Right: Shoulder J&J:ETHICON:MITE K PRDT 05/14/2017 [id number] / / [id number] Procedures Procedure Name Priority Date/Time Associated Diagnosis [...] meniscus of knee, current Special Needs FAX CPT;92899 [id number] POCT EKG Routine 06/08/2014 10:16 AM EST [...] AM EDT Chronic maxillary sinusitis Special Needs [place] CPT; 03817/12401 HEPATIC FUNCTION PANEL Routine 4 11:31 AM [...] EDT Rotator cuff (capsule) sprain Special Needs CPT;10049 11119 [id number] MRI SHOULDER LEFT WO CONTRAST Routine 12/25/2012 [...] 946 pg/mL 06/01/2018 4:11 PM EST [facility] Folate >16.00(H) 4.50 - 16.00 ng/mL 06/01/2018 4:11 PM EST [facility] Blood VENOUS BLOOD / Unknown Venipuncture / Unknown 06/01/2018 10:14 AM EST 06/01/2018 10:14 AM EST Narrative [facility] - 06/01/2018 4:11 PM EST Ingestion of roxanna doses of biotin (>5 mg/day) taken within 8 hours of drawing blood sample can interfere with this immunoassay test. us Dustin Mcintyre MD CHEMISTRY ORDERABLES F inal Result [facility]REFERRED [facility] 1 [facility] , [place] [address] * TSH REFLEX (06/01/2018 10:14 AM EST) TSH Reflex 1.640 0.270 - 4.200 mcIU/mL 06/01/2018 3:53 PM EST [facility] Blood VENOUS BLOOD / Unknown Venipuncture / Unknown 06/01/2018 10:14 AM EST 06/01/2018 10:14 AM EST Narrative [facility] Need Fixed [facility] - 06/01/2018 3:53 PM EST Ingestion of roxanna doses of biotin (>5 mg/day) taken within 8 hours of drawing blood sample can interfere with this immunoassay test. Dustin Mcintyre MD CHEMISTRY ORDERABLES F inal Result Performing Organization Address [facility] Co de Phone Number [employer] [address] [place] [address] , [place] [address] * (ABNORMAL) ACUTE HEPATITIS PANEL (06/01/2018 10:14 AM EST) Only the most recent of2 resultswithin the time period is included. Pathologist [facility] Hep Bs Ag Non-Reacti ve Non-Reacti ve 06/02/2018 11:57 AM EST [employer] Hep B Core IgM Non-Reacti ve Non-Reacti ve 06/02/2018 11:57 AM EST [facility] Hep A IgM Non-Reacti ve Non-Reacti ve 06/02/2018 11:57 AM EST [facility] Hep C Ab Reactive(A ) Non-Reacti ve 06/02/2018 11:57 AM EST [employer] Comment:Reactive. Antibodies to HCV detected. >97% of specimens with high signal cutoff confirm as reactive. HCV QUANT W/RFLX TO GENOTYPE -REF LAB Blood VENOUS BLOOD / Unknown Venipuncture / Unknown 06/01/2018 10:14 AM EST 06/01/2018 10:14 AM EST Dustin Mcintyre MD CHEMISTRY ORDERABLES F inal Result Performing Organization Address [facility] Co de Phone Number [facility] Need Fixed [address] , [place] [address] * (ABNORMAL) CBC WITH DIFF (06/01/2018 10:14 AM EST) Only the most recent of16 resultswithin the time period is included. Pathologist [facility] WBC 6.6 3.7 - 10.3 x10(3)/mcL 06/01/2018 [...] 3:19 PM EST [facility] [place] Percent 11.4 % 06/01/2018 3:19 PM EST [...] x10(3)/mcL 06/01/2018 3:19 PM EST [facility] Comment:Automated count of m etamyelocytes, myelocytes and promyelocytes. An absolute IG <0.1 is reported as 0.0. Lymph # 2.1 1.2 - 3.9 x10(3)/mcL 06/01/2018 3:19 PM EST [facility] [place] # 0.8 0.3 - 0.9 x10(3)/[facility] 06/01/2018 3:19 PM EST [facility] Eos# 0.3 0.0 - 0.5 x10(3)/[facility] 06/01/2018 3:19 PM EST [facility] Baso # 0.0 0.0 - 0.1 x10(3)/[facility] 06/01/2018 3:19 PM EST [facility] [employer] [employer] Blood VENOUS BLOOD / Unknown Venipuncture / Unknown 06/01/2018 10:14 AM EST 06/01/2018 10:14 AM EST Dustin Mcintyre MD HEMATOLOGY ORDERABLES Final Result Performing Organization Address [facility] Co de Phone Number [facility] Need Fixed [address] , [place] [address] * (ABNORMAL) PHENYTOIN LEVEL TOTAL (06/01/2018 10:14 AM EST) Only the most recent of20 resultswithin the time period is included. Dilantin 9.0(L) 10.0 - 20.0 mcg/mL 06/01/2018 3:51 PM EST [facility] [employer] [employer] Blood VENOUS BLOOD / Unknown Venipuncture / Unknown 06/01/2018 10:14 AM EST 06/01/2018 10:14 AM EST Dustin Mcintyre MD CHEMISTRY ORDERABLES F inal Result Performing Organization Address [facility] Co de Phone Number [facility] [employer], [address] , [place] [address] * (ABNORMAL) COMPREHENSIVE METABOLIC PANEL [...] mL/min/1.7 3 m2 06/01/2018 3:53 PM EST [facility] GFR Non Afr Am 96 >=60 mL/min/1.7 3 m2 06/01/2018 3:53 PM EST [facility] Comment: This estimated GFR was [...] CHEMISTRY ORDERABLES F inal Result PREFERRED LAB [employer] [address] [facility], [place] [address] [facility] [address] [place] [address] * POCT URINALYSIS DIPSTICK (06/01/2018 9:40 AM EST) Only the most recent of4 resultswithin the time period is included. 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 SEP terminal worker Grav, UA 1.025 1.001 - 1.035 G/DL SEP OFFICE Blood, UA neg POS/NEG SEP OFFICE pH, UA 6.0 5.0 - 8 SEP OFFICE Protein, UA neg POS/NEG SEP OFFICE Urobilinogen, UA 1+ 0.2 - 1.0 MG/DL SEP OFFICE Leukocytes, UA neg POS/NEG SEP OFFICE Nitrite, UA neg POS/NEG SEP OFFICE UA Appear POC SEP OFFICE Lot Number [id number] SEP OFFICE Expiration Date 12/22/2019 SEP OFFICE [...] mg/dL 12/05/2017 3:59 PM EDT PREFERRED [facility] [employer] [employer] Comment: < 200 Desirable 200 - 239 Borderline High >= 240 High Triglyceride 316(H) <=150 mg/dL 12/05/2017 3:59 PM EDT [employer] [facility] [employer] Comment: < 150 Normal 150 - 199 Borderline High 200 - 499 High >= 500 Very High HDL 33(L) >=40 mg/dL 12/05/2017 3:59 PM EDT [employer] Comment: > 60 Optimal 40 - 60 Acceptable < 40 Low LDL Calculated 111(H) <=100 mg/dL 12/05/2017 3:59 PM EDT [employer] Non-HDL-C Calculated 174(H) <=129 mg/dL 12/05/2017 3:59 PM EDT [employer] Comment: <130 Desirable 130-159 Above Desirable 160-189 Borderline High 190-219 High >= 220 Very High Blood VENOUS BLOOD / Unknown Venipuncture / Unknown 12/05/2017 9:03 AM EDT 12/05/2017 9:03 AM EDT us Germán Bradley MD CHEMISTRY ORDERABLES Final Re sult PREFERRED [facility] [employer] [employer] [address] [facility] , [address] [place] [id number] * DRUGS OF ABUSE, SCREEN ONLY, URINE (06/30/2017 10:59 PM EDT) Only the most recent of2 resultswithin the time period is included. 6 AM (Heroin) Absent Absent 06/30/2017 11:29 PM EDT [facility] Amphetamines Absent Absent 06/30/2017 11:29 PM EDT [facility] Barbiturates Absent Absent 06/30/2017 11:29 PM EDT [facility] Benzodiazepines Absent Absent 8 11:29 PM EDT [facility] Buprenorphine Absent Absent 06/30/2017 11:29 PM EDT [facility] Cannabinoid Metabolite Absent Absent 06/30/2017 11:29 PM EDT [facility] Cocaine Metabolite Absent Absent 2017 11:29 PM EDT [facility] Methadone and Metabolite Absent Absent 06/30/2017 11:29 PM EDT [facility] Opiate Absent Absent 06/30/2017 11:29 PM EDT [facility] Oxycodone Lvl Absent Absent 06/30/2017 11:29 PM EDT [facility] Phencyclidine Absent Absent 06/30/2017 11:29 PM EDT [facility] Creatinine Ur >25.0 mg/dL 06/30/2017 11:29 PM EDT [facility] Comment: Greater than 20: Consistent with valid sample Greater than 2 but less than 20: Possible dilution Less than 2: Questionable valid sample Urine STRUCTURE OF URINARY TRACT PROPER / Unknown 06/30/2017 10:59 PM EDT 06/30/2017 11:03 PM EDT Narrative [facility] - 06/30/2017 11:29 PM EDT [...] ORDERABLES Final Resul t Performing Organization Address [facility] de Phone Number [facility] [address] [place] [address] * EXTRA GOLD SST (06/30/2017 10:18 PM EDT) Blood VENOUS BLOOD / Unknown Venipuncture / Unknown 06/30/2017 10:18 PM EDT 06/30/2017 10:27 PM EDT Robbie Queen MD CHEMISTRY ORDERABLES Final Resul t Performing Organization Address [facility] Phone Number [facility] [address] [place] [address] * EXTRA LAVENDER (06/30/2017 10:18 PM EDT) Blood VENOUS BLOOD / Unknown Venipuncture / Unknown 06/30/2017 10:18 PM EDT 06/30/2017 10:27 PM EDT Robbie Queen MD HEMATOLOGY ORDERABLES Final Resu lt Performing Organization Address [facility] de Phone Number [facility] [address] [place] [address] * EXTRA LIGHT BLUE (06/30/2017 10:18 PM EDT) Only the most recent of2 resultswithin the time period is included. Blood VENOUS BLOOD / Unknown Venipuncture / Unknown 06/30/2017 10:18 PM EDT 06/30/2017 10:27 PM EDT Robbie Queen MD HEMATOLOGY ORDERABLES Final Resu lt Performing Organization Address [facility] Phone Number [facility] [address] [place] [address] * (ABNORMAL) ALCOHOL MEDICAL (06/30/2017 10:18 PM EDT) Only the most recent of2 resultswithin the time period is included. Alcohol Medical 36(H) <=10 mg/dL 06/30/2017 10:39 PM EDT [facility] Blood VENOUS BLOOD / Unknown Venipuncture / Unknown 06/30/2017 10:18 PM EDT 06/30/2017 10:26 PM EDT us Robbie Queen MD CHEMISTRY ORDERABLES Final Resul t Performing Organization Address [facility] de Phone Number [facility] [address] [place] [address] * ACETAMINOPHEN LEVEL (06/30/2017 10:18 PM EDT) Only the most recent of2 resultswithin the time period is included. Acetaminophen Lvl <15.0 mcg/mL 018 11:16 PM EDT [facility] Blood VENOUS BLOOD / Unknown Venipuncture / Unknown 06/30/2017 10:18 PM EDT 06/30/2017 10:27 PM EDT Narrative [facility] - 06/30/2017 11:16 PM EDT Therapeutic: 10-30 mcg/ml Supratherapeutic: > 35 mcg/ml Toxic: > 150 mcg/ml (4h post ingestion) > 75 mcg/ml (8h post ingestion) > 40 mcg/ml (12h post ingestion) us Holly Brannon APRN CHEMISTRY ORDERABLES Final R esult Performing Organization Address [facility] de Phone Number [facility] [address] [place] [address] * SALICYLATE LEVEL (06/30/2017 10:18 PM EDT) Only the most recent of2 resultswithin the time period is included. Salicylate <0.3 <=0.3 mg/dL 06/30/2017 11:16 PM EDT [facility] Blood VENOUS BLOOD / Unknown Venipuncture / Unknown 06/30/2017 10:18 PM EDT 06/30/2017 10:27 PM EDT us Holly Brannon GLUE DRIER OPERATOR CHEMISTRY ORDERABLES Final R esult [facility] [address] [place] [address] * (ABNORMAL) BASIC METABOLIC PANEL (06/30/2017 10:18 PM EDT) Only the most recent of5 resultswithin the time period is included. Sodium 142 136 - 145 mmol/L 06/30/2017 11:16 PM EDT [facility] Potassium 4.1 3.5 - 5.0 mmol/L 06/30/2017 11:16 PM EDT [facility] Chloride 101 98 - 107 mmol/L 06/30/2017 11:16 PM EDT [facility] Total CO2 26 22 - 29 mmol/L 06/30/2017 11:16 PM EDT [facility] Anion Gap 15 7 - 16 mmol/L 06/30/2017 11:16 PM EDT [facility] Calcium 9.4 8.6 - 10.2 mg/dL 06/30/2017 11:16 PM EDT [facility] Glucose Lvl 115(H) 74 - 100 mg/dL 06/30/2017 11:16 PM EDT [facility] BUN 12 6 - 20 mg/dL 06/30/2017 11:16 PM EDT [facility] Creatinine 0.96 0.67 - 1.30 mg/dL 06/30/2017 11:16 PM EDT [facility] GFR Afr Am 110 mL/min/1.7 3 m2 06/30/2017 11:16 PM EDT [facility] GFR Non Afr Am 95 mL/min/1.7 3 m2 06/30/2017 11:16 PM EDT [facility] Comment: GFR Afr Am and [...] Brannon APRN CHEMISTRY ORDERABLES Final R esult [facility] [address] [place] [id number] * XR WRIST RIGHT PA LATERAL AND [...] days. IMPRESSION: Negative exam. us Gómez D Cosmos GLUE DRIER OPERATOR IMG DIAGNOSTIC IMAGING OR DERABLES Final Result [...] of fourth finger as described. Gómez Reis GLUE DRIER OPERATOR IMG DIAGNOSTIC IMAGING OR DERABLES Final Result * EXTRA DORADO URINE CX (04/16/2017 1:05 AM EST) Urine URINE SPECIMEN COLLECTION, CLEAN CATCH / Unknown 04/16/2017 1:05 AM EST 04/16/2017 1:17 AM EST Jose Carlos Rasheed MD MICROBIOLOGY - GENERAL ORDERAB LES Final Result [facility] [address] [place] [address] * URINALYSIS (04/16/2017 1:05 AM EST) Only the most recent of3 resultswithin the time period is included. UA Color Yellow 04/16/2017 1:20 AM [facility] UA Appear Clear Clear 04/16/2017 1:20 AM EST [facility] UA Glucose Negative Negative mg/dL 04/16/2017 1:20 AM EST [facility] UA Ketones Negative Negative mg/dL 04/16/2017 1:20 AM EST [facility] UA Blood Negative Negative 04/16/2017 1:20 AM [facility] UA pH 6.0 5.0 - 8.0 pH 04/16/2017 1:20 AM [facility] UA Protein Negative Negative mg/dL 04/16/2017 1:20 AM [facility] UA Urobilinogen 0.2 <=1 E.U./dL 04/16/19 18 1:20 AM [facility] UA Nitrite Negative Negative 04/16/2017 1:20 AM [facility] UA Leuk Est Negative Negative 04/16/2017 1:20 AM [facility] UA Spec Grav 1.025 1.001 - 1.035 no units 04/16/2017 1:20 AM [facility] Comment: Reference range valid for random specimens only. Urine URINE SPECIMEN COLLECTION, CLEAN CATCH / Unknown 04/16/2017 1:05 AM EST 04/16/2017 1:17 AM EST Jose Carlos Rasheed MD URINE ORDERABLES Final Result [facility] [address] [place] [place] [address] * LDL, CALCULATED (01/07/2017 10:30 AM EDT) Only the most recent of4 resultswithin the time period is included. Pathologist [facility] LDL Calculated 51 <=100 mg/dL [facility] Comment: < 100 Optimal 100 - 129 Near or above optimal 130 - 159 Borderline High 160 - 189 High >= 190 Very High Blood specimen (specimen) 01/07/2017 10:30 AM EDT 01/07/2017 3:48 PM EDT Dustin Mcintyre MD CHEMISTRY ORDERABLES F inal Result Performing Organization Address [facility] Co de Phone Number [facility] [address] [place] [address] * (ABNORMAL) DIFFERENTIAL (01/07/2017 10:30 AM EDT) Only the most recent of11 resultswithin the time period is included. Neut Percent 48.5 % [facility] Lymph Percent 34.1 % [facility] [place] Percent 9.2 % [facility] Eos Percent 6.9 % [facility] Baso Percent 1.3 % [facility] Neut# 3.9 1.8 - 7.7 x10(3)/mcL [facility] Lymph# 2.7 0.6 - 4.8 x10(3)/mcL [facility] [place]# 0.7 0.0 - 1.3 x10(3)/[facility] Eos# 0.6(H) 0.0 - 0.5 x10(3)/[facility] Baso# 0.1 0.0 - 0.2 x10(3)/[facility] Blood specimen (specimen) 01/07/2017 10:30 AM EDT 01/07/2017 3:48 PM EDT Dustin Mcintyre MD HEMATOLOGY ORDERABLES Final Result Performing Organization Address [facility]/ZIP Co de Phone Number [facility] [address] [place] [address] * XR KNEE RIGHT AP LAT INT [...] EST) 05/06/2016 8:51 AM EST Impressions [facility] - 05/06/2016 8:51 AM EST [...] Bradley MD PFT ORDERABLES Final Result [facility] [address] [place] [address] * POCT EKG (04/29/2016 2:23 PM EST) Only the most recent of4 resultswithin the time period is included. 04/29/2016 2:23 PM EST Impressions SEP OFFICE - 04/29/2016 2:23 PM EST nsr No ischemia Normal ekg Germán Bradley MD POINT OF CARE CARDIOLOGY Zayra l Result Performing Organization Address [facility]/ZIP Co de Phone Number SEP OFFICE * SYPHILIS SCREEN WITH REFLEX RPR QUANT (04/01/2016 4:37 PM EST) TREP(SYPHILIS) AB INDEX <0.10 <=1.09 Index Value [facility] Comment: <0.90 - Negative 0.90 to 1.00 - Equivocal Patients with equivocal results should be retested in 7-14 days. >=1.10 - Positive NOTE: All equivocal and positive results will be reflexed to Quantitative Non-Treponemal(RPR)test. Blood specimen (specimen) UPPER LIMB STRUCTURE / Unknown 04/01/2016 4:37 PM EST 04/01/2016 8:41 PM EST Germán Bradley MD CHEMISTRY ORDERABLES Final Re sult Performing Organization Address [facility]/[place] [address] * XR LUMBAR SPINE AP AND LATERAL [...] abnormality identified in the lumbar spine. Result [facility] Michelle Shirley MD [facility] DIAGNOSTIC IMAGING ORDERABLE S Final Result * [facility] LOWER EXTREMITY VENOUS LEFT (06/23/2015 6:16 [...] right commonfemoral vein. Wang Harmon MD Result [facility] Elina Hall MD G VASCULAR ORDERABLES Fin al Result * SCANNED RHYTHM STRIPS (06/22/2015 11:55 PM EST) Only the most recent of3 resultswithin the time period is included. Anatomical Region Laterality Modality Other 06/22/2015 11:5 5 PM EST Result [facility] Unknown Unknown IM ECG ORDERABLES Final Result * PERIPHERAL BLOCK (06/20/2015 7:47 AM EST) Narrative [facility] - 06/20/2015 7:47 AM EST [...] bill Result - Final Performing Organization Address [facility] [place] [address] * LDL DIRECT (04/20/2015 9:44 AM EST) Only the most recent of5 resultswithin the time period is included. LDL Direct 65 <=100 mg/dL [facility] Comment: < 100 Optimal 100 - 129 Near or above optimal 130 - 159 Borderline High 160 - 189 High >= 190 Very High Blood specimen (specimen) 04/20/2015 9:44 AM EST 04/20/2015 3:48 PM EST us Germán Bradley MD CHEMISTRY ORDERABLES Final Re sult Performing Organization Address [facility] Co de Phone Number [facility] [address] [place] [address] * MRI SHOULDER RIGHT WO CONTRAST (03/22/2015 [...] joint changeswithout undersurface spur. Dustin Mcintyre MD [facility] MRI ORDERABLES Fin al Result * CBC (11/04/2014 10:36 AM EDT) Only the most recent of4 resultswithin the time period is included. WBC 7.2 4.0 - 11.0 x10(3)/mcL [facility] RBC 4.86 4.30 - 5.81 x10(6)/mcL [facility] Hgb 16.1 13.5 - 17.1 gm/dL [facility] Hct 47.6 38.9 - 51.6 % [facility] MCV 97.9 82.5 - 99.8 fL [facility] MCH 33.1 27.0 - 34.3 pg [facility] MCHC 33.8 32.1 - 35.3 gm/dL [facility] RDW 13.6 11.5 - 15.0 % [facility] Platelet 211 144 - 423 x10(3)/mcL [facility] MPV 9.2 6.8 - 10.8 fL [facility] Blood specimen (specimen) UPPER LIMB STRUCTURE / Unknown 11/04/2014 10:36 AM EDT 11/04/2014 4:05 PM EDT us Dustin Mcintyre MD HEMATOLOGY ORDERABLES Final Result Performing Organization Address City/State/[facility] Co de Phone Number [facility] [address] [place] [address] * SCANNED PATHOLOGY REPORT (09/20/2014 5:07 PM [...] EST 03/08/2014 3:39 PM EST Narrative [facility] - 03/16/2014 8:03 AM EST [employer]-See attached Fax to [phone] us Los Gordon MD HEMATOLOGY ORDERABLES Edited Result - Final [facility] [address] [place] [address] * SCANNED PRE/POST PROCEDURES (02/08/2014 1:26 AM [...] Report Accession Number Collected Date/Time Received Date/Time [id number] 02/04/14 08:20 EDT 02/04/14 12:54 EDT Diagnosis 1) Right maxillary ethmoid sinus contents: - Acute and chronic sinusitis. - Negative for malignancy. 2) Left maxillary sinus biopsy: - Acute and chronic sinusitis. - Negative for malignancy. Lisset Saldana (Electronicall y signed by) Verified: 02/07/2014 [facility] Laboratory Clinical Information Chronic maxillary [...] and the findings corroborate the diagnosis. [facility] 02/04/2014 8:20 AM EDT us Los Gordon MD PATHOLOGY ORDERABLES Final R esult [facility] [address] [place] [address] * FUNGUS CULTURE-OTHER (02/04/2014 8:00 AM EDT) Final No growth of fungus at 4 weeks [facility] Specimen from nose (specimen) NASAL STRUCTURE / Unknown 02/04/2014 8:00 AM EDT 02/04/2014 10:08 AM EDT Comment:LEFT MAX SINUS SWAB Narrative [facility] - 03/04/2014 4:01 PM EST Aerobic, anaerobic, fungus culture from left maxillary sinus Los Gordon MD MICROBIOLOGY - GENERAL ORDER MK Final Result Performing Organization Address City/[facility]/ZIP Co de Phone Number [facility] [address] [place] [address] * WOUND CULTURE (02/04/2014 8:00 AM EDT) GS No slide sent/smear made after culture inoculated Rare WBC's Rare RBC's Rare Gram positive cocci [facility] Final Moderate growth of Staphylococcus aureus Sparse growth of Coagulase negative staphylococci No further workup Moderate growth of beta hemolytic Streptococci suspect Streptococcus anginosus group No further workup [facility] Organism Staphylococcus aureus [facility] Specimen from nose (specimen) NASAL STRUCTURE / Unknown 02/04/2014 8:00 AM EDT 02/04/2014 10:08 AM EDT Comment:LEFT MAX SINUS SWAB Narrative [facility] - 02/07/2014 9:08 AM EDT [...] - GENERAL ORDER MK Final Result [facility] [address] [place] [address] * ANAEROBIC CULTURE (02/04/2014 8:00 AM EDT) Final No anaerobic growth at 5 days [facility] Specimen from nose (specimen) NASAL STRUCTURE / Unknown 02/04/2014 8:00 AM EDT 02/04/2014 10:08 AM EDT Comment:LEFT MAX SINUS SWAB Narrative [facility] - 02/10/2014 5:01 PM EDT Aerobic, anaerobic, fungus culture from left maxillary sinus Los Gordon MD MICROBIOLOGY - GENERAL ORDER MK Final Result Performing Organization Address [facility] Co de Phone Number [facility] [address] [place] [address] * HEPATIC FUNCTION PANEL (01/24/2014 11:31 AM EDT) Only the most recent of2 resultswithin the time period is included. Total Protein 6.8 6.4 - 8.3 gm/dL [facility] Albumin 4.2 3.5 - 5.2 gm/dL [facility] Bili Direct <0.2 0.0 - 0.3 mg/dL [facility] Bili Total 0.1 0.1 - 1.4 mg/dL [facility] AST 40 <=40 IU/L [facility] ALT 38 <=41 IU/L [facility] Alk Phos 106 40 - 129 IU/L [facility] Blood specimen (specimen) UPPER LIMB STRUCTURE / Unknown 01/24/2014 11:31 AM EDT 01/24/2014 2:38 PM EDT us Koffi Jay MD CHEMISTRY ORDERABLES Edited R esult - Final Performing Organization Address City/[facility] Co de Phone Number [facility] [address] [place] [address] * XR WRIST LEFT PA LATERAL AND [...] AM EDT) Total PSA 0.66 ng/mL [facility] Comment: 2008 [facility] Best Practice Statement Guidelines-Age Adjusted Reference Intervals: Age Range Whites Americans Americans 40-49 years 0-2.5 ng/mL 0-2.0 ng/mL 0-2.0 ng/mL 50-59 years 0-3.5 ng/mL 0-4.0 ng/mL 0-3.0 ng/mL 60-69 years 0-4.5 ng/mL 0-4.5 ng/mL 0-4.0 ng/mL 70-79 years 0-6.5 ng/mL 0-5.5 ng/mL 0-5.0 ng/mL [facility] uses the [employer] Total PSA assay, which is approved as [...] MD CHEMISTRY ORDERABLES F inal Result [facility] [address] [place] [address] * MRI BRAIN W WO CONTRAST (07/23/2013 [...] be called to his cell phone at [phone]. This call was not made by radiology. [...] results be called to his cell phone [phone]. This call was not made by radiology. Richards Germán Bradley MD [facility] DIAGNOSTIC IMAGING ORDERA BLES Final Result * [...] trauma. IMPRESSION: Negative exam. Mariaelena Rossi MD [facility] DIAGNOSTIC IMAGING ORDER MK Final Result * [...] evaluate orTMJ disc problems. Germán Bradley MD [facility] DIAGNOSTIC IMAGING ORDERA BLES Final Result * HEMOGLOBIN A1C (12/19/2010 11:00 AM EDT) Hgb A1c 5.3 <=7.0 % [facility] Comment: Initial Diagnostic Criteria < 5.7 % Normal 5.7 - 6.4 % At risk for diabetes mellitus >= 6.5 % Consistent with diabetes mellitus Diabetes monitoring Target Value (ADA recommended): < 7 % Blood specimen (specimen) UPPER LIMB STRUCTURE / Unknown 12/19/2010 11:00 AM EDT 12/19/2010 4:04 PM EDT us Germán Bradley MD CHEMISTRY ORDERABLES Final Re sult [facility] [address] [place] [address] * XR ANKLE RIGHT AP LATERAL AND [...] EDT) H pylori IgG 0.44 Index Value [facility] Comment: I.V. = Index Value [...] ORDERABLES Final R esult Performing Organization Address City/State/[facility] Co de Phone Number [facility] [address] [place] [address] * SCANNED EKG (11/06/2009 12:00 AM EDT) Anatomical Region Laterality Modality Other Narrative 11/06/2009 9:16 AM EDT Ordered by an unspecified provider. Transcriptions Unknown, Unknown - 11/06/2009 5:12 AM EDT Unknown Unknown IMG ECG ORDERABLES Final Result * TROPONIN-I (11/05/2009 12:01 AM EDT) Troponin-I 0.01 ng/mL [facility] Comment: Note: New reference ranges [...] DO CHEMISTRY ORDERABLES Final Re sult [facility] [address] [place] [address] * XR CHEST PORTABLE GC (11/04/2009 11:28 [...] normal limits. IMPRESSION- Normal portable chest . Mortarman- ALBERT CRAIG MD Reading Physician- ALBERT CRAIG [...] normal limits. IMPRESSION- Normal portable chest . Mortarman- ALBERT CRAIG MD Reading Physician- ALBERT CRAIG MD Released Date Time- 11/04/09 2352 Ty Griffiths DO IMG [facility] STAR RAD HISTORICAL F inal Result * (ABNORMAL) PHENOBARBITAL LEVEL (11/04/2009 11:27 PM EDT) Phenobarbital Lvl <3.0(L) 15.0 - 40.0 mcg/mL [facility] Blood specimen (specimen) 11/04/2009 11:27 PM EDT 11/05/2009 6:47 PM EDT Ty Griffiths DO CHEMISTRY ORDERABLES Final Re sult [facility] [address] [place] [address] * EK EKG REG GC (11/04/2009 11:02 PM EDT) Only the most recent of3 resultswithin the time period is included. Anatomical Region Laterality Modality Other 11/04/2009 11:0 2 PM EDT Narrative 11/06/2009 2:48 PM EDT Sinus bradycardia Normal ECG except for rate Uli FOY Released Date Time- 11/06/09 1448 Procedure Note Ty Foy - 11/06/2009 Sinus bradycardia Normal ECG except for rate Mortarmandamaso Healy Physician- TY FOY Released Date Time- 11/06/09 1448 Ty Griffiths DO [facility] STAR CARD HISTORICAL Final Result * [...] 3. Degenerative changes of the AC joint. Mortarman- LISSETTE Healy Physician- MEMO TONG M.D. Released Date Time- 09/01/09 1124 Marcela Ding MD [facility] GARRICK Thomas Final Result * XR [...] radiographically on the right than the left. Mortarman- KELSEY Healy Physician- MEMO TONG M.D. Released [...] radiographically on the right than the left. Mortarmandamaso Healy Physician- MEMO TONG M.D. Released Date Time- 08/24/091914 us Marcela Ding MD IMG [facility] STAR RAD CHARANICA L Final Result [...] Diffuse cerebellar hemisphere atrophy of uncertain etiology. Mortarman- RADHA Healy Physician- CEASAR MARROQUIN MD Released [...] Diffuse cerebellar hemisphere atrophy of uncertain etiology. Mortarman- RADHA CEE Reading Physician- CEASAR MARROQUIN MD Released Date Time- 06/26/09 1604 Wang Ospina [facility] STAR RAD HISTORICAL Fin al Result [...] medial meniscus, also apparent on plain films. Mortarman- PETTY LEVIN Reading Physician- LEONARDO PUCKETT MD [...] medial meniscus, also apparent on plain films. Mortarman- PETTY LEVIN Reading Physician- LEONARDO PUCKETT MD Released Date Time- 09/19/082050 Germán Bradley MD [facility] HISTORICAL F inal Result * XR LOWER LEG TIBIA/FIBULA GC (09/09/2008 1:55 PM EDT) Anatomical Region Laterality Modality Other 09/09/2008 1:55 PM EDT Narrative 09/09/2008 6:39 PM EDT Examinations of the left tibia and fibula Indications- Pain. History- Pain. Two views of the left tibia and fibula demonstrate no fractures. There are no malalignments. The cortical margins are intact. Impression- No fractures. Mortarman- PETTY LIVINGSTON Reading Physician- MEMO TONG M.D. Released Date Time- 09/09/081949 Procedure Note Memo Tong - 06/22/2009 Examinations of the left tibia and fibula Indications- Pain. History- Pain. Two views of the left tibia and fibula demonstrate no fractures. There are no malalignments. The cortical margins are intact. Impression- No fractures. Mortarman- PETTY Healy Physician- MEMO TONG M.D. Released Date Time- 09/09/081949 us Germán Bradley MD [facility] HISTORICAL F inal Result * XR KNEE [...] If so, MRI evaluation may be warranted. Mortarmandamaso Gandara- MEMO TONG M.D. Released Date Time- [...] If so, MRI evaluation may be warranted. Mortarman- PETTY Healy Physician- MEMO TONG M.D. Released Date Time- 09/09/08 1950 Germán Bradley MD [facility] STAR RAD HISTORICAL F inal Result [...] The diary was blank. Carolina Campbell 12-04-07 Mortarman- RICK Healy Physician- ISAC BALLARD MD Released [...] The diary was blank. Carolina Campbell 12-04-07 Mortarman- RICK Healy Physician- ISAC BALLARD MD Released Date Time- 12/04/07 1013 Finesse Moore MD [facility] CARD HISTORIC AL Final Result * XR KNEE (04/02/2007 4:00 PM EST) Anatomical Region Laterality Modality Other 04/02/2007 4:00 PM EST Narrative 04/02/2007 4:26 PM EST PER /JESÚS RM7 Left knee 4 views, 04/02/2007 History- Pain following a twisting injury. Findings- There is no acute fracture or subluxation. Joint spaces and articular margins are intact. No definite joint effusion. Impression- Normal. Mortarman- JANA SARKAR Reading Radiologist- PINO ALBARADO Released Date Time- 04/02/07 2883 Procedure Note Pino Albarado - 06/21/2009 PER /JESÚS RM7 Left knee 4 views, 04/02/2007 History- Pain following a twisting injury. Findings- There is no acute fracture or subluxation. Joint spaces and articular margins are intact. No definite joint effusion. Impression- Normal. Mortarman- JANA SARKAR Reading Radiologist- PINO ALBARADO Released Date Time- 04/02/07 163 us David Palma MD [facility] HISTORICAL F inal Result * XR ANKLE [...] Impression- No fracture or dislocation, ankle joint. Mortarman- DALE VELÁSQUEZ Reading Radiologist- RADHA PORTER MD. Released Date Time- 01/01/06 0914 Procedure Note Radha Porter - 06/21/2009 Three-view right ankle- 12/31/2005 Indication- 35-year-old male with unspecified right ankle injury and pain. Findings- There is mild soft tissue thickness over both medial and lateral malleoli. No cortical disruptions or fracture planes seen. Mortise joint is intact. Impression- No fracture or dislocation, ankle joint. Mortarman- DALE VELÁSQUEZ Reading Radiologist- RADHA PORTER MD. Released Date Time- 01/01/06913 Robbie Eldridge MD [facility] HISTORICAL Fi nal Result * [...] soft tissue swelling. Impression- 1. Negative exam. Mortarman- ANGELA SMITH Reading Radiologist- RADHA PORTER MD. [...] soft tissue swelling. Impression- 1. Negative exam. Mortarman- ANGELA SMITH Reading Radiologist- RADHA PORTER MD. Released Date Time- 01/01/06913 Robbie Eldridge MD [facility] [employer] HISTORICAL Fi nal Result * XR SCAPULA [...] definite fracture is identified. Dustin Mcintyre MD [facility] [employer] HISTO RICAL Final Result * XR NOSE [...] The septum is midline. 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
[2025-01-24] MEDS: KETOROLAC 30MG/ML VIAL 15 MG IM (12:33)
[2025-01-24 12:50] VITALS: BP 127/79; PULSE 79; RESP 20; TEMP 36.7; O2SAT 97
[2025-01-24 12:54] VITALS: BP 127/92; PULSE 73; RESP 18; TEMP 36.8; O2SAT 100
== END 2025-01-24 12:54 | disposition home or self-care (01) ==
PROVIDERS: Emergency Provider Emergency Medicine; PCP Family Medicine
DX: M54.50 Low back pain, unspecified (principal); G89.29 Other chronic pain
CPT/HCPCS: 96372; 99283; J1885

== ENCOUNTER 2025-02-04 12:38 | Outpatient (CLI) | payer MEDICARE, MEDICAID, SELFPAY ==
--- OUTSIDE RECORDS SUMMARY | 2025-02-04 12:42 | XMS_ITS | Continuity of Care Document ---
Author Organization [facility] Address [address] [place] [address] Phone Care Team Providers Care Luggage Attendant Name Role Phone Robbie Putnam MD Primary Care Provider [phone] Encounters Date Type Department Care Team Description 07/21/2018 Refill [facility] [address] [place] [address] Germán Bradley MD Medication Refill 06/30/2018 Telephone [facility] [address] [place] [address] Dustin Mcintyre MD Other 06/02/2018 Orders Only [facility] [address] [place] [address] Radha Urbina CCMA Hepatitis A antibody positive (Primary Dx) 06/02/2018 Orders Only [facility] [address] [place] [address] Oralia Cruz RMA Elevated liver function tests (Primary Dx) 06/01/2018 9:30 AM EST Office Visit [facility] [address] [place] [address] Dustin Mcintyre MD Left inguinal [...] Elevated liver function tests 04/13/2018 Refill [facility] [address] [place] [address] Germán Bradley MD Medication Refill 12/22/2017 Telephone [facility] [address] [place] [address] Dustin Mcintyre MD Other 12/05/2017 8:00 AM EDT Office Visit [facility] [address] [facility] [place] [address] Germán Bradley MD Other epilepsy [...] 100 07/22/2017 1:00 PM EDT Office Visit [facility] [address] [facility] [place] [address] Germán Bradley MD Other epilepsy without status epilepticus, not intractable (HCC) (Primary Dx); Impulse control disorder; COPD, mild (HCC); Recurrent major depressive disorder, in full remission; Chest wall pain; Rotator cuff syndrome of left shoulder; JB (generalized anxiety disorder); Closed nondisplaced fracture of distal phalanx of finger, unspecified finger, initial encounter 07/08/2017 Patient Outreach [facility] [address] [place] [address] Jennifer Mccain LPN Care Transition; Care Management - Chart Review; ED Follow-Up Call 07/07/2017 9:44 PM EDT - 07/07/2017 10:25 PM EDT Emergency [facility] [address] [place] [address] Robbie Queen MD Rotator cuff strain, left, initial encounter (Primary Dx) Discharge Disposition: Home or Self Care 05/26/2017 9:28 PM EST - 05/26/2017 10:28 PM EST Emergency [facility] [address] [place] [address] Radha Lopez MD Closed nondisplaced fracture of distal phalanx of right ring finger, initial encounter (Primary Dx); Multiple abrasions Discharge Disposition: Intermediate 05/06/2017 2:00 PM EST Office Visit [facility] [address] [place] [address] Dustin Mcintyre MD Well adult exam (Primary Dx); Other epilepsy without status epilepticus, not intractable (HCC); COPD, mild (HCC); Gastroesophageal reflux disease without esophagitis; Restless leg syndrome; Hyperlipidemia with target LDL less than 100; Cigarette nicotine dependence without complication; Impulse control disorder; Recurrent major depressive disorder, in full remission; Generalized anxiety disorder 04/08/2017 Refill [facility] [address] [place] [address] Dustin Mcintyre MD Medication Refill 04/08/2017 Refill [facility] [address] [place] [address] Germán Bradley MD Medication Refill 04/08/2017 Telephone [facility] [address] [place] [address] Dustin Mcintyre MD Other 02/27/2017 3:00 PM EST Office Visit [facility] [address] [place] [address] Germán Bradley MD Epidermal inclusion cyst (Primary Dx); Acute bacterial sinusitis; Chronic seasonal allergic rhinitis due to pollen; Lumbar sprain, initial encounter; Generalized osteoarthritis of multiple sites 01/16/2017 Telephone [facility] [address] [place] [address] Norma Greenfield MA Advice Only 01/07/2017 3:21 PM EDT - 01/07/2017 11:59 PM EDT Hospital Encounter [facility] [place] [address] Other epilepsy without status epilepticus, not intractable (HCC); Hyperlipidemia with target LDL less than 100 Discharge Disposition: Home or Self Care 01/07/2017 Telephone [facility] [address] [place] [address] Nelda Torres CMA Orders 01/07/2017 9:00 AM EDT Office Visit [facility] [address] [place] [address] Dustin Mcintyre MD Gastroesophageal reflux disease without esophagitis (Primary Dx); COPD, mild (HCC); Hyperlipidemia with target LDL less than 100; Generalized anxiety disorder; Acute pain of right knee; Right knee injury, initial encounter; Other epilepsy without status epilepticus, not intractable (HCC); Major depressive disorder, recurrent episode, mild; Chronic seasonal allergic rhinitis due to pollen 11/10/2016 Refill [facility] [address] [place] [address] Germán Bradley MD Medication Refill 10/21/2016 Refill [facility] [address] [place] [address] Nelda Torres, PEDIATRIC SPEECH LANGUAGE PATHOLOGIST Medication Refill 10/05/2016 Refill [facility] [address] [place] [address] Germán Bradley MD Medication Refill 08/18/2016 Refill [facility] [address] [place] [address] Germán Bradley MD Medication Refill 08/07/2016 1:30 PM EDT - 08/07/2016 11:59 PM EDT Hospital Encounter [facility] [address] [place] [address] Acute pain of right knee; Right knee injury, initial encounter Discharge Disposition: Home or Self Care 08/07/2016 1:15 PM EDT Office Visit [facility] [address] [place] [address] Dustin Mcintyre MD Acute pain of right knee (Primary Dx); Right knee injury, initial encounter 07/24/2016 Telephone [facility] [address] [place] [address] Dustin Mcintyre MD Other 06/21/2016 Telephone [facility] [address] [place] [address] Nelda Torres CMA Prior Authorization (nexium needs a PA) 06/12/2016 Telephone [facility] [address] [place] [address] Dustin Mcintyre MD Other 06/11/2016 7:45 AM EST - 06/11/2016 8:00 AM EST Surgery [facility] [address] [place] [address] Wang Vieira MD CARPAL TUNNEL RELEASE BILATERAL 06/11/2016 6:41 AM EST - 06/11/2016 8:24 AM EST Hospital Encounter [facility] [address] [place] [address] Wang Vieira MD Discharge Disposition: Home or Self Care 05/16/2016 1:15 PM EST Office Visit [facility] [address] [place] [address] Germán Bradley MD COPD, mild (HCC) (Primary Dx); Generalized anxiety disorder; Cigarette nicotine dependence without complication; Bilateral carpal tunnel syndrome 05/09/2016 Patient Outreach [facility] [address] [place] [address] Margie Mo LPN Care Management - Chart Review (Chart Review) 05/08/2016 1:42 PM EST - 05/08/2016 11:59 PM EST Hospital Encounter [facility] [address] [place] [address] Emg, Kiko Edg Bilateral carpal tunnel syndrome (Primary Dx) Discharge Disposition: Home or Self Care 05/06/2016 10:05 AM EST - 05/06/2016 11:59 PM EST Hospital Encounter [facility] [address] [place] [address] COPD, mild (HCC) Discharge Disposition: Home or Self Care 04/29/2016 2:30 PM EST Office [address] [place] [address] Germán Bradley MD Well adult exam (Primary Dx); COPD, mild (HCC); Need for pneumococcal vaccination 04/01/2016 7:27 PM EST - 04/01/2016 11:59 PM EST Hospital Encounter [facility] LAB [facility] PROCESSING [facility] [place] [address] Memory loss; Hyperlipidemia with target LDL less than 100 Discharge Disposition: Home or Self Care 04/01/2016 Orders Only [facility] [address] [place] [address] Kinjal Bustillo RMA Gastroesophageal reflux disease without esophagitis (Primary Dx) 04/01/2016 2:30 PM EST Office Visit [facility] [address] [place] [address] Germán Bradley MD Need for influenza vaccination (Primary Dx); Generalized anxiety disorder; Hyperlipidemia with target LDL less than 100; Seasonal allergic rhinitis, unspecified allergic rhinitis trigger; Other epilepsy without status epilepticus, not intractable ([facility]); Restless leg syndrome; Major depressive disorder, recurrent episode, mild; Gastroesophageal reflux disease without esophagitis; COPD, mild ([facility]); Memory loss 02/20/2016 Refill [facility] [address] [place] [address] Germán Bradley MD Medication Refill 12/28/2015 Refill [facility] [address] [facility] [place] [address] Nelda Torres CMA Medication Refill 11/30/2015 Patient Outreach [facility] [address] [place] [address] Елена Alvares RMA ED Follow-up 11/28/2015 Patient Outreach [address] [place] [address] Margie Mo LPN Care Management - Chart Review (Chart Review-Patient discharged from ED 11/27/2015) 11/27/2015 5:23 PM EDT - 11/27/2015 6:28 PM EDT [facility] [address] [place] [address] Michelle Shirley MD Right-sided low back pain without sciatica (Primary Dx) Discharge Disposition: Home or Self Care 11/21/2015 Patient Outreach [address] [place] [address] Margie Mo LPN Care Management - Chart Review (Chart Review-Patient discharged from ED 11/20/2015) 11/20/2015 Refill [facility] [address] [place] [address] Germán Bradley MD Medication Refill 11/20/2015 3:28 PM EDT - 11/20/2015 4:01 PM EDT [facility] [address] [facility] [place] [address] Devora Lindsey MD Fall, initial encounter (Primary Dx); Cervical strain, initial encounter; Abrasions of multiple sites; Right shoulder strain, initial encounter Discharge Disposition: Home or Self Care 11/16/2015 8:07 PM EDT - 11/16/2015 11:59 PM EDT Hospital Encounter [facility] LAB [facility] PROCESSING [place] [place] [address] Other epilepsy without status epilepticus, not intractable (HCC); Hyperlipidemia with target LDL less than 100 Discharge Disposition: Home or Self Care 11/16/2015 Telephone [facility] [address] [place] [address] Nelda Torres CMA Prior Authorization (michelle frank a PA) 11/16/2015 3:00 PM EDT Office Visit [address] [place] [address] Germán Bradley MD Chronic obstructive pulmonary disease with acute exacerbation (HCC) (Primary Dx); Hyperlipidemia with target LDL less than 100; Generalized anxiety disorder; Restless leg syndrome; Major depressive disorder, recurrent episode, mild; Other epilepsy without status epilepticus, not intractable (HCC); Gastroesophageal reflux disease without esophagitis; Seasonal allergies; Acute bacterial sinusitis 10/21/2015 Refill [facility] [address] [facility] [place] [address] Germán Bradley MD Medication Refill 10/21/2015 Refill [facility] [address] [facility] [place] [address] Dustin Mcintyre MD Medication Refill 09/21/2015 Refill [facility] [address] [facility] [place] [address] Dustin Mcintyre MD Medication Refill 09/15/2015 Telephone [facility] [address] [facility] [place] [address] Germán Bradley MD Other 09/04/2015 Telephone [facility] [address] [place] [address] Nelda Torres CMA Referral 08/23/2015 Refill [facility] [address] [place] [address] Germán Bradley MD Medication Refill 08/22/2015 Telephone [facility] [address] [place] [address] Germán Bradley MD Other 08/17/2015 Telephone [facility] [address] [place] [address] Germán Bradley MD Letter for School/Work 08/08/2015 Telephone [facility] [address] [place] [address] Nelda Torres [facility] Prior Authorization (atarax needs a PA) 08/07/2015 Refill [facility] [address] [place] [address] Germán Bradley MD Medication Refill 07/20/2015 Refill [facility] [address] [place] [address] Germán Bradley MD Medication Refill 07/05/2015 Refill [facility] [address] [place] [address] Dustin Mcintyre MD Medication Refill 06/26/2015 Refill [facility] [address] [place] [address] Germán Bradley MD Medication Refill 06/26/2015 Patient Outreach [facility] [address] [place] [address] Елена Alvares RMA ED Follow-up 06/26/2015 Patient Outreach [facility] [address] [place] [address] Margie Mo LPN Care Management - Chart Review (Discharged from ED 06/23/2015 Chart Reviewed) 06/23/2015 4:34 PM EST - 06/23/2015 6:22 PM EST Emergency [facility] [address] [place] [address] Elina Hall MD Pain of left lower extremity (Primary Dx) Discharge Disposition: Home or Self Care 06/20/2015 8:30 AM EST - 06/20/2015 9:30 AM EST Surgery [facility] [place] [address] Crow Love MD SHOULDER ARTHROSCOPY SUBACROMIAL DECOMPRESSION /FULL MILLY 06/20/2015 7:52 AM EST Anesthesia Event [facility] [place] [address] Jerson Can DO Mucenski, Cathleen M, MD 06/20/2015 6:32 AM EST - 06/20/2015 10:47 AM EST Hospital Encounter [facility] [place] [address] Crow Love MD Discharge Disposition: Home or Self Care 05/10/2015 Refill [facility] [address] [place] [address] Dustin Mcintyre MD Medication Refill 2015 10:00 AM EST Office Visit [facility] [address] [place] [address] Germán Bradley MD Well adult (Primary Dx); Cigarette nicotine dependence without complication 04/20/2015 3:26 PM EST - 04/20/2015 11:59 PM EST Hospital Encounter [facility] LAB [facility] PROCESSING [facility] [place] [address] Other epilepsy without status epilepticus, not intractable (HCC); Hyperlipidemia with target LDL less than 100 Discharge Disposition: Home or Self Care 04/20/2015 Telephone [facility] [address] [place] [address] MaynorarturoЕлена, RMA Anxiety 04/20/2015 9:30 AM EST Office Visit [facility] [address] [place] [address] Germán Bradley MD Chronic obstructive pulmonary disease with acute exacerbation (HCC) (Primary Dx); Generalized anxiety disorder; Gastroesophageal reflux disease without esophagitis; Restless leg syndrome; Hyperlipidemia with target LDL less than 100; Major depressive disorder, recurrent episode, mild; Other epilepsy without status epilepticus, not intractable (HCC); Impingement syndrome, shoulder, right 04/12/2015 Refill [facility] [address] [place] [address] Dustin Mcintyre MD Medication Refill 04/11/2015 Refill [facility] [address] [place] [address] Dustin Mcintyre MD Medication Refill 04/11/2015 Refill [facility] [address] [place] [address] Dustin Mcintyre MD Medication Refill 03/30/2015 11:00 AM EST Office Visit [facility] [address] [place] [address] Germán Bradley MD Shoulder tendonitis, right (Primary Dx); Primary osteoarthritis of right shoulder 03/23/2015 Orders Only [facility] [address] [place] [address] Tu Rivera MD Seizure disorder (HCC) (Primary Dx) 03/22/2015 11:10 AM EST - 03/22/2015 11:59 PM [facility] Hospital Encounter [facility] [address] [place] [address] [phone] Dustin Mcintyre MD Right shoulder pain Discharge Disposition: Home or Self Care 03/21/2015 Orders Only [facility] [address] [place] [address] Елена Alvares, RMSabine Chronic obstructive pulmonary disease with acute exacerbation (HCC) (Primary Dx); Generalized anxiety disorder 03/20/2015 Refill [facility] [address] [place] [address] Dustin Mcintyre MD Medication Refill 03/17/2015 10:15 AM EST Office Visit [facility] [address] [place] [address] Dustin Mcintyre MD Right shoulder pain (Primary Dx) 02/24/2015 11:00 AM EST Office Visit [facility] [address] [place] [address] Dustin Mcintyre MD Generalized anxiety disorder (Primary Dx); Trapezius strain, unspecified laterality, initial encounter; Medial epicondylitis of elbow, right 01/24/2015 Refill [facility] [address] [place] [address] Dustin Mcintyre MD Medication Refill 01/24/2015 Refill [facility] [address] [place] [address] Nelda Torres, PEDIATRIC SPEECH LANGUAGE PATHOLOGIST Medication Refill 01/23/2015 Refill [facility] [address] [place] [address] Nelda Torres, PEDIATRIC SPEECH LANGUAGE PATHOLOGIST Medication Refill 12/21/2014 Refill [facility] [address] [place] [address] Dustin Mcintyre MD Medication Refill 11/04/2014 3:00 PM EDT - 11/04/2014 11:59 PM EDT Hospital Encounter [facility] LAB [facility] PROCESSING [facility] [place] [address] Other epilepsy without status epilepticus, not intractable (HCC); Hyperlipidemia LDL goal < 100 Discharge Disposition: Home or Self Care 11/04/2014 9:15 AM EDT Office Visit [facility] [address] [place] [address] Dustin Mcintyre MD Generalized anxiety disorder (Primary Dx); Asthma, unspecified asthma severity, uncomplicated; COPD (chronic obstructive pulmonary disease) ([facility]); Restless leg syndrome; Gastroesophageal reflux disease without esophagitis; Other epilepsy without status epilepticus, not intractable ([facility]); Hyperlipidemia LDL goal < 100 11/01/2014 Refill [facility] [address] [place] [address] Dustin Mcintyre MD Medication Refill 11/01/2014 Refill [facility] [address] [place] [address] Dustin Mcintyre MD Medication Refill 10/31/[address] [address] [place] [address] Dustin Mcintyre MD Medication Refill 10/14/2014 Refill [facility] [address] [place] [address] Dustin Mcintyre MD Medication Refill 08/29/[address] [place] [address] Nelda Torres CMA Medication Management (atrarax needs a pa) 08/10/2014 Telephone [facility] [address] [place] [address] Nelda Torres CMA Medication Management (hyrdoxyzine needs a PA) 07/13/2014 Telephone [facility] [address] [place] [address] Nelda Torres CMA Medication Problem 07/08/2014 9:28 AM EDT - 07/08/2014 11:59 PM EDT Hospital Encounter [facility] Physical Therapy [facility] [address] [place] [address] Shanice Ybarra, PT Discharge Disposition: Home or Self Care 07/01/2014 10:04 AM EDT - 07/01/2014 11:59 PM EDT Hospital Encounter [facility] Physical Therapy [place] [address] [place] [address] Shanice Ybarra, PT Discharge Disposition: Home or Self Care 06/28/2014 9:27 AM EDT - 06/28/2014 11:59 PM EDT Hospital Encounter [facility] Physical Therapy [place] [address] [place] [address] Margarita Doran, PT Discharge Disposition: Home or Self Care 06/21/2014 8:15 AM EDT - 06/21/2014 8:45 AM EDT Surgery [facility] [place] [address] Crow Love MD KNEE ARTHROSCOPY MENISCECTOMY/REPAIR (ALSO COVERS ARTHROSCOPIC INCISION AND DRAINAGE/DEBRIDEMENT) 06/21/2014 7:50 AM EDT Anesthesia Event [facility] [place] [address] Artem Naqvi MD Brannon, Daniel Todd, DO 06/21/2014 6:35 AM EDT - 06/21/2014 10:32 AM EDT Hospital Encounter [facility] [place] [address] Crow Love MD Discharge Disposition: Home or Self Care 06/08/2014 10:30 AM EST Office Visit [facility] [address] [place] [address] Dustin Mcnityre MD Pre-op exam (Primary Dx); Arthritis of knee; Folliculitis; Epilepsy (HCC); Restless leg syndrome; JB (generalized anxiety disorder); Hearing loss in left ear; GERD (gastroesophageal reflux disease) 05/25/2014 Telephone [facility] [address] [place] [address] Dustin Mcintyre MD Results 05/21/2014 Refill [facility] [address] [facility] [place] [address] Dustin Mcintyre MD Medication Refill 05/20/2014 7:41 PM EST - 05/20/2014 11:59 PM EST Hospital Encounter [facility] PROCESSING [facility] [place] [address] Hypernatremia; Pre-op testing Discharge Disposition: Home or Self Care 05/20/2014 Orders Only [facility] [address] [place] [address] Lay Minor MD Hypernatremia (Primary Dx); Pre-op testing 05/20/2014 11:00 AM EST Office Visit [facility] [address] [facility] [place] [address] Dustin Mcintyre MD Bronchitis (Primary Dx); COPD exacerbation (HCC); Asthma exacerbation, moderate persistent; Chest wall pain; Vomiting; Hypernatremia 05/19/2014 Patient Outreach [address] [address] Nasrin Perry, behavioral health case manager (ED f/u call ) 05/18/2014 11:12 AM EST - 05/18/2014 12:37 PM EST Emergency [facility] [address] [place] [address] Mariaelena Rossi MD Acute bronchitis (Primary Dx); Acute sinusitis; COPD (chronic obstructive pulmonary disease) (HCC) Discharge Disposition: Home or Self Care 2014 7:57 PM EST - 2014 11:59 PM EST Hospital Encounter [facility] KELVIN PROCESSING [facility] [place] [address] Healthcare maintenance; Epilepsy (HCC) Discharge Disposition: Home or Self Care 2014 10:00 AM EST Office Visit [address] [place] [address] Dustin Mcintyre MD Epilepsy (HCC) (Primary Dx); Generalized anxiety disorder; Hyperlipidemia LDL goal < 100; Restless leg syndrome; GERD (gastroesophageal reflux disease); Healthcare maintenance; COPD (chronic obstructive pulmonary disease) ([facility]) 04/01/2014 Telephone [facility] [address] [place] [address] Dustin Mcintyre MD Results 03/23/2014 11:00 AM EST Office Visit [facility] [address] [place] [address] Wheezing; SOB (shortness of breath) Discharge Disposition: Home or Self Care 03/18/2014 10:45 AM EST Office Visit [facility] [address] [place] [address] Dustin Mcintyre MD Wheezing (Primary Dx); SOB (shortness of breath) 03/17/2014 Telephone [facility] [address] [place] [address] Nelda Torres CMA Medication Management (protonix bid needs a PA) 03/14/2014 Telephone [facility] [address] [place] [address] Dustin Mcintyre MD Medication Refill 03/08/2014 Telephone [facility] [address] [place] [address] Dustin Mcintyre MD Other 03/08/2014 11:20 AM EST - 03/08/2014 11:59 PM EST Hospital Encounter [facility] [address] [place] [address] Allergic rhinitis, cause unspecified (Primary Dx); Epilepsy ([facility]); Hearing loss in left ear; GERD (gastroesophageal reflux disease); JB (generalized anxiety disorder); FHx: prostate cancer; FHx: lung cancer; Nicotine dependence; Restless leg syndrome Discharge Disposition: Home or Self Care 03/08/2014 10:45 AM EST Office Visit [facility] [address] [place] [address] Dustin Mcintyre MD Hyperlipidemia LDL goal < 100 (Primary Dx); GERD (gastroesophageal reflux disease); Asthma, unspecified asthma severity, uncomplicated; Epilepsy (HCC); Generalized anxiety disorder; Restless leg syndrome 02/12/2014 Refill [facility] [address] [facility] [place] [address] Dustin Mcintyre MD Medication Refill 02/04/2014 8:00 AM EDT - 02/04/2014 9:52 AM EDT Surgery [facility] [address] [place] [address] Los Gordon MD FUNCTIONAL ENDOSCOPIC SINUS SURGERY/SINOSCOPY 02/04/2014 6:27 AM EDT - 02/04/2014 11:53 AM EDT Hospital Encounter [facility] SAME DAY SURGERY [address] [place] [address] Los Gordon MD Discharge Disposition: Home or Self Care 02/02/2014 11:00 AM EDT - 02/02/2014 11:59 PM EDT Hospital Encounter [facility] PRE-ADMIT TESTING [address] [place] [address] Pat, Clarice Discharge Disposition: Home or Self Care 01/24/2014 11:29 AM EDT - 01/24/2014 11:59 PM EDT Hospital Encounter [facility] [address] [place] [address] Esophageal reflux (Primary Dx); Dyspepsia and other specified disorders of function of stomach; Dysphagia, unspecified(787.20) Discharge Disposition: Home or Self Care 11/19/2013 10:30 AM EDT Office Visit [facility] [address] [facility] [place] [address] Dustin Mcintyre MD Laceration of wrist, left, subsequent encounter (Primary Dx) 11/13/2013 Refill [facility] [address] [facility] [place] [address] Marcela Ding MD Medication Refill 11/12/2013 6:42 PM EDT - 11/12/2013 7:45 PM EDT Emergency [facility] [address] [facility] [place] [address] Jerson Go MD Wrist laceration, left, initial encounter (Primary Dx) Discharge Disposition: Home or Self Care 11/03/[address] [place] [address] Chyna Mcgraw MA Referral (ORTHO) 11/01/2013 Orders Only [address] [place] [address] Marcela Ding MD Knee pain, right (Primary Dx) 11/01/2013 8:55 AM EDT - 11/01/2013 11:59 PM EDT Hospital Encounter [facility] [address] [place] [address] Dustin Mcintyre MD Right knee pain; Recurrent right knee instability Discharge Disposition: Home or Self Care 10/29/[address] [place] [address] Dustin Mcintyre MD Other 10/28/2013 Telephone [address] [place] [address] Dustin Mcintyre MD Referral 10/25/2013 4:43 PM EDT - 10/25/2013 11:59 PM EDT Hospital Encounter EDG LAB [facility] [address] [place] [id number] Hyperlipidemia LDL goal < 100 (Primary Dx); Epilepsy (HCC); Screening PSA (prostate specific antigen); Family history of prostate cancer; FHx: prostate cancer; Other nonspecific abnormal serum enzyme levels Discharge Disposition: Home or Self Care 10/25/2013 Telephone [address] [place] [address] Nelda Torres CMA Medication Management (Nexium bid dosing needs a PA) 10/25/2013 10:30 AM EDT Office Visit [address] [place] [address] Dustin Mcintyre MD Epilepsy ([facility]) (Primary Dx); Asthma, unspecified asthma severity, uncomplicated; Generalized anxiety disorder; JB (generalized anxiety disorder); GERD (gastroesophageal reflux disease); Family history of prostate cancer; Hyperlipidemia LDL goal < 100; FHx: prostate cancer; Hearing loss in left ear; Restless leg syndrome; Right knee pain; Recurrent right knee instability; Screening PSA (prostate specific antigen) 10/18/2013 Refill [facility] [address] [place] [address] Germán Bradley MD Medication Refill 10/13/2013 10:00 AM EDT Office [place] [facility] [place] [facility] [address] [place] [address] Tu Rivera MD Epilepsy ([facility]) (Primary Dx); Hearing loss in left ear; Nicotine dependence; Restless leg syndrome 09/10/2013 Refill [facility] [address] [place] [address] Germán Bradley MD Medication Refill 08/30/2013 Refill [facility] [address] [place] [address] Nelda Torres [facility] Medication Refill 08/26/2013 Telephone [facility] [address] [place] [address] Nelda Torres [facility] Referral 08/26/2013 Refill [facility] [address] [place] [address] Germán Bradley MD Medication Refill 08/26/2013 11:20 AM EDT - 08/26/2013 11:59 PM EDT Hospital Encounter [facility] Physical Therapy [facility] [address] [place] [address] Yvrose Palma, PT Discharge Disposition: Home or Self Care 08/17/2013 1:17 PM EDT - 08/17/2013 11:59 PM EDT Hospital Encounter [facility] Physical Therapy [facility] [address] [place] [address] Yvrose Palma, PT Discharge Disposition: Home or Self Care 08/16/2013 Refill [facility] [address] [place] [address] Germán Bradley MD Medication Refill 08/16/2013 Refill [facility] [address] [place] [address] Dustin Mcintyre MD Medication Refill 08/12/2013 Refill [facility] [address] [place] [address] Marcela Ding MD Medication Refill 08/12/2013 Refill SEP [address] [place] [address] Germán Bradley MD Medication Refill 08/12/2013 Refill [facility] [address] [place] [address] Dustin Mcintyre MD Medication Refill 07/27/2013 Telephone SEP [address] [place] [address] Nelda Torres, NIESHA Medication Refill 07/23/2013 8:30 AM EDT - 07/23/2013 11:59 PM EDT Hospital Encounter [place] [id number] [facility] [place] [address] Los Gordon MD Sensorineural hearing loss, asymmetrical; Abnormal auditory perception, unspecified Discharge Disposition: Home or Self Care 07/07/2013 Refill [facility] [address] [place] [address] Nelda Torres, PEDIATRIC SPEECH LANGUAGE PATHOLOGIST Medication Refill 06/29/2013 2:00 PM EDT - 06/29/2013 11:59 PM EDT Hospital Encounter [facility] [address] [facility] [place] [address] Mag Becerra [facility] Discharge Disposition: Home or Self Care 06/25/2013 Refill [facility] [address] [place] [address] Dustin Mcintyre MD Medication Refill 06/01/2013 Telephone [facility] [address] [place] [address] Germán Bradley MD Labs Only 05/31/2013 4:54 PM EST - 05/31/2013 11:59 PM EST Hospital Encounter EDG LAB [facility] [place] [address] Well adult exam; Epilepsy (HCC) Discharge Disposition: Home or Self Care 05/31/2013 10:00 AM EST - 05/31/2013 4:53 PM EST Hospital Encounter [facility] [address] [place] [address] COPD (chronic obstructive pulmonary disease) (HCC); FHx: lung cancer; Cough Discharge Disposition: Home or Self Care 05/31/2013 9:15 AM EST Office Visit [facility] [address] [place] [address] Germán Bradley MD Well adult exam (Primary Dx); COPD (chronic obstructive pulmonary disease) (HCC); Epilepsy (HCC); GERD (gastroesophageal reflux disease); JB (generalized anxiety disorder); Atypical moles; FHx: prostate cancer; FHx: lung cancer; Cough; Tobacco abuse 05/26/2013 Telephone [facility] [address] [place] [address] Dustin Mcintyre MD Epistaxis 05/24/2013 Refill [facility] [address] [place] [address] Germán Bradley MD Medication Refill 05/21/2013 Refill [facility] [address] [address] Dustin Mcintyre MD Medication Refill 05/21/2013 Refill [facility] [address] [place] [address] Germán Bradley MD Medication Refill 05/03/2013 Telephone [facility] [address] [place] [address] TorresNelda jackson [facility] Medication Refill 04/29/2013 10:15 AM EST Office Visit [facility] [address] [place] [address] Germán Bradley MD JB (generalized anxiety disorder) (Primary Dx); Back strain 04/15/2013 Refill [facility] [address] [place] [address] Marcela Ding MD Medication Refill 04/15/2013 Refill [facility] [address] [place] [address] Germán Bradley MD Medication Refill 03/24/[address] [place] [address] Veronica Freed MA Anxiety 03/16/[address] [place] [address] Chyna Mcgraw MA Referral (ORTHO) 03/15/2013 1:00 PM EST Office Visit [facility] [address] [place] [address] Dustin Mcintyre MD Arthralgia of shoulder region, right (Primary Dx); Arthritis of elbow, right; GERD (gastroesophageal reflux disease); RLS (restless legs syndrome); Epilepsy (HCC); Bipolar affective disorder (HCC); Generalized anxiety disorder; Asthma 03/14/2013 Refill [facility] [address] [place] [address] Germán Bradley MD Medication Refill 03/05/2013 Telephone [facility]P [place] [address] [place] [address] Dustin Mcintyre MD Medication Change 03/02/2013 2:15 PM EST Office Visit [facility] [place] [address] [place] [address] Dustin Mcintyre MD Shoulder pain (Primary Dx) 03/02/2013 1:27 PM EST - 03/02/2013 11:59 PM EST Hospital Encounter [place] [address] [place] [address] Kathy Wasserman, PT Discharge Disposition: Home or Self Care 03/01/2013 Refill [facility] [address] [place] [address] Germán Bradley MD Medication Refill 03/01/2013 Refill [facility] [address] [place] [address] Dustin Mcintyre MD Medication Refill 03/01/2013 Refill [facility] [address] [place] [address] Marcela Dign MD Medication Refill 02/27/2013 Telephone [facility] [address] [place] [address] Germán Bradley MD Other 02/26/2013 10:07 AM EST - 02/26/2013 11:59 PM EST Hospital Encounter [address] [place] [address] Kathy Wasserman, PT Discharge Disposition: Home or Self Care 02/18/2013 12:51 PM EST - 02/18/2013 11:59 PM EST Hospital Encounter [address] [place] [address] Kathy Wasserman, PT Discharge Disposition: Home or Self Care 02/12/2013 Refill [facility] [address] [place] [address] Dustin Mcintyre MD Medication Refill 02/10/2013 9:06 AM EDT - 02/10/2013 11:59 PM EDT Hospital Encounter [facility] Physical [address] [place] [address] Kathy Wasserman, PT Discharge Disposition: Home or Self Care 02/05/2013 12:26 PM EDT - 02/05/2013 11:59 PM EDT Hospital Encounter [address] [place] [place] [address] Kathy Wasserman, PT Discharge Disposition: Home or Self Care 02/01/2013 Refill SEP [address] [address] Marcela Ding MD Medication Refill 01/29/2013 Telephone [facility] [address] [place] [address] Germán Bradley MD Medication Refill 01/18/2013 8:30 AM EDT - 01/18/2013 9:30 AM EDT Surgery [facility] [address] [place] [address] Crow Love MD SHOULDER ARTHROSCOPY LABRAL/BANKART/ BICEP TENODESIS (COVERS SUPERIOR LABRAL ANTERIOR POSTERIOR REPAIR/SLAP) 01/18/2013 5:21 AM EDT - 01/18/2013 12:50 PM EDT Hospital Encounter [facility] SAME DAY SURGERY [address] [place] [address] Crow Love MD Discharge Disposition: Home or Self Care 01/14/2013 Telephone [facility] [address] [place] [address] Germán Bradley MD Medication Reaction 01/08/2013 2:00 PM EDT Office Visit [facility] [address] [place] [place] [address] Germán Bradley MD Infected inclusion cyst (Primary Dx); RLS (restless legs syndrome) 12/25/2012 12:38 PM EDT - 12/25/2012 11:59 PM EDT Hospital Encounter [facility] MRI [address] [place] [address] Germán Bradley MD Rotator cuff syndrome of left shoulder Discharge Disposition: Home or Self Care 12/20/2012 9:52 AM EDT - 12/20/2012 11:16 AM EDT Emergency [facility] [place] [address] Pino Maxwell MD Foot sprain (Primary Dx) Discharge Disposition: Home or Self Care 12/16/2012 1:45 PM EDT Office Visit [facility] [address] [facility] [place] [address] Germán Bradley MD Rotator cuff syndrome of left shoulder (Primary Dx); Need for influenza vaccination 12/15/2012 Telephone [facility] [address] [facility] [place] [address] Germán Bradley MD Referral 12/11/2012 Refill [facility] [address] [place] [address] Marcela Ding MD Medication Refill 12/11/2012 Refill [facility] [address] [facility] [place] [address] Germán Bradley MD Medication Refill 12/02/2012 11:17 AM EDT - 12/02/2012 11:59 PM EDT Hospital Encounter [facility] Physical Therapy [facility] [address] [place] [address] Chyna Mathis, PT Discharge Disposition: Home or Self Care 12/02/2012 10:00 AM EDT Office Visit [facility] [address] [place] [address] Germán Bradley MD Seborrhea (Primary Dx); Cervical lymphadenitis 11/19/2012 Refill [facility] [address] [place] [address] Germán Bradley MD Medication Refill 11/18/2012 10:41 AM EDT - 11/18/2012 11:59 PM EDT Hospital Encounter [facility] Physical Therapy [facility] [address] [place] [address] Shanice Ybarra PT Rotator cuff syndrome (Primary Dx) Discharge Disposition: Home or Self Care 11/09/2012 12:11 PM EDT - 11/09/2012 11:59 PM EDT Hospital Encounter [facility] X[facility] [address] [place] [address] Scoliosis; Back pain Discharge Disposition: Home or Self Care 11/09/2012 11:30 AM EDT Office Visit [facility] [address] [place] [address] Germán Bradley MD Rotator cuff syndrome Bilateral (Primary Dx) 11/05/2012 Telephone [facility] [address] [place] [address] Germán Bradley MD Back Pain 11/03/2012 Telephone [facility] [address] [place] [address] Nelda Torres CMA Back Pain 11/02/2012 5:12 PM EDT - 11/02/2012 11:59 PM EDT Hospital Encounter [facility]G LAB [facility] PROC[facility] [place] [address] Epilepsy (HCC) Discharge Disposition: Home or Self Care 11/02/2012 9:00 AM EDT Office Visit [facility] [address] [place] [address] Germán Bradley MD LBP (low back pain) (Primary Dx); Neck pain; Shoulder pain; JB (generalized anxiety disorder); Epilepsy (HCC) 10/31/2012 Refill [facility] [address] [place] [address] Nelda Torres CMA Medication Refill 10/26/2012 Refill [facility] [address] [place] [address] Germán Bradley MD Medication Refill 10/20/2012 Telephone [facility] [address] [place] [address] Dustin Mcintyre MD Other 10/14/2012 Telephone [facility] [address] [place] [address] Dustin Mcintyre MD Medication Refill; Medication Change 10/09/2012 5:34 PM EDT - 10/09/2012 11:59 PM EDT Hospital Encounter [place] [address] Epilepsy (HCC); Generalized anxiety disorder Discharge Disposition: Home or Self Care 10/09/2012 Telephone [facility] [address] [place] [address] Norma Greenfield MA Medication Change 10/09/2012 8:30 AM EDT Office Visit [facility] [address] [place] [address] Dustin Mcintyre MD Epilepsy (HCC) (Primary Dx); GERD (gastroesophageal reflux disease); Asthma; Bipolar affective disorder (HCC); Generalized anxiety disorder; ED (erectile dysfunction) 06/20/2012 Refill [facility] [address] [place] [address] Marcela Ding MD Medication Refill 05/01/2012 1:57 PM EST - 05/01/2012 11:59 PM EST Hospital Encounter [facility] Physical [facility] [address] [place] [address] Kathy Wasserman, PT Discharge Disposition: Home or Self Care 04/24/2012 1:47 PM EST - 04/24/2012 11:59 PM EST Hospital Encounter [facility] [address] [place] [address] Kathy Wasserman, PT Discharge Disposition: Home or Self Care 04/17/2012 1:01 PM EST - 04/17/2012 11:59 PM EST Hospital Encounter [facility] [address] [place] [address] Kathy Wasserman, PT Discharge Disposition: Home or Self Care 04/16/2012 Refill [facility] [address] [place] [address] Marcela Ding MD Medication Refill 04/05/2012 5:08 PM EST - 04/05/2012 6:19 PM [facility] Emergency [facility] [address] [place] [address] Roshan Sanchez MD Chronic knee pain (Primary Dx) Discharge Disposition: Home or Self Care 03/09/2012 Refill [facility] [address] [place] [address] Marcela Ding MD Medication Refill 03/03/2012 Refill [facility] [address] [place] [address] Marcela Ding MD Medication Refill 02/28/2012 8:15 PM EST - 02/28/2012 11:59 PM EST Hospital [place] [address] Epilepsy (HCC); Bipolar affective disorder (HCC); Abdominal pain Discharge Disposition: Home or Self Care 02/28/2012 10:20 AM EST Office Visit [facility] [address] [place] [address] Germán Bradley MD Epilepsy (HCC); Abdominal pain; Bipolar affective disorder (HCC); Asthma; Knee pain, left 01/17/2012 Telephone [facility] [address] [place] [address] Marcela Ding MD Medication Refill 12/21/2011 Refill [facility] [address] [place] [address] Germán Bradley MD Medication Refill 12/02/2011 7:06 PM EDT - 12/02/2011 11:59 PM EDT Hospital Encounter [place] [address] Bipolar affective disorder (HCC); Encounter for long-term (current) use of medications Discharge Disposition: Home or Self Care 12/02/2011 10:20 AM EDT Office Visit [place] [address] [place] [address] Dustin Mcintyre MD Knee pain, left (Primary Dx); Epilepsy (HCC); Bipolar affective disorder (HCC); Asthma; COPD (chronic obstructive pulmonary disease) (HCC); Anxiety; Encounter for long-term (current) use of medications 10/31/2011 [address] [place] [address] Germán Bradley MD Medication Refill 10/17/2011 Telephone [facility] [address] [place] [address] Marcela Ding MD Other 10/01/2011 3:24 PM EDT - 10/01/2011 4:31 PM EDT Emergency [facility] [address] [place] [address] Mariaelena Rossi MD Contusion of third finger, right; Left elbow contusion; Fall Discharge Disposition: Home or Self Care 09/14/2011 Refill [facility] [place] [address] [place] [address] Germán Bradley MD Medication Refill 08/23/2011 9:20 AM EDT Office Visit [place] [address] [place] [address] Germán Bradley MD Osteoarthritis (Primary Dx); Asthma; Epilepsy (HCC); Arthritis shoulder and knee; GERD (gastroesophageal reflux disease); Bipolar affective disorder (HCC); CTS (carpal tunnel syndrome) 08/07/2011 12:58 PM EDT - 08/07/2011 2:03 PM EDT Emergency [facility] [address] [place] [address] Alfie Perez MD Carpal tunnel syndrome of right wrist; Rotator cuff injury Discharge Disposition: Home or Self Care 07/10/2011 Telephone [facility] [address] [place] [address] Germán Bradley MD Other 07/02/2011 Telephone [facility] [address] [place] [address] Nelda Torres CMA Other (PA for celexa) 06/28/2011 9:51 AM EDT - 06/28/2011 11:59 PM EDT Hospital Encounter [facility] [address] [place] [address] Germán Bradley MD TMJ (dislocation of temporomandibular joint); Jaw pain; Dental decay Discharge Disposition: Home or Self Care 06/28/2011 9:20 AM EDT Office Visit [facility] [address] [place] [address] Germán Bradley MD Bipolar affective disorder (HCC); Anxiety; TMJ (dislocation of temporomandibular joint); Jaw pain; Dental decay 06/11/2011 Telephone [facility] [address] [place] [address] Marcela Ding MD Medication Refill 06/03/2011 8:09 PM EST - 06/03/2011 11:59 PM EST Hospital Encounter [facility] LAB [facility] PROC[facility] [place] [address] Bipolar affective disorder (HCC); Epilepsy (HCC) Discharge Disposition: Home or Self Care 06/03/2011 1:00 PM EST Office Visit [facility] [address] [place] [address] Germán Bradley MD Bipolar affective disorder (HCC); Asthma; Epilepsy (HCC) 05/18/2011 Refill [facility] [address] [place] [address] Germán Bradley MD Medication Refill 05/03/2011 Telephone [facility] [place] [address] [place] [address] Nelda Torres, NIESHA Other 05/03/2011 10:50 AM EST Office Visit [facility] [address] [place] [address] Germán Bradley MD Asthma (Primary Dx); Side pain; Abdominal wall pain; Bipolar affective disorder (HCC); Epilepsy (HCC) 04/17/2011 Refill [facility] [place] [address] [place] [address] Germán Bradley MD Medication Refill 03/18/2011 Telephone [place] [address] [place] [address] Cleopatra Duran Other 02/18/2011 2:20 PM EST - 02/18/2011 11:59 PM EST Hospital Encounter [facility] Physical [place] [address] [place] [address] Chyna Mathis, PT Discharge Disposition: Home or Self Care 02/11/2011 2:30 PM EDT - 02/11/2011 11:59 PM EDT Hospital Encounter [facility] Physical [place] [address] [place] [address] Chyna Mathis, PT Discharge Disposition: Home or Self Care 02/04/2011 2:24 PM EDT - 02/04/2011 11:59 PM EDT Hospital Encounter [facility] Physical Therapy [place] [address] [place] [address] Chyna Mathis, [place] Discharge Disposition: Home or Self Care 01/11/2011 Telephone [facility] [address] [address] Marcela Ding MD Other 12/28/[address] [address] Lucy Redman Rectal Bleeding 12/19/2010 2:51 PM EDT - 12/19/2010 11:59 PM EDT Hospital Encounter [facility] PROC[facility]ING [facility] [place] [address] Elevated glucose Discharge Disposition: Home or Self Care 12/19/2010 10:30 AM EDT Office Visit [address] [address] Germán Bradley MD Bipolar affective disorder (HCC); Epilepsy (HCC); Asthma; AR (allergic rhinitis); GERD (gastroesophageal reflux disease); Arthritis shoulder and knee; Elevated glucose 12/14/[address] [address] Lucy Redman Medication Refill 12/14/[address] [address] Germán Bradley MD Medication Refill 12/12/2010 1:22 PM EDT - 12/12/2010 2:55 PM EDT Emergency [facility] [address] [place] [address] Ty Griffiths, Fibula fracture Discharge Disposition: Home or Self Care 12/08/[address] [address] Inge Quinn, ARMOND Results 11/21/2010 8:29 PM EDT - 11/21/2010 11:59 PM EDT Hospital Encounter EDG LAB KELVIN PROCESS[place] [address] Lipid screening; Epilepsy (HCC); Encounter for long-term (current) use of medications Discharge Disposition: Home or Self Care 11/21/2010 10:30 AM EDT Clinical Support [address] [place] [address] Oralia Cruz Sabine Bipolar affective disorder (HCC); Epilepsy (HCC); Lipid screening; Encounter for long-term (current) use of medications 11/09/[address] [place] [address] Germán Bradley MD Medication Refill 07/31/2010 2:00 PM EDT Office Visit [address] [place] [address] Germán Bradley MD Asthma; Bronchitis; Rotator cuff syndrome 07/30/[address] [place] [address] Lucy Redman Marquis Other 05/02/2010 11:30 AM EST Office Visit [address] [place] [address] Germán Bradley MD Epilepsy (HCC); Bipolar affective disorder (HCC); Asthma; COPD (chronic obstructive pulmonary disease) ([facility]); GERD (gastroesophageal reflux disease); Osteoarthritis 04/30/2010 10:08 AM EST - 04/30/2010 11:59 PM EST Hospital Encounter EDG LAB KELVIN PROCESSING [place] [address] Marcela Ding MD Encounter for long-term (current) use of other medications; Epilep NOS w/o intr epil; Bipolar disorder NOS Discharge Disposition: Home or Self Care 04/30/2010 9:50 AM EST Clinical Support [address] [place] [address] Nelly Owusu RMA Epilepsy (HCC); Bipolar affective disorder ([facility]) [address] [place] [address] AnthonyOralia A Letter for School/Work ([employer]) 04/13/2010 Refill SEP [address] [place] [address] Germán Bradley MD Medication Refill 03/17/2010 Refill SEP [address] [place] [address] Germán Bradley MD Medication Refill 02/12/2010 Refill SEP [address] [place] [address] Germán Bradley MD Medication Refill 01/16/2010 11:10 AM EDT Office Visit [address] [place] [address] Germán Bradley MD COPD (chronic obstructive pulmonary disease) ([facility]); Osteoarthritis of knee 12/21/2009 Refill SEP [address] [place] [address] Marcela Ding MD Medication Refill 12/07/[address] [place] [address] Dustin Mcintyre MD Medication Refill 11/07/2009 7:59 PM EDT - 11/07/2009 11:59 PM EDT Hospital Encounter HST SUWT EDG Germán Bradley MD 11/07/2009 3:20 PM EDT Office Visit [address] [place] [address] Germán Bradley MD PUD (peptic ulcer disease) (Primary Dx); Bipolar affective disorder ([facility]); Asthma; AR (allergic rhinitis) 11/04/2009 10:43 PM EDT - 11/05/2009 12:41 AM EDT Emergency HST GES GRT Ty Griffiths, DO 10/12/2009 12:01 AM EDT - 10/26/2009 1:28 PM EDT Hospital Encounter HST PT Germán Odom MD 10/25/2009 9:30 AM EDT Office Visit SEP [facility] [address] [place] [address] Germán Bradley MD AR (allergic rhinitis); GERD (gastroesophageal reflux disease); Rotator cuff syndrome; Bipolar affective disorder (HCC); Asthma; Epilepsy (HCC) 09/12/2009 12:01 AM EDT - 10/11/2009 11:59 PM EDT Hospital Encounter HST PT Marcela Villanueva MD Burke, Brennan C, MD 09/28/2009 Telephone SEP [facility] [address] [place] [address] Nelly Owusu RMA Medication Problem 09/27/2009 Telephone SEP [facility] [address] [place] [address] Veronica Freed MA Other 09/27/2009 1:20 PM EDT Office Visit [facility] [address] [place] [address] Germán Bradley MD Rotator cuff syndrome; AR (allergic rhinitis); GERD (gastroesophageal reflux disease) 09/14/2009 2:06 AM EDT - 09/14/2009 11:59 PM EDT Emergency HST GES GRT Ty Blake, DO 08/24/2009 2:55 PM EDT - 09/11/2009 11:59 PM EDT Hospital Encounter HST PT Marcela Villanueva MD 09/05/2009 Telephone SEP [facility] [address] [place] [address] Germán Bradley MD Results 09/05/2009 Telephone SEP [facility] [address] [place] [address] Dustin Mcintyre MD Results 09/01/2009 12:01 AM EDT - 09/01/2009 11:59 PM EDT Hospital Encounter HST RADIOLOGY GRT Marcela Ding MD 08/26/2009 Telephone SEP [facility] [address] [place] [address] Germán Bradley MD Results 08/24/2009 3:04 PM EDT - 08/24/2009 11:59 PM EDT Hospital Encounter HST RADIOLOGY GRT Marcela Ding MD 08/24/2009 2:30 PM EDT Office Visit [facility] [address] [place] [address] Marcela Ding MD Shoulder pain (Primary Dx) 08/15/2009 Refill SEP [facility] [address] [place] [address] TorresNelda [facility] [address] [address] Medication Refill 07/25/2009 5:37 PM EDT - 07/25/2009 11:59 PM EDT Hospital Encounter HST SUWT EDG Dustin Mcintyre MD 07/25/2009 3:00 PM EDT Office Visit [facility] [address] [place] [address] Germán Bradley MD Rotator cuff syndrome; Epilepsy (HCC); Encounter for long-term (current) use of other medications 06/26/2009 8:46 AM EDT - 06/26/2009 11:59 PM EDT Hospital Encounter HST RADIOLOGY GRT Wang Ospina 06/15/2009 Telephone SEP [facility] [address] [place] [address] Germán Bradley MD Other 06/15/2009 2:00 PM EST Office Visit [facility] [address] [place] [address] Germán Bradley MD Shoulder pain; Bipolar affective disorder (HCC) 06/06/2009 Telephone SEP [facility] [address] [place] [address] Nelda Torres, PEDIATRIC SPEECH LANGUAGE PATHOLOGIST Seizures 05/30/2009 5:31 PM EST - 05/30/2009 11:59 PM EST Hospital Encounter HST EPIC CON UNK EDG Dustin Mcintyre MD 04/20/2009 Abstract SEP [facility] [address] 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 Handler Epilepsy (HCC); Bipolar affective disorder (HCC); Depression, major (HCC); Asthma; COPD (chronic obstructive pulmonary disease) ([facility]); Hearing loss in left ear; GERD (gastroesophageal [...] EDT Hospital Encounter HST RADIOLOGY GRT Kasi Lma MD 01/31/1999 10:54 AM EDT - 01/31/1999 [...] Hospital Encounter HST EPIC CON UNK EDG [facility] 05/26/1997 6:49 PM EST - 05/26/1997 11:59 PM EST Emergency HST MAJOR ER EDG Tunde Ty Monroy, 12/26/1996 7:54 PM EDT - 12/26/1996 11:59 PM EDT Hospital Encounter HST EPIC CON UNK COV [facility] 10/18/1996 5:34 PM EDT - 10/18/1996 11:59 PM EDT Emergency HST EPIC CON UNK EDG Augustine Baldwin MD 10/11/1996 10:10 AM EDT - 10/11/1996 12:10 PM EDT Hospital Encounter HST SAS Jaime Grover MD 03/13/1996 6:17 PM EST - 03/13/1996 11:59 PM EST Hospital Encounter HST EPIC CON UNK COV [facility] 01/21/1996 7:05 PM EDT - 01/21/1996 11:59 PM EDT Hospital Encounter HST EPIC CON UNK COV [facility] 01/01/1996 8:11 PM EDT - 01/06/1996 2:05 PM EDT Hospital Encounter HST BH2 Rosa Clark MD 12/26/1995 8:21 AM EDT - 12/26/1995 11:59 PM EDT Hospital Encounter HST EPIC CON UNK COV [facility] 10/26/1995 9:59 PM EDT - 10/30/1995 1:44 PM EDT Hospital Encounter HST BH2 Wang Rosales MD Cohen, Raymond L 10/12/1995 7:54 PM EDT - 10/12/1995 11:59 PM EDT Hospital Encounter HST EPIC CON UNK COV [facility] 10/04/1995 9:50 PM EDT - 10/07/1995 12:05 [...] 9 Active fluticasone (FLONASE) 50 mcg/actuation Nasl [place], SuspensionIndicati ons:Chronic seasonal allergic rhinitis due to [...] Mother 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 Smoking Status as of 02/04/2025 Tobacco Use Types Packs/Day Years Used Date [...] on file Medical Devices Implanted Type Area Manager Implementation Device Identifier Shelf Expiration Date Model / Serial / Lot Mercer Lupine Br W/Dual Suture Orthocord - [id number] Implanted:Qty : 1 on 01/18/2013 by Crow Love MD at [facility] Left: Shoulder J&J:ETHICON:MITE K PRDT [id number] 06/12/2015 [id number] / / [id number] Mercer Lupine Br W/Dual Suture Orthocord - [id number] Implanted:Qty : 1 on 01/18/2013 by Crow Love MD at [facility] Left: Shoulder J&J:ETHICON:MITE K PRDT [id number] 06/11/2014 [id number] / / [id number] Mercer Advance Healix 5.5 Br - [id number] Implanted:Qty : 1 on 06/20/2015 by Crow Love MD at [facility] Right: Shoulder J&J:ETHICON:MITE K PRDT 05/14/2017 [id number] / / [id number] Procedures Procedure Name Priority Date/Time Associated Diagnosis [...] meniscus of knee, current Special Needs FAX CPT;70548 [id number] POCT EKG Routine 06/08/2014 10:16 AM EST [...] AM EDT Chronic maxillary sinusitis Special Needs [facility] CPT; 05198/57885 HEPATIC FUNCTION PANEL Routine 4 11:31 AM [...] EDT Rotator cuff (capsule) sprain Special Needs CPT;72020 37189 [id number] MRI SHOULDER LEFT WO CONTRAST Routine 12/25/2012 [...] 946 pg/mL 06/01/2018 4:11 PM EST PREFERRED [facility] Folate >16.00(H) 4.50 - 16.00 ng/mL 06/01/2018 4:11 PM EST PREFERRED [facility] Blood VENOUS BLOOD / Unknown Venipuncture / Unknown 06/01/2018 10:14 AM EST 06/01/2018 10:14 AM EST Narrative PREFERRED [facility] - 06/01/2018 4:11 PM EST Ingestion of roxanna doses of biotin (>5 mg/day) taken within 8 hours of drawing blood sample can interfere with this immunoassay test. us Dustin Mcintyre MD CHEMISTRY ORDERABLES F inal Result PREFERRED [facility] [address] [facility] , [place] [address] * TSH REFLEX (06/01/2018 10:14 AM EST) TSH Reflex 1.640 0.270 - 4.200 mcIU/mL 06/01/2018 3:53 PM EST PREFERRED [facility] Blood VENOUS BLOOD / Unknown Venipuncture / Unknown 06/01/2018 10:14 AM EST 06/01/2018 10:14 AM EST Narrative [facility] - 06/01/2018 3:53 PM EST Ingestion of roxanna doses of biotin (>5 mg/day) taken within 8 hours of drawing blood sample can interfere with this immunoassay test. Dustin Mcintyre MD CHEMISTRY ORDERABLES F inal Result Performing Organization Address [facility] Co de Phone Number [facility] [employer] [address] [place] [address] , [place] [address] * (ABNORMAL) ACUTE HEPATITIS PANEL (06/01/2018 10:14 AM EST) Only the most recent of2 resultswithin the time period is included. Pathologist [facility] Hep Bs Ag Non-Reacti ve Non-Reacti ve 06/02/2018 11:57 AM EST [facility] Hep B Core IgM Non-Reacti ve Non-Reacti ve 06/02/2018 11:57 AM EST [facility] Hep A IgM Non-Reacti ve Non-Reacti ve 06/02/2018 11:57 AM EST [facility] Hep C Ab Reactive(A ) Non-Reacti ve 06/02/2018 11:57 AM EST [facility] [employer] Comment:Reactive. Antibodies to HCV detected. >97% of specimens with high signal cutoff confirm as reactive. HCV QUANT W/RFLX TO GENOTYPE -REF LAB Blood VENOUS BLOOD / Unknown Venipuncture / Unknown 06/01/2018 10:14 AM EST 06/01/2018 10:14 AM EST Dustin Mcintyre MD CHEMISTRY ORDERABLES F inal Result Performing Organization Address [facility] Co de Phone Number [facility] [employer] [address] , [place] [address] * (ABNORMAL) CBC WITH DIFF (06/01/2018 10:14 AM EST) Only the most recent of16 resultswithin the time period is included. Pathologist [facility] WBC 6.6 3.7 - 10.3 x10(3)/mcL 06/01/2018 [...] 3:19 PM EST [facility] [place] Percent 11.4 % 06/01/2018 3:19 PM EST [...] x10(3)/mcL 06/01/2018 3:19 PM EST [facility] Comment:Automated count of m etamyelocytes, myelocytes and promyelocytes. An absolute IG <0.1 is reported as 0.0. Lymph # 2.1 1.2 - 3.9 x10(3)/mcL 06/01/2018 3:19 PM EST [facility] [place] # 0.8 0.3 - 0.9 x10(3)/[facility] 06/01/2018 3:19 PM EST [facility] Eos# 0.3 0.0 - 0.5 x10(3)/[facility] 06/01/2018 3:19 PM EST [facility] Baso # 0.0 0.0 - 0.1 x10(3)/[facility] 06/01/2018 3:19 PM EST [facility] Blood VENOUS BLOOD / Unknown Venipuncture / Unknown 06/01/2018 10:14 AM EST 06/01/2018 10:14 AM EST Dustin Mcintyre MD HEMATOLOGY ORDERABLES Final Result Performing Organization Address [facility] Co de Phone Number [facility] [address] , [place] [address] * (ABNORMAL) PHENYTOIN LEVEL TOTAL (06/01/2018 10:14 AM EST) Only the most recent of20 resultswithin the time period is included. Dilantin 9.0(L) 10.0 - 20.0 mcg/mL 06/01/2018 3:51 PM EST [facility] Blood VENOUS BLOOD / Unknown Venipuncture / Unknown 06/01/2018 10:14 AM EST 06/01/2018 10:14 AM EST Dustin Mcintyre MD CHEMISTRY ORDERABLES F inal Result Performing Organization Address [facility] Co de Phone Number [facility] [employer], [address] , [place] [address] * (ABNORMAL) COMPREHENSIVE METABOLIC PANEL [...] mL/min/1.7 3 m2 06/01/2018 3:53 PM EST [facility] GFR Non Afr Am 96 >=60 mL/min/1.7 3 m2 06/01/2018 3:53 PM EST [facility] Comment: This estimated GFR [...] CHEMISTRY ORDERABLES F inal Result [facility] [address] [facility], [place] [address] [facility] [address] [place] [address] * POCT URINALYSIS DIPSTICK (06/01/2018 9:40 AM EST) Only the most recent of4 resultswithin the time period is included. 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 Grav, UA 1.025 1.001 - 1.035 G/DL SEP OFFICE Blood, UA neg POS/NEG SEP OFFICE pH, UA 6.0 5.0 - 8 SEP OFFICE Protein, UA neg POS/NEG SEP OFFICE Urobilinogen, UA 1+ 0.2 - 1.0 MG/DL SEP OFFICE Leukocytes, UA neg POS/NEG SEP OFFICE Nitrite, UA neg POS/NEG SEP OFFICE UA Appear POC SEP OFFICE Lot Number [id number] SEP OFFICE Expiration Date 12/22/2019 SEP OFFICE [...] mg/dL 12/05/2017 3:59 PM EDT [facility] Comment: < 200 Desirable 200 - 239 Borderline High >= 240 High Triglyceride 316(H) <=150 mg/dL 12/05/2017 3:59 PM EDT [facility] Comment: < 150 Normal 150 - 199 Borderline High 200 - 499 High >= 500 Very High HDL 33(L) >=40 mg/dL 12/05/2017 3:59 PM EDT [facility] Comment: > 60 Optimal 40 - 60 Acceptable < 40 Low LDL Calculated 111(H) <=100 mg/dL 12/05/2017 3:59 PM EDT [facility] [employer] Non-HDL-C Calculated 174(H) <=129 mg/dL 12/05/2017 3:59 PM EDT [facility] Comment: <130 Desirable 130-159 Above Desirable 160-189 Borderline High 190-219 High >= 220 Very High Blood VENOUS BLOOD / Unknown Venipuncture / Unknown 12/05/2017 9:03 AM EDT 12/05/2017 9:03 AM EDT us Germán Bradley MD CHEMISTRY ORDERABLES Final Re sult [facility] [address] [facility] , [address] [place] [id number] * DRUGS OF ABUSE, SCREEN ONLY, URINE (06/30/2017 10:59 PM EDT) Only the most recent of2 resultswithin the time period is included. 6 AM (Heroin) Absent Absent 06/30/2017 11:29 PM EDT [facility] Amphetamines Absent Absent 06/30/2017 11:29 PM EDT [facility] Barbiturates Absent Absent 06/30/2017 11:29 PM EDT [facility] Benzodiazepines Absent Absent 8 11:29 PM EDT [facility] Buprenorphine Absent Absent 06/30/2017 11:29 PM EDT [facility] Cannabinoid Metabolite Absent Absent 06/30/2017 11:29 PM EDT [facility] Cocaine Metabolite Absent Absent 2017 11:29 PM EDT [facility] Methadone and Metabolite Absent Absent 06/30/2017 11:29 PM EDT [facility] Opiate Absent Absent 06/30/2017 11:29 PM EDT [facility] Oxycodone Lvl Absent Absent 06/30/2017 11:29 PM EDT [facility] Phencyclidine Absent Absent 06/30/2017 11:29 PM EDT [facility] Creatinine Ur >25.0 mg/dL 06/30/2017 11:29 PM EDT [facility] Comment: Greater than 20: Consistent with valid sample Greater than 2 but less than 20: Possible dilution Less than 2: Questionable valid sample Urine STRUCTURE OF URINARY TRACT PROPER / Unknown 06/30/2017 10:59 PM EDT 06/30/2017 11:03 PM EDT Narrative [facility] - 06/30/2017 11:29 PM EDT [...] ORDERABLES Final Resul t Performing Organization Address [facility] de Phone Number [facility] [address] [place] [address] * EXTRA GOLD SST (06/30/2017 10:18 PM EDT) Blood VENOUS BLOOD / Unknown Venipuncture / Unknown 06/30/2017 10:18 PM EDT 06/30/2017 10:27 PM EDT Robbie Queen MD CHEMISTRY ORDERABLES Final Resul t Performing Organization Address [facility] Phone Number [facility] [address] [place] [address] * EXTRA LAVENDER (06/30/2017 10:18 PM EDT) Blood VENOUS BLOOD / Unknown Venipuncture / Unknown 06/30/2017 10:18 PM EDT 06/30/2017 10:27 PM EDT Robbie Queen MD HEMATOLOGY ORDERABLES Final Resu lt Performing Organization Address [facility] de Phone Number [facility] [address] [place] [address] * EXTRA LIGHT BLUE (06/30/2017 10:18 PM EDT) Only the most recent of2 resultswithin the time period is included. Blood VENOUS BLOOD / Unknown Venipuncture / Unknown 06/30/2017 10:18 PM EDT 06/30/2017 10:27 PM EDT Robbie Queen MD HEMATOLOGY ORDERABLES Final Resu lt Performing Organization Address [facility] Phone Number [facility] [address] [place] [address] * (ABNORMAL) ALCOHOL MEDICAL (06/30/2017 10:18 PM EDT) Only the most recent of2 resultswithin the time period is included. Alcohol Medical 36(H) <=10 mg/dL 06/30/2017 10:39 PM EDT [facility] Blood VENOUS BLOOD / Unknown Venipuncture / Unknown 06/30/2017 10:18 PM EDT 06/30/2017 10:26 PM EDT us Robbie Queen MD CHEMISTRY ORDERABLES Final Resul t Performing Organization Address [facility] de Phone Number [facility] [address] [place] [address] * ACETAMINOPHEN LEVEL (06/30/2017 10:18 PM EDT) Only the most recent of2 resultswithin the time period is included. Acetaminophen Lvl <15.0 mcg/mL 018 11:16 PM EDT [facility] Blood VENOUS BLOOD / Unknown Venipuncture / Unknown 06/30/2017 10:18 PM EDT 06/30/2017 10:27 PM EDT Narrative [facility] - 06/30/2017 11:16 PM EDT Therapeutic: 10-30 mcg/ml Supratherapeutic: > 35 mcg/ml Toxic: > 150 mcg/ml (4h post ingestion) > 75 mcg/ml (8h post ingestion) > 40 mcg/ml (12h post ingestion) us oHlly Brannon APRN CHEMISTRY ORDERABLES Final R esult Performing Organization Address [facility] de Phone Number [facility] [address] [place] [address] * SALICYLATE LEVEL (06/30/2017 10:18 PM EDT) Only the most recent of2 resultswithin the time period is included. Salicylate <0.3 <=0.3 mg/dL 06/30/2017 11:16 PM EDT [facility] Blood VENOUS BLOOD / Unknown Venipuncture / Unknown 06/30/2017 10:18 PM EDT 06/30/2017 10:27 PM EDT us Holly Brannon FISH PEDDLER CHEMISTRY ORDERABLES Final R esult [facility] [address] [place] [address] * (ABNORMAL) BASIC METABOLIC PANEL (06/30/2017 10:18 PM EDT) Only the most recent of5 resultswithin the time period is included. Sodium 142 136 - 145 mmol/L 06/30/2017 11:16 PM EDT [facility] Potassium 4.1 3.5 - 5.0 mmol/L 06/30/2017 11:16 PM EDT [facility] Chloride 101 98 - 107 mmol/L 06/30/2017 11:16 PM EDT [facility] Total CO2 26 22 - 29 mmol/L 06/30/2017 11:16 PM EDT [facility] Anion Gap 15 7 - 16 mmol/L 06/30/2017 11:16 PM EDT [facility] Calcium 9.4 8.6 - 10.2 mg/dL 06/30/2017 11:16 PM EDT [facility] Glucose Lvl 115(H) 74 - 100 mg/dL 06/30/2017 11:16 PM EDT [facility] BUN 12 6 - 20 mg/dL 06/30/2017 11:16 PM EDT [facility] Creatinine 0.96 0.67 - 1.30 mg/dL 06/30/2017 11:16 PM EDT [facility] GFR Afr Am 110 mL/min/1.7 3 m2 06/30/2017 11:16 PM EDT [facility] GFR Non Afr Am 95 mL/min/1.7 3 m2 06/30/2017 11:16 PM EDT [facility] Comment: GFR Afr Am and [...] Brannon APRN CHEMISTRY ORDERABLES Final R esult [facility] [address] [place] [id number] * XR WRIST RIGHT PA LATERAL AND OBLIQUE (05/26/2017 9:46 PM EST) Anatomical Region Laterality Modality Wrist Radiographic Thao ging 05/26/2017 9:46 PM EST Impressions 05/26/2017 10:07 PM EST Negative exam. Narrative 05/26/2017 10:07 PM EST XR WRIST RIGHT PA LATERAL AND OBLIQUE, 05/26/2017 9:46 PM CLINICAL HISTORY: -[facility] COMPARISON: None. PROCEDURE COMMENTS: 4 routine views of the right wrist. FINDINGS: No fracture, dislocation or radio-opaque foreign body. Navicular fractures can be occult on initial radiographs. If there is snuff-box tenderness consider follow-up radiographs in 10 to 14 days. Procedure Note Mauro Rosas MD - 05/26/2017 XR WRIST RIGHT PA LATERAL AND OBLIQUE, 05/26/2017 9:46 PM CLINICAL HISTORY: -[facility] COMPARISON: None. PROCEDURE COMMENTS: 4 routine views of the right wrist. FINDINGS: No fracture, dislocation or radio-opaque foreign body.Navicular fractures can be occult on initial radiographs. If there is snuff-boxtenderness consider follow-up radiographs in 10 to 14 days. IMPRESSION: Negative exam. us Gómez D Levan FISH PEDDLER IMG DIAGNOSTIC IMAGING OR DERABLES Final Result [...] 9:45 PM CLINICAL HISTORY: -[facility] COMPARISON: None. PROCEDURE COMMENTS: 3 routine radiographs [...] 9:45 PM CLINICAL HISTORY: -[facility] COMPARISON: None. PROCEDURE COMMENTS: 3 routine radiographs [...] of fourth finger as described. Gómez Reis FISH PEDDLER IMG DIAGNOSTIC IMAGING OR DERABLES Final Result * EXTRA DORADO URINE CX (04/16/2017 1:05 AM EST) Urine URINE SPECIMEN COLLECTION, CLEAN CATCH / Unknown 04/16/2017 1:05 AM EST 04/16/2017 1:17 AM EST Jose Carlos Rasheed MD MICROBIOLOGY - GENERAL ORDERAB LES Final Result [facility] [address] [place] [address] * URINALYSIS (04/16/2017 1:05 AM EST) Only the most recent of3 resultswithin the time period is included. UA Color Yellow 04/16/2017 1:20 AM [facility] UA Appear Clear Clear 04/16/2017 1:20 AM EST [facility] UA Glucose Negative Negative mg/dL 04/16/2017 1:20 AM EST [facility] UA Ketones Negative Negative mg/dL 04/16/2017 1:20 AM EST [facility] UA Blood Negative Negative 04/16/2017 1:20 AM [facility] UA pH 6.0 5.0 - 8.0 pH 04/16/2017 1:20 AM [facility] UA Protein Negative Negative mg/dL 04/16/2017 1:20 AM [facility] UA Urobilinogen 0.2 <=1 E.U./dL 04/16/19 18 1:20 AM [facility] UA Nitrite Negative Negative 04/16/2017 1:20 AM [facility] UA Leuk Est Negative Negative 04/16/2017 1:20 AM [facility] UA Spec Grav 1.025 1.001 - 1.035 no units 04/16/2017 1:20 AM [facility] Comment: Reference range valid for random specimens only. Urine URINE SPECIMEN COLLECTION, CLEAN CATCH / Unknown 04/16/2017 1:05 AM EST 04/16/2017 1:17 AM EST Jose Carlos Rasheed MD URINE ORDERABLES Final Result [facility] [address] [place] [id number] * LDL, CALCULATED (01/07/2017 10:30 AM EDT) Only the most recent of4 resultswithin the time period is included. Pathologist [facility] [facility] LDL Calculated 51 <=100 mg/dL [facility] Comment: < 100 Optimal 100 - 129 Near or above optimal 130 - 159 Borderline High 160 - 189 High >= 190 Very High Blood specimen (specimen) 01/07/2017 10:30 AM EDT 01/07/2017 3:48 PM EDT Dustin Mcintyre MD CHEMISTRY ORDERABLES F inal Result Performing Organization Address [facility] Co de Phone Number [facility] [address] [place] [address] * (ABNORMAL) DIFFERENTIAL (01/07/2017 10:30 AM EDT) Only the most recent of11 resultswithin the time period is included. Neut Percent 48.5 % [facility] Lymph Percent 34.1 % [facility] Harlan Percent 9.2 % [facility] Eos Percent 6.9 % [facility] Baso Percent 1.3 % [facility] Neut# 3.9 1.8 - 7.7 x10(3)/mcL [facility] Lymph# 2.7 0.6 - 4.8 x10(3)/mcL [facility] Harlan# 0.7 0.0 - 1.3 x10(3)/[facility] LABORATORY Eos# 0.6(H) 0.0 - 0.5 x10(3)/[facility] LABORATORY Baso# 0.1 0.0 - 0.2 x10(3)/[facility] LABORATORY Blood specimen (specimen) 01/07/2017 10:30 AM EDT 01/07/2017 3:48 PM EDT Dustin Mcintyre MD HEMATOLOGY ORDERABLES Final Result Performing Organization Address [facility]/ZIP Co de Phone Number [facility] [address] [place] [address] * XR KNEE RIGHT AP LAT INT [...] AM EST) 05/06/2016 8:51 AM EST Impressions [facility] - 05/06/2016 8:51 AM EST [...] Germán Bradley MD PFT ORDERABLES Final Result [facility] [address] [place] [address] * POCT EKG (04/29/2016 2:23 PM EST) Only the most recent of4 resultswithin the time period is included. 04/29/2016 2:23 PM EST Impressions SEP OFFICE - 04/29/2016 2:23 PM EST nsr No ischemia Normal ekg Germán Bradley MD POINT OF CARE CARDIOLOGY Zayra l Result Performing Organization Address [facility]/ZIP Co de Phone Number SEP OFFICE * SYPHILIS SCREEN WITH REFLEX RPR QUANT (04/01/2016 4:37 PM EST) TREP(SYPHILIS) AB INDEX <0.10 <=1.09 Index Value [facility] Comment: <0.90 - Negative 0.90 to 1.00 - Equivocal Patients with equivocal results should be retested in 7-14 days. >=1.10 - Positive NOTE: All equivocal and positive results will be reflexed to Quantitative Non-Treponemal(RPR)test. Blood specimen (specimen) UPPER LIMB STRUCTURE / Unknown 04/01/2016 4:37 PM EST 04/01/2016 8:41 PM EST Germán Bradley MD CHEMISTRY ORDERABLES Final Re sult Performing Organization Address [facility]/[place] [address] * XR LUMBAR SPINE AP AND LATERAL [...] abnormality identified in the lumbar spine. Result [facility] Michelle Shirley MD [facility] DIAGNOSTIC IMAGING ORDERABLE S Final Result * [facility] LOWER EXTREMITY VENOUS LEFT (06/23/2015 6:16 [...] right commonfemoral vein. Wang Harmon MD Result [facility] Elina Hall MD G VASCULAR ORDERABLES Fin al Result * SCANNED RHYTHM STRIPS (06/22/2015 11:55 PM EST) Only the most recent of3 resultswithin the time period is included. Anatomical Region Laterality Modality Other 06/22/2015 11:5 5 PM EST Result [facility] Unknown Unknown IM ECG ORDERABLES Final Result * PERIPHERAL BLOCK (06/20/2015 7:47 AM EST) Narrative [facility] - 06/20/2015 7:47 AM EST [...] bill Result - Final Performing Organization Address [facility] [place] [address] * LDL DIRECT (04/20/2015 9:44 AM EST) Only the most recent of5 resultswithin the time period is included. LDL Direct 65 <=100 mg/dL [facility] Comment: < 100 Optimal 100 - 129 Near or above optimal 130 - 159 Borderline High 160 - 189 High >= 190 Very High Blood specimen (specimen) 04/20/2015 9:44 AM EST 04/20/2015 3:48 PM EST us Germán Bradley MD CHEMISTRY ORDERABLES Final Re sult Performing Organization Address [facility] Co de Phone Number [facility] [address] [place] [address] * MRI SHOULDER RIGHT WO CONTRAST (03/22/2015 [...] joint changeswithout undersurface spur. Dustin Mcintyre MD [facility] MRI ORDERABLES Fin al Result * CBC (11/04/2014 10:36 AM EDT) Only the most recent of4 resultswithin the time period is included. WBC 7.2 4.0 - 11.0 x10(3)/mcL [facility] RBC 4.86 4.30 - 5.81 x10(6)/mcL [facility] Hgb 16.1 13.5 - 17.1 gm/dL [facility] Hct 47.6 38.9 - 51.6 % [facility] MCV 97.9 82.5 - 99.8 fL [facility] MCH 33.1 27.0 - 34.3 pg [facility] MCHC 33.8 32.1 - 35.3 gm/dL [facility] RDW 13.6 11.5 - 15.0 % [facility] Platelet 211 144 - 423 x10(3)/mcL [facility] MPV 9.2 6.8 - 10.8 fL [facility] Blood specimen (specimen) UPPER LIMB STRUCTURE / Unknown 11/04/2014 10:36 AM EDT 11/04/2014 4:05 PM EDT us Dustin Mcintyre MD HEMATOLOGY ORDERABLES Final Result Performing Organization Address City/State/[facility] Co de Phone Number [facility] [address] [place] [address] * SCANNED PATHOLOGY REPORT (09/20/2014 5:07 PM [...] AM EST 03/08/2014 3:39 PM EST Narrative [facility] - 03/16/2014 8:03 AM EST [employer]-See attached Fax to [phone] us Los Gordon MD HEMATOLOGY ORDERABLES Edited Result - Final [facility] [address] [place] [address] * SCANNED PRE/POST PROCEDURES (02/08/2014 1:26 AM [...] Report Accession Number Collected Date/Time Received Date/Time [id number] 02/04/14 08:20 EDT 02/04/14 12:54 EDT Diagnosis 1) Right maxillary ethmoid sinus contents: - Acute and chronic sinusitis. - Negative for malignancy. 2) Left maxillary sinus biopsy: - Acute and chronic sinusitis. - Negative for malignancy. Lisset Saldana (Electronicall y signed by) Verified: 02/07/2014 [facility] Clinical Information Chronic maxillary [...] performed and the findings corroborate the diagnosis. [facility] 02/04/2014 8:20 AM EDT us Los Gordon MD PATHOLOGY ORDERABLES Final R esult [facility] [address] [place] [address] * FUNGUS CULTURE-OTHER (02/04/2014 8:00 AM EDT) Final No growth of fungus at 4 weeks [facility] Specimen from nose (specimen) NASAL STRUCTURE / Unknown 02/04/2014 8:00 AM EDT 02/04/2014 10:08 AM EDT Comment:LEFT MAX SINUS SWAB Narrative [facility] - 03/04/2014 4:01 PM EST Aerobic, anaerobic, fungus culture from left maxillary sinus Los Gordon MD MICROBIOLOGY - GENERAL ORDER MK Final Result Performing Organization Address City/[facility]/ZIP Co de Phone Number [facility] [address] [place] [address] * WOUND CULTURE (02/04/2014 8:00 AM EDT) GS No slide sent/smear made after culture inoculated Rare WBC's Rare RBC's Rare Gram positive cocci [facility] Final Moderate growth of Staphylococcus aureus Sparse growth of Coagulase negative staphylococci No further workup Moderate growth of beta hemolytic Streptococci suspect Streptococcus anginosus group No further workup [facility] Organism Staphylococcus aureus [facility] Specimen from nose (specimen) NASAL STRUCTURE / Unknown 02/04/2014 8:00 AM EDT 02/04/2014 10:08 AM EDT Comment:LEFT MAX SINUS SWAB Narrative [facility] - 02/07/2014 9:08 AM EDT [...] MICROBIOLOGY - GENERAL ORDER MK Final Result [facility] [address] [place] [address] * ANAEROBIC CULTURE (02/04/2014 8:00 AM EDT) Final No anaerobic growth at 5 days [facility] Specimen from nose (specimen) NASAL STRUCTURE / Unknown 02/04/2014 8:00 AM EDT 02/04/2014 10:08 AM EDT Comment:LEFT MAX SINUS SWAB Narrative [facility] - 02/10/2014 5:01 PM EDT Aerobic, anaerobic, fungus culture from left maxillary sinus Los Gordon MD MICROBIOLOGY - GENERAL ORDER MK Final Result Performing Organization Address [facility] Co de Phone Number [facility] [address] [place] [address] * HEPATIC FUNCTION PANEL (01/24/2014 11:31 AM EDT) Only the most recent of2 resultswithin the time period is included. Total Protein 6.8 6.4 - 8.3 gm/dL [facility] Albumin 4.2 3.5 - 5.2 gm/dL [facility] Bili Direct <0.2 0.0 - 0.3 mg/dL [facility] Bili Total 0.1 0.1 - 1.4 mg/dL [facility] AST 40 <=40 IU/L [facility] ALT 38 <=41 IU/L [facility] Alk Phos 106 40 - 129 IU/L [facility] Blood specimen (specimen) UPPER LIMB STRUCTURE / Unknown 01/24/2014 11:31 AM EDT 01/24/2014 2:38 PM EDT us Koffi Jay MD CHEMISTRY ORDERABLES Edited R esult - Final Performing Organization Address City/[facility] Co de Phone Number [facility] [address] [place] [address] * XR WRIST LEFT PA LATERAL AND [...] 10:12 AM EDT) Total PSA 0.66 ng/mL [facility] Comment: 2008 COUNTS INCLUDE 234 BEDS AT THE [facility] Best Practice Statement Guidelines-Age Adjusted Reference Intervals: Age Range Whites Americans Americans 40-49 years 0-2.5 ng/mL 0-2.0 ng/mL 0-2.0 ng/mL 50-59 years 0-3.5 ng/mL 0-4.0 ng/mL 0-3.0 ng/mL 60-69 years 0-4.5 ng/mL 0-4.5 ng/mL 0-4.0 ng/mL 70-79 years 0-6.5 ng/mL 0-5.5 ng/mL 0-5.0 ng/mL [facility] uses the [employer] Producer Total PSA assay, which is approved as [...] Mcintyre MD CHEMISTRY ORDERABLES F inal Result [facility] [address] [place] [address] * MRI BRAIN W WO CONTRAST (07/23/2013 [...] be called to his cell phone at [phone]. This call was not made by radiology. [...] results be called to his cell phone [phone]. This call was not made by radiology. Richards Germán Bradley MD [facility] DIAGNOSTIC IMAGING ORDERA BLES Final Result * [...] trauma. IMPRESSION: Negative exam. Mariaelena Rossi MD [facility] DIAGNOSTIC IMAGING ORDER MK Final Result * [...] evaluate orTMJ disc problems. Germán Bradley MD [facility] DIAGNOSTIC IMAGING ORDERA BLES Final Result * HEMOGLOBIN A1C (12/19/2010 11:00 AM EDT) Hgb A1c 5.3 <=7.0 % [facility] Comment: Initial Diagnostic Criteria < 5.7 % Normal 5.7 - 6.4 % At risk for diabetes mellitus >= 6.5 % Consistent with diabetes mellitus Diabetes monitoring Target Value (ADA recommended): < 7 % Blood specimen (specimen) UPPER LIMB STRUCTURE / Unknown 12/19/2010 11:00 AM EDT 12/19/2010 4:04 PM EDT us Germán Bradley MD CHEMISTRY ORDERABLES Final Re sult [facility] [address] [place] [address] * XR ANKLE RIGHT AP LATERAL AND [...] EDT) H pylori IgG 0.44 Index Value [facility] Comment: I.V. = Index Value [...] ORDERABLES Final R esult Performing Organization Address City/State/[facility] Co de Phone Number [facility] [address] [place] [address] * SCANNED EKG (11/06/2009 12:00 AM EDT) Anatomical Region Laterality Modality Other Narrative 11/06/2009 9:16 AM EDT Ordered by an unspecified provider. Transcriptions Unknown, Unknown - 11/06/2009 5:12 AM EDT Unknown Unknown IMG ECG ORDERABLES Final Result * TROPONIN-I (11/05/2009 12:01 AM EDT) Troponin-I 0.01 ng/mL [facility] Comment: Note: New reference ranges [...] Griffiths DO CHEMISTRY ORDERABLES Final Re sult [facility] [address] [place] [address] * XR CHEST PORTABLE GC (11/04/2009 11:28 [...] normal limits. IMPRESSION- Normal portable chest . Slurry Control Operator Helper- ALBERT CRAIG MD Reading Physician- ALBERT CRAIG [...] normal limits. IMPRESSION- Normal portable chest . Slurry Control Operator Helper- ALBERT CRAIG MD Reading Physician- ALBERT CRAIG MD Released Date Time- 11/04/09 2352 Ty Griffiths DO IMG [facility] STAR RAD HISTORICAL F inal Result * (ABNORMAL) PHENOBARBITAL LEVEL (11/04/2009 11:27 PM EDT) Phenobarbital Lvl <3.0(L) 15.0 - 40.0 mcg/mL [facility] Blood specimen (specimen) 11/04/2009 11:27 PM EDT 11/05/2009 6:47 PM EDT Ty Griffiths DO CHEMISTRY ORDERABLES Final Re sult [facility] [address] [place] [address] * EK EKG REG GC (11/04/2009 11:02 PM EDT) Only the most recent of3 resultswithin the time period is included. Anatomical Region Laterality Modality Other 11/04/2009 11:0 2 PM EDT Narrative 11/06/2009 2:48 PM EDT Sinus bradycardia Normal ECG except for rate Uli FOY Released Date Time- 11/06/09 1448 Procedure Note Ty Foy - 11/06/2009 Sinus bradycardia Normal ECG except for rate Slurry Control Operator Helperdamaso Healy Physician- TY FOY Released Date Time- 11/06/09 1448 Ty Griffiths DO [facility] STAR CARD HISTORICAL Final Result * MR [...] Date Time- 09/01/09 1124 Procedure Note Memo Tnog MD - 09/01/2009 MRI of the right [...] 3. Degenerative changes of the AC joint. Slurry Control Operator Helper- LISSETTE Healy Physician- MEMO TONG M.D. Released Date Time- 09/01/09 1124 Marcela Ding MD [facility] GARRICK Thomas Final Result * XR BILAT [...] radiographically on the right than the left. Slurry Control Operator Helper- KELSEY Healy Physician- MEMO TONG M.D. Released [...] radiographically on the right than the left. Slurry Control Operator Helperdamaso Healy Physician- MEMO TONG M.D. Released Date Time- 08/24/091914 us Marcela Ding MD IMG [facility] STAR RAD CHARANICA L Final Result * [...] Diffuse cerebellar hemisphere atrophy of uncertain etiology. 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 Slurry Control Operator Helper- RADHA CEE Reading Physician- CEASAR MARROQUIN MD Released Date Time- 06/26/09 1604 Wang Ospina [facility] STAR RAD HISTORICAL Fin al Result * [...] medial meniscus, also apparent on plain films. Slurry Control Operator Helper- PETTY LEVIN Reading Physician- LEONARDO PUCKETT MD [...] medial meniscus, also apparent on plain films. Slurry Control Operator Helper- PETTY LEVIN Reading Physician- LEONARDO PUCKETT MD Released Date Time- 09/19/082050 Germán Bradley MD [facility] HISTORICAL F inal Result * XR LOWER LEG TIBIA/FIBULA GC (09/09/2008 1:55 PM EDT) Anatomical Region Laterality Modality Other 09/09/2008 1:55 PM EDT Narrative 09/09/2008 6:39 PM EDT Examinations of the left tibia and fibula Indications- Pain. History- Pain. Two views of the left tibia and fibula demonstrate no fractures. There are no malalignments. The cortical margins are intact. Impression- No fractures. Slurry Control Operator Helper- PETTY LIVINGSTON Reading Physician- MEMO TONG M.D. Released Date Time- 09/09/081949 Procedure Note Memo Tong - 06/22/2009 Examinations of the left tibia and fibula Indications- Pain. History- Pain. Two views of the left tibia and fibula demonstrate no fractures. There are no malalignments. The cortical margins are intact. Impression- No fractures. Slurry Control Operator Helper- PETTY Healy Physician- MEMO TONG M.D. Released Date Time- 09/09/081949 us Germán Bradley MD [facility] HISTORICAL F inal Result * XR KNEE [...] If so, MRI evaluation may be warranted. Slurry Control Operator Helperdamaso Gandara- MEMO TONG M.D. Released Date Time- [...] If so, MRI evaluation may be warranted. Slurry Control Operator Helper- PETTY Healy Physician- MEMO TONG M.D. Released Date Time- 09/09/08 1950 Germán Bradley MD [facility] STAR RAD HISTORICAL F inal Result * [...] The diary was blank. Carolina Campbell 12-04-07 Slurry Control Operator Helper- RICK Healy Physician- ISAC BALLARD MD Released [...] The diary was blank. Carolina Campbell 12-04-07 Slurry Control Operator Helper- RICK Healy Physician- ISAC BALLARD MD Released Date Time- 12/04/07 1013 Finesse Moore MD [facility] CARD HISTORIC AL Final Result * XR KNEE (04/02/2007 4:00 PM EST) Anatomical Region Laterality Modality Other 04/02/2007 4:00 PM EST Narrative 04/02/2007 4:26 PM EST PER /JESÚS RM7 Left knee 4 views, 04/02/2007 History- Pain following a twisting injury. Findings- There is no acute fracture or subluxation. Joint spaces and articular margins are intact. No definite joint effusion. Impression- Normal. Slurry Control Operator Helper- JANA SARKAR Reading Radiologist- PINO ALBARADO Released Date Time- 04/02/07 7713 Procedure Note Pino Albarado - 06/21/2009 PER /JESÚS RM7 Left knee 4 views, 04/02/2007 History- Pain following a twisting injury. Findings- There is no acute fracture or subluxation. Joint spaces and articular margins are intact. No definite joint effusion. Impression- Normal. Slurry Control Operator Helper- JANA SARKAR Reading Radiologist- PINO ALBARADO Released Date Time- 04/02/07 163 us David Palma MD [facility] HISTORICAL F inal Result * XR ANKLE [...] Impression- No fracture or dislocation, ankle joint. Slurry Control Operator Helper- DALE VELÁSQUEZ Reading Radiologist- RADHA PORTER MD. Released Date Time- 01/01/06 0914 Procedure Note Radha Porter - 06/21/2009 Three-view right ankle- 12/31/2005 Indication- 35-year-old male with unspecified right ankle injury and pain. Findings- There is mild soft tissue thickness over both medial and lateral malleoli. No cortical disruptions or fracture planes seen. Mortise joint is intact. Impression- No fracture or dislocation, ankle joint. Slurry Control Operator Helper- DALE VELÁSQUEZ Reading Radiologist- RADHA PORTER MD. Released Date Time- 01/01/06913 Robbie Eldridge MD [facility] HISTORICAL Fi nal Result * XR FOOT [...] soft tissue swelling. Impression- 1. Negative exam. Slurry Control Operator Helper- ANGELA SMITH Reading Radiologist- RADHA PORTER MD. [...] soft tissue swelling. Impression- 1. Negative exam. Slurry Control Operator Helper- ANGELA SMITH Reading Radiologist- RADHA PORTER MD. Released Date Time- 01/01/06913 Robbie Eldridge MD [facility] Fracture HISTORICAL Fi nal Result * XR SCAPULA [...] definite fracture is identified. Dustin Mcintyre MD [facility] Fracture HISTO RICAL Final Result * XR NOSE [...] The septum is midline. Dustin Mcintyre MD [facility] STAR RAD HISTO RICAL Final Result Visit [...] Lifestyle No Radha Urbina CCMA Care Teams Luggage Attendant Relationship Specialty Start Date End Date Robbie Putnam MD [address] [facility] [address] [place] [address] PCP - General Family Medicine 02/07/20
--- OUTSIDE RECORDS SUMMARY | 2025-02-04 12:42 | XMS_ITS | Data Portability ---
Author Organization [facility] ILA Arnold [place] Address [address] [place] [address] Assessment No assessment recorded. Plan of Treatment [...] Time 2 Tympanogram completed ALEJANDRA FELTON [address] [place], [address], [facility] 12/20/2021 10:44:05 2 Audiogram completed ALEJANDRA FELTON [address] [place], [address], [facility] 12/20/2021 10:44:03 Imaging Results None recorded. Procedure Notes None recorded. Medical Equipment None Reported. Vitals None Recorded 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 None recorded. Functional Status None recorded. Mental Status None recorded. Family History Nothing Reported. 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 No medical history recorded. Past Encounters Encounter ID Performer Location Encounter Start Date Encounter Closed Date Diagnosis/Indication Diagnosis SNOMED-CT Code Diagnosis ICD10 Code Diagnosis IMO Codes Diagnosis Note [id number] ALEJANDRA FELTON [place] [facility] CLOSED [address] [place] [address] 12/20/2021 10:08:29 12/20/2021 10:45:18 Sensorineural hearing loss of bilateral ears 714258088 H90.3 L>R Health Concerns Section Related Observation LastModified by Organization Detai ls LastModified Time None Recorded Concern Status LastModified by Organization Details LastModified Time None Recorded Advance Directives Directive None Recorded Payers Insurance Date Sequence Insurance Name Policy Number Policy Singleton Covered Member ID Singleton Member ID Guarantor Name 03/12/2022 2 [employer] [place] (MEDICAID HMO) Zac Clifton [id number] Nuno Clifton 03/12/2022 1 [place] [facility] ACC[facility] (MEDICARE [facility]) [id number] Nuno Clifton [id number] Nuno Clifton
--- NOTE | 2025-02-04 13:00 | MR_ITS ---
FINAL REPORT TECHNIQUE: Multiplanar MR, without and with gadolinium enhancement CLINICAL HISTORY: abn emg/ncv. LOW BACK PAIN COMPARISON: 04/19/2021 FINDINGS: Sagittal images show normal vertebral height. Alignment is normal. Marrow signal pattern is unremarkable. There is disc desiccation at L3-4 and L4-5 which is stable. No evidence of mass or abnormal enhancement. T12-L1: Unremarkable. L1-2: Unremarkable. L2-3: Unremarkable. L3-4: Minimal annular disc bulge asymmetric to the left. Mild left neuroforaminal narrowing, similar to the prior study. L4-5: Mild annular disc bulge. Mild facet overgrowth. No central canal stenosis. Mild bilateral neuroforaminal narrowing, similar to the prior study. L5-S1: Unremarkable. IMPRESSION: Stable degenerative changes at L3-4 and L4-5 as above. Reviewed, Interpreted and Dictated by Jose Farley MD Transcribed by Kathy Goncalves Authenticated and . [facility]
[2025-02-04] MEDS: SODIUM CHLORIDE 0.9% 10ML SYR (RAD ONLY) 10 ML IV (13:59)
[2025-02-04] MEDS: GADOTERIDOL INJ 20ML SYRINGE 17 ML IV (13:59)
== END 2025-02-04 23:59 | disposition home or self-care (01) ==
LOC: RAD 12:39
PROVIDERS: PCP Family Medicine; Visit Provider Family Medicine
DX: M47.816 Spondylosis without myelopathy or radiculopathy, lumbar region (principal); G62.9 Polyneuropathy, unspecified; R94.131 Abnormal electromyogram [EMG]; R20.0 Anesthesia of skin; R20.2 Paresthesia of skin
CPT/HCPCS: 72158; A9576

== ENCOUNTER 2025-03-08 11:06 | Emergency (ER) | payer MEDICARE, MEDICAID, SELFPAY ==
[2025-03-08 11:14] VITALS: BP 148/90; PULSE 67; RESP 15; TEMP 36.8; O2SAT 98; BMI 28.0
[2025-03-08 11:16] LABS: Microscopic, Urine URINE MICROSCOPIC (MICROSCOPIC)
--- OUTSIDE RECORDS SUMMARY | 2025-03-08 11:28 | XMS_ITS | Continuity of Care Document ---
Author Organization [facility] Address [address] [place] [address] Phone Care Team Providers Care Trap Operator Name Role Phone Robbie Putnam MD Primary Care Provider [phone] Encounters Date Type Department Care Team Description 07/21/2018 Refill [facility] [address] [place] [address] Germán Bradley MD Medication Refill 06/30/2018 Telephone [facility] [address] [place] [address] Dustin Mcintyre MD Other 06/02/2018 Orders Only [facility] [address] [place] [address] Radha Urbina CCMA Hepatitis A antibody positive (Primary Dx) 06/02/2018 Orders Only [facility] [address] [place] [address] Oralia Cruz RMA Elevated liver function tests (Primary Dx) 06/01/2018 9:30 AM EST Office Visit [facility] [address] [place] [address] Dustin Mcintyre MD Left inguinal [...] function tests 04/13/2018 Refill [facility] [address] [place] [address] Germán Bradley MD Medication Refill 12/22/2017 Telephone [facility] [address] [place] [address] Dustin Mcintyre MD Other 12/05/2017 8:00 AM EDT Office Visit [facility] [address] [facility] [place] [address] Germán Bradley MD Other epilepsy [...] 100 07/22/2017 1:00 PM EDT Office Visit [facility] [address] [facility] [place] [address] Germán Bradley MD Other epilepsy without status epilepticus, not intractable (HCC) (Primary Dx); Impulse control disorder; COPD, mild (HCC); Recurrent major depressive disorder, in full remission; Chest wall pain; Rotator cuff syndrome of left shoulder; JB (generalized anxiety disorder); Closed nondisplaced fracture of distal phalanx of finger, unspecified finger, initial encounter 07/08/2017 Patient Outreach [facility] [address] [place] [address] Jennifer Mccain LPN Care Transition; Care Management - Chart Review; ED Follow-Up Call 07/07/2017 9:44 PM EDT - 07/07/2017 10:25 PM EDT Emergency [facility] [address] [place] [address] Robbie Queen MD Rotator cuff strain, left, initial encounter (Primary Dx) Discharge Disposition: Home or Self Care 05/26/2017 9:28 PM EST - 05/26/2017 10:28 PM EST Emergency [facility] [address] [place] [address] Radha Lopez MD Closed nondisplaced fracture of distal phalanx of right ring finger, initial encounter (Primary Dx); Multiple abrasions Discharge Disposition: Penitentiary 05/06/2017 2:00 PM EST Office Visit [facility] [address] [place] [address] Dustin Mcintyre MD Well adult exam (Primary Dx); Other epilepsy without status epilepticus, not intractable (HCC); COPD, mild (HCC); Gastroesophageal reflux disease without esophagitis; Restless leg syndrome; Hyperlipidemia with target LDL less than 100; Cigarette nicotine dependence without complication; Impulse control disorder; Recurrent major depressive disorder, in full remission; Generalized anxiety disorder 04/08/2017 Refill [facility] [address] [place] [address] Dustin Mcintyre MD Medication Refill 04/08/2017 Refill [facility] [address] [place] [address] Germán Bradley MD Medication Refill 04/08/2017 Telephone [facility] [address] [place] [address] Dustin Mcintyre MD Other 02/27/2017 3:00 PM EST Office Visit [facility] [address] [place] [address] Germán Bradley MD Epidermal inclusion cyst (Primary Dx); Acute bacterial sinusitis; Chronic seasonal allergic rhinitis due to pollen; Lumbar sprain, initial encounter; Generalized osteoarthritis of multiple sites 01/16/2017 Telephone [facility] [address] [place] [address] Norma Greenfield MA Advice Only 01/07/2017 3:21 PM EDT - 01/07/2017 11:59 PM EDT Hospital Encounter [facility] [place] [address] Other epilepsy without status epilepticus, not intractable (HCC); Hyperlipidemia with target LDL less than 100 Discharge Disposition: Home or Self Care 01/07/2017 Telephone [facility] [address] [place] [address] Nelda Torres CMA Orders 01/07/2017 9:00 AM EDT Office Visit [facility] [address] [place] [address] Dustin Mcintyre MD Gastroesophageal reflux disease without esophagitis (Primary Dx); COPD, mild (HCC); Hyperlipidemia with target LDL less than 100; Generalized anxiety disorder; Acute pain of right knee; Right knee injury, initial encounter; Other epilepsy without status epilepticus, not intractable (HCC); Major depressive disorder, recurrent episode, mild; Chronic seasonal allergic rhinitis due to pollen 11/10/2016 Refill [facility] [address] [place] [address] Germán Bradley MD Medication Refill 10/21/2016 Refill [facility] [address] [place] [address] Nelda Torres, BISQUE GRADER Medication Refill 10/05/2016 Refill [facility] [address] [place] [address] Germán Bradley MD Medication Refill 08/18/2016 Refill [facility] [address] [place] [address] Germán Bradley MD Medication Refill 08/07/2016 1:30 PM EDT - 08/07/2016 11:59 PM EDT Hospital Encounter [facility] [address] [place] [address] Acute pain of right knee; Right knee injury, initial encounter Discharge Disposition: Home or Self Care 08/07/2016 1:15 PM EDT Office Visit [facility] [address] [place] [address] Dustin Mcintyre MD Acute pain of right knee (Primary Dx); Right knee injury, initial encounter 07/24/2016 Telephone [facility] [address] [place] [address] Dustin Mcintyre MD Other 06/21/2016 Telephone [facility] [address] [place] [address] Nelda Torres CMA Prior Authorization (nexium needs a PA) 06/12/2016 Telephone [facility] [address] [place] [address] Dustin Mcintyre MD Other 06/11/2016 7:45 AM EST - 06/11/2016 8:00 AM EST Surgery [facility] [address] [place] [address] Wang Vieira MD CARPAL TUNNEL RELEASE BILATERAL 06/11/2016 6:41 AM EST - 06/11/2016 8:24 AM EST Hospital Encounter [facility] [address] [place] [address] Wang Vieira MD Discharge Disposition: Home or Self Care 05/16/2016 1:15 PM EST Office Visit [facility] [address] [place] [address] Germán Bradley MD COPD, mild (HCC) (Primary Dx); Generalized anxiety disorder; Cigarette nicotine dependence without complication; Bilateral carpal tunnel syndrome 05/09/2016 Patient Outreach [facility] [address] [place] [address] Margie Mo LPN Care Management - Chart Review (Chart Review) 05/08/2016 1:42 PM EST - 05/08/2016 11:59 PM EST Hospital Encounter [facility] [address] [place] [address] Emg, Kiko Edg Bilateral carpal tunnel syndrome (Primary Dx) Discharge Disposition: Home or Self Care 05/06/2016 10:05 AM EST - 05/06/2016 11:59 PM EST Hospital Encounter [facility] [address] [place] [address] COPD, mild (HCC) Discharge Disposition: Home or Self Care 04/29/2016 2:30 PM EST Office Visit [address] [place] [address] Germán Bradley MD Well adult exam (Primary Dx); COPD, mild (HCC); Need for pneumococcal vaccination 04/01/2016 7:27 PM EST - 04/01/2016 11:59 PM EST Hospital Encounter [facility] [address] Memory loss; Hyperlipidemia with target LDL less than 100 Discharge Disposition: Home or Self Care 04/01/2016 Orders Only [facility] [address] [place] [address] Kinjal Bustillo RMA Gastroesophageal reflux disease without esophagitis (Primary Dx) 04/01/2016 2:30 PM EST Office Visit [facility] [address] [place] [address] Germán Bradley MD Need for influenza vaccination (Primary Dx); Generalized anxiety disorder; Hyperlipidemia with target LDL less than 100; Seasonal allergic rhinitis, unspecified allergic rhinitis trigger; Other epilepsy without status epilepticus, not intractable ([facility]); Restless leg syndrome; Major depressive disorder, recurrent episode, mild; Gastroesophageal reflux disease without esophagitis; COPD, mild ([facility]); Memory loss 02/20/2016 Refill [facility] [address] [place] [address] Germán Bradley MD Medication Refill 12/28/2015 Refill [facility] [address] [facility] [place] [address] Nelda Torres CMA Medication Refill 11/30/2015 Patient Outreach [facility] [address] [place] [address] Елена Alvares RMA ED Follow-up 11/28/2015 Patient Outreach [address] [place] [address] Margie Mo LPN Care Management - Chart Review (Chart Review-Patient discharged from ED 11/27/2015) 11/27/2015 5:23 PM EDT - 11/27/2015 6:28 PM EDT [facility] [address] [place] [address] Michelle Shirley MD Right-sided low back pain without sciatica (Primary Dx) Discharge Disposition: Home or Self Care 11/21/2015 Patient Outreach [address] [place] [address] Margie Mo LPN Care Management - Chart Review (Chart Review-Patient discharged from ED 11/20/2015) 11/20/2015 Refill [facility] [address] [place] [address] Germán Bradley MD Medication Refill 11/20/2015 3:28 PM EDT - 11/20/2015 4:01 PM EDT [facility] [address] [facility] [place] [address] Devora Lindsey MD Fall, initial encounter (Primary Dx); Cervical strain, initial encounter; Abrasions of multiple sites; Right shoulder strain, initial encounter Discharge Disposition: Home or Self Care 11/16/2015 8:07 PM EDT - 11/16/2015 11:59 PM EDT Hospital Encounter [facility] [place] [address] Other epilepsy without status epilepticus, not intractable (HCC); Hyperlipidemia with target LDL less than 100 Discharge Disposition: Home or Self Care 11/16/2015 Telephone [facility] [address] [place] [address] Nelda Torres CMA Prior Authorization (michelle frank a PA) 11/16/2015 3:00 PM EDT Office Visit [address] [place] [address] Germán Bradley MD Chronic obstructive pulmonary disease with acute exacerbation (HCC) (Primary Dx); Hyperlipidemia with target LDL less than 100; Generalized anxiety disorder; Restless leg syndrome; Major depressive disorder, recurrent episode, mild; Other epilepsy without status epilepticus, not intractable (HCC); Gastroesophageal reflux disease without esophagitis; Seasonal allergies; Acute bacterial sinusitis 10/21/2015 Refill [facility] [address] [facility] [place] [address] Germán Bradley MD Medication Refill 10/21/2015 Refill [facility] [address] [facility] [place] [address] Dustin Mcintyre MD Medication Refill 09/21/2015 Refill [facility] [address] [facility] [place] [address] Dustin Mcintyre MD Medication Refill 09/15/2015 Telephone [facility] [address] [facility] [place] [address] Germán Bradley MD Other 09/04/2015 Telephone [facility] [address] [place] [address] Nelda Torres CMA Referral 08/23/2015 Refill [facility] [address] [place] [address] Germán Bradley MD Medication Refill 08/22/2015 Telephone [facility] [address] [place] [address] Germán Bradley MD Other 08/17/2015 Telephone [facility] [address] [place] [address] Germán Bradley MD Letter for School/Work 08/08/2015 Telephone [facility] [address] [place] [address] Nelda Torres [facility] Prior Authorization (atarax needs a PA) 08/07/2015 Refill [facility] [address] [place] [address] Germán Bradley MD Medication Refill 07/20/2015 Refill [facility] [address] [place] [address] Germán Bradley MD Medication Refill 07/05/2015 Refill [facility] [address] [place] [address] Dustin Mcintyre MD Medication Refill 06/26/2015 Refill [facility] [address] [place] [address] Germán Bradley MD Medication Refill 06/26/2015 Patient Outreach [facility] [address] [place] [address] Елена Alvares RMA ED Follow-up 06/26/2015 Patient Outreach [facility] [address] [place] [address] Margie Mo LPN Care Management - Chart Review (Discharged from ED 06/23/2015 Chart Reviewed) 06/23/2015 4:34 PM EST - 06/23/2015 6:22 PM EST Emergency [facility] [address] [place] [address] Elina Hall MD Pain of left lower extremity (Primary Dx) Discharge Disposition: Home or Self Care 06/20/2015 8:30 AM EST - 06/20/2015 9:30 AM EST Surgery [facility] [place] [address] [address] Crow Love MD SHOULDER ARTHROSCOPY SUBACROMIAL DECOMPRESSION /FULL MILLY 06/20/2015 7:52 AM EST Anesthesia Event [facility] [place] [place] [address] [address] Jerson Can DO Mucenski, Cathleen M, MD 06/20/2015 6:32 AM EST - 06/20/2015 10:47 AM EST Hospital Encounter [facility] [place] [place] [address] [address] Crow Love MD Discharge Disposition: Home or Self Care 05/10/2015 Refill [facility] [address] [place] [address] Dustin Mcintyre MD Medication Refill 2015 10:00 AM EST Office Visit [facility] [address] [place] [address] Germán Bradley MD Well adult (Primary Dx); Cigarette nicotine dependence without complication 04/20/2015 3:26 PM EST - 04/20/2015 11:59 PM EST Hospital Encounter [facility] [address] Other epilepsy without status epilepticus, not intractable (HCC); Hyperlipidemia with target LDL less than 100 Discharge Disposition: Home or Self Care 04/20/2015 Telephone [facility] [address] [place] [address] MaynorarturoЕлена, RMA Anxiety 04/20/2015 9:30 AM EST Office Visit [facility] [address] [place] [address] Germán Bradley MD Chronic obstructive pulmonary disease with acute exacerbation (HCC) (Primary Dx); Generalized anxiety disorder; Gastroesophageal reflux disease without esophagitis; Restless leg syndrome; Hyperlipidemia with target LDL less than 100; Major depressive disorder, recurrent episode, mild; Other epilepsy without status epilepticus, not intractable (HCC); Impingement syndrome, shoulder, right 04/12/2015 Refill [facility] [address] [place] [address] Dustin Mcintyre MD Medication Refill 04/11/2015 Refill [facility] [address] [place] [address] Dustin Mcintyre MD Medication Refill 04/11/2015 Refill [facility] [address] [place] [address] Dustin Mcintyre MD Medication Refill 03/30/2015 11:00 AM EST Office Visit [facility] [address] [place] [address] Germán Bradley MD Shoulder tendonitis, right (Primary Dx); Primary osteoarthritis of right shoulder 03/23/2015 Orders Only [facility] [address] [place] [address] Tu Rivera MD Seizure disorder (HCC) (Primary Dx) 03/22/2015 11:10 AM EST - 03/22/2015 11:59 PM [facility] Hospital Encounter [facility] [address] [place] [address] [phone] Dustin Mcintyre MD Right shoulder pain Discharge Disposition: Home or Self Care 03/21/2015 Orders Only [facility] [address] [place] [address] Елена Alvares, RMSabine Chronic obstructive pulmonary disease with acute exacerbation (HCC) (Primary Dx); Generalized anxiety disorder 03/20/2015 Refill [facility] [address] [place] [address] Dustin Mcintyre MD Medication Refill 03/17/2015 10:15 AM EST Office Visit [facility] [address] [place] [address] Dustin Mcintyre MD Right shoulder pain (Primary Dx) 02/24/2015 11:00 AM EST Office Visit [facility] [address] [place] [address] Dustin Mcintyre MD Generalized anxiety disorder (Primary Dx); Trapezius strain, unspecified laterality, initial encounter; Medial epicondylitis of elbow, right 01/24/2015 Refill [facility] [address] [place] [address] Dustin Mcintyre MD Medication Refill 01/24/2015 Refill [facility] [address] [place] [address] Nelda Torres, BISQUE GRADER Medication Refill 01/23/2015 Refill [facility] [address] [place] [address] Nelda Torres, BISQUE GRADER Medication Refill 12/21/2014 Refill [facility] [address] [place] [address] Dustin Mcintyre MD Medication Refill 11/04/2014 3:00 PM EDT - 11/04/2014 11:59 PM EDT Hospital Encounter [facility] [place] [address] Other epilepsy without status epilepticus, not intractable (HCC); Hyperlipidemia LDL goal < 100 Discharge Disposition: Home or Self Care 11/04/2014 9:15 AM EDT Office Visit [facility] [address] [place] [address] Dustin Mcintyre MD Generalized anxiety disorder (Primary Dx); Asthma, unspecified asthma severity, uncomplicated; COPD (chronic obstructive pulmonary disease) ([facility]); Restless leg syndrome; Gastroesophageal reflux disease without esophagitis; Other epilepsy without status epilepticus, not intractable ([facility]); Hyperlipidemia LDL goal < 100 11/01/2014 Refill [facility] [address] [place] [address] Dustin Mcintyre MD Medication Refill 11/01/2014 Refill [facility] [address] [place] [address] Dustin Mcintyre MD Medication Refill 10/31/2014 Refill [facility] [address] [place] [address] Dustin Mcintyre MD Medication Refill 10/14/2014 Refill [facility] [address] [place] [address] Dustin Mcintyre MD Medication Refill 08/29/[address] [place] [address] Nelda Torres CMA Medication Management (atrarax needs a pa) 08/10/2014 Telephone [facility] [address] [place] [address] Nelda Torres CMA Medication Management (hyrdoxyzine needs a PA) 07/13/2014 Telephone [facility] [address] [place] [address] Nelda Torres CMA Medication Problem 07/08/2014 9:28 AM EDT - 07/08/2014 11:59 PM EDT Hospital Encounter [facility] Physical Therapy [address] [place] [address] Shanice Ybarra, PT Discharge Disposition: Home or Self Care 07/01/2014 10:04 AM EDT - 07/01/2014 11:59 PM EDT Hospital Encounter [facility] Physical Therapy [place] [address] [place] [address] Shanice Ybarra, PT Discharge Disposition: Home or Self Care 06/28/2014 9:27 AM EDT - 06/28/2014 11:59 PM EDT Hospital Encounter [facility] Physical Therapy [place] [address] [place] [address] Margarita Doran, PT Discharge Disposition: Home or Self Care 06/21/2014 8:15 AM EDT - 06/21/2014 8:45 AM EDT Surgery [facility] [place] [address] Crow Love MD KNEE ARTHROSCOPY MENISCECTOMY/REPAIR (ALSO COVERS ARTHROSCOPIC INCISION AND DRAINAGE/DEBRIDEMENT) 06/21/2014 7:50 AM EDT Anesthesia Event [facility] [place] [address] [address] Artem Naqvi MD Brannon, Daniel Todd, DO 06/21/2014 6:35 AM EDT - 06/21/2014 10:32 AM EDT Hospital Encounter [facility] [place] [place] [address] Crow Love MD Discharge Disposition: Home or Self Care 06/08/2014 10:30 AM EST Office Visit [facility] [address] [place] [address] Dustin Mcintyre MD Pre-op exam (Primary Dx); Arthritis of knee; Folliculitis; Epilepsy (HCC); Restless leg syndrome; JB (generalized anxiety disorder); Hearing loss in left ear; GERD (gastroesophageal reflux disease) 05/25/2014 Telephone [facility] [address] [place] [address] Dustin Mcintyre MD Results 05/21/2014 Refill [facility] [address] [facility] [place] [address] Dustin Mcintyre MD Medication Refill 05/20/2014 7:41 PM EST - 05/20/2014 11:59 PM EST Hospital Encounter [facility] [place] [address] Hypernatremia; Pre-op testing Discharge Disposition: Home or Self Care 05/20/2014 Orders Only [facility] [address] [place] [address] Lay Minor MD Hypernatremia (Primary Dx); Pre-op testing 05/20/2014 11:00 AM EST Office Visit [facility] [address] [facility] [place] [address] Dustin Mcintyre MD Bronchitis (Primary Dx); COPD exacerbation (HCC); Asthma exacerbation, moderate persistent; Chest wall pain; Vomiting; Hypernatremia 05/19/2014 Patient Outreach [address] [address] Nasrin Perry, transcription manager (ED f/u call ) 05/18/2014 11:12 AM EST - 05/18/2014 12:37 PM EST Emergency [facility] [address] [place] [address] Mariaelena Rossi MD Acute bronchitis (Primary Dx); Acute sinusitis; COPD (chronic obstructive pulmonary disease) (HCC) Discharge Disposition: Home or Self Care 2014 7:57 PM EST - 2014 11:59 PM EST Hospital Encounter [facility] [address] Healthcare maintenance; Epilepsy (HCC) Discharge Disposition: Home or Self Care 2014 10:00 AM EST Office Visit [address] [place] [address] Dustin Mcintyre MD Epilepsy (HCC) (Primary Dx); Generalized anxiety disorder; Hyperlipidemia LDL goal < 100; Restless leg syndrome; GERD (gastroesophageal reflux disease); Healthcare maintenance; COPD (chronic obstructive pulmonary disease) ([facility]) 04/01/2014 Telephone [facility] [address] [place] [address] Dustin Mcintyre MD Results 03/23/2014 11:00 AM EST Office Visit [facility] [address] [place] [address] Wheezing; SOB (shortness of breath) Discharge Disposition: Home or Self Care 03/18/2014 10:45 AM EST Office Visit [facility] [address] [place] [address] Dustin Mcintyre MD Wheezing (Primary Dx); SOB (shortness of breath) 03/17/2014 Telephone [facility] [address] [place] [address] Nelda Torres CMA Medication Management (protonix bid needs a PA) 03/14/2014 Telephone [facility] [address] [place] [address] Dustin Mcintyre MD Medication Refill 03/08/2014 Telephone [facility] [address] [place] [address] Dustin Mcnityre MD Other 03/08/2014 11:20 AM EST - 03/08/2014 11:59 PM EST Hospital Encounter [facility] [address] [place] [address] Allergic rhinitis, cause unspecified (Primary Dx); Epilepsy ([facility]); Hearing loss in left ear; GERD (gastroesophageal reflux disease); JB (generalized anxiety disorder); FHx: prostate cancer; FHx: lung cancer; Nicotine dependence; Restless leg syndrome Discharge Disposition: Home or Self Care 03/08/2014 10:45 AM EST Office Visit [facility] [address] [place] [address] Dustin Mcintyre MD Hyperlipidemia LDL goal < 100 (Primary Dx); GERD (gastroesophageal reflux disease); Asthma, unspecified asthma severity, uncomplicated; Epilepsy (HCC); Generalized anxiety disorder; Restless leg syndrome 02/12/2014 Refill [facility] [address] [facility] [place] [address] Dustin Mcintyre MD Medication Refill 02/04/2014 8:00 AM EDT - 02/04/2014 9:52 AM EDT Surgery [facility] [address] [place] [address] Los Gordon MD FUNCTIONAL ENDOSCOPIC SINUS SURGERY/SINOSCOPY 02/04/2014 6:27 AM EDT - 02/04/2014 11:53 AM EDT Hospital Encounter [facility] SAME DAY [facility] [address] [place] [address] Los Gordon MD Discharge Disposition: Home or Self Care 02/02/2014 11:00 AM EDT - 02/02/2014 11:59 PM EDT Hospital Encounter [facility] PRE-ADMIT TESTING [address] [place] [address] Pat, Clarice Discharge Disposition: Home or Self Care 01/24/2014 11:29 AM EDT - 01/24/2014 11:59 PM EDT Hospital Encounter [facility] [address] [place] [address] Esophageal reflux (Primary Dx); Dyspepsia and other specified disorders of function of stomach; Dysphagia, unspecified(787.20) Discharge Disposition: Home or Self Care 11/19/2013 10:30 AM EDT Office Visit [facility] [address] [facility] [place] [address] Dustin Mcintyre MD Laceration of wrist, left, subsequent encounter (Primary Dx) 11/13/2013 Refill [facility] [address] [facility] [place] [address] Marcela Ding MD Medication Refill 11/12/2013 6:42 PM EDT - 11/12/2013 7:45 PM EDT Emergency [facility] [address] [facility] [place] [address] Jerson Go MD Wrist laceration, left, initial encounter (Primary Dx) Discharge Disposition: Home or Self Care 11/03/[address] [place] [address] Chyna Mcgraw MA Referral (ORTHO) 11/01/2013 Orders Only [address] [place] [address] Marcela Ding MD Knee pain, right (Primary Dx) 11/01/2013 8:55 AM EDT - 11/01/2013 11:59 PM EDT Hospital Encounter [facility] [address] [place] [address] Dustin Mcintyre MD Right knee pain; Recurrent right knee instability Discharge Disposition: Home or Self Care 10/29/[address] [place] [address] Dustin Mcintyre MD Other 10/28/2013 Telephone [address] [place] [address] Dustin Mcintyre MD Referral 10/25/2013 4:43 PM EDT - 10/25/2013 11:59 PM EDT Hospital Encounter [facility] [address] [place] [id number] Hyperlipidemia LDL goal < 100 (Primary Dx); Epilepsy (HCC); Screening PSA (prostate specific antigen); Family history of prostate cancer; FHx: prostate cancer; Other nonspecific abnormal serum enzyme levels Discharge Disposition: Home or Self Care 10/25/2013 Telephone [address] [place] [address] Nelda Torres CMA Medication Management (Nexium bid dosing needs a PA) 10/25/2013 10:30 AM EDT Office Visit [address] [place] [address] Dustin Mcintyre MD Epilepsy ([facility]) (Primary Dx); Asthma, unspecified asthma severity, uncomplicated; Generalized anxiety disorder; JB (generalized anxiety disorder); GERD (gastroesophageal reflux disease); Family history of prostate cancer; Hyperlipidemia LDL goal < 100; FHx: prostate cancer; Hearing loss in left ear; Restless leg syndrome; Right knee pain; Recurrent right knee instability; Screening PSA (prostate specific antigen) 10/18/2013 Refill [facility] [address] [place] [address] Germán Bradley MD Medication Refill 10/13/2013 10:00 AM EDT Office Visit [facility] [address] [place] [address] Tu Rivera MD Epilepsy ([facility]) (Primary Dx); Hearing loss in left ear; Nicotine dependence; Restless leg syndrome 09/10/2013 Refill [facility] [address] [place] [address] Germán Bradley MD Medication Refill 08/30/2013 Refill [facility] [address] [place] [address] Nelda Torres [facility] Medication Refill 08/26/2013 Telephone [facility] [address] [place] [address] Nelda Torres [facility] Referral 08/26/2013 Refill [facility] [address] [place] [address] Germán Bradley MD Medication Refill 08/26/2013 11:20 AM EDT - 08/26/2013 11:59 PM EDT Hospital Encounter [facility] Physical Therapy [facility] [address] [place] [address] Yvrose Palma, PT Discharge Disposition: Home or Self Care 08/17/2013 1:17 PM EDT - 08/17/2013 11:59 PM EDT Hospital Encounter [facility] Physical Therapy [facility] [address] [place] [address] Yvrose Palma, PT Discharge Disposition: Home or Self Care 08/16/2013 Refill [facility] [address] [place] [address] Germán Bradley MD Medication Refill 08/16/2013 Refill [facility] [address] [place] [address] Dustin Mcintyre MD Medication Refill 08/12/2013 Refill [facility] [address] [place] [address] Marcela Ding MD Medication Refill 08/12/2013 Refill [facility] [address] [place] [address] Germán Bradley MD Medication Refill 08/12/2013 Refill [facility] [address] [place] [address] Dustin Mcintyre MD Medication Refill 07/27/2013 Telephone [facility] [address] [place] [address] Nelda Torres, NIESHA Medication Refill 07/23/2013 8:30 AM EDT - 07/23/2013 11:59 PM EDT Hospital Encounter [place] [address] [facility] [place] [address] Los Gordon MD Sensorineural hearing loss, asymmetrical; Abnormal auditory perception, unspecified Discharge Disposition: Home or Self Care 07/07/2013 Refill [facility] [address] [place] [address] Nelda Torres, [employer] Medication Refill 06/29/2013 2:00 PM EDT - 06/29/2013 11:59 PM EDT Hospital Encounter [facility] [address] [facility] [place] [address] Mag Becerra [facility] ATTENDANT Discharge Disposition: Home or Self Care 06/25/2013 Refill [facility] [address] [place] [address] Dustin Mcintyre MD Medication Refill 06/01/2013 Telephone [facility] [address] [place] [address] Germán Bradley MD Labs Only 05/31/2013 4:54 PM EST - 05/31/2013 11:59 PM EST Hospital Encounter [facility] [place] [address] Well adult exam; Epilepsy (HCC) Discharge Disposition: Home or Self Care 05/31/2013 10:00 AM EST - 05/31/2013 4:53 PM EST Hospital Encounter [facility] [address] [place] [address] COPD (chronic obstructive pulmonary disease) (HCC); FHx: lung cancer; Cough Discharge Disposition: Home or Self Care 05/31/2013 9:15 AM EST Office Visit [facility] [place] [address] Germán Bradley MD Well adult exam (Primary Dx); COPD (chronic obstructive pulmonary disease) (HCC); Epilepsy (HCC); GERD (gastroesophageal reflux disease); JB (generalized anxiety disorder); Atypical moles; FHx: prostate cancer; FHx: lung cancer; Cough; Tobacco abuse 05/26/2013 Telephone [facility] [address] [place] [address] Dustin Mcintyre MD Epistaxis 05/24/2013 Refill [facility] [address] [place] [address] Germán Bradley MD Medication Refill 05/21/2013 Refill [facility] [address] [place] [address] Dustin Mcintyre MD Medication Refill 05/21/2013 Refill [facility] [address] [place] [address] Germán Bradley MD Medication Refill 05/03/2013 Telephone [facility] [address] [place] [address] TorresNelda jackson [facility] Medication Refill 04/29/2013 10:15 AM EST Office Visit [facility] [address] [place] [address] Germán Bradley MD JB (generalized anxiety disorder) (Primary Dx); Back strain 04/15/2013 Refill [facility] [address] [place] [address] Marcela Ding MD Medication Refill 04/15/2013 Refill [facility] [address] [place] [address] Germán Bradley MD Medication Refill 03/24/[address] [place] [address] Veronica Freed MA Anxiety 03/16/[address] [place] [address] Chyna Mcgraw MA Referral (ORTHO) 03/15/2013 1:00 PM EST Office Visit [facility] [address] [place] [address] Dustin Mcintyre MD Arthralgia of shoulder region, right (Primary Dx); Arthritis of elbow, right; GERD (gastroesophageal reflux disease); RLS (restless legs syndrome); Epilepsy (HCC); Bipolar affective disorder (HCC); Generalized anxiety disorder; Asthma 03/14/2013 Refill [facility] [address] [place] [address] Germán Bradley MD Medication Refill 03/05/2013 Telephone [facility] [place] [address] [place] [address] Dustin Mcintyre MD Medication Change 03/02/2013 2:15 PM EST Office Visit [facility] [place] [address] [place] [address] Dustin Mcintyre MD Shoulder pain (Primary Dx) 03/02/2013 1:27 PM EST - 03/02/2013 11:59 PM EST Hospital Encounter [place] [address] [place] [address] Kathy Wasserman, PT Discharge Disposition: Home or Self Care 03/01/2013 Refill [facility] [address] [place] [address] Germán Bradley MD Medication Refill 03/01/2013 Refill [facility] [address] [place] [address] Dustin Mcintyre MD Medication Refill 03/01/2013 Refill [facility] [address] [place] [address] Marcela Ding MD Medication Refill 02/27/2013 Telephone [facility] [address] [place] [address] Germán Bradley MD Other 02/26/2013 10:07 AM EST - 02/26/2013 11:59 PM EST Hospital Encounter [address] [place] [address] Kathy Wasserman, PT Discharge Disposition: Home or Self Care 02/18/2013 12:51 PM EST - 02/18/2013 11:59 PM EST Hospital Encounter [address] [place] [address] Kathy Wasserman, PT Discharge Disposition: Home or Self Care 02/12/2013 Refill [facility] [address] [place] [address] Dustin Mcintyre MD Medication Refill 02/10/2013 9:06 AM EDT - 02/10/2013 11:59 PM EDT Hospital Encounter [facility] Physical [address] [place] [address] Kathy Wasserman, PT Discharge Disposition: Home or Self Care 02/05/2013 12:26 PM EDT - 02/05/2013 11:59 PM EDT Hospital Encounter [address] [place] [address] Kathy Wasserman, PT Discharge Disposition: Home or Self Care 02/01/2013 Refill [facility] [address] [address] Marcela Ding MD Medication Refill 01/29/2013 Telephone [facility] [address] [place] [address] Germán Bradley MD Medication Refill 01/18/2013 8:30 AM EDT - 01/18/2013 9:30 AM EDT Surgery [facility] [address] [place] [address] Crow Love MD SHOULDER ARTHROSCOPY LABRAL/BANKART/ BICEP TENODESIS (COVERS SUPERIOR LABRAL ANTERIOR POSTERIOR REPAIR/SLAP) 01/18/2013 5:21 AM EDT - 01/18/2013 12:50 PM EDT Hospital Encounter [facility] SAME DAY SURGERY [address] [place] [address] Crow Love MD Discharge Disposition: Home or Self Care 01/14/2013 Telephone [facility] [address] [place] [address] Germán Bradley MD Medication Reaction 01/08/2013 2:00 PM EDT Office Visit [facility] [address] [place] [address] Germán Bradley MD Infected inclusion cyst (Primary Dx); RLS (restless legs syndrome) 12/25/2012 12:38 PM EDT - 12/25/2012 11:59 PM EDT Hospital Encounter [facility] MRI [address] [place] [address] Germán Bradley MD Rotator cuff syndrome of left shoulder Discharge Disposition: Home or Self Care 12/20/2012 9:52 AM EDT - 12/20/2012 11:16 AM EDT Emergency [facility] [place] [address] Pino Maxwell MD Foot sprain (Primary Dx) Discharge Disposition: Home or Self Care 12/16/2012 1:45 PM EDT Office Visit [facility] [address] [facility] [place] [address] Germán Bradley MD Rotator cuff syndrome of left shoulder (Primary Dx); Need for influenza vaccination 12/15/2012 Telephone [facility] [address] [facility] [place] [address] Germán Bradley MD Referral 12/11/2012 Refill [facility] [address] [place] [address] Marcela Ding MD Medication Refill 12/11/2012 Refill [facility] [address] [facility] [place] [address] Germán Bradley MD Medication Refill 12/02/2012 11:17 AM EDT - 12/02/2012 11:59 PM EDT Hospital Encounter [facility] Physical Therapy [facility] [address] [place] [address] Chyna Mathis, PT Discharge Disposition: Home or Self Care 12/02/2012 10:00 AM EDT Office Visit [facility] [address] [place] [address] Germán Bradley MD Seborrhea (Primary Dx); Cervical lymphadenitis 11/19/2012 Refill [facility] [address] [place] [address] Germán Bradley MD Medication Refill 11/18/2012 10:41 AM EDT - 11/18/2012 11:59 PM EDT Hospital Encounter [facility] Physical Therapy [facility] [address] [place] [address] Shanice Ybarra PT Rotator cuff syndrome (Primary Dx) Discharge Disposition: Home or Self Care 11/09/2012 12:11 PM EDT - 11/09/2012 11:59 PM EDT Hospital Encounter [facility] [address] [place] [address] Scoliosis; Back pain Discharge Disposition: Home or Self Care 11/09/2012 11:30 AM EDT Office Visit [facility] [address] [place] [address] Germán Bradley MD Rotator cuff syndrome Bilateral (Primary Dx) 11/05/2012 Telephone [facility] [address] [place] [address] Germán Bradley MD Back Pain 11/03/2012 Telephone [facility] [address] [place] [address] Nelda Torres CMA Back Pain 11/02/2012 5:12 PM EDT - 11/02/2012 11:59 PM EDT Hospital Encounter [facility] [address] Epilepsy (HCC) Discharge Disposition: Home or Self Care 11/02/2012 9:00 AM EDT Office Visit [facility] [address] [place] [address] Germán Bradley MD LBP (low back pain) (Primary Dx); Neck pain; Shoulder pain; JB (generalized anxiety disorder); Epilepsy (HCC) 10/31/2012 Refill [facility] [address] [place] [address] Nelda Torres CMA Medication Refill 10/26/2012 Refill [facility] [address] [place] [address] Germán Bradley MD Medication Refill 10/20/2012 Telephone [facility] [address] [place] [address] Dustin Mcintyre MD Other 10/14/2012 Telephone [facility] [address] [place] [address] Dustin Mcintyre MD Medication Refill; Medication Change 10/09/2012 5:34 PM EDT - 10/09/2012 11:59 PM EDT Hospital Encounter [facility] LAB [facility] [place] [address] Epilepsy (HCC); Generalized anxiety disorder Discharge Disposition: Home or Self Care 10/09/2012 Telephone [facility] [address] [place] [address] Norma Greenfield MA Medication Change 10/09/2012 8:30 AM EDT Office Visit [facility] [address] [place] [address] Dustin Mcintyre MD Epilepsy (HCC) (Primary Dx); GERD (gastroesophageal reflux disease); Asthma; Bipolar affective disorder (HCC); Generalized anxiety disorder; ED (erectile dysfunction) 06/20/2012 Refill [facility] [address] [place] [address] Marcela Ding MD Medication Refill 05/01/2012 1:57 PM EST - 05/01/2012 11:59 PM EST Hospital Encounter [facility] [address] [place] [address] Kathy Wasserman, PT Discharge Disposition: Home or Self Care 04/24/2012 1:47 PM EST - 04/24/2012 11:59 PM EST Hospital Encounter [facility] [address] [place] [address] Kathy Wasserman, PT Discharge Disposition: Home or Self Care 04/17/2012 1:01 PM EST - 04/17/2012 11:59 PM EST Hospital Encounter [facility] [address] [place] [address] Kathy Wasserman, PT Discharge Disposition: Home or Self Care 04/16/2012 Refill [facility] [address] [place] [address] Marcela Ding MD Medication Refill 04/05/2012 5:08 PM EST - 04/05/2012 6:19 PM [facility] Emergency [facility] [place] [facility] [address] [place] [address] Roshan Sanchez MD Chronic knee pain (Primary Dx) Discharge Disposition: Home or Self Care 03/09/2012 Refill [facility] [address] [place] [address] Marcela iDng MD Medication Refill 03/03/2012 Refill [facility] [address] [place] [address] Marcela Ding MD Medication Refill 02/28/2012 8:15 PM EST - 02/28/2012 11:59 PM EST Hospital Encounter [facility] LAB [facility] [place] [address] Epilepsy (HCC); Bipolar affective disorder (HCC); Abdominal pain Discharge Disposition: Home or Self Care 02/28/2012 10:20 AM EST Office Visit [facility] [address] [place] [address] Germán Bradley MD Epilepsy (HCC); Abdominal pain; Bipolar affective disorder (HCC); Asthma; Knee pain, left 01/17/2012 Telephone [facility] [address] [place] [address] Marcela Ding MD Medication Refill 12/21/2011 Refill [facility] [address] [place] [address] Germán Bradley MD Medication Refill 12/02/2011 7:06 PM EDT - 12/02/2011 11:59 PM EDT Hospital Encounter [facility] [place] [address] Bipolar affective disorder (HCC); Encounter for long-term (current) use of medications Discharge Disposition: Home or Self Care 12/02/2011 10:20 AM EDT Office Visit [place] [address] [place] [address] Dustin Mcintyre MD Knee pain, left (Primary Dx); Epilepsy (HCC); Bipolar affective disorder (HCC); Asthma; COPD (chronic obstructive pulmonary disease) (HCC); Anxiety; Encounter for long-term (current) use of medications 10/31/[address] [place] [address] Germán Bradley MD Medication Refill 10/17/2011 Telephone [facility] [address] [place] [address] Marcela Ding MD Other 10/01/2011 3:24 PM EDT - 10/01/2011 4:31 PM EDT [facility] [address] [place] [address] Mariaelena Rossi MD Contusion of third finger, right; Left elbow contusion; Fall Discharge Disposition: Home or Self Care 09/14/2011 Refill [facility] [place] [address] [place] [address] Germán Bradley MD Medication Refill 08/23/2011 9:20 AM EDT Office Visit [place] [address] [place] [address] Germán Bradley MD Osteoarthritis (Primary Dx); Asthma; Epilepsy (HCC); Arthritis shoulder and knee; GERD (gastroesophageal reflux disease); Bipolar affective disorder (HCC); CTS (carpal tunnel syndrome) 08/07/2011 12:58 PM EDT - 08/07/2011 2:03 PM EDT Emergency [facility] [address] [place] [address] Alfie Perez MD Carpal tunnel syndrome of right wrist; Rotator cuff injury Discharge Disposition: Home or Self Care 07/10/2011 Telephone [facility] [address] [place] [address] Germán Bradley MD Other 07/02/2011 Telephone [facility] [address] [place] [address] Nelda Torres CMA Other (PA for celexa) 06/28/2011 9:51 AM EDT - 06/28/2011 11:59 PM EDT Hospital Encounter [facility] [address] [place] [address] Germán Bradley MD TMJ (dislocation of temporomandibular joint); Jaw pain; Dental decay Discharge Disposition: Home or Self Care 06/28/2011 9:20 AM EDT Office Visit [facility] [address] [place] [address] Germán Bradley MD Bipolar affective disorder (HCC); Anxiety; TMJ (dislocation of temporomandibular joint); Jaw pain; Dental decay 06/11/2011 Telephone [facility] [address] [place] [address] Marcela Ding MD Medication Refill 06/03/2011 8:09 PM EST - 06/03/2011 11:59 PM EST Hospital Encounter [facility]EV[facility] PROCESSING [facility] [place] [address] Bipolar affective disorder (HCC); Epilepsy (HCC) Discharge Disposition: Home or Self Care 06/03/2011 1:00 PM EST Office Visit [facility] [address] [place] [address] Germán Bradley MD Bipolar affective disorder (HCC); Asthma; Epilepsy (HCC) 05/18/2011 Refill [facility] [address] [place] [address] Germán Bradley MD Medication Refill 05/03/2011 Telephone [facility] [place] [address] [place] [address] Nelda Torres, NIESHA Other 05/03/2011 10:50 AM EST Office Visit [facility] [address] [place] [address] Germán Bradley MD Asthma (Primary Dx); Side pain; Abdominal wall pain; Bipolar affective disorder (HCC); Epilepsy (HCC) 04/17/2011 Refill [facility] [place] [address] [place] [address] Germán Bradley MD Medication Refill 03/18/2011 Telephone [place] [address] [place] [address] Cleopatra Duran Other 02/18/2011 2:20 PM EST - 02/18/2011 11:59 PM EST Hospital Encounter [facility] Physical [place] [address] [place] [address] Chyna Mathis, PT Discharge Disposition: Home or Self Care 02/11/2011 2:30 PM EDT - 02/11/2011 11:59 PM EDT Hospital Encounter [facility] Physical [place] [address] [place] [address] Chyna Mathis, PT Discharge Disposition: Home or Self Care 02/04/2011 2:24 PM EDT - 02/04/2011 11:59 PM EDT Hospital Encounter [facility] Physical Therapy [place] [address] [place] [address] Chyna Mathis, [place] Discharge Disposition: Home or Self Care 01/11/2011 Telephone [facility] [address] [address] Marcela Ding MD Other 12/28/[address] [address] Lucy Redman Rectal Bleeding 12/19/2010 2:51 PM EDT - 12/19/2010 11:59 PM EDT Hospital Encounter [facility] PROCESSING [facility] [place] [address] Elevated glucose Discharge Disposition: Home or Self Care 12/19/2010 10:30 AM EDT Office Visit [address] [address] Germán Bradley MD Bipolar affective disorder (HCC); Epilepsy (HCC); Asthma; AR (allergic rhinitis); GERD (gastroesophageal reflux disease); Arthritis shoulder and knee; Elevated glucose 12/14/[address] [address] Lucy Redman Medication Refill 12/14/[address] [address] Germán Bradley MD Medication Refill 12/12/2010 1:22 PM EDT - 12/12/2010 2:55 PM EDT Emergency [facility] [address] [place] [address] Ty Griffiths, Fibula fracture Discharge Disposition: Home or Self Care 12/08/[address] [address] Inge Quinn, ARMOND Results 11/21/2010 8:29 PM EDT - 11/21/2010 11:59 PM EDT Hospital Encounter [facility] PROCESS[facility] [place] [address] Lipid screening; Epilepsy (HCC); Encounter for long-term (current) use of medications Discharge Disposition: Home or Self Care 11/21/2010 10:30 AM EDT Clinical Support [address] [place] [address] Oralia Cruz Sabine Bipolar affective disorder (HCC); Epilepsy (HCC); Lipid screening; Encounter for long-term (current) use of medications 11/09/[address] [place] [address] Germán Bradley MD Medication Refill 07/31/2010 2:00 PM EDT Office Visit [address] [place] [address] Germán Bradley MD Asthma; Bronchitis; Rotator cuff syndrome 07/30/[address] [place] [address] Lucy Redman Marquis Other 05/02/2010 11:30 AM EST Office Visit [address] [place] [address] Germán Bradley MD Epilepsy (HCC); Bipolar affective disorder (HCC); Asthma; COPD (chronic obstructive pulmonary disease) ([facility]); GERD (gastroesophageal reflux disease); Osteoarthritis 04/30/2010 10:08 AM EST - 04/30/2010 11:59 PM EST Hospital Encounter [facility]IN PROCESSING [facility] [place] [address] Marcela Ding MD Encounter for long-term (current) use of other medications; Epilep NOS w/o intr epil; Bipolar disorder NOS Discharge Disposition: Home or Self Care 04/30/2010 9:50 AM EST Clinical Support [address] [place] [address] Nelly Owusu RMA Epilepsy (HCC); Bipolar affective disorder ([facility]) [address] [place] [address] AnthonyOralia A Letter for School/Work ([employer] form) 04/13/2010 Refill SEP [address] [place] [address] Germán Bradley MD Medication Refill 03/17/2010 Refill SEP [address] [place] [address] Germán Bradley MD Medication Refill 02/12/2010 Refill SEP [address] [place] [address] Germán Bradely MD Medication Refill 01/16/2010 11:10 AM EDT Office Visit [address] [place] [address] Germán Bradley MD COPD (chronic obstructive pulmonary disease) ([facility]); Osteoarthritis of knee 12/21/2009 Refill SEP [address] [place] [address] Marcela Ding MD Medication Refill 12/07/[address] [place] [address] Dustin Mcintyre MD Medication Refill 11/07/2009 7:59 PM EDT - 11/07/2009 11:59 PM EDT Hospital Encounter HST SUWT EDG Germán Bradley MD 11/07/2009 3:20 PM EDT Office Visit [address] [place] [address] Germán Bradley MD PUD (peptic ulcer disease) (Primary Dx); Bipolar affective disorder ([facility]); Asthma; AR (allergic rhinitis) 11/04/2009 10:43 PM EDT - 11/05/2009 12:41 AM EDT Emergency HST GES GRT Ty Griffiths, DO 10/12/2009 12:01 AM EDT - 10/26/2009 1:28 PM EDT Hospital Encounter HST PT Germán Odom MD 10/25/2009 9:30 AM EDT Office Visit SEP [facility] [address] [place] [address] Germán Bradley MD AR (allergic rhinitis); GERD (gastroesophageal reflux disease); Rotator cuff syndrome; Bipolar affective disorder (HCC); Asthma; Epilepsy (HCC) 09/12/2009 12:01 AM EDT - 10/11/2009 11:59 PM EDT Hospital Encounter HST PT Marcela Villanueva MD Burke, Brennan C, MD 09/28/2009 Telephone SEP [facility] [address] [place] [address] Nelly Owusu RMA Medication Problem 09/27/2009 Telephone SEP [facility] [address] [place] [address] Veronica Freed MA Other 09/27/2009 1:20 PM EDT Office Visit [facility] [address] [place] [address] Germán Bradley MD Rotator cuff syndrome; AR (allergic rhinitis); GERD (gastroesophageal reflux disease) 09/14/2009 2:06 AM EDT - 09/14/2009 11:59 PM EDT Emergency HST GES GRT Ty Blake, DO 08/24/2009 2:55 PM EDT - 09/11/2009 11:59 PM EDT Hospital Encounter HST PT Marcela Villanueva MD 09/05/2009 Telephone SEP [facility] [address] [place] [address] Germán Bradley MD Results 09/05/2009 Telephone SEP [facility] [address] [place] [address] Dustin Mcintyre MD Results 09/01/2009 12:01 AM EDT - 09/01/2009 11:59 PM EDT Hospital Encounter HST RADIOLOGY GRT Marcela Ding MD 08/26/2009 Telephone SEP [facility] [address] [place] [address] Germán Bradley MD Results 08/24/2009 3:04 PM EDT - 08/24/2009 11:59 PM EDT Hospital Encounter HST RADIOLOGY GRT Marcela Ding MD 08/24/2009 2:30 PM EDT Office Visit [facility] [address] [place] [address] Marcela Ding MD Shoulder pain (Primary Dx) 08/15/2009 Refill SEP [facility] [address] [place] [address] TorresNelda [facility] Medication Refill 07/25/2009 5:37 PM EDT - 07/25/2009 11:59 PM EDT Hospital Encounter HST SUWT EDG Dustin Mcintyre MD 07/25/2009 3:00 PM EDT Office Visit [facility] [address] [place] [address] Germán Bradley MD Rotator cuff syndrome; Epilepsy (HCC); Encounter for long-term (current) use of other medications 06/26/2009 8:46 AM EDT - 06/26/2009 11:59 PM EDT Hospital Encounter HST RADIOLOGY GRT Wang Ospina 06/15/2009 Telephone SEP [facility] [address] [place] [address] Germán Bradley MD Other 06/15/2009 2:00 PM EST Office Visit [facility] [address] [place] [address] Germán Bradley MD Shoulder pain; Bipolar affective disorder (HCC) 06/06/2009 Telephone SEP [facility] [address] [place] [address] Nelda Torres, BISQUE GRADER Seizures 05/30/2009 5:31 PM EST - 05/30/2009 11:59 PM EST Hospital Encounter HST EPIC CON UNK EDG Dustin Mcintyre MD 04/20/2009 Abstract SEP [facility] [address] [place] [address] [facility], Test [employer] Counselor Epilepsy (HCC); Bipolar affective disorder (HCC); Depression, major (HCC); Asthma; COPD (chronic obstructive pulmonary disease) ([facility]); Hearing loss in left ear; GERD (gastroesophageal [...] EST Emergency HST EPIC CON UNK GRT Kelsye Miller MD 06/03/2002 1:31 PM EST - [...] Hospital Encounter HST EPIC CON UNK EDG [facility] 05/26/1997 6:49 PM EST - 05/26/1997 11:59 PM EST Emergency HST MAJOR ER EDG Tunde Ty Monroy, 12/26/1996 7:54 PM EDT - 12/26/1996 11:59 PM EDT Hospital Encounter HST EPIC CON UNK COV [facility] 10/18/1996 5:34 PM EDT - 10/18/1996 11:59 PM EDT Emergency HST EPIC CON UNK EDG Augustine Baldwin MD 10/11/1996 10:10 AM EDT - 10/11/1996 12:10 PM EDT Hospital Encounter HST SAS Jaime Grover MD 03/13/1996 6:17 PM EST - 03/13/1996 11:59 PM EST Hospital Encounter HST EPIC CON UNK COV [facility] 01/21/1996 7:05 PM EDT - 01/21/1996 11:59 PM EDT Hospital Encounter HST EPIC CON UNK COV [facility] 01/01/1996 8:11 PM EDT - 01/06/1996 2:05 PM EDT Hospital Encounter HST BH2 Rosa Clark MD 12/26/1995 8:21 AM EDT - 12/26/1995 11:59 PM EDT Hospital Encounter HST EPIC CON UNK COV [facility] 10/26/1995 9:59 PM EDT - 10/30/1995 1:44 PM EDT Hospital Encounter HST BH2 Wang Rosales MD Cohen, Raymond L 10/12/1995 7:54 PM EDT - 10/12/1995 11:59 PM EDT Hospital Encounter HST EPIC CON UNK COV [facility] 10/04/1995 9:50 PM EDT - 10/07/1995 [...] 9 Active fluticasone (FLONASE) 50 mcg/actuation Nasl Worton, SuspensionIndicati ons:Chronic seasonal allergic rhinitis due to [...] Mother 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 Smoking Status as of 03/08/2025 Tobacco Use Types Packs/Day Years Used Date [...] on file Medical Devices Implanted Type Area Senior Sql Developer Device Identifier Shelf Expiration Date Model / Serial / Lot [place] Lupine Br W/Dual Suture Orthocord - [id number] Implanted:Qty : 1 on 01/18/2013 by Crow Love MD at [facility] Left: Shoulder J&J:ETHICON:MITE K PRDT [id number] 06/12/2015 [id number] / / [id number] [place] Lupine Br W/Dual Suture Orthocord - [id number] Implanted:Qty : 1 on 01/18/2013 by Crow Love MD at [facility] Left: Shoulder J&J:ETHICON:MITE K PRDT [id number] 06/11/2014 [id number] / / [id number] [place] Advance Healix 5.5 Br - [id number] Implanted:Qty : 1 on 06/20/2015 by Crow Love MD at [facility] Right: Shoulder J&J:ETHICON:MITE K PRDT 05/14/2017 [id number] / / [id number] Procedures Procedure Name Priority Date/Time Associated Diagnosis [...] meniscus of knee, current Special Needs FAX CPT;08006 [id number] POCT EKG Routine 06/08/2014 10:16 AM EST [...] AM EDT Chronic maxillary sinusitis Special Needs [facility] CPT; 83687/13268 HEPATIC FUNCTION PANEL Routine 4 11:31 AM [...] EDT Rotator cuff (capsule) sprain Special Needs CPT;38147 [id number] MRI SHOULDER LEFT WO CONTRAST Routine 12/25/2012 [...] 946 pg/mL 06/01/2018 4:11 PM EST [facility] Folate >16.00(H) 4.50 - 16.00 ng/mL 06/01/2018 4:11 PM EST [facility] Blood VENOUS BLOOD / Unknown Venipuncture / Unknown 06/01/2018 10:14 AM EST 06/01/2018 10:14 AM EST Narrative [facility] - 06/01/2018 4:11 PM EST Ingestion of roxanna doses of biotin (>5 mg/day) taken within 8 hours of drawing blood sample can interfere with this immunoassay test. us Dustin Mcintyre MD CHEMISTRY ORDERABLES F inal Result [facility] [address] [facility] , [place] [address] * TSH REFLEX (06/01/2018 10:14 AM EST) TSH Reflex 1.640 0.270 - 4.200 mcIU/mL 06/01/2018 3:53 PM EST [facility] Blood VENOUS BLOOD / Unknown Venipuncture / Unknown 06/01/2018 10:14 AM EST 06/01/2018 10:[address] [facility] [employer] [facility] - 06/01/2018 3:53 PM EST Ingestion of roxanna doses of biotin (>5 mg/day) taken within 8 hours of drawing blood sample can interfere with this immunoassay test. Dustin Mcintyre MD CHEMISTRY ORDERABLES F inal Result Performing Organization Address [facility] Co de Phone Number [facility] [address] [place] [address] , [place] [address] * (ABNORMAL) ACUTE HEPATITIS PANEL (06/01/2018 10:14 AM EST) Only the most recent of2 resultswithin the time period is included. Pathologist [facility] Hep Bs Ag Non-Reacti ve Non-Reacti ve 06/02/2018 11:57 AM EST [employer] [employer] [facility] Hep B Core IgM Non-Reacti ve Non-Reacti ve 06/02/2018 11:[address] [facility] Hep A IgM Non-Reacti ve Non-Reacti ve 06/02/2018 11:[address] [facility] Hep C Ab Reactive(A ) Non-Reacti ve 06/02/2018 11:57 AM EST [facility] Comment:Reactive. Antibodies to HCV detected. >97% of specimens with high signal cutoff confirm as reactive. HCV QUANT W/RFLX TO GENOTYPE -REF LAB Blood VENOUS BLOOD / Unknown Venipuncture / Unknown 06/01/2018 10:14 AM EST 06/01/2018 10:14 AM EST Dustin Mcintyre MD CHEMISTRY ORDERABLES F inal Result Performing Organization Address [facility] Co de Phone Number [facility] [employer] [address] , [place] [address] * (ABNORMAL) CBC WITH DIFF (06/01/2018 10:14 AM EST) Only the most recent of16 resultswithin the time period is included. Pathologist [facility] WBC 6.6 3.7 - 10.3 x10(3)/mcL 06/01/2018 [...] 3:19 PM EST [facility] [place] Percent 11.4 % 06/01/2018 3:19 PM EST [...] x10(3)/mcL 06/01/2018 3:19 PM EST [facility], [facility] Comment:Automated count of m etamyelocytes, myelocytes and promyelocytes. An absolute IG <0.1 is reported as 0.0. Lymph # 2.1 1.2 - 3.9 x10(3)/mcL 06/01/2018 3:19 PM EST [facility] [place] # 0.8 0.3 - 0.9 x10(3)/[facility] 06/01/2018 3:19 PM EST [facility] Eos# 0.3 0.0 - 0.5 x10(3)/[facility] 06/01/2018 3:19 PM EST [facility] Baso # 0.0 0.0 - 0.1 x10(3)/[facility] 06/01/2018 3:19 PM EST [facility] Blood VENOUS BLOOD / Unknown Venipuncture / Unknown 06/01/2018 10:14 AM EST 06/01/2018 10:14 AM EST Dustin Mcintyre MD HEMATOLOGY ORDERABLES Final Result Performing Organization Address [facility] Co de Phone Number [facility] [employer] [address] , [place] [address] * (ABNORMAL) PHENYTOIN LEVEL TOTAL (06/01/2018 10:14 AM EST) Only the most recent of20 resultswithin the time period is included. Dilantin 9.0(L) 10.0 - 20.0 mcg/mL 06/01/2018 3:51 PM EST [facility] Blood VENOUS BLOOD / Unknown Venipuncture / Unknown 06/01/2018 10:14 AM EST 06/01/2018 10:14 AM EST Dustin Mcintyre MD CHEMISTRY ORDERABLES F inal Result Performing Organization Address [facility] Co de Phone Number [facility] [employer], [address] , [place] [address] * (ABNORMAL) COMPREHENSIVE METABOLIC PANEL [...] mL/min/1.7 3 m2 06/01/2018 3:53 PM EST [facility] GFR Non Afr Am 96 >=60 mL/min/1.7 3 m2 06/01/2018 3:53 PM EST [facility] Comment: This estimated GFR was [...] CHEMISTRY ORDERABLES F inal Result [facility]ED [facility] [address] [facility], [place] [address] [facility] [address] [place] [address] * POCT URINALYSIS DIPSTICK (06/01/2018 9:40 AM EST) Only the most recent of4 resultswithin the time period is included. 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 SEP slunk skinner Grav, UA 1.025 1.001 - 1.035 G/DL SEP OFFICE Blood, UA neg POS/NEG SEP OFFICE pH, UA 6.0 5.0 - 8 SEP OFFICE Protein, UA neg POS/NEG SEP OFFICE Urobilinogen, UA 1+ 0.2 - 1.0 MG/DL SEP OFFICE Leukocytes, UA neg POS/NEG SEP OFFICE Nitrite, UA neg POS/NEG SEP OFFICE UA Appear POC SEP OFFICE Lot Number [id number] SEP OFFICE Expiration Date 12/22/2019 SEP OFFICE [...] mg/dL 12/05/2017 3:59 PM EDT [facility] Comment: < 200 Desirable 200 - 239 Borderline High >= 240 High Triglyceride 316(H) <=150 mg/dL 12/05/2017 3:59 PM EDT [facility] Comment: < 150 Normal 150 - 199 Borderline High 200 - 499 High >= 500 Very High HDL 33(L) >=40 mg/dL 12/05/2017 3:59 PM EDT [employer] [employer] [facility] Comment: > 60 Optimal 40 - 60 Acceptable < 40 Low LDL Calculated 111(H) <=100 mg/dL 12/05/2017 3:59 PM EDT [facility] Non-HDL-C Calculated 174(H) <=129 mg/dL 12/05/2017 3:59 PM EDT [employer] Comment: <130 Desirable 130-159 Above Desirable 160-189 Borderline High 190-219 High >= 220 Very High Blood VENOUS BLOOD / Unknown Venipuncture / Unknown 12/05/2017 9:03 AM EDT 12/05/2017 9:03 AM EDT us Germán Bradley MD CHEMISTRY ORDERABLES Final Re sult [facility], [facility] [address] [facility] , [address] [place] [id number] * DRUGS OF ABUSE, SCREEN ONLY, URINE (06/30/2017 10:59 PM EDT) Only the most recent of2 resultswithin the time period is included. 6 AM (Heroin) Absent Absent 06/30/2017 11:29 PM EDT [facility] Amphetamines Absent Absent 06/30/2017 11:29 PM EDT [facility] Barbiturates Absent Absent 06/30/2017 11:29 PM EDT [facility] Benzodiazepines Absent Absent 8 11:29 PM EDT [facility] Buprenorphine Absent Absent 06/30/2017 11:29 PM EDT [facility] Cannabinoid Metabolite Absent Absent 06/30/2017 11:29 PM EDT [facility] Cocaine Metabolite Absent Absent 2017 11:29 PM EDT [facility] Methadone and Metabolite Absent Absent 06/30/2017 11:29 PM EDT [facility] Opiate Absent Absent 06/30/2017 11:29 PM EDT [facility] Oxycodone Lvl Absent Absent 06/30/2017 11:29 PM EDT [facility] Phencyclidine Absent Absent 06/30/2017 11:29 PM EDT [facility] Creatinine Ur >25.0 mg/dL 06/30/2017 11:29 PM EDT [facility] Comment: Greater than 20: Consistent with valid sample Greater than 2 but less than 20: Possible dilution Less than 2: Questionable valid sample Urine STRUCTURE OF URINARY TRACT PROPER / Unknown 06/30/2017 10:59 PM EDT 06/30/2017 11:03 PM EDT Narrative [facility] - 06/30/2017 11:29 PM EDT [...] ORDERABLES Final Resul t Performing Organization Address [facility] de Phone Number [facility] [address] [place] [address] * EXTRA GOLD SST (06/30/2017 10:18 PM EDT) Blood VENOUS BLOOD / Unknown Venipuncture / Unknown 06/30/2017 10:18 PM EDT 06/30/2017 10:27 PM EDT Robbie Queen MD CHEMISTRY ORDERABLES Final Resul t Performing Organization Address [facility] Phone Number [facility] [address] [place] [address] * EXTRA LAVENDER (06/30/2017 10:18 PM EDT) Blood VENOUS BLOOD / Unknown Venipuncture / Unknown 06/30/2017 10:18 PM EDT 06/30/2017 10:27 PM EDT Robbie Queen MD HEMATOLOGY ORDERABLES Final Resu lt Performing Organization Address [facility] de Phone Number [facility] [address] [place] [address] * EXTRA LIGHT BLUE (06/30/2017 10:18 PM EDT) Only the most recent of2 resultswithin the time period is included. Blood VENOUS BLOOD / Unknown Venipuncture / Unknown 06/30/2017 10:18 PM EDT 06/30/2017 10:27 PM EDT Robbie Queen MD HEMATOLOGY ORDERABLES Final Resu lt Performing Organization Address [facility] Phone Number [facility] [address] [place] [address] * (ABNORMAL) ALCOHOL MEDICAL (06/30/2017 10:18 PM EDT) Only the most recent of2 resultswithin the time period is included. Alcohol Medical 36(H) <=10 mg/dL 06/30/2017 10:39 PM EDT [facility] Blood VENOUS BLOOD / Unknown Venipuncture / Unknown 06/30/2017 10:18 PM EDT 06/30/2017 10:26 PM EDT us Robbie Queen MD CHEMISTRY ORDERABLES Final Resul t Performing Organization Address [facility] de Phone Number [facility] [address] [place] [address] * ACETAMINOPHEN LEVEL (06/30/2017 10:18 PM EDT) Only the most recent of2 resultswithin the time period is included. Acetaminophen Lvl <15.0 mcg/mL 018 11:16 PM EDT [facility] Blood VENOUS BLOOD / Unknown Venipuncture / Unknown 06/30/2017 10:18 PM EDT 06/30/2017 10:27 PM EDT Narrative [facility] - 06/30/2017 11:16 PM EDT Therapeutic: 10-30 mcg/ml Supratherapeutic: > 35 mcg/ml Toxic: > 150 mcg/ml (4h post ingestion) > 75 mcg/ml (8h post ingestion) > 40 mcg/ml (12h post ingestion) us Holly Brannon APRN CHEMISTRY ORDERABLES Final R esult Performing Organization Address [facility] de Phone Number [facility] [address] [place] [address] * SALICYLATE LEVEL (06/30/2017 10:18 PM EDT) Only the most recent of2 resultswithin the time period is included. Salicylate <0.3 <=0.3 mg/dL 06/30/2017 11:16 PM EDT [facility] Blood VENOUS BLOOD / Unknown Venipuncture / Unknown 06/30/2017 10:18 PM EDT 06/30/2017 10:27 PM EDT us Holly Brannon SUPPLIER RELATIONSHIP DIRECTOR CHEMISTRY ORDERABLES Final R esult [facility] [address] [place] [address] * (ABNORMAL) BASIC METABOLIC PANEL (06/30/2017 10:18 PM EDT) Only the most recent of5 resultswithin the time period is included. Sodium 142 136 - 145 mmol/L 06/30/2017 11:16 PM EDT [facility] Potassium 4.1 3.5 - 5.0 mmol/L 06/30/2017 11:16 PM EDT [facility] Chloride 101 98 - 107 mmol/L 06/30/2017 11:16 PM EDT [facility] Total CO2 26 22 - 29 mmol/L 06/30/2017 11:16 PM EDT [facility] Anion Gap 15 7 - 16 mmol/L 06/30/2017 11:16 PM EDT [facility] Calcium 9.4 8.6 - 10.2 mg/dL 06/30/2017 11:16 PM EDT [facility] Glucose Lvl 115(H) 74 - 100 mg/dL 06/30/2017 11:16 PM EDT [facility] BUN 12 6 - 20 mg/dL 06/30/2017 11:16 PM EDT [facility] Creatinine 0.96 0.67 - 1.30 mg/dL 06/30/2017 11:16 PM EDT [facility] GFR Afr Am 110 mL/min/1.7 3 m2 06/30/2017 11:16 PM EDT [facility] GFR Non Afr Am 95 mL/min/1.7 3 m2 06/30/2017 11:16 PM EDT [facility] Comment: GFR Afr Am and [...] Brannon APRN CHEMISTRY ORDERABLES Final R esult [facility] [address] [place] [phone] * XR WRIST RIGHT PA LATERAL AND [...] days. IMPRESSION: Negative exam. us Gómez D Smiley SUPPLIER RELATIONSHIP DIRECTOR IMG DIAGNOSTIC IMAGING OR DERABLES Final Result [...] of fourth finger as described. Gómez Reis SUPPLIER RELATIONSHIP DIRECTOR IMG DIAGNOSTIC IMAGING OR DERABLES Final Result * EXTRA DORADO URINE CX (04/16/2017 1:05 AM EST) Urine URINE SPECIMEN COLLECTION, CLEAN CATCH / Unknown 04/16/2017 1:05 AM EST 04/16/2017 1:17 AM EST Jose Carlos Rasheed MD MICROBIOLOGY - GENERAL ORDERAB LES Final Result [facility] [address] [place] [address] * URINALYSIS (04/16/2017 1:05 AM EST) Only the most recent of3 resultswithin the time period is included. UA Color Yellow 04/16/2017 1:20 AM [facility] UA Appear Clear Clear 04/16/2017 1:20 AM EST [facility] UA Glucose Negative Negative mg/dL 04/16/2017 1:20 AM EST [facility] UA Ketones Negative Negative mg/dL 04/16/2017 1:20 AM EST [facility] UA Blood Negative Negative 04/16/2017 1:20 AM [facility] UA pH 6.0 5.0 - 8.0 pH 04/16/2017 1:20 AM [facility] UA Protein Negative Negative mg/dL 04/16/2017 1:20 AM [facility] UA Urobilinogen 0.2 <=1 E.U./dL 04/16/19 18 1:20 AM [facility] UA Nitrite Negative Negative 04/16/2017 1:20 AM [facility] UA Leuk Est Negative Negative 04/16/2017 1:20 AM [facility] UA Spec Grav 1.025 1.001 - 1.035 no units 04/16/2017 1:20 AM [facility] Comment: Reference range valid for random specimens only. Urine URINE SPECIMEN COLLECTION, CLEAN CATCH / Unknown 04/16/2017 1:05 AM EST 04/16/2017 1:17 AM EST Jose Carlos Rasheed MD URINE ORDERABLES Final Result [facility] [address] [place] [address] * LDL, CALCULATED (01/07/2017 10:30 AM EDT) Only the most recent of4 resultswithin the time period is included. Pathologist [facility] LDL Calculated 51 <=100 mg/dL [facility] Comment: < 100 Optimal 100 - 129 Near or above optimal 130 - 159 Borderline High 160 - 189 High >= 190 Very High Blood specimen (specimen) 01/07/2017 10:30 AM EDT 01/07/2017 3:48 PM EDT Dustin Mcnityre MD CHEMISTRY ORDERABLES F inal Result Performing Organization Address [facility] Co de Phone Number [facility] [address] [place] [address] * (ABNORMAL) DIFFERENTIAL (01/07/2017 10:30 AM EDT) Only the most recent of11 resultswithin the time period is included. Neut Percent 48.5 % [facility] Lymph Percent 34.1 % [facility] [place] Percent 9.2 % [facility] Eos Percent 6.9 % [facility] Baso Percent 1.3 % [facility] Neut# 3.9 1.8 - 7.7 x10(3)/mcL [facility] Lymph# 2.7 0.6 - 4.8 x10(3)/mcL [facility] Mcmullen# 0.7 0.0 - 1.3 x10(3)/[facility] Eos# 0.6(H) 0.0 - 0.5 x10(3)/[facility] Baso# 0.1 0.0 - 0.2 x10(3)/[facility] Blood specimen (specimen) 01/07/2017 10:30 AM EDT 01/07/2017 3:48 PM EDT Dustin Mcintyre MD HEMATOLOGY ORDERABLES Final Result Performing Organization Address [facility]/ZIP Co de Phone Number [facility] [address] [place] [address] * XR KNEE RIGHT AP LAT INT [...] AM EST) 05/06/2016 8:51 AM EST Impressions [facility] - 05/06/2016 8:51 [...] Germán Bradley MD PFT ORDERABLES Final Result [facility] [address] [place] [address] * POCT EKG (04/29/2016 2:23 PM EST) Only the most recent of4 resultswithin the time period is included. 04/29/2016 2:23 PM EST Impressions SEP OFFICE - 04/29/2016 2:23 PM EST nsr No ischemia Normal ekg Germán Bradley MD POINT OF CARE CARDIOLOGY Zayra l Result Performing Organization Address [facility]/ZIP Co de Phone Number SEP OFFICE * SYPHILIS SCREEN WITH REFLEX RPR QUANT (04/01/2016 4:37 PM EST) TREP(SYPHILIS) AB INDEX <0.10 <=1.09 Index Value [facility] Comment: <0.90 - Negative 0.90 to 1.00 - Equivocal Patients with equivocal results should be retested in 7-14 days. >=1.10 - Positive NOTE: All equivocal and positive results will be reflexed to Quantitative Non-Treponemal(RPR)test. Blood specimen (specimen) UPPER LIMB STRUCTURE / Unknown 04/01/2016 4:37 PM EST 04/01/2016 8:41 PM EST Germán Bradley MD CHEMISTRY ORDERABLES Final Re sult Performing Organization Address [facility]/[place] [address] * XR LUMBAR SPINE AP AND LATERAL [...] abnormality identified in the lumbar spine. Result [facility] Michelle Shirley MD [facility] [place]AG[place] ORDERABLE S Final Result * [facility] LOWER EXTREMITY VENOUS LEFT (06/23/2015 6:16 [...] right commonfemoral vein. Wang Harmon MD Result [facility] Elina Hall MD G VASCULAR ORDERABLES Fin al Result * SCANNED RHYTHM STRIPS (06/22/2015 11:55 PM EST) Only the most recent of3 resultswithin the time period is included. Anatomical Region Laterality Modality Other 06/22/2015 11:5 5 PM EST Result [facility] Unknown Unknown IM ECG ORDERABLES Final Result * PERIPHERAL BLOCK (06/20/2015 7:47 AM EST) Narrative [facility] - 06/20/2015 7:47 [...] none Heart rate change: no us Jerson aCn DO ANESTHESIA ORDERABLES Valerio bill Result - Final Performing Organization Address [facility] [place] [address] * LDL DIRECT (04/20/2015 9:44 AM EST) Only the most recent of5 resultswithin the time period is included. LDL Direct 65 <=100 mg/dL [facility] Comment: < 100 Optimal 100 - 129 Near or above optimal 130 - 159 Borderline High 160 - 189 High >= 190 Very High Blood specimen (specimen) 04/20/2015 9:44 AM EST 04/20/2015 3:48 PM EST us Germán Bradley MD CHEMISTRY ORDERABLES Final Re sult Performing Organization Address [facility] Co de Phone Number [facility] [address] [place] [address] * MRI SHOULDER RIGHT WO CONTRAST (03/22/2015 [...] changeswithout undersurface spur. Dustin Mcintyre MD [facility] [place] ORDERABLES Fin al Result * CBC (11/04/2014 10:36 AM EDT) Only the most recent of4 resultswithin the time period is included. WBC 7.2 4.0 - 11.0 x10(3)/mcL [facility] RBC 4.86 4.30 - 5.81 x10(6)/mcL [facility] Hgb 16.1 13.5 - 17.1 gm/dL [facility] Hct 47.6 38.9 - 51.6 % [facility] MCV 97.9 82.5 - 99.8 fL [facility] MCH 33.1 27.0 - 34.3 pg [facility] MCHC 33.8 32.1 - 35.3 gm/dL [facility] RDW 13.6 11.5 - 15.0 % [facility] Platelet 211 144 - 423 x10(3)/mcL [facility] MPV 9.2 6.8 - 10.8 fL [facility] Blood specimen (specimen) UPPER LIMB STRUCTURE / Unknown 11/04/2014 10:36 AM EDT 11/04/2014 4:05 PM EDT us Dustin Mcintyre MD HEMATOLOGY ORDERABLES Final Result Performing Organization Address City/State/[facility] Co de Phone Number [facility] [address] [place] [address] * SCANNED PATHOLOGY REPORT (09/20/2014 5:07 PM [...] AM EST 03/08/2014 3:39 PM EST Narrative [facility] - 03/16/2014 8:03 AM EST [employer]-See attached Fax to [phone] us Los Gordon MD HEMATOLOGY ORDERABLES Edited Result - Final [facility] [address] [place] [address] * SCANNED PRE/POST PROCEDURES (02/08/2014 1:26 AM [...] Report Accession Number Collected Date/Time Received Date/Time [id number] 02/04/14 08:20 EDT 02/04/14 12:54 EDT Diagnosis [...] performed and the findings corroborate the diagnosis. [facility] 02/04/2014 8:2 0 AM EDT us Los Gordon MD PATHOLOGY ORDERABLES Final R esult [facility] [address] [place] [address] * FUNGUS CULTURE-OTHER (02/04/2014 8:00 AM EDT) Final No growth of fungus at 4 weeks [facility] Specimen from nose (specimen) NASAL STRUCTURE / Unknown 02/04/2014 8:00 AM EDT 02/04/2014 10:08 AM EDT Comment:LEFT MAX SINUS SWAB Narrative [facility] - 03/04/2014 4:01 PM EST Aerobic, anaerobic, fungus culture from left maxillary sinus Los Gordon MD MICROBIOLOGY - GENERAL ORDER MK Final Result Performing Organization Address [facility] Co de Phone Number [facility] [address] [place] [address] * WOUND CULTURE (02/04/2014 8:00 AM EDT) GS No slide sent/smear made after culture inoculated Rare WBC's Rare RBC's Rare Gram positive cocci [facility] Final Moderate growth of Staphylococcus aureus Sparse growth of Coagulase negative staphylococci No further workup Moderate growth of beta hemolytic Streptococci suspect Streptococcus anginosus group No further workup [facility] Organism Staphylococcus aureus [facility] Specimen from nose (specimen) NASAL STRUCTURE / Unknown 02/04/2014 8:00 AM EDT 02/04/2014 10:08 AM EDT Comment:LEFT MAX SINUS SWAB Narrative [facility] - 02/07/2014 9:08 [...] MICROBIOLOGY - GENERAL ORDER MK Final Result [facility] [address] [place] [address] * ANAEROBIC CULTURE (02/04/2014 8:00 AM EDT) Final No anaerobic growth at 5 days [facility] Specimen from nose (specimen) NASAL STRUCTURE / Unknown 02/04/2014 8:00 AM EDT 02/04/2014 10:08 AM EDT Comment:LEFT MAX SINUS SWAB Narrative [facility] - 02/10/2014 5:01 PM EDT Aerobic, anaerobic, fungus culture from left maxillary sinus Los Gordon MD MICROBIOLOGY - GENERAL ORDER MK Final Result Performing Organization Address [facility] Co de Phone Number [facility] [address] [place] [address] * HEPATIC FUNCTION PANEL (01/24/2014 11:31 AM EDT) Only the most recent of2 resultswithin the time period is included. Total Protein 6.8 6.4 - 8.3 gm/dL [facility] Albumin 4.2 3.5 - 5.2 gm/dL [facility] Bili Direct <0.2 0.0 - 0.3 mg/dL [facility] Bili Total 0.1 0.1 - 1.4 mg/dL [facility] AST 40 <=40 IU/L [facility] ALT 38 <=41 IU/L [facility] Alk Phos 106 40 - 129 IU/L [facility] Blood specimen (specimen) UPPER LIMB STRUCTURE / Unknown 01/24/2014 11:31 AM EDT 01/24/2014 2:38 PM EDT us Koffi Jay MD CHEMISTRY ORDERABLES Edited R esult - Final Performing Organization Address City/[facility] Co de Phone Number [facility] [address] [place] [address] * XR WRIST LEFT PA LATERAL AND [...] the medial femoral condyle. 2. Intact menisci. us Dustin Mcintyre MD IMG MRI ORDERABLES Fin al Result * PROSTATE SPECIFIC ANTIGEN (SCREENING) (10/25/2013 10:12 AM EDT) Total PSA 0.66 ng/mL [facility] Comment: 2008 [facility] Best Practice Statement Guidelines-Age Adjusted Reference Intervals: Age Range Whites Americans Americans 40-49 years 0-2.5 ng/mL 0-2.0 ng/mL 0-2.0 ng/mL 50-59 years 0-3.5 ng/mL 0-4.0 ng/mL 0-3.0 ng/mL 60-69 years 0-4.5 ng/mL 0-4.5 ng/mL 0-4.0 ng/mL 70-79 years 0-6.5 ng/mL 0-5.5 ng/mL 0-5.0 ng/mL [facility] uses the [employer] Total PSA assay, which is approved as [...] Mcintyre MD CHEMISTRY ORDERABLES F inal Result [facility] [address] [place] [address] * MRI BRAIN W WO CONTRAST (07/23/2013 [...] be called to his cell phone at [phone]. This call was not made by radiology. [...] results be called to his cell phone [phone]. This call was not made by radiology. Richards Germán Bradley MD [facility] [place] [place] ORDERA BLES [...] IMPRESSION: Negative exam. Mariaelena Rossi MD [facility] [place] ORDER MK [...] orTMJ disc problems. Germán Bradley MD [facility] [place]AGING ORDERA BLES Final Result * HEMOGLOBIN A1C (12/19/2010 11:00 AM EDT) Hgb A1c 5.3 <=7.0 % [facility] Comment: Initial Diagnostic Criteria < 5.7 % Normal 5.7 - 6.4 % At risk for diabetes mellitus >= 6.5 % Consistent with diabetes mellitus Diabetes monitoring Target Value (ADA recommended): < 7 % Blood specimen (specimen) UPPER LIMB STRUCTURE / Unknown 12/19/2010 11:00 AM EDT 12/19/2010 4:04 PM EDT us Germán Bradley MD CHEMISTRY ORDERABLES Final Re sult [facility] [address] [place] [address] * XR ANKLE RIGHT AP LATERAL AND [...] EDT) H pylori IgG 0.44 Index Value [facility] Comment: I.V. = [...] ORDERABLES Final R esult Performing Organization Address City/State/[facility] Co de Phone Number [facility] [address] [place] [address] * SCANNED EKG (11/06/2009 12:00 AM EDT) Anatomical Region Laterality Modality Other Narrative 11/06/2009 9:16 AM EDT Ordered by an unspecified provider. Transcriptions Unknown, Unknown - 11/06/2009 5:12 AM EDT us Unknown Unknown IMG ECG ORDERABLES Final Result * TROPONIN-I (11/05/2009 12:01 AM EDT) Troponin-I 0.01 ng/mL [facility] Comment: Note: New [...] Griffiths DO CHEMISTRY ORDERABLES Final Re sult [facility] [address] [place] [address] * XR CHEST PORTABLE GC (11/04/2009 11:28 [...] normal limits. IMPRESSION- Normal portable chest . Rehab Services Aide- ALBERT CRAIG MD Reading Physician- ALBERT CRAIG [...] normal limits. IMPRESSION- Normal portable chest . Rehab Services Aide- ALBERT CRAIG MD Reading Physician- ALBERT CRAIG MD Released Date Time- 11/04/09 2352 Ty Griffiths DO IMG [facility] STAR RAD HISTORICAL F inal Result * (ABNORMAL) PHENOBARBITAL LEVEL (11/04/2009 11:27 PM EDT) Phenobarbital Lvl <3.0(L) 15.0 - 40.0 mcg/mL [facility] Blood specimen (specimen) 11/04/2009 11:27 PM EDT 11/05/2009 6:47 PM EDT Ty Griffiths DO CHEMISTRY ORDERABLES Final Re sult [facility] [address] [place] [address] * EK EKG REG GC (11/04/2009 11:02 PM EDT) Only the most recent of3 resultswithin the time period is included. Anatomical Region Laterality Modality Other 11/04/2009 11:0 2 PM EDT Narrative 11/06/2009 2:48 PM EDT Sinus bradycardia Normal ECG except for rate Uli FOY Released Date Time- 11/06/09 1448 Procedure Note Ty Foy - 11/06/2009 Sinus bradycardia Normal ECG except for rate Rehab Services Aidedamaso Healy Physician- TY FOY Released Date Time- 11/06/09 1448 Ty Griffiths DO [facility] STAR CARD HISTORICAL Final Result * [...] 3. Degenerative changes of the AC joint. Uli Gandara- MEMO TONG M.D. Released Date [...] 3. Degenerative changes of the AC joint. Rehab Services Aide- LISSETTE Healy Physician- MEMO TONG M.D. Released Date Time- 09/01/09 1124 Marcela Ding MD [facility] GARRICK Thomas Final Result * XR [...] radiographically on the right than the left. Rehab Services Aide- KELSEY Healy Physician- MEMO TONG M.D. Released [...] radiographically on the right than the left. Rehab Services Aide- KELSEY Healy Physician- MEMO TONG M.D. Released Date Time- 08/24/091914 us Marcela Ding MD IMG [facility] RAD HISTORICA L Final Result * SCANNED ECG (08/03/2009 [...] Diffuse cerebellar hemisphere atrophy of uncertain etiology. Rehab Services Aide- RADHA Healy Physician- CEASAR MARROQUIN MD Released [...] Diffuse cerebellar hemisphere atrophy of uncertain etiology. Rehab Services Aide- RADHA CEE Reading Physician- CEASAR MARROQUIN MD Released Date Time- 06/26/09 1604 Wang Ospina [facility] STAR RAD HISTORICAL Fin al Result [...] medial meniscus, also apparent on plain films. GS Rehab Services Aide- PETTY LEVIN Reading Physician- LEONARDO PUCKETT MD [...] medial meniscus, also apparent on plain films. Rehab Services Aide- PETTY Healy Physician- LEONARDO PUCKETT MD Released Date Time- 09/19/082050 Germán Bradley MD [facility] HISTORICAL F inal Result * XR LOWER LEG TIBIA/FIBULA GC (09/09/2008 1:55 PM EDT) Anatomical Region Laterality Modality Other 09/09/2008 1:55 PM EDT Narrative 09/09/2008 6:39 PM EDT Examinations of the left tibia and fibula Indications- Pain. History- Pain. Two views of the left tibia and fibula demonstrate no fractures. There are no malalignments. The cortical margins are intact. Impression- No fractures. Rehab Services Aide- PETTY LIVINGSTON Reading Physician- MEMO TONG M.D. Released Date Time- 09/09/081949 Procedure Note Memo Tong - 06/22/2009 Examinations of the left tibia and fibula Indications- Pain. History- Pain. Two views of the left tibia and fibula demonstrate no fractures. There are no malalignments. The cortical margins are intact. Impression- No fractures. Rehab Services Aide- PETTY Healy Physician- MEMO TONG M.D. Released Date Time- 09/09/081949 Germán Bradley MD [facility] HISTORICAL F inal Result * XR [...] If so, MRI evaluation may be warranted. Rehab Services AideJenni Healy Physician- MEMO TONG M.D. Released Date [...] If so, MRI evaluation may be warranted. Rehab Services Aide- PETTY Healy Physician- MEMO TONG M.D. Released Date Time- 09/09/081949 Germán Bradley MD [facility] STAR RAD HISTORICAL F inal Result [...] The diary was blank. Carolina Campbell 12-04-07 Rehab Services Aide- RICK Healy Physician- ISAC BALLARD MD Released [...] The diary was blank. Carolina Campbell 12-04-07 Rehab Services Aide- RICK Healy Physician- ISAC BALLARD MD Released Date Time- 12/04/07 1013 Finesse Moore MD [facility] CARD HISTORIC AL Final Result * XR KNEE (04/02/2007 4:00 PM EST) Anatomical Region Laterality Modality Other 04/02/2007 4:00 PM EST Narrative 04/02/2007 4:26 PM EST PER /JESÚS RM7 Left knee 4 views, 04/02/2007 History- Pain following a twisting injury. Findings- There is no acute fracture or subluxation. Joint spaces and articular margins are intact. No definite joint effusion. Impression- Normal. Rehab Services Aide- JANA SARKAR Reading Radiologist- PINO ALBARADO Released Date Time- 04/02/07 1633 Procedure Note Pino Albarado - 06/21/2009 PER /JESÚS RM7 Left knee 4 views, 04/02/2007 History- Pain following a twisting injury. Findings- There is no acute fracture or subluxation. Joint spaces and articular margins are intact. No definite joint effusion. Impression- Normal. Rehab Services Aide- JANA SARKAR Reading Radiologist- PINO ALBARADO Released Date Time- 04/02/07 1633 us David Palma MD [facility] HISTORICAL F inal Result * XR [...] Impression- No fracture or dislocation, ankle joint. Rehab Services Aide- DALE VELÁSQUEZ Reading Radiologist- RADHA PORTER MD. Released Date Time- 01/01/06 0914 Procedure Note Radha Porter - 06/21/2009 Three-view right ankle- 12/31/2005 Indication- 35-year-old male with unspecified right ankle injury and pain. Findings- There is mild soft tissue thickness over both medial and lateral malleoli. No cortical disruptions or fracture planes seen. Mortise joint is intact. Impression- No fracture or dislocation, ankle joint. Rehab Services Aide- DALE VELÁSQUEZ Reading Radiologist- RADHA PORTER MD. Released Date Time- 01/01/06913 Robbie Eldridge MD [facility] HISTORICAL Fi nal Result * XR [...] soft tissue swelling. Impression- 1. Negative exam. Rehab Services Aide- ANGELA SMITH Reading Radiologist- RADHA PORTER MD. [...] soft tissue swelling. Impression- 1. Negative exam. Rehab Services Aide- ANGELA SMITH Reading Radiologist- RADHA PORTER MD. Released Date Time- 01/01/06913 Robbie Eldridge MD [facility] [place] [facility] HISTORICAL Fi nal Result * XR SCAPULA [...] fracture is identified. Dustin Mcintyre MD [facility] [place] [employer] HISTO RICAL Final Result * XR NOSE [...] The septum is midline. Dustin Mcintyre MD [facility] STAR RAD HISTO RICAL Final Result [...] Lifestyle No Radha Urbina CCMA Care Teams Trap Operator Relationship Specialty Start Date End Date Robbie Putnam MD [address] [place] [facility] [address] [place] [id number] PCP - General Family Medicine 02/07/20
[2025-03-08 11:29] LABS: Bilirubin,Urine Negative (Negative); Color,Urine YELLOW (Yellow); Glucose,Urine (UA) Negative (Negative); Ketones,Urine Negative (Negative); Leukocyte Esterase,Urine Negative (Negative); PH,Urine 6.0 (5.0-8.5); Protein,Urine Negative (Negative); Specific Gravity, Urine 1.015 (1.005-1.030); Urobilinogen,Urine 0.2 EU/dl (0.2)
--- NOTE | 2025-03-08 11:46 | ED_ITS ---
Discharge Plan Disposition Patient Disposition: Home, Self-Care Prescriptions Prescriptions: No Action polyethylene glycol 3350 [Miralax] 17 gram powder in packet 17 g PO DAILY Qty: 30 0RF olanzapine 7.5 mg tablet 7.5 mg PO BID omega 8-hpw-sjh-fish oil [Fish Oil] 300-1,000 mg capsule 2 cap PO DAILY methocarbamol 750 mg tablet 750 mg PO Q8H Qty: 30 0RF duloxetine 60 mg capsule,delayed release(DR/EC) 60 mg PO DAILY Qty: 90 3RF esomeprazole magnesium 40 mg capsule,delayed release(DR/EC) See Rx Instructions .ROUTE .COMPLEX Qty: 90 2RF Dose Instruction: TAKE ONE CAPSULE BY MOUTH EVERY DAY FOR GERD Rx Instructions: TAKE ONE CAPSULE BY MOUTH EVERY DAY FOR GERD meloxicam 15 mg tablet See Rx Instructions .ROUTE .COMPLEX Qty: 90 2RF Dose Instruction: TAKE ONE TABLET BY MOUTH EVERY DAY --TAKE WITH FOOD-- Rx Instructions: TAKE ONE TABLET BY MOUTH EVERY DAY --TAKE WITH FOOD-- cetirizine 10 mg tablet See Rx Instructions .ROUTE .COMPLEX Qty: 90 2RF Dose Instruction: TAKE ONE TABLET BY MOUTH EVERY DAY Rx Instructions: TAKE ONE TABLET BY MOUTH EVERY DAY azelastine 137 mcg (0.1 %) spray,non-aerosol See Rx Instructions .ROUTE .COMPLEX Qty: 30 5RF Dose Instruction: USE 1 SPRAY in each nostril twice daily as directed Rx Instructions: USE 1 SPRAY in each nostril twice daily as directed Trelegy Ellipta 100-62.5-25 mcg blister with device See Rx Instructions .ROUTE .COMPLEX Qty: 60 2RF Dose Instruction: INHALE 1 PUFF BY MOUTH EVERY DAY FOR copd Rx Instructions: INHALE 1 PUFF BY MOUTH EVERY DAY FOR copd buspirone 10 mg tablet See Rx Instructions .ROUTE .COMPLEX Qty: 90 2RF Dose Instruction: TAKE ONE TABLET BY MOUTH THREE TIMES DAILY FOR ANXIETY Rx Instructions: TAKE ONE TABLET BY MOUTH THREE TIMES DAILY FOR ANXIETY fluticasone propionate 50 mcg/actuation spray,suspension See Rx Instructions .ROUTE .COMPLEX Qty: 48 3RF Dose Instruction: INSTILL ONE SPRAY IN EACH NOSTRIL EVERY DAY Rx Instructions: INSTILL ONE SPRAY IN EACH NOSTRIL EVERY DAY atorvastatin 40 mg tablet 40 mg PO HS Qty: 90 3RF phenytoin sodium extended 100 mg capsule See Rx Instructions .ROUTE .COMPLEX Qty: 150 0RF Dose Instruction: TAKE TWO CAPSULES BY MOUTH TWICE DAILY AND TAKE ONE CAPSULE BY MOUTH AT LUNCHTIME Rx Instructions: TAKE TWO CAPSULES BY MOUTH TWICE DAILY AND TAKE ONE CAPSULE BY MOUTH AT LUNCHTIME pregabalin [Lyrica] 50 mg capsule 50 mg PO DAILY Qty: 30 0RF albuterol sulfate 90 mcg/actuation HFA aerosol inhaler See Rx Instructions .ROUTE .COMPLEX Qty: 8.5 6RF Dose Instruction: INHALE 4 puffs BY MOUTH EVERY 4 HOURS FOR 48 hours NEEDED SHORTNESS OF BREATH OR wheezing, THEN USE NEEDED Rx Instructions: INHALE 4 puffs BY MOUTH EVERY 4 HOURS FOR 48 hours NEEDED SHORTNESS OF BREATH OR wheezing, THEN USE NEEDED albuterol sulfate 2.5 mg /3 mL (0.083 %) solution for nebulization 2.5 mg INHALATION Q6H PRN (Reason: shortness of breath or wheezing) Qty: 180 5RF acetaminophen 500 mg capsule 500 mg PO Q6H PRN (Reason: pain) Qty: 30 0RF ibuprofen 800 mg tablet 800 mg PO Q8H Qty: 30 0RF Referrals Follow up/Referrals: Robbie Galindo MD [Staff Physician, Urology] - See instructions Femi David DO [Primary Care Provider, Family Practice] - See instructions Activity Restrictions/Add. Instructions Additional Instructions/Restrictions: There was no evidence today of any gross or microscopic hematuria on your evaluation or laboratory test. If this returns please follow-up with Dr. Galindo our urologist. You may return to the emergency room with any other concerns as well. Clinical Impressions Clinical Impression: Hematuria Instructions Patient Instructions: DI for Urinary Tract Infection (UTI), DI for Urinary Tract Infection in Children Print Language Print Language: Tamazight Discharge ED Provider: Kaylin Chen General Adult HPI General Chief complaint: Urogenital-Male Stated complaint: bleeding from penis Time Seen by Provider: 03/08/25 11:09 Mode of Arrival: Ambulatory Source of Information: Patient Description of Symptoms (Recalled from ER Triage Doc. by RN): patient states he has bleeding and burning from his urethra intermittently. he also reports abdominal pain around his umbilicus. History of Present Illness HPI narrative: Patient is a 54-year-old male presenting primarily today with what he describes as bleeding from his penis. Initially stated that this was painless to the nursing staff however told me he does have some discomfort with urination. This been ongoing for the last 2 weeks. Has not been sexually active in over 2 years. Denies any significant abdominal pain to me. Related Data Home Medications ?Medication ?Instructions ?Recorded ?Confirmed olanzapine 7.5 mg tablet 7.5 mg PO BID 02/23/2503/07 omega 8-kci-han-fish oil 300 2 cap PO DAILY 02/23/25 1 05/07/24 mg-1,000 mg capsule (Fish Oil) Previous Rx's ?Medication ?Instructions ?Recorded duloxetine 60 mg capsule,delayed 60 mg PO DAILY #90 ca ps 04/20/24 release esomeprazole magnesium 40 mg See Rx Instructions .Rout e 05/20/24 capsule,delayed release .COMPLEX #90 caps meloxicam 15 mg tablet See Rx Instructions .Route 0 07/14/24 .COMPLEX #90 tabs azelastine 137 mcg (0.1 %) nasal See Rx Instructions . Route 08/16/24 spray .COMPLEX #30 mL cetirizine 10 mg tablet See Rx Instructions .Route 0 08/16/24 .COMPLEX #90 tabs fluticasone fur. 100 mcg-umeclid See Rx Instructions . Route 09/20/24 62.5 mcg-vilant 25 mcg .COMPLEX #60 blisters inhalat.powder (Trelegy Ellipta) atorvastatin 40 mg tablet 40 mg PO HS #90 tabs 5 buspirone 10 mg tablet See Rx Instructions .Route 0 12/16/24 .COMPLEX #90 tabs fluticasone propionate 50 See Rx Instructions .Route 0 12/16/24 mcg/actuation nasal .COMPLEX #48 mL spray,suspension polyethylene glycol 3350 17 gram 17 g PO DAILY #30 ea 01/04/25 oral powder packet (Miralax) acetaminophen 500 mg capsule 500 mg PO Q6H PRN pain #3 0 caps 01/24/25 ibuprofen 800 mg tablet 800 mg PO Q8H #30 tabs 01/24 phenytoin sodium extended 100 mg See Rx Instructions . Route 02/10/25 capsule .COMPLEX #150 caps pregabalin 50 mg capsule (Lyrica) 50 mg PO DAILY #30 c aps 02/15/25 methocarbamol 750 mg tablet 750 mg PO Q8H #30 tabs 04/07 albuterol sulfate 2.5 mg/3 mL 2.5 mg (3 mL) inhalation Q6H PRN 03/07/25 (0.083 %) solution for nebulization shortness of breat h or wheezing #180 mL albuterol sulfate 90 mcg/actuation See Rx Instructions .Route 03/07/25 aerosol inhaler .COMPLEX #8.5 grams Allergies Allergy/AdvReac Type Severity Reaction Status Date / Time nickel Allergy Mild Rash Verified 03/07/25 07:59 alprazolam (From Xanax) Allergy Agitated Verified 03/07/25 07:59 diazepam (From Valium) Allergy Agitated Verified 03/07/25 07:59 fluoxetine (From Prozac) Allergy Unknown Verified 03/07/25 07:59 allergy reaction [facility] Dis[facility]: The information contained in this section may have been updated after the patient was seen, as this information can be updated by other users. 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 (Updated 03/08/25 @ 11:45 by Kaylin Chen MD) Injury of right ring finger Trigger point Suicidal ideation Preoperative evaluation to rule out surgical contraindication Pain, wrist Acute exacerbation of chronic obstructive pulmonary disease Pulmonary emphysema Tobacco abuse counseling Tobacco abuse Smoking greater than 30 pack years COPD mixed type Tear of lateral meniscus of left knee Pes anserinus bursitis of left knee Chest pain Pain in wrist Epididymitis Acute exacerbation of chronic obstructive pulmonary disease Acute exacerbation of chronic obstructive pulmonary disease General weakness Abnormal x-ray of knee Left knee pain COPD exacerbation Encounter for medical assessment Trigger finger of right hand Popping of right knee joint Family history of cancer Encounter for screening colonoscopy Lesion of penis Right hand pain Orchalgia Laceration of ear lobe Elevated liver function tests Medial epicondylitis of left elbow Finger fracture, right UTI (urinary tract infection) Nausea & vomiting Throat pain in adult Trichomonas contact Abdominal pain Nausea Contusion of right elbow Nasal bone fracture Sinusitis Jaundice Bilateral shoulder pain Shoulder pain, left Hand fracture, right Hand pain, right Contusion Elbow contusion Sting, insect Chronic chest pain Superficial skin lesion Hemorrhoids Left wrist sprain Acute flank pain URI (upper respiratory infection) Left elbow pain Ankle pain Atypical chest pain Bursitis of left elbow Vomiting Rib pain on right side Seizure-like activity Acute exacerbation of chronic obstructive airways disease Acute and chronic respiratory failure with hypoxia Scalp abrasion Subtherapeutic serum dilantin level Pharyngitis Testicular pain, right Mid back pain Chest pain Chronic groin pain Otitis media Shortness of breath Encounter for medical assessment Acute bacterial sinusitis Pharyngitis Nasal polyp Influenza A Migraine HTN (hypertension), benign HLD (hyperlipidemia) Depression Asthma Anxiety Upper respiratory infection Pneumonia Schizophrenia Hepatitis B Seizure disorder Chronic obstructive pulmonary disease GERD (gastroesophageal reflux disease) 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 (Updated 03/07/25 @ 13:07 by Livier Osborn) History of carpal tunnel release of both wrists History of laparoscopic cholecystectomy History of nasal surgery H/O vasectomy History of arthroscopy of right shoulder History of arthroscopy of left shoulder H/O arthroscopy of right knee Family History Other Cancer Family history of seizures 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 (Updated 03/07/25 @ 13:11 by Livier Osborn) Smoking Status: Current every day smoker tobacco type: cigarettes packs per day: 1 second hand exposure: No alcohol intake: current alcohol intake frequency: a few times a month substance use type: former substance user, marijuana, crack/cocaine, painki llers and methamphetamine current occupational status: disabled Travel in the last 8 weeks?: None household members: other housing: house marital status: number of children: 2 current occupational exposures/hazards: No caffeine: Yes Have you lived/traveled outside [place] in past 30 days?: No Contact w/someone who lives/traveled outside [place] past 30 days?: No Exposure to someone with infectious disease in past 14 days?: No Do you have a fever (greater than 100.4 F or 38 C)?: No Have you tested positive for COVID-19?: No Exposed to someone with COVID-19 in past 14 days?: No Do you have a sore throat?: No Do you have a cough?: No Do you have any weakness?: No Do you have any diarrhea?: No Are you experiencing any unusual bleeding?: No Do you have any muscle aches/pain?: No Do you have any abdominal pain?: No Are you experiencing loss of taste or smell?: No Other 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 Have you received the Flu Vaccine for this season: No Have you received the Pneumonia Vaccine: No ROS Obtained: Yes All systems reviewed & no additional complaints except as documented Physical Exam General General appearance: alert Respiratory Respiratory exam: Present normal lung sounds bilaterally Cardiovascular Cardiovascular exam: Present regular rate Abdominal Exam Abdominal exam: Present soft; Absent distention or tenderness exam: Present normal inspection Neurological Exam Neurological exam: Present alert and oriented X3 Medical Decision Making Medical Records Screening: Per USPSTF and CDC recommendations, given the prevalence of disease in our region, it is our hospital?s policy to screen for HIV and viral Hepatitis for all patients aged 18 and over and those with ongoing risk factors. Krishna Inquiry Pt receiving controlled substance: No Vital Signs: 03/08/25 11:14 Temperature 98.3 F Temperature Source Oral Pulse Rate [Right Radial] 67 Respiratory Rate 15 Blood Pressure [Right Arm] 148/90 H Blood Pressure Mean [Right Arm] 109 Blood Pressure Source [Right Arm] Automatic Cuff Blood Pressure Position [Right Arm] Supine 02 Sat by Pulse Oximetry 98 Oxygen Delivery Method Room Air Lab Data Lab results reviewed: Yes I reviewed the patient's lab results. Lab Results 03/08/25 11:10: Urine Color Yellow, Urine Appearance Clear, Urine pH 6.0, Ur Specific [place] 1.015, Urine Protein Negative, Urine Glucose (UA) Negative, Urine Ketones Negative, Urine Blood Negative, Urine Nitrate Negative, Urine Bilirubin Negative, Urine Urobilinogen 0.2, Ur Leukocyte Esterase Negative, Urine RBC None, Urine WBC Occasional, Ur Squamous Epith Cells Occasional, Urine Bacteria Trace Orders (Tests/Meds): ORDERS Category Date Time Status POCUS Point of Care (ER Only) Stat Exams 03/08/25 11:39 Ordered HIV Combo Stat Lab 03/08/25 11:21 Ordered UA [Urinalysis and Microscopic] Stat Lab 03/08/25 11:10 Completed Medical Decision Narrative: Patient is a 54-year-old presents today with hematuria from a gross examination of his urine and there was no obvious gross hematuria. Will obtain a urinalysis. He is seemingly very low risk from an STD standpoint as he has been not sexually active for several years will not order GC and chlamydia at this point. He has no significant testicular discomfort or abnormalities to be concerning for testicular torsion at [facility]. Will defer any type of ultrasound. The external aspect of his penis was normal in appearance no ulcerations etc. Abdominal exam was benign and bedside ultrasound not yield any obvious mass. Will see the microscopic evaluation of his urinalysis and reassess likely have him follow-up outpatient with urology. Reassessment 1201 urinalysis has returned without any abnormality specifically no evidence of any blood. So patient from a urinalysis and gross examination standpoint has no evidence of any blood. His exam is normal as stated above he has been given urology follow-up if this returns and he is concerned otherwise he may return to the emergency room with any worsening of his symptoms. No emergent medical condition identified at the moment. Procedures Miscellaneous Procedure Procedure Performed: Limited renal ultrasound Indication: A focused ultrasound of the kidneys was performed to evaluate for hydronephrosis and nephrolithiasis. The ultrasound was performed with the following indications, as noted in the H&P: [-Abdominal pain -Flank pain -Back pain -Groin pain -Hematuria -Acute renal failure -Anuria] Identified structures: [-R kidney - L kidney - Both kidneys] [-Bladder] Findings: Bilateral kidneys appear normal without evidence of hydronephrosis also no evidence of obvious mass in bilateral kidneys or bladder no significant debris in the bladder Impression: Unremarkable limited ultrasound of the kidneys and bladder Images were saved to permanent archive The study was technically adequate CPT: 13977-65 This study was performed by me, and I personally interpreted all images/videos. Based on my clinical judgement, these images were adequate and did not necessitate further imaging. Critical Care Critical Care Time Critical Care Time: No
[2025-03-08 11:51] LABS: WBC,Urine Occasional #/hpf (0-3)
[2025-03-08 11:52] LABS: Bacteria,Urine Trace /lpf; Squamous Epithelial Cell,Urine Occasional #/hpf (0-5)
[2025-03-08 12:08] VITALS: BP 148/90; PULSE 67; RESP 18; TEMP 36.8; O2SAT 98
== END 2025-03-08 12:09 | disposition home or self-care (01) ==
PROVIDERS: Emergency Provider Student in an Organized Health Care Education/Training Program; PCP Student in an Organized Health Care Education/Training Program
DX: R31.0 Gross hematuria (principal)
CPT/HCPCS: 81001; 99283

== ENCOUNTER 2025-03-14 13:48 | Outpatient (CLI) | payer MEDICARE, MEDICAID, SELFPAY ==
[2025-03-14 15:59] LABS: Blood Urea Nitrogen 12 mg/dl (9-20); Creatinine,Serum 1.20 mg/dl (0.66-1.25); Estimated Glomerular Filt Rate 64 ml/min (>60); GFR (African American) 77 ML/MIN (>60)
[2025-03-15 10:10] LABS: PSA, Free 0.25 ng/mL
== END 2025-03-14 23:59 | disposition home or self-care (01) ==
LOC: LAB 13:49
PROVIDERS: PCP Student in an Organized Health Care Education/Training Program; Visit Provider Urology
DX: N40.0 Benign prostatic hyperplasia without lower urinary tract symptoms (principal); N28.1 Cyst of kidney, acquired; N50.819 Testicular pain, unspecified
CPT/HCPCS: 36415; 82565; 84153; 84154; 84520

== ENCOUNTER 2025-04-04 12:59 | Outpatient (CLI) | payer MEDICARE, MEDICAID, SELFPAY ==
--- OUTSIDE RECORDS SUMMARY | 2025-04-04 13:06 | XMS_ITS | Continuity of Care Document ---
Author Organization [facility] Address [address] [place] [address] Phone Care Team Providers Care Nursing Agency Manager Name Role Phone Robbie Putnam MD Primary Care Provider [phone] Encounters Date Type Department Care Team Description 07/21/2018 Refill [facility] [address] [place] [address] Germán Bradley MD Medication Refill 06/30/2018 Telephone [facility] [address] [place] [address] Dustin Mcintyre MD Other 06/02/2018 Orders Only [facility] [address] [place] [address] Radha Urbina CCMA Hepatitis A antibody positive (Primary Dx) 06/02/2018 Orders Only [facility] [address] [place] [address] Oralia Cruz RMA Elevated liver function tests (Primary Dx) 06/01/2018 9:30 AM EST Office Visit [facility] [address] [place] [address] Dustin Mcintyre MD Left inguinal [...] liver function tests 04/13/2018 Refill [facility] [address] [place] [address] Germán Bradley MD Medication Refill 12/22/2017 Telephone [facility] [address] [place] [address] Dustin Mcintyre MD Other 12/05/2017 8:00 AM EDT Office Visit [facility] [address] [facility] [place] [address] Germán Bradley MD Other epilepsy [...] 100 07/22/2017 1:00 PM EDT Office Visit [facility] [address] [facility] [place] [address] Germán Bradley MD Other epilepsy without status epilepticus, not intractable (HCC) (Primary Dx); Impulse control disorder; COPD, mild (HCC); Recurrent major depressive disorder, in full remission; Chest wall pain; Rotator cuff syndrome of left shoulder; JB (generalized anxiety disorder); Closed nondisplaced fracture of distal phalanx of finger, unspecified finger, initial encounter 07/08/2017 Patient Outreach [facility] [address] [place] [address] Jennifer Mccain LPN Care Transition; Care Management - Chart Review; ED Follow-Up Call 07/07/2017 9:44 PM EDT - 07/07/2017 10:25 PM EDT [facility] [address] [place] [address] Robbie Queen MD Rotator cuff strain, left, initial encounter (Primary Dx) Discharge Disposition: Home or Self Care 05/26/2017 9:28 PM EST - 05/26/2017 10:28 PM EST [facility] [address] [place] [address] Radha Lopez MD Closed nondisplaced fracture of distal phalanx of right ring finger, initial encounter (Primary Dx); Multiple abrasions Discharge Disposition: Usp 05/06/2017 2:00 PM EST Office Visit [facility] [address] [place] [address] Dustin Mcintyre MD Well adult exam (Primary Dx); Other epilepsy without status epilepticus, not intractable (HCC); COPD, mild (HCC); Gastroesophageal reflux disease without esophagitis; Restless leg syndrome; Hyperlipidemia with target LDL less than 100; Cigarette nicotine dependence without complication; Impulse control disorder; Recurrent major depressive disorder, in full remission; Generalized anxiety disorder 04/08/2017 Refill [facility] [address] [place] [address] Dustin Mcintyre MD Medication Refill 04/08/2017 Refill [facility] [address] [place] [address] Gerámn Bradley MD Medication Refill 04/08/2017 Telephone [facility] [address] [place] [address] Dustin Mcintyre MD Other 02/27/2017 3:00 PM EST Office Visit [facility] [address] [place] [address] Germán Bradley MD Epidermal inclusion cyst (Primary Dx); Acute bacterial sinusitis; Chronic seasonal allergic rhinitis due to pollen; Lumbar sprain, initial encounter; Generalized osteoarthritis of multiple sites 01/16/2017 Telephone [facility] [address] [place] [address] Norma Greenfield MA Advice Only 01/07/2017 3:21 PM EDT - 01/07/2017 11:59 PM EDT Hospital Encounter [facility] PROCESSING [facility] [place] [address] Other epilepsy without status epilepticus, not intractable (HCC); Hyperlipidemia with target LDL less than 100 Discharge Disposition: Home or Self Care 01/07/2017 Telephone [facility] [address] [place] [address] Nelda Torres CMA Orders 01/07/2017 9:00 AM EDT Office Visit [facility] [address] [place] [address] Dustin Mcintyre MD Gastroesophageal reflux disease without esophagitis (Primary Dx); COPD, mild (HCC); Hyperlipidemia with target LDL less than 100; Generalized anxiety disorder; Acute pain of right knee; Right knee injury, initial encounter; Other epilepsy without status epilepticus, not intractable (HCC); Major depressive disorder, recurrent episode, mild; Chronic seasonal allergic rhinitis due to pollen 11/10/2016 Refill [facility] [address] [place] [address] Germán Bradley MD Medication Refill 10/21/2016 Refill [facility] [address] [place] [address] Nelda Torres, HOOP PUNCHER Medication Refill 10/05/2016 Refill [facility] [address] [place] [address] Germán Bradley MD Medication Refill 08/18/2016 Refill [facility] [address] [place] [address] Germán Bradley MD Medication Refill 08/07/2016 1:30 PM EDT - 08/07/2016 11:59 PM EDT Hospital Encounter [facility] [address] [place] [address] Acute pain of right knee; Right knee injury, initial encounter Discharge Disposition: Home or Self Care 08/07/2016 1:15 PM EDT Office Visit [facility] [address] [place] [address] Dustin Mcintyre MD Acute pain of right knee (Primary Dx); Right knee injury, initial encounter 07/24/2016 Telephone [facility] [address] [place] [address] Dustin Mcintyre MD Other 06/21/2016 Telephone [facility] [address] [place] [address] Nelda Torres CMA Prior Authorization (nexium needs a PA) 06/12/2016 Telephone [facility] [address] [place] [address] Dustin Mcintyre MD Other 06/11/2016 7:45 AM EST - 06/11/2016 8:00 AM EST Surgery [facility] [address] [place] [address] Wang Vieira MD CARPAL TUNNEL RELEASE BILATERAL 06/11/2016 6:41 AM EST - 06/11/2016 8:24 AM EST Hospital Encounter [facility] [address] [place] [address] Wang Vieira MD Discharge Disposition: Home or Self Care 05/16/2016 1:15 PM EST Office Visit [facility] [address] [place] [address] Germán Bradley MD COPD, mild (HCC) (Primary Dx); Generalized anxiety disorder; Cigarette nicotine dependence without complication; Bilateral carpal tunnel syndrome 05/09/2016 Patient Outreach [facility] [address] [place] [address] Margie Mo LPN Care Management - Chart Review (Chart Review) 05/08/2016 1:42 PM EST - 05/08/2016 11:59 PM EST Hospital Encounter [facility] [address] [place] [address] Emg, Kiko Edg Bilateral carpal tunnel syndrome (Primary Dx) Discharge Disposition: Home or Self Care 05/06/2016 10:05 AM EST - 05/06/2016 11:59 PM EST Hospital Encounter [facility] [address] [place] [address] COPD, mild (HCC) Discharge Disposition: Home or Self Care 04/29/2016 2:30 PM EST [address] [place] [address] Germán Bradley MD Well adult exam (Primary Dx); COPD, mild (HCC); Need for pneumococcal vaccination 04/01/2016 7:27 PM EST - 04/01/2016 11:59 PM EST Hospital Encounter [facility] LAB [facility]IN PROCESSING [facility] [place] [address] Memory loss; Hyperlipidemia with target LDL less than 100 Discharge Disposition: Home or Self Care 04/01/2016 Orders Only [facility] [address] [place] [address] Kinjal Bustillo RMA Gastroesophageal reflux disease without esophagitis (Primary Dx) 04/01/2016 2:30 PM EST Office Visit [facility] [address] [place] [address] Germán Bradley MD Need for influenza vaccination (Primary Dx); Generalized anxiety disorder; Hyperlipidemia with target LDL less than 100; Seasonal allergic rhinitis, unspecified allergic rhinitis trigger; Other epilepsy without status epilepticus, not intractable ([facility]); Restless leg syndrome; Major depressive disorder, recurrent episode, mild; Gastroesophageal reflux disease without esophagitis; COPD, mild ([facility]); Memory loss 02/20/2016 Refill [facility] [address] [place] [address] Germán Bradley MD Medication Refill 12/28/2015 Refill [facility] [address] [facility] [place] [address] Nelda Torres CMA Medication Refill 11/30/2015 Patient Outreach [facility] [address] [place] [address] Елена Alvares RMA ED Follow-up 11/28/2015 Patient Outreach [address] [place] [address] Margie Mo LPN Care Management - Chart Review (Chart Review-Patient discharged from ED 11/27/2015) 11/27/2015 5:23 PM EDT - 11/27/2015 6:28 PM EDT [facility] [address] [place] [address] Michelle Shirley MD Right-sided low back pain without sciatica (Primary Dx) Discharge Disposition: Home or Self Care 11/21/2015 Patient Outreach [address] [place] [address] Margie Mo LPN Care Management - Chart Review (Chart Review-Patient discharged from ED 11/20/2015) 11/20/2015 Refill [facility] [address] [place] [address] Germán Bradley MD Medication Refill 11/20/2015 3:28 PM EDT - 11/20/2015 4:01 PM EDT [facility] [address] [facility] [place] [address] Devora Lindsey MD Fall, initial encounter (Primary Dx); Cervical strain, initial encounter; Abrasions of multiple sites; Right shoulder strain, initial encounter Discharge Disposition: Home or Self Care 11/16/2015 8:07 PM EDT - 11/16/2015 11:59 PM EDT Hospital Encounter [facility] LAB [facility] PROCESSING [facility] [place] [address] Other epilepsy without status epilepticus, not intractable (HCC); Hyperlipidemia with target LDL less than 100 Discharge Disposition: Home or Self Care 11/16/2015 Telephone [facility] [address] [place] [address] Nelda Torres CMA Prior Authorization (michelle frank a PA) 11/16/2015 3:00 PM EDT Office Visit [address] [place] [address] Germán Bradley MD Chronic obstructive pulmonary disease with acute exacerbation (HCC) (Primary Dx); Hyperlipidemia with target LDL less than 100; Generalized anxiety disorder; Restless leg syndrome; Major depressive disorder, recurrent episode, mild; Other epilepsy without status epilepticus, not intractable (HCC); Gastroesophageal reflux disease without esophagitis; Seasonal allergies; Acute bacterial sinusitis 10/21/2015 Refill [facility] [address] [facility] [place] [address] Germán Bradley MD Medication Refill 10/21/2015 Refill [facility] [address] [facility] [place] [address] Dustin Mcintyre MD Medication Refill 09/21/2015 Refill [facility] [address] [facility] [place] [address] Dustin Mcintyre MD Medication Refill 09/15/2015 Telephone [facility] [address] [facility] [place] [address] Germán Bradley MD Other 09/04/2015 Telephone [facility] [address] [place] [address] Nelda Torres CMA Referral 08/23/2015 Refill [facility] [address] [place] [address] Germán Bradley MD Medication Refill 08/22/2015 Telephone [facility] [address] [place] [address] Germán Bradley MD Other 08/17/2015 Telephone [facility] [address] [place] [address] Germán Bradley MD Letter for School/Work 08/08/2015 Telephone [facility] [address] [place] [address] Nelda Torres [facility] Prior Authorization (atarax needs a PA) 08/07/2015 Refill [facility] [address] [place] [address] Germán Bradley MD Medication Refill 07/20/2015 Refill [facility] [address] [place] [address] Germán Bradley MD Medication Refill 07/05/2015 Refill [facility] [address] [place] [address] Dustin Mcintyre MD Medication Refill 06/26/2015 Refill [facility] [address] [place] [address] Germán Bradley MD Medication Refill 06/26/2015 Patient Outreach [facility] [address] [place] [address] Елена Alvares RMA ED Follow-up 06/26/2015 Patient Outreach [facility] [address] [place] [address] Margie Mo LPN Care Management - Chart Review (Discharged from ED 06/23/2015 Chart Reviewed) 06/23/2015 4:34 PM EST - 06/23/2015 6:22 PM EST Emergency [facility] [address] [place] [address] Elina Hall MD Pain of left lower extremity (Primary Dx) Discharge Disposition: Home or Self Care 06/20/2015 8:30 AM EST - 06/20/2015 9:30 AM EST Surgery [facility] [place] [address] [address] Crow Love MD SHOULDER ARTHROSCOPY SUBACROMIAL DECOMPRESSION /FULL MILYL 06/20/2015 7:52 AM EST Anesthesia Event [facility] [place] [address] [address] Jerson Can DO Mucenski, Cathleen M, MD 06/20/2015 6:32 AM EST - 06/20/2015 10:47 AM EST Hospital Encounter [facility] [place] [address] Crow Love MD Discharge Disposition: Home or Self Care 05/10/2015 Refill [facility] [address] [place] [address] Dustin Mcintyre MD Medication Refill 2015 10:00 AM EST Office Visit [facility] [address] [place] [address] Germán Bradley MD Well adult (Primary Dx); Cigarette nicotine dependence without complication 04/20/2015 3:26 PM EST - 04/20/2015 11:59 PM EST Hospital Encounter [facility] LAB [facility] PROCESSING [facility] [place] [id number] Other epilepsy without status epilepticus, not intractable (HCC); Hyperlipidemia with target LDL less than 100 Discharge Disposition: Home or Self Care 04/20/2015 Telephone [facility] [address] [place] [address] MaynorarturoЕлена, RMA Anxiety 04/20/2015 9:30 AM EST Office Visit [facility] [address] [place] [address] Germán Bradley MD Chronic obstructive pulmonary disease with acute exacerbation (HCC) (Primary Dx); Generalized anxiety disorder; Gastroesophageal reflux disease without esophagitis; Restless leg syndrome; Hyperlipidemia with target LDL less than 100; Major depressive disorder, recurrent episode, mild; Other epilepsy without status epilepticus, not intractable (HCC); Impingement syndrome, shoulder, right 04/12/2015 Refill [facility] [address] [place] [address] Dustin Mcintyre MD Medication Refill 04/11/2015 Refill [facility] [address] [place] [address] Dustin Mcintyre MD Medication Refill 04/11/2015 Refill [facility] [address] [place] [address] Dustin Mcintyre MD Medication Refill 03/30/2015 11:00 AM EST Office Visit [facility] [address] [place] [address] Germán Bradley MD Shoulder tendonitis, right (Primary Dx); Primary osteoarthritis of right shoulder 03/23/2015 Orders Only [facility] [address] [place] [address] Tu Rivera MD Seizure disorder (HCC) (Primary Dx) 03/22/2015 11:10 AM EST - 03/22/2015 11:59 PM [facility] Hospital Encounter [facility] [address] [place] [address] [phone]- [phone] Dustin Mcintyre MD Right shoulder pain Discharge Disposition: Home or Self Care 03/21/2015 Orders Only [facility] [address] [place] [address] Елена Alvares, RMSabine Chronic obstructive pulmonary disease with acute exacerbation (HCC) (Primary Dx); Generalized anxiety disorder 03/20/2015 Refill [facility] [address] [place] [address] Dustin Mcintyre MD Medication Refill 03/17/2015 10:15 AM EST Office Visit [facility] [address] [place] [address] Dustin Mcintyre MD Right shoulder pain (Primary Dx) 02/24/2015 11:00 AM EST Office Visit [facility] [address] [place] [address] Dustin Mcintyre MD Generalized anxiety disorder (Primary Dx); Trapezius strain, unspecified laterality, initial encounter; Medial epicondylitis of elbow, right 01/24/2015 Refill [facility] [address] [place] [address] Dustin Mcintyre MD Medication Refill 01/24/2015 Refill [facility] [address] [place] [address] Nelda Torres, HOOP PUNCHER Medication Refill 01/23/2015 Refill [facility] [address] [place] [address] Nelda Torres, HOOP PUNCHER Medication Refill 12/21/2014 Refill [facility] [address] [place] [address] Dustin Mcintyre MD Medication Refill 11/04/2014 3:00 PM EDT - 11/04/2014 11:59 PM EDT Hospital Encounter [facility] LAB KELVIN PROCESSING [facility] [place] [address] Other epilepsy without status epilepticus, not intractable (HCC); Hyperlipidemia LDL goal < 100 Discharge Disposition: Home or Self Care 11/04/2014 9:15 AM EDT Office Visit [facility] [address] [place] [address] Dustin Mcintyre MD Generalized anxiety disorder (Primary Dx); Asthma, unspecified asthma severity, uncomplicated; COPD (chronic obstructive pulmonary disease) ([facility]); Restless leg syndrome; Gastroesophageal reflux disease without esophagitis; Other epilepsy without status epilepticus, not intractable ([facility]); Hyperlipidemia LDL goal < 100 11/01/2014 Refill [facility] [address] [place] [address] Dustin Mcintyre MD Medication Refill 11/01/2014 Refill [facility] [address] [place] [address] Dustin Mcintyre MD Medication Refill 10/31/2014 Refill [facility] [address] [place] [address] Dustin Mcintyre MD Medication Refill 10/14/2014 Refill [facility] [address] [place] [address] Dustin Mcintyre MD Medication Refill 08/29/[address] [place] [address] Nelda Torres CMA Medication Management (atrarax needs a pa) 08/10/2014 Telephone [facility] [address] [place] [address] Nelda Torres CMA Medication Management (hyrdoxyzine needs a PA) 07/13/2014 Telephone [facility] [address] [place] [address] Nelda Torres CMA Medication Problem 07/08/2014 9:28 AM EDT - 07/08/2014 11:59 PM EDT Hospital Encounter [facility] Physical Therapy [address] [place] [address] Shanice Ybarra, PT Discharge Disposition: Home or Self Care 07/01/2014 10:04 AM EDT - 07/01/2014 11:59 PM EDT Hospital Encounter [facility] Physical Therapy [place] [address] [place] [address] Shanice Ybarra, PT Discharge Disposition: Home or Self Care 06/28/2014 9:27 AM EDT - 06/28/2014 11:59 PM EDT Hospital Encounter [facility] Physical Therapy [place] [address] [place] [address] Margarita Doran, PT Discharge Disposition: Home or Self Care 06/21/2014 8:15 AM EDT - 06/21/2014 8:45 AM EDT Surgery EDG [facility] [address] [address] Crow Love MD KNEE ARTHROSCOPY MENISCECTOMY/REPAIR (ALSO COVERS ARTHROSCOPIC INCISION AND DRAINAGE/DEBRIDEMENT) 06/21/2014 7:50 AM EDT Anesthesia Event [facility] [place] [address] Artem Naqvi MD Brannon, Daniel Todd, DO 06/21/2014 6:35 AM EDT - 06/21/2014 10:32 AM EDT Hospital Encounter EDG [facility] [place] [address] Crow Love MD Discharge Disposition: Home or Self Care 06/08/2014 10:30 AM EST Office Visit [facility] [address] [place] [address] Dustin Mcintyre MD Pre-op exam (Primary Dx); Arthritis of knee; Folliculitis; Epilepsy (HCC); Restless leg syndrome; JB (generalized anxiety disorder); Hearing loss in left ear; GERD (gastroesophageal reflux disease) 05/25/2014 Telephone [facility] [address] [place] [address] Dustin Mcintyre MD Results 05/21/2014 Refill [facility] [address] [facility] [place] [address] Dustin Mcintyre MD Medication Refill 05/20/2014 7:41 PM EST - 05/20/2014 11:59 PM EST Hospital Encounter [facility] PROCESSING [facility] [place] [address] Hypernatremia; Pre-op testing Discharge Disposition: Home or Self Care 05/20/2014 Orders Only [facility] [address] [place] [address] Lay Minor MD Hypernatremia (Primary Dx); Pre-op testing 05/20/2014 11:00 AM EST Office Visit [facility] [address] [facility] [place] [address] Dustin Mcintyre MD Bronchitis (Primary Dx); COPD exacerbation (HCC); Asthma exacerbation, moderate persistent; Chest wall pain; Vomiting; Hypernatremia 05/19/2014 Patient Outreach [address] [address] Nasrin Perry, senior product development manager (ED f/u call ) 05/18/2014 11:12 AM EST - 05/18/2014 12:37 PM EST [facility] [address] [place] [address] Mariaelena Rossi MD Acute bronchitis (Primary Dx); Acute sinusitis; COPD (chronic obstructive pulmonary disease) (HCC) Discharge Disposition: Home or Self Care 2014 7:57 PM EST - 2014 11:59 PM EST Hospital Encounter [facility] LAB KELVIN PROCESSING [facility] [place] [address] Healthcare maintenance; Epilepsy (HCC) Discharge Disposition: Home or Self Care 2014 10:00 AM EST Office Visit [address] [place] [address] Dustin Mcintyre MD Epilepsy (HCC) (Primary Dx); Generalized anxiety disorder; Hyperlipidemia LDL goal < 100; Restless leg syndrome; GERD (gastroesophageal reflux disease); Healthcare maintenance; COPD (chronic obstructive pulmonary disease) ([facility]) 04/01/2014 Telephone [facility] [address] [place] [address] Dustin Mcintyre MD Results 03/23/2014 11:00 AM EST Office Visit [facility] [address] [place] [address] Wheezing; SOB (shortness of breath) Discharge Disposition: Home or Self Care 03/18/2014 10:45 AM EST Office Visit [facility] [address] [place] [address] Dustin Mcintyre MD Wheezing (Primary Dx); SOB (shortness of breath) 03/17/2014 Telephone [facility] [address] [place] [address] Nelda Torres CMA Medication Management (protonix bid needs a PA) 03/14/2014 Telephone [facility] [address] [place] [address] Dustin Mcintyre MD Medication Refill 03/08/2014 Telephone [facility] [address] [place] [address] Dustin Mcintyre MD Other 03/08/2014 11:20 AM EST - 03/08/2014 11:59 PM EST Hospital Encounter [facility] [address] [place] [address] Allergic rhinitis, cause unspecified (Primary Dx); Epilepsy ([facility] [facility]); Hearing loss in left ear; GERD (gastroesophageal reflux disease); JB (generalized anxiety disorder); FHx: prostate cancer; FHx: lung cancer; Nicotine dependence; Restless leg syndrome Discharge Disposition: Home or Self Care 03/08/2014 10:45 AM EST Office Visit [facility] [address] [place] [address] Dustin Mcintyre MD Hyperlipidemia LDL goal < 100 (Primary Dx); GERD (gastroesophageal reflux disease); Asthma, unspecified asthma severity, uncomplicated; Epilepsy (HCC); Generalized anxiety disorder; Restless leg syndrome 02/12/2014 Refill [facility] [address] [place] [address] Dustin Mcintyre MD Medication Refill 02/04/2014 8:00 AM EDT - 02/04/2014 9:52 AM EDT Surgery [facility] [address] [place] [address] Los Gordon MD FUNCTIONAL ENDOSCOPIC SINUS SURGERY/SINOSCOPY 02/04/2014 6:27 AM EDT - 02/04/2014 11:53 AM EDT Hospital Encounter [facility] SAME DAY SURGERY [address] [place] [address] Los Gordon MD Discharge Disposition: Home or Self Care 02/02/2014 11:00 AM EDT - 02/02/2014 11:59 PM EDT Hospital Encounter [facility] PRE-ADMIT TESTING [address] [place] [address] Pat, Clarice Discharge Disposition: Home or Self Care 01/24/2014 11:29 AM EDT - 01/24/2014 11:59 PM EDT Hospital Encounter [facility] [address] [place] [address] Esophageal reflux (Primary Dx); Dyspepsia and other specified disorders of function of stomach; Dysphagia, unspecified(787.20) Discharge Disposition: Home or Self Care 11/19/2013 10:30 AM EDT Office Visit [facility] [address] [facility] [place] [address] Dustin Mcintyre MD Laceration of wrist, left, subsequent encounter (Primary Dx) 11/13/2013 Refill [facility] [address] [facility] [place] [address] Marcela Ding MD Medication Refill 11/12/2013 6:42 PM EDT - 11/12/2013 7:45 PM EDT Emergency [facility] [address] [place] [address] Jerson Go MD Wrist laceration, left, initial encounter (Primary Dx) Discharge Disposition: Home or Self Care 11/03/2013 Telephone [facility] [address] [facility] [place] [address] Chyna Mcgraw MA Referral (ORTHO) 11/01/2013 Orders Only [address] [place] [address] Marcela Ding MD Knee pain, right (Primary Dx) 11/01/2013 8:55 AM EDT - 11/01/2013 11:59 PM EDT Hospital Encounter [facility] [address] [id number] Dustin Mcintyre MD Right knee pain; Recurrent right knee instability Discharge Disposition: Home or Self Care 10/29/[address] [place] [address] Dustin Mcintyre MD Other 10/28/[address] [place] [address] Dustin Mcintyre MD Referral 10/25/2013 4:43 PM EDT - 10/25/2013 11:59 PM EDT Hospital Encounter [facility] LAB [facility] [address] [id number] Hyperlipidemia LDL goal < 100 (Primary Dx); Epilepsy (HCC); Screening PSA (prostate specific antigen); Family history of prostate cancer; FHx: prostate cancer; Other nonspecific abnormal serum enzyme levels Discharge Disposition: Home or Self Care 10/25/2013 Telephone [address] [place] [address] Nelda Torres CMA Medication Management (Nexium bid dosing needs a PA) 10/25/2013 10:30 AM EDT Office Visit [address] [place] [address] Dustin Mcintyre MD Epilepsy ([facility]) (Primary Dx); Asthma, unspecified asthma severity, uncomplicated; Generalized anxiety disorder; JB (generalized anxiety disorder); GERD (gastroesophageal reflux disease); Family history of prostate cancer; Hyperlipidemia LDL goal < 100; FHx: prostate cancer; Hearing loss in left ear; Restless leg syndrome; Right knee pain; Recurrent right knee instability; Screening PSA (prostate specific antigen) 10/18/2013 Refill [facility] [address] [place] [address] Germán Bradley MD Medication Refill 10/13/2013 10:00 AM EDT Office Visit [facility] Neurology [facility] [address] [place] [address] Tu Rivera MD Epilepsy ([facility]) (Primary Dx); Hearing loss in left ear; Nicotine dependence; Restless leg syndrome 09/10/2013 Refill [facility] [address] [place] [address] Germán Bradley MD Medication Refill 08/30/2013 Refill [facility] [address] [place] [address] Nelda Torres [facility] Medication Refill 08/26/2013 Telephone [facility] [address] [facility] [place] [address] Nelda Torres [facility] Referral 08/26/2013 Refill [facility] [address] [place] [address] Germán Bradley MD Medication Refill 08/26/2013 11:20 AM EDT - 08/26/2013 11:59 PM EDT Hospital Encounter [facility] Physical Therapy [facility] [address] [place] [address] Yvrose Palma, PT Discharge Disposition: Home or Self Care 08/17/2013 1:17 PM EDT - 08/17/2013 11:59 PM EDT Hospital Encounter [facility] Physical Therapy [facility] [address] [place] [address] Yvrose Palma, PT Discharge Disposition: Home or Self Care 08/16/2013 Refill [facility] [address] [place] [address] Germán Bradley MD Medication Refill 08/16/2013 Refill [facility] [address] [place] [address] Dustin Mcintyre MD Medication Refill 08/12/2013 Refill [facility] [address] [place] [address] Marcela Ding MD Medication Refill 08/12/2013 Refill SEP [address] [place] [address] Germán Bradley MD Medication Refill 08/12/2013 Refill [facility] [address] [place] [address] Dustin Mcintyre MD Medication Refill 07/27/2013 Telephone [facility] [address] [place] [address] Nelda Torres, NIESHA Medication Refill 07/23/2013 8:30 AM EDT - 07/23/2013 11:59 PM EDT Hospital Encounter [place] [id number] [facility] [place] [address] Los Gordon MD Sensorineural hearing loss, asymmetrical; Abnormal auditory perception, unspecified Discharge Disposition: Home or Self Care 07/07/2013 Refill [facility] [address] [place] [address] Nelda Torres, HOOP PUNCHER Medication Refill 06/29/2013 2:00 PM EDT - 06/29/2013 11:59 PM EDT Hospital Encounter [facility] [address] [facility] [place] [id number] Nazanin Becerra [facility] [employer]ER Discharge Disposition: Home or Self Care 06/25/2013 Refill [facility] [address] [place] [address] Dustin Mcintyre MD Medication Refill 06/01/2013 Telephone [facility] [address] [place] [address] Germán Bradley MD Labs Only 05/31/2013 4:54 PM EST - 05/31/2013 11:59 PM EST Hospital Encounter [facility] LAB [facility] [place] [id number] Well adult exam; Epilepsy (HCC) Discharge Disposition: Home or Self Care 05/31/2013 10:00 AM EST - 05/31/2013 4:53 PM EST Hospital Encounter [facility] [address] [place] [address] COPD (chronic obstructive pulmonary disease) (HCC); FHx: lung cancer; Cough Discharge Disposition: Home or Self Care 05/31/2013 9:15 AM EST Office Visit [facility] [place] [address] Germán Bradley MD Well adult exam (Primary Dx); COPD (chronic obstructive pulmonary disease) (HCC); Epilepsy (HCC); GERD (gastroesophageal reflux disease); JB (generalized anxiety disorder); Atypical moles; FHx: prostate cancer; FHx: lung cancer; Cough; Tobacco abuse 05/26/2013 Telephone [facility] [address] [place] [address] Dustin Mcintyre MD Epistaxis 05/24/2013 Refill [facility] [address] [place] [address] Germán Bradley MD Medication Refill 05/21/2013 Refill [facility] [address] [place] [address] Dustin Mcintyre MD Medication Refill 05/21/2013 Refill [facility] [address] [place] [address] Germán Bradley MD Medication Refill 05/03/2013 Telephone [facility] [address] [place] [address] TorresNelda jackson [facility] Medication Refill 04/29/2013 10:15 AM EST Office Visit [facility] [address] [place] [address] Germán Bradley MD JB (generalized anxiety disorder) (Primary Dx); Back strain 04/15/2013 Refill [facility] [address] [place] [address] Marcela Ding MD Medication Refill 04/15/2013 Refill [facility] [address] [place] [address] Germán Bradley MD Medication Refill 03/24/[address] [place] [address] Veronica Freed MA Anxiety 03/16/[address] [place] [address] Chyna Mcgraw MA Referral (ORTHO) 03/15/2013 1:00 PM EST Office Visit [facility] [address] [place] [address] Dustin Mcintyre MD Arthralgia of shoulder region, right (Primary Dx); Arthritis of elbow, right; GERD (gastroesophageal reflux disease); RLS (restless legs syndrome); Epilepsy (HCC); Bipolar affective disorder (HCC); Generalized anxiety disorder; Asthma 03/14/2013 Refill [facility] [address] [place] [address] Germán Bradley MD Medication Refill 03/05/2013 Telephone [facility] [place] [address] [place] [address] Dustin Mcintyre MD Medication Change 03/02/2013 2:15 PM EST Office Visit [facility] [place] [address] [place] [address] Dustin Mcintyre MD Shoulder pain (Primary Dx) 03/02/2013 1:27 PM EST - 03/02/2013 11:59 PM EST Hospital Encounter [place] [address] [place] [address] Kathy Wasserman, PT Discharge Disposition: Home or Self Care 03/01/2013 Refill [facility] [address] [place] [address] Germán Bradley MD Medication Refill 03/01/2013 Refill [facility] [address] [place] [address] Dustin Mcintyre MD Medication Refill 03/01/2013 Refill [facility] [address] [place] [address] Marcela Ding MD Medication Refill 02/27/2013 Telephone [facility] [address] [place] [address] Germán Bradley MD Other 02/26/2013 10:07 AM EST - 02/26/2013 11:59 PM EST Hospital Encounter [address] [place] [address] Kathy Wasserman, PT Discharge Disposition: Home or Self Care 02/18/2013 12:51 PM EST - 02/18/2013 11:59 PM EST Hospital Encounter [address] [place] [address] Kathy Wasserman, PT Discharge Disposition: Home or Self Care 02/12/2013 Refill [facility] [address] [place] [address] Dustin Mcintyre MD Medication Refill 02/10/2013 9:06 AM EDT - 02/10/2013 11:59 PM EDT Hospital Encounter [facility] Physical [address] [place] [address] Kathy Wasserman, PT Discharge Disposition: Home or Self Care 02/05/2013 12:26 PM EDT - 02/05/2013 11:59 PM EDT Hospital Encounter [address] [place] [address] Kathy Wasserman, PT Discharge Disposition: Home or Self Care 02/01/2013 Refill [facility] [address] [address] Marcela Ding MD Medication Refill 01/29/2013 Telephone [facility] [address] [place] [address] Germán Bradley MD Medication Refill 01/18/2013 8:30 AM EDT - 01/18/2013 9:30 AM EDT Surgery [facility] [address] [place] [address] Crow Love MD SHOULDER ARTHROSCOPY LABRAL/BANKART/ BICEP TENODESIS (COVERS SUPERIOR LABRAL ANTERIOR POSTERIOR REPAIR/SLAP) 01/18/2013 5:21 AM EDT - 01/18/2013 12:50 PM EDT Hospital Encounter [facility] SAME DAY SURGERY [address] [place] [address] Crow Love MD Discharge Disposition: Home or Self Care 01/14/2013 Telephone [facility] [address] [place] [address] Germán Bradley MD Medication Reaction 01/08/2013 2:00 PM EDT Office Visit [facility] [address] [place] [address] Germán Bradley MD Infected inclusion cyst (Primary Dx); RLS (restless legs syndrome) 12/25/2012 12:38 PM EDT - 12/25/2012 11:59 PM EDT Hospital Encounter [facility] MRI [address] [place] [address] Germán Bradley MD Rotator cuff syndrome of left shoulder Discharge Disposition: Home or Self Care 12/20/2012 9:52 AM EDT - 12/20/2012 11:16 AM EDT Emergency [facility] [place] [address] Pino Maxwell MD Foot sprain (Primary Dx) Discharge Disposition: Home or Self Care 12/16/2012 1:45 PM EDT Office Visit [facility] [address] [facility] [place] [address] Germán Bradley MD Rotator cuff syndrome of left shoulder (Primary Dx); Need for influenza vaccination 12/15/2012 Telephone [facility] [address] [facility] [place] [address] Germán Bradley MD Referral 12/11/2012 Refill [facility] [address] [place] [address] Marcela Ding MD Medication Refill 12/11/2012 Refill [facility] [address] [facility] [place] [address] Germán Bradley MD Medication Refill 12/02/2012 11:17 AM EDT - 12/02/2012 11:59 PM EDT Hospital Encounter [facility] Physical Therapy [facility] [address] [place] [address] Chyna Mathis, PT Discharge Disposition: Home or Self Care 12/02/2012 10:00 AM EDT Office Visit [facility] [address] [place] [address] Germán Bradley MD Seborrhea (Primary Dx); Cervical lymphadenitis 11/19/2012 Refill [facility] [address] [place] [address] Germán Bradley MD Medication Refill 11/18/2012 10:41 AM EDT - 11/18/2012 11:59 PM EDT Hospital Encounter [facility] Physical Therapy [facility] [address] [place] [address] Shanice Ybarra PT Rotator cuff syndrome (Primary Dx) Discharge Disposition: Home or Self Care 11/09/2012 12:11 PM EDT - 11/09/2012 11:59 PM EDT Hospital Encounter [facility] [address] [place] [address] Scoliosis; Back pain Discharge Disposition: Home or Self Care 11/09/2012 11:30 AM EDT Office Visit [facility] [address] [place] [address] Germán Bradley MD Rotator cuff syndrome Bilateral (Primary Dx) 11/05/2012 Telephone [facility] [address] [place] [address] Germán Bradley MD Back Pain 11/03/2012 Telephone [facility] [address] [place] [address] Nelda Torres CMA Back Pain 11/02/2012 5:12 PM EDT - 11/02/2012 11:59 PM EDT Hospital Encounter [facility] LAB [facility] PROC[facility]ING [facility] [place] [address] Epilepsy (HCC) Discharge Disposition: Home or Self Care 11/02/2012 9:00 AM EDT Office Visit [facility] [address] [place] [address] Germán Bradley MD LBP (low back pain) (Primary Dx); Neck pain; Shoulder pain; JB (generalized anxiety disorder); Epilepsy (HCC) 10/31/2012 Refill [facility] [address] [place] [address] Nelda Torres CMA Medication Refill 10/26/2012 Refill [facility] [address] [place] [address] Germán Bradley MD Medication Refill 10/20/2012 Telephone [facility] [address] [place] [address] Dustin Mcintyre MD Other 10/14/2012 Telephone [facility] [address] [place] [address] Dustin Mcintyre MD Medication Refill; Medication Change 10/09/2012 5:34 PM EDT - 10/09/2012 11:59 PM EDT Hospital Encounter EDG LAB [facility] [place] [address] Epilepsy (HCC); Generalized anxiety disorder Discharge Disposition: Home or Self Care 10/09/2012 Telephone [facility] [address] [place] [address] Norma Greenfield MA Medication Change 10/09/2012 8:30 AM EDT Office Visit [facility] [address] [place] [address] Dustin Mcintyre MD Epilepsy (HCC) (Primary Dx); GERD (gastroesophageal reflux disease); Asthma; Bipolar affective disorder (HCC); Generalized anxiety disorder; ED (erectile dysfunction) 06/20/2012 Refill [facility] [address] [place] [address] Marcela Ding MD Medication Refill 05/01/2012 1:57 PM EST - 05/01/2012 11:59 PM EST Hospital Encounter [facility] Physical [facility] [address] [place] [address] Kathy Wasserman, PT Discharge Disposition: Home or Self Care 04/24/2012 1:47 PM EST - 04/24/2012 11:59 PM EST Hospital Encounter [facility] [address] [place] [address] Kathy Wasserman, PT Discharge Disposition: Home or Self Care 04/17/2012 1:01 PM EST - 04/17/2012 11:59 PM EST Hospital Encounter [facility] [address] [place] [address] Kathy Wasserman, PT Discharge Disposition: Home or Self Care 04/16/2012 Refill [facility] [address] [place] [address] Marcela Ding MD Medication Refill 04/05/2012 5:08 PM EST - 04/05/2012 6:19 PM [facility] Emergency [facility] [address] [place] [address] Roshan Sanchez MD Chronic knee pain (Primary Dx) Discharge Disposition: Home or Self Care 03/09/2012 Refill [facility] [address] [place] [address] Marcela Ding MD Medication Refill 03/03/2012 Refill [facility] [address] [place] [address] Marcela Ding MD Medication Refill 02/28/2012 8:15 PM EST - 02/28/2012 11:59 PM EST Hospital Encounter [facility] [place] [id number] Epilepsy (HCC); Bipolar affective disorder (HCC); Abdominal pain Discharge Disposition: Home or Self Care 02/28/2012 10:20 AM EST Office Visit [facility] [address] [place] [address] Germán Bradley MD Epilepsy (HCC); Abdominal pain; Bipolar affective disorder (HCC); Asthma; Knee pain, left 01/17/2012 Telephone [facility] [address] [place] [address] Marcela Ding MD Medication Refill 12/21/2011 Refill [facility] [address] [place] [address] Germán Bradley MD Medication Refill 12/02/2011 7:06 PM EDT - 12/02/2011 11:59 PM EDT Hospital Encounter [facility] [place] [address] Bipolar affective disorder (HCC); Encounter for long-term (current) use of medications Discharge Disposition: Home or Self Care 12/02/2011 10:20 AM EDT Office Visit [place] [address] [place] [address] Dustin Mcintyre MD Knee pain, left (Primary Dx); Epilepsy (HCC); Bipolar affective disorder (HCC); Asthma; COPD (chronic obstructive pulmonary disease) (HCC); Anxiety; Encounter for long-term (current) use of medications 10/31/2011 [address] [place] [address] Germán Bradley MD Medication Refill 10/17/2011 Telephone [facility] [address] [place] [address] Marcela Ding MD Other 10/01/2011 3:24 PM EDT - 10/01/2011 4:31 PM EDT Emergency [facility] [address] [place] [address] Mariaelena Rossi MD Contusion of third finger, right; Left elbow contusion; Fall Discharge Disposition: Home or Self Care 09/14/2011 Refill [facility] [place] [address] [place] [address] Germán Bradley MD Medication Refill 08/23/2011 9:20 AM EDT Office Visit [place] [address] [place] [address] Germán Bradley MD Osteoarthritis (Primary Dx); Asthma; Epilepsy (HCC); Arthritis shoulder and knee; GERD (gastroesophageal reflux disease); Bipolar affective disorder (HCC); CTS (carpal tunnel syndrome) 08/07/2011 12:58 PM EDT - 08/07/2011 2:03 PM EDT [facility] [address] [place] [address] Alfie Perez MD Carpal tunnel syndrome of right wrist; Rotator cuff injury Discharge Disposition: Home or Self Care 07/10/2011 Telephone [facility] [address] [place] [address] Germán Bradley MD Other 07/02/2011 Telephone [facility] [address] [place] [address] Nelda Torres CMA Other (PA for celexa) 06/28/2011 9:51 AM EDT - 06/28/2011 11:59 PM EDT Hospital Encounter [facility] [address] [place] [address] Germán Bradley MD TMJ (dislocation of temporomandibular joint); Jaw pain; Dental decay Discharge Disposition: Home or Self Care 06/28/2011 9:20 AM EDT Office Visit [facility] [address] [place] [address] Germán Bradley MD Bipolar affective disorder (HCC); Anxiety; TMJ (dislocation of temporomandibular joint); Jaw pain; Dental decay 06/11/2011 Telephone [facility] [address] [place] [address] Marcela Ding MD Medication Refill 06/03/2011 8:09 PM EST - 06/03/2011 11:59 PM EST Hospital Encounter [facility] PROC[facility]ING [facility] [place] [id number] Bipolar affective disorder (HCC); Epilepsy (HCC) Discharge Disposition: Home or Self Care 06/03/2011 1:00 PM EST Office Visit [facility] [address] [place] [address] Germán Bradley MD Bipolar affective disorder (HCC); Asthma; Epilepsy (HCC) 05/18/2011 Refill [facility] [address] [place] [address] Germán Bradley MD Medication Refill 05/03/2011 Telephone [facility] [place] [address] [place] [address] Nelda Torres, NIESHA Other 05/03/2011 10:50 AM EST Office Visit [facility] [address] [place] [address] Germán Bradley MD Asthma (Primary Dx); Side pain; Abdominal wall pain; Bipolar affective disorder (HCC); Epilepsy (HCC) 04/17/2011 Refill [facility] [place] [address] [place] [address] Germán Bradley MD Medication Refill 03/18/2011 Telephone [place] [address] [place] [address] Cleopatra Duran Other 02/18/2011 2:20 PM EST - 02/18/2011 11:59 PM EST Hospital Encounter [facility] Physical [place] [address] [place] [address] Chyna Mathis, PT Discharge Disposition: Home or Self Care 02/11/2011 2:30 PM EDT - 02/11/2011 11:59 PM EDT Hospital Encounter [facility] Physical [place] [address] [place] [address] Chyna Mathis, PT Discharge Disposition: Home or Self Care 02/04/2011 2:24 PM EDT - 02/04/2011 11:59 PM EDT Hospital Encounter [facility] Physical Therapy [place] [address] [place] [address] Chyna Mathis, [place] Discharge Disposition: Home or Self Care 01/11/2011 Telephone [facility] [address] [address] Marcela Ding MD Other 12/28/[address] [address] Lucy Redman Rectal Bleeding 12/19/2010 2:51 PM EDT - 12/19/2010 11:59 PM EDT Hospital Encounter [facility] [place] [address] Elevated glucose Discharge Disposition: Home or Self Care 12/19/2010 10:30 AM EDT Office Visit [address] [address] Germán Bradley MD Bipolar affective disorder (HCC); Epilepsy (HCC); Asthma; AR (allergic rhinitis); GERD (gastroesophageal reflux disease); Arthritis shoulder and knee; Elevated glucose 12/14/[address] [address] Lucy Redman Medication Refill 12/14/[address] [address] Germán Bradley MD Medication Refill 12/12/2010 1:22 PM EDT - 12/12/2010 2:55 PM EDT Emergency [facility] [address] [place] [address] Ty Griffiths, Fibula fracture Discharge Disposition: Home or Self Care 12/08/[address] [address] Inge Quinn, ARMOND Results 11/21/2010 8:29 PM EDT - 11/21/2010 11:59 PM EDT Hospital Encounter EDG LAB KELVIN PROCESSING [place] [id number] Lipid screening; Epilepsy (HCC); Encounter for long-term (current) use of medications Discharge Disposition: Home or Self Care 11/21/2010 10:30 AM EDT Clinical Support [address] [place] [address] Oralia Cruz Sabine Bipolar affective disorder (HCC); Epilepsy (HCC); Lipid screening; Encounter for long-term (current) use of medications 11/09/[address] [place] [address] Germná Bradley MD Medication Refill 07/31/2010 2:00 PM EDT Office Visit [address] [place] [address] Germán Bradley MD Asthma; Bronchitis; Rotator cuff syndrome 07/30/[address] [place] [address] Lucy Redman Marquis Other 05/02/2010 11:30 AM EST Office Visit [address] [place] [address] Germán Bradley MD Epilepsy (HCC); Bipolar affective disorder (HCC); Asthma; COPD (chronic obstructive pulmonary disease) ([facility]); GERD (gastroesophageal reflux disease); Osteoarthritis 04/30/2010 10:08 AM EST - 04/30/2010 11:59 PM EST Hospital Encounter EDG LAB KELVIN PROCESSING [facility] [place] [id number] Marcela Ding MD Encounter for long-term (current) use of other medications; Epilep NOS w/o intr epil; Bipolar disorder NOS Discharge Disposition: Home or Self Care 04/30/2010 9:50 AM EST Clinical Support [address] [place] [address] Nelly Owusu RMA Epilepsy (HCC); Bipolar affective disorder ([facility]) [address] [place] [address] AnthonyOralia A Letter for School/Work ([employer] form) 04/13/2010 Refill SEP [address] [place] [address] Germán Bradley MD Medication Refill 03/17/2010 Refill SEP [address] [place] [address] Germán Bradley MD Medication Refill 02/12/2010 Refill SEP [address] [place] [address] Germán Bradley MD Medication Refill 01/16/2010 11:10 AM EDT Office Visit [address] [place] [address] Germán Bradley MD COPD (chronic obstructive pulmonary disease) ([facility]); Osteoarthritis of knee 12/21/2009 Refill SEP [address] [place] [address] Marcela Ding MD Medication Refill 12/07/[address] [place] [address] Dustin Mcintyre MD Medication Refill 11/07/2009 7:59 PM EDT - 11/07/2009 11:59 PM EDT Hospital Encounter HST SUWT EDG Germán Bradley MD 11/07/2009 3:20 PM EDT Office Visit [address] [place] [address] Germán Bradley MD PUD (peptic ulcer disease) (Primary Dx); Bipolar affective disorder ([facility]); Asthma; AR (allergic rhinitis) 11/04/2009 10:43 PM EDT - 11/05/2009 12:41 AM EDT Emergency HST GES GRT Ty Griffiths, DO 10/12/2009 12:01 AM EDT - 10/26/2009 1:28 PM EDT Hospital Encounter HST PT Germán Odom MD 10/25/2009 9:30 AM EDT Office Visit SEP [facility] [address] [place] [address] Germán Bradley MD AR (allergic rhinitis); GERD (gastroesophageal reflux disease); Rotator cuff syndrome; Bipolar affective disorder (HCC); Asthma; Epilepsy (HCC) 09/12/2009 12:01 AM EDT - 10/11/2009 11:59 PM EDT Hospital Encounter HST PT Marcela Villanueva MD Burke, Brennan C, MD 09/28/2009 Telephone SEP [facility] [address] [place] [address] Nelly Owusu RMA Medication Problem 09/27/2009 Telephone SEP [facility] [address] [place] [address] Veronica Freed MA Other 09/27/2009 1:20 PM EDT Office Visit [facility] [address] [place] [address] Germán Bradley MD Rotator cuff syndrome; AR (allergic rhinitis); GERD (gastroesophageal reflux disease) 09/14/2009 2:06 AM EDT - 09/14/2009 11:59 PM EDT Emergency HST GES GRT Ty Blake, DO 08/24/2009 2:55 PM EDT - 09/11/2009 11:59 PM EDT Hospital Encounter HST PT Marceal Villanueva MD 09/05/2009 Telephone SEP [facility] [address] [place] [address] Germán Bradley MD Results 09/05/2009 Telephone SEP [facility] [address] [place] [address] Dustin Mcintyre MD Results 09/01/2009 12:01 AM EDT - 09/01/2009 11:59 PM EDT Hospital Encounter HST RADIOLOGY GRT Marcela Ding MD 08/26/2009 Telephone SEP [facility] [address] [place] [address] Germán Bradley MD Results 08/24/2009 3:04 PM EDT - 08/24/2009 11:59 PM EDT Hospital Encounter HST RADIOLOGY GRT Marcela Ding MD 08/24/2009 2:30 PM EDT Office Visit [facility] [address] [place] [address] Marcela Ding MD Shoulder pain (Primary Dx) 08/15/2009 Refill SEP [facility] [address] [place] [address] TorresNelda [facility] Medication Refill 07/25/2009 5:37 PM EDT - 07/25/2009 11:59 PM EDT Hospital Encounter HST SUWT EDG Dustin Mcintyre MD 07/25/2009 3:00 PM EDT Office Visit [facility] [address] [place] [address] Germán Bradley MD Rotator cuff syndrome; Epilepsy (HCC); Encounter for long-term (current) use of other medications 06/26/2009 8:46 AM EDT - 06/26/2009 11:59 PM EDT Hospital Encounter HST RADIOLOGY GRT Wang Ospina 06/15/2009 Telephone SEP [facility] [address] [place] [address] Germán Bradley MD Other 06/15/2009 2:00 PM EST Office Visit [facility] [address] [place] [address] Germán Bradley MD Shoulder pain; Bipolar affective disorder (HCC) 06/06/2009 Telephone SEP [facility] [address] [place] [address] Nelda Torres, HOOP PUNCHER Seizures 05/30/2009 5:31 PM EST - 05/30/2009 11:59 PM EST Hospital Encounter HST EPIC CON UNK EDG Dustin Mcintyre MD 04/20/2009 Abstract SEP [facility] [address] [place] [address] [facility] [employer] Worker Epilepsy (HCC); Bipolar affective disorder (HCC); Depression, major (HCC); Asthma; COPD (chronic obstructive pulmonary disease) ([facility]); Hearing loss in left ear; GERD (gastroesophageal [...] PM EDT Hospital Encounter HST RADIOLOGY GRT Dustni Mcintyre MD 10/14/2002 3:23 PM EDT - [...] Hospital Encounter HST EPIC CON UNK EDG [facility] 05/26/1997 6:49 PM EST - 05/26/1997 11:59 PM EST Emergency HST MAJOR ER EDG Tunde Ty Monroy, 12/26/1996 7:54 PM EDT - 12/26/1996 11:59 PM EDT Hospital Encounter HST EPIC CON UNK COV [facility] 10/18/1996 5:34 PM EDT - 10/18/1996 11:59 PM EDT Emergency HST EPIC CON UNK EDG Augustine Baldwin MD 10/11/1996 10:10 AM EDT - 10/11/1996 12:10 PM EDT Hospital Encounter HST SAS Jaime Grover MD 03/13/1996 6:17 PM EST - 03/13/1996 11:59 PM EST Hospital Encounter HST EPIC CON UNK COV [facility] 01/21/1996 7:05 PM EDT - 01/21/1996 11:59 PM EDT Hospital Encounter HST EPIC CON UNK COV [facility] 01/01/1996 8:11 PM EDT - 01/06/1996 2:05 PM EDT Hospital Encounter HST BH2 Rosa Clark MD 12/26/1995 8:21 AM EDT - 12/26/1995 11:59 PM EDT Hospital Encounter HST EPIC CON UNK COV [facility] 10/26/1995 9:59 PM EDT - 10/30/1995 1:44 PM EDT Hospital Encounter HST BH2 Wang Rosales MD Cohen, Raymond L 10/12/1995 7:54 PM EDT - 10/12/1995 11:59 PM EDT Hospital Encounter HST EPIC CON UNK COV [facility] 10/04/1995 9:50 PM EDT - [...] 9 Active fluticasone (FLONASE) 50 mcg/actuation Nasl Ralston, SuspensionIndicati ons:Chronic seasonal allergic rhinitis due to [...] be different from the original. Pt needs Imng per [facility] Problem Noted Date Diagnosed Date [...] Mother 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 Smoking Status as of 04/04/2025 Tobacco Use Types Packs/Day Years Used Date [...] on file Medical Devices Implanted Type Area Cement Handler Device Identifier Shelf Expiration Date Model / Serial / Lot Ranier Lupine Br W/Dual Suture Orthocord - [id number] Implanted:Qty : 1 on 01/18/2013 by Crow Love MD at [facility] Left: Shoulder J&J:ETHICON:MITE K PRDT [id number] 06/12/2015 [id number] / / [id number] Ranier Lupine Br W/Dual Suture Orthocord - [id number] Implanted:Qty : 1 on 01/18/2013 by Crow Love MD at [facility] Left: Shoulder J&J:ETHICON:MITE K PRDT [id number] 06/11/2014 [id number] / / [id number] Ranier Advance Healix 5.5 Br - [id number] Implanted:Qty : 1 on 06/20/2015 by Crow Love MD at [facility] Right: Shoulder J&J:ETHICON:MITE K PRDT 05/14/2017 [id number] / / [id number] Procedures Procedure Name Priority Date/Time Associated Diagnosis [...] meniscus of knee, current Special Needs FAX CPT;22935 [id number] POCT EKG Routine 06/08/2014 10:16 AM EST [...] AM EDT Chronic maxillary sinusitis Special Needs COLFAX CPT; 19136/18986 HEPATIC FUNCTION PANEL Routine 4 11:31 AM [...] EDT Rotator cuff (capsule) sprain Special Needs CPT;05420 [id number] [id number] MRI SHOULDER LEFT WO CONTRAST Routine 12/25/2012 [...] 946 pg/mL 06/01/2018 4:11 PM EST [facility] Folate >16.00(H) 4.50 - 16.00 ng/mL 06/01/2018 4:11 PM EST [facility] Blood VENOUS BLOOD / Unknown Venipuncture / Unknown 06/01/2018 10:14 AM EST 06/01/2018 10:14 AM EST Narrative [facility] - 06/01/2018 4:11 PM EST Ingestion of roxanna doses of biotin (>5 mg/day) taken within 8 hours of drawing blood sample can interfere with this immunoassay test. us Dustin Mcintyre MD CHEMISTRY ORDERABLES F inal Result [facility] [address] [facility] , [place] [address] * TSH REFLEX (06/01/2018 10:14 AM EST) TSH Reflex 1.640 0.270 - 4.200 mcIU/mL 06/01/2018 3:53 PM EST [facility] Blood VENOUS BLOOD / Unknown Venipuncture / Unknown 06/01/2018 10:14 AM EST 06/01/2018 10:14 AM EST Narrative [facility] - 06/01/2018 3:53 PM EST Ingestion of roxanna doses of biotin (>5 mg/day) taken within 8 hours of drawing blood sample can interfere with this immunoassay test. Dustin Mcintyre MD CHEMISTRY ORDERABLES F inal Result Performing Organization Address [facility] Co de Phone Number [employer] [address] [place] [address] , [place] [address] * (ABNORMAL) ACUTE HEPATITIS PANEL (06/01/2018 10:14 AM EST) Only the most recent of2 resultswithin the time period is included. Pathologist [facility] Hep Bs Ag Non-Reacti ve Non-Reacti ve 06/02/2018 11:57 AM EST [employer] Hep B Core IgM Non-Reacti ve Non-Reacti ve 06/02/2018 11:57 AM EST [facility] Hep A IgM Non-Reacti ve Non-Reacti ve 06/02/2018 11:57 AM EST [facility] Hep C Ab Reactive(A ) Non-Reacti ve 06/02/2018 11:57 AM EST [employer] Comment:Reactive. Antibodies to HCV detected. >97% of specimens with high signal cutoff confirm as reactive. HCV QUANT W/RFLX TO GENOTYPE -REF LAB Blood VENOUS BLOOD / Unknown Venipuncture / Unknown 06/01/2018 10:14 AM EST 06/01/2018 10:14 AM EST Dustin Mcintyre MD CHEMISTRY ORDERABLES F inal Result Performing Organization Address [facility] Co de Phone Number [facility] [employer] [address] , [place] [address] * (ABNORMAL) CBC WITH DIFF (06/01/2018 10:14 AM EST) Only the most recent of16 resultswithin the time period is included. Pathologist [facility] WBC 6.6 3.7 - 10.3 x10(3)/mcL 06/01/2018 [...] 3:19 PM EST [facility] [place] Percent 11.4 % 06/01/2018 3:19 PM EST [...] x10(3)/mcL 06/01/2018 3:19 PM EST [facility] Comment:Automated count of m etamyelocytes, myelocytes and promyelocytes. An absolute IG <0.1 is reported as 0.0. Lymph # 2.1 1.2 - 3.9 x10(3)/mcL 06/01/2018 3:19 PM EST [facility] [place] # 0.8 0.3 - 0.9 x10(3)/[facility] 06/01/2018 3:19 PM EST [facility] Eos# 0.3 0.0 - 0.5 x10(3)/[facility] 06/01/2018 3:19 PM EST [facility] Baso # 0.0 0.0 - 0.1 x10(3)/[facility] 06/01/2018 3:19 PM EST [facility] [employer] [employer] Blood VENOUS BLOOD / Unknown Venipuncture / Unknown 06/01/2018 10:14 AM EST 06/01/2018 10:14 AM EST Dustin Mcintyre MD HEMATOLOGY ORDERABLES Final Result Performing Organization Address [facility] Co de Phone Number [facility] [employer] [address] , [place] [address] * (ABNORMAL) PHENYTOIN LEVEL TOTAL (06/01/2018 10:14 AM EST) Only the most recent of20 resultswithin the time period is included. Dilantin 9.0(L) 10.0 - 20.0 mcg/mL 06/01/2018 3:51 PM EST [facility] [employer] Blood VENOUS BLOOD / Unknown Venipuncture / Unknown 06/01/2018 10:14 AM EST 06/01/2018 10:14 AM EST Dustin Mcintyre MD CHEMISTRY ORDERABLES F inal Result Performing Organization Address [facility] Co de Phone Number [facility] [employer], [address] , [place] [address] * (ABNORMAL) COMPREHENSIVE METABOLIC PANEL [...] mL/min/1.7 3 m2 06/01/2018 3:53 PM EST [facility] GFR Non Afr Am 96 >=60 mL/min/1.7 3 m2 06/01/2018 3:53 PM EST [facility] Comment: This estimated GFR [...] CHEMISTRY ORDERABLES F inal Result [facility] [address] [facility], [place] [address] [facility] [address] [place] [address] * POCT URINALYSIS DIPSTICK (06/01/2018 9:40 AM EST) Only the most recent of4 resultswithin the time period is included. 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 SEP enterprise engineer Grav, UA 1.025 1.001 - 1.035 G/DL SEP OFFICE Blood, UA neg POS/NEG SEP OFFICE pH, UA 6.0 5.0 - 8 SEP OFFICE Protein, UA neg POS/NEG SEP OFFICE Urobilinogen, UA 1+ 0.2 - 1.0 MG/DL SEP OFFICE Leukocytes, UA neg POS/NEG SEP OFFICE Nitrite, UA neg POS/NEG SEP OFFICE UA Appear POC SEP OFFICE Lot Number [id number] SEP OFFICE Expiration Date 12/22/2019 SEP OFFICE [...] mg/dL 12/05/2017 3:59 PM EDT [facility] [employer] Comment: < 200 Desirable 200 - 239 Borderline High >= 240 High Triglyceride 316(H) <=150 mg/dL 12/05/2017 3:59 PM EDT [facility] Comment: < 150 Normal 150 - 199 Borderline High 200 - 499 High >= 500 Very High HDL 33(L) >=40 mg/dL 12/05/2017 3:59 PM EDT [employer] [employer] Comment: > 60 Optimal 40 - 60 Acceptable < 40 Low LDL Calculated 111(H) <=100 mg/dL 12/05/2017 3:59 PM EDT [employer] Non-HDL-C Calculated 174(H) <=129 mg/dL 12/05/2017 3:59 PM EDT [employer] Comment: <130 Desirable 130-159 Above Desirable 160-189 Borderline High 190-219 High >= 220 Very High Blood VENOUS BLOOD / Unknown Venipuncture / Unknown 12/05/2017 9:03 AM EDT 12/05/2017 9:03 AM EDT us Germán Bradley MD CHEMISTRY ORDERABLES Final Re sult [facility] [employer] [address] [facility] , [address] [place] [id number] * DRUGS OF ABUSE, SCREEN ONLY, URINE (06/30/2017 10:59 PM EDT) Only the most recent of2 resultswithin the time period is included. 6 AM (Heroin) Absent Absent 06/30/2017 11:29 PM EDT [facility] Amphetamines Absent Absent 06/30/2017 11:29 PM EDT [facility] Barbiturates Absent Absent 06/30/2017 11:29 PM EDT [facility] Benzodiazepines Absent Absent 8 11:29 PM EDT [facility] Buprenorphine Absent Absent 06/30/2017 11:29 PM EDT [facility] Cannabinoid Metabolite Absent Absent 06/30/2017 11:29 PM EDT [facility] Cocaine Metabolite Absent Absent 2017 11:29 PM EDT [facility] Methadone and Metabolite Absent Absent 06/30/2017 11:29 PM EDT [facility] Opiate Absent Absent 06/30/2017 11:29 PM EDT [facility] Oxycodone Lvl Absent Absent 06/30/2017 11:29 PM EDT [facility] Phencyclidine Absent Absent 06/30/2017 11:29 PM EDT [facility] Creatinine Ur >25.0 mg/dL 06/30/2017 11:29 PM EDT [facility] Comment: Greater than 20: Consistent with valid sample Greater than 2 but less than 20: Possible dilution Less than 2: Questionable valid sample Urine STRUCTURE OF URINARY TRACT PROPER / Unknown 06/30/2017 10:59 PM EDT 06/30/2017 11:03 PM EDT Narrative [facility] - 06/30/2017 11:29 PM [...] ORDERABLES Final Resul t Performing Organization Address [facility] de Phone Number [facility] [address] [place] [address] * EXTRA GOLD SST (06/30/2017 10:18 PM EDT) Blood VENOUS BLOOD / Unknown Venipuncture / Unknown 06/30/2017 10:18 PM EDT 06/30/2017 10:27 PM EDT Robbie Queen MD CHEMISTRY ORDERABLES Final Resul t Performing Organization Address [facility] Phone Number [facility] [address] [place] [address] * EXTRA LAVENDER (06/30/2017 10:18 PM EDT) Blood VENOUS BLOOD / Unknown Venipuncture / Unknown 06/30/2017 10:18 PM EDT 06/30/2017 10:27 PM EDT Robbie Queen MD HEMATOLOGY ORDERABLES Final Resu lt Performing Organization Address [facility] de Phone Number [facility] [address] [place] [address] * EXTRA LIGHT BLUE (06/30/2017 10:18 PM EDT) Only the most recent of2 resultswithin the time period is included. Blood VENOUS BLOOD / Unknown Venipuncture / Unknown 06/30/2017 10:18 PM EDT 06/30/2017 10:27 PM EDT Robbie Queen MD HEMATOLOGY ORDERABLES Final Resu lt Performing Organization Address [facility] Phone Number [facility] [address] [place] [address] * (ABNORMAL) ALCOHOL MEDICAL (06/30/2017 10:18 PM EDT) Only the most recent of2 resultswithin the time period is included. Alcohol Medical 36(H) <=10 mg/dL 06/30/2017 10:39 PM EDT [facility] Blood VENOUS BLOOD / Unknown Venipuncture / Unknown 06/30/2017 10:18 PM EDT 06/30/2017 10:26 PM EDT us Robbie Queen MD CHEMISTRY ORDERABLES Final Resul t Performing Organization Address [facility] de Phone Number [facility] [address] [place] [address] * ACETAMINOPHEN LEVEL (06/30/2017 10:18 PM EDT) Only the most recent of2 resultswithin the time period is included. Acetaminophen Lvl <15.0 mcg/mL 018 11:16 PM EDT [facility] Blood VENOUS BLOOD / Unknown Venipuncture / Unknown 06/30/2017 10:18 PM EDT 06/30/2017 10:27 PM EDT Narrative [facility] - 06/30/2017 11:16 PM EDT Therapeutic: 10-30 mcg/ml Supratherapeutic: > 35 mcg/ml Toxic: > 150 mcg/ml (4h post ingestion) > 75 mcg/ml (8h post ingestion) > 40 mcg/ml (12h post ingestion) us Holly Brannon APRN CHEMISTRY ORDERABLES Final R esult Performing Organization Address [facility] de Phone Number [facility] [address] [place] [address] * SALICYLATE LEVEL (06/30/2017 10:18 PM EDT) Only the most recent of2 resultswithin the time period is included. Salicylate <0.3 <=0.3 mg/dL 06/30/2017 11:16 PM EDT [facility] Blood VENOUS BLOOD / Unknown Venipuncture / Unknown 06/30/2017 10:18 PM EDT 06/30/2017 10:27 PM EDT us Holly Brannon HIGH WORKER CHEMISTRY ORDERABLES Final R esult [facility] [address] [place] [address] * (ABNORMAL) BASIC METABOLIC PANEL (06/30/2017 10:18 PM EDT) Only the most recent of5 resultswithin the time period is included. Sodium 142 136 - 145 mmol/L 06/30/2017 11:16 PM EDT [facility] Potassium 4.1 3.5 - 5.0 mmol/L 06/30/2017 11:16 PM EDT [facility] Chloride 101 98 - 107 mmol/L 06/30/2017 11:16 PM EDT [facility] Total CO2 26 22 - 29 mmol/L 06/30/2017 11:16 PM EDT [facility] Anion Gap 15 7 - 16 mmol/L 06/30/2017 11:16 PM EDT [facility] Calcium 9.4 8.6 - 10.2 mg/dL 06/30/2017 11:16 PM EDT [facility] Glucose Lvl 115(H) 74 - 100 mg/dL 06/30/2017 11:16 PM EDT [facility] BUN 12 6 - 20 mg/dL 06/30/2017 11:16 PM EDT [facility] Creatinine 0.96 0.67 - 1.30 mg/dL 06/30/2017 11:16 PM EDT [facility] GFR Afr Am 110 mL/min/1.7 3 m2 06/30/2017 11:16 PM EDT [facility] GFR Non Afr Am 95 mL/min/1.7 3 m2 06/30/2017 11:16 PM EDT [facility] Comment: GFR Afr Am [...] Brannon APRN CHEMISTRY ORDERABLES Final R esult [facility] [address] [place] [id number] * XR WRIST RIGHT PA LATERAL AND OBLIQUE (05/26/2017 9:46 PM EST) Anatomical Region Laterality Modality Wrist Radiographic Thao ging 05/26/2017 9:46 PM EST Impressions 05/26/2017 10:07 PM EST Negative exam. Narrative 05/26/2017 10:07 PM EST XR WRIST RIGHT PA LATERAL AND OBLIQUE, 05/26/2017 9:46 PM CLINICAL HISTORY: -MEDICAL CLEARANCE FOR GROUP HOME COMPARISON: None. PROCEDURE COMMENTS: 4 routine views of the right wrist. FINDINGS: No fracture, dislocation or radio-opaque foreign body. Navicular fractures can be occult on initial radiographs. If there is snuff-box tenderness consider follow-up radiographs in 10 to 14 days. Procedure Note Mauro Rosas MD - 05/26/2017 XR WRIST RIGHT PA LATERAL AND OBLIQUE, 05/26/2017 9:46 PM CLINICAL HISTORY: -MEDICAL CLEARANCE FOR GROUP HOME COMPARISON: None. PROCEDURE COMMENTS: 4 routine views of the right wrist. FINDINGS: No fracture, dislocation or radio-opaque foreign body.Navicular fractures can be occult on initial radiographs. If there is snuff-boxtenderness consider follow-up radiographs in 10 to 14 days. IMPRESSION: Negative exam. us Gómez D Lawton HIGH WORKER IMG DIAGNOSTIC IMAGING OR DERABLES Final Result [...] 9:45 PM CLINICAL HISTORY: -MEDICAL CLEARANCE FOR GROUP HOME COMPARISON: None. PROCEDURE COMMENTS: 3 routine radiographs [...] 9:45 PM CLINICAL HISTORY: -MEDICAL CLEARANCE FOR GROUP HOME COMPARISON: None. PROCEDURE COMMENTS: 3 routine radiographs [...] of fourth finger as described. Gómez Reis HIGH WORKER IMG DIAGNOSTIC IMAGING OR DERABLES Final Result * EXTRA DORADO URINE CX (04/16/2017 1:05 AM EST) Urine URINE SPECIMEN COLLECTION, CLEAN CATCH / Unknown 04/16/2017 1:05 AM EST 04/16/2017 1:17 AM EST Jose Carlos Rasheed MD MICROBIOLOGY - GENERAL ORDERAB LES Final Result [facility] [address] [place] [address] * URINALYSIS (04/16/2017 1:05 AM EST) Only the most recent of3 resultswithin the time period is included. UA Color Yellow 04/16/2017 1:20 AM [facility] UA Appear Clear Clear 04/16/2017 1:20 AM EST [facility] UA Glucose Negative Negative mg/dL 04/16/2017 1:20 AM EST [facility] UA Ketones Negative Negative mg/dL 04/16/2017 1:20 AM EST [facility] UA Blood Negative Negative 04/16/2017 1:20 AM [facility] UA pH 6.0 5.0 - 8.0 pH 04/16/2017 1:20 AM [facility] UA Protein Negative Negative mg/dL 04/16/2017 1:20 AM [facility] UA Urobilinogen 0.2 <=1 E.U./dL 04/16/19 18 1:20 AM [facility] UA Nitrite Negative Negative 04/16/2017 1:20 AM [facility] UA Leuk Est Negative Negative 04/16/2017 1:20 AM [facility] UA Spec Grav 1.025 1.001 - 1.035 no units 04/16/2017 1:20 AM [facility] Comment: Reference range valid for random specimens only. Urine URINE SPECIMEN COLLECTION, CLEAN CATCH / Unknown 04/16/2017 1:05 AM EST 04/16/2017 1:17 AM EST Jose Carlos Rasheed MD URINE ORDERABLES Final Result [facility] [address] [place] [address] * LDL, CALCULATED (01/07/2017 10:30 AM EDT) Only the most recent of4 resultswithin the time period is included. Pathologist [facility] [place] LDL Calculated 51 <=100 mg/dL [facility] Comment: < 100 Optimal 100 - 129 Near or above optimal 130 - 159 Borderline High 160 - 189 High >= 190 Very High Blood specimen (specimen) 01/07/2017 10:30 AM EDT 01/07/2017 3:48 PM EDT Dustin Mcintyre MD CHEMISTRY ORDERABLES F inal Result Performing Organization Address [facility] Co de Phone Number [facility] [address] [place] [address] * (ABNORMAL) DIFFERENTIAL (01/07/2017 10:30 AM EDT) Only the most recent of11 resultswithin the time period is included. Neut Percent 48.5 % [facility] Lymph Percent 34.1 % [facility] [place] Percent 9.2 % [facility] Eos Percent 6.9 % [facility] Baso Percent 1.3 % [facility] Neut# 3.9 1.8 - 7.7 x10(3)/mcL [facility] Lymph# 2.7 0.6 - 4.8 x10(3)/mcL [facility] [place]# 0.7 0.0 - 1.3 x10(3)/[facility] Eos# 0.6(H) 0.0 - 0.5 x10(3)/[facility] Baso# 0.1 0.0 - 0.2 x10(3)/[facility] Blood specimen (specimen) 01/07/2017 10:30 AM EDT 01/07/2017 3:48 PM EDT Dustin Mcintyre MD HEMATOLOGY ORDERABLES Final Result Performing Organization Address [facility]/ZIP Co de Phone Number [facility] [address] [place] [address] * XR KNEE RIGHT AP LAT INT [...] EST) 05/06/2016 8:51 AM EST Impressions [facility] - 05/06/2016 8:51 AM EST [...] Bradley MD PFT ORDERABLES Final Result [facility] [address] [place] [address] * POCT EKG (04/29/2016 2:23 PM EST) Only the most recent of4 resultswithin the time period is included. 04/29/2016 2:23 PM EST Impressions [facility] - 04/29/2016 2:23 PM EST nsr No ischemia Normal ekg Germán Bradley MD POINT OF CARE CARDIOLOGY Zayra l Result Performing Organization Address [facility]/ZIP Co de Phone Number SEP OFFICE * SYPHILIS SCREEN WITH REFLEX RPR QUANT (04/01/2016 4:37 PM EST) TREP(SYPHILIS) AB INDEX <0.10 <=1.09 Index Value [facility] Comment: <0.90 - Negative 0.90 to 1.00 - Equivocal Patients with equivocal results should be retested in 7-14 days. >=1.10 - Positive NOTE: All equivocal and positive results will be reflexed to Quantitative Non-Treponemal(RPR)test. Blood specimen (specimen) UPPER LIMB STRUCTURE / Unknown 04/01/2016 4:37 PM EST 04/01/2016 8:41 PM EST Germán Bradley MD CHEMISTRY ORDERABLES Final Re sult Performing Organization Address [facility]/[place] [address] * XR LUMBAR SPINE AP AND LATERAL [...] abnormality identified in the lumbar spine. Result [facility] Michelle Shirley MD [facility] IMAGING ORDERABLE S Final Result * [facility] LOWER EXTREMITY VENOUS LEFT (06/23/2015 6:16 PM [...] right commonfemoral vein. Wang Harmon MD Result [facility] Elina Hall MD G VASCULAR ORDERABLES Fin al Result * SCANNED RHYTHM STRIPS (06/22/2015 11:55 PM EST) Only the most recent of3 resultswithin the time period is included. Anatomical Region Laterality Modality Other 06/22/2015 11:5 5 PM EST Result [facility] Unknown Unknown IM ECG ORDERABLES Final Result * PERIPHERAL BLOCK (06/20/2015 7:47 AM EST) Narrative [facility] - 06/20/2015 7:47 AM EST [...] bill Result - Final Performing Organization Address [facility] [place] [address] * LDL DIRECT (04/20/2015 9:44 AM EST) Only the most recent of5 resultswithin the time period is included. LDL Direct 65 <=100 mg/dL [facility] Comment: < 100 Optimal 100 - 129 Near or above optimal 130 - 159 Borderline High 160 - 189 High >= 190 Very High Blood specimen (specimen) 04/20/2015 9:44 AM EST 04/20/2015 3:48 PM EST us Germán Bradley MD CHEMISTRY ORDERABLES Final Re sult Performing Organization Address [facility] Co de Phone Number [facility] [address] [place] [address] * MRI SHOULDER RIGHT WO CONTRAST (03/22/2015 [...] joint changeswithout undersurface spur. Dustin Mcintyre MD [facility] MRI ORDERABLES Fin al Result * CBC (11/04/2014 10:36 AM EDT) Only the most recent of4 resultswithin the time period is included. WBC 7.2 4.0 - 11.0 x10(3)/mcL [facility] RBC 4.86 4.30 - 5.81 x10(6)/mcL [facility] Hgb 16.1 13.5 - 17.1 gm/dL [facility] Hct 47.6 38.9 - 51.6 % [facility] MCV 97.9 82.5 - 99.8 fL [facility] MCH 33.1 27.0 - 34.3 pg [facility] MCHC 33.8 32.1 - 35.3 gm/dL [facility] RDW 13.6 11.5 - 15.0 % [facility] Platelet 211 144 - 423 x10(3)/mcL [facility] MPV 9.2 6.8 - 10.8 fL [facility] Blood specimen (specimen) UPPER LIMB STRUCTURE / Unknown 11/04/2014 10:36 AM EDT 11/04/2014 4:05 PM EDT us Dustin Mcintyre MD HEMATOLOGY ORDERABLES Final Result Performing Organization Address City/State/[facility] Co de Phone Number [facility] [address] [place] [address] * SCANNED PATHOLOGY REPORT (09/20/2014 5:07 PM [...] EST 03/08/2014 3:39 PM EST Narrative [facility] - 03/16/2014 8:03 AM EST [employer]-See attached Fax to [phone] us Los Gordon MD HEMATOLOGY ORDERABLES Edited Result - Final [facility] [address] [place] [address] * SCANNED PRE/POST PROCEDURES (02/08/2014 1:26 AM [...] Report Accession Number Collected Date/Time Received Date/Time [id number] 02/04/14 08:20 EDT 02/04/14 12:54 EDT Diagnosis 1) Right maxillary ethmoid sinus contents: - Acute and chronic sinusitis. - Negative for malignancy. 2) Left maxillary sinus biopsy: - Acute and chronic sinusitis. - Negative for malignancy. Lisset Saldana (Electronicall y signed by) Verified: 02/07/2014 [facility] Clinical Information Chronic maxillary sinusitis. Gross [...] and the findings corroborate the diagnosis. [facility] 02/04/2014 8:20 AM EDT us Los Gordon MD PATHOLOGY ORDERABLES Final R esult [facility] [address] [place] [address] * FUNGUS CULTURE-OTHER (02/04/2014 8:00 AM EDT) Final No growth of fungus at 4 weeks [facility] Specimen from nose (specimen) NASAL STRUCTURE / Unknown 02/04/2014 8:00 AM EDT 02/04/2014 10:08 AM EDT Comment:LEFT MAX SINUS SWAB Narrative [facility] - 03/04/2014 4:01 PM EST Aerobic, anaerobic, fungus culture from left maxillary sinus Los Gordon MD MICROBIOLOGY - GENERAL ORDER MK Final Result Performing Organization Address City/[facility]/ZIP Co de Phone Number [facility] [address] [place] [address] * WOUND CULTURE (02/04/2014 8:00 AM EDT) GS No slide sent/smear made after culture inoculated Rare WBC's Rare RBC's Rare Gram positive cocci [facility] Final Moderate growth of Staphylococcus aureus Sparse growth of Coagulase negative staphylococci No further workup Moderate growth of beta hemolytic Streptococci suspect Streptococcus anginosus group No further workup [facility] Organism Staphylococcus aureus [facility] Specimen from nose (specimen) NASAL STRUCTURE / Unknown 02/04/2014 8:00 AM EDT 02/04/2014 10:08 AM EDT Comment:LEFT MAX SINUS SWAB Narrative [facility] - 02/07/2014 9:08 AM EDT [...] - GENERAL ORDER MK Final Result [facility] [address] [place] [address] * ANAEROBIC CULTURE (02/04/2014 8:00 AM EDT) Final No anaerobic growth at 5 days [facility] Specimen from nose (specimen) NASAL STRUCTURE / Unknown 02/04/2014 8:00 AM EDT 02/04/2014 10:08 AM EDT Comment:LEFT MAX SINUS SWAB Narrative [facility] - 02/10/2014 5:01 PM EDT Aerobic, anaerobic, fungus culture from left maxillary sinus Los Gordon MD MICROBIOLOGY - GENERAL ORDER MK Final Result Performing Organization Address [facility] Co de Phone Number [facility] [address] [place] [address] * HEPATIC FUNCTION PANEL (01/24/2014 11:31 AM EDT) Only the most recent of2 resultswithin the time period is included. Total Protein 6.8 6.4 - 8.3 gm/dL [facility] Albumin 4.2 3.5 - 5.2 gm/dL [facility] Bili Direct <0.2 0.0 - 0.3 mg/dL [facility] Bili Total 0.1 0.1 - 1.4 mg/dL [facility] AST 40 <=40 IU/L [facility] ALT 38 <=41 IU/L [facility] Alk Phos 106 40 - 129 IU/L [facility] Blood specimen (specimen) UPPER LIMB STRUCTURE / Unknown 01/24/2014 11:31 AM EDT 01/24/2014 2:38 PM EDT us Koffi Jay MD CHEMISTRY ORDERABLES Edited R esult - Final Performing Organization Address City/[facility] Co de Phone Number [facility] [address] [place] [address] * XR WRIST LEFT PA LATERAL AND [...] AM EDT) Total PSA 0.66 ng/mL [facility] Comment: 2008 REPLACED BY [facility] Best Practice Statement Guidelines-Age Adjusted Reference Intervals: Age Range Whites Americans Americans 40-49 years 0-2.5 ng/mL 0-2.0 ng/mL 0-2.0 ng/mL 50-59 years 0-3.5 ng/mL 0-4.0 ng/mL 0-3.0 ng/mL 60-69 years 0-4.5 ng/mL 0-4.5 ng/mL 0-4.0 ng/mL 70-79 years 0-6.5 ng/mL 0-5.5 ng/mL 0-5.0 ng/mL [facility] uses the [employer] Machine Feeder Total PSA assay, which is approved as [...] MD CHEMISTRY ORDERABLES F inal Result [facility] [address] [place] [address] * MRI BRAIN W WO CONTRAST (07/23/2013 [...] be called to his cell phone at [phone]. This call was not made by radiology. [...] results be called to his cell phone [phone]. This call was not made by radiology. Richards Germán Bradley MD [facility] ORDERA BLES Final Result * [...] trauma. IMPRESSION: Negative exam. Mariaelena Rossi MD [facility] ORDER MK Final Result * [...] evaluate orTMJ disc problems. Germán Bradley MD [facility] ORDERA BLES Final Result * HEMOGLOBIN A1C (12/19/2010 11:00 AM EDT) Hgb A1c 5.3 <=7.0 % [facility] Comment: Initial Diagnostic Criteria < 5.7 % Normal 5.7 - 6.4 % At risk for diabetes mellitus >= 6.5 % Consistent with diabetes mellitus Diabetes monitoring Target Value (ADA recommended): < 7 % Blood specimen (specimen) UPPER LIMB STRUCTURE / Unknown 12/19/2010 11:00 AM EDT 12/19/2010 4:04 PM EDT us Germán Bradley MD CHEMISTRY ORDERABLES Final Re sult [facility] [address] [place] [address] * XR ANKLE RIGHT AP LATERAL AND [...] H pylori IgG 0.44 Index Value [facility] Comment: I.V. = Index Value [...] ORDERABLES Final R esult Performing Organization Address City/State/[facility] Co de Phone Number [facility] [address] [place] [address] * SCANNED EKG (11/06/2009 12:00 AM EDT) Anatomical Region Laterality Modality Other Narrative 11/06/2009 9:16 AM EDT Ordered by an unspecified provider. Transcriptions Unknown, Unknown - 11/06/2009 5:12 AM EDT Unknown Unknown IMG ECG ORDERABLES Final Result * TROPONIN-I (11/05/2009 12:01 AM EDT) Troponin-I 0.01 ng/mL [facility] Comment: Note: New reference ranges [...] DO CHEMISTRY ORDERABLES Final Re sult [facility] [address] [place] [address] * XR CHEST PORTABLE GC (11/04/2009 11:28 [...] normal limits. IMPRESSION- Normal portable chest . Technology Analyst- ALBERT CRAIG MD Reading Physician- ALBERT [...] normal limits. IMPRESSION- Normal portable chest . Technology Analyst- ALBERT CRAIG MD Reading Physician- ALBERT CRAIG MD Released Date Time- 11/04/09 2352 Ty Griffiths DO IMG [facility] RAD HISTORICAL F inal Result * (ABNORMAL) PHENOBARBITAL LEVEL (11/04/2009 11:27 PM EDT) Phenobarbital Lvl <3.0(L) 15.0 - 40.0 mcg/mL [facility] Blood specimen (specimen) 11/04/2009 11:27 PM EDT 11/05/2009 6:47 PM EDT Ty Griffiths DO CHEMISTRY ORDERABLES Final Re sult [facility] [address] [place] [address] * EK EKG REG GC (11/04/2009 11:02 PM EDT) Only the most recent of3 resultswithin the time period is included. Anatomical Region Laterality Modality Other 11/04/2009 11:0 2 PM EDT Narrative 11/06/2009 2:48 PM EDT Sinus bradycardia Normal ECG except for rate Uli FOY Released Date Time- 11/06/09 1448 Procedure Note Ty Foy - 11/06/2009 Sinus bradycardia Normal ECG except for rate Technology Analystdamaso [place] Physician- TY FOY Released Date Time- 11/06/09 1448 Ty Griffiths DO [facility] STAR CARD HISTORICAL Final Result * MR [...] 3. Degenerative changes of the AC joint. Technology Analyst- LISSETTE [place] Physician- MEMO TONG M.D. Released Date Time- 09/01/09 1124 Marcela Ding MD [facility] GARRICK Thomas Final Result * XR BILAT [...] radiographically on the right than the left. Technology Analyst- KELSEY [place] Physician- MEMO TONG M.D. Released [...] radiographically on the right than the left. Technology Analystdamaso [place] Physician- MEMO TONG M.D. 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 Technology Analyst- RADHA CEE Reading Physician- CEASAR MARROQUIN MD Released Date Time- 06/26/09 1604 Wang Ospina [facility] RAD HISTORICAL Fin al Result * [...] medial meniscus, also apparent on plain films. Technology Analyst- PETTY LEVIN Reading Physician- LEONARDO PUCKETT [...] medial meniscus, also apparent on plain films. Technology Analyst- PETTY LEVIN Reading Physician- LEONARDO PUCKETT MD Released Date Time- 09/19/082050 Germán Bradley MD [facility] HISTORICAL F inal Result * XR LOWER LEG TIBIA/FIBULA GC (09/09/2008 1:55 PM EDT) Anatomical Region Laterality Modality Other 09/09/2008 1:55 PM EDT Narrative 09/09/2008 6:39 PM EDT Examinations of the left tibia and fibula Indications- Pain. History- Pain. Two views of the left tibia and fibula demonstrate no fractures. There are no malalignments. The cortical margins are intact. Impression- No fractures. Technology Analyst- PETTY LIVINGSTON Reading Physician- MEMO TONG M.D. Released Date Time- 09/09/081949 Procedure Note Memo Tong - 06/22/2009 Examinations of the left tibia and fibula Indications- Pain. History- Pain. Two views of the left tibia and fibula demonstrate no fractures. There are no malalignments. The cortical margins are intact. Impression- No fractures. Technology Analyst- PETTY [place] Physician- MEMO TONG M.D. Released Date Time- 09/09/081949 us Germán Bradley MD [facility] HISTORICAL F inal Result * XR KNEE [...] If so, MRI evaluation may be warranted. Technology Analystdamaso Gandara- MEMO TONG M.D. Released Date Time- [...] If so, MRI evaluation may be warranted. Technology Analyst- PETTY [place] Physician- MEMO TONG M.D. Released Date Time- 09/09/08 1950 Germán Bradley MD [facility] STAR RAD HISTORICAL F inal Result * [...] The diary was blank. Carolina Campbell 12-04-07 Technology Analyst- RICK [place] Physician- ISAC BALLARD MD [...] The diary was blank. Carolina Campbell 12-04-07 Technology Analyst- RICK [place] Physician- ISAC BALLARD MD Released Date Time- 12/04/07 1013 Finesse Moore MD [facility] CARD HISTORIC AL Final Result * XR KNEE (04/02/2007 4:00 PM EST) Anatomical Region Laterality Modality Other 04/02/2007 4:00 PM EST Narrative 04/02/2007 4:26 PM EST PER /JESÚS RM7 Left knee 4 views, 04/02/2007 History- Pain following a twisting injury. Findings- There is no acute fracture or subluxation. Joint spaces and articular margins are intact. No definite joint effusion. Impression- Normal. Technology Analyst- JANA SARKAR Reading Radiologist- PINO ALBARADO Released Date Time- 04/02/07 7263 Procedure Note Pino Albarado - 06/21/2009 PER /JESÚS RM7 Left knee 4 views, 04/02/2007 History- Pain following a twisting injury. Findings- There is no acute fracture or subluxation. Joint spaces and articular margins are intact. No definite joint effusion. Impression- Normal. Technology Analyst- JANA SARKAR Reading Radiologist- PINO ALBARADO Released Date Time- 04/02/07 163 us David Palma MD [facility] HISTORICAL F inal Result * XR ANKLE [...] Impression- No fracture or dislocation, ankle joint. Technology Analyst- DALE VELÁSQUEZ Reading Radiologist- RADHA PORTER [...] Impression- No fracture or dislocation, ankle joint. Technology Analyst- DALE VELÁSQUEZ Reading Radiologist- RADHA PORTER MD. Released Date Time- 01/01/06913 Robbie Eldridge MD [facility] HISTORICAL Fi nal Result * XR FOOT [...] soft tissue swelling. Impression- 1. Negative exam. Technology Analyst- ANGELA SMITH Reading Radiologist- RADHA PORTER [...] soft tissue swelling. Impression- 1. Negative exam. Technology Analyst- ANGELA SMITH Reading Radiologist- RADHA PORTER MD. Released Date Time- 01/01/06913 Robbie Eldridge MD [facility] [employer] HISTORICAL Fi nal Result * XR SCAPULA (05/02/2004 2:06 PM EST) Anatomical Region Laterality Modality Other 05/02/2004 2:06 PM EST Narrative 05/04/2004 8:44 AM EST Right scapula, 05/02/04 History- Injury. Two views obtained of the scapula are unremarkable. No definite fracture is identified. Procedure Note Tcaho Holley - 06/20/2009 Right scapula, 05/02/04 History- Injury. Two views obtained of the scapula are unremarkable. No definite fracture is identified. Dustin Mcintyre MD [facility] [employer] HISTO RICAL Final Result * XR NOSE [...] is midline. Dustin Mcintyre MD [facility] STAR RAD HISTO RICAL Final Result Visit [...] Lifestyle No Radha Urbina CCMA Care Teams Nursing Agency Manager Relationship Specialty Start Date End Date Robbie Putnam MD [address] [facility] [place] [id number] PCP - General Family Medicine 02/07/20
[2025-04-04] MEDS: SODIUM CHLORIDE 0.9% 10ML SYR (RAD ONLY) 10 ML IV (13:20)
[2025-04-04] MEDS: IOPAMIDOL-370 (76%);100ML BOTTLE 75 ML IV (13:20)
--- NOTE | 2025-04-04 13:30 | CT_ITS ---
FINAL REPORT TECHNIQUE: Axial CT of the abdomen and pelvis, without and with IV contrast. This study was performed with techniques to keep radiation doses as low as reasonably achievable, (ALARA). Individualized dose reduction techniques using automated exposure control or adjustment of mA and/or kV according to the patient''s size were employed. CLINICAL HISTORY: Renal mass protocol COMPARISON: 08/18/2024 FINDINGS: Abdomen: Lung bases are clear. Liver has an unremarkable CT appearance. The spleen, pancreas and adrenal glands are unremarkable. Postcholecystectomy changes are noted. Precontrast imaging shows no renal stone disease. Postcontrast imaging of the kidneys shows right renal lesion is again noted, too small to definitely characterize with volume averaging preventing accurate density measurements. However, the lesion is stable measuring up to 8 mm. There is mild right renal scarring. No left renal lesion identified. No bowel obstruction or fluid collection is seen. Pelvis: The appendix is normal. Pelvic bowel loops are unremarkable. Urinary bladder is unremarkable. No pelvic mass or free fluid. No adenopathy. IMPRESSION: Stable subcentimeter right renal lesion, most likely cyst although small size limits characterization. 12-month follow-up recommended. Reviewed, Interpreted and Dictated by Jose Farley MD Transcribed by Kathy Goncalves Authenticated and [facility]
== END 2025-04-04 23:59 | disposition home or self-care (01) ==
LOC: RAD 13:00
PROVIDERS: PCP Student in an Organized Health Care Education/Training Program; Visit Provider Urology
DX: N28.1 Cyst of kidney, acquired (principal); R93.421 Abnormal radiologic findings on diagnostic imaging of right kidney
CPT/HCPCS: 74178; Q9967